=== PATIENT | female | born 1940 | race Caucasian/White ===

== ENCOUNTER → 2017-07-09 16:45 | Outpatient (CLI) | payer MEDICARE, SELFPAY ==
--- NOTE | 2017-07-09 16:51 | US_ITS ---
STUDY: RENAL ULTRASOUND - COMPLETE REASON FOR EXAM: Female, 77 years old. Stage III chronic kidney disease. TECHNIQUE: Ultrasound evaluation of the kidneys was performed with real-time and static falk-scale imaging. COMPARISON: January 21, 2010. FINDINGS: RIGHT KIDNEY: Normal location of the right kidney, which is normal in size. The right kidney measures 9.1 cm. There is a normal cortex of the right kidney. The renal cortex measures 1.2 cm. There is no right renal mass or cyst. There are no right renal calculi. There is no right hydronephrosis. DISTAL RIGHT URETER: There is non-visualization of the distal right ureter. There is no demonstrated right ureterovesical junction calculus. There is no demonstrated right ureteral jet. LEFT KIDNEY: Normal location of the left kidney, which is low normal in size. The left kidney measures 8.9 cm. There is a normal cortex of the left kidney. The renal cortex measures 1.2 cm. There is no left renal mass or cyst. There are no left renal calculi. There is no left hydronephrosis. DISTAL LEFT URETER: There is non-visualization of the distal left ureter. There is no demonstrated left ureterovesical junction calculus. There is no demonstrated left ureteral jet. BLADDER: The urinary bladder is nondistended and cannot be evaluated. There is no demonstrated mass within the urinary bladder. There are no demonstrated bladder calculi. US/Kidney and Bladder IMPRESSION: 1. Low normal size kidneys without mass or change from prior study. 2. Inability to evaluate urinary bladder secondary to nondistention. Electronically Signed: Rafal Cortez DO at 18:58 EDT Tel [phone], Service support ,
== END ==
PROVIDERS: Family Provider Family Medicine; PCP Family Medicine; Visit Provider Internal Medicine Nephrology
DX: N18.3 Chronic kidney disease, stage 3 (moderate) (principal)
CPT/HCPCS: 76770

== ENCOUNTER 2018-08-01 11:31 | Inpatient (IN) | payer MEDICARE, SELFPAY ==
[2018-08-01] VITALS (9 sets, daily range): BP systolic 125–140; BP diastolic 47–63; PULSE 36–44; RESP 16–18; TEMP 36.4–36.8; O2SAT 95–99; BMI 31.4; BMI 31.5
--- NOTE | 2018-08-01 11:49 | EKG12_ITS ---
Test Reason : ADMISSION Blood Pressure : / mmHG Vent. Rate : 036 BPM Atrial Rate : 071 BPM P-R Int : 114 ms QRS Dur : 114 ms QT Int : 632 ms P-R-T Axes : -01 035 040 degrees QTc Int : 488 ms Sinus rhythm with 2nd degree A-V block with 2:1 A-V conduction Incomplete right bundle branch block Abnormal ECG Confirmed by NICA CHAPA, DEREK ([id number]), film and video editor MICHA PIERCE ([id number]) on 08/06/2018 8:18:00 AM Referred By: Derek Brumfield Confirmed By:DEREK BRUMFIELD MD
--- NOTE | 2018-08-01 11:55 | PCM.PN.BLA ---
Progress Note Patient was seen at PCP's office, Dr Garrido on 07/31/2018. She was noted to have a low heart rate. An ECG was obtained and showed complete heart block. She will undergo Pacemaker placement on 08/02/[address] Brumfield. She was asked to hold her Aspirin on 07/31/2018.
--- NOTE | 2018-08-01 13:01 | ECHOD_ITS ---
Reason For Study: ARRHYTHMIA Procedure This was a 2D Doppler, Color Flow transthoracic echocardiogram. Exam performed portable in patient room. Left Ventricle Normal LV size. Left ventricular systolic function is normal. The estimated ejection fraction is 60 %. Stage 2 diastolic dysfunction. No regional wall motion abnormalities noted. Right Ventricle Normal RV size. Normal systolic function. Atria Normal left atrium. Normal right atrium. Mitral Valve There is mild mitral annular calcification. Mild (1+) eccentric mitral valve insufficiency. Tricuspid Valve Normal tricuspid valve. Mild (1+) tricuspid valve insufficiency. Pulmonary artery systolic pressure is 40 mmHg. Aortic Valve Trisinus/trileaflet aortic valve. Pulmonic Valve Normal pulmonic valve. Mild (1+) pulmonic valve insufficiency. Great Vessels Normal aortic root. The pulmonary artery is normal size. Normal inferior vena cava. Pericardium/Pleural No pericardial effusion. MMode/2D Measurements & Calculations LVIDd: 5.0 cm IVSd: 1.0 cm LVOT diam: 2.0 cm LVIDs: 3.0 cm LVPWd: 1.1 cm LVOT area: 3.0 cm2 RVDd: 3.9 cm FS: 39.5 % Ao root diam: 3.7 cm LAV(MOD-bp): 83.3 ml LVAd ap4: 28.7 cm2 LAV(MOD-bp) Indexed: 45.2 ml/m2 EDV(MOD-sp4): 89.1 ml LAV(MOD-sp2): 93.4 ml EDV(sp4-el): 90.0 ml LAV(MOD-sp4): 70.0 ml LVAs ap4: 16.1 cm2 ESV(MOD-sp4): 38.4 ml ESV(sp4-el): 37.9 ml EF(MOD-sp4): 56.9 % EF(sp4-el): 57.9 % SV(MOD-sp4): 50.7 ml SV(sp4-el): 52.2 ml Aortic Valve Planimetry: 1.7 cm2 LA A4 area: 22.0 cm2 LA dimension(2D): 4.3 cm RA A4 area: 18.7 cm2 Time Measurements MV dec time: 0.20 sec Doppler Measurements & Calculations MV E max terry: 102.7 cm/sec Lat Peak E' Terry: 7.7 cm/sec Med Peak E' Terry: 4.5 cm/sec MV A max terry: 128.4 cm/sec E/E' lat: 13.4 E/E' med: 23.1 MV E/A: 0.80 Ao V2 max: 215.3 cm/sec LV V1 max: 110.5 cm/sec SV(LVOT): 91.7 ml Ao max P.5 mmHg LV V1 max P.9 mmHg Ao V2 mean: 149.6 cm/sec LV V1 mean P.6 mmHg Ao mean P.0 mmHg LV V1 mean: 74.1 cm/sec Ao V2 VTI: 54.2 cm LV V1 VTI: 30.6 cm JOSE LUIS(I,D): 1.7 cm2 JOSE LUIS(V,D): 1.5 cm2 PA V2 max: 117.9 cm/sec PI end-d terry: 73.4 cm/sec TR max terry: 294.7 cm/sec TR max P.0 mmHg Interpretation Summary Normal LV size. Left ventricular systolic function is normal. The estimated ejection fraction is 60 %. Stage 2 diastolic dysfunction. Mild (1+) eccentric mitral valve insufficiency. Ordering Physician: Derek Brumfield Referring Physician: JULIO MARY Performed By: Laila Alegre, RDCS, RVT
--- NOTE | 2018-08-01 13:03 | PCM.CONS.C ---
Reason for Consult Date of Consultation: 08/01/18 Reason for Consultation: Slow heart rate History of Present Illness: The patient is a 78 year old F with a history of hypertension who says that she apparently has not been feeling well since the first of the year. She denies any dizziness no brittanie syncope no palpitations no paroxysmal nocturnal dyspnea or pedal edema. She went to her primary physician's office yesterday and was noted to be rather hypertensive. An EKG was done and she was noted to be in a slow heart rhythm. She was therefore called to see me for further recommendations and management. She has not had any previous cardiac history other than hypertension. She denies any claudication. Her electrocardiogram there was faxed to my office demonstrated 2-1 heart block. She was admitted electively to the hospital for permanent pacemaker implantation. [] Past Medical History Allergies/Adverse Reactions: Allergies morphine Allergy (Verified 12/30/16 13:02) Vomiting Home Medications: Ambulatory Orders Medication Instructions Recorded Aspirin [Aspirin, Baby] 81 mg PO DAILY@0800 12/08/16 Erythromycin Ophthalmic 1 applic LEFT EYE QHS 12/08/16 Omeprazole 40 mg PO DAILY 12/08/16 Durezol 0.05 drp INTRAOCULAR .every three 08/01/18 days acyclovir 400 mg tablet 800 mg PO DAILY tab 08/01/18 amlodipine 5 mg tablet 5 mg PO DAILY #30 tab 08/01/18 cholecalciferol (vitamin D3) 2,000 2,000 unit PO DAILY #30 cap 08/01/18 unit capsule hydrochlorothiazide 12.5 mg tablet 12.5 mg PO DAILY #30 tab 08/01/18 Past Medical History (Chronic Problems): Chronic Problems Herpes zoster of eye (Chronic) Vertigo (Chronic) Hypertension (Chronic) Surgical History: no surgical history - *Family History Maternal History Items: - - rheumatoid arthritis Paternal History Items: Heart Disease Smoking Status: Never smoker Alcohol: None Drugs: None Review of Systems - Review of Systems General: Reports: Fatigue, Malaise. Denies: Fever, Night Sweats HEENT: Denies: Vision Change Cardiovascular: Denies: Chest Discomfort, Shortness of Breath, Orthopnea, PND, Peripheral Edema, Palpitations, Lightheadedness, Dizziness, Near Syncope, Syncope Respiratory: Denies: Cough, Sputum Production, Hemoptysis Gastrointestinal: Denies: Indigestion, Hematemesis, Hematochezia, Melena Genitourinary: Denies: Dysuria, Hematuria Muscoloskeletal: Denies: Myalgias Skin: Denies: Rash Neurological: Denies: Dizziness Psychiatric: Denies: Anxiety Endocrine: Denies: Unexplained Weight Loss Hematologic/ Lymphatic: Denies: Anemia Subjectve: Pleasant lady in no apparent distress General: Awake, Alert, Oriented x 3 HEENT: PERRL, EOMI, Sclera Non Icteric Neck: Supple, Good ROM, No Lymph Node Enlargement Lungs: Clear to auscultation Cardiovascular: Regular Rhythm, Normal S1, Normal S2, No Murmurs, No Rubs, No Gallops Vascular: No Carotid Bruits, Normal Femoral Pulses, Normal Radial Pulses, Normal Dorsalis Pedal Pulse, Normal Posterior Tibial Pulses Abdomen: Bowel Sounds Present, Soft, Non Tender, No HSM, No Organomegaly Extremities: No Cyanosis, No Clubbing, No edema Musculoskeletal: No Erythema Skin: No Rashes Lymphatic: No Lymph Node Enlargement Neurological: No Focal Motor or Sensory Deficit Psych/Mental Status: Appropriate Rhythm: EKG: ECHO: Stress Test: Cardiac Cath: PCI: CT Surgery: Holter monitor: EPS: PPM: CXR: Chest CT Scan: Assessment/Plan 1. Mobitz type II heart block Patient presents and is noted to have minimally symptomatic Mobitz type II heart block. She is on no negatively chronotropic agents and my recommendation at this time would be for her to undergo permanent pacemaker implantation. The risk benefits and alternatives have been discussed with her and explained to her she understands and agrees to proceed and the above will be carried out in a.m. All questions appropriately answered and shared decision-making instituted. 2. Hypertension Patient is noted to be hypertensive. Due to the low heart rate I would suggest holding off on her antihypertensive medication. I will like to obtain an echocardiogram to assess her left ventricular function. Her medications were reviewed. Thank you for allowing me to participate in the care of your patient. Please don't hesitate to call if any issues arise
--- NOTE | 2018-08-01 13:07 | CON.PCM_ITS ---
Reason for Consult Date of Consultation: 08/01/18 Reason for Consultation: Slow heart rate History of Present Illness: The patient is a 78 year old F with a history of hypertension who says that she apparently has not been feeling well since the first of the year. She denies any dizziness no brittanie syncope no palpitations no paroxysmal nocturnal dyspnea or pedal edema. She went to her primary physician's office yesterday and was noted to be rather hypertensive. An EKG was done and she was noted to be in a slow heart rhythm. She was therefore called to see me for further recommendations and management. She has not had any previous cardiac history other than hypertension. She denies any claudication. Her electrocardiogram there was faxed to my office demonstrated 2-1 heart block. She was admitted electively to the hospital for permanent pacemaker implantation. [] Past Medical History Allergies/Adverse Reactions: Allergies morphine Allergy (Verified 12/30/16 13:02) Vomiting Home Medications: Ambulatory Orders Medication Instructions Recorded Aspirin [Aspirin, Baby] 81 mg PO DAILY@0800 12/08/16 Erythromycin Ophthalmic 1 applic LEFT EYE QHS 12/08/16 Omeprazole 40 mg PO DAILY 12/08/16 Durezol 0.05 drp INTRAOCULAR .every three 08/01/18 days acyclovir 400 mg tablet 800 mg PO DAILY tab 08/01/18 amlodipine 5 mg tablet 5 mg PO DAILY #30 tab 08/01/18 cholecalciferol (vitamin D3) 2,000 2,000 unit PO DAILY #30 cap 08/01/18 unit capsule hydrochlorothiazide 12.5 mg tablet 12.5 mg PO DAILY #30 tab 08/01/18 Past Medical History (Chronic Problems): Chronic Problems Herpes zoster of eye (Chronic) Vertigo (Chronic) Hypertension (Chronic) Surgical History: no surgical history - *Family History Maternal History Items: - - rheumatoid arthritis Paternal History Items: Heart Disease Smoking Status: Never smoker Alcohol: None Drugs: None Review of Systems - Review of Systems General: Reports: Fatigue, Malaise. Denies: Fever, Night Sweats HEENT: Denies: Vision Change Cardiovascular: Denies: Chest Discomfort, Shortness of Breath, Orthopnea, PND, Peripheral Edema, Palpitations, Lightheadedness, Dizziness, Near Syncope, Syncope Respiratory: Denies: Cough, Sputum Production, Hemoptysis Gastrointestinal: Denies: Indigestion, Hematemesis, Hematochezia, Melena Genitourinary: Denies: Dysuria, Hematuria Muscoloskeletal: Denies: Myalgias Skin: Denies: Rash Neurological: Denies: Dizziness Psychiatric: Denies: Anxiety Endocrine: Denies: Unexplained Weight Loss Hematologic/ Lymphatic: Denies: Anemia Subjectve: Pleasant lady in no apparent distress General: Awake, Alert, Oriented x 3 HEENT: PERRL, EOMI, Sclera Non Icteric Neck: Supple, Good ROM, No Lymph Node Enlargement Lungs: Clear to auscultation Cardiovascular: Regular Rhythm, Normal S1, Normal S2, No Murmurs, No Rubs, No Gallops Vascular: No Carotid Bruits, Normal Femoral Pulses, Normal Radial Pulses, Normal Dorsalis Pedal Pulse, Normal Posterior Tibial Pulses Abdomen: Bowel Sounds Present, Soft, Non Tender, No HSM, No Organomegaly Extremities: No Cyanosis, No Clubbing, No edema Musculoskeletal: No Erythema Skin: No Rashes Lymphatic: No Lymph Node Enlargement Neurological: No Focal Motor or Sensory Deficit Psych/Mental Status: Appropriate Rhythm: EKG: ECHO: Stress Test: Cardiac Cath: PCI: CT Surgery: Holter monitor: EPS: PPM: CXR: Chest CT Scan: Assessment/Plan 1. Mobitz type II heart block * Patient presents and is noted to have minimally symptomatic Mobitz type II heart block. She is on no negatively chronotropic agents and my recommendation at this time would be for her to undergo permanent pacemaker im plantation. The risk benefits and alternatives have been discussed with her and explained to her she understands and agrees to proceed and the above will be carried out in a.m. All questions appropriately answered and shared decision-making instituted. * 2. Hypertension * Patient is noted to be hypertensive. Due to the low heart rate I would suggest holding off on her antihypertensive medication. I will like to obtain an echocardiogram to assess her left ventricular function. Her medications were reviewed. * * Thank you for allowing me to participate in the care of your patient. Please don't hesitate to call if any issues arise
[2018-08-01 13:10] LABS: Hematocrit 36.6 % (37-47); Hemoglobin 11.9 g/dl (12.0-15.0); Mean Corp Hgb Conc 32.5 g/gl (32-36); Mean Corpuscular Hgb 29.3 pg (27.0-32.0); Mean Corpuscular Volume 90.1 fL (81-99); Mean Platelet Vol. 10.9 fl (6.2-12.0); Platelet Count 226 K/mm3 (150-450); RBC Distribution Width CV 13.8 % (11.6-14.6); RBC Distribution Width SD 44.6 fl (35.1-43.9); Red Blood Count 4.06 M/mm3 (4.2-5.4); Scan Indicated on CBC? Y/N NO
[2018-08-01 13:31] LABS: Prothrombin Time (Protime)PT. 13.2 SECONDS (11.7-14.9)
[2018-08-01 13:35] LABS: Anion Gap 9 (5-15); BUN 23 mg/dL (7-18); BUN/Creat Ratio 16.9 RATIO (10-20); Calcium,Total 9.1 mg/dL (8.5-10.1); Chloride 107 mmol/L (98-107); Creatinine, Serum 1.36 mg/dL (0.55-1.02); EST Glomerular Filtration Rate 40 mL/min (>60); Est Glom Filt Rate - Afr Amer 48 mL/min (>60); Glucose 103 mg/dL (74-106); Potassium 4.7 mmol/L (3.5-5.1); Sodium Level 142 mmol/L (136-145)
--- NOTE | 2018-08-01 14:30 | RAD_ITS ---
HISTORY: CHF, pre pacemaker EXAM: XR Chest 2 Views COMPARISON: 12/08/16 chest radiographs. FINDINGS: LINES/DEVICES: None. LUNGS: There are chronic interstitial changes. No pneumothorax. No consolidation or effusion. MEDIASTINUM AND CARDIOVASCULAR STRUCTURES: Cardiac silhouette not enlarged. Central airways and mediastinal contour are unremarkable. BONES AND SOFT TISSUES: Unremarkable. RAD/Chest PA and Lateral IMPRESSION: Chronic interestitial changes. No radiographic evidence of acute cardiopulmonary disease. at 0252 Reported and signed by: Kevin Michelle MD Electronically Signed: Kevin Michelle, at 2:50 EDT Tel , Service support ,
[2018-08-01 15:13] LABS: Bacteria 0 SEEN /hpf (None Seen); Mucous, Urine 0 SEEN /hpf (<or=2+); Red Blood Cells-Urine 0 SEEN /hpf (0-5)
[2018-08-01 15:14] LABS: Color, Urine Yellow (Yellow); Glucose, Dipstick Normal (Normal); Ketone-Dipstick Negative (Negative); Leukocyte Esterase-Dipstick 25 /ul (Negative); Nitrite-Dipstick Negative (Negative); Occult Blood-Urine 25 /ul (Negative); Protein-Dipstick Negative (Negative); Urine Bilirubin Dipstick Negative (Negative); Urine Clarity Clear (Clear); Urine Urobilinogen Normal (Normal)
[2018-08-01 15:32] LABS: Squamous Epithelial Cells - UA 0-5 SEEN /hpf (5-10); White Blood Cells 0-5 SEEN /hpf (0-5)
[2018-08-01] MEDS: 0.9% Normal Saline 1,000 ML 15 ML IV (17:11)
[2018-08-01] MEDS: 0.9% NaCl Peripheral Flush Adult/Peds IV (17:12)
[2018-08-01 17:45] LABS: M R Staph aureus DNA By PCR Negative (Negative); Probe Check PASS; Specimen Processing Control PASS
[2018-08-02] VITALS (18 sets, daily range): BP systolic 122–158; BP diastolic 41–100; PULSE 32–81; RESP 14–77; TEMP 36.6–36.9; O2SAT 75–100
[2018-08-02 05:16] LABS: Absolute Lymphocyte Count 2.47 X10^3/ul (0.83-4.51); Absolute Neutrophil Count 4.8 X10^3/uL (2.0-7.7); Basophil# 0.02 X10^3/uL; Basophil% 0.2 % (0-1); Eosinophil# 0.41 X10^3/uL; Hematocrit 33.8 % (37-47); Lymphocyte # 2.47 X10^3/ul (4.0); Lymphocyte % 30.1 % (19-41); Mean Corp Hgb Conc 32.5 g/gl (32-36); Mean Corpuscular Hgb 29.5 pg (27.0-32.0); Mean Corpuscular Volume 90.6 fL (81-99); Monocyte# 0.54 X10^3/uL; Monocyte% 6.6 % (0-10); Neutrophil # 4.75 X10^3/uL (2.7-7.7); Platelet Count 210 K/mm3 (150-450); RBC Distribution Width CV 13.9 % (11.6-14.6); Red Blood Count 3.73 M/mm3 (4.2-5.4); White Blood Count 8.2 K/mm3 (4.4-11.0)
[2018-08-02 05:25] LABS: Anion Gap 8 (5-15); BUN 19 mg/dL (7-18); Calcium,Total 8.8 mg/dL (8.5-10.1); Chloride 110 mmol/L (98-107); Creatinine, Serum 1.27 mg/dL (0.55-1.02); EST Glomerular Filtration Rate 43 mL/min (>60); Est Glom Filt Rate - Afr Amer 52 mL/min (>60); Estimated Creatinine Clearance 29.71 ml/min; Glucose 94 mg/dL (74-106); Sodium Level 144 mmol/L (136-145)
[2018-08-02 05:26] LABS: International Normalized Ratio 1.1; Prothrombin Time (Protime)PT. 13.7 SECONDS (11.7-14.9)
[2018-08-02 05:27] LABS: Partial Thromboplast Time 28.5 Seconds (24.1-36.2)
[2018-08-02 05:37] LABS: POSITIVE COUNT NO; POSITIVE DIFFERENTIAL NO; POSITIVE MORPHOLOGY NO
--- NOTE | 2018-08-02 05:55 | EKG12_ITS ---
Test Reason : AM EKG Blood Pressure : / mmHG Vent. Rate : 033 BPM Atrial Rate : 066 BPM P-R Int : 140 ms QRS Dur : 122 ms QT Int : 610 ms P-R-T Axes : 042 040 054 degrees QTc Int : 451 ms Sinus rhythm with 2nd degree A-V block with 2:1 A-V conduction Right bundle branch block Abnormal ECG When compared with ECG of 01-AUG-2018 13:03, MANUAL COMPARISON REQUIRED, DATA IS UNCONFIRMED Confirmed by NICA CHAPA, DEREK ([id number]), technical writer and editor MICHA PIERCE ([id number]) on 08/06/2018 8:15:57 AM Referred By: Derek Brumfield Confirmed By:DEREK BRUMFIELD MD
[2018-08-02] MEDS: 0.9% Normal Saline 1,000 ML 60 ML IV (08:08)
--- NOTE | 2018-08-02 11:58 | CASEMGMT ---
This RN CM attempted to complete CM assessment as pt is now inpt at this time but pt is getting pacer placed at 1200. Will attempt again later, if able. SStaten MANAS CM
--- NOTE | 2018-08-02 14:30 | CL.IE_ITS ---
Patient: SOHAIL ALCARAZ Study Date: 08/02/2018 Performing: Derek Brumfield MD : [id number] Age: 78 Gender: female PROCEDURES PERFORMED [id number] PACER INSERT+DUAL LEADS INDICATIONS Mobitz (type II) AV block PROCEDURE DETAILS The patient was brought to the Catheterization Lab in the postabsorptive nonsedated state. Infor med consent was obtained prior to the procedure. Local anesthetic was given subcutaneously to the le ft subclavian region with Lidocaine 2%. Access was achieved and a guidewire was advanced into the lef t subclavian vein. Incision was made to the left subclavicular area. A peel-away sheath was inserted into the left subclavian vein. PPM ventricular lead was inserted / positioned to right ventricular ap ex. PPM ventricular lead testing performed. PPM ventricular lead testing performed. The sheath was th en removed. A peel-away sheath was inserted into the left subclavian vein. PPM atrial lead was insert ed / positioned to the right atrial appendage. PPM atrial lead testing performed. The sheath was then removed. The Atrial lead sutured in place with 3-0 Silk. The Ventricular PM lead sutured in place wi th 3-0 Silk. Device pocket was irrigated with antibiotic. PPM generator was attached to the lead(s) and inserted into the pocket. PPM generator was then interrogated by the tool programmer. Subc utaneous closure was completed with 3-0 Vicryl. Skin closure was completed with 4-0 Vicryl. Steri-str ips applied to left subclavicular incision. Instrument, sponge, and needle counts were noted to be no rmal. The patient tolerated the procedure well. Estimated Blood Loss: 10 ml's IMPLANTED / EX-PLANTED DEVICES IMPLANTED DEVICE(S): PPM Ventricular lead - Dental Manager: [place] [employer], Model # [id number] 52 cm , Serial # [id number] PPM Atrial lead - Dental Manager: [place] [employer], Model # 7740 45 cm , Serial # [id number] PPM Generator - Dental Manager: .[employer], Model # [id number] , Serial # [id number] DEVICE PARAMETERS ATRIAL LEAD PARAMETERS: P wave- 3.1 (mV) Current- 0.9 (mA) threshold- 0.6 (V) impedence- 723 (OHMS) VENTRICULAR LEAD PARAMETERS: Current- 0.5 (mA) threshold- 0.4 (V) impedence- 844 (OHMS) R wave- 12.2 (mV) DEVICE PARAMETERS: Mode- DDD Lower rate- 60 Upper rate- 130 CONCLUSIONS / RECOMMENDATIONS Device Conclusions: Successful implantation of a dual chamber pacemaker Device Recommendations: Follow up with Primary Care Physician PROCEDURE MEDICATIONS Versed 1 mg IV Fentanyl 25 mcg IV Fentanyl 25 mcg IV Oxygen: 2 L/min via nasal cannula Signed By Derek Brumfield MD On 08/02/2018 14:29:08 Derek Brumfield MD
[2018-08-03 03:00] VITALS: PULSE 74
[2018-08-03 03:18] VITALS: BP 152/84; PULSE 68; RESP 18; TEMP 36.7; O2SAT 96
[2018-08-03 03:30] VITALS: O2SAT 96
--- NOTE | 2018-08-03 04:50 | RAD_ITS ---
HISTORY: post pacemaker complete heart block pneumothoraxpt unable to lift lt arm EXAM:XR Chest 2 Views COMPARISON: 08/01/2018 FINDINGS: EKG leads in place. Left subclavian dual-chamber transvenous pacemaker with electrode tips in the region of the right atrium and right ventricle. No pneumothorax. Borderline cardiomegaly. Chronic lung disease with upper lobe emphysema and bilateral interstitial fibrosis, worse within the mid and lower lung zones. Biapical stable mild scarring. No acute infiltrate. No vascular congestion or pleural effusion. Atherosclerotic thoracic aorta. RAD/Chest PA and Lateral IMPRESSION: 1. The pacemaker electrodes appear in appropriate position. Negative for pneumothorax. 2. Chronic lung disease with emphysema and interstitial fibrosis. No definite acute disease. at 0544 Reported and signed by: Jim Muñoz MD Electronically Signed: Jim Muñoz, at 5:43 EDT Tel , Service support ,
[2018-08-03 07:01] VITALS: PULSE 72
[2018-08-03 09:15] VITALS: BP 157/80; PULSE 78; RESP 16; TEMP 36.5; O2SAT 94
--- NOTE | 2018-08-03 09:17 | PN.CARD_ITS ---
Subjectve: Patient seen and evaluated. Appears to be doing well. Objective: Vital Signs Temp Pulse Resp BP Pulse Ox 98.0 F 72 18 152/84 H 96 08/03/18 03:18 08/03/18 07:01 08/03/18 03:18 08/03/18 03:18 08/03/18 03:30 Oxygen Delivery Method Room Air Weight: 177 lb 11.081 oz Body Mass Index (BMI) 31.4 Intake and Output for Last 24 Hours 08/01/18 08/02/18 08/03/18 23:59 23:59 23:59 Intake Total 298 / 298 218 / 218 Balance 298 / 298 218 / 218 General: Awake, Alert, Oriented x 3 HEENT: PERRL, EOMI, Sclera Non Icteric Neck: Supple, Good ROM, No Lymph Node Enlargement Lungs: Clear to auscultation Cardiovascular: Regular Rhythm, Normal S1, Normal S2, No Murmurs, No Rubs, No Gallops Vascular: No Carotid Bruits, Normal Femoral Pulses, Normal Radial Pulses, Normal Dorsalis Pedal Pulse, Normal Posterior Tibial Pulses Abdomen: Bowel Sounds Present, Soft, Non Tender, No HSM, No Organomegaly Extremities: No Cyanosis, No Clubbing, No edema Musculoskeletal: No Erythema Skin: No Rashes Lymphatic: No Lymph Node Enlargement Neurological: No Focal Motor or Sensory Deficit Rhythm: EKG: ECHO: Stress Test: Cardiac Cath: PCI: CT Surgery: Holter monitor: EPS: PPM: CXR: Chest CT Scan: Medical Necessity - Tobacco Use Smoking Status: Never smoker Assessment/Plan 1. Mobitz type II heart block * Patient presents and is noted to have minimally symptomatic Mobitz type II heart block. * She underwent permanent pacemaker implantation uneventfully. Chest x-ray demonstrates adequate placement of the pacemaker and the pacemaker was interrogated today and noted to be functioning well. She will be discharged for outpatient follow-up on August 09 at 10 AM. 2. Hypertension * Patient is noted to be hypertensive. Her ejection fraction was noted to be normal and she will continue with her antihypertensive medications when she goes home. * * Thank you for allowing me to participate in the care of your patient. Please don't hesitate to call if any issues arise
--- NOTE | 2018-08-03 09:19 | DCINST_ITS ---
Discharge Diet: No Restrictions Discharge Activity: May Not Drive Call your doctor if your incision/area has: Continuous Slow Oozing, Sudden Increased Bleeding, Increased Pain/ Swelling, Increased Redness, Foul Smelling Discharge, Swelling at the incision site Call your doctor if you observe: Fever of 101 or Higher, Shortness of breath, Dizziness, Fainting spells, Swelling in the ankles, Chest pain, Prolonged hiccoughing, Increased palpitations (irregular heartbeat) Suture Line Care: Avoid Pulling/Pushing, Avoid Pinching/Bending Cleanse incision/area with: Do not get Incision Wet, Keep Dressing Clean & Dry Additional Dressing/Incision Instructions:: When dressing is removed, wash and dry incision. Keep covered with a light bandage if it is rubbing against your clothing. Do not cover the incision with an airtight bandage. Change the bandage daily. Do not remove steri strips. The strips will fall off on their own. Additional Instructions: Signs and Symptoms to Report to Your Doctor at Once - call your doctor's office or Doctor's Registry ([phone]) Call 911 or go to the nearest Emergency Department if you feel you need urgent care. *Infection (fever, increased redness or swelling at the incision site, drainage from the incision increased pain at the pacemaker site) *Shortness of breath *Dizziness *Fainting spells *Swelling in the ankles *Chest pain *Prolonged hiccoughing *Increased palpitaitons (irregular heartbeat) Medications: Take your pain medication as directed. Refer to your discharge instruction sheet for a list of medications you are to take. Allergies/Adverse Reactions: Allergies morphine Allergy (Verified 12/30/16 13:02) Vomiting Medications to take at Discharge Aspirin [Aspirin, Baby] 81 mg PO DAILY@0800 12/08/16 Erythromycin Ophthalmic 1 applic LEFT EYE QHS 12/08/16 Omeprazole 40 mg PO DAILY 12/08/16 Durezol 0.05 drp INTRAOCULAR .every three days 08/01/18 Meclizine HCl 25 mg PO TID PRN PRN 08/01/18 Propylene Glycol [Systane Balance] 2 drop LEFT EYE 4X/DAY PRN PRN 08/01/18 acyclovir 400 mg tablet 800 mg PO DAILY tab 08/01/18 cholecalciferol (vitamin D3) 2,000 unit capsule 2,000 unit PO DAILY #30 cap 08/01/18 hydrochlorothiazide 12.5 mg tablet 12.5 mg PO DAILY #30 tab 08/01/18 Primary Care Physician: Conor Garrido III, MD [Primary Care Provider] - Test Results: Test results from this visit will be discussed in further detail at your follow- up appointment, if applicable. When: pacer clinic at 10 am Proposed Discharge Date: 08/03/18
== END 2018-08-03 10:14 | disposition home or self-care (01) | DRG 244 ==
PROVIDERS: Nurse Practitioner Family; Admitting Provider Internal Medicine Cardiovascular Disease; Family Provider Family Medicine; PCP Family Medicine; Referring Provider Internal Medicine Cardiovascular Disease; Visit Provider Internal Medicine Cardiovascular Disease
DX: I44.1 Atrioventricular block, second degree; I10 Essential (primary) hypertension
CPT/HCPCS: 33208; 36415; 71046; 80048; 81001; 85025; 85027; 85610; 85730; 87641; 93005; 93306; 99152; 99153; J7030; J7050; A4216; C1894

== ENCOUNTER 2018-11-16 08:35 | Inpatient (IN) | payer MEDICARE, SELFPAY ==
[2018-09-13 09:01] VITALS: BMI 30.6
[2018-11-16] VITALS (30 sets, daily range): BP systolic 96–165; BP diastolic 48–99; PULSE 67–110; RESP 11–28; TEMP 36.3–36.9; O2SAT 95–100; BMI 28.8; BMI 68.7
[2018-11-16] MEDS: 0.9% Normal Saline 1,000 ML 150 ML IV (08:40)
--- NOTE | 2018-11-16 08:40 | EKG12_ITS ---
Test Reason : REPEAT Blood Pressure : / mmHG Vent. Rate : 092 BPM Atrial Rate : 092 BPM P-R Int : 140 ms QRS Dur : 088 ms QT Int : 382 ms P-R-T Axes : 044 026 034 degrees QTc Int : 472 ms Atrial-sensed ventricular-paced rhythm Abnormal ECG Lateral Ischemia Confirmed by NICA CHAPA, MARCIAL ([id number]), loan expeditor HECTOR YOUNG ([id number]) on 11/18/2018 1:42:32 PM Referred By: Delon Longoria Confirmed By:MARCIAL YOUSIF MD
--- NOTE | 2018-11-16 08:41 | ED.VIS.CHEST ---
History of Present Illness Chief Complaint: Chest Pain Informant: Patient Onset: - - Patient reports intermittent mild heaviness for the past couple days, but heaviness significantly worse this morning. Timing: Waxes and wanes Quality: Heaviness Location: Substernal Current Severity: Severe Maximum Severity: Severe Worsened By: Nothing Relieved By: Nothing Associated Symptoms: Cough. Negative for: Dyspnea Narrative: Patient has history of pacemaker placement secondary to low heart rate. She denies history of coronary disease or cardiac stent. She states she is been having chest heaviness for the past couple of days that is been mild and waxes and wanes. This morning she had worsened chest heaviness. She denies shortness of breath. Daughter states she was coughing and had dry heaves in the car, but feels it was more likely secondary to anxiety. Prior Similar Symptoms: No CVD Risk Factors: Hypertension - Past Medical History (1) Essential (primary) hypertension Status: Chronic (2) Mobitz (type) II atrioventricular block Status: Chronic (3) Presence of permanent cardiac pacemaker Status: Chronic Comment: PPM Ventricular lead - Blankbook Forwarder: Fashion To Figure, Model # 7741 52 cm , Serial # [id number] PPM Atrial lead - Blankbook Forwarder: Fashion To Figure, Model # 7740 45 cm , Serial # [id number] PPM Generator - Blankbook Forwarder: Fashion To Figure, Model # [id number] , Serial # [id number] Past Medical History - Allergies and Home Meds Allergies/Adverse Reactions: Allergies morphine Allergy (Verified 09/13/18 09:02) Vomiting Primary Care Physician: Conor Garrido III, MD [Primary Care Provider] - Doctors: Dr. Brumfield Prior records reviewed: Yes Past Medical History: - - Reviewed Surgical History: no surgical history Smoking Status: Never smoker - Family History Maternal Family History: Family History (Last Reviewed 09/13/18 @ 09:47 by Derek Brumfield MD) Father Heart disease Family History: Reports: - - rheumatoid arthritis Paternal Family History: Family History (Last Reviewed 09/13/18 @ 09:47 by Derek Brumfield MD) Father Heart disease Family History: Reports: Heart Disease Review of Systems General: Denies: Chills, Fever Eyes: Denies: Visual changes - left, Visual changes - right ENT: Denies: Bilateral ear pain Cardiovascular: Reports: Chest pain. Denies: Palpitations, Heart racing Respiratory: Reports: Cough. Denies: Dyspnea, Sputum Gastrointestinal: Reports: Nausea. Denies: Abdominal pain, Vomiting Genitourinary: Denies: Dysuria Musculoskeletal: Denies: Arthralgias, Neck pain Skin: Denies: Rash Neurological: Denies: Headache Endocrine: Denies: Polyuria, Polydipsia Hematologic: Denies: Easy bruising Allergy: Denies: Uticaria Physical Exam Vital Signs/Narrative: Vital Signs Temp Pulse Resp BP Pulse Ox 11/16/18 08:35 97.4 F L 110 H 28 H 163/95 H 96 Inital Vital Signs reviewed: Yes General: Well nourished, Well developed Head: Normocephalic Eyes: Perrl, EOMI ENT: Moist mucous membranes Neck: Supple Cardiovascular: Tachycardia Respiratory: No distress, CTA bilaterally - Tachypneic Abdomen: Soft, Nontender Extremities: Nontender, No edema Skin: Normal color, No rash Neurological: Alert, Oriented x3 Psychological: - - Anxious Diagnostic/Tx/Re-eval Impressions Chest X-Ray 11/16/18 08:45 IMPRESSION: Degenerative changes, as described above. No demonstrated acute cardiopulmonary process. Electronically Signed: Cale Alvarado MD at 9:15 EDT , Service support , 11/16/18 08:45 Chest 1 View (Portable) [RAD] Stat Laboratory Results 11/16/18 11/16/18 08:45 08:45 WBC 10.6 RBC 4.41 Hgb 13.2 Hct 38.7 MCV 87.8 MCH 29.9 MCHC 34.1 RDW Std Deviation 42.8 RDW Coeff of Sakina 13.3 Plt Count 271 MPV 10.0 Immature Gran % (Auto) 0.400 Neut % (Auto) 55.1 Lymph % (Auto) 33.1 [place] % (Auto) 5.5 Eos % (Auto) 5.6 H Baso % (Auto) 0.3 Absolute Neuts (auto) 5.8 Absolute Lymphs (auto) 3.50 Absolute Nucleated RBC 0.00 Nucleated RBC % 0 Sodium 135 L Potassium 3.3 L Chloride 103 Carbon Dioxide 23.0 Anion Gap 9 BUN 19 H Creatinine 1.31 H Estim Creat Clear Calc 33.86 Est GFR (MDRD) Af Amer 50 L Est GFR (MDRD) Non-Af 42 L BUN/Creatinine Ratio 14.5 Glucose 171 H Calcium 9.6 Troponin I 0.121 H - EKG Initial EKG Interpretation: - - Atrial paced at 106 with borderline right bundle branch block. No obvious ST elevation noted. Follow-up EKG Interpretation: Sinus Rhythm - Repeat EKG reveals what appears to be bigeminy with ST elevation in the anterior leads. - Medical Decision Making Patient was initially given fentanyl, Zofran, and aspirin. She reported some improvement in the chest heaviness. When her troponin came back indeterminate I ordered a second EKG and spoke with cardiology. Second EKG had concerns for ST elevation in the anterior leads and STEMI alert was called. Dr. Longoria presented to the emergency room. Appears the patient is in bigeminy with the PVCs having elevation. He spoke with the patient at bedside. Third EKG was performed at that time and show some elevation in V2 as well as in the high lateral leads. He will take the patient emergently to the Staff Software Engineer. Dr. Hurst is at bedside as well. ED Disposition - Plan for ED Patient: Disposition: Acute Care Hospital [facility] Diagnosis: STEMI (ST elevation myocardial infarction) Referrals: Conor Garrido III, MD [Primary Care Provider] -
--- NOTE | 2018-11-16 08:45 | RAD_ITS ---
STUDY: X-RAY CHEST REASON FOR EXAM: Female, 78 years old. Chest pain TECHNIQUE: Single AP portable view of the chest. COMPARISON: August 03, 2018 FINDINGS: There is stable pacemaker device on the left. There are monitoring devices. There are interstitial fibrotic changes of the lungs. There is no demonstrated pleural abnormality. Normal size heart. Normal mediastinum and gilles. Normal visualized pulmonary arteries. Normal visualized aortic arch and descending thoracic aorta. There is demineralization of the osseous structures. Normal visualized ribs, clavicles, and shoulders. There is no demonstrated abnormality of the visualized soft tissue structures of the upper abdomen. RAD/Chest 1 View (Portable) IMPRESSION: Degenerative changes, as described above. No demonstrated acute cardiopulmonary process. Electronically Signed: Cale Alvarado MD at 9:15 EDT , Service support ,
[2018-11-16 08:55] LABS: Absolute Neutrophil Count 5.8 X10^3/uL (2.0-7.7); Basophil# 0.03 X10^3/uL; Basophil% 0.3 % (0-1); Eosinophil# 0.59 X10^3/uL; Eosinophils% 5.6 % (0-5); Hematocrit 38.7 % (37-47); Hemoglobin 13.2 g/dL (12.0-15.0); Lymphocyte % 33.1 % (19-41); Mean Corp Hgb Conc 34.1 g/dL (32-36); Mean Corpuscular Hgb 29.9 pg (27.0-32.0); Mean Corpuscular Volume 87.8 fL (81-99); Monocyte# 0.58 X10^3/uL; Monocyte% 5.5 % (0-10); NRBC Flagged by Analyzer 0 % (0-5); Neutrophil # 5.84 X10^3/uL (2.7-7.7); Neutrophil % 55.1 % (47-70); Platelet Count 271 K/mm3 (150-450); RBC Distribution Width CV 13.3 % (11.6-14.6); RBC Distribution Width SD 42.8 fl (35.1-43.9); Red Blood Count 4.41 M/mm3 (4.2-5.4); White Blood Count 10.6 K/mm3 (4.4-11.0)
[2018-11-16] MEDS: fentaNYL 100 MCG/2 ML Ampul 25 MCG IV (08:57)
[2018-11-16] MEDS: Ondansetron 4 MG/2 ML Vial IV (08:57)
[2018-11-16] MEDS: Aspirin 81 MG TAB.CHEW 324 MG PO (08:57)
[2018-11-16 09:13] LABS: Anion Gap 9 (5-15); BUN 19 mg/dL (7-18); BUN/Creat Ratio 14.5 RATIO (10-20); Calcium,Total 9.6 mg/dL (8.5-10.1); Chloride 103 mmol/L (98-107); Creatinine, Serum 1.31 mg/dL (0.55-1.02); EST Glomerular Filtration Rate 42 mL/min (>60); Est Glom Filt Rate - Afr Amer 50 mL/min (>60); Estimated Creatinine Clearance 33.86 ml/min; Glucose 171 mg/dL (74-106); Potassium 3.3 mmol/L (3.5-5.1); Sodium Level 135 mmol/L (136-145)
--- NOTE | 2018-11-16 09:25 | EKG12_ITS ---
Test Reason : Blood Pressure : / mmHG Vent. Rate : 088 BPM Atrial Rate : 088 BPM P-R Int : 120 ms QRS Dur : 114 ms QT Int : 436 ms P-R-T Axes : 000 088 -13 degrees QTc Int : 527 ms Sinus rhythm with frequent ventricular-paced complexes and Premature supraventricular complexes in a pattern of bigeminy Low voltage QRS Anterolateral infarct , possibly acute Marked ST abnormality, possible inferior subendocardial injury Prolonged QT ACUTE ND / STEMI Abnormal ECG Confirmed by NICA CHAPA, MARCIAL ([id number]), web editor HECTOR YOUNG ([id number]) on 11/18/2018 1:43:38 PM Referred By: Delon Longoria Confirmed By:MARCIAL YOUSIF MD
--- NOTE | 2018-11-16 09:25 | ED.RN ---
pt pain continues after fentanyl. new orders received. call for new ekg.
[2018-11-16] MEDS: Nitroglycerin SL (ED/IMG/CATH) 0.4 MG TABLET SUBLINGUAL ×2 (09:30→09:37)
--- NOTE | 2018-11-16 09:40 | CASEMGMT ---
According to the [facility] website, the following are in-network tertiary facilities: [facility], [place], [facility], [facility], [facility], [facility], and . Deepali MALAGON CM
[2018-11-16 09:42] LABS: Partial Thromboplast Time 26.2 Seconds (24.1-36.2)
--- NOTE | 2018-11-16 09:44 | ED.RN ---
0930- nitroglycerin tab sl given. pain decreased 0937 second nitro given. pain free
[2018-11-16] MEDS: HEPARIN/D5w 25,000 UNITS 25,000 UNITS/250 ML IV.SOLN. 12 UNITS IV (09:51)
[2018-11-16] MEDS: Heparin Injection (Vial) 5,000 UNIT/ML VIAL 6000 UNIT IV (09:51)
[2018-11-16] MEDS: TICAGRELOR 90 MG TABLET 180 MG PO (09:57)
--- NOTE | 2018-11-16 10:09 | EKG12_ITS ---
Test Reason : AM Blood Pressure : / mmHG Vent. Rate : 068 BPM Atrial Rate : 068 BPM P-R Int : 132 ms QRS Dur : 112 ms QT Int : 488 ms P-R-T Axes : 016 066 118 degrees QTc Int : 518 ms Electronic ventricular pacemaker When compared with ECG of 16-NOV-2018 11:41, MANUAL COMPARISON REQUIRED, DATA IS UNCONFIRMED Confirmed by NICA CHAPA, MARCIAL ([id number]), sports editor HECTOR YOUNG ([id number]) on 11/19/2018 2:03:02 PM Referred By: Delon Longoria Confirmed By:MARCIAL YOUSIF MD
--- NOTE | 2018-11-16 10:29 | ED.RN ---
UPON MEDICATING PATIENT, SHE STATES THAT SHE IS UNABLE TO TAKE PILLS LARGE THE POTASSIUM PILLS.
--- NOTE | 2018-11-16 11:22 | PCM.CONS.C ---
Problem List (1) STEMI (ST elevation myocardial infarction) Status: Acute Qualifiers: Involved coronary artery: LAD coronary artery Qualified Code(s): I21.02 - ST elevation (STEMI) myocardial infarction involving left anterior descending coronary artery Reason for Consult Date of Consultation: 11/16/18 History of Present Illness: The patient is a 78 year old F with past medical history significant for sick sinus syndrome status post permanent pacemaker placement and hypertension. She presented to the emergency room with complaints of anterior chest heaviness. According to her, she has been having intermittent chest discomfort over the last couple of days but it was constant this morning therefore she sought help in the emergency room. She describes the discomfort as heaviness. No radiation to the arm neck or jaw. No associated shortness of breath. Her first EKG was no unremarkable for acute injury. However the second EKG showed ST elevations in high lateral leads. Subsequently a STEMI alert was called. [] Past Medical History Allergies/Adverse Reactions: Allergies morphine Allergy (Verified 09/13/18 09:02) Vomiting Home Medications: Ambulatory Orders Medication Instructions Recorded Aspirin [Aspirin, Baby] 81 mg PO DAILY@0800 12/08/16 Erythromycin Ophthalmic 1 applic LEFT EYE QHS 12/08/16 Omeprazole 40 mg PO DAILY 12/08/16 Durezol 0.05 drp INTRAOCULAR .every three 08/01/18 days Meclizine HCl 25 mg PO TID PRN PRN 08/01/18 Propylene Glycol [Systane Balance] 2 drp LEFT EYE 4X/DAY PRN PRN 08/01/18 acyclovir 400 mg tablet 800 mg PO DAILY tab 08/01/18 cholecalciferol (vitamin D3) 2,000 2,000 unit PO DAILY #30 cap 08/01/18 unit capsule hydrochlorothiazide 12.5 mg tablet 12.5 mg PO DAILY #30 tab 08/01/18 amlodipine 5 mg tablet 5 mg PO DAILY 90 Days #90 tab 09/13/18 Past Medical History (Chronic Problems): Chronic Problems (Last Reviewed 09/13/18 @ 09:47 by Derek Brumfield MD) Mobitz (type) II atrioventricular block (Chronic) 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) PPM Ventricular lead - Woven Wood Shade Assembler: Madison Svpply, Model # 7741 52 cm , Serial # [id number] PPM Atrial lead - Woven Wood Shade Assembler: Madison Svpply, Model # 7740 45 cm , Serial # [id number] PPM Generator - Woven Wood Shade Assembler: Medialive, Model # L111 , Serial # [id number] Essential (primary) hypertension (Chronic) Surgical History: no surgical history - *Family History Maternal Family History: Family History (Last Reviewed 09/13/18 @ 09:47 by Derek Brumfield MD) Father Heart disease History Items: - - rheumatoid arthritis Paternal Family History: Family History (Last Reviewed 09/13/18 @ 09:47 by Derek Brumfield MD) Father Heart disease History Items: Heart Disease Smoking Status: Never smoker Review of Systems - Review of Systems General: Denies: Fever, Chills HEENT: Denies: Head Aches Cardiovascular: Reports: Chest Discomfort at Rest, Chest Discomfort with Exertion. Denies: Shortness of Breath, Shortness of Breath at Rest, Shortness of Breath with Exertion, Orthopnea, PND, Peripheral Edema, Palpitations Respiratory: Denies: Cough, Hemoptysis Gastrointestinal: Denies: Jaundice, Nausea, Emesis Neurological: Reports: History of CVA. Denies: History of TIA Hematologic/ Lymphatic: Denies: Easy Brusing, Easy Bleeding Subjectve: Appeared mildly anxious Objective: Vital Signs Temp Pulse Resp BP Pulse Ox 97.4 F L 95 20 H 137/99 H 98 11/16/18 08:35 11/16/18 09:43 11/16/18 09:43 11/16/18 09:43 11/16/18 09:43 Oxygen Flow Rate (L/min) 2 Oxygen Delivery Method Nasal Cannula Weight: 83.4 kg Body Mass Index (BMI) 28.8 General: Awake, Alert, Oriented x 3 HEENT: Atraumatic, Normocephalic Oral: Moist Mucosa Neck: Supple, No JVD Lungs: Clear to auscultation Cardiovascular: Regular Rhythm, Normal S1, Normal S2 Abdomen: Bowel Sounds Present, Soft Extremities: No edema Neurological: CN II-XII Intact Psych/Mental Status: Appropriate 11/16/18 08:45: WBC 10.6, RBC 4.41, Hgb 13.2, Hct 38.7, MCV 87.8, MCH 29.9, MCHC 34.1, Plt Count 271, MPV 10.0, Immature Gran % (Auto) 0.400, Neut % (Auto) 55.1, Lymph % (Auto) 33.1, [place] % (Auto) 5.5, Eos % (Auto) 5.6 H, Baso % (Auto) 0.3, Absolute Neuts (auto) 5.8, Nucleated RBC % 0 11/16/18 08:45: Sodium 135 L, Potassium 3.3 L, Chloride 103, Carbon Dioxide 23.0, Anion Gap 9, BUN 19 H, Creatinine 1.31 H, Est GFR (MDRD) Af Amer 50 L, Est GFR (MDRD) Non-Af 42 L, BUN/Creatinine Ratio 14.5, Glucose 171 H, Calcium 9.6, Troponin I 0.121 H 11/16/18 08:45: APTT 26.2 Rhythm: Normal sinus rhythm EKG: Normal sinus rhythm. Second EKG done in the emergency room showed ST elevations in high lateral leads consistent with acute lateral myocardial infarction ECHO: Stress Test: Cardiac Cath: PCI: CT Surgery: Holter monitor: EPS: PPM: CXR: Chest CT Scan: Assessment/Plan 1. Acute ST elevation myocardial infarction. Patient was advised emergent coronary angiography and possible revascularization. After obtaining informed consent, patient was brought to the cardiac catheterization lab. Angiography revealed subtotal occlusion in the mid left anterior descending artery with VIANEY II flow. 90 to 95% lesion was also noted in the proximal left circumflex. Successful percutaneous intervention was performed to the left anterior descending artery and the proximal left circumflex coronary artery. Excellent results were noted. At 3.0 x 17 mm drug-eluting stent was deployed to the mid LAD and a 2.5 x 8 mm drug-eluting stent was deployed to the proximal left circumflex. 2. Patient has about 70% lesion in the mid RCA. Consider staged intervention as an outpatient. 3. Aspirin lifelong. Brilinta treatment for at least 1 year. 4. Overall left ventricular systolic ejection fraction 35 to 40%. Start on beta-blockers. Start on REMI inhibitors. 5. History of hypertension. 6. Check lipid profile. Start on statins. 7. History of sick sinus syndrome status post permanent pacemaker placement.
--- NOTE | 2018-11-16 11:29 | EKG12_ITS ---
Test Reason : CP Blood Pressure : / mmHG Vent. Rate : 106 BPM Atrial Rate : 106 BPM P-R Int : 130 ms QRS Dur : 096 ms QT Int : 368 ms P-R-T Axes : 066 042 019 degrees QTc Int : 488 ms Atrial-sensed ventricular-paced rhythm Abnormal ECG Confirmed by NICA CHAPA, MARCIAL ([id number]), order editor HECTOR YOUNG ([id number]) on 11/18/2018 1:44:11 PM Referred By: Delon Longoria Confirmed By:MARCIAL YOUSIF MD
--- NOTE | 2018-11-16 11:31 | ECHOD_ITS ---
Reason For Study: S/P IA Procedure This was a 2D Doppler, Color Flow transthoracic echocardiogram. Exam performed portable in patient room. Left Ventricle Normal LV size. The estimated ejection fraction is 55 %. Stage 1 diastolic dysfunction. Segmental dysfunction with preserved ejection fraction (see wall motion). [place] : Akinetic. Anterior [place] : Akinetic. Inferior [place] : Hypokinetic. The rest of the wall segments are normal. Right Ventricle Normal RV size. Normal systolic function. Atria Normal left atrium. Normal right atrium. Mitral Valve Normal mitral valve. Tricuspid Valve Normal tricuspid valve. Mild (1+) tricuspid valve insufficiency. Pulmonary artery systolic pressure is 28 mmHg. Aortic Valve The aortic valve is not well visualized. Pulmonic Valve Normal pulmonic valve. Great Vessels Normal aortic root. The pulmonary artery is normal size. Normal inferior vena cava. Pericardium/Pleural No pericardial effusion. MMode/2D Measurements & Calculations LVIDd: 4.9 cm IVSd: 1.1 cm Ao root diam: 3.4 cm LVIDs: 3.1 cm LVPWd: 1.0 cm RVDd: 3.6 cm FS: 36.1 % LAV(MOD-sp2): 33.0 ml LA dimension(2D): 3.1 cm Time Measurements MV dec time: 0.29 sec Doppler Measurements & Calculations MV E max terry: 63.7 cm/sec Lat Peak E' Terry: 4.1 cm/sec Med Peak E' Terry: 2.6 cm/sec MV A max terry: 100.4 cm/sec E/E' lat: 15.7 E/E' med: 24.1 MV E/A: 0.63 Ao V2 max: 162.0 cm/sec LV V1 max: 91.6 cm/sec PA V2 max: 111.5 cm/sec Ao max P.5 mmHg LV V1 max P.4 mmHg TR max terry: 241.8 cm/sec TR max P.4 mmHg Interpretation Summary Normal LV size. The estimated ejection fraction is 55 %. Stage 1 diastolic dysfunction. Pulmonary artery systolic pressure is 28 mmHg. Segmental dysfunction with preserved ejection fraction (see wall motion). Ordering Physician: Delon Longoria Referring Physician: JULIO MARY Performed By: Laila Alegre, RDCS, RVT
[2018-11-16] MEDS: 0.9% Normal Saline 1,000 ML 75 ML IV (11:44)
[2018-11-16 11:50] LABS: ACT Activated Clotting Time 235 sec (74-137)
[2018-11-16 11:50] LABS: ACT Activated Clotting Time 208 sec (74-137)
[2018-11-16 11:51] LABS: ACT Activated Clotting Time 241 sec (74-137)
--- NOTE | 2018-11-16 12:29 | CL.I_ITS ---
Patient Name: SOHAIL ALCARAZ Study Date: 11/16/2018 Performing: Delon Longoria MD Ht: 67 inches 170 cm : 1940 Wt: 183.2 lbs 83 kg Age: 78 Gender: female BSA: 1.95 PROCEDURE(S) PERFORMED [id number], NEGRO AND/OR PTCA, ARTERY OR GRAFT, SINGLE VESSEL BC93-HND/COR/LV BR61-LDF W OR WO PTCA, SINGLE CORONARY ARTERY CLINICAL PROFILE AND CO-MORBIDITIES Heart Failure: None Angina Classification Anginal Classification w/in 2 Weeks: CCS IV CAD Presentations: STEMI. Symptom onset Date/Time: 11/16/2018 07:00:00 Time Estimated CONCLUSIONS 99 % Mid LAD with TMI II flow; 70% ostial D1 95% prox LCX, 70% ostial LCX 80% Mid RCA LVEF 40%. Apical hypokinesis. LVEDP 7 mm Hg Successful PTCA/NEGRO using Elunir 3.0x17 mm Successful PTCA/NEGRO Prox LCX using Resolute Integrity 2.5x8 mm RECOMMENDATIONS ASA Indefinitley Brilinta for at least 12 months Staged PCI to RCA as out-patient DESCRIPTION OF PROCEDURE The patient arrived to the procedure lab. The risks and benefits of the procedure as well as a full d escription of our services here and lack of surgical backup were fully explained to the patient and/o r their significant other prior to the catheterization. The Timeout was completed, verifying the ирина ect patient and procedure. The patient's procedural site was prepped and draped in the usual fashion. Local anesthetic was given subcutaneously to right radial region with Lidocaine 2%. Using a modified Seldinger technique, arterial access was obtained via the right radial artery, a 6Fr sheath was inse rted.. Left Coronary Artery selective angiography was performed in multiple views using a 5 Fr. 4.0 [place] catheter. Right Coronary Artery selective angiography was then performed in multiple views usin g a 5 Fr. 4.0 [place] catheter. Left Ventriculography was performed in MEHTA projection using a 5 Fr. Pig tail catheter. LV to AO pullback pressures were then recordedThe images were reviewed and options discussed. A decision was then made to proceed with an Intervention, IVUS or other adjunct pr ocedure. XB 2.5 Guide catheter was inserted and engaged into the LCA. Runthrough Guide wire was advanced t o the LAD. 2x12 Emerge Balloon catheter was inserted. Balloon catheter was advanced across lesion in the LAD, mid. PTCA balloon inflated at 8 atms for 11 secs. PTCA balloon inflated at 8 atms for 9 secs . Angiogram performed post balloon dilatation. 3x17 Elunir Drug Eluting stent was inserted. Drug Elut ing stent was advanced across the lesion in the LAD, mid. 3x15 NC Emerge Balloon catheter was inserte d. Balloon catheter was advanced across lesion in the LAD, mid. Angiogram performed post stent deploy ment. 2.5x12 Elunir Drug Eluting stent was inserted. Drug Eluting stent was removed intact, failed to cross lesion 2x8 Emerge Balloon catheter was inserted. Balloon catheter was advanced across lesion i n the circumflex, proximal. PTCA balloon inflated at 14 atms for 14 secs. PTCA balloon inflated at 12 atms for 9 secs. 2.5x8 Resolute Drug Eluting stent was inserted. Drug Eluting stent was advanced across the lesion in the circumflex, proximal. 2.5x8 NC Emerge Balloon catheter was inserted . Balloon catheter was inserted post stent. Balloon catheter was advanced across lesion in the circum flex, proximal. The arterial sheath was pulled and a TR Band was applied for hemostasis. 11 cc of a ir applied CORONARY ANGIOGRAPHY DOMINANCE: Right Dominant LEFT HEART ASSESSMENT Left Ventricular Ejection Fraction: by LV Gram 40 % LVEDP: 7 mmHg LEFT MAIN: Angiographically normal LEFT ANTERIOR DESCENDING ARTERY: 99% Mid LAD with VIANEY II flow. Ostial D1 70%. Distal Mid LAD 60% CIRCUMFLEX ARTERY: 70% ostial, 95% Prox RIGHT CORONARY ARTERY: 80% Mid. 60% Prox RPDA INTERVENTION INFORMATION LESION SITE: LAD (Mid) Lesion Complexity: High/C, thrombus present: Yes, thrombus present: Yes, culprit lesion: Yes Pre Stenosis: 99 % Pre intervention VIANEY flow: 2 PROCEDURE: Drug Eluting Stent with pre and post dilatation Post Stenosis: 0 % Post intervention VIANEY flow: 3 Lesion Devices: Cordis 6 Fr XB2.5 VBT 100cm Guide Catheter Sukumar Sci EMERGE MR 2.00x12 BALLOON Terumo .014 Runthrough Extra Floppy 180cm straight Cardinal Elunir NEGRO RX 3.0x17 Sukumar Sci NC EMERGE MR 3.00x15 BALLOON LESION SITE: Circumflex (Proximal) Lesion Complexity: Non-High/Non-C, thrombus present: No, culprit lesion: No Pre Stenosis: 95 % Pre intervention VIANEY flow: 3 PROCEDURE: Drug Eluting Stent with pre and post dilatation Post Stenosis: 0 % Post intervention VIANEY flow: 3 Lesion Devices: Cordis 6 Fr XB2.5 VBT 100cm Guide Catheter Terumo .014 Runthrough Extra Floppy 180cm straight Cardinal Elunir NEGRO RX 2.5x12 Medtronic Resolute RX NEGRO 2.5x08 Sukumar Sci EMERGE MR 2.00x08 BALLOON Sukumar Sci NC EMERGE MR 2.50x08 BALLOON COMPLICATIONS No Complications PROCEDURE MEDICATIONS Fentanyl 25 mcg IV Oxygen: 2 L/min via nasal cannula Heparin 4000 unit(s) IV 11/16/2018 10:35:08 Nitro 150 mcg IC 11/16/2018 10:44:06 Nitro 150 mcg IC 11/16/2018 10:44:06 Verapamil 2.5mg, Ntg 100mcgs, given IA 11/16/2018 10:13:46 SUMMARY OF HEMODYNAMIC DATA Time AIR REST AO 123/64 (89) SA 10:19:14 AO 124/62 (89) 10:31:20 LV 126/-6, 7 11:07:43 LV 121/-10, 6 11:07:50 Signed By Delon Longoria MD On 11/16/2018 12:28:33 Delon Longoria MD
[2018-11-16] MEDS: ALPRAZolam 0.25 MG Tablet PO ×2 (13:36→19:45)
--- NOTE | 2018-11-16 19:26 | HP.PCM_ITS ---
Problem List (1) Chest pain Status: Acute Qualifiers: Chest pain type: precordial pain Qualified Code(s): R07.2 - Precordial pain History of Present Illness Date of Admission: 11/16/18 Chief Complaint: Chest pain The patient is a 78 year old F who was seen in the emergency room at [facility] after being brought in by squad due to complaints of chest discomfort that she described as pressure-like in nature, it was located in the precordial area, and did not radiate into her neck, jaw, or down her arms. There was no radiation of the discomfort into her back. Patient stated that the discomfort started at 7:30 AM just after breakfast and it lasted until she came to the emergency room and was given nitroglycerin and IV fentanyl. Patient denied any nausea, vomiting, or shortness of breath. EKG was obtained on arrival to the emergency room, there was noted to be ST elevations across the precordial leads and a STEMI alert was called, cardiology saw the patient in the ER and the patient was taken for cardiac catheterization. During the catheterization, patient had a drug-eluting stent placed in the circumflex and LAD, patient also had an 80% stenosis in the right coronary artery which was not addressed. Patient's EF was noted to be 40%. Labs obtained in the emergency room revealed the troponin to be elevated at 0.121, creatinine was 1.31, BUN was 19, potassium was 3.3. His glucose was 171, her CBC was unremarkable. Chest x-ray showed interstitial fibrotic changes of the lungs, no acute pulmonary disease is noted. Admitted to the ICU following her cardiac catheterization for further care. 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) PPM Ventricular lead - Volunteer Services Director: [employer], Model # 7741 52 cm , Serial # [id number] Atrial lead - Volunteer Services Director: [employer], Model # 7740 45 cm , Serial # [id number] PPM Generator - Volunteer Services Director: [employer], Model # L111 , Serial # [id number] Essential (primary) hypertension (Chronic) Medical History: Medical History (Last Reviewed 09/13/18 @ 09:47 by Derek Brumfield MD) Mobitz (type) II atrioventricular block (Chronic) I44.1 Essential (primary) hypertension (Chronic) I10 Acute kidney injury N17.9 History of vertigo Z87.898 Allergies morphine Allergy (Verified 09/13/18 09:02) Vomiting Home Medications: Ambulatory Orders Medication Instructions Recorded Aspirin [Aspirin, Baby] 81 mg PO DAILY@0800 12/08/16 Erythromycin Ophthalmic 1 applic LEFT EYE QHS 12/08/16 Omeprazole 40 mg PO DAILY 12/08/16 Durezol 0.05 drp INTRAOCULAR .every three 08/01/18 days Meclizine HCl 25 mg PO TID PRN PRN 08/01/18 Propylene Glycol [Systane Balance] 2 drp LEFT EYE 4X/DAY PRN PRN 08/01/18 acyclovir 400 mg tablet 800 mg PO DAILY tab 08/01/18 hydrochlorothiazide 12.5 mg tablet 12.5 mg PO DAILY #30 tab 08/01/18 amlodipine 5 mg tablet 5 mg PO DAILY 90 Days #90 tab 09/13/18 Cholecalciferol (Vitamin D3) 2,000 unit PO DAILY 11/16/18 [Vitamin D3] Surgical History: Surgical History (Last Reviewed 09/13/18 @ 09:47 by Derek Brumfield MD) Presence of permanent cardiac pacemaker (Chronic) Onset Date: 08/02/18 Z95.0 PPM Ventricular lead - Volunteer Services Director: [employer], Model # 7741 52 cm , Serial # [id number] PPM Atrial lead - Volunteer Services Director: [employer], Model # 7740 45 cm , Serial # [id number] PPM Generator - Volunteer Services Director: [employer], Model # L111 , Serial # [id number] Surgical History: cataract, pacemaker implantation, tonsillectomy, - - Lumbar spinal fusion Psychiatric History: No pertinent psych hx MANAGER OF PROCUREMENT History: No pertinent MANAGER OF PROCUREMENT history Lives: Spouse/ Significant Other Smoking Status: Former smoker Tobacco Use: Non-smoker Alcohol: None Drugs: None - *Family History Maternal Family History: Family History (Last Reviewed 09/13/18 @ 09:47 by Derek Brumfield MD) Father Heart disease History Items: - - rheumatoid arthritis, congestive heart failure Paternal Family History: Family History (Last Reviewed 09/13/18 @ 09:47 by Derek Brumfield MD) Father Heart disease History Items: Heart Disease Review of Systems Constitutional: Denies: Anorexia, Chills, Fever, Night Sweats, Malaise, Weakness, Weight Change Eyes: Denies: Blurred vision, Cataracts, Conjunctivae Inflammation, Double vision, Drainage HEENT: Denies: Difficulty Swallowing, Dysphasia, Ear Pain, Eye Pain, Hearing Changes, Nasal bleeding, Nasal Congestion, Post Nasal Drip Cardiovascular: Reports: Chest Pain, Chest Pressure, Heaviness. Denies: Claudication, Chest Tightness, Edema, Light Headedness, Orthopnea, Palpitations, Paroxysmal Noc. Dyspnea, Syncope Respiratory: Denies: Cough, Hemoptysis, Pleuritic Pain, Shortness of Breath, Shortness of breath at rest, Shortness of breath upon exertion, Sputum production Gastrointestinal: Denies: Abdominal Pain, Constipation, Diarrhea, Hematemesis, Hematochezia, Nausea, Melena, Vomiting Genitourinary: Denies: Dysuria, Frequency, Hematuria, Hesitancy, Incontinence, Nocturia, Urgency Gynecological: Denies: Breast symptoms Musculoskeletal: Denies: Back Pain, Foot Pain, Hand Pain, Joint Pain, Joint stiffness, Joint swelling, Joint Tenderness, Leg Pain Skin: Denies: Dryness, Pruritis, Rash Neurological: Denies: Balance problems, Blurred vision, Double vision, Slurred speech, Difficulty swallowing, Focal weakness, Headaches, Incoordination, Numbness, Tingling Psychiatric: Denies: Anxiety, Depression, Homicidal Ideations, Suicidal Ideations Endocrine: Denies: Change in Body Habitus, Heat/ Cold Intolerance, Polydipsia, Polyuria Hematologic/ Lymphatic: Denies: Adenopathy, Anemia, Easy Bruising, Easy Bleeding, Petechiae, Purpura VTE Information - Inpt Only VTE Present on Admission: No VTE Mechan Device Prophylaxis: None VTE Pharm Prophylaxis ordered?: Yes Patient Problems: Active and Suspected Problems (Last Reviewed 09/13/18 @ 09:47 by Derek Brumfield MD) STEMI (ST elevation myocardial infarction) (Acute) Chest pain (Acute) - Physical Exam General: Alert, Oriented x3, Cooperative, No apparent distress, Well developed, Well nourished HEENT: Atraumatic, PERRLA, EOMI, Normocephalic Oral: Moist Mucosa Neck: Supple, No JVD, Negative Carotid Bruits, Trachea Midline, Thyroid Normal Size and Texture Lungs: Clear to auscultation, Normal air movement, No rhonchi, No wheeze, No rales Cardiovascular: Regular rate, Regular Rhythm, Normal S1, Normal S2, No murmurs, PMI Normal, No rub noted, No Gallop Abdomen: Bowel Sounds Present, Soft, Non Tender, Non-Distended, No hernias noted Extremities: No clubbing, No cyanosis, No edema, Capillary Refill Less than 3 Seconds Skin: No rashes, No breakdown Musculoskeletal: No Tenderness to Palpation of Joints or Extremities Neurological: Cranial nerves II-XII grossly intact, Neuro grossly intact, Sensory exam intact to light touch and pain, Coordination normal Psych/Mental Status: Normal Affect, Appropriate, Alert and oriented to time, place, person, mood and affect Vital Signs Temp Pulse Resp BP Pulse Ox 98.0 F 89 22 H 114/48 L 99 11/16/18 12:15 11/16/18 18:00 11/16/18 18:00 11/16/18 18:00 11/16/18 18:00 Oxygen Flow Rate (L/min) 2 Oxygen Delivery Method Room Air Weight: 176 kg Body Mass Index (BMI) 68.7 Intake and Output for Last 24 Hours 11/14/18 11/15/18 11/16/18 23:59 23:59 23:59 Intake Total 1379 / 1379 Output Total 1050 / 1050 Balance 329 / 329 Laboratory Tests Past 24 Hrs 11/16/18 11/16/18 11/16/18 08:45 08:45 08:45 WBC 10.6 RBC 4.41 Hgb 13.2 Hct 38.7 MCV 87.8 MCH 29.9 MCHC 34.1 RDW Std Deviation 42.8 RDW Coeff of Sakina 13.3 Plt Count 271 MPV 10.0 Immature Gran % (Auto) 0.400 Neut % (Auto) 55.1 Lymph % (Auto) 33.1 Adams % (Auto) 5.5 Eos % (Auto) 5.6 H Baso % (Auto) 0.3 Absolute Neuts (auto) 5.8 Absolute Lymphs (auto) 3.50 Absolute Nucleated RBC 0.00 Nucleated RBC % 0 APTT 26.2 Activated Clotting Time Sodium 135 L Potassium 3.3 L Chloride 103 Carbon Dioxide 23.0 Anion Gap 9 BUN 19 H Creatinine 1.31 H Estim Creat Clear Calc 33.86 Est GFR (MDRD) Af Amer 50 L Est GFR (MDRD) Non-Af 42 L BUN/Creatinine Ratio 14.5 Glucose 171 H Calcium 9.6 Troponin I 0.121 H 11/16/18 11/16/18 11/16/18 10:16 10:29 11:15 WBC RBC Hgb Hct MCV MCH MCHC RDW Std Deviation RDW Coeff of Sakina Plt Count MPV Immature Gran % (Auto) Neut % (Auto) Lymph % (Auto) Adams % (Auto) Eos % (Auto) Baso % (Auto) Absolute Neuts (auto) Absolute Lymphs (auto) Absolute Nucleated RBC Nucleated RBC % APTT Activated Clotting Time 235 H 208 H 241 H Sodium Potassium Chloride Carbon Dioxide Anion Gap BUN Creatinine Estim Creat Clear Calc Est GFR (MDRD) Af Amer Est GFR (MDRD) Non-Af BUN/Creatinine Ratio Glucose Calcium Troponin I Assessment/Plan All Active Problems (Last Reviewed 09/13/18 @ 09:47 by Derek Brumfield MD) STEMI (ST elevation myocardial infarction) (Acute) Chest pain (Acute) Diarrhea (Resolved) Herpes zoster of eye (Resolved) Sepsis (Resolved) #1 acute STEMI-patient was admitted to ICU, she will continue aspirin and Brilinta, she was placed on a statin, beta-amaury, and REMI inhibitor. Patient was also started on Imdur. #2 essential hypertension #3 hypokalemia-patient's potassium will be rechecked, she was given oral potassium #4 chronic kidney disease stage III #5 hyperglycemia-blood sugar will be rechecked tomorrow morning Code Visit Inpatient E&M: 80948 Init Hosp L3
[2018-11-16] MEDS: Pantoprazole Sodium 40 MG Tablet PO (19:45)
[2018-11-16] MEDS: Atorvastatin Calcium 20 MG Tablet PO (21:37)
[2018-11-16] MEDS: Carvedilol 3.125 MG TABLET PO (21:37)
[2018-11-16] MEDS: TICAGRELOR 90 MG TABLET PO (21:37)
[2018-11-16] MEDS: LORazepam 2 MG/ML Syringe 1 MG IV (21:50)
[2018-11-16] MEDS: 0.9% NaCl Peripheral Flush Adult/Peds IV (21:52)
[2018-11-17] VITALS (21 sets, daily range): BP systolic 84–141; BP diastolic 33–69; PULSE 62–81; RESP 12–23; TEMP 36.2–36.8; O2SAT 95–99
[2018-11-17 04:30] LABS: ALB/GLOB Ratio 0.8 RATIO (0.9-2.4); AST(SGOT) 73 U/L (15-37); Alanine Aminotransfer ALT/SGPT 21 U/L (13-56); Albumin, Serum 2.8 g/dL (3.2-5.0); Alkaline Phosphatase 99 U/L (45-117); Anion Gap 11 (5-15); BUN 12 mg/dL (7-18); BUN/Creat Ratio 10.3 RATIO (10-20); Calcium,Total 8.9 mg/dL (8.5-10.1); Chloride 107 mmol/L (98-107); Cholesterol 180 mg/dL (200); Creatinine, Serum 1.17 mg/dL (0.55-1.02); EST Glomerular Filtration Rate 47 mL/min (>60); Est Glom Filt Rate - Afr Amer 57 mL/min (>60); Estimated Creatinine Clearance 32.25 ml/min; Globulin 3.4 g/dL (2.2-4.2); Glucose 102 mg/dL (74-106); High Density Lipoprotein 55 mg/dL; Potassium 4.5 mmol/L (3.5-5.1); Protein, Total 6.2 g/dL (6.4-8.2); Sodium Level 145 mmol/L (136-145); Triglycerides 181 mg/dL; Very Low Density Lipoprotein 36 mg/dL (5-40)
[2018-11-17] MEDS: Enoxaparin 40 MG/0.4 ML Syringe SC (05:36)
[2018-11-17] MEDS: Carvedilol 3.125 MG TABLET PO ×2 (08:17→21:39)
[2018-11-17] MEDS: Aspirin E.C. 81 MG Tablet PO (08:17)
[2018-11-17] MEDS: Lisinopril 2.5 MG Tablet PO (08:18)
[2018-11-17] MEDS: TICAGRELOR 90 MG TABLET PO ×2 (08:18→21:40)
[2018-11-17] MEDS: Isosorbide Mononitrate 30 MG Tablet PO (08:18)
[2018-11-17] MEDS: Pantoprazole Sodium 40 MG Tablet PO (08:19)
[2018-11-17] MEDS: Acyclovir 800 MG Tablet PO (08:19)
--- NOTE | 2018-11-17 10:00 | EKG12_ITS ---
Test Reason : POST STEMI Blood Pressure : / mmHG Vent. Rate : 069 BPM Atrial Rate : 069 BPM P-R Int : 144 ms QRS Dur : 102 ms QT Int : 432 ms P-R-T Axes : 031 036 079 degrees QTc Int : 462 ms Electronic ventricular pacemaker When compared with ECG of 16-NOV-2018 10:26, MANUAL COMPARISON REQUIRED, DATA IS UNCONFIRMED Confirmed by NICA CHAPA, MARCIAL ([id number]), metropolitan editor HECTOR YOUNG ([id number]) on 11/19/2018 2:03:27 PM Referred By: Delon Longoria Confirmed By:MARCIAL YOUSIF MD
--- NOTE | 2018-11-17 11:32 | PCM.PN.CARD ---
Subjectve: Sitting up in a chair. Ambulate this morning. Denies any chest pain or shortness of breath. Objective: Vital Signs Temp Pulse Resp BP Pulse Ox 98.0 F 69 16 137/69 H 96 11/17/18 04:00 11/17/18 08:00 11/17/18 07:38 11/17/18 07:38 11/17/18 07:38 Oxygen Flow Rate (L/min) 2 Oxygen Delivery Method Room Air Weight: 83.1 kg Body Mass Index (BMI) 68.7 Intake and Output for Last 24 Hours 11/15/18 11/16/18 11/17/18 23:59 23:59 23:59 Intake Total 2080 / 2080 130 / 130 Output Total 1550 / 1550 Balance 531 / 531 130 / 130 General: Healthy Appearing, Awake, Alert, Oriented x 3 HEENT: Atraumatic, Normocephalic Oral: Moist Mucosa Neck: Supple Lungs: Clear to auscultation Cardiovascular: Regular Rhythm, Normal S1, Normal S2 Vascular: - - Right radial pulse 2+ Abdomen: Bowel Sounds Present, Soft Extremities: No edema Neurological: No Focal Motor or Sensory Deficit 11/17/18 03:40: Sodium 145, Potassium 4.5, Chloride 107, Carbon Dioxide 27.0, Anion Gap 11, BUN 12, Creatinine 1.17 H, Est GFR (MDRD) Af Amer 57 L, Est GFR (MDRD) Non-Af 47 L, BUN/Creatinine Ratio 10.3, Glucose 102, Calcium 8.9, Total Bilirubin 0.50, Triglycerides 181, Cholesterol 180, LDL Cholesterol 89, VLDL Cholesterol 36, HDL Cholesterol 55 Rhythm: Sinus rhythm EKG: Normal sinus rhythm. Changes consistent with recent anterolateral myocardial infarction ECHO: Stress Test: Cardiac Cath: PCI: CT Surgery: Holter monitor: EPS: PPM: CXR: Chest CT Scan: Medical Necessity - Tobacco Use Smoking Status: Former smoker Tobacco Use: Non-smoker Assessment/Plan 1. Acute ST elevation myocardial infarction. Status post drug-eluting stent placement to the left anterior descending artery and left circumflex artery. Stable. Asymptomatic. Ostial left circumflex lesion discussed with patient and her family. Decided to continue medical management. 2. Patient has about 70% lesion in the mid RCA. Consider staged intervention as an outpatient. 3. Aspirin lifelong. Brilinta treatment for at least 1 year. 4. Overall left ventricular systolic ejection fraction 35 to 40%. Start on beta-blockers. Start on REMI inhibitors. 5. History of hypertension. 6. Check lipid profile. Start on statins. 7. History of sick sinus syndrome status post permanent pacemaker placement.
--- NOTE | 2018-11-17 14:24 | NURSING ---
report called to [facility] for transfer to room 121
--- NOTE | 2018-11-17 18:13 | PCM.PROGNOTE ---
Patient Problems: Active and Suspected Problems (Last Reviewed 09/13/18 @ 09:47 by Derek Brumfield MD) STEMI (ST elevation myocardial infarction) (Acute) Chest pain (Acute) Subjective: Patient was seen and examined today, she has been stable since her stent placement yesterday. I talked briefly with cardiology about her care, patient was moved to PCU today in stable condition. - Physical Exam General: Alert, Oriented x3, Cooperative, No apparent distress, Well developed, Well nourished HEENT: Atraumatic, PERRLA, EOMI, Normocephalic Oral: Moist Mucosa Neck: Supple, Trachea Midline, Thyroid Normal Size and Texture Lungs: Clear to auscultation, Normal air movement, No rhonchi, No wheeze, No rales Cardiovascular: Regular rate, Regular Rhythm, Normal S1, Normal S2, No murmurs Abdomen: Bowel Sounds Present, Soft, Non Tender, Non-Distended Extremities: No clubbing, No cyanosis, No edema, Capillary Refill Less than 3 Seconds Skin: No rashes, No breakdown Musculoskeletal: No Tenderness to Palpation of Joints or Extremities Neurological: Cranial nerves II-XII grossly intact, Neuro grossly intact, Sensory exam intact to light touch and pain Psych/Mental Status: Normal Affect, Appropriate, Alert and oriented to time, place, person, mood and affect Vital Signs Temp Pulse Resp BP Pulse Ox 98.3 F 71 17 106/53 L 97 11/17/18 17:50 11/17/18 17:50 11/17/18 17:50 11/17/18 17:50 11/17/18 17:50 Oxygen Flow Rate (L/min) 2 Oxygen Delivery Method Room Air Weight: 83.1 kg Body Mass Index (BMI) 68.7 Intake and Output for Last 24 Hours 11/15/18 11/16/18 11/17/18 23:59 23:59 23:59 Intake Total 2081 / 2081 770 / 770 Output Total 1550 / 1550 600 / 600 Balance 531 / 531 170 / 170 Laboratory Tests Past 24 Hrs 11/17/18 03:40 Sodium 145 Potassium 4.5 Chloride 107 Carbon Dioxide 27.0 Anion Gap 11 BUN 12 Creatinine 1.17 H Estim Creat Clear Calc 32.25 Est GFR (MDRD) Af Amer 57 L Est GFR (MDRD) Non-Af 47 L BUN/Creatinine Ratio 10.3 Glucose 102 Calcium 8.9 Total Bilirubin 0.50 AST 73 H ALT 21 Alkaline Phosphatase 99 Total Protein 6.2 L Albumin 2.8 L Globulin 3.4 Albumin/Globulin Ratio 0.8 L Triglycerides 181 Cholesterol 180 LDL Cholesterol 89 VLDL Cholesterol 36 HDL Cholesterol 55 Medical Necessity - Tobacco Use Smoking Status: Former smoker Tobacco Use: Non-smoker Assessment/Plan All Active Problems (Last Reviewed 09/13/18 @ 09:47 by Derek Brumfield MD) STEMI (ST elevation myocardial infarction) (Acute) Chest pain (Acute) Diarrhea (Resolved) Herpes zoster of eye (Resolved) Sepsis (Resolved) #1 acute STEMI-postop day #1 drug-eluting stent to LAD and circumflex-continue present care #2 essential hypertension #3 hypokalemia-patient's potassium will be rechecked, she was given oral potassium #4 chronic kidney disease stage III #5 hyperglycemia-patient's blood sugar was 102 this morning, not sure what caused her hyperglycemia #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
[2018-11-17] MEDS: Atorvastatin Calcium 20 MG Tablet PO (21:40)
[2018-11-18 03:11] VITALS: PULSE 65
[2018-11-18 03:40] VITALS: BP 109/52; PULSE 71; RESP 18; TEMP 36.6; O2SAT 99
--- NOTE | 2018-11-18 05:33 | EKG12_ITS ---
Test Reason : AM Blood Pressure : / mmHG Vent. Rate : 066 BPM Atrial Rate : 066 BPM P-R Int : 148 ms QRS Dur : 104 ms QT Int : 478 ms P-R-T Axes : 045 072 127 degrees QTc Int : 501 ms Atrial-sensed ventricular-paced rhythm Abnormal ECG When compared with ECG of 17-NOV-2018 05:16, MANUAL COMPARISON REQUIRED, DATA IS UNCONFIRMED Confirmed by NICA CHAPA, MARCIAL ([id number]), manager enterprise content management SOCRATES GOMEZ ([id number]) on 11/20/2018 4:32:55 PM Referred By: Delon Longoria Confirmed By:MARCIAL YOUSIF MD
[2018-11-18] MEDS: Enoxaparin 40 MG/0.4 ML Syringe SC (05:42)
--- NOTE | 2018-11-18 06:47 | PN.CARD_ITS ---
Subjectve: Patient seen and evaluated Objective: Vital Signs Temp Pulse Resp BP Pulse Ox 97.8 F 71 18 109/52 L 99 11/18/18 03:40 11/18/18 03:40 11/18/18 03:40 11/18/18 03:40 11/18/18 03:40 Oxygen Flow Rate (L/min) 2 Oxygen Delivery Method Room Air Weight: 180 lb 1.883 oz Body Mass Index (BMI) 68.7 Intake and Output for Last 24 Hours 11/16/18 11/17/18 11/18/18 23:59 23:59 23:59 Intake Total 208 / 2081 770 / 1570 800 / 800 Output Total 1550 / 1550 600 / 600 Balance 531 / 531 170 / 970 800 / 800 General: Awake, Alert, Oriented x 3 HEENT: PERRL, EOMI, Sclera Non Icteric Neck: Supple, Good ROM, No Lymph Node Enlargement Lungs: Clear to auscultation Cardiovascular: Regular Rhythm, Normal S1, Normal S2, No Murmurs, No Rubs, No Gallops Vascular: No Carotid Bruits, Normal Femoral Pulses, Normal Radial Pulses, Normal Dorsalis Pedal Pulse, Normal Posterior Tibial Pulses Abdomen: Bowel Sounds Present, Soft, Non Tender, No HSM, No Organomegaly Extremities: No Cyanosis, No Clubbing, No edema Musculoskeletal: No Erythema Skin: No Rashes Lymphatic: No Lymph Node Enlargement Neurological: No Focal Motor or Sensory Deficit Psych/Mental Status: Appropriate Rhythm: EKG: ECHO: Stress Test: Cardiac Cath: PCI: CT Surgery: Holter monitor: EPS: PPM: CXR: Chest CT Scan: Medical Necessity - Tobacco Use Smoking Status: Former smoker Tobacco Use: Non-smoker Assessment/Plan 1. Status post ST elevation myocardial infarction. * Patient well-known to me. Patient presented with an ST elevation myocardial infarction and underwent angioplasty and stenting of the circumflex artery territory in the left anterior descending artery. Has residual disease noted in the right coronary artery which will be cycled after she has been seen in the office for follow-up. * Continue Brilinta * Continue aspirin * Continue beta-amaury * Obtain echocardiogram today to assess left ventricular function * Set up for cardiac rehabilitation * Can be discharged later on today * 2. Status post permanent pacemaker implantation * Patient recently had a dual-chamber permanent pacemaker implanted. Appears to be doing well. Plan #2 continue current medical therapy. * 3. Risk factor modification * Continue with aggressive risk factor modification.
[2018-11-18 07:33] VITALS: PULSE 64
[2018-11-18 08:00] VITALS: O2SAT 97
--- NOTE | 2018-11-18 08:46 | DCINST_ITS ---
- Discharge Diagnoses Current Active Problems: Current Active and Chronic Problems (Last Reviewed 09/13/18 @ 09:47 by Derek Brumfield MD) STEMI (ST elevation myocardial infarction) (Acute) Chest pain (Acute) You will use the following diet at home:: No restrictions Your food should be the consistency of: Regular Your liquids should be the consistency of: Regular/Thin Discharge Activity: Return to Normal Activity Weight Bearing Status: Full weight bearing Allergies/Adverse Reactions: Allergies morphine Allergy (Verified 09/13/18 09:02) Vomiting Medications to take at Discharge Aspirin [Aspirin, Baby] 81 mg PO DAILY@0800 12/08/16 Erythromycin Ophthalmic 1 applic LEFT EYE QHS 12/08/16 Omeprazole 40 mg PO DAILY 12/08/16 Durezol 0.05 drp INTRAOCULAR .every three days 08/01/18 Meclizine HCl 25 mg PO TID PRN PRN 08/01/18 Propylene Glycol [Systane Balance] 2 drp LEFT EYE 4X/DAY PRN PRN 08/01/18 acyclovir 400 mg tablet 800 mg PO DAILY tab 08/01/18 Cholecalciferol (Vitamin D3) [Vitamin D3] 2,000 unit PO DAILY 11/16/18 Atorvastatin Calcium [Lipitor] 20 mg PO QHS #30 tab 11/18/18 Carvedilol [Coreg (Beta Lauren)] 3.125 mg PO BID #60 tab 11/18/18 Isosorbide Mononitrate [Imdur] 30 mg PO DAILY #30 tab 11/18/18 Lisinopril [Zestril] 2.5 mg PO DAILY #30 tab 11/18/18 Ticagrelor [Brilinta] 90 mg PO BID #60 tab 11/18/18 The following prescriptions were given: Ticagrelor [Brilinta] 90 mg PO BID #60 tab Transmission Status: Pending to [facility] Carvedilol [Coreg (Beta Lauren)] 3.125 mg PO BID #60 tab Transmission Status: Pending to [facility] Isosorbide Mononitrate [Imdur] 30 mg PO DAILY #30 tab Transmission Status: Pending to [facility] Atorvastatin Calcium [Lipitor] 20 mg PO QHS #30 tab Transmission Status: Pending to [facility] Lisinopril [Zestril] 2.5 mg PO DAILY #30 tab Transmission Status: Pending to [id number] Primary Care Physician: Conor Garrido III, MD [Primary Care Provider] - Please follow up with your Primary Care Physician in: 2 weeks Test Results: Test results from this visit will be discussed in further detail at your follow- up appointment, if applicable. Please Follow Up With: Derek Brumfield MD When: as instructed-call office to make appointment
[2018-11-18] MEDS: Lisinopril 2.5 MG Tablet PO (09:09)
[2018-11-18] MEDS: Acyclovir 800 MG Tablet PO (09:09)
[2018-11-18] MEDS: Carvedilol 3.125 MG TABLET PO (09:09)
[2018-11-18] MEDS: Pantoprazole Sodium 40 MG Tablet PO (09:10)
[2018-11-18] MEDS: Isosorbide Mononitrate 30 MG Tablet PO (09:10)
[2018-11-18] MEDS: TICAGRELOR 90 MG TABLET PO (09:10)
[2018-11-18] MEDS: Aspirin E.C. 81 MG Tablet PO (09:10)
[2018-11-18 09:15] VITALS: BP 114/58; PULSE 76; RESP 16; TEMP 36.4; O2SAT 98
--- NOTE | 2018-11-18 10:00 | EKG12_ITS ---
Test Reason : STEMI Blood Pressure : / mmHG Vent. Rate : 095 BPM Atrial Rate : 095 BPM P-R Int : 146 ms QRS Dur : 086 ms QT Int : 356 ms P-R-T Axes : 043 046 069 degrees QTc Int : 447 ms Atrial-sensed ventricular-paced rhythm Abnormal ECG When compared with ECG of 16-NOV-2018 09:40, MANUAL COMPARISON REQUIRED, DATA IS UNCONFIRMED Confirmed by NICA CHAPA, MARCIAL ([id number]), school photograph editor HECTOR YOUNG ([id number]) on 11/19/2018 2:05:37 PM Referred By: Delon Longoria Confirmed By:MARCIAL YOUSIF MD
--- NOTE | 2018-11-18 10:17 | CRPHASE1 ---
Patient Communication PHII Cardiac Rehab Discussed with Patient:: Yes Guide to Cardiac Rehab Given to Patient:: Yes Cardiac Rehab Facility Choice List Given to Patient:: Yes - chooses [facility] Choice Program [facility] CR PHII:: Communication Given to CR, Refer to [facility] Choice Program Other:: Communication Given to CR, With permission faxed order and referral information Backup Administrative Coordinator:: Delon Longoria Refer Phase II Cardiac Rehab:: Yes Sessions:: 36 sessions - 3 days/wk, 12 weeks Risk Factors/Lifestyle Hx Hypertension: Yes Weight:: 83.007 kg Family History: Family History (Last Reviewed 09/13/18 @ 09:47 by Derek Brumfield MD) Father Heart disease Laboratory Values: Cardiac Rehab Phase I Labs Triglycerides 181 mg/dL (-199) 11/17/18 03:40 Cholesterol 180 mg/dL (200) 11/17/18 03:40 89 mg/dL (0-130) 11/17/18 03:40 55 mg/dL (40-) 11/17/18 03:40 Phase I Education Given On:: [place], Nutrition, Antiplatelet medication, CHF, Smoking cessation, Diabetes - Type I, Diabetes - Type II Knowledge of Condition:: Yes Hospital Course Cardiac Cath Date:: 11/16/18 Medical/Surgical History Hypertension:: Yes Discharge/Home/Social Eval Discharge Disposition: Home Cardiac Rehabilitation Info Cardiac Rehabilitation Program Information: Cardiac Rehabilitation is important for patients like you who are recovering from a heart problem. Cardiac rehabilitation programs are recognized as integral to the continued care of the patient with coronary heart disease. The cardiac rehabilitation program is designed to optimize a patient's physical, psychological, and social functioning. Health clinical care leader work in cardiac rehabilitation programs and assist you with getting the treatments you need to get stronger and healthier - like exercise, healthy eating habits, and medications. Cardiac rehabilitation has been show to help people with heart problems live longer and have better life enjoyment than people who do not go to cardiac rehabilitation. Please contact the Cardiac Rehabilitation Program at [facility] at in two weeks if you have not heard from them.
--- NOTE | 2018-11-18 10:22 | CRPH1.INSTRU ---
General Education CAD and cardiac anatomy and function:: Patient communicates acknowledgment Explanation of diagnoses and procedures:: Patient communicates acknowledgment Sign/Symptoms of IA:: Patient communicates acknowledgment Antiplatelet therapy: Patient communicates acknowledgment Proper use of NTG-SL: Not instructed Emergency procedures and activation of EMS: Patient communicates acknowledgment Compliance of all prescribed medications: Patient communicates acknowledgment Smoking Nicotine/Smoking Response Code:: Patient communicates acknowledgment Dyslipidemia Dyslipidemia Response Code:: Patient communicates acknowledgment Overweight/Obesity Patient Overweight/Obesity Risk Factors Are:: Obesity - > or = 30 Recommendations Include:: Weight loss of 5-10%, Reduced calorie diet, Exercise 5-7 times/week Overweight/Obesity:: Patient communicates acknowledgment Hypertension Recommendations Include:: Maintain BP <130/85, BP <130/80 if diabetic, DASH dietary guidelines, Decrease/maintain normal body weight, Moderation of ETOH Hypertension:: Patient communicates acknowledgment Heart Disease Patient Heart Disease Risk Factors Are:: Family history of heart disease < 65 years old Recommendations Include:: Educated family members of their risk, Educated family members of importance of prevention of heart disease Heart Disease Response Code:: Patient communicates acknowledgment Diabetes Diabetes:: Patient communicates acknowledgment Metabolic Syndrome Metabolic Syndrome Response Code:: Patient communicates acknowledgment Sedentary Sedentary Response Code:: Patient communicates acknowledgment Stress Stress Response Code:: Patient communicates acknowledgment
--- NOTE | 2018-11-18 11:07 | CASEMGMT ---
RN CM Assessment Presentation: STEMI Intro role of CM and purpose of RN CM assessment to patient in room. Demographics, PCP and Pharmacy verified. Pt has concerns re: Brillinta cost. Per [facility] ongoing cost will be $88/30 day supply. Explained Brillinta savings card to patient. Also explained importance of not missing doses and if cost is prohibitive, to speak with cardiology on her f/u appointment. PCP: Dr. Janel Quesada Specialists: Dr. Longoria Preferred Pharmacy: [facility] Insurance: [employer] [facility] Prescription Benefit: yes. Brillinta savings card given to patient. LNOK: Baron Juani Living Arrangements: Lives independently at home. States no care needs prior to admission. Transportation: Pt drives, but family is able to drive if needed. DME: None per pt HHC: none Patient DC goals: Home DC PLAN: Home on discharge. Paras TOTH RN ACM
[2018-11-18 15:00] VITALS: BP 115/62; PULSE 71; RESP 14; TEMP 37.7; O2SAT 96
[2018-11-18 15:18] LABS: Absolute Lymphocyte Count 1.99 X10^3/uL (0.83-4.51); Absolute Neutrophil Count 6.9 X10^3/uL (2.0-7.7); Basophil# 0.04 X10^3/uL; Basophil% 0.4 % (0-1); Eosinophil# 0.57 X10^3/uL; Eosinophils% 5.5 % (0-5); Hematocrit 33.6 % (37-47); Lymphocyte # 1.99 X10^3/ul (4.0); Lymphocyte % 19.2 % (19-41); Mean Corp Hgb Conc 32.7 g/dL (32-36); Mean Corpuscular Hgb 29.6 pg (27.0-32.0); Mean Corpuscular Volume 90.3 fL (81-99); Mean Platelet Vol. 10.1 fl (6.2-12.0); Monocyte# 0.78 X10^3/uL; Monocyte% 7.5 % (0-10); NRBC Flagged by Analyzer 0 % (0-5); Neutrophil # 6.92 X10^3/uL (2.7-7.7); Platelet Count 225 K/mm3 (150-450); RBC Distribution Width CV 13.6 % (11.6-14.6); Red Blood Count 3.72 M/mm3 (4.2-5.4); White Blood Count 10.3 K/mm3 (4.4-11.0)
--- NOTE | 2018-11-20 07:45 | DS.PCM_ITS ---
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 - Secondary Discharge Diagnosis Chronic Problems (Last Updated 11/18/18 @ 17:28 by Lily Elizondo) Atherosclerosis of coronary artery of [place] without angina pectoris (Chronic) PCI-NEGRO-Mid LAD w/ 3.0 x 17 mm Elunir Stent and NEGRO-Prox LCx w/ 2.5 x 8 mm Resolute Stent11/16/18 Mobitz (type) II atrioventricular block (Chronic) 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) PPM Ventricular lead - Dog Groomer: Gradible (formerly gradsavers), Model # [id number] 52 cm , Serial # [id number] PPM Atrial lead - Dog Groomer: Gradible (formerly gradsavers), Model # [id number] 45 cm , Serial # [id number] PPM Generator - Dog Groomer: Gradible (formerly gradsavers), Model # [id number] , Serial # [id number] Essential (primary) hypertension (Chronic) Hospital Course and Treatment Operations: None Procedures: 2-D Echocardiogram, Cardiac catheterization - With insertion of drug-eluting stent to LAD and circumflex Summary of Care Provided: The patient is a 78 year old F seen in the emergency room [facility] after coming in with complaints of chest discomfort. Work-up in the e mergency room included an EKG which showed ST elevations across precordial leads, cardiology was called and a STEMI alert was called. Patient was taken to cardiac catheterization, there was noted to be occlusive coronary disease in the circumflex, LAD, and right coronary artery, circumflex and LAD arteries were stented with a drug-eluting stent, it was felt that the right coronary artery disease would be addressed at a later date. Patient was admitted to ICU following her catheterization, medications were adjusted by cardiology, and she had no untoward events. On 11/17/2018, patient was transferred to PCU and had no complications. On 11/18/2018, patient underwent an echocardiogram which showed preserved ejection fraction. She was examined on that date: On examination she appeared in good health and spirits. Vital signs as documented. Skin warm and dry and without overt rashes. Neck without JVD. Lungs clear. Heart exam notable for regular rhythm, normal sounds and absence of murmurs, rubs or gallops. Abdomen unremarkable and without evidence of organomegaly, masses, or abdominal aortic enlargement. Extremities nonedematous. Neuro: Cranial nerves II through XII are grossly intact, no focal motor deficits were noted, sensation to light touch and pinprick is intact. Psych: Patient is alert and oriented x3, she does not appear anxious or depressed On 11/18/2018, patient was seen and examined and felt to be in stable condition for discharge home - Physical Exam Vital Signs Temp Pulse Resp BP Pulse Ox 99.8 F H 71 14 115/62 96 11/18/18 15:00 11/18/18 15:00 11/18/18 15:00 11/18/18 15:00 11/18/18 15:00 Oxygen Flow Rate (L/min) 2 Oxygen Delivery Method Room Air Weight: 83.007 kg Body Mass Index (BMI) 68.7 Intake and Output for Last 24 Hours 11/18/18 11/19/18 11/20/18 23:59 23:59 23:59 Intake Total 1160 / 1160 Balance 1160 / 1160 Discharge Activity: Return to Normal Activity Weight Bearing Status: Full weight bearing Home Medications: Medications to take at Discharge Aspirin [Aspirin, Baby] 81 mg PO DAILY@0800 12/08/16 Erythromycin Ophthalmic 1 applic LEFT EYE QHS 12/08/16 Omeprazole 40 mg PO DAILY 12/08/16 Durezol 0.05 drp INTRAOCULAR .every three days 08/01/18 Meclizine HCl 25 mg PO TID PRN PRN 08/01/18 Propylene Glycol [Systane Balance] 2 drp LEFT EYE 4X/DAY PRN PRN 08/01/18 acyclovir 400 mg tablet 800 mg PO DAILY tab 08/01/18 Cholecalciferol (Vitamin D3) [Vitamin D3] 2,000 unit PO DAILY 11/16/18 Atorvastatin Calcium [Lipitor] 20 mg PO QHS #30 tab 11/18/18 Carvedilol [Coreg (Beta Lauren)] 3.125 mg PO BID #60 tab 11/18/18 Isosorbide Mononitrate [Imdur] 30 mg PO DAILY #30 tab 11/18/18 Lisinopril [Zestril] 2.5 mg PO DAILY #30 tab 11/18/18 Ticagrelor [Brilinta] 90 mg PO BID #60 tab 11/18/18 Following Prescrptions Were Given to Patient: Ticagrelor [Brilinta] 90 mg PO BID #60 tab [facility] Carvedilol [Coreg (Beta Lauren)] 3.125 mg PO BID #60 tab Transmission Status: Received by [facility] Isosorbide Mononitrate [Imdur] 30 mg PO DAILY #30 tab Transmission Status: Received by [facility] Atorvastatin Calcium [Lipitor] 20 mg PO QHS #30 tab Transmission Status: Received by [facility] Lisinopril [Zestril] 2.5 mg PO DAILY #30 tab Transmission Status: Received by [facility] Primary Care Physician: Conor Garrido III, MD [Primary Care Provider] - Please follow up with your Primary Care Physician in: 2 weeks Please Follow Up With: Derek Brumfield MD When: as instructed-call office to make appointment Disposition: Home Minutes spent on discharge:: 32 Patient Condition:: Stable Medical Necessity - Tobacco Use Smoking Status: Former smoker Tobacco Use: Non-smoker Meaningful Use Info Meaningful Use Diagnoses (Choose all that apply): AMI - AMI Aspirin given w/in 24hrs of arrival?: Yes ASA at discharge?: Yes Statins at discharge?: Yes Gene/ARB at discharge?: Yes Beta Lauren at discharge?: Yes Done w/ Acute AK measure.: Yes Documented LVEF (%): 55 Code Visit Inpatient E&M: 46196 Disch Hosp
== END 2018-11-18 16:45 | disposition home or self-care (01) | DRG 247 ==
LOC: ED 09:46 → ICU 11:06 → PCU 11-17 14:22
PROVIDERS: Admitting Provider Internal Medicine; Emergency Provider Emergency Medicine; Family Provider Family Medicine; PCP Family Medicine; Referring Provider Internal Medicine Cardiovascular Disease; Visit Provider Internal Medicine
DX: I21.02 ST elevation (STEMI) myocardial infarction involving left anterior descending coronary artery (principal); I25.10 Atherosclerotic heart disease of native coronary artery without angina pectoris; Z95.0 Presence of cardiac pacemaker; Z87.891 Personal history of nicotine dependence; E87.6 Hypokalemia; N18.3 Chronic kidney disease, stage 3 (moderate); I12.9 Hypertensive chronic kidney disease with stage 1 through stage 4 chronic kidney disease, or unspecified chronic kidney disease
CPT/HCPCS: 36415; 71045; 80048; 80053; 80061; 84484; 85014; 85018; 85025; 85347; 85730; 92928; 92941; 93005; 93306; 93458; 99152; 99153; 99285; J7030; J7040; Q9967; A4216; C1725; C1769; C1874; C1887; C1894; C9600; C9606; J2405

== ENCOUNTER → 2018-11-29 | Outpatient (CLI) | payer MEDICARE, SELFPAY ==
[2018-11-29 10:22] VITALS: BMI 30.6
[2018-11-29 12:35] LABS: Absolute Lymphocyte Count 1.86 X10^3/uL (0.83-4.51); Basophil# 0.05 X10^3/uL; Basophil% 0.5 % (0-1); Eosinophil# 0.55 X10^3/uL; Eosinophils% 5.4 % (0-5); Hematocrit 36.6 % (37-47); Hemoglobin 11.9 g/dL (12.0-15.0); Lymphocyte # 1.86 X10^3/ul (4.0); Lymphocyte % 18.4 % (19-41); Mean Corp Hgb Conc 32.5 g/dL (32-36); Mean Corpuscular Hgb 29.7 pg (27.0-32.0); Mean Corpuscular Volume 91.3 fL (81-99); Mean Platelet Vol. 10.6 fl (6.2-12.0); Monocyte# 0.58 X10^3/uL; Monocyte% 5.7 % (0-10); NRBC Flagged by Analyzer 0 % (0-5); Neutrophil # 7.04 X10^3/uL (2.7-7.7); Neutrophil % 69.6 % (47-70); Platelet Count 304 K/mm3 (150-450); RBC Distribution Width CV 13.6 % (11.6-14.6); RBC Distribution Width SD 45.6 fl (35.1-43.9); Red Blood Count 4.01 M/mm3 (4.2-5.4); White Blood Count 10.1 K/mm3 (4.4-11.0)
[2018-11-29 13:09] LABS: Anion Gap 8 (5-15); BUN 17 mg/dL (7-18); BUN/Creat Ratio 13.5 RATIO (10-20); Calcium,Total 9.2 mg/dL (8.5-10.1); Chloride 105 mmol/L (98-107); Creatinine, Serum 1.26 mg/dL (0.55-1.02); EST Glomerular Filtration Rate 44 mL/min (>60); Est Glom Filt Rate - Afr Amer 53 mL/min (>60); Glucose 104 mg/dL (74-106); Potassium 4.3 mmol/L (3.5-5.1); Sodium Level 140 mmol/L (136-145)
== END | disposition home or self-care (01) ==
LOC: LAB 11:42
PROVIDERS: Family Provider Family Medicine; PCP Family Medicine; Referring Provider Internal Medicine Cardiovascular Disease; Visit Provider Internal Medicine Cardiovascular Disease
DX: I25.10 Atherosclerotic heart disease of native coronary artery without angina pectoris (principal); I25.2 Old myocardial infarction
CPT/HCPCS: 36415; 80048; 85025

== ENCOUNTER 2018-12-19 06:51 | Day surgery (SDC) | payer MEDICARE, SELFPAY ==
[2018-11-29 10:22] VITALS: BMI 30.6
[2018-12-19] VITALS (28 sets, daily range): BP systolic 91–126; BP diastolic 41–74; PULSE 60–69; RESP 13–24; TEMP 36.4–37.1; O2SAT 96–100; BMI 30.4; BMI 30.7
--- NOTE | 2018-12-19 10:15 | EKG12_ITS ---
Test Reason : CP Blood Pressure : / mmHG Vent. Rate : 077 BPM Atrial Rate : 077 BPM P-R Int : 136 ms QRS Dur : 110 ms QT Int : 398 ms P-R-T Axes : 046 069 070 degrees QTc Int : 450 ms Atrial-sensed ventricular-paced rhythm with occasional Premature ventricular complexes Abnormal ECG Confirmed by NICA CHAPA, MARCIAL ([id number]), school photograph editor MICHA PIERCE ([id number]) on 12/23/2018 11:51:03 AM Referred By: Rober Alvarado Confirmed By:MARCIAL YOUSIF MD
--- NOTE | 2018-12-19 10:24 | CL.I_ITS ---
Patient Name: SOHAIL ALCARAZ Study Date: 12/19/2018 Performing: Liliya Alvarado MD Ht: 63 inches 160.02 cm : 1940 Wt: 172.2 lbs 78.01 kg Age: 78 Gender: female BSA: 1.81 PROCEDURE(S) PERFORMED [id number] GUIDED ACCESS [id number] W OR WO PTCA, SINGLE CORONARY ARTERY CLINICAL PROFILE AND CO-MORBIDITIES Indications: Stable Known CAD Heart Failure: None Stress/Imaging Stress/Image Study Performed: No CAD Presentations: Stable angina. CONCLUSIONS Successful [facility] Drug eluting [facility] DESCRIPTION OF PROCEDURE The patient arrived to the procedure lab. The risks and benefits of the procedure as well as a full d escription of our services here and lack of surgical backup were fully explained to the patient and/o r their significant other prior to the catheterization. The Timeout was completed, verifying the ирина ect patient and procedure. The patient's procedural site was prepped and draped in the usual fashion. Local anesthetic was given subcutaneously to right radial region with Lidocaine 2%. Using a modified Seldinger technique, and ultrasound guidance,arterial access was obtained via the right ulnar artery , a 6Fr sheath was inserted.. Right Coronary Artery selective angiography was then performed in mult iple views using a 6 Fr. JR 4 guide catheter. Left Coronary Artery selective angiography was performe d in multiple views using a 5 Fr. JL3.5 catheter JR4 Guide catheter was inserted and engaged into the RCA. BMW Hewitt Guide wire was advanced t o the RCA. Emerge 3.0 x 20 Balloon catheter was inserted. Balloon catheter was advanced across lesion in the right coronary, mid. Angiogram performed pre balloon dilatation. PTCA balloon inflated at 10 atms for 17 secs. Angiogram performed post balloon dilatation. PTCA balloon inflated at 10 atms for 1 7 secs. Synergy 3.5 x 38 Drug Eluting stent was inserted. Drug Eluting stent was advanced across the lesion in the right coronary, mid. Angiogram performed pre stent deployment. Angiogram performed post stent deployment. Synergy 4.0 x 12 Drug Eluting stent was inserted. Drug Eluting stent was advanced across the lesion in the right coronary, mid. Angiogram performed post stent deployment. The arteri al sheath was pulled and a TR Band was applied for hemostasis CORONARY ANGIOGRAPHY LEFT MAIN: Mild luminal irregularities LEFT ANTERIOR DESCENDING ARTERY: Previously placed stent is patent, mild to moderate diffuse disease CIRCUMFLEX ARTERY: Previously placed stent is patent OSTIAL CIRC: 70 % Stenosis RIGHT CORONARY ARTERY: MID RCA: 80 % Stenosis RT PDA: Proximal - 60 % Stenosis INTERVENTION INFORMATION LESION SITE: RCA (Mid) Lesion Complexity: High/C, chronic total occlusion: No, lesion at bifurcation: No, thrombus present: No, lesion length: 45 mm, culprit lesion: Yes, Previously treated lesion: No Pre Stenosis: 80 % Pre intervention VIANEY flow: 3 PROCEDURE: Drug Eluting Stent with pre dilatation. Post Stenosis: 0 % Post intervention VIANEY flow: 3 Lesion Devices: Hilton .014 BMW Hewitt Straight 190cm Cordis 6 Fr JR4 100cm Guide Catheter Sukumar Sci EMERGE MR 3.00x20 BALLOON Sukumar Sci Synergy MR NEGRO 3.50x38 Sukumar Sci Synergy MR NEGRO 4.00x12 COMPLICATIONS No Complications PROCEDURE MEDICATIONS Fentanyl 25 mcg IV Versed 1 mg IV Oxygen: 2 L/min via nasal cannula Heparin given IA 12/19/2018 09:07:44 Heparin 3000 unit(s) IV 12/19/2018 09:08:47 Nitro 200 mcg IC 12/19/2018 09:27:51 Verapamil 2.5mg, Ntg 100mcgs, 3000 units of Heparin given IA 12/19/2018 09:07:44 SUMMARY OF HEMODYNAMIC DATA Time AIR REST ECG 08:35:15 AO 96/48 (64) SA 09:09:21 LV 113/2, 12 09:12:16 LV 114/2, 12 09:12:22 LVp 106/5, 12 09:12:40 AOp 113/52 (75) 09:12:45 AO 115/53 (77) 09:12:49 Signed By Liliya Alvarado MD On 12/19/2018 10:23:57 Liliya Alvarado MD
[2018-12-19] MEDS: 0.9% Normal Saline 1,000 ML 70 ML IV (10:50)
--- NOTE | 2018-12-19 12:01 | CRPHASE1_ITS ---
Patient Communication Former Patient:: Phase I PHII Cardiac Rehab Discussed with Patient:: Yes Guide to Cardiac Rehab Given to Patient:: Yes Cardiac Rehab Facility Choice List Given to Patient:: Yes Choice Program [facility] CR PHII:: Communication Given to CR, Refer to [facility] Refer Phase II Cardiac Rehab:: Yes - Patient needs new referral due to additional procedure. Sessions:: 36 sessions - 3 days/wk, 12 weeks Risk Factors/Lifestyle Family History: Family History (Last Reviewed 11/29/18 @ 11:04 by Derek Brumfield MD) Father Heart disease Cardiac Rehabilitation Info Cardiac Rehabilitation Program Information: Cardiac Rehabilitation is important for patients like you who are recovering from a heart problem. Cardiac rehabilitation programs are recognized as integral to the continued care of the patient with coronary heart disease. The cardiac rehabilitation program is d esigned to optimize a patient's physical, psychological, and social functioning. Health director career services work in cardiac rehabilitation programs and assist you with getting the treatments you need to get stronger and healthier - like exercise, healthy eating habits, and medications. Cardiac rehabilitation has been show to help people with heart problems live longer and have better life enjoyment than people who do not go to cardiac rehabilitation. Please contact the Cardiac Rehabilitation Program at [facility] at in two weeks if you have not heard from them.
--- NOTE | 2018-12-19 12:03 | CRPH1.INSTRU ---
General Education CAD and cardiac anatomy and function:: Not instructed Explanation of diagnoses and procedures:: Not instructed Sign/Symptoms of HI:: Not instructed Antiplatelet therapy: Not instructed Proper use of NTG-SL: Not instructed Emergency procedures and activation of EMS: Not instructed Compliance of all prescribed medications: Not instructed - Patient was seen by CR on 11/18/2018 at which time the booklet was give and education completed.
--- NOTE | 2018-12-19 14:50 | CASEMGMT ---
RN CM ARABIC TRANSLATOR CM to room to meet with patient for initial transition planning/care coordination assessment. MANAS CLAY introduced self and role at [facility]. Pt voices understanding and consents to assessment at this time. Pt resting in bed in no distress at this time. Pt is A/O at this time and answers all questions appropriately. Care providers, pharmacy, and demographics verified/updated at this time. PCP: Conor Garrido Specialists: Brissa--cardiology, Midel--optometry [facility] Benef[facility]: [employer] Living Will/HPOA: has a LW but does not have a HCPOA. has been given info on POA in the past but has not completed paperwork yet. Pt is interested in talking with SW tomorrow morning while she is here at [facility]. Pt made aware that if SW is not able to meet with her tomorrow morning prior to her being discharged that she can contact SW as an out-pt and make appt. Pt voices understanding. JUSTUS Sanchez, made aware that pt would like to meet with SW for assist with Paperwork. LNOK: , 2 daughters and a son. Living Arrangements: Lives with her in one-story home. One step to enter. States is independent @ home w/ADL's and home mgmt tasks. Transportation: Pt states drives self and states no transportation concerns at this time. will drive her home @ [place] DME: Denies using any DME and denies needs. HHC/SNF: No history of either. Denies needs and no needs identified. Pt wishes to return home and states has no concerns with going home at time of discharge. CM to follow for discharge planning/needs. Pt voices no further concerns/needs at this time. Advised pt to ask for CM if any further questions/concerns/needs arise. Voices understanding. Pt was on Brilinta prior to this admission. Has already used Brilinta savings card in the pasts. Pt states when she had medication refilled, it was pretty costly. Pt advised to talk with Dr Brumfield at her next appt to discuss other options that are more affordable. Pt voices understanding. PLAN: Home with spousal support and discharge plans in place. Piper TOTH RN, CM
[2018-12-19] MEDS: Acyclovir 800 MG Tablet PO (15:38)
[2018-12-19] MEDS: Carvedilol 3.125 MG TABLET PO (15:39)
[2018-12-19] MEDS: Erythromycin Base 1 OPTH.TUBE 1 APPLIC LEFT EYE (21:10)
[2018-12-19] MEDS: TICAGRELOR 90 MG TABLET PO (21:11)
[2018-12-19] MEDS: Atorvastatin Calcium 20 MG Tablet PO (21:11)
[2018-12-20] VITALS (11 sets, daily range): BP systolic 101–143; BP diastolic 41–61; PULSE 60–64; RESP 15–20; TEMP 36.3–36.8; O2SAT 94–98
--- NOTE | 2018-12-20 00:11 | NURSING ---
Rachel monitor states her MAP is 63.
[2018-12-20 05:32] LABS: ALB/GLOB Ratio 0.9 RATIO (0.9-2.4); AST(SGOT) 14 U/L (15-37); Alanine Aminotransfer ALT/SGPT 13 U/L (13-56); Alkaline Phosphatase 88 U/L (45-117); Anion Gap 6 (5-15); BUN 14 mg/dL (7-18); BUN/Creat Ratio 11.2 RATIO (10-20); Calcium,Total 8.6 mg/dL (8.5-10.1); Chloride 110 mmol/L (98-107); Creatinine, Serum 1.25 mg/dL (0.55-1.02); EST Glomerular Filtration Rate 44 mL/min (>60); Est Glom Filt Rate - Afr Amer 53 mL/min (>60); Estimated Creatinine Clearance 28.86 ml/min; Globulin 3.3 g/dL (2.2-4.2); Glucose 96 mg/dL (74-106); Potassium 3.6 mmol/L (3.5-5.1); Protein, Total 6.3 g/dL (6.4-8.2); Sodium Level 144 mmol/L (136-145)
[2018-12-20 05:42] LABS: Hematocrit 32.4 % (37-47); Hemoglobin 10.7 g/dL (12.0-15.0); Mean Corpuscular Hgb 30.6 pg (27.0-32.0); Mean Corpuscular Volume 92.6 fL (81-99); Mean Platelet Vol. 10.5 fl (6.2-12.0); Platelet Count 180 K/mm3 (150-450); RBC Distribution Width CV 14.1 % (11.6-14.6); RBC Distribution Width SD 47.8 fl (35.1-43.9); White Blood Count 9.3 K/mm3 (4.4-11.0)
--- NOTE | 2018-12-20 08:35 | DCINST_ITS ---
Discharge Diet: Low fat/ Low Cholesterol Discharge Activity: Return to Normal Activity May shower in (days): 1 Lifting Restrictions: 10 pounds and also avoid any pushing or pulling for 3 days after your test. Call your doctor if your incision/area has: Continuous Slow Oozing, Sudden Increased Bleeding, Increased Pain/ Swelling, Increased Redness, Foul Smelling Discharge, Swelling at the incision site Call your doctor if you observe: Fever of 101 or Higher, Dizziness, Chest pain Remove Dressing in (days):: 1 Cleanse incision/area with: Soap & Water Additional Dressing/Incision Instructions:: Keep the dressing (bandage) on until the next morning. You may then shower, but do not take a tub bath for 5 days after your test. It is normal to have some tenderness and discomfort at the puncture site. Sometimes bruising also occurs. However, if pain, numbness, or coldness occurs below the puncture site (in your leg, toes, arms or fingers) call your doctor at once. You may have a small, marble sized knot at the puncture site. This is normal. Do not rub it. It will go away in 4-6 weeks. Bleeding can occur from the area where the puncture was done. Blood may spurt or drip from the site. If blood spurts, apply pressure right away to stop bleeding and call 911. Although rare, bleeding into the tissue (hematoma) can also occur. If this happens, a large, firm area goose egg under the skin will appear. If any of these occur, lie down as flat as you can and have someone apply firm pressure to the cath site with a gauze pad or a clean washcloth for 10-15 minutes. Call 911 or go to the Emergency Department. Additional Instructions: You need to stay on your Brilinta for at least one year prior to stopping this. Allergies/Adverse Reactions: Allergies morphine Allergy (Verified 11/29/18 10:22) Vomiting Medications to take at Discharge Aspirin [Aspirin, Baby] 81 mg PO DAILY@0800 12/08/16 Erythromycin Ophthalmic 1 applic LEFT EYE QHS 12/08/16 Omeprazole 40 mg PO DAILY 12/08/16 Durezol 0.05 drp INTRAOCULAR .every three days 08/01/18 Meclizine HCl 25 mg PO TID PRN PRN 08/01/18 Propylene Glycol [Systane Balance] 2 drp LEFT EYE 4X/DAY PRN PRN 08/01/18 acyclovir 400 mg tablet 800 mg PO DAILY tab 08/01/18 Cholecalciferol (Vitamin D3) [Vitamin D3] 2,000 unit PO DAILY 11/16/18 atorvastatin 20 mg tablet 20 mg PO QHS #90 tab 11/29/18 carvedilol 3.125 mg tablet 3.125 mg PO BID #180 tab 11/29/18 isosorbide mononitrate ER 30 mg tablet,extended release 24 hr 30 mg PO DAILY #90 tab 11/29/18 lisinopril 2.5 mg tablet 2.5 mg PO DAILY #90 tab 11/29/18 ticagrelor 90 mg tablet 90 mg PO BID #60 tab 11/29/18 Primary Care Physician: Conor Garrido III, MD [Primary Care Provider] - Test Results: Test results from this visit will be discussed in further detail at your follow- up appointment, if applicable. Please Follow Up With: Derek Brumfield MD When: 01/10 at 0915 Cardiac Rehabilitation Info Cardiac Rehabilitation Program Information: Cardiac Rehabilitation is important for patients like you who are recovering from a heart problem. Cardiac rehabilitation programs are recognized as integral to the continued care of the patient with coronary heart disease. The cardiac rehabilitation program is designed to optimize a patient's physical, psychological, and social functioning. Health primary care nurse practitioner work in cardiac rehabilitation programs and assist you with getting the treatments you need to get stronger and healthier - like exercise, healthy eating habits, and medications. Cardiac rehabilitation has been show to help people with heart problems live longer and have better life enjoyment than people who do not go to cardiac rehabilitation. Please contact the Cardiac Rehabilitation Program at [facility] at in two weeks if you have not heard from them.
--- NOTE | 2018-12-20 09:31 | CASEMGMT ---
SW met with patient, introduced self and role at [facility]. SW answered patient's questions regarding documents. She said she would prefer to come in and do them as an outpatient. She has the Forms Examiner pamphlet with the phone number to call. Georgiana ANDERSON MSW
[2018-12-20] MEDS: Aspirin 81 MG TAB.CHEW PO (09:52)
[2018-12-20] MEDS: Pantoprazole Sodium 40 MG Tablet PO (09:53)
[2018-12-20] MEDS: Isosorbide Mononitrate 30 MG Tablet PO (09:53)
[2018-12-20] MEDS: TICAGRELOR 90 MG TABLET PO (09:53)
[2018-12-20] MEDS: Carvedilol 3.125 MG TABLET PO (09:53)
[2018-12-20] MEDS: Lisinopril 2.5 MG Tablet PO (09:54)
[2018-12-20] MEDS: Acyclovir 800 MG Tablet PO (09:54)
--- NOTE | 2018-12-20 11:33 | PCM.DC.SUM ---
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 Patient underwent the procedure without any significant complications. She did well overnight and she is being discharged home in a stable condition. She will follow-up with Dr. Brumfield as an outpatient. - Physical Exam General: Alert, Oriented x3 HEENT: Atraumatic Oral: Moist Mucosa Neck: Supple Extremities: No edema Skin: No rashes Psych/Mental Status: Normal Affect Vital Signs Temp Pulse Resp BP Pulse Ox 98.2 F 62 20 H 117/61 97 12/20/18 08:00 12/20/18 09:56 12/20/18 09:56 12/20/18 09:56 12/20/18 09:56 Oxygen Delivery Method Room Air Weight: 173 lb 11.588 oz Body Mass Index (BMI) 30.7 Intake and Output for Last 24 Hours 12/18/18 12/19/18 12/20/18 23:59 23:59 23:59 Intake Total 1327.00 / 1327.00 250 / 250 Output Total 950 / 950 Balance 377.00 / 377.00 250 / 250 Laboratory Tests Past 24 Hrs 12/20/18 12/20/18 04:55 04:55 WBC 9.3 RBC 3.50 L Hgb 10.7 L Hct 32.4 L MCV 92.6 MCH 30.6 MCHC 33.0 RDW Std Deviation 47.8 H RDW Coeff of Sakina 14.1 Plt Count 180 MPV 10.5 Sodium 144 Potassium 3.6 Chloride 110 H Carbon Dioxide 28.0 Anion Gap 6 BUN 14 Creatinine 1.25 H Estim Creat Clear Calc 28.86 Est GFR (MDRD) Af Amer 53 L Est GFR (MDRD) Non-Af 44 L BUN/Creatinine Ratio 11.2 Glucose 96 Calcium 8.6 Total Bilirubin 0.50 AST 14 L ALT 13 Alkaline Phosphatase 88 Total Protein 6.3 L Albumin 3.0 L Globulin 3.3 Albumin/Globulin Ratio 0.9 Discharge Diet: Low fat/ Low Cholesterol Discharge Activity: Return to Normal Activity May shower in (days): 1 Call your doctor if your incision/area has: Continuous Slow Oozing, Sudden Increased Bleeding, Increased Pain/ Swelling, Increased Redness, Foul Smelling Discharge, Swelling at the incision site Call your doctor if you observe: Fever of 101 or Higher, Dizziness, Chest pain Remove Dressing in (days):: 1 Cleanse incision/area with: Soap & Water Additional Dressing/Incision Instructions:: Keep the dressing (bandage) on until the next morning. You may then shower, but do not take a tub bath for 5 days after your test. It is normal to have some tenderness and discomfort at the puncture site. Sometimes bruising also occurs. However, if pain, numbness, or coldness occurs below the puncture site (in your leg, toes, arms or fingers) call your doctor at once. You may have a small, marble sized knot at the puncture site. This is normal. Do not rub it. It will go away in 4-6 weeks. Bleeding can occur from the area where the puncture was done. Blood may spurt or drip from the site. If blood spurts, apply pressure right away to stop bleeding and call 911. Although rare, bleeding into the tissue (hematoma) can also occur. If this happens, a large, firm area goose egg under the skin will appear. If any of these occur, lie down as flat as you can and have someone apply firm pressure to the cath site with a gauze pad or a clean washcloth for 10-15 minutes. Call 911 or go to the Emergency Department. Home Medications: Medications to take at Discharge Aspirin [Aspirin, Baby] 81 mg PO DAILY@0800 12/08/16 Erythromycin Ophthalmic 1 applic LEFT EYE QHS 12/08/16 Omeprazole 40 mg PO DAILY 12/08/16 Durezol 0.05 drp INTRAOCULAR .every three days 08/01/18 Meclizine HCl 25 mg PO TID PRN PRN 08/01/18 Propylene Glycol [Systane Balance] 2 drp LEFT EYE 4X/DAY PRN PRN 08/01/18 acyclovir 400 mg tablet 800 mg PO DAILY tab 08/01/18 Cholecalciferol (Vitamin D3) [Vitamin D3] 2,000 unit PO DAILY 11/16/18 atorvastatin 20 mg tablet 20 mg PO QHS #90 tab 11/29/18 carvedilol 3.125 mg tablet 3.125 mg PO BID #180 tab 11/29/18 isosorbide mononitrate ER 30 mg tablet,extended release 24 hr 30 mg PO DAILY #90 tab 11/29/18 lisinopril 2.5 mg tablet 2.5 mg PO DAILY #90 tab 11/29/18 ticagrelor 90 mg tablet 90 mg PO BID #60 tab 11/29/18 Primary Care Physician: Conor Garrido III, MD [Primary Care Provider] - Please Follow Up With: Derek Brumfield MD When: 01/10 at 0915 Additional Instructions: You need to stay on your Brilinta for at least one year prior to stopping this. Medical Necessity - Tobacco Use Smoking Status: Former smoker Meaningful Use Info Meaningful Use Diagnoses (Choose all that apply): None applicable
== END 2018-12-20 11:25 | disposition home or self-care (01) ==
LOC: CLSP 06:52 → ICU 09:42
PROVIDERS: Family Provider Family Medicine; PCP Family Medicine; Referring Provider Specialist; Visit Provider Specialist
DX: I25.118 Atherosclerotic heart disease of native coronary artery with other forms of angina pectoris (principal); I25.2 Old myocardial infarction; I10 Essential (primary) hypertension; Z95.0 Presence of cardiac pacemaker; E78.5 Hyperlipidemia, unspecified; Z79.82 Long term (current) use of aspirin; Z79.899 Other long term (current) drug therapy; Z87.891 Personal history of nicotine dependence
CPT/HCPCS: 76937; 80053; 85027; 92928; 93005; 93454; 99152; 99153; J7030; J7040; Q9967; C1725; C1769; C1874; C1887; C1894; C9600

== ENCOUNTER 2018-12-20 18:52 | Emergency (ER) | payer MEDICARE, SELFPAY ==
[2018-12-19 12:15] VITALS: BMI 30.7
[2018-12-20 18:53] VITALS: BP 118/53; PULSE 79; RESP 18; TEMP 36.9; O2SAT 97; BMI 30.4
--- NOTE | 2018-12-20 19:31 | RAD_ITS ---
STUDY: X-RAY CHEST REASON FOR EXAM: Female, 78 years old. Fall TECHNIQUE: Frontal and lateral views COMPARISON: November 16, 2018 FINDINGS: Stable left-sided pacemaker. The lungs are clear and expanded. There is no demonstrated pleural abnormality. Mild cardiomegaly Normal mediastinum and gilles. Normal visualized pulmonary arteries. Calcified aortic arch and descending thoracic aorta. Mild degenerative changes of the thoracic spine. Normal visualized ribs, clavicles, and shoulders. There is no demonstrated abnormality of the visualized soft tissue structures of the upper abdomen. RAD/Chest PA and Lateral IMPRESSION: Mild cardiomegaly. Electronically Signed: Thomas Modi DO at 19:49 EDT Tel [phone], Service support ,
[2018-12-20 21:23] VITALS: BP 121/68; PULSE 68; RESP 16; O2SAT 95; O2SAT 96
--- NOTE | 2018-12-20 23:53 | ED.VISSUMM ---
- ER Visit Summary Date of Service: 12/20/18 Chief Complaint: Fall History of Present Illness: The patient is a 78 F who presents with a fall that occurred today. Patient states she fell approximately 3 feet from a sling. Patient states the swing broke while she was on it patient fell and landed on her chest. Patient states her pain is aching. Patient states her pain is worse with certain movements. Patient states she had difficulty walking after the fall. However, she states she is able to ambulate at this time. Patient denies any lower extremity injuries. Patient denies any other injuries. Patient states she was discharged yesterday after having stents placed. Patient also had a recent pacemaker placement. Patient is concerned that the fall caused movement of her stents. Physical Examination: Vital signs are stable. Patient is afebrile. Patient is in no acute distress. Oral mucosa is pink and moist. Neck is supple. Trachea is midline. There is no JVD. Heart was regular rate and rhythm. Lungs are clear and equal bilaterally. Abdomen is soft. Bowel sounds are normal. There is no tenderness. Musculoskeletal exam shows extremities are intact. There are no deformities noted. There is good range of motion. There is tenderness over the sternum and chest wall. There is some mild edema. There is no ecchymosis. There is no bony crepitance noted. Test Results: Chest x-ray shows fracture of the sternum. There is no acute pulmonary process. EKG showed normal sinus rhythm with a rate of 77. There is occasional PVC noted. There are no acute ST or T wave changes. Emergency Department Course and Treatment: Patient was instructed to use ice to the area. Patient was instructed to follow-up with her primary care physician in 5 to 7 days. Patient understood and was agreeable with the plan. All questions were answered. Disposition: Discharge home Impression: Fracture sternum This note was generated with [employer] dictation software. It may contain incorrect words, spelling, and punctuation that were not noted in review of the chart prior to signing ED Disposition - Plan for ED Patient: Disposition: Home or Assisted Living Diagnosis: Fracture, sternum closed Instructions: CHEST WALL PAIN, Costochondritis Prescriptions: Hydrocodone Bitart/Apap 5-325 [[place] 5MG-325MG] 1 tab PO Q6H PRN PRN 3 Days #10 tab PRN Reason: Pain Prescription Printed Referrals: Conor Garrido III, MD [Primary Care Provider] - 5-7 Days
== END 2018-12-20 21:24 | disposition home or self-care (01) ==
PROVIDERS: Emergency Provider Emergency Medicine; Family Provider Family Medicine; PCP Family Medicine
DX: S22.20XA Unspecified fracture of sternum, initial encounter for closed fracture (principal); Z95.0 Presence of cardiac pacemaker; I25.10 Atherosclerotic heart disease of native coronary artery without angina pectoris; W17.89XA Other fall from one level to another, initial encounter; Y93.89 Activity, other specified; Y92.89 Other specified places as the place of occurrence of the external cause; Y99.8 Other external cause status
CPT/HCPCS: 71046; 99282; A4216

== ENCOUNTER → 2019-06-05 | Outpatient (CLI) | payer MEDICARE, SELFPAY ==
[2019-06-05 14:53] VITALS: BMI 30.8
[2019-06-05 16:18] LABS: Absolute Lymphocyte Count 2.33 X10^3/uL (0.83-4.51); Absolute Neutrophil Count 5.7 X10^3/uL (2.0-7.7); Basophil# 0.04 X10^3/uL; Basophil% 0.4 % (0-1); Eosinophil# 0.57 X10^3/uL; Eosinophils% 6.1 % (0-5); Hematocrit 38.5 % (37-47); Hemoglobin 12.2 g/dL (12.0-15.0); Lymphocyte # 2.33 X10^3/ul (4.0); Mean Corp Hgb Conc 31.7 g/dL (32-36); Mean Corpuscular Hgb 29.3 pg (27.0-32.0); Mean Corpuscular Volume 92.3 fL (81-99); Mean Platelet Vol. 10.3 fl (6.2-12.0); Monocyte# 0.61 X10^3/uL; Monocyte% 6.5 % (0-10); NRBC Flagged by Analyzer 0 % (0-5); Neutrophil # 5.74 X10^3/uL (2.7-7.7); Neutrophil % 61.7 % (47-70); Platelet Count 235 K/mm3 (150-450); RBC Distribution Width CV 13.8 % (11.6-14.6); RBC Distribution Width SD 46.9 fl (35.1-43.9); Red Blood Count 4.17 M/mm3 (4.2-5.4); White Blood Count 9.3 K/mm3 (4.4-11.0)
[2019-06-05 18:39] LABS: Anion Gap 3 (5-15); BUN 17 mg/dL (7-18); BUN/Creat Ratio 14.9 RATIO (10-20); Calcium,Total 9.2 mg/dL (8.5-10.1); Chloride 107 mmol/L (98-107); Creatinine, Serum 1.14 mg/dL (0.55-1.02); EST Glomerular Filtration Rate 49 mL/min (>60); Est Glom Filt Rate - Afr Amer 59 mL/min (>60); Glucose 96 mg/dL (74-106); Potassium 4.2 mmol/L (3.5-5.1); Sodium Level 140 mmol/L (136-145); Thyroid Stim Hormone (TSH) 0.73 uIU/mL (0.358-3.74)
== END | disposition home or self-care (01) ==
LOC: LAB 15:52
PROVIDERS: PCP Family Medicine; Referring Provider Physician Assistant Medical; Visit Provider Physician Assistant Medical
DX: I10 Essential (primary) hypertension (principal); I25.10 Atherosclerotic heart disease of native coronary artery without angina pectoris; R53.83 Other fatigue; S22.20XA Unspecified fracture of sternum, initial encounter for closed fracture
CPT/HCPCS: 36415; 80048; 84443; 85025

== ENCOUNTER → 2020-05-28 06:37 | Outpatient (CLI) | payer MEDICARE, SELFPAY ==
[2020-05-13 11:38] VITALS: BMI 31.5
--- NOTE | 2020-05-28 17:50 | STRESSREP ---
Stress Test Report Pharmacologic myocardial perfusion stress test. 80-year-old lady with a history of previous ST elevation myocardial infarction involving the LAD and circumflex artery status post pacemaker placement. Stress protocol: Resting EKG demonstrates normal sinus rhythm with a rate of 68 bpm normal intervals are noted resting blood pressure is 1 170/82 mmHg. 0.4 mg of regadenoson was infused per usual protocol followed by rapid intravenous saline flush injection continuous EKG monitoring was performed. Maximum heart rate attained was 88 bpm which was 63% of max impacted heart rate the maximum workload was 1 metabolic equivalent. At rest there were no ST or T wave changes noted to suggest abnormal flow reserve at peak infusion nonspecific ST changes were noted with no meet the criteria for ischemia. No clinical angina was noted. The final blood pressure was 146/78. Myocardial perfusion protocol. 11.9 mCi of technetium 99m sestamibi was injected at rest. 0.4 mg of regadenoson was infused per usual protocol. At peak infusion 33.6 mCi of technetium 99m sestamibi was injected stress images were obtained stress and rest images were reconstructed in comparing the short axis vertical long horizontal long axis. Gated images were also obtained Perfusion SPECT analysis: Review of the stress images demonstrated mild medium size defect noted involving the anterior apical wall. This is present on the stress images and improves on the resting images. The above is suggestive of mild anterior apical ischemia. The rest of the ulloa appear to be well perfused. No previous infarct is noted. Gated SPECT analysis: The gated ejection fraction is 47%. Conclusion: Abnormal pharmacologic myocardial perfusion stress test with evidence of anterior apical ischemia mild. Low normal ejection fraction.
== END ==
PROVIDERS: PCP Family Medicine; Referring Provider Internal Medicine Cardiovascular Disease; Visit Provider Internal Medicine Cardiovascular Disease
DX: I25.10 Atherosclerotic heart disease of native coronary artery without angina pectoris (principal); Z95.5 Presence of coronary angioplasty implant and graft
CPT/HCPCS: 78452; 93017; A9500; A4216; J2785

== ENCOUNTER 2020-06-11 12:09 | Outpatient (RCR) | payer MEDICARE, SELFPAY ==
[2020-06-04 09:52] VITALS: BMI 31.5
== END 2020-06-11 23:59 ==
LOC: IMMUN 12:09
PROVIDERS: PCP Family Medicine; Referring Provider Family Medicine; Visit Provider Family Medicine
DX: Z23 Encounter for immunization (principal)
CPT/HCPCS: 0011A; 0012A

== ENCOUNTER 2020-06-21 07:55 | Day surgery (SDC) | payer MEDICARE, SELFPAY ==
[2020-05-13 11:38] VITALS: BMI 31.5
--- NOTE | 2020-06-02 11:15 | RAD_ITS ---
STUDY: X-RAY CHEST REASON FOR EXAM: Female, 80 years old. PRE CAD, NO CHEST COMPLAINTS TECHNIQUE: PA and lateral views of the chest. COMPARISON: Comparison is made with prior study dated 12/20/2018. FINDINGS: Mild degree of increased interstitial markings in both lungs suggestive of scarring. This has progressed as compared to prior study. There is no demonstrated pleural abnormality. There is mild cardiac enlargement. A left-sided dual-chamber pacemaker is seen. Normal mediastinum and gilles. Normal visualized pulmonary arteries. There is atherosclerotic calcification of the aortic arch with tortuosity. There is demineralization of the osseous structures. Normal visualized ribs, clavicles, and shoulders. Small hiatal hernia. RAD/Chest PA and Lateral IMPRESSION: Progressive increase interstitial markings suggestive of progressive interstitial scarring. Electronically Signed: Carl Hillman MD at 15:10 EST , Service support ,
[2020-06-02 12:06] LABS: Absolute Lymphocyte Count 2.21 X10^3/uL (0.83-4.51); Absolute Neutrophil Count 6.5 X10^3/uL (2.0-7.7); Basophil# 0.05 X10^3/uL; Basophil% 0.5 % (0-1); Eosinophil# 0.53 X10^3/uL; Eosinophils% 5.3 % (0-5); Hematocrit 39.4 % (37-47); Hemoglobin 12.5 g/dL (12.0-15.0); Lymphocyte # 2.21 X10^3/ul (4.0); Lymphocyte % 22.1 % (19-41); Mean Corp Hgb Conc 31.7 g/dL (32-36); Mean Corpuscular Hgb 29.1 pg (27.0-32.0); Mean Corpuscular Volume 91.6 fL (81-99); Mean Platelet Vol. 10.8 fl (6.2-12.0); Monocyte# 0.65 X10^3/uL; Monocyte% 6.5 % (0-10); NRBC Flagged by Analyzer 0 % (0-5); Neutrophil # 6.54 X10^3/uL (2.7-7.7); Neutrophil % 65.2 % (47-70); Platelet Count 246 K/mm3 (150-450); RBC Distribution Width CV 13.2 % (11.6-14.6); RBC Distribution Width SD 44.6 fl (35.1-43.9)
[2020-06-02 13:09] LABS: Anion Gap 5 (5-15); BUN 17 mg/dL (7-18); BUN/Creat Ratio 14.8 RATIO (10-20); Calcium,Total 9.2 mg/dL (8.5-10.1); Chloride 109 mmol/L (98-107); Creatinine, Serum 1.15 mg/dL (0.55-1.02); EST Glomerular Filtration Rate 48 mL/min (>60); Est Glom Filt Rate - Afr Amer 58 mL/min (>60); Glucose 86 mg/dL (74-106); Potassium 3.9 mmol/L (3.5-5.1); Sodium Level 141 mmol/L (136-145)
[2020-06-04 09:52] VITALS: BMI 31.5
--- NOTE | 2020-06-21 08:56 | HP_ITS ---
HPI HPI History of Present Illness Details: This is an 80-year-old female that presents for a telephone visit. She has a history of coronary artery disease where she had an acute ST elevation myocardial infarction in October 2018. She had a 99% blockage of her LAD. She was also noted to have stenosis of her circumflex. She did have stenting of these 2 vessels. She also has a history of hypertension, AV block requiring a pacemaker. From a cardiac standpoint, patient is doing well. She does not have any chest discomfort/heaviness/tightness. She does not have any worsening symptoms of shortness of breath. She does not have any orthopnea. She denies PND. She does not have any symptoms of congestive heart failure. She does not have any palpitations that she is aware of. She does not have any lightheadedness or dizziness. She does not have any near-syncope or syncope. She does not have any lower extremity edema. She does not have any symptoms of claudication. Her physical exam is unremarkable. Intake Vital Signs 05/13/20 Height 5 ft 3 in 05/13/20 Weight: 178 lb 05/13/20 BMI 31.5 05/13/20 BP 122/74 H 05/13/20 Respiration 16 05/13/20 Pulse 74 05/13/20 Pulse Oximetry (%) 94 Intake Visit Reasons: 8 M FU Allergies morphine Allergy (Verified 05/13/20 11:38) Vomiting Medications Aspirin [Aspirin, Baby] 81 mg PO DAILY@0800 12/08/16 [History Confirmed 05/13/20] Erythromycin Ophthalmic 1 applic LEFT EYE QHS 12/08/16 [History Confirmed 05/13/20] Omeprazole 40 mg PO DAILY 12/08/16 [History Confirmed 05/13/20] Meclizine HCl 25 mg PO TID PRN PRN 08/01/18 [History Confirmed 05/13/20] Propylene Glycol [Systane Balance] 2 drp LEFT EYE 4X/DAY PRN PRN 08/01/18 [History Confirmed 05/13/20] Cholecalciferol (Vitamin D3) [Vitamin D3] 2,000 unit PO DAILY 11/16/18 [History Confirmed 05/13/20] acyclovir 800 mg tablet 800 mg PO DAILY tab 09/11/19 [History Confirmed 05/13/20] atorvastatin 20 mg tablet 20 mg PO QHS #90 tab 09/11/19 [Rx Confirmed 05/13/20] carvedilol 3.125 mg tablet 3.125 mg PO BID #180 tab 09/11/19 [Rx Confirmed 05/13/20] clopidogrel 75 mg tablet 75 mg PO DAILY #90 tab 09/11/19 [Rx Confirmed 05/13/20] lisinopril 2.5 mg tablet 2.5 mg PO DAILY #90 tab 09/11/19 [Rx Confirmed 05/13/20] difluprednate 0.05 % eye drops 1 drp OPHTHALMIC Q OTHER DAY ml 05/13/20 [History Confirmed 05/13/20] Ejection fraction %: 55 to 59 [facility] Medical History Atherosclerosis of coronary artery of [place] heart without angina pectoris (Chronic) History of ST elevation myocardial infarction (STEMI) (Resolved 11/16/18) 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 Derek Brumfield MD) Smoking Status: Never smoker ROS Const Const: Negative for fatigue, weakness, headache(s), frequent falls, difficulty sleeping or excessive sweating Eyes Eyes: Negative for loss of peripheral vision, transient loss of vision, blurry vision, double vision or tunnel vision ENT ENT: Negative for headache(s), dizziness, Nosebleed/epistaxis or balance problems Cardio Chest Pain: No Palpitations: No Edema: None Muscle aches with walking: None Resp Respiratory: Negative for SOB with activity, SOB at rest, SOB orthopnea\SOB lying down, Cough or paroxysmal nocturnal dyspnea GI GI: Negative nausea, vomiting, heartburn or black,tarry stools : Negative for hematuria Musc Musc: Negative for muscle aches/ myalgia, muscle weakness, joint pain or balance problems Skin Skin: Negative non-healing lesions, rash or unusual bruising Neuro Neuro: Negative for dizziness, lightheadedness, near syncope, syncope, orthostatic symptoms, frequent falls, headache(s), weakness, blurry vision, double vision or lack of coordination [place] Hematologic/Lymphatic: Negative for easy bleeding or easy bruising Endo Endo: Negative for fatigue, excessive sweating or increased thirst/drinking Psych Psych: Negative for anxiety or depression Allergy Allergy/Immunology: Negative for hives, Negative for rash Cardiology Exam Const Appearance: cooperative, healthy appearing, no acute distress, well developed and well groomed Nutritional Appearance: average body habitus and well nourished Orientation: alert, awake and oriented x3 Head Head: normal to inspection, normocephalic and atraumatic Ears: hearing grossly normal bilaterally and external ears normal Nose: external nose normal, nares normal, nasal mucous membranes and turbinates normal, septum normal, no nasal discharge Face and Sinus: face symmetric Mouth: oral mucosae normal, tongue normal, oropharynx normal and moist mucous membranes Teeth and gingiva: dentition normal Throat: posterior oropharynx normal, tonsils normal and uvula midline Eyes General: appearance normal, both eyes and all related structures Eyelids: eyelids normal Conjunctivae: conjunctivae normal Pupils: PERRL, normal by confrontation and accommodation normal EOM: EOM intact bilaterally Neck Neck: normal visual inspection, trachea midline and no JVD JVD: +5 Carotids: normal carotid upstroke and bounding pulses Chest Chest inspection: normal inspection of the chest, symmetric chest movement and normal respiratory effort Auscultation: Bilateral: Clear to Auscultation Cardio Palpation: normal PMI Rate: regular rate Rhythm: regular rhythm Heart sounds: S1 normal, S2 normal and normal, physiologic split S2; negative rub, gallop or murmur GI GI: normal to inspection, soft, no hepatosplenomegaly and bowel sounds present Neuro General: alert, awake, oriented x3, gait normal, moves all extremities and no focal sensory deficit Skin Skin: no rashes or lesions noted Extremities Pulses: Normal: Right Femoral Pulse, Left Femoral Pulse, Right Dorsalis Pedis Pulse, Left Dorsalis Pedis Pulse, Right Posterior Tibial Pulse, Left Posterior Tibial Pulse, Right Radial Pulse, Left Radial Pulse Lower Extremity Edema: None: Bilateral Musculoskel Musculoskeletal: No joint tenderness Psych Psychological: normal affect Assessment & Plan 1. History of coronary artery stent placement Z95.5 PCI-NEGRO-Mid LAD w/ 3.0 x 17 mm Elunir Stent and NEGRO-Prox LCx w/ 2.5 x 8 mm Resolute Stent 11/16/18; PCI-NEGRO-Mid RCA w/ 3.5 x 38 mm and 4.0 x 12 mm Synergy Stent 12/19/18 Plan She is status post angioplasty and stenting of the left anterior descending artery as well as the circumflex artery. At this time she has not had any anginal episodes. She requests to be off some of her medication and I think that we can discontinue the isosorbide at this particular time. I would like to see her again in 8 months and at that time consider stress testing. Thank you for allowing me to participate in her care. Orders Orders: Nuclear Stress Test - Chemical Today 2. Presence of permanent cardiac pacemaker Z95.0 [employer] 08/02/2018 Plan She is status post permanent pacemaker implantation. Her pacemaker appears to be functioning well. Her last interrogation was in February 2020 she will continue to follow here and there were no significant arrhythmias noted. 3. Essential (primary) hypertension I10 Plan Her blood pressure is under good control on the current medical therapy I would not suggest that we make any change with respect to this. Her last echocardiogram demonstrated preserved ejection fraction of 55% with stage I diastolic dysfunction. Plan Detail Other Medications Discontinued: isosorbide mononitrate ER Discontinued Reason: Order Changed 30 mg PO DAILY 90 tabs 3RF Follow Up 8 Months (acid tank cleaner) Coding Level of Care Code Off vis,est,level 3 Diagnoses History of coronary artery stent placement Z95.5 Presence of permanent cardiac pacemaker Z95.0 Essential (primary) hypertension I10 Coding Level of Care Code Off vis,est,level 3 Diagnoses History of coronary artery stent placement Z95.5 Presence of permanent cardiac pacemaker Z95.0 Essential (primary) hypertension I10 Supplemental Info Supplemental Information Diagnostics Electrocardiogram 12/19/18 Pacemaker Check 03/17/20 Chest X-Ray 12/20/18
--- NOTE | 2020-06-21 12:03 | CL.D_ITS ---
Patient Name: SOHAIL ALCARAZ Study Date: 06/21/2020 Performing: Derek Brumfield MD Ht: 62.99 inches 160 cm : 1940 Wt: 178.57 lbs 81 kg Age: 80 Gender: female BSA: 1.84 PROCEDURE(S) PERFORMED [id number]-ZPV/COR/LV CLINICAL PROFILE AND INDICATIONS Indications: Suspected CAD Heart Failure: None Stress/Imaging Date: 05/28/20ress Test with SPECT MPI: Positive Low Risk CAD Presentations: Symptom unlikely to be ischemic. CONCLUSIONS Previously placed stents in the LAD, left circumflex artery, right coronary artery are patent. Mild to moderate distal left main coronary disease and ostial left circumflex artery disease. RECOMMENDATIONS Medical therapy DESCRIPTION OF PROCEDURE The patient arrived to the procedure lab. The risks and benefits of the procedure as well as a full d escription of our services here and current unavailability of surgical backup were fully explained to the patient and/or their significant other prior to the catheterization. The Timeout was completed, verifying the correct patient and procedure. The patient's procedural site was prepped and draped in the usual fashion. Local anesthetic was given subcutaneously to right ulnar region with Lidocaine 2%. Using a modified Seldinger technique, arterial access was obtained via the right ulnar artery , a 6F r sheath was inserted. Left Coronary Artery selective angiography was performed in multiple views us ing a 5 Fr. 4.0 Cobden catheter. Right Coronary Artery selective angiography was then performed in mul tiple views using a 5 Fr. 4.0 Cobden catheter. Left Ventriculography was performed in MEHTA projection u sing a 5 Fr. Pigtail catheter. LV to AO pullback pressures were then recorded.The arterial sheath was pulled and a TR Band was applied for hemostasis w/ 10ml air CORONARY ANGIOGRAPHY DOMINANCE: Right Dominant LEFT HEART ASSESSMENT Left Ventricular Ejection Fraction: by LV Gram 60 % Normal LV wall motion LEFT MAIN: Distal 40 LEFT ANTERIOR DESCENDING ARTERY: MID LAD: Previously placed stent is patent CIRCUMFLEX ARTERY: OSTIAL CIRC: 70 % Stenosis MID CIRC: Previously placed stent is patent RIGHT CORONARY ARTERY: MID RCA: Previously placed stent is patent COMPLICATIONS No Complications PROCEDURE MEDICATIONS Versed 1 mg IV Fentanyl 50 mcg IV Versed 1 mg IV Oxygen: 2 L/min via nasal cannula Heparin diluted in 23cc Heparinized saline. Patient given 10cc IA of this solution. 06/21/2020 11:17: 24 Verapamil 2.5mg, Ntg 100mcgs, 2000 units of Heparin diluted in 23cc Heparinized saline. Patient give n 10cc IA of this solution. 06/21/2020 11:17:24 SUMMARY OF HEMODYNAMIC DATA Time AIR REST ECG 08:20:49 AO 109/60 (80) SA 11:19:48 AO 100/53 (72) 11:23:45 LV 129/-1, 11 11:33:11 LV 127/1, 5 11:33:18 LV 100/2, 6 11:33:56 LVp 113/8, 8 11:33:59 AOp 117/53 (78) 11:34:04 Signed By Derek Brumfield MD On 06/21/2020 12:02:08 Derek Brumfield MD
== END 2020-06-21 13:15 | disposition home or self-care (01) ==
LOC: CLSP 07:56
PROVIDERS: PCP Family Medicine; Referring Provider Internal Medicine Cardiovascular Disease; Visit Provider Internal Medicine Cardiovascular Disease
DX: I25.10 Atherosclerotic heart disease of native coronary artery without angina pectoris (principal); I25.2 Old myocardial infarction; I10 Essential (primary) hypertension; Z95.5 Presence of coronary angioplasty implant and graft; Z95.0 Presence of cardiac pacemaker; Z79.899 Other long term (current) drug therapy
CPT/HCPCS: 36415; 71046; 80048; 85025; 93458; 99152; 99153; J7040; Q9967; C1769; C1894

== ENCOUNTER 2021-01-01 08:19 | Emergency (ER) | payer MEDICARE, SELFPAY ==
[2021-01-01] VITALS (7 sets, daily range): BP systolic 126–154; BP diastolic 74–90; PULSE 69–80; RESP 13–23; TEMP 36.4; O2SAT 89–99; BMI 31.1
--- NOTE | 2021-01-01 08:42 | EKG12_ITS ---
Test Reason : CP Blood Pressure : / mmHG Vent. Rate : 078 BPM Atrial Rate : 078 BPM P-R Int : 182 ms QRS Dur : 150 ms QT Int : 480 ms P-R-T Axes : 012 -42 090 degrees QTc Int : 547 ms Atrial-sensed ventricular-paced rhythm with occasional Premature ventricular complexes Abnormal ECG Confirmed by CHAN CHAPA, SHANTA ([id number]), city editor MICHA PIERCE ([id number]) on 01/04/2021 8:00:30 AM Referred By: TOMÁS Confirmed By:PHILLIP GILES MD
--- NOTE | 2021-01-01 08:43 | EDS_ITS ---
HPI History of Present Illness Chief Complaint: Chest Pain Informant: patient, family and EMS Narrative Narrative: 80-year-old female presents to the emergency room with chest heaviness and shortness of breath. Patient states that symptoms began last night approximately 2130 hrs. She states that she felt like it might get better but it continued to worsen throughout the night. It did not resolve with getting up and walking. She denies any pain with this. She states she feels anxious because of her inability to breathe. Prehospital EKG shows a paced rhythm. She sees Dr. Brumfield for cardiology and is on Plavix. She has a history of coronary artery disease with PCI to the LAD, circumflex, RCA. 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 [facility] Medical History Acute kidney injury Atherosclerosis of coronary artery of [place] heart without angina pectoris Essential (primary) hypertension Fractured sternum History of ST elevation myocardial infarction (STEMI) (11/16/18) History of vertigo Mobitz (type) II atrioventricular block 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) Home Medications aspirin 81 mg PO DAILY@0800 12/08/16 [History Last Taken 06/21/20] erythromycin 1 applic LEFT EYE QHS 12/08/16 [History Last Taken 07/31/18] omeprazole 40 mg PO DAILY 12/08/16 [History Last Taken 06/21/20] meclizine 25 mg PO TID PRN PRN 08/01/18 [History Last Taken Unknown] propylene glycol 2 drp LEFT EYE 4X/DAY PRN PRN 08/01/18 [History Last Taken 08/01/18] cholecalciferol (vitamin D3) 2,000 unit PO DAILY 11/16/18 [History Last Taken Unknown] acyclovir 800 mg tablet 800 mg PO DAILY tab 09/11/19 [History Last Taken 06/21/20] difluprednate 0.05 % eye drops 1 drp OPHTHALMIC Q OTHER DAY ml 05/13/20 [History Last Taken Unknown] clopidogrel 75 mg tablet 75 mg PO DAILY #90 tab 09/10/20 [Rx Last Taken Unknown] lisinopril 2.5 mg tablet 5 mg PO DAILY #90 tab 09/10/20 [Rx Last Taken Unknown] atorvastatin 20 mg tablet 20 mg PO QHS #90 tab 12/13/20 [Rx Last Taken Unknown] alprazolam [Xanax] 0.25 mg PO TID PRN #10 tab 01/01/21 [Rx Last Taken Unknown] Allergy/AdvReac Type Severity Reaction Status Date / Time morphine Allergy Vomiting Verified 01/01/21 08:26 Family History Father Heart disease Surgical History History of coronary artery stent placement (12/19/18) History of left heart catheterization (06/21/20) Presence of permanent cardiac pacemaker (08/02/18) Social History (Updated 01/01/21 @ 08:[address] Miles Pond DO) Smoking Status: Never smoker substance use type: does not use ROS ROS ED Constitutional Constitutional ED: Denies chills or weight loss Eyes Eyes: Denies change in vision or diplopia ENT ENT ED: Denies ear pain, rhinorrhea or sore throat Cardiovascular Cardiovascular: Denies chest pain, orthopnea, palpitations or racing heartbeat Respiratory/Chest Respiratory/Chest: Reports dyspnea; Denies cough or orthopnea Gastrointestinal Gastrointestinal: Denies abdominal pain, diarrhea, nausea or vomiting Genitourinary Genitourinary ED: Denies dysuria, hematuria or urinary frequency Musculoskeletal Musculoskeletal: Denies arthralgias or myalgias Integumentary Denies abscess or rash Neurologic Neurologic: Denies headache(s) or weakness Psychiatric Psychiatric: Denies anxiety, depression, suicidal ideation or suicidal thoughts Endocrine Endocrinology: Denies polydipsia, polyphagia or polyuria Allergic/Immunologic Allergic/Immunologic ED: Denies mouth swelling, tongue swelling or urticaria EXAM Physical Exam Const Vital Signs: 01/01/21 08:20 01/01/21 08:23 01/01/21 08:31 Temperature 97.5 F L 97.5 F L Temperature Source Temporal Temporal Pulse Rate 80 71 Respiratory Rate 13 23 H Respiratory Effort Short of Breath Respiratory Pattern Blood Pressure 154/85 H 151/90 H Blood Pressure Mean 108 110 Pulse Ox 99 99 Oxygen Delivery Method Room Air Room Air Oxygen Flow Rate (L/min) 01/01/21 08:33 01/01/21 08:45 01/01/21 09:43 Temperature 97.5 F L Temperature Source Temporal Pulse Rate 74 Respiratory Rate 20 H Respiratory Effort Short of Breath Respiratory Pattern Normal Blood Pressure 146/74 H Blood Pressure Mean 98 Pulse Ox 99 93 Oxygen Delivery Method Room Air Room Air Oxygen Flow Rate (L/min) 01/01/21 09:49 01/01/21 09:50 Temperature Temperature Source Pulse Rate Respiratory Rate Respiratory Effort Respiratory Pattern Blood Pressure Blood Pressure Mean Pulse Ox 89 94 Oxygen Delivery Method Room Air Nasal Cannula Oxygen Flow Rate (L/min) 1 Positive well nourished and well developed General Appearance ED: well developed HEENT Reports normocephalic, head/scalp atraumatic and moist mucous membranes Eyes PERRL and EOMs intact bilaterally Neck no lymphadenopathy, supple and no JVD Resp normal respiratory effort and clear to auscultation bilaterally Cardio regular rate, regular rhythm and no murmurs GI normal to inspection, nondistended, normoactive bowel sounds and non-tender Palpation: soft Back/Spine no CVA tenderness and normal ROM Extremity normal to inspection General Extremety ED: Negative for edema General Extremity: Negative for edema Neuro oriented x3 and CN's II-XII intact bilaterally Sensorium / Orientation: alert Motor Exam: strength 5/5 throughout Psych mental status grossly normal Mood & Affect: Negative for depressed or tearful Skin no rashes or lesions noted and no wounds Heart Score History: Moderately Suspicious ECG: Normal Age: >/= 65 years Risk Factors: >/= 3 Risk Factors or History of CAD Troponin: </= Normal Limit Score: 5 MDM MDM MDM Narrative Medical decision making narrative: White count normal at 10.5. D-dimer elevated 1.24. Troponin high-sensitivity at 17. This troponin represents greater than 8 hours of symptoms. She is had no events on the monitor. My interpretation of the chest x-ray is no acute change from baseline. CTA of the chest was obtained and was negative for pulmonary embolism or dissection. Patient received a dose of Ativan. She is resting more comfortably and states that her breathing is better but she still feels some heaviness in her chest. Patient denies any history of known pulmonary disease. CT reveals bilateral subsegmental atelectasis versus pneumonitis. However could also see this with some connective tissue disease. She does not know that she has any pulmonary features. The chest x-ray appears unchanged from baseline. We did obtain a COVID-19 test and this was negative. All right for the patient to have some Xanax at home. I recommend that she follow-up with her primary care physician next week. Return if worsening or concerns Lab Data Attestation: I reviewed the patient's lab results. Labs: Laboratory Results - last 24 hr 01/01/21 01/01/21 01/01/21 08:28 08:28 08:28 WBC 10.5 RBC 4.14 L Hgb 12.5 Hct 38.0 MCV 91.8 MCH 30.2 MCHC 32.9 RDW Std Deviation 48.0 H RDW Coeff of Sakina 14.2 Plt Count 262 MPV 10.7 Immature Gran % (Auto) 0.300 Neut % (Auto) 66.2 Lymph % (Auto) 21.6 Franklin % (Auto) 5.5 Eos % (Auto) 6.0 H Baso % (Auto) 0.4 Absolute Neuts (auto) 7.0 Absolute Lymphs (auto) 2.28 Nucleated RBC % 0 D-Dimer Quant (PE/DVT) 1.24 H* Sodium 142 Potassium 3.6 Chloride 110 H Carbon Dioxide 24.0 Anion Gap 8 BUN 11 Creatinine 1.16 H Estim Creat Clear Calc 32.84 Est GFR (MDRD) Af Amer 58 L Est GFR (MDRD) Non-Af 48 L BUN/Creatinine Ratio 9.5 L Glucose 111 H Calcium 9.4 Magnesium 2.0 Troponin I High Sens 17 Radiography Diagnostic Testing: Radiology Impression Chest X-Ray 01/01/21 09:00 IMPRESSION: No acute cardiopulmonary disease or major interval change. Electronically Signed: Rafal Cortez DO at 9:25 EDT Tel [phone], Service support , Chest CTA 01/01/21 09:13 IMPRESSION: 1. No CT evidence of pulmonary embolism. 2. Bilateral subsegmental atelectasis or pneumonitis. Commonly reported imaging features of Covid 19 pneumonia are present. Other processes such as influenza pneumonia and organizing pneumonia as can be seen from drug toxicity or connective tissue disease can cause a similar imaging pattern. 3. Moderate hiatal hernia. Electronically Signed: Andres Wu MD at 10:08 EDT Tel , Service support , EKG Initial EKG: Attestation: I personally reviewed and interpreted this EKG as follows: Comments: Atrial sensed ventricular paced rhythm with occasional PVCs with a ventricular rate at 78 bpm. Discharge Plan Triage Chief Complaint: Chest Pain ED Provider: Miles Pond Dx/Rx/DC Orders Clinical Impression: Acute dyspnea, Anxiety Instructions: ED Dyspnea Prescriptions: New alprazolam [Xanax] 0.25 mg tablet 0.25 mg PO TID PRN (Reason: anxiety) Qty: 10 RF: 0 No Action acyclovir 800 mg tablet 800 mg PO DAILY RF: 0 difluprednate 0.05 % drops 1 drp OPHTHALMIC Q OTHER DAY RF: 0 omeprazole 40 MG capsule,delayed release(DR/EC) 40 mg PO DAILY RF: 0 erythromycin 1 APPLIC ointment 1 applic LEFT EYE QHS RF: 0 aspirin 81 MG tablet,chewable 81 mg PO DAILY@0800 RF: 0 meclizine 25 MG tablet 25 mg PO TID PRN PRN (Reason: Dizziness) RF: 0 propylene glycol 10 ML drops 2 drp LEFT EYE 4X/DAY PRN PRN (Reason: Dry Eyes) RF: 0 cholecalciferol (vitamin D3) 2,000 UNIT capsule 2,000 unit PO DAILY RF: 0 clopidogrel 75 mg tablet 75 mg PO DAILY Qty: 90 RF: 3 lisinopril 2.5 mg tablet 5 mg PO DAILY Qty: 90 RF: 3 atorvastatin 20 mg tablet 20 mg PO QHS Qty: 90 RF: 3 Referrals: [facility] [Other] Disposition Disposition: Home, Self Care
[2021-01-01] MEDS: LORazepam 2 MG/ML Syringe 0.5 MG IV (08:51)
[2021-01-01 08:57] LABS: Absolute Lymphocyte Count 2.28 X10^3/uL (0.83-4.51); Basophil# 0.04 X10^3/uL; Basophil% 0.4 % (0-1); Eosinophil# 0.63 X10^3/uL; Hemoglobin 12.5 g/dL (12.0-15.0); Lymphocyte # 2.28 X10^3/ul (0.83-4.51); Lymphocyte % 21.6 % (19-41); Mean Corp Hgb Conc 32.9 g/dL (32-36); Mean Corpuscular Hgb 30.2 pg (27.0-32.0); Mean Corpuscular Volume 91.8 fL (81-99); Mean Platelet Vol. 10.7 fl (6.2-12.0); Monocyte# 0.58 X10^3/uL; Monocyte% 5.5 % (0-10); NRBC Flagged by Analyzer 0 % (0-5); Neutrophil # 6.98 X10^3/uL (2.7-7.7); Neutrophil % 66.2 % (47-70); Platelet Count 262 K/mm3 (150-450); RBC Distribution Width CV 14.2 % (11.6-14.6); Red Blood Count 4.14 M/mm3 (4.2-5.4); White Blood Count 10.5 K/mm3 (4.4-11.0)
--- NOTE | 2021-01-01 09:00 | RAD_ITS ---
STUDY: X-RAY CHEST REASON FOR EXAM: Female, 80 years old. Chest pain and cough. TECHNIQUE: Single AP portable view of the chest. COMPARISON: 06/02/2020. FINDINGS: Lungs well-expanded. There is stable increased interstitial markings when compared to the prior study. No new infiltrate or mass is seen. There is no demonstrated pleural abnormality. PICC 5 stable cardiac pacemaker. Normal mediastinum and gilles. Normal visualized pulmonary arteries. There is atherosclerotic calcification of the aortic arch with tortuosity. The thoracic spine is obscured by the mediastinum. Normal visualized ribs, clavicles, and shoulders. There is no demonstrated abnormality of the visualized soft tissue structures of the upper abdomen. RAD/Chest 1 View (Portable) IMPRESSION: No acute cardiopulmonary disease or major interval change. Electronically Signed: Rafal Cortez DO at 9:25 EDT Tel [phone], Service support ,
[2021-01-01 09:06] LABS: D-Dimer Quantitative (DVT/PE) 1.24 FEU/ug/m (0.27-0.49)
[2021-01-01 09:10] LABS: Anion Gap 8 (5-15); BUN 11 mg/dL (7-18); BUN/Creat Ratio 9.5 RATIO (10-20); Calcium,Total 9.4 mg/dL (8.5-10.1); Chloride 110 mmol/L (98-107); Creatinine, Serum 1.16 mg/dL (0.55-1.02); EST Glomerular Filtration Rate 48 mL/min (>60); Est Glom Filt Rate - Afr Amer 58 mL/min (>60); Estimated Creatinine Clearance 32.84 ml/min; Glucose 111 mg/dL (74-106); Potassium 3.6 mmol/L (3.5-5.1); Sodium Level 142 mmol/L (136-145); Troponin-I HS 17 pg/mL (3.0-54.0)
--- NOTE | 2021-01-01 09:13 | CT_ITS ---
STUDY: CTA CHEST REASON FOR EXAM: Female, 80 years old. dyspnea elevated d dimer RADIATION DOSAGE (If Supplied By Facility): CTDIvol = ( 13.07 ) mGy, DLP = ( 434.06 ) mGycm TECHNIQUE: The examination was performed with the intravenous administration of IV 100mL Isovue-370. Post-processing of the angiographic images was performed, with multiplanar reformation and 3D reconstruction. Individualized dose optimization techniques were used for this CT. COMPARISON: Chest x-ray earlier today FINDINGS: Left subclavian pacemaker. Normal enhancement of the main pulmonary artery and right and left pulmonary arteries. Normal enhancement of the bilateral peripheral pulmonary arteries. There is no demonstrated pulmonary embolism. Normal thoracic aorta and visualized great vessels. There is no demonstrated aortic dissection. Normal heart and pericardium. Moderate-sized hiatal hernia. Normal mediastinum. Normal hilar regions. Normal visualized trachea and bronchi. The lungs are well expanded. Bilateral patchy groundglass opacities consistent with subsegmental atelectasis or pneumonitis. Small bilateral pleural effusions with some bibasilar atelectasis. Normal chest wall structures. Healed depressed fracture of the sternum. Normal visualized upper abdomen. CT/CTA Chest W/WO Contrast IMPRESSION: 1. No CT evidence of pulmonary embolism. 2. Bilateral subsegmental atelectasis or pneumonitis. Commonly reported imaging features of Covid 19 pneumonia are present. Other processes such as influenza pneumonia and organizing pneumonia as can be seen from drug toxicity or connective tissue disease can cause a similar imaging pattern. 3. Moderate hiatal hernia. Electronically Signed: Andres Wu MD at 10:08 EDT Tel , Service support ,
== END 2021-01-01 11:29 | disposition home or self-care (01) ==
PROVIDERS: Emergency Provider Emergency Medicine
DX: R06.00 Dyspnea, unspecified (principal); F41.9 Anxiety disorder, unspecified; I25.10 Atherosclerotic heart disease of native coronary artery without angina pectoris; I10 Essential (primary) hypertension; Z95.1 Presence of aortocoronary bypass graft; Z95.0 Presence of cardiac pacemaker; Z79.899 Other long term (current) drug therapy
CPT/HCPCS: 36415; 71045; 71275; 80048; 83735; 84484; 85025; 85379; 87426; 93005; 96374; 99285; Q9967; A4216

== ENCOUNTER → 2021-02-01 10:40 | Outpatient (CLI) | payer MEDICARE, SELFPAY | PROVIDERS: Referring Provider Internal Medicine Cardiovascular Disease; Visit Provider Internal Medicine Cardiovascular Disease | DX: R06.00 Dyspnea, unspecified (principal) | CPT/HCPCS: 36415; 83880 ==

== ENCOUNTER → 2021-02-16 10:13 | Outpatient (CLI) | payer MEDICARE, SELFPAY ==
[2021-02-16 12:41] LABS: Anion Gap 8 (5-15); BUN 20 mg/dL (7-18); BUN/Creat Ratio 15.9 RATIO (10-20); Calcium,Total 9.3 mg/dL (8.5-10.1); Chloride 107 mmol/L (98-107); Creatinine, Serum 1.26 mg/dL (0.55-1.02); EST Glomerular Filtration Rate 43 mL/min (>60); Est Glom Filt Rate - Afr Amer 52 mL/min (>60); Glucose 84 mg/dL (74-106); Potassium 4.2 mmol/L (3.5-5.1); Sodium Level 138 mmol/L (136-145)
== END ==
PROVIDERS: PCP Nurse Practitioner Family; Referring Provider Internal Medicine Cardiovascular Disease; Visit Provider Internal Medicine Cardiovascular Disease
DX: I25.10 Atherosclerotic heart disease of native coronary artery without angina pectoris (principal); I25.2 Old myocardial infarction; I50.32 Chronic diastolic (congestive) heart failure; R06.00 Dyspnea, unspecified; Z95.5 Presence of coronary angioplasty implant and graft
CPT/HCPCS: 36415; 80048

== ENCOUNTER → 2021-04-14 09:40 | Outpatient (CLI) | payer MEDICARE, SELFPAY ==
--- NOTE | 2021-04-15 07:33 | PFT ---
INTRODUCTION: The patient is an 81-year-old female that presents for pulmonary function studies secondary to a diagnosis of shortness of breath. Respiratory therapy reported good patient effort. Bronchodilators were used during testing. INTERPRETATION: Forced expiration spirometry demonstrates no evidence of a large airways obstructive ventilatory defect. There was no significant response to aerosolized bronchodilators. Spirograms are of good quality and plateau normally. Body plethysmography was performed and revealed a decreased TLC to 3.62 L, 77% of predicted, indicative of a mild restrictive ventilatory impairment. Diffusing capacity by single breath CO is significantly reduced at 37% of predicted. IMPRESSION: Isolated mild restrictive ventilatory impairment with disproportionate reduction in diffusing capacity.
== END ==
PROVIDERS: PCP Nurse Practitioner Family; Referring Provider Internal Medicine Critical Care Medicine; Visit Provider Internal Medicine Critical Care Medicine
DX: R06.02 Shortness of breath (principal)
CPT/HCPCS: 94060; 94726; 94729

== ENCOUNTER → 2021-04-19 13:25 | Outpatient (CLI) | payer MEDICARE, SELFPAY ==
[2021-04-19 14:03] VITALS: PULSE 100; PULSE 108; PULSE 113; PULSE 114; PULSE 118; PULSE 53; PULSE 82; O2SAT 96; O2SAT 97; O2SAT 98
[2021-04-19 14:28] LABS: Absolute Lymphocyte Count 2.38 X10^3/uL (0.83-4.51); Absolute Neutrophil Count 8.4 X10^3/uL (2.0-7.7); Basophil# 0.06 X10^3/uL; Basophil% 0.5 % (0-1); Eosinophil# 0.34 X10^3/uL; Eosinophils% 2.9 % (0-5); Hematocrit 34.9 % (37-47); Hemoglobin 11.5 g/dL (12.0-15.0); Lymphocyte # 2.38 X10^3/ul (0.83-4.51); Lymphocyte % 20.1 % (19-41); Mean Corpuscular Hgb 29.8 pg (27.0-32.0); Mean Corpuscular Volume 90.4 fL (81-99); Mean Platelet Vol. 10.5 fl (6.2-12.0); Monocyte# 0.68 X10^3/uL; Monocyte% 5.7 % (0-10); NRBC Flagged by Analyzer 0 % (0-5); Neutrophil # 8.37 X10^3/uL (2.7-7.7); Neutrophil % 70.5 % (47-70); Platelet Count 225 K/mm3 (150-450); RBC Distribution Width CV 14.5 % (11.6-14.6); Red Blood Count 3.86 M/mm3 (4.2-5.4); White Blood Count 11.9 K/mm3 (4.4-11.0)
--- NOTE | 2021-04-19 14:28 | PCM.PSN.6M ---
PSN 6 Minute Walk Test 6 Minute Walk Test 6 Minute Walk Test: 6 Minute Walk Test PSN:6-Minute Walk Test Start: 04/19/21 14:03 Freq: Status: Active Protocol: [id number].[id number] Document 04/19/21 14:03 CLIFTON (Rec: 04/19/21 14:07 CLIFTON [id number]) 6 Minute Walk Test Date Performed 04/19/21 Time Performed 13:45 Height 5 ft 3 in Weight: 78.471 kg Weight in Pounds 173.[address]: Orlando Gan Assistive device used: None Pre-test Oxygen Delivery Method Room Air Pulse Ox (%) 97 Pulse Rate (60-100 beats/min) 53 L Dyspnea Quang Scale (0-10) 0 Exertion Quang Scale (6-20) 6 1st minute Oxygen Delivery Method Room Air Pulse Ox (%) 97 Pulse Rate (60-100 beats/min) 100 2nd minute Oxygen Delivery Method Room Air Pulse Ox (%) 96 Pulse Rate (60-100 beats/min) 108 H 3rd minute Oxygen Delivery Method Room Air Pulse Ox (%) 96 Pulse Rate (60-100 beats/min) 114 H 4th minute Oxygen Delivery Method Room Air Pulse Ox (%) 96 Pulse Rate (60-100 beats/min) 113 H 5th minute Oxygen Delivery Method Room Air Pulse Ox (%) 96 Pulse Rate (60-100 beats/min) 118 H 6th minute Oxygen Delivery Method Room Air Pulse Ox (%) 97 Pulse Rate (60-100 beats/min) 118 H Dyspnea Quang Scale (0-10) 5 Exertion Quang Scale (6-20) 14 Post-test Oxygen Delivery Method Room Air Pulse Ox (%) 98 Pulse Rate (60-100 beats/min) 82 Full Laps Walked 18 Partial Lap, Number of Tiles Walked 26 Total Distance Walked (ft) 1088 Interpretation Interpretation: The patient was able to ambulate 1088 feet over the course of 6 minutes on room air with no assistive devices or breaks. The patient experienced no significant desaturation, but did have a peak heart rate of 118 bpm. These findings are consistent with a cardiovascular limitation exercise tolerance. Recommendations Recommendations: No supplemental oxygen is indicated at this time.
[2021-04-19 14:50] LABS: Rheumatoid Factor < 10.0 IU/mL (<15)
[2021-04-21 22:07] LABS: Cytoplasmic Ab (C-ANCA) <1:20 titer (Neg:<1:20)
[2021-04-22 09:28] LABS: CCP IgG Antibodies 5 units (0-19); Perinuclear Ab (P-ANCA) <1:20 titer (Neg:<1:20)
[2021-04-22 09:45] LABS: ANTINUCLEAR ANTIBODIES DIRECT Negative (Negative)
== END ==
PROVIDERS: PCP Nurse Practitioner Family; Referring Provider Internal Medicine Critical Care Medicine; Visit Provider Internal Medicine Critical Care Medicine
DX: R06.02 Shortness of breath (principal); I10 Essential (primary) hypertension
CPT/HCPCS: 36415; 85025; 86038; 86200; 86225; 86235; 86256; 86431; 94618

== ENCOUNTER 2021-05-20 16:41 | Outpatient (CLI) | payer MEDICARE, SELFPAY ==
[2021-05-20 17:33] LABS: Anion Gap 5 (5-15); BUN 25 mg/dL (7-18); Calcium,Total 9.3 mg/dL (8.5-10.1); Chloride 108 mmol/L (98-107); Creatinine, Serum 1.67 mg/dL (0.55-1.02); EST Glomerular Filtration Rate 31 mL/min (>60); Est Glom Filt Rate - Afr Amer 38 mL/min (>60); Glucose 109 mg/dL (74-106); Magnesium 1.7 mg/dL (1.6-2.6); Potassium 4.4 mmol/L (3.5-5.1); Sodium Level 140 mmol/L (136-145); T4 Free Direct 0.93 ng/dL (0.76-1.46); Thyroid Stim Hormone (TSH) 1.32 uIU/mL (0.358-3.74)
== END 2021-05-20 23:59 | disposition short-term general hospital (02) ==
PROVIDERS: PCP Nurse Practitioner Family; Visit Provider Nurse Practitioner Family
DX: R06.00 Dyspnea, unspecified (principal); I25.10 Atherosclerotic heart disease of native coronary artery without angina pectoris; I49.9 Cardiac arrhythmia, unspecified; I10 Essential (primary) hypertension; Z95.0 Presence of cardiac pacemaker
CPT/HCPCS: 36415; 80048; 83735; 83880; 84439; 84443

== ENCOUNTER 2021-06-07 14:45 | Outpatient (CLI) | payer MEDICARE, SELFPAY ==
--- NOTE | 2021-06-07 14:52 | ECHOD_ITS ---
Reason For Study: DYSPNEA/SOB Procedure This was a 2D Doppler, Color Flow transthoracic echocardiogram. Exam performed in department. Left Ventricle Normal LV size. Moderately severe global left ventricular systolic dysfunction. The estimated ejection fraction is 30 %. Infero-Basal: Akinetic. Basal inferoseptal: Akinetic. The rest of the wall segments are hypokinetic. Right Ventricle Normal RV size. ICD or pacer leads identified within the right ventricle. Normal systolic function. Atria Normal left atrium. Normal right atrium. Mitral Valve Normal mitral valve. Mild (1+) eccentric mitral valve insufficiency. Tricuspid Valve Normal tricuspid valve. Mild (1+) tricuspid valve insufficiency. Pulmonary artery systolic pressure is 38 mmHg. Aortic Valve Trisinus/trileaflet aortic valve. Pulmonic Valve Normal pulmonic valve. Mild (1+) pulmonic valve insufficiency. Great Vessels Normal aortic root. Pericardium/Pleural No pericardial effusion. MMode/2D Measurements & Calculations LVIDd: 5.3 cm IVSd: 0.92 cm Ao root diam: 3.2 cm LVIDs: 4.1 cm LVPWd: 1.1 cm RVDd: 3.6 cm FS: 21.0 % LAV(MOD-bp): 53.4 ml LVAd ap4: 33.1 cm2 SV(MOD-sp4): 42.9 ml LAV(MOD-bp) Indexed: 29.3 ml/m2 LVLd ap4: 7.3 cm LAV(MOD-sp2): 49.5 ml EDV(MOD-sp4): 122.1 ml LAV(MOD-sp4): 54.3 ml EDV(sp4-el): 126.9 ml LVAs ap4: 26.9 cm2 LVLs ap4: 7.5 cm ESV(MOD-sp4): 79.2 ml ESV(sp4-el): 81.8 ml EF(MOD-sp4): 35.1 % EF(sp4-el): 35.6 % SV(sp4-el): 45.2 ml LA A4 area: 19.7 cm2 LA dimension(2D): 3.8 cm RA A4 area: 16.5 cm2 Doppler Measurements & Calculations MV E max stephania: 70.3 cm/sec Ao V2 max: 178.5 cm/sec LV V1 max: 103.6 cm/sec Ao max P.9 mmHg LV V1 max P.4 mmHg PA V2 max: 128.2 cm/sec TR max stephania: 291.9 cm/sec TR max P.1 mmHg ECHO/Echo Complete Interpretation Summary Normal LV size. Moderately severe global left ventricular systolic dysfunction. The estimated ejection fraction is 30 %. Pulmonary artery systolic pressure is 38 mmHg. Mild (1+) eccentric mitral valve insufficiency. Compared to previous study, the left ventricular systolic function has worsened .. Ordering Physician: Bart Gonzalez/Derek Brumfield Referring Physician: SUGAR DELONG Performed By: Joyce Pandey RDCS
[2021-06-07 17:37] LABS: Anion Gap 6 (5-15); BUN 34 mg/dL (7-18); BUN/Creat Ratio 18.1 RATIO (10-20); Chloride 104 mmol/L (98-107); Creatinine, Serum 1.88 mg/dL (0.55-1.02); EST Glomerular Filtration Rate 27 mL/min (>60); Est Glom Filt Rate - Afr Amer 33 mL/min (>60); Glucose 104 mg/dL (74-106); Potassium 4.5 mmol/L (3.5-5.1); Sodium Level 138 mmol/L (136-145)
== END 2021-06-07 23:59 | disposition home or self-care (01) ==
PROVIDERS: PCP Nurse Practitioner Family; Referring Provider Nurse Practitioner Family; Visit Provider Nurse Practitioner Family
DX: I25.10 Atherosclerotic heart disease of native coronary artery without angina pectoris (principal); I50.32 Chronic diastolic (congestive) heart failure; I11.0 Hypertensive heart disease with heart failure; R06.02 Shortness of breath; Z95.5 Presence of coronary angioplasty implant and graft; Z95.0 Presence of cardiac pacemaker
CPT/HCPCS: 36415; 80048; 93306

== ENCOUNTER → 2022-05-31 | Outpatient (CLI) | payer MEDICARE, SELFPAY ==
--- NOTE | 2022-05-31 14:49 | ECHOL_ITS ---
Reason For Study: Dyspnea/SOB Procedure This was a limited 2D transthoracic echocardiogram. The study was technically limited. Limited views were obtained. Exam performed in department. Left Ventricle Mildly dilated left ventricle. The estimated ejection fraction is 30 %. Moderately severe segmental systolic dysfunction (see wall motion). Mid-Inferior: Akinetic. Infero-Basal: Akinetic. Anterio- Basal: Normal. Mid-Anterior : Normal. Right Ventricle Normal RV size. Normal systolic function. Atria Normal left atrium. Normal right atrium. Mitral Valve Bileaflet diffuse mitral valve thickening. Mild-Moderate (1-2+) eccentric mitral valve insufficiency. Aortic Valve Trisinus/trileaflet aortic valve. Pulmonic Valve Normal pulmonic valve. Great Vessels Normal aortic root. The pulmonary artery is normal size. Normal inferior vena cava. Pericardium/Pleural No pericardial effusion. MMode/2D Measurements & Calculations LVIDd: 6.1 cm IVSd: 1.0 cm LA dimension: 4.5 cm LVIDs: 5.5 cm LVPWd: 1.1 cm FS: 9.9 % LAV(MOD-bp): 53.3 ml LA A4 area: 19.4 cm2 LAV(MOD-bp) Indexed: 29.5 ml/m2 LAV(MOD-sp2): 48.5 ml LAV(MOD-sp4): 52.3 ml Time Measurements MV dec time: 0.27 sec Doppler Measurements & Calculations MV E max stephania: 54.8 cm/sec MR max stephania: 446.9 cm/sec MV A max stephania: 93.0 cm/sec MV dec slope: 209.7 cm/sec2 MR max P.9 mmHg MV E/A: 0.59 TR max stephania: 268.4 cm/sec TR max P.8 mmHg ECHO/Echo, Limited Study Interpretation Summary Mildly dilated left ventricle. The estimated ejection fraction is 30 %. Moderately severe segmental systolic dysfunction (see wall motion). Mild-Moderate (1-2+) eccentric mitral valve insufficiency. Compared to previous study, the left ventricular systolic function is the same. . Ordering Physician: Bart Gonzalez Referring Physician: Bart Gonzalez Performed By: Michael Walls RCS
[2022-05-31 16:36] LABS: BNP,B-Type NATRIURETIC PEPTIDE 223.1 pg/mL (0-100)
[2022-05-31 16:37] LABS: Anion Gap 6 (5-15); BUN 22 mg/dL (7-18); BUN/Creat Ratio 19.3 RATIO (10-20); Calcium,Total 8.9 mg/dL (8.5-10.1); Chloride 104 mmol/L (98-107); Creatinine, Serum 1.14 mg/dL (0.55-1.02); EST Glomerular Filtration Rate 48 mL/min (>60); Est Glom Filt Rate - Afr Amer 59 mL/min (>60); Glucose 98 mg/dL (74-106); Potassium 4.3 mmol/L (3.5-5.1); Sodium Level 138 mmol/L (136-145)
== END | disposition home or self-care (01) ==
PROVIDERS: PCP Family Medicine; Referring Provider Nurse Practitioner Family; Visit Provider Nurse Practitioner Family
DX: R06.02 Shortness of breath (principal); I50.32 Chronic diastolic (congestive) heart failure; I25.5 Ischemic cardiomyopathy; I25.10 Atherosclerotic heart disease of native coronary artery without angina pectoris
CPT/HCPCS: 36415; 80048; 83880; 93308

== ENCOUNTER → 2022-11-07 | Outpatient (CLI) | payer MEDICARE, SELFPAY ==
--- NOTE | 2022-11-07 15:10 | RAD_ITS ---
STUDY: X-RAY CHEST REASON FOR EXAM: Female, 82 years old. Shortness of breath. TECHNIQUE: Frontal and lateral views of the chest. COMPARISON: January 01, 2021. FINDINGS: Cardiomegaly with dual-lead cardiac pacer. Aortic tortuosity with calcification. Increased diffuse interstitial prominence compared to the prior study. Bilateral small pleural effusions/pleural thickening. No abnormality of the visualized soft tissue structures of the upper abdomen. RAD/Chest PA and Lateral IMPRESSION: Findings compatible with slight worsening of interstitial edema/congestive failure. Follow-up chest imaging to resolution recommended. No acute or emergent abnormality. Electronically Signed: Cale Garcia MD at 15:25 EDT ,
[2022-11-07 16:52] LABS: Hematocrit 38.3 % (37-47); Mean Corp Hgb Conc 31.3 g/dL (32-36); Mean Corpuscular Hgb 29.9 pg (27.0-32.0); Mean Corpuscular Volume 95.3 fL (81-99); Mean Platelet Vol. 11.6 fl (6.2-12.0); Platelet Count 204 K/mm3 (150-450); RBC Distribution Width CV 14.1 % (11.6-14.6); RBC Distribution Width SD 49.4 fl (35.1-43.9); Red Blood Count 4.02 M/mm3 (4.2-5.4); White Blood Count 9.4 K/mm3 (4.4-11.0)
[2022-11-07 17:08] LABS: BNP,B-Type NATRIURETIC PEPTIDE 1561.7 pg/mL (0-100)
[2022-11-07 17:17] LABS: Anion Gap 4 (5-15); BUN 17 mg/dL (7-18); BUN/Creat Ratio 15.7 RATIO (10-20); Calcium,Total 8.1 mg/dL (8.5-10.1); Chloride 111 mmol/L (98-107); Creatinine, Serum 1.08 mg/dL (0.55-1.02); EST Glomerular Filtration Rate 51 mL/min (>60); Est Glom Filt Rate - Afr Amer 62 mL/min (>60); Glucose 98 mg/dL (74-106); Potassium 3.8 mmol/L (3.5-5.1); Sodium Level 142 mmol/L (136-145); Thyroid Stim Hormone (TSH) 1.26 uIU/mL (0.358-3.74)
== END | disposition home or self-care (01) ==
PROVIDERS: PCP Family Medicine; Referring Provider Internal Medicine Cardiovascular Disease; Visit Provider Internal Medicine Cardiovascular Disease
DX: I25.5 Ischemic cardiomyopathy (principal); I50.32 Chronic diastolic (congestive) heart failure; R06.02 Shortness of breath
CPT/HCPCS: 36415; 71046; 80048; 83880; 84443; 85027

== ENCOUNTER → 2022-11-14 | Outpatient (CLI) | payer MEDICARE, SELFPAY ==
[2022-11-14 12:12] LABS: Partial Thromboplast Time 29.7 Seconds (24.1-36.2)
[2022-11-14 12:54] LABS: International Normalized Ratio 1.3; Prothrombin Time (Protime)PT. 16.1 SECONDS (11.7-14.9)
== END | disposition home or self-care (01) ==
LOC: LAB 11:29
PROVIDERS: PCP Family Medicine; Referring Provider Physician Assistant Medical; Visit Provider Physician Assistant Medical
DX: I25.10 Atherosclerotic heart disease of native coronary artery without angina pectoris (principal); I50.32 Chronic diastolic (congestive) heart failure
CPT/HCPCS: 36415; 85610; 85730

== ENCOUNTER → 2022-11-22 | Day surgery (SDC) | payer MEDICARE, SELFPAY ==
[2022-11-21 08:04] VITALS: BMI 30.2
--- NOTE | 2022-11-27 14:21 | CL.D_ITS ---
Patient Name: SOHAIL ALCARAZ Study Date: 11/22/2022 Performing: Derek Brumfield MD Ht: 63 inches 160.02 cm : 1940 Wt: 171.2 lbs 77.56 kg Age: 82 Gender: female BSA: 1.81 PROCEDURE(S) PERFORMED [id number])LHC/COR/LV CLINICAL PROFILE AND INDICATIONS Heart Failure: NYHA Class: 2, Newly Diagnosed: Yes, Heart Failure Type: Systolic Stress/Imaging Stress/Image Study Performed: No CAD Presentations: Stable angina. CONCLUSIONS Distal left main coronary artery and patent stent in the circumflex artery and right coronary artery with reduced left ventricular systolic function estimated EF 30% with moderate mitral regurgitation. RECOMMENDATIONS Surgical evaluation for possible bypass surgery and mitral valve repair DESCRIPTION OF PROCEDURE The patient arrived to the procedure lab. The risks and benefits of the procedure as well as a full description of our services here and current unavailability of surgical backup were fully explained to the patient and/or their significant other prior to the catheterization. The Timeout was completed, verifying the correct patient and procedure. The patient's procedural site was prepped and draped in the usual fashion. Local anesthetic was given subcutaneously to right radial region with Lidocaine 2%. Using a modified Seldinger technique, arterial access was obtained via the right ulnar artery, a 6Fr sheath was inserted. Left Coronary Artery selective angiography was performed in multiple views using a 5 Fr. 4.0 [place] catheter. Right Coronary Artery selective angiography was then performed in multiple views using a 5 Fr. 3DRC (Robert) catheter. Left Ventriculography was performed in MEHTA projection using a 5 Fr. Pigtail catheter. LV to AO pullback pressures were then recorded.The arterial sheath was pulled and a TR Band was applied for hemostasis CORONARY ANGIOGRAPHY DOMINANCE: Right Dominant LEFT HEART ASSESSMENT Left Ventricular Ejection Fraction: by LV Gram 30 % Global Hypokinesis - Severe Depressed Left Ventricular systolic function LEFT MAIN: Distal 60 LEFT ANTERIOR DESCENDING ARTERY: Mild luminal irregularities CIRCUMFLEX ARTERY: Mild luminal irregularities less than 30% OM 1: Proximal - Previously placed stent is patent RIGHT CORONARY ARTERY: Placed stents in the proximal and mid segments appear to be patent VALVE FINDINGS: Mitral Valve Insufficiency - Grade 3 COMPLICATIONS No Complications PROCEDURE MEDICATIONS Versed 1 mg IV Fentanyl 50 mcg IV Aspirin (325mg) 1 Tabs PO @ 11/22/2022 10:15:19 SUMMARY OF HEMODYNAMIC DATA Time AIR REST ECG 10:13:49 AO 90/45 (66) SA 11:58:04 AO 130/53 (83) 12:23:18 LV 131/10, 20 12:34:17 LV 137/5, 24 12:34:25 LV 124/2, 20 12:35:19 LV 126/6, 17 12:35:28 LVp 131/7, 24 12:35:39 AOp 127/53 (84) 12:35:46 AIR REST 12:50:18 Signed By Derek Brumfield MD On 11/27/2022 14:20:33 Derek Brumfield MD
== END | disposition home or self-care (01) ==
PROVIDERS: PCP Family Medicine; Referring Provider Internal Medicine Cardiovascular Disease; Visit Provider Internal Medicine Cardiovascular Disease
DX: I34.0 Nonrheumatic mitral (valve) insufficiency (principal); I50.32 Chronic diastolic (congestive) heart failure; I11.0 Hypertensive heart disease with heart failure; I48.92 Unspecified atrial flutter; Z95.5 Presence of coronary angioplasty implant and graft; I25.10 Atherosclerotic heart disease of native coronary artery without angina pectoris; I25.2 Old myocardial infarction; Z79.82 Long term (current) use of aspirin; Z79.899 Other long term (current) drug therapy; Z87.891 Personal history of nicotine dependence; I25.5 Ischemic cardiomyopathy; Z79.01 Long term (current) use of anticoagulants; Z95.0 Presence of cardiac pacemaker
CPT/HCPCS: 93458; 99152; 99153; J7040; Q9967; C1769; C1894

== ENCOUNTER 2022-12-11 13:44 | Emergency (ER) | payer MEDICARE, SELFPAY ==
[2022-12-11 13:47] VITALS: BP 121/56; PULSE 66; RESP 18; TEMP 35.8; O2SAT 97; BMI 30.2
--- NOTE | 2022-12-11 16:23 | CT_ITS ---
EXAM: CT HEAD WITHOUT INTRAVENOUS CONTRAST CLINICAL INDICATION: head injury TECHNIQUE: Multiple axial images were obtained of the head without intravenous contrast. This CT exam was performed using one or more of the following dose reduction techniques: automated exposure control, adjustment of the mA and/or kV according to patient size, and/or use of iterative reconstruction technique. COMPARISON: No relevant prior studies available. FINDINGS: BRAIN AND EXTRA-AXIAL SPACES: There is hypoattenuation in the periventricular white matter. No intra- or extra-axial hemorrhage. No evidence of acute infarct. No intracranial mass or mass effect. There is preservation of the burnett/white matter interface. Posterior fossa structures are unremarkable. No hydrocephalus. Basal cisterns are patent. BONES/JOINTS: Unremarkable. No discrete lytic or blastic abnormalities. SINUSES: Unremarkable as visualized. Clear. MASTOID AIR CELLS: Unremarkable. Clear. ORBITS: Visualized globes, extraocular muscles, optic nerves and retrobulbar fat appear unremarkable. CT/Brain/Head without Contrast IMPRESSION: 1. No acute intracranial abnormality. 2. Underlying small vessel ischemia. Electronically Signed: Carlin Gomez MD at 17:22 EDT ,
--- NOTE | 2022-12-11 16:24 | ED.VIS.FALL ---
HPI HPI - Fall History of Present Illness Chief Complaint: Fall Detail of Chief Complaint: Fall with head injury Informant: patient Narrative Narrative: Patient presents to the emergency department after sustaining a fall this morning. Patient states that she got up too quick and lost her balance and fell and hit her head on the wall and also bumped her left knee. She denies loss of consciousness. She denies neck pain. Currently denies any headache. She states she took some Tylenol because her glasses bumped her left ear and she noted some bruising to her ear. Patient on Eliquis but states has been off for the last 5 days because she is scheduled in 3 days to have two-vessel bypass at [facility]. Patient has been ambulatory. [facility] Medical History Acute kidney injury Anxiety Atherosclerosis of coronary artery of [place] heart without angina pectoris Chronic diastolic (congestive) heart failure Essential (primary) hypertension Fractured sternum History of ST elevation myocardial infarction (STEMI) (11/16/18) History of vertigo Ischemic cardiomyopathy Mobitz (type) II atrioventricular block 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) Home Medications aspirin 81 mg chewable tablet 81 mg PO DAILY@0800 circulation 12/08/16 [History Last Taken 11/22/22] erythromycin 5 mg/gram (0.5 %) eye ointment 1 applic LEFT EYE Q eye health 12/08/16 [History Last Taken 07/31/18] omeprazole 40 mg capsule,delayed release 40 mg PO DAILY acid reflux 12/08/16 [History Last Taken 11/22/22] meclizine 25 mg tablet 25 mg PO TID PRN PRN Dizziness 08/01/18 [History Last Taken Unknown] acyclovir 800 mg tablet 800 mg PO DAILY 09/11/19 [History Last Taken 11/22/22] difluprednate 0.05 % eye drops 1 drp ophthalmic (eye) Q OTHER DAY 05/13/20 [History Last Taken Unknown] timolol maleate 0.5 % eye drops 1 drp ophthalmic (eye) BID 02/14/22 [History Last Taken Unknown] vit A 300 mcg-C 200 mg-E 27 mg-lutein 2 mg and minerals tablet (Eye Health Plus Lutein) 1 tab PO BID 02/14/22 [History Last Taken Unknown] apixaban 5 mg tablet (Eliquis) 5 mg PO BID #60 tabs 09/19/22 [Rx Last Taken 11/18/22] carvedilol 12.5 mg tablet 12.5 mg PO BID #60 tabs 09/19/22 [Rx Last Taken 11/22/22] dapagliflozin propanediol 10 mg tablet (Farxiga) 10 mg PO DAILY #90 tabs 09/19/22 [Rx Last Taken 11/22/22] sacubitril 24 mg-valsartan 26 mg tablet (Entresto) 1 tab PO BID #60 tabs 09/19/22 [Rx Last Taken Unknown] furosemide 40 mg tablet 40 mg PO .COMPLEX #180 tabs 11/07/22 [Rx Last Taken Unknown] atorvastatin 20 mg tablet 20 mg PO QHS #90 tabs 12/08/22 [Rx Last Taken Unknown] Allergy/AdvReac Type Severity Reaction Status Date / Time morphine Allergy Vomiting Verified 11/14/22 10:25 Family History Father Heart disease Surgical History History of coronary artery stent placement (12/19/18) History of left heart catheterization (06/21/20) Presence of permanent cardiac pacemaker (08/02/18) Social History Smoking Status: Former smoker how long ago did patient quit smokin alcohol intake: never substance use type: does not use caffeine: Yes Type: coffee Number of servings: 2 ROS ROS ED ROS Narrative Head injury Review of Systems ROS Unobtainable: other Constitutional Constitutional ED: Reports lethargy; Denies chills, fever(s), sweats or weight loss Eyes Eyes: Denies blurry vision, change in vision or diplopia ENT ENT ED: Denies rhinorrhea or sore throat Cardiovascular Cardiovascular: Denies chest pain, orthopnea or racing heartbeat Respiratory/Chest Respiratory/Chest: Denies cough, dyspnea, dyspnea on exertion, orthopnea or sputum Gastrointestinal Gastrointestinal: Denies abdominal pain, diarrhea, nausea or vomiting Genitourinary Genitourinary ED: Denies dysuria, hematuria or urinary frequency Musculoskeletal Musculoskeletal: Denies arthralgias, back pain, myalgias or neck pain Integumentary Denies abscess, Abrasions or rash Neurologic Neurologic: Denies headache(s) or weakness Psychiatric Psychiatric: Denies anxiety, depression or suicidal thoughts Endocrine Endocrinology: Denies polydipsia, polyphagia or polyuria Hematologic/Lymphatic Hematologic/Lymphatic: Denies easy bleeding, easy bruising or lymphadenopathy Allergic/Immunologic Allergic/Immunologic ED: Denies mouth swelling, tongue swelling or urticaria EXAM Physical Exam Const Vital Signs: 12/11/22 13:47 12/11/22 16:23 Temperature 96.5 F L Temperature Source Temporal Pulse Rate 66 Respiratory Rate 18 Respiratory Effort Normal Respiratory Depth Normal Respiratory Pattern Normal Blood Pressure 121/56 H Blood Pressure Mean 77 Pulse Ox 97 Positive well nourished and well developed General Appearance ED: well developed and NAD HEENT Reports TM's clear and moist mucous membranes HEENT Narrative: Patient has small area of ecchymosis and bruising to the upper outer aspect of the left pinna without any broken skin noted. No hemotympanum normocephalic and atraumatic; Negative for trauma or tenderness Tympanic Membrane ED: Yes TM's clear Eyes PERRL and EOMs intact bilaterally General Eye ED: Negative for pale conjunctiva or scleral icterus Neck no lymphadenopathy, supple and no JVD General: Negative for tenderness Chest Wall inspection of chest normal and palpation of chest normal Chest: Negative for tenderness Resp normal respiratory effort and clear to auscultation bilaterally Effort and Inspection: Negative for respiratory distress or pain with movement Auscultation: Negative for rhonchi, wheezes or diminished lung sounds Cardio regular rate, regular rhythm, S1 normal heart sound, S2 normal heart sound and no murmurs Peripheral Pulses: pulses 2+ throughout GI normal to inspection, nondistended, normoactive bowel sounds, soft to palpation, non-tender, non-distended and no masses Back/Spine no CVA tenderness and no thoracic nor lumbar tenderness Extremity normal to inspection General Extremety ED: Negative for edema General Extremity: Negative for edema Neuro oriented x3, CN's II-XII intact bilaterally, no sensory deficits noted and gait normal Sensorium / Orientation: awake, alert, oriented to person, oriented to place and oriented to time Motor Exam: strength 5/5 throughout and strength abnormal Psych mental status grossly normal Skin no rashes or lesions noted and no wounds MDM MDM MDM Narrative Medical decision making narrative: Patient presents with head injury on Eliquis but off the medication for the last 5 days. She has scheduled open heart surgery in 3 days and her surgeon wanted the patient evaluated. CT scan of the brain without contrast was obtained to rule out intracranial hemorrhage which was negative for acute intracranial hemorrhage. Patient will be discharged to home. Advised to return if worsening headache, vomiting, difficulty with balance or speech, or condition should worsen in any way. Radiography Diagnostic Testing: Clinical Impression(s) from Imaging Studies Brain CT 12/11/22 16:23 IMPRESSION: 1. No acute intracranial abnormality. 2. Underlying small vessel ischemia. Electronically Signed: Carlin Gomez MD at 17:22 EDT , Discharge Plan Triage Chief Complaint: Fall ED Provider: Kobi Manuel Dx/Rx/DC Orders Clinical Impression: Closed head injury, Fall, Contusion of left ear, Contusion of knee, left Instructions: ED Head Injury (Adult), ED Fall Prevention Prescriptions: No Action acyclovir 800 mg tablet 800 mg PO DAILY difluprednate 0.05 % drops 1 drp OPHTHALMIC Q OTHER DAY Patient Comments: INSTILL 1 DROP INTO LEFT EYE THREE TIMES A WEEK timolol maleate 0.5 % drops 1 drp ophthalmic (eye) BID Rx Instructions: left eye Eye Health Plus Lutein 300 mcg-200 mg-27 mg-2 mg tablet 1 tab PO BID carvedilol 12.5 mg tablet 12.5 mg PO BID Qty: 60 3RF Rx Instructions: must administer with a meal/food Eliquis 5 mg tablet 5 mg PO BID Qty: 60 3RF Entresto 24-26 mg tablet 1 tab PO BID Qty: 60 3RF Farxiga 10 mg tablet 10 mg PO DAILY Qty: 90 3RF omeprazole 40 MG capsule,delayed release(DR/EC) 40 mg PO DAILY Patient Comments: erythromycin 1 APPLIC ointment 1 applic LEFT EYE QHS Patient Comments: left eye aspirin 81 MG tablet,chewable 81 mg PO DAILY@0800 meclizine 25 MG tablet 25 mg PO TID PRN PRN (Reason: Dizziness) furosemide 40 mg tablet 40 mg PO .COMPLEX Qty: 180 3RF Rx Instructions: 40 mg orally twice a day on 11/08, 11/09, and 11/10 then take once a day.; will need extra pills in case of weight gain/sob/swelling atorvastatin 20 mg tablet 20 mg PO QHS Qty: 90 3RF Primary Care Provider: Luiz Avery Referrals: Luiz Avery MD [Primary Care Provider] - Disposition Disposition: Home, Self Care
[2022-12-11 18:15] VITALS: BP 138/77; PULSE 62; RESP 15; O2SAT 98
== END 2022-12-11 18:16 | disposition home or self-care (01) ==
PROVIDERS: Emergency Provider Emergency Medicine; PCP Family Medicine; Visit Provider Emergency Medicine
DX: S09.90XA Unspecified injury of head, initial encounter (principal); I50.32 Chronic diastolic (congestive) heart failure; I11.0 Hypertensive heart disease with heart failure; S00.432A Contusion of left ear, initial encounter; Z87.891 Personal history of nicotine dependence; W19.XXXA Unspecified fall, initial encounter; I25.10 Atherosclerotic heart disease of native coronary artery without angina pectoris; S80.02XA Contusion of left knee, initial encounter
CPT/HCPCS: 70450; 99282

== ENCOUNTER → 2023-03-01 | Outpatient (CLI) | payer MEDICARE, SELFPAY | END | disposition home or self-care (01) | LOC: PSN 13:47 | PROVIDERS: PCP Family Medicine; Referring Provider Nurse Practitioner Gerontology; Visit Provider Nurse Practitioner Gerontology | DX: I48.92 Unspecified atrial flutter (principal); R06.02 Shortness of breath | CPT/HCPCS: 93225; 93226 ==

== ENCOUNTER → 2023-03-06 | Outpatient (CLI) | payer MEDICARE, SELFPAY ==
[2023-03-06 13:28] LABS: Hematocrit 38.8 % (37-47); Hemoglobin 11.9 g/dL (12.0-15.0); Mean Corp Hgb Conc 30.7 g/dL (32-36); Mean Corpuscular Hgb 29.9 pg (27.0-32.0); Mean Corpuscular Volume 97.5 fL (81-99); Mean Platelet Vol. 10.9 fl (6.2-12.0); Platelet Count 223 K/mm3 (150-450); RBC Distribution Width CV 15.4 % (11.6-14.6); RBC Distribution Width SD 55.8 fl (35.1-43.9); Red Blood Count 3.98 M/mm3 (4.2-5.4); White Blood Count 9.3 K/mm3 (4.4-11.0)
[2023-03-06 13:53] LABS: BNP,B-Type NATRIURETIC PEPTIDE 1191.5 pg/mL (0-100)
[2023-03-06 14:07] LABS: Anion Gap 6 (5-15); BUN 20 mg/dL (7-18); BUN/Creat Ratio 16.3 RATIO (10-20); Calcium,Total 8.5 mg/dL (8.5-10.1); Chloride 108 mmol/L (98-107); Creatinine, Serum 1.23 mg/dL (0.55-1.02); EST Glomerular Filtration Rate 44 mL/min (>60); Est Glom Filt Rate - Afr Amer 54 mL/min (>60); Glucose 103 mg/dL (74-106); Potassium 3.6 mmol/L (3.5-5.1); Sodium Level 141 mmol/L (136-145); Thyroid Stim Hormone (TSH) 1.56 uIU/mL (0.358-3.74)
== END | disposition home or self-care (01) ==
LOC: LAB 12:51
PROVIDERS: PCP Family Medicine; Referring Provider Nurse Practitioner Gerontology; Visit Provider Nurse Practitioner Gerontology
DX: R42 Dizziness and giddiness (principal); I50.32 Chronic diastolic (congestive) heart failure; I25.5 Ischemic cardiomyopathy; I25.10 Atherosclerotic heart disease of native coronary artery without angina pectoris; R53.83 Other fatigue; Z95.1 Presence of aortocoronary bypass graft; Z98.890 Other specified postprocedural states; R06.02 Shortness of breath
CPT/HCPCS: 36415; 80048; 83880; 84443; 85027

== ENCOUNTER → 2023-03-13 | Outpatient (CLI) | payer MEDICARE, SELFPAY ==
[2023-03-13 15:43] LABS: Absolute Lymphocyte Count 1.61 X10^3/uL (0.83-4.51); Basophil# 0.04 X10^3/uL; Basophil% 0.4 % (0-1); Eosinophil# 0.16 X10^3/uL; Eosinophils% 1.7 % (0-5); Hematocrit 36.6 % (37-47); Hemoglobin 11.4 g/dL (12.0-15.0); Lymphocyte # 1.61 X10^3/ul (0.83-4.51); Lymphocyte % 17.1 % (19-41); Mean Corp Hgb Conc 31.1 g/dL (32-36); Mean Corpuscular Hgb 30.1 pg (27.0-32.0); Mean Corpuscular Volume 96.6 fL (81-99); Mean Platelet Vol. 11.3 fl (6.2-12.0); Monocyte# 0.62 X10^3/uL; Monocyte% 6.6 % (0-10); NRBC Flagged by Analyzer 0 % (0-5); Neutrophil # 6.95 X10^3/uL (2.7-7.7); Neutrophil % 73.9 % (47-70); Platelet Count 196 K/mm3 (150-450); RBC Distribution Width CV 15.4 % (11.6-14.6); RBC Distribution Width SD 54.8 fl (35.1-43.9); Red Blood Count 3.79 M/mm3 (4.2-5.4); White Blood Count 9.4 K/mm3 (4.4-11.0)
[2023-03-13 16:08] LABS: ALB/GLOB Ratio 0.9 RATIO (0.9-2.4); AST(SGOT) 31 U/L (15-37); Alanine Aminotransfer ALT/SGPT 33 U/L (13-56); Albumin, Serum 3.4 g/dL (3.2-5.0); Alkaline Phosphatase 117 U/L (45-117); Anion Gap 5 (5-15); BUN 23 mg/dL (7-18); BUN/Creat Ratio 14.7 RATIO (10-20); Calcium,Total 7.6 mg/dL (8.5-10.1); Chloride 105 mmol/L (98-107); Creatinine, Serum 1.56 mg/dL (0.55-1.02); EST Glomerular Filtration Rate 34 mL/min (>60); Est Glom Filt Rate - Afr Amer 41 mL/min (>60); Globulin 3.6 g/dL (2.2-4.2); Glucose 130 mg/dL (74-106); Potassium 3.2 mmol/L (3.5-5.1); Sodium Level 139 mmol/L (136-145); T4 Total, Thyroxin 9.4 ug/dL (4.8-13.9)
[2023-03-13 16:09] LABS: BNP,B-Type NATRIURETIC PEPTIDE 1066.8 pg/mL (0-100)
== END | disposition home or self-care (01) ==
LOC: LAB 15:05
PROVIDERS: PCP Family Medicine; Visit Provider Nurse Practitioner Gerontology
DX: R06.02 Shortness of breath (principal); I50.32 Chronic diastolic (congestive) heart failure; I25.5 Ischemic cardiomyopathy; R53.83 Other fatigue; R42 Dizziness and giddiness; I25.10 Atherosclerotic heart disease of native coronary artery without angina pectoris; Z79.01 Long term (current) use of anticoagulants
CPT/HCPCS: 36415; 80053; 83880; 84436; 84443; 85025

== ENCOUNTER 2023-03-14 14:55 | Emergency (ER) | payer MEDICARE, SELFPAY ==
[2023-03-14 14:56] VITALS: BP 110/70; PULSE 88; RESP 16; TEMP 36.3; O2SAT 98
[2023-03-14 16:43] LABS: Absolute Lymphocyte Count 1.63 X10^3/uL (0.83-4.51); Absolute Neutrophil Count 6.2 X10^3/uL (2.0-7.7); Basophil# 0.04 X10^3/uL; Basophil% 0.5 % (0-1); Eosinophil# 0.15 X10^3/uL; Eosinophils% 1.7 % (0-5); Hematocrit 35.2 % (37-47); Hemoglobin 11.2 g/dL (12.0-15.0); Lymphocyte # 1.63 X10^3/ul (0.83-4.51); Lymphocyte % 18.9 % (19-41); Mean Corp Hgb Conc 31.8 g/dL (32-36); Mean Corpuscular Hgb 29.9 pg (27.0-32.0); Mean Corpuscular Volume 94.1 fL (81-99); Mean Platelet Vol. 11.2 fl (6.2-12.0); Monocyte# 0.59 X10^3/uL; Monocyte% 6.9 % (0-10); NRBC Flagged by Analyzer 0 % (0-5); Neutrophil # 6.16 X10^3/uL (2.7-7.7); Neutrophil % 71.5 % (47-70); Platelet Count 183 K/mm3 (150-450); RBC Distribution Width CV 15.4 % (11.6-14.6); Red Blood Count 3.74 M/mm3 (4.2-5.4); White Blood Count 8.6 K/mm3 (4.4-11.0)
--- NOTE | 2023-03-14 16:45 | RAD_ITS ---
STUDY: X-RAY CHEST REASON FOR EXAM: Female, 83 years old. h[place] TECHNIQUE: Single frontal view of the chest. COMPARISON: October 08, 2022 FINDINGS: Bipolar pacer on the left. New sternotomy wires. Atrial appendage clip is new. Mild interstitial infiltrates/edema improved. Possible small bilateral pleural effusions. Cardiomegaly. Normal mediastinum and gilles. Normal visualized pulmonary arteries. Normal visualized aortic arch and descending thoracic aorta. Normal visualized thoracic spine. Normal visualized ribs, clavicles, and shoulders. There is no demonstrated abnormality of the visualized soft tissue structures of the upper abdomen. RAD/Chest PA and Lateral IMPRESSION: Mild CHF improved. Status post sternotomy and atrial appendage clip. Electronically Signed: Yair Benítez MD at 17:20 EST ,
[2023-03-14 16:56] VITALS: BP 98/66; PULSE 88; RESP 16; O2SAT 96
[2023-03-14 17:00] LABS: BNP,B-Type NATRIURETIC PEPTIDE 1419.1 pg/mL (0-100)
[2023-03-14 17:04] LABS: Anion Gap 10 (5-15); BUN 24 mg/dL (7-18); BUN/Creat Ratio 16.4 RATIO (10-20); Calcium,Total 7.4 mg/dL (8.5-10.1); Chloride 106 mmol/L (98-107); Creatinine, Serum 1.46 mg/dL (0.55-1.02); EST Glomerular Filtration Rate 36 mL/min (>60); Est Glom Filt Rate - Afr Amer 44 mL/min (>60); Glucose 104 mg/dL (74-106); Potassium 3.5 mmol/L (3.5-5.1); Sodium Level 143 mmol/L (136-145); Troponin-I HS 28 pg/mL (3.0-54.0)
--- NOTE | 2023-03-14 17:05 | EX.ED.DYSGE1 ---
HPI History of Present Illness Chief Complaint: General Illness Informant: patient Narrative Narrative: Patient is 83-year-old female with history of pacemaker, Mobitz type II block, coronary artery disease with CABG performed at [facility] approximately 8 weeks ago and ischemic cardiomyopathy presenting with worsening fatigue, exercise intolerance no orthopnea. Patient states that she felt fine after her surgery and spent 8 weeks at rehab [facility]. The first week that she was home she was feeling good but then over the past 2 weeks she feels she is been going downhill. Denies any weight change. Notes that her electric welder been working on titrating her medicine. She states she feels exhausted all the time and has no energy. She states her breathing feels different and she gets short of breath with minimal exertion. She denies any dizziness but does have associated lightheadedness. States she feels that she has a hard time walking because her legs just feel weak. States her blood pressures been lower than normal in the 90s systolic. Denies any chest pain. Over the past week has developed difficulty sleeping. She states she is waking up having a hard time breathing and having to go into the chair. She did have blood work yesterday and her PCP recommend she come to the ER but she is not entirely sure why. She denies any fever or chills. Denies any productive cough. Denies any swelling of her legs or recent weight change. Denies any diarrhea, constipation or melanotic stools. Is on Eliquis. [facility] Medical History Acute kidney injury Anxiety Atherosclerosis of coronary artery of [place] heart without angina pectoris Chronic diastolic (congestive) heart failure Essential (primary) hypertension Fractured sternum History of ST elevation myocardial infarction (STEMI) (11/16/18) History of vertigo Ischemic cardiomyopathy Mobitz (type) II atrioventricular block 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) Home Medications aspirin 81 mg chewable tablet 81 mg PO DAILY@0800 circulation 12/08/16 [History Last Taken 11/22/22] erythromycin 5 mg/gram (0.5 %) eye ointment 1 applic LEFT EYE [facility] eye health 12/08/16 [History Last Taken 07/31/18] omeprazole 40 mg capsule,delayed release 40 mg PO DAILY acid reflux 12/08/16 [History Last Taken 11/22/22] meclizine 25 mg tablet 25 mg PO TID PRN PRN Dizziness 08/01/18 [History Last Taken Unknown] acyclovir 800 mg tablet 800 mg PO DAILY 09/11/19 [History Last Taken 11/22/22] difluprednate 0.05 % eye drops 1 drp ophthalmic (eye) Q OTHER DAY 05/13/20 [History Last Taken Unknown] timolol maleate 0.5 % eye drops 1 drp ophthalmic (eye) BID 02/14/22 [History Last Taken Unknown] vit A 300 mcg-C 200 mg-E 27 mg-lutein 2 mg and minerals tablet (Eye Health Plus Lutein) 1 tab PO BID 02/14/22 [History Last Taken Unknown] dapagliflozin propanediol 10 mg tablet (Farxiga) 10 mg PO DAILY #90 tabs 09/19/22 [Rx Last Taken 11/22/22] apixaban 5 mg tablet (Eliquis) 5 mg PO BID #180 tabs 02/09/23 [Rx Last Taken Unknown] atorvastatin 20 mg tablet 20 mg PO QHS #90 tabs 02/09/23 [Rx Last Taken Unknown] sacubitril 24 mg-valsartan 26 mg tablet (Entresto) 1 tab PO BID #180 tabs 02/09/23 [Rx Last Taken Unknown] metoprolol succinate 25 mg tablet,extended release 24 hr 25 mg PO BID This is a dose increase #180 tabs 02/19/23 [Rx Last Taken Unknown] furosemide 20 mg tablet 40 mg (2 x 20 mg) PO DAILY #90 tabs 03/06/23 [Rx Last Taken Unknown] potassium chloride 20 mEq tablet,extended release 20 meq PO DAILY #90 tabs 03/14/23 [Rx Last Taken Unknown] Allergy/AdvReac Type Severity Reaction Status Date / Time morphine Allergy Vomiting Verified 03/14/23 14:58 Family History Father Heart disease Surgical History History of coronary artery stent placement (12/19/18) History of left heart catheterization (06/21/20) Presence of permanent cardiac pacemaker (08/02/18) S/P CABG x 2 S/P mitral valve repair Social History Smoking Status: Former smoker how long ago did patient quit smokin alcohol intake: never substance use type: does not use caffeine: Yes Type: coffee Number of servings: 2 ROS ROS ED Constitutional Constitutional ED: Reports other Details: Fatigue ; Denies chills or fever(s) Eyes Eyes: Denies change in vision ENT ENT ED: Denies sore throat Cardiovascular Cardiovascular: Reports paroxysmal nocturnal dyspnea; Denies chest pain or palpitations Respiratory/Chest Respiratory/Chest: Reports cough, dyspnea, dyspnea on exertion and paroxysmal nocturnal dyspnea Gastrointestinal Gastrointestinal: Denies abdominal pain, nausea or vomiting Genitourinary Genitourinary ED: Reports dysuria, urinary frequency and other Details: atributes frequency to being on a diuretic ; Denies hematuria Musculoskeletal Musculoskeletal: Denies arthralgias or myalgias Integumentary Denies rash Neurologic Neurologic: Reports weakness; Denies headache(s) or paresthesias Psychiatric Psychiatric: Denies anxiety Hematologic/Lymphatic Hematologic/Lymphatic: Reports easy bleeding and easy bruising EXAM Physical Exam Const Vital Signs: 03/14/23 14:56 03/14/23 16:41 03/14/23 17:33 Temperature 97.4 F L Temperature Source Temporal Pulse Rate 88 Pulse Rate [Lying] 90 Pulse Rate [Sitting (for 1 minute prior to obtaining)] 86 Pulse Rate [Standing (for 1 minute prior to obtaining)] 93 Respiratory Rate 16 Respiratory Effort Short of Breath Respiratory Pattern Normal Blood Pressure 110/70 Blood Pressure [Lying] 88/71 L Blood Pressure [Sitting (for 1 minute prior to obtaining)] 106/70 Blood Pressure [Standing (for 1 minute prior to obtaining)] 111/63 Blood Pressure Mean 83 Blood Pressure Mean [Lying] 76 Blood Pressure Mean [Sitting (for 1 minute prior to obtaining)] 82 Blood Pressure Mean [Standing (for 1 minute prior to obtaining)] 79 Pulse Ox 98 Oxygen Delivery Method Room Air 03/14/23 16:56 03/14/23 18:00 Temperature Temperature Source Pulse Rate 88 81 Pulse Rate [Lying] Pulse Rate [Sitting (for 1 minute prior to obtaining)] Pulse Rate [Standing (for 1 minute prior to obtaining)] Respiratory Rate 16 16 Respiratory Effort Respiratory Pattern Blood Pressure 98/66 112/78 Blood Pressure [Lying] Blood Pressure [Sitting (for 1 minute prior to obtaining)] Blood Pressure [Standing (for 1 minute prior to obtaining)] Blood Pressure Mean 76 89 Blood Pressure Mean [Lying] Blood Pressure Mean [Sitting (for 1 minute prior to obtaining)] Blood Pressure Mean [Standing (for 1 minute prior to obtaining)] Pulse Ox 96 93 Oxygen Delivery Method Room Air Room Air Positive well nourished General Appearance ED: NAD HEENT Reports moist mucous membranes Eyes PERRL Neck supple Neck Narrative: minimal JVD Chest Wall inspection of chest normal and palpation of chest normal Resp normal respiratory effort Resp Narrative: Crackles present bilateral Cardio regular rate and regular rhythm; Negative for no murmurs GI normal to inspection, nondistended, normoactive bowel sounds and non-tender Extremity normal to inspection General Extremety ED: Negative for edema or tenderness General Extremity: Negative for edema Neuro oriented x3 Sensorium / Orientation: alert Motor Exam: Negative for general weakness Psych mental status grossly normal Skin no rashes or lesions noted MDM MDM MDM Narrative Medical decision making narrative: For what sounds like increased absent on exertion and proximal nocturnal dyspnea. Significant cardiac history with recent CABG. Has been titrating medications outpatient. Blood pressure is mildly soft in the ER but she is not hypotensive. She is asymptomatic at rest. Orthostatics are normal. She is not hypoxic and on ambulation trial stays at 95%. No signs of infection and does not have any bacteria in her urine. As she is having some mild symptoms will send off for culture out of abundance of caution. Is a troponin is normal at 28. Given that she generally having chest pain do not think she requires further cardiac work-up. Her creatinine is mildly improved today at 1.46 but still mildly elevated. It is not significantly worsening more importantly. Her BNP is mildly uptrending. I did offer admission for IV diuresis and monitoring given her borderline soft blood pressures with mild bump in her creatinine. Medical decision made and patient elects for outpatient treatment at this time. She states that she would like to try her cardiology plan of 80 mg oral Lasix twice a day. She also states that she has an SR. PAYROLL PROCESSOR scheduled to come out to her house to check her vital signs and keep an eye on her. Counseled on close return precautions and that if her symptoms worsen she might need to come into the hospital. She does verbalize agreement understanding of this. Daughter is at the bedside is also agreeable. Lab Data Attestation: I reviewed the patient's lab results. Labs: Laboratory Results - last 24 hr 03/14/23 03/14/23 16:40 17:24 WBC 8.6 RBC 3.74 L Hgb 11.2 L Hct 35.2 L MCV 94.1 MCH 29.9 MCHC 31.8 L RDW Std Deviation 53.0 H RDW Coeff of Sakina 15.4 H Plt Count 183 MPV 11.2 Immature Gran % (Auto) 0.500 Neut % (Auto) 71.5 H Lymph % (Auto) 18.9 L [place] % (Auto) 6.9 Eos % (Auto) 1.7 Baso % (Auto) 0.5 Absolute Neuts (auto) 6.2 Absolute Lymphs (auto) 1.63 Nucleated RBC % 0 Sodium 143 Potassium 3.5 Chloride 106 Carbon Dioxide 27.0 Anion Gap 10 BUN 24 H Creatinine 1.46 H Est GFR (MDRD) Af Amer 44 L Est GFR (MDRD) Non-Af 36 L BUN/Creatinine Ratio 16.4 Glucose 104 Calcium 7.4 L Troponin I High Sens 28 B-Natriuretic Peptide 1419.1 H Urine Color Yellow Urine Clarity Clear Urine pH 6.0 Ur Specific [place] 1.010 Urine Protein 15 H Urine Glucose (UA) 250 H Urine Ketones Negative Urine Occult Blood 10 H Urine Nitrite Negative Urine Bilirubin Negative Urine Urobilinogen Normal Ur Leukocyte Esterase 100 H Urine RBC 0 SEEN Urine WBC 0-5 SEEN Ur Squamous Epith Cells 0-5 SEEN Urine Bacteria 0 SEEN Urine Mucus 0 SEEN Radiography Chest X-Ray - ED: 2 View, Read by ED Physician, Read by Radiologist, Cardiomegaly and CHF Diagnostic Testing: Clinical Impression(s) from Imaging Studies Chest X-Ray 03/14/23 16:45 IMPRESSION: Mild CHF improved. Status post sternotomy and atrial appendage clip. Electronically Signed: Yair Benítez MD at 17:20 EST , Discharge Plan Triage Chief Complaint: General Illness ED Provider: Sherry Matta Dx/Rx/DC Orders Clinical Impression: CHF exacerbation, WIN (dyspnea on exertion) Instructions: ED Heart Failure, Congestive (CHF), ED Dyspnea Prescriptions: No Action acyclovir 800 mg tablet 800 mg PO DAILY difluprednate 0.05 % drops 1 drp OPHTHALMIC Q OTHER DAY Patient Comments: INSTILL 1 DROP INTO LEFT EYE THREE TIMES A WEEK timolol maleate 0.5 % drops 1 drp ophthalmic (eye) BID Rx Instructions: left eye Eye Health Plus Lutein 300 mcg-200 mg-27 mg-2 mg tablet 1 tab PO BID Farxiga 10 mg tablet 10 mg PO DAILY Qty: 90 3RF Eliquis 5 mg tablet 5 mg PO BID Qty: 180 3RF atorvastatin 20 mg tablet 20 mg PO QHS Qty: 90 3RF Entresto 24-26 mg tablet 1 tab PO BID Qty: 180 3RF Hold Instructions: hypotension omeprazole 40 MG capsule,delayed release(DR/EC) 40 mg PO DAILY Patient Comments: erythromycin 1 APPLIC ointment 1 applic LEFT EYE QHS Patient Comments: left eye aspirin 81 MG tablet,chewable 81 mg PO DAILY@0800 meclizine 25 MG tablet 25 mg PO TID PRN PRN (Reason: Dizziness) metoprolol succinate 25 mg tablet extended release 24 hr 25 mg PO BID Qty: 180 3RF furosemide 20 mg tablet 40 mg PO DAILY Qty: 90 3RF potassium chloride 20 mEq tablet extended release 20 meq PO DAILY Qty: 90 3RF Primary Care Provider: Luiz Avery Referrals: Luiz Avery MD [Primary Care Provider] - Activity Restrictions/Additional Instructions: Your urine is not consistent with UTI however we will send it for culture just to be thorough. Your creatinine is mildly improved today. Please follow-up as previously scheduled on Sunday with your care doctor. Please take the 3 days of increased Lasix as discussed with your cardiology office. If your symptoms worsen, you feel you are going to pass out, have difficulty breathing or any other concerns please return to the emergency room. Disposition Disposition: Home, Self Care
[2023-03-14 17:28] VITALS: O2SAT 95
[2023-03-14 17:29] LABS: Bacteria 0 SEEN /hpf (None Seen); Mucous, Urine 0 SEEN /hpf (<or=2+); Red Blood Cells-Urine 0 SEEN /hpf (0-5)
[2023-03-14 17:33] VITALS: BP 106/70; BP 111/63; BP 88/71; PULSE 86; PULSE 90; PULSE 93
[2023-03-14 17:38] LABS: Color, Urine Yellow (Yellow); Glucose, Dipstick 250 mg/dl (Normal); Ketone-Dipstick Negative (Negative); Leukocyte Esterase-Dipstick 100 /ul (Negative); Nitrite-Dipstick Negative (Negative); Occult Blood-Urine 10 /ul (Negative); Protein-Dipstick 15 mg/dl (Negative); Urine Bilirubin Dipstick Negative (Negative); Urine Clarity Clear (Clear); Urine Urobilinogen Normal (Normal)
[2023-03-14 18:00] VITALS: BP 112/78; PULSE 81; RESP 16; O2SAT 93
[2023-03-14 18:08] LABS: Squamous Epithelial Cells - UA 0-5 SEEN /hpf (5-10); White Blood Cells 0-5 SEEN /hpf (0-5)
[2023-03-14 19:00] VITALS: BP 108/71; PULSE 21; RESP 16; O2SAT 95
== END 2023-03-14 19:36 | disposition home or self-care (01) ==
PROVIDERS: Emergency Provider Emergency Medicine; PCP Family Medicine; Visit Provider Emergency Medicine
DX: I50.32 Chronic diastolic (congestive) heart failure (principal); I11.0 Hypertensive heart disease with heart failure; Z87.891 Personal history of nicotine dependence; I25.10 Atherosclerotic heart disease of native coronary artery without angina pectoris; Z95.0 Presence of cardiac pacemaker; I44.1 Atrioventricular block, second degree; Z95.1 Presence of aortocoronary bypass graft; R30.0 Dysuria; R35.0 Frequency of micturition; Z79.899 Other long term (current) drug therapy
CPT/HCPCS: 99285; 71046; 80048; 81001; 83880; 84484; 85025; 87086; A4216

== ENCOUNTER 2023-03-16 12:43 | Inpatient (IN) | payer MEDICARE, SELFPAY ==
[2023-03-16] VITALS (10 sets, daily range): BP systolic 109–120; BP diastolic 62–109; PULSE 85–98; RESP 16–20; TEMP 36.3–36.6; O2SAT 93–99; BMI 27.1; BMI 27.3
--- NOTE | 2023-03-16 14:09 | EKG12_ITS ---
Test Reason : SOB Blood Pressure : / mmHG Vent. Rate : 085 BPM Atrial Rate : 085 BPM P-R Int : 000 ms QRS Dur : 194 ms QT Int : 510 ms P-R-T Axes : -01 -45 116 degrees QTc Int : 606 ms Ventricular-paced rhythm Abnormal ECG Confirmed by NICA CHAPA, MARCIAL ([id number]), news video editor MICHA IPERCE ([id number]) on 03/21/2023 12:25:44 PM Referred By: LOC Confirmed By:MARCIAL YOUSIF MD
[2023-03-16 14:23] LABS: Absolute Lymphocyte Count 1.59 X10^3/uL (0.83-4.51); Absolute Neutrophil Count 6.6 X10^3/uL (2.0-7.7); Basophil# 0.03 X10^3/uL; Basophil% 0.3 % (0-1); Eosinophil# 0.11 X10^3/uL; Eosinophils% 1.2 % (0-5); Hematocrit 34.6 % (37-47); Hemoglobin 11.6 g/dL (12.0-15.0); Lymphocyte # 1.59 X10^3/ul (0.83-4.51); Lymphocyte % 17.7 % (19-41); Mean Corp Hgb Conc 33.5 g/dL (32-36); Mean Corpuscular Hgb 31.1 pg (27.0-32.0); Mean Corpuscular Volume 92.8 fL (81-99); Mean Platelet Vol. 11.8 fl (6.2-12.0); Monocyte# 0.59 X10^3/uL; Monocyte% 6.6 % (0-10); NRBC Flagged by Analyzer 0 % (0-5); Neutrophil # 6.64 X10^3/uL (2.7-7.7); Neutrophil % 73.8 % (47-70); Platelet Count 182 K/mm3 (150-450); RBC Distribution Width CV 15.3 % (11.6-14.6); Red Blood Count 3.73 M/mm3 (4.2-5.4)
[2023-03-16 14:34] LABS: Anion Gap 11 (5-15); BUN 24 mg/dL (7-18); BUN/Creat Ratio 16.2 RATIO (10-20); Calcium,Total 8.1 mg/dL (8.5-10.1); Chloride 103 mmol/L (98-107); Creatinine, Serum 1.48 mg/dL (0.55-1.02); EST Glomerular Filtration Rate 36 mL/min (>60); Est Glom Filt Rate - Afr Amer 43 mL/min (>60); Estimated Creatinine Clearance 23.41 ml/min; Glucose 109 mg/dL (74-106); Potassium 2.8 mmol/L (3.5-5.1); Sodium Level 140 mmol/L (136-145)
[2023-03-16 14:43] LABS: BNP,B-Type NATRIURETIC PEPTIDE 1513.1 pg/mL (0-100)
--- NOTE | 2023-03-16 16:10 | RAD_ITS ---
EXAM: XR CHEST, 2 VIEWS CLINICAL INDICATION: sob TECHNIQUE: Frontal and lateral views of the chest. COMPARISON: XR Chest dated 03/14/2023 FINDINGS: LUNGS AND PLEURAL SPACES: Stable interstitial thickening of both lungs consistent with chronic interstitial lung disease. HEART: Stable mild cardiomegaly. Surgical changes of coronary artery bypass graft (CABG). MEDIASTINUM: No mediastinal or hilar mass. BONES/JOINTS: No acute abnormality. TUBES, LINES AND DEVICES: Atrial and ventricular pacemaker wires remain in place as well as left atrial appendage clip. RAD/Chest PA and Lateral IMPRESSION: No interval change. Electronically Signed: Carson Edmonds MD at 16:33 EST ,
--- NOTE | 2023-03-16 17:28 | ED.VIS.DYS ---
HPI History of Present Illness Chief Complaint: Shortness of Breath Informant: patient Narrative Narrative: Patient is an 83-year-old female with history of pacemaker with Mobitz type II block, coronary artery disease status post CABG performed at [facility] 2 months ago, ischemic cardiomyopathy, atrial fibrillation (on Eliquis) presenting with worsening shortness of breath and fatigue. Patient was seen and evaluated by myself in the ER 2 days ago for similar symptoms of worsening dyspnea on exertion and now orthopnea/paroxysmal nocturnal dyspnea. I had offered admission 2 days ago but patient wanted to try doubling up her Lasix (80 mg total daily) for the past 2 days but nots she was more symptomatic last night and woke up short of breath and even after moving to a recliner was still short of breath. She saw her PCP today and when asked if she felt safe going home she immediately said no but states that actually she does feel safe going home but was very worried about having another night like last night with her breathing. No other complaints at this time. [facility] Medical History Acute kidney injury Anxiety Atherosclerosis of coronary artery of [place] heart without angina pectoris Chronic diastolic (congestive) heart failure Essential (primary) hypertension Fractured sternum History of ST elevation myocardial infarction (STEMI) (11/16/18) History of vertigo Ischemic cardiomyopathy Mobitz (type) II atrioventricular block 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) Home Medications aspirin 81 mg chewable tablet 81 mg PO DAILY@0800 circulation 12/08/16 [History Last Taken 11/22/22] erythromycin 5 mg/gram (0.5 %) eye ointment 1 applic LEFT EYE [facility] eye health 12/08/16 [History Last Taken 07/31/18] omeprazole 40 mg capsule,delayed release 40 mg PO DAILY acid reflux 12/08/16 [History Last Taken 11/22/22] meclizine 25 mg tablet 25 mg PO TID PRN PRN Dizziness 08/01/18 [History Last Taken Unknown] acyclovir 800 mg tablet 800 mg PO DAILY 09/11/19 [History Last Taken 11/22/22] difluprednate 0.05 % eye drops 1 drp ophthalmic (eye) Q OTHER DAY 05/13/20 [History Last Taken Unknown] timolol maleate 0.5 % eye drops 1 drp ophthalmic (eye) BID 02/14/22 [History Last Taken Unknown] vit A 300 mcg-C 200 mg-E 27 mg-lutein 2 mg and minerals tablet (Eye Health Plus Lutein) 1 tab PO BID 02/14/22 [History Last Taken Unknown] dapagliflozin propanediol 10 mg tablet (Farxiga) 10 mg PO DAILY #90 tabs 09/19/22 [Rx Last Taken 11/22/22] apixaban 5 mg tablet (Eliquis) 5 mg PO BID #180 tabs 02/09/23 [Rx Last Taken Unknown] atorvastatin 20 mg tablet 20 mg PO QHS #90 tabs 02/09/23 [Rx Last Taken Unknown] sacubitril 24 mg-valsartan 26 mg tablet (Entresto) 1 tab PO BID #180 tabs 02/09/23 [Rx Last Taken Unknown] metoprolol succinate 25 mg tablet,extended release 24 hr 25 mg PO BID This is a dose increase #180 tabs 02/19/23 [Rx Last Taken Unknown] furosemide 20 mg tablet 40 mg (2 x 20 mg) PO DAILY #90 tabs 03/06/23 [Rx Last Taken Unknown] potassium chloride 20 mEq tablet,extended release 20 meq PO DAILY #90 tabs 03/14/23 [Rx Last Taken Unknown] cholecalciferol (vitamin D3) 50 mcg (2,000 unit) tablet (Vitamin D3) 2,000 unit PO DAILY 03/16/23 [History Last Taken Unknown] Allergy/AdvReac Type Severity Reaction Status Date / Time morphine Allergy Vomiting Verified 03/16/23 12:43 Family History Father Heart disease Surgical History History of coronary artery stent placement (12/19/18) History of left heart catheterization (06/21/20) Presence of permanent cardiac pacemaker (08/02/18) S/P CABG x 2 S/P mitral valve repair Social History Smoking Status: Former smoker how long ago did patient quit smokin alcohol intake: never substance use type: does not use caffeine: Yes Type: coffee Number of servings: 2 ROS ROS ED Constitutional Constitutional ED: Denies chills or fever(s) Cardiovascular Cardiovascular: Reports orthopnea and paroxysmal nocturnal dyspnea; Denies chest pain or palpitations Respiratory/Chest Respiratory/Chest: Reports cough, dyspnea on exertion, orthopnea and paroxysmal nocturnal dyspnea Gastrointestinal Gastrointestinal: Denies abdominal pain, nausea or vomiting Musculoskeletal Musculoskeletal: Denies arthralgias or myalgias Integumentary Denies rash Neurologic Neurologic: Denies headache(s) Hematologic/Lymphatic Hematologic/Lymphatic: Reports easy bleeding and easy bruising EXAM Physical Exam Const Vital Signs: 03/16/23 12:43 03/16/23 13:18 03/16/23 16:40 Temperature 97.8 F Temperature Source Temporal Pulse Rate 98 90 Respiratory Rate 20 H 18 Respiratory Effort Normal Respiratory Depth Normal Respiratory Pattern Normal Blood Pressure 109/69 110/70 Blood Pressure Mean 82 83 Pulse Ox 99 95 Oxygen Delivery Method Room Air Room Air Room Air Positive well nourished and well developed General Appearance ED: well developed and NAD; Negative for pallor HEENT Reports moist mucous membranes Eyes PERRL and EOMs intact bilaterally Neck supple and no JVD Resp Resp Narrative: Diminished breath sounds and crackles most pronounced at the right base Cardio regular rate Rhythm: abnormal rhythm GI non-tender and non-distended Extremity Extremity Narrative: 1+ pretibial edema General Extremety ED: Negative for tenderness Neuro oriented x3 Sensorium / Orientation: alert Motor Exam: Negative for general weakness Psych mental status grossly normal Skin no wounds General Skin Exam: Negative for jaundice or pallor MDM MDM MDM Narrative Medical decision making narrative: Patient is evaluated for worsening shortness of breath despite being on a double dose of Lasix for 2 days now. She appears nontoxic in no acute distress. Vital signs are normal. Blood pressure is a little on the low side but this appears to be baseline for patient. Differential includes CHF exacerbation, exacerbation of pulmonary fibrosis, ACS, TRINI, pneumonia and failure of outpatient treatment While patient not requiring supplemental oxygen her BNP is up trending. It is from 14 100-15 100 despite increasing her Lasix. This is concerning for failure of outpatient treatment given that she is increased her Lasix is having worsening symptoms. Her creatinine is not significantly changed from 2 days ago at 1.48 (mildly improved). CBC otherwise unremarkable. She does not have a fever leukocytosis and low suspicion for pneumonia or acute infiltrate. I do not think she requires antibiotics. Hemoglobin stable from her baseline is at 11.6. She is not having any chest pain and I do not think she requires a troponin. She does have hypokalemia with a potassium of 2.8. We will add on magnesium and give oral potassium replacement in the ER. EKG does show ventricular paced rhythm. Discussed with patient that I am worried that she is worsening despite optimizing outpatient treatment and would benefit from admission for IV Lasix and cardiac consult. She is agreeable. Is given 60 mg IV Lasix in the ER and case discussed with hospitalist, Dr. Garcia. History & Record Review Additional record(s) reviewed:: Prior ED visit and Prior labs Lab Data Attestation: I reviewed the patient's lab results. Labs: Laboratory Results - last 24 hr 03/16/23 13:15 WBC 9.0 RBC 3.73 L Hgb 11.6 L Hct 34.6 L MCV 92.8 MCH 31.1 MCHC 33.5 D RDW Std Deviation 52.0 H RDW Coeff of Sakina 15.3 H Plt Count 182 MPV 11.8 Immature Gran % (Auto) 0.400 Neut % (Auto) 73.8 H Lymph % (Auto) 17.7 L [place] % (Auto) 6.6 Eos % (Auto) 1.2 Baso % (Auto) 0.3 Absolute Neuts (auto) 6.6 Absolute Lymphs (auto) 1.59 Nucleated RBC % 0 Sodium 140 Potassium 2.8 L Chloride 103 Carbon Dioxide 26.0 Anion Gap 11 BUN 24 H Creatinine 1.48 H Estim Creat Clear Calc 23.41 Est GFR (MDRD) Af Amer 43 L Est GFR (MDRD) Non-Af 36 L BUN/Creatinine Ratio 16.2 Glucose 109 H Calcium 8.1 L B-Natriuretic Peptide 1513.1 H Radiography Chest X-Ray - ED: 2 View, Read by ED Physician, Read by Radiologist and Chronic Changes Diagnostic Testing: Clinical Impression(s) from Imaging Studies Chest X-Ray 03/16/23 16:10 IMPRESSION: No interval change. Electronically Signed: Carson Edmonds MD at 16:33 EST , Rhythm Strip Rhythm Strip: Paced Rate: 85 Ectopy: None EKG Initial EKG: Attestation: I personally reviewed and interpreted this EKG as follows: Interpretation: Paced Comments: Ventricular paced rhythm at a rate of 85 beats per minutes No significant change compared to prior EKGs Differential Diagnosis Chest pain/SOB: pulmonary embolism Reason(s) PE less likely: Positive for patient taking oral anticoagulants and pneumonia Reason(s) pneumonia less likely: Positive for no infiltrate on CXR, no elevation in WBC count, no noted fever and symptoms not consistent with acute infection Management Discussion w/another healthcare provider: Hospitalist Discharge Plan Triage Chief Complaint: Shortness of Breath ED Provider: Sherry Matta Dx/Rx/DC Orders Clinical Impression: WIN (dyspnea on exertion), Anticoagulant long-term use, CHF exacerbation, Failure of outpatient treatment Prescriptions: No Action acyclovir 800 mg tablet 800 mg PO DAILY difluprednate 0.05 % drops 1 drp OPHTHALMIC Q OTHER DAY Patient Comments: INSTILL 1 DROP INTO LEFT EYE THREE TIMES A WEEK timolol maleate 0.5 % drops 1 drp ophthalmic (eye) BID Rx Instructions: left eye [facility] Plus Lutein 300 mcg-200 mg-27 mg-2 mg tablet 1 tab PO BID Farxiga 10 mg tablet 10 mg PO DAILY Qty: 90 3RF Eliquis 5 mg tablet 5 mg PO BID Qty: 180 3RF atorvastatin 20 mg tablet 20 mg PO QHS Qty: 90 3RF Entresto 24-26 mg tablet 1 tab PO BID Qty: 180 3RF Hold Instructions: hypotension omeprazole 40 MG capsule,delayed release(DR/EC) 40 mg PO DAILY Patient Comments: erythromycin 1 APPLIC ointment 1 applic LEFT EYE QHS Patient Comments: left eye aspirin 81 MG tablet,chewable 81 mg PO DAILY@0800 meclizine 25 MG tablet 25 mg PO TID PRN PRN (Reason: Dizziness) cholecalciferol (vitamin D3) [Vitamin D3] 50 mcg (2,000 unit) tablet 2,000 unit PO DAILY metoprolol succinate 25 mg tablet extended release 24 hr 25 mg PO BID Qty: 180 3RF furosemide 20 mg tablet 40 mg PO DAILY Qty: 90 3RF potassium chloride 20 mEq tablet extended release 20 meq PO DAILY Qty: 90 3RF Primary Care Provider: Luiz Avery Referrals: Luiz Avery MD [Primary Care Provider] - Disposition Disposition: Acute Care [facility]
--- NOTE | 2023-03-16 17:34 | PCM.HP.STD ---
HPI - General General Date of Admission: 03/16/23 Date of Service: 03/16/23 Chief Complaint: Increased BL LE swellling, orthopnea, dyspnea worse with exertion. HPI Narrative The patient is an 83 y/o F w/ PMHx: HTN, HLD, PAF, Chronic HFrEF/Ischemic cardiomyopathy (EF 11/2022 30%), Hx mobitz type II block s/p pacemaker placement, Valvular heart disease s/p MV repair, CAD s/p PCI and recent CABG x 2 11/2022, Chronic normocytic anemia, CKD stage III unclear subtype per GFR trending, Pulmonary Fibrosis who presents to the [facility] ED on 03/16/23 with history of ongoing persistent dyspnea worse over the last week with ED presentation 2 days prior to current presentation with increase of her Lasix, doubling however she still remains significantly dyspneic worse with exertion with orthopnea and mild increase swelling to her legs although no pitting edema prompting referral to the ED for evaluation. Patient denies any associated chest discomfort with her current presentation. In the ED included T97.8, heart rate 98, BP 109/69, respiratory rate 20, 99% on room air, CBC with WC 9.0, hemoglobin 11.6, MCV 92.8, platelet 192 without marked shift, BMP with potassium 2.8, BUN/creatinine 24/1.48, glucose 109, BNP one 513.1, chest x-ray with chronic fibrotic changes with no interval change from previous x-ray, EKG paced. In the ED patient administered Lasix 60 mg IV x1 as well as potassium chloride 40 mill equivalent p.o. x1. [facility] Medical History (Updated 03/16/23 @ 20:[address] Willa Garcia MD) Acute kidney injury Anxiety Atherosclerosis of coronary artery of [place] heart without angina pectoris Chronic anemia Essential (primary) hypertension Fractured sternum HFrEF (heart failure with reduced ejection fraction) History of ST elevation myocardial infarction (STEMI) (11/16/18) History of vertigo Ischemic cardiomyopathy Mobitz (type) II atrioventricular block 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) Home Medications aspirin 81 mg chewable tablet 81 mg PO DAILY@0800 circulation 12/08/16 [History Last Taken 11/22/22] erythromycin 5 mg/gram (0.5 %) eye ointment 1 applic LEFT EYE [facility] eye health 12/08/16 [History Last Taken 07/31/18] omeprazole 40 mg capsule,delayed release 40 mg PO DAILY acid reflux 12/08/16 [History Last Taken 11/22/22] meclizine 25 mg tablet 25 mg PO TID PRN PRN Dizziness 08/01/18 [History Last Taken Unknown] acyclovir 800 mg tablet 800 mg PO DAILY 09/11/19 [History Last Taken 11/22/22] difluprednate 0.05 % eye drops 1 drp ophthalmic (eye) Q OTHER DAY 05/13/20 [History Last Taken Unknown] timolol maleate 0.5 % eye drops 1 drp ophthalmic (eye) BID 02/14/22 [History Last Taken Unknown] vit A 300 mcg-C 200 mg-E 27 mg-lutein 2 mg and minerals tablet (Eye Health Plus Lutein) 1 tab PO BID 02/14/22 [History Last Taken Unknown] dapagliflozin propanediol 10 mg tablet (Farxiga) 10 mg PO DAILY #90 tabs 09/19/22 [Rx Last Taken 11/22/22] apixaban 5 mg tablet (Eliquis) 5 mg PO BID #180 tabs 02/09/23 [Rx Last Taken Unknown] atorvastatin 20 mg tablet 20 mg PO QHS #90 tabs 02/09/23 [Rx Last Taken Unknown] sacubitril 24 mg-valsartan 26 mg tablet (Entresto) 1 tab PO BID #180 tabs 02/09/23 [Rx Last Taken Unknown] metoprolol succinate 25 mg tablet,extended release 24 hr 25 mg PO BID This is a dose increase #180 tabs 02/19/23 [Rx Last Taken Unknown] furosemide 20 mg tablet 40 mg (2 x 20 mg) PO DAILY #90 tabs 03/06/23 [Rx Last Taken Unknown] potassium chloride 20 mEq tablet,extended release 20 meq PO DAILY #90 tabs 03/14/23 [Rx Last Taken Unknown] cholecalciferol (vitamin D3) 50 mcg (2,000 unit) tablet (Vitamin D3) 2,000 unit PO DAILY 03/16/23 [History Last Taken Unknown] Allergy/AdvReac Type Severity Reaction Status Date / Time morphine Allergy Vomiting Verified 03/16/23 12:43 Family History (Updated 03/16/23 @ 20:[address] Willa Garcia MD) Father Heart disease Mother Heart disease Chronic anemia Iron deficiency Surgical History History of coronary artery stent placement (12/19/18) History of left heart catheterization (06/21/20) Presence of permanent cardiac pacemaker (08/02/18) S/P CABG x 2 S/P mitral valve repair Social History (Updated 03/16/23 @ 20:[address] Willa Garcia MD) household members: none Smoking Status: Former smoker how long ago did patient quit smoking: Quit in 1967. alcohol intake: never substance use type: does not use caffeine: Yes Type: coffee Number of servings: 2 ROS ROS Narrative Admission Review of Systems: CONSTITUTIONAL: No weight loss, fever, chills, + weakness or fatigue. HEENT: Eyes: No visual loss, blurred vision, double vision or yellow sclerae. Ears, Nose, Throat: No hearing loss, sneezing, congestion, runny nose or sore throat. SKIN: No rash or itching, lesions, wounds. CARDIOVASCULAR: + Mild edema, peripherally, orthopnea. No chest pain, chest pressure or chest discomfort, palpitations, syncopal events. RESPIRATORY: + Shortness of breath. No cough or sputum, wheezing, hemoptysis. GASTROINTESTINAL: No anorexia, nausea, vomiting or diarrhea, abdominal pain, melena, BRBPR. GENITOURINARY: No dysuria, frequency, urgency or retention. NEUROLOGICAL: No headache, dizziness, syncope, paralysis, ataxia, numbness or tingling in the extremities, focal weakness, change in bowel or bladder control, seizure. MUSCULOSKELETAL: + muscle, back pain, joint pain or stiffness. HEMATOLOGIC: + anemia, easy bleeding/bruising. LYMPHATICS: No enlarged nodes. No history of splenectomy. PSYCHIATRIC: No history of depression or anxiety. ENDOCRINOLOGIC: No reports of sweating, cold or heat intolerance. No polyuria or polydipsia. ALLERGIES: No history of asthma, hives, eczema or rhinitis. Vital Signs Vital Signs Vital Signs: 03/16/23 12:43 03/16/23 13:18 03/16/23 16:40 Temperature 97.8 F Temperature Source Temporal Pulse Rate 98 90 Respiratory Rate 20 H 18 Respiratory Effort Normal Respiratory Depth Normal Respiratory Pattern Normal Blood Pressure 109/69 110/70 Blood Pressure Mean 82 83 Pulse Ox 99 95 Oxygen Delivery Method Room Air Room Air Room Air Weight Weight: 153 lb 6.4 oz Body Mass Index (BMI) 27.1 Physical Exam Narrative Physical Examination: General: Awake, alert, oriented x 3 and cooperative, seated upright in the ED bed, fatigued appearing. Skin: Normal color, normal turgor, no icterus, no cyanosis except occasional staged ecchymoses. HEENT: AT/NC, EOMI, PERRLA, MMM, no carotid bruits, no severe markedly elevated JVD noted. Lungs: Initial, bases, appropriate effort, mild crackles, very minor rales at the bases, no rhonchi or wheezing. This is not Heart: Regular rate/rhythm/paced; no gallop, rub audible, + SM. Abdomen: Soft, overweight, NTTP, ND, normal BS, no HSM. Extremities: No cyanosis, no clubbing, mild not markedly pitting pedal to distal bruce edema. Neurological: Patient awake, alert, oriented as noted, cognitive function intact; pupils equally reactive to light and accommodation, cranial nerves II-XII grossly normal, moving all 4 extremities, no focal deficits, strength moderately globally decreased secondary to acute presentation and underlying comorbidities. Psychiatric: Affect appears fatigued otherwise normal, no acute evidence of depressive or anxiety feelings. Results Lab / Micro Data 03/16/23 13:15 03/16/23 13:15 Labs: Laboratory Results - last 24 hr 03/16/23 13:15: WBC 9.0, RBC 3.73 L, Hgb 11.6 L, Hct 34.6 L, MCV 92.8, MCH 31.1, MCHC 33.5 D, RDW Std Deviation 52.0 H, RDW Coeff of Sakina 15.3 H, Plt Count 182, MPV 11.8, Immature Gran % (Auto) 0.400, Neut % (Auto) 73.8 H, Lymph % (Auto) 17.7 L, [place] % (Auto) 6.6, Eos % (Auto) 1.2, Baso % (Auto) 0.3, Absolute Neuts (auto) 6.6, Absolute Lymphs (auto) 1.59, Nucleated RBC % 0, Sodium 140, Potassium 2.8 L, Chloride 103, Carbon Dioxide 26.0, Anion Gap 11, BUN 24 H, Creatinine 1.48 H, Estim Creat Clear Calc 23.41, Est GFR (MDRD) Af Amer 43 L, Est GFR (MDRD) Non-Af 36 L, BUN/Creatinine Ratio 16.2, Glucose 109 H, Calcium 8.1 L, B-Natriuretic Peptide 1513.1 H Imaga[facility] Radiology Impression Chest X-Ray 03/16/23 16:10 IMPRESSION: No interval change. Electronically Signed: Carson Edmonds MD at 16:33 EST , Assessment & Plan Assessment/Plan (1) CHF exacerbation: (2) Failure of outpatient treatment: PLAN: Plan The patient is an 83 y/o F w/ PMHx: HTN, HLD, PAF, Chronic HFrEF/Ischemic cardiomyopathy (EF 11/2022 30%), Hx mobitz type II block s/p pacemaker placement, Valvular heart disease s/p MV repair, CAD s/p PCI and recent CABG x 2 11/2022, Chronic normocytic anemia, CKD stage III unclear subtype per GFR trending, Pulmonary Fibrosis who presents to the [facility] ED on 03/16/23 with history of ongoing persistent dyspnea worse over the last week with ED presentation 2 days prior to current presentation with increase of her Lasix, doubling however she still remains significantly dyspneic worse with exertion with orthopnea and mild increase swelling to her legs although no pitting edema prompting referral to the ED for evaluation. #1. Acute Decompensated HFrEF Exacerbation/ischemic Cardiomyopathy: Patient administered IV lasix in the ED, will admit to PCU, maintain on cardiac telemetry, obtain cardiac enzyme series, obtain serial EKGs, continue IV lasix diuresis as BP allows given low normal range, monitor I/Os, maintain on intake restriction, continue medical therapy, obtain TSH and magnesium level. Most recent ECHO noted 11/2022 from [facility] with CABG with EF noted 30%, will repeat. Cardiology consulted, pending. Place BL LE ghada wraps although edema not severe. #2. Hypokalemia: Admission K+ 2.8, magnesium level requested, supplementation given, repeat level in AM. #3. CAD: s/p PCI NEGRO to the RCA 11/2018 and CABG times with PEDRAZA to LAD and SVG to OM1, will continue asa, eliquis, entresto, metoprolol home regimen. #4. Hypertension: Continue home regimen including Entresto, metoprolol, IV Lasix, PRN hydralazine. Given low normal BP will prioritize IV diuretics at this time. #5. Hyperlipidemia: Continue home statin regimen. AM FLP. #6. PAF: We will continue patient home metoprolol and Eliquis regimen. #7. Valvular Heart Disease: s/p mitral valve repair 12/14/2022 with 28 ring with left atrial appendage ligation and atrial clip, most recent ECHO from 11/2022 with left third percent with moderate mitral regurgitation, repeat echo requested as noted. #8. Chronic Kidney Disease Stage III unclear subtype per GFR trending: Admission BUN/Cr 24/1.48, baseline renal function primarily 1.2-1.5, repeat BMP in AM. #9. Chronic normocytic anemia: Admission hemoglobin 11.6, MCV 92.8, baseline hemoglobin appears more recently 11-12 range, stable, continue to trend. #10. History of Mobitz type II AV block: Status post pacemaker placement, most recent pacer check noted 03/06/2023 stable. #11. GERD: We will continue home #12. DVT Prophylaxis: We will continue patient home Eliquis regimen. #13. CODE status: Patient ELSIE is her daughter's (2) and living will is currently in place. Discussed CODE status at length including difference between FULL code, DNR-CCA and DNR-CC status. Following discussions about the differences in these status, requested Full Code status. Advanced Care Planning Face to Face Time: 16 minutes. Charges/Coding Visit Charges Inpatient E&M: 43789 Init Hosp L3 Procedures Hospitalists Procedures: 63574 Advncd Care Plan 30 Min
[2023-03-16] MEDS: Furosemide 100 MG/10 ML Vial 60 MG IV (17:39)
[2023-03-16 17:49] LABS: Magnesium 2.1 mg/dL (1.6-2.6)
[2023-03-16] MEDS: Potassium Chloride Oral Soln 20 MEQ/15 ML UDC 40 MEQ PO (17:52)
--- NOTE | 2023-03-16 21:50 | ECHOCS_ITS ---
Reason For Study: CHF Procedure This was a 2D Doppler, Color Flow transthoracic echocardiogram. Contrast injection was performed. Exam performed portable in patient room. Left Ventricle Severely dilated left ventricle. The estimated ejection fraction is 10-15 %. Right Ventricle Mildly dilated right ventricle. Mild to moderate global right ventricular systolic dysfunction. Atria The left atrium is mildly enlarged. The right atrium is mildly enlarged. Mitral Valve The mitral valve is structurally normal. No prolapse or stenosis seen. Mild-Moderate (1-2+) mitral valve insufficiency. Tricuspid Valve Normal tricuspid valve. Mild tricuspid valve insufficiency. Aortic Valve Mild diffuse aortic valve calcification. Pulmonic Valve The pulmonic valve is not well visualized. Great Vessels Normal aortic root. Pericardium/Pleural No pericardial effusion. Medication Diluted definity 2ml given slow IV push to enhance endocardial definition. MMode/2D Measurements & Calculations LVIDd: 5.1 cm IVSd: 1.3 cm Ao root diam: 3.4 cm LVIDs: 4.6 cm LVPWd: 1.3 cm LA dimension: 4.8 cm RVDd: 5.1 cm FS: 8.9 % LAV(MOD-bp): 87.1 ml LVAd ap4: 39.0 cm2 SV(MOD-sp4): 8.8 ml LAV(MOD-bp) Indexed: 50.4 ml/m2 LVLd ap4: 7.9 cm LAV(MOD-sp2): 80.6 ml EDV(MOD-sp4): 154.2 ml LAV(MOD-sp4): 91.5 ml EDV(sp4-el): 162.8 ml LVAs ap4: 37.7 cm2 LVLs ap4: 8.0 cm ESV(MOD-sp4): 145.4 ml ESV(sp4-el): 150.0 ml EF(MOD-sp4): 5.7 % EF(sp4-el): 7.8 % SV(sp4-el): 12.7 ml LA A4 area: 27.0 cm2 RA A4 area: 27.1 cm2 TAPSE: 1.7 cm Time Measurements MV dec time: 0.17 sec Doppler Measurements & Calculations MV E max terry: 112.7 cm/sec Lat Peak E' Terry: 7.5 cm/sec Med Peak E' Terry: 3.3 cm/sec MV A max terry: 114.5 cm/sec E/E' lat: 15.1 E/E' med: 34.0 MV E/A: 0.98 MV V2 max: 147.4 cm/sec MV P1/2t max terry: 114.3 cm/sec Ao V2 max: 127.6 cm/sec MV max P.2 mmHg MV P1/2t: 47.6 msec Ao max P.5 mmHg MV V2 mean: 72.6 cm/sec Ao V2 mean: 84.9 cm/sec MV mean P.8 mmHg MV dec slope: 702.6 cm/sec2 Ao mean P.3 mmHg MV V2 VTI: 28.8 cm MVA(P1/2t): 4.6 cm2 Ao V2 VTI: 24.0 cm AV (velocity ratio): 0.49 AI max terry: 282.6 cm/sec LV V1 max: 67.9 cm/sec MR max terry: 430.8 cm/sec AI max P.9 mmHg LV V1 max P.9 mmHg MR max P.2 mmHg LV V1 mean P.0 mmHg MR mean terry: 327.7 cm/sec AI dec slope: 78.2 cm/sec2 LV V1 mean: 48.2 cm/sec MR mean P.7 mmHg AI P1/2t: 1058 msec LV V1 VTI: 11.7 cm MR VTI: 160.8 cm PA V2 max: 72.8 cm/sec PI end-d terry: 133.7 cm/sec TR max terry: 193.8 cm/sec TR max P.0 mmHg ECHO/Echo Complete W/ Contrast Interpretation Summary The estimated ejection fraction is 10-15 %. Acute LV systolic dysfunction Worsening of LV systolic function is noted from last echocardiogram in November 29 3 Mitral annuloplasty ring noted Mild to moderate MR Mild TR Contrast echo using Definity Ordering Physician: Willa Garcia Performed By: Michael Walls RCS
[2023-03-16] MEDS: Atorvastatin Calcium 20 MG Tablet PO (22:25)
[2023-03-16] MEDS: Metoprolol(XL)Succ 25 MG Tablet PO (22:25)
[2023-03-16] MEDS: APIXABAN 5 MG TABLET PO (22:27)
[2023-03-16] MEDS: Timolol 0.5% 5ML OPTH.BTL 1 DRP LEFT EYE (22:31)
[2023-03-17] VITALS (10 sets, daily range): BP systolic 93–103; BP diastolic 62–68; PULSE 81–92; RESP 18–19; TEMP 36.2–36.9; O2SAT 94–100; BMI 27.3
[2023-03-17 01:10] LABS: Troponin-I HS 26 pg/mL (3.0-54.0)
[2023-03-17 03:01] LABS: Troponin-I HS 25 pg/mL (3.0-54.0)
[2023-03-17 06:44] LABS: Absolute Lymphocyte Count 1.53 X10^3/uL (0.83-4.51); Absolute Neutrophil Count 6.2 X10^3/uL (2.0-7.7); Basophil# 0.05 X10^3/uL; Basophil% 0.6 % (0-1); Eosinophil# 0.21 X10^3/uL; Eosinophils% 2.4 % (0-5); Hematocrit 35.8 % (37-47); Hemoglobin 11.1 g/dL (12.0-15.0); Lymphocyte # 1.53 X10^3/ul (0.83-4.51); Lymphocyte % 17.8 % (19-41); Mean Corpuscular Hgb 30.2 pg (27.0-32.0); Mean Corpuscular Volume 97.5 fL (81-99); Mean Platelet Vol. 11.7 fl (6.2-12.0); Monocyte# 0.57 X10^3/uL; Monocyte% 6.6 % (0-10); NRBC Flagged by Analyzer 0 % (0-5); Neutrophil % 72.4 % (47-70); Platelet Count 165 K/mm3 (150-450); RBC Distribution Width CV 15.6 % (11.6-14.6); RBC Distribution Width SD 55.3 fl (35.1-43.9); Red Blood Count 3.67 M/mm3 (4.2-5.4); White Blood Count 8.6 K/mm3 (4.4-11.0)
[2023-03-17 07:18] LABS: ALB/GLOB Ratio 0.9 RATIO (0.9-2.4); AST(SGOT) 44 U/L (15-37); Alanine Aminotransfer ALT/SGPT 44 U/L (13-56); Alkaline Phosphatase 136 U/L (45-117); Anion Gap 7 (5-15); BUN 22 mg/dL (7-18); BUN/Creat Ratio 15.9 RATIO (10-20); Calcium,Total 7.9 mg/dL (8.5-10.1); Chloride 105 mmol/L (98-107); Cholesterol 73 mg/dL (200); Creatinine, Serum 1.38 mg/dL (0.55-1.02); EST Glomerular Filtration Rate 39 mL/min (>60); Est Glom Filt Rate - Afr Amer 47 mL/min (>60); Globulin 3.5 g/dL (2.2-4.2); Glucose 102 mg/dL (74-106); High Density Lipoprotein 38 mg/dL; Potassium 3.4 mmol/L (3.5-5.1); Protein, Total 6.5 g/dL (6.4-8.2); Sodium Level 139 mmol/L (136-145); Thyroid Stim Hormone (TSH) 1.06 uIU/mL (0.358-3.74); Triglycerides 67 mg/dL; Troponin-I HS 24 pg/mL (3.0-54.0); Very Low Density Lipoprotein 13 mg/dL (5-40)
[2023-03-17] MEDS: Aspirin 81 MG TAB.CHEW PO (08:17)
--- NOTE | 2023-03-17 09:08 | PN.HOSP_ITS ---
Subjective Subjective Breathing well. Concerned about fluid around her heart. Objective Data Objective Data Vital Signs: Vital Signs Temp Pulse Resp BP Pulse Ox O2 Del Method O2 Flow Rate 36.5 C L 81 18 103/67 100 Room Air 2 03/17/23 08:00 03/17/23 08:00 03/17/23 08:00 03/17/23 08:00 03/17/23 08:00 03/17/23 08:08 03/17/23 08:00 Oxygen Flow Rate (L/min) 2 Oxygen Delivery Method Room Air Weight: 70 kg Body Mass Index (BMI) 27.3 Intake & Output: Intake and Output for Last 24 Hours 03/15/23 03/16/23 03/17/23 23:59 23:59 23:59 Output Total 400 / 400 Balance -400 / -400 Lab / Micro Data 03/17/23 06:35 03/17/23 06:35 Labs: Laboratory Results - last 24 hr 03/16/23 00:35: Troponin I High Sens 26 03/16/23 13:15: WBC 9.0, RBC 3.73 L, Hgb 11.6 L, Hct 34.6 L, MCV 92.8, MCH 31.1, MCHC 33.5 D, RDW Std Deviation 52.0 H, RDW Coeff of Sakina 15.3 H, Plt Count 182, MPV 11.8, Immature Gran % (Auto) 0.400, Neut % (Auto) 73.8 H, Lymph % (Auto) 17.7 L, [place] % (Auto) 6.6, Eos % (Auto) 1.2, Baso % (Auto) 0.3, Absolute Neuts (auto) 6.6, Absolute Lymphs (auto) 1.59, Nucleated RBC % 0, Sodium 140, Potassium 2.8 L, Chloride 103, Carbon Dioxide 26.0, Anion Gap 11, BUN 24 H, Creatinine 1.48 H, Estim Creat Clear Calc 23.41, Est GFR (MDRD) Af Amer 43 L, Est GFR (MDRD) Non-Af 36 L, BUN/Creatinine Ratio 16.2, Glucose 109 H, Calcium 8.1 L, B-Natriuretic Peptide 1513.1 H 03/16/23 17:18: Magnesium 2.1 03/17/23 02:33: Troponin I High Sens 25 03/17/23 06:35: WBC 8.6, RBC 3.67 L, Hgb 11.1 L, Hct 35.8 L, MCV 97.5 D, MCH 30.2, MCHC 31.0 L D, RDW Std Deviation 55.3 H, RDW Coeff of Sakina 15.6 H, Plt Count 165, MPV 11.7, Immature Gran % (Auto) 0.200, Neut % (Auto) 72.4 H, Lymph % (Auto) 17.8 L, [place] % (Auto) 6.6, Eos % (Auto) 2.4, Baso % (Auto) 0.6, Absolute Neuts (auto) 6.2, Absolute Lymphs (auto) 1.53, Nucleated RBC % 0, Sodium 139, Potassium 3.4 L, Chloride 105, Carbon Dioxide 27.0, Anion Gap 7, BUN 22 H, C reatinine 1.38 H, Estim Creat Clear Calc 25.10, Est GFR (MDRD) Af Amer 47 L, Est GFR (MDRD) Non-Af 39 L, BUN/Creatinine Ratio 15.9, Glucose 102, Calcium 7.9 L, Total Bilirubin 1.10 H, AST 44 H, ALT 44, Alkaline Phosphatase 136 H, Troponin I High Sens 24, Total Protein 6.5, Albumin 3.0 L, Globulin 3.5, Albumin/Globulin Ratio 0.9, Triglycerides 67, Cholesterol 73, LDL Cholesterol 22, VLDL Cholesterol 13, HDL Cholesterol 38 L, TSH 1.06 Radiography Diagnostic Testing: Radiology Impression Chest X-Ray 03/16/23 16:10 IMPRESSION: No interval change. Electronically Signed: Carson Edmonds MD at 16:33 EST , Rhythm Strip Rhythm Strip: Paced Rate: 85 Ectopy: None Physical Exam Const alert and no apparent distress Cardio regular rate, regular rhythm, S1 normal heart sound and S2 normal heart sound GI normal to inspection, nondistended, normoactive bowel sounds, soft to palpation, non-tender and non-distended Extremity normal to inspection Neuro Sensorium / Orientation: awake and alert Assessment & Plan Assessment/Plan (1) CHF exacerbation: PLAN: acute HFrEF Most recent ECHO noted 11/2022 from OSH with CABG with EF noted 30%, will repeat. Cardiology consulted, pending. With metoprolol succinate, Chest x-ray shows pulmonary vascular congestion with elevated BNP of over thousand. Weight is at 70 kg which is actually down from where she was back in January where it was a 72.5. Echo shows an EF of 10 to 15%. Mild to moderate mitral regurgitation, mild tricuspid regurgitation. Echo from December 18 at outside hospital showed an EF of 30%. This is worse from then Cardiology following: [place] not to be a candidate for Entresto nor REMI inhibitors at this time. (2) Hypokalemia: PLAN: improved. replace PLAN: Plan Chronic conditions: * CAD: s/p PCI NEGRO to the RCA 11/2018 and CABG times with PEDRAZA to LAD and SVG to OM1, will continue asa, eliquis, entresto, metoprolol home regimen. * Hypertension: Continue home regimen including Entresto, metoprolol, IV Lasix, PRN hydralazine. Given low normal BP will prioritize IV diuretics at this time. * Hyperlipidemia: Continue home statin regimen. AM FLP. * PAF: We will continue patient home metoprolol and Eliquis regimen. * Valvular Heart Disease: s/p mitral valve repair 12/14/2022 with 28 ring with left atrial appendage ligation and atrial clip, most recent ECHO from 11/2022 with left third percent with moderate mitral regurgitation, repeat echo requested as noted. * Chronic Kidney Disease Stage III unclear subtype per GFR trending: Admission BUN/Cr 24/1.48, baseline renal function primarily 1.2-1.5, repeat BMP in AM. * Chronic normocytic anemia: Admission hemoglobin 11.6, MCV 92.8, baseline hemoglobin appears more recently 11-12 range, stable, continue to trend. * History of Mobitz type II AV block: Status post pacemaker placement, most recent pacer check noted 03/06/2023 stable. * GERD: We will continue home meds DVT Prophylaxis: We will continue patient home Eliquis regimen. CODE status: Full Charges/Coding Visit Charges Inpatient E&M: 73520 Subs Hosp L2
[2023-03-17] MEDS: APIXABAN 5 MG TABLET PO ×2 (09:36→20:53)
[2023-03-17] MEDS: Potassium Chloride Oral Tablet 20 MEQ PO (09:40)
[2023-03-17] MEDS: Pantoprazole Sodium 40 MG Tablet PO (09:46)
[2023-03-17] MEDS: Acyclovir 800 MG Tablet PO (09:47)
[2023-03-17] MEDS: Timolol 0.5% 5ML OPTH.BTL 1 DRP LEFT EYE ×2 (09:49→20:53)
[2023-03-17] MEDS: Metoprolol(XL)Succ 25 MG Tablet PO ×2 (09:54→20:53)
[2023-03-17] MEDS: Furosemide 40 MG/4 ML Vial IV (10:00)
[2023-03-17] MEDS: 0.9% Saline Lock 10 ML Syringe IV (10:04)
--- NOTE | 2023-03-17 10:20 | CASEMGMT ---
RN CM Face to Face with patient for initial transition planning/care coordination assessment. RN CM introduced self and role at [facility]. Patient sitting in chair, alert and oriented, family at bedside. Patient willing to participate in assessment and is able to answer all questions appropriately. Care providers, pharmacy, and demographics verified. Patient wishes to discharge home with resumption of CCN services. Patient states she has no further needs or concerns at this time. CM to follow for discharge planning needs that may arise. 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 Patient is independent at home. Transportation: self, daughters DME/HHC: Patient has shower chair, raised toilet, cane, walker, grab bars, medical alert at home. No previous HHC or SNF. Patient is active with CCN Disposition Plan: Patient to discharge home with CCN, family support, and follow-up plans in place. Mercedes LESTERN, RN, CM
[2023-03-17] MEDS: Flu Vacc QS2023-24(65YR UP)/PF 240 MCG/0.7 ML Syringe IM (10:27)
[2023-03-17] MEDS: Empagliflozin 25 MG Tablet PO (10:42)
--- NOTE | 2023-03-17 14:00 | CON.PCM.CA_ITS ---
Assessment & Plan Assessment/Plan (1) Atherosclerosis of coronary artery of [place] heart without angina pectoris: (2) History of ST elevation myocardial infarction (STEMI): (3) Old anteroseptal myocardial infarction: (4) History of coronary artery stent placement: (5) Essential (primary) hypertension: (6) Chronic diastolic (congestive) heart failure: (7) Pulmonary fibrosis: (8) Paroxysmal atrial flutter: (9) S/P CABG x 2: (10) S/P mitral valve repair: (11) CHF exacerbation: PLAN: Plan 83-year-old patient with extensive cardiac history Patient had a history of STEMI/anteroseptal NM 2018 she had PCI stent of mid LAD as well she had a PCI and stent of the left circumflex Patient in November 2022 underwent carotid bypass surgery x2 with PEDRAZA to LAD and SVG to OM1 As well she has mitral valve repair and left atrial appendage ligation This presentation is symptoms of shortness of breath patient also had a history of paroxysmal A-fib and has a pacemaker. I reviewed all the current evaluation here in this admission including her current lab result cardiac telemetry the EKG she had a paced cardiac rhythm. And her presentation is due to acute on chronic systolic heart failure On repeat echocardiogram she had worsening of her LV systolic function Ejection fraction in the range of 10-15%. Cardiac care plan recommendations; 1. I noted she had elevated creatinine 1.38 She is not a candidate for Entresto or REMI inhibitor at this point We will continue on beta-amaury for rate control diuretic to monitor electrolytes and renal function. Patient will follow-up with her primary insurance operations rep Dr. Brumfield With the plan of upgrading her pacemaker to BiV ICD And maximizing her medical therapy/GDMT Rashid Hankins MD,[facility] HPI Consult Data Date of Consult: 03/17/23 HPI Narrative Reason for Consultation: CAD status post CABG HPI Narrative: SOHAIL ALCARAZ, is a 83 F who presents [facility] Medical History (Updated 03/17/23 @ 09:[address] Deandre Lozano, DO) Acute kidney injury Anxiety Atherosclerosis of coronary artery of [place] heart without angina pectoris Chronic anemia Essential (primary) hypertension Fractured sternum HFrEF (heart failure with reduced ejection fraction) History of ST elevation myocardial infarction (STEMI) (11/16/18) History of vertigo Ischemic cardiomyopathy Mobitz (type) II atrioventricular block 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) Home Medications aspirin 81 mg chewable tablet 81 mg PO DAILY@0800 circulation 12/08/16 [History Last Taken 11/22/22] erythromycin 5 mg/gram (0.5 %) eye ointment 1 applic LEFT EYE QHS eye health 12/08/16 [History Last Taken 07/31/18] omeprazole 40 mg capsule,delayed release 40 mg PO DAILY acid reflux 12/08/16 [History Last Taken 11/22/22] meclizine 25 mg tablet 25 mg PO TID PRN PRN Dizziness 08/01/18 [History Last Ta lilian Unknown] acyclovir 800 mg tablet 800 mg PO DAILY 09/11/19 [History Last Taken 11/22/22] difluprednate 0.05 % eye drops 1 drp ophthalmic (eye) Q OTHER DAY 05/13/20 [History Last Taken Unknown] timolol maleate 0.5 % eye drops 1 drp ophthalmic (eye) BID 02/14/22 [History Last Taken Unknown] vit A 300 mcg-C 200 mg-E 27 mg-lutein 2 mg and minerals tablet (Eye Health Plus Lutein) 1 tab PO BID 02/14/22 [History Last Taken Unknown] dapagliflozin propanediol 10 mg tablet (Farxiga) 10 mg PO DAILY #90 tabs 09/19/22 [Rx Last Taken 11/22/22] apixaban 5 mg tablet (Eliquis) 5 mg PO BID #180 tabs 02/09/23 [Rx Last Taken Unknown] atorvastatin 20 mg tablet 20 mg PO QHS #90 tabs 02/09/23 [Rx Last Taken Unknown] sacubitril 24 mg-valsartan 26 mg tablet (Entresto) 1 tab PO BID #180 tabs 02/09/23 [Rx Last Taken Unknown] metoprolol succinate 25 mg tablet,extended release 24 hr 25 mg PO BID This is a dose increase #180 tabs 02/19/23 [Rx Last Taken Unknown] furosemide 20 mg tablet 40 mg (2 x 20 mg) PO DAILY #90 tabs 03/06/23 [Rx Last Taken Unknown] potassium chloride 20 mEq tablet,extended release 20 meq PO DAILY #90 tabs 03/14/23 [Rx Last Taken Unknown] cholecalciferol (vitamin D3) 50 mcg (2,000 unit) tablet (Vitamin D3) 2,000 unit PO DAILY 03/16/23 [History Last Taken Unknown] Allergy/AdvReac Type Severity Reaction Status Date / Time morphine Allergy Vomiting Verified 03/16/23 12:43 Family History (Updated 03/16/23 @ 20:[address] Willa Garcia MD) Father Heart disease Mother Heart disease Chronic anemia Iron deficiency Surgical History History of coronary artery stent placement (12/19/18) History of left heart catheterization (06/21/20) Presence of permanent cardiac pacemaker (08/02/18) S/P CABG x 2 S/P mitral valve repair Social History (Updated 03/16/23 @ 20:[address] Willa Garcia MD) household members: none Smoking Status: Former smoker how long ago did patient quit smoking: Quit in 1967. alcohol intake: never substance use type: does not use caffeine: Yes Type: coffee Number of servings: 2 Physical Exam Cardio Cardio Narrative: Seen and examined at bedside along with the nursing staff Sitting out in a chair Cardiac exam S1-S2 is regular Chest exam mildly diminished air entry bilateral. Examination lower extremity bilateral lower extremity edema Risk Stratification Risk Stratification Applicable: No Objective Data Vital Signs: Vital Signs Temp Pulse Resp BP Pulse Ox O2 Del Method O2 Flow Rate 97.1 F L 92 18 98/65 99 Room Air 2 03/17/23 13:43 03/17/23 13:43 03/17/23 13:43 03/17/23 13:43 03/17/23 13:43 03/17/23 13:46 03/17/23 08:12 Oxygen Flow Rate (L/min) 2 Oxygen Delivery Method Room Air Weight: 154 lb 5.177 oz Body Mass Index (BMI) 27.3 Intake & Output: Intake and Output for Last 24 Hours 03/15/23 03/16/23 03/17/23 23:59 23:59 23:59 Intake Total 240 / 240 Output Total 400 / 400 Balance -160 / -160 Lab / Micro Data 03/17/23 06:35 03/17/23 06:35 Labs: Laboratory Results - last 24 hr 03/16/23 00:35: Troponin I High Sens 26 03/16/23 13:15: WBC 9.0, RBC 3.73 L, Hgb 11.6 L, Hct 34.6 L, MCV 92.8, MCH 31.1, MCHC 33.5 D, RDW Std Deviation 52.0 H, RDW Coeff of Sakina 15.3 H, Plt Count 182, MPV 11.8, Immature Gran % (Auto) 0.400, Neut % (Auto) 73.8 H, Lymph % (Auto) 17.7 L, [place] % (Auto) 6.6, Eos % (Auto) 1.2, Baso % (Auto) 0.3, Absolute Neuts (auto) 6.6, Absolute Lymphs (auto) 1.59, Nucleated RBC % 0, Sodium 140, Potassium 2.8 L, Chloride 103, Carbon Dioxide 26.0, Anion Gap 11, BUN 24 H, Creatinine 1.48 H, Estim Creat Clear Calc 23.41, Est GFR (MDRD) Af Amer 43 L, Est GFR (MDRD) Non-Af 36 L, BUN/Creatinine Ratio 16.2, Glucose 109 H, Calcium 8.1 L, B-Natriuretic Peptide 1513.1 H 03/16/23 17:18: Magnesium 2.1 03/17/23 02:33: Troponin I High Sens 25 03/17/23 06:35: WBC 8.6, RBC 3.67 L, Hgb 11.1 L, Hct 35.8 L, MCV 97.5 D, MCH 30.2, MCHC 31.0 L D, RDW Std Deviation 55.3 H, RDW Coeff of [place] 15.6 H, Plt Count 165, MPV 11.7, Immature Gran % (Auto) 0.200, Neut % (Auto) 72.4 H, Lymph % (Auto) 17.8 L, [place] % (Auto) 6.6, Eos % (Auto) 2.4, Baso % (Auto) 0.6, Absolute Neuts (auto) 6.2, Absolute Lymphs (auto) 1.53, Nucleated RBC % 0, Sodium 139, Potassium 3.4 L, Chloride 105, Carbon Dioxide 27.0, Anion Gap 7, BUN 22 H, Creatinine 1.38 H, Estim Creat Clear Calc 25.10, Est GFR (MDRD) Af Amer 47 L, Est GFR (MDRD) Non-Af 39 L, BUN/Creatinine Ratio 15.9, Glucose 102, Calcium 7.9 L, Total Bilirubin 1.10 H, AST 44 H, ALT 44, Alkaline Phosphatase 136 H, Troponin I High Sens 24, Total Protein 6.5, Albumin 3.0 L, Globulin 3.5, Albumin/Globulin Ratio 0.9, Triglycerides 67, Cholesterol 73, LDL Cholesterol 22, VLDL Cholesterol 13, HDL Cholesterol 38 L, TSH 1.06 Rhythm Strip Rhythm Strip: Paced Rate: 85 Ectopy: None Cardiology Labs/Tests 03/16/23 13:15: WBC 9.0, RBC 3.73 L, Hgb 11.6 L, Hct 34.6 L, MCV 92.8, MCH 31.1, MCHC 33.5 D, Plt Count 182, MPV 11.8, Immature Gran % (Auto) 0.400, Neut % (Auto) 73.8 H, Lymph % (Auto) 17.7 L, [place] % (Auto) 6.6, Eos % (Auto) 1.2, Baso % (Auto) 0.3, Absolute Neuts (auto) 6.6, Nucleated RBC % 0, Sodium 140, Potassium 2.8 L, Chloride 103, Carbon Dioxide 26.0, Anion Gap 11, BUN 24 H, Creatinine 1.48 H, Est GFR (MDRD) Af Amer 43 L, Est GFR (MDRD) Non-Af 36 L, BUN/Creatinine Ratio 16.2, Glucose 109 H, Calcium 8.1 L, B-Natriuretic Peptide 1513.1 H 03/16/23 17:18: Magnesium 2.1 03/17/23 06:35: WBC 8.6, RBC 3.67 L, Hgb 11.1 L, Hct 35.8 L, MCV 97.5 D, MCH 30.2, MCHC 31.0 L D, Plt Count 165, MPV 11.7, Immature Gran % (Auto) 0.200, Neut % (Auto) 72.4 H, Lymph % (Auto) 17.8 L, [place] % (Auto) 6.6, Eos % (Auto) 2.4, Baso % (Auto) 0.6, Absolute Neuts (auto) 6.2, Nucleated RBC % 0, Sodium 139, Potassium 3.4 L, Chloride 105, Carbon Dioxide 27.0, Anion Gap 7, BUN 22 H, Creatinine 1.38 H, Est GFR (MDRD) Af Amer 47 L, Est GFR (MDRD) Non-Af 39 L, BUN/Creatinine Ratio 15.9, Glucose 102, Calcium 7.9 L, Total Bilirubin 1.10 H, Triglycerides 67, Cholesterol 73, LDL Cholesterol 22, VLDL Cholesterol 13, HDL Cholesterol 38 L Rhythm: EKG: ECHO: Stress Test: Cardiac Cath: PCI: CT Surgery: Holter monitor: EPS: PPM: CXR: Chest CT Scan: Radiography Diagnostic Testing: Radiology Impression Chest X-Ray 03/16/23 16:10 IMPRESSION: No interval change. Electronically Signed: Carson Edmonds MD at 16:33 EST , Echocardiogram 03/16/23 21:50 Interpretation Summary The estimated ejection fraction is 10-15 %. Acute LV systolic dysfunction Worsening of LV systolic function is noted from last echocardiogram in December 20 Mitral annuloplasty ring noted Mild to moderate MR Mild TR Contrast echo using Definity Ordering Physician: Willa Garcia Performed By: Michael Walls RCS
[2023-03-17] MEDS: Spironolactone 25 MG Tablet PO (18:11)
[2023-03-17] MEDS: Atorvastatin Calcium 20 MG Tablet PO (20:53)
[2023-03-18] VITALS (9 sets, daily range): BP systolic 94–112; BP diastolic 60–78; PULSE 76–98; RESP 12–18; TEMP 36.4–36.5; O2SAT 95–100; BMI 27.5
[2023-03-18 06:47] LABS: Anion Gap 7 (5-15); BUN 25 mg/dL (7-18); BUN/Creat Ratio 19.8 RATIO (10-20); Chloride 105 mmol/L (98-107); Creatinine, Serum 1.26 mg/dL (0.55-1.02); EST Glomerular Filtration Rate 43 mL/min (>60); Est Glom Filt Rate - Afr Amer 52 mL/min (>60); Estimated Creatinine Clearance 27.49 ml/min; Glucose 89 mg/dL (74-106); Potassium 3.3 mmol/L (3.5-5.1); Sodium Level 141 mmol/L (136-145)
[2023-03-18] MEDS: Aspirin 81 MG TAB.CHEW PO (07:56)
[2023-03-18] MEDS: APIXABAN 5 MG TABLET PO ×2 (07:57→20:54)
[2023-03-18] MEDS: Acyclovir 800 MG Tablet PO (07:58)
[2023-03-18] MEDS: Spironolactone 25 MG Tablet PO (07:58)
[2023-03-18] MEDS: Potassium Chloride Oral Tablet 20 MEQ PO (07:58)
[2023-03-18] MEDS: Pantoprazole Sodium 40 MG Tablet PO (07:59)
[2023-03-18] MEDS: Empagliflozin 25 MG Tablet PO (07:59)
[2023-03-18] MEDS: Timolol 0.5% 5ML OPTH.BTL 1 DRP LEFT EYE ×2 (08:00→20:53)
[2023-03-18] MEDS: Furosemide 40 MG/4 ML Vial IV (08:03)
--- NOTE | 2023-03-18 09:20 | PN.HOSP_ITS ---
Reason for Visit Reason for Visit: Diagnoses Hypokalemia (03/16/23) Essential (primary) hypertension (03/16/23) Atherosclerotic heart disease of [place] coronary artery without angina pectoris (03/16/23) Old myocardial infarction (03/16/23) Unspecified atrial flutter (03/16/23) Chronic diastolic (congestive) heart failure (03/16/23) Heart failure, unspecified (03/16/23) Pulmonary fibrosis, unspecified (03/16/23) Other specified health status (03/16/23) Presence of aortocoronary bypass graft (03/16/23) Presence of coronary angioplasty implant and graft (03/16/23) Other specified postprocedural states (03/16/23) Subjective Subjective Better today. Denies shortness of breath. Objective Data Objective Data Vital Signs: Vital Signs Temp Pulse Resp BP Pulse Ox O2 Del Method O2 Flow Rate 36.5 C L 83 12 112/78 96 Room Air 2 03/18/23 07:53 03/18/23 07:53 03/18/23 07:53 03/18/23 07:53 03/18/23 07:53 03/18/23 08:10 03/17/23 08:12 Oxygen Flow Rate (L/min) 2 Oxygen Delivery Method Room Air Weight: 70.5 kg Body Mass Index (BMI) 27.5 Intake & Output: Intake and Output for Last 24 Hours 03/16/23 03/17/23 03/18/23 23:59 23:59 23:59 Intake Total 270 / 270 Output Total 400 / 400 Balance -130 / -130 Lab / Micro Data 03/17/23 06:35 03/18/23 05:26 Labs: Laboratory Results - last 24 hr 03/18/23 05:26: Sodium 141, Potassium 3.3 L, Chloride 105, Carbon Dioxide 29.0, Anion Gap 7, BUN 25 H, Creatinine 1.26 H, Estim Creat Clear Calc 27.49, Est GFR (MDRD) Af Amer 52 L, Est GFR (MDRD) Non-Af 43 L, BUN/Creatinine Ratio 19.8, Glucose 89, Calcium 8.0 L Radiography Diagnostic Testing: Radiology Impression Echocardiogram 03/16/23 21:50 Interpretation Summary The estimated ejection fraction is 10-15 %. Acute LV systolic dysfunction Worsening of LV systolic function is noted from last echocardiogram in December 20 Mitral annuloplasty ring noted Mild to moderate MR Mild TR Contrast echo using Definity Ordering Physician: Willa Garcia Performed By: Michael Walls RCS Rhythm Strip Rhythm Strip: Paced Rate: 85 Ectopy: None Physical Exam Const alert and no apparent distress Resp normal respiratory effort and no retractions Cardio regular rate, regular rhythm, S1 normal heart sound and S2 normal heart sound GI normal to inspection, nondistended, normoactive bowel sounds, soft to palpation and non-tender Neuro Sensorium / Orientation: awake and alert Psych affect normal Assessment & Plan Assessment/Plan (1) CHF exacerbation: PLAN: acute HFrEF Most recent ECHO noted 11/2022 from OSH with CABG with EF noted 30%, will repeat. Cardiology consulted, pending. With metoprolol succinate, Chest x-ray shows pulmonary vascular congestion with elevated BNP of over [place]. Weight is at 70 kg which is actually down from where she was back in January where it was a 72.5. Echo shows an EF of 10 to 15%. Mild to moderate mitral regurgitation, mild tricuspid regurgitation. Echo from December 18 at outside hospital showed an EF of 30%. This is worse from then Cardiology following: [place] not to be a candidate for Entresto nor REMI inhibitors at this time. Spironolactone added by cardiology. Discussed with the patient about the importance of fluid restriction as well as sodium restriction. Patient endorses that she was not abiding by a fluid restricted diet beforehand. Given worsening EF, pt will need to have pacemaker changed to AICD. Timing of the procedure per cardiology. I attempted to reach Dr. Hankins about this. (2) Hypokalemia: PLAN: improved. replace PLAN: Plan Chronic conditions: * CAD: s/p PCI NEGRO to the RCA 11/2018 and CABG times with PEDRAZA to LAD and SVG to OM1, will continue asa, eliquis, entresto, metoprolol home regimen. * Hypertension: Continue home regimen including Entresto, metoprolol, IV Lasix, PRN hydralazine. Given low normal BP will prioritize IV diuretics at this time. * Hyperlipidemia: Continue home statin regimen. AM FLP. * PAF: We will continue patient home metoprolol and Eliquis regimen. * Valvular Heart Disease: s/p mitral valve repair 12/14/2022 with 28 ring with left atrial appendage ligation and atrial clip, most recent ECHO from 11/2022 with left third percent with moderate mitral regurgitation, repeat echo requested as noted. * Chronic Kidney Disease Stage III unclear subtype per GFR trending: Admission BUN/Cr 24/1.48, baseline renal function primarily 1.2-1.5, repeat BMP in AM. * Chronic normocytic anemia: Admission hemoglobin 11.6, MCV 92.8, baseline hemoglobin appears more recently 11-12 range, stable, continue to trend. * History of Mobitz type II AV block: Status post pacemaker placement, most recent pacer check noted 03/06/2023 stable. * GERD: We will continue home meds DVT Prophylaxis: We will continue patient home Eliquis regimen. CODE status: Full Charges/Coding Visit Charges Inpatient E&M: 87680 Subs Hosp L2
[2023-03-18] MEDS: Potassium Chloride Oral Tablet 20 MEQ 40 MEQ PO (12:09)
--- NOTE | 2023-03-18 16:01 | PN.CARD_ITS ---
Subjective Subjective No events noted from last night Objective Data Vital Signs: Vital Signs Temp Pulse Resp BP Pulse Ox O2 Del Method O2 Flow Rate 97.5 F L 88 16 99/66 98 Room Air 0 03/18/23 12:04 03/18/23 12:04 03/18/23 12:04 03/18/23 13:19 03/18/23 12:04 03/18/23 12:04 03/18/23 09:24 Oxygen Flow Rate (L/min) [ 0 AMBULATING on Room Air] Oxygen Flow Rate (L/min) [At 0 REST on Room Air] Oxygen Flow Rate (L/min) 2 Oxygen Delivery Method Room Air Weight: 155 lb 6.814 oz Body Mass Index (BMI) 27.5 Intake & Output: Intake and Output for Last 24 Hours 03/16/23 03/17/23 03/18/23 23:59 23:59 23:59 Intake Total 270 / 270 200 / 200 Output Total 400 / 400 Balance -130 / -130 200 / 200 Lab / Micro Data 03/17/23 06:35 03/18/23 05:26 Labs: Laboratory Results - last 24 hr 03/18/23 05:26: Sodium 141, Potassium 3.3 L, Chloride 105, Carbon Dioxide 29.0, Anion Gap 7, BUN 25 H, Creatinine 1.26 H, Estim Creat Clear Calc 27.49, Est GFR (MDRD) Af Amer 52 L, Est GFR (MDRD) Non-Af 43 L, BUN/Creatinine Ratio 19.8, Glucose 89, Calcium 8.0 L Rhythm Strip Rhythm Strip: Paced Rate: 85 Ectopy: None Cardiology Labs/Tests 03/18/23 05:26: Sodium 141, Potassium 3.3 L, Chloride 105, Carbon Dioxide 29.0, Anion Gap 7, BUN 25 H, Creatinine 1.26 H, Est GFR (MDRD) Af Amer 52 L, Est GFR ( MDRD) Non-Af 43 L, BUN/Creatinine Ratio 19.8, Glucose 89, Calcium 8.0 L Rhythm: EKG: ECHO: Stress Test: Cardiac Cath: PCI: CT Surgery: Holter monitor: EPS: PPM: CXR: Chest CT Scan: Assessment & Plan Assessment/Plan (1) S/P CABG x 2: (2) S/P mitral valve repair: (3) Fatigue: (4) Ischemic cardiomyopathy: (5) SOB (shortness of breath): (6) Atherosclerosis of coronary artery of [place] heart without angina pectoris: (7) History of coronary artery stent placement: (8) Mobitz (type) II atrioventricular block: (9) Hypokalemia: (10) WIN (dyspnea on exertion): (11) Anticoagulant long-term use: PLAN: Plan 83-year-old patient who follow-up at the cardiac clinic with 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 Today I reviewed all the record of this patient which includes a cardiac telemetry currently as well as current cardiac medication Also discussed with hospitalist the cardiac care plan Patient had a history of ischemic cardiomyopathy Aortocoronary bypass surgery History of prior angioplasty and stent. History of a pacemaker/has Mobitz type II AV block Valvular heart disease status post mitral valve repair which was done in December 14, 2022 Hypertension Hyperlipidemia CKD stage III Chronic normocytic anemia. And GERD The echocardiogram showed severe LV dysfunction Cardiac care plan recommendation 1. On review of telemetry today she had a paced cardiac rhythm also discussed recent cardiac evaluation by echocardiogram Which showed severe LV dysfunction 2. We will continue on GDMT I added Aldactone to the current treatment Patient currently on anticoagulation for paroxysmal A-fib. And continue to monitor electrolytes potassium renal function Not a candidate for Entresto at this point with reduced GFR and creatinine of 1.26 3. Patient to be set up for a LifeVest And follow-up as an outpatient with the cardiology And also discussed upgrading of the pacemaker to ICD BiV pacer which can be set up as an outpatient. From cardiac standpoint if she remains stable clinically she can be discharged home Rashid Hankins MD,FACC,[facility]
[2023-03-18] MEDS: Atorvastatin Calcium 20 MG Tablet PO ×2 (20:53)
[2023-03-18] MEDS: Metoprolol(XL)Succ 25 MG Tablet PO (20:53)
[2023-03-19 03:56] VITALS: BP 93/60; PULSE 83; RESP 15; TEMP 36.7; O2SAT 97
[2023-03-19 06:00] VITALS: BMI 27.2
[2023-03-19 07:10] LABS: Anion Gap 9 (5-15); BUN 29 mg/dL (7-18); BUN/Creat Ratio 22.8 RATIO (10-20); Calcium,Total 8.7 mg/dL (8.5-10.1); Chloride 106 mmol/L (98-107); Creatinine, Serum 1.27 mg/dL (0.55-1.02); EST Glomerular Filtration Rate 43 mL/min (>60); Est Glom Filt Rate - Afr Amer 52 mL/min (>60); Estimated Creatinine Clearance 27.28 ml/min; Glucose 94 mg/dL (74-106); Potassium 3.7 mmol/L (3.5-5.1); Sodium Level 141 mmol/L (136-145)
[2023-03-19 07:18] VITALS: O2SAT 96
[2023-03-19 08:00] VITALS: BP 105/60; PULSE 89; RESP 16; TEMP 36.4; O2SAT 99
[2023-03-19 09:10] VITALS: BP 105/60; PULSE 89
[2023-03-19] MEDS: Metoprolol(XL)Succ 25 MG Tablet PO (09:10)
[2023-03-19] MEDS: Acyclovir 800 MG Tablet PO (09:11)
[2023-03-19] MEDS: Pantoprazole Sodium 40 MG Tablet PO (09:11)
[2023-03-19] MEDS: Potassium Chloride Oral Tablet 20 MEQ PO (09:12)
[2023-03-19] MEDS: Aspirin 81 MG TAB.CHEW PO (09:12)
[2023-03-19] MEDS: APIXABAN 5 MG TABLET PO (09:12)
[2023-03-19] MEDS: Furosemide 40 MG/4 ML Vial IV (09:13)
[2023-03-19] MEDS: Spironolactone 25 MG Tablet PO (09:13)
[2023-03-19] MEDS: Timolol 0.5% 5ML OPTH.BTL 1 DRP LEFT EYE (09:14)
[2023-03-19] MEDS: 0.9% Saline Lock 10 ML Syringe IV (09:17)
[2023-03-19] MEDS: Empagliflozin 25 MG Tablet PO (10:51)
--- NOTE | 2023-03-19 10:52 | CASEMGMT ---
Patient has a Healthcare Power of Card Player and a Healthcare Living Will. Patient is aware documents are not on file and will bring in copies. Patient's daughter Radha is patient's Healthcare Power of Card Player. Georgiana ANDERSON
[2023-03-19 14:00] VITALS: BP 96/58; PULSE 97; RESP 16; TEMP 36.4; O2SAT 97
--- NOTE | 2023-03-19 14:00 | PN_ITS ---
Progress Note Discussed echo with pt. Discussed pursuing a life vest, she is agreeable with this. Will fax order forms. Also discussed a referral to [facility]. Since pt recently had cardiac surgery at [facility] fro her valve, will refer to Ep at [facility]. This will be done in our office.
[2023-03-19 15:33] VITALS: O2SAT 97; O2SAT 98
--- NOTE | 2023-03-19 16:16 | PCM.DC ---
Discharge Instructions Diet Discharge Diet: Low fat / Low cholesterol Activity Discharge Activity: Return to Normal Activity Dressing / Incision Call your doctor if you observe: Fever of 101 or Higher, Shortness of breath, Dizziness, Fainting spells, Swelling in the ankles, Chest pain and Increased palpitations (irregular heartbeat) Follow Up Care Test Results: Test results from this visit will be discussed in further detail at your follow-up appointment, if applicable. Discharge Plan Admission Admit Date/Time: 03/16/23 17:34 Attending Provider: Nicolás Howell Primary Care Provider: Luiz Avery Consulting Providers: Rashid Hankins; Willa Garcia; Deandre Lozano Instructions Additional Instructions / Restrictions: Your new medication Aldactone/spironolactone can cause an elevation in your potassium so I recommend holding your potassium supplement until you follow-up with your PCP in about a week or so to check your BMP to monitor your electrolytes and kidney function. Discharge Orders/Prescriptions Prescriptions: New spironolactone 25 mg Tablet 25 mg PO DAILY Qty: 30 0RF Continued acyclovir 800 mg tablet 800 mg PO DAILY difluprednate 0.05 % drops 1 drp OPHTHALMIC Q OTHER DAY Patient Comments: INSTILL 1 DROP INTO LEFT EYE THREE TIMES A WEEK timolol maleate 0.5 % drops 1 drp ophthalmic (eye) BID Rx Instructions: left eye Eye Health Plus Lutein 300 mcg-200 mg-27 mg-2 mg tablet 1 tab PO BID Farxiga 10 mg tablet 10 mg PO DAILY Qty: 90 3RF Eliquis 5 mg tablet 5 mg PO BID Qty: 180 3RF atorvastatin 20 mg tablet 20 mg PO QHS Qty: 90 3RF Entresto 24-26 mg tablet 1 tab PO BID Qty: 180 3RF Hold Instructions: hypotension omeprazole 40 MG capsule,delayed release(DR/EC) 40 mg PO DAILY Patient Comments: erythromycin 1 APPLIC ointment 1 applic LEFT EYE QHS Patient Comments: left eye aspirin 81 MG tablet,chewable 81 mg PO DAILY@0800 meclizine 25 MG tablet 25 mg PO TID PRN PRN (Reason: Dizziness) cholecalciferol (vitamin D3) [Vitamin D3] 50 mcg (2,000 unit) tablet 2,000 unit PO DAILY metoprolol succinate 25 mg tablet extended release 24 hr 25 mg PO BID Qty: 180 3RF furosemide 20 mg tablet 40 mg PO DAILY Qty: 90 3RF potassium chloride 20 mEq tablet extended release 20 meq PO DAILY Qty: 90 3RF Referrals / Follow Up: Luiz Avery MD [Primary Care Provider] - Within 1 Week Мария Eubanks PA [Med Staff - [facility] Practice Prof] - Within 1 Month Disposition Disposition (needs filled in before D/C Order can be placed): Home, Self Care
--- NOTE | 2023-03-19 16:31 | PCM.DC.SUM ---
Providers Date of Admission: 03/16/23 Primary Care Physician: Dr. Luiz Avery MD Consultations 03/16/23 21:50 Consult: Cardiology Routine Consulting Provider: Rashid Hankins Reason for Consult: HFrEF exac, recent CABG EMERGENT Consult: No MD Notified: Yes Date Notified: 03/16/23 Time Notified: 17:39 Method of Notification: Verbal Reason For Visit: HF EXACERBATION Diagnosis Discharge Diagnosis (1) S/P CABG x 2: Status: Chronic Code(s): Z95.1 - Presence of aortocoronary bypass graft (2) S/P mitral valve repair: Status: Acute Code(s): Z98.890 - Other specified postprocedural states (3) Fatigue: Status: Acute Code(s): R53.83 - Other fatigue (4) Ischemic cardiomyopathy: Status: Acute Code(s): I25.5 - Ischemic cardiomyopathy (5) SOB (shortness of breath): Status: Acute Code(s): R06.02 - Shortness of breath (6) Atherosclerosis of coronary artery of [place] heart without angina pectoris: Status: Chronic Code(s): I25.10 - Atherosclerotic heart disease of [place] coronary artery without angina pectoris (7) History of coronary artery stent placement: Status: Resolved Code(s): Z95.5 - Presence of coronary angioplasty implant and graft (8) Mobitz (type) II atrioventricular block: Status: Chronic Code(s): I44.1 - Atrioventricular block, second degree (9) Hypokalemia: Status: Acute Code(s): E87.6 - Hypokalemia (10) WIN (dyspnea on exertion): Status: Acute Code(s): R06.09 - Other forms of dyspnea (11) Anticoagulant long-term use: Status: Acute 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 Medications at Discharge Home Medications aspirin 81 mg chewable tablet 81 mg PO DAILY@0800 circulation 12/08/16 erythromycin 5 mg/gram (0.5 %) eye ointment 1 applic LEFT EYE [facility] eye health 12/08/16 omeprazole 40 mg capsule,delayed release 40 mg PO DAILY acid reflux 12/08/16 meclizine 25 mg tablet 25 mg PO TID PRN PRN Dizziness 04/04/19 acyclovir 800 mg tablet 800 mg PO DAILY 09/11/19 difluprednate 0.05 % eye drops 1 drp ophthalmic (eye) Q OTHER DAY 05/13/20 timolol maleate 0.5 % eye drops 1 drp ophthalmic (eye) BID 02/14/22 vit A 300 mcg-C 200 mg-E 27 mg-lutein 2 mg and minerals tablet (Eye Health Plus Lutein) 1 tab PO BID 02/14/22 dapagliflozin propanediol 10 mg tablet (Farxiga) 10 mg PO DAILY #90 tabs 09/19/22 apixaban 5 mg tablet (Eliquis) 5 mg PO BID #180 tabs 02/09/23 atorvastatin 20 mg tablet 20 mg PO QHS #90 tabs 02/09/23 sacubitril 24 mg-valsartan 26 mg tablet (Entresto) 1 tab PO BID #180 tabs 02/09/23 metoprolol succinate 25 mg tablet,extended release 24 hr 25 mg PO BID This is a dose increase #180 tabs 02/19/23 furosemide 20 mg tablet 40 mg (2 x 20 mg) PO DAILY #90 tabs 03/06/23 potassium chloride 20 mEq tablet,extended release 20 meq PO DAILY #90 tabs 03/14/23 cholecalciferol (vitamin D3) 50 mcg (2,000 unit) tablet (Vitamin D3) 2,000 unit PO DAILY 03/16/23 spironolactone 25 mg tablet 25 mg PO DAILY #30 tabs 03/19/23 Hospital Course Operations None Procedures 2-D Echocardiogram Summary of Care Provided Minutes Spent on Discharge: 40 Hospital Course: Per HPI: The patient is an 83 y/o F w/ PMHx: HTN, HLD, PAF, Chronic HFrEF/Ischemic cardiomyopathy (EF 11/2022 30%), Hx mobitz type II block s/p pacemaker placement, Valvular heart disease s/p MV repair, CAD s/p PCI and recent CABG x 2 11/2022, Chronic normocytic anemia, CKD stage III unclear subtype per GFR trending, Pulmonary Fibrosis who presents to the [facility] ED on 03/16/23 with history of ongoing persistent dyspnea worse over the last week with ED presentation 2 days prior to current presentation with increase of her Lasix, doubling however she still remains significantly dyspneic worse with exertion with orthopnea and mild increase swelling to her legs although no pitting edema prompting referral to the ED for evaluation. Patient denies any associated chest discomfort with her current presentation. In the ED included T97.8, heart rate 98, BP 109/69, respiratory rate 20, 99% on room air, CBC with WC 9.0, hemoglobin 11.6, MCV 92.8, platelet 192 without marked shift, BMP with potassium 2.8, BUN/creatinine 24/1.48, glucose 109, BNP one 513.1, chest x-ray with chronic fibrotic changes with no interval change from previous x-ray, EKG paced. In the ED patient administered Lasix 60 mg IV x1 as well as potassium chloride 40 mill equivalent p.o. x1. Hospital Course: 1. Acute on chronic systolic CHF exacerbation/CAD status post stent and CABG/HTN/HLD/A-fib?83-year-old presented to the hospital with ongoing dyspnea that have been worse over the last week or 2 prior to admission. Echocardiogram during this admission demonstrated a significant reduction in her EF from 30% down to 10 to 15%. She was placed on IV Lasix as well as p.o. Aldactone and her shortness of breath has improved. She is on an SGLT2 inhibitor as well and cardiology recommended fitting for a LifeVest which is occurring this afternoon prior to discharge. She did have episodes of hypokalemia and I requested that she follow-up with her PCP to monitor her potassium as an outpatient as well as her renal function and in the meantime to hold her potassium supplementation. I also recommended 1500 to 1800 cc fluid restriction. Cardiology feels that as she has had previous cardiac surgery at [facility] that they will set up a referral for possible AICD at that institution. I discussed with her the plan for discharge today she expressed understanding of the risk and benefits of going home and would like to go home today. 2. Chronic kidney disease stage III, chronic normocytic anemia, Mobitz type II AV block, GERD are all chronic medical conditions which complicate her care. Her home medications were continued where appropriate Physical Exam Narrative General: Alert, Oriented x3, Cooperative, No apparent distress HEENT: Atraumatic, PERRLA, EOMI, Normocephalic Oral: Moist Mucosa Neck: Supple, No JVD Lungs: Diminished, Normal air movement, No rhonchi, No wheeze, No rales Cardiovascular: Regular rate, Regular Rhythm, Normal S1, Normal S2, No murmurs Abdomen: Soft, Non Tender, Non-Distended, No Hepato-splenomegaly Extremities: Trace edema, Capillary Refill Less than 3 Seconds Skin: No rashes, No breakdown Musculoskeletal: No Tenderness to Palpation of Joints or Extremities Neurological: Cranial nerves II-XII grossly intact, Motor Exam 5/5 strength throughout, Sensory exam intact to light touch and pain Psych/Mental Status: Normal Affect, Appropriate Weight / BMI Weight Weight: 153 lb 10.595 oz Body Mass Index (BMI) 27.2 ABG / Lab / Microbiology Data 03/17/23 06:35 03/19/23 05:24 Laboratory: Laboratory Results - last 24 hr 03/19/23 05:24: Sodium 141, Potassium 3.7, Chloride 106, Carbon Dioxide 26.0, Anion Gap 9, BUN 29 H, Creatinine 1.27 H, Estim Creat Clear Calc 27.28, Est GFR (MDRD) Af Amer 52 L, Est GFR (MDRD) Non-Af 43 L, BUN/Creatinine Ratio 22.8 H, Glucose 94, Calcium 8.7 D/C Instructions Discharge Diet: Low fat / Low cholesterol and 6 Cup Fluid Restriction Call your doctor if you observe: Fever of 101 or Higher, Shortness of breath, Dizziness, Fainting spells, Swelling in the ankles, Chest pain and Increased palpitations (irregular heartbeat) Meaningful Use Info Meaningful Use Diagnoses (Choose all that apply): None applicable Discharge Plan Admission Admit Date/Time: 03/16/23 17:34 Attending Provider: Nicolás Howell Primary Care Provider: Luiz Avery Consulting Providers: Rashid Hankins; Willa Garcia; Deandre Lozano Instructions Additional Instructions / Restrictions: Your new medication Aldactone/spironolactone can cause an elevation in your potassium so I recommend holding your potassium supplement until you follow-up with your PCP in about a week or so to check your BMP to monitor your electrolytes and kidney function. Discharge Orders/Prescriptions Prescriptions: New spironolactone 25 mg Tablet 25 mg PO DAILY Qty: 30 0RF Continued acyclovir 800 mg tablet 800 mg PO DAILY difluprednate 0.05 % drops 1 drp OPHTHALMIC Q OTHER DAY Patient Comments: INSTILL 1 DROP INTO LEFT EYE THREE TIMES A WEEK timolol maleate 0.5 % drops 1 drp ophthalmic (eye) BID Rx Instructions: left eye Eye Health Plus Lutein 300 mcg-200 mg-27 mg-2 mg tablet 1 tab PO BID Farxiga 10 mg tablet 10 mg PO DAILY Qty: 90 3RF Eliquis 5 mg tablet 5 mg PO BID Qty: 180 3RF atorvastatin 20 mg tablet 20 mg PO QHS Qty: 90 3RF Entresto 24-26 mg tablet 1 tab PO BID Qty: 180 3RF Hold Instructions: hypotension omeprazole 40 MG capsule,delayed release(DR/EC) 40 mg PO DAILY Patient Comments: erythromycin 1 APPLIC ointment 1 applic LEFT EYE QHS Patient Comments: left eye aspirin 81 MG tablet,chewable 81 mg PO DAILY@0800 meclizine 25 MG tablet 25 mg PO TID PRN PRN (Reason: Dizziness) cholecalciferol (vitamin D3) [Vitamin D3] 50 mcg (2,000 unit) tablet 2,000 unit PO DAILY metoprolol succinate 25 mg tablet extended release 24 hr 25 mg PO BID Qty: 180 3RF furosemide 20 mg tablet 40 mg PO DAILY Qty: 90 3RF potassium chloride 20 mEq tablet extended release 20 meq PO DAILY Qty: 90 3RF Referrals / Follow Up: Luiz Avery MD [Primary Care Provider] - Within 1 Week Мария Eubanks PA [Med Staff - Adv Practice Prof] - Within 1 Month Disposition Disposition (needs filled in before D/C Order can be placed): Home, Self Care Charges/Coding Visit Charges Inpatient E&M: 08342 Disch Hosp >30min
== END 2023-03-19 19:15 | disposition home or self-care (01) | DRG 291 ==
LOC: ED 17:45 → PCU 20:40
PROVIDERS: Admitting Provider Family Medicine; Emergency Provider Emergency Medicine; PCP Family Medicine; Visit Provider Family Medicine
DX: I13.0 Hypertensive heart and chronic kidney disease with heart failure and stage 1 through stage 4 chronic kidney disease, or unspecified chronic kidney disease (principal); I50.23 Acute on chronic systolic (congestive) heart failure; I48.92 Unspecified atrial flutter; I44.1 Atrioventricular block, second degree; J84.10 Pulmonary fibrosis, unspecified; Z79.01 Long term (current) use of anticoagulants; N18.30 Chronic kidney disease, stage 3 unspecified; I48.0 Paroxysmal atrial fibrillation; I08.1 Rheumatic disorders of both mitral and tricuspid valves; E87.6 Hypokalemia; K21.9 Gastro-esophageal reflux disease without esophagitis; E78.5 Hyperlipidemia, unspecified; I25.5 Ischemic cardiomyopathy; I25.10 Atherosclerotic heart disease of native coronary artery without angina pectoris; I25.2 Old myocardial infarction; Z23 Encounter for immunization; Z79.82 Long term (current) use of aspirin; Z87.891 Personal history of nicotine dependence; Z95.0 Presence of cardiac pacemaker; Z95.1 Presence of aortocoronary bypass graft; Z95.5 Presence of coronary angioplasty implant and graft
CPT/HCPCS: 36415; 71046; 80048; 80053; 80061; 81001; 83735; 83880; 84436; 84443; 84484; 85025; 87086; 93005; 93306; 94668; 97161; 97165; 97802; 99285; Q9957; 90662; A4216; C8929; J1940

== ENCOUNTER → 2023-05-01 | Outpatient (CLI) | payer MEDICARE, SELFPAY ==
[2023-05-01 15:46] LABS: BNP,B-Type NATRIURETIC PEPTIDE 2581.7 pg/mL (0-100)
== END | disposition home or self-care (01) ==
LOC: LAB 14:13
PROVIDERS: PCP Family Medicine; Referring Provider Physician Assistant Medical; Visit Provider Physician Assistant Medical
DX: R06.00 Dyspnea, unspecified (principal)
CPT/HCPCS: 36415; 83880

== ENCOUNTER 2023-06-12 14:46 | Inpatient (IN) | payer MEDICARE, SELFPAY ==
[2023-06-12] VITALS (73 sets, daily range): BP systolic 68–137; BP diastolic 21–105; PULSE 78–89; RESP 11–35; TEMP 36.1–36.7; O2SAT 95–100; BMI 27.0; BMI 29.6
--- NOTE | 2023-06-12 15:18 | ED.RN ---
THIS RN NOTIFIED ALL 3 PHYSICIANS OF PTS BP AND NEED FOR PHYSICAL ASSESSMENT
--- NOTE | 2023-06-12 15:28 | EKG12_ITS ---
Test Reason : WEAKNESS Blood Pressure : / mmHG Vent. Rate : 086 BPM Atrial Rate : 086 BPM P-R Int : 228 ms QRS Dur : 162 ms QT Int : 444 ms P-R-T Axes : 010 -49 106 degrees QTc Int : 531 ms Atrial-sensed ventricular-paced rhythm with prolonged AV conduction Abnormal ECG Confirmed by Jovi Lazcano ([id number]), film editor MICHA PIERCE ([id number]) on 06/13/2023 10:59:49 AM Referred By: PL Confirmed By:Jovi Lazcano
[2023-06-12] MEDS: 0.9% Normal Saline (1000mL) 1,000 ML 1000 ML IV (15:30)
--- NOTE | 2023-06-12 15:30 | EDS_ITS ---
HPI History of Present Illness Chief Complaint: Weakness Informant: patient and family Narrative Narrative: Patient is here because she does not feel well. Patient states that she got up this morning for breakfast and ate and felt okay. She took her Entresto and Lasix which are new meds that were just restarted at 10 AM. At 12 AM she got up and she was very dizzy. She denies falling or hurting herself. But her blood pressure is quite low. When specifically asked she admits that for the last 3 or so days she has had black and bloody bowel movements. She is on Eliquis. She is not having abdominal pain. She has no pain in any area. [facility] Medical History Acute kidney injury Anxiety Atherosclerosis of coronary artery of [place] heart without angina pectoris Chronic anemia Essential (primary) hypertension Fractured sternum HFrEF (heart failure with reduced ejection fraction) History of ST elevation myocardial infarction (STEMI) (11/16/18) History of vertigo Ischemic cardiomyopathy Mobitz (type) II atrioventricular block Non-ischemic cardiomyopathy 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) Home Medications aspirin 81 mg chewable tablet 81 mg PO DAILY@0800 circulation 12/08/16 [History Last Taken 06/12/23] erythromycin 5 mg/gram (0.5 %) eye ointment 1 applic LEFT EYE Q eye health 12/08/16 [History Last Taken 06/09/23] omeprazole 40 mg capsule,delayed release 40 mg PO DAILY acid reflux 12/08/16 [History Last Taken 06/12/23] acyclovir 800 mg tablet 800 mg PO DAILY SHINGLES 09/11/19 [History Last Taken 06/12/23] difluprednate 0.05 % eye drops 1 drp ophthalmic (eye) Q OTHER DAY 05/13/20 [History Last Taken 06/10/23] timolol maleate 0.5 % eye drops 1 drp ophthalmic (eye) BID 02/14/22 [History Last Taken 06/11/23] vit A 300 mcg-C 200 mg-E 27 mg-lutein 2 mg and minerals tablet (Eye Health Plus Lutein) 1 tab PO BID 02/14/22 [History Last Taken Unknown] dapagliflozin propanediol 10 mg tablet (Farga) 10 mg PO DAILY #90 tabs 09/19/22 [Rx Last Taken 06/12/23] apixaban 5 mg tablet (Eliquis) 5 mg PO BID #180 tabs 02/09/23 [Rx Last Taken 06/12/23] atorvastatin 20 mg tablet 20 mg PO QHS #90 tabs 02/09/23 [Rx Last Taken 06/11/23] carvedilol 3.125 mg tablet (Coreg) 3.125 mg PO BID #180 tabs 05/16/23 [Rx Last Taken 06/12/23] digoxin 125 mcg (0.125 mg) tablet 125 mcg PO .COMPLEX #60 tabs 05/16/23 [Rx Last Taken 06/11/23] furosemide 20 mg tablet 10 mg (1/2 x 20 mg) PO DAILY #45 tabs 06/11/23 [Rx Last Taken 06/12/23] sacubitril 24 mg-valsartan 26 mg tablet (Entresto) 1 tab PO BID 06/11/23 [History Last Taken 06/12/23] naproxen sodium 220 mg capsule 220 mg PO BID PRN pain 06/12/23 [History Last Taken 06/12/23] propylene glycol 0.6 % eye drops (Lubricant Eye (propylene glycol)) 1 drp EACH EYE DAILY PRN DRY EYE 06/12/23 [History Last Taken Unknown] vit C 250 mg-vit E 90 mg-zinc 40 mg-copper 1 [id number] capsule (PreserVision AREDS-2) 1 tab PO BID 06/12/23 [History Last Taken 06/12/23] Allergy/AdvReac Type Severity Reaction Status Date / Time morphine Allergy Vomiting Verified 05/16/23 12:56 sacubitril [From Entresto] AdvReac Intermediate Hypotension Verified 06/05/23 16:15 on lowest dose valsartan [From Entresto] AdvReac Intermediate Hypotension Verified 06/05/23 16:15 on lowest dose Family History Father Heart disease Mother Heart disease Chronic anemia Iron deficiency Surgical History History of coronary artery stent placement (12/19/18) History of left heart catheterization (06/21/20) Presence of permanent cardiac pacemaker (08/02/18) S/P CABG x 2 S/P mitral valve repair Social History household members: none Smoking Status: Former smoker how long ago did patient quit smoking: Quit in 1967. alcohol intake: never substance use type: does not use caffeine: Yes Type: coffee Number of servings: 2 ROS ROS ED ROS Narrative A complete review of systems was performed and is negative except as documented in the history of present illness. Some specific details below. Constitutional: No recent fevers or chills. She does have a general malaise and generalized weakness feeling. EYE: No visual complaints or pain. ENT: No difficulty swallowing. No swelling. No pain. No GERD. No vomiting. CV: No chest pain or palpitations. She has been near syncopal. Respiratory: No dyspnea. No hemoptysis. No difficulty taking breaths. GI: Please see history of present illness. But no pain. : No frequency dysuria or hematuria. Musculoskeletal: No recent trauma. No pains. Skin: No rash. Nondiaphoretic. Neuro: No focal or lateralizing weakness or numbness. Endocrine: No polyuria or polydipsia. EXAM Physical Exam Narrative Exam Narrative: CONSTITUTIONAL: Patient is pale in appearance. She does tell me the story clearly but is very slow with speech. But it is crystal-clear and there is no dysarthria or aphasia. HEENT: No notable trauma. Mucous membranes mildly dry. No sinus tenderness. No indication of pain with swallowing. EYES: No conjunctival injection. She does have very pale conjunctiva. CARDIOVASCULAR: Regular rate. Regular rhythm. No notable murmur. No JVD. Patient's not tachycardic but she is also on digoxin and carvedilol and timolol eyedrops. RESPIRATORY: No respiratory distress. Breathing is unlabored. No rales are heard and her saturations are 100% on room air showing no hypoxia. GASTROINTESTINAL: Not distended. Bowel sounds are normal. No tenderness. No guarding. No rebound. No palpable mass. No bruit. GENITOURINARY: No tenderness over the bladder. MUSCULOSKELETAL: Atraumatic. She does have pallor of palms. NEUROLOGICAL: Patient is alert and appropriate. No focal deficit noted. SKIN: She has pallor but no noted rashes. No diaphoresis. PSYCHIATRIC: Patient is calm. Mood is appropriate. Const Vital Signs: 06/12/23 14:51 06/12/23 15:01 06/12/23 15:09 Temperature 97.2 F L Temperature Source Temporal Pulse Rate 83 Respiratory Rate 24 H Respiratory Pattern Normal Blood Pressure 137/105 H 78/44 L Blood Pressure Mean 115 55 Blood Pressure Source Blood Pressure Position Blood Pressure Location Pulse Ox 100 Oxygen Delivery Method Room Air 06/12/23 15:22 06/12/23 15:45 06/12/23 16:00 Temperature Temperature Source Pulse Rate 88 80 Respiratory Rate 21 H 19 H Respiratory Pattern Blood Pressure 87/54 L 123/96 H 83/49 L Blood Pressure Mean 65 105 60 Blood Pressure Source Blood Pressure Position Blood Pressure Location Pulse Ox 100 98 Oxygen Delivery Method Room Air Room Air 06/12/23 16:31 06/12/23 17:18 06/12/23 17:33 Temperature 97.8 F 98.0 F Temperature Source Oral Oral Pulse Rate 86 85 88 Respiratory Rate 25 H 22 H 17 Respiratory Pattern Blood Pressure 83/40 L 74/49 L 75/57 L Blood Pressure Mean 54 57 63 Blood Pressure Source Monitor Blood Pressure Position Semi-Fowlers Blood Pressure Location Right Arm Pulse Ox 100 97 98 Oxygen Delivery Method Room Air Room Air Room Air 06/12/23 18:16 06/12/23 19:32 06/12/23 19:32 Temperature 97.9 F 97.9 F Temperature Source Temporal Temporal Pulse Rate 85 82 82 Respiratory Rate 18 17 17 Respiratory Pattern Blood Pressure 75/47 L 82/40 L 82/40 L Blood Pressure Mean 56 54 54 Blood Pressure Source Monitor Monitor Blood Pressure Position Semi-Fowlers Semi-Fowlers Blood Pressure Location Left Arm Left Arm Pulse Ox 96 97 97 Oxygen Delivery Method Room Air Room Air 06/12/23 19:47 06/12/23 15:04 06/12/23 15:06 Temperature 97.4 F L Temperature Source Temporal Pulse Rate 83 78 84 Respiratory Rate 20 H 14 15 Respiratory Pattern Blood Pressure 82/40 L 78/44 L Blood Pressure Mean 54 55 Blood Pressure Source Monitor Blood Pressure Position Semi-Fowlers Blood Pressure Location Left Arm Pulse Ox 97 Oxygen Delivery Method Room Air 06/12/23 15:10 06/12/23 15:15 06/12/23 15:20 Temperature Temperature Source Pulse Rate 83 86 87 Respiratory Rate 24 H 21 H 16 Respiratory Pattern Blood Pressure 87/54 L Blood Pressure Mean 60 Blood Pressure Source Blood Pressure Position Blood Pressure Location Pulse Ox Oxygen Delivery Method 06/12/23 15:24 06/12/23 15:31 06/12/23 15:32 Temperature Temperature Source Pulse Rate 87 84 Respiratory Rate 20 H 21 H Respiratory Pattern Blood Pressure 71/37 L 99/82 H Blood Pressure Mean 49 89 Blood Pressure Source Blood Pressure Position Blood Pressure Location Pulse Ox Oxygen Delivery Method 06/12/23 15:40 06/12/23 15:45 06/12/23 15:50 Temperature Temperature Source Pulse Rate 88 85 83 Respiratory Rate 23 H 29 H 27 H Respiratory Pattern Blood Pressure 123/96 H Blood Pressure Mean 105 Blood Pressure Source Blood Pressure Position Blood Pressure Location Pulse Ox Oxygen Delivery Method 06/12/23 16:00 06/12/23 16:10 06/12/23 16:15 Temperature Temperature Source Pulse Rate 81 83 83 Respiratory Rate 17 11 L 20 H Respiratory Pattern Blood Pressure 83/49 L 68/36 L Blood Pressure Mean 60 48 Blood Pressure Source Blood Pressure Position Blood Pressure Location Pulse Ox Oxygen Delivery Method 06/12/23 16:20 06/12/23 16:30 06/12/23 16:40 Temperature Temperature Source Pulse Rate 85 87 87 Respiratory Rate 21 H 19 H 21 H Respiratory Pattern Blood Pressure 72/21 L 83/40 L 72/39 L Blood Pressure Mean 36 53 51 Blood Pressure Source Blood Pressure Position Blood Pressure Location Pulse Ox Oxygen Delivery Method 06/12/23 16:50 06/12/23 17:00 06/12/23 17:10 Temperature Temperature Source Pulse Rate 87 87 85 Respiratory Rate 18 26 H 18 Respiratory Pattern Blood Pressure 75/38 L 72/50 L 74/49 L Blood Pressure Mean 51 59 56 Blood Pressure Source Blood Pressure Position Blood Pressure Location Pulse Ox Oxygen Delivery Method 06/12/23 17:20 06/12/23 17:25 06/12/23 17:30 Temperature Temperature Source Pulse Rate 86 86 89 Respiratory Rate 26 H 19 H 22 H Respiratory Pattern Blood Pressure 70/41 L 75/57 L Blood Pressure Mean 50 64 Blood Pressure Source Blood Pressure Position Blood Pressure Location Pulse Ox Oxygen Delivery Method 06/12/23 17:40 06/12/23 17:50 06/12/23 18:00 Temperature Temperature Source Pulse Rate 88 85 85 Respiratory Rate 24 H 18 24 H Respiratory Pattern Blood Pressure 75/47 L Blood Pressure Mean 54 Blood Pressure Source Blood Pressure Position Blood Pressure Location Pulse Ox Oxygen Delivery Method 06/12/23 18:10 06/12/23 18:12 06/12/23 18:14 Temperature Temperature Source Pulse Rate 82 84 87 Respiratory Rate 19 H 23 H 17 Respiratory Pattern Blood Pressure 70/34 L 78/44 L Blood Pressure Mean 43 55 Blood Pressure Source Blood Pressure Position Blood Pressure Location Pulse Ox Oxygen Delivery Method 06/12/23 18:20 06/12/23 18:30 06/12/23 18:40 Temperature Temperature Source Pulse Rate 85 84 88 Respiratory Rate 20 H 21 H 15 Respiratory Pattern Blood Pressure 76/45 L Blood Pressure Mean 56 Blood Pressure Source Blood Pressure Position Blood Pressure Location Pulse Ox Oxygen Delivery Method 06/12/23 18:50 06/12/23 19:00 06/12/23 19:10 Temperature Temperature Source Pulse Rate 87 88 89 Respiratory Rate 24 H 18 24 H Respiratory Pattern Blood Pressure 72/47 L Blood Pressure Mean 55 Blood Pressure Source Blood Pressure Position Blood Pressure Location Pulse Ox Oxygen Delivery Method 06/12/23 19:20 06/12/23 19:23 06/12/23 19:24 Temperature Temperature Source Pulse Rate 85 88 84 Respiratory Rate 19 H 22 H 12 Respiratory Pattern Blood Pressure 76/46 L 84/43 L Blood Pressure Mean 55 56 Blood Pressure Source Blood Pressure Position Blood Pressure Location Pulse Ox Oxygen Delivery Method 06/12/23 19:30 06/12/23 19:40 06/12/23 19:50 Temperature Temperature Source Pulse Rate 83 85 83 Respiratory Rate 19 H 17 17 Respiratory Pattern Blood Pressure 82/40 L Blood Pressure Mean 53 Blood Pressure Source Blood Pressure Position Blood Pressure Location Pulse Ox Oxygen Delivery Method 06/12/23 20:00 06/12/23 20:10 06/12/23 20:20 Temperature Temperature Source Pulse Rate 81 88 86 Respiratory Rate 20 H 18 26 H Respiratory Pattern Blood Pressure 81/44 L Blood Pressure Mean 57 Blood Pressure Source Blood Pressure Position Blood Pressure Location Pulse Ox Oxygen Delivery Method 06/12/23 20:30 Temperature Temperature Source Pulse Rate 89 Respiratory Rate 20 H Respiratory Pattern Blood Pressure 86/49 L Blood Pressure Mean 60 Blood Pressure Source Blood Pressure Position Blood Pressure Location Pulse Ox Oxygen Delivery Method MDM MDM MDM Narrative Medical decision making narrative: Patient CBC shows hemoglobin markedly low at 5.8 but preserved platelets and white count. Electrolytes show mild bump in BUN/creatinine she was given IV fluids here. This initially helped her pressure pending blood. Lactate was mildly up at 2.5. LFTs were normal. Digoxin level was slightly low. INR and PTT were normal She was given blood here. Her blood pressure is low at about 86/50. But when you look back on prior blood pressure it looks like her baseline is about 95-99 systolic. This is likely due to cardiomyopathy with an ejection fraction of 10 to 15%. This is likely why she was on Entresto and Lasix and trying to control her symptoms. Patient actually looks markedly better. She states she is not having pain or dyspnea. She is awake alert appropriate. Her color is better. She has not had a single bowel movement here. But with her her multiple bloody bowel movements over the weekend, low blood pressure, coagulopathy, cardiomyopathy I think ICU is appropriate for this lady as she is not completely stable at this point. Lab Data Attestation: I reviewed the patient's lab results. Labs: Laboratory Results - last 24 hr 06/12/23 15:35 WBC 11.0 RBC 1.92 L Hgb 5.8 L* Hct 18.0 L MCV 93.8 MCH 30.2 MCHC 32.2 RDW Std Deviation 53.3 H RDW Coeff of Sakina 15.8 H Plt Count 217 MPV 10.5 Immature Gran % (Auto) 0.300 Neut % (Auto) 76.3 H Lymph % (Auto) 13.5 L Knott % (Auto) 7.7 Eos % (Auto) 1.9 Baso % (Auto) 0.3 Absolute Neuts (auto) 8.4 H Absolute Lymphs (auto) 1.48 Nucleated RBC % 0 Diff Path Review May foll Platelet Estimate ADEQUATE RBC Morphology N CHROM Polychromasia RARE Hypochromasia 2+ Anisocytosis RARE Macrocytosis 1+ Ovalocytes RARE PT 22.2 H INR 1.9 APTT 35.3 Sodium 136 Potassium 3.7 Chloride 104 Carbon Dioxide 23.0 Anion Gap 9 BUN 35 H Creatinine 1.43 H Estim Creat Clear Calc 27.35 Est GFR (MDRD) Af Amer 45 L Est GFR (MDRD) Non-Af 37 L BUN/Creatinine Ratio 24.5 H Glucose 118 H Lactic Acid 2.5 H* Calcium 7.9 L Total Bilirubin 0.50 AST 17 ALT 9 L Alkaline Phosphatase 88 Total Protein 5.6 L Albumin 2.7 L Globulin 2.9 Albumin/Globulin Ratio 0.9 Lipase 45 Digoxin 0.66 L Blood Type O POSITIVE Antibody Screen NEGATIVE Crossmatch See Detail EKG Initial EKG: Comments: EKG shows paced rhythm with a rate of 86. Diffuse ST changes related to pacing. Critical Care Time Critical Care Time: Yes Critical care time (excluding procedures): 30-74 minutes, Including time spent:, Discussing w/Patient &/or Family/Financial Reporting Accountant, Discussing w/Consultants, Arranging Admission or Transfer, Performing Direct Patient Care at Bedside and - (55 minutes, multiple rechecks, adding blood, consultants, documentation chart review) Discharge Plan Triage Chief Complaint: Weakness ED Provider: Tino Lewis Dx/Rx/DC Orders Clinical Impression: Medication induced coagulopathy, GI bleed, Anemia, Hypotension Prescriptions: No Action acyclovir 800 mg tablet 800 mg PO DAILY difluprednate 0.05 % drops 1 drp OPHTHALMIC Q OTHER DAY timolol maleate 0.5 % drops 1 drp ophthalmic (eye) BID Patient Comments: PT STATES SHE ONLY TAKES ON DAYS SHE DOESNT USE THE DUREZOL Rx Instructions: left eye Eye Health Plus Lutein 300 mcg-200 mg-27 mg-2 mg tablet 1 tab PO BID Farxiga 10 mg tablet 10 mg PO DAILY Qty: 90 3RF Eliquis 5 mg tablet 5 mg PO BID Qty: 180 3RF atorvastatin 20 mg tablet 20 mg PO QHS Qty: 90 3RF carvedilol [Coreg] 3.125 mg tablet 3.125 mg PO BID Qty: 180 3RF Rx Instructions: must administer with a meal/food digoxin 125 mcg (0.125 mg) tablet 125 mcg PO .COMPLEX Qty: 60 3RF Rx Instructions: 125 mcg orally M/W/F; omeprazole 40 MG capsule,delayed release(DR/EC) 40 mg PO DAILY Patient Comments: erythromycin 1 APPLIC ointment 1 applic LEFT EYE QHS Patient Comments: left eye aspirin 81 MG tablet,chewable 81 mg PO DAILY@0800 Lubricant Eye (propyl glycol) 0.6 % drops 1 drp EACH EYE DAILY PRN (Reason: DRY EYE) naproxen sodium 220 mg capsule 220 mg PO BID PRN (Reason: pain) PreserVision AREDS-2 250-90-40-1 mg capsule 1 tab PO BID Entresto 24-26 mg tablet 1 tab PO BID furosemide 20 mg tablet 10 mg PO DAILY Qty: 45 3RF Primary Care Provider: Luiz Avery Referrals: Luiz Avery MD [Primary Care Provider] - Disposition Disposition: Acute Care Hospital [facility]
[2023-06-12 15:59] LABS: Absolute Lymphocyte Count 1.48 X10^3/uL (0.83-4.51); Absolute Neutrophil Count 8.4 X10^3/uL (2.0-7.7); Basophil# 0.03 X10^3/uL; Basophil% 0.3 % (0-1); Eosinophil# 0.21 X10^3/uL; Eosinophils% 1.9 % (0-5); Lymphocyte # 1.48 X10^3/ul (0.83-4.51); Lymphocyte % 13.5 % (19-41); Mean Corp Hgb Conc 32.2 g/dL (32-36); Mean Corpuscular Hgb 30.2 pg (27.0-32.0); Mean Corpuscular Volume 93.8 fL (81-99); Mean Platelet Vol. 10.5 fl (6.2-12.0); Monocyte# 0.85 X10^3/uL; Monocyte% 7.7 % (0-10); NRBC Flagged by Analyzer 0 % (0-5); Neutrophil # 8.37 X10^3/uL (2.7-7.7); Neutrophil % 76.3 % (47-70); POSITIVE COUNT YES; Platelet Count 217 K/mm3 (150-450); RBC Distribution Width CV 15.8 % (11.6-14.6); RBC Distribution Width SD 53.3 fl (35.1-43.9); Red Blood Count 1.92 M/mm3 (4.2-5.4)
[2023-06-12 16:05] LABS: International Normalized Ratio 1.9; Prothrombin Time (Protime)PT. 22.2 SECONDS (11.7-14.9)
[2023-06-12 16:06] LABS: Partial Thromboplast Time 35.3 Seconds (24.1-36.2)
[2023-06-12 16:21] LABS: ALB/GLOB Ratio 0.9 RATIO (0.9-2.4); AST(SGOT) 17 U/L (15-37); Alanine Aminotransfer ALT/SGPT 9 U/L (13-56); Albumin, Serum 2.7 g/dL (3.2-5.0); Alkaline Phosphatase 88 U/L (45-117); Anion Gap 9 (5-15); BUN 35 mg/dL (7-18); BUN/Creat Ratio 24.5 RATIO (10-20); Calcium,Total 7.9 mg/dL (8.5-10.1); Chloride 104 mmol/L (98-107); Creatinine, Serum 1.43 mg/dL (0.55-1.02); EST Glomerular Filtration Rate 37 mL/min (>60); Est Glom Filt Rate - Afr Amer 45 mL/min (>60); Estimated Creatinine Clearance 27.35 ml/min; Globulin 2.9 g/dL (2.2-4.2); Glucose 118 mg/dL (74-106); Lipase 45 U/L (13-75); Potassium 3.7 mmol/L (3.5-5.1); Protein, Total 5.6 g/dL (6.4-8.2); Sodium Level 136 mmol/L (136-145)
[2023-06-12 16:23] LABS: Lactic Acid 2.5 mmol/L (0.4-1.9)
[2023-06-12 16:31] LABS: Differential Indicated SCAN CRITERIA MET; Hemoglobin 5.8 g/dL (12.0-15.0)
[2023-06-12 16:39] LABS: Digoxin Level 0.66 ng/mL (0.80-2.00)
[2023-06-12 16:40] LABS: Anisocytosis RARE; Hypochromasia 2+; Macrocytosis 1+; Ovalocyte RARE; Platelet Estimate ADEQUATE (ADEQ); Polychromasia RARE; Red Cell Morphology N CHROM NORMAL (NORM C&C)
[2023-06-12 19:50] LABS: Reflex Lactate? Y
--- NOTE | 2023-06-12 22:03 | PCM.HP.STD ---
[facility] - General General Date of Admission: 06/12/23 Date of Service: 06/12/23 Chief Complaint: GI Bleeding. [facility] Narrative SOHAIL ALCARAZ, is a 83 F with a past medical history of essential hypertension, chronic anemia, CAD; s/p OR with subsequent stents, CAD; s/p CABG x2, chronic systolic and diastolic CHF; with LVEF ~15% on Eliquis, history of Mobitz-II AV-block; s/p PPM, history of pulmonary fibrosis, history of vertigo, generalized anxiety and OA who presents to [facility] ER complaining of GI bleeding. Ms. Alcaraz reports her symptoms began approximately 5 days prior to admission with very dark stools that turned the water red in the toilet. She then continued to take her Eliquis and Entestro plus her Lasix with worsening dizziness with standing, generalized weakness and malaise with her blood pressure dropping to the ~80 mmHg systolic range. Then earlier today she fell when she was trying to walk across a room and she finally decided to come in for further evaluation and treatment. She denies associated fever, chills, nausea, vomiting, abdominal pain or chest pain. She admits to a remote history of colonoscopy but she denies a history of previous EGD. In the ER she was noted to have severe acute blood loss anemia requiring transfusion with a hemoglobin of 5.8 g/dL present on admission likely due to suspected PUD complicated by an adverse drug reaction to Eliquis and Entestro and she was then admitted to the ICU for ongoing care for a stay that is expected to be greater than 48 hours. 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) Home Medications aspirin 81 mg chewable tablet 81 mg PO DAILY@0800 circulation 12/08/16 [History Last Taken 06/12/23] erythromycin 5 mg/gram (0.5 %) eye ointment 1 applic LEFT EYE [facility] eye health 12/08/16 [History Last Taken 06/09/23] omeprazole 40 mg capsule,delayed release 40 mg PO DAILY acid reflux 12/08/16 [History Last Taken 06/12/23] acyclovir 800 mg tablet 800 mg PO DAILY SHINGLES 09/11/19 [History Last Taken 06/12/23] difluprednate 0.05 % eye drops 1 drp ophthalmic (eye) Q OTHER DAY 05/13/20 [History Last Taken 06/10/23] timolol maleate 0.5 % eye drops 1 drp ophthalmic (eye) BID 02/14/22 [History Last Taken 06/11/23] vit A 300 mcg-C 200 mg-E 27 mg-lutein 2 mg and minerals tablet (Eye Health Plus Lutein) 1 tab PO BID 02/14/22 [History Last Taken Unknown] dapagliflozin propanediol 10 mg tablet (Farxiga) 10 mg PO DAILY #90 tabs 09/19/22 [Rx Last Taken 06/12/23] apixaban 5 mg tablet (Eliquis) 5 mg PO BID #180 tabs 02/09/23 [Rx Last Taken 06/12/23] atorvastatin 20 mg tablet 20 mg PO QHS #90 tabs 02/09/23 [Rx Last Taken 06/11/23] carvedilol 3.125 mg tablet (Coreg) 3.125 mg PO BID #180 tabs 05/16/23 [Rx Last Taken 06/12/23] digoxin 125 mcg (0.125 mg) tablet 125 mcg PO .COMPLEX #60 tabs 05/16/23 [Rx Last Taken 06/11/23] furosemide 20 mg tablet 10 mg (1/2 x 20 mg) PO DAILY #45 tabs 06/11/23 [Rx Last Taken 06/12/23] sacubitril 24 mg-valsartan 26 mg tablet (Entresto) 1 tab PO BID 06/11/23 [History Last Taken 06/12/23] naproxen sodium 220 mg capsule 220 mg PO BID PRN pain 06/12/23 [History Last Taken 06/12/23] propylene glycol 0.6 % eye drops (Lubricant Eye (propylene glycol)) 1 drp EACH EYE DAILY PRN DRY EYE 06/12/23 [History Last Taken Unknown] vit C 250 mg-vit E 90 mg-zinc 40 mg-copper 1 [id number] capsule (PreserVision AREDS-2) 1 tab PO BID 06/12/23 [History Last Taken 06/12/23] Allergy/AdvReac Type Severity Reaction Status Date / Time morphine Allergy Vomiting Verified 05/16/23 12:56 sacubitril [From Entresto] AdvReac Intermediate Hypotension Verified 06/05/23 16:15 on lowest dose valsartan [From Entresto] AdvReac Intermediate Hypotension Verified 06/05/23 16:15 on lowest dose Family History Father Heart disease Mother Heart disease Chronic anemia Iron deficiency Surgical History History of coronary artery stent placement (12/19/18) History of left heart catheterization (06/21/20) Presence of permanent cardiac pacemaker (08/02/18) S/P CABG x 2 S/P mitral valve repair Social History household members: none Smoking Status: Former smoker how long ago did patient quit smoking: Quit in 1967. alcohol intake: never substance use type: does not use caffeine: Yes Type: coffee Number of servings: 2 ROS ROS Narrative Review of systems: Constitutional: No recent fevers or chills. She does have a general malaise and generalized weakness. EYE: No visual complaints or pain. ENT: No difficulty swallowing, runny nose or sore throat. CV: No chest pain or palpitations but she has been near syncopal. Respiratory: No dyspnea or difficulty taking breaths. GI: Positive for blood in stools as noted above in HPI. : No frequency, dysuria or hematuria reported. Musculoskeletal: No recent trauma or pain. Skin: No rash or abscess. Neuro: No focal or lateralizing weakness or numbness. Endocrine: No polyuria, polydipsia or polyphagia. 14 point ROS otherwise negative except for positives noted above in HPI. Vital Signs Vital Signs Vital Signs: 06/12/23 14:51 06/12/23 15:01 06/12/23 15:09 Temperature 97.2 F L Temperature Source Temporal Pulse Rate 83 Respiratory Rate 24 H Respiratory Pattern Normal Blood Pressure 137/105 H 78/44 L Blood Pressure Mean 115 55 Blood Pressure Source Blood Pressure Position Blood Pressure Location Pulse Ox 100 Oxygen Delivery Method Room Air 06/12/23 15:22 06/12/23 15:45 06/12/23 16:00 Temperature Temperature Source Pulse Rate 88 80 Respiratory Rate 21 H 19 H Respiratory Pattern Blood Pressure 87/54 L 123/96 H 83/49 L Blood Pressure Mean 65 105 60 Blood Pressure Source Blood Pressure Position Blood Pressure Location Pulse Ox 100 98 Oxygen Delivery Method Room Air Room Air 06/12/23 16:31 06/12/23 17:18 06/12/23 17:33 Temperature 97.8 F 98.0 F Temperature Source Oral Oral Pulse Rate 86 85 88 Respiratory Rate 25 H 22 H 17 Respiratory Pattern Blood Pressure 83/40 L 74/49 L 75/57 L Blood Pressure Mean 54 57 63 Blood Pressure Source Monitor Blood Pressure Position Semi-Fowlers Blood Pressure Location Right Arm Pulse Ox 100 97 98 Oxygen Delivery Method Room Air Room Air Room Air 06/12/23 18:16 06/12/23 19:32 06/12/23 19:32 Temperature 97.9 F 97.9 F Temperature Source Temporal Temporal Pulse Rate 85 82 82 Respiratory Rate 18 17 17 Respiratory Pattern Blood Pressure 75/47 L 82/40 L 82/40 L Blood Pressure Mean 56 54 54 Blood Pressure Source Monitor Monitor Blood Pressure Position Semi-Fowlers Semi-Fowlers Blood Pressure Location Left Arm Left Arm Pulse Ox 96 97 97 Oxygen Delivery Method Room Air Room Air 06/12/23 19:47 06/12/23 15:04 06/12/23 15:06 Temperature 97.4 F L Temperature Source Temporal Pulse Rate 83 78 84 Respiratory Rate 20 H 14 15 Respiratory Pattern Blood Pressure 82/40 L 78/44 L Blood Pressure Mean 54 55 Blood Pressure Source Monitor Blood Pressure Position Semi-Fowlers Blood Pressure Location Left Arm Pulse Ox 97 Oxygen Delivery Method Room Air 06/12/23 15:10 06/12/23 15:15 06/12/23 15:20 Temperature Temperature Source Pulse Rate 83 86 87 Respiratory Rate 24 H 21 H 16 Respiratory Pattern Blood Pressure 87/54 L Blood Pressure Mean 60 Blood Pressure Source Blood Pressure Position Blood Pressure Location Pulse Ox Oxygen Delivery Method 06/12/23 15:24 06/12/23 15:31 06/12/23 15:32 Temperature Temperature Source Pulse Rate 87 84 Respiratory Rate 20 H 21 H Respiratory Pattern Blood Pressure 71/37 L 99/82 H Blood Pressure Mean 49 89 Blood Pressure Source Blood Pressure Position Blood Pressure Location Pulse Ox Oxygen Delivery Method 06/12/23 15:40 06/12/23 15:45 06/12/23 15:50 Temperature Temperature Source Pulse Rate 88 85 83 Respiratory Rate 23 H 29 H 27 H Respiratory Pattern Blood Pressure 123/96 H Blood Pressure Mean 105 Blood Pressure Source Blood Pressure Position Blood Pressure Location Pulse Ox Oxygen Delivery Method 06/12/23 16:00 06/12/23 16:10 06/12/23 16:15 Temperature Temperature Source Pulse Rate 81 83 83 Respiratory Rate 17 11 L 20 H Respiratory Pattern Blood Pressure 83/49 L 68/36 L Blood Pressure Mean 60 48 Blood Pressure Source Blood Pressure Position Blood Pressure Location Pulse Ox Oxygen Delivery Method 06/12/23 16:20 06/12/23 16:30 06/12/23 16:40 Temperature Temperature Source Pulse Rate 85 87 87 Respiratory Rate 21 H 19 H 21 H Respiratory Pattern Blood Pressure 72/21 L 83/40 L 72/39 L Blood Pressure Mean 36 53 51 Blood Pressure Source Blood Pressure Position Blood Pressure Location Pulse Ox Oxygen Delivery Method 06/12/23 16:50 06/12/23 17:00 06/12/23 17:10 Temperature Temperature Source Pulse Rate 87 87 85 Respiratory Rate 18 26 H 18 Respiratory Pattern Blood Pressure 75/38 L 72/50 L 74/49 L Blood Pressure Mean 51 59 56 Blood Pressure Source Blood Pressure Position Blood Pressure Location Pulse Ox Oxygen Delivery Method 06/12/23 17:20 06/12/23 17:25 06/12/23 17:30 Temperature Temperature Source Pulse Rate 86 86 89 Respiratory Rate 26 H 19 H 22 H Respiratory Pattern Blood Pressure 70/41 L 75/57 L Blood Pressure Mean 50 64 Blood Pressure Source Blood Pressure Position Blood Pressure Location Pulse Ox Oxygen Delivery Method 06/12/23 17:40 06/12/23 17:50 06/12/23 18:00 Temperature Temperature Source Pulse Rate 88 85 85 Respiratory Rate 24 H 18 24 H Respiratory Pattern Blood Pressure 75/47 L Blood Pressure Mean 54 Blood Pressure Source Blood Pressure Position Blood Pressure Location Pulse Ox Oxygen Delivery Method 06/12/23 18:10 06/12/23 18:12 06/12/23 18:14 Temperature Temperature Source Pulse Rate 82 84 87 Respiratory Rate 19 H 23 H 17 Respiratory Pattern Blood Pressure 70/34 L 78/44 L Blood Pressure Mean 43 55 Blood Pressure Source Blood Pressure Position Blood Pressure Location Pulse Ox Oxygen Delivery Method 06/12/23 18:20 06/12/23 18:30 06/12/23 18:40 Temperature Temperature Source Pulse Rate 85 84 88 Respiratory Rate 20 H 21 H 15 Respiratory Pattern Blood Pressure 76/45 L Blood Pressure Mean 56 Blood Pressure Source Blood Pressure Position Blood Pressure Location Pulse Ox Oxygen Delivery Method 06/12/23 18:50 06/12/23 19:00 06/12/23 19:10 Temperature Temperature Source Pulse Rate 87 88 89 Respiratory Rate 24 H 18 24 H Respiratory Pattern Blood Pressure 72/47 L Blood Pressure Mean 55 Blood Pressure Source Blood Pressure Position Blood Pressure Location Pulse Ox Oxygen Delivery Method 06/12/23 19:20 06/12/23 19:23 06/12/23 19:24 Temperature Temperature Source Pulse Rate 85 88 84 Respiratory Rate 19 H 22 H 12 Respiratory Pattern Blood Pressure 76/46 L 84/43 L Blood Pressure Mean 55 56 Blood Pressure Source Blood Pressure Position Blood Pressure Location Pulse Ox Oxygen Delivery Method 06/12/23 19:30 06/12/23 19:40 06/12/23 19:50 Temperature Temperature Source Pulse Rate 83 85 83 Respiratory Rate 19 H 17 17 Respiratory Pattern Blood Pressure 82/40 L Blood Pressure Mean 53 Blood Pressure Source Blood Pressure Position Blood Pressure Location Pulse Ox Oxygen Delivery Method 06/12/23 20:00 06/12/23 20:10 06/12/23 20:20 Temperature Temperature Source Pulse Rate 81 88 86 Respiratory Rate 20 H 18 26 H Respiratory Pattern Blood Pressure 81/44 L Blood Pressure Mean 57 Blood Pressure Source Blood Pressure Position Blood Pressure Location Pulse Ox Oxygen Delivery Method 06/12/23 20:30 Temperature Temperature Source Pulse Rate 89 Respiratory Rate 20 H Respiratory Pattern Blood Pressure 86/49 L Blood Pressure Mean 60 Blood Pressure Source Blood Pressure Position Blood Pressure Location Pulse Ox Oxygen Delivery Method Weight Weight: 152 lb 12.485 oz Body Mass Index (BMI) 27.0 Physical Exam Const alert, oriented x3, no apparent distress, average body habitus and healthy appearing Constitutional Narrative: Pale in appearance. General Appearance: cooperative HEENT normocephalic, head/scalp atraumatic, hearing grossly normal bilaterally and moist oral mucous membranes Eyes PERRL and EOMs intact bilaterally Neck no lymphadenopathy and supple Resp normal respiratory effort, no retractions, no use of accessory muscles and clear to auscultation bilaterally Cardio regular rate and regular rhythm GI normal to inspection, nondistended, normoactive bowel sounds, soft to palpation, non-tender and non-distended Extremity normal to inspection and full ROM Skin Skin Narrative: No evidence of rash. Positive pallor. Neuro oriented x3, CN's II-XII intact bilaterally, moves all extremities and no focal motor deficits Sensorium / Orientation: awake, alert, oriented to person, oriented to place and oriented to time Speech: speech normal Motor Exam: strength 5/5 throughout Psych affect normal Results Medical Records Data Attestation: I reviewed the patient's medical records Lab / Micro Data Attestation: I reviewed the patient's lab results. 06/12/23 15:35 06/12/23 15:35 Labs: Laboratory Results - last 24 hr 06/12/23 15:35: WBC 11.0, RBC 1.92 L, Hgb 5.8 L*, Hct 18.0 L, MCV 93.8, MCH 30.2, MCHC 32.2, RDW Std Deviation 53.3 H, RDW Coeff of Sakina 15.8 H, Plt Count 217, MPV 10.5, Immature Gran % (Auto) 0.300, Neut % (Auto) 76.3 H, Lymph % (Auto) 13.5 L, [place] % (Auto) 7.7, Eos % (Auto) 1.9, Baso % (Auto) 0.3, Absolute Neuts (auto) 8.4 H, Absolute Lymphs (auto) 1.48, Nucleated RBC % 0, Diff Path Review August, Platelet Estimate ADEQUATE, RBC Morphology N CHROM, Polychromasia RARE, Hypochromasia 2+, Anisocytosis RARE, Macrocytosis 1+, Ovalocytes RARE, PT 22.2 H, INR 1.9, APTT 35.3, Sodium 136, Potassium 3.7, Chloride 104, Carbon Dioxide 23.0, Anion Gap 9, BUN 35 H, Creatinine 1.43 H, Estim Creat Clear Calc 27.35, Est GFR (MDRD) Af Amer 45 L, Est GFR (MDRD) Non-Af 37 L, BUN/Creatinine Ratio 24.5 H, Glucose 118 H, Lactic Acid 2.5 H*, Calcium 7.9 L, Total Bilirubin 0.50, AST 17, ALT 9 L, Alkaline Phosphatase 88, Total Protein 5.6 L, Albumin 2.7 L, Globulin 2.9, Albumin/Globulin Ratio 0.9, Lipase 45, Digoxin 0.66 L, Blood Type O POSITIVE, Antibody Screen NEGATIVE, Crossmatch See Detail 06/12/23 21:29: Lactic Acid 1.0 Assessment & Plan Assessment/Plan (1) GI bleed: QUALIFIERS: GI bleed type/associated pathology: melena Qualified Code(s): K92.1 - Melena (2) Medication induced coagulopathy: (3) Non-ischemic cardiomyopathy: (4) Anticoagulant long-term use: PLAN: Plan 1. Severe acute blood loss anemia requiring transfusion with a hemoglobin of 5.8 g/dL present on admission likely due to suspected PUD with melena - Admit to ICU. Continue to transfuse 2 units of PRBC's begun in the ER. Transfuse as necessary to keep hemoglobin > 7 g/dL. Continue IV Protonix drip and keep strict NPO. Finally, we will consult the vice president of customer service on-call to see this patient on-rounds in the AM for further recommendations with help appreciated in advance. 2. Adverse drug reaction to Eliquis and Entestro complicating #1 - Hold Eliquis and all scheduled antihypertensives until further notice. 3. Chronic systolic and diastolic CHF; with LVEF ~15% on Eliquis compounding #1 & #2 - Noted. Watch out for signs of CHF. 4. CAD; s/p OR with subsequent stents - Noted. 5. CAD; s/p CABG x2 - Noted. 6. History of Mobitz-II AV-block; s/p PPM - Noted. 7. History of pulmonary fibrosis - Noted. 8. History of vertigo - Give Antivert prn. 9. Generalized anxiety - Stable. 10. OA - Stable. 11. DVT prophylaxis - SCD's only with active GI bleeding. Total time: Approximately 55 minutes. Charges/Coding Visit Charges Inpatient E&M: 82850 Init Hosp L2
--- OUTSIDE RECORDS SUMMARY | 2023-06-12 22:09 | XMS RPT_ITS | CCD ---
Author Name Unknown Address [address] [place] [address] Organization [facility] Care Team Providers Care Assembler [employer] Name Role Phone Brissa, Derek S Unavailable Wil LANDRY.EXPLOSIVES HANDLER, DNP, Miles Primary Care Provider Magnus Bray MD Primary Care Provider Brissa, Derek S Unavailable Magnus Bray MD Primary Care Provider Brissa, [place] S Unavailable Magnus Brya MD Primary Care Provider Magnus Bray MD Primary Care Provider [phone] Brissa CHAPA, [place] S Unavailable MAGNUS BRAY Primary Care Unavailab QAMAR Reich Attending Unavailable MAGNUS BRAY Primary Care Unavailab MAGNUS Mullen Referring Unavailab MAGNUS Mullen Primary Care Unavailab MAGNUS Mullen Primary Care Unavailab MAGNUS Mullen Referring Unavailab MAGNUS Mullen Primary Care Unavailab MAGNUS Mullen Referring Unavailab MAGNUS Mullen Primary Care Unavailab MAGNUS Mullen Attending Unavailab RACHEL Adair Referring Unavailable MAGNUS BRAY Primary Care Unavailab MAGNUS Mullen Attending Unavailab MAGNUS Mullen Primary Care Unavailable AZIKEN, ASHLEY Admitting Unavailable SHARMILA CHAUDHARY Consulting Unavailable MAGNUS BRAY Primary Care Unavailable AZIKEN, ASHLEY Attending Unavailable [facility] Unavailable KINGA SHARPE Referring Unavailable NARA WORRELL Attending Unavailable AZIKEN, ASHLEY Attending Unavailable [facility] Unavailable AZIKEN, ASHLEY Referring Unavailable [facility] Unavailable AZIKEN, ASHLEY Attending Unavailable AZIKEN, ASHLEY Attending Unavailable [facility] Unavailable AZIKEN, ASHLEY Referring Unavailable AZIKEN, ASHLEY Attending Unavailable [facility] Unavailable GAY MAYBERRY Attending [facility]availChan [facility] Unavailable GAY MAYBERRY Attending UnavailChan [facility] Unavailable Allergies Allergy Classification Reported Allergen(s) Allergy Type Date of Onset Reaction(s) Facility (20 sources) Morphine; Translations: [MORPHINE] Drug Allergy 01-11-2017 GI Upset [facility] Medications Current Medications Medication Drug Class(es) Dates Sig (Normalized) Sig (Original) amoxicillin 875 mg / clavulanate 125 mg oral tablet (1 source) Penicillin-class Antibacterial Start: 05-11-2022 End: 05-16-2022 take 1 tablet by mouth twice daily amoxicillin-clav ulanic acid (AUGMENTIN) 875-125 mg per tablet Take 1 tablet by mouth twice daily for 5 days. 10 tablet 0 05/11/2022 05/16/2022 Active Completed/Discontinued Medications Medication Drug Class(es) Dates Sig (Normalized) Sig (Original) acetaminophen 500 mg oral tablet (9 sources) Start: 12-30-2022 End: 01-09-2023 take 2 tablets by mouth every eight hours acetaminophen (Tylenol) 500 MG tablet Take 2 tablets (1,000 mg) by mouth in the morning and 2 tablets (1,000 mg) at noon and 2 tablets (1,000 mg) before bedtime. Do all this for 14 days. 84 tablet 0 12/30/2022 01/09/2023 Discontinued (Therapy completed)
--- OUTSIDE RECORDS SUMMARY | 2023-06-12 23:03 | XMS RPT_ITS | CCD ---
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 Name Role Phone Brissa, Derek S Unavailable Wil LANDRY.SHELLFISH PROCESSING MACHINE TENDER, DNP, Miles Primary Care Provider Amalia Avery MD Primary Care Provider Brissa, [place] S Unavailable Amalia Avery MD Primary Care Provider Brissa, Derek S Unavailable Amalia Avery MD Primary Care Provider [phone] Amalia Avery MD Primary Care Provider [phone] Brissa CHAPA, Derek S Unavailable AMALIA AVERY Primary Care Unavailab SILVIA Reich Attending Unavailable AMALIA AVERY Primary Care Unavailab AMALIA Mullen Referring Unavailab AMALIA Mullen Primary Care Unavailab AMALIA Mullen Primary Care Unavailab AMALIA Mullen Referring Unavailab AMALIA Mullen Primary Care Unavailab AMALIA Mullen Referring Unavailab AMALIA Mullen Primary Care Unavailab AMALIA Mullen Attending Unavailab RACHEL Adair Referring Unavailable AMALIA AVERY Primary Care Unavailab AMALIA Mullen Attending Unavailab AMALIA Mlulen Primary Care Unavailable AZIKEN, DANIELLE Admitting Unavailable ZAINAB BROOKS Consulting Unavailable AMALIA AVERY Primary Care Unavailable AZIKEN, DANIELLE Attending Unavailable [facility] Unavailable KINGA SHARPE Referring Unavailable NARA VEGA Attending Unavailable AZIKEN, DANIELLE Attending Unavailable [facility] Unavailable AZIKEN, DANIELLE Referring Unavailable [facility] Unavailable AZIKEN, DANIELLE Attending Unavailable AZIKEN, DANIELLE Attending Unavailable [facility] Unavailable AZIKEN, DANIELLE Referring Unavailable AZIKEN, DANIELLE Attending Unavailable [facility] Unavailable [facility]Y [facility] Unavailable Allergies Allergy Classification Reported Allergen(s) Allergy Type Date of Onset Reaction(s) Facility (20 sources) Morphine; Translations: [MORPHINE] Drug Allergy 01-11-2017 GI Upset [facility] Medications Current Medications Medication Drug Class(es) Dates [...] tablet 0 12/30/2022 01/09/2023 Discontinued (Therapy completed) Problems Active Problems Problem Classification Problem Date Documented Date Episodic/Chronic Acute myocardial infarction (2 sources) Myocardial infarction; Translations: [Acute myocardial infarction, unspecified] Onset: 11-16-2018 01-09-2023 Chronic Adjustment disorders (13 sources) Adjustment disorder with anxious mood; Translations: [Adjustment disorder with anxiety] Onset: 07-31-2018 07-31-2018 Chronic Administrative/social admission (1 source) Patient encounter status; Translations: [Persons encountering health services in other specified circumstances] Episodic Chronic kidney disease (19 sources) Chronic kidney disease stage 3A ; Translations: [Stage 3a chronic kidney disease (HCC)] Onset: 04-26-2017 Chronic Chronic kidney disease (2 sources) Chronic kidney disease; Translations: [Stage 3b chronic kidney disease (HCC)] Onset: 04-26-2017 Complication of device; implant or graft (4 sources) Arteriosclerosis of coronary artery bypass graft; Translations: [Atherosclerosis of coronary artery bypass graft(s), unspecified, with angina pectoris with documented spasm] Onset: 12-14-2022 12-14-2022 Chronic Conduction disorders (20 sources) Complete atrioventricular block; Translations: [Atrioventricular block, complete] Onset: 07-31-2018 Chronic Congestive heart failure; nonhypertensive (7 sources) Chronic diastolic heart failure; Translations: [Chronic diastolic (congestive) heart failure] Onset: 11-14-2022 01-09-2023 Chronic Coronary atherosclerosis and other heart disease (20 sources) Coronary arteriosclerosis; Translations: [Atherosclerotic heart disease of [place] coronary artery without angina pectoris] Onset: 11-16-2018 Chronic Disorders of lipid metabolism (17 sources) Hyperlipidemia; Translations: [Hyperlipidemia, unspecified] Onset: 11-15-2020 Chronic Esophageal disorders (14 sources) Gastroesophageal reflux disease without esophagitis; Translations: [Gastro-esophageal reflux disease without esophagitis] Onset: 07-01-2015 Chronic Essential hypertension (19 sources) Benign hypertension; Translations: [Essential (primary) hypertension] Onset: 07-01-2015 Chronic Fluid and electrolyte disorders (2 sources) Hypokalemia; Translations: [Hypokalemia] Onset: 04-04-2023 04-04-2023 Episodic Heart valve disorders (7 sources) Non-rheumatic mitral regurgitation ; Translations: [Nonrheumatic mitral (valve) insufficiency] Onset: 01-09-2023 12-07-2022 Chronic Immunizations and screening for infectious disease (2 sources) Vaccination needed; Translations: [Encounter for immunization] Episodic Nonmalignant breast conditions (12 sources) Fibrocystic disease of breast; Translations: [Diffuse cystic mastopathy of unspecified breast] Onset: 07-01-2015 07-01-2015 Chronic Nutritional deficiencies (12 sources) Vitamin D deficiency; Translations: [Vitamin D deficiency, unspecified] Onset: 09-13-2017 09-13-2017 Chronic Osteoarthritis (12 sources) Arthritis of left ankle; Translations: [Primary osteoarthritis, left ankle and foot] Onset: 11-01-2018 11-01-2018 Chronic Other lower respiratory disease (1 source) Fibrosis of lung; Translations: [Pulmonary fibrosis, unspecified] Chronic Other lower respiratory disease (1 source) Orthopnea; Translations: [Orthopnea] 04-04-2023 Episodic Other lower respiratory disease (1 source) Orthopnea; Translations: [Orthopnea] Onset: 04-04-2023 Episodic Other nutritional; endocrine; and metabolic disorders (12 sources) Obese class I; Translations: [Obesity, unspecified] Onset: 11-15-2020 11-15-2020 Chronic Other nutritional; endocrine; and metabolic disorders (1 source) Hypocalcemia; Translations: [Hypocalcemia] 11-14-2022 Chronic Other skin disorders (12 sources) Lichen sclerosus et atrophicus; Translations: [Circumscribed scleroderma] Onset: 02-22-2017 02-22-2017 Chronic Residual codes; unclassified (3 sources) History of repair of mitral valve; Translations: [Other specified postprocedural states] Onset: 01-09-2023 01-09-2023 Episodic Unclassified (2 sources) New Patient; Translations: [New Patient] Onset: 11-29-2022 Past or Other Problems Problem Classification Problem Date Documented Da te Episodic/Chronic Conditions associated with dizziness or vertigo (12 sources) Benign paroxysmal positional vertigo; Translations: [Benign paroxysmal vertigo, unspecified ear] Onset: 04-11-2017 04-11-2017 Episodic Coronary atherosclerosis and other heart disease (2 sources) Presence of aortocoronary bypass graft; Translations: [Presence of aortocoronary bypass graft] Onset: 01-09-2023 Episodic Inflammation; infection of eye (except that caused by tuberculosis or sexually transmitteddisease) (14 sources) Herpes zoster keratoconjunctivitis ; Translations: [Zoster keratitis] Onset: 07-01-2015 07-01-2015 Episodic Other fractures (12 sources) Closed fracture of sternum; Translations: [Fracture of body of sternum, initial encounter for closed fracture] Onset: 02-10-2019 02-10-2019 Episodic Other gastrointestinal disorders (12 sources) Occult blood in stools; Translations: [Other fecal abnormalities] Onset: 12-21-2016 12-21-2016 Episodic Pneumonia (except that caused by tuberculosis or sexually transmitted disease) (4 sources) Infective pneumonia; Translations: [Pneumonia, unspecified organism] Onset: 05-26-2022 Episodic Residual codes; unclassified (2 sources) Other specified postprocedural states; Translations: [Other specified postprocedural states] Onset: 01-09-2023 Episodic Results Test Name Value Interpretation Reference Range Facil ity Vital Signs Date Time Vital Sign Value Performing Clinician Faci lity 04-04-2023 07:56-0500 Body weight 69.4 kg Amalia Avery MD Work Phone: [facility] 04-04-2023 07:56-0500 Diastolic blood pressure 70 mm[Hg] Amalia Avery MD Work Phone: [facility] 04-04-2023 07:56-0500 Heart rate 93 /min Amalia Avery MD Work Phone: [facility] 04-04-2023 07:56-0500 Respiratory rate 16 /min Amalia Avery MD Work Phone: [facility] 04-04-2023 07:56-0500 Systolic blood pressure 102 mm[Hg] Amalia Avery MD Work Phone: [facility] 03-16-2023 11:48-0500 Body weight 70.94 kg Amalia Avery MD Work Phone: [facility] 03-16-2023 11:48-0500 Diastolic blood pressure 70 mm[Hg] Amalia Avery MD Work Phone: [facility] 03-16-2023 11:48-0500 Heart rate 66 /min Amalia Avery MD Work Phone: [facility] 03-16-2023 11:48-0500 Respiratory rate 16 /min Amalia Avrey MD Work Phone: [facility] 03-16-2023 11:48-0500 SaO2% (BldA) [Mass fraction] 98 % Amalia Avery MD Work Phone: [facility] 03-16-2023 11:48-0500 Systolic blood pressure 110 mm[Hg] Amalia Avery MD Work Phone: [facility] 01-09-2023 09:51-0400 Body mass index (BMI) [Ratio] 28.73 kg/m2 Janel Xiaoelvineverardo ADDICTION MEDICINE PHYSICIAN - SHELLFISH PROCESSING MACHINE TENDER Work Phone: [facility] [employer] 01-09-2023 09:51-0400 Body weight 73.57 kg Janel Mayberry ADDICTION MEDICINE PHYSICIAN - SHELLFISH PROCESSING MACHINE TENDER Work Phone: [facility] [employer] 01-09-2023 09:51-0400 Diastolic blood pressure 53 mm[Hg] Janel Mayberry ADDICTION MEDICINE PHYSICIAN - SHELLFISH PROCESSING MACHINE TENDER Work Phone: [facility] [employer] 01-09-2023 09:51-0400 Heart rate 102 /min Janel Wetzeleverardo ADDICTION MEDICINE PHYSICIAN - SHELLFISH PROCESSING MACHINE TENDER Work Phone: [facility] [employer] 01-09-2023 09:51-0400 Systolic blood pressure 118 mm[Hg] Janel Mayberry ADDICTION MEDICINE PHYSICIAN - SHELLFISH PROCESSING MACHINE TENDER Work Phone: [facility] 12-30-2022 13:24-0400 Diastolic blood pressure 49 mm[Hg] Danielle Chou MD Work Phone: [facility] [employer] 12-30-2022 13:24-0400 Systolic blood pressure 94 mm[Hg] Danielle Chou MD Work Phone: [facility] [employer] 12-30-2022 13:00-0400 Heart rate 80 /min Danielle Chou MD Work Phone: [facility] [employer] 12-30-2022 11:00-0400 SaO2% (BldA) [Mass fraction] 100 % Danielle Chou MD Work Phone: [facility] [employer] 12-30-2022 08:40-0400 Body temperature 97.39 [degF] Danielle Chou MD Work Phone: [facility] [employer] 12-30-2022 08:40-0400 Respiratory rate 19 /min [facility] 12-30-2022 05:00-0400 Body mass index (BMI) [Ratio] 28.91 kg/m2 Danielle Chou MD Work Phone: [facility] [employer] 12-30-2022 05:00-0400 Body weight 74.03 kg Danielle Chou MD Work Phone: [facility] [employer] 12-18-2022 14:46-0400 Body height 160 cm Danielle Chou MD Work Phone: [facility] 12-15-2022 00:33-0400 SaO2% (BldA) [Mass fraction] 98.5 % Danielle Chou MD Work Phone: [facility] 12-14-2022 15:58-0400 SaO2% (BldA) [Mass fraction] 98.7 % Danielle Chou MD Work Phone: [facility] [employer] 12-14-2022 12:44-0400 SaO2% (BldA) [Mass fraction] 99.0 % Danielle Chou MD Work Phone: [facility] [employer] 11-14-2022 08:43-0400 Body weight 77.84 kg Silvia Podlogar ADDICTION MEDICINE PHYSICIAN.SHELLFISH PROCESSING MACHINE TENDER Work Phone: [facility] 11-14-2022 08:43-0400 Diastolic blood pressure 66 mm[Hg] Silvia Podlogar ADDICTION MEDICINE PHYSICIAN.SHELLFISH PROCESSING MACHINE TENDER Work Phone: [facility] 11-14-2022 08:43-0400 Heart rate 57 /min Silvia Podlogar ADDICTION MEDICINE PHYSICIAN.SHELLFISH PROCESSING MACHINE TENDER Work Phone: [facility] 11-14-2022 08:43-0400 Respiratory rate 18 /min Silvia Podlogar ADDICTION MEDICINE PHYSICIAN.SHELLFISH PROCESSING MACHINE TENDER Work Phone: [facility] 11-14-2022 08:43-0400 SaO2% (BldA) [Mass fraction] 97 % Silvia Podlogar ADDICTION MEDICINE PHYSICIAN.SHELLFISH PROCESSING MACHINE TENDER Work Phone: [facility] 11-14-2022 08:43-0400 Systolic blood pressure 106 mm[Hg] Silvia Hunter APRN.CNP Work Phone: [facility] 05-17-2022 08:01-0500 Body temperature 97.5 [degF] Amalia Avery MD Work Phone: [facility] 05-17-2022 08:01-0500 Body weight 75.75 kg Amalia Avery MD Work Phone: [facility] 05-17-2022 08:01-0500 Diastolic blood pressure 78 mm[Hg] Amalia Avery MD Work Phone: [facility] 05-17-2022 08:01-0500 Heart rate 74 /min Amalia Avery MD Work Phone: [facility] 05-17-2022 08:01-0500 Respiratory rate 20 /min Amalia Avery MD Work Phone: [facility] 05-17-2022 08:01-0500 SaO2% (BldA) [Mass fraction] 98 % Amalia Avery MD Work Phone: [facility] 05-17-2022 08:01-0500 Systolic blood pressure 120 mm[Hg] Amalia Avery MD Work Phone: [facility] 05-11-2022 12:42-0500 Body temperature 97.81 [degF] Laura Athy PA-C Work Phone: [facility] 05-11-2022 12:42-0500 Body weight 76.66 kg Laura Athy PA-C Work Phone: [facility] 05-11-2022 12:42-0500 Diastolic blood pressure 68 mm[Hg] Laura Athy PA-C Work Phone: [facility] 05-11-2022 12:42-0500 Heart rate 61 /min Laura Athy PA-C Work Phone: [facility] 05-11-2022 12:42-0500 Respiratory rate 18 /min Laura Athy PA-C Work Phone: [facility] 05-11-2022 12:42-0500 SaO2% (BldA) [Mass fraction] 97 % Lauraedilma Kimy PA-C Work Phone: [facility] 05-11-2022 12:42-0500 Systolic blood pressure 124 mm[Hg] Lauraedilma Kimy PA-C Work Phone: [facility] 11-16-2021 08:35-0400 Body weight 75.75 kg Silvia Podlogar ADDICTION MEDICINE PHYSICIAN.SHELLFISH PROCESSING MACHINE TENDER Work Phone: [facility] 11-16-2021 08:35-0400 Diastolic blood pressure 66 mm[Hg] Silvia Podlogar ADDICTION MEDICINE PHYSICIAN.SHELLFISH PROCESSING MACHINE TENDER Work Phone: [facility] 11-16-2021 08:35-0400 Heart rate 69 /min Silvia Podlogar ADDICTION MEDICINE PHYSICIAN.SHELLFISH PROCESSING MACHINE TENDER Work Phone: [facility] 11-16-2021 08:35-0400 Respiratory rate 18 /min Silvia Podlogar ADDICTION MEDICINE PHYSICIAN.SHELLFISH PROCESSING MACHINE TENDER Work Phone: [facility] 11-16-2021 08:35-0400 SaO2% (BldA) [Mass fraction] 96 % Silvia Podlogar ADDICTION MEDICINE PHYSICIAN.SHELLFISH PROCESSING MACHINE TENDER Work Phone: [facility] 11-16-2021 08:35-0400 Systolic blood pressure 110 mm[Hg] Silvia Podlogar ADDICTION MEDICINE PHYSICIAN.SHELLFISH PROCESSING MACHINE TENDER Work Phone: [facility] Encounters Encounter Date Encounter Type Care Provider Facility Start: 05-21-2023 End: 05-22-2023 ambulatory AMALIA AVERY [facility] Start: 04-19-2023 End: 04-20-2023 ambulatory AMALIA AVERY Facility:[facility] Start: 04-05-2023 Telephone encounter Luiz Avery MD Work Phone: [facility] [place] Procedures Date Procedure Procedure Detail Performing Clinician Start: 01-09-2023 History of coronary artery bypass grafting S/P CABG (coronary artery bypass graft) Janel Mayberry ADDICTION MEDICINE PHYSICIAN - SHELLFISH PROCESSING MACHINE TENDER Work Phone: Start: 12-28-2022 Basic metabolic panel calcium total Janel Mayberry ADDICTION MEDICINE PHYSICIAN - SHELLFISH PROCESSING MACHINE TENDER Work Phone: Start: 12-26-2022 Basic metabolic panel calcium total Kenton Lorenzana ADDICTION MEDICINE PHYSICIAN - SHELLFISH PROCESSING MACHINE TENDER Work Phone: Start: 12-26-2022 Radiologic exam swallow function contrast study Kenton Lorenzana ADDICTION MEDICINE PHYSICIAN - SHELLFISH PROCESSING MACHINE TENDER Work Phone: Start: 12-25-2022 Basic metabolic panel calcium total Kenton Lorenzana ADDICTION MEDICINE PHYSICIAN - SHELLFISH PROCESSING MACHINE TENDER Work Phone: Start: 12-24-2022 Basic metabolic panel calcium total Jan Rebollar ADDICTION MEDICINE PHYSICIAN - SHELLFISH PROCESSING MACHINE TENDER Work Phone: Start: 12-23-2022 Basic metabolic panel calcium total Agustina Marsh MD Work Phone: Start: 12-23-2022 Basic metabolic panel calcium total Jan Rebollar ADDICTION MEDICINE PHYSICIAN - SHELLFISH PROCESSING MACHINE TENDER Work Phone: Start: 12-22-2022 Radiologic exam swallow function contrast study Kenton Lorenzana ADDICTION MEDICINE PHYSICIAN - SHELLFISH PROCESSING MACHINE TENDER Work Phone: Start: 12-22-2022 Basic metabolic panel calcium total Jan Rebollar ADDICTION MEDICINE PHYSICIAN - SHELLFISH PROCESSING MACHINE TENDER Work Phone: Start: 12-21-2022 Radiologic exam chest single view Jan Rebollar ADDICTION MEDICINE PHYSICIAN - SHELLFISH PROCESSING MACHINE TENDER Work Phone: Start: 12-21-2022 Potassium serum plasma/whole blood Jan Rebollar ADDICTION MEDICINE PHYSICIAN - SHELLFISH PROCESSING MACHINE TENDER Work Phone: Start: 12-21-2022 Basic metabolic panel calcium total Jan Rebollar ADDICTION MEDICINE PHYSICIAN - SHELLFISH PROCESSING MACHINE TENDER Work Phone: Start: 12-20-2022 Potassium serum plasma/whole blood Danielle Chou MD Work Phone: Start: 12-20-2022 Radiologic exam chest single view Jan Rebollar ADDICTION MEDICINE PHYSICIAN - SHELLFISH PROCESSING MACHINE TENDER Work Phone: Start: 12-20-2022 Basic metabolic panel calcium total Jan Auguste CNP Work Phone: Start: 12-19-2022 Radiologic exam abdomen 1 view Janel Auguste CNP Work Phone: Start: 12-19-2022 Radiologic exam chest single view Jan Auguste CNP Work Phone: Start: 12-19-2022 Potassium serum plasma/whole blood Jan Auguste CNP Work Phone: Start: 12-19-2022 Basic metabolic panel calcium total Jan Auguste CNP Work Phone: Start: 12-18-2022 Echo transthorc r-t 2d w/wo m-mode rec f-up/lmtd Janel Auguste CNP Work Phone: Start: 12-18-2022 Radiologic exam chest single view Jan Auguste CNP Work Phone: Start: 12-18-2022 Basic metabolic panel calcium total Jan Auguste CNP Work Phone: Start: 12-18-2022 Compatibility each unit electronic Jan Auguste CNP Work Phone: Start: 12-17-2022 Radiologic exam swallow function contrast study Jan Auguste CNP Work Phone: Start: 12-17-2022 Radiologic exam chest single view Jan Auguste CNP Work Phone: Start: 12-17-2022 Basic metabolic panel calcium total Jan Auguste CNP Work Phone: Start: 12-16-2022 Glucose quantitative blood xcpt reagent strip Danielle Chou MD Work Phone: Start: 12-16-2022 Radiologic exam chest single view Jan Auguste CNP Work Phone: Start: 12-15-2022 End: 12-16-2022 Basic metabolic panel calcium total Jan Auguste CNP Work Phone: Start: 12-15-2022 Blood count hematocrit Jan Rebollar APR Manny - SHELLFISH PROCESSING MACHINE TENDER Work Phone: Start: 12-15-2022 Compatibility each unit electronic Janel Mayberry GRIS - SHELLFISH PROCESSING MACHINE TENDER Work Phone: Start: 12-15-2022 End: 12-15-2022 TRANSFUSE RED BLOOD CELLS Jan Rebollar APRN - SHELLFISH PROCESSING MACHINE TENDER Work Phone: Start: 12-15-2022 End: 12-15-2022 Basic metabolic panel calcium total Jan Rebollar APRN - SHELLFISH PROCESSING MACHINE TENDER Work Phone: Start: 12-15-2022 Glucose quantitative blood xcpt reagent strip Danielle Chou MD Work Phone: Start: 12-15-2022 Glucose quantitative blood xcpt reagent strip Danielle Chou MD Work Phone: Start: 12-15-2022 EXTUBATION Jan Keturah LANDRY - SHELLFISH PROCESSING MACHINE TENDER Work Phone: Start: 12-15-2022 Glucose quantitative blood xcpt reagent strip Danielle Chou MD Work Phone: Start: 12-15-2022 Ecg routine ecg w/least 12 lds trcg only w/o i&r Jan Leeyoanna Auguste CNP Work Phone: Start: 12-15-2022 Radiologic exam chest single view Jan Leeer ADDICTION MEDICINE PHYSICIAN - SHELLFISH PROCESSING MACHINE TENDER Work Phone: Start: 12-15-2022 End: 12-15-2022 Calcium ionized Jan Leeer ADDICTION MEDICINE PHYSICIAN - SHELLFISH PROCESSING MACHINE TENDER Work Phone: Start: 12-15-2022 End: 12-15-2022 Glucose quantitative blood xcpt reagent strip Danielle Chou MD Work Phone: Start: 12-15-2022 End: 12-15-2022 Basic metabolic panel calcium total Jan Rebollar APRN - SHELLFISH PROCESSING MACHINE TENDER Work Phone: Start: 12-15-2022 Blood gases any combination ph pco2 po2 co2 hco3 Jan Leeyoanna Auguste SHELLFISH PROCESSING MACHINE TENDER Work Phone: Start: 12-14-2022 End: 12-15-2022 Glucose quantitative blood xcpt reagent strip Danielle Chou MD Work Phone: Start: 12-14-2022 Glucose quantitative blood xcpt reagent strip Danielle Chou MD Work Phone: Start: 12-14-2022 End: 12-14-2022 Blood count hematocrit Janel Aldrich Tyrone moise ADDICTION MEDICINE PHYSICIAN - SHELLFISH PROCESSING MACHINE TENDER Work Phone: Start: 12-14-2022 End: 12-14-2022 Glucose quantitative blood xcpt reagent strip Danielle Chou MD Work Phone: Start: 12-14-2022 Glucose quantitative blood xcpt reagent strip Danielle Chou MD Work Phone: Start: 12-14-2022 End: 12-14-2022 TRANSFUSE RED BLOOD CELLS Janel Elinor Mayberry APRN - SHELLFISH PROCESSING MACHINE TENDER Work Phone: Start: 12-14-2022 Glucose quantitative blood xcpt reagent strip Danielle Chou MD Work Phone: Start: 12-14-2022 Blood gases any combination ph pco2 po2 co2 hco3 Jan Auguste CNP Work Phone: Start: 12-14-2022 End: 12-14-2022 TRANSFUSE RED BLOOD CELLS Jan Auguste CNP Work Phone: Start: 12-14-2022 End: 12-14-2022 Glucose quantitative blood xcpt reagent strip Danielle Chou MD Work Phone: Start: 12-14-2022 Radiologic exam chest single view Jan Auguste CNP Work Phone: Start: 12-14-2022 Blood gases any combination ph pco2 po2 co2 hco3 Jan Auguste CNP Work Phone: Start: 12-14-2022 Blood count hematocrit Jan Bryant - JOELLE Work Phone: Start: 12-14-2022 Ecg routine ecg w/least 12 lds trcg only w/o i&r Jan Auguste CNP Work Phone: Start: 12-14-2022 Blood gases any combination ph pco2 po2 co2 hco3 Danielle Chou MD Work Phone: Start: 12-14-2022 End: 12-14-2022 Basic metabolic panel calcium total Danielle Chou MD Work Phone: Start: 12-14-2022 Echo transesophag r-t 2d w/prb img acquisj i&r Danielle Chou MD Work Phone: Start: 12-14-2022 End: 12-14-2022 Cabg w/arterial graft three arterial grafts Danielle Chou MD Work Phone: Start: 12-14-2022 End: 12-14-2022 Echo transesophag r-t 2d w/prb img acquisj i&r Danielle Chou MD Work Phone: Start: 12-14-2022 End: 12-14-2022 Valvuloplasty mitral valve w/cardiac bypass Danielle Chou MD Work Phone: Start: 06-05-2022 INFLUENZA SEASONAL QUADRIVALENT HIGH DOSE AGE 65+ Amalia Avery MD Work Phone: Start: 06-05-2022 [email or web address] COVID-19 BIVALENT BOOSTER VACCINE, AGE 12+ YR Amalia Avery MD Work Phone: History of coronary artery bypass grafting S/P CABG (coronary artery bypass graft) Danielle Chou MD Work Phone: Plan of Treatment Date Care Activity Detail Author Start: 04-04-2026 Diabetes Screening Diabetes Screenin [facility] Start: 12-08-2025 Diabetes Screening Diabetes Screenin [facility] Start: 05-17-2025 DIABETES SCREEN DIABETES SCREEN [facility] Start: 05-17-2025 Diabetes Screening Diabetes Screenin [facility] Start: 11-18-2024 DIABETES SCREEN DIABETES SCREEN [facility] Start: 12-29-2023 Creatinine measurement [facility] Start: 12-29-2023 Potassium measurement S [facility] Start: 12-19-2023 Echocardiography Echocardiogram [facility] Start: 12-19-2023 [facility] Start: 05-17-2023 DIABETES SCREEN DIABETES SCREEN [facility] Start: 05-17-2023 Urine microalbumin profile [facility] Immunizations Immunization Date Immunization Notes Care Provider Saige roper 06-02-2022 COVID-19 booster vaccine, age 12+ yr, bivalent (PFIZER-BIONTECH) Ut Nurse Work Phone: [facility] Work Phone: 06-02-2022 influenza, high-dose , quadrivalent vaccine (FLUZONE HIGH DOSE QUADRIVALENT) Ut Nurse Work Phone: [facility] Work Phone: 06-02-2022 influenza virus vacc ine, unspecified formulation Jim Florian ADDICTION MEDICINE PHYSICIAN - [facility] Work Phone: [facility] 05-27-2021 COVID-19 vaccine, ag e 12+ yr (PFIZER-BIONTECH - SHABAZZ TOP) Silvia Podlogar ADDICTION MEDICINE PHYSICIAN.SHELLFISH PROCESSING MACHINE TENDER Work Phone: [facility] Work Phone: 03-06-2020 influenza, high-dose , quadrivalent vaccine (FLUZONE HIGH DOSE QUADRIVALENT) Silvia Podlogar ADDICTION MEDICINE PHYSICIAN.SHELLFISH PROCESSING MACHINE TENDER Work Phone: [facility] 07-04-2016 pneumococcal polysaccharide vaccine, 23 valent Silvia Podlogar ADDICTION MEDICINE PHYSICIAN.SHELLFISH PROCESSING MACHINE TENDER Work Phone: [facility] 07-01-2015 pneumococcal conjuga te vaccine, 13 valent Silvia Podlogar ADDICTION MEDICINE PHYSICIAN.SHELLFISH PROCESSING MACHINE TENDER Work Phone: [facility] Payers Date Payer Category Payer Medicare AETNA MEDICARE A ETNA MEDICARE PPO [id number] 2021-Present [phone] [address] BILL FAN [address] PPO [id number] 2021 Medicare [id number] 2021 Medicare [id number] Social History Date Type Detail Facility Start: 05-11-2022 End: 11-29-2022 Tobacco smoking status NHIS Ex-smoker [facility] End: 04-30-1967 History of tobacco use Current smoker [facility] Work Phone: Start: 11-16-2021 End: 04-04-2023 Alcohol intake Current non-drinker of alcohol (finding) [facility] Start: 1940 Sex Assigned At Female C [facility] Work Phone: Start: 10-29-2021 End: 01-22-2023 Exposure to SARS-CoV-2 (event) Unable to assess [facility] Work Phone: End: [birth year]-30-1967 History of tobacco use Cigarette Smoker [facility] Start: 05-11-2022 End: 11-29-2022 Tobacco use and exposure Smokeless tobacco non-user [facility] Start: 07-31-2018 End: 11-14-2022 History of Social function [facility] Start: 07-31-2018 End: 11-14-2022 Tobacco use panel [facility] Adult Depression Screening Assessment 0 [facility] Start: 11-15-2020 Gender identity Identifies as female gender (finding) [facility] Work Phone: Start: 11-15-2020 Sexual orientation Heterosexual (fin ding) [facility] Work Phone: Start: 11-29-2022 End: 01-09-2023 Alcohol intake Lifetime non-drinker (finding) [facility] [employer] Start: 1940 Sex Assigned At Not on file [facility] Start: 11-21-2022 End: 01-09-2023 Exposure to SARS-CoV-2 (event) Not sure [facility] [employer] Within the last year , have you been afraid of your partner or ex-partner? No [facility] [employer] Medical Equipment Procedure Code Equipment Code Equipment Origin al Text Equipment Identifier Dates [id number] Start: 12-14-2022 [id number] Start: 12-14-2022 Clinical Notes 04-12-2017 to 05-16-2023 Telephone Encounter - Kelly Hair LPN - 04/05/2023 4:24 PM ESTTelephone Encounter - Amalia Avery MD - 04/05/2023 4:16 PM Amalia Manriquez MD - 04/04/2023 8:04 AM EST Note Date & Type Note Facility 05-16-2023 Note HNO ID: [id number] Author: SHARATH ALMAGUER RN Service: ? Author Type: Registered Nurse Type: Progress Notes Filed: 05/16/2023 13:17 Note Text: [facility] NURSE - CHART REVIEW Provider FYKarl PCC Action Presented to ED after mechanical fall in home. Reported loss of balance hitting head and LEFT knee. Denied loss of consciousness. Patient on chronic anticoagulation. CT did not reveal any acute processes Transitioned to home Pt identified by name and . Reason for Review: Payor request Patient Attributed To: LETIE Payer: KIMMIE Chart Review For: Utilization: ED Total Patient High CostTotal Patient High Cost {HIGH COST:021979) Quality measure review Payor request for assistance Action Taken: No action needed Sharath Almaguer RN May 16, 2023 1:10 PM [facility] 05-16-2023 Note Patient Outreach (AM [facility]) DAYANA QUIÑONES ([id number]) 1940 F Date Time Provider Department 05/16/23 SHARATH ALMAGUER [facility] During your visit today, we recorded the following information about you: Sharath Almaguer RN 05/16/2023 1:17 PM Signed [facility] - CHART REVIEW Provider SARAH PCC Action Presented to ED after mechanical fall in home. Reported loss of balance hitting head and LEFT knee. Denied loss of consciousness. Patient on chronic anticoagulation. CT did not reveal any acute processes Transitioned to home Pt identified by name and . Reason for Review: Payor request Patient Attributed To: QAE Payer: NATALIhCaseHALIMA Chart Review For: Utilization: ED Total Patient High CostTotal Patient High Cost {HIGH COST:988934) Quality measure review Payor request for assistance Action Taken: No action needed Sharath Almaguer RN May 16, 2023 1:10 PM Allergies As of Date: 05/16/2023 Noted Allergy Reaction MORPHINE 01/11/2017 8 - GI Upset Comments: vomiting Date Reviewed: 04/04/2023 Reviewed by: Joyce Bates MA - Fully Assessed Prescriptions as of 05/16/2023 - spironolactone (ALDACTONE) 25 mg tablet Take 1 tablet by mouth once daily. - furosemide (LASIX) 40 mg tablet Take 1 tablet by mouth once daily. - metoprolol succinate ER (TOPROL XL) 25 mg 24 hr tablet Take 25 mg by mouth two times a day. - Vit A,C,D-Nnjh-Rxoszv (ICAPS AREDS) 4,296 mcg-226 mg-90 mg cap Take 1 capsule by mouth once daily. - apixaban (ELIQUIS) 5 mg tab(s) Take 5 mg by mouth twice daily. - dapagliflozin propanediol (FARXIGA) 10 mg tablet Take 10 mg by mouth daily with breakfast. - omeprazole (PRILOSEC) 40 mg capsule Take 1 capsule by mouth once daily. - timolol maleate (TIMOPTIC) 0.5 % ophthalmic solution Use 1 Drop in the left eye twice daily. - betamethasone dipropionate (DIPROSONE) 0.05 % cream Apply to affected area twice daily as needed. - atorvastatin (LIPITOR) 20 mg tablet Take 20 mg by mouth daily at bedtime. - Difluprednate 0.05 % drop Use 1 Drop in the left eye as directed. Every other day. - Cholecalciferol, Vitamin D3, 2,000 unit cap Take 1 capsule by mouth once daily. - COMPOUNDED PRESCRIPTION 1 Drop. Every other day-left eye - aspirin, enteric coated (ASPIRIN, ENTERIC COATED) 81 mg EC tablet Take 81 mg by mouth once daily. - acyclovir (ZOVIRAX) 800 mg tablet Take 1 tablet by mouth twice daily. Take at first signs of outbreak. 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] 07/01/2015 Fibrocystic breast disease (FCBD) in female [N6*07/01/2015 Occult blood positive stool [R19.5] 12/21/2016 Neutrophilia [D72.9] 12/22/2016 12/14/2017 Lichen sclerosus et atrophicus [L90.0] 02/22/2017 BPPV (benign paroxysmal positional vertigo), un*04/11/2017 Acute renal failure superimposed on stage 3 chr*04/12/2017 04/26/2017 CKD (chronic kidney disease), stage III [N18.30]04/26/2017 Vitamin D deficiency [E55.9] 09/13/2017 Complete heart block (HCC) [I44.2] 07/31/2018 Adjustment disorder with anxious mood [F43.22] 07/31/2018 Normally functioning cardiac pacemaker present *11/01/2018 Arthritis of left ankle [M19.072] 11/01/2018 Closed fracture of body of sternum [S22.22XA] 02/10/2019 Obesity, Class I, BMI 30-34.9 [E66.9] 11/15/2020 Hyperlipidemia LDL goal <100 [E78.5] 11/15/2020 Ischemic cardiomyopathy [I25.5] 05/17/2022 Acute on chronic systolic heart failure (HCC) [*03/29/2023 Encounter Status:Closed by SHARATH ALMAGUER on 05/16/23 [facility] 04-05-2023 Miscellaneous Notes Phoned patient and reviewed provider's message with her. Patient stated she will Contact Dr Guzman and see if she can get in with her since she doesn't want to travel out of town. Advised patient to contact us if unable to be seen within 2 weeks so lab recheck can be ordered by PCP. Patient voiced understanding. Her potassium level was on higher end of normal. I would have her stop the potassium supplement with the addition of the aldactone. If she gets an appointment with nephrology in the next couple weeks I would have them get it drawn there with any other testing they order. If appointment is farther out than that, I would order another level in about 2 weeks. I would have her continue the Farxiga as it does offer some kidney protection. Patient is asking if she needs to continue potassium? Also asking if the farxiga is actually helping with her kidney disease since the advertisement on TV states that it does? Patient will contact scheduling desk to see about scheduling nephrology appt. She stated if [facility] doesn't have someone local she will likely opt for Dr Guzman since she wants to stay local. Patient with CKD in stage IIIb range. Worsened slightly compared to last check. With her needing additional diuretics, would refer her to nephrology to help manage her kidney function in combination with CHF. Recommend low sodium diet <2,000 mg per day, avoidance of NSAIDs. documented in this encounter [facility] 04-04-2023 Note HNO ID: [id number] Author: Amalia Avery MD Service: ? Author Type: Physician Type: Progress Notes Filed: 04/04/2023 1:39 PM Note Text: Chief Complaint Patient presents with: Hospital F/U HPI Dayana Quiñones is a 83 year old female who presents here today for Hospital Discharge Follow up. Accompanied today by her daughter. Patient admitted to [facility] from 03/16 to 03/19 for CHF exacerbation after presenting to ER with worsening dyspnea for 1 week prior to admission. Echo during this hospitalization showed significant reduction of EF from 30% to 10-15%. Treated with IV lasix, started on aldactone and SOB improved. Fitted for Lifevest prior to discharge. Recommended f/u with our office for hypokalemia and hospital follow up. 1,500 to 1,800 cc fluid restriction and needed f/u for AICD placement. Since discharge, patient has been wearing LifeVest as directed and complains that it weighs her down. Taking Lasix 40 mg daily and aldactone 25 mg daily. Adhering to fluid restriciton. Weight down 3 lbs on our scale today. Checking daily weights and has ipad device that communicates with [facility] regarding her vitals and her symptoms. Has follow up with cardiology on 05/[address] Vega. Has not been holding her 20 meq potassium chloride as directed. Due for recheck today. Denies orthopnea, LE edema, worsening SOB, chest pain, palpitations. Past medical history, appointments, medications, allergies reviewed. Previous Medical History PAST MEDICAL HISTORY Diagnosis Date Atherosclerotic heart disease of [place] coronary artery without angina pectoris 2018 Dr. Brumfield Benign hypertension 07/01/2015 BPPV (benign paroxysmal positional vertigo), unspecified laterality 04/11/2017 CKD (chronic kidney disease) stage 3, GFR 30-59 ml/min (HCC) Fibrocystic breast disease (FCBD) in female 07/01/2015 Gastroesophageal reflux disease 07/01/2015 Herpes zoster keratoconjunctivitis 07/01/2015 Hyperlipidemia 2019 Ischemic cardiomyopathy Neutrophilia 12/22/2016 Normally functioning cardiac pacemaker present 11/01/2018 Paroxysmal atrial flutter (HCC) Presence of permanent cardiac pacemaker 2019 S/P CABG (coronary artery bypass graft) S/P MVR (mitral valve repair) Shingles 12/27/2014 ST elevation (STEMI) myocardial infarction involving left anterior descending coronary artery (HCC) 2019 Previous Surgical History PAST SURGICAL HISTORY Procedure Laterality Date ANESTH,PACEMAKER INSERTION DRUG-ELUTING STENTS,EACH ADD LOW BACK DISK SURGERY 04/30/1993 TONSILLECTOMY AND ADENOIDECTOMY HX 04/30/1944 Family History FAMILY HISTORY Problem Relation Age of Onset Hyperlipidemia Mother No Known Problems Sister Hyperlipidemia Sister Heart disease Sister Coronary Artery Disease Sister Heart disease Sister Heart Attack Brother Melanoma Brother No Known Problems Son No Known Problems Daughter No Known Problems Daughter Patient Allergies ALLERGIES Allergen Reactions Morphine GI Upset vomiting Current Medications Current Outpatient Medications on File Prior to Visit Medication Sig metoprolol succinate ER (TOPROL XL) 25 mg 24 hr tablet Take 25 mg by mouth two times a day. Vit A,C,X-Rplt-Quaogx (ICAPS AREDS) 4,296 mcg-226 mg-90 mg cap Take 1 capsule by mouth once daily. apixaban (ELIQUIS) 5 mg tab(s) Take 5 mg by mouth twice daily. dapagliflozin propanediol (FARXIGA) 10 mg tablet Take 10 mg by mouth daily with breakfast. furosemide (LASIX) 40 mg tablet Take 40 mg by mouth once daily. Currently taking 40 Mg BID for 3 days then resume 40 mg daily omeprazole (PRILOSEC) 40 mg capsule Take 1 capsule by mouth once daily. timolol maleate (TIMOPTIC) 0.5 % ophthalmic solution Use 1 Drop in the left eye twice daily. betamethasone dipropionate (DIPROSONE) 0.05 % cream Apply to affected area twice daily as needed. atorvastatin (LIPITOR) 20 mg tablet Take 20 mg by mouth daily at bedtime. Difluprednate 0.05 % drop Use 1 Drop in the left eye as directed. Every other day. Cholecalciferol, Vitamin D3, 2,000 unit cap Take 1 capsule by mouth once daily. COMPOUNDED PRESCRIPTION 1 Drop. Every other day-left eye aspirin, enteric coated (ASPIRIN, ENTERIC COATED) 81 mg EC tablet Take 81 mg by mouth once daily. acyclovir (ZOVIRAX) 800 mg tablet Take 1 tablet by mouth twice daily. Take at first signs of outbreak. (Patient taking differently: Take 800 mg by mouth once daily. Take at first signs of outbreak.) spironolactone (ALDACTONE) 25 mg tablet Take 1 tablet by mouth once daily. No current facility-administered medications on file prior to visit. Social History Social History Tobacco Use Smoking status: Former Types: Cigarettes Quit date: 04/30/1967 Years since quittin.9 Smokeless tobacco: Never Vaping Use Vaping Use: Never used Substance Use Topics Alcohol use: No Drug use: Never Review of Symptoms REVIEW OF SYSTEMS GENERAL: No weight los (more content not included)... [facility] 04-04-2023 History of Present illness Narrative Chief Complaint Patient presents with: Hospital F/U HPI Dayana Quiñones is a 83 year old female who presents here today for Hospital Discharge Follow up. Accompanied today by her daughter. Patient admitted to [facility] from 03/16 to 03/19 for CHF exacerbation after presenting to ER with worsening dyspnea for 1 week prior to admission. Echo during this hospitalization showed significant reduction of EF from 30% to 10-15%. Treated with IV lasix, started on aldactone and SOB improved. Fitted for Lifevest prior to discharge. Recommended f/u with our office for hypokalemia and hospital follow up. 1,500 to 1,800 cc fluid restriction and needed f/u for AICD placement. Since discharge, patient has been wearing LifeVest as directed and complains that it weighs her down. Taking Lasix 40 mg daily and aldactone 25 mg daily. Adhering to fluid restriciton. Weight down 3 lbs on our scale today. Checking daily weights and has ipad device that communicates with [facility] regarding her vitals and her symptoms. Has follow up with cardiology on 05/[address] Vega. Has not been holding her 20 meq potassium chloride as directed. Due for recheck today. Denies orthopnea, LE edema, worsening SOB, chest pain, palpitations. Past medical history, appointments, medications, allergies reviewed. Previous Medical History PAST MEDICAL HISTORY Diagnosis Date Atherosclerotic heart disease of [place] coronary artery without angina pectoris 2018 Dr. Brumfield Benign hypertension 07/01/2015 BPPV (benign paroxysmal positional vertigo), unspecified laterality 04/11/2017 CKD (chronic kidney disease) stage 3, GFR 30-59 ml/min (HCC) Fibrocystic breast disease (FCBD) in female 07/01/2015 Gastroesophageal reflux disease 07/01/2015 Herpes zoster keratoconjunctivitis 07/01/2015 Hyperlipidemia 2019 Ischemic cardiomyopathy Neutrophilia 12/22/2016 Normally functioning cardiac pacemaker present 11/01/2018 Paroxysmal atrial flutter (HCC) Presence of permanent cardiac pacemaker 2019 S/P CABG (coronary artery bypass graft) S/P MVR (mitral valve repair) Shingles 12/27/2014 ST elevation (STEMI) myocardial infarction involving left anterior descending coronary artery (HCC) 2019 Previous Surgical History PAST SURGICAL HISTORY Procedure Laterality Date ANESTH,PACEMAKER INSERTION DRUG-ELUTING STENTS,EACH ADD LOW BACK DISK SURGERY 04/30/1993 TONSILLECTOMY AND ADENOIDECTOMY HX 04/30/1944 Family History FAMILY HISTORY Problem Relation Age of Onset Hyperlipidemia Mother No Known Problems Sister Hyperlipidemia Sister Heart disease Sister Coronary Artery Disease Sister Heart disease Sister Heart Attack Brother Melanoma Brother No Known Problems Son No Known Problems Daughter No Known Problems Daughter Patient Allergies ALLERGIES Allergen Reactions Morphine GI Upset vomiting Current Medications Current Outpatient Medications on File Prior to Visit Medication Sig metoprolol succinate ER (TOPROL XL) 25 mg 24 hr tablet Take 25 mg by mouth two times a day. Vit A,C,E-Urdk-Pqqnxv (ICAPS AREDS) 4,296 mcg-226 mg-90 mg cap Take 1 capsule by mouth once daily. apixaban (ELIQUIS) 5 mg tab(s) Take 5 mg by mouth twice daily. dapagliflozin propanediol (FARXIGA) 10 mg tablet Take 10 mg by mouth daily with breakfast. furosemide (LASIX) 40 mg tablet Take 40 mg by mouth once daily. Currently taking 40 Mg BID for 3 days then resume 40 mg daily omeprazole (PRILOSEC) 40 mg capsule Take 1 capsule by mouth once daily. timolol maleate (TIMOPTIC) 0.5 % ophthalmic solution Use 1 Drop in the left eye twice daily. betamethasone dipropionate (DIPROSONE) 0.05 % cream Apply to affected area twice daily as needed. atorvastatin (LIPITOR) 20 mg tablet Take 20 mg by mouth daily at bedtime. Difluprednate 0.05 % drop Use 1 Drop in the left eye as directed. Every other day. Cholecalciferol, Vitamin D3, 2,000 unit cap Take 1 capsule by mouth once daily. COMPOUNDED PRESCRIPTION 1 Drop. Every other day-left eye aspirin, enteric coated (ASPIRIN, ENTERIC COATED) 81 mg EC tablet Take 81 mg by mouth once daily. acyclovir (ZOVIRAX) 800 mg tablet Take 1 tablet by mouth twice daily. Take at first signs of outbreak. (Patient taking differently: Take 800 mg by mouth once daily. Take at first signs of outbreak.) spironolactone (ALDACTONE) 25 mg tablet Take 1 tablet by mouth once daily. No current facility-administered medications on file prior to visit. Social History Social History Tobacco Use Smoking status: Former Types: Cigarettes Quit date: 04/30/1967 Years since quittin.9 Smokeless tobacco: Never Vaping Use Vaping Use: Never used Substance Use Topics Alcohol use: No Drug use: Never Review of Symptoms REVIEW OF SYSTEMS GENERAL: No weight loss, malaise or fevers RESPIRATORY: Negative for cough, hemoptysis, wheezing, COPD, dyspnea or shortness of breath CARDIOVASCULAR: See HPI GI: No nausea, vomiting, or diarrhea SKIN: Negative for lesions, rash, and itching EXAM: BP 102/70 Pulse 93 Resp 16 Wt 69.4 kg (153 lb) BMI 27.10 kg/m General Appearance: Well appearing, alert, in no acute distress, well-hydrated, well nourished.. Skin: Skin color, texture, turgor normal, no suspicious rashes or lesions. Lungs: Lungs clear to auscultation. No wheezing, rhonchi, rales.. Heart: RRR without murmur, gallop, or rubs. No ectopy. Abdomen: Normal abdominal exam, Abdomen soft, non-tender. Bowel sounds normal. No masses, organomegaly. Extremities: No deformities, edema, skin discoloration, clubbing or cyanosis. Good capillary refill. Health Maintenance List RSV Vaccine(1 - 1-dose 60+ series) Never done Advance Directive Discussion Never done Depression Assessment Never done Covid-19 Vaccine(2022- season) due on 12/29/2022 DTaP,Tdap,Td Vaccine(1 - Tdap) due on 05/17/2023 Diabetes Screening due on 12/08/2025 Bone Density Screening Completed Influenza Vaccine Completed Pneumococcal Vaccine: 65+ Completed Shingrix Vaccine Discontinued ASSESSMENT/PLAN: 1. Acute on chronic congestive heart failure, unspecified heart failure type (HCC) - ICD9: 428.0, ICD10: I50.9 (primary diagnosis) Symptoms have improved with addition of aldactone to current regimen. Continue LifeVest, sodium and fluid restrictions. Will recheck CMP today as requested. Keep f/u with cardiology in April as scheduled. Red flags for re-assessment reviewed with patient in detail. - COMP METABOLIC PANEL 2. Orthopnea - ICD9: 786.02, ICD10: R06.01 Resolved. 3. Stage 3a chronic kidney disease (HCC) - ICD9: 585.3, ICD10: N18.31 Recheck CMP today to monitor renal function and potassium levels. 4. Hypokalemia - ICD9: 276.8, ICD10: E87.6 See above. Amalia Avery MD documented in this encounter [facility] 03-16-2023 Note HNO ID: [id number] Author: Amalia Avery MD Service: ? Author Type: Physician Type: Progress Notes Filed: 03/16/2023 8:20 PM Note Text: Chief Complaint Patient presents with: ER F/U Fatigue Blood Pressure: Patient reports has been running low and that [facility] has been adjusting medications HPI Dayana Quiñones is a 83 year old female who presents here today for ER Follow Up. Accompanied today by her daughter. Patient evaluated at [facility] ED on 03/14 after calling in to our office with complaint of BP 90/72 with lightheadedness/dizziness, SOB, feeling off balance, vomiting x1. Initial BP in the ED 110/70 with negative orthostatics. BP lying down was 88/71. Obtained CBC, BMP, troponin, and BNP which were significant for mild anemia with HGB 11.2, creatinine 1.46, and BNP of 1419.1. UA negative for infection. CXR showed mild CHF improved. No edema noted on exam. Crackles present on lung exam. Offered admission for IV diuresis which she refused stating she wanted to try lasix 80 mg BID as her scrap baller recommended. Discharged home. Since discharge, patient has been checking her BP at home with automatic arm cuff and has continued to get BP's in the 90's systolic. Does check it while seated upright on her couch. Admits to orthopnea and SOB last night until this morning, shaking, malaise, lightheadedness/dizziness. Denies LE swelling, chest pain, palpations, nausea, vomiting. Taking Lasix 40 mg BID instead of daily x 3 days as directed by her scrap baller. Diuresing well on higher dosage of Lasix. Daily weight at home has been stable around [address] Brumfield's office on 03/13, but has not spoke to their office since discharge. Admits to eating canned soups about 3 times per week, indonesian bread pizza occasionally. Does not add salt to her food. Did not bring her cuff with her today. States that with her SOB last night and feeling SOB while talking to me today she does not feel safe going home and trying to manage this with oral diuretics, imaging, and labs today. Past medical history, appointments, medications, allergies reviewed. Previous Medical History PAST MEDICAL HISTORY Diagnosis Date Atherosclerotic heart disease of [place] coronary artery without angina pectoris 2018 Dr. Brumfield Benign hypertension 07/01/2015 BPPV (benign paroxysmal positional vertigo), unspecified laterality 04/11/2017 CKD (chronic kidney disease) stage 3, GFR 30-59 ml/min (HCC) Fibrocystic breast disease (FCBD) in female 07/01/2015 Gastroesophageal reflux disease 07/01/2015 Herpes zoster keratoconjunctivitis 07/01/2015 Hyperlipidemia 2019 Ischemic cardiomyopathy Neutrophilia 12/22/2016 Normally functioning cardiac pacemaker present 11/01/2018 Paroxysmal atrial flutter (HCC) Presence of permanent cardiac pacemaker 2019 Shingles 12/27/2014 ST elevation (STEMI) myocardial infarction involving left anterior descending coronary artery (HCC) 2019 Previous Surgical History PAST SURGICAL HISTORY Procedure Laterality Date ANESTH,PACEMAKER INSERTION DRUG-ELUTING STENTS,EACH ADD LOW BACK DISK SURGERY 04/30/1993 TONSILLECTOMY AND ADENOIDECTOMY HX 04/30/1945 Family History FAMILY HISTORY Problem Relation Age of Onset Hyperlipidemia Mother No Known Problems Sister Hyperlipidemia Sister Heart disease Sister Coronary Artery Disease Sister Heart disease Sister Heart Attack Brother Melanoma Brother No Known Problems Son No Known Problems Daughter No Known Problems Daughter Patient Allergies ALLERGIES Allergen Reactions Morphine GI Upset vomiting Current Medications Current Outpatient Medications on File Prior to Visit Medication Sig apixaban (ELIQUIS) 5 mg tab(s) Take 5 mg by mouth twice daily. dapagliflozin propanediol (FARXIGA) 10 mg tablet Take 10 mg by mouth daily with breakfast. furosemide (LASIX) 40 mg tablet Take 40 mg by mouth once daily. Currently taking 40 Mg BID for 3 days then resume 40 mg daily atorvastatin (LIPITOR) 20 mg tablet Take 20 mg by mouth daily at bedtime. aspirin, enteric coated (ASPIRIN, ENTERIC COATED) 81 mg EC tablet Take 81 mg by mouth once daily. acyclovir (ZOVIRAX) 800 mg tablet Take 1 tablet by mouth twice daily. Take at first signs of outbreak. (Patient taking differently: Take 800 mg by mouth once daily. Take at first signs of outbreak.) sacubitril-valsartan (ENTRESTO) 24-26 mg tablet Take 1 tablet by mouth twice daily. omeprazole (PRILOSEC) 40 mg capsule Take 1 capsule by mouth once daily. carvedilol (COREG) 12.5 mg tablet Take 1 tablet by mouth twice daily with meals. (Patient not taking: Reported on 03/16/2023) losartan-hydroCHLOROthiazide (HYZAAR) 50-12.5 mg per tablet Take 1 tablet by mouth once daily. timolol maleate (TIMOPTIC) 0.5 % ophthalmic solution Use 1 Drop in the left eye twice daily. betamethasone dipropionate (DIPROSONE) 0.05 % cream Apply to affected area (more content not included)... [facility] 03-16-2023 History of Present illness Narrative Chief Complaint Patient presents with: ER F/U Fatigue Blood Pressure: Patient reports has been running low and that [facility] has been adjusting medications HPI Dayana Quiñones is a 83 year old female who presents here today for ER Follow Up. Accompanied today by her daughter. Patient evaluated at [facility] ED on 03/14 after calling in to our office with complaint of BP 90/72 with lightheadedness/dizziness, SOB, feeling off balance, vomiting x1. Initial BP in the ED 110/70 with negative orthostatics. BP lying down was 88/71. Obtained CBC, BMP, troponin, and BNP which were significant for mild anemia with HGB 11.2, creatinine 1.46, and BNP of 1419.1. UA negative for infection. CXR showed mild CHF improved. No edema noted on exam. Crackles present on lung exam. Offered admission for IV diuresis which she refused stating she wanted to try lasix 80 mg BID as her scrap baller recommended. Discharged home. Since discharge, patient has been checking her BP at home with automatic arm cuff and has continued to get BP's in the 90's systolic. Does check it while seated upright on her couch. Admits to orthopnea and SOB last night until this morning, shaking, malaise, lightheadedness/dizziness. Denies LE swelling, chest pain, palpations, nausea, vomiting. Taking Lasix 40 mg BID instead of daily x 3 days as directed by her scrap baller. Diuresing well on higher dosage of Lasix. Daily weight at home has been stable around [address] Brumfield's office on 03/13, but has not spoke to their office since discharge. Admits to eating canned soups about 3 times per week, indonesian bread pizza occasionally. Does not add salt to her food. Did not bring her cuff with her today. States that with her SOB last night and feeling SOB while talking to me today she does not feel safe going home and trying to manage this with oral diuretics, imaging, and labs today. Past medical history, appointments, medications, allergies reviewed. Previous Medical History PAST MEDICAL HISTORY Diagnosis Date Atherosclerotic heart disease of [place] coronary artery without angina pectoris 2018 Dr. Brumfield Benign hypertension 07/01/2015 BPPV (benign paroxysmal positional vertigo), unspecified laterality 04/11/2017 CKD (chronic kidney disease) stage 3, GFR 30-59 ml/min (HCC) Fibrocystic breast disease (FCBD) in female 07/01/2015 Gastroesophageal reflux disease 07/01/2015 Herpes zoster keratoconjunctivitis 07/01/2015 Hyperlipidemia 2019 Ischemic cardiomyopathy Neutrophilia 12/22/2016 Normally functioning cardiac pacemaker present 11/01/2018 Paroxysmal atrial flutter (HCC) Presence of permanent cardiac pacemaker 2019 Shingles 12/27/2014 ST elevation (STEMI) myocardial infarction involving left anterior descending coronary artery (HCC) 2019 Previous Surgical History PAST SURGICAL HISTORY Procedure Laterality Date ANESTH,PACEMAKER INSERTION DRUG-ELUTING STENTS,EACH ADD LOW BACK DISK SURGERY 04/30/1993 TONSILLECTOMY AND ADENOIDECTOMY HX 04/30/1944 Family History FAMILY HISTORY Problem Relation Age of Onset Hyperlipidemia Mother No Known Problems Sister Hyperlipidemia Sister Heart disease Sister Coronary Artery Disease Sister Heart disease Sister Heart Attack Brother Melanoma Brother No Known Problems Son No Known Problems Daughter No Known Problems Daughter Patient Allergies ALLERGIES Allergen Reactions Morphine GI Upset vomiting Current Medications Current Outpatient Medications on File Prior to Visit Medication Sig apixaban (ELIQUIS) 5 mg tab(s) Take 5 mg by mouth twice daily. dapagliflozin propanediol (FARXIGA) 10 mg tablet Take 10 mg by mouth daily with breakfast. furosemide (LASIX) 40 mg tablet Take 40 mg by mouth once daily. Currently taking 40 Mg BID for 3 days then resume 40 mg daily atorvastatin (LIPITOR) 20 mg tablet Take 20 mg by mouth daily at bedtime. aspirin, enteric coated (ASPIRIN, ENTERIC COATED) 81 mg EC tablet Take 81 mg by mouth once daily. acyclovir (ZOVIRAX) 800 mg tablet Take 1 tablet by mouth twice daily. Take at first signs of outbreak. (Patient taking differently: Take 800 mg by mouth once daily. Take at first signs of outbreak.) sacubitril-valsartan (ENTRESTO) 24-26 mg tablet Take 1 tablet by mouth twice daily. omeprazole (PRILOSEC) 40 mg capsule Take 1 capsule by mouth once daily. carvedilol (COREG) 12.5 mg tablet Take 1 tablet by mouth twice daily with meals. (Patient not taking: Reported on 03/16/2023) losartan-hydroCHLOROthiazide (HYZAAR) 50-12.5 mg per tablet Take 1 tablet by mouth once daily. timolol maleate (TIMOPTIC) 0.5 % ophthalmic solution Use 1 Drop in the left eye twice daily. betamethasone dipropionate (DIPROSONE) 0.05 % cream Apply to affected area twice daily as needed. meclizine (ANTIVERT) 25 mg tab Take 1 tablet by mouth three times daily as needed (dizziness). Difluprednate 0.05 % drop Use 1 Drop in the left eye as directed. Every other day. Cholecalciferol, Vitamin D3, 2,000 unit cap Take 1 capsule by mouth once daily. COMPOUNDED PRESCRIPTION 1 Drop. Every other day-left eye No current facility-administered medications on file prior to visit. Social History Social History Tobacco Use Smoking status: Former Types: Cigarettes Quit date: 04/30/1967 Years since quittin.9 Smokeless tobacco: Never Vaping Use Vaping Use: Never used Substance Use Topics Alcohol use: No Drug use: Never Review of Symptoms REVIEW OF SYSTEMS See HPI EXAM: BP 110/70 Pulse 66 Resp 16 Wt 70.9 kg (156 lb 6.4 oz) SpO2 98% BMI 27.71 kg/m General Appearance: Well appearing, alert, in no acute distress, well-hydrated, well nourished.. Skin: Skin color, texture, turgor normal, no suspicious rashes or lesions. Lungs: crackles in bases bilaterally without consolidation. Heart: RRR without murmur, gallop, or rubs. No ectopy. Abdomen: Normal abdominal exam, Abdomen soft, non-tender. Bowel sounds normal. No masses, organomegaly. Extremities: No deformities, edema, skin discoloration, clubbing or cyanosis. Good capillary refill. Health Maintenance List RSV Vaccine(1 - 1-dose 60+ series) Never done Advance Directive Discussion Never done Depression Assessment Never done Influenza Vaccine(1) due on 12/29/2022 Covid-19 Vaccine(2022-24 season) due on 12/29/2022 DTaP,Tdap,Td Vaccine(1 - Tdap) due on 05/17/2023 Diabetes Screening due on 12/08/2025 Bone Density Screening Completed Pneumococcal Vaccine: 65+ Completed Shingrix Vaccine Discontinued ASSESSMENT/PLAN: 1. Acute on chronic congestive heart failure, unspecified heart failure type (HCC) - ICD9: 428.0, ICD10: I50.9 Patient with symptoms of continued CHF exacerbation despite higher dose of lasix. Discussed treatment at home vs returning to the ED for repeat workup and likely admission for IV diuresis. Patient does not feel comfortable returning home. Daughter will drive her to the [facility] ED. Report sent via ER Passport. Will f/u on discharge. - XR CHEST 2V FRONTAL/LAT - CBC + DIFF - COMP METABOLIC PANEL - NT PRO BNP I spent a total of 50 minutes on the date of the service which included preparing to see the patient, [id number] patient care, completing clinical documentation, obtaining and/or reviewing separately obtained history, performing a medically appropriate examination, counseling and educating the patient/family/caregiver, ordering medications, tests, or procedures, and communicating with other HCPs (not separately reported). Amalia Avery MD documented in this encounter [facility] 03-15-2023 Miscellaneous Notes Reviewed. Patient was seen in the ER 03/14/23. ER summary placed on provider's desk for review. Patient has 03/16/[address] Avery. Patient daughter Radha calling back wants mother to hear notes from Dr Avery. Went over information below and daughter wanted information put on mother my chart so she could access it for the [facility] ER. Copy and pasted to mother my chart as requested. Daughter plans to take mother to [facility] ER now. Attempted to call the patient back twice with no answer. With concern about the patient, called her emergency contact who is her daughter Radha. Explained to Radha of the conversations that have went on with her mother and the nurses and Dr. Avery's response. Pt also has a BNP level of 1066.8. Stressed the importance to Radha of taking her mother to the emergency room. She verbalizes understanding and will be going to check on her mother and get her to the ER. She needs to got to the ER for these symptoms. It sounds like she is at the very least dehydrated and would need IV fluids for rehydration and they will need to make sure they do not overload her with fluids. It is possible she could have an infection and is septic. If so, if she stays at home she could from this. Go to the ER now. Pt called and is notified of providers message and instructions. Pt voices understanding. She states Cardiology had her stop the Spirolactone about 2 weeks ago and the Entresto she stopped a week ago Sunday03/13/23. She reports that when she stopped the Entresto they increased her Lasix from 20 mg to 40 mg daily. Pt also reports she takes Metoprolol 25 mg BID, not daily. Pt denies taking the Hyzaar. Pt reports the persistently low BP with lightheadedness/dizziness, SOB, off balance when walking (gets up slowly/walks with intention), and fatigue. Pt states she vomited once yesterday afternoon, but it was after she gave blood. She hadn't eaten, the car was hot, and the movement made her sick by the time she got home. She denies passing out, and nausea/diarrhea. Pt was advise with these symptoms to got to the ER. Pt states she doesn't need to go to the ER, she has a Life Alert around her neck. She just needs to figure out what is going on with her BP. Pt would also like lab results. Please call and advise. Genesis Oliva, RN Cardiology does not have her taking Hyzaar on their med list. They have her on Metoprolol 25 mg daily instead of Cozaar. They do have her on Entresto as well as lasix 20 mg daily and spironolactone 25 mg daily. Please confirm med list with patient. If accurate, would have her hold her lasix at this time to try to improve BP. If she has persistently low BP with lightheadedness/dizziness, SOB, passing out, nausea/vomiting/diarrhea would recommend ER evaluation. Patient telephoned. Will keep appointment for 03/16. Yesterday around 10am was BP 90/72 P 90. Has not taken yet today. Labs from 03/13 printed off and placed on PCP desk. Below is all recent cardiology appointments. Scan on 02/10/2023 1:58 PM by ProviderRadha PA-C: Consultation - Cardiology Scan on 01/03/2023 9:11 AM by Radha Oconnor PA-C: Miscellaneous Clinical Documents Scan on 11/27/2022 2:25 PM by ProviderRadha PA-C: Cardiac Cath Scan on 11/14/2022 3:18 PM by ProviderRadha PA-C: Consultation - Cardiology Please obtain recent records from Dr. Brumfield's office. Keep f/u on 03/16. Has patient checked BP today? If so, what was the reading? Patient calls and states that she has been feeling tired and fatigued. Patient's blood pressure has been low with systolic being in the 90s. Dr. Gama's office is aware of this. Dr. Gama has been adjusting medications to try and bring up blood pressures. On December 14 2022 patient underwent bypass x 2. Patient is having blood work done today (ordered by Dr. Brumfield) at 3 pm. Patient is going to have Dr. Gama's office fax over results so see if provider sees any issues. Patient states that she has a history of anemia. Patient is worried that there is more wrong then just the heart issues. Patient set up appointment with Dr. Avery for 03/16/2023 to discuss. Nathalie Lerma RN documented in this encounter [facility] 02-16-2023 Telephone encounter Note [facility]: [place] [facility] [address] [facility] [address] Dept: [phone] Dept Loc: [phone] Visit type: Established patient - Virtual Reason for Visit: Post-op Follow-up Surgery/Procedure: 12/14/22: CABGx2 (PEDRAZA LAD, SVG to OM1) MVRepair (28 ring) LAAL with atriclip with Dr. Chou POD#64 Day from Discharge (12/30/22) #48 -Reviewed current meds Continue as ordered -Surgical Incisions: Per patient-healing appropriately, well approximated, no s/s of infection -Physical therapy as outlined in discharge instructions: Will discuss with Dr. Brumfield's office if she would like to do cardiac rehab in [place] -Acute Post-Operative Pain Tx plan: OTC as needed Weight restriction measures 9-12 weeks from date of surgery-30lbs weight restriction approximate end date: 03/08/23 Disposition: F/U with CTS PRN F/U with Cardiology as scheduled Patient verbalized understanding of plan and stated they would call if any questions or concerns arise. Treatment Team: PCP: Amalia Avery MD Cardiology: Dr. Brumfield Patient was seen today via Telehealth by agreement and consent. I used the following Telehealth technology: Audio capability only. Total length of call 20 minutes. The patient was offered and advised video for a more comprehensive evaluation, but the patient declined or was unable to use video. Patient location: VV Patient Location: Home. This patient encounter is appropriate and reasonable under the circumstances: transportation issues . The patient has been advised of the potential risks and limitations of this mode of treatment (including but not limited to the absence of in-person examination) and has agreed to be treated in a remote fashion in spite of them. Any and all of the patient's/patient's family's questions on this issue have been answered and I have made no promises or guarantees to the patient. The patient has also been advised to contact this office for worsening conditions or problems, and seek emergency medical treatment and/or call 911 if the patient deems either necessary. The patient stated that they are currently in the [facility]. If the patient is a minor, permission has been obtained by the parent or guardian for the patient to receive medical care at this visit. Patient identification was verified at the start of the visit: yes Total time spent on this encounter: 40 minutes Subjective: HPI: 82-year-old female seen in outpatient setting for surgical evaluation due to progressive shortness of breath with exertion. Patient with significant cardiac history: CAD ([place]-October 2018-NEGRO to LAD and LCx; November 2018-NEGRO to RCA), paroxysmal atrial fibrillation, HFrEF-30%, 2+ MR, Surgery was discussed and patient consented to intervention. She underwent surgery on 12/14/22. She required vasopressor support for multiple days post-op. Eventually weaned off and started on Heart Failure GDMT. She had swallowing difficulties and had a Dobhoff with tube feedings for a period of time. She progressed and was able to have Dobhoff removed and started on regular diet. She was denied Inpatient Rehab by her insurance and decision was made to discharge her home with family on POD#16. 02/21/23: Spoke with patient for VV follow up. She recently went home from her daughters house. She felt very good at her daughters, is more tired since going to her own home. Notes she has had many visitors this past week. She was seen at Dr. Snyder office, continues on GDMT regimen. They are planning a heart monitor for her. She states overall she is doing well. Walking and getting around without issue. Denies chest pain, SOB, leg swelling, or incisional issues. She is pleased with her care at [facility], but wishes to do any further follow up in [place] with Dr. Brumfield's office. Objective: Physical exam deferred due to virtual visit-with audio (telephone) capabilities only Labs/Imaging/Testing: reviewed EMR, see A&P for pertinent diagnostic results related to office visit Disclaimer INFORMED CONSENT:The nature and purpose of the proposed treatment or procedure have been discussed. The risks and benefits of the proposed treatment or procedures have been reviewed. Alternatives have been reviewed in addition to the risks and benefits of not receiving treatments or undergoing procedures. Pursuant to this discussion, the patient agrees to undergo the proposed treatment or procedure. Captured images seen in this note from are not a substitute for a comprehensive interpretation of the entire data set as reflected by the interpreting physician with regard to radiology, echocardiography, and other diagnostic images. This note may have been dictated using [employer] Edition 2.6 and/or [employer] Voice Recognition Feature. The document was proofread, however unrecognized voice recognition transplant registered nurse errors may be present. [facility] 02-16-2023 Miscellaneous Notes [facility]: [place] [facility] [place] [address] [facility] [address] Dept: [phone] Dept Loc: [phone] Visit type: Established patient - Virtual Reason for Visit: Post-op Follow-up Surgery/Procedure: 12/14/22: CABGx2 (PEDRAZA LAD, SVG to OM1) MVRepair (28 ring) LAAL with atriclip with Dr. Chou POD#64 Day from Discharge (12/30/22) #48 -Reviewed current meds Continue as ordered -Surgical Incisions: Per patient-healing appropriately, well approximated, no s/s of infection -Physical therapy as outlined in discharge instructions: Will discuss with Dr. Brumfield's office if she would like to do cardiac rehab in [place] -Acute Post-Operative Pain Tx plan: OTC as needed Weight restriction measures 9-12 weeks from date of surgery-30lbs weight restriction approximate end date: 03/08/23 Disposition: F/U with CTS PRN F/U with Cardiology as scheduled Patient verbalized understanding of plan and stated they would call if any questions or concerns arise. Treatment Team: PCP: Amalia Avery MD Cardiology: Dr. Brumfield Patient was seen today via Telehealth by agreement and consent. I used the following Telehealth technology: Audio capability only. Total length of call 20 minutes. The patient was offered and advised video for a more comprehensive evaluation, but the patient declined or was unable to use video. Patient location: VV Patient Location: Home. This patient encounter is appropriate and reasonable under the circumstances: transportation issues . The patient has been advised of the potential risks and limitations of this mode of treatment (including but not limited to the absence of in-person examination) and has agreed to be treated in a remote fashion in spite of them. Any and all of the patient's/patient's family's questions on this issue have been answered and I have made no promises or guarantees to the patient. The patient has also been advised to contact this office for worsening conditions or problems, and seek emergency medical treatment and/or call 911 if the patient deems either necessary. The patient stated that they are currently in the [facility]. If the patient is a minor, permission has been obtained by the parent or guardian for the patient to receive medical care at this visit. Patient identification was verified at the start of the visit: yes Total time spent on this encounter: 40 minutes Subjective: HPI: 82-year-old female seen in outpatient setting for surgical evaluation due to progressive shortness of breath with exertion. Patient with significant cardiac history: CAD ([place]-October 2018-NEGRO to LAD and LCx; November 2018-NEGRO to RCA), paroxysmal atrial fibrillation, HFrEF-30%, 2+ MR, Surgery was discussed and patient consented to intervention. She underwent surgery on 12/14/22. She required vasopressor support for multiple days post-op. Eventually weaned off and started on Heart Failure GDMT. She had swallowing difficulties and had a Dobhoff with tube feedings for a period of time. She progressed and was able to have Dobhoff removed and started on regular diet. She was denied Inpatient Rehab by her insurance and decision was made to discharge her home with family on POD#16. 02/21/23: Spoke with patient for VV follow up. She recently went home from her daughters house. She felt very good at her daughters, is more tired since going to her own home. Notes she has had many visitors this past week. She was seen at Dr. Snyder office, continues on GDMT regimen. They are planning a heart monitor for her. She states overall she is doing well. Walking and getting around without issue. Denies chest pain, SOB, leg swelling, or incisional issues. She is pleased with her care at [facility], but wishes to do any further follow up in [place] with Dr. Brumfield's office. Objective: Physical exam deferred due to virtual visit-with audio (telephone) capabilities only Labs/Imaging/Testing: reviewed EMR, see A&P for pertinent diagnostic results related to office visit Disclaimer INFORMED CONSENT:The nature and purpose of the proposed treatment or procedure have been discussed. The risks and benefits of the proposed treatment or procedures have been reviewed. Alternatives have been reviewed in addition to the risks and benefits of not receiving treatments or undergoing procedures. Pursuant to this discussion, the patient agrees to undergo the proposed treatment or procedure. Captured images seen in this note from are not a substitute for a comprehensive interpretation of the entire data set as reflected by the interpreting physician with regard to radiology, echocardiography, and other diagnostic images. This note may have been dictated using [employer] Medical Practice Edition 2.6 and/or [employer] Voice Recognition Feature. The document was proofread, however unrecognized voice recognition transplant registered nurse errors may be present. documented in this encounter [facility] 01-09-2023 History of Present illness Narrative Images from the original note were not included. [facility]: [place] [facility] [place] [address] [facility] [address] Dept: [phone] Dept Loc: [phone] Visit type: Established patient Reason for Visit: Post-op Assessment and Plan 1. Coronary artery disease involving [place] coronary artery of [place] heart with angina pectoris (HCC) 2. Ischemic cardiomyopathy 3. Mitral valve insufficiency, unspecified etiology 4. S/P CABG (coronary artery bypass graft) 5. S/P MVR (mitral valve repair) 12/14/22: CABGx2 (PEDRAZA LAD, SVG to OM1) MVRepair (28 ring) LAAL with atriclip with Dr. Chou POD#26 Day from Discharge (12/30/22) #10 -Reviewed current meds: - ASA/Statin/Toprol XL 25mg - Entresto 24-26mg, Aldactone 25mg, Farxiga 10mg - Apixaban 5mg BID - med rec completed, no changes to medications -Surgical Incisions: healing appropriately, well approximated, no s/s of infection. -Physical therapy as outlined in discharge instructions.Not ready for Cardiac Rehab and Not ready to drive. -Acute Post-Operative Pain controlled. Patient no longer taking narcotic opioid medication. Tx plan: Over The Counter-Tylenol (acetaminophen) 500 mg 1-2 tablets every 6 hours. No more than 4,000 mg in 24 hour period. Weight restriction measures 1-4 weeks from date of surgery- 10lbs weight restriction: 01/11/23 5-8 weeks from date of surgery- 20lbs weight restriction: 02/08/23 9-12 weeks from date of surgery-30lbs weight restriction approximate end date: 03/08/23 Disposition: F/U with CTS in 2 weeks for VV F/U with Cardiology (Dr. Moriah Moreno) - 02/09/23 Patient verbalized understanding of plan and stated they would call if any questions or concerns arise. Treatment Team: PCP: Amalia Avery MD Subjective HPI: 82-year-old female seen in outpatient setting for surgical evaluation due to progressive shortness of breath with exertion. Patient with significant cardiac history: CAD ([place]-October 2018-NEGRO to LAD and LCx; November 2018-NEGRO to RCA), paroxysmal atrial fibrillation, HFrEF-30%, 2+ MR, Surgery was discussed and patient consented to intervention. She underwent surgery on 12/14/22. She required vasopressor support for multiple days post-op. Eventually weaned off and started on Heart Failure GDMT. She had swallowing difficulties and had a Dobhoff with tube feedings for a period of time. She progressed and was able to have Dobhoff removed and started on regular diet. She was denied Inpatient Rehab by her insurance and decision was made to discharge her home with family on POD#16. 01/09/23: Patient seen for postop follow up. She is staying with her daughter & son-in-law. She is doing a 5min walk 3x daily and short walk every 1-2 hrs. Using a rollator for balance. She denies SOB, leg swelling, incisional issues, or CP. She is sleeping in a recliner, but will start to try to sleep in the bed. She is having intermittent trouble swallowing, denies any choking. Discussed she may need further workup for swallowing issues if dysphagia continues. She is continuing to improve, although her recovery is slower than what she hoped for. Review of Systems Constitutional: Positive for activity change, appetite change and fatigue. Negative for diaphoresis and fever. Respiratory: Negative for cough, shortness of breath and wheezing. Cardiovascular: Negative for chest pain, palpitations and leg swelling. Gastrointestinal: Negative for abdominal distention, constipation and diarrhea. Skin: Negative for color change, pallor and rash. Allergies Allergen Reactions Morphine Other reaction(s): GI Upset, Vomiting vomiting Outpatient Medications Prior to Visit Medication Sig Dispense Refill acyclovir (Zovirax) 800 MG tablet Take 800 mg by mouth daily. apixaban (Eliquis) 5 MG tablet Take 5 mg by mouth 2 times daily. aspirin 81 MG EC tablet Take 81 mg by mouth in the morning. atorvastatin (Lipitor) 20 MG tablet Take 20 mg by mouth Nightly. dapagliflozin (Farxiga) 10 MG Take 10 mg by mouth daily (with breakfast). difluprednate (Durezol) 0.05 % ophthalmic solution Administer 1 drop into the left eye every other day. ERYTHROMYCIN EX Apply topically. Ointement for eye furosemide (Lasix) 40 MG tablet Take 1 tablet (40 mg) by mouth daily. Hold for 3 days, restart to take daily on 01/02/23. 30 tablet 2 metoprolol succinate XL (Toprol-XL) 25 MG 24 hr tablet Take 1 tablet (25 mg) by mouth daily. Do not crush or chew. 30 tablet 2 NON FORMULARY Eye health complex omeprazole (PriLOSEC) [address] capsule Take 40 mg by mouth in the morning. potassium chloride (Klor-Con) 20 MEQ packet Take 20 mEq by mouth daily. Hold while not taking lasix (3 days). Restart to take daily on 01/02/23. 30 packet 2 spironolactone (Aldactone) 25 MG tablet Take 1 tablet (25 mg) by mouth daily. Do not start before December 31, 2022. 30 tablet 2 timolol (Timoptic) 0.5 % ophthalmic solution Administer 1 drop into the left eye in the morning and 1 drop in the evening. acetaminophen (Tylenol) 500 MG tablet Take 2 tablets (1,000 mg) by mouth in the morning and 2 tablets (1,000 mg) at noon and 2 tablets (1,000 mg) before bedtime. Do all this for 14 days. 84 tablet 0 sacubitril-valsartan (Entresto) 24-26 MG tablet Take 1 tablet by mouth in the morning and 1 tablet in the evening. oxyCODONE (Roxicodone) 5 MG immediate release tablet Take 1 tablet (5 mg) by mouth every 6 hours as needed for moderate pain (4-6) or severe pain (7-10) for up to 5 days. 20 tablet 0 No facility-administered medications prior to visit. Past Medical History: Diagnosis Date Anxiety Atherosclerosis of coronary artery bypass graft of [place] heart without angina pectoris Chronic kidney disease GERD (gastroesophageal reflux disease) Hypertension Ischemic cardiomyopathy Mobitz type II atrioventricular block STEMI (ST elevation myocardial infarction) ([facility]) 11/16/2018 Stroke ([facility]) Vertigo Objective Patient reported: No flowsheet data found. Vitals: 01/09/23 0951 BP: 118/53 Pulse: 102 Wt Readings from Last 3 Encounters: 01/09/23 162 lb 3.2 oz (73.6 kg) 12/30/22 163 lb 3.2 oz (74 kg) 12/08/22 169 lb 9.6 oz (76.9 kg) Physical Exam Cardiovascular: Rate and Rhythm: Normal rate and regular rhythm. Heart sounds: Normal heart sounds. Pulmonary: Effort: Pulmonary effort is normal. Breath sounds: Normal breath sounds. No decreased breath sounds. Abdominal: General: Bowel sounds are normal. Palpations: Abdomen is soft. Tenderness: There is no abdominal tenderness. Musculoskeletal: Right lower leg: No edema. Left lower leg: No edema. Skin: General: Skin is warm and dry. Comments: Surgical Incisions: well approximate; clean dry with no drainage noted. Surrounding skin no redness, warmth, or signs of infection noted. Neurological: Mental Status: She is alert and oriented to person, place, and time. Data Reviewed and Summarized Labs/Imaging/Testing: reviewed EMR, see A&P for pertinent diagnostic results related to office visit GRIS Peguero CNP documented in this encounter [facility] 12-30-2022 Note Patient Choice Patient Name: DAYANA QUIÑONES Date of : 1940 All Providers Sent Referral Name: [facility] Phone: [phone] Address: [address] [place] [address] 12-30-2022 Miscellaneous Notes Patient Choice Patient Name: DAYANA QUIÑONES Date of : 1940 All Providers Sent Referral Name: [facility] Phone: [phone] Address: [address] [place] [address] Start PACC Note Home Health Referral Educated patient and dtr on Home Care and services available. Patient offered choice of available HHC and agreeable to RN PT OT services with [facility]. Care Types: None Isolation Precautions: No active isolations Social Determinates of Health: Tobacco Use: Medium Risk (12/22/2022) Patient History Smoking Tobacco Use: Former Smokeless Tobacco Use: Never Passive Exposure: Not on file Social History Substance and Sexual Activity Alcohol Use Never Social History Substance and Sexual Activity Drug Use Never Does the patient have any financial resource strain? No Does the patient have any food insecurities? No Does the patient have any housing instabilities? No If any of the above is noted as yes - consider a ADMINISTRATIVE STAFF SUPERVISOR evaluation once the patient returns home. START PATIENT REGISTRATION INFORMATION Order Information Order Signing Physician: Danielle Chou MD Service Ordered RN ?: Yes Service Ordered PT ?: Yes Service Ordered OT ?: Yes Service Ordered ST ?: No Service Ordered ADMINISTRATIVE STAFF SUPERVISOR?:No Service Ordered CUSTOMS OPENER VERIFIER PACKER?: No Following Physician: Dr Danielle Chou Following Physician Overseeing Physician: Dr Danielle Chou (Required for Residents only) Agreeable to Follow? Yes Date/Time of Call 12/29/22 11:32 AM Care Coordination Same Day SOC?: No Primary Care Physician: Amalia Avery MD Primary Care Physician Primary Care Physician Address: [address] [facility] [id number] Visit Instructions: N/A Service Discharge Location Type: Home with Home Health Care Service Facility Name: N/A Service Floor Facility: N/A Service Room No: N/A Demographics Patient Last Name: Nuria Patient First Name: Dayana Language/Communication Barrier: n/a Service Address: [address] [place] [address] Service City: [place] Service ST: [place] Service ZIP: [address] Service Other phone numbers: Telephone Information: Emergency Contact: Extended Emergency Contact Information Primary Emergency Contact: Radha Huizar Mobile Relation: Daughter Secondary Emergency Contact: Masha Olivarez Mobile Relation: Daughter Admission Information Admit Date: 12/14/2022 Patient status at discharge: Inpatient Admitting Diagnosis Atherosclerotic heart disease of [place] coronary artery without angina pectoris [I25.10] Nonrheumatic aortic (valve) stenosis [I35.0] CAD in [place] artery [I25.10] Caregiver Information Caregiver First Name: n/a Caregiver Last Name: n/a Caregiver Relationship to Patient n/a Caregiver Phone Number: n/a Caregiver Notes: N/A LogicLadder-Tech List No END PATIENT REGISTRATION INFORMATION Pt Home Health goal rehab at [facility] home COVID Status 1. Do you have any upper respiratory symptoms (cough, SOB, Fever)? No 2. Have you been exposed to anyone with COVID-19 Virus? No Answer only if pending or positive for COVID-19? 1. Agreeable to wear PPE at each visit? N/a 2. Is the hospital supplying them with PPE upon Discharge? N/a Start PACC Summary General Report/ Additional Comments [facility] appeal denied - going to stay with dtr-Juani [phone] Discharge Date: 12/30/22 Referral Source-PACC: (Hospital/Unit): [facility] / T1-114/T1-114 A End PACC Note Images from the original note were not included. Care Management Progress Note P2P completed and upheld, offered appeal but will take 72 business hours. Spoke with patient's daughter Juani over the phone, based on updated PT recommendations agreeable to patient discharging to her home with [facility]. DME orders received, MURGUIA PACC updated, plan dc tomorrow, patient updated. Discharge Milestones and Delays Expected Date/Time: 12/30/[address] discharge order Complete med reconciliation Case mgmt discharge readiness Clinical Stability Diagnsotic Workup Expected Discharge History Expected Date/Time Set By Reviewed At 12/30/2022 Jessica Jaramillo RN 12/29/2022 11:19 AM 12/29/2022 Jessica aJramillo RN 12/28/2022 10:18 AM [facility] auth pending 12/28/2022 Jessica Jaramillo RN 12/27/2022 10:09 AM 12/27/2022 Jessica Jaramillo RN 12/26/2022 7:47 AM 12/27/2022 Jessica Jaramillo RN 12/25/2022 9:10 AM 12/25/2022 Jessica Jaramillo RN 12/22/2022 9:41 AM 12/25/2022 Jessica Jaramillo RN 12/21/2022 10:37 AM 12/22/2022 Naheed Fernandez RN 12/20/2022 8:15 AM IPR choice pending 12/22/2022 Naheed Fernandez RN 12/20/2022 8:15 AM 12/21/2022 Naheed Fernandez, MANAS 12/19/2022 7:30 AM 12/19/2022 Naheed Fernandez RN 12/18/2022 10:11 AM 12/19/2022 Jessica Jaramillo RN 12/15/2022 10:02 AM 12/19/2022 Jan Rebollar APRN - JOELLE 12/14/2022 1:03 PM 12/19/2022 Jan Rebollar APRN - JOELLE 12/14/2022 1:00 PM 12/21/2022 Jim Florian ADDICTION MEDICINE PHYSICIAN - SHELLFISH PROCESSING MACHINE TENDER 12/14/2022 5:47 AM Length of Stay (Days): 15 GMLOS: 5.9 Notified by [facility] liaison patient insurance [employer] has denied admission to [facility] but offering a P2P. CTS SAP BASIS attempted to schedule N4O-vup to leave a message. Updated patient at bedside and daughter Juani over the phone, discussed potential back up plan with each as well. Will await P2P. Images from the original note were not included. Care Management Progress Note Patient remains on HLU s/p MV repair and CABG x 2 POD # 14. Medically ready for discharge, precert to [facility] pending. Discharge Milestones and Delays Expected Date/Time: 12/29/[address] discharge order Complete med reconciliation Case mgmt discharge readiness Clinical Stability Diagnsotic Workup Expected Discharge History Expected Date/Time Set By Reviewed At 12/29/2022 Jessica Jaramillo RN 12/28/2022 10:18 AM [facility] auth pending 12/28/2022 Jessica Jaramillo RN 12/27/2022 10:09 AM 12/27/2022 Jessica Jaramillo RN 12/26/2022 7:47 AM 12/27/2022 Jessica Jaramillo RN 12/25/2022 9:10 AM 12/25/2022 Jessica Jaramillo RN 12/22/2022 9:41 AM 12/25/2022 Jessica Jaramillo RN 12/21/2022 10:37 AM 12/22/2022 Naheed Fernandez RN 12/20/2022 8:15 AM IPR choice pending 12/22/2022 Naheed Fernandez RN 12/20/2022 8:15 AM 12/21/2022 Naheed Fernandez RN 12/19/2022 7:30 AM 12/19/2022 Naheed Fernandez RN 12/18/2022 10:11 AM 12/19/2022 Jessica Jaramillo RN 12/15/2022 10:02 AM 12/19/2022 Jan Rebollar, ADDICTION MEDICINE PHYSICIAN - SHELLFISH PROCESSING MACHINE TENDER 12/14/2022 1:03 PM 12/19/2022 Jan Rebollar, ADDICTION MEDICINE PHYSICIAN - SHELLFISH PROCESSING MACHINE TENDER 12/14/2022 1:00 PM 12/21/2022 Jim Florian, ADDICTION MEDICINE PHYSICIAN - [facility] 12/14/2022 5:47 AM Length of Stay (Days): 14 GMLOS: 5.9 Images from the original note were not included. Care Management Progress Note Patient remains on HLU s/p MV repair and CABG x 2 POD # 13. Precert started to [facility] 12/26. Discharge Milestones and Delays Expected Date/Time: 12/28/[address] discharge order Complete med reconciliation Case mgmt discharge readiness Clinical Stability Diagnsotic Workup Expected Discharge History Expected Date/Time Set By Reviewed At 12/28/2022 Jessica Jaramillo RN 12/27/2022 10:09 AM [facility] auth pending 12/27/2022 Jessica Jaramillo RN 12/26/2022 7:47 AM 12/27/2022 Jessica Jaramillo RN 12/25/2022 9:10 AM 12/25/2022 Jessica Jaramillo RN 12/22/2022 9:41 AM 12/25/2022 Jessica Jaramillo RN 12/21/2022 10:37 AM 12/22/2022 Naheed Fernandez RN 12/20/2022 8:15 AM IPR choice pending 12/22/2022 Naheed Fernandez RN 12/20/2022 8:15 AM 12/21/2022 Naheed Fernandez RN 12/19/2022 7:30 AM 12/19/2022 Naheed Fernandez RN 12/18/2022 10:11 AM 12/19/2022 Jessica Jaramillo RN 12/15/2022 10:02 AM 12/19/2022 Jan Rebollar, ADDICTION MEDICINE PHYSICIAN - SHELLFISH PROCESSING MACHINE TENDER 12/14/2022 1:03 PM 12/19/2022 Jan Rebollar, ADDICTION MEDICINE PHYSICIAN - SHELLFISH PROCESSING MACHINE TENDER 12/14/2022 1:00 PM 12/21/2022 Jim Florian, ADDICTION MEDICINE PHYSICIAN - SHELLFISH PROCESSING MACHINE TENDER 12/14/2022 5:47 AM Length of Stay (Days): 13 GMLOS: 5.9 Images from the original note were not included. Care Management Progress Note Patient remains on HLU s/p MV repair and CABG x 2 POD # 12. VSS, on RA, paced on tele, passed speech eval-NG removed-now on soft bite sized diet with mildly thick liquids and PT recommending IPR-awaiting updated OT note in order to start precert to [facility]. Spoke with patient at bedside and daughter Juani over the phone to update on process. Discharge Milestones and Delays Expected Date/Time: 12/27/[address] discharge order Complete med reconciliation Case mgmt discharge readiness Clinical Stability Diagnsotic Workup Expected Discharge History Expected Date/Time Set By Reviewed At 12/27/2022 Jessica Jaramillo RN 12/26/2022 7:47 AM 12/27/2022 Jessica Jaramillo RN 12/25/2022 9:10 AM 12/25/2022 Jessica Jaramillo RN 12/22/2022 9:41 AM 12/25/2022 Jessica Jaramillo RN 12/21/2022 10:37 AM 12/22/2022 Naheed Fernandez RN 12/20/2022 8:15 AM IPR choice pending 12/22/2022 Naheed Fernandez RN 12/20/2022 8:15 AM 12/21/2022 Naheed Fernandez RN 12/19/2022 7:30 AM 12/19/2022 Naheed Fernandez RN 12/18/2022 10:11 AM 12/19/2022 Jessica Jaramillo RN 12/15/2022 10:02 AM 12/19/2022 Jan Rebollar, ADDICTION MEDICINE PHYSICIAN - SHELLFISH PROCESSING MACHINE TENDER 12/14/2022 1:03 PM 12/19/2022 Jan Rebollar ADDICTION MEDICINE PHYSICIAN - SHELLFISH PROCESSING MACHINE TENDER 12/14/2022 1:00 PM 12/21/2022 Jim Florian ADDICTION MEDICINE PHYSICIAN - SHELLFISH PROCESSING MACHINE TENDER 12/14/2022 5:47 AM Length of Stay (Days): 12 GMLOS: 5.9 Images from the original note were not included. Care Management Progress Note Patient remains on HLU s/p MV repair and CABG x 2 POD # 11. On Ra, BP on low side but stable, paced rhythm, awaiting speech re-eval, and PTOT recommending IPR. Plan [facility] when medically ready. Discharge Milestones and Delays Expected Date/Time: 12/27/[address] discharge order Complete med reconciliation Case mgmt discharge readiness Clinical Stability Diagnsotic Workup Expected Discharge History Expected Date/Time Set By Reviewed At 12/27/2022 Jessica Jaramillo RN 12/25/2022 9:10 AM 12/25/2022 Jessica Jaramillo RN 12/22/2022 9:41 AM 12/25/2022 Jessica Jaramillo RN 12/21/2022 10:37 AM 12/22/2022 Naheed Fernandez RN 12/20/2022 8:15 AM IPR choice pending 12/22/2022 Naheed Fernandez RN 12/20/2022 8:15 AM 12/21/2022 Naheed Fernandez RN 12/19/2022 7:30 AM 12/19/2022 Naheed Fernandez RN 12/18/2022 10:11 AM 12/19/2022 Jessica Jaramillo RN 12/15/2022 10:02 AM 12/19/2022 Jan Rebollar APRN [facility] 12/14/2022 1:03 PM 12/19/2022 Jan Rebollar ADDICTION MEDICINE PHYSICIAN [facility] 12/14/2022 1:00 PM 12/21/2022 Jim Florian ADDICTION MEDICINE PHYSICIAN [facility] 12/14/2022 5:47 AM Length of Stay (Days): 11 GMLOS: 5.9 Images from the original note were not included. Care Management Progress Note Patient remains on HLU s/p MV repair and CABG x 2 POD # 8. VSS, on RA, V-paced on tele, titrate BB, heart failure signed off, MBSS completed-speech to complete a soft and bite sized with nectar liquids training meal, and PT recommending IPR. Patient and family agreeable to [facility], anticipate ready early next week. Discharge Milestones and Delays Expected Date/Time: 12/25/[address] discharge order Complete med reconciliation Case mgmt discharge readiness Clinical Stability Diagnsotic Workup Expected Discharge History Expected Date/Time Set By Reviewed At 12/25/2022 Jessica Jaramillo RN 12/22/2022 9:41 AM 12/25/2022 Jessica Jaramillo RN 12/21/2022 10:37 AM 12/22/2022 Naheed Fernandez RN 12/20/2022 8:15 AM IPR choice pending 12/22/2022 Naheed Fernandez RN 12/20/2022 8:15 AM 12/21/2022 Naheed Fernandez RN 12/19/2022 7:30 AM 12/19/2022 Nahede Fernandez RN 12/18/2022 10:11 AM 12/19/2022 Jessica Jaramillo RN 12/15/2022 10:02 AM 12/19/2022 GRIS Baca CNP 12/14/2022 1:03 PM 12/19/2022 GRIS Baca CNP 12/14/2022 1:00 PM 12/21/2022 GRIS Birmingham CNP 12/14/2022 5:47 AM Length of Stay (Days): 8 GMLOS: 5.9 Images from the original note were not included. Care Management Progress Note Patient remains on HLU s/p MV repair and CABG x 2 POD # 7. VSS, on RA, V-paced, BB adjusted, heart failure following, speech following-continuing TF's-will need repeat MBSS tomorrow, and PT recommending IPR. Patient and family agreeable to [facility], anticipate next week. Discharge Milestones and Delays Expected Date/Time: 12/25/[address] discharge order Complete med reconciliation Case mgmt discharge readiness Clinical Stability Diagnsotic Workup Expected Discharge History Expected Date/Time Set By Reviewed At 12/25/2022 Jessica Jaramillo RN 12/21/2022 10:37 AM 12/22/2022 Naheed Fernandez RN 12/20/2022 8:15 AM IPR choice pending 12/22/2022 Naheed Fernandez RN 12/20/2022 8:15 AM 12/21/2022 Naheed Fernandez RN 12/19/2022 7:30 AM 12/19/2022 Naheed Fernandez RN 12/18/2022 10:11 AM 12/19/2022 Jessica Jaramillo RN 12/15/2022 10:02 AM 12/19/2022 GRIS Baca CNP 12/14/2022 1:03 PM 12/19/2022 GRIS Baca CNP 12/14/2022 1:00 PM 12/21/2022 GRIS Birmingham CNP 12/14/2022 5:47 AM Length of Stay (Days): 7 GMLOS: 5.9 Problem: Pain - Adult Goal: Verbalizes/displays adequate comfort level or baseline comfort level Outcome: Progressing Problem: Safety - Adult Goal: Free from fall injury Outcome: Progressing Problem: Discharge Planning Goal: Discharge to home or other facility with appropriate resources Outcome: Progressing Problem: Chronic Conditions and Co-morbidities Goal: Patient's chronic conditions and co-morbidity symptoms are monitored and maintained or improved Outcome: Progressing Problem: Knowledge Deficit Goal: Patient/family/caregiver demonstrates understanding of disease process, treatment plan, medications, and discharge instructions Outcome: Progressing Problem: Potential for Compromised Skin Integrity Goal: Skin Integrity is Maintained or Improved Outcome: Progressing Problem: Potential for Compromised Skin Integrity Goal: Nutritional status is improving Outcome: Progressing Problem: Urinary Incontinence Goal: Perineal skin integrity is maintained or improved Outcome: Progressing Problem: Problem Interventions Goal: Assess Nutritional Intake Outcome: Progressing Images from the original note were not included. Care Management Progress Note Chart reviewed. Pt remains on HLU s/p CABGx2. AIR POLLUTION INSPECTOR following, recommending NPO, dobhoff in place, repeat MBSS at end of week. Ongoing medication adjustments. Discharge Plan: PT recommending IPR, pt wants daughters to decide facility, spoke with daughter Juani over the phone, Radha and Juani would like referral to [facility]. Referral placed in [facility], liaison notified. TCC will continue to follow with SW. Discharge Milestones and Delays Expected Date/Time: 12/22/[address] discharge order Complete med reconciliation Case mgmt discharge readiness Clinical Stability Diagnsotic Workup Expected Discharge History Expected Date/Time Set By Reviewed At 12/22/2022 Naheed Fernandez RN 12/20/2022 8:15 AM IPR choice pending 12/22/2022 Naheed Fernandez RN 12/20/2022 8:15 AM 12/21/2022 Naheed Fernandez RN 12/19/2022 7:30 AM 12/19/2022 Naheed Fernandez RN 12/18/2022 10:11 AM 12/19/2022 Jesisca Jaramillo, MANAS 12/15/2022 10:02 AM 12/19/2022 Jan Rebollar APRN - JOELLE 12/14/2022 1:03 PM 12/19/2022 Jan Rebollar APRN - SHELLFISH PROCESSING MACHINE TENDER 12/14/2022 1:00 PM 12/21/2022 Jim Florian APRN - SHELLFISH PROCESSING MACHINE TENDER 12/14/2022 5:47 AM Length of Stay (Days): 6 GMLOS: 5.9 Images from the original note were not included. Care Management Progress Note Chart reviewed. Pt remains on HLU s/p CABGx2. AIR POLLUTION INSPECTOR following, dobhoff while NPO. Discharge Plan: PT recommending IPR. Spoke with pt at bedside, daughter will be in later, provided facility list for pt and daughter to review. TCC will continue to follow with SW. Discharge Milestones and Delays Expected Date/Time: 12/21/[address] discharge order Complete med reconciliation Case mgmt discharge readiness Clinical Stability Diagnsotic Workup Expected Discharge History Expected Date/Time Set By Reviewed At 12/21/2022 Naheed Fernandez RN 12/19/2022 7:30 AM 12/19/2022 Naheed Fernandez RN 12/18/2022 10:11 AM 12/19/2022 Jessica Jaramillo, MANAS 12/15/2022 10:02 AM 12/19/2022 Jan Rebollar APRN - JOELLE 12/14/2022 1:03 PM 12/19/2022 Jan Rebollar APRN - JOELLE 12/14/2022 1:00 PM 12/21/2022 Jim Florian APRN - SHELLFISH PROCESSING MACHINE TENDER 12/14/2022 5:47 AM Length of Stay (Days): 5 GMLOS: 5.9 Care Managment Initial Assessment Date: 12/15/2022 Patient Name: Dayana Quiñones : 1940 Patient Information Source of Information: Patient, Patient Structural Biologist Name/Contact Information: juliana Gloria at bedside Cognition/Language: WFL - Within Functional Limits Permission given to speak with patient digital sales representative/caregiver as indicated: Yes Confirmation of Payer with patient/family: Yes Payer Name: Kimmie : No Confirmation of Primary Care Physician: Confirmed PCP Name: Dr. Avery Seen in last 2 years?: Yes Primary Caregiver: Self If assistance needed, confirmed caregiver ready, willing and able to care for patient at discharge: Confirmed with: Living Arrangements Current Residence: House Number of Floors 1 Number of Entry Steps: 3 Bed/Bath Levels: Both first floor Facility: Facility Name: Plan to Return: Lives with: Alone Support Systems: Children, Family members Activities of Daily Living Ambulation: Independent Bathing/Dressing: Independent Elimination/Continence/Toileting: Independent Feeding: Independent Who Assists with Activities of Daily Living: Instrumental Activities of Daily Living Prescription Coverage: Yes Pharmacy Used: [facility] Medication Management: Independent Transportation/Shopping: Independent Transportation Mode: Car Needs Assistance with Transportation at Discharge: No Meal Preparation: Independent Laundry/Cleaning: Independent Finances/Bill Paying: Independent Communication: Independent Types of Care Services/Equipment Utilized Care Services: Dialysis Type: Durable Medical Equipment: Patient's Goal/Discharge Plan Patient expects to be discharged to: juliana [facility]'s house in [place] Discharge Planning Actions: Continue to follow Patient's Choice Rights and [employer] and Collaborative Relationships Disclosed as Indicated for Post-Acute Care: Interdisciplinary Team Engagement: PT/OT, Home Health Care Social Work Referral for: Additional Information: Patient admitted to HLU s/p MV repair and CABG x 2 POD # 1. Spoke with patient and daughter at bedside, introduced self and role. Patient from home alone and independent prior to OR, has PCP and prescription coverage, will have a ride home and discussed HHC vs potential need for SNF/IPR after being assessed by therapy-daughter aware of both options and agreeable. SHANTAL pyle. Jessica Jaramillo RN Jig Borer following case for Discharge Needs. Date of service: 12/14/2022 Preoperative diagnosis: Coronary artery disease Moderate to severe mitral regurgitation Ischemic cardiomyopathy, heart failure reduced ejection fraction Postoperative diagnosis: Coronary artery disease Moderate to severe mitral regurgitation Ischemic cardiomyopathy, heart failure reduced ejection fraction Procedures: 1. Coronary artery bypass grafting x 2 - Left internal mammary artery to the left anterior descending - Saphenous vein graft to the obtuse marginal 2. Mitral valve repair, 28 SJM annuloplasty ring 3. Endoscopic vein harvest, left lower extremity 4. Left atrial appendage clip placement Surgeon: Danielle Chou MD Vice Chair: Genesis Chacon SA Estimated blood loss: Unable to estimate given the nature of the case. Complications: None Specimen: None Findings: Functional mitral regurgitation Indications: This is an 82 year old female diagnosed with CAD and moderate to severe mitral regurgitation. She is currently symptomatic with dyspnea on exertion. The risks and benefits of the operation has been discussed in detail and previously documented. Procedural detail: The patient was brought to the operating room placed supine on the operating table. An endotracheal tube was placed, an arterial line was placed, an introducer and a pulmonary arterial catheter were placed by the anesthesia team. A Colón catheter was placed. Preoperative antibiotics and beta amaury were administered and documented. Incision, sternotomy, and conduit harvest/preparation: A midline sternotomy incision was utilized in standard fashion. The sternum was divided with the oscillating saw. The left internal mammary artery was taken down with clips and bovie cauterization. The left lower extremity saphenous vein was harvested via the endoscopic approach. The patient was fully heparinized prior to dividing and prepping the mammary. Cannulation and cardiopulmonary bypass: Cannulation ensued with the cannulas listed below. After adequate heparinization was confirmed by an ACT level, cardiopulmonary bypass was instituted. Ascending aortic cross-clamp was applied and cardioplegia (microplegia) was administered till the heart was arrested in diastole. Cardioplegia was administered every 20 minutes while the ascending aorta was cross-clamped. The superior and inferior vena cava were encircled snared with umbilical tapes while the atrial cavities were open. Aortic canula: 21 Fr soft flow angled cannula in distal ascending aorta Venous canula: 27F [employer] cannula via right common femoral vein Cardioplegia: Antegrade via cannula in the mid ascending aorta. Vent cannulas: Root vent via DLP, 16 Fr left heart vent via right superior pulmonary vein Left atrial appendage clip placement: The heart was retracted to the right to fully expose the left atrial appendage. A 35 mm clip was deployed at the base of the left atrial appendage using the AtriClip flex device. Coronary artery bypass: Saphenous vein conduit bypasses were performed to the obtuse marginal 1. The left internal mammary artery was anastomosed to the LAD using 7-0 Prolene. Mitral valve repair: Using an extended trans-septal approach, exposure was achieved and adequate using mitral retractors. The mitral valve annulus was mildly dilated and without leaflet coaptation. Bebe annular stitches were placed. The valve annulus was sized and a size 28 ring was placed. The sutures were secured using a total of 11 Cor Knots. All pledgets were visible when the valve was seated prior to securing the Cor Knots. The intra-atrial septum and right atrium was closed using pledgeted 4-0 Prolene in layers. CPB wean and decannulation: The patient was given a dose of warm blood cardioplegia. Valsalva breaths were mechanically administered and the aorta was unclamped while the patient was positioned in Trendelenburg. A ventricular pacing wire was placed. The heart was de-aired with the root vent and left heart vent. The patient was rewarmed and weaned from cardiopulmonary bypass support without difficulty. Protamine was administered and all cannulas were removed. Two 24 Fr rachel drains were placed, one in the left pleural space and one in the mediastinum. Closure: Hemostasis was achieved. The sternum and incision were closed with sternal wires, running 0, 2-0 and 4-0 stitches. Dressings applied, and the patient was transferred to the cardiovascular intensive care unit in stable condition. Cardiopulmonary bypass time: 138 minutes Cross clamp time: 121 minutes Intra-op ELA: Reduced EF, mild MR post mitral ring placement Danielle Chou MD Cardiothoracic Surgery documented in this encounter [facility] 12-30-2022 Nurse Note RN reviewed discharge instructions and medications with patient, and patient's family, at the bedside. Both patient and patient's family verbalized understanding and stated no further questions at this time. IV removed & belongings packed. Patient dressed and wheeled out to car for discharge home now. documented in this encounter [facility] 12-30-2022 Note Discharge Summary: C ardiothoracic Surgery Dayana Maell, 82 y.o., 1940 ADMIT DATE: 12/14/2022 DISCHARGE DATE: 12/30/2022 DISCHARGING SURGEON: Danielle Chou MD, Office Number: [phone] PRIMARY CARE PHYSICIAN: Amalia Avery MD TREATMENT TEAM: Batching Operator: Dr. Brumfield VISIT STATUS: Admission CODE STATUS: Full Code SURGERY: 12/14/22: CABGx2 (PEDRAZA LAD, SVG to OM1) MVRepair (28 ring) LAAL with atriclip with Dr. Chou HOSPITAL COURSE: 82-year-old female seen in outpatient setting for surgical evaluation due to progressive shortness of breath with exertion. Patient with significant cardiac history: CAD ([place]-October 2018-NEGRO to LAD and LCx; November 2018-NEGRO to RCA), paroxysmal atrial fibrillation, HFrEF-30%, 2+ MR, Surgery was discussed and patient consented to intervention. She underwent surgery on 12/14/22. She required vasopressor support for multiple days post-op. Eventually weaned off and started on Heart Failure GDMT. She had swallowing difficulties and had a Dobhoff with tube feedings for a period of time. She progressed and was able to have Dobhoff removed and started on regular diet. She was denied Inpatient Rehab by her insurance and decision was made to discharge her home with family on POD#16. DIAGNOSTICS: BP 79/50 Pulse 78 Temp 36.3 ?C (97.4 ?F) (Temporal) Resp 19 Ht 5' 3 (1.6 m) Wt 163 lb 3.2 oz (74 kg) SpO2 100% PF 55 L/min BMI 28.91 kg/m? Recent Labs 12/28/22 0649 CREATININE 1.08* HGB 10.5* PLT 296 WBC 12.4* NA 135 K 4.4 DISCHARGE DIAGNOSES: CAD s/p CABG x2 Moderate to Severe MR s/p MVRepair HFrEF HTN TRINI on CKD, Mild CKD GERD S/p PPM 08/02/2018 ([employer]) Hx Stroke Paroxsymal Afib/mobitz type II AV block Anxiety Dysphagia Post operative Pulm Management: Normal Post-operative Course Acute blood loss anemia/consumptive thrombocytopenia -GDMT for HF. -Lasix daily and K supplement held for 3 days. -On day of DC, patient complaining of feeling dry, BP soft. No lightheadedness/dizziness. Discussion had and plan to hold lasix and K supplement for 3 days, then resume daily. Patient to monitor weight and signs of swelling. Patient and family all agreeable. -Oxy for 7 days. DISCHARGE MEDICATIONS: Medication List START taking these medications acetaminophen 500 MG tablet Commonly known as: Tylenol Take 2 tablets (1,000 mg) by mouth in the morning and 2 tablets (1,000 mg) at noon and 2 tablets (1,000 mg) before bedtime. Do all this for 14 days. metoprolol succinate XL 25 MG 24 hr tablet Commonly known as: Toprol-XL Take 1 tablet (25 mg) by mouth daily. Do not crush or chew. oxyCODONE 5 MG immediate release tablet Commonly known as: Roxicodone Take 1 tablet (5 mg) by mouth every 6 hours as needed for moderate pain (4-6) or severe pain (7-10) for up to 5 days. potassium chloride 20 MEQ packet Commonly known as: Klor-Con Take 20 mEq by mouth daily. Hold while not taking lasix (3 days). Restart to take daily on 01/02/23. spironolactone 25 MG tablet Commonly known as: Aldactone Take 1 tablet (25 mg) by mouth daily. Do not start before December 31, 2022. Start taking on: December 31, 2022 CHANGE how you take these medications furosemide 40 MG tablet Commonly known as: Lasix Take 1 tablet (40 mg) by mouth daily. Hold for 3 days, restart to take daily on 01/02/23. What changed: additional instructions CONTINUE taking these medications acyclovir 800 MG tablet Commonly known as: Zovirax apixaban 5 MG tablet Commonly known as: Eliquis aspirin 81 MG EC tablet atorvastatin 20 MG tablet Commonly known as: Lipitor dapagliflozin 10 MG Commonly known as: Farxiga difluprednate 0.05 % ophthalmic solution Commonly known as: Durezol Entresto 24-26 MG tablet Generic drug: sacubitril-valsartan ERYTHROMYCIN EX NON FORMULARY omeprazole [address] capsule Commonly known as: PriLOSEC timolol 0.5 % ophthalmic solution Commonly known as: Timoptic STOP taking these medications bacitracin-polymyxin b ointment Commonly known as: Polysporin carvedilol 12.5 MG tablet Commonly known as: Coreg Where to Get Your Medications [facility] [address] [place] [address] [address] [facility] [address] [facility] [id number] furosemide 40 MG tablet potassium chloride 20 MEQ packet These medications were sent to [address] [address] acetaminophen 500 MG tablet metoprolol succinate XL 25 MG 24 hr tablet oxyCODONE 5 MG immediate release tablet spironolactone 25 MG tablet DIET: Adult diet Easy to Chew BMI CLASSIFICATION:Overweight (BMI 25.0-29.9) ACTIVITY: activity as tolerated, strict post-sternotomy/post-thoracotomy sternal precautions as outlined in the home going instructions, and no driving or operating heavy jj (more content not included)... [facility] 12-30-2022 Hospital course Narrative Discharge Summary: Cardiothoracic Surgery Dayana Quiñones, 82 y.o., 1940 ADMIT DATE: 12/14/2022 DISCHARGE DATE: 12/30/2022 DISCHARGING SURGEON: Danielle Chou MD, Office Number: [phone] PRIMARY CARE PHYSICIAN: Amalia Avery MD TREATMENT TEAM: Batching Operator: Dr. Brumfield VISIT STATUS: Admission CODE STATUS: Full Code SURGERY: 12/14/22: CABGx2 (PEDRAZA LAD, SVG to OM1) MVRepair (28 ring) LAAL with atriclip with Dr. Chou HOSPITAL COURSE: 82-year-old female seen in outpatient setting for surgical evaluation due to progressive shortness of breath with exertion. Patient with significant cardiac history: CAD ([place]-October 2018-NEGRO to LAD and LCx; November 2018-NEGRO to RCA), paroxysmal atrial fibrillation, HFrEF-30%, 2+ MR, Surgery was discussed and patient consented to intervention. She underwent surgery on 12/14/22. She required vasopressor support for multiple days post-op. Eventually weaned off and started on Heart Failure GDMT. She had swallowing difficulties and had a Dobhoff with tube feedings for a period of time. She progressed and was able to have Dobhoff removed and started on regular diet. She was denied Inpatient Rehab by her insurance and decision was made to discharge her home with family on POD#16. DIAGNOSTICS: BP 79/50 Pulse 78 Temp 36.3 C (97.4 F) (Temporal) Resp 19 Ht 5' 3 (1.6 m) Wt 163 lb 3.2 oz (74 kg) SpO2 100% PF 55 L/min BMI 28.91 kg/m Recent Labs 12/28/22 0649 CREATININE 1.08* HGB 10.5* PLT 296 WBC 12.4* NA 135 K 4.4 DISCHARGE DIAGNOSES: CAD s/p CABG x2 Moderate to Severe MR s/p MVRepair HFrEF HTN RTINI on CKD GERD S/p PPM 08/02/2018 ([employer]) Hx Stroke Paroxsymal Afib/mobitz type II AV block Anxiety Dysphagia Post operative Pulm Management: Normal Post-operative Course Acute blood loss anemia/consumptive thrombocytopenia -GDMT for HF. -Lasix daily and K supplement held for 3 days. -On day of DC, patient complaining of feeling dry, BP soft. No lightheadedness/dizziness. Discussion had and plan to hold lasix and K supplement for 3 days, then resume daily. Patient to monitor weight and signs of swelling. Patient and family all agreeable. -Oxy for 7 days. DISCHARGE MEDICATIONS: Medication List START taking these medications acetaminophen 500 MG tablet Commonly known as: Tylenol Take 2 tablets (1,000 mg) by mouth in the morning and 2 tablets (1,000 mg) at noon and 2 tablets (1,000 mg) before bedtime. Do all this for 14 days. metoprolol succinate XL 25 MG 24 hr tablet Commonly known as: Toprol-XL Take 1 tablet (25 mg) by mouth daily. Do not crush or chew. oxyCODONE 5 MG immediate release tablet Commonly known as: Roxicodone Take 1 tablet (5 mg) by mouth every 6 hours as needed for moderate pain (4-6) or severe pain (7-10) for up to 5 days. potassium chloride 20 MEQ packet Commonly known as: Klor-Con Take 20 mEq by mouth daily. Hold while not taking lasix (3 days). Restart to take daily on 01/02/23. spironolactone 25 MG tablet Commonly known as: Aldactone Take 1 tablet (25 mg) by mouth daily. Do not start before December 31, 2022. Start taking on: December 31, 2022 CHANGE how you take these medications furosemide 40 MG tablet Commonly known as: Lasix Take 1 tablet (40 mg) by mouth daily. Hold for 3 days, restart to take daily on 01/02/23. What changed: additional instructions CONTINUE taking these medications acyclovir 800 MG tablet Commonly known as: Zovirax apixaban 5 MG tablet Commonly known as: Eliquis aspirin 81 MG EC tablet atorvastatin 20 MG tablet Commonly known as: Lipitor dapagliflozin 10 MG Commonly known as: Farxiga difluprednate 0.05 % ophthalmic solution Commonly known as: Durezol Entresto 24-26 MG tablet Generic drug: sacubitril-valsartan ERYTHROMYCIN EX NON FORMULARY omeprazole [address] capsule Commonly known as: PriLOSEC timolol 0.5 % ophthalmic solution Commonly known as: Timoptic STOP taking these medications bacitracin-polymyxin b ointment Commonly known as: Polysporin carvedilol 12.5 MG tablet Commonly known as: Coreg Where to Get Your Medications These medications were sent to [id number] - [place], [place] - [address] [facility] [address] furosemide 40 MG tablet potassium chloride 20 MEQ packet These medications were sent to [facility] [address] [place] [address] [address] [facility] [address] [place] [address] acetaminophen 500 MG tablet metoprolol succinate XL 25 MG 24 hr tablet oxyCODONE 5 MG immediate release tablet spironolactone 25 MG tablet DIET: Adult diet Easy to Chew BMI CLASSIFICATION:Overweight (BMI 25.0-29.9) ACTIVITY: activity as tolerated, strict post-sternotomy/post-thoracotomy sternal precautions as outlined in the home going instructions, and no driving or operating heavy machinery until released by provider STRICT POST-STERNOTOMY/POST-THORACOTOMY PRECAUTIONS OUTLINED IN THE HOME GOING INSTRUCTIONS FOLLOW UP: 01/09/23 at 10:00AM with CT Surgery. CORE CARDIAC MEDICATIONS PRESCRIBED AT DISCHARGE: Beta-amaury prescribed at discharge: [x] Yes [] No - reason why: ACEi or ARB prescribed at discharge: [x] Yes [] No - reason why: Statin prescribed at discharge: [x] Yes [] No - reason why: Anti-platelet agent prescribed at discharge: [] Yes [x] No - reason why: Pt does not require P2Y12 therapy due to Post CABG If yes, type: Post-operative Atrial Fibrillation: []Yes [x] No OAC: [] Yes [x] No Initial Post-op RBC transfusion date/reason: Transfused post-op. Chronic Lung Disease: Unknown DISPOSITION: Home with Home Assist A copy of the discharge instructions which included the medications at the time of discharge, follow-up appointments, phone numbers to call with questions, activity, restrictions, and limitations was provided to the patient or their family. We greatly appreciate the opportunity to participate in the care of your patient. If you have any additional questions or concerns regarding any aspects of their care or management please do not hesitate to contact us. SIGNED: GRIS Lal CNP 12/30/2022, 12:18 PM documented in this encounter [facility] 12-29-2022 History of Present illness Narrative Images from the original note were not included. Speech-Language Pathology SPEECH LANGUAGE PATHOLOGY [facility] Dysphagia Treatment Note Patient Name: Dayana Quiñones Evaluation Date: 12/29/2022 Date of : 1940 Admission Date: 12/14/2022 5:46 AM Age: 82 y.o. Room/Bed: T1-114/T1-114 A Subjective Patient alert and cooperative. Seen upright in bedside chair. No visitors at bedside. Spoke with RN Jan who cleared pt for treatment. Pain: RN managing pain. PPE Worn: gloves Objective & Assessment Dysphagia Treatment # of Activities: 1 Dysphagia Activity 1: Oropharyngeal strengthening P is able to verbalize all swallowing strategies and oropharyngeal strengthening exercises. Pt states that [place] and Cherrie are most challenging. Able to complete all independently Effortful swallow X20 Carlene X6 Cherrie X9 Also discussed importance of using breathing devices given by respiratory when discharge home to decrease likeliness for PNA. Discussed OP repeat MBS to remove all PO restrictions approx. 1 month post discharge. Plan & Recommendations Plan: Recommend continue easy to chew with thin liquids. Speech therapy to follow. Continue acute AIR POLLUTION INSPECTOR therapy per initial plan of care and established goals. Recommend Easy to chew solids and Thin liquids and meds as tolerated and the following precautions: - Slow rate of intake - Small bites/sips - Swallow x 2 per bolus D/C Recommendations: ongoing speech therapy at next level of care Education Education Given: swallowing strategies, diet recommendations, education of oropharyngeal/oral motor exercise for strengthening Given To: patient and RN Response: verbalizes understanding Goals Patient Stated Goal: To go home Encounter Problems Encounter Problems (Active) Swallowing Patient will complete oropharyngeal strengthening exercises to improve swallow function (Progressing) Start: 12/17/22 Expected End: 01/01/23 Patient will tolerate the least restrictive diet consistency to allow for safe consumption of daily meals (Progressing) Start: 12/18/22 Expected End: 01/01/23 Patient will tolerate therapeutic trials of recommended consistency without clinical signs and symptoms of aspiration (Completed) Start: 12/18/22 Expected End: 01/01/23 Resolved: 12/27/22 Patient will participate in instrumental assessment of swallowing as appropriate (Completed) Start: 12/21/22 Expected End: 12/22/22 Resolved: 12/23/22 Encounter Problems (Resolved) Swallowing Patient will participate in repeat clinical dysphagia evaluation (Completed) Start: 12/15/22 Expected End: 09/01/23 Resolved: 12/17/22 Patient will participate in instrumental assessment of swallowing as appropriate (Completed) Start: 12/16/22 Expected End: 12/30/22 Resolved: 12/17/22 Therapy Time AIR POLLUTION INSPECTOR Individual Minutes Time In: 1340 Time Out: 1400 Minutes: 20 OMARI Sosa Physical Therapy Facility/Department: [facility] Physical Therapy Daily Treatment Note NAME: Dayana Quiñones : 1940 Date of Service: 12/29/2022 Discharge Recommendations: 24 hour supervision or assist, Home with Home health PT (Consulted w/ PT about change in Disch rec based on functional improvements and availability of family 24hrs for assist) PT Equipment Recommendations Equipment Needed: Yes Mobility Devices: Walker Walker: Rollator (4 Wheeled) Other: shower chair w/ back Assessment Requires PT Follow-Up: Yes Assessment: Pt reports she is performing P&C Ex on own x2 daily. Pt able to stand from recliner and toilet w/ CGA for safety only today. Pt able to ambulate w/ rollator w/o LOB or path deviations noted. Pt able to negotiate x4 steps w/ step-to pattern; CGA for balance. Pt should progress to Home w/ 24hr assist and Home PT post Disch. Performance Deficits/Impairments: Decreased functional mobility , Decreased ADL status, Decreased cognition, Decreased safe awareness, Decreased strength, Decreased endurance, Decreased posture, Decreased balance Decision Making: Medium Complexity Patient Diagnosis(es): The primary encounter diagnosis was CAD in [place] artery. A diagnosis of Coronary artery disease involving coronary bypass graft of [place] heart with angina pectoris with documented spasm ([facility]) was also pertinent to this visit. has a past medical history of Anxiety, Atherosclerosis of coronary artery bypass graft of [place] heart without angina pectoris, Chronic kidney disease, GERD (gastroesophageal reflux disease), Hypertension, Ischemic cardiomyopathy, Mobitz type II atrioventricular block, STEMI (ST elevation myocardial infarction) (HCC) (11/16/2018), Stroke ([facility]), and Vertigo. has a past surgical history that includes Coronary stent placement (12/19/2018); Cardiac pacemaker placement (08/02/2018); and Back surgery. Restrictions Restrictions/Precautions Restrictions/Precautions: General Precautions, Fall Risk, Surgical Protocols, Modified Diet Required Braces or Orthoses?: No Position Activity Restriction Sternal Precautions: No Pushing, No Pulling, 10# Lifting Restrictions Sternal Precautions: YES Other position/activity restrictions: tele; PIV Vision/Hearing Subjective General Chart Reviewed: Yes Patient Assessed for Rehabilitation Services: Yes Additional Pertinent Hx: DM, PPM 2019 Response To Previous Treatment: Patient with no complaints from previous session. Family / Caregiver Present: No Diagnosis: s/p CABG x 2 and MVR 12/14/22 Follows Commands: Within Functional Limits General Comment Comments: P2P for IPR denied per TCC; going home w/ family and 24hr assist and Home PT. Subjective Subjective: Pt in chair, agreeable to PT. nsg cleared pt for PT. Pt requesting to use bathromm before ambulation Patient Stated Goal: to get strong enough to go home Pain Assessment Pain Assessment: (Pt only notes pain w/ coughing; pillow bracing used) Cognition/Orientation Overall Cognitive Status: WFL Arousal/Alertness: Appropriate responses to stimuli Following Commands: Follows one step commands consistently, Follows one step commands with increased time Attention Span: Appears intact Memory: Appears intact Safety Judgement: Good awareness of safety precautions Problem Solving: Good awareness of errors made Insights: Fully aware of deficits Initiation: Does not require cues Sequencing: Requires cues for some Cognition Comment: Pt very fearful of hurting my chest incision Overall Orientation Status: Within Functional Limits Orientation Level: Oriented to place, Oriented to situation, Oriented to person, Oriented to time Objective Transfers Sit to Stand: Contact guard assistance Stand to sit: Contact guard assistance Stand Pivot Transfers: Contact guard assistance (toilet transfer) Comment: x2 from chair; x1 from toilet Ambulation Ambulation: Yes Ambulation 1 Surface 1: Level tile Device 1: No device Assistance 1: Contact guard Quality of Gait 1: reciprocal stepping, B foot clearance, slow shima Quality of Gait Comment 1: decreased step/stride and shima vs. rollator Distance (ft) 1: 12ft x2 Comments 1: seated break on toilet Ambulation 2 Surface 2: Level tile Device 2: Rollator Assistance 2: Close supervision Quality of Gait 2: reciprocal stepping, No LOB, equal step length Quality of Gait Comment 2: slow and steady shima; no LOB or path deviations noted Distance (ft) 2: 120ft + 100ft Comments 2: stopped for stair training. Stairs Rails 1: Left Device 1: No device Assistance 1: Contact guard Number of Steps 1: 4 Comment 1: Pt performed step-to pattern and side step/step-to pattern; was more comfortable w/ side step pattern and BUE support on rail. Balance Posture: Fair (thoracic kyphosis) Sitting - Static: Good, - Sitting - Dynamic: Fair, + Standing - Static: Fair, + Standing - Dynamic: Fair Comments: Pt able to stand at toilet and perform groin pericare post toileting; SBA Exercises Knee Long Arc Quad: x10 rep ea LE Ankle Pumps: x10 rep BLE Upper Extremity: P&C Ex #1-9 x8-10 rep ea Comments: minimal cues for P&C technique Other exercises Other exercises?: No Plan Times per Week: 5-7 Plan Weeks: 2 Specific Instructions for Next Treatment: functional strength/endurance training. Current Treatment Recommendations: Strengthening, Balance Training, ROM, Functional Mobility Training, ADL/Self-care Training, IADL Training, Transfer Training, Gait Training, Stair training, Endurance Training, Home Exercise Program, Safety Education & Training, Patient/Caregiver Education & Training, Positioning, Equipment Evaluation, Education, & procurement Plan Comment: Cont PT POC Safety Safety Devices Safety Devices in Place: Yes Type of Devices: All fall risk precautions in place, Call light within reach, Heels elevated for pressure relief, Gait belt, Left in chair, Nurse notified, No alarms engaged upon entry into room Outcomes Score AM-PAC Score AM-PAC Inpatient Mobility Raw Score : 19 AM-PAC Inpatient Mobility Raw Score (No Stairs) : 16 Goals Encounter Problems Encounter Problems (Active) Cardiac Patient will perform bed mobility with supervision in order to improve independence and prepare for out of bed mobility. (Not Addressed) Start: 12/19/22 Expected End: 01/02/23 Patient will complete sit to stand transfer with supervision to none in order to improve safety and prepare for out of bed mobility. (Progressing) Start: 12/19/22 Expected End: 01/02/23 Patient will ambulate 200 feet or ambulate 5 minutes with supervision with RPE of 14 or lower. (Progressing) Start: 12/19/22 Expected End: 01/02/23 Patient will ascend and descend 3 # stairs with supervision rail for balance only. (Progressing) Start: 12/19/22 Expected End: 01/02/23 Patient will be independent with P&C exercises. (Progressing) Start: 12/19/22 Expected End: 01/02/23 Patient will be independent with managing secretions and home walking program. (Progressing) Start: 12/19/22 Expected End: 01/02/23 Pain - Adult Education Education Given To: Patient Education Provided: Plan of Care, Home Exercise Program, Precautions, Goals, Transfer Training, Energy Conservation, General Safety, Functional Mobility Training, Gait Training Education Provided Comments: P&C exercises; up to chair for meals; up to toilet w/ assist- continue to promote Education Method: Verbal, Teach Back Barriers to Learning: Hearing Education Outcome: Verbalized understanding, Continued education needed, Demonstrated understanding Skilled Clinical Factors: good compliance w/ sternal precautions. Therapy Time Individual Co-treatment Time In 0842 Time Out 09 Minutes 40 Timed Code Treatment Minutes: 40 Minutes (FA x2; GT x1) Jovi Kruger PTA Images from the original note were not included. Cardiothoracic Surgery/[facility] Progress Note PATIENT NAME: Dayana Quiñones DATE: 12/29/22 HPI: 82-year-old female seen in outpatient setting for surgical evaluation due to progressive shortness of breath with exertion. Patient with significant cardiac history: CAD ([place]-October 2018-NEGRO to LAD and LCx; November 2018-NEGRO to RCA), paroxysmal atrial fibrillation, HFrEF-30%, 2+ MR, Surgery was discussed and patient consented to intervention. Surgery/Procedure: 12/14/22: CABGx2 (PEDRAZA LAD, SVG to OM1) MVRepair (28 ring) LAAL with atriclip with Dr. Chou Interval History: 12/29/22, POD# 15: VSS overnight, Vpaced rhythm, on RA. She is resting in chair, continues to improve daily. Denied IPR precert- discussed with patient and daughter, will plan for d/c home tomorrow. Review of Systems Constitutional: Positive for activity change, appetite change and fatigue. Negative for diaphoresis and fever. Respiratory: Negative for cough, shortness of breath and wheezing. Cardiovascular: Negative for chest pain, palpitations and leg swelling. Gastrointestinal: Negative for abdominal distention, constipation and diarrhea. Skin: Negative for color change, pallor and rash. Objective: Last BM Date: 12/29/22 Vitals: BP: (!) 108/45, MAP (mmHg): 61, BP Method: Automatic Heart Rate: 78 Resp: 18 Temp: 36.7 C (98.1 F), Temp Source: Temporal BMI (Calculated): 28.92 BMP: Recent Labs 12/26/22 2254 12/28/22 0649 NA 132* 135 K 4.4 4.4 CL 98 101 CO2 26 24 BUN 32* 28* CREATININE 1.12* 1.08* CALCIUM 8.7 8.6 CBC: Recent Labs 12/28/22 0649 WBC 12.4* HGB 10.5* HCT 31.7* PLT 296 MCV 91.2 RDW 15.2* INR: No results for input(s): INR in the last 72 hours. Physical Exam Constitutional: General: She is not in acute distress. Appearance: She is not ill-appearing or diaphoretic. Cardiovascular: Rate and Rhythm: Normal rate. Heart sounds: No murmur heard. Comments: Paced. Pulmonary: Effort: Pulmonary effort is normal. Breath sounds: No decreased breath sounds, wheezing or rhonchi. Abdominal: General: There is no distension. Palpations: Abdomen is soft. Musculoskeletal: Right lower leg: No edema. Left lower leg: No edema. Skin: General: Skin is warm and dry. Capillary Refill: Capillary refill takes less than 2 seconds. Findings: Bruising present. Comments: MSI well approximated. No redness, warmth or drainage noted. Neurological: General: No focal deficit present. Mental Status: She is alert and oriented to person, place, and time. Psychiatric: Mood and Affect: Mood normal. Behavior: Behavior normal. Thought Content: Thought content normal. Judgment: Judgment normal. 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 ([employer]) Hx Stroke Paroxsymal Afib/mobitz type II AV block Anxiety Dysphagia Post operative Pulm Management: Normal Post-operative Course Acute blood loss anemia/consumptive thrombocytopenia Plan: Patient Status: Telemetry Continue current med regimen - ASA/Statin - Toprol-XL 50 mg daily - Lasix 40mg & K supp - Eliquis 5mg BID (preop med for Afib) - Entresto, Farxiga, & Aldactone AIR POLLUTION INSPECTOR following - Recs: Easy to chew & thin liquids, meds in whole puree PT/OT: IPR vs home with 24hr supervision Pulmonary hygiene: IS and Acapella GI prophy: IV protonix DVT prophy:TEDs, SCDs, and Patient on OAC/NOAC Disposition: d/c home tomorrow Central Line: []Yes [x] No Arterial Line: []Yes [x] No Colón: []Yes [x] No Restraints: []Yes [x] No Patient discussed and plan of day developed from multidisciplinary rounds between Cardiothoracic Surgery (Cardiothoracic Surgeon, JACEY) and Critical Care Attending Cardiac Core Medications: ASA, Statin, BB, and Entresto EF: 30% (12/18/22) Blood Conservation: Transfused post-op. Batching Operator: Dr. Brumfield Physical Therapy Facility/Department: [facility] Physical Therapy Daily Treatment Note NAME: Dayana Quiñones : 1940 Date of Service: 12/28/2022 Discharge Recommendations: Continue to assess pending progress (IPR vs. Home w/ 24hr supervision and Home PT.) PT Equipment Recommendations Equipment Needed: No Other: tbd; possible rollator for home going Assessment Requires PT Follow-Up: Yes Assessment: Pt continues to progress towards PT goals. Pt able to stand from chair w/ CGA for safety only today. Pt able to increase overall gait distance using rollator; x2 short stand rest. Pt reports she is performing P&C Ex on own during day; improved AROM of BUE noted. Pt will need to trial steps next session to determine IPR vs. Home w/ family assist. Pt would benefit from ongoing inpt rehab, If Disch today Performance Deficits/Impairments: Decreased functional mobility , Decreased ADL status, Decreased cognition, Decreased safe awareness, Decreased strength, Decreased endurance, Decreased posture, Decreased balance Decision Making: Medium Complexity Patient Diagnosis(es): The primary encounter diagnosis was CAD in [place] artery. A diagnosis of Coronary artery disease involving coronary bypass graft of [place] heart with angina pectoris with documented spasm ([facility]) was also pertinent to this visit. has a past medical history of Anxiety, Atherosclerosis of coronary artery bypass graft of [place] heart without angina pectoris, Chronic kidney disease, GERD (gastroesophageal reflux disease), Hypertension, Ischemic cardiomyopathy, Mobitz type II atrioventricular block, STEMI (ST elevation myocardial infarction) (HCC) (11/16/2018), Stroke ([facility]), and Vertigo. has a past surgical history that includes Coronary stent placement (12/19/2018); Cardiac pacemaker placement (08/02/2018); and Back surgery. Restrictions Restrictions/Precautions Restrictions/Precautions: General Precautions, Fall Risk, Surgical Protocols, Modified Diet Required Braces or Orthoses?: No Position Activity Restriction Sternal Precautions: No Pushing, No Pulling, 10# Lifting Restrictions Sternal Precautions: YES Other position/activity restrictions: tele Vision/Hearing Subjective General Chart Reviewed: Yes Patient Assessed for Rehabilitation Services: Yes Additional Pertinent Hx: DM, PPM 2018 Response To Previous Treatment: Patient with no complaints from previous session. Family / Caregiver Present: No Diagnosis: s/p CABG x 2 and MVR 12/14/22 Follows Commands: Within Functional Limits General Comment Comments: PT Rx performed in split time frames today d/t Pt just ambulating in AM. [id number], [id number] (30min total) Subjective Subjective: Pt in chair, agreeable to PT. nsg cleared pt for PT. Patient Stated Goal: to get stronger and get back home eventually Pain Assessment Pain Assessment: (Pt had no c/o increased pain during PT Rx) Cognition/Orientation Overall Cognitive Status: WFL Arousal/Alertness: Appropriate responses to stimuli Following Commands: Follows one step commands with increased time Attention Span: Attends with cues to redirect Memory: Decreased recall of recent events, Decreased short term memory Safety Judgement: Good awareness of safety precautions Problem Solving: Good awareness of errors made Insights: Fully aware of deficits Initiation: Does not require cues Sequencing: Requires cues for some Cognition Comment: Pt very fearful of hurting my chest incision Overall Orientation Status: Within Functional Limits Orientation Level: Oriented to place, Oriented to situation, Oriented to person, Oriented to time Objective Transfers Sit to Stand: Contact guard assistance Stand to sit: Contact guard assistance Comment: x2 from chair Ambulation Ambulation: Yes Ambulation 1 Surface 1: Level tile Device 1: Rollator Assistance 1: Contact guard Quality of Gait 1: reciprocal stepping, equal step length, slow shima Quality of Gait Comment 1: step/stride WFL; slow and steady shima; slight flexed posture (thoracic kphosis noted) Distance (ft) 1: 100ft x3 Comments 1: x2 short stand rest. Pt noted to be heavy mouth breather Exercises Knee Long Arc Quad: x10 rep ea LE Ankle Pumps: x10 rep BLE Upper Extremity: P&C Ex #1-9 x8-10 rep ea Other exercises Other exercises?: No Plan Times per Week: 5-7 Plan Weeks: 2 Specific Instructions for Next Treatment: stairs next session Current Treatment Recommendations: Strengthening, Balance Training, ROM, Functional Mobility Training, ADL/Self-care Training, IADL Training, Transfer Training, Gait Training, Stair training, Endurance Training, Home Exercise Program, Safety Education & Training, Patient/Caregiver Education & Training, Positioning, Equipment Evaluation, Education, & procurement Plan Comment: Cont PT POC Safety Safety Devices Safety Devices in Place: Yes Type of Devices: All fall risk precautions in place, Call light within reach, Gait belt, Patient at risk for falls, Left in chair, No alarms engaged upon entry into room, Nurse notified Outcomes Score AM-PAC Score AM-PAC Inpatient Mobility Raw Score (No Stairs) : 15 Goals Encounter Problems Encounter Problems (Active) Cardiac Patient will perform bed mobility with supervision in order to improve independence and prepare for out of bed mobility. (Not Addressed) Start: 12/19/22 Expected End: 01/02/23 Patient will complete sit to stand transfer with supervision to none in order to improve safety and prepare for out of bed mobility. (Progressing) Start: 12/19/22 Expected End: 01/02/23 Patient will ambulate 200 feet or ambulate 5 minutes with supervision with RPE of 14 or lower. (Progressing) Start: 12/19/22 Expected End: 01/02/23 Patient will ascend and descend 3 # stairs with supervision rail for balance only. (Not Addressed) Start: 12/19/22 Expected End: 01/02/23 Patient will be independent with P&C exercises. (Progressing) Start: 12/19/22 Expected End: 01/02/23 Patient will be independent with managing secretions and home walking program. (Progressing) Start: 12/19/22 Expected End: 01/02/23 Pain - Adult Education Education Given To: Patient Education Provided: Plan of Care, Home Exercise Program, Precautions, Goals, Transfer Training, Energy Conservation, General Safety, Functional Mobility Training, Gait Training Education Provided Comments: P&C exercises; up to chair for meals; up to toilet w/ assist- continue to promote Education Method: Verbal, Demonstration Barriers to Learning: Hearing, Other (Comment) (anxiety) Education Outcome: Verbalized understanding, Continued education needed, Demonstrated understanding Skilled Clinical Factors: good compliance w/ sternal precautions. Therapy Time Individual Co-treatment Time In 1325 Time Out 1355 Minutes 30 Timed Code Treatment Minutes: 30 Minutes (TP x1; GT x1) Jovi Kruger PTA Images from the original note were not included. Speech-Language Pathology SPEECH LANGUAGE PATHOLOGY [facility] Dysphagia Treatment Note Patient Name: Dayana Quiñones Evaluation Date: 12/28/2022 Date of : 1940 Admission Date: 12/14/2022 5:46 AM Age: 82 y.o. Room/Bed: T1-114/T1-114 A Subjective Patient alert and cooperative. Seen upright in bedside chair. No visitors at bedside. Spoke with MANAS Michelle who cleared pt for treatment. Patient reports difficulty taking 1 pill yesterday. No difficulties with the same pill this AM. Patient is taking PO meds whole in a teaspoon of applesauce. Was hoping to test patient with PO meds taken with water. However, AM meds were given at 0900 and then not again until this evening. Pain: RN managing pain. PPE Worn: gloves Objective & Assessment Dysphagia Treatment # of Activities: 1 Dysphagia Activity 1: Oropharyngeal strengthening Patient completed a Hosea maneuver in sets of 3 for a total of 9. Patient completed the Carlene for a total of 9. Patient reports completing effortful swallow in sets of 5 x 3 times daily. Instructed the patient to increase repetitions to 10 daily x 3. Patient is agreeable to same. Plan & Recommendations Plan: Continue acute AIR POLLUTION INSPECTOR therapy per initial plan of care and established goals. Recommend Easy to chew solids and Thin liquids and meds whole in puree and the following precautions: - Upright positioning for all PO intake - Swallow x 2 per bolus - effortful swallow D/C Recommendations: ongoing speech therapy at next level of care Education Education Given: education of oropharyngeal/oral motor exercise for strengthening Given To: patient and RN Response: verbalizes understanding Goals Patient Stated Goal: Continue to gain strength and return home Encounter Problems Encounter Problems (Active) Swallowing Patient will complete oropharyngeal strengthening exercises to improve swallow function (Progressing) Start: 12/17/22 Expected End: 01/01/23 Patient will tolerate the least restrictive diet consistency to allow for safe consumption of daily meals (Progressing) Start: 12/18/22 Expected End: 01/01/23 Patient will tolerate therapeutic trials of recommended consistency without clinical signs and symptoms of aspiration (Completed) Start: 12/18/22 Expected End: 01/01/23 Resolved: 12/27/22 Patient will participate in instrumental assessment of swallowing as appropriate (Completed) Start: 12/21/22 Expected End: 12/22/22 Resolved: 12/23/22 Encounter Problems (Resolved) Swallowing Patient will participate in repeat clinical dysphagia evaluation (Completed) Start: 12/15/22 Expected End: 12/29/22 Resolved: 12/17/22 Patient will participate in instrumental assessment of swallowing as appropriate (Completed) Start: 12/16/22 Expected End: 12/30/22 Resolved: 12/17/22 Therapy Time AIR POLLUTION INSPECTOR Individual Minutes Time In: 1015 Time Out: 1035 Minutes: 20 OMARI Maciel Images from the original note were not included. Cardiothoracic Surgery/[facility] Progress Note PATIENT NAME: Dayana Quiñones DATE: 12/28/22 HPI: 82-year-old female seen in outpatient setting for surgical evaluation due to progressive shortness of breath with exertion. Patient with significant cardiac history: CAD ([place]-October 2018-[facility]GR[facility] to LAD and LCx; November 2018-NEGRO to RCA), paroxysmal atrial fibrillation, HFrEF-30%, 2+ MR, Surgery was discussed and patient consented to intervention. Surgery/Procedure: 12/14/22: CABGx2 (PEDRAZA LAD, SVG to OM1) MVRepair (28 ring) LAAL with atriclip with Dr. Chou Interval History: 12/28/22, POD# 14: VSS overnight, V-paced rhythm, on RA. She is resting up in chair, doing well with no acute concerns. She is medically ready for discharge pending precert. Review of Systems Constitutional: Positive for activity change, appetite change and fatigue. Negative for diaphoresis and fever. Respiratory: Negative for cough, shortness of breath and wheezing. Cardiovascular: Negative for chest pain, palpitations and leg swelling. Gastrointestinal: Negative for abdominal distention, constipation and diarrhea. Skin: Negative for color change, pallor and rash. Objective: Last BM Date: 12/23/22 Vitals: BP: 99/59, MAP (mmHg): 72, BP Method: Automatic Heart Rate: 78 Resp: 20 Temp: 36.6 C (97.8 F), Temp Source: Temporal BMI (Calculated): 29.64 BMP: Recent Labs 12/25/22 1238 12/26/22 2254 NA 137 132* K 5.2* 4.4 CL 99 98 CO2 28 26 BUN 42* 32* CREATININE 0.89 1.12* CALCIUM 8.8 8.7 CBC: No results for input(s): WBC, HGB, HCT, PLT, MCV, RDW in the last 72 hours. INR: No results for input(s): INR in the last 72 hours. Physical Exam Constitutional: General: She is not in acute distress. Appearance: She is not ill-appearing or diaphoretic. Cardiovascular: Rate and Rhythm: Normal rate. Heart sounds: No murmur heard. Comments: Paced. Pulmonary: Effort: Pulmonary effort is normal. Breath sounds: No decreased breath sounds, wheezing or rhonchi. Abdominal: General: There is no distension. Palpations: Abdomen is soft. Musculoskeletal: Right lower leg: No edema. Left lower leg: No edema. Skin: General: Skin is warm and dry. Capillary Refill: Capillary refill takes less than 2 seconds. Findings: Bruising present. Comments: MSI well approximated. No redness, warmth or drainage noted. Neurological: General: No focal deficit present. Mental Status: She is alert and oriented to person, place, and time. Psychiatric: Mood and Affect: Mood normal. Behavior: Behavior normal. Thought Content: Thought content normal. Judgment: Judgment normal. 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 ([employer]) Hx Stroke Paroxsymal Afib/mobitz type II AV block Anxiety Dysphagia Post operative Pulm Management: Normal Post-operative Course Acute blood loss anemia/consumptive thrombocytopenia Plan: Patient Status: Telemetry Continue current med regimen - ASA/Statin - Toprol-XL 50 mg daily - Lasix 40mg & K supp - Eliquis 5mg BID (preop med for Afib) - Entresto, Farxiga, & Aldactone AIR POLLUTION INSPECTOR following - Recs: Easy to chew & thin liquids, meds in mildly thick liquids PT/OT: IPR Pulmonary hygiene: IS and Acapella GI prophy: IV protonix DVT prophy:TEDs, SCDs, and Patient on OAC/NOAC Disposition: Precert pending for IPR Central Line: []Yes [x] No Arterial Line: []Yes [x] No Colón: []Yes [x] No Restraints: []Yes [x] No Patient discussed and plan of day developed from multidisciplinary rounds between Cardiothoracic Surgery (Cardiothoracic Surgeon, JACEY) and Critical Care Attending Cardiac Core Medications: ASA, Statin, BB, and Entresto EF: 30% (12/18/22) Blood Conservation: Transfused post-op. Batching Operator: Dr. Brumfield Physical Therapy Facility/Department: [facility] Physical Therapy Daily Treatment Note NAME: Dayana Quiñones : 1940 Date of Service: 12/27/2022 Discharge Recommendations: IP Rehab PT Equipment Recommendations Equipment Needed: No Other: tbd Assessment Requires PT Follow-Up: Yes Assessment: Pt slowly progressing towards PT goals. Pt required MIn x1 to stand from chair and from toilet today. 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 Pt able to slightly improve overall gait distance w/ rollator today. Pt able to perform P&C Ex w/ UE AROM WFL. Pt would benefit from ongoing inpt rehab post Disch. Performance Deficits/Impairments: Decreased functional mobility , Decreased ADL status, Decreased cognition, Decreased safe awareness, Decreased strength, Decreased endurance, Decreased posture, Decreased balance Decision Making: Medium Complexity Patient Diagnosis(es): The primary encounter diagnosis was CAD in [place] artery. A diagnosis of Coronary artery disease involving coronary bypass graft of [place] heart with angina pectoris with documented spasm ([facility]) was also pertinent to this visit. has a past medical history of Anxiety, Atherosclerosis of coronary artery bypass graft of [place] heart without angina pectoris, Chronic kidney disease, GERD (gastroesophageal reflux disease), Hypertension, Ischemic cardiomyopathy, Mobitz type II atrioventricular block, STEMI (ST elevation myocardial infarction) ([facility]) (11/16/2018), Stroke ([facility]), and Vertigo. has a past surgical history that includes Coronary stent placement (12/19/2018); Cardiac pacemaker placement (08/02/2018); and Back surgery. Restrictions Restrictions/Precautions Restrictions/Precautions: General Precautions, Fall Risk, Surgical Protocols Required Braces or Orthoses?: No Position Activity Restriction Sternal Precautions: No Pushing, No Pulling, 10# Lifting Restrictions Sternal Precautions: YES Other position/activity restrictions: tele Vision/Hearing Subjective General Chart Reviewed: Yes Patient Assessed for Rehabilitation Services: Yes Additional Pertinent Hx: DM, PPM 2016 Response To Previous Treatment: Patient with no complaints from previous session. Family / Caregiver Present: No Diagnosis: s/p CABG x 2 and MVR 12/14/22 Follows Commands: Within Functional Limits General Comment Comments: Pt states she has anxiety/fear about hurting my chest incision , and asked several times (~ 8) during P&C Ex if they will hurt my surgery Subjective Subjective: Pt in chair, agreeable to PT. nsg cleared pt for PT. Pt requesting to use bathroom before ambulation in hallway today Patient Stated Goal: to get stronger and go to rehab Pain Assessment Pain Assessment: (pt only notes arthritic pain during UE ROM Ex.) Cognition/Orientation Overall Cognitive Status: WFL Arousal/Alertness: Appropriate responses to stimuli Following Commands: Follows one step commands with increased time Attention Span: Attends with cues to redirect Memory: Decreased recall of recent events, Decreased short term memory Safety Judgement: Decreased awareness of need for assistance Insights: Fully aware of deficits Initiation: Requires cues for some Sequencing: Requires cues for some Cognition Comment: Pt very fearful of hurting my chest incision Overall Orientation Status: Within Functional Limits Orientation Level: Oriented to place, Oriented to situation, Oriented to person Objective Transfers Sit to Stand: Minimal Assistance Stand to sit: Minimal Assistance Stand Pivot Transfers: Minimal Assistance (toilet transfer) Comment: x1 from chair; x1 from toilet Ambulation Ambulation: Yes Ambulation 1 Surface 1: Level tile Device 1: Hand held assist Assistance 1: Minimum assistance Quality of Gait 1: reciprocal stepping, B foot clearance, uneven step length, slow shima, instability throughout all phases Quality of Gait Comment 1: decreased weight shifting; decreased foot clearance; decreased step/stride length Distance (ft) 1: 12ft to bathroom Comments 1: seated break on toilet Ambulation 2 Surface 2: Level tile Device 2: Rollator Assistance 2: Minimum assistance Quality of Gait 2: reciprocal stepping, equal step length, slow shima Quality of Gait Comment 2: slightly flexed posture; slow and steady shima; Distance (ft) 2: 40ft x3 Comments 2: x1 stand rest Balance Posture: Fair Sitting - Static: Good, - Sitting - Dynamic: Fair, + Standing - Static: Fair Standing - Dynamic: Fair Comments: Pt able to stand at toilet w/ UE support w/ assist for pericare after toileting Exercises Knee Long Arc Quad: x8 rep ea LE Ankle Pumps: x10 rep BLE Upper Extremity: P&C Ex #1-9 x8-10 rep ea Comments: . Other exercises Other exercises?: No Plan Times per Week: 5-7 Plan Weeks: 2 Specific Instructions for Next Treatment: functional strength/endurance training; Stairs as able Current Treatment Recommendations: Strengthening, Balance Training, ROM, Functional Mobility Training, ADL/Self-care Training, IADL Training, Transfer Training, Gait Training, Stair training, Endurance Training, Home Exercise Program, Safety Education & Training, Patient/Caregiver Education & Training, Positioning, Equipment Evaluation, Education, & procurement Plan Comment: Cont PT POC Safety Safety Devices Safety Devices in Place: Yes Type of Devices: All fall risk precautions in place, Call light within reach, Gait belt, Patient at risk for falls, Left in chair, Nurse notified, No alarms engaged upon entry into room Outcomes Score AM-PAC Score AM-PAC Inpatient Mobility Raw Score (No Stairs) : 15 Goals Encounter Problems Encounter Problems (Active) Cardiac Patient will perform bed mobility with supervision in order to improve independence and prepare for out of bed mobility. (Not Addressed) Start: 12/19/22 Expected End: 01/02/23 Patient will complete sit to stand transfer with supervision to none in order to improve safety and prepare for out of bed mobility. (Progressing) Start: 12/19/22 Expected End: 01/02/23 Patient will ambulate 200 feet or ambulate 5 minutes with supervision with RPE of 14 or lower. (Progressing) Start: 12/19/22 Expected End: 01/02/23 Patient will ascend and descend 3 # stairs with supervision rail for balance only. (Not Addressed) Start: 12/19/22 Expected End: 01/02/23 Patient will be independent with P&C exercises. (Progressing) Start: 12/19/22 Expected End: 01/02/23 Patient will be independent with managing secretions and home walking program. (Progressing) Start: 12/19/22 Expected End: 01/02/23 Pain - Adult Education Education Given To: Patient Education Provided: Plan of Care, Home Exercise Program, Precautions, Goals, Transfer Training, Energy Conservation, General Safety, Functional Mobility Training, Gait Training Education Provided Comments: P&C exercises; up to chair for meals; up to toilet w/ assist- continue to promote Education Method: Verbal, Demonstration Barriers to Learning: Hearing, Cognition Education Outcome: Verbalized understanding, Continued education needed Therapy Time Individual Co-treatment Time In 1451 Time Out 1540 Minutes 49 Timed Code Treatment Minutes: 49 Minutes (FA x1; TP x1; GT x1) Jovi Kruger PTA Images from the original note were not included. Speech-Language Pathology SPEECH LANGUAGE PATHOLOGY [facility] Dysphagia Treatment Note Patient Name: Dayana Quiñones Evaluation Date: 12/27/2022 Date of : 1940 Admission Date: 12/14/2022 5:46 AM Age: 82 y.o. Room/Bed: T1-114/T1-114 A Subjective Patient alert and cooperative. Seen upright in bedside chair. No visitors at bedside. Spoke with MANAS Lawson who cleared pt for treatment. Pain: RN managing pain. PPE Worn: gloves Objective & Assessment Dysphagia Treatment # of Activities: 1 Dysphagia Activity 1: Assess toelrance of upgraded diet Dysphagia Activity 2: Instruct swallow strategies Dysphagia Activity 3: Assess dual textured menu items Discussed the results and recommendations from the MBSS completed 12/26/2022. Reinforced need to use small sip size with thin liquids. Reinforced effortful swallow x 2 technique. Assessed patient with dual textured menu item (cold cereal + milk). Patient tolerated same without evidence of airway penetration. Patient able to complete previously instructed oropharyngeal strengthening exercises. Same had been erased from the white board. Re-wrote same on the white board for patient cue to complete exercises daily. Patient shows concern for eating the wrong item or swallowing the wrong way. Provided encouragement and reinforced patient progress with the dysphagia plan of care thus far. Answered all patient questions. Patient demonstrates good comprehension. Will attempt to assess patient taking PO meds with water next session. Currently taking same in an applesauce bolus. Plan & Recommendations Plan: Diet has not been upgraded in Epic. Please change the diet to Easy to Chew with THIN Liquids. Continue acute AIR POLLUTION INSPECTOR therapy per initial plan of care and established goals. D/C Recommendations: ongoing speech therapy at next level of care Education Education Given: swallowing strategies, diet recommendations Given To: patient and RN Response: verbalizes understanding Goals Patient Stated Goal: To eat and drink normally. Encounter Problems Encounter Problems (Active) Swallowing Patient will complete oropharyngeal strengthening exercises to improve swallow function (Progressing) Start: 12/17/22 Expected End: 01/01/23 Patient will tolerate the least restrictive diet consistency to allow for safe consumption of daily meals (Progressing) Start: 12/18/22 Expected End: 01/01/23 Patient will tolerate therapeutic trials of recommended consistency without clinical signs and symptoms of aspiration (Completed) Start: 12/18/22 Expected End: 01/01/23 Resolved: 12/27/22 Patient will participate in instrumental assessment of swallowing as appropriate (Completed) Start: 12/21/22 Expected End: 12/22/22 Resolved: 12/23/22 Encounter Problems (Resolved) Swallowing Patient will participate in repeat clinical dysphagia evaluation (Completed) Start: 12/15/22 Expected End: 12/29/22 Resolved: 12/17/22 Patient will participate in instrumental assessment of swallowing as appropriate (Completed) Start: 12/16/22 Expected End: 12/30/22 Resolved: 12/17/22 Therapy Time AIR POLLUTION INSPECTOR Individual Minutes Time In: 1035 Time Out: 1115 Minutes: 40 OMARI Maciel Images from the original note were not included. [facility] Wound Care Progress Note Dayana Quiñones AGE: 82 y.o. GENDER: female : 1940 Subjective: HISTORY of PRESENT ILLNESS HPI Dayana Quiñones is a 82 y.o. female who presents for a wound follow up. HPI: Ms. Quiñones is a 82-year-old female seen in outpatient setting for surgical evaluation due to progressive shortness of breath with exertion. Patient with significant cardiac history: CAD (RI-October 2018-NEGRO to LAD and LCx; November 2018-NEGRO to RCA), paroxysmal atrial fibrillation, HFrEF-30%, 2+ MR. Patient underwent CABG, MVR, left atrial appendage and ELA on 12/14/22. Wound Care consulted for right chest and left leg. Patient sitting up in chair at time of visit. PAST MEDICAL HISTORY Past Medical History: Diagnosis Date Anxiety Atherosclerosis of coronary artery bypass graft of [place] heart without angina pectoris Chronic kidney disease GERD (gastroesophageal reflux disease) Hypertension Ischemic cardiomyopathy Mobitz type II atrioventricular block STEMI (ST elevation myocardial infarction) (HCC) 11/16/2018 Stroke ([facility]) Vertigo PAST SURGICAL HISTORY Past Surgical History: Procedure Laterality Date BACK SURGERY fusion CARDIAC PACEMAKER PLACEMENT 08/02/2018 CORONARY STENT PLACEMENT 12/19/2018 total of 4 on different occasions FAMILY HISTORY Family History Problem Relation Name Age of Onset Heart disease Father SOCIAL HISTORY Social History Tobacco Use Smoking status: Former Years: 10.00 Types: Cigarettes Quit date: 1968 Years since quittin.6 Smokeless tobacco: Never Vaping Use Vaping Use: Never used Substance Use Topics Alcohol use: Never Drug use: Never ALLERGIES Allergies Allergen Reactions Morphine Other reaction(s): GI Upset, Vomiting vomiting MEDICATIONS No current facility-administered medications on file prior to encounter. Current Outpatient Medications on File Prior to Encounter Medication Sig Dispense Refill aspirin 81 MG EC tablet Take 81 mg by mouth in the morning. atorvastatin (Lipitor) 20 MG tablet Take 20 mg by mouth Nightly. carvedilol (Coreg) 12.5 MG tablet Take 1 tablet by mouth in the morning and 1 tablet in the evening. Take with meals. dapagliflozin (Farxiga) 10 MG Take 10 mg by mouth daily (with breakfast). difluprednate (Durezol) 0.05 % ophthalmic solution Administer 1 drop into the left eye every other day. furosemide (Lasix) 40 MG tablet Take 40 mg by mouth daily. omeprazole (PriLOSEC) [address] capsule Take 40 mg by mouth in the morning. sacubitril-valsartan (Entresto) 24-26 MG tablet Take 1 tablet by mouth in the morning and 1 tablet in the evening. timolol (Timoptic) 0.5 % ophthalmic solution Administer 1 drop into the left eye in the morning and 1 drop in the evening. apixaban (Eliquis) 5 MG tablet Take 5 mg by mouth 2 times daily. REVIEW OF SYSTEMS Pertinent items are noted in HPI. Objective: BP 99/58 Pulse 77 Temp 36.4 C (97.6 F) (Temporal) Resp 18 Ht 1.6 m (5' 3 ) Wt 76.6 kg (168 lb 14 oz) SpO2 96% PF 55 L/min BMI 29.91 kg/m PHYSICAL EXAM General appearance: in no apparent distress, alert, and cooperative Skin: warm and dry Pulmonary: Normal effort, no respiratory distress, no cyanosis Right side of neck: small scabs present - no redness or drainage noted- periwound is fragile. Stable Left calf: 5.0cm glued incision. No drainage. No openings. No s/s of infection. 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 Any questions or concerns please secure chat [facility] wound/ostomy . Thank you for the consult! I personally obtained the chang and critical portions of the history and physical exam. I reviewed the labs, imaging studies, and electronic medical record. I reviewed the chart documentation and discussed the patient with treatment team members. I have edited the note to reflect my clinical findings and my assessment and plan. Please note, the time of this note does not reflect the time I saw this patient today, but the time of this documentaton. Portions of this note including HPI, ROS, impression/plan, and examination may have been copied forward from admission to today as to provide important historical information essential in contributing to medical decision making. Documentation has been reviewed and edited as necessary to support clinical decision making for today's visit and to reflect my own independent evaluation of this patient. Decision making for today's visit and to reflect my own independent evaluation of this patient. Images from the original note were not included. Cardiothoracic Surgery/[facility] Progress Note PATIENT NAME: Dayana Quiñones DATE: 12/27/22 HPI: 82-year-old female seen in outpatient setting for surgical evaluation due to progressive shortness of breath with exertion. Patient with significant cardiac history: CAD (RI-October 2018-NEGRO to LAD and LCx; November 2018-NEGRO to RCA), paroxysmal atrial fibrillation, HFrEF-30%, 2+ MR, Surgery was discussed and patient consented to intervention. Surgery/Procedure: 12/14/22: CABGx2 (PEDRAZA LAD, SVG to OM1) MVRepair (28 ring) LAAL with atriclip with Dr. Chou Interval History: 12/27/22, POD# 13: VSS overnight, V-paced rhythm, on RA. Resting in chair, no acute concerns today. MBS completed yesterday, okay to advance diet. Review of Systems Constitutional: Positive for activity change, appetite change and fatigue. Negative for diaphoresis and fever. Respiratory: Negative for cough, shortness of breath and wheezing. Cardiovascular: Negative for chest pain, palpitations and leg swelling. Gastrointestinal: Negative for abdominal distention, constipation and diarrhea. Skin: Negative for color change, pallor and rash. Objective: Last BM Date: 12/25/22 Vitals: BP: 91/50, MAP (mmHg): 62, BP Method: Automatic Heart Rate: 75 Resp: 18 Temp: 36.4 C (97.6 F), Temp Source: Temporal BMI (Calculated): 29.92 BMP: Recent Labs 12/25/22 1238 12/26/22 2254 NA 137 132* K 5.2* 4.4 CL 99 98 CO2 28 26 BUN 42* 32* CREATININE 0.89 1.12* CALCIUM 8.8 8.7 CBC: No results for input(s): WBC, HGB, HCT, PLT, MCV, RDW in the last 72 hours. INR: No results for input(s): INR in the last 72 hours. Physical Exam Constitutional: General: She is not in acute distress. Appearance: She is not ill-appearing or diaphoretic. Cardiovascular: Rate and Rhythm: Normal rate. Heart sounds: No murmur heard. Comments: Paced. Pulmonary: Effort: Pulmonary effort is normal. Breath sounds: Decreased breath sounds present. No wheezing or rhonchi. Abdominal: General: There is no distension. Palpations: Abdomen is soft. Musculoskeletal: Right lower leg: No edema. Left lower leg: No edema. Skin: General: Skin is warm and dry. Capillary Refill: Capillary refill takes less than 2 seconds. Findings: Bruising present. Comments: MSI well approximated. No redness, warmth or drainage noted. Neurological: General: No focal deficit present. Mental Status: She is alert and oriented to person, place, and time. Psychiatric: Mood and Affect: Mood normal. Behavior: Behavior normal. Thought Content: Thought content normal. Judgment: Judgment normal. 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 ([facility]) Hx Stroke Paroxsymal Afib/mobitz type II AV block Anxiety Dysphagia Post operative Pulm Management: Normal Post-operative Course Acute blood loss anemia/consumptive thrombocytopenia Plan: Patient Status: Telemetry Continue current med regimen - ASA/Statin - Toprol-XL 50 mg daily - Lasix 40mg & K supp - Eliquis 5mg BID (preop med for Afib) - Entresto, Farxiga, & Aldactone AIR POLLUTION INSPECTOR following - MBS yesterday - Recs: Easy to chew & thin liquids, meds in mildly thick liquids PT/OT: IPR Pulmonary hygiene: IS and Acapella GI prophy: IV protonix DVT prophy:TEDs, SCDs, and Patient on OAC/NOAC Disposition: Precert pending for IPR Central Line: []Yes [x] No Arterial Line: []Yes [x] No Colón: []Yes [x] No Restraints: []Yes [x] No Patient discussed and plan of day developed from multidisciplinary rounds between Cardiothoracic Surgery (Cardiothoracic Surgeon, JACEY) and Critical Care Attending Cardiac Core Medications: ASA, Statin, BB, and Entresto EF: 30% (12/18/22) Blood Conservation: Transfused post-op. Batching Operator: Dr. Brumfield Nutrition Assessment Type and Reason for Visit: Reassess Nutrition Recommendations/Plan: Continue liberal diet with texture/consistency per Speech recommendations Per MNT protocol, will order Magic Cup BID to promote p.o./protein intake for weight maintenance and postop healing (290 kcal, 9 g protein each, suitable for all diet textures and liquid consistencies) RD will monitor overall nutrition status and follow weekly Malnutrition Assessment: Malnutrition Status: At risk for malnutrition (Comment) Context: Acute Illness Findings of the 6 clinical characteristics of malnutrition: Energy Intake: Unable to assess (TF cancelled yesterday) Weight Loss: No significant weight loss (weight appears stable from admission) Body Fat Loss: (appears consistent with normal aging) Muscle Mass Loss: (appears consistent with normal aging) Fluid Accumulation: No significant fluid 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 Extubated on POD#1 (12/15). +Dysphonia. AIR POLLUTION INSPECTOR following with finding of dysphagia, initally recommended NPO with DHT placed and TF intitated on 12/19. Passed speech eval for soft and bite sized/mildly thick liquids on 12/22. TF cancelled 12/25. Continued on soft and bite sized/mildly thick liquids diet today. Pt interview is brief as transportation arrives to take pt for MBSS. She indicates she is eating some items well at meals, tolerating things such as applesauce and yogurt well, states she is not a big meat-eater. RD reviewed soft, protein-dense items on menu and helped pt to identify items she would like to try. Also discussed use of Magic Cup to which pt is agreeable. Estimated Daily Nutrient Needs: Energy Requirements Based On: Kcal/kg Weight Used for Energy Requirements: [place] Weight for Energy Calculation (kg): 52.3 kg Total Energy Requirements (kcals/day): 1308-1569kcals/day Weight Used for Protein Requirements: [place] Weight in Kg Used for Protein Requirements: 52.3 kg Estimated Total Protein (g/day): 63-73gm pro/day, monitor renal function- pt with increased needs d/t surgical wound healing Estimated Daily Total Fluid (ml/day): per MD Recommendations Nutrition Related Findings: Lives with: Alone Teeth: Missing teeth Lam Scale Score: 19 .Wound Type: Surgical Incision (sternal and left pretibial incisions) Net IO Since Admission: 4,148.6 mL [12/26/22 1525] Edema: RUE Edema: None, LUE Edema: None, RLE Edema: Non-pitting, LLE Edema: Non-pitting Bowel Sounds (All Quadrants): Active Abdomen Inspection: Soft, Rounded Last BM Date: 12/25/22 Labs and meds reviewed: acetaminophen, 1,000 mg, Oral, q8h apixaban, 5 mg, Oral, BID aspirin, 81 mg, Oral, Daily dapagliflozin, 10 mg, Oral, Daily difluprednate, 1 drop, Left Eye, Every other day diphenoxylate-atropine, 5 mL, Oral, TID erythromycin, , Left Eye, Nightly furosemide, 40 mg, Oral, Daily metoprolol succinate XL, 50 mg, Oral, Daily pantoprazole (ProtoNix) 40 mg in sodium chloride (PF) 0.9 % 10 mL injection, 40 mg, IntraVENous, qAM AC [Held by provider] polyethylene glycol (PEG) 3350, 17 g, Oral, Daily potassium chloride, 20 mEq, Oral, BID rosuvastatin, 40 mg, Oral, Daily sacubitril-valsartan, 1 tablet, Oral, BID senna-docusate sodium, 2 tablet, Oral, Nightly sodium chloride 0.9%, 10 mL, IntraVENous, 2 times per day spironolactone, 25 mg, Oral, Daily timolol, 1 drop, Left Eye, BID BMP: Recent Labs 12/24/22 0009 12/25/22 1238 NA 137 137 K 4.7 5.2* CL 101 99 CO2 26 28 BUN 54* 42* CREATININE 1.09* 0.89 GLUCOSE 117* 109* CALCIUM 8.8 8.8 MG 2.0 -- No results for input(s): POCGLU in the last 72 hours. Lab Results Component Value Date HGBA1C 5.6 12/08/2022 No results found for: VITD25 No results found for: ZINC Lab Results Component Value Date EFBP 39 (A) 12/18/2022 No results found for: CHOL, LDL, HDL, TRIG Current Nutrition Therapies: Adult diet Dysphagia - Soft and Bite Sized; Mildly Thick ([place]) Current Oral Intake Average Meal Intake: (tolerating some food items on current diet) Average Supplements Intake: None Ordered Anthropometric Measures: Height: 160 cm (5' 3 ) Current Body Weight: 76.4 kg (168 lb 6.9 oz) (standing scale 12/26) Weight Source: Not Specified Admission Body Weight: 76.7 kg (169 lb) (stated 12/14) Usual Body Weight: 77.6 kg (171 lb) (only weight noted per chart review is from 11/14/22: 171#) % Weight Change (Calculated): 0.6 [place] Body Weight (lbs) (Calculated): 115 lbs [place] Body Weight (Kg) (Calculated): 52 kg % [place] Body Weight (Calculated): 149.6 % BMI (kg/m2) (Calculated): 29.8 Weight Adjustment For: No Adjustment BMI Categories: Overweight (BMI 25.0-29.9) Wt Readings from Last 10 Encounters: 12/26/22 76.4 kg (168 lb 6.9 oz) 12/08/22 76.9 kg (169 lb 9.6 oz) 11/29/22 77.6 kg (171 lb) Nutrition Diagnosis: Inadequate oral intake related to swallowing difficulty as evidenced by NPO or clear liquid status due to medical condition (failed MBSS today) Increased nutrient needs related to increase demand for energy/nutrients as evidenced by wounds Nutrition Interventions: Food and/or Nutrient Delivery: Continue Current Diet, Start Oral Nutrition Supplement Nutrition Education/Counseling: No recommendation at this time Coordination of Nutrition Care: Continue to monitor while inpatient Goals: Goals: Meet at least 75% of estimated needs, prior to discharge Nutrition Monitoring and Evaluation: Behavioral-Environmental Outcomes: None Identified Food/Nutrient Intake Outcomes: Food and Nutrient Intake, Diet Advancement/Tolerance, Supplement Intake Physical Signs/Symptoms Outcomes: Biochemical Data, Chewing or Swallowing, GI Status, Fluid Status or Edema, Hemodynamic Status, Weight, Skin, Nutrition Focused Physical Findings Discharge Planning: Too soon to determine Nathalie Hackett RD, LD Contact: *[phone] or via JOOR chat Physical Therapy Facility/Department: [facility] Physical Therapy Daily Treatment Note NAME: Dayana Quiñones : 1940 Date of Service: 12/26/2022 Discharge Recommendations: IP Rehab PT Equipment Recommendations Equipment Needed: No Other: tbd Assessment Assessment: Overall, pt. compliant with sternal precautions, increased time to perform tasks, tends to mouth breathe with gait, frequent reminders for pursed lip breathing. Pt. did well with log roll technique when performing bed mobility. Pt. requires Min assist for transfers, CGA/Min for gait. Continue to recommend ongoing inpt. REHAB post discharge. Performance Deficits/Impairments: Decreased functional mobility , Decreased ADL status, Decreased cognition, Decreased safe awareness, Decreased strength, Decreased endurance, Decreased posture, Decreased balance Decision Making: Medium Complexity Patient Diagnosis(es): The primary encounter diagnosis was CAD in [place] artery. A diagnosis of Coronary artery disease involving coronary bypass graft of [place] heart with angina pectoris with documented spasm ([facility]) was also pertinent to this visit. has a past medical history of Anxiety, Atherosclerosis of coronary artery bypass graft of [place] heart without angina pectoris, Chronic kidney disease, GERD (gastroesophageal reflux disease), Hypertension, Ischemic cardiomyopathy, Mobitz type II atrioventricular block, STEMI (ST elevation myocardial infarction) ([facility]) (11/16/2018), Stroke ([facility]), and Vertigo. has a past surgical history that includes Coronary stent placement (12/19/2018); Cardiac pacemaker placement (08/02/2018); and Back surgery. Restrictions Restrictions/Precautions Restrictions/Precautions: General Precautions, Fall Risk, Surgical Protocols Required Braces or Orthoses?: No Position Activity Restriction Sternal Precautions: No Pushing, No Pulling, 10# Lifting Restrictions Sternal Precautions: YES Other position/activity restrictions: tele Vision/Hearing Vision: Within Functional Limits Hearing: Impaired Hearing Exceptions: Hard of hearing/hearing concerns Subjective General Chart Reviewed: Yes Patient Assessed for Rehabilitation Services: Yes Additional Pertinent Hx: DM, PPM 2016 Response To Previous Treatment: Patient with no complaints from previous session. Family / Caregiver Present: No Diagnosis: s/p CABG x 2 and MVR 12/14/22 Follows Commands: Within Functional Limits Subjective Subjective: Pt. up to bedside chair, pleasant and agreeable to session. Pt. states as she moves, she hears her bones cracking (seems to be in her shoulder, as in tendon rubbing over bone), pt. reassured that moving will not harm her incision/surgery and moobility is encouraged during recovery and to get back to healty lifestyle. MANAS Lawson cleared Patient Stated Goal: Pain Assessment Pain Assessment: No/denies pain ( feeling good ) Cognition/Orientation Overall Cognitive Status: WFL Arousal/Alertness: Appropriate responses to stimuli Following Commands: Follows multistep commands with increased time Attention Span: (CAHTO noted) Memory: (overall, pt. compliant with sternal precautions throughout session. 3/3 recall without prompts) Safety Judgement: Decreased awareness of need for assistance Problem Solving: Assistance required to generate solutions, Assistance required to implement solutions Insights: Fully aware of deficits Initiation: Requires cues for some Sequencing: Requires cues for some Overall Orientation Status: Within Functional Limits Orientation Level: Oriented to place, Oriented to person, Oriented to situation Objective Bed mobility Supine to Sit: Moderate assistance, Minimal assistance Sit to Supine: Minimal assistance, Moderate assistance Comment: Min to Mod for LE management/ cues for log roll technique Transfers Sit to Stand: Minimal Assistance Stand to sit: Minimal Assistance Ambulation Ambulation: Yes Ambulation 1 Surface 1: Level tile Device 1: Rolling walker Assistance 1: Minimum assistance, Contact guard Quality of Gait 1: postural sway, slow shima Quality of Gait Comment 1: slow pace, steady Distance (ft) 1: 75 feet X 2 Comments 1: X2 stand rest breaks, cues for pursed lip breathing Balance Posture: Fair Sitting - Static: Good, - Sitting - Dynamic: Fair, + Standing - Static: Fair Standing - Dynamic: Fair Comments: Pt. able to sit on toilet with SUP for safety/ pt. able to self manage bebe-care with set up Exercises Comments: P&C all X10- focus on pursed lip breathin. IS 600-700 X 5/ +Cough/non productive, Acapella X5 Plan Times per Week: 5-7 Plan Weeks: 2 Current Treatment Recommendations: Strengthening, Balance Training, ROM, Functional Mobility Training, ADL/Self-care Training, IADL Training, Transfer Training, Gait Training, Stair training, Endurance Training, Home Exercise Program, Safety Education & Training, Patient/Caregiver Education & Training, Positioning, Equipment Evaluation, Education, & procurement Plan Comment: Cont PT POC Safety Safety Devices Safety Devices in Place: Yes Type of Devices: All fall risk precautions in place, Call light within reach, Gait belt, Patient at risk for falls, Left in chair, Nurse notified, No alarms engaged upon entry into room Restraints Restraints Initially in Place: No AM-PAC Score AM-PAC Inpatient Mobility Raw Score (No Stairs) : 15 Goals Encounter Problems Encounter Problems (Active) Cardiac Patient will perform bed mobility with supervision in order to improve independence and prepare for out of bed mobility. (Progressing) Start: 12/19/22 Expected End: 01/02/23 Patient will complete sit to stand transfer with supervision to none in order to improve safety and prepare for out of bed mobility. (Progressing) Start: 12/19/22 Expected End: 01/02/23 Patient will ambulate 200 feet or ambulate 5 minutes with supervision with RPE of 14 or lower. (Progressing) Start: 12/19/22 Expected End: 01/02/23 Patient will ascend and descend 3 # stairs with supervision rail for balance only. (Not Addressed) Start: 12/19/22 Expected End: 01/02/23 Patient will be independent with P&C exercises. (Progressing) Start: 12/19/22 Expected End: 01/02/23 Patient will be independent with managing secretions and home walking program. (Progressing) Start: 12/19/22 Expected End: 01/02/23 Pain - Adult Education Education Given To: Patient Education Provided: Plan of Care, Home Exercise Program, Precautions, Goals, Transfer Training, Energy Conservation, General Safety, Functional Mobility Training, Gait Training Education Provided Comments: P&C exercises; up to chair for meals; up to toilet w/ assist- continue to promote Education Method: Verbal, Demonstration Barriers to Learning: Hearing Education Outcome: Verbalized understanding, Continued education needed Therapy Time Individual Co-treatment Time In 1313 Time Out 1345 Minutes 32 Dania Granados PTA Images from the original note were not included. Occupational Therapy OCCUPATIONAL THERAPY [facility] Treatment Note Patient Name: Dayana Quiñones Date of : 1940 Age: 82 y.o. Room/Bed: T1-114/T1-114 A Discharge Recommendation: Inpatient Rehab Equipment Needed: TBD at next level of care Assessment Progressing toward goals. Motivated and demos good adherence to sternal precautions. Suggest intensive rehab level therapies at discharge to promote return to functional baseline. Demos appropriate tolerance for same. Subjective Pt on toilet in bathroom, requesting return to chair and agrees to OT for same. No specific c/o pain this session. Medical Precautions: No active isolations Proper PPE donned/doffed in accordance with facility standards. Precautions/Restrictions: Sternal Precautions: No Pushing, No Pulling, No Lifting Greater Than 10 lbs Family/Caregiver Present: none Objective ADLs Grooming: Min Assist, stand at sink to wash hands LE Dressing: Mod Assist, don/doff socks, chair level Toileting: Max Assist, assist for hygiene as well as clothing management Transfers/Mobility Sit to stand: Min Assist Stand to sit: Min Assist Stand step: Min Assist, to chair Toilet: Min Assist Standing balance: Min Assist, dynamic and static Functional mobility: Min Assist, toilet --> chair, hand held Plan Continue acute OT per plan of care. Safety/Education Safety Safety Devices in place: call light within reach, left in chair, and RN aware Restraints: N/A AM-PAC AM-PAC Inpatient Daily Activity Raw Score: 17 ADL Inpatient CMS G-Code Modifier: CK Goals Patient Stated Goal: na Encounter Problems Encounter Problems (Active) Bathing Patient will bathe body with supervision (Not Addressed) Start: 12/22/22 Expected End: 01/19/23 Cognition Patient will attend to task for 3 minutes with no more than 2 cues and supervision (Progressing) Start: 12/22/22 Expected End: 01/19/23 Dressing Upper Extremities Patient will complete upper body dressing with supervision (Not Addressed) Start: 12/22/22 Expected End: 01/19/23 Dressings Lower Extremities Patient will dress lower body with min A (Progressing) Start: 12/22/22 Expected End: 01/19/23 Mobility Patient will recall/demonstrate sternal precautions with all functional mobility in order to promote healing and safety with functional tasks with mod I (Progressing) Start: 12/22/22 Expected End: 01/19/23 Patient will complete item retrieval with supervision (Not Addressed) Start: 12/22/22 Expected End: 01/19/23 Toileting Patient will complete toileting tasks at standard toilet with modified independence. (Progressing) Start: 12/22/22 Expected End: 01/19/23 Therapy Time Individual Co-treatment Time In 935 Time Out 1001 Minutes 25 Timed Code Treatment Minutes: (Funct--1; Self--1) ROSA Gao Images from the original note were not included. Speech-Language Pathology SPEECH LANGUAGE PATHOLOGY [facility] Dysphagia Treatment Note Patient Name: Dayana Quiñones Evaluation Date: 12/26/2022 Date of : 1940 Admission Date: 12/14/2022 5:46 AM Age: 82 y.o. Room/Bed: T1-114/T1-114 A Subjective Patient alert and cooperative. Seen upright in bedside chair. Answers all basic questions with clear vocal quality. Follows all basic commands. No visitors at bedside. Spoke with RN Renny who cleared pt for treatment. Current Diet: Dietary Orders (From admission, onward) Start Ordered 12/25/22 1533 Adult diet Dysphagia - Soft and Bite Sized; Mildly Thick ([facility]) Diet effective now Comments: Meds whole in puree. Question Answer Comment Diet type Dysphagia - Soft and Bite Sized Fluid consistency Mildly Thick ([facility]) 12/25/22 1533 Aspiration Precautions: - Supervision with PO - Alternate solid and liquids - Swallow x 2 per bolus - Effortful swallow Oxygen: Oxygen Therapy: None (Room air) Pain: RN managing pain. PPE Worn: gloves Objective & Assessment Dysphagia Treatment # of Activities: 1 Dysphagia Activity 1: Assess dietary tolerance Patient's NG tube is out with patient reporting no further globus sensation with swallow. Patient's dry swallow is palpated to be clinically timely with slightly reduced elevation. Patient consumes soft and bite sized items with with functional mastication and clear oral cavity post swallow. Patient states that some feels stuck in her teeth and expresses hesitancy at advanced trials. Patient is agreeable to attempting a grilled cheese sandwich over next session. Patient states an aversion to straws and very cold water. Patient has excellent implementation of effortful swallow with re-swallow with trials. Dysphagia Activity 2: Thin liquid trials Patient consumes small sips of thin water with timely swallow onset with effortful swallow. No change in vocal quality or cough is noted, for majority of trials. Patient has dry cough x1, which she attributes to water being to cold. When provided with tap water, no cough or change of vocal quality is noted. Patient would be appropriate for repeat MBSS to attempt potential upgrade to thin liquids. Plan & Recommendations Plan: Recommend continue soft and bite sized/mildly thick liquids. ST to follow per dysphagia plan of care. Continue acute AIR POLLUTION INSPECTOR therapy per initial plan of care and established goals. Recommend Soft and bite-sized solids and Mildly thick liquids and meds crushed in puree and the following precautions: - Supervision with PO - Alternate solid and liquids - Swallow x 2 per bolus - Effortful swallow Recommend modified barium swallow study (MBSS) to further assess. D/C Recommendations: to be determined Education Education Given: swallowing strategies, diet recommendations, potential for additional diagnostic testing Given To: patient and RN Response: verbalizes understanding Goals Patient Stated Goal: To swallow safely. Encounter Problems Encounter Problems (Active) Swallowing Patient will complete oropharyngeal strengthening exercises to improve swallow function (Not Addressed) Start: 12/17/22 Expected End: 01/01/23 Patient will tolerate the least restrictive diet consistency to allow for safe consumption of daily meals (Progressing) Start: 12/18/22 Expected End: 01/01/23 Patient will tolerate therapeutic trials of recommended consistency without clinical signs and symptoms of aspiration (Progressing) Start: 12/18/22 Expected End: 01/01/23 Patient will participate in instrumental assessment of swallowing as appropriate (Completed) Start: 12/21/22 Expected End: 12/22/22 Resolved: 12/23/22 Encounter Problems (Resolved) Swallowing Patient will participate in repeat clinical dysphagia evaluation (Completed) Start: 12/15/22 Expected End: 12/29/22 Resolved: 12/17/22 Patient will participate in instrumental assessment of swallowing as appropriate (Completed) Start: 12/16/22 Expected End: 12/30/22 Resolved: 12/17/22 Therapy Time AIR POLLUTION INSPECTOR Individual Minutes Time In: 910 Time Out: 930 Minutes: 20 OMARI Curran Images from the original note were not included. Cardiothoracic Surgery/[facility] Progress Note PATIENT NAME: Dayana Quiñones DATE: 12/26/22 HPI: 82-year-old female seen in outpatient setting for surgical evaluation due to progressive shortness of breath with exertion. Patient with significant cardiac history: CAD ([facility]-October 2018-[facility] to LAD and LCx; November 2018-[facility] to RCA), paroxysmal atrial fibrillation, HFrEF-30%, 2+ MR, Surgery was discussed and patient consented to intervention. Surgery/Procedure: 12/14/22: CABGx2 (PEDRAZA LAD, SVG to OM1) MVRepair (28 ring) LAAL with atriclip with Dr. Chou Interval History: 12/26/22, POD# 12. Afebrile, paced rhythm on tele, BP stable, on RA. Creat trended down yesterday. Passed swallow eval, NG removed and started on modified diet. Sitting up in chair this AM, just returned form walk with nursing. Doing well, no complaints. Was able to eat yesterday. No acute events overnight. Review of Systems Constitutional: Negative for chills, diaphoresis, fatigue and fever. Respiratory: Negative for cough, shortness of breath and wheezing. Cardiovascular: Negative for chest pain, palpitations and leg swelling. Gastrointestinal: Negative for abdominal distention and abdominal pain. Neurological: Negative for dizziness, syncope and light-headedness. Objective: Last BM Date: 12/25/22 Vitals: BP: 112/62, MAP (mmHg): 75, BP Method: Automatic Heart Rate: 74 Resp: 18 Temp: 36.8 C (98.2 F), Temp Source: Temporal BMI (Calculated): 30.23 BMP: Recent Labs 12/24/22 0009 12/25/22 1238 NA 137 137 K 4.7 5.2* CL 101 99 CO2 26 28 BUN 54* 42* CREATININE 1.09* 0.89 CALCIUM 8.8 8.8 MG 2.0 -- CBC: Recent Labs 12/24/22 0009 WBC 10.8* HGB 10.4* HCT 31.0* PLT 236 MCV 91.1 RDW 16.0* INR: No results for input(s): INR in the last 72 hours. Physical Exam Vitals reviewed. Constitutional: General: She is not in acute distress. Appearance: She is not ill-appearing or diaphoretic. Cardiovascular: Rate and Rhythm: Normal rate. Comments: Paced. Pulmonary: Effort: Pulmonary effort is normal. Breath sounds: No wheezing, rhonchi or rales. Abdominal: General: There is no distension. Palpations: Abdomen is soft. Skin: General: Skin is warm and dry. Capillary Refill: Capillary refill takes less than 2 seconds. Findings: Bruising present. Comments: MSI well approximated. No redness, warmth or drainage noted. Neurological: General: No focal deficit present. Mental Status: She is alert and oriented to person, place, and time. Psychiatric: Mood and Affect: Mood normal. Behavior: Behavior normal. Thought Content: Thought content normal. Judgment: Judgment normal. 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 -Advanced to modified diet. -Dobhoff removed. Creat normalized on re-check. Restart daily lasix and K supplement. Continue aspirin, statin and BB. Entresto, Farxiga and aldactone. Eliquis for atrial fibrillation. PT/OT: 12/25/22- IPR Pulmonary hygiene: IS and Acapella GI prophy: IV protonix DVT prophy:TEDs, SCDs, and Patient on OAC/NOAC Disposition: Plan for IPR, medically ready at this point. Central Line: []Yes [x] No Arterial Line: []Yes [x] No Colón: []Yes [x] No Restraints: []Yes [x] No Patient discussed and plan of day developed from multidisciplinary rounds between Cardiothoracic Surgery (Cardiothoracic Surgeon, JACEY) and Critical Care Attending Cardiac Core Medications: ASA, Statin, BB, and Entresto EF: 30% (12/18/22) Blood Conservation: Transfused post-op. Batching Operator: Dr. Brumfield Images from the original note were not included. Speech-Language Pathology SPEECH LANGUAGE PATHOLOGY [facility] Dysphagia Treatment Note Patient Name: Dayana Quiñones Evaluation Date: 12/25/2022 Date of : 1940 Admission Date: 12/14/2022 5:46 AM Age: 82 y.o. Room/Bed: T1-114/T1-114 A Subjective Patient alert and cooperative. Seen upright in bedside chair. Answers all basic questions with clear vocal quality. Follows all basic commands. No visitors at bedside. Spoke with RN who cleared pt for treatment. Current Diet: Dietary Orders (From admission, onward) Start Ordered 12/19/22 1307 Diet, tube feeding no tray Nasogastric; Glucerna 1.5 Kenneth; Continuous; Yes; 10; Q 8 Hours; 10; 35 Diet effective now Question Answer Comment Route: Nasogastric Formula: Glucerna 1.5 Kenneth Delivery Method: Continuous Continuous Advance Tube Feeding? Yes Advancement Volume (mL/hr) 10 Advancement Frequency: Q 8 Hours Continuous Initial Rate (Recommended mL/hr) 10 Continuous Goal Rate (Recommended mL/hr) 35 12/19/22 1307 Oxygen: Oxygen Therapy: None (Room air) Pain: Pt denies any current pain. PPE Worn: gloves Objective & Assessment Dysphagia Treatment # of Activities: 1 Dysphagia Activity 1: Trial tray with strategies Pt with training tray this date including soft and bite sized solids and mildly thick liquids. Pt with functional oral phase including mastication and bolus formation. No residues after the swallow. Pt is able to demonstrate use of safe swallowing strategies including hard swallow and re-swallow with each bite. Pt also uses expectoration during meal. Secretions were free from PO residues. Pt with clinically present laryngeal excursion, intermittent cough (x3 during entire meal). Pt stated that she coughs because there is irritation on R side of throat during swallow. Oropharyngeal evaluation reveals Dobb laying off to R side of pharynx, suspect globus sensation is d/t same. Pt demonstrated cautious attitude during, may benefit from supervision for anxiety surrounding eating. Plan & Recommendations Plan: Recommend pt begin a soft and bite sized diet with mildly thick liquids. Speech therapy to continue dysphagia POC for tolerance. Continue acute AIR POLLUTION INSPECTOR therapy per initial plan of care and established goals. Recommend Soft and bite-sized solids and Mildly thick liquids and meds whole in puree, as tolerated and the following precautions: - Supervision with PO - Alternate solid and liquids - Swallow x 2 per bolus - Effortful swallow D/C Recommendations: ongoing speech therapy at next level of care Education Education Given: role of therapy, swallowing strategies, diet recommendations Given To: patient and RN Response: verbalizes understanding Goals Patient Stated Goal: To rest Encounter Problems Encounter Problems (Active) Swallowing Patient will complete oropharyngeal strengthening exercises to improve swallow function (Progressing) Start: 12/17/22 Expected End: 01/01/23 Patient will tolerate the least restrictive diet consistency to allow for safe consumption of daily meals (Progressing) Start: 12/18/22 Expected End: 01/01/23 Patient will tolerate therapeutic trials of recommended consistency without clinical signs and symptoms of aspiration (Progressing) Start: 12/18/22 Expected End: 01/01/23 Patient will participate in instrumental assessment of swallowing as appropriate (Completed) Start: 12/21/22 Expected End: 12/22/22 Resolved: 12/23/22 Encounter Problems (Resolved) Swallowing Patient will participate in repeat clinical dysphagia evaluation (Completed) Start: 12/15/22 Expected End: 12/29/22 Resolved: 12/17/22 Patient will participate in instrumental assessment of swallowing as appropriate (Completed) Start: 12/16/22 Expected End: 12/30/22 Resolved: 12/17/22 Therapy Time AIR POLLUTION INSPECTOR Individual Minutes Time In: 1420 Time Out: 1440 Minutes: 20 OMARI Sosa Physical Therapy Facility/Department: [facility] Physical Therapy Daily Treatment Note NAME: Dayana Quiñones : 1940 Date of Service: 12/25/2022 Discharge Recommendations: IP Rehab PT Equipment Recommendations Equipment Needed: No Other: tbd Assessment Requires PT Follow-Up: Yes Assessment: Pt continues to progress slowly towards PT goals. Pt able to demonstrate improved AROM of UEs during P&C Ex today. Pt able to improve overall gait distance using rollator; Min x1 for balance. Pt encouraged to continue P&C on own during day. Pt would benefit from ongoing inpt reahb post Disch. Performance Deficits/Impairments: Decreased functional mobility , Decreased ADL status, Decreased cognition, Decreased safe awareness, Decreased strength, Decreased endurance, Decreased posture, Decreased balance Decision Making: Medium Complexity Patient Diagnosis(es): The primary encounter diagnosis was CAD in [place] artery. A diagnosis of Coronary artery disease involving coronary bypass graft of [place] heart with angina pectoris with documented spasm ([facility]) was also pertinent to this visit. has a past medical history of Anxiety, Atherosclerosis of coronary artery bypass graft of [place] heart without angina pectoris, Chronic kidney disease, GERD (gastroesophageal reflux disease), Hypertension, Ischemic cardiomyopathy, Mobitz type II atrioventricular block, STEMI (ST elevation myocardial infarction) ([facility]) (11/16/2018), Stroke ([facility]), and Vertigo. has a past surgical history that includes Coronary stent placement (12/19/2018); Cardiac pacemaker placement (08/02/2018); and Back surgery. Restrictions Restrictions/Precautions Restrictions/Precautions: General Precautions, Fall Risk, Surgical Protocols Required Braces or Orthoses?: No Position Activity Restriction Sternal Precautions: No Pushing, No Pulling, 10# Lifting Restrictions Sternal Precautions: YES Other position/activity restrictions: tele; dobb leonid Vision/Hearing Subjective General Chart Reviewed: Yes Patient Assessed for Rehabilitation Services: Yes Additional Pertinent Hx: DM, PPM 2016 Response To Previous Treatment: Patient with no complaints from previous session. Family / Caregiver Present: No Diagnosis: s/p CABG x 2 and MVR 12/14/22 Follows Commands: Within Functional Limits General Comment Comments: reveiwed P&C booklet for UE ROM Ex; so she does not have to try to remember them all. Subjective Subjective: Pt in chair, agreeable to PT. nsg cleared pt for PT. Pt states she is afraid I will hurt my surgery when moving around Pt given reassurance that ambulation and P&C Ex will not harm her Sx. Patient Stated Goal: to get strong enough to go home Pain Assessment Pain Assessment: (Pt only reports increased pain w/ coughing today) Cognition/Orientation Overall Cognitive Status: WFL Arousal/Alertness: Delayed responses to stimuli Following Commands: Follows one step commands consistently, Follows one step commands with increased time Attention Span: Attends with cues to redirect (CAHTO??) Memory: Decreased recall of precautions Safety Judgement: Decreased awareness of need for assistance Problem Solving: Assistance required to generate solutions, Assistance required to implement solutions Insights: Fully aware of deficits Initiation: Requires cues for some Sequencing: Requires cues for some Overall Orientation Status: Within Functional Limits Orientation Level: Oriented to place, Oriented to person, Oriented to situation Objective Transfers Sit to Stand: Minimal Assistance Stand to sit: Minimal Assistance Comment: x2 from chair Ambulation Ambulation: Yes Ambulation 1 Surface 1: Level tile Device 1: Rollator Assistance 1: Minimum assistance Quality of Gait 1: reciprocal stepping, B foot clearance, equal step length, slow shima Quality of Gait Comment 1: slow but steady shima; slightly improved step/stride length noted today Distance (ft) 1: 100ft x2 Comments 1: One standing rest break Exercises Knee Long Arc Quad: x8 rep ea LE Ankle Pumps: x10 rep BLE Upper Extremity: P&C ex #1-4, 5-9 x5-7 rep ea Comments: reviewed P&C handout w/ Pt for consistent performance on own. Other exercises Other exercises?: No Plan Times per Week: 5-7 Specific Instructions for Next Treatment: functional strength/endurance training. Current Treatment Recommendations: Strengthening, Balance Training, ROM, Functional Mobility Training, ADL/Self-care Training, IADL Training, Transfer Training, Gait Training, Stair training, Endurance Training, Home Exercise Program, Safety Education & Training, Patient/Caregiver Education & Training, Positioning, Equipment Evaluation, Education, & procurement Plan Comment: Cont PT POC Safety Safety Devices Safety Devices in Place: Yes Type of Devices: All fall risk precautions in place, Call light within reach, Gait belt, Patient at risk for falls, Left in chair, Nurse notified, No alarms engaged upon entry into room Outcomes Score AM-PAC Score AM-PAC Inpatient Mobility Raw Score (No Stairs) : 15 Goals Encounter Problems Encounter Problems (Active) Cardiac Patient will perform bed mobility with supervision in order to improve independence and prepare for out of bed mobility. (Not Addressed) Start: 12/19/22 Expected End: 01/02/23 Patient will complete sit to stand transfer with supervision to none in order to improve safety and prepare for out of bed mobility. (Progressing) Start: 12/19/22 Expected End: 01/02/23 Patient will ambulate 200 feet or ambulate 5 minutes with supervision with RPE of 14 or lower. (Progressing) Start: 12/19/22 Expected End: 01/02/23 Patient will ascend and descend 3 # stairs with supervision rail for balance only. (Not Addressed) Start: 12/19/22 Expected End: 01/02/23 Patient will be independent with P&C exercises. (Progressing) Start: 12/19/22 Expected End: 01/02/23 Patient will be independent with managing secretions and home walking program. (Progressing) Start: 12/19/22 Expected End: 01/02/23 Pain - Adult Education Education Given To: Patient Education Provided: Plan of Care, Home Exercise Program, Precautions, Goals, Transfer Training, Energy Conservation, General Safety, Functional Mobility Training, Gait Training Education Provided Comments: P&C exercises; up to chair for meals; up to toilet w/ assist Education Method: Verbal, Demonstration Barriers to Learning: Hearing Education Outcome: Verbalized understanding, Continued education needed Therapy Time Individual Co-treatment Time In 1340 Time Out 1414 Minutes 34 Timed Code Treatment Minutes: 34 Minutes (TP x1; GT x1) Jovi Kruger PTA Images from the original note were not included. [facility] Wound Care Progress Note Dayana Quiñones AGE: 82 y.o. GENDER: female : 1940 Subjective: HISTORY of PRESENT ILLNESS HPI Dayana Quiñones is a 82 y.o. female who presents for a wound follow up. HPI: Ms. Quiñones is a 82-year-old female seen in outpatient setting for surgical evaluation due to progressive shortness of breath with exertion. Patient with significant cardiac history: CAD (RI-October 2018-NEGRO to LAD and LCx; November 2018-NEGRO to RCA), paroxysmal atrial fibrillation, HFrEF-30%, 2+ MR. Patient underwent CABG, MVR, left atrial appendage and ELA on 12/14/22. Wound Care consulted for right chest and left leg. Patient sitting up in bed side chair at time of visit- PAST MEDICAL HISTORY Past Medical History: Diagnosis Date Anxiety Atherosclerosis of coronary artery bypass graft of [place] heart without angina pectoris Chronic kidney disease GERD (gastroesophageal reflux disease) Hypertension Ischemic cardiomyopathy Mobitz type II atrioventricular block STEMI (ST elevation myocardial infarction) (HCC) 11/16/2018 Stroke ([facility]) Vertigo PAST SURGICAL HISTORY Past Surgical History: Procedure Laterality Date BACK SURGERY fusion CARDIAC PACEMAKER PLACEMENT 08/02/2018 CORONARY STENT PLACEMENT 12/19/2018 total of 4 on different occasions FAMILY HISTORY Family History Problem Relation Name Age of Onset Heart disease Father SOCIAL HISTORY Social History Tobacco Use Smoking status: Former Years: 10.00 Types: Cigarettes Quit date: 1967 Years since quittin.6 Smokeless tobacco: Never Vaping Use Vaping Use: Never used Substance Use Topics Alcohol use: Never Drug use: Never ALLERGIES Allergies Allergen Reactions Morphine Other reaction(s): GI Upset, Vomiting vomiting MEDICATIONS No current facility-administered medications on file prior to encounter. Current Outpatient Medications on File Prior to Encounter Medication Sig Dispense Refill aspirin 81 MG EC tablet Take 81 mg by mouth in the morning. atorvastatin (Lipitor) 20 MG tablet Take 20 mg by mouth Nightly. carvedilol (Coreg) 12.5 MG tablet Take 1 tablet by mouth in the morning and 1 tablet in the evening. Take with meals. dapagliflozin (Farxiga) 10 MG Take 10 mg by mouth daily (with breakfast). difluprednate (Durezol) 0.05 % ophthalmic solution Administer 1 drop into the left eye every other day. furosemide (Lasix) 40 MG tablet Take 40 mg by mouth daily. omeprazole (PriLOSEC) [address] capsule Take 40 mg by mouth in the morning. sacubitril-valsartan (Entresto) 24-26 MG tablet Take 1 tablet by mouth in the morning and 1 tablet in the evening. timolol (Timoptic) 0.5 % ophthalmic solution Administer 1 drop into the left eye in the morning and 1 drop in the evening. apixaban (Eliquis) 5 MG tablet Take 5 mg by mouth 2 times daily. REVIEW OF SYSTEMS Pertinent items are noted in HPI. Objective: BP 114/50 (BP Location: Left arm, Patient Position: Sitting) Pulse 87 Temp 36.6 C (97.9 F) (Temporal) Resp 18 Ht 1.6 m (5' 3 ) Wt 77.4 kg (170 lb 10.2 oz) SpO2 98% PF 55 L/min BMI 30.23 kg/m PHYSICAL EXAM General appearance: in no apparent distress, alert, and cooperative Skin: warm and dry Pulmonary: Normal effort, no respiratory distress, no cyanosis Right side of neck: small scabs present - no redness or drainage noted- periwound is fragile. Left calf: 5.0cm glued incision. No drainage. No openings. No s/s of infection LABS CBC: Lab Results Component Value Date WBC 10.8 (H) 12/24/2022 HGB 10.4 (L) 12/24/2022 HCT 31.0 (L) 12/24/2022 MCV 91.1 12/24/2022 PLT 236 12/24/2022 BMP: Lab Results Component Value Date NA 137 12/25/2022 K 5.2 (H) 12/25/2022 CL 99 12/25/2022 CO2 28 12/25/2022 BUN 42 (H) 12/25/2022 CREATININE 0.89 12/25/2022 PT/INR: No results found for: PROTIME, INR Prealbumin: No results found for: PREALBUMIN Albumin:No components found for: LABALBU Sed Rate:No results found for: SEDRATE Micro: No components found for: BC Assessment/Plan: Right side neck: Skin tear - Apply skin prep then leave LUZ daily and PRN Left calf: Surgical - Leave LUZ - monitor for any s/s of infection Nutritional support Wound Care to follow Recommend to follow up at [facility] wound care center after hospital discharge. Any questions or concerns please secure chat [facility] wound/ostomy . Thank you for the consult! I personally obtained the chang and critical portions of the history and physical exam. I reviewed the labs, imaging studies, and electronic medical record. I reviewed the chart documentation and discussed the patient with treatment team members. I have edited the note to reflect my clinical findings and my assessment and plan. Please note, the time of this note does not reflect the time I saw this patient today, but the time of this documentaton. Portions of this note including HPI, ROS, impression/plan, and examination may have been copied forward from admission to today as to provide important historical information essential in contributing to medical decision making. Documentation has been reviewed and edited as necessary to support clinical decision making for today's visit and to reflect my own independent evaluation of this patient. Decision making for today's visit and to reflect my own independent evaluation of this patient. Images from the original note were not included. Cardiothoracic Surgery/[facility] Progress Note PATIENT NAME: Dayana Quiñones DATE: 12/25/22 HPI: 82-year-old female seen in outpatient setting for surgical evaluation due to progressive shortness of breath with exertion. Patient with significant cardiac history: CAD (RI-October 2018-NEGRO to LAD and LCx; November 2018-NEGRO to RCA), paroxysmal atrial fibrillation, HFrEF-30%, 2+ MR, Surgery was discussed and patient consented to intervention. Surgery/Procedure: 12/14/22: CABGx2 (PEDRAZA LAD, SVG to OM1) MVRepair (28 ring) LAAL with atriclip with Dr. Chou Interval History: 12/25/22, POD# 11: Afebrile, paced rhythm, BP on low side but stable, on RA. Sitting up in chair this AM, no acute issues overnight. No complaints. Pain tolerable. Wants to get Dobhoff out. Review of Systems Constitutional: Positive for fatigue. Negative for chills, diaphoresis and fever. Respiratory: Negative for cough, shortness of breath and wheezing. Cardiovascular: Negative for chest pain, palpitations and leg swelling. Gastrointestinal: Negative for abdominal distention and abdominal pain. Neurological: Negative for dizziness, syncope and light-headedness. Objective: Last BM Date: 12/23/22 Vitals: BP: 92/53, MAP (mmHg): 66, BP Method: Automatic Heart Rate: 72 Resp: 16 Temp: 36.8 C (98.2 F), Temp Source: Temporal BMI (Calculated): 30.23 BMP: Recent Labs 12/23/22 0037 12/23/22 0549 12/24/22 0009 NA 141 141 137 K 4.2 4.0 4.7 CL 105 105 101 CO2 28 27 26 BUN 51* 50* 54* CREATININE 0.87 0.86 1.09* CALCIUM 8.3* 8.3* 8.8 MG 1.9 -- 2.0 CBC: Recent Labs 12/23/22 0037 12/24/22 0009 WBC 12.1* 10.8* HGB 9.9* 10.4* HCT 29.8* 31.0* PLT 206 236 MCV 90.6 91.1 RDW 15.8* 16.0* INR: No results for input(s): INR in the last 72 hours. Physical Exam Vitals reviewed. Constitutional: General: She is not in acute distress. Appearance: She is not ill-appearing or diaphoretic. HENT: Nose: Comments: Dobhoff in place. Cardiovascular: Rate and Rhythm: Normal rate. Comments: Paced. Pulmonary: Effort: Pulmonary effort is normal. Breath sounds: No wheezing, rhonchi or rales. Abdominal: General: There is no distension. Palpations: Abdomen is soft. Skin: General: Skin is warm and dry. Capillary Refill: Capillary refill takes less than 2 seconds. Findings: Bruising present. Comments: MSI well approximated. No redness, warmth or drainage noted. Neurological: General: No focal deficit present. Mental Status: She is alert and oriented to person, place, and time. Psychiatric: Mood and Affect: Mood normal. Behavior: Behavior normal. Thought Content: Thought content normal. Judgment: Judgment normal. 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 -Dobhoff currently in place. -Re-assess today, hope to advance diet. -Follow free water protocol. Dietary providing recs for TF. Re-check BMP today. -Creat 1.09 on last check. -Hold lasix for now, possibly dry. Heart Failure following. Continue aspirin, statin and BB. Entresto, Farxiga and aldactone. Eliquis for atrial fibrillation. PT/OT: 12/20- IPR Pulmonary hygiene: IS and Acapella GI prophy: IV protonix DVT prophy:TEDs, SCDs, and Patient on OAC/NOAC Disposition: Review Speech Recs today, DC in a couple days? Central Line: []Yes [x] No Arterial Line: []Yes [x] No Colón: []Yes [x] No Restraints: []Yes [x] No Patient discussed and plan of day developed from multidisciplinary rounds between Cardiothoracic Surgery (Cardiothoracic Surgeon, JACEY) and Critical Care Attending Cardiac Core Medications: ASA, Statin, BB, and Entresto EF: 30% (12/18/22) Blood Conservation: Transfused post-op. Batching Operator: Dr. Brumfield Images from the original note were not included. Cardiothoracic Surgery/[facility] Progress Note PATIENT NAME: Dayana Quiñones DATE: 12/24/22 HPI: 82-year-old female seen in outpatient setting for surgical evaluation due to progressive shortness of breath with exertion. Patient with significant cardiac history: CAD (RI-October 2018-NEGRO to LAD and LCx; November 2018-NEGRO to RCA), paroxysmal atrial fibrillation, HFrEF-30%, 2+ MR, Surgery was discussed and patient consented to intervention. Surgery/Procedure: 12/14/22: CABGx2 (PEDRAZA LAD, SVG to OM1) MVRepair (28 ring) LAAL with atriclip with Dr. Chou Interval History: 12/24/22, POD# 10 - no changes overnight VSS, pain well controlled. Slight TRINI Review of Systems Constitutional: Positive for activity change, appetite change and fatigue. Negative for diaphoresis and fever. Respiratory: Positive for shortness of breath. Negative for cough and wheezing. Cardiovascular: Negative for chest pain, palpitations and leg swelling. Gastrointestinal: Negative for abdominal distention, constipation, diarrhea, nausea and vomiting. Skin: Negative for color change, pallor and rash. Objective: Last BM Date: 12/23/22 Vitals: BP: (!) 120/49, MAP (mmHg): 70, BP Method: Automatic Heart Rate: 71 Resp: 20 Temp: 36.4 C (97.6 F), Temp Source: Temporal BMI (Calculated): 29.34 BMP: Recent Labs 12/22/22 0335 12/23/22 0037 12/23/22 0549 12/24/22 0009 NA 146* 141 141 137 K 3.8 4.2 4.0 4.7 CL 105 105 105 101 CO2 27 28 27 26 BUN 52* 51* 50* 54* CREATININE 0.81 0.87 0.86 1.09* CALCIUM 8.9 8.3* 8.3* 8.8 MG 2.2 1.9 -- 2.0 CBC: Recent Labs 12/22/22 0335 12/23/22 0037 12/24/22 0009 WBC 14.4* 12.1* 10.8* HGB 11.1* 9.9* 10.4* HCT 34.2* 29.8* 31.0* PLT 202 206 236 MCV 91.7 90.6 91.1 RDW 15.7* 15.8* 16.0* INR: No results for input(s): INR in the last 72 hours. Physical Exam Constitutional: Interventions: Nasal cannula in place. Cardiovascular: Rate and Rhythm: Normal rate and regular rhythm. Pulses: Dorsalis pedis pulses are 2+ on the right side and 2+ on the left side. Heart sounds: Normal heart sounds. No murmur heard. No friction rub. Comments: PPM Pulmonary: Effort: Pulmonary effort is normal. Breath sounds: Decreased breath sounds present. No wheezing or rhonchi. Comments: SOB with activity Musculoskeletal: Right lower leg: No edema. Left lower leg: No edema. Skin: General: Skin is warm and dry. Capillary Refill: Capillary refill takes less than 2 seconds. Coloration: Skin is pale. Findings: Bruising and ecchymosis present. Comments: Surgical Incisions: well approximate; clean dry with no drainage noted. Surrounding skin no redness, warmth, or signs of infection noted. Neurological: Mental Status: She is alert. Psychiatric: Behavior: Behavior is cooperative. 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 ([facility]) Hx Stroke Paroxsymal Afib/mobitz type II AV block Anxiety Dysphagia Post operative Pulm Management: Normal Post-operative Course Acute blood loss anemia/consumptive thrombocytopenia Plan: Patient Status: Telemetry Lab checks DC'd Continue supportive care dispo to facility this week Medications as ordered ASA & statin, metoprolol Eliquis for Afib HF consulted - Low dose Entresto - Lasix 40mg PO daily - Farxiga 10mg daily & Aldactone 25mg - will see sunday TF per dietary recs: Glucerna 1.5 @ goal rate 35 ml/hr Insulin per Endo AIR POLLUTION INSPECTOR following - NPO, with dobbhoff TF - reviewed CT appears to be a chronic aspiration PT/OT: 12/20- IPR Pulmonary hygiene: IS and Acapella GI prophy: IV protonix DVT prophy:TEDs, SCDs, and Patient on OAC/NOAC Disposition: TBD Central Line: []Yes [x] No Arterial Line: []Yes [x] No Colón: []Yes [x] No Restraints: []Yes [x] No Patient discussed and plan of day developed from multidisciplinary rounds between Cardiothoracic Surgery (Cardiothoracic Surgeon, JACEY) and Critical Care Attending Cardiac Core Medications: ASA, Statin, BB, and Entresto EF: 30% 11/22/22 Blood Conservation: multiple units postop Batching Operator: Dr. Brumfield Physical Therapy Facility/Department: [facility] Physical Therapy Daily Treatment Note NAME: Dayana Quiñones : 1940 Date of Service: 12/23/2022 Discharge Recommendations: IP Rehab PT Equipment Recommendations Equipment Needed: No Other: tbd Assessment Requires PT Follow-Up: Yes Assessment: Patient continues to progress well towards goals but is limited by fatigue and weakness. She tolerated ambulating longer distances today with contact guard assistance but did require a standing rest break. She utilized sternal pillow for all transfers. She is progressing but would continue to benefit from inpatient rehabilitation at discharge pending medical progress. Performance Deficits/Impairments: Decreased functional mobility , Decreased ADL status, Decreased cognition, Decreased safe awareness, Decreased strength, Decreased endurance, Decreased posture, Decreased balance Decision Making: Medium Complexity Patient Diagnosis(es): The primary encounter diagnosis was CAD in [place] artery. A diagnosis of Coronary artery disease involving coronary bypass graft of [place] heart with angina pectoris with documented spasm ([facility]) was also pertinent to this visit. has a past medical history of Anxiety, Atherosclerosis of coronary artery bypass graft of [place] heart without angina pectoris, Chronic kidney disease, GERD (gastroesophageal reflux disease), Hypertension, Ischemic cardiomyopathy, Mobitz type II atrioventricular block, STEMI (ST elevation myocardial infarction) ([facility]) (11/16/2018), Stroke ([facility]), and Vertigo. has a past surgical history that includes Coronary stent placement (12/19/2018); Cardiac pacemaker placement (08/02/2018); and Back surgery. Restrictions Restrictions/Precautions Restrictions/Precautions: General Precautions, Fall Risk, Surgical Protocols Required Braces or Orthoses?: No Position Activity Restriction Sternal Precautions: No Pushing, No Pulling, 10# Lifting Restrictions Sternal Precautions: YES Other position/activity restrictions: tele; dobb leonid Vision/Hearing Subjective General Chart Reviewed: Yes Patient Assessed for Rehabilitation Services: Yes Additional Pertinent Hx: DM, PPM 2016 Response To Previous Treatment: Patient with no complaints from previous session. Family / Caregiver Present: Yes (Daughter) Diagnosis: s/p CABG x 2 and MVR 12/14/22 Follows Commands: Within Functional Limits Subjective Subjective: Patient in chair, agreeable to physical therapy, and cleared by nursing Patient Stated Goal: To get stronger, to eventually go home to her dtr's in [place]. Cognition/Orientation Overall Cognitive Status: WFL Overall Orientation Status: Within Functional Limits Orientation Level: Oriented to place, Oriented to time, Oriented to situation, Oriented to person Objective Bed mobility Comment: Not tested due to patient in recliner Transfers Sit to Stand: Minimal Assistance Stand to sit: Minimal Assistance Comment: Two sit to stand transfers from chair. Requied moderate assistance to sit up right prior to standing. Ambulation Ambulation: Yes Ambulation 1 Surface 1: Level tile Device 1: Rollator Assistance 1: Minimum assistance Quality of Gait 1: shuffling, slow shima, instability throughout all phases Quality of Gait Comment 1: Continues to demonstrate flexed posture with decreased step height with ambulation Distance (ft) 1: 75 ft x 2 Comments 1: One standing rest break Exercises Upper Extremity: Shoulder abduction with arm circles, elbow flexion, and shoulder shrugs for sets of 10 each. She reported she did not remember completing any of these exercises. Plan Times per Week: 5-7 Plan Weeks: 2 Current Treatment Recommendations: Strengthening, Balance Training, ROM, Functional Mobility Training, ADL/Self-care Training, IADL Training, Transfer Training, Gait Training, Stair training, Endurance Training, Home Exercise Program, Safety Education & Training, Patient/Caregiver Education & Training, Positioning, Equipment Evaluation, Education, & procurement Plan Comment: Cont PT POC Safety Safety Devices Safety Devices in Place: Yes Type of Devices: All fall risk precautions in place, Call light within reach, Gait belt, Patient at risk for falls, Left in chair, Nurse notified Restraints Restraints Initially in Place: No Outcomes Score AM-PAC Score AM-PAC Inpatient Mobility Raw Score (No Stairs) : 15 Goals Encounter Problems Encounter Problems (Active) Cardiac Patient will perform bed mobility with supervision in order to improve independence and prepare for out of bed mobility. (Not Addressed) Start: 12/19/22 Expected End: 01/02/23 Patient will complete sit to stand transfer with supervision to none in order to improve safety and prepare for out of bed mobility. (Progressing) Start: 12/19/22 Expected End: 01/02/23 Patient will ambulate 200 feet or ambulate 5 minutes with supervision with RPE of 14 or lower. (Progressing) Start: 12/19/22 Expected End: 01/02/23 Patient will ascend and descend 3 # stairs with supervision rail for balance only. (Not Addressed) Start: 12/19/22 Expected End: 01/02/23 Patient will be independent with P&C exercises. (Progressing) Start: 12/19/22 Expected End: 01/02/23 Patient will be independent with managing secretions and home walking program. (Progressing) Start: 12/19/22 Expected End: 01/02/23 Pain - Adult Education Education Given To: Patient Education Provided: Plan of Care, Home Exercise Program, Precautions, Goals, Transfer Training, Energy Conservation, General Safety, Functional Mobility Training, Gait Training, PT Role Education Provided Comments: P&C exercises Education Method: Verbal, Demonstration Barriers to Learning: None Education Outcome: Verbalized understanding, Continued education needed Therapy Time Individual Co-treatment Time In 1403 Time Out 1418 Minutes 15 Greg Mejía PT This therapist was wearing an appropriate mask, goggles, and gloves for entire patient encounter. Images from the original note were not included. Speech-Language Pathology SPEECH LANGUAGE PATHOLOGY [facility] Dysphagia Treatment Note Patient Name: Dayana Quiñones Evaluation Date: 12/23/2022 Date of : 1940 Admission Date: 12/14/2022 5:46 AM Age: 82 y.o. Room/Bed: T1-114/T1-114 A Subjective Patient alert and cooperative. Seen upright in bedside chair. Visitors at bedside - daughter. Spoke with toña who cleared pt for treatment. Pain: RN managing pain. PPE Worn: gloves Objective & Assessment Dysphagia Treatment # of Activities: 3 Dysphagia Activity 1: MBSS results education Dysphagia Activity 2: Free Water Dysphagia Activity 3: Soft and Bite Sized Training Tray Discussed the results from the MBSS and provided education regarding POC and swallow strategies. Dobbhoff TF held during this session. Provided a training tray consisting of oatmeal, yogurt, and mildly thick water. Patient uses an effortful swallow x 2 for each bolus. Mildly thick liquid boli was given after 2 boli of puree / soft and bite sized boli. Patient then used an expectoration technique as a further safety measure against aspiration. Patient was able to implement these strategies and swallow sequence with minimal cues. Patient reports mild pharyngeal globus sensation x 1 after oatmeal boli. Patient consumed ~ 1-2 ounce of oatmeal / yogurt and ~ 1-2 ounces of mildly thick water via teaspoon or small sip. There is no wet vocal quality or cough throughout this session. Patient had been taking ice chips without having completed mouth care. Assisted patient to brush teeth and use mouthwash and then provided ice chips and water for ongoing free water protocol. FREE WATER PROTOCOL IS RECOMMENDED FOR THIS PATIENT The free water protocol allows patient who have been identified by AIR POLLUTION INSPECTOR to participate in ice chips/or sips of water between meals when they are NPO or on thickened liquids. Free water Protocol (FWP) assist with decreased dehydration risk, improved compliance with modified diet during meals, and improved quality of life. Necessary Guidelines for Increased SAFETY Of FWP 1. 30 minutes before or after a meal if applicable. 2. Thorough oral care prior to any ice chips/sips of WATER. ([place] teeth, rinse with mouth wash, cleanse oral cavity with swab/toothette) 3. Most upright sitting, no straws, small single sips/ice chips (other strategies as stated) Plan & Recommendations Plan: Please continue Dobbhoff TF. Please facilitate proper implementation of the Free Water protocol including appropriate mouth care. Please turn TF off early 12/24/22 to promote an appetite. Speech therapy will provide a training tray for additional practice and hopefully move forward with a diet at that time. D/C Recommendations: to be determined Education Education Given: swallowing strategies, diet recommendations, Free Water Given To: patient, daughter, and RN Response: verbalizes understanding Goals Patient Stated Goal: To get the tube out. Encounter Problems Encounter Problems (Active) Swallowing Patient will complete oropharyngeal strengthening exercises to improve swallow function (Not Addressed) Start: 12/17/22 Expected End: 01/01/23 Patient will tolerate the least restrictive diet consistency to allow for safe consumption of daily meals Start: 12/18/22 Expected End: 01/01/23 Patient will tolerate therapeutic trials of recommended consistency without clinical signs and symptoms of aspiration (Progressing) Start: 12/18/22 Expected End: 01/01/23 Patient will participate in instrumental assessment of swallowing as appropriate (Completed) Start: 12/21/22 Expected End: 12/22/22 Resolved: 12/23/22 Encounter Problems (Resolved) Swallowing Patient will participate in repeat clinical dysphagia evaluation (Completed) Start: 12/15/22 Expected End: 12/29/22 Resolved: 12/17/22 Patient will participate in instrumental assessment of swallowing as appropriate (Completed) Start: 12/16/22 Expected End: 12/30/22 Resolved: 12/17/22 Therapy Time AIR POLLUTION INSPECTOR Individual Minutes Time In: 1110 Time Out: 1140 Minutes: 30 OMARI Maciel Images from the original note were not included. Cardiothoracic Surgery/[facility] Progress Note PATIENT NAME: Dayana Quiñones DATE: 12/23/22 HPI: 82-year-old female seen in outpatient setting for surgical evaluation due to progressive shortness of breath with exertion. Patient with significant cardiac history: CAD ([place]-October 2018-NEGRO to LAD and LCx; November 2018-NEGRO to RCA), paroxysmal atrial fibrillation, HFrEF-30%, 2+ MR, Surgery was discussed and patient consented to intervention. Surgery/Procedure: 12/14/22: CABGx2 (PEDRAZA LAD, SVG to OM1) MVRepair (28 ring) LAAL with atriclip with Dr. Chou Interval History: 12/23/22, POD# 9 no acute changes overnight - christo TF - motivated to get better Review of Systems Constitutional: Positive for activity change, appetite change and fatigue. Negative for diaphoresis and fever. Respiratory: Positive for shortness of breath. Negative for cough and wheezing. Cardiovascular: Negative for chest pain, palpitations and leg swelling. Gastrointestinal: Negative for abdominal distention, constipation, diarrhea, nausea and vomiting. Skin: Negative for color change, pallor and rash. Objective: Last BM Date: 12/22/22 Vitals: BP: 95/60, MAP (mmHg): 67, BP Method: Automatic Heart Rate: 74 Resp: 24 Temp: 36.4 C (97.5 F), Temp Source: Temporal BMI (Calculated): 29.77 BMP: Recent Labs 12/21/22 0030 12/21/22 0445 12/22/22 0335 12/23/22 0037 12/23/22 0549 NA 145 -- 146* 141 141 K 2.9* < > 3.8 4.2 4.0 CL 111* -- 105 105 105 CO2 25 -- 27 28 27 BUN 53* -- 52* 51* 50* CREATININE 0.89 -- 0.81 0.87 0.86 CALCIUM 7.5* -- 8.9 8.3* 8.3* MG 2.0 -- 2.2 1.9 -- < > = values in this interval not displayed. CBC: Recent Labs 12/21/22 0030 12/22/2233412/23/2236 WBC 11.3* 14.4* 12.1* HGB 9.5* 11.1* 9.9* HCT 28.7* 34.2* 29.8* PLT 127* 202 206 MCV 89.7 91.7 90.6 RDW 15.4* 15.7* 15.8* INR: No results for input(s): INR in the last 72 hours. Physical Exam Constitutional: Interventions: Nasal cannula in place. Cardiovascular: Rate and Rhythm: Normal rate and regular rhythm. Pulses: Dorsalis pedis pulses are 2+ on the right side and 2+ on the left side. Heart sounds: Normal heart sounds. No murmur heard. No friction rub. Comments: PPM Pulmonary: Effort: Pulmonary effort is normal. Breath sounds: Decreased breath sounds present. No wheezing or rhonchi. Comments: SOB with activity Musculoskeletal: Right lower leg: No edema. Left lower leg: No edema. Skin: General: Skin is warm and dry. Capillary Refill: Capillary refill takes less than 2 seconds. Coloration: Skin is pale. Findings: Bruising and ecchymosis present. Comments: Surgical Incisions: well approximate; clean dry with no drainage noted. Surrounding skin no redness, warmth, or signs of infection noted. Neurological: Mental Status: She is alert. Psychiatric: Behavior: Behavior is cooperative. 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 ([employer]) Hx Stroke Paroxsymal Afib/mobitz type II AV block Anxiety Dysphagia Post operative Pulm Management: Normal Post-operative Course Acute blood loss anemia/consumptive thrombocytopenia Plan: Patient Status: Telemetry DC labs and CXR checks unless clinically the patient changes Medications as ordered ASA & statin, metoprolol Eliquis for Afib HF consulted - Low dose Entresto - Lasix 40mg PO daily - Farxiga 10mg daily & Aldactone 25mg TF per dietary recs: Glucerna 1.5 @ goal rate 35 ml/hr Insulin per Endo AIR POLLUTION INSPECTOR following - NPO, with dobbhoff TF - reviewed CT appears to be a chronic aspiration PT/OT: 12/20- IPR Pulmonary hygiene: IS and Acapella GI prophy: IV protonix DVT prophy:TEDs, SCDs, and Patient on OAC/NOAC Disposition: TBD Central Line: []Yes [x] No Arterial Line: []Yes [x] No Colón: []Yes [x] No Restraints: []Yes [x] No Patient discussed and plan of day developed from multidisciplinary rounds between Cardiothoracic Surgery (Cardiothoracic Surgeon, JACEY) and Critical Care Attending Cardiac Core Medications: ASA, Statin, BB, and Entresto EF: 30% 11/22/22 Blood Conservation: multiple units postop Batching Operator: Dr. Brumfield Associated attestation - Rhett Scott DO - 12/23/2022 11:54 AM EDT This patient was seen and personally examined by me. Labs, imaging studies and electronic medical record reviewed. See [x]progress note []H&P []Consult documented by [x]house sitter / JACEY which reflects my hpi, pmh, psh, ros, fh, sh as well with my additions, as I discussed with the [x]house sitter / JACEY. For my exam, assessment and plan see below. Please see full note for additional information, physical exam. Discussed with: [x]Residents/JACEY [x]Patient/Family [x]RN [] Available Consultants []SW/TCC []Other Personally Reviewed: [x]Epic notes [x]Radiology studies [x]Labs []EKG []Other Chang Changes to plan: with limited assessment and plan: Agree with plan outlined below. Dispo planning. AIR POLLUTION INSPECTOR therpay/pt/ot. Physical Therapy Facility/Department: [facility] Physical Therapy Daily Treatment Note NAME: Dayana Quiñones : 1940 Date of Service: 12/22/2022 Discharge Recommendations: IP Rehab PT Equipment Recommendations Equipment Needed: No Other: tbd Assessment Requires PT Follow-Up: Yes Assessment: Pt continues to slowly progress towards PT goals. Pt required MIn x1 to stand from EOB today, and Min x1 for overall balance during ambulation trial. Pt remains very guarded, holding sternal pillow constantly, which limits AROM of UEs for P&C Ex. Pt would benefit from ongoing facility based therapy, w/ good potential for inpt rehab, post Disch. Performance Deficits/Impairments: Decreased functional mobility , Decreased ADL status, Decreased cognition, Decreased safe awareness, Decreased strength, Decreased endurance, Decreased posture, Decreased balance Decision Making: Medium Complexity Patient Diagnosis(es): The primary encounter diagnosis was CAD in [place] artery. A diagnosis of Coronary artery disease involving coronary bypass graft of [place] heart with angina pectoris with documented spasm (HCC) was also pertinent to this visit. has a past medical history of Anxiety, Atherosclerosis of coronary artery bypass graft of [place] heart without angina pectoris, Chronic kidney disease, GERD (gastroesophageal reflux disease), Hypertension, Ischemic cardiomyopathy, Mobitz type II atrioventricular block, STEMI (ST elevation myocardial infarction) (HCC) (11/16/2018), Stroke ([facility]), and Vertigo. has a past surgical history that includes Coronary stent placement (12/19/2018); Cardiac pacemaker placement (08/02/2018); and Back surgery. Restrictions Restrictions/Precautions Restrictions/Precautions: General Precautions, Fall Risk, Surgical Protocols Required Braces or Orthoses?: No Position Activity Restriction Sternal Precautions: No Pushing, No Pulling, 10# Lifting Restrictions Sternal Precautions: YES Other position/activity restrictions: tele; dobb leonid Vision/Hearing Subjective General Chart Reviewed: Yes Patient Assessed for Rehabilitation Services: Yes Additional Pertinent Hx: DM, PPM 2016 Response To Previous Treatment: Patient with no complaints from previous session. Family / Caregiver Present: No Diagnosis: s/p CABG x 2 and MVR 12/14/22 Follows Commands: Within Functional Limits General Comment Comments: OT present for eval/Tx upon 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 arrival Subjective Subjective: Pt in bed, agreeable to PT. nsg cleared pt for PT Patient Stated Goal: To get stronger, to eventually go home to her dtr's in [place]. Pain Assessment Pain Assessment: (Pt only c/o pain w/ coughing) Cognition/Orientation Overall Cognitive Status: Exceptions Arousal/Alertness: Delayed responses to stimuli Following Commands: Follows one step commands with increased time, Follows one step commands with repetition Attention Span: Attends with cues to redirect Memory: Decreased recall of precautions, Decreased recall of recent events Safety Judgement: Decreased awareness of need for assistance, Decreased awareness of need for safety Problem Solving: Assistance required to identify errors made, Assistance required to generate solutions, Assistance required to implement solutions Insights: Decreased awareness of deficits Initiation: Requires cues for some Sequencing: Requires cues for some Overall Orientation Status: Within Functional Limits Orientation Level: Oriented to place, Oriented to person Objective Bed mobility Comment: Defer to OT for eval Transfers Sit to Stand: Minimal Assistance Stand to sit: Minimal Assistance Comment: x1 from EOB; toilet transfer deferred to OT Ambulation Ambulation: Yes Ambulation 1 Surface 1: Level tile Device 1: Rollator Assistance 1: Minimum assistance, Minimal verbal cues Quality of Gait 1: B foot clearance, shuffling, uneven step length, slow shima, instability throughout all phases Quality of Gait Comment 1: flexed posture w/ downcast eyes; decreased weight shifting; decreased step length & height. Distance (ft) 1: 30ft x3 Comments 1: x2 short stand rest Exercises Knee Long Arc Quad: x5 rep ea LE Ankle Pumps: x10 rep BLE Upper Extremity: P&C Ex #1-4, 8,9 x5-7 rep ea Ex Comments: some AAROM w/ UEs during P&C Ex Other exercises Other exercises?: No Plan Times per Week: 5-7 Plan Weeks: 2 Specific Instructions for Next Treatment: functional strength/endurance training. Current Treatment Recommendations: Strengthening, Balance Training, ROM, Functional Mobility Training, ADL/Self-care Training, IADL Training, Transfer Training, Gait Training, Stair training, Endurance Training, Home Exercise Program, Safety Education & Training, Patient/Caregiver Education & Training, Positioning, Equipment Evaluation, Education, & procurement Plan Comment: Cont PT POC Safety Safety Devices Safety Devices in Place: Yes Type of Devices: All fall risk precautions in place, Call light within reach, Gait belt, Patient at risk for falls, Left in chair, Nurse notified, No alarms engaged upon entry into room Outcomes Score AM-PAC Score AM-PAC Inpatient Mobility Raw Score (No Stairs) : 14 Goals Encounter Problems Encounter Problems (Active) Cardiac Patient will perform bed mobility with supervision in order to improve independence and prepare for out of bed mobility. (Progressing) Start: 12/19/22 Expected End: 01/02/23 Patient will complete sit to stand transfer with supervision to none in order to improve safety and prepare for out of bed mobility. (Progressing) Start: 12/19/22 Expected End: 01/02/23 Patient will ambulate 200 feet or ambulate 5 minutes with supervision with RPE of 14 or lower. (Progressing) Start: 12/19/22 Expected End: 01/02/23 Patient will ascend and descend 3 # stairs with supervision rail for balance only. (Not Addressed) Start: 12/19/22 Expected End: 01/02/23 Patient will be independent with P&C exercises. (Progressing) Start: 12/19/22 Expected End: 01/02/23 Patient will be independent with managing secretions and home walking program. (Progressing) Start: 12/19/22 Expected End: 01/02/23 Pain - Adult Education Education Given To: Patient Education Provided: Plan of Care, Home Exercise Program, Precautions, Goals, Transfer Training, Energy Conservation, General Safety, Functional Mobility Training, Gait Training Education Provided Comments: What to expect after heart surgery booklet with P&C's. Sternal precautions. Use of IS hourly. Ambulating 3-4x daily. Discharge planning. Education Method: Verbal, Demonstration Barriers to Learning: None Education Outcome: Verbalized understanding, Continued education needed Therapy Time Individual Co-treatment Time In 1441 Time Out 1455 Minutes 14 Timed Code Treatment Minutes: 14 Minutes (gt x1) Jovi Kruger PTA Occupational Therapy Facility/Department: [facility] Occupational Therapy Initial Evaluation NAME: Dayana Quiñones : 1940 Date of Service: 12/22/2022 Discharge Recommendations: IP Rehab Assessment REQUIRES OT FOLLOW-UP: Yes Performance deficits / Impairments: Decreased functional mobility , Decreased endurance, Decreased coordination, Decreased ADL status, Decreased strength, Decreased high-level IADLs, Decreased safe awareness, Decreased cognition Assessment: OT eval completed. Pt is functioning below baseline. Pt states she was unaware of her sternal precautions, educated pt, she expressed understanding. Pt completed bed mobility and func transfers with mod A. Pt required mod A for toileting tasks. Recommend IP rehab. If pt is homegoing, recommend 24 hour assist. Prognosis: Good Decision Making: Medium Complexity Activity Tolerance Activity Tolerance: Patient Tolerated treatment well, Patient limited by fatigue Patient Diagnosis(es): The primary encounter diagnosis was CAD in [place] artery. A diagnosis of Coronary artery disease involving coronary bypass graft of [place] heart with angina pectoris with documented spasm ([facility]) was also pertinent to this visit. has a past medical history of Anxiety, Atherosclerosis of coronary artery bypass graft of [place] heart without angina pectoris, Chronic kidney disease, GERD (gastroesophageal reflux disease), Hypertension, Ischemic cardiomyopathy, Mobitz type II atrioventricular block, STEMI (ST elevation myocardial infarction) ([facility]) (11/16/2018), Stroke ([facility]), and Vertigo. has a past surgical history that includes Coronary stent placement (12/19/2018); Cardiac pacemaker placement (08/02/2018); and Back surgery. Restrictions Restrictions/Precautions Restrictions/Precautions: General Precautions, Fall Risk, Surgical Protocols Required Braces or Orthoses?: No Position Activity Restriction Sternal Precautions: No Pushing, No Pulling, 10# Lifting Restrictions Sternal Precautions: YES Other position/activity restrictions: tele; dobb leonid Vision/Hearing Vision: Within Functional Limits Hearing: Functional/adequate for paticipation in therapy Cognition/Orientation Overall Cognitive Status: Exceptions Arousal/Alertness: Delayed responses to stimuli Following Commands: Follows one step commands with increased time, Follows one step commands with repetition Attention Span: Attends with cues to redirect Memory: Decreased recall of precautions, Decreased recall of recent events Safety Judgement: Decreased awareness of need for assistance, Decreased awareness of need for safety Problem Solving: Assistance required to identify errors made, Assistance required to generate solutions, Assistance required to implement solutions Insights: Decreased awareness of deficits Initiation: Requires cues for some Sequencing: Requires cues for some Overall Orientation Status: Within Functional Limits Subjective General Chart Reviewed: Yes Patient Assessed for Rehabilitation Services: Yes Family / Caregiver Present: No Diagnosis: CABG Subjective Subjective: Pt agreeable to OT Patient Stated Goal: none stated Social/Functional History Social/Functional History Lives With: Alone Type of Home: House Home Layout: One level, Performs ADL's on one level, Able to Live on Main level with bedroom/bathroom, Laundry in basement Home Access: Stairs to enter with rails Entrance Stairs - Number of Steps: 3 Bathroom Shower/Tub: Tub/Shower unit Bathroom Toilet: Standard Bathroom Equipment: Grab bars in shower ADL Assistance: Independent Homemaking Assistance: Independent Homemaking Responsibilities: Yes Ambulation Assistance: Independent With device?: No Transfer Assistance: Independent Active Toll Relief Operator: Yes Additional Comments: pt plans to go to her daughter's house upon discharge for recovery. Objective Balance Sitting Balance: Supervision Standing Balance: Contact guard assistance Functional Mobility Functional - Mobility Device: Other (rollator) Activity: To/from bathroom Assist Level: Minimal assistance Functional Mobility Comments: Pt required CGA-min A for ambulation using rollator Toilet Transfers Toilet - Technique: Stand step Equipment Used: Standard bedside commode Toilet Transfer: Moderate assistance ADL Toileting: Moderate assistance Additional Comments: Pt completed toileting tasks and was able to complete posterior bebe-care while seated on toilet, pt required mod A for transfer to and from toilet, OT also provided posterior bebe-care to ensure cleanliness. Coordination Movements Are Fluid And Coordinated: No Coordination and Movement Description: Gross motor impairments, Decreased speed, Decreased accuracy Bed mobility Supine to Sit: Moderate assistance Scooting: Moderate assistance Transfers Sit to stand: Moderate assistance Stand to sit: Moderate assistance Transfer Comments: sit to stand from EOB & toilet, stand to sit to toilet and bedside chair Perception Overall Perceptual Status: WFL LUE AROM (degrees) LUE AROM : WFL Left Hand AROM (degrees) Left Hand AROM: WFL RUE AROM (degrees) RUE AROM : WFL Right Hand AROM (degrees) Right Hand AROM: WFL LUE Strength Gross LUE Strength: WFL RUE Strength Gross RUE Strength: WFL Plan Times per Week: 5-7 Plan Weeks: 4 Current Treatment Recommendations: Strengthening, Gait Training, Patient/Caregiver Education & Training, Home Management Training, Equipment Evaluation, Education, & procurement, Stair training, Balance Training, Functional Mobility Training, Positioning, Endurance Training, Pain Management, Safety Education & Training, Self-Care / ADL, Cognitive Reorientation, Cognitive/Perceptual Training Safety Safety Devices in place: Yes Type of devices: All fall risk precautions in place, Left in chair, Call light within reach, No alarms engaged upon entry into room, Gait belt, Patient at risk for falls Restraints Initially in place: No Outcomes Score AM-PAC Score AM-PAC Inpatient Daily Activity Raw Score: 16 ADL Inpatient CMS G-Code Modifier: CK Goals Encounter Problems Encounter Problems (Active) Bathing Patient will bathe body with supervision Start: 12/22/22 Expected End: 01/19/23 Cognition Patient will attend to task for 3 minutes with no more than 2 cues and supervision Start: 12/22/22 Expected End: 01/19/23 Dressing Upper Extremities Patient will complete upper body dressing with supervision Start: 12/22/22 Expected End: 01/19/23 Dressings Lower Extremities Patient will dress lower body with min A Start: 12/22/22 Expected End: 01/19/23 Mobility Patient will recall/demonstrate sternal precautions with all functional mobility in order to promote healing and safety with functional tasks with mod I Start: 12/22/22 Expected End: 01/19/23 Patient will complete item retrieval with supervision Start: 12/22/22 Expected End: 01/19/23 Toileting Patient will complete toileting tasks at standard toilet with modified independence. Start: 12/22/22 Expected End: 01/19/23 Education Education Given To: Patient Education Provided: OT role, Plan of care, Precautions, Transfer training Education Method: Demonstration Barriers to Learning: Cognition Education Outcome: Continued education needed, Demonstrated understanding Therapy Time Individual Co-treatment Time In 1417 Time Out 1440 Minutes 23 Timed Code Treatment Minutes: 8 Minutes (1- self) Patient's Occupational Therapy Plan of Care [facility]. Goals and/or treatment plan was established in collaboration with patient/family/other representatives. Genesis Goldstein S/OT Patient out of room. Wound care will continue to follow. Images from the original note were not included. Cardiothoracic Surgery/[facility] Progress Note PATIENT NAME: Dayana Quiñones DATE: 12/22/22 HPI: 82-year-old female seen in outpatient setting for surgical evaluation due to progressive shortness of breath with exertion. Patient with significant cardiac history: CAD ([place]-October 2018-NEGRO to LAD and LCx; November 2018-NEGRO to RCA), paroxysmal atrial fibrillation, HFrEF-30%, 2+ MR, Surgery was discussed and patient consented to intervention. Surgery/Procedure: 12/14/22: CABGx2 (PEDRAZA LAD, SVG to OM1) MVRepair (28 ring) LAAL with atriclip with Dr. Chou Interval History: 12/22/22, POD# 8: No acute changes overnight - labs stable CXR unchanged - Pain well controlled - pt christo TF Review of Systems Constitutional: Positive for activity change, appetite change and fatigue. Negative for diaphoresis and fever. Respiratory: Positive for shortness of breath. Negative for cough and wheezing. Cardiovascular: Negative for chest pain, palpitations and leg swelling. Gastrointestinal: Negative for abdominal distention, constipation, diarrhea, nausea and vomiting. Skin: Negative for color change, pallor and rash. Objective: Last BM Date: 12/20/22 Vitals: BP: 96/56, MAP (mmHg): 67, BP Method: Automatic Heart Rate: (!) 122 Resp: 18 Temp: 36.5 C (97.7 F), Temp Source: Temporal BMI (Calculated): 29.84 CXR: BMP: Recent Labs 12/20/22 0213 12/20/22 1412 12/21/22 0030 12/21/22 0445 12/22/22 0335 NA 142 -- 145 -- 146* K 3.2* < > 2.9* 4.2 3.8 CL 102 -- 111* -- 105 CO2 27 -- 25 -- 27 BUN 56* -- 53* -- 52* CREATININE 1.12* -- 0.89 -- 0.81 CALCIUM 9.2 -- 7.5* -- 8.9 MG 2.5* -- 2.0 -- 2.2 < > = values in this interval not displayed. CBC: Recent Labs 12/20/22 0213 12/21/22 0030 12/22/22 0335 WBC 14.9* 11.3* 14.4* HGB 10.7* 9.5* 11.1* HCT 32.3* 28.7* 34.2* PLT 120* 127* 202 MCV 89.7 89.7 91.7 RDW 15.3* 15.4* 15.7* INR: No results for input(s): INR in the last 72 hours. Physical Exam Constitutional: Interventions: Nasal cannula in place. Cardiovascular: Rate and Rhythm: Normal rate and regular rhythm. Pulses: Dorsalis pedis pulses are 2+ on the right side and 2+ on the left side. Heart sounds: Normal heart sounds. No murmur heard. No friction rub. Comments: PPM Pulmonary: Effort: Pulmonary effort is normal. Breath sounds: Decreased breath sounds present. No wheezing or rhonchi. Comments: SOB with activity Musculoskeletal: Right lower leg: No edema. Left lower leg: No edema. Skin: General: Skin is warm and dry. Capillary Refill: Capillary refill takes less than 2 seconds. Coloration: Skin is pale. Findings: Bruising and ecchymosis present. Comments: Surgical Incisions: well approximate; clean dry with no drainage noted. Surrounding skin no redness, warmth, or signs of infection noted. Neurological: Mental Status: She is alert. Psychiatric: Behavior: Behavior is cooperative. 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 ([employer]) Hx Stroke Paroxsymal Afib/mobitz type II AV block Anxiety Dysphagia Post operative Pulm Management: Normal Post-operative Course Acute blood loss anemia/consumptive thrombocytopenia Plan: Patient Status: Telemetry Atrial Tachycardia/Atrial Flutter/Atrial Fibrillation --- Cards following should we consult EP - or do a device check? Appears to have mode changes No left thoracentesis not large enough effusion Medications as ordered ASA & statin Titrate BB to 50 daily Toprol Eliquis for Afib (preop med) - resumed HF consulted - Low dose Entresto - Lasix 40mg PO daily - Farxiga 10mg daily & Aldactone 25mg TF per dietary recs: Glucerna 1.5 @ goal rate 35 ml/hr Insulin per Endo AIR POLLUTION INSPECTOR following - NPO, with dobbhoff TF PT/OT: 12/20- IPR Pulmonary hygiene: IS and Acapella GI prophy: IV protonix DVT prophy:TEDs, SCDs, and Patient on OAC/NOAC Disposition: TBD Central Line: []Yes [x] No Arterial Line: []Yes [x] No Colón: []Yes [x] No Restraints: []Yes [x] No Patient discussed and plan of day developed from multidisciplinary rounds between Cardiothoracic Surgery (Cardiothoracic Surgeon, JACEY) and Critical Care Attending Cardiac Core Medications: ASA, Statin, BB, and Entresto EF: 30% 11/22/22 Blood Conservation: multiple units postop Batching Operator: Dr. Brumfield Associated attestation - Rhett Scott DO - 12/22/2022 7:30 PM EDT This patient was seen and personally examined by me. Labs, imaging studies and electronic medical record reviewed. See [x]progress note []H&P []Consult documented by [x]house sitter / JACEY which reflects my hpi, pmh, psh, ros, fh, sh as well with my additions, as I discussed with the [x]house sitter / JACEY. For my exam, assessment and plan see below. Please see full note for additional information, physical exam. Discussed with: [x]Residents/JACEY [x]Patient/Family [x]RN [] Available Consultants []SW/TCC []Other Personally Reviewed: [x]Epic notes [x]Radiology studies [x]Labs []EKG []Other Chang Changes to plan: with limited assessment and plan: agree with documentation by JACEY Chiqui below Images from the original note were not included. Speech-Language Pathology SPEECH LANGUAGE PATHOLOGY [facility] Dysphagia Treatment Note Patient Name: Dayana Quiñones Evaluation Date: 12/21/2022 Date of : 1940 Admission Date: 12/14/2022 5:46 AM Age: 82 y.o. Room/Bed: T1-114/T1-114 A Subjective Patient alert and cooperative. Seen upright in bedside chair. No visitors at bedside. Spoke with RN Uzma who cleared pt for treatment. Pain: RN managing pain. PPE Worn: gloves Objective & Assessment Dysphagia Treatment # of Activities: 3 Dysphagia Activity 1: oropharyngeal strengthening Dysphagia Activity 2: Free Water Dysphagia Activity 3: PO trials Patient reports that she has not brushed her teeth since yesterday but has ice chips on the bedside table. Completed PO trials. Patient consumed 2 ounces of pudding, 3 boli of applesauce, 5 boli of lemon ice, and 2 ounces of water via small cup sip. Patient uses an effortful swallow with a slight chin tuck for each bolus. Patient uses 2-3 swallows per bolus. Patient maintains a clear and dry vocal quality throughout this session. Patient consistently reports 1 spot of irritation after the swallow in the pharynx but patient patient also reports the same level of irritation in the pharynx even with no PO intake. Suspect same is related to the presence of the Dobbhoff. Patient instructed with additional pharyngeal strengthening exercise (Hosea maneuver). Patient completes same x 7 but requires cued to maintain laryngeal lift for 2 seconds. Patient is independent with Carlene and effortful swallow exercises. Assisted patient to brush teeth and use mouthwash so that she can safely continue the Free Water Protocol . FREE WATER PROTOCOL IS RECOMMENDED FOR THIS PATIENT The free water protocol allows patient who have been identified by AIR POLLUTION INSPECTOR to participate in ice chips/or sips of water between meals when they are NPO or on thickened liquids. Free water Protocol (FWP) assist with decreased dehydration risk, improved compliance with modified diet during meals, and improved quality of life. Necessary Guidelines for Increased SAFETY Of FWP 1. 30 minutes before or after a meal if applicable. 2. Thorough oral care prior to any ice chips/sips of WATER. ([place] teeth, rinse with mouth wash, cleanse oral cavity with swab/toothette) 3. Most upright sitting, no straws, small single sips/ice chips (other strategies as stated) Patient is schedule for a repeat MBSS tomorrow. Plan & Recommendations Plan: Continue Dobbhoff TF and Free Water protocol. Will repeat the MBSS tomorrow. Recommend modified barium swallow study (MBSS) to further assess. D/C Recommendations: to be determined Education Education Given: swallowing strategies, potential for additional diagnostic testing, education of oropharyngeal/oral motor exercise for strengthening Given To: patient Response: verbalizes understanding Goals Patient Stated Goal: To pass the swallow evaluation and resume a PO diet. Encounter Problems Encounter Problems (Active) Swallowing Patient will complete oropharyngeal strengthening exercises to improve swallow function (Progressing) Start: 12/17/22 Expected End: 01/01/23 Patient will tolerate the least restrictive diet consistency to allow for safe consumption of daily meals Start: 12/18/22 Expected End: 01/01/23 Patient will tolerate therapeutic trials of recommended consistency without clinical signs and symptoms of aspiration (Progressing) Start: 12/18/22 Expected End: 01/01/23 Patient will participate in instrumental assessment of swallowing as appropriate Start: 12/21/22 Expected End: 12/22/22 Encounter Problems (Resolved) Swallowing Patient will participate in repeat clinical dysphagia evaluation (Completed) Start: 12/15/22 Expected End: 12/29/22 Resolved: 12/17/22 Patient will participate in instrumental assessment of swallowing as appropriate (Completed) Start: 12/16/22 Expected End: 12/30/22 Resolved: 12/17/22 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 Can continue as tolerated If able to advance p.o. diet recommend goal of regular diet to promote p.o. intake with altered texture/consistency per Speech recommendations >>Monitor diet advancement for appropriate ONS recommendations RD will monitor route/intake/tolerance of nutrition, weight, overall nutrition status and follow weekly Malnutrition Assessment: Malnutrition Status: At risk for malnutrition (Comment) (EN-dependent) Context: Acute Illness Findings of the 6 clinical characteristics of malnutrition: Energy Intake: (NPO x4 days prior to TF initiation- now receiving TF at goal rate to meet >75% estimated needs) Weight Loss: No significant weight loss Fluid Accumulation: No significant fluid 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 Extubated on POD#1 (12/15). +Dysphonia. AIR POLLUTION INSPECTOR following with finding of dysphagia, recommendation for NPO. DHT placed and TF intitated on 12/19. TF running at goal. (Glucerna 1.5 at 35 ml/hr) Estimated Daily Nutrient Needs: Energy Requirements Based On: Kcal/kg Weight Used for Energy Requirements: [place] Weight for Energy Calculation (kg): 52.3 kg Total Energy Requirements (kcals/day): 1308-1569kcals/day Weight Used for Protein Requirements: [place] Weight in Kg Used for Protein Requirements: 52.3 kg Estimated Total Protein (g/day): 63-73gm pro/day, monitor renal function- pt with increased needs d/t surgical wound healing Estimated Daily Total Fluid (ml/day): per MD Recommendations Nutrition Related Findings: Lives with: Alone Teeth: Missing teeth Lam Scale Score: 19 .Wound Type: Surgical Incision (sternal and left pretibial incisions) Net IO Since Admission: 883.6 mL [12/21/22 1451] Edema: RUE Edema: None, LUE Edema: None, RLE Edema: Other (Comment) (none), LLE Edema: Other (Comment) (none) Bowel Sounds (All Quadrants): Active Abdomen Inspection: Soft, Rounded Last BM Date: 12/21/22 Labs and meds reviewed: acetaminophen, 1,000 mg, Oral, q8h apixaban, 5 mg, Oral, BID aspirin, 81 mg, Oral, Daily dapagliflozin, 10 mg, Oral, Daily difluprednate, 1 drop, Left Eye, Every other day erythromycin, , Left Eye, Nightly furosemide, 40 mg, IntraVENous, Once furosemide, 40 mg, Oral, Daily metoprolol succinate XL, 25 mg, Oral, Daily pantoprazole (ProtoNix) 40 mg in sodium chloride (PF) 0.9 % 10 mL injection, 40 mg, IntraVENous, qAM AC polyethylene glycol (PEG) 3350, 17 g, Oral, Daily potassium chloride, 20 mEq, Oral, BID rosuvastatin, 40 mg, Oral, Daily sacubitril-valsartan, 1 tablet, Oral, BID senna-docusate sodium, 2 tablet, Oral, Nightly sodium chloride 0.9%, 10 mL, IntraVENous, 2 times per day spironolactone, 25 mg, Oral, Daily timolol, 1 drop, Left Eye, BID BMP: Recent Labs 12/19/22 0152 12/19/22 0421 12/20/22 0213 12/20/22 1412 12/21/22 0030 12/21/22 0445 NA 143 -- 142 -- 145 -- K 3.4* < > 3.2* 3.4* 2.9* 4.2 CL 101 -- 102 -- 111* -- CO2 28 -- 27 -- 25 -- BUN 48* -- 56* -- 53* -- CREATININE 1.12* -- 1.12* -- 0.89 -- GLUCOSE 104* -- 121* -- 118* -- CALCIUM 9.0 -- 9.2 -- 7.5* -- MG 2.4* -- 2.5* -- 2.0 -- < > = values in this interval not displayed. No results for input(s): POCGLU in the last 72 hours. Lab Results Component Value Date HGBA1C 5.6 12/08/2022 No results found for: VITD25 No results found for: ZINC Lab Results Component Value Date EFBP 39 (A) 12/18/2022 No results found for: CHOL, LDL, HDL, TRIG Current Nutrition Therapies: Diet, tube feeding no tray Nasogastric; Glucerna 1.5 Kenneth; Continuous; Yes; 10; Q 8 Hours; 10; 35 Current Oral Intake Average Meal Intake: NPO Average Supplements Intake: NPO Anthropometric Measures: Height: 160 cm (5' 3 ) Current Body Weight: 76.3 kg (168 lb 3.4 oz) (12/21) Weight Source: Not Specified Admission Body Weight: 76.7 kg (169 lb) (stated 12/14) Usual Body Weight: 77.6 kg (171 lb) (only weight noted per chart review is from 11/14/22: 171#) % Weight Change (Calculated): 0.6 [place] Body Weight (lbs) (Calculated): 115 lbs [place] Body Weight (Kg) (Calculated): 52 kg % [place] Body Weight (Calculated): 149.6 % BMI (kg/m2) (Calculated): 29.8 Weight Adjustment For: No Adjustment BMI Categories: Overweight (BMI 25.0-29.9) Wt Readings from Last 10 Encounters: 12/21/22 76.3 kg (168 lb 3.4 oz) 12/08/22 76.9 kg (169 lb 9.6 oz) 11/29/22 77.6 kg (171 lb) Nutrition Diagnosis: Inadequate oral intake related to swallowing difficulty as evidenced by NPO or clear liquid status due to medical condition (failed MBSS today) Increased nutrient needs related to increase demand for energy/nutrients as evidenced by wounds Nutrition Interventions: Food and/or Nutrient Delivery: Continue NPO, Continue Current Tube Feeding Nutrition Education/Counseling: No recommendation at this time Coordination of Nutrition Care: Continue to monitor while inpatient Goals: Goals: Meet at least 75% of estimated needs, prior to discharge Nutrition Monitoring and Evaluation: Behavioral-Environmental Outcomes: None Identified Food/Nutrient Intake Outcomes: Diet Advancement/Tolerance, Enteral Nutrition Intake/Tolerance Physical Signs/Symptoms Outcomes: Biochemical Data, Chewing or Swallowing, GI Status, Fluid Status or Edema, Hemodynamic Status, Weight, Skin, Nutrition Focused Physical Findings Discharge Planning: Too soon to determine Nathalie Hackett RD, LD Contact: *[phone] or via JOOR chat Physical Therapy Facility/Department: [facility] Physical Therapy Daily Treatment Note NAME: Dayana Quiñones : 1940 Date of Service: 12/21/2022 Discharge Recommendations: IP Rehab PT Equipment Recommendations Equipment Needed: No Other: tbd Assessment Requires PT Follow-Up: Yes Assessment: Pt progressing slowly towards PT goals. Pt required Mod x1 overall for STS from chair and toilet today. Pt required assist to complete pericare after toileting. Pt able to slightly increase overall gait distance today; x2 short stand rest. Pt would benefit from ongoing Facility based therapy post Disch. Performance Deficits/Impairments: Decreased functional mobility , Decreased ADL status, Decreased cognition, Decreased safe awareness, Decreased strength, Decreased endurance, Decreased posture, Decreased balance Decision Making: Medium Complexity Patient Diagnosis(es): The primary encounter diagnosis was CAD in [place] artery. A diagnosis of Coronary artery disease involving coronary bypass graft of [place] heart with angina pectoris with documented spasm (HCC) was also pertinent to this visit. has a past medical history of Anxiety, Atherosclerosis of coronary artery bypass graft of [place] heart without angina pectoris, Chronic kidney disease, GERD (gastroesophageal reflux disease), Hypertension, Ischemic cardiomyopathy, Mobitz type II atrioventricular block, STEMI (ST elevation myocardial infarction) (HCC) (11/16/2018), Stroke ([facility]), and Vertigo. has a past surgical history that includes Coronary stent placement (12/19/2018); Cardiac pacemaker placement (08/02/2018); and Back surgery. Restrictions Restrictions/Precautions Restrictions/Precautions: General Precautions, Fall Risk, Surgical Protocols Required Braces or Orthoses?: No Position Activity Restriction Sternal Precautions: No Pushing, No Pulling, 10# Lifting Restrictions Sternal Precautions: YES Other position/activity restrictions: tele; dobb leonid Vision/Hearing Subjective General Chart Reviewed: Yes Patient Assessed for Rehabilitation Services: Yes Additional Pertinent Hx: DM, PPM 2016 Response To Previous Treatment: Patient with no complaints from previous session. Family / Caregiver Present: No Diagnosis: s/p CABG x 2 and MVR 12/14/22 Follows Commands: Within Functional Limits General Comment Comments: Pt noted to be a little more alert today Subjective Subjective: Pt in chair, requesting to walk to bathroom. nsg cleared Pt for PT. Pt agreeable to PT. Patient Stated Goal: To get stronger, to eventually go home to her dtr's in [place]. Pain Assessment Pain Assessment: (Pt reported no increased pain during PT Rx) Cognition/Orientation Overall Cognitive Status: WFL Arousal/Alertness: Delayed responses to stimuli Following Commands: Follows one step commands with increased time, Follows one step commands with repetition Attention Span: Attends with cues to redirect Memory: Decreased recall of precautions, Decreased recall of recent events, Decreased short term memory Safety Judgement: Decreased awareness of need for assistance, Decreased awareness of need for safety Problem Solving: Assistance required to identify errors made, Assistance required to generate solutions, Assistance required to implement solutions Insights: Decreased awareness of deficits Initiation: Requires cues for some Sequencing: Requires cues for some Cognition Comment: . Overall Orientation Status: Within Functional Limits Orientation Level: Oriented to place, Oriented to person Objective Transfers Sit to Stand: Moderate Assistance Stand to sit: Minimal Assistance Stand Pivot Transfers: Moderate Assistance (toilet transfer) Comment: x1 from chair; x1 from toilet. Pt required Mod x1 for eccentric control to sit on toilet Ambulation Ambulation: Yes Ambulation 1 Surface 1: Level tile Device 1: Rollator Assistance 1: Minimum assistance, Minimal verbal cues Quality of Gait 1: B foot clearance, shuffling, uneven step length, slow shima, instability throughout all phases Quality of Gait Comment 1: flexed posture w/ downcast eyes; decreased weight shifting; decreased step length & height. Distance (ft) 1: 12ft to toilet Comments 1: seated break on toilet. Pt required cues to let go of sternal pillow and grab handles on rollator Ambulation 2 Surface 2: Level tile Device 2: Rollator Assistance 2: Minimum assistance, Minimal verbal cues Quality of Gait 2: B foot clearance, shuffling, uneven step length, slow shima, instability throughout all phases Quality of Gait Comment 2: see above Distance (ft) 2: 30ft x3 Comments 2: x2 stand rest Balance Posture: Fair Sitting - Static: Good, - Sitting - Dynamic: Fair, + Standing - Static: Fair Standing - Dynamic: Fair Comments: pt able to stand at toilet w/ Min x1 for balance w/ UE self support and Dependent BM pericare. Exercises Knee Long Arc Quad: x5 rep ea LE Ankle Pumps: x10 rep BLE Upper Extremity: P&C Ex #1-4, 8,9 x5-7 rep ea Ex Comments: some AAROM w/ UEs during P&C Ex Other exercises Other exercises?: No Plan Times per Week: 5-7 Plan Weeks: 2 Specific Instructions for Next Treatment: functional strength/endurance training. Current Treatment Recommendations: Strengthening, Balance Training, ROM, Functional Mobility Training, ADL/Self-care Training, IADL Training, Transfer Training, Gait Training, Stair training, Endurance Training, Home Exercise Program, Safety Education & Training, Patient/Caregiver Education & Training, Positioning, Equipment Evaluation, Education, & procurement Plan Comment: Cont PT POC Safety Safety Devices Safety Devices in Place: Yes Type of Devices: All fall risk precautions in place, Call light within reach, Gait belt, Patient at risk for falls, Left in chair, Nurse notified, No alarms engaged upon entry into room Outcomes Score AM-PAC Score AM-PAC Inpatient Mobility Raw Score (No Stairs) : 13 Goals Encounter Problems Encounter Problems (Active) Cardiac Patient will perform bed mobility with supervision in order to improve independence and prepare for out of bed mobility. (Not Addressed) Start: 12/19/22 Expected End: 01/02/23 Patient will complete sit to stand transfer with supervision to none in order to improve safety and prepare for out of bed mobility. (Progressing) Start: 12/19/22 Expected End: 01/02/23 Patient will ambulate 200 feet or ambulate 5 minutes with supervision with RPE of 14 or lower. (Progressing) Start: 12/19/22 Expected End: 01/02/23 Patient will ascend and descend 3 # stairs with supervision rail for balance only. (Not Addressed) Start: 12/19/22 Expected End: 01/02/23 Patient will be independent with P&C exercises. (Progressing) Start: 12/19/22 Expected End: 01/02/23 Patient will be independent with managing secretions and home walking program. (Progressing) Start: 12/19/22 Expected End: 01/02/23 Pain - Adult Education Education Given To: Patient Education Provided: Plan of Care, Home Exercise Program, Precautions, Goals, Transfer Training, Energy Conservation, General Safety, Functional Mobility Training, Gait Training Education Provided Comments: What to expect after heart surgery booklet with P&C's. Sternal precautions. Use of IS hourly. Ambulating 3-4x daily. Discharge planning. Education Method: Verbal, Demonstration Barriers to Learning: None Education Outcome: Verbalized understanding, Continued education needed Therapy Time Individual Co-treatment Time In 1245 Time Out 1310 Minutes 25 Timed Code Treatment Minutes: 25 Minutes (FA x1; TP x1) Jovi Kruger PTA [facility] [place] [facility] Cardiology /Electrophysiology Progress Note HPI / Interval History: Dayana Quiñones is a 82 y.o. female with hx of pAF, CAD ([place]-October 2018-NEGRO to LAD and LCx; November 2018-NEGRO to RCA), ICM/HFrEF presenting for CABG. She underwent CABG on 12/14/22: CABGx2 (PEDRAZA LAD, SVG to OM1) MV Repair (28 ring) LAAL with atriclip. She reports feeling more SOB today when she was transferred from bed to chair. Denies dizziness overnight. Assessment/Plan HFrEF (30%) ICM She appears more SOB this morning. JVP slightly increased to [id number]. Decreased air entry on the left lung - Continue low dose entresto BID tonight with parameters. - Switch to Toprol 25mg daily - Will recommend one IV dose of lasix 40mg in the afternoon given slightly increase JVP. - Continue lasix 40mg daily and farxiga 10mg daily. Expect a slight creatinine rise with due to Farxiga tomorrow. - Continue Aldactone 25mg daily - Concern about left pleural effusion. Discussed with primary team for consider of US and possible thoracentesis if needed. - Will sign off, call with any questions. pAF S/p dual chamber PPM Paced rhythm. S/p JES appendage atria clip. - On Eliquis 5mg BID - On BB as above. CAD Moderate to severe MR S/p CABG, MV repair with ring - on ASA and crestor 40mg daily Medications: acetaminophen, 1,000 mg, Oral, q8h apixaban, 5 mg, Oral, BID aspirin, 81 mg, Oral, Daily dapagliflozin, 10 mg, Oral, Daily difluprednate, 1 drop, Left Eye, Every other day erythromycin, , Left Eye, Nightly furosemide, 40 mg, Oral, Daily metoprolol tartrate, 12.5 mg, Oral, BID pantoprazole (ProtoNix) 40 mg in sodium chloride (PF) 0.9 % 10 mL injection, 40 mg, IntraVENous, qAM AC polyethylene glycol (PEG) 3350, 17 g, Oral, Daily potassium chloride, 20 mEq, Oral, BID rosuvastatin, 40 mg, Oral, Daily sacubitril-valsartan, 1 tablet, Oral, BID senna-docusate sodium, 2 tablet, Oral, Nightly sodium chloride 0.9%, 10 mL, IntraVENous, 2 times per day spironolactone, 25 mg, Oral, Daily timolol, 1 drop, Left Eye, BID Infusion Medications: Physical Examination: Vitals: 12/21/22 0200 12/21/22 0300 12/21/22 0400 12/21/22 0600 BP: 108/51 BP Location: Left arm Patient Position: Lying Pulse: 70 78 70 Resp: 14 Temp: 36.8 C (98.2 F) TempSrc: Temporal SpO2: 97% 98% 96% Weight: 168 lb 3.4 oz (76.3 kg) Height: PF: Intake/Output Summary (Last 24 hours) at 12/21/2022 0811 Last data filed at 12/20/20221999 Gross per 24 hour Intake 959 ml Output -- Net 959 ml Wt Readings from Last 3 Encounters: 12/21/22 168 lb 3.4 oz (76.3 kg) 12/08/22 169 lb 9.6 oz (76.9 kg) 11/29/22 171 lb (77.6 kg) Physical Exam Constitutional: General: She is not in acute distress. HENT: Head: Normocephalic and atraumatic. Right Ear: External ear normal. Left Ear: External ear normal. Mouth/Throat: Mouth: Mucous membranes are moist. Eyes: General: No scleral icterus. Conjunctiva/sclera: Conjunctivae normal. Neck: Thyroid: No thyromegaly. Vascular: JVD present. Comments: JVP 11-12cm h20 Cardiovascular: Rate and Rhythm: Regular rhythm. Chest Wall: PMI is not displaced. Heart sounds: No murmur heard. No S3 or S4 sounds. Pulmonary: Effort: Pulmonary effort is normal. Breath sounds: Normal breath sounds. No wheezing or rales. Abdominal: General: Bowel sounds are normal. There is no distension. Palpations: Abdomen is soft. Tenderness: There is no abdominal tenderness. Musculoskeletal: General: No swelling. Cervical back: Neck supple. Right lower leg: No edema. Left lower leg: No edema. Skin: General: Skin is warm and dry. Findings: No rash. Nails: There is no clubbing. Neurological: General: No focal deficit present. Mental Status: She is alert and oriented to person, place, and time. Gait: Gait is intact. Psychiatric: Mood and Affect: Mood normal. Thought Content: Thought content normal. Laboratory Tests: Recent Labs 12/19/22 0152 12/19/22 0421 12/20/22 0213 12/20/22 1412 12/21/22 0030 12/21/22 0445 NA 143 -- 142 -- 145 -- K 3.4* 4.6 3.2* 3.4* 2.9* 4.2 CL 101 -- 102 -- 111* -- CO2 28 -- 27 -- 25 -- BUN 48* -- 56* -- 53* -- CREATININE 1.12* -- 1.12* -- 0.89 -- Recent Labs 12/19/22 0152 12/20/22 0213 12/21/22 0030 WBC 13.3* 14.9* 11.3* HGB 10.1* 10.7* 9.5* HCT 30.2* 32.3* 28.7* MCV 90.2 89.7 89.7 PLT 75* 120* 127* No results for input(s): CKTOTAL, CKMB, CKMBINDEX, TROPONINI in the last 72 hours. No results for input(s): BNP in the last 72 hours. No results for input(s): TRIG, HDL, LDLCALC, CHOL in the last 72 hours. No results found for: LDLCHOLESTER No results found for: TSH EF BP Date Value Ref Range Status 12/18/2022 39 (A) 55 - 100 % Final 12/14/22 TRANSTHORACIC ECHOCARDIOGRAM (TTE) LIMITED (CONTRAST/BUBBLE/3D PRN) 12/18/2022 3:27 PM (Final) Interpretation Summary Left Ventricle: Not well visualized. Left ventricle is mildly dilated. Severely reduced left ventricular systolic function. The EF by visual approximation is 30%. Mild global hypokinesis present. Septal motion is consistent with bundle branch block. Right Ventricle: Normal systolic function. Mitral Valve: Annuloplasty ring repaired valve. Tricuspid Valve: RVSP is 35 mmHg. Left Atrium: Left atrium is moderately dilated. LA Vol Index A/L is 46 mL/m2. No significant valvular abnormalities. Technically difficult study. Signed by: Joseph Balderrama MD on 12/18/2022 3:27 PM Other reports reviewed: Cardiac Tests: Telemetry findings reviewed: AV paced EF BP Date Value Ref Range Status 12/18/2022 39 (A) 55 - 100 % Final Dulce Valladares MD Date Of Service 12/21/2022 I, Dr. Brooks, saw and evaluated the patient. I personally obtained the chang and critical portions of the history and physical exam. I reviewed the chart, the fellow's documentation, and discussed the patient with the fellow. I agree with the fellow's medical decision making and have edited the note to reflect my clinical findings and my assessment and plan. More SOB today. Patient seems volume overloaded. -agree with lasix 40 iv bid today and switch to po lasix 40mg tomorrow -consider left-sided thora -switch to Toprol, continue low dose Entresto, spironolactone, farxiga -will sign off Images from the original note were not included. Cardiothoracic Surgery/[facility] Progress Note PATIENT NAME: Dayana Quiñones DATE: 12/21/22 HPI: 82-year-old female seen in outpatient setting for surgical evaluation due to progressive shortness of breath with exertion. Patient with significant cardiac history: CAD ([place]-October 2018-NEGRO to LAD and LCx; November 2018-NEGRO to RCA), paroxysmal atrial fibrillation, HFrEF-30%, 2+ MR, Surgery was discussed and patient consented to intervention. Surgery/Procedure: 12/14/22: CABGx2 (PEDRAZA LAD, SVG to OM1) MVRepair (28 ring) LAAL with atriclip with Dr. Chou Interval History: 12/21/22, POD# 7: VSS overnight, V-paced rhythm on tele. On RA. She is resting in chair this morning. SOB with ambulation. We discussed her ongoing dysphagia- she denies having a problem with choking prior to surgery. Review of Systems Constitutional: Positive for activity change, appetite change and fatigue. Negative for diaphoresis and fever. Respiratory: Positive for shortness of breath. Negative for cough and wheezing. Cardiovascular: Negative for chest pain, palpitations and leg swelling. Gastrointestinal: Negative for abdominal distention, constipation, diarrhea, nausea and vomiting. Skin: Negative for color change, pallor and rash. Objective: Last BM Date: 12/21/22 Vitals: BP: 108/51, MAP (mmHg): 68, BP Method: Automatic Heart Rate: 70 Resp: 14 Temp: 36.8 C (98.2 F), Temp Source: Temporal BMI (Calculated): 29.8 CXR: BMP: Recent Labs 12/19/22 0152 12/19/22 0421 12/20/22 0213 12/20/22 1412 12/21/22 0030 12/21/22 0445 NA 143 -- 142 -- 145 -- K 3.4* < > 3.2* 3.4* 2.9* 4.2 CL 101 -- 102 -- 111* -- CO2 28 -- 27 -- 25 -- BUN 48* -- 56* -- 53* -- CREATININE 1.12* -- 1.12* -- 0.89 -- CALCIUM 9.0 -- 9.2 -- 7.5* -- MG 2.4* -- 2.5* -- 2.0 -- < > = values in this interval not displayed. CBC: Recent Labs 12/19/22 0152 12/20/22 0213 12/21/22 0030 WBC 13.3* 14.9* 11.3* HGB 10.1* 10.7* 9.5* HCT 30.2* 32.3* 28.7* PLT 75* 120* 127* MCV 90.2 89.7 89.7 RDW 15.5* 15.3* 15.4* INR: No results for input(s): INR in the last 72 hours. Physical Exam Constitutional: Interventions: Nasal cannula in place. Cardiovascular: Rate and Rhythm: Normal rate and regular rhythm. Pulses: Dorsalis pedis pulses are 2+ on the right side and 2+ on the left side. Heart sounds: Normal heart sounds. No murmur heard. No friction rub. Comments: PPM Pulmonary: Effort: Pulmonary effort is normal. Breath sounds: Decreased breath sounds present. No wheezing or rhonchi. Comments: SOB with activity Musculoskeletal: Right lower leg: No edema. Left lower leg: No edema. Skin: General: Skin is warm and dry. Capillary Refill: Capillary refill takes less than 2 seconds. Coloration: Skin is pale. Findings: Bruising and ecchymosis present. Comments: Surgical Incisions: well approximate; clean dry with no drainage noted. Surrounding skin no redness, warmth, or signs of infection noted. Neurological: Mental Status: She is alert. Psychiatric: Behavior: Behavior is cooperative. 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 ([employer]) Hx Stroke Paroxsymal Afib/mobitz type II AV block Anxiety Dysphagia Post operative Pulm Management: Normal Post-operative Course Acute blood loss anemia/consumptive thrombocytopenia Plan: Patient Status: Telemetry Medications as ordered ASA & statin Low dose BB- metoprolol 12.5, switch to toprol today Eliquis for Afib (preop med) - resumed HF consulted - Low dose Entresto - Lasix 40mg PO daily - Farxiga 10mg daily & Aldactone 25mg started today TF per dietary recs: Glucerna 1.5 @ goal rate 35 ml/hr Insulin per Endo AIR POLLUTION INSPECTOR following - NPO, with dobbhoff TF PT/OT: 12/20- IPR Pulmonary hygiene: IS and Acapella GI prophy: IV protonix DVT prophy:TEDs, SCDs, and Patient on OAC/NOAC Addendum: After discussion with HF team, will order one time dose of Lasix 40mg IVP this evening Disposition: TBD Central Line: []Yes [x] No Arterial Line: []Yes [x] No Colón: []Yes [x] No Restraints: []Yes [x] No Patient discussed and plan of day developed from multidisciplinary rounds between Cardiothoracic Surgery (Cardiothoracic Surgeon, JACEY) and Critical Care Attending Cardiac Core Medications: ASA, Statin, BB, and Entresto EF: 30% 11/22/22 Blood Conservation: multiple units postop Batching Operator: Dr. Brumfield Associated attestation - Rhett Scott DO - 12/21/2022 5:04 PM EDT This patient was seen and personally examined by me. Labs, imaging studies and electronic medical record reviewed. See [x]progress note []H&P []Consult documented by [x]house sitter / JACEY which reflects my hpi, pmh, psh, ros, fh, sh as well with my additions, as I discussed with the [x]house sitter / JACEY. For my exam, assessment and plan see below. Please see full note for additional information, physical exam. Discussed with: [x]Residents/JACEY [x]Patient/Family [x]RN [] Available Consultants []SW/TCC []Other Personally Reviewed: [x]Epic notes [x]Radiology studies [x]Labs []EKG []Other POD 7, CABG , MV repair, Dr Chou. No acute events. HFrEF . Dysphagia. AIR POLLUTION INSPECTOR DHT. Progressing appropriately Images from the original note were not included. Speech-Language Pathology SPEECH LANGUAGE PATHOLOGY [facility] Dysphagia Treatment Note Patient Name: Dayana Quiñones Evaluation Date: 12/20/2022 Date of : 1940 Admission Date: 12/14/2022 5:46 AM Age: 82 y.o. Room/Bed: T1114/T1114 A Subjective Patient alert and cooperative. Seen upright in bedside chair. Visitors at bedside - family. Pain: RN managing pain. PPE Worn: gloves Objective & Assessment Dysphagia Treatment # of Activities: 3 Dysphagia Activity 1: oropharyngeal strengthening Dysphagia Activity 2: Free Water Dysphagia Activity 3: PO trials Patient reports that she had already completed oropharyngeal strengthening exercises instructed during last session. Patient had already completed mouth care and had consumed ice chips to facilitate her success with the oropharyngeal exercises. Provided lemon ice, applesauce and pudding for PO trials. Patient uses a chin tuck and an effortful swallow for each bolus. Patient also uses re-swallow x 2-3 for each bolus. Patient reports mild globus sensation in the pharynx but same reportedly diminishes as session progressed. Patient maintained a clear and strong voice throughout. Patient then completed the Carlene x 5 with this therapist. Assisted patient to complete mouth care again in order to resume the free water protocol. Patient was permitted to drink water x 5 (teaspoon bolus size) from a medicine cup. The swallow is not audible and there is no wet vocal quality. Feel patient is making progress and will be on track for a repeat MBSS at the end of this week. FREE WATER PROTOCOL IS RECOMMENDED FOR THIS PATIENT The free water protocol allows patient who have been identified by AIR POLLUTION INSPECTOR to participate in ice chips/or sips of water between meals when they are NPO or on thickened liquids. Free water Protocol (FWP) assist with decreased dehydration risk, improved compliance with modified diet during meals, and improved quality of life. Necessary Guidelines for Increased SAFETY Of FWP 1. 30 minutes before or after a meal if applicable. 2. Thorough oral care prior to any ice chips/sips of WATER. ([place] teeth, rinse with mouth wash, cleanse oral cavity with swab/toothette) 3. Most upright sitting, no straws, small single sips/ice chips (other strategies as stated) Plan & Recommendations Plan: Continue Tomasz GHOTRA. OK for Free Water protocol. Continue acute AIR POLLUTION INSPECTOR therapy per initial plan of care and established goals. D/C Recommendations: to be determined Education Education Given: potential for additional diagnostic testing, education of oropharyngeal/oral motor exercise for strengthening Given To: patient and family - provided written instructions as well Response: verbalizes understanding Goals Patient Stated Goal: To resume a PO diet Encounter Problems Encounter Problems (Active) Swallowing Patient will complete oropharyngeal strengthening exercises to improve swallow function (Progressing) Start: 12/17/22 Expected End: 01/01/23 Patient will tolerate the least restrictive diet consistency to allow for safe consumption of daily meals Start: 12/18/22 Expected End: 01/01/23 Patient will tolerate therapeutic trials of recommended consistency without clinical signs and symptoms of aspiration (Progressing) Start: 12/18/22 Expected End: 01/01/23 Encounter Problems (Resolved) Swallowing Patient will participate in repeat clinical dysphagia evaluation (Completed) Start: 12/15/22 Expected End: 12/29/22 Resolved: 12/17/22 Patient will participate in instrumental assessment of swallowing as appropriate (Completed) Start: 12/16/22 Expected End: 12/30/22 Resolved: 12/17/22 Therapy Time AIR POLLUTION INSPECTOR Individual Minutes Time In: 1105 Time Out: 1130 Minutes: 25 OMARI Maciel Physical Therapy Facility/Department: [facility] Physical Therapy Daily Treatment Note NAME: Dayana Quiñones : 1940 Date of Service: 12/20/2022 Discharge Recommendations: IP Rehab PT Equipment Recommendations Equipment Needed: No Other: tbd Assessment Requires PT Follow-Up: Yes Assessment: Pt limited by decreased functional strength/endurance and balance. Pt required Min/Mod x1 for STS trials today w/ intermittent LE buckling noted on all trials. Pt able to ambulate w/ rollator w/ Min x1 overall for balance. Pt would benefit from ongoing Facility based therapy post Disch. Performance Deficits/Impairments: Decreased functional mobility , Decreased ADL status, Decreased cognition, Decreased safe awareness, Decreased strength, Decreased endurance, Decreased posture, Decreased balance Decision Making: Medium Complexity Patient Diagnosis(es): The primary encounter diagnosis was CAD in [place] artery. A diagnosis of Coronary artery disease involving coronary bypass graft of [place] heart with angina pectoris with documented spasm (HCC) was also pertinent to this visit. has a past medical history of Anxiety, Atherosclerosis of coronary artery bypass graft of [place] heart without angina pectoris, Chronic kidney disease, GERD (gastroesophageal reflux disease), Hypertension, Ischemic cardiomyopathy, Mobitz type II atrioventricular block, STEMI (ST elevation myocardial infarction) (HCC) (11/16/2018), Stroke ([facility]), and Vertigo. has a past surgical history that includes Coronary stent placement (12/19/2018); Cardiac pacemaker placement (08/02/2018); and Back surgery. Restrictions Restrictions/Precautions Restrictions/Precautions: General Precautions, Fall Risk, Surgical Protocols Required Braces or Orthoses?: No Position Activity Restriction Sternal Precautions: No Pushing, No Pulling, 10# Lifting Restrictions Sternal Precautions: YES Other position/activity restrictions: tele; dobb leonid Vision/Hearing Subjective General Chart Reviewed: Yes Patient Assessed for Rehabilitation Services: Yes Additional Pertinent Hx: DM, PPM 2016 Response To Previous Treatment: Patient with no complaints from previous session. Family / Caregiver Present: No Diagnosis: s/p CABG x 2 and MVR 12/14/22 Follows Commands: Within Functional Limits General Comment Comments: pt remains very guarded w/ chest incision; holding pillow splint constantly during all mobility Subjective Subjective: Pt in chair, reports I think I had an aciident in the chair . Pt agreeable to PT. nsg cleared Pt for PT. Patient Stated Goal: To get stronger, to eventually go home to her dtr's in [place]. Pain Assessment Pain Assessment: (Pt reported no increased pain during PT Rx) Cognition/Orientation Overall Cognitive Status: WFL Arousal/Alertness: Delayed responses to stimuli Following Commands: Follows one step commands with increased time, Follows one step commands with repetition Attention Span: Attends with cues to redirect Memory: Decreased recall of precautions, Decreased recall of recent events, Decreased short term memory Safety Judgement: Decreased awareness of need for assistance, Decreased awareness of need for safety Problem Solving: Assistance required to identify errors made, Assistance required to generate solutions Insights: Decreased awareness of deficits Initiation: Requires cues for some Sequencing: Requires cues for some Cognition Comment: cues to keep eyes open during mobility tasks, and to look forward Overall Orientation Status: Within Functional Limits Orientation Level: Oriented to place, Oriented to person Objective Transfers Sit to Stand: Moderate Assistance Stand to sit: Minimal Assistance Stand Pivot Transfers: Moderate Assistance (toilet transfer) Comment: x3 from chair; x1 from toilet. minor LE buckling noted w/ all STS Ambulation Ambulation: Yes Ambulation 1 Surface 1: Level tile Device 1: Rollator Assistance 1: Minimum assistance, Minimal verbal cues Quality of Gait 1: B foot clearance, shuffling, uneven step length, slow shima, instability throughout all phases Quality of Gait Comment 1: flexed posture w/ downcast eyes; decreased weight shifting; decreased step length & height. Distance (ft) 1: 12ft to toilet Ambulation 2 Surface 2: Level tile Device 2: Rollator Assistance 2: Minimum assistance, Minimal verbal cues Quality of Gait 2: B foot clearance, shuffling, uneven step length, slow shima, instability throughout all phases Quality of Gait Comment 2: see above Distance (ft) 2: 20ft x3 Comments 2: x2 stand rest Balance Posture: Fair Sitting - Static: Good, - Sitting - Dynamic: Fair, + Standing - Static: Fair Standing - Dynamic: Fair Comments: pt required Min x1 to scoot back into chair w/o using UEs. Pt required intermittent Min x1 for static standing balance for pericare from 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/RN, x3 rep Exercises Knee Long Arc Quad: x5 rep ea LE Ankle Pumps: x10 rep BLE Upper Extremity: P&C Ex #1-4 x5 rep ea Ex Comments: . Other exercises Other exercises?: No Plan Times per Week: 5-7 Plan Weeks: 2 Specific Instructions for Next Treatment: functional strenth/endurance training. Current Treatment Recommendations: Strengthening, Balance Training, ROM, Functional Mobility Training, ADL/Self-care Training, IADL Training, Transfer Training, Gait Training, Stair training, Endurance Training, Home Exercise Program, Safety Education & Training, Patient/Caregiver Education & Training, Positioning, Equipment Evaluation, Education, & procurement Plan Comment: Cont PT POC Safety Safety Devices Safety Devices in Place: Yes Type of Devices: All fall risk precautions in place, Call light within reach, Gait belt, Patient at risk for falls, Left in chair, Nurse notified, No alarms engaged upon entry into room Restraints Restraints Initially in Place: No Outcomes Score AM-PAC Score AM-PAC Inpatient Mobility Raw Score (No Stairs) : 12 Goals Encounter Problems Encounter Problems (Active) Cardiac Patient will perform bed mobility with supervision in order to improve independence and prepare for out of bed mobility. (Not Addressed) Start: 12/19/22 Expected End: 01/02/23 Patient will complete sit to stand transfer with supervision to none in order to improve safety and prepare for out of bed mobility. (Progressing) Start: 12/19/22 Expected End: 01/02/23 Patient will ambulate 200 feet or ambulate 5 minutes with supervision with RPE of 14 or lower. (Progressing) Start: 12/19/22 Expected End: 01/02/23 Patient will ascend and descend 3 # stairs with supervision rail for balance only. (Not Addressed) Start: 12/19/22 Expected End: 01/02/23 Patient will be independent with P&C exercises. (Progressing) Start: 12/19/22 Expected End: 01/02/23 Patient will be independent with managing secretions and home walking program. (Progressing) Start: 12/19/22 Expected End: 01/02/23 Pain - Adult Education Education Given To: Patient Education Provided: Plan of Care, Home Exercise Program, Precautions, Goals, Transfer Training, Energy Conservation, General Safety, Functional Mobility Training, Gait Training Education Provided Comments: What to expect after heart surgery booklet with P&C's. Sternal precautions. Use of IS hourly. Ambulating 3-4x daily. Discharge planning. Education Method: Demonstration, Verbal Barriers to Learning: None Education Outcome: Verbalized understanding, Continued education needed Therapy Time Individual Co-treatment Time In 1021 Time Out 1045 Minutes 24 Timed Code Treatment Minutes: 24 Minutes (FA x2) Jovi Kruger PTA Images from the original note were not included. Cardiothoracic Surgery/[facility] Progress Note PATIENT NAME: Dayana Quiñones DATE: 12/20/22 HPI: 82-year-old female seen in outpatient setting for surgical evaluation due to progressive shortness of breath with exertion. Patient with significant cardiac history: CAD ([place]-October 2018-NEGRO to LAD and LCx; November 2018-NEGRO to RCA), paroxysmal atrial fibrillation, HFrEF-30%, 2+ MR, Surgery was discussed and patient consented to intervention. Surgery/Procedure: 12/14/22: CABGx2 (PEDRAZA LAD, SVG to OM1) MVRepair (28 ring) LAAL with atriclip with Dr. Chou Interval History: 12/20/22, POD# 6: VSS, AV paced rhythm. On RA. She is resting in chair, tolerating TF. Had multiple BMs overnight. Cr stabilized at 1.12. Review of Systems Constitutional: Positive for activity change, appetite change and fatigue. Negative for diaphoresis and fever. Respiratory: Positive for shortness of breath. Negative for cough and wheezing. Cardiovascular: Negative for chest pain, palpitations and leg swelling. Gastrointestinal: Negative for abdominal distention, constipation, diarrhea, nausea and vomiting. Skin: Negative for color change, pallor and rash. Objective: BM: 12/19/22 Vitals: BP: 117/51, MAP (mmHg): 63, BP Method: Automatic Heart Rate: 70 Resp: 20 Temp: 36.2 C (97.1 F), Temp Source: Temporal BMI (Calculated): 29.92 CXR: BMP: Recent Labs 12/18/22 0306 12/19/22 0152 12/19/22 0421 12/20/22 0213 NA 144 143 -- 142 K 4.0 3.4* 4.6 3.2* CL 105 101 -- 102 CO2 25 28 -- 27 BUN 48* 48* -- 56* CREATININE 1.27* 1.12* -- 1.12* CALCIUM 9.0 9.0 -- 9.2 MG 2.6* 2.4* -- 2.5* CBC: Recent Labs 12/18/22 0306 12/19/22 0152 12/20/22 0213 WBC 13.0* 13.3* 14.9* HGB 9.3* 10.1* 10.7* HCT 28.4* 30.2* 32.3* PLT 58* 75* 120* MCV 90.2 90.2 89.7 RDW 15.6* 15.5* 15.3* INR: No results for input(s): INR in the last 72 hours. Physical Exam Constitutional: Interventions: Nasal cannula in place. Cardiovascular: Rate and Rhythm: Normal rate and regular rhythm. Pulses: Dorsalis pedis pulses are 2+ on the right side and 2+ on the left side. Heart sounds: Normal heart sounds. No murmur heard. No friction rub. Comments: PPM Pulmonary: Effort: Pulmonary effort is normal. Breath sounds: Decreased breath sounds present. No wheezing or rhonchi. Musculoskeletal: Right lower leg: No edema. Left lower leg: No edema. Skin: General: Skin is warm and dry. Capillary Refill: Capillary refill takes less than 2 seconds. Coloration: Skin is pale. Findings: Bruising and ecchymosis present. Comments: Surgical Incisions: well approximate; clean dry with no drainage noted. Surrounding skin no redness, warmth, or signs of infection noted. Neurological: Mental Status: She is alert. Psychiatric: Behavior: Behavior is cooperative. 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 ([employer]) Hx Stroke Paroxsymal Afib/mobitz type II AV block Anxiety Dysphagia Post operative Pulm Management: Normal Post-operative Course Acute blood loss anemia/consumptive thrombocytopenia Plan: Patient Status: Telemetry Medications as ordered ASA & statin Low dose BB- metoprolol 12.5 Continue lasix to 40mg IV BID Eliquis for Afib (preop med) - will resume today TF per dietary recs: Glucerna 1.5 @ goal rate 35 ml/hr Consult to HF for assistance with GDMT Insulin per Endo AIR POLLUTION INSPECTOR following - NPO, with dobbhoff TF PT/OT: 12/19- IPR Pulmonary hygiene: IS and Acapella GI prophy: IV protonix DVT prophy:TEDs, SCDs, and Patient on OAC/NOAC Disposition: TBD Central Line: []Yes [x] No Arterial Line: []Yes [x] No Colón: []Yes [x] No Restraints: []Yes [x] No Patient discussed and plan of day developed from multidisciplinary rounds between Cardiothoracic Surgery (Cardiothoracic Surgeon, JACEY) and Critical Care Attending Cardiac Core Medications: ASA, Statin, and BB EF: 30% 11/22/22 Blood Conservation: multiple units postop Batching Operator: Dr. Brumfield Associated attestation - Rhett Scott DO - 12/20/2022 4:00 PM EDT This patient was seen and personally examined by me. Labs, imaging studies and electronic medical record reviewed. See [x]progress note []H&P []Consult documented by [x]house sitter / JACEY which reflects my hpi, pmh, psh, ros, fh, sh as well with my additions, as I discussed with the [x]house sitter / JACEY. For my exam, assessment and plan see below. Please see full note for additional information, physical exam. Discussed with: [x]Residents/JACEY [x]Patient/Family [x]RN [] Available Consultants []SW/TCC []Other Personally Reviewed: [x]Epic notes [x]Radiology studies [x]Labs []EKG []Other Chang Changes to plan: with limited assessment and plan: no acute events. DBH. Tolerating po/ bowel regiment. AC resumed for afib. Discharge planning . CAD s/p CABG Severe MR s/p MVRepair HFrEF 30 Trini on ckd Ppm Afib, Dysphagia. Plan:Resumed po GDMT, AC. DHT ongoing eval with AIR POLLUTION INSPECTOR MBSS. Stable oxygenation and ventilation Images from the original note were not included. Speech-Language Pathology SPEECH LANGUAGE PATHOLOGY [facility] Dysphagia Treatment Note Patient Name: Dayana Quiñones Evaluation Date: 12/19/2022 Date of : 1940 Admission Date: 12/14/2022 5:46 AM Age: 82 y.o. Room/Bed: T1-114/T1-114 A Subjective Patient alert and cooperative. Seen upright in bedside chair. No visitors at bedside. Spoke with RN who cleared pt for treatment. Dobbhoff just placed. Pain: RN managing pain. PPE Worn: gloves Objective & Assessment Dysphagia Treatment # of Activities: 2 Dysphagia Activity 1: oropharyngeal strengthening Dysphagia Activity 2: Free Water Patient taking ice chips. Reinforce Free water protocol to ensure appropriate mouth care prior to taking water or ice. Instructed the effortful swallow and Carlene techniques. Patient completes same after only short instruction. Patient completes 2 effortful swallows with an ice chip and then 3 Carlene after the ice is cleared from the oral cavity. Patient completes this sequence x 3. FREE WATER PROTOCOL IS RECOMMENDED FOR THIS PATIENT The free water protocol allows patient who have been identified by AIR POLLUTION INSPECTOR to participate in ice chips/or sips of water between meals when they are NPO or on thickened liquids. Free water Protocol (FWP) assist with decreased dehydration risk, improved compliance with modified diet during meals, and improved quality of life. Necessary Guidelines for Increased SAFETY Of FWP 1. 30 minutes before or after a meal if applicable. 2. Thorough oral care prior to any ice chips/sips of WATER. ([place] teeth, rinse with mouth wash, cleanse oral cavity with swab/toothette) 3. Most upright sitting, no straws, small single sips/ice chips (other strategies as stated) Plan & Recommendations Plan: Continue acute AIR POLLUTION INSPECTOR therapy per initial plan of care and established goals. Recommend NPO with Dobbhoff TF and Free Water Protocol D/C Recommendations: to be determined Education Education Given: education of oropharyngeal/oral motor exercise for strengthening, Free Water Protocol Given To: patient and RN Response: verbalizes understanding Goals Patient Stated Goal: To resume a regular diet. Encounter Problems Encounter Problems (Active) Swallowing Patient will complete oropharyngeal strengthening exercises to improve swallow function (Progressing) Start: 12/17/22 Expected End: 01/01/23 Patient will tolerate the least restrictive diet consistency to allow for safe consumption of daily meals Start: 12/18/22 Expected End: 01/01/23 Patient will tolerate therapeutic trials of recommended consistency without clinical signs and symptoms of aspiration (Progressing) Start: 12/18/22 Expected End: 01/01/23 Encounter Problems (Resolved) Swallowing Patient will participate in repeat clinical dysphagia evaluation (Completed) Start: 12/15/22 Expected End: 12/29/22 Resolved: 12/17/22 Patient will participate in instrumental assessment of swallowing as appropriate (Completed) Start: 12/16/22 Expected End: 12/30/22 Resolved: 12/17/22 Therapy Time AIR POLLUTION INSPECTOR Individual Minutes Time In: 1145 Time Out: 1200 Minutes: 15 OMARI Maciel Physical Therapy Facility/Department: [facility] Physical Therapy Initial Evaluation NAME: Dayana Quiñones : 1940 Date of Service: 12/19/2022 Discharge Recommendations: IP Rehab PT Equipment Recommendations Equipment Needed: No Assessment Requires PT Follow-Up: Yes Assessment: Pt is s/p CABG x 2 and MVR 12/14/22. She is limited d/t limited endurance and slightly decreased cognition. Pt with poor carry over of information given and closing eyes throughout conversation. Increased assistance needed for transfers and brief ambulation with FWW. Pt is at risk for falls and lives alone. She is Indep at baseline. Recommend disch to IP Rehab to restore PLOF as Indep and reduce risk for falls. Performance Deficits/Impairments: Decreased functional mobility , Decreased ADL status, Decreased cognition, Decreased safe awareness, Decreased strength, Decreased endurance, Decreased posture, Decreased balance Decision Making: Medium Complexity Activity Tolerance Activity Tolerance: Patient limited by fatigue, Patient limited by endurance, Patient limited by cognitive status Patient Diagnosis(es): The primary encounter diagnosis was CAD in [place] artery. A diagnosis of Coronary artery disease involving coronary bypass graft of [place] heart with angina pectoris with documented spasm ([facility]) was also pertinent to this visit. has a past medical history of Anxiety, Atherosclerosis of coronary artery bypass graft of [place] heart without angina pectoris, Chronic kidney disease, GERD (gastroesophageal reflux disease), Hypertension, Ischemic cardiomyopathy, Mobitz type II atrioventricular block, STEMI (ST elevation myocardial infarction) ([facility]) (11/16/2018), Stroke ([facility]), and Vertigo. has a past surgical history that includes Coronary stent placement (12/19/2018); Cardiac pacemaker placement (08/02/2018); and Back surgery. Restrictions Restrictions/Precautions Restrictions/Precautions: General Precautions, Fall Risk, Surgical Protocols Required Braces or Orthoses?: No Position Activity Restriction Sternal Precautions: No Pushing, No Pulling, 10# Lifting Restrictions Sternal Precautions: YES Other position/activity restrictions: tele Vision/Hearing Cognition/Orientation Overall Cognitive Status: Exceptions Memory: Decreased recall of precautions, Decreased recall of recent events, Decreased short term memory Insights: Decreased awareness of deficits Initiation: Requires cues for some Sequencing: Requires cues for some Cognition Comment: Lethargic with difficulty keeping eyes open during conversation. Poor use of IS with multiple commands to perform correctly. Decreased recall of sternal precautions and not using the arms for transfers. Overall Orientation Status: Within Functional Limits Orientation Level: Oriented to person, Oriented to place, Oriented to time Subjective General Chart Reviewed: Yes Patient Assessed for Rehabilitation Services: Yes Additional Pertinent Hx: DM, PPM 2016 Family / Caregiver Present: No Diagnosis: s/p CABG x 2 and MVR 12/14/22 Subjective Subjective: Pt in the recliner and agreeable to PT. RN OK with PT to see pt. Pt reporting faigue as chief complaint. Patient Stated Goal: To get stronger, to eventually go home to her dtr's in [place]. Social/Functional History Social/Functional History Lives With: Alone Type of Home: House Home Layout: One level Home Access: Stairs to enter with rails Entrance Stairs - Number of Steps: 3 Home Equipment: (Dtr may have a FWW) ADL Assistance: Independent Homemaking Assistance: Independent Ambulation Assistance: Independent With device?: No Transfer Assistance: Independent Active Toll Relief Operator: Yes Additional Comments: Lives alone, limited support in the area for homegoing. But per pt repots, she may go to her dtr's in [place] at [facility] with 1 story set up and level entry. Dtr may have a FWW for her. Objective AROM RLE (degrees) RLE AROM: WFL AROM LLE (degrees) LLE AROM : WFL Strength RLE Comment: 4/5 knee extension and ankle DF Strength LLE Comment: 4/5 knee extension and ankle DF Bed mobility Scooting: Moderate assistance Comment: NT- in recliner to start and finish. Assist for scooting in the recliner without UE use. Transfers Sit to Stand: Moderate Assistance Stand to sit: Moderate Assistance Stand Pivot Transfers: Moderate Assistance Comment: STS compleed x 3 throughout session. Cues for sternal precautions throughout. Ambulation Ambulation: No Ambulation 1 Surface 1: Level tile Device 1: Rolling walker Assistance 1: Minimum assistance Quality of Gait 1: slow shima, No gait deviations Distance (ft) 1: 50 ft x 2 (seated rest break in chair in [place] prior to returning to room) Comments 1: Pt reported chief c/o fatigue as limiting factor. Denied pain and SOB throughout. HR 80's throughout. Balance Posture: Fair Sitting - Static: Good Sitting - Dynamic: Good Standing - Static: Fair Standing - Dynamic: Fair Exercises Comments: IS x 10: 500mL (poor use/ pull with multiple cus for form) Plan Times per Week: 5-7 Plan Weeks: 2 Current Treatment Recommendations: Strengthening, Balance Training, ROM, Functional Mobility Training, ADL/Self-care Training, IADL Training, Transfer Training, Gait Training, Stair training, Endurance Training, Home Exercise Program, Safety Education & Training, Patient/Caregiver Education & Training, Positioning, Equipment Evaluation, Education, & procurement Safety Safety Devices Safety Devices in Place: Yes Type of Devices: Left in chair, Call light within reach, Nurse notified, Patient at risk for falls Restraints Restraints Initially in Place: No Outcomes Score AM-PAC Score AM-PAC Inpatient Mobility Raw Score (No Stairs) : 12 Goals Encounter Problems Encounter Problems (Active) Cardiac Patient will perform bed mobility with supervision in order to improve independence and prepare for out of bed mobility. Start: 12/19/22 Expected End: 01/02/23 Patient will complete sit to stand transfer with supervision to none in order to improve safety and prepare for out of bed mobility. Start: 12/19/22 Expected End: 09/05/23 Patient will ambulate 200 feet or ambulate 5 minutes with supervision with RPE of 14 or lower. Start: 12/19/22 Expected End: 01/02/23 Patient will ascend and descend 3 # stairs with supervision rail for balance only. Start: 12/19/22 Expected End: 01/02/23 Patient will be independent with P&C exercises. Start: 12/19/22 Expected End: 01/02/23 Patient will be independent with managing secretions and home walking program. Start: 12/19/22 Expected End: 01/02/23 Pain - Adult Education Education Given To: Patient Education Provided: Goals, PT Role, Plan of Care, Discharge recommendations Education Provided Comments: What to expect after heart surgery booklet with P&C's. Sternal precautions. Use of IS hourly. Ambulating 3-4x daily. Discharge planning. Education Method: Demonstration, Verbal, Printed Information/Hand-outs Barriers to Learning: None Education Outcome: Verbalized understanding, Demonstrated understanding Therapy Time Individual Co-treatment Time In 09 Time Out 0935 Minutes 26 Patient s Physical Therapy Plan of Care supervision is transferred to [facility] Rehab Department Physical Therapist. Rowena Saldaña PT Images from the original note were not included. Cardiothoracic Surgery/[facility] Progress Note PATIENT NAME: Dayana Quiñones DATE: 12/19/22 HPI: 82-year-old female seen in outpatient setting for surgical evaluation due to progressive shortness of breath with exertion. Patient with significant cardiac history: CAD ([place]-October 2018-NEGRO to LAD and LCx; November 2018-NEGRO to RCA), paroxysmal atrial fibrillation, HFrEF-30%, 2+ MR, Surgery was discussed and patient consented to intervention. Surgery/Procedure: 12/14/22: CABGx2 (PEDRAZA LAD, SVG to OM1) MVRepair (28 ring) LAAL with atriclip with Dr. Chou Interval History: 12/19/22, POD# 5: VSS, AV paced rhythm. On 2L NC. AIR POLLUTION INSPECTOR following, continue NPO, plan to repeat MBSS later this week. Repeat echo completed yesterday, see below. TTE limited 12/18: Left Ventricle: Not well visualized. Left ventricle is mildly dilated. Severely reduced left ventricular systolic function. The EF by visual approximation is 30%. Mild global hypokinesis present. Septal motion is consistent with bundle branch block. Right Ventricle: Normal systolic function. Mitral Valve: Annuloplasty ring repaired valve. Tricuspid Valve: RVSP is 35 mmHg. Left Atrium: Left atrium is moderately dilated. LA Vol Index A/L is 46 mL/m2. No significant valvular abnormalities. Technically difficult study. Review of Systems Constitutional: Positive for activity change, appetite change and fatigue. Negative for diaphoresis and fever. Respiratory: Positive for shortness of breath. Negative for cough and wheezing. Cardiovascular: Negative for chest pain, palpitations and leg swelling. Gastrointestinal: Negative for abdominal distention, constipation, diarrhea, nausea and vomiting. Skin: Negative for color change, pallor and rash. Objective: Vitals: BP: 111/57, MAP (mmHg): 74, BP Method: Automatic Heart Rate: 70 Resp: 16 Temp: 36 C (96.8 F), Temp Source: Temporal BMI (Calculated): 30.27 CXR: BMP: Recent Labs 12/17/22 0015 12/18/22 0306 12/19/22 0152 12/19/22 0421 NA 145 144 143 -- K 4.5 4.0 3.4* 4.6 CL 108* 105 101 -- CO2 23 25 28 -- BUN 38* 48* 48* -- CREATININE 1.45* 1.27* 1.12* -- CALCIUM 8.6 9.0 9.0 -- MG 2.6* 2.6* 2.4* -- CBC: Recent Labs 12/17/22 0015 12/18/22 0306 12/19/22 0152 WBC 16.4* 13.0* 13.3* HGB 9.7* 9.3* 10.1* HCT 29.4* 28.4* 30.2* PLT 56* 58* 75* MCV 90.2 90.2 90.2 RDW 15.8* 15.6* 15.5* INR: Recent Labs 12/17/22 0015 INR 1.4* Physical Exam Constitutional: Interventions: Nasal cannula in place. Cardiovascular: Rate and Rhythm: Normal rate and regular rhythm. Pulses: Dorsalis pedis pulses are 2+ on the right side and 2+ on the left side. Heart sounds: Normal heart sounds. No murmur heard. No friction rub. Comments: PPM Pulmonary: Effort: Pulmonary effort is normal. Breath sounds: Decreased breath sounds present. No wheezing or rhonchi. Comments: Course cough Musculoskeletal: Right lower leg: No edema. Left lower leg: No edema. Skin: General: Skin is warm and dry. Capillary Refill: Capillary refill takes less than 2 seconds. Coloration: Skin is pale. Findings: Bruising and ecchymosis present. Comments: Surgical Incisions: well approximate; clean dry with no drainage noted. Surrounding skin no redness, warmth, or signs of infection noted. Neurological: Mental Status: She is alert. Psychiatric: Behavior: Behavior is cooperative. 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 ([employer]) Hx Stroke Paroxsymal Afib/mobitz type II AV block Anxiety Post operative Pulm Management: Normal Post-operative Course Acute blood loss anemia/consumptive thrombocytopenia Plan: Patient Status: Telemetry Medications as ordered ASA & statin - hold d/t NPO Continue lasix to 40mg IV BID Eliquis for Afib (preop med)- hold d/t NPO Plan to place Dobhoff, then resume PO meds Will need consult to HF for GDMT once able to take PO meds Insulin per Endo AIR POLLUTION INSPECTOR following - NPO, recommend non-oral medications - Recommend Dobhoff Remove IJ PT/OT: needs assessment Pulmonary hygiene: IS and Acapella GI prophy: IV protonix DVT prophy:TEDs, SCDs, and holding d/t thrombocytopenia Disposition: TBD Central Line: [x]Yes [] No Arterial Line: []Yes [x] No Colón: []Yes [x] No Restraints: []Yes [x] No Patient discussed and plan of day developed from multidisciplinary rounds between Cardiothoracic Surgery (Cardiothoracic Surgeon, JACEY) and Critical Care Attending Cardiac Core Medications: on hold dt NPO EF: 30% 11/22/22 Blood Conservation: multiple units postop Batching Operator: Dr. Brumfield Associated attestation - Rhett Scott DO - 12/19/2022 5:38 PM EDT This patient was seen and personally examined by me. Labs, imaging studies and electronic medical record reviewed. See [x]progress note []H&P []Consult documented by [x]house sitter / JACEY which reflects my hpi, pmh, psh, ros, fh, sh as well with my additions, as I discussed with the [x]house sitter / JACEY. For my exam, assessment and plan see below. Please see full note for additional information, physical exam. Discussed with: [x]Residents/JACEY [x]Patient/Family [x]RN [] Available Consultants []SW/TCC []Other Personally Reviewed: [x]Epic notes [x]Radiology studies [x]Labs []EKG []Other Chang Changes to plan: with limited assessment and plan: No acute events. NPO , AIR POLLUTION INSPECTOR. DHT placement. Planned repeat MBSS. Echo HFrEF 30, rvsp 35 A/P CAD s/p CABG Severe MR s/p MVRepair HFrEF 30 Trini on ckd Ppm Afib, Dysphagia. Plan:Resumed po GDMT, AC. DHT placement due to dyphagia, ongoing eval with AIR POLLUTION INSPECTOR . Stable oxygenation and ventilation. Images from the original note were not included. Speech-Language Pathology SPEECH LANGUAGE PATHOLOGY [facility] Dysphagia Treatment Note Patient Name: Dayana Quiñones Evaluation Date: 12/18/2022 Date of : 1940 Admission Date: 12/14/2022 5:46 AM Age: 82 y.o. Room/Bed: T1-114/T1-114 A Subjective Patient alert and cooperative. Seen upright in bedside chair. Visitors at bedside - granddaughter. Spoke with MANAS Alexandre who cleared pt for treatment. Patient currently has no source for nutrition. Pain: RN managing pain. PPE Worn: gloves Objective & Assessment Dysphagia Treatment # of Activities: 2 Dysphagia Activity 1: PO trials Dysphagia Activity 2: Free Water Reviewed the images from the MBSS completed 12/17/2022. Discussed results and recommendations from same with patient and family. Completed puree and moderately thick PO trials. Patient was educated to use a chin tuck and effortful swallow as well as a re-swallow. Patient reported a globus pharyngeal sensation after 1 bolus of applesauce. Patient also took 3 teaspoons of moderately thick juice with less but still some pharyngeal globus sensation. Patient was cued to expectorate and re-swallow. Patient maintained a clear voice throughout. However, patient was not reliable on the MBSS to cough with airway penetration consistently. Then assisted patient to complete thorough mouth-care prior to introduction of a free water protocol. Patient took 4 teaspoons of water and 1 ice chip. Patient has no complaint of sticking ion the throat with water. Again, patient maintains a clear and dry vocal quality. Feel this patient will require a short term non oral source for nutrition (Dobbhoff). FREE WATER PROTOCOL IS RECOMMENDED FOR THIS PATIENT The free water protocol allows patient who have been identified by AIR POLLUTION INSPECTOR to participate in ice chips/or sips of water between meals when they are NPO or on thickened liquids. Free water Protocol (FWP) assist with decreased dehydration risk, improved compliance with modified diet during meals, and improved quality of life. Necessary Guidelines for Increased SAFETY Of FWP 1. 30 minutes before or after a meal if applicable. 2. Thorough oral care prior to any ice chips/sips of WATER. ([place] teeth, rinse with mouth wash, cleanse oral cavity with swab/toothette) 3. Most upright sitting, no straws, small single sips/ice chips (other strategies as stated) Plan & Recommendations Plan: Recommend NPO with a non oral source for nutrition (Dobbhoff). OK for Free Water Protocol as described above. Will continue the dysphagia plan of care and introduce oropharyngeal strengthening next date. Anticipate patient will require a repeat MBSS prior to resuming a PO diet. Optimistically, could set a goal to repeat the MBSS on . Continue acute AIR POLLUTION INSPECTOR therapy per initial plan of care and established goals. D/C Recommendations: to be determined Education Education Given: goals explained, diet recommendations, potential for additional diagnostic testing Given To: patient, granddaughter, and RN Response: verbalizes understanding Goals Patient Stated Goal: To have water. Encounter Problems Encounter Problems (Active) Swallowing Patient will complete oropharyngeal strengthening exercises to improve swallow function Start: 12/17/22 Expected End: 01/01/23 Patient will tolerate the least restrictive diet consistency to allow for safe consumption of daily meals Start: 12/18/22 Expected End: 01/01/23 Patient will tolerate therapeutic trials of recommended consistency without clinical signs and symptoms of aspiration Start: 12/18/22 Expected End: 01/01/23 Encounter Problems (Resolved) Swallowing Patient will participate in repeat clinical dysphagia evaluation (Completed) Start: 12/15/22 Expected End: 12/29/22 Resolved: 12/17/22 Patient will participate in instrumental assessment of swallowing as appropriate (Completed) Start: 12/16/22 Expected End: 12/30/22 Resolved: 12/17/22 Therapy Time AIR POLLUTION INSPECTOR Individual Minutes Time In: 1145 Time Out: 1210 Minutes: 25 OMARI Maciel Images from the original note were not included. Cardiothoracic Surgery/[facility] Progress Note PATIENT NAME: Dayana Quiñones DATE: 12/18/22 HPI: 82-year-old female seen in outpatient setting for surgical evaluation due to progressive shortness of breath with exertion. Patient with significant cardiac history: CAD ([place]-October 2018-NEGRO to LAD and LCx; November 2018-NEGRO to RCA), paroxysmal atrial fibrillation, HFrEF-30%, 2+ MR, Surgery was discussed and patient consented to intervention. Surgery/Procedure: 12/14/22: CABGx2 (PEDRAZA LAD, SVG to OM1) MVRepair (28 ring) LAAL with atriclip with Dr. Chou Interval History: 12/18/22, POD# 4: VSS overnight, paced rhythm. On 2L NC. Cr improving 1.27 today. Incontinent of urine overnight. Failed barium swallow- continue NPO per AIR POLLUTION INSPECTOR. Needs BM. Review of Systems Constitutional: Positive for activity change, appetite change and fatigue. Negative for diaphoresis and fever. Respiratory: Positive for shortness of breath. Negative for cough and wheezing. Cardiovascular: Negative for chest pain, palpitations and leg swelling. Gastrointestinal: Negative for abdominal distention, constipation, diarrhea, nausea and vomiting. Skin: Negative for color change, pallor and rash. Objective: UO cc/24hrs: 800 mL + unmeasured Vitals: BP: 113/58, MAP (mmHg): 74, BP Method: Automatic Heart Rate: 72 Resp: 18 Temp: 36.7 C (98 F), Temp Source: Temporal BMI (Calculated): 30.53 CXR: BMP: Recent Labs 12/16/22 0001 12/17/22 0015 12/18/22 0306 NA 141 145 144 K 4.7 4.5 4.0 CL 109* 108* 105 CO2 25 BUN 27* 38* 48* CREATININE 1.64* 1.45* 1.27* CALCIUM 8.4 8.6 9.0 MG 2.6* 2.6* 2.6* CBC: Recent Labs 12/16/22 0001 12/17/22 0015 12/18/22 0306 WBC 12.3* 16.4* 13.0* HGB 9.5* 9.7* 9.3* HCT 28.7* 29.4* 28.4* PLT 47* 56* 58* MCV 90.4 90.2 90.2 RDW 16.1* 15.8* 15.6* INR: Recent Labs 12/16/22 0001 12/17/22 0015 INR 1.3* 1.4* Physical Exam Constitutional: Interventions: Nasal cannula in place. Cardiovascular: Rate and Rhythm: Normal rate and regular rhythm. Pulses: Dorsalis pedis pulses are 2+ on the right side and 2+ on the left side. Heart sounds: Normal heart sounds. No murmur heard. No friction rub. Comments: PPM Pulmonary: Effort: Pulmonary effort is normal. Breath sounds: Decreased breath sounds present. No wheezing or rhonchi. Comments: Course cough Musculoskeletal: Right lower leg: No edema. Left lower leg: No edema. Skin: General: Skin is warm and dry. Capillary Refill: Capillary refill takes less than 2 seconds. Coloration: Skin is pale. Findings: Bruising and ecchymosis present. Comments: Surgical Incisions: well approximate; clean dry with no drainage noted. Surrounding skin no redness, warmth, or signs of infection noted. Neurological: Mental Status: She is alert. Psychiatric: Behavior: Behavior is cooperative. 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 ([employer]) Hx Stroke Paroxsymal Afib/mobitz type II AV block Anxiety Post operative Pulm Management: Normal Post-operative Course Acute blood loss anemia/consumptive thrombocytopenia Plan: Patient Status: Telemetry Medications as ordered ASA & statin - hold d/t NPO Increase lasix to 40mg IV BID Eliquis for Afib (preop med)- hold d/t NPO Insulin per Endo AIR POLLUTION INSPECTOR following - NPO, recommend non-oral medications Order limited Echo to re-eval valve & EF PT/OT: needs assessment Pulmonary hygiene: IS and Acapella GI prophy: IV protonix DVT prophy:TEDs, SCDs, and holding d/t thrombocytopenia Disposition: TBD Central Line: [x]Yes [] No Arterial Line: []Yes [x] No Colón: []Yes [x] No Restraints: []Yes [x] No Patient discussed and plan of day developed from multidisciplinary rounds between Cardiothoracic Surgery (Cardiothoracic Surgeon, JACEY) and Critical Care Attending Cardiac Core Medications: on hold dt NPO EF: 30% 11/22/22 Blood Conservation: multiple units postop Batching Operator: Dr. Brumfield Associated attestation - Rhett Scott DO - 12/18/2022 4:20 PM EDT This patient was seen and personally examined by me. Labs, imaging studies and electronic medical record reviewed. See [x]progress note []H&P []Consult documented by [x]house sitter / JACEY which reflects my hpi, pmh, psh, ros, fh, sh as well with my additions, as I discussed with the [x]house sitter / JACEY. For my exam, assessment and plan see below. Please see full note for additional information, physical exam. Discussed with: [x]Residents/JACEY [x]Patient/Family [x]RN [] Available Consultants []SW/TCC []Other Personally Reviewed: [x]Epic notes [x]Radiology studies [x]Labs []EKG []Other Chang Changes to plan: with limited assessment and plan: No acute events. [place]. Ct reviewed baseline interstitial peripheral changes with likely chronic aspiration -mvCAD s/p CABGx2 -MVR s/p mitral valve repair -HFrEF -HTN -CKD -GERD -PPM (2019) -Prior CVA -pAF, mobitz II AV block -Anxiety -Leukocytosis- reactive -Thrombocytopenia - consumptive -ABLA -ILD Plan: AIR POLLUTION INSPECTOR eval. NPO, MBSS, , OP strengthening. Npo at this time. Stable respiratory , on NC, HD stable. Repeat echo. EF 30 . RVSP 35 . LA dilation Excluding procedures, the total critical care time caring for this patient with life threatening, unstable organ failure, including direct patient contact, review of medical record, management of life support systems, review of data including imaging and labs, discussions with other team members, patient's family and physicians at least 35 minutes so far today. Nutrition Assessment Type and Reason for Visit: Initial (tech referral for CABG and dysphagia) Nutrition Recommendations/Plan: 1. Pt is currently NPO. Pt is POD #3 CABGx2 (PEDRAZA LAD, SVG to OM1) MVRepair (28 ring) LAAL with atriclip on 12/14/22. Pt was extubated on 12/15 and AIR POLLUTION INSPECTOR recommending NPO. Pt went for MBSS today with continued NPO recommendations. Recommend pt not be without nutrition source for >72 hours if medically able. --> if pt is able to be cleared for oral diet, consider goal of Low Fat/Low Chol/High Fiber/ABI given recent cardiac operation. Pt with surgical wounds to sternum and left pretibial- would benefit from ONS such as Arnoldo vs Ensure to promote wound healing pending pt preference. If pt is not cleared for thin liquids could always consider Magic Cup as well. --> should nutrition via alternate route be required, consider goal EN: Glucerna 1.5 @ goal rate of 35mls/hr to provide 1260kcals, 69gm protein, 637mL free fluid (24kcals/kg, 1.3gm/kg IBW). Pt does not have DM history however currently with increased needs for protein as well as need for optimal BG control to aide in surgical wound healing. 2. Will continue to monitor tolerance of nutrition once initiated via appropriate route. 3. Did not feel now was appropriate time for education given that pt was sleeping soundly and currently without means of nutrition- will monitor throughout admit for more appropriate time for cardiac diet education if warranted. 4. Will continue to monitor weight changes, labs and overall nutrition status 5. RD will continue to follow up weekly Malnutrition Assessment: Malnutrition Status: At risk for malnutrition (Comment) (will continue to monitor criteria for changes throughout admit) Context: Acute Illness (pt is POD #3 CABGx2 (PEDRAZA LAD, SVG to OM1) MVRepair (28 ring) LAAL with atriclip on 12/14/22) Findings of the 6 clinical characteristics of malnutrition: Energy Intake: No significant decrease in energy intake (pt has been NPO during admit, briefly had full liquids ordered on 12/15 however AIR POLLUTION INSPECTOR recs NPO and diet was changed back, failed MBSS today) Weight Loss: No significant weight loss (pt weight has been stable 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- pt CBW 172# no method on 12/17, was 169# stated on 12/14 presentation, only weight noted per chart review is from 11/14/22: 171#) Body Fat Loss: (pt appears appropriately nourished for age, did not complete NFPE as pt was resting soundly) Muscle Mass Loss: (pt appears appropriately nourished for age, did not complete NFPE as pt was resting soundly) Fluid Accumulation: No significant fluid accumulation 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 Strength: Not Performed Nutrition Assessment: pt with PMH significant for GERD, anxiety, CKD, HTN, stroke and CAD s/p acute RI who presented to [facility] ED on 12/14/22 for planned procedure, pt underwent prior dug-eluting stent to LAD as well as left circumflex artery, in November 2018 she underwent a drug-eluting stent to the right coronary artery, April 2020 she presented with chest pain and SOB- underwent stress test which demonstrated anteroapical ischemia, pt also underwent a heart catheterization which demonstrated preserved EF of 60%, patent stents in the ostial left circumflex 70% stenosis, medical therapy was recommended, echocardiogram done in May 2021 demonstrated an EF of 30%, pt was seen by Cardiology for an urgent appointment in October 2022 for increased SOB, pt underwent a cardiac catheterization on 11/22/22 which demonstrated distal left main coronary artery and patent stent in the circumflex artery and right coronary artery with reduced left ventricular systolic function estimated EF 30% with moderate mitral regurgitation, pt is now POD #3 CABGx2 (PEDRAZA LAD, SVG to OM1) MVRepair (28 ring) LAAL with atriclip on 12/14/22, pt was successfully extubated to NC on 12/15, Endo was consulted due to post op heart and was managing insulin gtt- noted 12/16 blood glucose readings have been reasonable without requiring insulin and no previous diagnosis of diabetes thus signed off 12/16, AIR POLLUTION INSPECTOR was consulted and completed assessment 12/15 and noted s/s oropharyngeal dysphagia + overt clinical s/s pulmonary compromise with PO thus recommended NPO, AIR POLLUTION INSPECTOR re-assessed on 12/16 and recommended continued NPO with completion of MBSS which was done today with recs noted for NPO with AIR POLLUTION INSPECTOR to instruct patient on Free Water Protocol with ice chips and water via teaspoon with double swallow and intermittent cough and re-swallow, noted epicardial wire and chest tubes removed today without difficulty per SAP BASIS documentation, in terms of nutrition pt has been NPO throughout admit (briefly full liquids were provided on 12/15 but then modified to NPO s/p AIR POLLUTION INSPECTOR recs), at time of presentation to room pt daughter is at bedside and pt is sleeping soundly, daughter states that she just recently arrived and was awaiting an update from staff about events of today, pt daughter confirms pt has no food allergies, at baseline does not have chewing/swallowing issues, pt weight has been stable 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- pt CBW 172# no method on 12/17, was 169# stated on 12/14 presentation, only weight noted per chart review is from 11/14/22: 171#, will monitor. Estimated Daily Nutrient Needs: Energy Requirements Based On: Kcal/kg Weight Used for Energy Requirements: [place] Weight for Energy Calculation (kg): 52.3 kg Total Energy Requirements (kcals/day): 1308-1569kcals/day Weight Used for Protein Requirements: [place] Weight in Kg Used for Protein Requirements: 52.3 kg Estimated Total Protein (g/day): 63-73gm pro/day, monitor renal function- pt with increased needs d/t surgical wound healing Estimated Daily Total Fluid (ml/day): per MD Recommendations Nutrition Related Findings: Lam = 16, +I/O, missing teeth, lives alone 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- daughter involved, active bowel sounds, no BM noted all admit, failed MBSS today Wound Type: Surgical Incision (sternal and left pretibial incisions) Current Nutrition Therapies: NPO diet Current Oral Intake Average Meal Intake: NPO Average Supplements Intake: NPO Anthropometric Measures: Height: 160 cm (5' 3 ) Current Body Weight: 78 kg (172 lb) (no method 12/17) Weight Source: Not Specified Admission Body Weight: 76.7 kg (169 lb) (stated 12/14) Usual Body Weight: 77.6 kg (171 lb) (only weight noted per chart review is from 11/14/22: 171#) % Weight Change (Calculated): 0.6 [place] Body Weight (lbs) (Calculated): 115 lbs [place] Body Weight (Kg) (Calculated): 52 kg % [place] Body Weight (Calculated): 149.6 % BMI (kg/m2) (Calculated): 30.5 Weight Adjustment For: No Adjustment BMI Categories: Obese Class 1 (BMI 30.0-34.9) Nutrition Diagnosis: Inadequate oral intake related to swallowing difficulty as evidenced by NPO or clear liquid status due to medical condition (failed MBSS today) Increased nutrient needs related to increase demand for energy/nutrients as evidenced by wounds Nutrition Interventions: Nutrition Education/Counseling: No recommendation at this time Coordination of Nutrition Care: Continue to monitor while inpatient Goals: Goals: Initiate PO diet, Initiate nutrition support, within 2 days Nutrition Monitoring and Evaluation: Behavioral-Environmental Outcomes: None Identified Food/Nutrient Intake Outcomes: Diet Advancement/Tolerance, Enteral Nutrition Intake/Tolerance Physical Signs/Symptoms Outcomes: Biochemical Data, Chewing or Swallowing, GI Status, Fluid Status or Edema, Hemodynamic Status, Weight, Skin, Nutrition Focused Physical Findings Discharge Planning: Too soon to determine Jolanta Clemens RD Contact: available via JOOR chat or *[phone] <5cc noted since epicardial wire pull Chest tubes assessed: no air leak, subcutaneous air noted. Chest tubes removed without difficulty and dressing applied. Patient tolerated well. Patient and nurse educated on possible complications to observe for. Will continue to monitor. Patient in bed, VSS. Epicardial pacing wire pulled without difficulty per protocol. Patient and nurse educated on possible complications. Patient tolerated well. Will continue to monitor. BP cycling. Chest tubes still in place. Images from the original note were not included. Cardiothoracic Surgery/[facility] Progress Note PATIENT NAME: Dayana Quiñones DATE: 12/17/22 HPI: 82-year-old female seen in outpatient setting for surgical evaluation due to progressive shortness of breath with exertion. Patient with significant cardiac history: CAD (RI-October 2018-NEGRO to LAD and LCx; November 2018-NEGRO to RCA), paroxysmal atrial fibrillation, HFrEF-30%, 2+ MR, Surgery was discussed and patient consented to intervention. Surgery/Procedure: 12/14/22: CABGx2 (PEDRAZA LAD, SVG to OM1) MVRepair (28 ring) LAAL with atriclip with Dr. Chou on 12/14/22 Interval History: 12/17/22, POD# 3: Weaned off all vasoactives. Nicole removed; VSS. SCr downtrending. Up to chair with nursing this morning. Pain controlled. Review of Systems Constitutional: Negative for diaphoresis, fatigue and fever. HENT: Positive for trouble swallowing. Respiratory: Positive for shortness of breath. Negative for cough and wheezing. Cardiovascular: Negative for chest pain, palpitations and leg swelling. Gastrointestinal: Negative for abdominal distention, constipation and diarrhea. Skin: Positive for pallor. Negative for color change and rash. Objective: CT output cc/24hrs: 110cc UO cc/24hrs: 1653cc Vitals: BP: 107/58, MAP (mmHg): 73, BP Method: Automatic Heart Rate: 60 Resp: 15 Temp: 36 C (96.8 F), Temp Source: Temporal BMI (Calculated): 30.7 Pacer Wires: V wires capped Patient with PPM CXR: BMP: Recent Labs 12/14/22 1208 12/15/22 0015 12/15/22 1118 12/16/22 0001 12/17/22 0015 NA 140 142 143 141 145 K 4.3 4.5 4.9 4.7 4.5 CL 109* 112* 109* 109* 108* CO2 19* 17* 18* 21* 23 BUN 20* 23* 23* 27* 38* CREATININE 1.18* 1.62* 1.65* 1.64* 1.45* CALCIUM 8.8 7.7* 8.4 8.4 8.6 MG 4.0* 2.5* -- 2.6* 2.6* PHOS 2.6 -- -- -- -- CBC: Recent Labs 12/15/22 1118 12/15/22 1816 12/16/22 0001 12/17/22 0015 WBC 11.5* -- 12.3* 16.4* HGB 8.1* 9.4* 9.5* 9.7* HCT 25.4* 28.8* 28.7* 29.4* PLT 48* -- 47* 56* MCV 91.6 -- 90.4 90.2 RDW 15.3* -- 16.1* 15.8* Physical Exam Constitutional: Interventions: Nasal cannula in place. Cardiovascular: Rate and Rhythm: Normal rate and regular rhythm. Heart sounds: Normal heart sounds. No murmur heard. No friction rub. Comments: PPM Pulmonary: Effort: Pulmonary effort is normal. Skin: General: Skin is warm and dry. Capillary Refill: Capillary refill takes less than 2 seconds. Coloration: Skin is pale. Findings: Bruising and ecchymosis present. Neurological: Mental Status: She is alert. Psychiatric: Behavior: Behavior is cooperative. 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 ([employer]) Hx Stroke Paroxsymal Afib/mobitz type II AV block Anxiety Post operative Pulm Management: normal post operative course Acute blood loss anemia/consumptive thrombocytopenia Plan: Patient Status: Telemetry Medications as ordered ASA statin - hold due o NPO Continue lasix BID - 20mg IV Insulin per Endo Remove colón later today Remove CTs? Pacing wires -->will discuss with Dr. Chou PT/OT: will need evaled Speech: NPO and Ice chips PRN, meds non oral MBS ordered/pending Pulmonary hygiene: IS and Acapella when appropriate GI prophy: IV protonix DVT prophy:TEDs, SCDs, and hold due to thrombocytopenia Disposition: TBD Central Line: [x]Yes [] No Arterial Line: []Yes [x] No Colón: [x]Yes [] No Restraints: []Yes [x] No Patient discussed and plan of day developed from multidisciplinary rounds between Cardiothoracic Surgery (Cardiothoracic Surgeon, JACEY) and Critical Care Attending Cardiac Core Medications: ASA and Statin (currently on hold) EF: 30% 11/22/22 Blood Conservation: multiple units postoperatively Batching Operator: Dr. Brumfield Associated attestation - Russ Montero MD - 12/17/2022 12:17 PM EDT I have personally seen the patient and examined along with the JACEY/resident team. I personally obtained the chang and relevent portions of the history and performed physical exam. I reviewed the chart including MAR , labs and radiology and discussed the patient's plan of action with the resident/JACEY. This note reflects my plan of care as I have edited the note to reflect my findings and my assessment and plan. Date of service: 12/17/22 Discussed with: []Residents [x]Patient/Family [x]RN [x]Consultants []SW/TCC []Other [x]JACEY Personally Reviewed: [x]Epic notes [x]Radiology studies [x]Labs []EKG []Other Assessment: -mvCAD s/p CABGx2 -MVR s/p mitral valve repair -HFrEF -HTN -CKD -GERD -PPM (2019) -Prior CVA -pAF, mobitz II AV block -Anxiety -Leukocytosis- reactive -Thrombocytopenia - consumptive -ABLA Plan: -Patient remains NPO. Will need barium swallow tomorrow. If she fails, recommend NGT for enteral access and nutrition. -Remove colón -Plan to remove chest tubes today -Continue pulmonary hygiene measures, mobilization. -PT/OT -Tele status -Remainder as per JACEY documentation. Excluding procedures, the total critical care time invested in the care of this patient with life threatening/unstable organ failure today is at least 35 minutes. This includes direct patient contact, review of medical record, management of life support systems, review of data including imaging and labs, discussions with other team members, patient's family and physicians. .Nutrition rescreen completed. Patient referred to the Dietitian. CABG, dysphagia.SHARON Reyes Images from the original note were not included. Speech-Language Pathology SPEECH LANGUAGE PATHOLOGY [facility] Dysphagia Treatment Note Patient Name: Dayana Quiñones Evaluation Date: 12/16/2022 Date of : 1940 Admission Date: 12/14/2022 5:46 AM Age: 82 y.o. Room/Bed: T1-114/T1-114 A Subjective Patient alert and cooperative. Seen upright in bed. Answers all basic questions with weak vocal quality. Follows all basic commands. Visitors at bedside - daughter. Spoke with RN Kavon who cleared pt for treatment. Current Diet: Dietary Orders (From admission, onward) Start Ordered 12/16/22 0602 NPO diet Diet effective now Question Answer Comment NPO except: Other (specify) NPO except: Ice Chips Explanatory comment: meds crushed in puree 12/16/22 0602 Aspiration Precautions: - Ice chips PRN Oxygen: Oxygen Therapy: Supplemental oxygen O2 Delivery Method: Nasal cannula O2 Flow Rate (L/min): 3 L/min Pain: RN managing pain. PPE Worn: gloves Objective & Assessment Dysphagia Treatment # of Activities: 1 Dysphagia Activity 1: Assess dietary tolerance Patient's voice is present this date, an improvement from previous. The right side of patient's throat is red/bruised. Patient's dry swallow is palpated to be slightly delayed. Patient trials ice chips and 1/2 teaspoon puree. Patient's response to both trials is delayed throat clear/ineffective weak cough. Suspect posterior bolus loss of both. Plan & Recommendations Plan: Recommend remain NPO with MBSS to clarify if a safe diet level. Continue acute AIR POLLUTION INSPECTOR therapy per initial plan of care and established goals. Recommend NPO and ice chips PRN and meds non-oral and the following precautions: - Upright positioning Recommend modified barium swallow study (MBSS) to further assess. D/C Recommendations: to be determined Education Education Given: diet recommendations, potential for additional diagnostic testing Given To: patient, daughter, and RN Response: verbalizes understanding Goals Patient Stated Goal: Patient wants to drink water. Encounter Problems Encounter Problems (Active) Swallowing Patient will participate in repeat clinical dysphagia evaluation (Not Progressing) Start: 12/15/22 Expected End: 12/29/22 Patient will participate in instrumental assessment of swallowing as appropriate (Initiated) Start: 12/16/22 Expected End: 12/30/22 Therapy Time AIR POLLUTION INSPECTOR Individual Minutes Time In: 0950 Time Out: 1002 Minutes: 12 OMARI Curran Department of Internal Medicine Division of Endocrinology, Diabetes, & Metabolism Endocrinology Note Patient Name: Dayana Quiñones : 1940 AGE: 82 y.o. Room/Bed: T1-114/T1-114 A Admission Date: 12/14/2022 Visit Date: 12/16/2022 Reason for Endocrine Consult: post op heart Provider/Team Requesting Consult: cts PCP: Amalia Avery MD Outpt Top Loader: No ASSESSMENT: Stress hyperglycemia Cad s/p cabgx2 Chf Htn PLAN: Continue humalog low scale with meals. ICU goal <180 GMF goal <150 POCT ACHS Hypoglycemia per protocol Carb controlled diet ANTICIPATED ENDOCRINE HOME GOING RECOMMENDATIONS: Optimized for Discharge from Endocrine standpoint: No Home Going Endocrine Rx Recommendations-- tbd Outpt Follow Up-- pcp SUBJECTIVE/HPI: CHIEF COMPLAINT: No chief complaint on file. Cabgx2 No noted hx of diabetes- does seem to be on farxiga at home for heart failure Bgl below Resting in bed - Plan to get up to chair today. VSS 02 nc On pressors Patient NPO - Speech saw patient today Patient denies hunger or appetite. No nv noted Spoke to nursing and family in room Type of DM: na Onset of DM: na Home DM Medication Regimen: farxiga 10 daily- HF DM control (last A1c/glucose data): Lab Results Component Value Date HGBA1C 5.6 12/08/2022 Glucose Date/Time Value Ref Range Status 12/16/2022 08:27 AM 123 (H) 70 - 100 mg/dL Final 12/15/2022 11:21 PM 137 (H) 70 - 100 mg/dL Final 12/15/2022 10:31 AM 146 (H) 70 - 100 mg/dL Final 12/15/2022 09:21 AM 141 (H) 70 - 100 mg/dL Final 12/15/2022 08:15 AM 140 (H) 70 - 100 mg/dL Final 12/15/2022 06:56 AM 143 (H) 70 - 100 mg/dL Final Review of Systems Constitutional: Positive for appetite change and fatigue. All other systems reviewed and are negative. ROS negative except for those mentioned in HPI. OBJECTIVE: Vitals: 12/16/22 0530 12/16/22 0545 12/16/22 0600 12/16/22 0615 BP: 108/65 BP Location: Patient Position: Pulse: 60 60 60 60 Resp: Temp: TempSrc: SpO2: 100% 100% 99% 100% Weight: Height: PF: Physical Exam Vitals and nursing note reviewed. Constitutional: General: She is awake. Appearance: She is ill-appearing. She is not toxic-appearing. HENT: Head: Normocephalic. Eyes: Conjunctiva/sclera: Conjunctivae normal. Cardiovascular: Rate and Rhythm: Normal rate and regular rhythm. Pulses: Normal pulses. Heart sounds: Normal heart sounds. Pulmonary: Effort: Pulmonary effort is normal. Breath sounds: Normal breath sounds. Abdominal: Palpations: Abdomen is soft. Musculoskeletal: Cervical back: Normal range of motion. Skin: General: Skin is warm and dry. Comments: Intact incision Neurological: Mental Status: She is alert and oriented to person, place, and time. Psychiatric: Mood and Affect: Mood normal. Behavior: Behavior normal. 24 hour intake/output: Intake/Output Summary (Last 24 hours) at 12/16/2022 0838 Last data filed at 12/16/2022 0600 Gross per 24 hour Intake 2482 ml Output 1425 ml Net 1057 ml Diet: NPO diet Medications (as per EMR): HomeMeds: Current Outpatient Medications Medication Instructions acyclovir (ZOVIRAX) 800 mg, Oral, Daily apixaban (ELIQUIS) 5 mg, Oral, 2 times daily aspirin 81 mg, Oral, Daily atorvastatin (LIPITOR) 20 mg, Oral, Nightly bacitracin-polymyxin b (Polysporin) ointment Apply to affected area daily carvedilol (Coreg) 12.5 MG tablet 1 tablet, Oral, 2 times daily with meals dapagliflozin (FARXIGA) 10 mg, Oral, Daily with breakfast difluprednate (Durezol) 0.05 % ophthalmic solution 1 drop, Left Eye, Every other day ERYTHROMYCIN EX Apply externally, Ointement for eye furosemide (LASIX) 40 mg, Oral, Daily NON FORMULARY Eye health complex omeprazole (PRILOSEC) 40 mg, Oral, Daily sacubitril-valsartan (Entresto) 24-26 MG tablet 1 tablet, Oral, 2 times daily timolol (Timoptic) 0.5 % ophthalmic solution 1 drop, Left Eye, 2 times daily Scheduled Meds:acetaminophen, 1,000 mg, Oral, q8h aspirin, 81 mg, Oral, Daily furosemide, 20 mg, IntraVENous, BID insulin lispro, 0-6 Units, SubCUTAneous, TID WC mupirocin, , Nasal, BID pantoprazole, 40 mg, Oral, qAM AC polyethylene glycol (PEG) 3350, 17 g, Oral, Daily rosuvastatin, 40 mg, Oral, Daily senna-docusate sodium, 2 tablet, Oral, Nightly sodium chloride 0.9%, 10 mL, IntraVENous, 2 times per day Continuous Infusions:norepinephrine, 0.01-0.2 mcg/kg/min, Last Rate: 0.04 mcg/kg/min (12/16/22 0430) Vasopressin, 0.01-0.03 Units/min, Last Rate: 0.03 Units/min (12/16/22 0111) PRN Meds:PRN medications: calcium gluconate, dextrose, dextrose, glucagon (rDNA), glucose, HYDROmorphone OR HYDROmorphone, ipratropium-albuterol, magnesium hydroxide, magnesium sulfate OR magnesium sulfate, norepinephrine, ondansetron ODT OR ondansetron, oxyCODONE OR oxyCODONE, potassium chloride OR potassium chloride 20 mEq in sodium chloride 0.9 % 250 mL IVPB OR potassium chloride 40 mEq in sodium chloride 0.9 % 500 mL IVPB, potassium chloride CR Diagnostic Workup: I reviewed pertinent Laboratory results, Radiographic results, and Other Clinical Notes at the time of today's encounter. Labs: No components found for: LABA1C No components found for: EAG Lab Results Component Value Date NA 141 12/16/2022 K 4.7 12/16/2022 CL 109 (H) 12/16/2022 CO2 21 (L) 12/16/2022 BUN 27 (H) 12/16/2022 CREATININE 1.64 (H) 12/16/2022 GLUCOSE 120 (H) 12/16/2022 CALCIUM 8.4 12/16/2022 No results found for: CHLPL, CHOL No results found for: TRIG No results found for: HDL No results found for: LDLCALC No results found for: VLDL No results found for: CHOLHDLRATIO No results found for: [id number] No results found for: TSH, T3JEHBC, P1RHAQN, THYROIDAB Radiology reportsas per the Radiologist Radiology: ECG 12 lead Result Date: 12/14/2022 Atrial-ventricular dual-paced rhythm History/Other: Past Medical History: Past Medical History: Diagnosis Date Anxiety Atherosclerosis of coronary artery bypass graft of [place] heart without angina pectoris Chronic kidney disease GERD (gastroesophageal reflux disease) Hypertension Ischemic cardiomyopathy Mobitz type II atrioventricular block STEMI (ST elevation myocardial infarction) ([facility]) 11/16/2018 Stroke ([facility]) Vertigo Past Surgical History: Past Surgical History: Procedure Laterality Date BACK SURGERY fusion CARDIAC PACEMAKER PLACEMENT 08/02/2018 CORONARY STENT PLACEMENT 12/19/2018 total of 4 on different occasions Allergy(ies): Allergies Allergen Reactions Morphine Other reaction(s): GI Upset, Vomiting vomiting Family History: Family History Problem Relation Name Age of Onset Heart disease Father Social History: Social History Tobacco Use Smoking status: Former Years: 10.00 Types: Cigarettes Quit date: 1967 Years since quittin.6 Smokeless tobacco: Never Vaping Use Vaping Use: Never used Substance Use Topics Alcohol use: Never Drug use: Never Portions of the information within this encounter were entered using an electronic dictation system. Best attempts were made to edit/proofread the information prior to note completion. Despite the review of information, some errors may remain. If there are questions related to the information contained within the note please contact the signing physician directly. I spent 15 minutes with the pt which involved coordination of care, medical evaluation, review of records, and/or counseling of the pt regarding his/her condition/disease state/prognosis on the date of this note. Associated attestation - Ian Brand MD - 12/16/2022 2:43 PM EDT I have personally performed a face to face diagnostic evaluation on this patient. In addition, I have reviewed the resident's/DIGITAL EXPERIENCE MANAGER/SAP BASIS's care plan and agree with those findings I have performed a substantive portion of the the medical decision making. My findings are as follows: Patient is n.p.o. Blood glucose readings are reasonable Vitals: BP 122/63 (BP Location: Left arm, Patient Position: Lying) Pulse 60 Temp 36.7 C (98 F) (Temporal) Resp 19 Ht 5' 3 (1.6 m) Wt 173 lb 4.5 oz (78.6 kg) SpO2 99% PF 55 L/min BMI 30.70 kg/m Respiratory: No respiratory distress Cardiovascular System: No lower extremity edema A/P Stress hyperglycemia s/p CABG Blood glucose readings has been reasonable without requiring insulin No previous diagnosis of diabetes Discontinue Humalog correction scale and obtain a blood glucose readings as needed Endocrinology service will sign off I spent 10 minutes with the pt which involved in coordination of care, medical evaluation, review of records, and/or counseling of the pt regarding his/her condition/disease state/prognosis on the date of this note. Old records including available PCP, ED notes and or other specialists notes are reviewed. LABs and/or imaging are reviewed as detailed in the resident's/DIGITAL EXPERIENCE MANAGER/SAP BASIS's note Images from the original note were not included. Cardiothoracic Surgery/CCM Progress Note PATIENT NAME: Dayana Quiñones DATE: 12/16/22 HPI: 82-year-old female seen in outpatient setting for surgical evaluation due to progressive shortness of breath with exertion. Patient with significant cardiac history: CAD ([place]-October 2018-NEGRO to LAD and LCx; November 2018-NEGRO to RCA), paroxysmal atrial fibrillation, HFrEF-30%, 2+ MR, Surgery was discussed and patient consented to intervention. Surgery/Procedure: 12/14/22: CABGx2 (PEDRAZA LAD, SVG to OM1) MVRepair (28 ring) LAAL with atriclip with Dr. Chou on 12/14/22 Interval History: 12/16/22, POD# 2: Remains on Vaso-0.03/Levo 0.04 - Epi turned off. Speech saw yesterday- recommend NPO. Alert following commands. Review of Systems Constitutional: Negative for diaphoresis, fatigue and fever. HENT: Positive for trouble swallowing. Respiratory: Positive for shortness of breath. Negative for cough and wheezing. Cardiovascular: Negative for chest pain, palpitations and leg swelling. Gastrointestinal: Negative for abdominal distention, constipation and diarrhea. Skin: Positive for pallor. Negative for color change and rash. Objective: CT output cc/24hrs: 210cc UO cc/24hrs: 1295cc Vitals: BP: 103/53, MAP (mmHg): 68, BP Method: Automatic Heart Rate: 60 Resp: 19 Temp: 36.3 C (97.4 F), Temp Source: Temporal BMI (Calculated): 30.7 Pacer Wires: V wires capped Patient with PPM CXR: BMP: Recent Labs 12/14/22 1208 12/15/22 0015 12/15/22 1118 12/16/22 0001 NA 140 142 143 141 K 4.3 4.5 4.9 4.7 CL 109* 112* 109* 109* CO2 19* 17* 18* 21* BUN 20* 23* 23* 27* CREATININE 1.18* 1.62* 1.65* 1.64* CALCIUM 8.8 7.7* 8.4 8.4 MG 4.0* 2.5* -- 2.6* PHOS 2.6 -- -- -- CBC: Recent Labs 12/15/22 0015 12/15/22 1118 12/15/22 1816 12/16/22 0001 WBC 17.0* 11.5* -- 12.3* HGB 9.8* 8.1* 9.4* 9.5* HCT 30.1* 25.4* 28.8* 28.7* PLT 62* 48* -- 47* MCV 90.7 91.6 -- 90.4 RDW 15.3* 15.3* -- 16.1* INR: Recent Labs 12/14/22 1208 12/15/22 0015 12/16/22 0001 INR 1.8* 1.2* 1.3* Physical Exam Constitutional: Interventions: Nasal cannula in place. Cardiovascular: Rate and Rhythm: Normal rate and regular rhythm. Heart sounds: Normal heart sounds. No murmur heard. No friction rub. Comments: PPM Pulmonary: Effort: Pulmonary effort is normal. Skin: General: Skin is warm and dry. Capillary Refill: Capillary refill takes less than 2 seconds. Coloration: Skin is pale. Findings: Bruising and ecchymosis present. Neurological: Mental Status: She is alert. Psychiatric: Behavior: Behavior is cooperative. 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 ([employer]) Hx Stroke Paroxsymal Afib/mobitz type II AV block Anxiety Post operative Pulm Management: normal post operative course Acute blood loss anemia/consumptive thrombocytopenia Plan: Patient Status: ICU Medications as ordered ASA statin Wean levo as able for SBP less than 130 Gentle diuresis: lasix BID 20mg IV Insulin per Endo Maintain colón, CT to suction, and nicole PT/OT: will need evaled Speech: NPO and meds crushed in puree Pulmonary hygiene: IS and Acapella when appropriate GI prophy: IV protonix DVT prophy:TEDs, SCDs, and hold due to thrombocytopenia Disposition: TBD Central Line: [x]Yes [] No Arterial Line: [x]Yes [] No Colón: [x]Yes [] No Restraints: []Yes [x] No Patient discussed and plan of day developed from multidisciplinary rounds between Cardiothoracic Surgery (Cardiothoracic Surgeon, JACEY) and Critical Care Attending Cardiac Core Medications: ASA and Statin EF: 30% 7/26/23 Blood Conservation: multiple units postoperatively Batching Operator: Dr. Brumfield Associated attestation - Russ Montero MD - 12/16/2022 3:40 PM EDT I have personally seen the patient and examined along with the JACEY/resident team. I personally obtained the chang and relevent portions of the history and performed physical exam. I reviewed the chart including MAR , labs and radiology and discussed the patient's plan of action with the resident/JACEY. This note reflects my plan of care as I have edited the note to reflect my findings and my assessment and plan. 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 -Creatinine holding, avoid nephrotoxic medications -NPO with meds crushed in puree, AIR POLLUTION INSPECTOR to follow -Continue aggressive pulmonary hygiene measures -Mobilize out of bed once HDS -Remainder as per JACEY documentation. Excluding procedures, the total critical care time invested in the care of this patient with life threatening/unstable organ failure today is at least 35 minutes. This includes direct patient contact, review of medical record, management of life support systems, review of data including imaging and labs, discussions with other team members, patient's family and physicians. Images from the original note were not included. Speech-Language Pathology SPEECH LANGUAGE PATHOLOGY [facility] Bedside Swallow Evaluation Patient Name: Dayana Quiñones Evaluation Date: 12/15/2022 Date of : 1940 Admission Date: 12/14/2022 5:46 AM Age: 82 y.o. Room/Bed: T1-114/T1-114 A IMPRESSION: S/s oropharyngeal dysphagia. + overt clinical s/s pulmonary compromise with PO. Risk factors for aspiration include CABG 12/14/22, intubation 12/14-12/15, dysphonic. RECOMMENDATION: Recommend NPO and meds crushed in puree and the following precautions: - Ice chips PRN Pt would benefit from skilled acute AIR POLLUTION INSPECTOR services to address safety for PO. Frequency: 3 days/wk for 2 weeks Barriers: Medical complications Prognosis: good D/C Recommendations: to be determined Subjective Patient alert, lethargic and cooperative. Seen upright in bed. Answers some basic questions with breathy, dysphonic vocal quality. Follows some basic commands. Visitors at bedside - daughter and granddaughter. Spoke with MANAS Gusman who cleared pt to be evaluated. Dysphagia History: No history of AIR POLLUTION INSPECTOR services in EMR with retrospective chart review Baseline Diet: regular with thin liquids Current Diet: Dietary Orders (From admission, onward) Start Ordered 12/15/22 1009 Adult diet Full liquid Diet effective now Question: Diet type Answer: Full liquid 12/15/22 1009 Tube Feeding: no Tracheostomy: no Recent Chest Xray/CT of Chest: XR chest 1 view 12/15/2022 Impression Essentially stable examination. Report Dictated on Electronically Signed By: Bridget Melo MD Electronically Signed Date/Time: 12/15/2022 8:46 AM EDT Oxygen: Oxygen Therapy: Supplemental oxygen O2 Delivery Method: Nasal cannula O2 Flow Rate (L/min): 3 L/min Past Medical History: Past Medical History: Diagnosis Date Anxiety Atherosclerosis of coronary artery bypass graft of [place] heart without angina pectoris Chronic kidney disease GERD (gastroesophageal reflux disease) Hypertension Ischemic cardiomyopathy Mobitz type II atrioventricular block STEMI (ST elevation myocardial infarction) (HCC) 11/16/2018 Stroke (HCC) Vertigo Past Surgical History: Past Surgical History: Procedure Laterality Date BACK SURGERY fusion CARDIAC PACEMAKER PLACEMENT 08/02/2018 CORONARY STENT PLACEMENT 12/19/2018 total of 4 on different occasions Admission Diagnosis: Patient Active Problem List Diagnosis Date Noted CAD in [place] artery 12/14/2022 History of Present Illness: Assessment and plan 82 F with progressive shortness of breath on exertion. Workup significant of reduced EF at 30%, 2+ MR, LM and ostial circ disease on cath. Most likely cause of symptoms appear to be cardiac, but etiology isnt exact. Coronary artery disease: I discussed with her and her family the indications, risks, benefits, and perioperative course of a coronary artery bypass grafting. I discussed alternatives including no intervention, medical therapy only, and percutaneous coronary intervention with medications. A surgical revascularization is recommended in her case. On my review of the coronary angiogram, she does have good targets and will need 2 vessel bypass grafts. She is quite functional and is of low to intermediate risk given her age and reduced EF. Plan for PVI and LAAL in addition CABG 12/14/22 Patient Complaint: wants ice chips Pain: RN managing pain. PPE Worn: gloves Objective Bedside swallow eval completed. Oral Motor Mechanism Facial Movement (CN VII) - WFL Labial Structure/Function (CN VII) - WFL Lingual Structure/Function (CN XII) - WFL Velopharyngeal Structure/Function (CN X & XI) - Elevation with phonation, Suspect weakness, edema and irritation, small laceration. S/Z ratio (>1.4 suggestive of laryngeal dysfunction) - dysphonic, not able to complete as pt mostly aphonic. Dentition - Adequate Oral Hygiene: moist, clean Swallowing Examination PO Trials - ice chips (teaspoon) - thin liquid (teaspoon) - puree (teaspoon) Oral Phase Pt with adequate oral receipt of PO trials. No anterior spillage. Mastication appeared complete, organized, and timely. Oral transit time appears WFL. No oral residue. Pharyngeal Phase Hyolaryngeal excursion clinically appears adequate and delayed per palpation. 3-4 swallows palpated per bolus, likely indicative of impaired pharyngeal clearance. Overt clinical s/s pulmonary compromise with Pureed solids and Thin liquids as evidenced by immediate cough, immediate throat clear. Education Education Given: role of therapy, diet recommendations, potential for additional diagnostic testing Given To: patient and RN Response: verbalizes understanding Goals Patient Stated Goal: Patient was not cognitively aware and was unable to participate in goal setting at this time. Encounter Problems Encounter Problems (Active) Swallowing Patient will participate in repeat clinical dysphagia evaluation (Initiated) Start: 12/15/22 Expected End: 12/29/22 Therapy Time AIR POLLUTION INSPECTOR Individual Minutes Time In: 1400 Time Out: 1415 Minutes: 15 O[facility] S[facility] Department of Internal Medicine Division of Endocrinology, Diabetes, & Metabolism Endocrinology Note Patient Name: Dayana Quiñones : 1940 AGE: 82 y.o. Room/Bed: T1-114/T1-114 A Admission Date: 12/14/2022 Visit Date: 12/15/2022 Reason for Endocrine Consult: post op heart Provider/Team Requesting Consult: cts PCP: Amalia Avery MD Outpt Top Loader: No ASSESSMENT: Stress hyperglycemia Cad s/p cabgx2 Chf Htn PLAN: Give lantus 10 x1 now- stop insulin gtt one hour Start humalog low scale ICU goal <180 GMF goal <150 POCT ACHS Hypoglycemia per protocol Carb controlled diet ANTICIPATED ENDOCRINE HOME GOING RECOMMENDATIONS: Optimized for Discharge from Endocrine standpoint: No Home Going Endocrine Rx Recommendations-- tbd Outpt Follow Up-- pcp SUBJECTIVE/HPI: CHIEF COMPLAINT: No chief complaint on file. Cabgx2 No noted hx of diabetes- does seem to be on farxiga at home for heart failure Bgl below Resting in bed VSS Extubated- 02 nc Insulin gtt off On pressors Has not yet eaten No nv noted Spoke to nursing and family in room Type of DM: na Onset of DM: na Home DM Medication Regimen: farxiga 10 daily- HF DM control (last A1c/glucose data): Lab Results Component Value Date HGBA1C 5.6 12/08/2022 Glucose Date/Time Value Ref Range Status 12/15/2022 10:31 AM 146 (H) 70 - 100 mg/dL Final 12/15/2022 09:21 AM 141 (H) 70 - 100 mg/dL Final 12/15/2022 08:15 AM 140 (H) 70 - 100 mg/dL Final 12/15/2022 06:56 AM 143 (H) 70 - 100 mg/dL Final 12/15/2022 06:01 AM 129 (H) 70 - 100 mg/dL Final 12/15/2022 05:01 AM 119 (H) 70 - 100 mg/dL Final Review of Systems All other systems reviewed and are negative. ROS negative except for those mentioned in HPI. OBJECTIVE: Vitals: 12/15/22 0645 12/15/22 0700 12/15/22 0759 12/15/22 0800 BP: (!) 95/44 BP Location: Left arm Patient Position: Lying Pulse: 60 60 62 60 Resp: 14 14 (!) 29 23 Temp: 37 C (98.6 F) TempSrc: Temporal SpO2: 100% 100% 100% 98% Weight: Height: PF: 55 L/min Physical Exam Vitals and nursing note reviewed. Constitutional: General: She is awake. Appearance: She is ill-appearing. She is not toxic-appearing. HENT: Head: Normocephalic. Cardiovascular: Rate and Rhythm: Normal rate. Pulmonary: Effort: Pulmonary effort is normal. Abdominal: Palpations: Abdomen is soft. Musculoskeletal: Cervical back: Normal range of motion. Skin: General: Skin is warm and dry. Comments: Intact incision Neurological: Mental Status: She is alert and oriented to person, place, and time. Psychiatric: Mood and Affect: Mood normal. Behavior: Behavior normal. 24 hour intake/output: Intake/Output Summary (Last 24 hours) at 12/15/2022 1157 Last data filed at 12/15/2022 0700 Gross per 24 hour Intake 6178 ml Output 3310 ml Net 2868 ml Diet: Adult diet Full liquid Medications (as per EMR): HomeMeds: Current Outpatient Medications Medication Instructions acyclovir (ZOVIRAX) 800 mg, Oral, Daily apixaban (ELIQUIS) 5 mg, Oral, 2 times daily aspirin 81 mg, Oral, Daily atorvastatin (LIPITOR) 20 mg, Oral, Nightly bacitracin-polymyxin b (Polysporin) ointment Apply to affected area daily carvedilol (Coreg) 12.5 MG tablet 1 tablet, Oral, 2 times daily with meals dapagliflozin (FARXIGA) 10 mg, Oral, Daily with breakfast difluprednate (Durezol) 0.05 % ophthalmic solution 1 drop, Left Eye, Every other day ERYTHROMYCIN EX Apply externally, Ointement for eye furosemide (LASIX) 40 mg, Oral, Daily NON FORMULARY Eye health complex omeprazole (PRILOSEC) 40 mg, Oral, Daily sacubitril-valsartan (Entresto) 24-26 MG tablet 1 tablet, Oral, 2 times daily timolol (Timoptic) 0.5 % ophthalmic solution 1 drop, Left Eye, 2 times daily Scheduled Meds:acetaminophen, 1,000 mg, Oral, q8h aspirin, 81 mg, Oral, Daily ceFAZolin, 2,000 mg, IntraVENous, q8h insulin glargine, 10 Units, SubCUTAneous, Once insulin lispro, 0-6 Units, SubCUTAneous, TID WC mupirocin, , Nasal, BID [START ON 12/16/2022] pantoprazole, 40 mg, Oral, qAM AC polyethylene glycol (PEG) 3350, 17 g, Oral, Daily rosuvastatin, 40 mg, Oral, Daily senna-docusate sodium, 2 tablet, Oral, Nightly sodium chloride 0.9%, 10 mL, IntraVENous, 2 times per day Continuous Infusions:EPINEPHrine, 0.01-0.2 mcg/kg/min, Last Rate: 0.05 mcg/kg/min (12/15/22 0315) lactated ringers, 250 mL, Last Rate: Stopped (12/15/22 025) norepinephrine, 0.01-0.2 mcg/kg/min, Last Rate: Stopped (12/15/22 0635) Vasopressin, 0.01-0.03 Units/min, Last Rate: 0.03 Units/min (12/15/22 0049) PRN Meds:PRN medications: albumin human, calcium gluconate, dextrose, dextrose, EPINEPHrine, glucagon (rDNA), glucose, HYDROmorphone OR HYDROmorphone, ipratropium-albuterol, lactated ringers, magnesium hydroxide, magnesium sulfate OR magnesium sulfate, norepinephrine, ondansetron ODT OR ondansetron, oxyCODONE OR oxyCODONE, potassium chloride OR potassium chloride 20 mEq in sodium chloride 0.9 % 250 mL IVPB OR potassium chloride 40 mEq in sodium chloride 0.9 % 500 mL IVPB, potassium chloride CR, sodium chloride, sodium chloride, sodium chloride, sodium chloride 0.9% Diagnostic Workup: I reviewed pertinent Laboratory results, Radiographic results, and Other Clinical Notes at the time of today's encounter. Labs: No components found for: LABA1C No components found for: EAG Lab Results Component Value Date NA 142 12/15/2022 K 4.5 12/15/2022 CL 112 (H) 12/15/2022 CO2 17 (L) 12/15/2022 BUN 23 (H) 12/15/2022 CREATININE 1.62 (H) 12/15/2022 GLUCOSE 122 (H) 12/15/2022 CALCIUM 7.7 (L) 12/15/2022 No results found for: CHLPL, CHOL No results found for: TRIG No results found for: HDL No results found for: LDLCALC No results found for: VLDL No results found for: CHOLHDLRATIO No results found for: TGBC98AQO No results found for: TSH, U7JNSEK, F4LYMBH, THYROIDAB Radiology reportsas per the Radiologist Radiology: ECG 12 lead Result Date: 12/14/2022 Atrial-ventricular dual-paced rhythm History/Other: Past Medical History: Past Medical History: Diagnosis Date Anxiety Atherosclerosis of coronary artery bypass graft of [place] heart without angina pectoris Chronic kidney disease GERD (gastroesophageal reflux disease) Hypertension Ischemic cardiomyopathy Mobitz type II atrioventricular block STEMI (ST elevation myocardial infarction) ([facility]) 11/16/2018 Stroke ([facility]) Vertigo Past Surgical History: Past Surgical History: Procedure Laterality Date BACK SURGERY fusion CARDIAC PACEMAKER PLACEMENT 08/02/2018 CORONARY STENT PLACEMENT 12/19/2018 total of 4 on different occasions Allergy(ies): Allergies Allergen Reactions Morphine Other reaction(s): GI Upset, Vomiting vomiting Family History: Family History Problem Relation Name Age of Onset Heart disease Father Social History: Social History Tobacco Use Smoking status: Former Years: 10.00 Types: Cigarettes Quit date: 1968 Years since quittin.6 Smokeless tobacco: Never Vaping Use Vaping Use: Never used Substance Use Topics Alcohol use: Never Drug use: Never Portions of the information within this encounter were entered using an electronic dictation system. Best attempts were made to edit/proofread the information prior to note completion. Despite the review of information, some errors may remain. If there are questions related to the information contained within the note please contact the signing physician directly. I spent 16 minutes with the pt which involved coordination of care, medical evaluation, review of records, and/or counseling of the pt regarding his/her condition/disease state/prognosis on the date of this note. Associated attestation - Ian Brand MD - 12/15/2022 2:09 PM EDT I have personally performed a face to face diagnostic evaluation on this patient. In addition, I have reviewed the resident's/DIGITAL EXPERIENCE MANAGER/SAP BASIS's care plan and agree with those findings I have performed a substantive portion of the the medical decision making. My findings are as follows: Insulin drip rate 1.5 unit/hr Vitals: BP (!) 112/47 (BP Location: Left arm, Patient Position: Lying) Pulse 60 Temp 37 C (98.6 F) (Temporal) Resp 24 Ht 5' 3 (1.6 m) Wt 177 lb 4 oz (80.4 kg) SpO2 100% PF 55 L/min BMI 31.40 kg/m Respiratory: No respiratory distress Cardiovascular System: No lower extremity edema A/P Stress hyperglycemia s/p CABG Give lantus 10 units once then discontinue insulin drip after 1 hr Start humalog low dose correction before meals I spent 15 minutes with the pt which involved in coordination of care, medical evaluation, review of records, and/or counseling of the pt regarding his/her condition/disease state/prognosis on the date of this note. Old records including available PCP, ED notes and or other specialists notes are reviewed. LABs and/or imaging are reviewed as detailed in the resident's/DIGITAL EXPERIENCE MANAGER/SAP BASIS's note PS 10/+6 trial started at [address] Montero. Images from the original note were not included. Cardiothoracic Surgery/CCM Progress Note PATIENT NAME: Dayana Quiñones DATE: 12/15/22 HPI: 82-year-old female seen in outpatient setting for surgical evaluation due to progressive shortness of breath with exertion. Patient with significant cardiac history: CAD ([place]-October 2018-NEGRO to LAD and LCx; November 2018-NEGRO to RCA), paroxysmal atrial fibrillation, HFrEF-30%, 2+ MR, Surgery was discussed and patient consented to intervention. Surgery/Procedure: 12/14/22: CABGx2 (PEDRAZA LAD, SVG to OM1) MVRepair (28 ring) LAAL with atriclip with Dr. Chou on 12/14/22 Interval History: 12/15/22, POD# 1: remained intubated - alert following commands on minimal vent settings. Fluid bolus given overnight 25 albumin/250 LR. Calcium replaced x2-recheck pending. Hypotensive - epi 0.05 mcg/kg/min, Levo 0.08 mcg/kg/min, vaso at 0.03 unit/hr. SCr - increasing likely related to hypotension. UO 1,795cc Review of Systems Unable to perform ROS: Intubated Alert following commands Objective: CT output cc/24hrs: 635cc UO cc/24hrs:1,795cc Vitals: BP: 120/59, MAP (mmHg): 76, BP Method: Automatic Heart Rate: 64 Resp: 20 Temp: 36.5 C (97.7 F), Temp Source: Temporal BMI (Calculated): 31.41 Vent Mode: Assist control FiO2 (%): [40 %-50 %] 40 % S RR: [14] 14 S VT: [450 mL] 450 mL PEEP/CPAP (cm H2O): [8 cm H20] 8 cm H20 MAP (cm H2O): [13-18] 15 Pacer Wires: V wires capped Patient with PPM CXR: BMP: Recent Labs 12/14/22 1208 12/15/22 0015 NA 140 142 K 4.3 4.5 CL 109* 112* CO2 19* 17* BUN 20* 23* CREATININE 1.18* 1.62* CALCIUM 8.8 7.7* MG 4.0* 2.5* PHOS 2.6 -- CBC: Recent Labs 12/14/22 1208 12/14/22 1209 12/14/22 1318 12/14/22 1403 12/14/22 1922 12/15/22 0014 12/15/22 0015 WBC 13.7* -- -- -- -- -- 17.0* HGB 6.4* < > 7.5* < > 9.6* 10.1 9.8* HCT 19.6* -- 22.9* -- 29.6* -- 30.1* PLT 63* -- -- -- -- -- 62* MCV 92.4 -- -- -- -- -- 90.7 RDW 14.4 -- -- -- -- -- 15.3* < > = values in this interval not displayed. INR: Recent Labs 12/14/22 1208 12/15/22 0015 INR 1.8* 1.2* Physical Exam Constitutional: Interventions: She is sedated, intubated and restrained. HENT: Mouth/Throat: Comments: ETT in place Neck: Vascular: No JVD. Trachea: Trachea normal. Cardiovascular: Rate and Rhythm: Normal rate and regular rhythm. Pulses: Radial pulses are 2+ on the right side and 2+ on the left side. Heart sounds: Normal heart sounds, S1 normal and S2 normal. Pulmonary: Effort: She is intubated. Breath sounds: Decreased breath sounds present. Abdominal: General: Bowel sounds are absent. Genitourinary: Comments: Colón catheter to straight drain Musculoskeletal: Right lower leg: No edema. Left lower leg: No edema. Skin: Findings: Bruising and ecchymosis present. Comments: Surgical dressing dry and intact 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 ([employer]) Hx Stroke Paroxsymal Afib/mobitz type II AV block Anxiety Post operative Pulm Management: normal post operative course Acute blood loss anemia/consumptive thrombocytopenia Plan: Patient Status: ICU SBT with goal to extubate this morning 24hr ciera ~1302 Medications as ordered Add ASA statin Continue to wean Vasoactive drips Levo to 0.08 first to 0.05 Then transition to weaning Epi off Maintain Vaso at 0.03 CXR congested - will likely need diuresed ?intervascularly dry - will discuss another fluid challenge this morning 25/250 Insulin per Endo Maintain colón, CT to suction, and nicole PT/OT: will need evaled Pulmonary hygiene: IS and Acapella when appropriate GI prophy: IV protonix DVT prophy:TEDs, SCDs, and hold due to thrombocytopenia Disposition: TBD Central Line: [x]Yes [] No Arterial Line: [x]Yes [] No Colón: [x]Yes [] No Restraints: [x]Yes [] No Patient discussed and plan of day developed from multidisciplinary rounds between Cardiothoracic Surgery (Cardiothoracic Surgeon, JACEY) and Critical Care Attending Cardiac Core Medications: ASA and Statin EF: 30% 11/22/22 Blood Conservation: multiple units postoperatively Batching Operator: Dr. Brumfield Associated attestation - Russ Montero MD - 12/15/2022 5:41 PM EDT I have personally seen the patient and examined along with the JACEY/resident team. I personally obtained the chang and relevent portions of the history and performed physical exam. I reviewed the chart including MAR , labs and radiology and discussed the patient's plan of action with the resident/JACEY. This note reflects my plan of care as I have edited the note to reflect my findings and my assessment and plan. Date of service: 12/15/22 Discussed with: []Residents [x]Patient/Family [x]RN [x]Consultants [x]SW/TCC []Other [x]JACEY Personally Reviewed: [x]Epic notes [x]Radiology studies [x]Labs [x]EKG []Other Assessment: -mvCAD s/p CABGx2 -MVR s/p mitral valve repair -HFrEF -HTN -CKD -GERD -PPM (2019) -Prior CVA -pAF, mobitz II AV block -Anxiety -Leukocytosis- reactive -Thrombocytopenia - consumptive -ABLA Plan: -Extubated to nasal cannula -Start aggressive pulmonary hygiene measures, schedueld aerosols -Maintain colón -Continue chest tube to wall suction -Gentle diuresis, creatinine elevated currently, but CXR significantly congested -wean vasopressor support as tolerated -Insulin per endo -Consult PT/OT -Remainder as per JACEY documentation Excluding procedures, the total critical care time invested in the care of this patient with life threatening/unstable organ failure today is at least 35 minutes. This includes direct patient contact, review of medical record, management of life support systems, review of data including imaging and labs, discussions with other team members, patient's family and physicians. documented in this encounter [facility] 12-29-2022 Note Start PACC Note Home Health Referral Educated patient and dtr on Home Care and services available. Patient offered choice of available HHC and agreeable to RN PT OT services with [facility]. Care Types: None Isolation Precautions: No active isolations Social Determinates of Health: Tobacco Use: Medium Risk (12/22/2022) Patient History Smoking Tobacco Use: Former Smokeless Tobacco Use: Never Passive Exposure: Not on file Social History Substance and Sexual Activity Alcohol Use Never Social History Substance and Sexual Activity Drug Use Never Does the patient have any financial resource strain? No Does the patient have any food insecurities? No Does the patient have any housing instabilities? No If any of the above is noted as yes - consider a ADMINISTRATIVE STAFF SUPERVISOR evaluation once the patient returns home. START PATIENT REGISTRATION INFORMATION Order Information Order Signing Physician: Danielle Chou MD Service Ordered RN ?: Yes Service Ordered PT ?: Yes Service Ordered OT ?: Yes Service Ordered ST ?: No Service Ordered ADMINISTRATIVE STAFF SUPERVISOR?:No Service Ordered CUSTOMS OPENER VERIFIER PACKER?: No Following Physician: Dr Danielle Chou Following Physician Overseeing Physician: Dr Danielle Chou (Required for Residents only) Agreeable to Follow? Yes Date/Time of Call 12/29/22 11:32 AM Care Coordination Same Day SOC?: No Primary Care Physician: Amalia Avery MD Primary Care Physician Primary Care Physician Address: [address] [place] [address] / [facility] [id number] Visit Instructions: N/A Service Discharge Location Type: Home with Home Health Care Service Facility Name: N/A Service Floor Facility: N/A Service Room No: N/A Demographics Patient Last Name: Nuria Patient First Name: Dayana Language/Communication Barrier: n/a Service Address: [address] [facility] Service City: [place] Service ST: [place] Service ZIP: [address] Service Other phone numbers: Telephone Information: Emergency Contact: Extended Emergency Contact Information Primary Emergency Contact: Radha Huizar Mobile Relation: Daughter Secondary Emergency Contact: Masha Olivarez Mobile Relation: Daughter Admission Information Admit Date: 12/14/2022 Patient status at discharge: Inpatient Admitting Diagnosis Atherosclerotic heart disease of [place] coronary artery without angina pectoris [I25.10] Nonrheumatic aortic (valve) stenosis [I35.0] CAD in [place] artery [I25.10] Caregiver Information Caregiver First Name: n/a Caregiver Last Name: n/a Caregiver Relationship to Patient n/a Caregiver Phone Number: n/a Caregiver Notes: N/A LogicLadder-Tech List No END PATIENT REGISTRATION INFORMATION Pt Home Health [facility] home COVID Status 1. Do you have any upper respiratory symptoms (cough, SOB, Fever)? No 2. Have you been exposed to anyone with COVID-19 Virus? No Answer only if pending or positive for COVID-19? 1. Agreeable to wear PPE at each visit? N/a 2. Is the hospital supplying them with PPE upon Discharge? N/a Start PACC Summary General Report/ Additional Comments [facility] appeal denied - going to stay with dtr-Juani [phone] Discharge Date: 12/30/22 Referral Source-PACC: (Hospital/Unit): [facility] / T1-114/T1-114 A End PACC Note [facility] 12-29-2022 Note Cardiothoracic Surge ry/CCM Progress Note PATIENT NAME: Dayana Quiñones DATE: 12/29/22 HPI: 82-year-old female seen in outpatient setting for surgical evaluation due to progressive shortness of breath with exertion. Patient with significant cardiac history: CAD (RI-October 2018-NEGRO to LAD and LCx; November 2018-NEGRO to RCA), paroxysmal atrial fibrillation, HFrEF-30%, 2+ MR, Surgery was discussed and patient consented to intervention. Surgery/Procedure: 12/14/22: CABGx2 (PEDRAZA LAD, SVG to OM1) MVRepair (28 ring) LAAL with atriclip with Dr. Chou Interval History: 12/29/22, POD# 15: VSS overnight, Vpaced rhythm, on RA. She is resting in chair, continues to improve daily. Denied IPR precert- discussed with patient and daughter, will plan for d/c home tomorrow. Review of Systems Constitutional: Positive for activity change, appetite change and fatigue. Negative for diaphoresis and fever. Respiratory: Negative for cough, shortness of breath and wheezing. Cardiovascular: Negative for chest pain, palpitations and leg swelling. Gastrointestinal: Negative for abdominal distention, constipation and diarrhea. Skin: Negative for color change, pallor and rash. Objective: Last BM Date: 12/29/22 Vitals: BP: (!) 108/45, MAP (mmHg): 61, BP Method: Automatic Heart Rate: 78 Resp: 18 Temp: 36.7 ?C (98.1 ?F), Temp Source: Temporal BMI (Calculated): 28.92 BMP: Recent Labs 12/26/22 2254 12/28/22 0649 NA 132* 135 K 4.4 4.4 CL 98 101 CO2 26 24 BUN 32* 28* CREATININE 1.12* 1.08* CALCIUM 8.7 8.6 CBC: Recent Labs 12/28/22 0649 WBC 12.4* HGB 10.5* HCT 31.7* PLT 296 MCV 91.2 RDW 15.2* INR: No results for input(s): INR in the last 72 hours. Physical Exam Constitutional: General: She is not in acute distress. Appearance: She is not ill-appearing or diaphoretic. Cardiovascular: Rate and Rhythm: Normal rate. Heart sounds: No murmur heard. Comments: Paced. Pulmonary: Effort: Pulmonary effort is normal. Breath sounds: No decreased breath sounds, wheezing or rhonchi. Abdominal: General: There is no distension. Palpations: Abdomen is soft. Musculoskeletal: Right lower leg: No edema. Left lower leg: No edema. Skin: General: Skin is warm and dry. Capillary Refill: Capillary refill takes less than 2 seconds. Findings: Bruising present. Comments: MSI well approximated. No redness, warmth or drainage noted. Neurological: General: No focal deficit present. Mental Status: She is alert and oriented to person, place, and time. Psychiatric: Mood and Affect: Mood normal. Behavior: Behavior normal. Thought Content: Thought content normal. Judgment: Judgment normal. 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 ([employer]) Hx Stroke Paroxsymal Afib/mobitz type II AV block Anxiety Dysphagia Post operative Pulm Management: Normal Post-operative Course Acute blood loss anemia/consumptive thrombocytopenia Plan: Patient Status: Telemetry Continue current med regimen - ASA/Statin - Toprol-XL 50 mg daily - Lasix 40mg & K supp - Eliquis 5mg BID (preop med for Afib) - Entresto, Farxiga, & Aldactone AIR POLLUTION INSPECTOR following - Recs: Easy to chew & thin liquids, meds in whole puree PT/OT: IPR vs home with 24hr supervision Pulmonary hygiene: IS and Acapella GI prophy: IV protonix DVT prophy:TEDs, SCDs, and Patient on OAC/NOAC Disposition: d/c home tomorrow Central Line: []Yes [x] No Arterial Line: []Yes [x] No Colón: []Yes [x] No Restraints: []Yes [x] No Patient discussed and plan of day developed from multidisciplinary rounds between Cardiothoracic Surgery (Cardiothoracic Surgeon, JACEY) and Critical Care Attending Cardiac Core Medications: ASA, Statin, BB, and Entresto EF: 30% (12/18/22) Blood Conservation: Transfused post-op. Batching Operator: Dr. Brumfield [facility] 12-29-2022 Note Care Management Prog ress Note P2P completed and upheld, offered appeal but will take 72 business hours. Spoke with patient's daughter Juani over the phone, based on updated PT recommendations agreeable to patient discharging to her home with C. DME orders received, MURGUIA PACC updated, plan dc tomorrow, patient updated. Discharge Milestones and Delays Expected Date/Time: 12/30/[address] discharge order Complete med reconciliation Case mgmt discharge readiness Clinical Stability Diagnsotic Workup Expected Discharge History Expected Date/Time Set By Reviewed At 12/30/2022 Jessica Jaramillo RN 12/29/2022 11:19 AM 12/29/2022 Jessica Jaramillo RN 12/28/2022 10:18 AM [facility] auth pending 12/28/2022 Jessica Jaramillo RN 12/27/2022 10:09 AM 12/27/2022 Jessica Jaramillo RN 12/26/2022 7:47 AM 12/27/2022 Jessica Jaramillo RN 12/25/2022 9:10 AM 12/25/2022 Jessica Jaramillo RN 12/22/2022 9:41 AM 12/25/2022 Jessica Jaramillo RN 12/21/2022 10:37 AM 12/22/2022 Naheed Fernandez RN 12/20/2022 8:15 AM IPR choice pending 12/22/2022 Naheed Fernandez RN 12/20/2022 8:15 AM 12/21/2022 Naheed Fernandez RN 12/19/2022 7:30 AM 12/19/2022 Naheed Fernandez RN 12/18/2022 10:11 AM 12/19/2022 Jessica Jaramillo RN 12/15/2022 10:02 AM 12/19/2022 Jan Rebollar APRN - JOELLE 12/14/2022 1:03 PM 12/19/2022 Jan Rebollar APRN - JOELLE 12/14/2022 1:00 PM 12/21/2022 Jim Florian APRN - [facility] 12/14/2022 5:47 AM Length of Stay (Days): 15 GMLOS: 5.9 [facility] 12-29-2022 Hospital Discharge instructions Janel Mayberry, GRIS - SHELLFISH PROCESSING MACHINE TENDER - 12/29/2022 11:33 AM EDT Images from the original note were not included. [facility]: Cardiothoracic Surgery [address] [facility] #[phone] Notify us if the following occur - Increased tenderness, redness, or swelling of your incisions. - Any drainage from the chest incision (clear or pink drainage from the leg incision or chest tube site is common). - Angina symptoms like those you had before surgery - Sharp pain in chest, neck or shoulder that is worse when taking a deep breath - Persistent fever greater than 100 degrees F or 38 degrees C - Flu-like symptoms-chills, aches, fever, increased fatigue - Heart rate faster than 150 beats/minute with shortness of breath or new irregular heart rate. - Any unusual bleeding - Shortness of breath not relieved by rest - Weight gain of three pounds in one day or five pounds over one week Activity Instructions - Sternal Precautions for 6 weeks - Do not lift, push, or pull anything heavier than 10 pounds for 6 weeks (a gallon of milk weighs 8 pounds). - Do not drive until you have been given permission by your surgeon/provider and until you are off narcotic/opioid pain medication - It is ok to sleep on your side if you prop pillows to support your back. Do not sleep on your stomach. - Walk at least 4 times a day, start with 5 minute intervals, increase minutes walked each day. Do not walk on a treadmill - Balance rest and activity during your recovery - Use the stairs, but go slowly, Use the handrail for balance but do not pull yourself up with your arms. - Shower daily. Do not take your heart medication right before you shower. You could become lightheaded from your blood pressure and heart medication. Always have someone nearby to assist you. - Do not take a tub bath or use a hot tub until all incision are completely healed (no scab). - Put osmar hose on in AM and remove at bedtime. Elevate your feet above level of heart when you are sitting. - Cough and deep breathe and use incentive spirometer every hour (10x/hour while awake for two weeks). Other Instructions - Weigh yourself daily at the same time (after you urinate but before breakfast) - Keep a record of your daily weight, and bring to your first post op office visit - Take all medications as prescribed. Bring all your medication bottles to any follow up office visit Incision Care - Wash your sternal incision with anti-bacterial soap and warm water. Pat dry, and leave open to air. Do not use any lotions, or powders, or ointments. Quin Mondragon RN - 12/29/2022 1:20 PM EDT Discharging to Facility/ Agency Name: [facility] Alicia Laurent RN - 12/30/2022 1:03 PM EDT documented in this encounter [facility] 12-28-2022 Note Care Management Prog ress Note Patient remains on HLU s/p MV repair and CABG x 2 POD # 14. Medically ready for discharge, precert to [facility] pending. Discharge Milestones and Delays Expected Date/Time: 12/29/[address] discharge order Complete med reconciliation Case mgmt discharge readiness Clinical Stability Diagnsotic Workup Expected Discharge History Expected Date/Time Set By Reviewed At 12/29/2022 Jessica Jaramillo RN 12/28/2022 10:18 AM [facility] auth pending 12/28/2022 Jessica Jaramillo RN 12/27/2022 10:09 AM 12/27/2022 Jessica Jaramillo RN 12/26/2022 7:47 AM 12/27/2022 Jessica Jaramillo RN 12/25/2022 9:10 AM 12/25/2022 Jessica Jaramillo RN 12/22/2022 9:41 AM 12/25/2022 Jessica Jaramillo RN 12/21/2022 10:37 AM 12/22/2022 Naheed Fernandez RN 12/20/2022 8:15 AM IPR choice pending 12/22/2022 Naheed Fernandez RN 12/20/2022 8:15 AM 12/21/2022 Naheed Fernandez RN 12/19/2022 7:30 AM 12/19/2022 Naheed Fernandez RN 12/18/2022 10:11 AM 12/19/2022 Jesisca Jaramillo RN 12/15/2022 10:02 AM 12/19/2022 Jan Rebollar ADDICTION MEDICINE PHYSICIAN - [facility] 12/14/2022 1:03 PM 12/19/2022 Jan Rebollar APRN - [facility] 12/14/2022 1:00 PM 12/21/2022 Jim Florian ADDICTION MEDICINE PHYSICIAN - [facility] 12/14/2022 5:47 AM Length of Stay (Days): 14 GMLOS: 5.9 [facility] 12-28-2022 Note Cardiothoracic Surge ry/CCM Progress Note PATIENT NAME: Dayana Quiñones DATE: 12/28/22 HPI: 82-year-old female seen in outpatient setting for surgical evaluation due to progressive shortness of breath with exertion. Patient with significant cardiac history: CAD (RI-October 2018-NEGRO to LAD and LCx; November 2018-NEGRO to RCA), paroxysmal atrial fibrillation, HFrEF-30%, 2+ MR, Surgery was discussed and patient consented to intervention. Surgery/Procedure: 12/14/22: CABGx2 (PEDRAZA LAD, SVG to OM1) MVRepair (28 ring) LAAL with atriclip with Dr. Chou Interval History: 12/28/22, POD# 14: VSS overnight, V-paced rhythm, on RA. She is resting up in chair, doing well with no acute concerns. She is medically ready for discharge pending precert. Review of Systems Constitutional: Positive for activity change, appetite change and fatigue. Negative for diaphoresis and fever. Respiratory: Negative for cough, shortness of breath and wheezing. Cardiovascular: Negative for chest pain, palpitations and leg swelling. Gastrointestinal: Negative for abdominal distention, constipation and diarrhea. Skin: Negative for color change, pallor and rash. Objective: Last BM Date: 12/23/22 Vitals: BP: 99/59, MAP (mmHg): 72, BP Method: Automatic Heart Rate: 78 Resp: 20 Temp: 36.6 ?C (97.8 ?F), Temp Source: Temporal BMI (Calculated): 29.64 BMP: Recent Labs 12/25/22 1238 12/26/22 2254 NA 137 132* K 5.2* 4.4 CL 99 98 CO2 28 26 BUN 42* 32* CREATININE 0.89 1.12* CALCIUM 8.8 8.7 CBC: No results for input(s): WBC, HGB, HCT, PLT, MCV, RDW in the last 72 hours. INR: No results for input(s): INR in the last 72 hours. Physical Exam Constitutional: General: She is not in acute distress. Appearance: She is not ill-appearing or diaphoretic. Cardiovascular: Rate and Rhythm: Normal rate. Heart sounds: No murmur heard. Comments: Paced. Pulmonary: Effort: Pulmonary effort is normal. Breath sounds: No decreased breath sounds, wheezing or rhonchi. Abdominal: General: There is no distension. Palpations: Abdomen is soft. Musculoskeletal: Right lower leg: No edema. Left lower leg: No edema. Skin: General: Skin is warm and dry. Capillary Refill: Capillary refill takes less than 2 seconds. Findings: Bruising present. Comments: MSI well approximated. No redness, warmth or drainage noted. Neurological: General: No focal deficit present. Mental Status: She is alert and oriented to person, place, and time. Psychiatric: Mood and Affect: Mood normal. Behavior: Behavior normal. Thought Content: Thought content normal. Judgment: Judgment normal. 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 ([employer]) Hx Stroke Paroxsymal Afib/mobitz type II AV block Anxiety Dysphagia Post operative Pulm Management: Normal Post-operative Course Acute blood loss anemia/consumptive thrombocytopenia Plan: Patient Status: Telemetry Continue current med regimen - ASA/Statin - Toprol-XL 50 mg daily - Lasix 40mg & K supp - Eliquis 5mg BID (preop med for Afib) - Entresto, Farxiga, & Aldactone AIR POLLUTION INSPECTOR following - Recs: Easy to chew & thin liquids, meds in mildly thick liquids PT/OT: IPR Pulmonary hygiene: IS and Acapella GI prophy: IV protonix DVT prophy:TEDs, SCDs, and Patient on OAC/NOAC Disposition: Precert pending for IPR Central Line: []Yes [x] No Arterial Line: []Yes [x] No Colón: []Yes [x] No Restraints: []Yes [x] No Patient discussed and plan of day developed from multidisciplinary rounds between Cardiothoracic Surgery (Cardiothoracic Surgeon, JACEY) and Critical Care Attending Cardiac Core Medications: ASA, Statin, BB, and Entresto EF: 30% (12/18/22) Blood Conservation: Transfused post-op. Batching Operator: Dr. Brumfield [facility] 12-27-2022 Note [facility] Wound Care Progress Note Dayana Quiñones AGE: 82 y.o. GENDER: female : 1940 Subjective: HISTORY of PRESENT ILLNESS HPI Dayana Quiñones is a 82 y.o. female who presents for a wound follow up. HPI: Ms. Quiñones is a 82-year-old female seen in outpatient setting for surgical evaluation due to progressive shortness of breath with exertion. Patient with significant cardiac history: CAD (RI-October 2018-NEGRO to LAD and LCx; November 2018-NEGRO to RCA), paroxysmal atrial fibrillation, HFrEF-30%, 2+ MR. Patient underwent CABG, MVR, left atrial appendage and ELA on 12/14/22. Wound Care consulted for right chest and left leg. Patient sitting up in chair at time of visit. PAST MEDICAL HISTORY Past Medical History: Diagnosis Date Anxiety Atherosclerosis of coronary artery bypass graft of [place] heart without angina pectoris Chronic kidney disease GERD (gastroesophageal reflux disease) Hypertension Ischemic cardiomyopathy Mobitz type II atrioventricular block STEMI (ST elevation myocardial infarction) (HCC) 11/16/2018 Stroke (HCC) Vertigo PAST SURGICAL HISTORY Past Surgical History: Procedure Laterality Date BACK SURGERY fusion CARDIAC PACEMAKER PLACEMENT 08/02/2018 CORONARY STENT PLACEMENT 12/19/2018 total of 4 on different occasions FAMILY HISTORY Family History Problem Relation Name Age of Onset Heart disease Father SOCIAL HISTORY Social History Tobacco Use Smoking status: Former Years: 10.00 Types: Cigarettes Quit date: 1967 Years since quittin.6 Smokeless tobacco: Never Vaping Use Vaping Use: Never used Substance Use Topics Alcohol use: Never Drug use: Never ALLERGIES Allergies Allergen Reactions Morphine Other reaction(s): GI Upset, Vomiting vomiting MEDICATIONS No current facility-administered medications on file prior to encounter. Current Outpatient Medications on File Prior to Encounter Medication Sig Dispense Refill aspirin 81 MG EC tablet Take 81 mg by mouth in the morning. atorvastatin (Lipitor) 20 MG tablet Take 20 mg by mouth Nightly. carvedilol (Coreg) 12.5 MG tablet Take 1 tablet by mouth in the morning and 1 tablet in the evening. Take with meals. dapagliflozin (Farxiga) 10 MG Take 10 mg by mouth daily (with breakfast). difluprednate (Durezol) 0.05 % ophthalmic solution Administer 1 drop into the left eye every other day. furosemide (Lasix) 40 MG tablet Take 40 mg by mouth daily. omeprazole (PriLOSEC) [address] capsule Take 40 mg by mouth in the morning. sacubitril-valsartan (Entresto) 24-26 MG tablet Take 1 tablet by mouth in the morning and 1 tablet in the evening. timolol (Timoptic) 0.5 % ophthalmic solution Administer 1 drop into the left eye in the morning and 1 drop in the evening. apixaban (Eliquis) 5 MG tablet Take 5 mg by mouth 2 times daily. REVIEW OF SYSTEMS Pertinent items are noted in HPI. Objective: BP 99/58 Pulse 77 Temp 36.4 ?C (97.6 ?F) (Temporal) Resp 18 Ht 1.6 m (5' 3 ) Wt 76.6 kg (168 lb 14 oz) SpO2 96% PF 55 L/min BMI 29.91 kg/m? PHYSICAL EXAM General appearance: in no apparent distress, alert, and cooperative Skin: warm and dry Pulmonary: Normal effort, no respiratory distress, no cyanosis Right side of neck: small scabs present - no redness or drainage noted- periwound is fragile. Stable Left calf: 5.0cm glued incision. No drainage. No openings. No s/s of infection. Stable LABS CBC: No results found for: WBC, HGB, HCT, MCV, PLT BMP: Lab Results Component Value Date NA 132 (L) 12/26/2022 K 4.4 12/26/2022 CL 98 12/26/2022 CO2 26 12/26/2022 BUN 32 (H) 12/26/2022 CREATININE 1.12 (H) 12/26/2022 PT/INR: No results found for: PROTIME, INR Prealbumin: No results found for: PREALBUMIN Albumin:No components found for: LABALBU Sed Rate:No results found for: SEDRATE Micro: No components found for: BC Assessment/Plan: Right side neck: Skin tear - Apply skin prep then leave LUZ daily and PRN Left calf: Surgical - Leave LUZ - monitor for any s/s of infection Nutritional support Wound Care to follow Recommend to follow up at [facility] wound care center after hospital discharge. Any questions or concerns please secure chat [facility] wound/ostomy . Thank you for the consult! I personally obtained the chang and critical portions of the history and physical exam. I reviewed the labs, imaging studies, and electronic medical record. I reviewed the chart documentation and discussed the patient with treatment team members. I have edited the note to reflect my clinical findings and my assessment and plan. Please note, the time of this note does not reflect the time I saw this patient today, but the time of this documentaton. Portions of this note including HPI, ROS, impression/plan, and examination may have been copied forward from admission to today as to provide important historical (more content not included)... [facility] 12-27-2022 Note Care Management Prog ress Note Patient remains on HLU s/p MV repair and CABG x 2 POD # 13. Precert started to [facility] 12/26. Discharge Milestones and Delays Expected Date/Time: 12/28/[address] discharge order Complete med reconciliation Case mgmt discharge readiness Clinical Stability Diagnsotic Workup Expected Discharge History Expected Date/Time Set By Reviewed At 12/28/2022 Jessica Jaramillo RN 12/27/2022 10:09 AM [facility] auth pending 12/27/2022 Jessica Jaramillo RN 12/26/2022 7:47 AM 12/27/2022 Jessica Jaramillo RN 12/25/2022 9:10 AM 12/25/2022 Jessica Jaramillo RN 12/22/2022 9:41 AM 12/25/2022 Jessica Jaramillo RN 12/21/2022 10:37 AM 12/22/2022 Naheed Fernandez RN 12/20/2022 8:15 AM IPR choice pending 12/22/2022 Naheed Fernandez RN 12/20/2022 8:15 AM 12/21/2022 Naheed Fernandez RN 12/19/2022 7:30 AM 12/19/2022 Naheed Fernandez RN 12/18/2022 10:11 AM 12/19/2022 Jessica Jaramillo RN 12/15/2022 10:02 AM 12/19/2022 Jan Rebollar ADDICTION MEDICINE PHYSICIAN - [facility] 12/14/2022 1:03 PM 12/19/2022 Jan Rebollar APRN - [employer] 12/14/2022 1:00 PM 12/21/2022 Jim Florian ADDICTION MEDICINE PHYSICIAN - [facility] 12/14/2022 5:47 AM Length of Stay (Days): 13 GMLOS: 5.9 [facility] 12-27-2022 Note Cardiothoracic Surge ry/CCM Progress Note PATIENT NAME: Dayana Quiñones DATE: 12/27/22 HPI: 82-year-old female seen in outpatient setting for surgical evaluation due to progressive shortness of breath with exertion. Patient with significant cardiac history: CAD ([place]-October 2018-NEGRO to LAD and LCx; November 2018-NEGRO to RCA), paroxysmal atrial fibrillation, HFrEF-30%, 2+ MR, Surgery was discussed and patient consented to intervention. Surgery/Procedure: 12/14/22: CABGx2 (PEDRAZA LAD, SVG to OM1) MVRepair (28 ring) LAAL with atriclip with Dr. Chou Interval History: 12/27/22, POD# 13: VSS overnight, V-paced rhythm, on RA. Resting in chair, no acute concerns today. MBS completed yesterday, okay to advance diet. Review of Systems Constitutional: Positive for activity change, appetite change and fatigue. Negative for diaphoresis and fever. Respiratory: Negative for cough, shortness of breath and wheezing. Cardiovascular: Negative for chest pain, palpitations and leg swelling. Gastrointestinal: Negative for abdominal distention, constipation and diarrhea. Skin: Negative for color change, pallor and rash. Objective: Last BM Date: 12/25/22 Vitals: BP: 91/50, MAP (mmHg): 62, BP Method: Automatic Heart Rate: 75 Resp: 18 Temp: 36.4 ?C (97.6 ?F), Temp Source: Temporal BMI (Calculated): 29.92 BMP: Recent Labs 12/25/22 1238 12/26/22 2254 NA 137 132* K 5.2* 4.4 CL 99 98 CO2 28 26 BUN 42* 32* CREATININE 0.89 1.12* CALCIUM 8.8 8.7 CBC: No results for input(s): WBC, HGB, HCT, PLT, MCV, RDW in the last 72 hours. INR: No results for input(s): INR in the last 72 hours. Physical Exam Constitutional: General: She is not in acute distress. Appearance: She is not ill-appearing or diaphoretic. Cardiovascular: Rate and Rhythm: Normal rate. Heart sounds: No murmur heard. Comments: Paced. Pulmonary: Effort: Pulmonary effort is normal. Breath sounds: Decreased breath sounds present. No wheezing or rhonchi. Abdominal: General: There is no distension. Palpations: Abdomen is soft. Musculoskeletal: Right lower leg: No edema. Left lower leg: No edema. Skin: General: Skin is warm and dry. Capillary Refill: Capillary refill takes less than 2 seconds. Findings: Bruising present. Comments: MSI well approximated. No redness, warmth or drainage noted. Neurological: General: No focal deficit present. Mental Status: She is alert and oriented to person, place, and time. Psychiatric: Mood and Affect: Mood normal. Behavior: Behavior normal. Thought Content: Thought content normal. Judgment: Judgment normal. 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 ([facility]) Hx Stroke Paroxsymal Afib/mobitz type II AV block Anxiety Dysphagia Post operative Pulm Management: Normal Post-operative Course Acute blood loss anemia/consumptive thrombocytopenia Plan: Patient Status: Telemetry Continue current med regimen - ASA/Statin - Toprol-XL 50 mg daily - Lasix 40mg & K supp - Eliquis 5mg BID (preop med for Afib) - Entresto, Farxiga, & Aldactone AIR POLLUTION INSPECTOR following - MBS yesterday - Recs: Easy to chew & thin liquids, meds in mildly thick liquids PT/OT: IPR Pulmonary hygiene: IS and Acapella GI prophy: IV protonix DVT prophy:TEDs, SCDs, and Patient on OAC/NOAC Disposition: Precert pending for IPR Central Line: []Yes [x] No Arterial Line: []Yes [x] No Colón: []Yes [x] No Restraints: []Yes [x] No Patient discussed and plan of day developed from multidisciplinary rounds between Cardiothoracic Surgery (Cardiothoracic Surgeon, JACEY) and Critical Care Attending Cardiac Core Medications: ASA, Statin, BB, and Entresto EF: 30% (12/18/22) Blood Conservation: Transfused post-op. Batching Operator: Dr. Brumfield [facility] 12-26-2022 Note SPEECH SERVICE PARTS COORDINATOR OLOGY MODIFIED BARIUM SWALLOW STUDY Patient Name: Dayana Quiñones : 1940 Today's Date: 12/26/2022 Visit Info / [facility] ADMISSION DATE: 12/14/2022 ADMITTING DIAGNOSIS: has CAD in [place] artery on their problem list. General Information Radiologist: Dr. Bettencourt / Elinor Verdugo Date of Onset: 12/14/2022 Date of Prior Study: 12/15/2022 Type of Study: Repeat MBS Results of Prior Study: Oral Phase: Impaired Oral Phase Oral Phase: Pt with mildly prolonged mastication & oral prep transit with mild-mod oral residuals with solids. Pt also with decreased oral control with thin & nectar with premature spillage to the pyriforms consistently & occasionally into laryngeal vestibule with thin. Pharyngeal Phase: Pharyngeal Phase Pharyngeal Phase: Impaired Pharyngeal Phase Pharyngeal: Pt with slightly delayed airway closure with liquidsresulting in penetration before or during the swallow with thin & during the swallow with nectar. Pt with trace to min laryngeal residuals with thin that x1 results in vocal cord penetration. Pt with a delayed cough response to same while off fluoro, so can't exclude possible trace aspiration with thin. The cough appeared to be effective as airway was clear upon view. Pt also with inconsistent trace upper epiglottic staining remaining with nectar but the pt was able to clear with cued cough or at times with second swallow. The pt did x1 have trace penetration after the swallow with nectar but only on epiglottic tip & again was able to clear. Pt is noted to have an epiglottis that curls towards her tongue base which appears to contribute to ease of penetration along with decreased oral control. Pt also with reduced tongue base retraction, reduced pharyngeal stripping & min decreased epiglottic inversion. Pt with trace to mod tongue base/valleculae residuals (greater with dry cookie), trace to mod pharyngeal wall residualss (greatest with larger bite of puree) & trace-mild pyriform residuals. Pt did have improved pharyngeal clearance & airway closure with effortful swallows with hard effortful 2nd swallows but also needed a liquid wash with dry cookie. A chin tuck was also attempted but was not beneficial & appeared to increase penetration with nectar. Compensatory Swallowing Strategies Attempted: Alternate solids and liquids, Effortful swallow, Small bites/sips, Swallow 2 times per bite/sip, No straws, Upright as possible for all oral intake, Remain upright for 30-45 minutes after meals, Other (comments) (Hard cough every few bolus) Cervical Esophageal Phase: Upper Esophageal Screen Esophageal Screen: Impaired Upper Esophageal Screen Upper Esophageal Screen: Noted backflow at end of study with repeated hard coughing, concern for decreased esophageal clearance as now upper stasis noted prior to event. may need further GI assessment. Impression Pt with mild-mod oral & mod pharyngeal dysphagia due to slow oral prep & transit, reduced oral control with delayed airway closure, reduced tongue base & pharyngeal contraction & decreased epiglottic deflection. Function improved with 1/2 tsp bites, small cup sips, effortful swallows, 2nd swallows, liquid wash & cough every about 3 bolus. Concern for fatigue as well as possible esophageal dysfunction, so will complete a Soft & Bite-Sized with [place] training meal with above strategies. Continue Free Water Protocol. Current Diet Solid Consistency: Dysphagia Soft and Bite-Sized (Dysphagia III) Current Diet Liquid Consistency: Mildly Thick (Farn[place]) Patient complaints: Hopeful to resume a regular diet Referring Diagnosis: SOB ; CABG Consistencies Administered: Reg solid, [place] cup, Thin cup, Thin straw Procedure Method: Self feed, Cup, Straw Patient Position: Lateral Patient Degrees: 90 Patient was referred for a MBSS to assess the efficiency of her swallow function, rule out aspiration and make recommendations regarding safe dietary consistencies, effective compensatory strategies, and safe eating environment. Past Medical History: Diagnosis Date Anxiety Atherosclerosis of coronary artery bypass graft of [place] heart without angina pectoris Chronic kidney disease GERD (gastroesophageal reflux disease) Hypertension Ischemic cardiomyopathy Mobitz type II atrioventricular block STEMI (ST elevation myocardial infarction) ([facility]) 11/16/2018 Stroke ([facility]) Vertigo Past Surgical History: Procedure Laterality Date BACK SURGERY fusion CARDIAC PACEMAKER PLACEMENT 08/02/2018 CORONARY STENT PLACEMENT 12/19/2018 total of 4 on different occasions Subjective General Chart Reviewed: Yes HPI: 82-year-old female seen in outpatient setting for surgical evaluation due to progressive shortness of breath with exertion. Patient with significant cardiac history: CAD ([place]-October 2018-NEGRO to LAD and LCx; November 2018-NEGRO to RCA), paroxysmal atrial fibrillation, HFrE (more content not included)... [facility] 12-26-2022 Procedure note Images from the original note were not included. SPEECH LANGUAGE PATHOLOGY MODIFIED BARIUM SWALLOW STUDY Patient Name: Dayana Quiñones : 1940 Today's Date: 12/26/2022 Visit Info / [facility] ADMISSION DATE: 12/14/2022 ADMITTING DIAGNOSIS: has CAD in [place] artery on their problem list. General Information Radiologist: Dr. Bettencourt / Elinor Verdugo Date of Onset: 12/14/2022 Date of Prior Study: 12/15/2022 Type of Study: Repeat MBS Results of Prior Study: Oral Phase: Impaired Oral Phase Oral Phase: Pt with mildly prolonged mastication & oral prep transit with mild-mod oral residuals with solids. Pt also with decreased oral control with thin & nectar with premature spillage to the pyriforms consistently & occasionally into laryngeal vestibule with thin. Pharyngeal Phase: Pharyngeal Phase Pharyngeal Phase: Impaired Pharyngeal Phase Pharyngeal: Pt with slightly delayed airway closure with liquidsresulting in penetration before or during the swallow with thin & during the swallow with nectar. Pt with trace to min laryngeal residuals with thin that x1 results in vocal cord penetration. Pt with a delayed cough response to same while off fluoro, so can't exclude possible trace aspiration with thin. The cough appeared to be effective as airway was clear upon view. Pt also with inconsistent trace upper epiglottic staining remaining with nectar but the pt was able to clear with cued cough or at times with second swallow. The pt did x1 have trace penetration after the swallow with nectar but only on epiglottic tip & again was able to clear. Pt is noted to have an epiglottis that curls towards her tongue base which appears to contribute to ease of penetration along with decreased oral control. Pt also with reduced tongue base retraction, reduced pharyngeal stripping & min decreased epiglottic inversion. Pt with trace to mod tongue base/valleculae residuals (greater with dry cookie), trace to mod pharyngeal wall residualss (greatest with larger bite of puree) & trace-mild pyriform residuals. Pt did have improved pharyngeal clearance & airway closure with effortful swallows with hard effortful 2nd swallows but also needed a liquid wash with dry cookie. A chin tuck was also attempted but was not beneficial & appeared to increase penetration with nectar. Compensatory Swallowing Strategies Attempted: Alternate solids and liquids, Effortful swallow, Small bites/sips, Swallow 2 times per bite/sip, No straws, Upright as possible for all oral intake, Remain upright for 30-45 minutes after meals, Other (comments) (Hard cough every few bolus) Cervical Esophageal Phase: Upper Esophageal Screen Esophageal Screen: Impaired Upper Esophageal Screen Upper Esophageal Screen: Noted backflow at end of study with repeated hard coughing, concern for decreased esophageal clearance as now upper stasis noted prior to event. may need further GI assessment. Impression Pt with mild-mod oral & mod pharyngeal dysphagia due to slow oral prep & transit, reduced oral control with delayed airway closure, reduced tongue base & pharyngeal contraction & decreased epiglottic deflection. Function improved with 1/2 tsp bites, small cup sips, effortful swallows, 2nd swallows, liquid wash & cough every about 3 bolus. Concern for fatigue as well as possible esophageal dysfunction, so will complete a Soft & Bite-Sized with [place] training meal with above strategies. Continue Free Water Protocol. Current Diet Solid Consistency: Dysphagia Soft and Bite-Sized (Dysphagia III) Current Diet Liquid Consistency: Mildly Thick ([place]) Patient complaints: Hopeful to resume a regular diet Referring Diagnosis: SOB ; CABG Consistencies Administered: Reg solid, [place] cup, Thin cup, Thin straw Procedure Method: Self feed, Cup, Straw Patient Position: Lateral Patient Degrees: 90 Patient was referred for a MBSS to assess the efficiency of her swallow function, rule out aspiration and make recommendations regarding safe dietary consistencies, effective compensatory strategies, and safe eating environment. Past Medical History: Diagnosis Date Anxiety Atherosclerosis of coronary artery bypass graft of [place] heart without angina pectoris Chronic kidney disease GERD (gastroesophageal reflux disease) Hypertension Ischemic cardiomyopathy Mobitz type II atrioventricular block STEMI (ST elevation myocardial infarction) ([facility]) 11/16/2018 Stroke ([facility]) Vertigo Past Surgical History: Procedure Laterality Date BACK SURGERY fusion CARDIAC PACEMAKER PLACEMENT 08/02/2018 CORONARY STENT PLACEMENT 12/19/2018 total of 4 on different occasions Subjective General Chart Reviewed: Yes HPI: 82-year-old female seen in outpatient setting for surgical evaluation due to progressive shortness of breath with exertion. Patient with significant cardiac history: CAD ([place]-October 2018-NEGRO to LAD and LCx; November 2018-NEGRO to RCA), paroxysmal atrial fibrillation, HFrEF-30%, 2+ MR, Surgery was discussed and patient consented to intervention. Surgery/Procedure: 12/14/22: CABGx2 (PEDRAZA LAD, SVG to OM1) MVRepair (28 ring) LAAL with atriclip with Dr. Chou Interval History: 12/26/22, POD# 12. Afebrile, paced rhythm on tele, BP stable, on RA. Creat trended down yesterday. Passed swallow eval, NG removed and started on modified diet. Sitting up in chair this AM, just returned form walk with nursing. Doing well, no complaints. Was able to eat yesterday. No acute events overnight. Subjective Subjective: Alert & cooperative Behavior/Cognition Behavior/Cognition: Alert, Cooperative, Pleasant mood Assessment Oral Preparation / Oral Phase: Oral Preparation / Oral Phase Oral Phase: Impaired Oral Phase Oral Phase: Mastication, bolus formation and AP transit are WFL. There is coating on the base of the tongue after the Laura cookie bolus. Patient shows awareness for same and uses a re-swallow x 2. There continues to be slightly incomplete oral bolus containment of thin liquids; spilling into the laryngeal vestibule just prior to or during the swallow - especially with larger bolus size. Pharyngeal Phase: Pharyngeal Phase Pharyngeal Phase: Impaired Pharyngeal Phase Pharyngeal: The onset of the swallow is prompt. However, patient continues with incomplete pharyngeal contraction (base of tongue and pharyngeal wall) / incomplete pharyngeal clearance / incomplete epiglottic deflection. As such, there is mild piriform sinus residue after the swallow with thin liquids. There is penetration into the laryngeal vestibule above the vocal cords with thin liquid via cup. There is vocal cord penetration during the swallow only with consecutive straw drinks of thin liquid. There is an immediate cough response to same. (Calcifications of the larynx makes definition of vocal cord penetration more difficult.) There is no tracheal aspiration documented. Compensatory Swallowing Strategies Attempted: Alternate solids and liquids, Effortful swallow, Small bites/sips, Swallow 2 times per bite/sip, No straws, Upright as possible for all oral intake Cervical Esophageal Phase: Upper Esophageal Screen Upper Esophageal Screen: Noted mild hypertrophy of the UES. Impression Patient presents with mild oropharyngeal dysphagia associated with reduced oral bolus control of thin liquids, base of tongue and posterior pharyngeal wall weakness and incomplete epiglottic deflection. Recommend an Easy to Chew Menu with Thin Liquids. May need to take meds in mildly thick liquid. Will continue the dysphagia plan of care to ensure patient tolerance of the upgraded diet and continue oropharyngeal strengthening. Plan & Recommendations Recommendations/Treatment: Recommendations/Treat Requires AIR POLLUTION INSPECTOR Intervention: Yes Speech therapy is recommended during this hospitalization, Ongoing speech therapy is recommended at next level of care Solid consistency: Easy to Chew Liquid consistency: Thin Liquid administration via: Cup Medication administration: Meds in puree or with mildly thick liquids Supervision: Distant Compensatory Swallowing Strategies : Small bites/sips, Effortful swallow, Swallow 2 times per bite/sip, Upright as possible for all oral intake, No straws Therapeutic Interventions: Bolus control exercises, Diet tolerance monitoring, Tongue base strengthening, Patient/Family education, Effortful swallow, Pharyngeal exercises, Carlene, Brunosn Water Protocol Education Given: safety, goals explained, swallowing strategies, diet recommendations Education Response: Verbalizes understanding Prognosis: Prognosis Prognosis for safe diet advancement: good Barriers/Prognosis Comment: possible GI dysfunction Individuals consulted Consulted and agree with results and recommendations: Patient The patient was educated regarding the general results and recommendations of this evaluation. Encounter Problems Encounter Problems (Active) Swallowing Patient will complete oropharyngeal strengthening exercises to improve swallow function (Not Addressed) Start: 12/17/22 Expected End: 01/01/23 Patient will tolerate the least restrictive diet consistency to allow for safe consumption of daily meals (Progressing) Start: 12/18/22 Expected End: 01/01/23 Patient will tolerate therapeutic trials of recommended consistency without clinical signs and symptoms of aspiration (Progressing) Start: 12/18/22 Expected End: 01/01/23 Patient will participate in instrumental assessment of swallowing as appropriate (Completed) Start: 12/21/22 Expected End: 12/22/22 Resolved: 12/23/22 Encounter Problems (Resolved) Swallowing Patient will participate in repeat clinical dysphagia evaluation (Completed) Start: 12/15/22 Expected End: 12/29/22 Resolved: 12/17/22 Patient will participate in instrumental assessment of swallowing as appropriate (Completed) Start: 12/16/22 Expected End: 12/30/22 Resolved: 12/17/22 Therapy Time AIR POLLUTION INSPECTOR Individual Minutes Time In: 1455 Time Out: 1515 Minutes: 20 Rosalia Ferro MS, CCC/AIR POLLUTION INSPECTOR Images from the original note were not included. SPEECH LANGUAGE PATHOLOGY MODIFIED BARIUM SWALLOW STUDY Patient Name: Dayana Quiñones : 1940 Today's Date: 12/22/2022 Visit Info / [facility] ADMISSION DATE: 12/14/2022 ADMITTING DIAGNOSIS: has CAD in [place] artery on their problem list. General Information Radiologist: Dada Date of Onset: 12/14/2022 Date of Prior Study: 12/17/2022 Impression Mild-moderate oral and moderate pharyngeal dysphagia with decreased lingual strength & coordination, decreased airway protection, and reduced pharyngeal clearance resulting in aspiration during the swallow on presented bolus as well as residue. Patient inconsistently responded to aspiration with a weak, ineffective cough. Recommend NPO with AIR POLLUTION INSPECTOR to instruct patient on Free Water Protocol with ice chips and water via teaspoon with double swallow and intermittent cough and re-swallow. Type of Study: Repeat MBS Current Diet Solid Consistency: NPO Current Diet Liquid Consistency: NPO, Other (comments) (Free water protocol) Patient complaints: thirsty Referring Diagnosis: dysphagia s/p CABG & MVR Consistencies Administered: Reg solid, Dysphagia Pureed (Dysphagia I), Farnham cup, [place]ham teaspoon, Thin cup, Thin teaspoon (mixed with nectar) Procedure Method: Cup, Feed by clinician, Self feed, Spoon Patient Position: Lateral Patient was referred for a to assess the efficiency of her swallow function, rule out aspiration and make recommendations regarding safe dietary consistencies, effective compensatory strategies, and safe eating environment. Past Medical History: Diagnosis Date Anxiety Atherosclerosis of coronary artery bypass graft of [place] heart without angina pectoris Chronic kidney disease GERD (gastroesophageal reflux disease) Hypertension Ischemic cardiomyopathy Mobitz type II atrioventricular block STEMI (ST elevation myocardial infarction) ([facility]) 11/16/2018 Stroke ([facility]) Vertigo Past Surgical History: Procedure Laterality Date BACK SURGERY fusion CARDIAC PACEMAKER PLACEMENT 08/02/2018 CORONARY STENT PLACEMENT 12/19/2018 total of 4 on different occasions Subjective General Chart Reviewed: Yes Subjective Subjective: Alert & cooperative with Dobhoff in place & no order to remove as well as no notes from recent AIR POLLUTION INSPECTOR indicating need to remove so proceeded with MBSS Behavior/Cognition Behavior/Cognition: Alert, Cooperative, Pleasant mood Assessment Oral Preparation / Oral Phase: Oral Preparation / Oral Phase Oral Phase: Impaired Oral Phase Oral Phase: Pt with mildly prolonged mastication & oral prep transit with mild-mod oral residuals with solids. Pt also with decreased oral control with thin & nectar with premature spillage to the pyriforms consistently & occasionally into laryngeal vestibule with thin. Pharyngeal Phase: Pharyngeal Phase Pharyngeal Phase: Impaired Pharyngeal Phase Pharyngeal: Pt with slightly delayed airway closure with liquidsresulting in penetration before or during the swallow with thin & during the swallow with nectar. Pt with trace to min laryngeal residuals with thin that x1 results in vocal cord penetration. Pt with a delayed cough response to same while off fluoro, so can't exclude possible trace aspiration with thin. The cough appeared to be effective as airway was clear upon view. Pt also with inconsistent trace upper epiglottic staining remaining with nectar but the pt was able to clear with cued cough or at times with second swallow. The pt did x1 have trace penetration after the swallow with nectar but only on epiglottic tip & again was able to clear. Pt is noted to have an epiglottis that curls towards her tongue base which appears to contribute to ease of penetration along with decreased oral control. Pt also with reduced tongue base retraction, reduced pharyngeal stripping & min decreased epiglottic inversion. Pt with trace to mod tongue base/valleculae residuals (greater with dry cookie), trace to mod pharyngeal wall residualss (greatest with larger bite of puree) & trace-mild pyriform residuals. Pt did have improved pharyngeal clearance & airway closure with effortful swallows with hard effortful 2nd swallows but also needed a liquid wash with dry cookie. A chin tuck was also attempted but was not beneficial & appeared to increase penetration with nectar. Compensatory Swallowing Strategies Attempted: Alternate solids and liquids, Effortful swallow, Small bites/sips, Swallow 2 times per bite/sip, No straws, Upright as possible for all oral intake, Remain upright for 30-45 minutes after meals, Other (comments) (Hard cough every few bolus) Cervical Esophageal Phase: Upper Esophageal Screen Esophageal Screen: Impaired Upper Esophageal Screen Upper Esophageal Screen: Noted backflow at end of study with repeated hard coughing, concern for decreased esophageal clearance as now upper stasis noted prior to event. may need further GI assessment. Impression Pt with mild-mod oral & mod pharyngeal dysphagia due to slow oral prep & transit, reduced oral control with delayed airway closure, reduced tongue base & pharyngeal contraction & decreased epiglottic deflection. Function improved with 1/2 tsp bites, small cup sips, effortful swallows, 2nd swallows, liquid wash & cough every about 3 bolus. Concern for fatigue as well as possible esophageal dysfunction, so will complete a Soft & Bite-Sized with [place] training meal with above strategies. Continue Free Water Protocol. Plan & Recommendations Recommendations/Treatment: Recommendations/Treat Requires AIR POLLUTION INSPECTOR Intervention: Yes Referral To: GI Recommendations: F/U [facility] [place] Recommendations comment: Pt will likely need a follow up study prior to full upgrade to thin. Will be completing a training meal to ensure strategy use as well as does not fatigue for full meal prior to diet advancement. Pt may also need GI C/S as noted stasis with backflow at end of study. D/C Recommendations: Ongoing speech therapy is recommended during this hospitalization Solid consistency: NPO Liquid consistency: NPO (Continue Free Water Protocol) Medication administration: Meds in puree (in small amount of puree crushed with effortful swallow & second swallow) Compensatory Swallowing Strategies : Alternate solids and liquids, Effortful swallow, Small bites/sips, Swallow 2 times per bite/sip, Upright as possible for all oral intake, Remain upright for 30-45 minutes after meals, No straws Therapeutic Interventions: Bolus control exercises, Diet tolerance monitoring, Tongue base strengthening, Patient/Family education, Effortful swallow, Pharyngeal exercises, CarleneBoy Water Protocol Education Given: safety, goals explained, swallowing strategies, diet recommendations Education Response: Verbalizes understanding Prognosis: Prognosis Prognosis for safe diet advancement: good Barriers/Prognosis Comment: possible GI dysfunction Individuals consulted Consulted and agree with results and recommendations: Patient The patient was educated regarding the general results and recommendations of this evaluation. Encounter Problems Encounter Problems (Active) Swallowing Patient will complete oropharyngeal strengthening exercises to improve swallow function (Not Addressed) Start: 12/17/22 Expected End: 01/01/23 Patient will tolerate the least restrictive diet consistency to allow for safe consumption of daily meals Start: 12/18/22 Expected End: 01/01/23 Patient will tolerate therapeutic trials of recommended consistency without clinical signs and symptoms of aspiration (Progressing) Start: 12/18/22 Expected End: 01/01/23 Patient will participate in instrumental assessment of swallowing as appropriate (Progressing) Start: 12/21/22 Expected End: 12/22/22 Encounter Problems (Resolved) Swallowing Patient will participate in repeat clinical dysphagia evaluation (Completed) Start: 12/15/22 Expected End: 12/29/22 Resolved: 12/17/22 Patient will participate in instrumental assessment of swallowing as appropriate (Completed) Start: 12/16/22 Expected End: 12/30/22 Resolved: 12/17/22 Therapy Time AIR POLLUTION INSPECTOR Individual Minutes Time In: 1010 Time Out: 1050 Minutes: 40 Ariadne Sainz MA, CCC-AIR POLLUTION INSPECTOR Images from the original note were not included. SPEECH LANGUAGE PATHOLOGY MODIFIED BARIUM SWALLOW STUDY Patient Name: Dayana Quiñones : 1940 Today's Date: 12/17/2022 Visit Info / [facility] ADMISSION DATE: 12/14/2022 ADMITTING DIAGNOSIS: has CAD in [place] artery on their problem list. General Information Radiologist: Dr. Roberts Date of Onset: 12/14/2022 Type of Study: Initial MBS Current Diet Solid Consistency: NPO Current Diet Liquid Consistency: NPO Patient complaints: They won't let me have anything to drink Consistencies Administered: Reg solid, Dysphagia Pureed (Dysphagia I), Farnham cup, Thin cup, Thin teaspoon, Thin straw Patient Position: Lateral Patient was referred for a modified barium swallow study to assess the efficiency of her swallow function, rule out aspiration and make recommendations regarding safe dietary consistencies, effective compensatory strategies, and safe eating environment. Past Medical History: Diagnosis Date Anxiety Atherosclerosis of coronary artery bypass graft of [place] heart without angina pectoris Chronic kidney disease GERD (gastroesophageal reflux disease) Hypertension Ischemic cardiomyopathy Mobitz type II atrioventricular block STEMI (ST elevation myocardial infarction) ([facility]) 11/16/2018 Stroke ([facility]) Vertigo Past Surgical History: Procedure Laterality Date BACK SURGERY fusion CARDIAC PACEMAKER PLACEMENT 08/02/2018 CORONARY STENT PLACEMENT 12/19/2018 total of 4 on different occasions Dayana Quiñones is a 82 y.o. female referred by Dr. Brumfield for CABG and MVR. Per note, pt has history of CAD s/p acute RI and underwent dug-eluting stent to LAD as well as left circumflex artery. In November 2018, she underwent a drug-eluting stent to the right coronary artery. In April 2020, she presented with chest pain and SOB. She underwent a stress test which demonstrated anteroapical ischemia. She also underwent a heart catheterization which demonstrated preserved EF of 60%, patent stents in the ostial left circumflex 70% stenosis. Medical therapy was recommended. Echocardiogram done in May 2021 demonstrated an EF of 30%. Pt saw Cardiology for an urgent appointment in October 2022 for increased SOB. Pt underwent a cardiac catheterization on 11/22/22 which demonstrated distal left main coronary artery and patent stent in the circumflex artery and right coronary artery with reduced left ventricular systolic function estimated EF 30% with moderate mitral regurgitation. Pt is currently taking Eliquis for atrial fibrillation. Pt is here now for an evaluation. Subjective General Chart Reviewed: Yes Behavior/Cognition Behavior/Cognition: Alert, Cooperative Assessment Oral Preparation / Oral Phase: Oral Preparation / Oral Phase Oral Phase: Impaired Oral Phase Oral Phase: mild-moderately reduced lingual strength & coordination resulting in poor bolus formation, oral residue and premature spillage of liquids, mildly thick and thin, to laryngeal vestibule (inconsistently). mastication is adequate while mildly prolonged Pharyngeal Phase: Pharyngeal Phase Pharyngeal Phase: Impaired Pharyngeal Phase Pharyngeal: moderate pharyngeal phase dysphagia with decreased airway closure and pharyngeal clearance resulting in aspiration with inconsistent, weak, ineffective cough response Cervical Esophageal Phase: Upper Esophageal Screen Esophageal Screen: WFL (visualized above level of UES only) Impression Mild-moderate oral and moderate pharyngeal dysphagia with decreased lingual strength & coordination, decreased airway protection, and reduced pharyngeal clearance resulting in aspiration during the swallow on presented bolus as well as residue. Patient inconsistently responded to aspiration with a weak, ineffective cough. Recommend NPO with AIR POLLUTION INSPECTOR to instruct patient on Free Water Protocol with ice chips and water via teaspoon with double swallow and intermittent cough and re-swallow. Plan & Recommendations Recommendations/Treatment: Recommendations/Treat Requires AIR POLLUTION INSPECTOR Intervention: Yes D/C Recommendations: Ongoing speech therapy is recommended during this hospitalization Solid consistency: NPO Liquid consistency: NPO Medication administration: Other (Recommend non-oral administration of medications.) Education Given: safety Education Response: Needs reinforcement Prognosis: Prognosis Prognosis for safe diet advancement: good The patient was educated regarding the general results and recommendations of this evaluation. Encounter Problems Encounter Problems (Active) Swallowing Patient will participate in repeat clinical dysphagia evaluation (Not Progressing) Start: 12/15/22 Expected End: 12/29/22 Patient will participate in instrumental assessment of swallowing as appropriate (Initiated) Start: 12/16/22 Expected End: 12/30/22 OMARI Logan documented in this encounter [facility] 12-26-2022 Note Care Management Prog ress Note Patient remains on HLU s/p MV repair and CABG x 2 POD # 12. VSS, on RA, paced on tele, passed speech eval-NG removed-now on soft bite sized diet with mildly thick liquids and PT recommending IPR-awaiting updated OT note in order to start precert to [facility]. Spoke with patient at bedside and daughter Juani over the phone to update on process. Discharge Milestones and Delays Expected Date/Time: 12/27/[address] discharge order Complete med reconciliation Case mgmt discharge readiness Clinical Stability Diagnsotic Workup Expected Discharge History Expected Date/Time Set By Reviewed At 12/27/2022 Jessica Jaramillo RN 12/26/2022 7:47 AM 12/27/2022 Jessica Jaramillo RN 12/25/2022 9:10 AM 12/25/2022 Jessica Jaramillo RN 12/22/2022 9:41 AM 12/25/2022 Jessica Jaramillo RN 12/21/2022 10:37 AM 12/22/2022 Naheed Fernandez RN 12/20/2022 8:15 AM IPR choice pending 12/22/2022 Naheed Fernandez RN 12/20/2022 8:15 AM 12/21/2022 Naheed Fernandez RN 12/19/2022 7:30 AM 12/19/2022 Naheed Fernandez RN 12/18/2022 10:11 AM 12/19/2022 Jessica Jaramillo RN 12/15/2022 10:02 AM 12/19/2022 Jan Rebollar APRN [facility] 12/14/2022 1:03 PM 12/19/2022 Jan Rebollar APRN [facility] 12/14/2022 1:00 PM 12/21/2022 Jim Florian APRN [facility] 12/14/2022 5:47 AM Length of Stay (Days): 12 GMLOS: 5.9 [facility] 12-26-2022 Note Cardiothoracic Surge ry/[facility] Progress Note PATIENT NAME: Dayana Quiñones DATE: 12/26/22 HPI: 82-year-old female seen in outpatient setting for surgical evaluation due to progressive shortness of breath with exertion. Patient with significant cardiac history: CAD (RI-October 2018-NEGRO to LAD and LCx; November 2018-NEGRO to RCA), paroxysmal atrial fibrillation, HFrEF-30%, 2+ MR, Surgery was discussed and patient consented to intervention. Surgery/Procedure: 12/14/22: CABGx2 (PEDRAZA LAD, SVG to OM1) MVRepair (28 ring) LAAL with atriclip with Dr. Chou Interval History: 12/26/22, POD# 12. Afebrile, paced rhythm on tele, BP stable, on RA. Creat trended down yesterday. Passed swallow eval, NG removed and started on modified diet. Sitting up in chair this AM, just returned form walk with nursing. Doing well, no complaints. Was able to eat yesterday. No acute events overnight. Review of Systems Constitutional: Negative for chills, diaphoresis, fatigue and fever. Respiratory: Negative for cough, shortness of breath and wheezing. Cardiovascular: Negative for chest pain, palpitations and leg swelling. Gastrointestinal: Negative for abdominal distention and abdominal pain. Neurological: Negative for dizziness, syncope and light-headedness. Objective: Last BM Date: 12/25/22 Vitals: BP: 112/62, MAP (mmHg): 75, BP Method: Automatic Heart Rate: 74 Resp: 18 Temp: 36.8 ?C (98.2 ?F), Temp Source: Temporal BMI (Calculated): 30.23 BMP: Recent Labs 12/24/22 0009 12/25/22 1238 NA 137 137 K 4.7 5.2* CL 101 99 CO2 26 28 BUN 54* 42* CREATININE 1.09* 0.89 CALCIUM 8.8 8.8 MG 2.0 -- CBC: Recent Labs 12/24/22 0009 WBC 10.8* HGB 10.4* HCT 31.0* PLT 236 MCV 91.1 RDW 16.0* INR: No results for input(s): INR in the last 72 hours. Physical Exam Vitals reviewed. Constitutional: General: She is not in acute distress. Appearance: She is not ill-appearing or diaphoretic. Cardiovascular: Rate and Rhythm: Normal rate. Comments: Paced. Pulmonary: Effort: Pulmonary effort is normal. Breath sounds: No wheezing, rhonchi or rales. Abdominal: General: There is no distension. Palpations: Abdomen is soft. Skin: General: Skin is warm and dry. Capillary Refill: Capillary refill takes less than 2 seconds. Findings: Bruising present. Comments: MSI well approximated. No redness, warmth or drainage noted. Neurological: General: No focal deficit present. Mental Status: She is alert and oriented to person, place, and time. Psychiatric: Mood and Affect: Mood normal. Behavior: Behavior normal. Thought Content: Thought content normal. Judgment: Judgment normal. 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 -Advanced to modified diet. -Dobhoff removed. Creat normalized on re-check. Restart daily lasix and K supplement. Continue aspirin, statin and BB. Entresto, Farxiga and aldactone. Eliquis for atrial fibrillation. PT/OT: 12/25/22- IPR Pulmonary hygiene: IS and Acapella GI prophy: IV protonix DVT prophy:TEDs, SCDs, and Patient on OAC/NOAC Disposition: Plan for IPR, medically ready at this point. Central Line: []Yes [x] No Arterial Line: []Yes [x] No Colón: []Yes [x] No Restraints: []Yes [x] No Patient discussed and plan of day developed from multidisciplinary rounds between Cardiothoracic Surgery (Cardiothoracic Surgeon, JACEY) and Critical Care Attending Cardiac Core Medications: ASA, Statin, BB, and Entresto EF: 30% (12/18/22) Blood Conservation: Transfused post-op. Batching Operator: Dr. Brumfield [facility] 12-25-2022 Note Care Management Prog ress Note Patient remains on HLU s/p MV repair and CABG x 2 POD # 11. On Ra, BP on low side but stable, paced rhythm, awaiting speech re-eval, and PTOT recommending IPR. Plan [facility] when medically ready. Discharge Milestones and Delays Expected Date/Time: 12/27/[address] discharge order Complete med reconciliation Case mgmt discharge readiness Clinical Stability Diagnsotic Workup Expected Discharge History Expected Date/Time Set By Reviewed At 12/27/2022 Jessica Jaramillo RN 12/25/2022 9:10 AM 12/25/2022 Jessica Jaramillo RN 12/22/2022 9:41 AM 12/25/2022 Jessica Jaramillo RN 12/21/2022 10:37 AM 12/22/2022 Naheed Fernandez RN 12/20/2022 8:15 AM IPR choice pending 12/22/2022 Naheed Fernandez RN 12/20/2022 8:15 AM 12/21/2022 Naheed Fernandez RN 12/19/2022 7:30 AM 12/19/2022 Naheed Fernandez RN 12/18/2022 10:11 AM 12/19/2022 Jessica Jaramillo RN 12/15/2022 10:02 AM 12/19/2022 Jan Rebollar APRN [facility] 12/14/2022 1:03 PM 12/19/2022 GRIS Baca CNP 12/14/2022 1:00 PM 12/21/2022 Jim Florian APRN [facility] 12/14/2022 5:47 AM Length of Stay (Days): 11 GMLOS: 5.9 [facility] 12-25-2022 Note [facility] Wound Care Progress Note Dayana Quiñones AGE: 82 y.o. GENDER: female : 1940 Subjective: HISTORY of PRESENT ILLNESS HPI Dayana Quiñones is a 82 y.o. female who presents for a wound follow up. HPI: Ms. Quiñones is a 82-year-old female seen in outpatient setting for surgical evaluation due to progressive shortness of breath with exertion. Patient with significant cardiac history: CAD ([place]-October 2018-NEGRO to LAD and LCx; November 2018-NEGRO to RCA), paroxysmal atrial fibrillation, HFrEF-30%, 2+ MR. Patient underwent CABG, MVR, left atrial appendage and ELA on 12/14/22. Wound Care consulted for right chest and left leg. Patient sitting up in bed side chair at time of visit- PAST MEDICAL HISTORY Past Medical History: Diagnosis Date Anxiety Atherosclerosis of coronary artery bypass graft of [place] heart without angina pectoris Chronic kidney disease GERD (gastroesophageal reflux disease) Hypertension Ischemic cardiomyopathy Mobitz type II atrioventricular block STEMI (ST elevation myocardial infarction) ([facility]) 11/16/2018 Stroke ([facility]) Vertigo PAST SURGICAL HISTORY Past Surgical History: Procedure Laterality Date BACK SURGERY fusion CARDIAC PACEMAKER PLACEMENT 08/02/2018 CORONARY STENT PLACEMENT 12/19/2018 total of 4 on different occasions FAMILY HISTORY Family History Problem Relation Name Age of Onset Heart disease Father SOCIAL HISTORY Social History Tobacco Use Smoking status: Former Years: 10.00 Types: Cigarettes Quit date: 1968 Years since quittin.6 Smokeless tobacco: Never Vaping Use Vaping Use: Never used Substance Use Topics Alcohol use: Never Drug use: Never ALLERGIES Allergies Allergen Reactions Morphine Other reaction(s): GI Upset, Vomiting vomiting MEDICATIONS No current facility-administered medications on file prior to encounter. Current Outpatient Medications on File Prior to Encounter Medication Sig Dispense Refill aspirin 81 MG EC tablet Take 81 mg by mouth in the morning. atorvastatin (Lipitor) 20 MG tablet Take 20 mg by mouth Nightly. carvedilol (Coreg) 12.5 MG tablet Take 1 tablet by mouth in the morning and 1 tablet in the evening. Take with meals. dapagliflozin (Farxiga) 10 MG Take 10 mg by mouth daily (with breakfast). difluprednate (Durezol) 0.05 % ophthalmic solution Administer 1 drop into the left eye every other day. furosemide (Lasix) 40 MG tablet Take 40 mg by mouth daily. omeprazole (PriLOSEC) [address] capsule Take 40 mg by mouth in the morning. sacubitril-valsartan (Entresto) 24-26 MG tablet Take 1 tablet by mouth in the morning and 1 tablet in the evening. timolol (Timoptic) 0.5 % ophthalmic solution Administer 1 drop into the left eye in the morning and 1 drop in the evening. apixaban (Eliquis) 5 MG tablet Take 5 mg by mouth 2 times daily. REVIEW OF SYSTEMS Pertinent items are noted in HPI. Objective: BP 114/50 (BP Location: Left arm, Patient Position: Sitting) Pulse 87 Temp 36.6 ?C (97.9 ?F) (Temporal) Resp 18 Ht 1.6 m (5' 3 ) Wt 77.4 kg (170 lb 10.2 oz) SpO2 98% PF 55 L/min BMI 30.23 kg/m? PHYSICAL EXAM General appearance: in no apparent distress, alert, and cooperative Skin: warm and dry Pulmonary: Normal effort, no respiratory distress, no cyanosis Right side of neck: small scabs present - no redness or drainage noted- periwound is fragile. Left calf: 5.0cm glued incision. No drainage. No openings. No s/s of infection LABS CBC: Lab Results Component Value Date WBC 10.8 (H) 12/24/2022 HGB 10.4 (L) 12/24/2022 HCT 31.0 (L) 12/24/2022 MCV 91.1 12/24/2022 PLT 236 12/24/2022 BMP: Lab Results Component Value Date NA 137 12/25/2022 K 5.2 (H) 12/25/2022 CL 99 12/25/2022 CO2 28 12/25/2022 BUN 42 (H) 12/25/2022 CREATININE 0.89 12/25/2022 PT/INR: No results found for: PROTIME, INR Prealbumin: No results found for: PREALBUMIN Albumin:No components found for: LABALBU Sed Rate:No results found for: SEDRATE Micro: No components found for: BC Assessment/Plan: Right side neck: Skin tear - Apply skin prep then leave LUZ daily and PRN Left calf: Surgical - Leave DENTAL SALES REPRESENTATIVE - monitor for any s/s of infection Nutritional support Wound Care to follow Recommend to follow up at [facility] wound care center after hospital discharge. Any questions or concerns please secure chat [facility] wound/ostomy . Thank you for the consult! I personally obtained the chang and critical portions of the history and physical exam. I reviewed the labs, imaging studies, and electronic medical record. I reviewed the chart documentation and discussed the patient with treatment team members. I have edited the note to reflect my clinical findings and my assessment and plan. Please note, the time of this note does not reflect the time I saw this patient today, but the time of this documentaton. Portions of (more content not included)... [facility] 12-25-2022 Note Cardiothoracic Surge ry/[facility] Progress Note PATIENT NAME: Dayana Quiñones DATE: 12/25/22 HPI: 82-year-old female seen in outpatient setting for surgical evaluation due to progressive shortness of breath with exertion. Patient with significant cardiac history: CAD (RI-October 2018-NEGRO to LAD and LCx; November 2018-NEGRO to RCA), paroxysmal atrial fibrillation, HFrEF-30%, 2+ MR, Surgery was discussed and patient consented to intervention. Surgery/Procedure: 12/14/22: CABGx2 (PEDRAZA LAD, SVG to OM1) MVRepair (28 ring) LAAL with atriclip with Dr. Chou Interval History: 12/25/22, POD# 11: Afebrile, paced rhythm, BP on low side but stable, on RA. Sitting up in chair this AM, no acute issues overnight. No complaints. Pain tolerable. Wants to get Dobhoff out. Review of Systems Constitutional: Positive for fatigue. Negative for chills, diaphoresis and fever. Respiratory: Negative for cough, shortness of breath and wheezing. Cardiovascular: Negative for chest pain, palpitations and leg swelling. Gastrointestinal: Negative for abdominal distention and abdominal pain. Neurological: Negative for dizziness, syncope and light-headedness. Objective: Last BM Date: 12/23/22 Vitals: BP: 92/53, MAP (mmHg): 66, BP Method: Automatic Heart Rate: 72 Resp: 16 Temp: 36.8 ?C (98.2 ?F), Temp Source: Temporal BMI (Calculated): 30.23 BMP: Recent Labs 12/23/22 0037 12/23/22 0549 12/24/22 0009 NA 141 141 137 K 4.2 4.0 4.7 CL 105 105 101 CO2 28 27 26 BUN 51* 50* 54* CREATININE 0.87 0.86 1.09* CALCIUM 8.3* 8.3* 8.8 MG 1.9 -- 2.0 CBC: Recent Labs 12/23/22 0037 12/24/22 0009 WBC 12.1* 10.8* HGB 9.9* 10.4* HCT 29.8* 31.0* PLT 206 236 MCV 90.6 91.1 RDW 15.8* 16.0* INR: No results for input(s): INR in the last 72 hours. Physical Exam Vitals reviewed. Constitutional: General: She is not in acute distress. Appearance: She is not ill-appearing or diaphoretic. HENT: Nose: Comments: Dobhoff in place. Cardiovascular: Rate and Rhythm: Normal rate. Comments: Paced. Pulmonary: Effort: Pulmonary effort is normal. Breath sounds: No wheezing, rhonchi or rales. Abdominal: General: There is no distension. Palpations: Abdomen is soft. Skin: General: Skin is warm and dry. Capillary Refill: Capillary refill takes less than 2 seconds. Findings: Bruising present. Comments: MSI well approximated. No redness, warmth or drainage noted. Neurological: General: No focal deficit present. Mental Status: She is alert and oriented to person, place, and time. Psychiatric: Mood and Affect: Mood normal. Behavior: Behavior normal. Thought Content: Thought content normal. Judgment: Judgment normal. 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 -Dobhoff currently in place. -Re-assess today, hope to advance diet. -Follow free water protocol. Dietary providing recs for TF. Re-check BMP today. -Creat 1.09 on last check. -Hold lasix for now, possibly dry. Heart Failure following. Continue aspirin, statin and BB. Entresto, Farxiga and aldactone. Eliquis for atrial fibrillation. PT/OT: 12/20- IPR Pulmonary hygiene: IS and Acapella GI prophy: IV protonix DVT prophy:TEDs, SCDs, and Patient on OAC/NOAC Disposition: Review Speech Recs today, DC in a couple days? Central Line: []Yes [x] No Arterial Line: []Yes [x] No Colón: []Yes [x] No Restraints: []Yes [x] No Patient discussed and plan of day developed from multidisciplinary rounds between Cardiothoracic Surgery (Cardiothoracic Surgeon, JACEY) and Critical Care Attending Cardiac Core Medications: ASA, Statin, BB, and Entresto EF: 30% (12/18/22) Blood Conservation: Transfused post-op. Batching Operator: Dr. Brumfield [facility] 12-24-2022 Note Cardiothoracic Surge ry/[facility] Progress Note PATIENT NAME: Dayana Quiñones DATE: 12/24/22 HPI: 82-year-old female seen in outpatient setting for surgical evaluation due to progressive shortness of breath with exertion. Patient with significant cardiac history: CAD (RI-October 2018-NEGRO to LAD and LCx; November 2018-NEGRO to RCA), paroxysmal atrial fibrillation, HFrEF-30%, 2+ MR, Surgery was discussed and patient consented to intervention. Surgery/Procedure: 12/14/22: CABGx2 (PEDRAZA LAD, SVG to OM1) MVRepair (28 ring) LAAL with atriclip with Dr. Chou Interval History: 12/24/22, POD# 10 - no changes overnight VSS, pain well controlled. Slight TRINI Review of Systems Constitutional: Positive for activity change, appetite change and fatigue. Negative for diaphoresis and fever. Respiratory: Positive for shortness of breath. Negative for cough and wheezing. Cardiovascular: Negative for chest pain, palpitations and leg swelling. Gastrointestinal: Negative for abdominal distention, constipation, diarrhea, nausea and vomiting. Skin: Negative for color change, pallor and rash. Objective: Last BM Date: 12/23/22 Vitals: BP: (!) 120/49, MAP (mmHg): 70, BP Method: Automatic Heart Rate: 71 Resp: 20 Temp: 36.4 ?C (97.6 ?F), Temp Source: Temporal BMI (Calculated): 29.34 BMP: Recent Labs 12/22/22 0335 12/23/22 0037 12/23/22 0549 12/24/22 0009 NA 146* 141 141 137 K 3.8 4.2 4.0 4.7 CL 105 105 105 101 CO2 27 28 27 26 BUN 52* 51* 50* 54* CREATININE 0.81 0.87 0.86 1.09* CALCIUM 8.9 8.3* 8.3* 8.8 MG 2.2 1.9 -- 2.0 CBC: Recent Labs 12/22/225 12/23/22 0037 12/24/22 0009 WBC 14.4* 12.1* 10.8* HGB 11.1* 9.9* 10.4* HCT 34.2* 29.8* 31.0* PLT 202 206 236 MCV 91.7 90.6 91.1 RDW 15.7* 15.8* 16.0* INR: No results for input(s): INR in the last 72 hours. Physical Exam Constitutional: Interventions: Nasal cannula in place. Cardiovascular: Rate and Rhythm: Normal rate and regular rhythm. Pulses: Dorsalis pedis pulses are 2+ on the right side and 2+ on the left side. Heart sounds: Normal heart sounds. No murmur heard. No friction rub. Comments: PPM Pulmonary: Effort: Pulmonary effort is normal. Breath sounds: Decreased breath sounds present. No wheezing or rhonchi. Comments: SOB with activity Musculoskeletal: Right lower leg: No edema. Left lower leg: No edema. Skin: General: Skin is warm and dry. Capillary Refill: Capillary refill takes less than 2 seconds. Coloration: Skin is pale. Findings: Bruising and ecchymosis present. Comments: Surgical Incisions: well approximate; clean dry with no drainage noted. Surrounding skin no redness, warmth, or signs of infection noted. Neurological: Mental Status: She is alert. Psychiatric: Behavior: Behavior is cooperative. 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 ([facility]) Hx Stroke Paroxsymal Afib/mobitz type II AV block Anxiety Dysphagia Post operative Pulm Management: Normal Post-operative Course Acute blood loss anemia/consumptive thrombocytopenia Plan: Patient Status: Telemetry Lab checks DC'd Continue supportive care dispo to facility this week Medications as ordered ASA & statin, metoprolol Eliquis for Afib HF consulted - Low dose Entresto - Lasix 40mg PO daily - Farxiga 10mg daily & Aldactone 25mg - will see sunday TF per dietary recs: Glucerna 1.5 @ goal rate 35 ml/hr Insulin per Endo AIR POLLUTION INSPECTOR following - NPO, with dobbhoff TF - reviewed CT appears to be a chronic aspiration PT/OT: 12/20- IPR Pulmonary hygiene: IS and Acapella GI prophy: IV protonix DVT prophy:TEDs, SCDs, and Patient on OAC/NOAC Disposition: TBD Central Line: []Yes [x] No Arterial Line: []Yes [x] No Colón: []Yes [x] No Restraints: []Yes [x] No Patient discussed and plan of day developed from multidisciplinary rounds between Cardiothoracic Surgery (Cardiothoracic Surgeon, JACEY) and Critical Care Attending Cardiac Core Medications: ASA, Statin, BB, and Entresto EF: 30% 11/22/22 Blood Conservation: multiple units postop Batching Operator: Dr. Brumfield [facility] 12-22-2022 Note Care Management Prog ress Note Patient remains on HLU s/p MV repair and CABG x 2 POD # 8. VSS, on RA, V-paced on tele, titrate BB, heart failure signed off, MBSS completed-speech to complete a soft and bite sized with nectar liquids training meal, and PT recommending IPR. Patient and family agreeable to [facility], anticipate ready early next week. Discharge Milestones and Delays Expected Date/Time: 12/25/[address] discharge order Complete med reconciliation Case mgmt discharge readiness Clinical Stability Diagnsotic Workup Expected Discharge History Expected Date/Time Set By Reviewed At 12/25/2022 Jessica Jaramillo RN 12/22/2022 9:41 AM 12/25/2022 Jessica Jaramillo RN 12/21/2022 10:37 AM 12/22/2022 Naheed Fernandez RN 12/20/2022 8:15 AM IPR choice pending 12/22/2022 Naheed Fernandez RN 12/20/2022 8:15 AM 12/21/2022 Naheed Fernandez RN 12/19/2022 7:30 AM 12/19/2022 Naheed Fernandez RN 12/18/2022 10:11 AM 12/19/2022 Jessica Jaramillo RN 12/15/2022 10:02 AM 12/19/2022 Jan Rebollar APRN - [facility] 12/14/2022 1:03 PM 12/19/2022 Jan Rebollar APRN - [facility] 12/14/2022 1:00 PM 12/21/2022 Jim Florian APRN - SHELLFISH PROCESSING MACHINE TENDER 12/14/2022 5:47 AM Length of Stay (Days): 8 GMLOS: 5.9 [facility] 12-22-2022 Note SPEECH SERVICE PARTS COORDINATOR OLOGY MODIFIED BARIUM SWALLOW STUDY Patient Name: Dayana Quiñones : 1940 Today's Date: 12/22/2022 Visit [facility] ADMISSION DATE: 12/14/2022 ADMITTING DIAGNOSIS: has CAD in [place] artery on their problem list. General Information Radiologist: Dada Date of Onset: 12/14/2022 Date of Prior Study: 12/17/2022 Impression Mild-moderate oral and moderate pharyngeal dysphagia with decreased lingual strength & coordination, decreased airway protection, and reduced pharyngeal clearance resulting in aspiration during the swallow on presented bolus as well as residue. Patient inconsistently responded to aspiration with a weak, ineffective cough. Recommend NPO with AIR POLLUTION INSPECTOR to instruct patient on Free Water Protocol with ice chips and water via teaspoon with double swallow and intermittent cough and re-swallow. Type of Study: Repeat MBS Current Diet Solid Consistency: NPO Current Diet Liquid Consistency: NPO, Other (comments) (Free water protocol) Patient complaints: thirsty Referring Diagnosis: dysphagia s/p CABG & MVR Consistencies Administered: Reg solid, Dysphagia Pureed (Dysphagia I), Farnham cup, Farnham teaspoon, Thin cup, Thin teaspoon (mixed with nectar) Procedure Method: Cup, Feed by clinician, Self feed, Spoon Patient Position: Lateral Patient was referred for a to assess the efficiency of her swallow function, rule out aspiration and make recommendations regarding safe dietary consistencies, effective compensatory strategies, and safe eating environment. Past Medical History: Diagnosis Date Anxiety Atherosclerosis of coronary artery bypass graft of [place] heart without angina pectoris Chronic kidney disease GERD (gastroesophageal reflux disease) Hypertension Ischemic cardiomyopathy Mobitz type II atrioventricular block STEMI (ST elevation myocardial infarction) (HCC) 11/16/2018 Stroke ([facility]) Vertigo Past Surgical History: Procedure Laterality Date BACK SURGERY fusion CARDIAC PACEMAKER PLACEMENT 08/02/2018 CORONARY STENT PLACEMENT 12/19/2018 total of 4 on different occasions Subjective General Chart Reviewed: Yes Subjective Subjective: Alert & cooperative with Dobhoff in place & no order to remove as well as no notes from recent AIR POLLUTION INSPECTOR indicating need to remove so proceeded with MBSS Behavior/Cognition Behavior/Cognition: Alert, Cooperative, Pleasant mood Assessment Oral Preparation / Oral Phase: Oral Preparation / Oral Phase Oral Phase: Impaired Oral Phase Oral Phase: Pt with mildly prolonged mastication & oral prep transit with mild-mod oral residuals with solids. Pt also with decreased oral control with thin & nectar with premature spillage to the pyriforms consistently & occasionally into laryngeal vestibule with thin. Pharyngeal Phase: Pharyngeal Phase Pharyngeal Phase: Impaired Pharyngeal Phase Pharyngeal: Pt with slightly delayed airway closure with liquidsresulting in penetration before or during the swallow with thin & during the swallow with nectar. Pt with trace to min laryngeal residuals with thin that x1 results in vocal cord penetration. Pt with a delayed cough response to same while off fluoro, so can't exclude possible trace aspiration with thin. The cough appeared to be effective as airway was clear upon view. Pt also with inconsistent trace upper epiglottic staining remaining with nectar but the pt was able to clear with cued cough or at times with second swallow. The pt did x1 have trace penetration after the swallow with nectar but only on epiglottic tip & again was able to clear. Pt is noted to have an epiglottis that curls towards her tongue base which appears to contribute to ease of penetration along with decreased oral control. Pt also with reduced tongue base retraction, reduced pharyngeal stripping & min decreased epiglottic inversion. Pt with trace to mod tongue base/valleculae residuals (greater with dry cookie), trace to mod pharyngeal wall residualss (greatest with larger bite of puree) & trace-mild pyriform residuals. Pt did have improved pharyngeal clearance & airway closure with effortful swallows with hard effortful 2nd swallows but also needed a liquid wash with dry cookie. A chin tuck was also attempted but was not beneficial & appeared to increase penetration with nectar. Compensatory Swallowing Strategies Attempted: Alternate solids and liquids, Effortful swallow, Small bites/sips, Swallow 2 times per bite/sip, No straws, Upright as possible for all oral intake, Remain upright for 30-45 minutes after meals, Other (comments) (Hard cough every few bolus) Cervical Esophageal Phase: Upper Esophageal Screen Esophageal Screen: Impaired Upper Esophageal Screen Upper Esophageal Screen: Noted backflow at end of study with repeated hard coughing, concern for decreased esophageal clearance as now upper stasis noted prior to event. may need further G (more content not included)... [facility] 12-21-2022 Note Care Management Prog ress Note Patient remains on HLU s/p MV repair and CABG x 2 POD # 7. VSS, on RA, V-paced, BB adjusted, heart failure following, speech following-continuing TF's-will need repeat MBSS tomorrow, and PT recommending IPR. Patient and family agreeable to [facility], anticipate next week. Discharge Milestones and Delays Expected Date/Time: 12/25/[address] discharge order Complete med reconciliation Case mgmt discharge readiness Clinical Stability Diagnsotic Workup Expected Discharge History Expected Date/Time Set By Reviewed At 12/25/2022 Jessica Jaramillo RN 12/21/2022 10:37 AM 12/22/2022 Naheed Fernandez RN 12/20/2022 8:15 AM IPR choice pending 12/22/2022 Naheed Fernandez RN 12/20/2022 8:15 AM 12/21/2022 Naheed Fernandez RN 12/19/2022 7:30 AM 12/19/2022 Naheed Fernandez RN 12/18/2022 10:11 AM 12/19/2022 Jessica Jaramillo RN 12/15/2022 10:02 AM 12/19/2022 Jan Rebollar APRN SHELLFISH PROCESSING MACHINE TENDER 12/14/2022 1:03 PM 12/19/2022 Jan Rebollar APRN - SHELLFISH PROCESSING MACHINE TENDER 12/14/2022 1:00 PM 12/21/2022 Jim Florian ADDICTION MEDICINE PHYSICIAN - [facility] 12/14/2022 5:47 AM Length of Stay (Days): 7 GMLOS: 5.9 [facility] 12-21-2022 Note [facility] Cardiology /Electrophysiology Progress Note HPI / Interval History: Dayana Quiñones is a 82 y.o. female with hx of pAF, CAD ([place]-October 2018-NEGRO to LAD and LCx; November 2018-NEGRO to RCA), ICM/HFrEF presenting for CABG. She underwent CABG on 12/14/22: CABGx2 (PEDRAZA LAD, SVG to OM1) MV Repair (28 ring) LAAL with atriclip. She reports feeling more SOB today when she was transferred from bed to chair. Denies dizziness overnight. Assessment/Plan HFrEF (30%) ICM She appears more SOB this morning. JVP slightly increased to [id number]. Decreased air entry on the left lung - Continue low dose entresto BID tonight with parameters. - Switch to Toprol 25mg daily - Will recommend one IV dose of lasix 40mg in the afternoon given slightly increase JVP. - Continue lasix 40mg daily and farxiga 10mg daily. Expect a slight creatinine rise with due to Farxiga tomorrow. - Continue Aldactone 25mg daily - Concern about left pleural effusion. Discussed with primary team for consider of US and possible thoracentesis if needed. - Will sign off, call with any questions. pAF S/p dual chamber PPM Paced rhythm. S/p JES appendage atria clip. - On Eliquis 5mg BID - On BB as above. CAD Moderate to severe MR S/p CABG, MV repair with ring - on ASA and crestor 40mg daily Medications: acetaminophen, 1,000 mg, Oral, q8h apixaban, 5 mg, Oral, BID aspirin, 81 mg, Oral, Daily dapagliflozin, 10 mg, Oral, Daily difluprednate, 1 drop, Left Eye, Every other day erythromycin, , Left Eye, Nightly furosemide, 40 mg, Oral, Daily metoprolol tartrate, 12.5 mg, Oral, BID pantoprazole (ProtoNix) 40 mg in sodium chloride (PF) 0.9 % 10 mL injection, 40 mg, IntraVENous, qAM AC polyethylene glycol (PEG) 3350, 17 g, Oral, Daily potassium chloride, 20 mEq, Oral, BID rosuvastatin, 40 mg, Oral, Daily sacubitril-valsartan, 1 tablet, Oral, BID senna-docusate sodium, 2 tablet, Oral, Nightly sodium chloride 0.9%, 10 mL, IntraVENous, 2 times per day spironolactone, 25 mg, Oral, Daily timolol, 1 drop, Left Eye, BID Infusion Medications: Physical Examination: Vitals: 12/21/22 0200 12/21/22 0300 12/21/22 0400 12/21/22 0600 BP: 108/51 BP Location: Left arm Patient Position: Lying Pulse: 70 78 70 Resp: 14 Temp: 36.8 ?C (98.2 ?F) TempSrc: Temporal SpO2: 97% 98% 96% Weight: 168 lb 3.4 oz (76.3 kg) Height: PF: Intake/Output Summary (Last 24 hours) at 12/21/2022 0811 Last data filed at 12/20/20221999 Gross per 24 hour Intake 959 ml Output -- Net 959 ml Wt Readings from Last 3 Encounters: 12/21/22 168 lb 3.4 oz (76.3 kg) 12/08/22 169 lb 9.6 oz (76.9 kg) 11/29/22 171 lb (77.6 kg) Physical Exam Constitutional: General: She is not in acute distress. HENT: Head: Normocephalic and atraumatic. Right Ear: External ear normal. Left Ear: External ear normal. Mouth/Throat: Mouth: Mucous membranes are moist. Eyes: General: No scleral icterus. Conjunctiva/sclera: Conjunctivae normal. Neck: Thyroid: No thyromegaly. Vascular: JVD present. Comments: JVP 11-12cm h20 Cardiovascular: Rate and Rhythm: Regular rhythm. Chest Wall: PMI is not displaced. Heart sounds: No murmur heard. No S3 or S4 sounds. Pulmonary: Effort: Pulmonary effort is normal. Breath sounds: Normal breath sounds. No wheezing or rales. Abdominal: General: Bowel sounds are normal. There is no distension. Palpations: Abdomen is soft. Tenderness: There is no abdominal tenderness. Musculoskeletal: General: No swelling. Cervical back: Neck supple. Right lower leg: No edema. Left lower leg: No edema. Skin: General: Skin is warm and dry. Findings: No rash. Nails: There is no clubbing. Neurological: General: No focal deficit present. Mental Status: She is alert and oriented to person, place, and time. Gait: Gait is intact. Psychiatric: Mood and Affect: Mood normal. Thought Content: Thought content normal. Laboratory Tests: Recent Labs 12/19/22 0152 12/19/22 0421 12/20/22 0213 12/20/22 1412 12/21/22 0030 12/21/22 0445 NA 143 -- 142 -- 145 -- K 3.4* 4.6 3.2* 3.4* 2.9* 4.2 CL 101 -- 102 -- 111* -- CO2 28 -- 27 -- 25 -- BUN 48* -- 56* -- 53* -- CREATININE 1.12* -- 1.12* -- 0.89 -- Recent Labs 12/19/22 0152 12/20/22 0213 12/21/22 0030 WBC 13.3* 14.9* 11.3* HGB 10.1* 10.7* 9.5* HCT 30.2* 32.3* 28.7* MCV 90.2 89.7 89.7 PLT 75* 120* 127* No results for input(s): CKTOTAL, CKMB, CKMBINDEX, TROPONINI in the last 72 hours. No results for input(s): BNP in the last 72 hours. No results for input(s): TRIG, HDL, LDLCALC, CHOL in the last 72 hours. No results found for: LDLCHOLESTER No results found for: TSH EF BP Date Value Ref Range Status 12/18/2022 39 (A) 55 - 100 % Final 12/14/22 TRANSTHORACIC ECHOCARDIOGRAM (TTE) LIMITED (CONTRAST/BUBBLE/3D PRN) 12/18/2022 3:27 PM (Final) Interpretation Summary Left Ventricl (more content not included)... [facility] 12-20-2022 Note Care Management Prog ress Note Chart reviewed. Pt remains on HLU s/p CABGx2. AIR POLLUTION INSPECTOR following, recommending NPO, dobhoff in place, repeat MBSS at end of week. Ongoing medication adjustments. Discharge Plan: PT recommending IPR, pt wants daughters to decide facility, spoke with daughter Juani over the phone, Radha and Juani would like referral to [facility]. Referral placed in [facility], liaison notified. [facility] will continue to follow with SW. Discharge Milestones and Delays Expected Date/Time: 12/22/[address] discharge order Complete med reconciliation Case mgmt discharge readiness Clinical Stability Diagnsotic Workup Expected Discharge History Expected Date/Time Set By Reviewed At 12/22/2022 Naheed Fernandez RN 12/20/2022 8:15 AM IPR choice pending 12/22/2022 Naheed Fernandez RN 12/20/2022 8:15 AM 12/21/2022 Naheed Fernandez RN 12/19/2022 7:30 AM 12/19/2022 Naheed Fernandez RN 12/18/2022 10:11 AM 12/19/2022 Jessica Jaramillo RN 12/15/2022 10:02 AM 12/19/2022 Jan Rebollar, ADDICTION MEDICINE PHYSICIAN - SHELLFISH PROCESSING MACHINE TENDER 12/14/2022 1:03 PM 12/19/2022 Jan Rebollar APRN - SHELLFISH PROCESSING MACHINE TENDER 12/14/2022 1:00 PM 12/21/2022 Jim Florian APRN - [facility] 12/14/2022 5:47 AM Length of Stay (Days): 6 GMLOS: 5.9 [facility] 12-20-2022 Consult note Associated Order (s): IP CONSULT TO CARDIOLOGY [facility] [place] [facility] Cardiology /Electrophysiology Consult Note Reason for Consult/Chief Complaint: GDMT and HF optimization Referring provider: Dr. Chou Established scrap baller: Dr. Dunn ([facility]) History of Present Illness: Dayana Quiñones is a 82 y.o. female with hx of pAF, CAD ([place]-October 2018-NEGRO to LAD and LCx; November 2018-NEGRO to RCA), ICM/HFrEF presenting for CABG. She underwent CABG on 12/14/22: CABGx2 (PEDRAZA LAD, SVG to OM1) MV Repair (28 ring) LAAL with atriclip. She reports feeling well today. Denies any orthopnea or dyspnea. Reports she wants the NG tube out as soon as possible. She started to eat pureed food today. Assessment/Plan HFrEF (30%) ICM She is euvolemic on exam. Decreased air entry on the left lung - Started low dose entresto BID tonight with parameters. - Agree with lopressor 12.5mg BID for now and switching to Toprol at discharge. - Stop IV lasix. Will consider switching back to oral lasix 40mg daily tomorrow and restarting Farxiga 10mg daily. - Not on aldactone at home. Will start aldactone 25mg daily tomorrow. - Recommend US to assess for possible need for left thoracentesis. pAF S/p dual chamber PPM Paced rhythm. S/p JES appendage atria clip. - On Eliquis 5mg BID - On BB as above. CAD Moderate to severe MR S/p CABG, MV repair with ring - on ASA and crestor 40mg daily Medications: acetaminophen, 1,000 mg, Oral, q8h apixaban, 5 mg, Oral, BID aspirin, 81 mg, Oral, Daily difluprednate, 1 drop, Left Eye, Every other day erythromycin, , Left Eye, Nightly furosemide, 40 mg, IntraVENous, BID metoprolol tartrate, 12.5 mg, Oral, BID pantoprazole (ProtoNix) 40 mg in sodium chloride (PF) 0.9 % 10 mL injection, 40 mg, IntraVENous, qAM AC polyethylene glycol (PEG) 3350, 17 g, Oral, Daily potassium chloride, 20 mEq, Oral, BID rosuvastatin, 40 mg, Oral, Daily senna-docusate sodium, 2 tablet, Oral, Nightly sodium chloride 0.9%, 10 mL, IntraVENous, 2 times per day timolol, 1 drop, Left Eye, BID Infusion Medications: Physical Examination: Vitals: 12/20/22 0000 12/20/22 0400 12/20/22 0600 12/20/22 0800 BP: 106/55 136/57 117/51 BP Location: Left arm Left arm Left arm Patient Position: Lying Lying Sitting Pulse: 70 72 70 Resp: 18 20 20 Temp: 36.2 C (97.2 F) 36.2 C (97.1 F) 36.2 C (97.1 F) TempSrc: Temporal Temporal Temporal SpO2: 94% 95% 95% Weight: 168 lb 14 oz (76.6 kg) Height: PF: Intake/Output Summary (Last 24 hours) at 12/20/2022 1213 Last data filed at 12/20/2022 0800 Gross per 24 hour Intake 325 ml Output 902 ml Net -577 ml Wt Readings from Last 3 Encounters: 12/20/22 168 lb 14 oz (76.6 kg) 12/08/22 169 lb 9.6 oz (76.9 kg) 11/29/22 171 lb (77.6 kg) Physical Exam Constitutional: General: She is not in acute distress. HENT: Head: Normocephalic and atraumatic. Right Ear: External ear normal. Left Ear: External ear normal. Mouth/Throat: Mouth: Mucous membranes are moist. Eyes: General: No scleral icterus. Conjunctiva/sclera: Conjunctivae normal. Neck: Thyroid: No thyromegaly. Vascular: No JVD. Cardiovascular: Rate and Rhythm: Regular rhythm. Chest Wall: PMI is not displaced. Heart sounds: No murmur heard. No S3 or S4 sounds. Pulmonary: Effort: Pulmonary effort is normal. Breath sounds: Normal breath sounds. No wheezing or rales. Abdominal: General: Bowel sounds are normal. There is no distension. Palpations: Abdomen is soft. Tenderness: There is no abdominal tenderness. Musculoskeletal: General: No swelling. Cervical back: Neck supple. Right lower leg: No edema. Left lower leg: No edema. Skin: General: Skin is warm and dry. Findings: No rash. Nails: There is no clubbing. Neurological: General: No focal deficit present. Mental Status: She is alert and oriented to person, place, and time. Gait: Gait is intact. Psychiatric: Mood and Affect: Mood normal. Thought Content: Thought content normal. Laboratory Tests: Recent Labs 12/18/2230512/19/2215112/19/22 04212/20/22212 NA 144 143 -- 142 K 4.0 3.4* 4.6 3.2* CL 105 101 -- 102 CO2 25 28 -- 27 BUN 48* 48* -- 56* CREATININE 1.27* 1.12* -- 1.12* EGFR 42.0* 48.9* -- 48.9* No results for input(s): CKTOTAL, CKMB, CKMBINDEX, TROPONINI in the last 72 hours. Recent Labs 12/18/2230512/19/2215112/20/22212 WBC 13.0* 13.3* 14.9* HGB 9.3* 10.1* 10.7* HCT 28.4* 30.2* 32.3* MCV 90.2 90.2 89.7 PLT 58* 75* 120* Lab Results Component Value Date HGBA1C 5.6 12/08/2022 No results found for: TSH No results found for: CHOL No results found for: HDL No results found for: LDLCALC No results found for: TRIG No results found for: CHOLHDL No results found for: LDLCHOLESTER No results for input(s): BNP in the last 72 hours. No results for input(s): INR in the last 72 hours. No results found for: IRON, TIBC, FERRITIN Radiology: CXR: personally reviewed: Cardiac Tests Personally Reviewed: Last EKG 12/14/22 ECG 12-LEAD 12/15/2022 8:49 AM (Final) Impression Atrial-ventricular dual-paced rhythm Electronically Signed On 12-15-2022 8:49:55 EDT by Matt Booker Signed by: Matt Booker MD on 12/15/2022 8:49 AM Telemetry findings: AV paced Reports reviewed: Last Echo 12/14/22 TRANSTHORACIC ECHOCARDIOGRAM (TTE) LIMITED (CONTRAST/BUBBLE/3D PRN) 12/18/2022 3:27 PM (Final) Interpretation Summary Left Ventricle: Not well visualized. Left ventricle is mildly dilated. Severely reduced left ventricular systolic function. The EF by visual approximation is 30%. Mild global hypokinesis present. Septal motion is consistent with bundle branch block. Right Ventricle: Normal systolic function. Mitral Valve: Annuloplasty ring repaired valve. Tricuspid Valve: RVSP is 35 mmHg. Left Atrium: Left atrium is moderately dilated. LA Vol Index A/L is 46 mL/m2. No significant valvular abnormalities. Technically difficult study. Signed by: Joseph Balderrama MD on 12/18/2022 3:27 PM Last Cath No results found for this or any previous visit. Last Stress Test No results found for this or any previous visit. Last EP study No results found for this or any previous visit. EF BP Date Value Ref Range Status 12/18/2022 39 (A) 55 - 100 % Final Dulce Valladares MD DATE of SERVICE: 12/20/2022 I, Dr. Brooks, saw and evaluated the patient. I personally obtained the chang and critical portions of the history and physical exam. I reviewed the chart, the fellow's documentation, and discussed the patient with the fellow. I agree with the fellow's medical decision making and have edited the note to reflect my clinical findings and my assessment and plan. Associated Order(s): IP WOUND CARE NURSE CONSULT TO EVAL Images from the original note were not included. [facility] Wound Care CONSULT Note Dayana Quiñones AGE: 82 y.o. GENDER: female : 1940 Subjective: HISTORY of PRESENT ILLNESS HPI Dayana Quiñones is a 82 y.o. female who presents for a wound consult. HPI: Ms. Quiñones is a 82-year-old female seen in outpatient setting for surgical evaluation due to progressive shortness of breath with exertion. Patient with significant cardiac history: CAD ([place]-October 2018-NEGRO to LAD and LCx; November 2018-NEGRO to RCA), paroxysmal atrial fibrillation, HFrEF-30%, 2+ MR. Patient underwent CABG, MVR, left atrial appendage and ELA on 12/14/22. Wound Care consulted for right chest and left leg. PAST MEDICAL HISTORY Past Medical History: Diagnosis Date Anxiety Atherosclerosis of coronary artery bypass graft of [place] heart without angina pectoris Chronic kidney disease GERD (gastroesophageal reflux disease) Hypertension Ischemic cardiomyopathy Mobitz type II atrioventricular block STEMI (ST elevation myocardial infarction) ([facility]) 11/16/2018 Stroke ([facility]) Vertigo PAST SURGICAL HISTORY Past Surgical History: Procedure Laterality Date BACK SURGERY fusion CARDIAC PACEMAKER PLACEMENT 08/02/2018 CORONARY STENT PLACEMENT 12/19/2018 total of 4 on different occasions FAMILY HISTORY Family History Problem Relation Name Age of Onset Heart disease Father SOCIAL HISTORY Social History Tobacco Use Smoking status: Former Years: 10.00 Types: Cigarettes Quit date: 1967 Years since quittin.6 Smokeless tobacco: Never Vaping Use Vaping Use: Never used Substance Use Topics Alcohol use: Never Drug use: Never ALLERGIES Allergies Allergen Reactions Morphine Other reaction(s): GI Upset, Vomiting vomiting MEDICATIONS No current facility-administered medications on file prior to encounter. Current Outpatient Medications on File Prior to Encounter Medication Sig Dispense Refill aspirin 81 MG EC tablet Take 81 mg by mouth in the morning. atorvastatin (Lipitor) 20 MG tablet Take 20 mg by mouth Nightly. carvedilol (Coreg) 12.5 MG tablet Take 1 tablet by mouth in the morning and 1 tablet in the evening. Take with meals. dapagliflozin (Farxiga) 10 MG Take 10 mg by mouth daily (with breakfast). difluprednate (Durezol) 0.05 % ophthalmic solution Administer 1 drop into the left eye every other day. furosemide (Lasix) 40 MG tablet Take 40 mg by mouth daily. omeprazole (PriLOSEC) [address] capsule Take 40 mg by mouth in the morning. sacubitril-valsartan (Entresto) 24-26 MG tablet Take 1 tablet by mouth in the morning and 1 tablet in the evening. timolol (Timoptic) 0.5 % ophthalmic solution Administer 1 drop into the left eye in the morning and 1 drop in the evening. apixaban (Eliquis) 5 MG tablet Take 5 mg by mouth 2 times daily. REVIEW OF SYSTEMS Pertinent items are noted in HPI. Objective: BP 117/51 (BP Location: Left arm, Patient Position: Sitting) Pulse 70 Temp 36.2 C (97.1 F) (Temporal) Resp 20 Ht 1.6 m (5' 3 ) Wt 76.6 kg (168 lb 14 oz) SpO2 95% PF 55 L/min BMI 29.91 kg/m PHYSICAL EXAM General appearance: in no apparent distress, alert, and cooperative Skin: warm and dry Pulmonary: Normal effort, no respiratory distress, no cyanosis Right side of neck: No openings to area. No drainage. Healing skin tear. Left calf: 5.0cm glued incision. No drainage. No openings. No s/s of infection LABS CBC: Lab Results Component Value Date WBC 14.9 (H) 12/20/2022 HGB 10.7 (L) 12/20/2022 HCT 32.3 (L) 12/20/2022 MCV 89.7 12/20/2022 PLT 120 (L) 12/20/2022 BMP: Lab Results Component Value Date NA 142 12/20/2022 K 3.2 (L) 12/20/2022 CL 102 12/20/2022 CO2 27 12/20/2022 BUN 56 (H) 12/20/2022 CREATININE 1.12 (H) 12/20/2022 PT/INR: No results found for: PROTIME, INR Prealbumin: No results found for: PREALBUMIN Albumin:No components found for: LABALBU Sed Rate:No results found for: SEDRATE Micro: No components found for: BC Assessment/Plan: Right side neck: Skin tear - Apply skin prep then leave DENTAL SALES REPRESENTATIVE daily and PRN Left calf: Surgical - Leave DENTAL SALES REPRESENTATIVE - monitor for any s/s of infection Nutritional support Wound Care to follow Recommend to follow up at [facility] wound care center after hospital discharge. Any questions or concerns please secure chat [facility] wound/ostomy . Thank you for the consult! I personally obtained the chang and critical portions of the history and physical exam. I reviewed the labs, imaging studies, and electronic medical record. I reviewed the chart documentation and discussed the patient with treatment team members. I have edited the note to reflect my clinical findings and my assessment and plan. Please note, the time of this note does not reflect the time I saw this patient today, but the time of this documentaton. Portions of this note including HPI, ROS, impression/plan, and examination may have been copied forward from admission to today as to provide important historical information essential in contributing to medical decision making. Documentation has been reviewed and edited as necessary to support clinical decision making for today's visit and to reflect my own independent evaluation of this patient. Decision making for today's visit and to reflect my own independent evaluation of this patient. Associated Order(s): IP CONSULT TO ENDOCRINOLOGY Department of Internal Medicine Division of Endocrinology, Diabetes, & Metabolism Endocrinology Note Patient Name: Dayana Quiñones : 1940 AGE: 82 y.o. Room/Bed: T1-114/T1114 A Admission Date: 12/14/2022 Visit Date: 12/14/2022 Reason for Endocrine Consult: post op heart Provider/Team Requesting Consult: cts PCP: Amalia Avery MD Outpt Top Loader: No ASSESSMENT: Stress hyperglycemia Cad s/p cabgx2 Chf Htn PLAN: Cont on insulin gtt ICU goal <180 GMF goal <150 POCT ACHS Hypoglycemia per protocol Carb controlled diet ANTICIPATED ENDOCRINE HOME GOING RECOMMENDATIONS: Optimized for Discharge from Endocrine standpoint: No Home Going Endocrine Rx Recommendations-- tbd Outpt Follow Up-- pcp SUBJECTIVE/HPI: CHIEF COMPLAINT: No chief complaint on file. Cabgx2 No noted hx of diabetes- does seem to be on farxiga at home for heart failure Bgl below- 124 in room Resting in bed VSS Intubated sedated Insulin gtt off on exam PRBC running Pressors on and sedation Spoke to nursing and family in room Type of DM: na Onset of DM: na Home DM Medication Regimen: farxiga 10 daily- HF DM control (last A1c/glucose data): Lab Results Component Value Date HGBA1C 5.6 12/08/2022 Glucose Date/Time Value Ref Range Status 12/14/2022 01:04 PM 89 70 - 100 mg/dL Final Review of Systems All other systems reviewed and are negative. ROS negative except for those mentioned in HPI. OBJECTIVE: Vitals: 12/14/22 0558 12/14/22 0837 12/14/22 1304 BP: 126/73 (!) 83/19 BP Location: Left arm Patient Position: Lying Pulse: 70 66 Resp: 16 Temp: 36.4 C (97.6 F) TempSrc: Temporal Bladder SpO2: 95% 100% Weight: 169 lb (76.7 kg) 169 lb (76.7 kg) Height: 5' 3 (1.6 m) 5' 3 (1.6 m) Physical Exam Vitals and nursing note reviewed. Constitutional: Appearance: She is ill-appearing. She is not toxic-appearing. Interventions: She is sedated and intubated. HENT: Head: Normocephalic and atraumatic. Eyes: Conjunctiva/sclera: Conjunctivae normal. Cardiovascular: Rate and Rhythm: Normal rate. Pulmonary: Effort: Pulmonary effort is normal. She is intubated. Abdominal: Palpations: Abdomen is soft. Musculoskeletal: Cervical back: Normal range of motion. Skin: General: Skin is warm and dry. Comments: Intact incision 24 hour intake/output: Intake/Output Summary (Last 24 hours) at 12/14/2022 1411 Last data filed at 12/14/2022 1318 Gross per 24 hour Intake 2742.6 ml Output 1570 ml Net 1172.6 ml Diet: NPO diet Medications (as per EMR): HomeMeds: Current Outpatient Medications Medication Instructions acyclovir (ZOVIRAX) 800 mg, Oral, Daily apixaban (ELIQUIS) 5 mg, Oral, 2 times daily aspirin 81 mg, Oral, Daily atorvastatin (LIPITOR) 20 mg, Oral, Nightly bacitracin-polymyxin b (Polysporin) ointment Apply to affected area daily carvedilol (Coreg) 12.5 MG tablet 1 tablet, Oral, 2 times daily with meals dapagliflozin (FARXIGA) 10 mg, Oral, Daily with breakfast difluprednate (Durezol) 0.05 % ophthalmic solution 1 drop, Left Eye, Every other day ERYTHROMYCIN EX Apply externally, Ointement for eye furosemide (LASIX) 40 mg, Oral, Daily NON [facility] omeprazole (PRILOSEC) 40 mg, Oral, Daily sacubitril-valsartan (Entresto) 24-26 MG tablet 1 tablet, Oral, 2 times daily timolol (Timoptic) 0.5 % ophthalmic solution 1 drop, Left Eye, 2 times daily Scheduled Meds:acetaminophen, 1,000 mg, Oral, q8h albumin human, 25 g, IntraVENous, Once ceFAZolin, 2,000 mg, IntraVENous, q8h chlorhexidine, 15 mL, Mouth/Throat, BID mupirocin, , Nasal, BID [START ON 12/15/2022] pantoprazole, 40 mg, IntraVENous, Daily polyethylene glycol (PEG) 3350, 17 g, Oral, Daily senna-docusate sodium, 2 tablet, Oral, Nightly sodium chloride, 250 mL, IntraVENous, Once sodium chloride 0.9%, 10 mL, IntraVENous, 2 times per day sugammadex, 4 mg/kg, IntraVENous, Once Continuous Infusions:EPINEPHrine, 0.01-0.2 mcg/kg/min, Last Rate: 0.05 mcg/kg/min (12/14/22 1317) insulin regular, 1-50 Units/hr lactated ringers, 250 mL niCARdipine, 3-15 mg/hr nitroglycerin, 5-300 mcg/min norepinephrine, 0.01-0.2 mcg/kg/min propofol, 5-50 mcg/kg/min, Last Rate: 30 mcg/kg/min (12/14/22 1315) sodium chloride, 20 mL/hr, Last Rate: 20 mL/hr (12/14/22 1302) PRN Meds:PRN medications: albumin human, calcium gluconate, dextrose, dextrose, EPINEPHrine, glucagon (rDNA), glucose, HYDROmorphone OR HYDROmorphone, ipratropium-albuterol, lactated ringers, magnesium hydroxide, magnesium sulfate OR magnesium sulfate, niCARdipine, nitroglycerin, norepinephrine, ondansetron ODT OR ondansetron, oxyCODONE OR oxyCODONE, potassium chloride OR potassium chloride 20 mEq in sodium chloride 0.9 % 250 mL IVPB OR potassium chloride 40 mEq in sodium chloride 0.9 % 500 mL IVPB, [START ON 12/15/2022] potassium chloride CR, sodium chloride, sodium chloride 0.9% Diagnostic Workup: I reviewed pertinent Laboratory results, Radiographic results, and Other Clinical Notes at the time of today's encounter. Labs: No components found for: LABA1C No components found for: EAG Lab Results Component Value Date NA 140 12/14/2022 K 4.3 12/14/2022 CL 109 (H) 12/14/2022 CO2 19 (L) 12/14/2022 BUN 20 (H) 12/14/2022 CREATININE 1.18 (H) 12/14/2022 GLUCOSE 116 (H) 12/14/2022 CALCIUM 8.8 12/14/2022 No results found for: CHLPL, CHOL No results found for: TRIG No results found for: HDL No results found for: LDLCALC No results found for: VLDL No results found for: CHOLHDLRATIO No results found for: [id number] No results found for: TSH, L6JEUNS, H7HWFIJ, THYROIDAB Radiology reportsas per the Radiologist Radiology: ECG 12 lead Result Date: 12/14/2022 Atrial-ventricular dual-paced rhythm History/Other: Past Medical History: Past Medical History: Diagnosis Date Anxiety Atherosclerosis of coronary artery bypass graft of [place] heart without angina pectoris Chronic kidney disease GERD (gastroesophageal reflux disease) Hypertension Ischemic cardiomyopathy Mobitz type II atrioventricular block STEMI (ST elevation myocardial infarction) ([facility]) 11/16/2018 Stroke ([facility]) Vertigo Past Surgical History: Past Surgical History: Procedure Laterality Date BACK SURGERY fusion CARDIAC PACEMAKER PLACEMENT 08/02/2018 CORONARY STENT PLACEMENT 12/19/2018 total of 4 on different occasions Allergy(ies): Allergies Allergen Reactions Morphine Other reaction(s): GI Upset, Vomiting vomiting Family History: Family History Problem Relation Name Age of Onset Heart disease Father Social History: Social History Tobacco Use Smoking status: Former Years: 10.00 Types: Cigarettes Quit date: 1968 Years since quittin.6 Smokeless tobacco: Never Vaping Use Vaping Use: Never used Substance Use Topics Alcohol use: Never Drug use: Never Portions of the information within this encounter were entered using an electronic dictation system. Best attempts were made to edit/proofread the information prior to note completion. Despite the review of information, some errors may remain. If there are questions related to the information contained within the note please contact the signing physician directly. I spent 30 minutes with the pt which involved coordination of care, medical evaluation, review of records, and/or counseling of the pt regarding his/her condition/disease state/prognosis on the date of this note. Associated attestation - Ian Brand MD - 12/14/2022 3:55 PM EDT I have personally performed a face to face diagnostic evaluation on this patient. In addition, I have reviewed the resident's/DIGITAL EXPERIENCE MANAGER/SAP BASIS's care plan and agree with those findings I have performed a substantive portion of the the medical decision making. My findings are as follows: S/p CABG No hx of diabetes Not on diabetes meds Vitals: BP (!) 118/46 Pulse 60 Temp 36.2 C (97.2 F) Resp 16 Ht 5' 3 (1.6 m) Wt 169 lb (76.7 kg) SpO2 100% BMI 29.94 kg/m Constitutional: intubated Respiratory: No respiratory distress Cardiovascular System: No lower extremity edema A/P Stress hyperglycemia s/p CABG Continue insulin drip BG Q 1 hour per protocol Will switch insulin drip to sc insulin if needed in 24 to 48 hours. I spent 15 minutes with the pt which involved in coordination of care, medical evaluation, review of records, and/or counseling of the pt regarding his/her condition/disease state/prognosis on the date of this note. Old records including available PCP, ED notes and or other specialists notes are reviewed. LABs and/or imaging are reviewed as detailed in the resident's/DIGITAL EXPERIENCE MANAGER/SAP BASIS's note Images from the original note were not included. [facility]: Critical Care Consultation Note Date: 12/14/22 PATIENT NAME: Dayana Quiñones : 1940 (82 y.o.) Reason for Consult: Critical Care & Vent Management Batching Operator: Dr. Brumfield ([place]) PCP: Dr. Amalia Avery HPI: 82-year-old female seen in outpatient setting for surgical evaluation due to progressive shortness of breath with exertion. Patient with significant cardiac history: CAD ([place]-October 2018-NEGRO to LAD and LCx; November 2018-NEGRO to RCA), paroxysmal atrial fibrillation, HFrEF-30%, 2+ MR, Surgery was discussed and patient consented to intervention. Surgery: 12/14/22: CABGx2 (PEDRAZA LAD, SVG to OM1) MVRepair (28 ring) LAAL with atriclip with Dr. Chou on 12/14/22 Interval History: 12/14/22: POD #0: Patient arrived to the unit, intubated and sedated. Surgical hand off completed below. Slightly hypotensive upon arrival. Still on 0.05 mcg/kg/min. Drop in Hgb noted; Cell saver only given intraoperatively. Review of Systems Unable to perform ROS: Intubated Allergies: Morphine Past Medical History: has a past medical history of Anxiety, Atherosclerosis of coronary artery bypass graft of [place] heart without angina pectoris, Chronic kidney disease, GERD (gastroesophageal reflux disease), Hypertension, Ischemic cardiomyopathy, Mobitz type II atrioventricular block, STEMI (ST elevation myocardial infarction) ([facility]) (11/16/2018), Stroke ([facility]), and Vertigo. Past Surgical History: has a past surgical history that includes Coronary stent placement (12/19/2018); Cardiac pacemaker placement (08/02/2018); and Back surgery. Social History: reports that she quit smoking about 55 years ago. Her smoking use included cigarettes. She has never used smokeless tobacco. She reports that she does not drink alcohol and does not use drugs. Family History: family history includes Heart disease in her father. Medications: Prior to Admission medications Medication Sig Start Date End Date Taking? Authorizing Provider acyclovir (Zovirax) 800 MG tablet Take 800 mg by mouth daily. Yes Historical Provider, aspirin 81 MG EC tablet Take 81 mg by mouth in the morning. Yes Historical Provider, atorvastatin (Lipitor) 20 MG tablet Take 20 mg by mouth Nightly. Yes Historical Provider, bacitracin-polymyxin b (Polysporin) ointment Apply to affected area daily 12/04/22 12/04/23 Yes Jim R Chiqui, ADDICTION MEDICINE PHYSICIAN - SHELLFISH PROCESSING MACHINE TENDER carvedilol (Coreg) 12.5 MG tablet Take 1 tablet by mouth in the morning and 1 tablet in the evening. Take with meals. 11/14/22 Yes Historical Provider, dapagliflozin (Farxiga) 10 MG Take 10 mg by mouth daily (with breakfast). Yes Historical Provider, difluprednate (Durezol) 0.05 % ophthalmic solution Administer 1 drop into the left eye every other day. Yes Historical Provider, furosemide (Lasix) 40 MG tablet Take 40 mg by mouth daily. 11/07/22 Yes Historical Provider, omeprazole (PriLOSEC) [address] capsule Take 40 mg by mouth in the morning. 11/14/22 Yes Historical Provider, sacubitril-valsartan (Entresto) 24-26 MG tablet Take 1 tablet by mouth in the morning and 1 tablet in the evening. Yes Historical Provider, timolol (Timoptic) 0.5 % ophthalmic solution Administer 1 drop into the left eye in the morning and 1 drop in the evening. 11/16/21 Yes Historical Provider, apixaban (Eliquis) 5 MG tablet Take 5 mg by mouth 2 times daily. 09/19/22 Historical Provider, ERYTHROMYCIN EX Apply topically. Ointement for eye Historical Provider, [facility] Historical Provider, Surgery Hand Off: Arrival Time in HLU: 1302 Complications/Pertinent Events: unable to float swan Last Paralytic: 1200 Medications given in route: none Gtts OR report Epinephrine: 0.05 mcg/kg/min Propofol: 25 Insulin: 0 Amicar: 29 Current gtts upon arrival Epinephrine: 0.05 mcg/kg/min Propofol: 25 Insulin: 0 Amicar: 29 Devices: Epicardial wires: yes [x] no [] Patient has PPM Blood Transfusions Intra Op: yes [] no [x] CellSaver: 470cc Additional Interventions/Misc during Handoff None noted Objective: BP 126/73 Pulse 70 Temp 36.4 C (97.6 F) (Temporal) Resp 16 Ht 1.6 m (5' 3 ) Wt 76.7 kg (169 lb) SpO2 95% BMI 29.94 kg/m Intake/Output Summary (Last 24 hours) at 12/14/2022 1301 Last data filed at 12/14/2022 1230 Gross per 24 hour Intake 1242.6 ml Output 1250 ml Net -7.4 ml Physical Exam Constitutional: Interventions: She is sedated and intubated. HENT: Mouth/Throat: Comments: ETT in place Neck: Vascular: No JVD. Trachea: Trachea normal. Cardiovascular: Rate and Rhythm: Normal rate and regular rhythm. Pulses: Radial pulses are 2+ on the right side and 2+ on the left side. Heart sounds: Normal heart sounds, S1 normal and S2 normal. Pulmonary: Effort: She is intubated. Breath sounds: Decreased breath sounds present. Abdominal: General: Bowel sounds are absent. Musculoskeletal: Right lower leg: No edema. Left lower leg: No edema. Skin: Findings: Bruising and ecchymosis present. Comments: Surgical dressing dry and intact Right groin cannulation site - busing no hematoma Diagnostics: Reviewed in EMR Labs: Reviewed in EMR BMP: Recent Labs 12/14/22 1208 NA 140 K 4.3 CL 109* CO2 19* BUN 20* CREATININE 1.18* CALCIUM 8.8 MG 4.0* PHOS 2.6 CBC: Recent Labs 12/14/22 1208 12/14/22 1209 WBC 13.7* -- HGB 6.4* 6.6* HCT 19.6* -- PLT 63* -- MCV 92.4 -- RDW 14.4 -- INR: Recent Labs 12/14/22 1208 INR 1.8* Assessment: CAD s/p CABG x2 Moderate to Severe MR s/p MVRepair HFrEF HTN CKD GERD S/p PPM 08/02/2018 ([employer]) Hx Stroke Paroxsymal Afib/mobitz type II AV block Anxiety Post operative Pulm Management: Normal Post-operative Course Acute blood loss anemia/consumptive thrombocytopenia Plan: - Check H/H, VBG - Hypotension - increase epi slightly; give albumin/LR fluid challenge - Sugamadex - Hemodynamic goals: CI >2.0, SBP 90-130 mmHg, MAP 60-75 - PRN Hypertension 1st option Cardene gtt 2nd option or if Cardene unavailable Nitro -PRN Hypotension CI >2.0 euvolemic with low SVR- Levophed gtt CI <2.0 euvolemic - Epinephrine gtt - Temp pacing wires/mode: V wires; PPM DDD at 60 - Chest tubes: no air leak or fluctuation noted, suction - Cefazolin - surgical prophy for 5 doses total - Wean to Extubation: Arrival Time in unit: 1302 - Vent: ACVC+, TV 6ml/kg/min, rate 12, fio2 100% PEEP 8 VAP protocol: HOB >30 degrees; peridex BID - Insulin gtt; per endo/protocol - GI prophy: Protonix IV daily Patient treatment plan and plan of care discuss with Dr. Russ Montero Associated attestation - Russ Montero MD - 12/14/2022 8:08 PM EDT I have personally seen the patient and examined along with the JACEY/resident team. I personally obtained the chang and relevent portions of the history and performed physical exam. I reviewed the chart including MAR , labs and radiology and discussed the patient's plan of action with the resident/JACEY. This note reflects my plan of care as I have edited the note to reflect my findings and my assessment and plan. Date of service: 12/14/22 Discussed with: []Residents [x]Patient/Family [x]RN [x]Consultants []SW/TCC []Other [x]JACEY Personally Reviewed: [x]Epic notes [x]Radiology studies [x]Labs [x]EKG []Other Assessment: -mvCAD s/p CABGx2 -MVR s/p mitral valve repair -HFrEF -HTN -CKD -GERD -PPM (2018) -Prior CVA -pAF, mobitz II AV block -Anxiety -Leukocytosis- reactive -Thrombocytopenia - consumptive -ABLA Plan: -Continue lung protective ventilation -Start SBT once HDS, awake, alert, pain controlled -Give IVF and colloid for volume expansion. Transfuse PRBC -Hemodynamic goals: CI > 2. MAP 60-75 -DDD paced at 60 -Insulin per endo -Chest tubes to wall suction, monitor output -Continue bebe-op abx -Remainder as per JACEY documentation -Family updated at bedside Excluding procedures, the total critical care time invested in the care of this patient with life threatening/unstable organ failure today is at least 45 minutes. This includes direct patient contact, review of medical record, management of life support systems, review of data including imaging and labs, discussions with other team members, patient's family and physicians. documented in this encounter [facility] 12-19-2022 Note Care Management Prog ress Note Chart reviewed. Pt remains on HLU s/p CABGx2. AIR POLLUTION INSPECTOR following, dobhoff while NPO. Discharge Plan: PT recommending IPR. Spoke with pt at bedside, daughter will be in later, provided facility list for pt and daughter to review. TCC will continue to follow with SW. Discharge Milestones and Delays Expected Date/Time: 12/21/[address] discharge order Complete med reconciliation Case mgmt discharge readiness Clinical Stability Diagnsotic Workup Expected Discharge History Expected Date/Time Set By Reviewed At 12/21/2022 Naheed Fernandez RN 12/19/2022 7:30 AM 12/19/2022 Naheed Fernandez RN 12/18/2022 10:11 AM 12/19/2022 Jessica Jaramillo RN 12/15/2022 10:02 AM 12/19/2022 Jan Rebollar APRN - SHELLFISH PROCESSING MACHINE TENDER 12/14/2022 1:03 PM 12/19/2022 Jan Rebollar APRN - JOELLE 12/14/2022 1:00 PM 12/21/2022 Jim Florian APRN - SHELLFISH PROCESSING MACHINE TENDER 12/14/2022 5:47 AM Length of Stay (Days): 5 GMLOS: 5.9 [facility] 12-17-2022 Note Nutrition Assessment Type and Reason for Visit: Initial (tech referral for CABG and dysphagia) Nutrition Recommendations/Plan: 1. Pt is currently NPO. Pt is POD #3 CABGx2 (PEDRAZA LAD, SVG to OM1) MVRepair (28 ring) LAAL with atriclip on 12/14/22. Pt was extubated on 12/15 and AIR POLLUTION INSPECTOR recommending NPO. Pt went for MBSS today with continued NPO recommendations. Recommend pt not be without nutrition source for >72 hours if medically able. --> if pt is able to be cleared for oral diet, consider goal of Low Fat/Low Chol/High Fiber/ABI given recent cardiac operation. Pt with surgical wounds to sternum and left pretibial- would benefit from ONS such as Arnoldo vs Ensure to promote wound healing pending pt preference. If pt is not cleared for thin liquids could always consider Magic Cup as well. --> should nutrition via alternate route be required, consider goal EN: Glucerna 1.5 @ goal rate of 35mls/hr to provide 1260kcals, 69gm protein, 637mL free fluid (24kcals/kg, 1.3gm/kg IBW). Pt does not have DM history however currently with increased needs for protein as well as need for optimal BG control to aide in surgical wound healing. 2. Will continue to monitor tolerance of nutrition once initiated via appropriate route. 3. Did not feel now was appropriate time for education given that pt was sleeping soundly and currently without means of nutrition- will monitor throughout admit for more appropriate time for cardiac diet education if warranted. 4. Will continue to monitor weight changes, labs and overall nutrition status 5. RD will continue to follow up weekly Malnutrition Assessment: Malnutrition Status: At risk for malnutrition (Comment) (will continue to monitor criteria for changes throughout admit) Context: Acute Illness (pt is POD #3 CABGx2 (PEDRAZA LAD, SVG to OM1) MVRepair (28 ring) LAAL with atriclip on 12/14/22) Findings of the 6 clinical characteristics of malnutrition: Energy Intake: No significant decrease in energy intake (pt has been NPO during admit, briefly had full liquids ordered on 12/15 however AIR POLLUTION INSPECTOR recs NPO and diet was changed back, failed MBSS today) Weight Loss: No significant weight loss (pt weight has been stable 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- pt CBW 172# no method on 12/17, was 169# stated on 12/14 presentation, only weight noted per chart review is from 11/14/22: 171#) Body Fat Loss: (pt appears appropriately nourished for age, did not complete NFPE as pt was resting soundly) Muscle Mass Loss: (pt appears appropriately nourished for age, did not complete NFPE as pt was resting soundly) Fluid Accumulation: No significant fluid accumulation 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 Strength: Not Performed Nutrition Assessment: pt with PMH significant for GERD, anxiety, CKD, HTN, stroke and CAD s/p acute RI who presented to [facility] ED on 12/14/22 for planned procedure, pt underwent prior dug-eluting stent to LAD as well as left circumflex artery, in November 2018 she underwent a drug-eluting stent to the right coronary artery, April 2020 she presented with chest pain and SOB- underwent stress test which demonstrated anteroapical ischemia, pt also underwent a heart catheterization which demonstrated preserved EF of 60%, patent stents in the ostial left circumflex 70% stenosis, medical therapy was recommended, echocardiogram done in May 2021 demonstrated an EF of 30%, pt was seen by Cardiology for an urgent appointment in October 2022 for increased SOB, pt underwent a cardiac catheterization on 11/22/22 which demonstrated distal left main coronary artery and patent stent in the circumflex artery and right coronary artery with reduced left ventricular systolic function estimated EF 30% with moderate mitral regurgitation, pt is now POD #3 CABGx2 (PEDRAZA LAD, SVG to OM1) MVRepair (28 ring) LAAL with atriclip on 12/14/22, pt was successfully extubated to [place] on 12/15, Endo was consulted due to post op heart and was managing insulin gtt- noted 12/16 blood glucose readings have been reasonable without requiring insulin and no previous diagnosis of diabetes thus signed off 12/16, AIR POLLUTION INSPECTOR was consulted and completed assessment 12/15 and noted s/s oropharyngeal dysphagia + overt clinical s/s pulmonary compromise with PO thus recommended NPO, AIR POLLUTION INSPECTOR re-assessed on 12/16 and recommended continued NPO with completion of MBSS which was done today with recs noted for NPO with AIR POLLUTION INSPECTOR to instruct patient on Free Water Protocol with ice chips and water via teaspoon with double swallow and intermittent cough and re-swallow, noted epicardial wire and chest tubes removed today without difficulty per SAP BASIS documentation, in terms of nutrition pt has been NPO throughout admit (briefly full liquids were provided on 12/15 but then modified to NPO s/p AIR POLLUTION INSPECTOR recs), at time of presentation to room pt daughter is at bedside and pt is sleeping soundly, daughter states that she just recently arrived and was awaiting an update from staff about events of today, pt daughter confirms pt has (more content not included)... [facility] 12-17-2022 Note SPEECH SERVICE PARTS COORDINATOR OLOGY MODIFIED BARIUM SWALLOW STUDY Patient Name: Dayana Quiñones : 1940 Today's Date: 12/17/2022 Visit Info / PM[facility] ADMISSION DATE: 12/14/2022 ADMITTING DIAGNOSIS: has CAD in [place] artery on their problem list. General Information Radiologist: Dr. Roberts Date of Onset: 12/14/2022 Type of Study: Initial MBS Current Diet Solid Consistency: NPO Current Diet Liquid Consistency: NPO Patient complaints: They won't let me have anything to drink Consistencies Administered: Reg solid, Dysphagia Pureed (Dysphagia I), [place] cup, Thin cup, Thin teaspoon, Thin straw Patient Position: Lateral Patient was referred for a modified barium swallow study to assess the efficiency of her swallow function, rule out aspiration and make recommendations regarding safe dietary consistencies, effective compensatory strategies, and safe eating environment. Past Medical History: Diagnosis Date Anxiety Atherosclerosis of coronary artery bypass graft of [place] heart without angina pectoris Chronic kidney disease GERD (gastroesophageal reflux disease) Hypertension Ischemic cardiomyopathy Mobitz type II atrioventricular block STEMI (ST elevation myocardial infarction) ([facility]) 11/16/2018 Stroke ([facility]) Vertigo Past Surgical History: Procedure Laterality Date BACK SURGERY fusion CARDIAC PACEMAKER PLACEMENT 08/02/2018 CORONARY STENT PLACEMENT 12/19/2018 total of 4 on different occasions Dayana Quiñones is a 82 y.o. female referred by Dr. Brumfield for CABG and MVR. Per note, pt has history of CAD s/p acute RI and underwent dug-eluting stent to LAD as well as left circumflex artery. In November 2018, she underwent a drug-eluting stent to the right coronary artery. In April 2020, she presented with chest pain and SOB. She underwent a stress test which demonstrated anteroapical ischemia. She also underwent a heart catheterization which demonstrated preserved EF of 60%, patent stents in the ostial left circumflex 70% stenosis. Medical therapy was recommended. Echocardiogram done in May 2021 demonstrated an EF of 30%. Pt saw Cardiology for an urgent appointment in October 2022 for increased SOB. Pt underwent a cardiac catheterization on 11/22/22 which demonstrated distal left main coronary artery and patent stent in the circumflex artery and right coronary artery with reduced left ventricular systolic function estimated EF 30% with moderate mitral regurgitation. Pt is currently taking Eliquis for atrial fibrillation. Pt is here now for an evaluation. Subjective General Chart Reviewed: Yes Behavior/Cognition Behavior/Cognition: Alert, Cooperative Assessment Oral Preparation / Oral Phase: Oral Preparation / Oral Phase Oral Phase: Impaired Oral Phase Oral Phase: mild-moderately reduced lingual strength & coordination resulting in poor bolus formation, oral residue and premature spillage of liquids, mildly thick and thin, to laryngeal vestibule (inconsistently). mastication is adequate while mildly prolonged Pharyngeal Phase: Pharyngeal Phase Pharyngeal Phase: Impaired Pharyngeal Phase Pharyngeal: moderate pharyngeal phase dysphagia with decreased airway closure and pharyngeal clearance resulting in aspiration with inconsistent, weak, ineffective cough response Cervical Esophageal Phase: Upper Esophageal Screen Esophageal Screen: WFL (visualized above level of UES only) Impression Mild-moderate oral and moderate pharyngeal dysphagia with decreased lingual strength & coordination, decreased airway protection, and reduced pharyngeal clearance resulting in aspiration during the swallow on presented bolus as well as residue. Patient inconsistently responded to aspiration with a weak, ineffective cough. Recommend NPO with AIR POLLUTION INSPECTOR to instruct patient on Free Water Protocol with ice chips and water via teaspoon with double swallow and intermittent cough and re-swallow. Plan & Recommendations Recommendations/Treatment: Recommendations/Treat Requires AIR POLLUTION INSPECTOR Intervention: Yes D/C Recommendations: Ongoing speech therapy is recommended during this hospitalization Solid consistency: NPO Liquid consistency: NPO Medication administration: Other (Recommend non-oral administration of medications.) Education Given: safety Education Response: Needs reinforcement Prognosis: Prognosis Prognosis for safe diet advancement: good The patient was educated regarding the general results and recommendations of this evaluation. Encounter Problems Encounter Problems (Active) Swallowing Patient will participate in repeat clinical dysphagia evaluation (Not Progressing) Start: 12/15/22 Expected End: 12/29/22 Patient will participate in instrumental assessment of swallowing as appropriate (Initiated) Start: 12/16/22 Expected End: 12/30/22 OMARI Logan [facility] 12-14-2022 Note Central Venous Line: Date/Time: 12/14/2022 7:45 AM A central venous line was placed in the Procedural for the following indication(s): central venous access and CVP monitoring. Sterility preparation included the following: provider hand hygiene performed prior to central venous catheter insertion, all 5 sterile barriers used (gloves, gown, cap, mask, large sterile drape) during central venous catheter insertion, antiseptic used during central venous catheter insertion and skin prep agent completely dried prior to procedure. Medical reason for not performing maximal sterile barrier technique: no The patient was placed in Trendelenburg position. Right internal jugular vein was prepped. The site was prepped with Chlorhexidine. Size: 8 Georgian Catheter type: introducer Number of Lumens: single lumen During the procedure, the following specific steps were taken: target vein identified, needle advanced into vein and blood aspirated and guidewire advanced into vein. Procedure performed using ultrasound guidance - Image permanently retained with wire or catheter in vein. Sterile gel and probe cover used in ultrasound-guided central venous catheter insertion. Intravenous verification was obtained by ultrasound. Post insertion care included: all ports aspirated, all ports flushed easily, guidewire removed intact, Biopatch applied, line sutured in place and dressing applied. During the procedure the patient experienced: patient tolerated procedure well with no complications. Staffing Performed: anesthesiologist Anesthesiologist: Rom Snider DO Performed by: GRIS Bojorquez CRNA Authorized by: GRIS Bojorquez CRNA [facility] 12-14-2022 Note Patient: Dayana gibson Procedure Summary Date: 12/14/22 Room / Location: [place] [address] Operating Room Anesthesia Start: 0708 Anesthesia Stop: 1304 Procedures: CABG, MITRAL VALVE REPAIR, LEFT ATRIAL APPENDAGE CLIP, ELA (Chest) Echocardiography transesophageal real-time VALVULOPLASTY MITRAL VALVE WITH CARDIOPULMONARY BYPASS (Chest) Diagnosis: Atherosclerotic heart disease of [place] coronary artery without angina pectoris Nonrheumatic aortic (valve) stenosis (Atherosclerotic heart disease of [place] coronary artery without angina pectoris [I25.10]) (Nonrheumatic aortic (valve) stenosis [I35.0]) Surgeons: Danielle Chou MD Responsible Provider: Rom Snider DO Anesthesia Type: general ASA Status: 4 Anesthesia Type: general Vitals Value Taken Time BP 108/52 12/14/22 1304 Temp 97 12/14/22 1322 Pulse 66 12/14/22 1304 Resp 14 12/14/22 1322 SpO2 100 % 12/14/22 1304 Anesthesia Post Evaluation Patient location during evaluation: ICU Patient participation: complete - patient cannot participate Level of consciousness: intubated and sedated Pain management: adequate Airway patency: patent Dental Injury: no Cardiovascular status: acceptable and hemodynamically stable Respiratory status: acceptable, ETT, intubated and ventilator Hydration status: acceptable Nausea/Vomiting: controlled No notable events documented. Patient can be discharged once all PACU criteria has been met. [facility] 08-17-2023 Note Patient: Dayana gibson Procedure Summary Date: 12/14/22 Room / Location: [facility] Operating Room Anesthesia Start: 0708 Anesthesia Stop: 1304 Procedures: CABG, MITRAL VALVE REPAIR, LEFT ATRIAL APPENDAGE CLIP, ELA (Chest) Echocardiography transesophageal real-time VALVULOPLASTY MITRAL VALVE WITH CARDIOPULMONARY BYPASS (Chest) Diagnosis: Atherosclerotic heart disease of [place] coronary artery without angina pectoris Nonrheumatic aortic (valve) stenosis (Atherosclerotic heart disease of [place] coronary artery without angina pectoris [I25.10]) (Nonrheumatic aortic (valve) stenosis [I35.0]) Surgeons: Danielle Chou MD Responsible Provider: Rom Snider DO Anesthesia Type: general ASA Status: 4 Anesthesia Type: general Vitals Value Taken Time BP 108/52 12/14/22 1304 Temp 97 12/14/22 1321 Pulse 66 12/14/22 1304 Resp 14 12/14/22 1321 SpO2 100 % 12/14/22 1304 Anesthesia Post Evaluation Patient participation: complete - patient cannot participate Post-procedure mental status: sedated/intubated. Pain score: 0 Pain management: adequate Multimodal analgesia pain management approach Airway patency: patent Two or more strategies used to mitigate risk of obstructive sleep apnea Cardiovascular status: hemodynamically stable Respiratory status: acceptable, intubated, ventilator and ETT Hydration status: acceptable No notable events documented. MIPS #430 PONV Patient received an inhalational anesthetic (4554F) Patient exhibits three or more risk factors for PONV (4556F) Patient did not receive at least 2 prophylactic Rx PONV anti-emtic agents of different classes preop and/or intraop (G9776) intubated MIPS # 424 Perioperative Temperature Management Anesthesia time was 60 minutes or longer (4255F) Anesthesai administered was General (inhalational or TIVA) or Neuraxial block (X0424) At least one body temperature greater than 95.8F/35.5C achieved within the 30 mins immediately prior to or the 15 minutes immediately following anesthesia end time (G9771) MIPS #477 Multimodal Pain Management Not emergent case Patient was not administered multimodal pain management (G2149) Intubated patient (G2149) MIPS #404 Anesthesiology Smoking Abstinence The patient is not a current smoker (e.g. cigarette, cigar, pipe, e-cigarette/vaping/marijuana) If no stop here (G9644) I completed my handoff to the receiving clinician during which we: 1. Identified the patient 2. Identified the responsible provider 3. Reviewed the pertinent medical history 4. Discussed the surgical course 5. Reviewed intra-op anesthesia management and issues during anesthesia 6. Set expectations for post-procedure period 7. Allowed opportunity for questions and acknowledgement of understanding. [facility] 12-14-2022 Note Airway Date/Time: 12/14/2022 7:29 AM Urgency: scheduled General Information and Staff Patient location during procedure: Procedural Anesthesiologist: Rom Snider DO Resident/FINANCIAL SERVICES PROFESSIONAL: GRIS Bojorquez CRNA Performed: anesthesiologist Performed by: GRIS Bojorquez CRNA Authorized by: GRIS Bojorquez CRNA Indications and Patient Condition Indications for airway management: anesthesia and airway protection Sedation level: Asleep Preoxygenated: yes Patient position: sniffing MILS maintained throughout Mask difficulty assessment: 1 - vent by mask Final Airway Details Final airway type: endotracheal airway Successful airway: ETT Cuffed: yes Successful intubation technique: video laryngoscopy Endotracheal tube insertion site: oral Blade: Blair Blade size: #3 ETT size (mm): 7.0 Cormack-Lehane Classification: grade I - full view of glottis Placement verified by: chest auscultation and capnometry Measured from: lips ETT to lips (cm): 23 Number of attempts at approach: 2 Number of other approaches attempted: 0 [facility] 12-14-2022 Note Arterial Line: Date/Time: 12/14/2022 7:29 AM An arterial line was placed Procedure performed using ultrasound guidance - Image permanently retained with wire or catheter in vein.in the Procedural for the following indication(s): continuous blood pressure monitoring and blood sampling needed. A 20 gauge (size), 1 and 3/4 inch (length), Arrow (type) catheter was placed, into the Left radial artery, secured by Tegaderm and tape. Events: patient tolerated procedure well with no complications. Staffing Performed: FINANCIAL SERVICES PROFESSIONAL Resident/FINANCIAL SERVICES PROFESSIONAL: GRIS Bojorquez CRNA Performed by: GRIS Bojorquez CRNA Authorized by: GRIS Bojorquez CRNA [facility] 12-14-2022 Note H&P reviewed. The brittney mccabe was examined and there are no changes to the H&P. [facility] 12-14-2022 History and physical note H&P reviewed. The patient was examined and there are no changes to the H&P. Source Note - Danielle Chou MD - 11/29/2022 11:00 AM EDT Images from the original note were not included. [facility] [address] [facility] [address] Dept: [phone] Dept Loc: [phone] Visit type: New Reason for Visit: CAD, MV regurgitation Assessment and plan 82 F with progressive shortness of breath on exertion. Workup significant of reduced EF at 30%, 2+ MR, LM and ostial circ disease on cath. Most likely cause of symptoms appear to be cardiac, but etiology isnt exact. Coronary artery disease: I discussed with her and her family the indications, risks, benefits, and perioperative course of a coronary artery bypass grafting. I discussed alternatives including no intervention, medical therapy only, and percutaneous coronary intervention with medications. A surgical revascularization is recommended in her case. On my review of the coronary angiogram, she does have good targets and will need 2 vessel bypass grafts. She is quite functional and is of low to intermediate risk given her age and reduced EF. Plan for PVI and LAAL in addition Mitral valve regurgitation: She does not have overt symptoms of heart failure. I do not think her symptoms are related to her degree of regurgitation. I have offered concomitant mitral valve ring at the time of her operation. She is agreeable. Heart failure, reduced ejection fraction: She has been on medications for 2-3 months without relief of her symptoms. She is cell compensated. She should hold entresto and farxiga a prior. Eliquis should be healed 5 days prior. The risks of the procedure/s include but are not limited to, bleeding, infection, pneumonia, respiratory failure, prolonged Intensive Care Unit stay, multiorgan failure, renal failure needing temporary and/or permanent dialysis, cerebrovascular accident, pulmonary embolism, deep venous thrombosis, cardiac failure or ischemia or arrhythmia, and . Danielle Chou MD Cardiothoracic Surgery History of Present Illness Dayana Quiñones is a 82 y.o. female referred by Dr. Brumfield for CABG and MVR. Per note, pt has history of CAD s/p acute RI and underwent dug-eluting stent to LAD as well as left circumflex artery. In November 2018, she underwent a drug-eluting stent to the right coronary artery. In April 2020, she presented with chest pain and SOB. She underwent a stress test which demonstrated anteroapical ischemia. She also underwent a heart catheterization which demonstrated preserved EF of 60%, patent stents in the ostial left circumflex 70% stenosis. Medical therapy was recommended. Echocardiogram done in May 2021 demonstrated an EF of 30%. Pt saw Cardiology for an urgent appointment in October 2022 for increased SOB. Pt underwent a cardiac catheterization on 11/22/22 which demonstrated distal left main coronary artery and patent stent in the circumflex artery and right coronary artery with reduced left ventricular systolic function estimated EF 30% with moderate mitral regurgitation. Pt is currently taking Eliquis for atrial fibrillation. Pt is here now for an evaluation. Past Medical History Past Medical History: Diagnosis Date Anxiety Atherosclerosis of coronary artery bypass graft of [place] heart without angina pectoris Hypertension Ischemic cardiomyopathy Mobitz type II atrioventricular block STEMI (ST elevation myocardial infarction) ([facility]) 11/16/2018 Vertigo Past Surgical History Past Surgical History: Procedure Laterality Date CARDIAC PACEMAKER PLACEMENT 08/02/2018 CORONARY STENT PLACEMENT 12/19/2018 Family History Family History Problem Relation Name Age of Onset Heart disease Father Social History Social History Tobacco Use Smoking status: Former Years: 10.00 Types: Cigarettes Quit date: 1968 Years since quittin.6 Smokeless tobacco: Never Substance Use Topics Alcohol use: Never Drug use: Never Allergies Allergies Allergen Reactions Morphine Other reaction(s): GI Upset, Vomiting vomiting Medications Current Outpatient Medications: apixaban (Eliquis) 5 MG tablet, Take 5 mg by mouth daily., Disp: , Rfl: aspirin 81 MG EC tablet, Take 81 mg by mouth in the morning., Disp: , Rfl: atorvastatin (Lipitor) 20 MG tablet, Take 20 mg by mouth daily., Disp: , Rfl: carvedilol (Coreg) 12.5 MG tablet, Take 1 tablet by mouth in the morning and 1 tablet in the evening. Take with meals., Disp: , Rfl: dapagliflozin (Farxiga) 10 MG, Take 10 mg by mouth daily (with breakfast)., Disp: , Rfl: difluprednate (Durezol) 0.05 % ophthalmic solution, Administer 1 drop into the left eye every other day., Disp: , Rfl: furosemide (Lasix) 40 MG tablet, Take 40 mg by mouth daily., Disp: , Rfl: omeprazole (PriLOSEC) [address] capsule, Take 40 mg by mouth in the morning., Disp: , Rfl: sacubitril-valsartan (Entresto) 24-26 MG tablet, Take 1 tablet by mouth in the morning and 1 tablet in the evening., Disp: , Rfl: timolol (Timoptic) 0.5 % ophthalmic solution, Administer 1 drop into the left eye in the morning and 1 drop in the evening., Disp: , Rfl: Review of Systems Review of Systems Constitutional: Positive for fatigue. Respiratory: Positive for shortness of breath (on exertion). All other systems reviewed and are negative. Physical Exam Vitals: BP 114/71 (BP Location: Left arm, Patient Position: Sitting, BP Cuff Size: Large adult) Pulse 62 Temp 36.2 C (97.1 F) (Temporal) Ht 5' 3 (1.6 m) Wt 171 lb (77.6 kg) BMI 30.29 kg/m Constitutional: General: Not in acute distress. Appearance: Normal appearance. Not toxic-appearing. Ear, nose, mouth: Bilateral external ear and nose normal. Nose: Nose normal. Mouth: Appearance normal, no bleeding, moist mucus membranes Eyes: General: No scleral icterus. No discharge from bilateral eyes Extraocular Movements: Extraocular movements intact. Pupils equal and reactive bilaterally Cardiovascular: Heart: Regular rhythm. Normal heart sounds. Vascular: No carotid bruit. Edema: No edema in bilateral lower extremities Pulmonary: Effort: Pulmonary effort is normal. No respiratory distress. Breath sounds: Normal breath sounds. No wheezing. Chest wall: No tenderness. Abdominal: Appearance: Not distended Palpations: There is no abdominal tenderness, no guarding. Musculoskeletal: Bilateral upper and lower extremities: Normal range of motion, no deformity Head: Normocephalic and atraumatic. Neck: Normal range of motion and neck supple. No muscular tenderness. Lymphadenopathy: Cervical: No cervical adenopathy. Skin: General: Skin is warm and dry. Coloration: Skin is not jaundiced. Neurological: General: No focal deficit present. Cranial Nerves: No obvious cranial nerve deficit. Psychiatric: Mood and Affect: Mood normal. Thought Content: Thought content normal. Patient has good judgement and insight Mental Status: Alert and oriented to place, person, and time. Labs No results found for: WBC, HGB, PLT, NA, K, CREATININE Imaging Heart Catheterization 11/22/22 Chest Xray 11/07/22 Echocardiogram 05/31/22 CTA Chest 01/01/21 Cardiac Catheterization 06/21/20 Stress Test 05/28/20 Patient Care Team: PCP: Disclaimer INFORMED CONSENT:The nature and purpose of the proposed treatment or procedure have been discussed. The risks and benefits of the proposed treatment or procedures have been reviewed. Alternatives have been reviewed in addition to the risks and benefits of not receiving treatments or undergoing procedures. Pursuant to this discussion, the patient agrees to undergo the proposed treatment or procedure. Captured images seen in this note from are not a substitute for a comprehensive interpretation of the entire data set as reflected by the interpreting physician with regard to radiology, echocardiography, and other diagnostic images. This note may have been dictated using [employer] Medical Practice Edition 2.6 and/or [employer] Voice Recognition Feature. The document was proofread, however unrecognized voice recognition transplant registered nurse errors may be present. Images from the original note were not included. Comprehensive Pre Surgical History and Physical ? Name: Dayana Quiñones : 1940 (Age-82 y.o.) Date of Service: Pt seen/examined on 12/08/2022 Procedure Information Date/Time: 12/14/22 0700 Procedures: CABG, MITRAL VALVE REPAIR, ELA (Chest) Echocardiography transesophageal real-time VALVULOPLASTY MITRAL VALVE WITH CARDIOPULMONARY BYPASS (Chest) Location: [facility] Operating Room Surgeons: Danielle Chou MD Chief Complaint: Atherosclerotic heart disease of [place] coronary artery without angina pectoris Nonrheumatic aortic (valve) stenosis ASSESSMENT/PLAN: Patient is considered intermediate risk for this high risk procedure/surgery () with no reducible risk factors. Based on the above evaluation, the benefits of the planned procedure likely exceed the risks. The patient is medically optimized to proceed with the planned procedure without any further cardiopulmonary testing. 1) Atherosclerotic heart disease of [place] coronary artery without angina pectoris Nonrheumatic aortic (valve) stenosis - Managed per surgery 2) CAD/ Pacemaker/ CHF/ HLD/ HTN Eliquis (surgeon instructed to hold 5 days) ASA 81 mg (per M Chiqui ADDICTION MEDICINE PHYSICIAN orders- hold DOS) Lipitor Coreg Entresto Lasix Farxiga 3) GERD Prilosec Visit Type: Pre-Admission Testing Visit Labs Ordered: YES - PER PAT PROTOCOL Sleep Referral Ordered: NO - NEGATIVE SCREEN PER SLEEP REFERRAL PROTOCOL Total time spent (which include face to face and non face to face encounters) : 45 minutes Toxic drug monitoring/narrow therapeutic index drug monitoring : # Drug name : multiple # Route administered : oral # Method of monitoring : labs/ ekg PAT Protocol referenced includes: 1. Anesthesia Lab Protocol Orders 2. Perioperative Cardiovascular Risk Assessment 3. Anesthesia Assessment 4. Pain Assessment and Acute Pain Service Consult (if appropriate) 5. Medical Clearance/Consult from Internal Medicine (IMS) 6. Shower/Wash Order (for designated surgeries) 7. ARTHUR Screen and Sleep Clinic Referral (if appropriate) History Of Present Illness: 82 y.o. female who we are asked to see/evaluate by Elieser Chou for pre-operative evaluation prior to above procedure. ? Denies history of TIA, CVA Past Medical History: Past Medical History: No date: Anxiety No date: Atherosclerosis of coronary artery bypass graft of [place] heart without angina pectoris No date: Chronic kidney disease No date: GERD (gastroesophageal reflux disease) No date: Hypertension No date: Ischemic cardiomyopathy No date: Mobitz type II atrioventricular block 11/16/2018: STEMI (ST elevation myocardial infarction) (HCC) No date: Stroke (HCC) No date: Vertigo Past Surgical History: Past Surgical History: No date: BACK SURGERY Comment: fusion 08/02/2018: CARDIAC PACEMAKER PLACEMENT 12/19/2018: CORONARY STENT PLACEMENT Comment: total of 4 on different occasions Medications Prior to Admission: Prior to Admission medications Medication Sig Start Date End Date Taking? Authorizing Provider apixaban (Eliquis) 5 MG tablet Take 5 mg by mouth daily. 09/19/22 Historical Provider, aspirin 81 MG EC tablet Take 81 mg by mouth in the morning. Historical Provider, atorvastatin (Lipitor) 20 MG tablet Take 20 mg by mouth daily. Historical Provider, bacitracin-polymyxin b (Polysporin) ointment Apply to affected area daily 12/04/22 12/04/23 GRIS Birmingham CNP carvedilol (Coreg) 12.5 MG tablet Take 1 tablet by mouth in the morning and 1 tablet in the evening. Take with meals. 11/14/22 Historical Provider, chlorhexidine (Peridex) 0.12 % solution Use 15 mL in the mouth or throat Once for 1 dose. Swish for 30 seconds and spit out the night before surgery. Do not swallow. 12/04/22 12/04/22 GRIS Birmingham CNP dapagliflozin (Farxiga) 10 MG Take 10 mg by mouth daily (with breakfast). Historical Provider, difluprednate (Durezol) 0.05 % ophthalmic solution Administer 1 drop into the left eye every other day. Historical Provider, furosemide (Lasix) 40 MG tablet Take 40 mg by mouth daily. 11/07/22 Historical ProviderMD omeprazole (PriLOSEC) [address] capsule Take 40 mg by mouth in the morning. 11/14/22 Historical Provider, sacubitril-valsartan (Entresto) 24-26 MG tablet Take 1 tablet by mouth in the morning and 1 tablet in the evening. Historical Provider, timolol (Timoptic) 0.5 % ophthalmic solution Administer 1 drop into the left eye in the morning and 1 drop in the evening. 11/16/21 Historical Provider, CHRONIC NARCOTIC USE: No Allergies: Morphine If patient has opioid allergy, is it okay to take Acetaminophen: Yes Social History: TOBACCO: reports that she quit smoking about 55 years ago. Her smoking use included cigarettes. She has never used smokeless tobacco. ETOH: reports no history of alcohol use. Social History Substance and Sexual Activity Drug Use Never Family History: Family History Problem Relation Name Age of Onset Heart disease Father REVIEW OF SYSTEMS: Review of Systems Constitutional: Negative for chills and fever. HENT: Negative for trouble swallowing. Respiratory: Negative for cough and shortness of breath. Cardiovascular: Negative for chest pain and leg swelling. Gastrointestinal: Negative for abdominal pain, nausea and vomiting. Skin: Negative for rash. Neurological: Negative for seizures and weakness. Physical Exam: Physical Exam Constitutional: Appearance: Normal appearance. HENT: Head: Normocephalic and atraumatic. Mouth/Throat: Mouth: Mucous membranes are moist. Pharynx: Oropharynx is clear. Eyes: Pupils: Pupils are equal, round, and reactive to light. Cardiovascular: Rate and Rhythm: Normal rate. Pulses: Normal pulses. Pulmonary: Effort: Pulmonary effort is normal. Abdominal: General: Bowel sounds are normal. Musculoskeletal: General: Normal range of motion. Cervical back: Normal range of motion. Skin: General: Skin is warm and dry. Capillary Refill: Capillary refill takes less than 2 seconds. Neurological: General: No focal deficit present. Mental Status: She is alert and oriented to person, place, and time. Psychiatric: Behavior: Behavior normal. Vitals: Vitals Value Taken Time BP 107/49 12/08/22 1315 Temp 35.9 C (96.6 F) 12/08/22 1315 Pulse 62 12/08/22 1315 Resp 22 12/08/22 1315 SpO2 95 % 12/08/22 1315 Labs: Ordered per PAT protocol Thomas's Simple Cardiac Risk Index: THOMAS'S SIMPLE CARDIAC RISK SCORE: 4 Interpretation: 0 Points Class I 0.5% 1 Point Class II 1.3% 2 Points Class III 3.6% 3+ Points Class IV 9.1% PAT Pain Score: Postop Pain Management Plan (Pain consult ordered?): Pain consult not indicated at this time ? EKG: completed per PAT protocol Interpretation Summary IMPRESSION: A-V dual-paced complexes w/ some inhibition ECG Measurements QRSD Interval: 173 ms QT Interval: 503 ms QTC Interval: 533 ms Heart Rate: 67 bpm P [place]: 215 degrees QRS [place]: -42 degrees T Wave [place]: 105 degrees Cath report from 11/22/22 METS <4 Electronically signed by: Niru Sen, ADDICTION MEDICINE PHYSICIAN - SHELLFISH PROCESSING MACHINE TENDER Date: 12/08/2022 at 1:53 PM documented in this encounter [facility] 12-11-2022 History of Present illness Narrative Patient was seen today via Telehealth by agreement and consent. I used the following Telehealth technology: Audio capability only. Total length of call 20 minutes. The patient was offered and advised video for a more comprehensive evaluation, but the patient declined or was unable to use video. Patient location: Home. This patient encounter is appropriate and reasonable under the circumstances given the patient's particular presentation at this time. The patient has been advised of the potential risks and limitations of this mode of treatment (including but not limited to the absence of in-person examination) and has agreed to be treated in a remote fashion in spite of them. Any and all of the patient's/patient's family's questions on this issue have been answered and I have made no promises or guarantees to the patient. The patient has also been advised to contact this office for worsening conditions or problems, and seek emergency medical treatment and/or call 911 if the patient deems either necessary. The patient stated that they are currently in the [facility]. If the patient is a minor, permission has been obtained by the parent or guardian for the patient to receive medical care at this visit. Discussed her CT scans No findings to preclude surgical intervention She understands Danielle Chou MD Cardiothoracic Surgery documented in this encounter [facility] 12-11-2022 Telephone encounter Note Called pt insurance company and verified authorization for surgery scheduled for 12/14/22. Pt has been approved for inpatient surgery from 12/14-12/18/22. Authorization number is [id number]. Pt notified. [facility] 12-11-2022 Miscellaneous Notes Called pt insurance company and verified authorization for surgery scheduled for 12/14/22. Pt has been approved for inpatient surgery from 12/14-12/18/22. Authorization number is [id number]. Pt notified. Pt is calling to ask if the surgery has been pre approved through her insurance. Prep for Procedure Order Request: 12/01/22 Surgeon: Dr. Chou Surgery/Procedure: CABG, mitral valve repair & ELA Plan Admit: Yes PAT Appointment: 12/08/22 at 12:30 PM Date if yes: Date of Surgery/Procedure: 12/15/22 at 7:00 AM Medication needed held: [] None [x] Other: Eliquis Medication needed prescribed: [] None [x] Nasal ointment and mouth rinse [] [facility] documented in this encounter [facility] 12-08-2022 Telephone encounter Note Pt is calling to ask if the surgery has been pre approved through her insurance. [facility] 12-08-2022 Note Patient: Dayana gibson Procedure Information Date/Time: 12/14/22 0700 Procedures: CABG, MITRAL VALVE REPAIR, ELA (Chest) Echocardiography transesophageal real-time VALVULOPLASTY MITRAL VALVE WITH CARDIOPULMONARY BYPASS (Chest) Location: [facility] Operating Room Surgeons: Danielle Chou MD Relevant Problems Anesthesia (within normal limits) Cardio (+) CAD in [place] artery Past Medical History: Past Medical History: No date: Anxiety No date: Atherosclerosis of coronary artery bypass graft of [place] heart without angina pectoris No date: Hypertension No date: Ischemic cardiomyopathy No date: Mobitz type II atrioventricular block 11/16/2018: STEMI (ST elevation myocardial infarction) (HCC) No date: Vertigo Past Surgical History: Past Surgical History: 08/02/2018: CARDIAC PACEMAKER PLACEMENT 12/19/2018: CORONARY STENT PLACEMENT Social History: TOBACCO: reports that she quit smoking about 55 years ago. Her smoking use included cigarettes. She has never used smokeless tobacco. ETOH: reports no history of alcohol use. Social History Substance and Sexual Activity Drug Use Never Family History: Family History Problem Relation Name Age of Onset ? Heart disease Father Screening: unknown Clinical information reviewed: Physical Exam Airway Mallampati: II TM distance: >3 FB Neck ROM: full Mouth Open: normal Cardiovascular Dental (+) Upper Partials, Missing, Poor Comments: Multiple missing. Nothing is loose. Upper partial. Pulmonary Abdominal Anesthesia Plan patient is NPO appropriate Any family history or previous problems with anesthesia no ASA 4 general Any family history or previous problems with anesthesia no The patient is not a current smoker. Anesthetic plan and risks discussed with patient. Anesthesia Chang Considerations EF 30% Mild-mod MR per paper chart ERAS Type No ERAS ARTHUR Screening negative Labs: Ordered per PAT protocol EKG completed per PAT protocol A-V dual-paced complexes w/ some inhibition [facility] 12-08-2022 Note Comprehensive Pre Schwarz rgical History and Physical ? Name: Dayana Quiñones : 1940 (Age-82 y.o.) Date of Service: Pt seen/examined on 12/08/2022 Procedure Information Date/Time: 12/14/22 0700 Procedures: CABG, MITRAL VALVE REPAIR, ELA (Chest) Echocardiography transesophageal real-time VALVULOPLASTY MITRAL VALVE WITH CARDIOPULMONARY BYPASS (Chest) Location: [facility] Operating Room Surgeons: Danielle Chou MD Chief Complaint: Atherosclerotic heart disease of [place] coronary artery without angina pectoris Nonrheumatic aortic (valve) stenosis ASSESSMENT/PLAN: Patient is considered intermediate risk for this high risk procedure/surgery () with no reducible risk factors. Based on the above evaluation, the benefits of the planned procedure likely exceed the risks. The patient is medically optimized to proceed with the planned procedure without any further cardiopulmonary testing. 1) Atherosclerotic heart disease of [place] coronary artery without angina pectoris Nonrheumatic aortic (valve) stenosis - Managed per surgery 2) CAD/ Pacemaker/ CHF/ HLD/ HTN Eliquis (surgeon instructed to hold 5 days) ASA 81 mg (per M Chiqui ADDICTION MEDICINE PHYSICIAN orders- hold DOS) Lipitor Coreg Entresto Lasix Farxiga 3) GERD Prilosec Visit Type: Pre-Admission Testing Visit Labs Ordered: YES - PER PAT PROTOCOL Sleep Referral Ordered: NO - NEGATIVE SCREEN PER SLEEP REFERRAL PROTOCOL Total time spent (which include face to face and non face to face encounters) : 45 minutes Toxic drug monitoring/narrow therapeutic index drug monitoring : # Drug name : multiple # Route administered : oral # Method of monitoring : labs/ ekg PAT Protocol referenced includes: 1. Anesthesia Lab Protocol Orders 2. Perioperative Cardiovascular Risk Assessment 3. Anesthesia Assessment 4. Pain Assessment and Acute Pain Service Consult (if appropriate) 5. Medical Clearance/Consult from Internal Medicine (IMS) 6. Shower/Wash Order (for designated surgeries) 7. ARTHUR Screen and Sleep Clinic Referral (if appropriate) History Of Present Illness: 82 y.o. female who we are asked to see/evaluate by Elieser Chou for pre-operative evaluation prior to above procedure. ? Denies history of TIA, CVA Past Medical History: Past Medical History: No date: Anxiety No date: Atherosclerosis of coronary artery bypass graft of [place] heart without angina pectoris No date: Chronic kidney disease No date: GERD (gastroesophageal reflux disease) No date: Hypertension No date: Ischemic cardiomyopathy No date: Mobitz type II atrioventricular block 11/16/2018: STEMI (ST elevation myocardial infarction) (HCC) No date: Stroke (HCC) No date: Vertigo Past Surgical History: Past Surgical History: No date: BACK SURGERY Comment: fusion 08/02/2018: CARDIAC PACEMAKER PLACEMENT 12/19/2018: CORONARY STENT PLACEMENT Comment: total of 4 on different occasions Medications Prior to Admission: Prior to Admission medications Medication Sig Start Date End Date Taking? Authorizing Provider apixaban (Eliquis) 5 MG tablet Take 5 mg by mouth daily. 09/19/22 Historical Provider, aspirin 81 MG EC tablet Take 81 mg by mouth in the morning. Historical Provider, atorvastatin (Lipitor) 20 MG tablet Take 20 mg by mouth daily. Historical Provider, bacitracin-polymyxin b (Polysporin) ointment Apply to affected area daily 12/04/22 12/04/23 Jim Florian APRN - SHELLFISH PROCESSING MACHINE TENDER carvedilol (Coreg) 12.5 MG tablet Take 1 tablet by mouth in the morning and 1 tablet in the evening. Take with meals. 11/14/22 Historical Provider, chlorhexidine (Peridex) 0.12 % solution Use 15 mL in the mouth or throat Once for 1 dose. Swish for 30 seconds and spit out the night before surgery. Do not swallow. 12/04/22 12/04/22 Jim Florian APRN - JOELLE dapagliflozin (Farxiga) 10 MG Take 10 mg by mouth daily (with breakfast). Historical Provider, difluprednate (Durezol) 0.05 % ophthalmic solution Administer 1 drop into the left eye every other day. Historical Provider, furosemide (Lasix) 40 MG tablet Take 40 mg by mouth daily. 11/07/22 Historical Provider, omeprazole (PriLOSEC) [address] capsule Take 40 mg by mouth in the morning. 11/14/22 Historical Provider, sacubitril-valsartan (Entresto) 24-26 MG tablet Take 1 tablet by mouth in the morning and 1 tablet in the evening. Historical Provider, timolol (Timoptic) 0.5 % ophthalmic solution Administer 1 drop into the left eye in the morning and 1 drop in the evening. 11/16/21 Historical Provider, CHRONIC NARCOTIC USE: No Allergies: Morphine If patient has opioid allergy, is it okay to take Acetaminophen: Yes Social History: TOBACCO: reports that she quit smoking about 55 years ago. Her smoking use included cigarettes. She has never used smokeless tobacco. ETOH: reports no hi (more content not included)... [facility] 12-08-2022 Note Comprehensive Pre Schwarz rgical History and Physical ? Name: Dayana Quiñones : 1940 (Age-82 y.o.) Date of Service: Pt seen/examined on 12/08/2022 Procedure Information Date/Time: 12/14/22 0700 Procedures: CABG, MITRAL VALVE REPAIR, ELA (Chest) Echocardiography transesophageal real-time VALVULOPLASTY MITRAL VALVE WITH CARDIOPULMONARY BYPASS (Chest) Location: [address] Operating Room Surgeons: Danielle Chou MD Chief Complaint: Atherosclerotic heart disease of [place] coronary artery without angina pectoris Nonrheumatic aortic (valve) stenosis ASSESSMENT/PLAN: Patient is considered intermediate risk for this high risk procedure/surgery () with no reducible risk factors. Based on the above evaluation, the benefits of the planned procedure likely exceed the risks. The patient is medically optimized to proceed with the planned procedure without any further cardiopulmonary testing. 1) Atherosclerotic heart disease of [place] coronary artery without angina pectoris Nonrheumatic aortic (valve) stenosis - Managed per surgery 2) CAD/ Pacemaker/ CHF/ HLD/ HTN Eliquis (surgeon instructed to hold 5 days) ASA 81 mg (per M Chiqui ADDICTION MEDICINE PHYSICIAN orders- hold DOS) Lipitor Coreg Entresto Lasix Farxiga 3) GERD Prilosec Visit Type: Pre-Admission Testing Visit Labs Ordered: YES - PER PAT PROTOCOL Sleep Referral Ordered: NO - NEGATIVE SCREEN PER SLEEP REFERRAL PROTOCOL Total time spent (which include face to face and non face to face encounters) : 45 minutes Toxic drug monitoring/narrow therapeutic index drug monitoring : # Drug name : multiple # Route administered : oral # Method of monitoring : labs/ ekg PAT Protocol referenced includes: 1. Anesthesia Lab Protocol Orders 2. Perioperative Cardiovascular Risk Assessment 3. Anesthesia Assessment 4. Pain Assessment and Acute Pain Service Consult (if appropriate) 5. Medical Clearance/Consult from Internal Medicine (IMS) 6. Shower/Wash Order (for designated surgeries) 7. ARTHUR Screen and Sleep Clinic Referral (if appropriate) History Of Present Illness: 82 y.o. female who we are asked to see/evaluate by Elieser Chou for pre-operative evaluation prior to above procedure. ? Denies history of TIA, CVA Past Medical History: Past Medical History: No date: Anxiety No date: Atherosclerosis of coronary artery bypass graft of [place] heart without angina pectoris No date: Chronic kidney disease No date: GERD (gastroesophageal reflux disease) No date: Hypertension No date: Ischemic cardiomyopathy No date: Mobitz type II atrioventricular block 11/16/2018: STEMI (ST elevation myocardial infarction) ([facility]) No date: Stroke ([facility]) No date: Vertigo Past Surgical History: Past Surgical History: No date: BACK SURGERY Comment: fusion 08/02/2018: CARDIAC PACEMAKER PLACEMENT 12/19/2018: CORONARY STENT PLACEMENT Comment: total of 4 on different occasions Medications Prior to Admission: Prior to Admission medications Medication Sig Start Date End Date Taking? Authorizing Provider apixaban (Eliquis) 5 MG tablet Take 5 mg by mouth daily. 09/19/22 Historical Provider, aspirin 81 MG EC tablet Take 81 mg by mouth in the morning. Historical Provider, atorvastatin (Lipitor) 20 MG tablet Take 20 mg by mouth daily. Historical Provider, bacitracin-polymyxin b (Polysporin) ointment Apply to affected area daily 12/04/22 12/04/23 Jim Florian ADDICTION MEDICINE PHYSICIAN - SHELLFISH PROCESSING MACHINE TENDER carvedilol (Coreg) 12.5 MG tablet Take 1 tablet by mouth in the morning and 1 tablet in the evening. Take with meals. 11/14/22 Historical Provider, chlorhexidine (Peridex) 0.12 % solution Use 15 mL in the mouth or throat Once for 1 dose. Swish for 30 seconds and spit out the night before surgery. Do not swallow. 12/04/22 12/04/22 Jim Florian APRN - SHELLFISH PROCESSING MACHINE TENDER dapagliflozin (Farxiga) 10 MG Take 10 mg by mouth daily (with breakfast). Historical Provider, difluprednate (Durezol) 0.05 % ophthalmic solution Administer 1 drop into the left eye every other day. Historical Provider, furosemide (Lasix) 40 MG tablet Take 40 mg by mouth daily. 11/07/22 Historical Provider, omeprazole (PriLOSEC) [address] capsule Take 40 mg by mouth in the morning. 11/14/22 Historical Provider, sacubitril-valsartan (Entresto) 24-26 MG tablet Take 1 tablet by mouth in the morning and 1 tablet in the evening. Historical Provider, timolol (Timoptic) 0.5 % ophthalmic solution Administer 1 drop into the left eye in the morning and 1 drop in the evening. 11/16/21 Historical Provider, CHRONIC NARCOTIC USE: No Allergies: Morphine If patient has opioid allergy, is it okay to take Acetaminophen: Yes Social History: TOBACCO: reports that she quit smoking about 55 years ago. Her smoking use included cigarettes. She has never used smokeless tobacco. ETOH: reports no hi (more content not included)... [facility] 12-08-2022 Note Fady Bradley, [employer] rep, notified of patient having pacemaker and surgery procedure, date and time. Surgery scheduling also notified of patients pacemaker. [facility] 12-01-2022 Note Prep for Procedure O rder Request: 12/01/22 Surgeon: Dr. Chou Surgery/Procedure: CABG, mitral valve repair & ELA Plan Admit: Yes PAT Appointment: 12/08/22 at 12:30 PM Date if yes: Date of Surgery/Procedure: 12/15/22 at 7:00 AM Medication needed held: [] None [x] Other: Eliquis Medication needed prescribed: [] None [x] Nasal ointment and mouth rinse [] Other: [facility] 12-01-2022 Telephone encounter Note Prep for Procedure Order Request: 12/01/22 Surgeon: Dr. Chou Surgery/Procedure: CABG, mitral valve repair & ELA Plan Admit: Yes PAT Appointment: 12/08/22 at 12:30 PM Date if yes: Date of Surgery/Procedure: 12/15/22 at 7:00 AM Medication needed held: [] None [x] Other: Eliquis Medication needed prescribed: [] None [x] Nasal ointment and mouth rinse [] Other: [facility] [place] [id number] Miscellaneous Notes Prep for Procedure Order Request: 12/01/22 Surgeon: Dr. Chou Surgery/Procedure: CABG, mitral valve repair & ELA Plan Admit: Yes PAT Appointment: 12/08/22 at 12:30 PM Date if yes: Date of Surgery/Procedure: 12/15/22 at 7:00 AM Medication needed held: [] None [x] Other: Eliquis Medication needed prescribed: [] None [x] Nasal ointment and mouth rinse [] [facility] this encounter [facility] 11-29-2022 Note Orders Placed This E ncounter Procedures CT chest wo IV contrast Standing Status: Future Standing Expiration Date: 11/30/2023 Order Specific Question: Record Decision Support information? Answer: No Order Specific Question: Decision Support Exception Answer: Emergency Medical Condition (MA) [1] [facility] 11-29-2022 Note [facility] CARDIOVASCULAR & THORACIC SURGERY [address] [facility] [id number] Dept: [phone] Dept Loc: [phone] Visit type: New Reason for Visit: CAD, MV regurgitation Assessment and plan 82 F with progressive shortness of breath on exertion. Workup significant of reduced EF at 30%, 2+ MR, LM and ostial circ disease on cath. Most likely cause of symptoms appear to be cardiac, but etiology isnt exact. Coronary artery disease: I discussed with her and her family the indications, risks, benefits, and perioperative course of a coronary artery bypass grafting. I discussed alternatives including no intervention, medical therapy only, and percutaneous coronary intervention with medications. A surgical revascularization is recommended in her case. On my review of the coronary angiogram, she does have good targets and will need 2 vessel bypass grafts. She is quite functional and is of low to intermediate risk given her age and reduced EF. Plan for PVI and LAAL in addition Mitral valve regurgitation: She does not have overt symptoms of heart failure. I do not think her symptoms are related to her degree of regurgitation. I have offered concomitant mitral valve ring at the time of her operation. She is agreeable. Heart failure, reduced ejection fraction: She has been on medications for 2-3 months without relief of her symptoms. She is cell compensated. She should hold entresto and farxiga a prior. Eliquis should be healed 5 days prior. The risks of the procedure/s include but are not limited to, bleeding, infection, pneumonia, respiratory failure, prolonged Intensive Care Unit stay, multiorgan failure, renal failure needing temporary and/or permanent dialysis, cerebrovascular accident, pulmonary embolism, deep venous thrombosis, cardiac failure or ischemia or arrhythmia, and . Danielle Chou MD Cardiothoracic Surgery History of Present Illness Dayana Quiñones is a 82 y.o. female referred by Dr. Brumfield for CABG and MVR. Per note, pt has history of CAD s/p acute RI and underwent dug-eluting stent to LAD as well as left circumflex artery. In November 2018, she underwent a drug-eluting stent to the right coronary artery. In April 2020, she presented with chest pain and SOB. She underwent a stress test which demonstrated anteroapical ischemia. She also underwent a heart catheterization which demonstrated preserved EF of 60%, patent stents in the ostial left circumflex 70% stenosis. Medical therapy was recommended. Echocardiogram done in May 2021 demonstrated an EF of 30%. Pt saw Cardiology for an urgent appointment in October 2022 for increased SOB. Pt underwent a cardiac catheterization on 11/22/22 which demonstrated distal left main coronary artery and patent stent in the circumflex artery and right coronary artery with reduced left ventricular systolic function estimated EF 30% with moderate mitral regurgitation. Pt is currently taking Eliquis for atrial fibrillation. Pt is here now for an evaluation. Past Medical History Past Medical History: Diagnosis Date Anxiety Atherosclerosis of coronary artery bypass graft of [place] heart without angina pectoris Hypertension Ischemic cardiomyopathy Mobitz type II atrioventricular block STEMI (ST elevation myocardial infarction) (HCC) 11/16/2018 Vertigo Past Surgical History Past Surgical History: Procedure Laterality Date CARDIAC PACEMAKER PLACEMENT 08/02/2018 CORONARY STENT PLACEMENT 12/19/2018 Family History Family History Problem Relation Name Age of Onset Heart disease Father Social History Social History Tobacco Use Smoking status: Former Years: 10.00 Types: Cigarettes Quit date: 1968 Years since quittin.6 Smokeless tobacco: Never Substance Use Topics Alcohol use: Never Drug use: Never Allergies Allergies Allergen Reactions Morphine Other reaction(s): GI Upset, Vomiting vomiting Medications Current Outpatient Medications: apixaban (Eliquis) 5 MG tablet, Take 5 mg by mouth daily., Disp: , Rfl: aspirin 81 MG EC tablet, Take 81 mg by mouth in the morning., Disp: , Rfl: atorvastatin (Lipitor) 20 MG tablet, Take 20 mg by mouth daily., Disp: , Rfl: carvedilol (Coreg) 12.5 MG tablet, Take 1 tablet by mouth in the morning and 1 tablet in the evening. Take with meals., Disp: , Rfl: dapagliflozin (Farxiga) 10 MG, Take 10 mg by mouth daily (with breakfast)., Disp: , Rfl: difluprednate (Durezol) 0.05 % ophthalmic solution, Administer 1 drop into the left eye every other day., Disp: , Rfl: furosemide (Lasix) 40 MG tablet, Take 40 mg by mouth daily., Disp: , Rfl: omeprazole (PriLOSEC) [address] capsule, Take 40 mg by mouth in the morning., Disp: , Rfl: sacubitril-valsartan (Entresto) 24-26 MG tablet, Take 1 tablet by mouth in the morning and 1 tablet in the evening., Disp: , Rfl: timolol (Timoptic) 0. (more content not included)... [facility] 11-14-2022 Note HNO ID: [id number] Author: Silvia Hunter APRN.[facility] Service: ? Author Type: Nurse Practitioner Type: Progress Notes Filed: 11/14/2022 9:34 AM Note Text: 11/14/2022 Patient presents with: Follow Up: 6 month SUBJECTIVE: This is a 82 year old that is here today for Above Complaints. HTN: Patient is compliant with meds Yes Monitors bp at home: Yes. 101/66 today. Ranges from 120-130/60's Denies side effects: Yes. Chest pain: No. Dyspnea: No. Edema: No. Palpitations: No. Syncope: No. Headache: No. Dizziness: No. HEART: Sees [facility] for a hx of complete heart block, pacemaker, and CAD. Last visit on 09/19/2022 with follow-up scheduled for today. Reports she contacted them last week and told them she was feeling SOB and is exhausted all the time and feels lightheaded. HYPERLIPIDEMIA: Patient is taking medications: Yes. Patient is watching diet: Yes. Patient denies myalgias: Yes. Patient denies gi upset: Yes GERD: taking omeprazole as prescribed. Works well to control symptoms CKD: stating well hydrated and eating low salt diet. PAST MEDICAL HISTORY Diagnosis Date Atherosclerotic heart disease of [place] coronary artery without angina pectoris [address] Dr. Brumfield Benign hypertension 07/01/2015 BPPV (benign paroxysmal positional vertigo), unspecified laterality 04/11/2017 CKD (chronic kidney disease) stage 3, GFR 30-59 ml/min ([facility]) Fibrocystic breast disease (FCBD) in female 07/01/2015 Gastroesophageal reflux disease 07/01/2015 Herpes zoster keratoconjunctivitis 07/01/2015 Hyperlipidemia 2019 Ischemic cardiomyopathy Neutrophilia 12/22/2016 Normally functioning cardiac pacemaker present 11/01/2018 Paroxysmal atrial flutter (HCC) Presence of permanent cardiac pacemaker 2019 Shingles 12/27/2014 ST elevation (STEMI) myocardial infarction involving left anterior descending coronary artery (HCC) 2019 ALLERGIES Morphine MEDICATIONS Current Outpatient Medications Medication Sig sacubitril-valsartan (ENTRESTO) 24-26 mg tablet Take 1 tablet by mouth twice daily. apixaban (ELIQUIS) 5 mg tab(s) Take 5 mg by mouth twice daily. dapagliflozin propanediol (FARXIGA) 10 mg tablet Take 10 mg by mouth daily with breakfast. furosemide (LASIX) 40 mg tablet Take 40 mg by mouth once daily. carvedilol (COREG) 3.125 mg tablet Take 12.5 mg by mouth twice daily. omeprazole (PRILOSEC) 40 mg capsule Take 1 capsule by mouth once daily. timolol maleate (TIMOPTIC) 0.5 % ophthalmic solution Use 1 Drop in the left eye twice daily. atorvastatin (LIPITOR) 20 mg tablet Take 20 mg by mouth daily at bedtime. Cholecalciferol, Vitamin D3, 2,000 unit cap Take 1 capsule by mouth once daily. aspirin, enteric coated (ASPIRIN, ENTERIC COATED) 81 mg EC tablet Take 81 mg by mouth once daily. acyclovir (ZOVIRAX) 800 mg tablet Take 1 tablet by mouth twice daily. Take at first signs of outbreak. losartan-hydroCHLOROthiazide (HYZAAR) 50-12.5 mg per tablet Take 1 tablet by mouth once daily. betamethasone dipropionate (DIPROSONE) 0.05 % cream Apply to affected area twice daily as needed. clopidogrel (PLAVIX) 75 mg tablet Take 75 mg by mouth once daily. (Patient not taking: Reported on 11/14/2022) meclizine (ANTIVERT) 25 mg tab Take 1 tablet by mouth three times daily as needed (dizziness). Difluprednate 0.05 % drop Use 1 Drop in the left eye as directed. Every other day. COMPOUNDED PRESCRIPTION 1 Drop. Every other day-left eye No current facility-administered medications for this visit. Medications and allergies reviewed by this provider. SOCIAL HISTORY Social History Tobacco Use Smoking status: Former Types: Cigarettes Quit date: 04/30/1967 Years since quittin.5 Smokeless tobacco: Never Vaping Use Vaping Use: Never used Substance Use Topics Alcohol use: No Drug use: Never REVIEW OF SYSTEMS All other reviewed and negative other than HPI. OBJECTIVE: BP 106/66 Pulse (!) 57 Resp 18 Wt 77.8 kg (171 lb 9.6 oz) SpO2 97% BMI 30.40 kg/m? . Vital signs reviewed by this provider. APPEARANCE Well appearing, alert, in no acute distress, well-hydrated, well nourished. EYES conjunctiva and sclera normal. HEART RRR with normal S1 and S2, no murmurs, no gallops, no JVD appreciated LUNG clear to auscultation. No wheezes, rhonchi or rales EXTREMITIES Extremities normal, No deformities, No skin discoloration, No edema SKIN Skin color, texture, turgor normal, no suspicious rashes or lesions to exposed skin ADVANCE DIRECTIVE DISCUSSION Never done DEPRESSION ASSESSMENT Never done COVID-19 VACCINE(5 - Moderna series) due on 09/30/2022 DTAP,TDAP,TD(1 - Tdap) due on 05/17/2023 INFLUENZA(1) due on 12/29/2022 DIABETES SCREEN due on 05/17/2025 BONE DENSITY Completed PNEUMOCOCCAL: 65+ Completed SHINGRIX VACCINE Discontinued ASSESSMENT/PLAN: 1. Benign hypertension - ICD9: 401.1, ICD10: I10 (primary diagnosis) - Controlled - Continue cur (more content not included)... [facility] 11-14-2022 History of Present illness Narrative 11/14/2022 Patient presents with: Follow Up: 6 month SUBJECTIVE: This is a 82 year old that is here today for Above Complaints. HTN: Patient is compliant with meds Yes Monitors bp at home: Yes. 101/66 today. Ranges from 120-130/60's Denies side effects: Yes. Chest pain: No. Dyspnea: No. Edema: No. Palpitations: No. Syncope: No. Headache: No. Dizziness: No. HEART: Sees [facility] for a hx of complete heart block, pacemaker, and CAD. Last visit on 09/19/2022 with follow-up scheduled for today. Reports she contacted them last week and told them she was feeling SOB and is exhausted all the time and feels lightheaded. HYPERLIPIDEMIA: Patient is taking medications: Yes. Patient is watching diet: Yes. Patient denies myalgias: Yes. Patient denies gi upset: Yes GERD: taking omeprazole as prescribed. Works well to control symptoms CKD: stating well hydrated and eating low salt diet. PAST MEDICAL HISTORY Diagnosis Date Atherosclerotic heart disease of [place] coronary artery without angina pectoris [address] Dr. Brumfield Benign hypertension 07/01/2015 BPPV (benign paroxysmal positional vertigo), unspecified laterality 04/11/2017 CKD (chronic kidney disease) stage 3, GFR 30-59 ml/min (HCC) Fibrocystic breast disease (FCBD) in female 07/01/2015 Gastroesophageal reflux disease 07/01/2015 Herpes zoster keratoconjunctivitis 07/01/2015 Hyperlipidemia 2019 Ischemic cardiomyopathy Neutrophilia 12/22/2016 Normally functioning cardiac pacemaker present 11/01/2018 Paroxysmal atrial flutter (HCC) Presence of permanent cardiac pacemaker 2019 Shingles 12/27/2014 ST elevation (STEMI) myocardial infarction involving left anterior descending coronary artery (HCC) 2019 ALLERGIES Morphine MEDICATIONS Current Outpatient Medications Medication Sig sacubitril-valsartan (ENTRESTO) 24-26 mg tablet Take 1 tablet by mouth twice daily. apixaban (ELIQUIS) 5 mg tab(s) Take 5 mg by mouth twice daily. dapagliflozin propanediol (FARXIGA) 10 mg tablet Take 10 mg by mouth daily with breakfast. furosemide (LASIX) 40 mg tablet Take 40 mg by mouth once daily. carvedilol (COREG) 3.125 mg tablet Take 12.5 mg by mouth twice daily. omeprazole (PRILOSEC) 40 mg capsule Take 1 capsule by mouth once daily. timolol maleate (TIMOPTIC) 0.5 % ophthalmic solution Use 1 Drop in the left eye twice daily. atorvastatin (LIPITOR) 20 mg tablet Take 20 mg by mouth daily at bedtime. Cholecalciferol, Vitamin D3, 2,000 unit cap Take 1 capsule by mouth once daily. aspirin, enteric coated (ASPIRIN, ENTERIC COATED) 81 mg EC tablet Take 81 mg by mouth once daily. acyclovir (ZOVIRAX) 800 mg tablet Take 1 tablet by mouth twice daily. Take at first signs of outbreak. losartan-hydroCHLOROthiazide (HYZAAR) 50-12.5 mg per tablet Take 1 tablet by mouth once daily. betamethasone dipropionate (DIPROSONE) 0.05 % cream Apply to affected area twice daily as needed. clopidogrel (PLAVIX) 75 mg tablet Take 75 mg by mouth once daily. (Patient not taking: Reported on 11/14/2022) meclizine (ANTIVERT) 25 mg tab Take 1 tablet by mouth three times daily as needed (dizziness). Difluprednate 0.05 % drop Use 1 Drop in the left eye as directed. Every other day. COMPOUNDED PRESCRIPTION 1 Drop. Every other day-left eye No current facility-administered medications for this visit. Medications and allergies reviewed by this provider. SOCIAL HISTORY Social History Tobacco Use Smoking status: Former Types: Cigarettes Quit date: 04/30/1967 Years since quittin.5 Smokeless tobacco: Never Vaping Use Vaping Use: Never used Substance Use Topics Alcohol use: No Drug use: Never REVIEW OF SYSTEMS All other reviewed and negative other than HPI. OBJECTIVE: BP 106/66 Pulse (!) 57 Resp 18 Wt 77.8 kg (171 lb 9.6 oz) SpO2 97% BMI 30.40 kg/m . Vital signs reviewed by this provider. APPEARANCE Well appearing, alert, in no acute distress, well-hydrated, well nourished. EYES conjunctiva and sclera normal. HEART RRR with normal S1 and S2, no murmurs, no gallops, no JVD appreciated LUNG clear to auscultation. No wheezes, rhonchi or rales EXTREMITIES Extremities normal, No deformities, No skin discoloration, No edema SKIN Skin color, texture, turgor normal, no suspicious rashes or lesions to exposed skin ADVANCE DIRECTIVE DISCUSSION Never done DEPRESSION ASSESSMENT Never done COVID-19 VACCINE(5 - Moderna series) due on 09/30/2022 DTAP,TDAP,TD(1 - Tdap) due on 05/17/2023 INFLUENZA(1) due on 12/29/2022 DIABETES SCREEN due on 05/17/2025 BONE DENSITY Completed PNEUMOCOCCAL: 65+ Completed SHINGRIX VACCINE Discontinued ASSESSMENT/PLAN: 1. Benign hypertension - ICD9: 401.1, ICD10: I10 (primary diagnosis) - Controlled - Continue current medications - Recommend home blood pressure monitoring, to bring results to next visit - Encouraged sodium restriction, DASH or Mediterranean diet - Recommend regular aerobic exercise - Discussed need for and benefit of weight loss. BMI 30.40 kg/(m^2) - Follow up in 6 months for hypertension visit 2. GERD without esophagitis - ICD9: 530.81, ICD10: K21.9 - stable on current regime - OMEPRAZOLE 40 MG CAPSULE,DELAYED RELEASE 3. Hyperlipidemia LDL goal <100 - ICD9: 272.4, ICD10: E78.5 - Control undetermined, due for labs - Continue current medications - Counseled on healthy diet and regular exercise - Discussed need for and benefit of weight loss. BMI 30.40 kg/(m^2) - Follow up in 6 months, sooner should any other issues arise. - LIPID PANEL BASIC 4. Hypocalcemia - ICD9: 275.41, ICD10: E83.51 - noted to be low on recent blood work,, obtain CMP so it can be corrected for albumin - COMP METABOLIC PANEL 5. Complete heart block (HCC) - ICD9: 426.0, ICD10: I44.2 - follow-up with cardiology as scheduled today to discuss concerns 6. Ischemic cardiomyopathy - ICD9: 414.8, ICD10: I25.5 - plan as in #5 7. Stage 3a chronic kidney disease (HCC) - ICD9: 585.3, ICD10: N18.31 - eGFR: Stable - Counseled on avoiding NSAIDs, adequate hydration - Follow-up in 6 months sooner if needed Silvia Podlogar, ADDICTION MEDICINE PHYSICIAN.[employer]LL[employer] PROCESSING MACHINE TENDER Prescription instructions reviewed with patient as applicable. Patient advised if symptoms do not improve or if symptoms worsen sooner, to contact their primary care physician. Potential red flag symptoms discussed with the patient. Reviewed appropriate action plan to take if red flag symptoms occur. Patient agreeable to treatment plan. I spent a total of 25 minutes on the date of the service which included preparing to see the patient, [id number] patient care, completing clinical documentation, obtaining and/or reviewing separately obtained history, performing a medically appropriate examination, counseling and educating the patient/family/caregiver, and ordering medications, tests, or procedures. documented in this encounter [facility] 06-02-2022 Note HNO ID: [id number] Author: Yaneli Malagon LPN Service: ? Author Type: ? Type: Progress Notes Filed: 06/05/2022 11:48 AM Note Text: Patient presents for flu and COVID vaccines. Denies any problems at this time. Tolerated injections well. Yaneli Malagon LPN [facility] 06-02-2022 History of Present illness Narrative Patient presents for flu and COVID vaccines. Denies any problems at this time. Tolerated injections well. Yaneli Malagon LPN documented in this encounter [facility] 05-29-2022 Miscellaneous Notes Phoned patient and advised her of provider's message. She stated Dr Gan said Dr Brumfield should be handling the issue. I advised patient that a pulmonary issue typically would be pulmonology that handles the issue. Patient stated she will follow up with Brissa's office and if he advises her to follow up with Dr Gan then she will. Advised her xray is being forwarded to Dr Gan's office. Patient voiced understanding. I see she met with pulmonology and they did obtain PFTs. Looks like she was evaluated for SOB and referred back to cardiology. They do not make mention of pulmonary fibrosis. They wanted to see her back in 3 months. Recommend she schedule f/u appointment. Please fax imaging results to her pleating supervisor's office. Pt called and is notified of providers results and instructions. Pt states she saw pulmonary about a year ago for the same issue and Dr Gan told her that her scrap baller had to take care of everything. She states she has been working with Dr Brumfield and [facility]. They are trying to change her blood thinner. Faxed x-ray of chest to Dr Brumfield at [phone]. Pt doesn't know if she went to see Pulmonary again if she would get any different results. Genesis Oliva RN Patient's chest xray is stable with evidence of pulmonary fibrosis and mildly enlarged heart. No evidence of pneumonia. Further workup would include pulmonary function testing and referral to pulmonology. documented in this encounter [facility] 05-26-2022 Note HNO ID: [id number] Author: Isis Herbert RT(R) Service: Nuclear Medicine Author Type: Technologist Type: Progress Notes Filed: 05/26/2022 1:01 PM Note Text: Radiology Service Progress Note PATIENT NAME: Dayana Quiñones DATE OF SERVICE: May 26, 2022 TIME: 12:52 PM PATIENT IDENTITY VERIFICATION COMPLETED USING TWO (2) IDENTIFIERS: Name and Date of confirmed by patient verbally. FALL SCREENING: Has the patient had 2 falls in the last year or 1 fall with injury or currently using an Ambulatory Assistive Device (Walker, Cane, Wheelchair, Crutches, etc.)? No PATIENT GENDER DATA: Female. status: : No status: NO. PATIENT RELEVANT IMPLANT DATA REVIEWED: Not Applicable RADIOLOGY DEPARTMENT: General X-ray: Exam(s) Completed: Chest X-Ray PERIPHERAL IV DATA: Not applicable SIGNED BY: Isis Herbert RT(R) May 26, 2022 12:52 PM [facility] 05-18-2022 Miscellaneous Notes Phoned patient and reviewed provider's message with her multiple times until she was comfortable with understanding recommendations. If her cough continues, I would get repeat CXR next week. If cough resolves, will wait until 06/02 or cancel CXR. Pt and daughter returned call-on phone together. Provider's message given below. Pt states she will be coming in on 06/02/22 for immunizations and asking if Dr. Avery is okay with her having the repeat CXR then? Please advise pt's daughter Radha. Thank you. Phoned patient and no answer or VM. Will attempt to contact patient again later. Patient with very slight elevation in her WBC and neutrophil count still from recent pneumonia. Her lungs sounded clear yesterday and symptoms were improving. I will order a repeat CXR to be completed in 1 week to confirm resolution of this pneumonia. Call if symptoms worsening. Other labs stable. documented in this encounter [facility] 05-17-2022 History of Present illness Narrative Chief Complaint Patient presents with: Follow Up: 6 month follow up Follow up to pneumonia HPI Dayana Quiñones is a 82 year old female who presents here today for Above Complaints.. Patient evaluated at on 05/11 and treated for pneumonia with Augmentin and Doxycycline with following HPI: Patient presents with cough chest congestion and shortness of breath over the past 4 days. No fever that she knows of. No vomiting or diarrhea. Her is now coughing but she thinks he probably caught it from her. No vomiting or diarrhea. She did just see her scrap baller a week ago and had a good visit. She denies any leg pain or swelling. No home COVID test done. She presents today with her daughter. She is not a smoker, denies asthma or copd. Review of Systems Constitutional: Positive for fatigue. Negative for fever. HENT: Positive for congestion, rhinorrhea and sore throat. Negative for ear pain. Respiratory: Positive for cough and shortness of breath. Negative for chest tightness and wheezing. All other systems reviewed and are negative. Patient states that she has completed her 5 day course of abx and continues to have a dry hacking cough. Cough worst in the morning. Other symptoms have resolved. Taking mucinex lozenges for symptoms. Denies fever/chills, nausea, diarrhea. Notes that her 4 days ago after he too had developed a cough. in his sleep. Patient coping well and has good family support. Sleeping 6-7 hours at night. Not eating as much. Pushing PO fluids. ASHD: managed by Dr. Brumfield's office. No changes to her regimen at last appointment on 05/05. Ordered echo to follow up on her ischemic cardiomyopathy with last EF 30% in 2021. Rescheduled to next week. Taking ASA and plavix without bruising or bleeding. Asymptomatic on medical management. BP controlled on current regimen. Past medical history, appointments, medications, allergies reviewed. Previous Medical History PAST MEDICAL HISTORY Diagnosis Date Atherosclerotic heart disease of [place] coronary artery without angina pectoris 2018 Benign hypertension 07/01/2015 BPPV (benign paroxysmal positional vertigo), unspecified laterality 04/11/2017 CKD (chronic kidney disease) stage 3, GFR 30-59 ml/min ([facility]) Fibrocystic breast disease (FCBD) in female 07/01/2015 Gastroesophageal reflux disease 07/01/2015 Herpes zoster keratoconjunctivitis 07/01/2015 Hyperlipidemia 2019 Neutrophilia 12/22/2016 Normally functioning cardiac pacemaker present 11/01/2018 Presence of permanent cardiac pacemaker 2019 Shingles 12/27/14 ST elevation (STEMI) myocardial infarction involving left anterior descending coronary artery (HCC) 2019 Previous Surgical History PAST SURGICAL HISTORY Procedure Laterality Date ANESTH,PACEMAKER INSERTION DRUG-ELUTING STENTS,EACH ADD LOW BACK DISK SURGERY 04/30/1993 TONSILLECTOMY AND ADENOIDECTOMY HX 04/30/1944 Family History FAMILY HISTORY Problem Relation Age of Onset Hyperlipidemia Mother No Known Problems Sister Hyperlipidemia Sister Heart disease Sister Coronary Artery Disease Sister Heart disease Sister Heart Attack Brother Melanoma Brother No Known Problems Son No Known Problems Daughter No Known Problems Daughter Patient Allergies ALLERGIES Allergen Reactions Morphine GI Upset vomiting Current Medications Current Outpatient Medications on File Prior to Visit Medication Sig carvedilol (COREG) 3.125 mg tablet Take 3.125 mg by mouth twice daily. losartan-hydroCHLOROthiazide (HYZAAR) 50-12.5 mg per tablet Take 1 tablet by mouth once daily. omeprazole (PRILOSEC) 40 mg capsule Take 1 capsule by mouth once daily. timolol maleate (TIMOPTIC) 0.5 % ophthalmic solution Use 1 Drop in the left eye twice daily. betamethasone dipropionate (DIPROSONE) 0.05 % cream Apply to affected area twice daily as needed. clopidogrel (PLAVIX) 75 mg tablet Take 75 mg by mouth once daily. atorvastatin (LIPITOR) 20 mg tablet Take 20 mg by mouth daily at bedtime. meclizine (ANTIVERT) 25 mg tab Take 1 tablet by mouth three times daily as needed (dizziness). Difluprednate 0.05 % drop Use 1 Drop in the left eye as directed. Every other day. Cholecalciferol, Vitamin D3, 2,000 unit cap Take 1 capsule by mouth once daily. COMPOUNDED PRESCRIPTION 1 Drop. Every other day-left eye aspirin, enteric coated (ASPIRIN, ENTERIC COATED) 81 mg EC tablet Take 81 mg by mouth once daily. acyclovir (ZOVIRAX) 800 mg tablet Take 1 tablet by mouth twice daily. Take at first signs of outbreak. No current facility-administered medications on file prior to visit. Social History Social History Tobacco Use Smoking status: Former Types: Cigarettes Quit date: 04/30/1967 Years since quittin.0 Smokeless tobacco: Never Vaping Use Vaping Use: Never used Substance Use Topics Alcohol use: No Drug use: Never Review of Symptoms REVIEW OF SYSTEMS GENERAL: No weight loss, malaise or fevers RESPIRATORY: See HPI CARDIOVASCULAR: Negative for chest pain, leg swelling, hypertension, CHF or palpitations GI: No nausea, vomiting, or diarrhea SKIN: Negative for lesions, rash, and itching EXAM: BP 120/78 Pulse 74 Temp 36.4 C (97.5 F) Resp 20 Wt 75.8 kg (167 lb) SpO2 98% BMI 29.58 kg/m General Appearance: Well appearing, alert, in no acute distress, well-hydrated, well nourished.. Skin: Skin color, texture, turgor normal, no suspicious rashes or lesions. Lungs: Lungs clear to auscultation. No wheezing, rhonchi, rales. No egophony. Heart: RRR without murmur, gallop, or rubs. No ectopy. Abdomen: Normal abdominal exam, Abdomen soft, non-tender. Bowel sounds normal. No masses, organomegaly. Extremities: No deformities, edema, skin discoloration, clubbing or cyanosis. Good capillary refill. . Health Maintenance List DTAP,TDAP,TD(1 - Tdap) Never done COVID-19 VACCINE(4 - Booster for Moderna series) due on 07/22/2021 INFLUENZA(1) due on 12/29/2021 ADVANCE DIRECTIVE DISCUSSION Never done DEPRESSION ASSESSMENT Never done DIABETES SCREEN due on 11/18/2024 BONE DENSITY Completed PNEUMOCOCCAL: 65+ Completed SHINGRIX VACCINE Discontinued Data reviewed Component Latest Ref Rng & Units 05/17/2020 11/18/2021 Protein, Total 6.3 - 8.0 g/dL 7.4 Albumin 3.9 - 4.9 g/dL 4.2 Calcium 8.5 - 10.2 mg/dL 9.5 9.7 Bilirubin, Total 0.2 - 1.3 mg/dL 0.4 Alkaline Phosphatase 34 - 123 U/L 119 AST 13 - 35 U/L 19 Glucose 74 - 99 mg/dL 99 101 (H) BUN 7 - 21 mg/dL 12 19 Creatinine 0.58 - 0.96 mg/dL 1.02 (H) 1.22 (H) Sodium 136 - 144 mmol/L 141 139 Potassium 3.7 - 5.1 mmol/L 4.4 4.6 Chloride 97 - 105 mmol/L 104 101 CO2 22 - 30 mmol/L 25 27 Anion Gap 9 - 18 mmol/L 12 11 ALT 7 - 38 U/L 8 eGFR- >60 eGFR-All Other Races . 52 WBC 3.70 - 11.00 k/uL 11.47 (H) RBC 3.90 - 5.20 m/uL 4.45 Hemoglobin 11.5 - 15.5 g/dL 13.1 Hematocrit 36.0 - 46.0 % 40.9 MCV 80.0 - 100.0 fL 91.9 MCH 26.0 - 34.0 pG 29.4 MCHC 30.5 - 36.0 g/dL 32.0 RDW-CV 11.5 - 15.0 % 13.0 Platelet Count 150 - 400 k/uL 254 MPV 9.0 - 12.7 fL 10.7 Absolute nRBC <0.01 k/uL <0.01 eGFR >=60 mL/min/1.73m 44 (L) Cholesterol, Total <200 mg/dL 145 Triglyceride <150 mg/dL 141 HDL Cholesterol >39 mg/dL 52 Non HDL Cholesterol <130 mg/dL 93 Fasting Time hrs 12 VLDL Cholesterol <30 mg/dL 28 TC:HDL Ratio <5.10 2.79 LDL Cholesterol <100 mg/dL 65 LDL:HDL Ratio <2.54 1.25 Total Cholesterol, Nonfasting <200 mg/dL 150 Triglycerides, Nonfasting <150 mg/dL 125 HDL Cholesterol, Nonfasting >39 mg/dL 67 LDL Cholesterol, Nonfasting <100 mg/dL 58 Non HDL Cholesterol, Nonfasting <130 mg/dL 83 VLDL Cholesterol, Nonfasting <30 mg/dL 25 Total Chol/HDL Ratio, Nonfasting <5.10 mg/dL 2.24 LDL/HDL Ratio, Nonfasting <2.54 mg/dL 0.87 ASSESSMENT/PLAN: 1. Bacterial pneumonia - ICD9: 482.9, ICD10: J15.9 (primary diagnosis) Symptoms improving after completion of abx. Normal exam today. Discussed use of delsym or mucinex OTC for cough. Call if symptoms change or worsen. Red flags for re-assessment reviewed with patient in detail. 2. Grief reaction - ICD9: 309.0, ICD10: F43.21 Patient coping well with recent loss of her . Has good family support. Encouraged small meals throughout the day to keep her strength up, even if she is not hungry. Call if depression symptoms worsen. 3. Benign hypertension - ICD9: 401.1, ICD10: I10 - good control - Continue current medication(s) - Encouraged dietary sodium restriction/DASH diet - Recommended regular aerobic exercise. - Reviewed risks of HTN and principles of treatment - Goal of BP <130/80 4. Hyperlipidemia LDL goal <100 - ICD9: 272.4, ICD10: E78.5 - good control - Continue current medication. - Encouraged following a low fat, low cholesterol diet. - Discussed the benefits of regular aerobic exercise and weight loss. 5. Stage 3a chronic kidney disease (HCC) - ICD9: 585.3, ICD10: N18.31 - eGFR: Stable - Counseled on avoiding regular use of NSAIDs, adequate hydration, potential risk of IV dye - Recommend maintaining blood pressure under 130/80 - Counseled on renal diet (low sodium/low potassium/low phosphorus) - CBC + DIFF - COMP METABOLIC PANEL 6. ASHD (arteriosclerotic heart disease) - ICD9: 414.00, ICD10: I25.10 Asymptomatic on medical management per Dr. Brumfield's office. Continue current regimen. F/u with echo as recommended. Red flags for re-assessment reviewed with patient in detail. 7. Ischemic cardiomyopathy - ICD9: 414.8, ICD10: I25.5 See above. Amalia Avery MD documented in this encounter [facility] 05-11-2022 History of Present illness Narrative This note was created using Tapletriter. Subjective Dayana Quiñones is a 82 year old female Patient presents with cough chest congestion and shortness of breath over the past 4 days. No fever that she knows of. No vomiting or diarrhea. Her is now coughing but she thinks he probably caught it from her. No vomiting or diarrhea. She did just see her scrap baller a week ago and had a good visit. She denies any leg pain or swelling. No home COVID test done. She presents today with her daughter. She is not a smoker, denies asthma or copd. Review of Systems Constitutional: Positive for fatigue. Negative for fever. HENT: Positive for congestion, rhinorrhea and sore throat. Negative for ear pain. Respiratory: Positive for cough and shortness of breath. Negative for chest tightness and wheezing. All other systems reviewed and are negative. PAST MEDICAL HISTORY Diagnosis Date Atherosclerotic heart disease of [place] coronary artery without angina pectoris 2018 Benign hypertension 07/01/2015 BPPV (benign paroxysmal positional vertigo), unspecified laterality 04/11/2017 CKD (chronic kidney disease) stage 3, GFR 30-59 ml/min ([facility]) Fibrocystic breast disease (FCBD) in female 07/01/2015 Gastroesophageal reflux disease 07/01/2015 Herpes zoster keratoconjunctivitis 07/01/2015 Hyperlipidemia 2019 Neutrophilia 12/22/2016 Normally functioning cardiac pacemaker present 11/01/2018 Presence of permanent cardiac pacemaker 2019 Shingles 12/27/14 ST elevation (STEMI) myocardial infarction involving left anterior descending coronary artery ([facility]) 2018 Current Outpatient Medications Medication Sig Dispense Refill carvedilol (COREG) 3.125 mg tablet Take 3.125 mg by mouth twice daily. losartan-hydroCHLOROthiazide (HYZAAR) 50-12.5 mg per tablet Take 1 tablet by mouth once daily. omeprazole (PRILOSEC) 40 mg capsule Take 1 capsule by mouth once daily. 90 capsule 3 timolol maleate (TIMOPTIC) 0.5 % ophthalmic solution Use 1 Drop in the left eye twice daily. betamethasone dipropionate (DIPROSONE) 0.05 % cream Apply to affected area twice daily as needed. 45 g 2 clopidogrel (PLAVIX) 75 mg tablet Take 75 mg by mouth once daily. atorvastatin (LIPITOR) 20 mg tablet Take 20 mg by mouth daily at bedtime. meclizine (ANTIVERT) 25 mg tab Take 1 tablet by mouth three times daily as needed (dizziness). 40 tablet 1 Difluprednate 0.05 % drop Use 1 Drop in the left eye as directed. Every other day. Cholecalciferol, Vitamin D3, 2,000 unit cap Take 1 capsule by mouth once daily. 30 capsule 12 COMPOUNDED PRESCRIPTION 1 Drop. Every other day-left eye aspirin, enteric coated (ASPIRIN, ENTERIC COATED) 81 mg EC tablet Take 81 mg by mouth once daily. acyclovir (ZOVIRAX) 800 mg tablet Take 1 tablet by mouth twice daily. Take at first signs of outbreak. doxycycline monohydrate 100 mg tablet Take 1 tablet by mouth twice daily for 5 days. 10 tablet 0 amoxicillin-clavulanic acid (AUGMENTIN) 875-125 mg per tablet Take 1 tablet by mouth twice daily for 5 days. 10 tablet 0 No current facility-administered medications for this visit. PAST SURGICAL HISTORY Procedure Laterality Date ANESTH,PACEMAKER INSERTION DRUG-ELUTING STENTS,EACH ADD LOW BACK DISK SURGERY 04/30/1993 TONSILLECTOMY AND ADENOIDECTOMY HX 04/30/1944 FAMILY HISTORY Problem Relation Age of Onset Hyperlipidemia Mother No Known Problems Sister Hyperlipidemia Sister Heart disease Sister Coronary Artery Disease Sister Heart disease Sister Heart Attack Brother Melanoma Brother No Known Problems Son No Known Problems Daughter No Known Problems Daughter Social History Tobacco Use Smoking status: Former Types: Cigarettes Quit date: 04/30/1967 Years since quittin.0 Smokeless tobacco: Never Vaping Use Vaping Use: Never used Substance Use Topics Alcohol use: No Drug use: Never Objective BP 124/68 Pulse 61 Temp 36.6 C (97.8 F) (Tympanic) Resp 18 Wt 76.7 kg (169 lb) SpO2 97% BMI 29.94 kg/m Physical Exam Vitals reviewed. Constitutional: General: She is not in acute distress. Appearance: Normal appearance. She is not ill-appearing. HENT: Head: Normocephalic and atraumatic. Right Ear: Tympanic membrane, ear canal and external ear normal. Left Ear: Tympanic membrane, ear canal and external ear normal. Nose: Congestion present. Mouth/Throat: Mouth: Mucous membranes are moist. Pharynx: Oropharynx is clear. Cardiovascular: Rate and Rhythm: Normal rate and regular rhythm. Heart sounds: Normal heart sounds. Pulmonary: Effort: Pulmonary effort is normal. No respiratory distress. Breath sounds: Normal breath sounds. No wheezing or rhonchi. Musculoskeletal: Cervical back: Neck supple. Skin: General: Skin is warm and dry. Neurological: General: No focal deficit present. Mental Status: She is alert. Assessment and Plan ASSESSMENT/PLAN: 1. Pneumonia of both lungs due to infectious organism, unspecified part of lung - ICD9: 483.8, ICD10: J18.9 Chest x-ray shows bilateral haziness which could be early pneumonia. I will cover her with Augmentin and doxycycline. CrCl calculated at 42. She has a follow-up on the with her primary doctor already scheduled. She has COVID and flu test pending. If positive for COVID she would be in the window for oral antivirals tomorrow still. Discussed red flags to be seen in the ER with patient and daughter. They are agreeable with plan. - XR CHEST 2V FRONTAL/LAT - COVID WITH FLUA+B, ROUTINE Laura Holbrook PA-C documented in this encounter [facility] 11-21-2021 Miscellaneous Notes Patient telephoned and message below regarding results given. Voices understanding. PCP changed. Kinga Chilel LPN Please call patient and let her know he kidney function is still decreased but improved from May. Continue to avoid NSAID use, eat low fat diet and stay well hydrated. The rest of her blood work is normal. Continue current medications and follow-up as scheduled. Please change PCP to Dr. Avery. Thanks, Silvia Hunter APRN.SHELLFISH PROCESSING MACHINE TENDER documented in this encounter [facility] 11-16-2021 History of Present illness Narrative 11/16/2021 Patient presents with: Transition Of Care Refill Request SUBJECTIVE: This is a 81 year old that is here today for Above Complaints. Since last office appointment has been in good health without ER visits or hopsitalizations HTN: Patient is compliant with meds Yes Monitors bp at home: Yes. 120/ Denies side effects: No. Chest pain: No. Dyspnea: No. Edema: No. Palpitations: No. Syncope: No. Headache: No. Dizziness: No. HEART: Sees [facility] for a hx of complete heart block, pacemaker, and CAD. Last visit in with follow-up in February, scheduled. At her last visit coreg was increased to twice a day. Patient reports improvement in SOB with exertion. Denies dyspnea, cough, orthopnea, chest pain, palpitations or leg edema. GERD: taking omeprazole daily which works well control symptoms. CKD: admits to very rare usage of advil. She reports was told she could use Advil very sparingly for eye pain she gets from hx of shingles in the left eye Past medical, surgical, social hx, medications, allergies and health maintenance reviewed PAST MEDICAL HISTORY Diagnosis Date Atherosclerotic heart disease of [place] coronary artery without angina pectoris 2018 Benign hypertension 07/01/2015 BPPV (benign paroxysmal positional vertigo), unspecified laterality 04/11/2017 CKD (chronic kidney disease) stage 3, GFR 30-59 ml/min ([facility]) Fibrocystic breast disease (FCBD) in female 07/01/2015 Gastroesophageal reflux disease 07/01/2015 Herpes zoster keratoconjunctivitis 07/01/2015 Hyperlipidemia 2019 Neutrophilia 12/22/2016 Normally functioning cardiac pacemaker present 11/01/2018 Presence of permanent cardiac pacemaker 2019 Shingles 12/27/14 ST elevation (STEMI) myocardial infarction involving left anterior descending coronary artery (HCC) 2019 ALLERGIES Morphine MEDICATIONS Current Outpatient Medications Medication Sig carvedilol (COREG) 3.125 mg tablet Take 3.125 mg by mouth twice daily. losartan-hydroCHLOROthiazide (HYZAAR) 50-12.5 mg per tablet Take 1 tablet by mouth once daily. omeprazole (PRILOSEC) 40 mg capsule Take 1 capsule by mouth once daily. clopidogrel (PLAVIX) 75 mg tablet Take 75 mg by mouth once daily. atorvastatin (LIPITOR) 20 mg tablet Take 20 mg by mouth daily at bedtime. meclizine (ANTIVERT) 25 mg tab Take 1 tablet by mouth three times daily as needed (dizziness). Difluprednate 0.05 % drop Use 1 Drop in the left eye as directed. Every other day. Cholecalciferol, Vitamin D3, 2,000 unit cap Take 1 capsule by mouth once daily. COMPOUNDED PRESCRIPTION 1 Drop. Every other day-left eye aspirin, enteric coated (ASPIRIN, ENTERIC COATED) 81 mg EC tablet Take 81 mg by mouth once daily. acyclovir (ZOVIRAX) 800 mg tablet Take 1 tablet by mouth twice daily. Take at first signs of outbreak. betamethasone dipropionate (DIPROSONE) 0.05 % cream Apply to affected area twice daily as needed. No current facility-administered medications for this visit. Medications and allergies reviewed by this provider. SOCIAL HISTORY Social History Tobacco Use Smoking status: Former Smoker Quit date: 04/30/1967 Years since quittin.5 Smokeless tobacco: Never Used Vaping Use Vaping Use: Never used Substance Use Topics Alcohol use: No Drug use: Not on file REVIEW OF SYSTEMS All other reviewed and negative other than HPI. OBJECTIVE: BP 110/66 Pulse 69 Resp 18 Wt 75.8 kg (167 lb) SpO2 96% BMI 29.58 kg/m . Vital signs reviewed by this provider. APPEARANCE Well appearing, alert, in no acute distress, well-hydrated, well nourished. EYES conjunctiva and sclera normal. HEART RRR with normal S1 and S2, no murmurs, no gallops, no JVD appreciated LUNG clear to auscultation. No wheezes, rhonchi, or rales EXTREMITIES Extremities normal, No deformities, No skin discoloration and No edema SKIN Skin color, texture, turgor normal, no suspicious rashes or lesions to exposed skin DTAP,TDAP,TD(1 - Tdap) Never done ADVANCE DIRECTIVE DISCUSSION Never done LDL CHOLESTEROL due on 05/17/2021 COVID-19 VACCINE(4 - Booster for Moderna series) due on 09/24/2021 INFLUENZA(1) due on 12/29/2021 DIABETES SCREEN due on 05/17/2023 BONE DENSITY Completed PNEUMOCOCCAL: 65+ Completed SHINGRIX VACCINE Discontinued ASSESSMENT/PLAN: 1. Encounter to establish care with new doctor - ICD9: V65.8, ICD10: Z76.89 (primary diagnosis) - plan as below - follow-up in [address] Avery, sooner if needed 2. GERD without esophagitis - ICD9: 530.81, ICD10: K21.9 - stable on current medication - OMEPRAZOLE 40 MG CAPSULE,DELAYED RELEASE 3. Hyperlipidemia LDL goal <100 - ICD9: 272.4, ICD10: E78.5 - to be determined upon return of lab results - Continue current medication. - Encouraged following a low fat, low cholesterol diet. - Discussed the benefits of regular aerobic exercise and weight loss. - Follow up in 6 months. - Encouraged following a low carbohydrate, healthy oil intake diet. - LIPID PANEL BASIC 4. Stage 3a chronic kidney disease (HCC) - ICD9: 585.3, ICD10: N18.31 - continue t eat low salt and stay hydrated - should really avoid NSAID use all together and try tylenol instead, verbalizes understanding - BASIC METABOLIC PNL 5. Benign hypertension - ICD9: 401.1, ICD10: I10 - good control - Continue current medication(s) - Encouraged dietary sodium restriction/DASH diet - Recommended regular aerobic exercise. - Recommend home blood pressure monitoring, to bring results in on next visit - Discussed need and benefit for weight loss. - Recheck in 6 months, sooner should new symptoms or problems arise. - Goal of BP <130/80 - Recommended no refined sugar, low refined starch, healthy oil intake (olive oil), healthy protein (fish) along the lines of the Mediterranean diet. 6. Complete heart block (HCC) - ICD9: 426.0, ICD10: I44.2 - follow-up with cardiology as scheduled Silvia Hunter APRN.SHELLFISH PROCESSING MACHINE TENDER Prescription instructions reviewed with patient as applicable. Patient advised if symptoms do not improve or if symptoms worsen sooner, to contact their primary care physician. Potential red flag symptoms discussed with the patient. Reviewed appropriate action plan to take if red flag symptoms occur. Patient agreeable to treatment plan. documented in this encounter [facility] documented as of this encounter (statuses as of 11/16/2021) [facility] History of Past illness Narrative* Problem Noted Date Resolved Date Acute renal failure superimp osed on stage 3 chronic kidney disease 04/12/2017 04/26/2017 Neutrophilia 12/22/2016 12/14/2017 documented as of this encounter (statuses as of 11/21/2021) [facility] History of Past illness Narrative* Problem Noted Date Resolved Date Acute renal failure superimp osed on stage 3 chronic kidney disease 04/12/2017 04/26/2017 Neutrophilia 12/22/2016 12/14/2017 documented as of this encounter (statuses as of 05/11/2022) [facility] History of Past illness Narrative* Problem Noted Date Resolved Date Acute renal failure superimp osed on stage 3 chronic kidney disease 04/12/2017 04/26/2017 Neutrophilia 12/22/2016 12/14/2017 documented as of this encounter (statuses as of 05/17/2022) [facility] History of Past illness Narrative* Problem Noted Date Resolved Date Acute renal failure superimp osed on stage 3 chronic kidney disease 04/12/2017 04/26/2017 Neutrophilia 12/22/2016 12/14/2017 documented as of this encounter (statuses as of 05/18/2022) [facility] History of Past illness Narrative* Problem Noted Date Resolved Date Acute renal failure superimp osed on stage 3 chronic kidney disease 04/12/2017 04/26/2017 Neutrophilia 12/22/2016 12/14/2017 documented as of this encounter (statuses as of 06/05/2022) [facility] History of Past illness Narrative* Problem Noted Date Resolved Date Acute renal failure superimp osed on stage 3 chronic kidney disease 04/12/2017 04/26/2017 Neutrophilia 12/22/2016 12/14/2017 documented as of this encounter (statuses as of 06/15/2022) [facility] of Past illness Narrative* Problem Noted Date Diagnosed Date Resolved Date Acute renal failure superimp osed on stage 3 chronic kidney disease 04/12/2017 04/26/2017 Neutrophilia 12/22/2016 12/14/2017 documented as of this encounter (statuses as of 11/14/2022) [facility] of Past illness Narrative* Problem Noted Date Diagnosed Date Resolved Date Acute renal failure superimp osed on stage 3 chronic kidney disease 04/12/2017 04/26/2017 Neutrophilia 12/22/2016 12/14/2017 documented as of this encounter (statuses as of 03/15/2023) [facility] of Past illness Narrative* Problem Noted Date Diagnosed Date Resolved Date Acute renal failure superimp osed on stage 3 chronic kidney disease 04/12/2017 04/26/2017 Neutrophilia 12/22/2016 12/14/2017 documented as of this encounter (statuses as of 03/17/2023) [facility] of Past illness Narrative* Problem Noted Date Diagnosed Date Resolved Date Acute renal failure superimp osed on stage 3 chronic kidney disease 04/12/2017 04/26/2017 Neutrophilia 12/22/2016 12/14/2017 documented as of this encounter (statuses as of 04/04/2023) [facility] of Past illness Narrative* Problem Noted Date Diagnosed Date Resolved Date Acute renal failure superimp osed on stage 3 chronic kidney disease 04/12/2017 04/26/2017 Neutrophilia 12/22/2016 12/14/2017 documented as of this encounter (statuses as of 04/06/2023) [facility] note* Diagnosis Encounter to establish care with new doctor- Primary Other reasons for seeking consultation GERD without esophagitis Esophageal reflux Hyperlipidemia LDL goal <100 Other and unspecified hyperlipidemia Stage 3a chronic kidney disease (HCC) Benign hypertension Essential hypertension, benign Complete heart block (HCC) Atrioventricular block, complete [facility] [place] [facility] Diagnosis Pneumonia of both lungs due to infectious organism, unspecified part of lung- Primary [facility] [place] [facility]* Diagnosis Bacterial pneumonia- Primary Bacterial pneumonia, unspecified Grief reaction Adjustment disorder with depressed mood Benign hypertension Essential hypertension, benign Hyperlipidemia LDL goal <100 Other and unspecified hyperlipidemia Stage 3a chronic kidney disease (HCC) ASHD (arteriosclerotic heart disease) Coronary atherosclerosis of unspecified type of vessel, [place] or graft Ischemic cardiomyopathy Other specified forms of chronic ischemic heart disease Complete heart block (HCC) Atrioventricular block, complete [facility] [place] [facility]* Diagnosis Bacterial pneumonia- Primary Bacterial pneumonia, unspecified [facility] [place] [facility] Diagnosis Need for vaccination- Primary Need for prophylactic vaccination and inoculation against unspecified single disease Need for influenza vaccination Need for prophylactic vaccination and inoculation against influenza [facility] [place] [facility] Diagnosis 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 [facility] [place] [facility] Diagnosis Benign hypertension- Primary Essential hypertension, benign GERD without esophagitis Esophageal reflux Hyperlipidemia LDL goal <100 Other and unspecified hyperlipidemia Hypocalcemia Complete heart block (HCC) Atrioventricular block, complete Ischemic cardiomyopathy Other specified forms of chronic ischemic heart disease Stage 3a chronic kidney disease (HCC) [facility] [place] [facility]* Diagnosis CAD in [place] artery- Primary Atherosclerotic heart disease of [place] coronary artery without angina pectoris Nonrheumatic aortic (valve) stenosis documented in this encounter [facility] note* Diagnosis Atherosclerotic heart disease of [place] coronary artery without angina pectoris Nonrheumatic mitral (valve) insufficiency Atherosclerotic heart disease of [place] coronary artery without angina pectoris Nonrheumatic aortic (valve) stenosis documented in this encounter [facility] note* Diagnosis CAD, multiple vessel- Primary Atherosclerotic heart disease of [place] coronary artery without angina pectoris Nonrheumatic aortic (valve) stenosis [facility] [place] [facility] Diagnosis CAD in [place] artery- Primary CAD in [place] artery Coronary artery disease involving coronary bypass graft of [place] heart with angina pectoris with documented spasm (HCC) S/P CABG (coronary artery bypass graft) Postsurgical aortocoronary bypass status documented in this encounter [facility] note* Diagnosis Coronary artery disease involving [place] coronary artery of [place] heart with angina pectoris (HCC)- Primary Ischemic cardiomyopathy Other specified forms of chronic ischemic heart disease Mitral valve insufficiency, unspecified etiology S/P CABG (coronary artery bypass graft) Postsurgical aortocoronary bypass status S/P MVR (mitral valve repair) documented in this encounter [facility] note* Diagnosis Acute on chronic congestive heart failure, unspecified heart failure type (HCC)- Primary documented in this encounter [facility] note* Diagnosis Acute on chronic congestive heart failure, unspecified heart failure type (HCC)- Primary Orthopnea Stage 3a chronic kidney disease (HCC) Hypokalemia Hypopotassemia documented in this encounter [facility] note* Diagnosis Stage 3b chronic kidney disease (HCC)- Primary documented in this encounter [facility] Summary Purpose Family History No Family History Records FoundNo Family History Records FoundNo Family History Records Found Advance Directives No Advanced Directives Records FoundLatest Code Status on File Code Status Date Activated Date Inactivated Comments Full Code 12/14/2022 5:47 AM 12/30/2022 5:08 PM Documents on File Type Date Recorded Patient Structural Biologist Expl anation Advance Directives and Livin g Will 01/01/2023 11:02 AM Latest Code Status on File Code Status Date Activated Date Inactivated Comments Full Code 12/14/2022 5:47 AM 12/30/2022 5:08 PM Health Concerns Infection Onset Date Last Indicated Resolved Time COVID-19 Rule-Out 05/11/2022 05/11/2022 Reason for Referral Specialty Diagnoses / Procedures Referred By Nilesh balbuena Referred To Contact Pulmonary and Critical Care Medicine Diagnoses Pulmonary fibrosis (HCC) Procedures CONSULT TO PULM/CRITICAL CARE OFFICE/OUTPATIENT [facility] 60-74 MINUTES Amalia Avery MD [address] [place] [address] Referral ID Status Reason Start Date Expiration Date Visits Requested Visits Authorized [id number] Pending Review PCP Requested Referral 05/29/2022 05/29/2023 1 1 Specialty Diagnoses / Procedures Referred By Contac t Referred To Contact Radiology Diagnoses Atherosclerotic heart disease of [place] coronary artery without angina pectoris Nonrheumatic mitral (valve) insufficiency Procedures CT chest wo IV contrast Danielle Chou MD [address] [facility] [address] [place] [address] Referral ID Status Reason Start Date Expiration Date Visits Re quested Visits Authorized [id number] Closed 11/29/2022 05/28/2023 1 1 Specialty Diagnoses / Procedures Referred By Contac t Referred To Contact Nephrology Diagnoses Stage 3b chronic kidney disease (HCC) Procedures CONSULT TO NEPHROLOGY OFFICE/OUTPATIENT [facility] 60-74 MINUTES Amalia Avery MD [address] [place] [address] Referral ID Status Reason Start Date Expiration Date Visits Requested Visits Authorized [id number] Pending Review PCP Requested Referral 04/05/2023 04/04/2024 1 1 Additional Source Comments INFORMATION SOURCE (unrecogn ized section and content) DATE CREATED AUTHOR AUTHOR'S ORGANIZ ATION 05/17/2023 [facility] DATE CREATED AUTHOR AUTHOR'S ORGANIZ ATION 06/03/2023 [facility] Source Comments (unrecognize d section and content) In the event this informatio n is protected by the Federal Confidentiality of Alcohol and Drug Abuse Patient Records regulations: The Federal rules restrict any use of the information to criminally investigate or prosecute any alcohol or drug abuse patient.[facility] the event this information is protected by the Federal Confidentiality of Alcohol and Drug Abuse Patient Records regulations: The Federal rules restrict any use of the information to criminally investigate or prosecute any alcohol or drug abuse patient.[facility] the event this information is protected by the Federal Confidentiality of Alcohol and Drug Abuse Patient Records regulations: The Federal rules restrict any use of the information to criminally investigate or prosecute any alcohol or drug abuse patient.[facility] the event this information is protected by the Federal Confidentiality of Alcohol and Drug Abuse Patient Records regulations: The Federal rules restrict any use of the information to criminally investigate or prosecute any alcohol or drug abuse patient.[facility] the event this information is protected by the Federal Confidentiality of Alcohol and Drug Abuse Patient Records regulations: The Federal rules restrict any use of the information to criminally investigate or prosecute any alcohol or drug abuse patient.[facility] the event this information is protected by the Federal Confidentiality of Alcohol and Drug Abuse Patient Records regulations: The Federal rules restrict any use of the information to criminally investigate or prosecute any alcohol or drug abuse patient.[facility] the event this information is protected by the Federal Confidentiality of Alcohol and Drug Abuse Patient Records regulations: The Federal rules restrict any use of the information to criminally investigate or prosecute any alcohol or drug abuse patient.[facility] the event this information is protected by the Federal Confidentiality of Alcohol and Drug Abuse Patient Records regulations: The Federal rules restrict any use of the information to criminally investigate or prosecute any alcohol or drug abuse patient.[facility] the event this information is protected by the Federal Confidentiality of Alcohol and Drug Abuse Patient Records regulations: The Federal rules restrict any use of the information to criminally investigate or prosecute any alcohol or drug abuse patient.[facility] the event this information is protected by the Federal Confidentiality of Alcohol and Drug Abuse Patient Records regulations: The Federal rules restrict any use of the information to criminally investigate or prosecute any alcohol or drug abuse patient.[facility] the event this information is protected by the Federal Confidentiality of Alcohol and Drug Abuse Patient Records regulations: The Federal rules restrict any use of the information to criminally investigate or prosecute any alcohol or drug abuse patient.[facility] the event this information is protected by the Federal Confidentiality of Alcohol and Drug Abuse Patient Records regulations: The Federal rules restrict any use of the information to criminally investigate or prosecute any alcohol or drug abuse patient.[facility] Reason for Visit (unrecogniz ed section and content) Reason Comments Results Reason Comments Cough Pt reported nasal /c hest congestion x4 days. Reason Comments Follow Up 6 month follow upFol low up to pneumonia Reason Onset Date Comments Imm/Inj Immunizations 06/05/2022 Flu vaccination Reason Comments Results Reason Comments Follow Up 6 month Reason Onset Date Comments Surgery Scheduling 12/01/2022 Specialty Diagnoses / Procedures Referred By Contac t Referred To Contact Radiology Diagnoses Atherosclerotic heart disease of [place] coronary artery without angina pectoris Nonrheumatic mitral (valve) insufficiency Procedures CT chest wo IV contrast Danielle Chou MD [address] [place] [address] Referral ID Status Reason Start Date Expiration Date Visits Re quested Visits Authorized [id number] Closed 11/29/2022 05/28/2023 1 1 Reason Comments Follow-up Specialty Diagnoses / Procedures Referred By Contanil t Referred To Contact Diagnoses Atherosclerotic heart disease of [place] coronary artery without angina pectoris Nonrheumatic aortic (valve) stenosis Atherosclerotic heart disease of [place] coronary artery without angina pectoris [I25.10] Nonrheumatic aortic (valve) stenosis [I35.0] Procedures NE CABG W/ARTERIAL GRAFT THREE ARTERIAL GRAFTS NE ECHO TRANSESOPHAG R-T 2D W/PRB IMG ACQUISJ I&R NE VALVULOPLASTY MITRAL VALVE W/CARDIAC BYPASS CABG, MITRAL VALVE REPAIR, ELA Echocardiography transesophageal real-time VALVULOPLASTY MITRAL VALVE WITH CARDIOPULMONARY BYPASS Danielle Chou MD [address] [facility] [address] [place] [address] [place] [address] [place] [address] Referral ID Status Reason Start Date Expiration Date Visits Re quested Visits Authorized [id number] 1 1 Reason Comments Post-op Reason Onset Date Comments Post-op Follow-up 02/16/2023 Reason Comments Patient Update Reason Comments ER F/U Fatigue Blood Pressure Patient reports has been running low and that [facility] has been adjusting medications Reason Comments Hospital F/U Care Teams (unrecognized sec tion and content) 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 Relationship Specialty Start Date End Date Amalia Avery MD [address] [place] [id number] PCP - General Family Medicine 11/23/22 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 Relationship Specialty Start Date End Date Amalia Avery MD [address] [place] [address] PCP - General Family Medicine 11/23/22 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 Relationship Specialty Start Date End Date Amalia Avery MD [address] [place] [id number] PCP - General Family Medicine 11/23/22 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 Relationship Specialty Start Date End Date Amalia Avery MD [address] [place] [address] PCP - General Family Medicine 11/23/22 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 Relationship Specialty Start Date End Date Amalia Avery MD [address] [place] [address] PCP - General Family Medicine 11/23/22 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 Relationship Specialty Start Date End Date Amalia Avery MD [address] [place] [address] PCP - General Family Medicine 11/23/22 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 Relationship Specialty Start Date End Date Amalia Avery MD [address] [place] [address] PCP - General Family Medicine 11/23/22 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 Relationship Specialty Start Date End Date Amalia Avery MD [address] [place] [address] PCP - General Family Medicine 11/23/22 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 Relationship Specialty Start Date End Date Amalia Avery MD [address] [place], [place] [address] PCP - General Family Medicine 11/16/21 Derek Brumfield MD [address] [address] Cardiology 03/11/19 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 Relationship Specialty Start Date End Date Amalia Avery MD [address] [place] [address] PCP - General Family Medicine 11/16/21 Derek Brumfield MD [address] [address] Cardiology 03/11/19 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 Relationship Specialty Start Date End Date Amalia Avery MD [address] [place], [place] [address] PCP - General Family Medicine 11/16/21 Derek Brumfield MD [address] [place] [address] Cardiology 03/11/19 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 Relationship Specialty Start Date End Date Amalia Avery MD [address] [place] [address] PCP - General Family Medicine 11/16/21 Derek Brumfield MD [address] [place], [place] [address] Cardiology 03/11/19 Scheduled Active and Recently Administ ered Medications (unrecognized section and content) PRN Medication Order 12/28/2022 12/29/2022 12/30/2022 acetaminophen (Tylenol) tablet 1,000 mg 1,000 mg, Oral, Every 8 hours PRN, mild pain (1-3), Starting on Sun12/27/22 at 1030 calcium gluconate 2000 mg in 100 mL IVPB premix 2,000 mg, IntraVENous, at 50 mL/hr, Administer over 2 Hours, PRN, ionized calcium less than 4.3, Starting on Katey 12/14/22 at 1310, Phase II/On Unit, Give 2000 mg for ionized calcium less than 4.3 premix bag dextrose 5 % infusion 100 mL/hr, IntraVENous, PRN, Blood sugar less than 70mg/dL, Starting on Katey 12/14/22 at 1310, Phase II/On Unit, Start infusion following administration of dextrose 50% or glucagon. dextrose 50 % solution 12.5 g 12.5 g, IntraVENous, PRN, low blood sugar, Blood glucose less than 70 mg/dL and patient NOT ALERT or NPO., Starting on Katey 12/14/22 at 1310, Phase II/On Unit, If patient does not respond within 5 minutes, repeat dose x1. Start D5W at 100 mL/hour until ordering provider can be reached. Repeat blood glucose in 15 minutes. If blood glucose is less than 70 mg/dL, repeat treatment and recheck blood glucose in 15 minutes x2. If using Glucostabilizer, dose as instructed per system. diphenoxylate-atropine (Lomotil) liquid 5 mL 5 mL, Oral, Every 8 hours PRN, diarrhea, Starting on Sun12/27/22 at 1030 glucagon (human recombinant) injection 1 mg 1 mg, IntraMUSCular, PRN, low blood sugar, Blood glucose less than 70 mg/dL and patient NOT ALERT or NPO and does not have IV access., Starting on Katey 12/14/22 at 1310, Phase II/On Unit, After administration, attempt intravenous access and start D5W at 100 mL/hr. Repeat blood glucose in 15 minutes x2 and notify provider. glucose oral gel 15 g 15 g, Oral, As needed, low blood sugar, Starting on Katey 12/14/22 at 1310, Phase II/On Unit, If blood glucose less than 50 mg/dL and patient ALERT and NOT NPO, give 2 tubes glucose gel. If blood glucose less than 70 mg/dL and patient ALERT and NOT NPO, give 1 tube glucose gel. Repeat blood glucose in 15 minutes. If blood glucose is less than 70 mg/dL, repeat treatment and recheck blood glucose in 15 minutes x2 and notify provider. ipratropium-albuterol (Duo-Neb) 0.5-2.5 mg/3 mL nebulizer solution 3 mL 3 mL, Nebulization, As needed, wheezing, shortness of breath, Starting on Katey 12/14/22 at 1310, Phase II/On Unit magnesium hydroxide (Milk of Magnesia) 400 MG/5ML suspension 30 mL 30 mL, Oral, Daily PRN, constipation, Starting on Sun12/14/22 at 1310, Phase II/On Unit, 1st line for treatment of constipation - give scheduled if no bowel movement in past 24 hours magnesium sulfate IVPB 4,000 mg(Linked Group 1) 4,000 mg, IntraVENous, at 25 mL/hr, Administer over 4 Hours, As needed, Per Magnesium Replacement Protocol, Starting on Sun12/14/22 at 1310, Phase II/On Unit, Mg Lab Replacement Action 1.4-1.6 2 gram IVPB x 1 doses 1.0-1.3 4 gram IVPB x 1 doses Less than 1.0 CALL PHYSICIAN and 4 gram IVPB x 1 doses Infuse at 1 gram/hr. Repeat Mag level next AM. Not for use in Patients with CrCl less than 30 mL/min. magnesium sulfate IVPB premix 2,000 mg(Linked Group 1) 2,000 mg, IntraVENous, at 25 mL/hr, Administer over 2 Hours, As needed, Per Magnesium Replacement Protocol, Starting on Sun12/14/22 at 1310, Phase II/On Unit, Mg Lab Replacement Action 1.4-1.6 2 gram IVPB x 1 doses 1.0-1.3 4 gram IVPB x 1 doses Less than 1.0 CALL PHYSICIAN and 4 gram IVPB x 1 doses Infuse at 1 gram/hr. Repeat Mag level next AM. Not for use in Patients with CrCl less than 30 mL/min. ondansetron (Zofran) injection 4 mg(Linked Group 2) 4 mg, IntraVENous, Every 6 hours PRN, nausea, vomiting, Starting on Katey 12/14/22 at 1310, Phase II/On Unit, 1st Line. Give IV if patient is unable to take orally. If inadequate response within 60 minutes, proceed to next-line agent or contact provider if no further options ordered. ondansetron ODT (Zofran-ODT) disintegrating tablet 4 mg(Linked Group 2) 4 mg, Oral, Every 8 hours PRN, nausea, vomiting, Starting on Katey 12/14/22 at 1310, Phase II/On Unit, 1st Line. If inadequate response within 60 minutes, proceed to next-line agent or contact provider if no further options ordered. Patient should allow tablet to dissolve on tongue. Do not remove from blister pack until just before administering. oxyCODONE (Roxicodone) immediate release tablet 5 mg 5 mg, Oral, Every 6 hours PRN, moderate pain (4-6), Starting on Katey 12/14/22 at 1310, Phase II/On Unit potassium chloride CR (Klor-Con M10) ER tablet 20 mEq 20 mEq, Oral, PRN, Hypokalemia, Starting on Sun12/15/22 at 0000, Phase II/On Unit, If patient is intubated or not tolerating PO use PRN IV replacement protocol Potassium level Dose LESS than 3.0 = Give 20 mEq x 3 doses 3.0-3.6 = Give 20 mEq x 2 doses Recheck potassium level 2 hour after replacement given, place order for lab under [place] If potassium level LESS than 3 after 1st replacement: Call surgeon. Do not crush or break. Do not crush or chew. stomahesive in petrolatum (ET Mix) Topical, PRN, buttocks, Starting on Sun12/20/22 at 0243 Linked Groups Order Group 1: magnesium sulfate IVPB premix 2,000 mgJump to med 2,000 mg, IntraVENous, at 25 mL/hr, Administer over 2 Hours, As needed, Per Magnesium Replacement Protocol, Starting on Katey 12/14/22 at 1310, Phase II/On Unit
Mg Lab Replacement Action 1.4-1.6 2 gram IVPB x 1 doses 1.0-1.3 4 gram IVPB x 1 doses Less than 1.0 CALL PHYSICIAN and 4 gram IVPB x 1 doses Infuse at 1 gram/hr. Repeat Mag level next AM. Not for use in Patients with CrCl less than 30 mL/min.
Or magnesium sulfate IVPB 4,000 mgJump to med 4,000 mg, IntraVENous, at 25 mL/hr, Administer over 4 Hours, As needed, Per Magnesium Replacement Protocol, Starting on Katey 12/14/22 at 1310, Phase II/On Unit
Mg Lab Replacement Action 1.4-1.6 2 gram IVPB x 1 doses 1.0-1.3 4 gram IVPB x 1 doses Less than 1.0 CALL PHYSICIAN and 4 gram IVPB x 1 doses Infuse at 1 gram/hr. Repeat Mag level next AM. Not for use in Patients with CrCl less than 30 mL/min.
Group 2: ondansetron ODT (Zofran-ODT) disintegrating tablet 4 mgJump to med 4 mg, Oral, Every 8 hours PRN, nausea, vomiting, Starting on Katey 12/14/22 at 1310, Phase II/On Unit
1st Line. If inadequate response within 60 minutes, proceed to next-line agent or contact provider if no further options ordered. Patient should allow tablet to dissolve on tongue. Do not remove from blister pack until just before administering.
Or ondansetron (Zofran) injection 4 mgJump to med 4 mg, IntraVENous, Every 6 hours PRN, nausea, vomiting, Starting on Katey 12/14/22 at 1310, Phase II/On Unit
1st Line. Give IV if patient is unable to take orally. If inadequate response within 60 minutes, proceed to next-line agent or contact provider if no further options ordered.
FOR RECORDS PERTAINING TO PATIENTS WHO ARE OR HAVE BEEN ENROLLED IN A CHEMICAL DEPENDENCY/SUBSTANCEABUSE PROGRAM, SOME INFORMATION MAY BE OMITTED. This clinical summary was aggregated from multiple sources. Caution should be exercised in using it in the provision of clinical care. This summary normalizes information from multiple sources, and as a consequence, information in this document may materially change the coding, format and clinical context of patient data. In addition, data may be omitted in some cases. CLINICAL DECISIONS SHOULD BE BASED ON THE PRIMARY CLINICAL RECORDS. [employer] provides no warranty or guarantee of the accuracy or completeness of information in this document.
[2023-06-12] MEDS: 0.9% Normal Saline (1000mL) 1,000 ML 70 ML IV (23:37)
[2023-06-12] MEDS: Pantoprazole Sodium 80 MG in 0.9% Normal Saline (100mL Bag) 80 ML 10 MG CONT INF (23:37)
[2023-06-13] VITALS (28 sets, daily range): BP systolic 71–119; BP diastolic 32–73; PULSE 75–87; RESP 14–100; TEMP 36.1–36.7; O2SAT 18–100; BMI 29.6
[2023-06-13 06:18] LABS: Absolute Lymphocyte Count 1.26 X10^3/uL (0.83-4.51); Absolute Neutrophil Count 6.5 X10^3/uL (2.0-7.7); Basophil# 0.05 X10^3/uL; Basophil% 0.6 % (0-1); Eosinophil# 0.61 X10^3/uL; Eosinophils% 6.8 % (0-5); Hemoglobin 7.9 g/dL (12.0-15.0); Lymphocyte # 1.26 X10^3/ul (0.83-4.51); Mean Corp Hgb Conc 32.9 g/dL (32-36); Mean Corpuscular Volume 91.3 fL (81-99); Mean Platelet Vol. 10.4 fl (6.2-12.0); Monocyte# 0.61 X10^3/uL; Monocyte% 6.8 % (0-10); NRBC Flagged by Analyzer 0 % (0-5); Neutrophil # 6.46 X10^3/uL (2.7-7.7); Neutrophil % 71.5 % (47-70); Platelet Count 141 K/mm3 (150-450); RBC Distribution Width CV 15.5 % (11.6-14.6); RBC Distribution Width SD 51.4 fl (35.1-43.9); Red Blood Count 2.63 M/mm3 (4.2-5.4)
[2023-06-13 07:03] LABS: Anion Gap 9 (5-15); BUN 24 mg/dL (7-18); BUN/Creat Ratio 29.5 RATIO (10-20); Calcium,Total 6.3 mg/dL (8.5-10.1); Chloride 120 mmol/L (98-107); Creatinine, Serum 0.81 mg/dL (0.55-1.02); EST Glomerular Filtration Rate 71 mL/min (>60); Est Glom Filt Rate - Afr Amer 86 mL/min (>60); Estimated Creatinine Clearance 50.44 ml/min; Glucose 81 mg/dL (74-106); Phosphorus 2.4 mg/dL (2.5-4.9); Potassium 2.8 mmol/L (3.5-5.1); Sodium Level 148 mmol/L (136-145); Thyroid Stim Hormone (TSH) 0.84 uIU/mL (0.358-3.74)
--- NOTE | 2023-06-13 07:07 | PN.HOSP_ITS ---
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 Though did have some hematochezia around 0600. Objective Data Objective Data Vital Signs: Vital Signs Temp Pulse Resp BP Pulse Ox O2 Del Method 36.2 C L 85 20 H 97/61 98 Room Air 06/13/23 06:00 06/13/23 07:00 06/13/23 07:00 06/13/23 07:00 06/13/23 07:00 06/13/23 07:00 Oxygen Delivery Method Room Air Weight: 75.9 kg Body Mass Index (BMI) 29.6 Intake & Output: Intake and Output for Last 24 Hours 06/11/23 06/12/23 06/13/23 23:59 23:59 23:59 Intake Total 1001 / 1001 2 / 2 Balance 1001 / 1001 2 / 2 Lab / Micro Data 06/13/23 06:10 06/13/23 06:10 Labs: Laboratory Results - last 24 hr 06/12/23 15:35: WBC 11.0, RBC 1.92 L, Hgb 5.8 L*, Hct 18.0 L, MCV 93.8, MCH 30.2, MCHC 32.2, RDW Std Deviation 53.3 H, RDW Coeff of Sakina 15.8 H, Plt Count 217, MPV 10.5, Immature Gran % (Auto) 0.300, Neut % (Auto) 76.3 H, Lymph % (Auto) 13.5 L, [place] % (Auto) 7.7, Eos % (Auto) 1.9, Baso % (Auto) 0.3, Absolute Neuts (auto) 8.4 H, Absolute Lymphs (auto) 1.48, Nucleated RBC % 0, Diff Path Review May , Platelet Estimate ADEQUATE, RBC Morphology N CHROM, Poly chromasia RARE, Hypochromasia 2+, Anisocytosis RARE, Macrocytosis 1+, Ovalocytes RARE, PT 22.2 H, INR 1.9, APTT 35.3, Sodium 136, Potassium 3.7, Chloride 104, Carbon Dioxide 23.0, Anion Gap 9, BUN 35 H, Creatinine 1.43 H, Estim Creat Clear Calc 27.35, Est GFR (MDRD) Af Amer 45 L, Est GFR (MDRD) Non-Af 37 L, BUN/Creatinine Ratio 24.5 H, Glucose 118 H, Lactic Acid 2.5 H*, Calcium 7.9 L, Total Bilirubin 0.50, AST 17, ALT 9 L, Alkaline Phosphatase 88, Total Protein 5.6 L, Albumin 2.7 L, Globulin 2.9, Albumin/Globulin Ratio 0.9, Lipase 45, Digoxin 0.66 L, Blood Type O POSITIVE, Antibody Screen NEGATIVE, Crossmatch See Detail 06/12/23 15:50: Crossmatch See Detail 06/12/23 21:29: Lactic Acid 1.0 06/13/23 06:10: WBC 9.0, RBC 2.63 L, Hgb 7.9 L, Hct 24.0 L, MCV 91.3, MCH 30.0, MCHC 32.9, RDW Std Deviation 51.4 H, RDW Coeff of Sakina 15.5 H, Plt Count 141 L, MPV 10.4, Immature Gran % (Auto) 0.300, Neut % (Auto) 71.5 H, Lymph % (Auto) 14.0 L, [place] % (Auto) 6.8, Eos % (Auto) 6.8 H, Baso % (Auto) 0.6, Absolute Neuts (auto) 6.5, Absolute Lymphs (auto) 1.26, Nucleated RBC % 0, Sodium 148 H, P otassium 2.8 L, Chloride 120 H, Carbon Dioxide 19.0 L, Anion Gap 9, BUN 24 H, Creatinine 0.81, Estim Creat Clear Calc 50.44, Est GFR (MDRD) Af Amer 86, Est GFR (MDRD) Non-Af 71, BUN/Creatinine Ratio 29.5 H, Glucose 81, Calcium 6.3 L*, Phosphorus 2.4 L, Magnesium 1.0 L, TSH 0.84 Physical Exam Const alert and no apparent distress HEENT head/scalp atraumatic and moist oral mucous membranes Resp normal respiratory effort, no retractions, no use of accessory muscles and clear to auscultation bilaterally Cardio regular rate, regular rhythm, S1 normal heart sound and S2 normal heart sound GI normal to inspection, nondistended, normoactive bowel sounds, soft to palpation, non-tender and non-distended Neuro Sensorium / Orientation: awake Assessment & Plan Assessment/Plan (1) GI bleed: QUALIFIERS: GI bleed type/associated pathology: melena Qualified Code(s): K92.1 - Melena PLAN: Plan acute blood loss anemia * requiring transfusion with a hemoglobin of 5.8 g/dL present on admission likely due to suspected PUD with melena * Improved to 7.9 after 3 units PRBCs * Pantoprazole drip * apixaban on hold given GI bleed * etiology: diverticular v PUD v AVM v other * CTA AP showed diverticulosis, but no obvious source of bleeding. GIB * unclear source * complicated by apixaban, which has been held. Hemorrhagic shock * 2/2 ABLA * improved with transfusions and IVF * sacubitril/valsartan, furosemide held. Abnormal electrolytes. * recheck for accuracy. If persists then treat as appropriate. Chronic conditions: * Chronic HFrEF: LVEF ~15% meds held give hypotension. caution with IVF. * CAD; s/p [place] with subsequent stents * History of Mobitz-II AV-block; s/p PPM * History of pulmonary fibrosis * History of vertigo - Give Antivert prn. * Generalized anxiety * OA * Paroxysmal atrial flutter: Apixaban currently on hold. Discussed with patient and her daughter, plan is to resume that at some point after bleeding is stopped DVT prophylaxis - SCD's only with active GI bleeding. DW pt's dtr at bedside. Greater than 55 minutes of which greater than 50% of time was counseling the patient and her daughter at bedside about the bleeding, potential etiologies, and the plan to resume apixaban after bleeding is confirmed to be stopped at so me point. Charges/Coding Visit Charges Inpatient E&M: 35001 [facility] Hosp L3
[2023-06-13] MEDS: Pantoprazole Sodium 80 MG in 0.9% Normal Saline (100mL Bag) 80 ML 10 MG CONT INF ×2 (08:58→20:27)
--- NOTE | 2023-06-13 09:21 | CT_ITS ---
STUDY: CTA ABDOMEN AND PELVIS WITH CONTRAST REASON FOR EXAM: Female, 83 years old. GI bleed RADIATION DOSAGE (If Supplied By Facility): CTDIvol = ( 30.82 ) mGy, DLP = ( 595.84 ) mGycm TECHNIQUE: Transaxial images were obtained from the dome of the diaphragm to the symphysis pubis without oral contrast. IV 100mL Isovue-370 was administered. Sagittal and coronal images were reconstructed. 3-D images were reconstructed. Individualized dose optimization techniques were used for this CT. COMPARISON: None. FINDINGS: Small bilateral pleural effusions. Marked degree of scarring at the lung bases with evidence of the subpleural blebs. Coronary artery calcification. Prior CABG. There is decreased attenuation of the liver consistent with steatosis. Small layering gallstones are seen along the dependent portion of the gallbladder lumen. Normal spleen. Normal pancreas. Normal bilateral adrenal glands. Normal right kidney. Normal left kidney. There is a large hiatal hernia composed mostly of the fundus of the stomach. Normal small intestine. There are multiple colonic diverticula consistent with diverticulosis. The appendix is visualized and appears normal. There is scattered atherosclerotic calcification of the abdominal aorta, without a demonstrated aneurysm. Normal inferior vena cava. Normal retroperitoneum. Normal urinary bladder. Calcified fibroid uterus. Normal abdominal wall. There are mild degenerative changes of the visualized lumbar spine. CT/CTA Abd/Pelvis W/WO Contrast IMPRESSION: Small bilateral pleural effusions with scarring at both lung bases. Large hiatal hernia. Small layering gallstones. Sigmoid diverticulosis without diverticulitis. Electronically Signed: Carl Hillman MD at 10:46 EST ,
--- NOTE | 2023-06-13 09:40 | CASEMGMT ---
MANAS CLAY Assessment: Face to Face with pt for initial transition planning/care coordination assessment. MANAS CLAY introduced self and role at [facility], pt voices understanding and consents to assessment. Pt is A&O x4 and answers all questions appropriately at this time. Pt sitting up in bed on RA in no distress with dtr Juani present at bedside. Pt agreeable to assessment with dtr present. Care providers, pharmacy, and demographics verified/updated. Admitting Dx:melanotic stools with acute blood loss anemia PCP:Gena Specialists:Brissa, cardio; Hilton, eyes Preferred Pharmacy: [facility] Insurance: [place] Prescription Benefit: yes LNOK: Radha Medina, dtr Living Arrangements: Pt lives alone in a single story home with 3 steps to enter. Pt reports she is I in ADL's and denies concerns at home. She states she does her own laundry and meals. States she has a cleaning lady 1x/month and her dtr or granddtr gets her groceries. Transportation: Pt states she drives very little. States her dtr or granddtr transports her to medical appts. DME:shower chair, medic alert, cane, walker HHC/SNF: Pt has had HHC in [place] after open heart surgery but cannot recall the name of the agency. Denies SNF stays. Pt is active with [facility]. Pt states no concerns with going home at time of dc. Pt would like to resume her CCN. She states that [facility]riel is aware that she is hospitalized. Discussed if pt needs therapy at home, we could discuss HHC. Pt states that the health men's swim coach from [facility] does exercises with her once a week. Pt states no further concerns/needs. CM to follow. Advised pt to ask CM if any further question/concerns/needs arise, voices understanding. Pt Goal: Home with CCN resuming Plan: TBD pending course of hospitalization After assessment in room, pt dtr took MANAS CLAY aside and states that pt is very optimistic in what she is saying she does at home, but does not fare that well. She states when her sister gets off of work today they are going to have a discussion about pt going to AL for 2 mos until their brother comes home and can care for pt. They would like information on AL. She is aware that the MANAS CLAY will make the SW aware of this for resources.
[2023-06-13] MEDS: Timolol 0.5% 5ML OPTH.BTL 1 DRP LEFT EYE ×2 (11:24→20:28)
--- NOTE | 2023-06-13 12:18 | CON.PCM.GI_ITS ---
HPI Consult Data Date of Consult: 06/13/23 HPI Narrative Reason for Consultation: GI bleed HPI Narrative: SOHAIL ALCARAZ, is a 83 F with a past medical history of essential hypertension, chronic anemia, CAD; s/p [place] with subsequent stents, CAD; s/p CABG x2, chronic systolic and diastolic CHF; with LVEF ~15% on Eliquis, history of Mobitz-II AV- block; s/p PPM, history of pulmonary fibrosis, history of vertigo, generalized anxiety and OA who presents to [facility] ER complaining of GI bleeding. Ms. Alcaraz reports her symptoms began approximately 5 days prior to admission with very dark stools that turned the water red in the toilet. She then continued to take her Eliquis and Entestro plus her Lasix with worsening d izziness with standing, generalized weakness and malaise with her blood pressure dropping to the ~80 mmHg systolic range. Then earlier today she fell when she was trying to walk across a room and she finally decided to come in for further evaluation and treatment. She denies associated fever, chills, nausea, vomiting, abdominal pain or chest pain. She admits to a remote history of colonoscopy but she denies a history of previous EGD. In the ER she was noted to have severe acute blood loss anemia requiring transfusion with a hemoglobin of 5.8 g/dL present on admission likely due to suspected PUD complicated by an adverse drug reaction to Eliquis and Entestro and she was then admitted to the ICU for ongoing care [facility] Medical History Acute kidney injury Anxiety Atherosclerosis of coronary artery of samish heart without angina pectoris Chronic anemia Essential (primary) hypertension Fractured sternum HFrEF (heart failure with reduced ejection fraction) History of ST elevation myocardial infarction (STEMI) (11/16/18) History of vertigo Ischemic cardiomyopathy Mobitz (type) II atrioventricular block Non-ischemic cardiomyopathy 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) Home Medications aspirin 81 mg chewable tablet 81 mg PO DAILY@0800 circulation 12/08/16 [History Last Taken 06/12/23] erythromycin 5 mg/gram (0.5 %) eye ointment 1 applic LEFT EYE [facility] eye health 12/08/16 [History Last Taken 06/09/23] omeprazole 40 mg capsule,delayed release 40 mg PO DAILY acid reflux 12/08/16 [History Last Taken 06/12/23] acyclovir 800 mg tablet 800 mg PO DAILY SHINGLES 09/11/19 [History Last Taken 06/12/23] difluprednate 0.05 % eye drops 1 drp ophthalmic (eye) Q OTHER DAY 05/13/20 [History Last Taken 06/10/23] timolol maleate 0.5 % eye drops 1 drp ophthalmic (eye) BID 02/14/22 [History Last Taken 06/11/23] vit A 300 mcg-C 200 mg-E 27 mg-lutein 2 mg and minerals tablet (Eye Health Plus Lutein) 1 tab PO BID 02/14/22 [History Last Taken Unknown] dapagliflozin propanediol 10 mg tablet (Farxiga) 10 mg PO DAILY #90 tabs 09/19/22 [Rx Last Taken 06/12/23] apixaban 5 mg tablet (Eliquis) 5 mg PO BID #180 tabs 02/09/23 [Rx Last Taken 06/12/23] atorvastatin 20 mg tablet 20 mg PO QHS #90 tabs 02/09/23 [Rx Last Taken 04/22] carvedilol 3.125 mg tablet (Coreg) 3.125 mg PO BID #180 tabs 05/16/23 [Rx Last Taken 06/12/23] digoxin 125 mcg (0.125 mg) tablet 125 mcg PO .COMPLEX #60 tabs 05/16/23 [Rx Last Taken 06/11/23] furosemide 20 mg tablet 10 mg (1/2 x 20 mg) PO DAILY #45 tabs 06/11/23 [Rx Last Taken 06/12/23] sacubitril 24 mg-valsartan 26 mg tablet (Entresto) 1 tab PO BID 06/11/23 [History Last Taken 06/12/23] naproxen sodium 220 mg capsule 220 mg PO BID PRN pain 06/12/23 [History Last Taken 06/12/23] propylene glycol 0.6 % eye drops (Lubricant Eye (propylene glycol)) 1 drp EACH EYE DAILY PRN DRY EYE 06/12/23 [History Last Taken Unknown] vit C 250 mg-vit E 90 mg-zinc 40 mg-copper 1 [id number]-[id number]-[id number] capsule (PreserVision AREDS-2) 1 tab PO BID 06/12/23 [History Last Taken 06/12/23] Allergy/AdvReac Type Severity Reaction Status Date / Time morphine Allergy Vomiting Verified 05/16/23 12:56 sacubitril [From Entresto] AdvReac Intermediate Hypotension Verified 06/05/23 16:15 on lowest dose valsartan [From Entresto] AdvReac Intermediate Hypotension Verified 06/05/23 16:15 on lowest dose Family History Father Heart disease Mother Heart disease Chronic anemia Iron deficiency Surgical History History of coronary artery stent placement (12/19/18) History of left heart catheterization (06/21/20) Presence of permanent cardiac pacemaker (08/02/18) S/P CABG x 2 S/P mitral valve repair Social History household members: none Smoking Status: Former smoker how long ago did patient quit smoking: Quit in 1967. alcohol intake: never substance use type: does not use caffeine: Yes Type: coffee Number of servings: 2 ROS ROS Narrative Review of systems: Constitutional: No recent fevers or chills. She does have a general malaise and generalized weakness. EYE: No visual complaints or pain. ENT: No difficulty swallowing, runny nose or sore throat. CV: No chest pain or palpitations but she has been near syncopal. Respiratory: No dyspnea or difficulty taking breaths. GI: Positive for blood in stools as noted above in HPI. : No frequency, dysuria or hematuria reported. Musculoskeletal: No recent trauma or pain. Skin: No rash or abscess. Neuro: No focal or lateralizing weakness or numbness. Endocrine: No polyuria, polydipsia or polyphagia. 14 point ROS otherwise negative except for positives noted above in HPI. Physical Exam Const alert and no apparent distress HEENT head/scalp atraumatic and moist oral mucous membranes Resp normal respiratory effort, no retractions, no use of accessory muscles and clear to auscultation bilaterally Cardio regular rate, regular rhythm, S1 normal heart sound and S2 normal heart sound GI normal to inspection, nondistended, normoactive bowel sounds, soft to palpation, non-tender and non-distended Neuro Sensorium / Orientation: awake Lab / Micro Data 06/14/23 11:45 06/14/23 03:30 Labs: Laboratory Results - last 24 hr 06/12/23 15:35: Diff Path Review Reviewed 06/13/23 14:55: WBC 11.3 H, RBC 2.89 L, Hgb 8.4 L, Hct 26.6 L, MCV 92.0, MCH 29.1, MCHC 31.6 L, RDW Std Deviation 52.7 H, RDW Coeff of Sakina 15.8 H, Plt Count 184, MPV 10.9, Immature Gran % (Auto) 0.400, Neut % (Auto) 77.5 H, Lymph % (Auto ) 10.9 L, Glynn % (Auto) 5.2, Eos % (Auto) 5.5 H, Baso % (Auto) 0.5, Absolute Neuts (auto) 8.7 H, Absolute Lymphs (auto) 1.23, Nucleated RBC % 0 06/13/23 15:20: Sodium 144, Potassium 3.4 L, Chloride 115 H, Carbon Dioxide 21.0, Anion Gap 8, BUN 21 H, Creatinine 1.12 H, Estim Creat Clear Calc 36.48, Est GFR (MDRD) Af Amer 60, Est GFR (MDRD) Non-Af 49 L, BUN/Creatinine Ratio 18.8, Glucose 184 H, Calcium 7.8 L, Phosphorus 2.6, Magnesium 1.5 L 06/14/23 03:30: WBC 11.9 H, RBC 2.75 L, Hgb 8.0 L, Hct 25.4 L, MCV 92.4, MCH 29 .1, MCHC 31.5 L, RDW Std Deviation 53.4 H, RDW Coeff of Sakina 15.9 H, Plt Count 176, MPV 10.3, Immature Gran % (Auto) 0.500, Neut % (Auto) 69.7, Lymph % (Auto) 14.6 L, [place]nn % (Auto) 6.4, Eos % (Auto) 8.3 H, Baso % (Auto) 0.5, Absolute Neuts (auto) 8.3 H, Absolute Lymphs (auto) 1.74, Nucleated RBC % 0, Sodium 143, Potassium 4.2, Chloride 117 H, Carbon Dioxide 23.0, Anion Gap 3 L, BUN 19 H, Cre atinine 1.01, Estim Creat Clear Calc 40.45, Est GFR (MDRD) Af Amer 67, Est GFR (MDRD) Non-Af 56 L, BUN/Creatinine Ratio 18.8, Glucose 99, Calcium 8.2 L, P hosphorus 2.5, Magnesium 2.0 06/14/23 11:45: Hgb 8.3 L, Hct 26.4 L Assessment & Plan Assessment/Plan (1) GI bleed: QUALIFIERS: GI bleed type/associated pathology: melena Qualified Code(s): K92.1 - Melena (2) Medication induced coagulopathy: (3) Non-ischemic cardiomyopathy: (4) Anticoagulant long-term use: PLAN: Plan 83-year-old with past medical history of CAD status post CABG x 2, status post mitral valve repair for mitral regurgitation status post ST segment elevation AL with 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 Severe acute blood loss anemia requiring transfusion with a hemoglobin of 5.8 g/dL present on admission likely due to suspected PUD with melena . Transfuse 2 units of PRBC's began in the ER. Transfuse as necessary to keep hemoglobin > 7 g/dL. Continue IV Protonix drip and keep strict NPO. Patient will undergo an upper endoscopy to evaluate upper GI tract. She was explained alternatives, risk, benefits include not withstanding bleeding, infection, sepsis, perforation, need for more discharge and . She will have an ASA of 3.
[2023-06-13 12:51] LABS: Pathologist Review Reviewed
[2023-06-13] MEDS: 0.9% Normal Saline (1000mL) 1,000 ML 70 ML IV (15:27)
[2023-06-13 15:29] LABS: Absolute Lymphocyte Count 1.23 X10^3/uL (0.83-4.51); Absolute Neutrophil Count 8.7 X10^3/uL (2.0-7.7); Basophil# 0.06 X10^3/uL; Basophil% 0.5 % (0-1); Eosinophil# 0.62 X10^3/uL; Eosinophils% 5.5 % (0-5); Hematocrit 26.6 % (37-47); Hemoglobin 8.4 g/dL (12.0-15.0); Lymphocyte # 1.23 X10^3/ul (0.83-4.51); Lymphocyte % 10.9 % (19-41); Mean Corp Hgb Conc 31.6 g/dL (32-36); Mean Corpuscular Hgb 29.1 pg (27.0-32.0); Mean Platelet Vol. 10.9 fl (6.2-12.0); Monocyte# 0.58 X10^3/uL; Monocyte% 5.2 % (0-10); NRBC Flagged by Analyzer 0 % (0-5); Neutrophil # 8.72 X10^3/uL (2.7-7.7); Neutrophil % 77.5 % (47-70); Platelet Count 184 K/mm3 (150-450); RBC Distribution Width CV 15.8 % (11.6-14.6); RBC Distribution Width SD 52.7 fl (35.1-43.9); Red Blood Count 2.89 M/mm3 (4.2-5.4); White Blood Count 11.3 K/mm3 (4.4-11.0)
[2023-06-13 15:58] LABS: Anion Gap 8 (5-15); BUN 21 mg/dL (7-18); BUN/Creat Ratio 18.8 RATIO (10-20); Calcium,Total 7.8 mg/dL (8.5-10.1); Chloride 115 mmol/L (98-107); Creatinine, Serum 1.12 mg/dL (0.55-1.02); EST Glomerular Filtration Rate 49 mL/min (>60); Est Glom Filt Rate - Afr Amer 60 mL/min (>60); Estimated Creatinine Clearance 36.48 ml/min; Glucose 184 mg/dL (74-106); Magnesium 1.5 mg/dL (1.6-2.6); Phosphorus 2.6 mg/dL (2.5-4.9); Potassium 3.4 mmol/L (3.5-5.1); Sodium Level 144 mmol/L (136-145)
--- NOTE | 2023-06-13 16:13 | CASEMGMT ---
Social Work SW met with pt to discuss advance directives.? Pt confirms she has completed a living will and health care POA naming her daughter Radha Huizar.? Pt notified that documents are not on file at [facility] and SW requested they be brought in for scanning into the EMR.? TIANA Dutta
--- NOTE | 2023-06-13 16:14 | CASEMGMT ---
Social Work SW received referral from RNCM that pt's family is considering AL placement for pt. JUSTUS met with pt and introduced self and role of SW. SW discussed discharge plan with pt and pt adamantly states she will be returning home at time of discharge. Pt daughter Juani arrived back to pt room. JUSTUS met with Juani outside of pt's room. JUSTUS informed Juani that pt is requesting home and at this time SW will follow this dc plan. Juani is in agreement and states she and sister will talk to pt regarding need for AL. JUSTUS provided Juani with written list of Assisted Living options in the area and additional information on [facility]. Juani appreciative of information. TIANA Dutta
[2023-06-13] MEDS: Potassium Chloride Oral Tablet 20 MEQ 40 MEQ PO (16:44)
[2023-06-13] MEDS: Magnesium Sulfate 2 GM in Dextrose 5%-Water (100mL Bag) 100 ML IV (16:47)
[2023-06-13] MEDS: Erythromycin Base 1 OPTH.TUBE 1 APPLIC LEFT EYE (20:27)
[2023-06-14] VITALS (26 sets, daily range): BP systolic 77–124; BP diastolic 38–80; PULSE 79–119; RESP 12–42; TEMP 36–37.4; O2SAT 93–100; BMI 31.4
[2023-06-14 03:35] LABS: Absolute Lymphocyte Count 1.74 X10^3/uL (0.83-4.51); Absolute Neutrophil Count 8.3 X10^3/uL (2.0-7.7); Basophil# 0.06 X10^3/uL; Basophil% 0.5 % (0-1); Eosinophil# 0.99 X10^3/uL; Eosinophils% 8.3 % (0-5); Hematocrit 25.4 % (37-47); Lymphocyte # 1.74 X10^3/ul (0.83-4.51); Lymphocyte % 14.6 % (19-41); Mean Corp Hgb Conc 31.5 g/dL (32-36); Mean Corpuscular Hgb 29.1 pg (27.0-32.0); Mean Corpuscular Volume 92.4 fL (81-99); Mean Platelet Vol. 10.3 fl (6.2-12.0); Monocyte# 0.76 X10^3/uL; Monocyte% 6.4 % (0-10); NRBC Flagged by Analyzer 0 % (0-5); Neutrophil # 8.31 X10^3/uL (2.7-7.7); Neutrophil % 69.7 % (47-70); Platelet Count 176 K/mm3 (150-450); RBC Distribution Width CV 15.9 % (11.6-14.6); RBC Distribution Width SD 53.4 fl (35.1-43.9); Red Blood Count 2.75 M/mm3 (4.2-5.4); White Blood Count 11.9 K/mm3 (4.4-11.0)
[2023-06-14 03:48] LABS: Anion Gap 3 (5-15); BUN 19 mg/dL (7-18); BUN/Creat Ratio 18.8 RATIO (10-20); Calcium,Total 8.2 mg/dL (8.5-10.1); Chloride 117 mmol/L (98-107); Creatinine, Serum 1.01 mg/dL (0.55-1.02); EST Glomerular Filtration Rate 56 mL/min (>60); Est Glom Filt Rate - Afr Amer 67 mL/min (>60); Estimated Creatinine Clearance 40.45 ml/min; Glucose 99 mg/dL (74-106); Potassium 4.2 mmol/L (3.5-5.1); Sodium Level 143 mmol/L (136-145)
[2023-06-14 03:51] LABS: Phosphorus 2.5 mg/dL (2.5-4.9)
[2023-06-14] MEDS: Pantoprazole Sodium 80 MG in 0.9% Normal Saline (100mL Bag) 80 ML 10 MG CONT INF ×2 (05:30→16:12)
[2023-06-14] MEDS: 0.9% Normal Saline (1000mL) 1,000 ML 70 ML IV (05:30)
--- NOTE | 2023-06-14 06:58 | PCM.PN.HOSP ---
Subjective Subjective Feeling well. Patient still had bowel movements with some blood but less than had been previously. Concerned about her weight gain. Denies any swelling in her lower extremities though does have some swelling in her hands. No shortness of breath. Objective Data Objective Data Vital Signs: Vital Signs Temp Pulse Resp BP Pulse Ox O2 Del Method 36.4 C L 82 18 112/65 96 Room Air 06/14/23 00:00 06/14/23 06:00 06/14/23 06:00 06/14/23 06:00 06/14/23 06:00 06/14/23 06:00 Oxygen Delivery Method Room Air Weight: 80.3 kg Body Mass Index (BMI) 31.4 Intake & Output: Intake and Output for Last 24 Hours 06/12/23 06/13/23 06/14/23 23:59 23:59 23:59 Intake Total 1001 / 1001 1396.33 / 1396.33 836.0 / 836.0 Output Total 500 / 500 700 / 700 Balance 1001 / 1001 896.33 / 896.33 136.0 / 136.0 Lab / Micro Data 06/14/23 11:45 06/14/23 03:30 Labs: Laboratory Results - last 24 hr 06/12/23 15:35: Diff Path Review Reviewed 06/13/23 06:10: Sodium 148 H, Potassium 2.8 L, Chloride 120 H, Carbon Dioxide 19.0 L, Anion Gap 9, BUN 24 H, Creatinine 0.81, Estim Creat Clear Calc 50.44, Est GFR (MDRD) Af Amer 86, Est GFR (MDRD) Non-Af 71, BUN/Creatinine Ratio 29.5 H, Glucose 81, Calcium 6.3 L*, Phosphorus 2.4 L, Magnesium 1.0 L, TSH 0.84 06/13/23 14:55: WBC 11.3 H, RBC 2.89 L, Hgb 8.4 L, Hct 26.6 L, MCV 92.0, MCH 29.1, MCHC 31.6 L, RDW Std Deviation 52.7 H, RDW Coeff of Sakina 15.8 H, Plt Count 184, MPV 10.9, Immature Gran % (Auto) 0.400, Neut % (Auto) 77.5 H, Lymph % (Auto) 10.9 L, [place] % (Auto) 5.2, Eos % (Auto) 5.5 H, Baso % (Auto) 0.5, Absolute Neuts (auto) 8.7 H, Absolute Lymphs (auto) 1.23, Nucleated RBC % 0 06/13/23 15:20: Sodium 144, Potassium 3.4 L, Chloride 115 H, Carbon Dioxide 21.0, Anion Gap 8, BUN 21 H, Creatinine 1.12 H, Estim Creat Clear Calc 36.48, Est GFR (MDRD) Af Amer 60, Est GFR (MDRD) Non-Af 49 L, BUN/Creatinine Ratio 18.8, Glucose 184 H, Calcium 7.8 L, Phosphorus 2.6, Magnesium 1.5 L 06/14/23 03:30: WBC 11.9 H, RBC 2.75 L, Hgb 8.0 L, Hct 25.4 L, MCV 92.4, MCH 29.1, MCHC 31.5 L, RDW Std Deviation 53.4 H, RDW Coeff of Sakina 15.9 H, Plt Count 176, MPV 10.3, Immature Gran % (Auto) 0.500, Neut % (Auto) 69.7, Lymph % (Auto) 14.6 L, [place]ombs % (Auto) 6.4, Eos % (Auto) 8.3 H, Baso % (Auto) 0.5, Absolute Neuts (auto) 8.3 H, Absolute Lymphs (auto) 1.74, Nucleated RBC % 0, Sodium 143, Potassium 4.2, Chloride 117 H, Carbon Dioxide 23.0, Anion Gap 3 L, BUN 19 H, Creatinine 1.01, Estim Creat Clear Calc 40.45, Est GFR (MDRD) Af Amer 67, Est GFR (MDRD) Non-Af 56 L, BUN/Creatinine Ratio 18.8, Glucose 99, Calcium 8.2 L, Phosphorus 2.5, Magnesium 2.0 Radiography Diagnostic Testing: Radiology Impression Abdomen/Pelvis CTA 06/13/23 09:21 IMPRESSION: Small bilateral pleural effusions with scarring at both lung bases. Large hiatal hernia. Small layering gallstones. Sigmoid diverticulosis without diverticulitis. Electronically Signed: Carl Hillman MD at 10:46 EST , Physical Exam Const alert and no apparent distress HEENT head/scalp atraumatic and moist oral mucous membranes Resp normal respiratory effort, no retractions, no use of accessory muscles and clear to auscultation bilaterally Cardio regular rate, regular rhythm, S1 normal heart sound and S2 normal heart sound GI normal to inspection, nondistended, normoactive bowel sounds, soft to palpation, non-tender and non-distended Extremity General Extremity: edema bilateral upper extremity trace Neuro Sensorium / Orientation: awake and alert Assessment & Plan Assessment/Plan (1) GI bleed: QUALIFIERS: GI bleed type/associated pathology: melena Qualified Code(s): K92.1 - Melena PLAN: Plan acute blood loss anemia requiring transfusion with a hemoglobin of 5.8 g/dL present on admission likely due to suspected PUD with melena Improved to 8 after 3 units PRBCs, hold off any additional transfusions unless hemoglobin 7 or less. Pantoprazole drip apixaban on hold given GI bleed etiology: diverticular v PUD v AVM v other GIB unclear source complicated by apixaban, which has been held. GI on consult CTA negative for source of bleeding. Upper endoscopy today Hemorrhagic shock 2/2 ABLA improved with transfusions and IVF sacubitril/valsartan, furosemide held. Hypokalemia/Hypomagnesemia resolved after replacement Chronic conditions: Chronic HFrEF: LVEF ~15% resume carvedilol and digoxin. CAD; s/p [place] with subsequent stents History of Mobitz-II AV-block; s/p PPM History of pulmonary fibrosis History of vertigo - Give Antivert prn. Generalized anxiety OA Paroxysmal atrial flutter: Apixaban currently on hold. Discussed with patient and her daughter, plan is to resume that at some point after bleeding is stopped DVT prophylaxis - SCD's only with active GI bleeding. Charges/Coding Visit Charges Inpatient E&M: 62052 Subs Hosp L2
[2023-06-14 11:57] LABS: Hematocrit 26.4 % (37-47); Hemoglobin 8.3 g/dL (12.0-15.0)
--- NOTE | 2023-06-14 12:41 | NURSING ---
Patient assisted to the bedside commode then to bed. Patient became very anxious, near panic attack. patient stated she is worried about the scope. Patient ST 110-120, RR 30s. O2 stable at 97% room air. This RN and patients daughter was able to calm patient down. Endoscopy transport staff arrived at bedside at 1230. Patient left unit stable, slightly still anxious. Endoscopy unit called to give report at 1245, unable to take report a that time- will call this RN back.
--- NOTE | 2023-06-14 12:44 | EKG12_ITS ---
Test Reason : PREOP Blood Pressure : / mmHG Vent. Rate : 122 BPM Atrial Rate : 122 BPM P-R Int : 208 ms QRS Dur : 160 ms QT Int : 322 ms P-R-T Axes : -18 -38 104 degrees QTc Int : 458 ms Poor data quality, interpretation may be adversely affected Atrial-sensed ventricular-paced rhythm Abnormal ECG Confirmed by NICA CHAPA, MARCIAL ([id number]), newspaper or periodical editor ORLIN MALHOTRA ([id number]) on 06/19/2023 6:31:43 AM Referred By: ALYSSA Confirmed By:MARCIAL YOUSIF MD
--- NOTE | 2023-06-14 13:15 | NURSING ---
1245 arrived to ICU to transport pt to for egd, pt had just gotten up to bsc per RN and started to panic about upcoming procedure. Rn states pt is stable and on room air. Much emotional support given per staff and her daughter encouraged deep breathing and to slow down breathing. Upon arrival to ac, pt resp became more labored and pt states I can breath in but not out . Dr jung went in to see pt and ordered stat EKG. Resp stated that pt became wet and pt pulse ox dropped to 87% and was placed on O2 4ln/c, dr Morton also in to see pt and discussed with daughter that procedure will be postponed and pt taken back up to ICU now. I called up to ICU and informed them that we are on our way back up. Resp and I took pt back to her room and Emely Le RT at bedside and giving report.
--- NOTE | 2023-06-14 13:23 | RAD_ITS ---
STUDY: X-RAY CHEST REASON FOR EXAM: Female, 83 years old. SOB TECHNIQUE: Single AP portable view of the chest. COMPARISON: Comparison is made with prior study dated March 16, 2023. FINDINGS: EKG electrodes are seen. Bilateral diffuse airspace disease in keeping with pulmonary edema. Blunting of both costophrenic angles. A left-sided dual-chamber pacemaker is seen. Prior midline sternotomy and a clipping of the left atrial appendage. Normal mediastinum and gilles. Normal visualized pulmonary arteries. There is atherosclerotic calcification of the aortic arch with tortuosity. Normal visualized thoracic spine. There is degenerative osteoarthritis of the bilateral shoulders. There is no demonstrated abnormality of the visualized soft tissue structures of the upper abdomen. RAD/Chest 1 View (Portable) IMPRESSION: Findings in keeping with pulmonary edema. Electronically Signed: Carl Hillman MD at 14:41 EST ,
[2023-06-14] MEDS: Furosemide 40 MG/4 ML Vial IV ×2 (13:34→20:33)
[2023-06-14 13:38] LABS: Base Excess -14 mmol/L (-2 to +2); Bicarbonate 13.4 mmol/L (22-26); Blood Gas Specimen Type ART; Mode Not entered; O2 Delivery Device Cannula; PO2 86 mmHG (75-100); SITE Not entered; SO2 95 % (95-99); Total Carbon Dioxide 14 mmol/L; pCO2 30.2 mmHg (35-45); pH 7.26 (7.35-7.45)
[2023-06-14 13:50] LABS: Absolute Lymphocyte Count 3.17 X10^3/uL (0.83-4.51); Absolute Neutrophil Count 12.3 X10^3/uL (2.0-7.7); Basophil# 0.08 X10^3/uL; Basophil% 0.5 % (0-1); Eosinophil# 0.99 X10^3/uL; Eosinophils% 5.7 % (0-5); Hematocrit 28.5 % (37-47); Hemoglobin 8.9 g/dL (12.0-15.0); Lymphocyte # 3.17 X10^3/ul (0.83-4.51); Lymphocyte % 18.1 % (19-41); Mean Corp Hgb Conc 31.2 g/dL (32-36); Mean Platelet Vol. 10.4 fl (6.2-12.0); Monocyte# 0.84 X10^3/uL; Monocyte% 4.8 % (0-10); NRBC Flagged by Analyzer 0 % (0-5); Neutrophil # 12.34 X10^3/uL (2.7-7.7); Neutrophil % 70.4 % (47-70); Platelet Count 211 K/mm3 (150-450); RBC Distribution Width CV 15.9 % (11.6-14.6); RBC Distribution Width SD 55.7 fl (35.1-43.9); Red Blood Count 2.97 M/mm3 (4.2-5.4); White Blood Count 17.5 K/mm3 (4.4-11.0)
--- NOTE | 2023-06-14 13:51 | PCM.HOSP.N ---
Hospitalist Note Patient became short of breath before heading down to surgery. She also became very anxious. EGD was aborted before she can even make it down there. Patient was noted to be tachypneic with respiratory rate in 30s to 40s. Patient was on nasal cannula and was breathing 100% on nasal cannula. Chest x-ray showed pulmonary vascular congestion. IV fluids were discontinued and dose of IV furosemide 40 mg x 1 was ordered. Patient had an ABG that showed pH of 7.256, pCO2 of 30 and pO2 of 86. Patient will be placed on BiPAP and Colón catheter will be placed. Did discuss the case with the patient's daughter at bedside. It appears that the patient has acute heart failure. She was alarmed by that but knew that the patient did have a low ejection fraction. Explained to her that it is fluid buildup in the lungs. This is likely due to all the fluid that she received as well as blood products and the patient with known reduced ejection fraction. This is acute heart failure with reduced ejection fraction. Will continue with furosemide for now. Visit Charges Inpatient E&M: 59209 [facility] L3
[2023-06-14 13:58] LABS: Anion Gap 10 (5-15); BUN 18 mg/dL (7-18); BUN/Creat Ratio 15.1 RATIO (10-20); Calcium,Total 8.3 mg/dL (8.5-10.1); Chloride 118 mmol/L (98-107); Creatinine, Serum 1.19 mg/dL (0.55-1.02); EST Glomerular Filtration Rate 46 mL/min (>60); Est Glom Filt Rate - Afr Amer 56 mL/min (>60); Estimated Creatinine Clearance 35.31 ml/min; Glucose 241 mg/dL (74-106); Potassium 4.5 mmol/L (3.5-5.1); Sodium Level 144 mmol/L (136-145); Troponin-I HS 48 pg/mL (3.0-54.0)
--- NOTE | 2023-06-14 14:51 | NURSING ---
At 1300 this RN was notified by INSTRUMENT WORKER/Mcgregor Leona that the patient was on her way back per AC. No reason given. This RN called AC to inquire why the patient was on her way back, AC staff not sure. Patient arrived to the unit at 1307 in distress, RR 30-40s, HR 120s, very anxious with audible crackles in lungs heard. RT at bedside. 02 sats 97% on 2L NC. This RN immediately turned off the IVF and notified Dr. Lozano. Dr. Lozano arrived at bedside at 1312, lasix 40 mg IV, CXR, BMP, ABG, CBC and troponin series ordered. EKG was done in AC. Bipap and avendaño ordered. Patients daughter at bedside.
[2023-06-14 15:52] LABS: Troponin-I HS 103 pg/mL (3.0-54.0)
--- NOTE | 2023-06-14 16:56 | EX.PCM.PN.GI ---
Subjective Subjective Patient was supposed to get an upper endoscopy today. However she was noted to be very out of it and very tearful prior to the procedure. Objective Data Objective Data Vital Signs: Vital Signs Temp Pulse Resp BP Pulse Ox O2 Del Method O2 Flow Rate 97.9 F 97 25 H 105/59 L 97 Bi-pap 4 06/14/23 16:00 06/14/23 16:04 06/14/23 16:04 06/14/23 16:00 06/14/23 16:04 06/14/23 16:00 06/14/23 13:45 FiO2 21 06/14/23 16:04 Oxygen Flow Rate (L/min) 4 Oxygen Delivery Method Bi-pap Weight: 177 lb 0.499 oz Body Mass Index (BMI) 31.4 Intake & Output: Intake and Output for Last 24 Hours 06/12/23 06/13/23 06/14/23 23:59 23:59 23:59 Intake Total 1001 / 1001 1396.33 / 1396.33 1526.33 / 1526.33 Output Total 500 / 500 2250 / 2250 Balance 1001 / 1001 896.33 / 896.33 -723.67 / -723.67 Lab / Micro Data 06/14/23 13:25 06/14/23 13:25 Labs: Laboratory Results - last 24 hr 06/14/23 03:30: WBC 11.9 H, RBC 2.75 L, Hgb 8.0 L, Hct 25.4 L, MCV 92.4, MCH 29.1, MCHC 31.5 L, RDW Std Deviation 53.4 H, RDW Coeff of Sakina 15.9 H, Plt Count 176, MPV 10.3, Immature Gran % (Auto) 0.500, Neut % (Auto) 69.7, Lymph % (Auto) 14.6 L, [place] % (Auto) 6.4, Eos % (Auto) 8.3 H, Baso % (Auto) 0.5, Absolute Neuts (auto) 8.3 H, Absolute Lymphs (auto) 1.74, Nucleated RBC % 0, Sodium 143, Potassium 4.2, Chloride 117 H, Carbon Dioxide 23.0, Anion Gap 3 L, BUN 19 H, Creatinine 1.01, Estim Creat Clear Calc 40.45, Est GFR (MDRD) Af Amer 67, Est GFR (MDRD) Non-Af 56 L, BUN/Creatinine Ratio 18.8, Glucose 99, Calcium 8.2 L, Phosphorus 2.5, Magnesium 2.0 06/14/23 11:45: Hgb 8.3 L, Hct 26.4 L 06/14/23 13:25: WBC 17.5 H, RBC 2.97 L, Hgb 8.9 L, Hct 28.5 L, MCV 96.0, MCH 30.0, MCHC 31.2 L, RDW Std Deviation 55.7 H, RDW Coeff of Sakina 15.9 H, Plt Count 211, MPV 10.4, Immature Gran % (Auto) 0.500, Neut % (Auto) 70.4 H, Lymph % (Auto) 18.1 L, [place] % (Auto) 4.8, Eos % (Auto) 5.7 H, Baso % (Auto) 0.5, Absolute Neuts (auto) 12.3 H, Absolute Lymphs (auto) 3.17, Nucleated RBC % 0, Sodium 144, Potassium 4.5, Chloride 118 H, Carbon Dioxide 16.0 L, Anion Gap 10, BUN 18, Creatinine 1.19 H, Estim Creat Clear Calc 35.31, Est GFR (MDRD) Af Amer 56 L, Est GFR (MDRD) Non-Af 46 L, BUN/Creatinine Ratio 15.1, Glucose 241 H, Calcium 8.3 L, Troponin I High Sens 48 06/14/23 15:10: Troponin I High Sens 103 H ABG Data ABG results: ABG 06/14/23 13:34 Specimen Type ART Sample Site Not entered pH 7.26 L Bicarbonate Actual 13.4 L Total CO2 14 Base Excess -14 L O2 Saturation 95 O2 % 4.0 ABG pCO2 30.2 L ABG pO2 86 O2 Delivery Device Cannula Vent Mode Not entered Radiography Diagnostic Testing: Radiology Impression Chest X-Ray 06/14/23 13:23 IMPRESSION: Findings in keeping with pulmonary edema. Electronically Signed: Carl Hillman MD at 14:41 EST , Physical Exam Const alert and no apparent distress HEENT head/scalp atraumatic and moist oral mucous membranes Resp normal respiratory effort, no retractions, no use of accessory muscles and clear to auscultation bilaterally Cardio regular rate, regular rhythm, S1 normal heart sound and S2 normal heart sound GI normal to inspection, nondistended, normoactive bowel sounds, soft to palpation, non-tender and non-distended Neuro Sensorium / Orientation: awake Assessment & Plan Assessment/Plan (1) GI bleed: QUALIFIERS: GI bleed type/associated pathology: melena Qualified Code(s): K92.1 - Melena (2) Medication induced coagulopathy: (3) Non-ischemic cardiomyopathy: (4) Anticoagulant long-term use: PLAN: Plan 83-year-old with past medical history of CAD status post CABG x 2, status post mitral valve repair for mitral regurgitation status post ST segment elevation [place] with 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 Severe acute blood loss anemia requiring transfusion with a hemoglobin of 5.8 g/dL present on admission likely due to suspected PUD with melena . Transfuse 2 units of PRBC's began in the ER. Transfuse as necessary to keep hemoglobin > 7 g/dL. Continue IV Protonix drip and keep strict NPO. Patient will undergo an upper endoscopy to evaluate upper GI tract. She was explained alternatives, risk, benefits include not withstanding bleeding, infection, sepsis, perforation, need for more discharge and . She will have an ASA of 3. Patient brought back up to the floor is to be optimized. Patient had a panic attack prior to the procedure today. She was noted to be tachycardic. Hopefully if her cardiac issues can be addressed we can do the procedure tomorrow also we can know if it is safe for her to go back on anticoagulation and/or antiplatelet therapy in the near future. Charges/Coding Visit Charges Inpatient E&M: 27247 [facility] Hosp L3
[2023-06-14] MEDS: 0.9% Saline Lock 10 ML Syringe IV (20:33)
[2023-06-14] MEDS: Erythromycin Base 1 OPTH.TUBE 1 APPLIC LEFT EYE (20:34)
[2023-06-14 21:34] LABS: Troponin-I HS 248 pg/mL (3.0-54.0)
[2023-06-15] VITALS (28 sets, daily range): BP systolic 72–118; BP diastolic 43–62; PULSE 85–107; RESP 14–28; TEMP 36.8–38.2; O2SAT 88–100; BMI 29.9
[2023-06-15] MEDS: Pantoprazole Sodium 80 MG in 0.9% Normal Saline (100mL Bag) 80 ML 10 MG CONT INF ×2 (03:13→11:50)
[2023-06-15 03:28] LABS: Absolute Lymphocyte Count 1.38 X10^3/uL (0.83-4.51); Absolute Neutrophil Count 14.4 X10^3/uL (2.0-7.7); Basophil# 0.05 X10^3/uL; Basophil% 0.3 % (0-1); Eosinophil# 0.25 X10^3/uL; Eosinophils% 1.4 % (0-5); Hematocrit 25.2 % (37-47); Hemoglobin 8.1 g/dL (12.0-15.0); Lymphocyte # 1.38 X10^3/ul (0.83-4.51); Lymphocyte % 7.9 % (19-41); Mean Corp Hgb Conc 32.1 g/dL (32-36); Mean Corpuscular Hgb 29.5 pg (27.0-32.0); Mean Corpuscular Volume 91.6 fL (81-99); Mean Platelet Vol. 10.5 fl (6.2-12.0); Monocyte# 1.24 X10^3/uL; Monocyte% 7.1 % (0-10); NRBC Flagged by Analyzer 0 % (0-5); Neutrophil # 14.37 X10^3/uL (2.7-7.7); Neutrophil % 82.8 % (47-70); Platelet Count 198 K/mm3 (150-450); RBC Distribution Width SD 52.6 fl (35.1-43.9); Red Blood Count 2.75 M/mm3 (4.2-5.4); White Blood Count 17.4 K/mm3 (4.4-11.0)
[2023-06-15 03:46] LABS: Anion Gap 6 (5-15); BUN 16 mg/dL (7-18); BUN/Creat Ratio 14.8 RATIO (10-20); Calcium,Total 8.4 mg/dL (8.5-10.1); Chloride 112 mmol/L (98-107); Creatinine, Serum 1.08 mg/dL (0.55-1.02); EST Glomerular Filtration Rate 51 mL/min (>60); Est Glom Filt Rate - Afr Amer 62 mL/min (>60); Estimated Creatinine Clearance 38.91 ml/min; Glucose 88 mg/dL (74-106); Potassium 3.6 mmol/L (3.5-5.1); Sodium Level 143 mmol/L (136-145)
--- NOTE | 2023-06-15 09:15 | RAD_ITS ---
STUDY: X-RAY CHEST REASON FOR EXAM: Female, 83 years old. Pulmonary edema TECHNIQUE: Single AP portable view of the chest. COMPARISON: Comparison is made with prior study dated June 14, 2023. FINDINGS: EKG electrodes are seen. There is minimal moderate degree of improvement of the bilateral airspace disease. Residual mild CHF with small bilateral pleural effusions and left basilar atelectasis remains. Sternal cerclage wires and vascular clips are present from a prior sternotomy and coronary artery bypass graft procedure (CABG). A left-sided lacunar pacemaker is seen. Normal mediastinum and gilles. Normal visualized pulmonary arteries. There is atherosclerotic calcification of the aortic arch with tortuosity. There are diffuse degenerative changes of the visualized thoracic spine. There is degenerative osteoarthritis of the bilateral shoulders. There is no demonstrated abnormality of the visualized soft tissue structures of the upper abdomen. RAD/Chest 1 View (Portable) IMPRESSION: Moderate degree of improvement in the pulmonary edema. Residual changes persist worse at the left lung base. Electronically Signed: Carl Hillman MD at 9:54 EST ,
[2023-06-15] MEDS: Timolol 0.5% 5ML OPTH.BTL 1 DRP LEFT EYE ×2 (10:50→21:51)
[2023-06-15] MEDS: Acetaminophen 650 MG/20 ML UDC PO (14:15)
--- NOTE | 2023-06-15 17:28 | NURSING ---
Patient taken to Endo at this time.
--- NOTE | 2023-06-15 17:51 | PN.HOSP_ITS ---
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 I talked with her family were in the room at the time of my examination, I asked her if she knew that she had impaired pumping function and she did, she stated that she went to an EP physician to talk about an ICD', she decided against getting 1 put in. I also discussed her CODE STATUS with her, she is currently a full code and I said it ultimately was her decision whether she wanted to be a DNR CC arrest without intubation or keep the CODE STATUS as is, she was not able to give an answer to me so I have left her CODE STATUS as is. Objective Data Objective Data Vital Signs: Vital Signs Temp Pulse Resp BP Pulse Ox O2 Del Method O2 Flow Rate 100.3 F H 98 23 H 99/53 L 96 Room Air 4 06/15/23 17:00 06/15/23 17:00 06/15/23 17:00 06/15/23 17:00 06/15/23 17:00 06/15/23 17:00 06/14/23 13:45 FiO2 21 06/14/23 16:04 Oxygen Flow Rate (L/min) 4 Oxygen Delivery Method Room Air Weight: 76.8 kg Body Mass Index (BMI) 29.9 Intake & Output: Intake and Output for Last 24 Hours 06/13/23 06/14/23 06/15/23 23:59 23:59 23:59 Intake Total 1396.33 / 1396.33 1526.33 / 1526.33 186.17 / 186.17 Output Total 500 / 500 2850 / 3850 3175 / 3175 Balance 896.33 / 896.33 -1323.67 / -2323.67 -2988.83 / -2988.83 Lab / Micro Data 06/15/23 03:15 06/15/23 03:15 Labs: Laboratory Results - last 24 hr 06/14/23 20:30: Troponin I High Sens 248 H* 06/15/23 03:15: WBC 17.4 H, RBC 2.75 L, Hgb 8.1 L, Hct 25.2 L, MCV 91.6, MCH 29.5, MCHC 32.1, RDW Std Deviation 52.6 H, RDW Coeff of Sakina 16.0 H, Plt Count 198, MPV 10.5, Immature Gran % (Auto) 0.500, Neut % (Auto) 82.8 H, Lymph % (Auto) 7.9 L, [place] % (Auto) 7.1, Eos % (Auto) 1.4, Baso % (Auto) 0.3, Absolute Neuts (auto) 14.4 H, Absolute Lymphs (auto) 1.38, Nucleated RBC % 0, Sodium 143, Potassium 3.6, Chloride 112 H, Carbon Dioxide 25.0, Anion Gap 6, BUN 16, Creatinine 1.08 H, Estim Creat Clear Calc 38.91, Est GFR (MDRD) Af Amer 62, Est GFR (MDRD) Non-Af 51 L, BUN/Creatinine Ratio 14.8, Glucose 88, Calcium 8.4 L Radiography Diagnostic Testing: Radiology Impression Chest X-Ray 06/15/23 09:15 IMPRESSION: Moderate degree of improvement in the pulmonary edema. Residual changes persist worse at the left lung base. Electronically Signed: Carl Hillman MD at 9:54 EST , Physical Exam Const alert, oriented x3, no apparent distress, average body habitus and healthy appearing General Appearance: cooperative, well kempt and well developed Orientation / Consciousness: awake, oriented to person, oriented to place and oriented to time HEENT normocephalic, head/scalp atraumatic and moist oral mucous membranes Eyes PERRL, EOMs intact bilaterally and conjunctivae normal Neck supple, no JVD, thyroid normal and no carotid bruits General: trachea midline Resp normal respiratory effort, no retractions and no use of accessory muscles Resp Narrative: Patient has fine rales at the lung bases bilaterally, there is decreased breath sounds at the left lung base Auscultation: rales; Negative for rhonchi or wheezes Cardio regular rate, regular rhythm, S1 normal heart sound, S2 normal heart sound, no murmurs, no rub and no gallops GI normal to inspection, nondistended, normoactive bowel sounds, soft to palpation, non-tender and non-distended Extremity no clubbing, cyanosis or edema Skin no rashes or lesions noted General Skin Exam: no breakdown Neuro oriented x3, CN's II-XII intact bilaterally, moves all extremities, no focal motor deficits and no sensory deficits noted Sensorium / Orientation: awake and alert Speech: speech normal Psych affect normal Assessment & Plan Assessment/Plan (1) Anemia: PLAN: Plan 1. Acute anemia-secondary to blood loss requiring transfusion-etiology unclear at this point, patient will have an EGD performed today #2 acute on chronic congestive heart failure with decreased ejection fraction- patient's Lasix was held this morning due to her low blood pressure, it will be resumed when she comes back from her EGD. #3 ischemic cardiomyopathy-complicates care, medical course, recovery, and prognosis, patient will remain on her current medications including carvedilol and Lasix, patient is also on digoxin, patient did not tolerate Entresto #4 type II egn-XRYJH-nakbsmerctj care, medical course, recovery, and prognosis #5 GI bleed-source unknown, patient's Eliquis has been on hold, she remains on a PPI #6 hemorrhagic shock-this is resolved at this time Total clinical time spent by myself addressing the patient's medical issues, reviewing all of her data, and collaborating with patient's care team: 35 minutes Charges/Coding Visit Charges Inpatient E&M: 03673 [facility] Hosp L2
[2023-06-15] MEDS: Lactated Ringers 1,000 ML 15 ML IV (17:52)
--- NOTE | 2023-06-15 21:01 | OP.EGD_ITS ---
Patient Name: Dayana Quiñones Procedure Date: 06/15/2023 8:35 PM Date of : 1940 Age: 83 Procedure: Upper GI endoscopy Indications: Melena Providers: Rigoberto Morton DO Medicines: Monitored Anesthesia Care Patient Profile: This is an 83 year old female. Refer to note in patient chart for documentation of history and physical. Patient has symptoms of acute epigastric abdominal pain. Complications: No immediate complications. Procedure: Pre-Anesthesia Assessment: - Prior to the procedure, a History and Physical was performed, and patient medications and allergies were reviewed. The patient is competent. The risks and benefits of the procedure and the sedation options and risks were discussed with the patient. All questions were answered and informed consent was obtained. Patient identification and proposed procedure were verified by the physician in the pre-procedure area. Mental Status Examination: alert and oriented. Airway Examination: normal oropharyngeal airway and neck mobility. Respiratory Examination: clear to auscultation. CV Examination: normal. Prophylactic Antibiotics: The patient does not require prophylactic antibiotics. Prior Anticoagulants: The patient has taken no anticoagulant or antiplatelet agents. ASA Grade Assessment: IV - A patient with severe systemic disease that is a constant threat to life. After reviewing the risks and benefits, the patient was deemed in satisfactory condition to undergo the procedure. The anesthesia plan was to use monitored anesthesia care (MAC). Immediately prior to administration of medications, the patient was re-assessed for adequacy to receive sedatives. The heart rate, respiratory rate, oxygen saturations, blood pressure, adequacy of pulmonary ventilation, and response to care were monitored throughout the procedure. The physical status of the patient was re-assessed after the procedure. After obtaining informed consent, the endoscope was passed under direct vision. Throughout the procedure, the patient's blood pressure, pulse, and oxygen saturations were monitored continuously. The Colonoscope was introduced through the mouth, and advanced to the second part of duodenum. The upper GI endoscopy was accomplished without difficulty. The patient tolerated the procedure well. Scope In: 8:47:36 PM Scope Out: 8:54:28 PM Total Procedure Duration Time 0 hours 6 minutes 52 seconds Findings: The examined esophagus was normal. A mild Schatzki ring was found at the gastroesophageal junction. A medium-sized hiatal hernia was present. No other significant abnormalities were identified in a careful examination of the stomach. Three 5 mm angiodysplastic lesions with bleeding were found in the third portion of the duodenum. Coagulation for hemostasis using heater probe was successful. Estimated blood loss was minimal. Impression: - Normal esophagus. - Mild Schatzki ring. - Medium-sized hiatal hernia. - Three bleeding angiodysplastic lesions in the duodenum. Treated with a heater probe. - No specimens collected. Recommendation: - Return patient to [facility] for ongoing care. - Clear liquid diet. - Continue present medications. Procedure Code(s): --- Professional --- 62361, Esophagogastroduodenoscopy, flexible, transoral; with control of bleeding, any method CPT copyright 2021 [employer]. All rights reserved. The codes documented in this report are preliminary and upon processor grain review may be revised to meet current compliance requirements. Rigoberto Morton DO 06/15/2023 9:01:14 PM This report has been signed electronically. Number of Addenda: 0 Note Initiated On: 06/15/2023 8:35 PM
--- NOTE | 2023-06-15 21:01 | OP.CCLET_ITS ---
06/15/2023 Luiz Avery Re : Upper GI endoscopy procedure for Dayana Quiñones Debi Avery This procedure was performed on Thursday, June 15, 2023. My impressions and recommendations are as follows: Impressions : - Normal esophagus. - Mild Schatzki ring. - Medium-sized hiatal hernia. - Three bleeding angiodysplastic lesions in the duodenum. Treated with a heater probe. - No specimens collected. Recommendations : - Return patient to [facility] for ongoing care. - Clear liquid diet. - Continue present medications. My findings are described in the full procedure note, which is enclosed. If I can be of further assistance, please feel free to contact me at . Sincerely, Rigoberto Morton, 06/15/2023 9:01:14 PM This report has been signed electronically.
[2023-06-15] MEDS: Ondansetron 4 MG/2 ML Vial IV (21:45)
[2023-06-15] MEDS: Erythromycin Base 1 OPTH.TUBE 1 APPLIC LEFT EYE (21:50)
[2023-06-16] VITALS (19 sets, daily range): BP systolic 78–106; BP diastolic 33–69; PULSE 87–103; RESP 16–25; TEMP 36.3–37.7; O2SAT 92–100; BMI 30.7
[2023-06-16 05:35] LABS: Absolute Lymphocyte Count 1.35 X10^3/uL (0.83-4.51); Absolute Neutrophil Count 10.6 X10^3/uL (2.0-7.7); Basophil# 0.06 X10^3/uL; Basophil% 0.4 % (0-1); Eosinophil# 0.35 X10^3/uL; Eosinophils% 2.6 % (0-5); Hematocrit 25.5 % (37-47); Hemoglobin 7.9 g/dL (12.0-15.0); Lymphocyte # 1.35 X10^3/ul (0.83-4.51); Lymphocyte % 10.1 % (19-41); Mean Corpuscular Volume 93.8 fL (81-99); Mean Platelet Vol. 10.2 fl (6.2-12.0); Monocyte# 0.97 X10^3/uL; Monocyte% 7.3 % (0-10); NRBC Flagged by Analyzer 0 % (0-5); Neutrophil # 10.58 X10^3/uL (2.7-7.7); Neutrophil % 79.2 % (47-70); Platelet Count 209 K/mm3 (150-450); RBC Distribution Width CV 15.9 % (11.6-14.6); Red Blood Count 2.72 M/mm3 (4.2-5.4); White Blood Count 13.4 K/mm3 (4.4-11.0)
[2023-06-16 05:55] LABS: ALB/GLOB Ratio 0.8 RATIO (0.9-2.4); AST(SGOT) 18 U/L (15-37); Alanine Aminotransfer ALT/SGPT 13 U/L (13-56); Albumin, Serum 2.4 g/dL (3.2-5.0); Alkaline Phosphatase 71 U/L (45-117); Anion Gap 4 (5-15); BUN 16 mg/dL (7-18); BUN/Creat Ratio 18.2 RATIO (10-20); Calcium,Total 8.3 mg/dL (8.5-10.1); Chloride 112 mmol/L (98-107); Creatinine, Serum 0.88 mg/dL (0.55-1.02); EST Glomerular Filtration Rate 65 mL/min (>60); Est Glom Filt Rate - Afr Amer 79 mL/min (>60); Glucose 88 mg/dL (74-106); Potassium 3.5 mmol/L (3.5-5.1); Protein, Total 5.4 g/dL (6.4-8.2); Sodium Level 144 mmol/L (136-145)
[2023-06-16] MEDS: Furosemide 40 MG/4 ML Vial IV (10:33)
[2023-06-16] MEDS: 0.9% Saline Lock 10 ML Syringe IV (10:34)
[2023-06-16] MEDS: DIFLUPREDNATE 1 DRP OPTH.BTL LEFT EYE (10:35)
--- NOTE | 2023-06-16 14:29 | PCM.PN.HOSP ---
Reason for Visit Reason for Visit: Diagnoses Anemia, unspecified (06/12/23) Coagulation defect, unspecified (06/12/23) Other cardiomyopathies (06/12/23) Melena (06/12/23) Adverse effect of unspecified drugs, medicaments and biological substances, initial encounter (06/12/23) penitentiary (current) use of anticoagulants (06/12/23) Subjective Subjective Patient was seen and examined today, patient underwent an EGD today which showed 3 bleeding angiodysplastic lesions in the duodenum which were treated with a heater probe. There was noted to be a mild Schatzki's ring. Objective Data Objective Data Vital Signs: Vital Signs Temp Pulse Resp BP Pulse Ox O2 Del Method O2 Flow Rate 98.5 F 91 18 86/42 L 95 Room Air 2 06/16/23 12:00 06/16/23 14:00 06/16/23 14:00 06/16/23 14:00 06/16/23 14:00 06/16/23 14:00 06/16/23 07:33 FiO2 21 06/14/23 16:04 Oxygen Flow Rate (L/min) 2 Oxygen Delivery Method Room Air Weight: 78.8 kg Body Mass Index (BMI) 30.7 Intake & Output: Intake and Output for Last 24 Hours 06/14/23 06/15/23 06/16/23 23:59 23:59 23:59 Intake Total 1526.33 / 1526.33 349.42 / 349.42 340 / 340 Output Total 2850 / 3850 3320 / 3420 475 / 475 Balance -1323.67 / -2323.67 -2970.58 / -3070.58 -135 / -135 Lab / Micro Data 06/16/23 05:20 06/16/23 05:20 Labs: Laboratory Results - last 24 hr 06/16/23 05:20: WBC 13.4 H, RBC 2.72 L, Hgb 7.9 L, Hct 25.5 L, MCV 93.8, MCH 29.0, MCHC 31.0 L, RDW Std Deviation 53.0 H, RDW Coeff of Sakina 15.9 H, Plt Count 209, MPV 10.2, Immature Gran % (Auto) 0.400, Neut % (Auto) 79.2 H, Lymph % (Auto) 10.1 L, [place] % (Auto) 7.3, Eos % (Auto) 2.6, Baso % (Auto) 0.4, Absolute Neuts (auto) 10.6 H, Absolute Lymphs (auto) 1.35, Nucleated RBC % 0, Sodium 144, Potassium 3.5, Chloride 112 H, Carbon Dioxide 28.0, Anion Gap 4 L, BUN 16, Creatinine 0.88, Estim Creat Clear Calc 47.30, Est GFR (MDRD) Af Amer 79, Est GFR (MDRD) Non-Af 65, BUN/Creatinine Ratio 18.2, Glucose 88, Calcium 8.3 L, Total Bilirubin 1.30 H, AST 18, ALT 13, Alkaline Phosphatase 71, Total Protein 5.4 L, Albumin 2.4 L, Globulin 3.0, Albumin/Globulin Ratio 0.8 L Physical Exam Const alert, oriented x3 and no apparent distress General Appearance: cooperative, well kempt and well developed Orientation / Consciousness: awake, oriented to person, oriented to place and oriented to time HEENT normocephalic, head/scalp atraumatic and moist oral mucous membranes Eyes PERRL, EOMs intact bilaterally and conjunctivae normal Neck supple, no JVD, thyroid normal and no carotid bruits General: trachea midline Resp normal respiratory effort, no retractions and no use of accessory muscles Resp Narrative: Inspiratory rales were noted at the bases bilaterally Auscultation: rales; Negative for rhonchi or wheezes Cardio regular rate, regular rhythm, S1 normal heart sound, S2 normal heart sound, no murmurs, no rub and no gallops GI normal to inspection, nondistended, normoactive bowel sounds, soft to palpation, non-tender and non-distended Extremity no clubbing, cyanosis or edema Skin no rashes or lesions noted General Skin Exam: no breakdown Neuro oriented x3, CN's II-XII intact bilaterally, no focal motor deficits and no sensory deficits noted Sensorium / Orientation: awake and alert Speech: speech normal Psych affect normal Assessment & Plan Assessment/Plan (1) GI bleed: QUALIFIERS: GI bleed type/associated pathology: melena Qualified Code(s): K92.1 - Melena (2) Anemia: PLAN: Plan 1. 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 #3 ischemic cardiomyopathy-complicates care, medical course, recovery, and prognosis, patient will remain on her current medications including carvedilol and Lasix, patient is also on digoxin, patient did not tolerate Entresto #4 type II [id number] care, medical course, recovery, and prognosis #5 GI bleed-from angiodysplastic lesions in the duodenum, patient will be given a PPI #6 hemorrhagic shock-this is resolved at this time Total clinical time spent by myself addressing the patient's medical issues, reviewing all of her data, and collaborating with patient's care team: 35 minutes Charges/Coding Visit Charges Inpatient E&M: 47898 Subs Hosp L2
--- NOTE | 2023-06-16 16:24 | PN.GI_ITS ---
Subjective Subjective Patient underwent an upper endoscopy yesterday and was discovered to have some angiodysplastic lesions in the small bowel which were treated endoscopically. She has not had any signs or symptoms of bleeding today. Objective Data Objective Data Vital Signs: Vital Signs Temp Pulse Resp BP Pulse Ox O2 Del Method O2 Flow Rate 97.9 F 91 18 93/49 L 97 Room Air 2 06/16/23 15:00 06/16/23 15:00 06/16/23 15:00 06/16/23 15:00 06/16/23 15:00 06/16/23 15:10 06/16/23 07:33 FiO2 21 06/14/23 16:04 Oxygen Flow Rate (L/min) 2 Oxygen Delivery Method Room Air Weight: 173 lb 11.588 oz Body Mass Index (BMI) 30.7 Intake & Output: Intake and Output for Last 24 Hours 06/14/23 06/15/23 06/16/23 23:59 23:59 23:59 Intake Total 1526.33 / 1526.33 349.42 / 349.42 340 / 340 Output Total 2850 / 3850 3320 / 3420 475 / 475 Balance -1323.67 / -2323.67 -2970.58 / -3070.58 -135 / -135 Lab / Micro Data 06/16/23 05:20 06/16/23 05:20 Labs: Laboratory Results - last 24 hr 06/16/23 05:20: WBC 13.4 H, RBC 2.72 L, Hgb 7.9 L, Hct 25.5 L, MCV 93.8, MCH 29.0, MCHC 31.0 L, RDW Std Deviation 53.0 H, RDW Coeff of Sakina 15.9 H, Plt Count 209, MPV 10.2, Immature Gran % (Auto) 0.400, Neut % (Auto) 79.2 H, Lymph % (Auto) 10.1 L, [place] % (Auto) 7.3, Eos % (Auto) 2.6, Baso % (Auto) 0.4, Absolute Neuts (auto) 10.6 H, Absolute Lymphs (auto) 1.35, Nucleated RBC % 0, Sodium 144, Potassium 3.5, Chloride 112 H, Carbon Dioxide 28.0, Anion Gap 4 L, BUN 16, Creatinine 0.88, Estim Creat Clear Calc 47.30, Est GFR (MDRD) Af Amer 79, Est GFR (MDRD) Non-Af 65, BUN/Creatinine Ratio 18.2, Glucose 88, Calcium 8.3 L, Total Bilirubin 1.30 H, AST 18, ALT 13, Alkaline Phosphatase 71, Total Protein 5.4 L, Albumin 2.4 L, Globulin 3.0, Albumin/Globulin Ratio 0.8 L Physical Exam Const alert, oriented x3, no apparent distress, average body habitus and healthy appearing General Appearance: cooperative, well kempt and well developed Orientation / Consciousness: awake, oriented to person, oriented to place and oriented to time HEENT normocephalic, head/scalp atraumatic and moist oral mucous membranes Eyes PERRL, EOMs intact bilaterally and conjunctivae normal Neck supple, no JVD, thyroid normal and no carotid bruits General: trachea midline Resp normal respiratory effort, no retractions and no use of accessory muscles Resp Narrative: Patient has fine rales at the lung bases bilaterally, there is decreased breath sounds at the left lung base Auscultation: rales; Negative for rhonchi or wheezes Cardio regular rate, regular rhythm, S1 normal heart sound, S2 normal heart sound, no murmurs, no rub and no gallops GI normal to inspection, nondistended, normoactive bowel sounds, soft to palpation, non-tender and non-distended Extremity no clubbing, cyanosis or edema Skin no rashes or lesions noted General Skin Exam: no breakdown Neuro oriented x3, CN's II-XII intact bilaterally, moves all extremities, no focal motor deficits and no sensory deficits noted Sensorium / Orientation: awake and alert Speech: speech normal Psych affect normal Assessment & Plan Assessment/Plan (1) GI bleed: QUALIFIERS: GI bleed type/associated pathology: melena Qualified Code(s): K92.1 - Melena (2) Medication induced coagulopathy: (3) Non-ischemic cardiomyopathy: (4) Anticoagulant long-term use: PLAN: Plan 83-year-old with past medical history of CAD status post CABG x 2, status post mitral valve repair for mitral regurgitation status post ST segment elevation [place] with 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 Severe acute blood loss anemia requiring transfusion with a hemoglobin of 5.8 g/dL present on admission likely due to suspected PUD with melena . Transfuse 2 units of PRBC's began in the ER. Transfuse as necessary to keep hemoglobin > 7 g/dL. Continue IV Protonix drip and keep strict NPO. Patient will undergo an upper endoscopy to evaluate upper GI tract. She was explained alternatives, risk, benefits include not withstanding bleeding, infection, sepsis, perforation, need for more discharge and . She will have an ASA of 3. Patient brought back up to the floor is to be optimized. Patient had a panic attack prior to the procedure today. She was noted to be tachycardic. Hopefully if her cardiac issues can be addressed we can do the procedure tomorrow also we can know if it is safe for her to go back on anticoagulation and/or antiplatelet therapy in the near future. 06/16/23-patient is status post EGD and treatment of angiodysplastic lesions. Her blood pressure is still consistently low for some reason. She is not on any blood pressure medicines and her Lasix has been held. Her hemoglobin seems to be stable at 7.9. I will check iron studies in particular iron transferrin saturation, reticulocyte count and ferritin to see if she would benefit from iron transfusions. Diet can be advanced as tolerated. If her hemoglobin goes down then she would likely need a colonoscopy and capsule endoscopy. Charges/Coding Visit Charges Inpatient E&M: 22660 [place] [id number]
--- NOTE | 2023-06-16 17:52 | CASEMGMT ---
RN DANNA Follow-up: This RN CM reviewed pt's PT/OT treatment notes from this date noting pt ambulated 175 ft with FWW and SBA and recommendations for Home health therapy at discharge. This RN CM met with pt and pt's daughter Radha at bedside to discuss results of therapy. Pt states she feels she did well with therapy today and that she would feel comfortable returning home with the support of her walker and is agreeable to home health services including SN, PT, and OT. Pt's daughter Radha included in the discussion and supportive of her mom's decision. Pt states she has been participating in the [facility] programs. This RN CM explained that these programs will be placed on hold while she is receiving skilled home health care but they can be resumed when she is discharged from skilled services. Pt and pt's daughter expressed understanding. List of home health providers in network with pt's insurance and consistent with pt's geographic region and medical needs and including quality and resource use data as printed from [employer] Guide was provided to pt. Pt selected [facility] as her first choice. Referral called to Charleen executive communications manager MANAS CLAY with [facility] to notify of the referral. Will follow-up on Sunday for acceptance and start of care. DC Plan: Home with HH pending acceptance by [facility] for SN, PT, and OT services. Ty Dangelo RN AC
[2023-06-16] MEDS: Erythromycin Base 1 OPTH.TUBE 1 APPLIC LEFT EYE (21:14)
[2023-06-16] MEDS: Pantoprazole Sodium 40 MG Tablet PO (21:14)
[2023-06-17 04:50] VITALS: BP 96/47; PULSE 86; RESP 13; TEMP 36.4; O2SAT 100
[2023-06-17 04:58] VITALS: BMI 30.2
[2023-06-17 08:21] VITALS: BP 109/61; PULSE 87; RESP 20; TEMP 36.3; O2SAT 94
[2023-06-17] MEDS: Pantoprazole Sodium 40 MG Tablet PO (08:24)
[2023-06-17] MEDS: Timolol 0.5% 5ML OPTH.BTL 1 DRP LEFT EYE (08:25)
[2023-06-17] MEDS: Furosemide 40 MG/4 ML Vial IV (08:26)
[2023-06-17] MEDS: 0.9% Saline Lock 10 ML Syringe IV (08:26)
[2023-06-17] MEDS: Carvedilol 3.125 MG TABLET PO (09:10)
[2023-06-17 09:13] LABS: Hematocrit 24.6 % (37-47); Hemoglobin 7.8 g/dL (12.0-15.0)
--- NOTE | 2023-06-17 12:04 | DCINST_ITS ---
Discharge Instructions Diet Discharge Diet: No restrictions and - (Avoid excessive salt) Activity Discharge Activity: Return to Normal Activity Weight Bearing Status: Full weight bearing Follow Up Care Test Results: Test results from this visit will be discussed in further detail at your follow- up appointment, if applicable. Discharge Plan Admission Admit Date/Time: 06/12/23 22:30 Primary Reason for Your Visit: GI bleed, congestive heart failure Attending Provider: Benson Hurst Primary Care Provider: Luiz Avery Consulting Providers: Parker Bergman; Deandre Lozano Instructions Additional Instructions / Restrictions: Do not take valsartan if your blood pressure is under 90 systolic Discharge Orders/Prescriptions Prescriptions: New pantoprazole 40 mg Tablet,Delayed Release (Dr/Ec) 40 mg PO BID Qty: 60 0RF valsartan [Diovan] 40 mg tablet 40 mg PO DAILY Qty: 60 0RF Rx Instructions: 1/day, if blood pressure remains above 90 systolic after 1 week, increase the medication to 1 twice a day Continued acyclovir 800 mg tablet 800 mg PO DAILY difluprednate 0.05 % drops 1 drp OPHTHALMIC Q OTHER DAY timolol maleate 0.5 % drops 1 drp ophthalmic (eye) BID Patient Comments: PT STATES SHE ONLY TAKES ON DAYS SHE DOESNT USE THE DUREZOL Rx Instructions: left eye Eye Health Plus Lutein 300 mcg-200 mg-27 mg-2 mg tablet 1 tab PO BID Farxiga 10 mg tablet 10 mg PO DAILY Qty: 90 3RF atorvastatin 20 mg tablet 20 mg PO QHS Qty: 90 3RF carvedilol [Coreg] 3.125 mg tablet 3.125 mg PO BID Qty: 180 3RF Rx Instructions: must administer with a meal/food digoxin 125 mcg (0.125 mg) tablet 125 mcg PO .COMPLEX Qty: 60 3RF Rx Instructions: 125 mcg orally M/W/F; erythromycin 1 APPLIC ointment 1 applic LEFT EYE QHS Patient Comments: left eye Lubricant Eye (propyl glycol) 0.6 % drops 1 drp EACH EYE DAILY PRN (Reason: DRY EYE) PreserVision AREDS-2 250-90-40-1 mg capsule 1 tab PO BID furosemide 20 mg tablet 10 mg PO DAILY Qty: 45 3RF Held Eliquis 5 mg tablet 5 mg PO BID Qty: 180 3RF Hold Instructions: Hold this medication for 10 days, then resume aspirin 81 MG tablet,chewable 81 mg PO DAILY@0800 Hold Instructions: Hold this medication for 10 days, then resume Discontinued omeprazole 40 MG capsule,delayed release(DR/EC) 40 mg PO DAILY Patient Comments: naproxen sodium 220 mg capsule 220 mg PO BID PRN (Reason: pain) Entresto 24-26 mg tablet 1 tab PO BID Referrals / Follow Up: Luiz Avery MD [Primary Care Provider] - In 1 Week (Please have Dr. Avery check a CBC and a BMP) Disposition Disposition (needs filled in before D/C Order can be placed): Home Health Service
--- NOTE | 2023-06-17 12:11 | PCM.DC.SUM ---
Providers Date of Admission: 06/12/23 Date of Discharge: 06/17/23 Primary Care Physician: Dr. Luiz Avery MD Consultations 06/12/23 22:56 Consult: Gastroenterology Routine Consulting Provider: [facility] Reason for Consult: GI Bleed with Melena EMERGENT Consult: No MD Notified: Yes Date Notified: 06/12/23 Time Notified: 09:17 Method of Notification: Text Reason For Visit: MELANOTIC STOOLS WITH ACUTE BLOOD LOSS ANEMIA REQ Diagnosis Discharge Diagnosis (1) GI bleed: Status: Acute Code(s): K92.2 - Gastrointestinal hemorrhage, unspecified Qualifiers: GI bleed type/associated pathology: melena Qualified Code(s): K92.1 - Melena (2) Anemia: Status: Acute Code(s): D64.9 - Anemia, unspecified Plan 1. 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 #3 ischemic cardiomyopathy-complicates care, medical course, recovery, and prognosis, patient will remain on her current medications including carvedilol and Lasix, patient is also on digoxin, patient did not tolerate Entresto #4 type II [id number] care, medical course, recovery, and prognosis #5 GI bleed-from angiodysplastic lesions in the duodenum, patient will be given a PPI #6 hemorrhagic shock-this is resolved at this time Total clinical time spent by myself addressing the patient's medical issues, reviewing all of her data, and collaborating with patient's care team: 35 minutes Medications at Discharge Home Medications aspirin 81 mg chewable tablet 81 mg PO DAILY@0800 circulation 12/08/16 erythromycin 5 mg/gram (0.5 %) eye ointment 1 applic LEFT EYE [facility] eye health 12/08/16 acyclovir 800 mg tablet 800 mg PO DAILY SHINGLES 09/11/19 difluprednate 0.05 % eye drops 1 drp ophthalmic (eye) Q OTHER DAY 05/13/20 timolol maleate 0.5 % eye drops 1 drp ophthalmic (eye) BID 02/14/22 vit A 300 mcg-C 200 mg-E 27 mg-lutein 2 mg and minerals tablet (Eye Health Plus Lutein) 1 tab PO BID 02/14/22 dapagliflozin propanediol 10 mg tablet (Farxiga) 10 mg PO DAILY #90 tabs 09/19/22 apixaban 5 mg tablet (Eliquis) 5 mg PO BID #180 tabs 02/09/23 atorvastatin 20 mg tablet 20 mg PO QHS #90 tabs 02/09/23 carvedilol 3.125 mg tablet (Coreg) 3.125 mg PO BID #180 tabs 05/16/23 digoxin 125 mcg (0.125 mg) tablet 125 mcg PO .COMPLEX #60 tabs 05/16/23 furosemide 20 mg tablet 10 mg (1/2 x 20 mg) PO DAILY #45 tabs 06/11/23 propylene glycol 0.6 % eye drops (Lubricant Eye (propylene glycol)) 1 drp EACH EYE DAILY PRN DRY EYE 06/12/23 vit C 250 mg-vit E 90 mg-zinc 40 mg-copper 1 [id number] capsule (PreserVision AREDS-2) 1 tab PO BID 06/12/23 pantoprazole 40 mg tablet,delayed release 40 mg PO BID #60 tabs 06/17/23 valsartan 40 mg tablet (Diovan) 40 mg PO DAILY #60 tabs 06/17/23 Hospital Course Operations None Procedures Blood transfusion and EGD Summary of Care Provided Minutes Spent on Discharge: 32 Hospital Course: This 83-year-old white female was seen in the emergency room [facility] with a chief complaint of generalized weakness and malaise she complained of dizziness, she denied falling. She admitted to black and bloody bowel movements over the last several days prior. Labs obtained in the emergency room showed a markedly low hemoglobin of 5.8, white count was normal, and her blood pressure was noted to be low. Patient was admitted to PCU, she was given blood transfusion, she was kept on a PPI, and she was seen in consultation by gastroenterology. Endoscopy was scheduled but unfortunately the patient went into acute respiratory distress from flash pulmonary edema and she was transferred to the ICU for further care. Patient recovered uneventfully from her flash pulmonary edema and underwent an EGD which showed 3 bleeding angiodysplastic lesions in the duodenum. These were treated with a heater probe. On 06/17/2023, patient was seen and examined: On examination she appeared in good health and spirits, she does not appear to be in any distress. Vital signs as documented. Skin warm and dry and without overt rashes. Neck without JVD, thyroid appears normal, trachea is midline, neck is supple. Lungs clear, normal air movement was noted. Heart exam notable for irregular rhythm, normal sounds and absence of murmurs, rubs or gallops. Abdomen unremarkable and without evidence of organomegaly, masses, or abdominal aortic enlargement, bowel sounds are present in all 4 quadrants, no abdominal tenderness was noted. Extremities nonedematous, no cyanosis was noted, no clubbing was noted. Neuro: Cranial nerves II through XII are grossly intact, no focal motor deficits were noted, sensation to light touch and pinprick is intact, motor exam 5/5 throughout. Psych: Patient is alert and oriented x3, she does not appear anxious or depressed, she does not appear agitated. Patient appears stable for discharge home on 06/17/2023, she is at a high risk for readmission due to severe cardiomyopathy with an EF of 10 to 15%. Patient was instructed not to resume her anticoagulation and aspirin for 10 days. I did discuss CODE STATUS briefly with the patient but she did not want to change her CODE STATUS and remained a full code during her hospitalization. Weight / BMI Weight Weight: 77.4 kg Body Mass Index (BMI) 30.2 ABG / Lab / Microbiology Data 06/17/23 09:05 06/16/23 05:20 Laboratory: Laboratory Results - last 24 hr 06/17/23 09:05: Hgb 7.8 L, Hct 24.6 L D/C Instructions Discharge Diet: No restrictions and - (Avoid excessive salt) Weight Bearing Status: Full weight bearing Meaningful Use Info Meaningful Use Diagnoses (Choose all that apply): None applicable Discharge Plan Admission Admit Date/Time: 06/12/23 22:30 Primary Reason for Your Visit: GI bleed, congestive heart failure Attending Provider: Benson Hurst Primary Care Provider: Luiz Avery Consulting Providers: Parker Bergman; Deandre Lozano Instructions Additional Instructions / Restrictions: Do not take valsartan if your blood pressure is under 90 systolic Discharge Orders/Prescriptions Prescriptions: New pantoprazole 40 mg Tablet,Delayed Release (Dr/Ec) 40 mg PO BID Qty: 60 0RF valsartan [Diovan] 40 mg tablet 40 mg PO DAILY Qty: 60 0RF Rx Instructions: 1/day, if blood pressure remains above 90 systolic after 1 week, increase the medication to 1 twice a day Continued acyclovir 800 mg tablet 800 mg PO DAILY difluprednate 0.05 % drops 1 drp OPHTHALMIC Q OTHER DAY timolol maleate 0.5 % drops 1 drp ophthalmic (eye) BID Patient Comments: PT STATES SHE ONLY TAKES ON DAYS SHE DOESNT USE THE DUREZOL Rx Instructions: left eye Eye Health Plus Lutein 300 mcg-200 mg-27 mg-2 mg tablet 1 tab PO BID Farxiga 10 mg tablet 10 mg PO DAILY Qty: 90 3RF atorvastatin 20 mg tablet 20 mg PO QHS Qty: 90 3RF carvedilol [Coreg] 3.125 mg tablet 3.125 mg PO BID Qty: 180 3RF Rx Instructions: must administer with a meal/food digoxin 125 mcg (0.125 mg) tablet 125 mcg PO .COMPLEX Qty: 60 3RF Rx Instructions: 125 mcg orally M/W/; erythromycin 1 APPLIC ointment 1 applic LEFT EYE QHS Patient Comments: left eye Lubricant Eye (propyl glycol) 0.6 % drops 1 drp EACH EYE DAILY PRN (Reason: DRY EYE) PreserVision AREDS-2 250-90-40-1 mg capsule 1 tab PO BID furosemide 20 mg tablet 10 mg PO DAILY Qty: 45 3RF Held Eliquis 5 mg tablet 5 mg PO BID Qty: 180 3RF Hold Instructions: Hold this medication for 10 days, then resume aspirin 81 MG tablet,chewable 81 mg PO DAILY@0800 Hold Instructions: Hold this medication for 10 days, then resume Discontinued omeprazole 40 MG capsule,delayed release(DR/EC) 40 mg PO DAILY Patient Comments: naproxen sodium 220 mg capsule 220 mg PO BID PRN (Reason: pain) Entresto 24-26 mg tablet 1 tab PO BID Referrals / Follow Up: Luiz Avery MD [Primary Care Provider] - In 1 Week (Please have Dr. Avery check a CBC and a BMP) Disposition Disposition (needs filled in before D/C Order can be placed): Home Health Service Charges/Coding Visit Charges Inpatient E&M: 13268 Disch Hosp >30min
[2023-06-17 13:01] VITALS: BP 87/55; PULSE 83; RESP 20; TEMP 36.2; O2SAT 100
--- NOTE | 2023-06-18 12:47 | CASEMGMT ---
RN DANNA F/U: This RN CM received message from Steven with [facility] stating pt has been accepted for SN, PT/OT services with SOC plan for 06/19/23. This RN CM contacted pt via phone to inform of acceptance and SOC. Pt states she spoke with this morning and states she was informed of acceptance and SOC for tomorrow. Pt states she is doing ok since discharge and denies any needs at this time. DC Plan: Home with [facility] SN, PT/OT services Ty Dangelo RN ACM
== END 2023-06-17 14:50 | disposition home health service (06) | DRG 377 ==
LOC: ED 21:24 → ICU 22:52
PROVIDERS: Internal Medicine Gastroenterology; Admitting Provider Internal Medicine; Emergency Provider Emergency Medicine; PCP Family Medicine; Visit Provider Internal Medicine
PROC: 0DJ08ZZ Inspection of Upper Intestinal Tract, Via Natural or Artificial Opening Endoscopic (ICD-10-PCS; CPT 43235; principal; 2023-06-15 18:25)
DX: K31.811 Angiodysplasia of stomach and duodenum with bleeding (principal); R57.8 Other shock; I50.23 Acute on chronic systolic (congestive) heart failure; I21.A1 Myocardial infarction type 2; D62 Acute posthemorrhagic anemia; I11.0 Hypertensive heart disease with heart failure; I25.5 Ischemic cardiomyopathy; I25.10 Atherosclerotic heart disease of native coronary artery without angina pectoris; E87.6 Hypokalemia; K44.9 Diaphragmatic hernia without obstruction or gangrene; I25.2 Old myocardial infarction; E83.42 Hypomagnesemia; R79.1 Abnormal coagulation profile; F41.0 Panic disorder [episodic paroxysmal anxiety]; T45.515A Adverse effect of anticoagulants, initial encounter; F41.1 Generalized anxiety disorder; Z79.82 Long term (current) use of aspirin; Z79.1 Long term (current) use of non-steroidal anti-inflammatories (NSAID); Z79.01 Long term (current) use of anticoagulants; Z79.899 Other long term (current) drug therapy; Z95.1 Presence of aortocoronary bypass graft; Z95.0 Presence of cardiac pacemaker; Z95.5 Presence of coronary angioplasty implant and graft; Z87.891 Personal history of nicotine dependence
CPT/HCPCS: 36600; 71045; 74174; 80048; 80053; 80162; 82803; 83605; 83690; 83735; 84100; 84443; 84484; 85014; 85018; 85025; 85610; 85730; 86850; 86900; 86901; 86920; 86922; 93005; 94002; 97110; 97116; 97162; 97166; 97530; 97535; 97802; 99285; J7030; J7050; J7120; P9016; Q9967; A4216; J1940; J2405; J3490

== ENCOUNTER 2023-06-27 12:40 | Emergency (ER) | payer MEDICARE, SELFPAY ==
[2023-06-27] VITALS (7 sets, daily range): BP systolic 99–106; BP diastolic 48–63; PULSE 79–91; RESP 19–29; TEMP 36.1–37.3; O2SAT 95–100; BMI 26.6
--- NOTE | 2023-06-27 13:04 | EKG12_ITS ---
Test Reason : GI BLEED Blood Pressure : / mmHG Vent. Rate : 085 BPM Atrial Rate : 085 BPM P-R Int : 190 ms QRS Dur : 186 ms QT Int : 462 ms P-R-T Axes : 000 -47 108 degrees QTc Int : 549 ms Poor data quality, interpretation may be adversely affected Atrial-sensed ventricular-paced rhythm Abnormal ECG Confirmed by CHAN CHAPA, SHANTA ([id number]), general expeditor ORLIN MALHOTRA ([id number]) on 07/02/2023 6:58:09 AM Referred By: Confirmed By:PHILLIP GILES MD
--- NOTE | 2023-06-27 13:10 | ED.VIS.DYS ---
HPI History of Present Illness Chief Complaint: Shortness of Breath Informant: patient and family Narrative Narrative: Patient is an 83-year-old female with history of coronary artery disease, diastolic heart failure and proximal atrial fibrillation with recent admission for bleeding ulcer requiring blood transfusion and hospital course complicated by episode of flash pulmonary edema requiring ICU stay. Patient was discharged home on 06/17 (10 days ago). She had outpatient follow-up today with her PCP. In the office she was noticed to be short of breath and very pale. She sent to the ER for further evaluation. Patient notes that she has been more short of breath over the past 3 days. States prior 2 days she is willing to improve throughout the day but today she has been short of breath all day. Denies any new swelling of her legs or cough. She denies any fever or chills. Denies any sick contacts. Notes that she has had some diarrhea which she attributes to her new Protonix prescription but states her stools have been yellow. Denies any black or blood in her stool. Denies excess abdominal pain. Denies any chest pain. No other complaints or concerns at this time. Patient states that from the hospital she has been feeling weak but denies any particular dizziness or lightheadedness. [facility] Medical History Acute kidney injury Anemia Anticoagulant long-term use Anxiety Atherosclerosis of coronary artery of [place] heart without angina pectoris Chronic anemia Essential (primary) hypertension Fractured sternum GI bleed HFrEF (heart failure with reduced ejection fraction) History of ST elevation myocardial infarction (STEMI) (11/16/18) History of vertigo Ischemic cardiomyopathy Medication induced coagulopathy Mobitz (type) II atrioventricular block Non-ischemic cardiomyopathy 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) Home Medications aspirin 81 mg chewable tablet 81 mg PO DAILY HEART HEALTH 12/08/16 [History Last Taken 06/16/23] erythromycin 5 mg/gram (0.5 %) eye ointment 1 applic LEFT EYE QHS EYE INFECTION 12/08/16 [History Last Taken 06/26/23] acyclovir 800 mg tablet 800 mg PO DAILY SHINGLES 09/11/19 [History Last Taken 06/27/23] difluprednate 0.05 % eye drops 1 drp ophthalmic (eye) QODAY SWELLING/PAIN 05/13/20 [History Last Taken 06/10/23] timolol maleate 0.5 % eye drops 1 drp ophthalmic (eye) BID GLAUCOMA 02/14/22 [History Last Taken 06/11/23] dapagliflozin propanediol 10 mg tablet (Farxiga) 10 mg PO DAILY BLOOD SUGARS #90 tabs 09/19/22 [Rx Last Taken 06/27/23] apixaban 5 mg tablet (Eliquis) 5 mg PO BID BLOOD THINNER #180 tabs 02/09/23 [Rx Last Taken 06/16/23] atorvastatin 20 mg tablet 20 mg PO QHS CHOLESTEROL #90 tabs 02/09/23 [Rx Last Taken 06/26/23] carvedilol 3.125 mg tablet (Coreg) 3.125 mg PO BID HEART #180 tabs 05/16/23 [Rx Last Taken 06/27/23] furosemide 20 mg tablet 10 mg (1/2 x 20 mg) PO DAILY EDEMA #45 tabs 06/11/23 [Rx Last Taken 06/27/23] propylene glycol 0.6 % eye drops (Lubricant Eye (propylene glycol)) 1 drp EACH EYE DAILY PRN DRY EYE 06/12/23 [History Last Taken Unknown] vit C 250 mg-vit E 90 mg-zinc 40 mg-copper 1 [id number] capsule (PreserVision AREDS-2) 1 tab PO BID EYE HEALTH 06/12/23 [History Last Taken 06/27/23] pantoprazole 40 mg tablet,delayed release 40 mg PO BID GERD #60 tabs 06/17/23 [Rx Last Taken 06/27/23] valsartan 40 mg tablet (Diovan) 40 mg PO DAILY BLOOD PRESSURE #60 tabs 06/17/23 [Rx Last Taken 06/27/23] digoxin 125 mcg (0.125 mg) tablet 125 mcg PO MOWEFR HEART FAILURE 06/27/23 [History Last Taken 06/27/23] Allergy/AdvReac Type Severity Reaction Status Date / Time morphine Allergy Vomiting Verified 06/27/23 12:42 sacubitril [From Entresto] AdvReac Intermediate Hypotension Verified 06/27/23 12:42 on lowest dose valsartan [From Entresto] AdvReac Intermediate Hypotension Verified 06/27/23 12:42 on lowest dose Family History Father Heart disease Mother Heart disease Chronic anemia Iron deficiency Surgical History History of coronary artery stent placement (12/19/18) History of left heart catheterization (06/21/20) Presence of permanent cardiac pacemaker (08/02/18) S/P CABG x 2 S/P mitral valve repair Social History household members: none Smoking Status: Former smoker how long ago did patient quit smoking: Quit in 1967. alcohol intake: never substance use type: does not use caffeine: Yes Type: coffee Number of servings: 2 ROS ROS ED Constitutional Constitutional ED: Denies chills or fever(s) Eyes Eyes: Denies change in vision Cardiovascular Cardiovascular: Denies chest pain Respiratory/Chest Respiratory/Chest: Reports dyspnea and dyspnea on exertion; Denies cough Gastrointestinal Gastrointestinal: Reports diarrhea; Denies abdominal pain, melena, nausea or vomiting Musculoskeletal Musculoskeletal: Denies arthralgias or myalgias Integumentary Denies rash Neurologic Neurologic: Reports weakness; Denies headache(s) Psychiatric Psychiatric: Denies anxiety Hematologic/Lymphatic Hematologic/Lymphatic: Denies easy bleeding or easy bruising EXAM Physical Exam Const Vital Signs: 06/27/23 12:43 06/27/23 12:45 06/27/23 16:23 Temperature 96.9 F L Temperature Source Temporal Pulse Rate 88 87 Respiratory Rate 20 H 21 H Respiratory Effort Short of Breath Respiratory Depth Normal Respiratory Pattern Normal Blood Pressure 101/48 L 99/48 L Blood Pressure Mean 65 65 Pulse Ox 100 97 Oxygen Delivery Method Room Air Room Air Room Air 06/27/23 16:23 06/27/23 16:30 06/27/23 16:40 Temperature Temperature Source Pulse Rate 91 79 79 Respiratory Rate 29 H 24 H 25 H Respiratory Effort Respiratory Depth Respiratory Pattern Blood Pressure 105/63 Blood Pressure Mean 76 Pulse Ox 97 97 98 Oxygen Delivery Method 06/27/23 16:45 06/27/23 16:50 Temperature Temperature Source Pulse Rate 81 81 Respiratory Rate 19 H 23 H Respiratory Effort Respiratory Depth Respiratory Pattern Blood Pressure 100/53 L Blood Pressure Mean 68 Pulse Ox 99 98 Oxygen Delivery Method Room Air Positive well nourished and well developed General Appearance ED: well developed, NAD and pallor HEENT Reports moist mucous membranes atraumatic Eyes PERRL and EOMs intact bilaterally General Eye ED: Yes pale conjunctiva; Negative for scleral icterus Neck supple and no JVD Resp clear to auscultation bilaterally Resp Narrative: Mild tachypnea. Good breath sounds throughout with no crackles appreciated. Cardio regular rate, regular rhythm and no murmurs GI non-tender and non-distended Palpation: soft; Negative for guarding Back/Spine no CVA tenderness Neuro oriented x3 Sensorium / Orientation: alert Motor Exam: Negative for general weakness Psych mental status grossly normal Skin no wounds General Skin Exam: pallor; Negative for jaundice MDM MDM MDM Narrative Medical decision making narrative: Patient presents for increased shortness of breath. Patient had a recent hospitalization for anemia associate with upper GI bleed and subsequently had exacerbation of heart failure/flash pulmonary edema. She notes for the past 2 to 3 days she has been more short of breath. Denies related to complaints at this time. Not having any new black or blood in her stool. Has been off of her anticoagulation. Was noted to be pale and short of breath at the office today for outpatient PCP follow-up was sent in for further evaluation. Patient's hemodynamically stable in the ER. BP is low normal, but this appears to be her baseline. Patient has a stable anemia with hemoglobin 7.7, it was 7.810 days ago when she was discharged from the hospital. She does not have a leukocytosis. Her platelets are normal. Given that I do not think symptomatic anemia as a cause of her acute onset of shortness of breath, I did add on a D-dimer which is elevated at 0.95. CTA is obtained to rule out PE. In addition her other labs are largely normal. Her BNP is elevated but significantly downtrending. She does have an elevation of her creatinine of 1.52 but this appears to be near her baseline. 2 view chest x-ray viewed by myself as well as radiology shows slight increased diffuse interstitial prominence compared to prior study with no other acute abnormality. Her CTA shows no evidence of PE with cardiomegaly, diffuse interstitial fibrosis worse at the lung bases and bilateral pleural effusions right greater than left. Patient is ambulate in the ER and does quite well with no desaturations. Her high sensitive troponin is normal. Her EKG is paced and does not show any acute strain pattern. I did discuss admitting the patient for transfusion, monitoring her fluid status and seeing if further blood transfusion would improve her shortness of breath. Patient declined stating that she does not want to be admitted. Given that she does not have any hemodynamic stability, hypoxia and her hemoglobin is stable I think is reasonable to follow-up outpatient. I did call her PCP, Dr. Avery, about her findings and he will continue to follow-up outpatient. Patient given return precautions. Her and her daughter verbalized agreement nursing of this plan. Discharged home in stable condition History & Record Review Additional record(s) reviewed:: Prior inpatient record (Prior admisison/Rylan elizabeth ) and Prior labs Lab Data Attestation: I reviewed the patient's lab results. Labs: Laboratory Results - last 24 hr 06/27/23 06/27/23 13:20 13:55 WBC 7.7 RBC 2.77 L Hgb 7.7 L Hct 25.7 L MCV 92.8 MCH 27.8 MCHC 30.0 L RDW Std Deviation 54.3 H RDW Coeff of Sakina 15.8 H Plt Count 301 MPV 10.3 Immature Gran % (Auto) 0.400 Neut % (Auto) 74.1 H Lymph % (Auto) 16.7 L [place] % (Auto) 5.3 Eos % (Auto) 2.7 Baso % (Auto) 0.8 Absolute Neuts (auto) 5.7 Absolute Lymphs (auto) 1.28 Nucleated RBC % 0 D-Dimer Quant (PE/DVT) 0.95 H* Sodium 140 Potassium 4.4 Chloride 109 H Carbon Dioxide 25.0 Anion Gap 6 BUN 20 H Creatinine 1.52 H Estim Creat Clear Calc 25.52 Est GFR (MDRD) Af Amer 42 L Est GFR (MDRD) Non-Af 35 L BUN/Creatinine Ratio 13.2 Glucose 134 H Calcium 8.9 Total Bilirubin 0.60 AST 17 ALT 12 L Alkaline Phosphatase 90 Troponin I High Sens 20 B-Natriuretic Peptide 1040.3 H Total Protein 6.2 L Albumin 2.8 L Globulin 3.4 Albumin/Globulin Ratio 0.8 L Blood Type O POSITIVE Antibody Screen NEGATIVE Radiography Diagnostic Testing: Clinical Impression(s) from Imaging Studies Chest X-Ray 06/27/23 13:35 IMPRESSION: Slight increased diffuse interstitial prominence compared to the prior study. No acute abnormality. Follow-up chest imaging to resolution recommended. Electronically Signed: Cale Garcia MD at 13:51 EST , Chest CTA 06/27/23 15:09 IMPRESSION: No evidence of pulmonary embolism. Cardiomegaly with prominence of the right atrium. Diffuse interstitial fibrosis worse at the lung bases. Bilateral pleural effusions right greater than left. Electronically Signed: Carl Hillman MD at 15:51 EST , Rhythm Strip Rhythm Strip: Paced Rate: 85 Ectopy: None EKG Initial EKG: Attestation: I personally reviewed and interpreted this EKG as follows: Interpretation: Paced Comments: Atrial sensed/ventricular paced rhythm at a rate of 85 bpm Left axis deviation Management Discussion w/another healthcare provider: PCP Discharge Plan Triage Chief Complaint: Shortness of Breath ED Provider: Sherry Matta Dx/Rx/DC Orders Clinical Impression: WIN (dyspnea on exertion), Chronic diastolic (congestive) heart failure, Anemia Instructions: ED Dyspnea Prescriptions: No Action acyclovir 800 mg tablet 800 mg PO DAILY difluprednate 0.05 % drops 1 drp OPHTHALMIC QODAY timolol maleate 0.5 % drops 1 drp ophthalmic (eye) BID Patient Comments: PT STATES SHE ONLY TAKES ON DAYS SHE DOESNT USE THE DUREZOL. DUREZOL IS USED EVRY OTHER DAY. Rx Instructions: INSTILL ONE DROP INTO THE LEFT EYE TWICE DAILY. dapagliflozin propanediol [Farxiga] 10 mg tablet 10 mg PO DAILY Qty: 90 3RF Eliquis 5 mg tablet 5 mg PO BID Qty: 180 3RF Hold Instructions: HOLD FOR 10 DAYS (06/17/23 - 06/27/23), THEN RESUME atorvastatin 20 mg tablet 20 mg PO QHS Qty: 90 3RF carvedilol [Coreg] 3.125 mg tablet 3.125 mg PO BID Qty: 180 3RF Rx Instructions: must administer with a meal/food erythromycin 1 APPLIC ointment 1 applic LEFT EYE QHS Rx Instructions: APPLY ONE APPLICATION TO LEFT EYE ONCE DAILY AT BEDTIME aspirin 81 MG tablet,chewable 81 mg PO DAILY Hold Instructions: HOLD FOR 10 DAYS (06/17/23 - 06/27/23), THEN RESUME Lubricant Eye (propyl glycol) 0.6 % drops 1 drp EACH EYE DAILY PRN (Reason: DRY EYE) PreserVision AREDS-2 250-90-40-1 mg capsule 1 tab PO BID pantoprazole 40 mg Tablet,Delayed Release (Dr/Ec) 40 mg PO BID Qty: 60 0RF valsartan [Diovan] 40 mg tablet 40 mg PO DAILY Qty: 60 0RF Rx Instructions: 1/day, if blood pressure remains above 90 systolic after 1 week, increase the medication to 1 twice a day digoxin 125 mcg (0.125 mg) tablet 125 mcg PO MOWEFR furosemide 20 mg tablet 10 mg PO DAILY Qty: 45 3RF Primary Care Provider: Luiz Avery Referrals: Luiz Avery MD [Primary Care Provider] - Activity Restrictions/Additional Instructions: If your oxygen goes below 90 at home or your symptoms progress or worsen please return to the emergency room. At this time everything appears stable and he did not require admission. Please continue to follow-up outpatient with your equipment detailer and your primary care doctor. Disposition Disposition: Home, Self Care
--- NOTE | 2023-06-27 13:35 | RAD_ITS ---
STUDY: X-RAY CHEST REASON FOR EXAM: Female, 83 years old. Shortness of breath. TECHNIQUE: Frontal and lateral views of the chest. COMPARISON: 06/15/2023 FINDINGS: Stable cardiomegaly, sternotomy wires, dual lead cardiac pacer, left atrial appendage closure device, aortic tortuosity with calcification and prominent central pulmonary arteries. Slight increased diffuse interstitial prominence compared to the prior study. Small bilateral pleural effusions, left greater than right. No abnormality of the visualized soft tissue structures of the upper abdomen. RAD/Chest PA and Lateral IMPRESSION: Slight increased diffuse interstitial prominence compared to the prior study. No acute abnormality. Follow-up chest imaging to resolution recommended. Electronically Signed: Cale Garcia MD at 13:51 EST ,
[2023-06-27 13:39] LABS: Absolute Lymphocyte Count 1.28 X10^3/uL (0.83-4.51); Absolute Neutrophil Count 5.7 X10^3/uL (2.0-7.7); Basophil# 0.06 X10^3/uL; Basophil% 0.8 % (0-1); Eosinophil# 0.21 X10^3/uL; Eosinophils% 2.7 % (0-5); Hematocrit 25.7 % (37-47); Hemoglobin 7.7 g/dL (12.0-15.0); Lymphocyte # 1.28 X10^3/ul (0.83-4.51); Lymphocyte % 16.7 % (19-41); Mean Corpuscular Hgb 27.8 pg (27.0-32.0); Mean Corpuscular Volume 92.8 fL (81-99); Mean Platelet Vol. 10.3 fl (6.2-12.0); Monocyte# 0.41 X10^3/uL; Monocyte% 5.3 % (0-10); NRBC Flagged by Analyzer 0 % (0-5); Neutrophil # 5.69 X10^3/uL (2.7-7.7); Neutrophil % 74.1 % (47-70); Platelet Count 301 K/mm3 (150-450); RBC Distribution Width CV 15.8 % (11.6-14.6); RBC Distribution Width SD 54.3 fl (35.1-43.9); Red Blood Count 2.77 M/mm3 (4.2-5.4); White Blood Count 7.7 K/mm3 (4.4-11.0)
[2023-06-27 13:58] LABS: ALB/GLOB Ratio 0.8 RATIO (0.9-2.4); AST(SGOT) 17 U/L (15-37); Alanine Aminotransfer ALT/SGPT 12 U/L (13-56); Albumin, Serum 2.8 g/dL (3.2-5.0); Alkaline Phosphatase 90 U/L (45-117); Anion Gap 6 (5-15); BUN 20 mg/dL (7-18); BUN/Creat Ratio 13.2 RATIO (10-20); Calcium,Total 8.9 mg/dL (8.5-10.1); Chloride 109 mmol/L (98-107); Creatinine, Serum 1.52 mg/dL (0.55-1.02); EST Glomerular Filtration Rate 35 mL/min (>60); Est Glom Filt Rate - Afr Amer 42 mL/min (>60); Estimated Creatinine Clearance 25.52 ml/min; Globulin 3.4 g/dL (2.2-4.2); Glucose 134 mg/dL (74-106); Potassium 4.4 mmol/L (3.5-5.1); Protein, Total 6.2 g/dL (6.4-8.2); Sodium Level 140 mmol/L (136-145); Troponin-I HS 20 pg/mL (3.0-54.0)
[2023-06-27 14:01] LABS: BNP,B-Type NATRIURETIC PEPTIDE 1040.3 pg/mL (0-100)
[2023-06-27 14:58] LABS: D-Dimer Quantitative (DVT/PE) 0.95 FEU/ug/m (0.27-0.49)
--- NOTE | 2023-06-27 15:09 | CT_ITS ---
STUDY: CTA CHEST REASON FOR EXAM: Female, 83 years old. SOB, PE study RADIATION DOSAGE (If Supplied By Facility): CTDIvol = ( 12.73 ) mGy, DLP = ( 375.08 ) mGycm TECHNIQUE: The examination was performed with the intravenous administration of IV 75mL Isovue-370. Post-processing of the angiographic images was performed, with multiplanar reformation and 3D reconstruction. Individualized dose optimization techniques were used for this CT. COMPARISON: Comparison is made with prior chest radiograph done earlier today. FINDINGS: Normal enhancement of the main pulmonary artery and right and left pulmonary arteries. Normal enhancement of the bilateral peripheral pulmonary arteries. There is no demonstrated pulmonary embolism. Normal thoracic aorta and visualized great vessels. There is no demonstrated aortic dissection. There are calcifications of the coronary arteries. Cardiomegaly. Normal mediastinum. Normal hilar regions. Normal visualized trachea and bronchi. The lungs are well expanded. Small right pleural effusion. Tiny left pleural effusion. Prominence of the interstitial markings with evidence of scarring and subpleural blebs worse in the lower lobes. Calcified granuloma in the left lower lobe. Normal chest wall structures. There are degenerative changes of thoracic spine. Large hiatal hernia. CT/CTA Chest W/WO Contrast IMPRESSION: No evidence of pulmonary embolism. Cardiomegaly with prominence of the right atrium. Diffuse interstitial fibrosis worse at the lung bases. Bilateral pleural effusions right greater than left. Electronically Signed: Carl Hillman MD at 15:51 EST ,
== END 2023-06-27 17:25 | disposition home or self-care (01) ==
PROVIDERS: Emergency Provider Emergency Medicine; PCP Family Medicine; Visit Provider Emergency Medicine
DX: R06.09 Other forms of dyspnea (principal); I11.0 Hypertensive heart disease with heart failure; I50.42 Chronic combined systolic (congestive) and diastolic (congestive) heart failure; I48.0 Paroxysmal atrial fibrillation; D64.9 Anemia, unspecified; Z87.891 Personal history of nicotine dependence; I25.10 Atherosclerotic heart disease of native coronary artery without angina pectoris; Z79.899 Other long term (current) drug therapy; R19.7 Diarrhea, unspecified
CPT/HCPCS: 71046; 71275; 80053; 83880; 84484; 85025; 85379; 86850; 86900; 86901; 87631; 93005; 99284; Q9967; A4216

== ENCOUNTER → 2023-07-19 | Outpatient (CLI) | payer MEDICARE, SELFPAY ==
[2023-07-19 16:13] LABS: Mucous, Urine 0 SEEN /hpf (<or=2+); Red Blood Cells-Urine 0 SEEN /hpf (0-5)
[2023-07-19 16:48] LABS: Hemoglobin 8.4 g/dL (12.0-15.0); Mean Corpuscular Hgb 26.5 pg (27.0-32.0); Mean Corpuscular Volume 91.5 fL (81-99); Mean Platelet Vol. 10.8 fl (6.2-12.0); Platelet Count 262 K/mm3 (150-450); RBC Distribution Width CV 18.8 % (11.6-14.6); RBC Distribution Width SD 62.8 fl (35.1-43.9); Red Blood Count 3.17 M/mm3 (4.2-5.4); White Blood Count 7.1 K/mm3 (4.4-11.0)
[2023-07-19 16:51] LABS: Color, Urine Yellow (Yellow); Glucose, Dipstick 1000 mg/dl (Normal); Ketone-Dipstick Negative (Negative); Leukocyte Esterase-Dipstick 100 /ul (Negative); Nitrite-Dipstick Negative (Negative); Occult Blood-Urine 10 /ul (Negative); Protein-Dipstick 30 mg/dl (Negative); Specific Gravity, Urine 1.015 (1.002-1.030); Urine Bilirubin Dipstick Negative (Negative); Urine Clarity Sl. Cloudy (Clear); Urine Urobilinogen Normal (Normal); Urine pH 6.5 (5.0 - 8.0)
[2023-07-19 16:57] LABS: Squamous Epithelial Cells - UA 5-10 SEEN /hpf (5-10); White Blood Cells 0-5 SEEN /hpf (0-5)
[2023-07-19 16:58] LABS: Bacteria RARE /hpf (None Seen)
[2023-07-19 17:08] LABS: Anion Gap 8 (5-15); BUN 23 mg/dL (7-18); BUN/Creat Ratio 17.6 RATIO (10-20); Calcium,Total 8.8 mg/dL (8.5-10.1); Chloride 107 mmol/L (98-107); Creatinine, Serum 1.31 mg/dL (0.55-1.02); EST Glomerular Filtration Rate 41 mL/min (>60); Est Glom Filt Rate - Afr Amer 50 mL/min (>60); Ferritin 43 ng/mL (8-252); Glucose 102 mg/dL (74-106); Iron 20 ug/dL (50-170); Iron Binding Capacity,Total 400 ug/dL (250-450); Phosphorus 3.9 mg/dL (2.5-4.9); Potassium 3.8 mmol/L (3.5-5.1); Sodium Level 142 mmol/L (136-145)
[2023-07-19 17:22] LABS: BNP,B-Type NATRIURETIC PEPTIDE 1174.3 pg/mL (0-100)
[2023-07-19 22:56] LABS: Albumin, Serum 3.1 g/dL (3.2-5.0)
== END | disposition home or self-care (01) ==
LOC: POLAB3 16:03
PROVIDERS: Physician Assistant Medical; PCP Family Medicine; Visit Provider Internal Medicine Nephrology
DX: N18.32 Chronic kidney disease, stage 3b (principal); N17.9 Acute kidney failure, unspecified; I42.8 Other cardiomyopathies; I50.32 Chronic diastolic (congestive) heart failure; D50.9 Iron deficiency anemia, unspecified; R06.02 Shortness of breath; R42 Dizziness and giddiness
CPT/HCPCS: 36415; 80048; 81001; 82040; 82728; 83540; 83550; 83880; 84100; 85027

== ENCOUNTER → 2023-08-31 | Outpatient (CLI) | payer MEDICARE, SELFPAY ==
[2023-08-31 11:39] LABS: Anion Gap 7 (5-15); BUN 29 mg/dL (7-18); BUN/Creat Ratio 18.5 RATIO (10-20); Calcium,Total 9.7 mg/dL (8.5-10.1); Chloride 100 mmol/L (98-107); Creatinine, Serum 1.57 mg/dL (0.55-1.02); EST Glomerular Filtration Rate 33 mL/min (>60); Est Glom Filt Rate - Afr Amer 40 mL/min (>60); Glucose 117 mg/dL (74-106); Potassium 3.5 mmol/L (3.5-5.1); Sodium Level 137 mmol/L (136-145)
== END | disposition home or self-care (01) ==
PROVIDERS: PCP Family Medicine; Referring Provider Nurse Practitioner Family; Visit Provider Nurse Practitioner Family
DX: Z51.81 Encounter for therapeutic drug level monitoring (principal); Z79.899 Other long term (current) drug therapy
CPT/HCPCS: 36415; 80048

== ENCOUNTER → 2023-11-02 | Outpatient (CLI) | payer MEDICARE, SELFPAY ==
[2023-11-02 14:16] LABS: Hematocrit 40.2 % (37-47); Hemoglobin 12.8 g/dL (12.0-15.0); Mean Corp Hgb Conc 31.8 g/dL (32-36); Mean Corpuscular Hgb 29.4 pg (27.0-32.0); Mean Corpuscular Volume 92.4 fL (81-99); Mean Platelet Vol. 10.1 fl (6.2-12.0); POSITIVE MORPHOLOGY YES; Platelet Count 224 K/mm3 (150-450); RBC Distribution Width CV 19.8 % (11.6-14.6); RBC Distribution Width SD 68.1 fl (35.1-43.9); Red Blood Count 4.35 M/mm3 (4.2-5.4); White Blood Count 11.5 K/mm3 (4.4-11.0)
[2023-11-02 14:18] LABS: Scan Indicated on CBC? Y/N YES- FLAGS NOTED
[2023-11-02 14:45] LABS: Albumin, Serum 3.8 g/dL (3.2-5.0); BUN 26 mg/dL (7-18); BUN/Creat Ratio 15.4 RATIO (10-20); Calcium,Total 10.1 mg/dL (8.5-10.1); Chloride 100 mmol/L (98-107); Creatinine, Serum 1.69 mg/dL (0.55-1.02); EST Glomerular Filtration Rate 31 mL/min (>60); Est Glom Filt Rate - Afr Amer 37 mL/min (>60); Glucose 101 mg/dL (74-106); Phosphorus 3.6 mg/dL (2.5-4.9); Potassium 4.5 mmol/L (3.5-5.1); Sodium Level 139 mmol/L (136-145)
== END | disposition home or self-care (01) ==
LOC: LAB 13:43
PROVIDERS: PCP Family Medicine; Referring Provider Internal Medicine Nephrology; Visit Provider Internal Medicine Nephrology
DX: N18.32 Chronic kidney disease, stage 3b (principal); D50.9 Iron deficiency anemia, unspecified
CPT/HCPCS: 36415; 80069; 85027

== ENCOUNTER → 2023-11-12 | Outpatient (CLI) | payer MEDICARE, SELFPAY ==
--- NOTE | 2023-11-12 12:56 | ECHOLC_ITS ---
Version 2 Reason For Study: Dyspnea/SOB Procedure This was a 2D Doppler, Color Flow transthoracic echocardiogram. Contrast injection was performed. Exam performed in department. Left Ventricle Normal left ventricle. The left ventricular ejection fraction is 15 %. Anterior [place] : Akinetic. Mid-Anterior : Akinetic. Mid-anteroseptal : Akinetic. The rest of the wall segments are hypokinetic. Right Ventricle Normal RV size. ICD or pacer leads identified within the right ventricle. Normal systolic function. Atria The left atrium is mildly enlarged. The right atrium is mildly enlarged. Mitral Valve Mild (1+) eccentric mitral valve insufficiency. Status post mitral valve repair with annuloplasty ring. Tricuspid Valve Normal tricuspid valve. Mild to moderate (1-2+) tricuspid valve insufficiency. Pulmonary artery systolic pressure is 42 mmHg. Aortic Valve Trisinus/trileaflet aortic valve. Mild focal aortic valve calcification. Pulmonic Valve The pulmonic valve is not well visualized. Great Vessels Normal aortic root. Pericardium/Pleural No pericardial effusion. Medication 22 gauge I.V. with prn adaptor inserted into right arm. Diluted definity 2ml given slow IV push to enhance endocardial definition. MMode/2D Measurements & Calculations LVIDd: 5.1 cm IVSd: 0.92 cm LAV(MOD-bp): 66.9 ml LVIDs: 4.9 cm LVPWd: 0.80 cm RVDd: 4.3 cm FS: 5.2 % LAV(MOD-bp) Indexed: 41.0 ml/m2 LAV(MOD-sp2): 57.4 ml LAV(MOD-sp4): 77.3 ml SV(MOD-sp4): 22.9 ml SV(sp4-el): 22.3 ml LVAd ap4: 42.8 cm2 LVLd ap4: 7.9 cm EDV(MOD-sp4): 189.9 ml EDV(sp4-el): 195.6 ml LVAs ap4: 38.6 cm2 LVLs ap4: 7.3 cm ESV(MOD-sp4): 166.9 ml ESV(sp4-el): 173.3 ml EF(MOD-sp4): 12.1 % EF(sp4-el): 11.4 % LA A4 area: 23.9 cm2 RA A4 area: 21.1 cm2 Doppler Measurements & Calculations MR max stephania: 443.0 cm/sec TR max stephania: 310.8 cm/sec MR max P.5 mmHg TR max P.6 mmHg ECHO/Echo Limited w/Contrast Interpretation Summary Status post mitral valve repair with annuloplasty ring. The left ventricular ejection fraction is 15 %. Mild focal aortic valve calcification. The left atrium is mildly enlarged. Contrast injection was performed. Ordering Physician: Мария Eubanks Referring Physician: Мария Eubanks Performed By: Michael Walls RCS
== END | disposition home or self-care (01) ==
LOC: CVS 12:56
PROVIDERS: PCP Family Medicine; Referring Provider Physician Assistant Medical; Visit Provider Physician Assistant Medical
DX: I25.5 Ischemic cardiomyopathy (principal); R06.02 Shortness of breath
CPT/HCPCS: 93308; Q9957; A4216; C8924

== ENCOUNTER → 2024-06-21 | Outpatient (CLI) | payer MEDICARE, SELFPAY ==
[2024-06-21 10:48] LABS: Hematocrit 40.7 % (37-47); Hemoglobin 13.2 g/dL (12.0-15.0); Mean Corp Hgb Conc 32.4 g/dL (32-36); Mean Corpuscular Hgb 32.9 pg (27.0-32.0); Mean Corpuscular Volume 101.5 fL (81-99); Mean Platelet Vol. 9.6 fl (6.2-12.0); Platelet Count 219 K/mm3 (150-450); RBC Distribution Width CV 13.5 % (11.6-14.6); RBC Distribution Width SD 50.5 fl (35.1-43.9); Red Blood Count 4.01 M/mm3 (4.2-5.4); White Blood Count 8.9 K/mm3 (4.4-11.0)
[2024-06-21 11:11] LABS: Albumin, Serum 3.4 g/dL (3.2-5.0); BUN 32 mg/dL (7-18); BUN/Creat Ratio 16.2 RATIO (10-20); Calcium,Total 9.3 mg/dL (8.5-10.1); Chloride 106 mmol/L (98-107); Creatinine, Serum 1.97 mg/dL (0.55-1.02); EST Glomerular Filtration Rate 26 mL/min (>60); Est Glom Filt Rate - Afr Amer 31 mL/min (>60); Glucose 72 mg/dL (74-106); Phosphorus 3.9 mg/dL (2.5-4.9); Potassium 4.3 mmol/L (3.5-5.1); Sodium Level 140 mmol/L (136-145)
== END | disposition home or self-care (01) ==
LOC: LAB 10:27
PROVIDERS: PCP Family Medicine; Referring Provider Internal Medicine Nephrology; Visit Provider Internal Medicine Nephrology
DX: N18.32 Chronic kidney disease, stage 3b (principal); D50.9 Iron deficiency anemia, unspecified
CPT/HCPCS: 36415; 80069; 85027

== ENCOUNTER → 2024-06-26 | Outpatient (CLI) | payer MEDICARE, SELFPAY ==
[2024-06-26 12:24] LABS: Anion Gap 9 (5-15); BUN 33 mg/dL (4-19); BUN/Creat Ratio 19.9 RATIO (10-20); Calcium 9.9 mg/dL (7.6-11.0); Carbon Dioxide 26.1 mmol/L (22.0-29.0); Chloride 105 mmol/L (96-108); Creatinine, Serum 1.6 mg/dL (0.6-1.0); EST Glomerular Filtration Rate 30 (>60); Glucose 95 mg/dL (70-99); Potassium 4.5 mmol/L (3.3-5.1); Sodium Level 140 mmol/L (133-145)
== END | disposition home or self-care (01) ==
LOC: POLAB3 10:04
PROVIDERS: PCP Family Medicine; Visit Provider Internal Medicine Nephrology
DX: N17.9 Acute kidney failure, unspecified (principal); N18.9 Chronic kidney disease, unspecified
CPT/HCPCS: 36415; 80048

== ENCOUNTER → 2024-07-30 | Outpatient (CLI) | payer MEDICARE, SELFPAY ==
[2024-07-30 08:58] LABS: Anion Gap 10 (5-15); BUN 26 mg/dL (4-19); BUN/Creat Ratio 14.7 RATIO (10-20); Calcium,Total 9.1 mg/dL (7.6-11.0); Carbon Dioxide 22.5 mmol/L (21.0-32.0); Chloride 107 mmol/L (98-108); Creatinine, Serum 1.75 mg/dL (0.70-1.20); EST Glomerular Filtration Rate 28 (>60); Glucose 115 mg/dL (70-99); Potassium 4.2 mmol/L (3.3-5.1); Sodium Level 139 mmol/L (133-145)
== END | disposition home or self-care (01) ==
LOC: LAB 08:20
PROVIDERS: PCP Family Medicine; Referring Provider Physician Assistant Medical; Visit Provider Physician Assistant Medical
DX: R42 Dizziness and giddiness (principal); Z51.81 Encounter for therapeutic drug level monitoring; Z79.899 Other long term (current) drug therapy
CPT/HCPCS: 36415; 80048

== ENCOUNTER → 2024-10-01 | Outpatient (CLI) | payer MEDICARE, SELFPAY ==
[2024-10-01 10:36] LABS: Anion Gap 9 (5-15); BUN 22 mg/dL (4-19); BUN/Creat Ratio 12.8 RATIO (10-20); Calcium,Total 9.4 mg/dL (7.6-11.0); Carbon Dioxide 26.2 mmol/L (21.0-32.0); Chloride 106 mmol/L (98-108); Creatinine, Serum 1.75 mg/dL (0.70-1.20); EST Glomerular Filtration Rate 28 (>60); Glucose 63 mg/dL (70-99); Phosphorus 2.9 mg/dL (2.7-4.5); Potassium 4.6 mmol/L (3.3-5.1); Sodium Level 141 mmol/L (133-145)
== END | disposition home or self-care (01) ==
LOC: LAB 09:41
PROVIDERS: PCP Family Medicine; Referring Provider Internal Medicine Nephrology; Visit Provider Internal Medicine Nephrology
DX: N18.32 Chronic kidney disease, stage 3b (principal)
CPT/HCPCS: 36415; 80069

== ENCOUNTER → 2024-11-04 | Outpatient (CLI) | payer MEDICARE, SELFPAY ==
[2024-11-04 10:12] LABS: Hematocrit 42.3 % (37-47); Hemoglobin 13.5 g/dL (12.0-15.0); Immature Granulocytes Count 0.040 X10^3/uL (0.0-0.0); Immature Reticulocyte Fraction 5.80 % (3.00-15.90); Mean Corp Hgb Conc 31.9 g/dL (32-36); Mean Corpuscular Volume 101.4 fL (81-99); Mean Platelet Vol. 10.1 fl (6.2-12.0); NRBC Flagged by Analyzer 0 % (0-5); Platelet Count 238 K/mm3 (150-450); RBC Distribution Width CV 13.4 % (11.6-14.6); RBC Distribution Width SD 49.8 fl (35.1-43.9); Red Blood Count 4.17 M/mm3 (4.2-5.4); Reticulocyte Count 1.14 % (0.5-1.5); White Blood Count 10.5 K/mm3 (4.4-11.0)
[2024-11-04 11:55] LABS: Ferritin 166 ng/mL (22-378); Iron 80 ug/dL (50-170); LDH 253 U/L (84-246)
== END | disposition home or self-care (01) ==
LOC: LAB 09:16
PROVIDERS: PCP Family Medicine; Referring Provider Internal Medicine Gastroenterology; Visit Provider Internal Medicine Gastroenterology
DX: D64.9 Anemia, unspecified (principal)
CPT/HCPCS: 36415; 82728; 83540; 83615; 85025; 85045

== ENCOUNTER → 2024-11-21 | Outpatient (CLI) | payer MEDICARE, SELFPAY ==
--- NOTE | 2024-11-21 08:53 | RAD_ITS ---
EXAM: XR Chest, 2 Views CLINICAL INDICATION: SHORTNESS OF BREATH TECHNIQUE: Frontal and lateral views of the chest. COMPARISON: No relevant prior studies available. FINDINGS: LUNGS AND PLEURAL SPACES: See below. HEART: Cardiomegaly with mild congestion. MEDIASTINUM: Unremarkable. Normal mediastinal contour. BONES/JOINTS: Unremarkable. No acute fracture. TUBES, LINES AND DEVICES: Left-sided cardiac pacemaker. RAD/Chest PA and Lateral IMPRESSION: Cardiomegaly with mild congestion. Reading Location: [id number]
[2024-11-21 09:56] LABS: Hematocrit 38.6 % (37-47); Hemoglobin 12.2 g/dL (12.0-15.0); Immature Granulocytes Count 0.040 X10^3/uL (0.0-0.0); Mean Corp Hgb Conc 31.6 g/dL (32-36); Mean Corpuscular Volume 101.0 fL (81-99); Mean Platelet Vol. 10.2 fl (6.2-12.0); NRBC Flagged by Analyzer 0 % (0-5); Platelet Count 218 K/mm3 (150-450); RBC Distribution Width CV 13.6 % (11.6-14.6); RBC Distribution Width SD 50.4 fl (35.1-43.9); Red Blood Count 3.82 M/mm3 (4.2-5.4); White Blood Count 11.2 K/mm3 (4.4-11.0)
[2024-11-21 10:56] LABS: Anion Gap 10 (5-15); BUN 29 mg/dL (4-19); BUN/Creat Ratio 15.4 RATIO (10-20); Calcium,Total 9.4 mg/dL (7.6-11.0); Carbon Dioxide 25.1 mmol/L (21.0-32.0); Chloride 104 mmol/L (98-108); Glucose 77 mg/dL (70-99); Potassium 4.5 mmol/L (3.3-5.1); Pro- Brain NATRIURETIC PEPTIDE 2881 pg/mL (<=1800)
== END | disposition home or self-care (01) ==
LOC: RAD 08:53
PROVIDERS: PCP Family Medicine; Referring Provider Physician Assistant Medical; Visit Provider Physician Assistant Medical
DX: R06.02 Shortness of breath (principal); I50.32 Chronic diastolic (congestive) heart failure; J84.10 Pulmonary fibrosis, unspecified; Z51.81 Encounter for therapeutic drug level monitoring; Z79.899 Other long term (current) drug therapy; D64.9 Anemia, unspecified; I25.10 Atherosclerotic heart disease of native coronary artery without angina pectoris; Z95.0 Presence of cardiac pacemaker; I25.5 Ischemic cardiomyopathy; Z98.890 Other specified postprocedural states
CPT/HCPCS: 36415; 71046; 80048; 83880; 84443; 85025

== ENCOUNTER → 2024-12-04 | Outpatient (CLI) | payer MEDICARE, SELFPAY ==
[2024-12-04 10:06] LABS: Anion Gap 9 (5-15); BUN 27 mg/dL (4-19); BUN/Creat Ratio 13.7 RATIO (10-20); Calcium,Total 9.3 mg/dL (7.6-11.0); Carbon Dioxide 26.3 mmol/L (21.0-32.0); Chloride 103 mmol/L (98-108); Glucose 70 mg/dL (70-99); Potassium 4.3 mmol/L (3.3-5.1)
== END | disposition home or self-care (01) ==
LOC: LAB 08:38
PROVIDERS: PCP Family Medicine; Referring Provider Internal Medicine Cardiovascular Disease; Visit Provider Internal Medicine Cardiovascular Disease
DX: R06.02 Shortness of breath (principal); I50.32 Chronic diastolic (congestive) heart failure; Z51.81 Encounter for therapeutic drug level monitoring; Z79.899 Other long term (current) drug therapy
CPT/HCPCS: 36415; 80048

== ENCOUNTER → 2025-01-07 | Outpatient (CLI) | payer MEDICARE, SELFPAY ==
[2025-01-07 16:11] LABS: Anion Gap 9 (5-15); BUN 28 mg/dL (4-19); BUN/Creat Ratio 16.0 RATIO (10-20); Calcium,Total 8.7 mg/dL (7.6-11.0); Carbon Dioxide 27.3 mmol/L (21.0-32.0); Chloride 103 mmol/L (98-108); Glucose 74 mg/dL (70-99); Potassium 4.7 mmol/L (3.3-5.1)
== END | disposition home or self-care (01) ==
LOC: LAB 15:11
PROVIDERS: PCP Family Medicine; Referring Provider Internal Medicine Nephrology; Visit Provider Internal Medicine Nephrology
DX: N17.9 Acute kidney failure, unspecified (principal)
CPT/HCPCS: 36415; 80048

== ENCOUNTER → 2025-02-03 | Outpatient (CLI) | payer MEDICARE, SELFPAY ==
[2025-02-03 17:22] LABS: Anion Gap 13 (5-15); BUN 27 mg/dL (4-19); BUN/Creat Ratio 14.1 RATIO (10-20); Calcium,Total 9.0 mg/dL (7.6-11.0); Carbon Dioxide 25.9 mmol/L (21.0-32.0); Chloride 103 mmol/L (98-108); Glucose 79 mg/dL (70-99); Potassium 4.1 mmol/L (3.3-5.1)
== END | disposition home or self-care (01) ==
LOC: LAB 15:28
PROVIDERS: PCP Family Medicine; Referring Provider Internal Medicine Nephrology; Visit Provider Internal Medicine Nephrology
DX: N18.32 Chronic kidney disease, stage 3b (principal)
CPT/HCPCS: 36415; 80048

== ENCOUNTER → 2025-03-17 | Outpatient (CLI) | payer MEDICARE, SELFPAY ==
[2025-03-17 17:56] LABS: Anion Gap 13 (5-15); BUN 32 mg/dL (4-19); BUN/Creat Ratio 17.9 RATIO (10-20); Calcium,Total 9.0 mg/dL (7.6-11.0); Carbon Dioxide 25.6 mmol/L (21.0-32.0); Chloride 104 mmol/L (98-108); Glucose 68 mg/dL (70-99); Potassium 4.4 mmol/L (3.3-5.1)
== END | disposition home or self-care (01) ==
LOC: LAB 15:48
PROVIDERS: PCP Family Medicine; Referring Provider Internal Medicine Nephrology; Visit Provider Internal Medicine Nephrology
DX: N17.9 Acute kidney failure, unspecified (principal); N18.9 Chronic kidney disease, unspecified
CPT/HCPCS: 36415; 80048

== ENCOUNTER → 2025-04-07 | Outpatient (CLI) | payer MEDICARE, SELFPAY ==
--- NOTE | 2025-04-07 11:23 | RAD_ITS ---
PROCEDURE: CHEST PA AND LATERAL 04/07/2025 REASON FOR EXAM: WIN TECHNIQUE: Procedure Code: RADCXR Modality: DX Procedure: CHEST PA AND LATERAL COMPARISON: Chest x-ray study dated 11/21/2024 FINDINGS: Hardware: Median sternotomy wires and vascular clips are noted. An atrial appendage clip is noted. Cardiac pacemaker device is identified in the left pectoral region with 2 intact leads in satisfactory position. Heart: There is mild cardiomegaly. This appears stable. Arteriosclerotic vascular disease of the aorta is noted. Mediastinum: Mediastinum is on remarkable. Pulmonary vasculature: Pulmonary vasculature is unremarkable. Lungs: Prominent interstitial markings are noted throughout the lungs which are similar when compared to the prior study. This probably represents underlying chronic interstitial lung disease or pulmonary fibrosis. There are no pleural effusions or pneumothoraces. Bones: Diffuse osteopenia of the bony thorax is noted. There is increased kyphotic curvature of the thoracic spine. RAD/Chest PA and Lateral IMPRESSION: Prominent interstitial markings are noted throughout the lungs which are simila r when compared to the prior study. This probably represents underlying chronic interstitial lung disease or pulmonary fibrosis. If patient's symptoms continue or worsen, follow-up imaging is recommended to be sure that there is no underlying acute p rocess. Reading Location: [id number]
[2025-04-07 12:17] LABS: Hematocrit 39.4 % (37-47); Hemoglobin 12.9 g/dL (12.0-15.0); Immature Granulocytes Count 0.030 X10^3/uL (0.0-0.0); Mean Corp Hgb Conc 32.7 g/dL (32-36); Mean Corpuscular Volume 101.0 fL (81-99); Mean Platelet Vol. 9.9 fl (6.2-12.0); NRBC Flagged by Analyzer 0 % (0-5); Platelet Count 250 K/mm3 (150-450); RBC Distribution Width CV 13.5 % (11.6-14.6); RBC Distribution Width SD 50.2 fl (35.1-43.9); Red Blood Count 3.90 M/mm3 (4.2-5.4); White Blood Count 10.1 K/mm3 (4.4-11.0)
[2025-04-07 13:05] LABS: AST(SGOT) 38 U/L (<=31); Alanine Aminotransfer ALT/SGPT 25 U/L (<=34); Albumin, Serum 4.0 g/dL (3.4-4.8); Alkaline Phosphatase 100 U/L (35-104); Anion Gap 10 (5-15); BUN 26 mg/dL (4-19); BUN/Creat Ratio 15.6 RATIO (10-20); Calcium,Total 9.2 mg/dL (7.6-11.0); Carbon Dioxide 26.0 mmol/L (21.0-32.0); Chloride 103 mmol/L (98-108); Globulin 3.3 g/dL (2.2-4.2); Glucose 108 mg/dL (70-99); Potassium 5.3 mmol/L (3.3-5.1)
== END | disposition home or self-care (01) ==
LOC: RAD 11:22
PROVIDERS: PCP Family Medicine; Referring Provider Physician Assistant Medical; Visit Provider Physician Assistant Medical
DX: R06.09 Other forms of dyspnea (principal); Z79.899 Other long term (current) drug therapy
CPT/HCPCS: 36415; 71046; 80053; 84443; 85025

== ENCOUNTER → 2025-04-24 | Outpatient (CLI) | payer MEDICARE, SELFPAY ==
--- OUTSIDE RECORDS SUMMARY | 2025-04-24 11:06 | XMS RPT_ITS | CCD ---
Author Organization [facility] Care Team Providers Care Dewatering Filtering Supervisor Name Role Phone Brissa, Clancy S Unavailable Wil PROFESSOR OF CHEMICAL ENGINEERING.BRANCH OFFICE MANAGER, DNP, Miles Primary Care Provider Amalia Avery MD Primary Care Provider Betito Brumfieldril S Unavailable Amalia Avery MD Primary Care Provider Wil SENIOR MOBILE DEVELOPER, SENIOR MOBILE DEVELOPER-C Miles Primary Care Provider Wil SENIOR MOBILE DEVELOPER, SENIOR MOBILE DEVELOPER-C Miles Referring Provider [facility] SENIOR MOBILE DEVELOPER, SENIOR MOBILE DEVELOPER-C Bart Schmitt Attending Provider Dr. Derek Brumfield Attending Provider Dr. Derek Brumfield Referring Provider Dr. Luiz Avery Primary Care Provider Betito Brumfieldril S Unavailable Wil SENIOR MOBILE DEVELOPER, SENIOR MOBILE DEVELOPER-C Miles Referring Provider Dr. Derek Brumfield Attending Provider Dr. Luiz Gonzalez Primary Care Provide r Dr. Luiz Avery Primary Care Provider Dr. Derek Brumfield Referring Provider Dr. Luiz Avery Referring Provider Cha CRAWFORD, PA Kinga Vela Attending Provider Amalia Avery MD Primary Care Provider [phone] Amalia Avery MD Primary Care Provider Dr. Luiz Avery Primary Care Provider Dr. Luiz Avery Referring Provider TY Brar Attending Provider Dr. Derek Brumfield Attending Provider [phone] Derek Brumfield Referring Provider [phone] Luiz Gonzalez Referring Provider Heather Canseco Attending Provider Unavailable Derek Brumfield MD Unavailable Dr. Luiz Avery Primary Care Provider Dr. Luiz Avery Referring Provider TY Brar Attending Provider Dr. Rashid Hankins Attending Provider Dr. Sherry Matta Emergency Provider Dr. Willa Garcia Admit Provider Dr. Willa Garcia Other Provider Dr. Rashid Hankins Other Provider Dr. Deandre Lozano Attending Provider Dr. Deandre Lozano Other Provider Dr. Nicolás Howell Other Provider Dr. Nicolás Howell Attending Provider Dr. Luiz Avery Primary Care Provider Dr. Derek Brumfield Attending Provider [phone] Derek Brumfield Referring Provider [phone] Rashid Hankins Referring Provider AMALIA AVERY Primary Care Unavailable AZIKEN, DANIELLE Admitting Unavailable ZAINAB BROOKS Consulting Unavailable AMALIA AVERY Primary Care Unavailable AZIKEN, DANIELLE Attending Unavailable AMALIA AVERY Primary Care Unavailable KINGA EUBANKS Referring Unavailable NARA VEGA Attending Unavailable AZIKEN, DANIELLE Attending Unavailable BURSLEY, CHRISTOPHER Primary Care Unavailable AZIKEN, DANIELLE Referring Unavailable BURSLEY, CHRISTOPHER Primary Care Unavailable AZIKEN, DANIELLE Attending Unavailable AZIKEN, DANIELLE Attending Unavailable BURSLEY, CHRISTOPHER Primary Care Unavailable AZIKEN, DANIELLE Referring Unavailable AZIKEN, DANIELLE Attending Unavailable BURSLEY, CHRISTOPHER Primary Care Unavailable JANEL MAYBERRY Attending Unavailabl e BURSSAVANNAH, CHRISTOPHER Primary Care Unavailable JANEL MAYBERRY Attending Unavailabl e KATARINA, CHRISTOPHER Primary Care Unavailable Katarina, Dr. Dee Primary Care Provider Cha CRAWFORD, PA Kinga Vela Attending Provider Dr. Luiz Avery Referring Provider Dr. Luiz Avery Primary Care Provider Dr. Derek Brumfield Attending Provider Dr. Derek Brumfield Referring Provider Dr. Rashid Hankins Attending Provider Dr. Rashid Hankins Referring Provider Dr. Sherry Matta Emergency Provider Dr. Willa Garcia Admit Provider Dr. Willa Garcia Other Provider Dr. Rashid Hankins Other Provider Dr. Deandre Loazno Attending Provider Dr. Deandre Lozano Other Provider Dr. Nicolás Howell Other Provider Cha CRAWFORD, PA Kinga Vela Attending Provider Dr. Nicolás Howell Attending Provider Dr. Luiz Avery Referring Provider Dr. Tino Lewis Emergency Provider Dr. Parker Bergman Admit Provider Unavailabl e de Robi, Dr. Canales Other Provider Unavailabl e Dr. Rigoberto Morton Attending Provider Dr. Ciera Hurst Other Provider Dr. Ciera Hurst Attending Provider Dr. Ciera Hurst Referring Provider Dr. Luiz Avery Primary Care Provider [phone] Dr. Derek Brumfield Attending Provider [phone] Derek Brumfield Referring Provider [phone] Luiz Avery Referring Provider Cha CRAWFORD, TY Vela Attending Provider Dr. Tino Lewis Emergency Provider [phone] Dr. Parker Bergman Admit Provider Unavailabl e Bergman, Dr. Canales Other Provider Unavailabl e Dr. Deandre Lozano Attending Provider Dr. Deandre Lozano Other Provider FriendDr. Franklin Attending Provider [phone] Dr. Ciera Hurst Referring Provider Dr. Ciera Hurst Other Provider Dr. Ciera Hurst Attending Provider Amalia Avery MD Primary Care Provider Dr. Luiz Avery Primary Care Provider [phone] Dr. Derek Brumfield Attending Provider [phone] Luiz Avery Referring Provider TY Brar Attending Provider Dr. Derek Brumfield Referring Provider [phone] Podlogar PROFESSOR OF CHEMICAL ENGINEERING.Silvia LAI Unavailable Jose Juan Lewis RN Unavailable Unavailable Caren PROFESSOR OF CHEMICAL ENGINEERING.Meghana LAI Unavailable Dr. Luiz Avery MD Primary Care Provider Brissa CHAPA, Dr. Reed Attending Provider [phone] Brissa CHAPA, Dr. Reed Referring Provider [phone] Katarina CHAPA, Dr. Dee Referring Provider [phone] Dr. Rigoberto Morton DO Attending Provider Thomas VARGAS, Dr. Soriano Attending Provider Thomas VARGAS, Dr. Soriano Referring Provider Kinga Brar Attending Provider [phone] Kinga Brar Referring Provider [phone] Katarina CHAPA, Dr. Dee Primary Care Provider Brissa CHAPA, Dr. Reed Attending Provider [phone] Brissa CHAPA, Dr. Reed Referring Provider [phone] Katarina CHAPA, Dr. Dee Referring Provider [facility] SENIOR MOBILE DEVELOPER-CBart Attending Provider [phone] Flex RN, Jose Juan Monteiro Unavailable Unavailable Caren EVANSN.BRANCH OFFICE MANAGER, Meghana Unavailable Dr. Luiz Avery MD Primary Care Provider Thomas VARGAS, Dr. Soriano Attending Provider [phone] Thomas VARGAS, Dr. Soriano Referring Provider [phone] Rigoberto Morton DO Attending Provider Selene VARGAS, Dr. Franklin Referring Provider Dr. Luiz Avery MD Primary Care Provider Kinga Brar Attending Provider [phone] Kinga Brar Referring Provider [phone] Dr. Luiz Avery MD Primary Care Provider Brissa CHAPA, Dr. Reed Attending Provider [phone] Dr. Derek Brumfield MD Referring Provider [phone] Dr. Luiz Avery MD Primary Care Physicia n Roof SENIOR MOBILE DEVELOPER-C, Bart Schmitt Attending Physician Thomas VARGAS, Dr. Soriano Attending Physician Selene VARGAS, Dr. Franklin Attending Physician Brissa CHAPA, Dr. Reed Attending Physician Kinga Brar Attending Physician [phone] Heather Canseco Attending Physician Unavailable Bursley, Luiz Referring Unavailable FriendRigoberto Attending Unavailable Bursley, Luiz Primary Care Unavailable FriendRigoberto Referring Unavailable FriendRigoberto Attending Unavailable Bursley, Luiz Primary Care Unavailable Bursley, Luiz Primary Care Unavailable Kinga Brar Referring Unavail able Kinga Brar Attending Unavail able Brissa, Clancy Attending Unavailable Brissa, Derek Referring Unavailable Bursley, Luiz Primary Care Unavailable Derek Brumfield Attending Unavailable Brissa, Derek Referring Unavailable Bursley, Luiz Primary Care Unavailable Brissa, Derek Attending Unavailable Brissa, Derek Referring Unavailable Bursley, Luiz Primary Care Unavailable Roof SENIOR MOBILE DEVELOPER, Bart Schmitt Attending Unavailable Bursley, Luiz Referring Unavailable Bursley, Luiz Primary Care Unavailable Bursley, Luiz Primary Care Unavailable Kinga Brar Referring Unavail able Kinga Brar Attending Unavail able ThomasChristie Attending Unavailable Bursley, Luiz Primary Care Unavailable Thomas, Christie Referring Unavailable ThomasSatishChristie Attending Unavailable Bursley, Luiz Primary Care Unavailable Roof SENIOR MOBILE DEVELOPER, Bart Schmitt Attending Unavailable Bursley, Luiz Referring Unavailable Bursley, Luiz Primary Care Unavailable Thomas Christie Attending Unavailable Bursley, Luiz Primary Care Unavailable Thomas, Christie Referring Unavailable Bursley, Luiz Primary Care Unavailable Brissa, Clancy Attending Unavailable Brissa, Derek Referring Unavailable Thomas, Christie Attending Unavailable Bursley, Luiz Primary Care Unavailable Thomas, Christie Referring Unavailable Thomas, Christie Referring Unavailable Thomas, Christie Attending Unavailable Bursley, Luiz Primary Care Unavailable Bursley, Luiz Referring Unavailable FriendRigoberto Attending Unavailable Bursley, Luiz Primary Care Unavailable Bursley, Luiz Primary Care Unavailable Brissa, Clancy Attending Unavailable Brissa, Derek Referring Unavailable Bursley, Luiz Primary Care Unavailable Bursley, Luiz Referring Unavailable Brissa, Derek Attending Unavailable Bursley, Luiz Primary Care Unavailable Brissa, Clancy Referring Unavailable Brissa, Derek Attending Unavailable Bursley, Luzi Primary Care Unavailable Brissa, Clancy Attending Unavailable KATARINA, AMALIA Finley Primary Care Unavailab le MOOMAW, ARI Referring Unavailable ZHANNALEY, BASHIRER B Primary Care Unavailab le BURSLEY, BASHIRER B Attending Unavailab le BURSLEY, BASHIRER B Primary Care Unavailab le PODLOGAR, SILVIA Attending Unavailable KATARINA, AMALIA Finley Primary Care Unavailab le PODLOGAR, SILVIA Attending Unavailable PODLOGAR, SILVIA Attending Unavailable KATARINA, BASHIRER Malia Primary Care Unavailab le BURSLEY, BASHIRER B Primary Care Unavailab le PODLOGAR, SILVIA Referring Unavailable KATARINA, AMALIA Finley Primary Care Unavailab le Katarina CHAPA, Dr. Dee Primary Care Physicia n Dr. Luiz Avery MD Referring Provider [phone] [facility] Bart CAMPO Attending Physician [phone] Dr. Christie Guzman DO Attending Physician Dr. Christie Guzman DO Referring Provider Katarina CHAPA, Dr. Dee Primary [facility] Physicia n Dr. Luiz Avery MD Referring Provider Allergies Allergy Classification Reported Allergen(s) Allergy Type Date of Onset Reaction(s) Facility (20 sources) Morphine; Translations: [MORPHINE] Drug Allergy 7 GI Upset, Vomiting [facility] (20 sources) sacubitril Drug Allergy 4 Hypotension on lowest dose [facility] (20 sources) valsartan Drug Allergy 4 Hypotension on lowest dose [facility] (1 source) Morphine Drug Allergy 5 [facility] (1 source) sacubitril Drug Allergy 5 [facility] (1 source) valsartan Drug Allergy [facility] Medications Current Medications Medication Drug Class(es) Dates Sig (Normalized) Sig (Original) acyclovir 800 mg oral tablet (20 sources) Herpesvirus Nucleoside Analog DNA Polymerase Inhibitor, Herpes Simplex Virus Nucleoside Analog DNA Polymerase Inhibitor, Herpes Zoster Virus Nucleoside Analog DNA Polymerase Inhibitor Start: 09-11-2019 take 1 tablet by mouth once daily Start: 08-01-2018 End: 09-11-2019 take 1 tablet by mouth once daily Acyclovir 400 mg tablet Discontinued 800 mg PO DAILY August 01, 2018 9:58am September 11, 2019 12:46pm shingles Start: 12-21-2016 End: 01-04-2024 take 1 tablet by mouth twice daily acyclovir (ZOVIRAX) 800 mg tablet Take 1 tablet by mouth twice daily. Take at first signs of outbreak. 12/21/2016 01/04/2024 Discontinued Start: 12-08-2016 End: 08-01-2018 take 1 tablet by mouth four times daily Acyclovir 400 MG tablet Discontinued 800 mg PO 4 TIMES DAILY December 08, 2016 12:00am August 01, 2018 10:01am Start: 12-08-2016 End: 08-01-2018 take 800 mg by mouth four times daily Acyclovir Discontinued 800 MG PO 4 TIMES DAILY December 08, 2016 12:00am August 01, 2018 10:01am Start: 12-08-2016 End: 09-11-2019 take 800 mg by mouth once daily Acyclovir Discontinued 800 MG PO DAILY August 01, 2018 9:58am September 11, 2019 12:46pm Comment on above: Take 1 tablet by ubaldo th twice daily. Take at first signs of outbreak. amoxicillin 875 mg / clavulanate 125 mg oral tablet (1 source) Penicillin-class Antibacterial Start: 023 End: 023 take 1 tablet by mouth twice daily amoxicillin-clavulan ic acid (AUGMENTIN) 875-125 mg per tablet Take 1 tablet by mouth twice daily for 5 days. 10 tablet 0 05/11/2022 05/16/2022 Active Comment on above: Take 1 tablet by ubaldo th twice daily for 5 days. ascorbic acid 226 mg / beta carotene 73340 unt / cuprous oxide 0.8 mg / dl-alpha tocopheryl acetate 200 unt / zinc oxide 34.8 mg oral capsule (20 sources) Vitamin C take 1 capsule by mouth once daily Vit A,C,S-Yvnv-Rvbsbe (ICAPS AREDS) 4,296 mcg-226 mg-90 mg cap Take 1 capsule by mouth once daily. Active Comment on above: Take 1 capsule by [facility] once daily. betamethasone 0.5 mg/ml topical cream (20 sources) Corticosteroid Start: betamethasone dipropionate (DIPROSONE) 0.05 % cream Indications: Vagina itching Apply to affected area twice daily as needed. 45 g 2 11/15/2020 Active Comment on above: Apply to affected ar ea twice daily as needed. cholecalciferol 0.05 mg oral tablet (20 sources) Vitamin D Start: take 1 tablet by mouth once daily Start: 01-04-2024 take 2 capsules by [facility] once daily Cholecalciferol, Vitamin D3, 25 mcg (1,000 unit) cap Take 2 capsules by mouth once daily. 01/04/2024 Active Start: 03-16-2023 End: 05-01-2023 take 1 tablet by mouth once daily Cholecalciferol (Vitamin D3) (Vitamin D3) 50 mcg (2,000 unit) tablet Discontinued 2000 U PO DAILY March 16, 2023 1:00am May 01, 2023 2:09pm Start: 09-16-2017 End: 08-30-2023 take 1 capsule by mouth once daily Cholecalciferol (Vitamin D3) 2,000 unit capsule Discontinued 2000 U PO DAILY 30 0 August 01, 2018 12:00am November 16, 2018 3:54pm Comment on above: Take 1 capsule by [facility] once daily. COMPOUNDED PRESCRIPTION (20 sources) COMPOUNDED PRESC RIPTION 1 Drop. Every other day-left eye Active COMPOUNDED PRESC RIPTION 1 Drop. Every other day-left eye 0 Active Comment on above: 1 Drop. Every other day-left eye difluprednate 0.5 mg/ml ophthalmic suspension (20 sources) Start: 05-13-2020 take 0.05 drop(s) into the eye(s) every other day Start: 05-13-2020 Difluprednate Active 1 DRP OPHTHALMIC EVERY OTHER DAY May 13, 2020 12:40pm Start: 09-11-2019 End: 05-13-2020 Difluprednate 0.05 % drops Discontinued mL OPHTHALMIC September 11, 2019 12:00am May 13, 2020 12:40pm Start: 09-11-2019 End: 12-30-2022 Difluprednate Discontinued M L OPHTHALMIC September 11, 2019 12:00am May 13, 2020 12:40pm Start: 08-01-2018 End: 09-11-2019 Durezol Discontinued 0.05 NM A IO .every three days August 01, 2018 9:58am September 11, 2019 12:49pm shingles in eye Start: 08-01-2018 End: 09-11-2019 Durezol Discontinued 0.05 NM A IO .every three days August 01, 2018 9:58am September 11, 2019 12:49pm Start: 08-01-2018 End: 09-11-[address] P IO .every three days August 01, 2018 9:58am September 11, 2019 12:49pm Start: 08-01-2018 End: 09-11-[address] P IO .every three days August 01, 2018 8:58am September 11, 2019 11:49am Start: 12-09-2016 End: 08-01-2018 Durezol Discontinued 0.05 NM A Each Eye 4 TIMES DAILY December 09, 2016 12:00am August 01, 2018 10:01am Start: 12-09-2016 End: 08-01-[address] P Each Eye 4 TIMES DAILY December 09, 2016 12:00am August 01, 2018 10:01am Start: 12-09-2016 End: 08-01-[address] P Each Eye 4 TIMES DAILY December 08, 2016 11:00pm August 01, 2018 9:01am take 1 drop(s) into the eye(s) every other day Difluprednate 0.05 % drop Use 1 Drop in the left eye as directed. Every other day. 0 Active Comment on above: Use 1 Drop in the le ft eye as directed. Every other day. Difluprednate 0.05 % drops (11 sources) Start: 1 take 0.05 drop(s) into the eye(s) every other day Difluprednate 0.05 % drops Active 1 NMA OPHTHALMIC EVERY OTHER DAY May 13, 2020 12:40pm SWELLING/PAIN Start: 05-13-2020 take 0.05 drop(s) in to the eye(s) every other day Difluprednate 0.05 % drops Active 1 NMA OPHTHALMIC EVERY OTHER DAY May 13, 2020 12:40pm Disability Parking Placard (10 sources) Start: 12-31-2024 Disability Par dalia Placard Active 0 .Route .MEDSUPPLY 1 0 December 31, 2024 1:40pm LIFETIME, Renew 12/31/2029 As directed Start: 12-31-2024 End: 12-31-2024 Disability Parking Placard D iscontinued 0 .Route .MEDSUPPLY 1 0 December 31, 2024 12:00am December 31, 2024 1:40pm LIFETIME, Renew 12/31/2029 As directed doxycycline monohydrate 100 mg oral capsule (2 sources) Tetracycline-class Drug Start: 05-10-2024 End: 05-15-2024 take 1 capsule by mouth twice daily doxycycline monohydrate (MONODOX) 100 mg capsule Indications: Community acquired pneumonia, unspecified laterality Take 1 capsule by mouth two times a day for 5 days. 10 capsule 05/10/2024 05/15/2024 Active Start: 05-11-2022 End: 05-16-2022 take 1 tablet by mouth twice daily doxycycline monohydrate 100 mg tablet Take 1 tablet by mouth twice daily for 5 days. 10 tablet 0 05/11/2022 05/16/2022 Active Comment on above: Take 1 tablet by [facility] twice daily for 5 days. ferrous sulfate 325 mg oral tablet (20 sources) Start: 10-01-2024 take 1 tablet by mouth every other day Start: 01-04-2024 End: 12-01-2024 ferrous sulfate 325 mg (65 m g iron) tablet Indications: Iron deficiency anemia, unspecified iron deficiency anemia type Take one tablet every other day 45 tablet 3 12/01/2024 Active Start: 11-13-2023 End: 10-01-2024 take 1 tablet by mouth once daily Ferrous Sulfate 325 mg (65 mg iron) tablet Discontinued 325 mg PO DAILY November 13, 2023 12:00am October 01, 2024 8:39am Start: 07-03-2023 End: 01-04-2024 take 1 tablet by mouth once daily ferrous sulfate 325 mg (65 mg iron) tablet Take 1 tablet by mouth once daily. 30 tablet 2 07/30/2023 01/04/2024 Discontinued Comment on above: Take 1 tablet by ubaldo th once daily. furosemide 20 mg oral tablet (20 sources) Loop Diuretic Start: 11-27-2024 take 1 tablet by mouth once daily Start: 11-26-2024 End: 11-27-2024 take 2 tablets by mouth every other day Furosemide 20 mg tablet Discontinued 40 mg PO every other day 29 03November 26, 2024 9:59am November 27, 2024 1:31pm Start: 07-29-2024 End: 11-26-2024 take 10 mg by mouth once daily Furosemide 20 mg tablet Discontinued 10 mg PO DAILY 29 03July 29, 2024 2:20pm November 26, 2024 10:00am Start: 01-04-2024 End: 07-29-2024 take 1 tablet by mouth once daily Furosemide 20 mg tablet Discontinued 20 mg PO DAILY 29 03June 09, 2024 6:04pm July 29, 2024 2:21pm this is a dose decrease. Start: 10-01-2023 End: 01-04-2024 furosemide (LASIX) 20 mg tab let Alteranate 40 mg every other day with 80mg per [facility] 10/01/2023 01/04/2024 Discontinued Start: 08-31-2023 End: 06-09-2024 take 1 tablet by mouth once daily Furosemide 40 mg tablet Discontinued 40 mg PO DAILY November 15, 2023 3:09pm January 10, 2024 9:14am Start: 07-24-2023 End: 08-31-2023 take 1 tablet by mouth twice daily Furosemide 40 mg tablet Discontinued 40 mg PO TWICE A DAY July 24, 2023 12:00am August 31, 2023 4:42pm Start: 07-09-2023 End: 10-01-2023 take 0.5 tablet by mouth once daily furosemide (LASIX) 20 mg tablet Take 0.5 tablets by mouth once daily. 07/09/2023 10/01/2023 Discontinued (Adjust Sig - Block E-Cancel) Start: 06-11-2023 End: 07-24-2023 take 10 mg by mouth once daily Furosemide 20 mg tablet Discontinued 10 mg PO DAILY 45 3 June 11, 2023 10:05am July 13, 2023 9:39am EDEMA Start: 06-11-2023 End: 06-11-2023 take 10 mg by mouth every other day Furosemide 20 mg tablet Discontinued 10 mg PO every other day 45 3 June 11, 2023 1:00am June 11, 2023 10:05am Start: 05-30-2023 End: 06-11-2023 take 1 tablet by mouth once daily Furosemide 20 mg tablet Discontinued 20 mg PO DAILY 90 May 30, 2023 5:29pm June 11, 2023 10:02am Start: 03-06-2023 End: 05-30-2023 take 2 tablets by mouth once daily Furosemide 20 mg tablet Discontinued 40 mg PO DAILY 90 March 06, 2023 4:08pm May 30, 2023 5:29pm Start: 03-06-2023 End: 05-30-2023 take 40 mg by mouth once daily Furosemide Discontinued 40 MG PO DAILY March 06, 2023 4:08pm May 30, 2023 5:29pm Start: 02-09-2023 End: 03-06-2023 take 1 tablet by mouth once daily Furosemide 20 mg tablet Discontinued 20 mg PO DAILY 90 February 09, 2023 1:37pm March 06, 2023 4:15pm Start: 02-09-2023 End: 07-24-2023 take 10 mg by mouth once daily Furosemide Discontinued 10 MG PO DAILY 45 June 11, 2023 10:05am July 13, 2023 9:39am Start: 02-09-2023 End: 06-11-2023 take 10 mg by mouth every other day Furosemide Discontinued 10 MG PO every other day 45 June 11, 2023 1:00am June 11, 2023 10:05am Start: 02-09-2023 End: 02-09-2023 Furosemide 40 mg tablet Disc ontinued 20 mg PO DAILY 180 February 09, 2023 1:26pm February 09, 2023 1:39pm Start: 12-21-2022 40 mg, IntraVE Nous, Once, On Katey 12/21/22 at 1700, For 1 dose Start: 12-18-2022 End: 12-20-2022 40 mg, IntraVENous, 2 times daily, First dose (after last modification) on 12/18/22 at 0900 Start: 12-16-2022 End: 12-18-2022 20 mg, IntraVENous, 2 times daily, First dose on 12/16/22 at 0900 Start: 12-15-2022 20 mg, IntraVE Nous, Once, On 12/15/22 at 1430, For 1 dose Start: 11-07-2022 End: 02-09-2023 Furosemide 40 mg tablet Disc ontinued 40 mg PO .COMPLEX 180 3 November 07, 2022 12:00am February 09, 2023 1:26pm 40 mg orally twice a day on 11/08, 11/09, and 11/10 then take once a day.; will need extra pills in case of weight gain/sob/swelling Start: 11-07-2022 End: 02-09-2023 take 20 mg by mouth once daily Furosemide Discontinued 20 MG PO DAILY 180 February 09, 2023 1:26pm February 09, 2023 1:39pm Start: 11-07-2022 End: 07-09-2023 take 1 tablet by mouth once daily furosemide (LASIX) 40 mg tablet Take 1 tablet by mouth once daily. 0 04/04/2023 07/09/2023 Discontinued (Adjust Sig - Block E-Cancel) Comment on above: Take 40 mg by mouth once daily. Take 40 mg by mouth once daily. Currently taking 40 Mg BID for 3 days then resume 40 mg daily Take 1 tablet by ubaldo th once daily. Take 1 tablet by ubaldo th once daily. Currently taking 40 Mg BID for 3 days then resume 40 mg daily Take 0.5 tablets by mouth once daily. midodrine hydrochloride 2.5 mg oral tablet (4 sources) alpha-Adrenergic Agonist Start: 5 take 1 tablet by mouth once daily at bedtime NON FORMULARY (3 sources) NON FORMULARY [facility] health complex 0 Active pantoprazole 40 mg delayed release oral tablet (20 sources) Proton Pump Inhibitor Start: End: 5 take 1 tablet by mouth once daily Start: 07-17-2023 End: 10-01-2024 take 1 tablet by mouth twice daily Pantoprazole 40 mg tablet,delayed release (DR/EC) Discontinued 40 mg PO TWICE A DAY 180 3 July 17, 2023 2:05pm October 01, 2024 8:39am Recent GI bleed, needs to take 40 bid. Start: 07-13-2023 End: 07-17-2023 Pantoprazole 40 mg tablet,de layed release (DR/EC) Discontinued 20 mg PO TWICE A DAY July 13, 2023 9:37am July 17, 2023 2:06pm GERD Start: 07-13-2023 End: 07-17-2023 take 20 mg by mouth twice daily Pantoprazole Discontinued 20 MG PO TWICE A DAY July 13, 2023 9:37am July 17, 2023 2:06pm Start: 06-17-2023 End: 07-13-2023 take 1 tablet by mouth twice daily Pantoprazole 40 mg Tablet,Delayed Release (Dr/Ec) Discontinued 40 mg PO TWICE A DAY 60 0 June 17, 2023 1:00am July 13, 2023 9:39am GERD Start: 06-17-2023 End: 08-07-2023 take 1 tablet by mouth once daily pantoprazole DR (PROTONIX) 40 mg tablet Take 40 mg by mouth once daily. 0 06/17/2023 08/07/2023 Discontinued Start: 12-15-2022 End: 12-15-2022 40 mg, IntraVENous, Administ er over 2 Minutes, Daily, First dose on Sun12/15/22 at 0600, Phase II/On Unit Reconstitute with 10 mL 0.9 % sodium chloride and administer over at least 2 minutes. Comment on above: Take 40 mg by mouth once daily. Take 1 tablet by ubaldo two times a day. Vit C,G-Dv-Nkwdd-Lutein-Mendy caterina (Preservision Areds-2) 250-90-40-1 mg capsule (19 sources) Start: 06-12-2023 take 2 capsules by mouth twice daily Start: 06-12-2023 take 2 capsules by out twice daily Vit C,G-Nj-Igcnx-Lutein-Zeaxan (Preservision Areds-2) 250-90-40-1 mg capsule Active 1 {tbl} PO TWICE A DAY June 12, 2023 1:00am [facility] Start: 06-12-2023 take 2 capsules by m outh twice daily Vit C,O-Ot-Wqptu-Lutein-Zeaxan (Preservision Areds-2) 250-90-40-1 mg capsule Active 1 {tbl} PO TWICE A DAY June 12, 2023 1:00am Start: 06-12-2023 Vit C,E-Zn-Clothing Consultant op-Mhxbza-Xxspgk (Preservision Areds-2) 250-90-40-1 mg capsule Active 1 TABLET PO TWICE A DAY June 12, 2023 1:00am Start: 06-12-2023 Vit C,E-Zn-Clothing Consultant ui-Avadwv-Dhjols (Preservision Areds-2) 250-90-40-1 mg capsule Active 1 TABLET PO TWICE A DAY June 12, 2023 12:00am (16 sources) Start: 06-12-2023 Start: 12-18-2022 End: 12-30-2022 40 mg, IntraVENous, Administ er over 2 Minutes, Daily before breakfast, First dose on 12/18/22 at 0700 Reconstitute with 10 ml NS. Vial expires 2 hrs after reconstitution. Start: 12-14-2022 End: 12-30-2022 [Order 1 Start] Name: magnes ium sulfate IVPB premix 2,000 mg Signed Summary: 2,000 mg, IntraVENous, at 25 mL/hr, Administer [...] Patients with CrCl less than 30 mL/min. [Order 1 End] [Order 2 Start] Name: magnesium sulfate IVPB 4,000 mg Signed Summary: 4,000 mg, IntraVENous, at 25 mL/hr, Administer [...] Patients with CrCl less than 30 mL/min. [Order 2 End] Start: 12-14-2022 End: 12-30-2022 take 4 mg by mouth every eight hours as needed for nausea and vomiting [Order 1 Start] Name: ondansetron ODT (Zofran-ODT) disintegrating tablet 4 mg Signed Summary: 4 mg, Oral, Every 8 hours PRN, nausea, vomiting, Starting on Katey 12/14/22 at 1310, Phase II/On Unit 1st Line. If inadequate response within 60 minutes, proceed to next-line agent or contact provider if no further options ordered. Patient should allow tablet to dissolve on tongue. Do not remove from blister pack until just before administering. [Order 1 End] [Order 2 Start] Name: ondansetron (Zofran) injection 4 mg Signed Summary: 4 mg, IntraVENous, Every 6 hours PRN, nausea, vomiting, Starting on Katey 12/14/22 at 1310, Phase II/On Unit 1st Line. Give IV if patient is unable to take orally. If inadequate response within 60 minutes, proceed to next-line agent or contact provider if no further options ordered. [Order 2 End] Start: 09-19-2022 Start: 02-14-2022 End: 06-27-2023 Start: 02-14-2022 Start: 05-13-2020 Start: 08-01-2018 End: 09-11-2019 Start: 12-09-2016 End: 08-01-2018 Completed/Discontinued Medications Medication Drug Class(es) Dates Sig [...] tablet 0 12/30/2022 01/09/2023 Discontinued (Therapy completed) Start: 12-14-2022 End: 01-13-2023 take 1000 mg by mouth every eight hours as needed for pain 1,000 mg, Oral, Every 8 hours PRN, mild pain (1-3), Starting on Sun12/27/22 at 1030 acetaminophen 325 mg / HYDROcodone bitartrate 5 mg oral tablet (20 sources) Opioid Agonist Start: 12-20-2018 End: 12-28-2018 Hydrocodone-Acetaminophen 1 TABLET tablet Discontinued 1 {tbl} PO EVERY 6 HOURS NEEDED as needed for Pain 10 3 0 December 20, 2018 December 22, 2018 12:00am December 28, 2018 12:08am Closed fracture of sternum Unspecified fracture of sternum, initial encounter for closed fracture Start: 12-20-2018 End: 12-28-2018 take 1 tablet by mouth every six hours as needed Hydrocodone-Acetaminophen Discontinued 1 TABLET PO EVERY 6 HOURS NEEDED 10 3 December 20, 2018 December 28, 2018 12:08am Start: 12-20-2018 End: 12-28-2018 20 ml albumin human, [facility] 250 mg/ml injection (10 sources) Human Serum Albumin Start: 12-17-2022 End: 12-17-2022 50 g, IntraVENous, at 200 mL/hr, Administer over 1 Hours, Once, On 12/17/22 at 0715, For 1 dose Start: 12-14-2022 End: 12-16-2022 25 g, IntraVENous, at 200 mL /hr, Administer over 30 Minutes, Once, On Katey 12/14/22 at 1400, For 1 dose albuterol 0.833 mg/ml / ipratropium bromide 0.167 mg/ml inhalation solution (2 sources) Anticholinergic, beta2-Adrenergic Agonist Start: 12-14-2022 End: 12-30-2022 3 mL, Nebulization, As needed, wheezing, shortness of breath, Starting on Katey 12/14/22 at 1310, Phase II/On Unit ALPRAZolam 0.25 mg disintegrating oral tablet (20 sources) Benzodiazepine Start: 12-14-2022 End: 12-14-2022 0.25 mg, Oral, PRN, anxiety, Starting on Katey 12/14/22 at 0547, For 1 dose, Preprocedure Using dry hands, place tablet on top of tongue and allow to disintegrate. Administration with water is not necessary. Start: 01-01-2021 End: 07-01-2021 take 1 tablet by mouth three times daily as needed for anxiety Alprazolam (Xanax) 0.25 mg tablet Discontinued 0.25 mg PO THREE TIMES A DAY as needed for anxiety 10 January 01, 2021 12:00am July 01, 2021 4:02pm aluminum hydroxide 40 mg/ml / magnesium hydroxide 40 mg/ml / simethicone 4 mg/ml oral suspension (2 sources) Start: 12-23-2022 End: 12-23-2022 10 mL, Nasogastric, Once PRN, heartburn, Starting on 12/23/22 at 2229, For 1 dose amiodarone hydrochloride 200 mg oral tablet (20 sources) Antiarrhythmic Start: 11-15-2023 End: 11-05-2024 take 1 tablet by mouth once daily Amiodarone 200 mg tablet Discontinued 200 mg PO DAILY 30 11 November 05, 2024 4:27pm November 05, 2024 4:28pm amLODIPine 5 mg oral tablet (20 sources) Dihydropyridine Calcium Channel Amaury Start: 09-13-2018 End: 11-18-2018 take 1 tablet by mouth once daily Amlodipine 5 mg tablet Discontinued 5 mg PO DAILY 90 90 0 September 13, 2018 12:00am November 18, 2018 8:41am blood pressure apixaban 5 mg oral tablet (20 sources) Factor Xa Inhibitor Start: 01-04-2024 End: 01-29-2025 take 1 tablet by mouth twice daily Apixaban (Eliquis) 5 mg tablet Discontinued 5 mg PO TWICE A DAY 180 3 January 15, 2024 10:15am January 29, 2025 10:20am Start: 09-19-2022 End: 10-01-2023 Apixaban (Eliquis) 5 mg tabl et Discontinued 5 mg PO TWICE A DAY 180 3 February 09, 2023 1:37pm July 13, 2023 9:38am BLOOD THINNER On Hold: HOLD FOR 10 DAYS (06/17/23 - 06/27/23), THEN RESUME Start: 09-19-2022 End: 02-09-2023 Comment on above: Take 5 mg by mouth t wice daily. ascorbic acid 200 mg / beta carotene 1000 unt / cuprous oxide 2 mg / dl-alpha tocopheryl acetate 60 unt / lutein 2 mg / sodium selenate 0.055 mg / zinc oxide 40 mg oral tablet (5 sources) Vitamin C Start: 02-14-2022 End: 06-27-2023 Vit A,C And M-Hokxqi-Yowhonsg (Eye Health Plus Lutein) 300 mcg-200 mg-27 mg-2 mg tablet Discontinued 1 {tbl} PO TWICE A DAY February 14, 2022 12:00am June 27, 2023 4:58pm aspirin 81 mg chewable tablet (20 sources) Platelet Aggregation Inhibitor, Nonsteroidal Anti-inflammatory Drug Start: 12-08-2016 End: 07-13-2023 Aspirin 81 MG tablet,chewable Discontinued 81 mg PO DAILY December 08, 2016 12:00am July 13, 2023 9:38am HEART HEALTH On Hold: HOLD FOR 10 DAYS (06/17/23 - 06/27/23), THEN RESUME End: 10-01-2023 take 1 tablet by mouth once daily aspirin, enteric coated (ASPIRIN, ENTERIC COATED) 81 mg EC tablet Take 81 mg by mouth once daily. 10/01/2023 Discontinued (Course of therapy completed) Comment on above: Take 81 mg by mouth once daily. atorvastatin 20 mg oral tablet (20 sources) HMG-CoA Reductase Inhibitor Start: 11-19-19 End: 03-24-20 take 1 tablet by mouth at bedtime Atorvastatin 20 mg tablet Discontinued 20 mg PO AT BEDTIME 90 3 December 08, 2022 1:38pm February 09, 2023 1:40pm Comment on above: Take 20 mg by mouth daily at bedtime. atropine sulfate 0.005 mg/ml / diphenoxylate hydrochloride 0.5 mg/ml oral solution (4 sources) Anticholinergic, Cholinergic Muscarinic Antagonist, Antidiarrheal Start: 12-28-19 End: 12-31-19 take 5 mL by mouth every eight hours as needed for diarrhea 5 mL, Oral, Every 8 hours PRN, diarrhea, Starting on Sun12/27/22 at 1030 Start: 12-23-2022 End: 12-27-2022 take 5 mL by mouth three times daily 5 mL, Oral, 3 times daily, First dose on Sun12/23/22 at 0900 bacitracin 0.5 unt/mg / poly myxin b 10 unt/mg topical ointment (7 sources) Polymyxin-class Antibacterial Start: 12-04-2022 End: 12-30-2022 Start: 12-04-2022 End: 12-04-2023 bacitracin-polymyxin b (Poly sporin) ointment Apply to affected area daily 15 g 0 12/04/2022 12/04/2023 Active calcium chloride 0.0014 meq/ ml / potassium chloride 0.004 meq/ml / sodium chloride 0.103 meq/ml / sodium lactate 0.028 meq/ml injectable solution (4 sources) Start: 12-15-2022 End: 12-15-2022 250 mL, IntraVENous, at 500 mL/hr, Administer over 30 Minutes, Once, On Sun12/15/22 at 1015, For 1 dose Start: 12-14-2022 End: 12-16-2022 250 mL, IntraVENous, at 124 mL/hr, Administer over 121 Minutes, Continuous PRN, fluid bolus challenge: lactated ringers bolus, Starting on Sun12/14/22 at 1310, For 2 doses, Phase II/On Unit To be given in conjunction with PRN 25gm Albumin order Use if hgb greater than 7.5 and PAD below goal (18) and/or Low BP (less than 90 SBP and/or less than 60 MAP) and/or Low urine output (less than 30ml/hr) per hemodynamic goals If hemodynamic goals unattained, proceed to second fluid bolus challenge If hgb less than 7.5 notify surgeon for orders. 100 ml calcium gluconate 20 mg/ml injection (2 sources) Start: 12-14-2022 End: 12-30-2022 2,000 mg, IntraVENous, at 50 mL/hr, Administer over 2 Hours, PRN, ionized calcium less than 4.3, Starting on Katey 12/14/22 at 1310, Phase II/On Unit Give 2000 mg for ionized calcium less than 4.3 premix bag carvedilol 3.125 mg oral tablet (20 sources) alpha-Adrenerg ic Amaury, beta-Adrenergi c Amaury Start: 11-11-2024 End: 12-15-2024 take 1 tablet by mouth once daily at mealtime Carvedilol (Coreg) 3.125 mg tablet Discontinued 3.125 mg PO .every evening 180 November 11, 2024 5:01pm December 15, 2024 9:14am HEART must administer with a meal/food Start: 09-19-2022 End: 03-16-2023 take 1 tablet by mouth twice daily at mealtime Carvedilol 12.5 mg tablet Discontinued 12.5 mg PO TWICE A DAY 60 September 19, 2022 12:00am February 09, 2023 1:08pm must administer with a meal/food Start: 02-14-2022 End: 09-19-2022 take 1 tablet by mouth twice daily Carvedilol 6.25 mg tablet Discontinued 6.25 mg PO TWICE A DAY 30 March 21, 2022 5:02pm September 19, 2022 1:49pm Start: 02-14-2022 End: 02-14-2022 take 2 tablets by mouth twice daily at mealtime Carvedilol (Coreg) 3.125 mg tablet Discontinued 6.25 mg PO TWICE A DAY 60 February 14, 2022 2:40pm February 14, 2022 2:42pm must administer with a meal/food Start: 09-30-2021 End: 11-14-2022 take 4 tablets by mouth twice daily carvedilol (COREG) 3.125 mg tablet Take 12.5 mg by mouth twice daily. 09/30/2021 11/14/2022 Discontinued Start: 11-18-2018 End: 12-24-2024 take 1 tablet by mouth twice daily at mealtime Carvedilol (Coreg) 3.125 mg tablet Discontinued 3.125 mg PO TWICE A DAY 180 May 19, 2024 12:44pm November 11, 2024 5:02pm HEART must administer with a meal/food Comment on above: Take 3.125 mg by ubaldo th twice daily. Take 1 tablet by ubaldo twice daily with meals. Take 12.5 mg by mout h twice daily. Take 3.125 mg by ubaldo th two times a day with meals. ceFAZolin 2000 mg injection (2 sources) Cephalosporin Antibacterial Start: End: take 2000 mg intravenously every eight hours 2,000 mg, IntraVENous, Administer over 30 Minutes, Every 8 hours, First dose on Katey 12/14/22 at 2000, For 5 doses, Phase II/On Unit premix bag Suspected Indication (Select all that apply): Surgical Prophylaxis chlorhexidine gluconate 1.2 mg/ml mouthwash (6 sources) Start: End: take 15 mL by mouth twice daily 15 mL, Mouth/Throat, 2 times daily, First dose on Katey 12/14/22 at 1315, For 7 days, Phase II/On Unit Rinse and spit. Do not swallow. Start: 12-14-2022 End: 12-14-2022 15 mL, Mouth/Throat, Once, O n Katey 12/14/22 at 0600, For 1 dose, Preprocedure Rinse and spit. Do not swallow. Start: 12-04-2022 End: 12-04-2022 chlorhexidine (Peridex) 0.12 % solution Use 15 mL in the mouth or throat Once for 1 dose. Swish for 30 seconds and spit out the night before surgery. Do not swallow. 15 mL 0 12/04/2022 12/04/2022 cholecalciferol 9.52 unt/ml / glucose 357 mg/ml oral gel (2 sources) Vitamin D Start: 12-14-2022 End: 12-30-2022 15 g, Oral, As needed, low blood sugar, Starting on Katey 12/14/22 at 1310, Phase II/On Unit If blood glucose less than 50 mg/dL and patient ALERT and NOT NPO, give 2 tubes glucose gel. If blood glucose less than 70 mg/dL and patient ALERT and NOT NPO, give 1 tube glucose gel. Repeat blood glucose in 15 minutes. If blood glucose is less than 70 mg/dL, repeat treatment and recheck blood glucose in 15 minutes x2 and notify provider. clopidogrel 75 mg oral tablet (20 sources) P2Y12 Platelet Inhibitor Start: 02-10-2019 End: 11-14-2022 take 1 tablet by mouth once daily Clopidogrel 75 mg tablet Discontinued 75 mg PO DAILY 90 3 November 01, 2021 11:57am September 19, 2022 1:49pm Comment on above: Take 75 mg by mouth once daily. dapagliflozin 10 mg oral tablet (20 sources) Sodium-Glucose Cotransporter 2 Inhibitor Start: 06-07-2022 End: 12-01-2024 take 1 tablet by mouth once daily Dapagliflozin Propanediol (Farxiga) 10 mg tablet Discontinued 10 mg PO DAILY 90 3 October 05, 2023 9:44am October 01, 2024 9:29am BLOOD SUGARS Comment on above: Take 10 mg by mouth daily with breakfast. digoxin 0.125 mg oral tablet (20 sources) Cardiac Glycoside Start: 05-01-2023 End: 11-15-2023 Digoxin 125 mcg (0.125 mg) tablet Discontinued 125 ug PO MOWEJune 27, 2023 1:00am November 15, 2023 3:08pm HEART FAILURE Start: 05-01-2023 End: 06-27-2023 End: 01-04-2024 take 1 tablet by mouth once digoxin (LANOXIN) 125 mcg (0.125 mg) tablet Take 125 mcg by mouth as directed. Patient takes 1 tab po every --01/04/2024 Discontinued (Discontinued by another Health Care Provider) Comment on above: Take 125 mcg by mout h as directed. Patient takes 1 tab po every docusate sodium 50 mg / sennosides, [facility] 8.6 mg oral tablet (2 sources) Start: End: take 2 tablets by mouth once daily for constipation 2 tablet, Oral, Nightly, First dose on Sun12/14/22 at 2100, Phase II/On Unit Bowel Regimen - for prevention of constipation. Drug or medicament (substance) (2 sources) Start: End: Topical, PRN, buttocks, Starting on Sun12/20/22 at 0243 EPINEPHrine 5mg in 0.9% sodium chloride 250 mL infusion (weight-based) (2 sources) Start: 023 End: 023 0.01-0.2 mcg/kg/min 76.7 kg (2.301-46.02 mL/hr, rounded to 2.3-46.02 mL/hr), IntraVENous, Continuous PRN, Initiate if Cardiac Index below 2.0; SBP less than 90 mmHg; and PAD above 18, Starting on Katey 12/14/22 at 1310, Phase II/On Unit Titrate by 0.01 mcg/kg/min no faster than every 5 minutes to goal May titrate outside of defined titration parameters (increments and frequency) under the direction of the provider. If cardiac index above hemodynamic goal, SBP above hemodynamic goal, and PAD above hemodynamic goal, wean drip, re-evaluate, once hemodynamic parameters are back within range; resume drip using previous ordered parameters. For unstable, emergent situation, may titrate accordingly to meet hemodynamic goal. Go al MAP greater than 65 less than 80 Goal SBP greater than 90 less than 130 Titrate Infusion? Yes Initial Infusion Dose: Other Other (mcg/min): 0.01 mcg/kg/min Goal of Therapy is: Other, MAP greater than 65 mmHg Other Goal: Refer to Hemodynamic Goals nursing order Contact Provider if: Patient is receiving the maximum dose and is not achieving the goal of therapy erythromycin 0.005 mg/mg ophthalmic ointment (20 sources) Macrolide, Macrolide Antimicrobial Start: 017 End: 025 Erythromycin 1 APPLIC ointment Discontinued 1 NMA LEFT EYE AT BEDTIME December 08, 2016 12:00am December 04, 2024 9:09am EYE INFECTION APPLY ONE APPLICATION TO LEFT EYE ONCE DAILY AT BEDTIME Start: 12-08-2016 Erythromycin A ctive 1 APPLIC LEFT EYE AT BEDTIME December 08, 2016 12:00am APPLY ONE APPLICATION TO LEFT EYE ONCE DAILY AT BEDTIME Start: 12-08-2016 ERYTHROMYCIN EX Apply topically. Ointement for eye 0 Active glucagon (rdna) 1 mg injection (2 sources) Antihypoglycemic Agent Start: 12-14-2022 End: 12-30-2022 take 1 mL intravenously every hour 1 mg, IntraMUSCular, PRN, low blood sugar, Blood glucose less than 70 mg/dL and patient NOT ALERT or NPO and does not have IV access., Starting on Katey 12/14/22 at 1310, Phase II/On Unit After administration, attempt intravenous access and start D5W at 100 mL/hr. Repeat blood glucose in 15 minutes x2 and notify provider. 150 ml glucose 50 mg/ml injection (4 sources) Start: 12-14-2022 End: 12-30-2022 12.5 g, IntraVENous, PRN, low blood sugar, Blood glucose less than 70 mg/dL and patient NOT ALERT or NPO., Starting on Katey 12/14/22 at 1310, Phase II/On Unit If patient does not respond within 5 minutes, repeat dose x1. Start D5W at 100 mL/hour until ordering provider can be reached. Repeat blood glucose in 15 minutes. If blood glucose is less than 70 mg/dL, repeat treatment and recheck blood glucose in 15 minutes x2. If using Glucostabilizer, dose as instructed per system. Start: 12-14-2022 End: 12-30-2022 100 mL/hr, IntraVENous, PRN, Blood sugar less than 70mg/dL, Starting on Katey 12/14/22 at 1310, Phase II/On Unit Start infusion following administration of dextrose 50% or glucagon. 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 Dyspnea 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 Other cardiomyopathies Presence of aortocoronary bypass graft Other specified postprocedural states Dyspnea, unspecified Atherosclerotic heart disease of [place] coronary artery without angina pectoris Good from 01/10/2024-01/09/2029 Start: 01-10-2024 Handicap Activ e 0 .Route .MEDSUPPLY 1 0 January 10, 2024 12:00am Nonischemic cardiomyopathy 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 Dyspnea 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 Other cardiomyopathies Presence of aortocoronary bypass graft Other specified postprocedural states Dyspnea, unspecified Atherosclerotic heart disease of [place] coronary artery without angina pectoris Good from 01/10/2024-01/09/2029 Start: 01-10-2024 Handicap Activ e 0 .Route .MEDSUPPLY January 10, 2024 12:00am Good from 01/10/2024-01/09/2029 hydroCHLOROthiazide 12.5 mg oral tablet (20 sources) Thiazide Diuretic Start: 08-01-2018 End: 11-18-2018 take 1 tablet by mouth once daily Hydrochlorothiazide 12.5 mg tablet Discontinued 12.5 mg PO DAILY 30 0 August 01, 2018 12:00am November 18, 2018 8:42am hydroCHLOROthiazide 12.5 mg / lisinopril 20 mg oral tablet (20 sources) Thiazide Diuretic, Angiotensin Converting Enzyme Inhibitor Start: 12-08-2016 End: 08-01-2018 Lisinopril-Hydrochlorot hiazide 1 TABLET tablet Discontinued 1 {tbl} PO DAILY December 08, 2016 12:00am August 01, 2018 9:58am Start: 12-08-2016 End: 08-01-2018 take 1 tablet by mouth once daily Lisinopril-Hydrochlorothiazide Discontin ued 1 TABLET PO DAILY December 08, 2016 12:00am August 01, 2018 9:58am Start: 12-08-2016 End: 08-01-2018 hydroCHLOROthiazide 12.5 mg / losartan potassium 50 mg oral tablet (20 sources) Thiazide Diuretic, Angiotensin 2 Receptor Amaury Start: 06-09-2022 End: 09-19-2022 take 1 tablet by mouth once daily Losartan-Hydrochlorothiazide Discontinued 1 TABLET PO DAILY July 25, 2022 4:25pm September 19, 2022 1:49pm Start: 06-09-2022 End: 09-19-2022 Start: 02-01-2021 End: 03-16-2023 Losartan-Hydrochlorothiazide 50-12.5 mg tablet Discontinued 1 {tbl} PO DAILY July 25, 2022 4:25pm September 19, 2022 1:49pm Start: 02-01-2021 End: 06-07-2022 take 1 tablet by mouth once daily Losartan-Hydrochlorothiazide Discontinued 1 TABLET PO DAILY January 16, 2022 5:09pm June 07, 2022 5:50pm Start: 02-01-2021 End: 06-07-2022 Comment on above: Take 1 tablet by ubaldo once daily. insulin glargine 100 unt/ml injectable solution (2 sources) Insulin Analog Start: End: 10 Units, SubCUTAneous, Once, On Sun12/15/22 at 1200, For 1 dose Give lantus x1 now then stop insulin gtt in one hour 100 ml insulin, regular, human 1 unt/ml injection (2 sources) Insulin Start: End: take 1-50 [IU] intravenously every hour, then take 1-50 mL intravenously every hour 1-50 Units/hr (1-50 mL/hr), IntraVENous, Continuous, Starting on Katey 12/14/22 at 1315, Phase II/On Unit As guided by calculator flowsheet Low target: 120 High target: 160 Hold insulin infusion if BS< 100 mg/dl, if BS < 70 mg/dl follow hypoglycemia treatment orders, continue to check BS as ordered, and restart insulin infusion if and when BS increases back into goal range. BUD: 30 days at room temperature 24 hr isosorbide mononitrate 30 mg extended release oral tablet (20 sources) Nitrate Vasodilator Start: End: take 1 tablet by mouth once daily, then take 1 tablet by mouth every twenty-four hours Isosorbide Mononitrate 30 mg tablet extended release 24 hr Discontinued 30 mg PO DAILY November 29, 2018 10:49am September 11, 2019 12:52pm lidocaine hydrochloride 0.02 mg/mg topical gel (2 sources) Antiarrhythmic, Amide Local Anesthetic Start: End: apply 0.5 mL topically once Topical, Once, On Sun12/19/22 at 0930, For 1 dose Draw up and instill 0.5 mL into the nares 5 minutes before inserting tube. If oxymetazoline is also ordered, instill the Lidocaine jelly after instillin g the oxymetazoline spray. lisinopril 5 mg oral tablet (20 sources) Angiotensin Converting Enzyme Inhibitor Start: 021 End: 022 take 1 tablet by mouth once daily lisinopril (ZESTRIL, PRINIVIL) 5 mg tablet Take 1 tablet by mouth once daily. 0 11/15/2020 11/16/2021 Discontinued (Discontinued by another Health Care Provider) Start: 06-21-2020 End: 02-01-2021 take 2 tablets by mouth once daily Lisinopril 2.5 mg tablet Discontinued 5 mg PO DAILY 90 September 10, 2020 11:40am February 01, 2021 10:06am Start: 11-18-2018 End: 06-21-2020 take 1 tablet by mouth once daily Lisinopril 2.5 mg tablet Discontinued 2.5 mg PO DAILY November 29, 2018 10:49am September 11, 2019 12:52pm Start: 11-18-2018 End: 02-01-2021 take 5 mg by mouth once daily Lisinopril Discontinued 5 MG PO DAILY September 10, 2020 11:40am February 01, 2021 10:06am Comment on above: Take 1 tablet by ubaldo th once daily. magnesium hydroxide 80 mg/ml oral suspension (2 sources) Start: 12-15-19 End: 12-31-19 take 30 mL by mouth every twenty-four hours as needed for constipation 30 mL, Oral, Daily PRN, constipation, Starting on Katey 12/14/22 at 1310, Phase II/On Unit 1st line for treatment of constipation - give scheduled if no bowel movement in past 24 hours meclizine hydrochloride 25 mg oral tablet (20 sources) Antiemetic Start: 04-04-20 End: 05-01-19 take 1 tablet by mouth three times daily as needed for dizziness Meclizine 25 MG tablet Discontinued 25 mg PO 3 TIMES DAILY NEEDED as needed for Dizziness August 01, 2018 12:00am May 01, 2023 2:09pm Comment on above: Take 1 tablet by ubaldo th three times daily as needed (dizziness). 24 hr metoprolol succinate 50 mg extended release oral tablet (20 sources) beta-Adrenergic Amaury Start: 06-27-19 24 End: 06-27-19 24 take 1 tablet by mouth twice daily Metoprolol Succinate 50 mg tablet extended release 24 hr Discontinued 50 mg PO TWICE A DAY June 27, 2023 1:00am June 27, 2023 5:17pm BLOOD PRESSURE Start: 04-13-2023 End: 04-27-2023 take 1 tablet by mouth twice daily Metoprolol Succinate 50 mg tablet extended release 24 hr Discontinued 50 mg PO TWICE A DAY 180 3 April 13, 2023 1:00am April 27, 2023 4:05pm This is a dose increase for tachycardia Start: 02-09-2023 End: 10-01-2023 take 1 tablet by mouth twice daily Metoprolol Succinate 25 mg tablet extended release 24 hr Discontinued 25 mg PO TWICE A DAY April 27, 2023 1:00am May 01, 2023 2:52pm Start: 12-30-2022 End: 03-30-2023 take 1 tablet by mouth once daily Metoprolol Succinate 25 mg tablet extended release 24 hr Discontinued 25 mg PO DAILY 90 3 February 19, 2023 9:58am February 19, 2023 4:18pm Pt back home from [facility] post op Start: 12-22-2022 End: 12-30-2022 Start: 12-21-2022 End: 12-22-2022 take 25 mg by mouth once daily 25 mg, Oral, Daily, Fir st dose on Sun12/21/22 at 2100 Do not crush or chew. Start: 12-19-2022 End: 12-21-2022 12.5 mg, Oral, 2 times daily , First dose on Sun12/19/22 at 1315 Hold for SBP less than 105 and/or MAPs less than 65 and/or HR less than 60 Comment on above: Take 25 mg by mouth two times a day. mupirocin 0.02 mg/mg topical ointment (4 sources) RNA Synthetase Inhibitor Antibacterial Start: 12-14-2022 End: 12-17-2022 Nasal, 2 times daily, First dose on Sun12/14/22 at 1315, For 4 days, Phase II/On Unit Start: 12-14-2022 End: 12-14-2022 take 1 dose nasal route once Nasal, Once, On Sun at 0600, For 1 dose, Preprocedure Apply liberal amount per nostril the morning of surgery using a q-tip. Do not totally occlude either nostril. naproxen sodium 220 mg oral capsule (20 sources) Nonsteroidal Anti-inflammatory Drug Start: 06-12-2023 End: 06-17-2023 take 1 capsule by mouth twice daily as needed for pain Naproxen Sodium 220 mg capsule Discontinued 220 mg PO TWICE A DAY as needed for pain June 12, 2023 1:00am June 17, 2023 1:06pm norepinephrine (Levophed) 16 mg in 0.9% sodium chloride 250 mL infusion (weight based) (premix) (2 sources) Start: 12-14-2022 End: 12-17-2022 0.01-0.2 mcg/kg/min 76.7 kg (0.7191-14.3813 mL/hr, rounded to 0.72-14.38 mL/hr), IntraVENous, Continuous PRN, Initiate if Cardiac Index above 2.0; SBP less than 90 mmHg or MAP less than 65 mmHg; and PAD above 18, Starting on Katey 12/14/22 at 1310, Phase II/On Unit Infuse via central line. If Titrate Infusion? is No: Disregard instructions below. &nbsp ;If Titrate infusion? is Yes: Titra te in increments of 0.02 mcg/kg/min no faster than every 5 minutes to goal. When approaching therapeutic goal or weaning off, smaller titration increments of 0.01 mcg/kg/min no faster than every 5 minutes may be used to maintain goal. Goal Maintain SBP greater than 90 and less than 130 Goal Maintain MAP greater than 65 and less than 80 Titrate Infusion: Yes Infusion Dose: Other Infusion Dose: 0.01 mcg/kg/min Goal of Therapy is: MAP great than 65 mmHg, SBP greater than 90 mmHg Contact Provider if: Patient is receiving the maximum dose and is not achieving the goal of therapy omeprazole 40 mg delayed release oral capsule (20 sources) Proton Pump Inhibitor Start: 12-08-2016 End: 06-27-2023 take 1 capsule by mouth once daily Omeprazole 40 mg capsule,delayed release(DR/EC) Discontinued 40 mg PO DAILY June 27, 2023 1:00am June 27, 2023 5:16pm GERD Comment on above: Take 1 capsule by [facility] once daily. oxyCODONE hydrochloride 5 mg oral tablet (7 sources) Opioid Agonist Start: 12-14-2022 End: 01-09-2023 take 1 tablet by mouth every six hours as needed for pain oxyCODONE (Roxicodone) 5 MG immediate release tablet Indications: S/P CABG (coronary artery bypass graft) Take 1 tablet (5 mg) by mouth every 6 hours as needed for moderate pain (4-6) or severe pain (7-10) for up to 5 days. 20 tablet 0 12/30/2022 01/09/2023 Discontinued (Therapy completed) oxymetazoline hydrochloride 0.5 mg/ml nasal spray (2 sources) Start: 12-19-2022 End: 12-19-2022 2 spray, Each Nostril, Once, On Sun12/19/22 at 0930, For 1 dose Two sprays in each nares 5 minutes prior to inserting tube. polyethylene glycol 3350 08200 mg powder for oral solution (2 sources) Osmotic Laxative Start: 12-14-2022 End: 12-30-2022 17 g, Oral, Daily, First dose on Sun12/14/22 at 1315, Phase II/On Unit Bowel Regimen - for prevention of constipation. potassium chloride 20 meq extended release oral tablet (20 sources) Start: 03-14-2023 End: 05-16-2023 take 1 tablet by mouth once daily Potassium Chloride 20 mEq tablet extended release Discontinued 20 meq PO DAILY 90 3 March 14, 2023 1:00am May 16, 2023 1:58pm Start: 12-30-2022 End: 03-30-2023 take 20 mEq by mouth once daily potassium chloride (Kl or-Con) 20 MEQ packet Take 20 mEq by mouth daily. Hold while not taking lasix (3 days). Restart to take daily on 01/02/23. 30 packet 2 12/30/2022 03/30/2023 Active Start: 12-21-2022 End: 12-21-2022 40 mEq, Nasogastric, Once, O n Katey 12/21/22 at 0215, For 1 dose Dissolve each packet in 4 ounces of water = 5 mEq per 1 oz fluid. Start: 12-20-2022 End: 12-30-2022 take 1 [oz_av] by mouth twice daily 20 mEq, Oral, 2 times daily, First dose on Sun12/20/22 at 0900 Dissolve each packet in 4 ounces of water = 5 mEq per 1 oz fluid. Start: 12-15-2022 End: 12-30-2022 20 mEq, Oral, PRN, Hypokalem ia, Starting on Sun12/15/22 at 0000, Phase II/On Unit If patient is intubated or not tolerating [...] or break. Do not crush or chew. Comment on above: Take 1 tablet by ubaldo th daily with breakfast. predniSONE 20 mg oral tablet (20 sources) Start: 7 End: 9 take 1 tablet by mouth twice daily Prednisone 20 MG tablet Discontinued 20 mg PO TWICE A DAY December 08, 2016 12:00am August 01, 2018 10:00am steroid 100 ml propofol 10 mg/ml injection (2 sources) General Anesthetic Start: 3 End: 3 5-50 mcg/kg/min 76.7 kg (2.301-23.01 mL/hr, rounded to 2.3-23.01 mL/hr), IntraVENous, Continuous, Starting on Katey 12/14/22 at 1315, Phase II/On Unit Instructions If RASS 1 point below goal - decrease dose by 5mcg/kg/min no faster than every 5 min If RASS 2 points below goal- decrease dose by 10mcg/kg/min no faster than every 5 min If RASS at goal, continue current dose If RASS 2 or more points above goal - increase dose by 10mcg/kg/min no faster than every 5 min If RASS 1 point above goal - increase dosee by 5mcg/kg/min no faster than every 5 min If after titration rate change patient exhibits adverse hemodynamic response, next titration rate change may be adjusted by one-half of the previous rate change If patient fails sedation interruption, resume propofol titration at 50% of previous rate General Anesthetic - do not give without appropriate ventilation support. Do not administer propofol in same IV catheter as blood or plasma. Discard any unused portion of propofol vials and tubing after 12 hours. Titrate Infusion? Yes Initial Infusion Dose: 30 mcg/kg/min Goal of Therapy: RASS of -1 to 0 Contact Provider if: Patient is receiving maximum dose and is not achieving the goal of therapy propylene glycol 6 mg/ml ophthalmic solution (20 sources) Start: 4 End: 5 take 0.6 drop(s) into the eye(s) once daily as needed Propylene Glycol (Lubricant Eye (Propyl Glycol)) 0.6 % drops Discontinued 1 NMA EACH EYE DAILY as needed for DRY EYE June 12, 2023 1:00am December 04, 2024 9:09am Start: 06-12-2023 take 0.6 drop(s) int o the eye(s) once daily Propylene Glycol (Lubricant Eye (Propyl Glycol)) 0.6 % drops Active 1 DRP EACH EYE DAILY June 12, 2023 1:00am Start: 08-01-2018 End: 02-01-2021 Propylene Glycol 10 ML drops Discontinued 2 NMA LEFT EYE 4 TIMES DAILY NEEDED as needed for Dry Eyes August 01, 2018 12:00am February 01, 2021 9:34am Start: 08-01-2018 End: 02-01-2021 Propylene Glycol Discontinue d 2 DRP LEFT EYE 4 TIMES DAILY NEEDED August 01, 2018 12:00am February 01, 2021 9:34am Start: 08-01-2018 End: 02-01-2021 rosuvastatin calcium 20 mg oral tablet (2 sources) HMG-CoA Reductase Inhibitor Start: 12-15-2022 End: 12-30-2022 take 40 mg by mouth once daily 40 mg, Oral, Daily, First dose on Sun12/15/22 at 2100 sacubitril 24 mg / valsartan 26 mg oral tablet (20 sources) Angiotensin 2 Receptor Amaury Start: 06-11-2023 End: 06-17-2023 Sacubitril-Valsarta n (Entresto) 24-26 mg tablet Discontinued 1 {tbl} PO TWICE A DAY June 11, 2023 1:00am June 17, 2023 1:06pm Start: 06-11-2023 End: 06-17-2023 Start: 09-19-2022 End: 06-05-2023 Start: 06-07-2022 End: 06-05-2023 Sacubitril-Valsartan (Entres to) 24-26 mg tablet Discontinued 1 {tbl} PO TWICE A DAY February 09, 2023 1:39pm June 05, 2023 5:14pm Start: 06-07-2022 End: 06-09-2022 End: 01-09-2023 take 1 tablet by mouth in the morning sacubitril-valsartan (Entresto) 24-26 MG tablet Take 1 tablet by mouth in the morning and 1 tablet in the evening. 0 01/09/2023 Discontinued (Reorder) Comment on above: Take 1 tablet by [facility] twice daily. 10 ml sodium bicarbonate 84 mg/ml injection (2 sources) Start: 12-14-2022 End: 12-14-2022 25 mEq, IntraVENous, Once, On Sun12/14/22 at 1430, For 1 dose 5 ml sodium chloride 9 mg/ml injection (8 sources) Start: 12-14-2022 End: 12-30-2022 10 mL, IntraVENous, Every 12 hours scheduled (2 times per day), First dose on Sun12/14/22 at 2100, Phase II/On Unit Start: 12-14-2022 End: 12-14-2022 250 mL, IntraVENous, at 500 mL/hr, Administer over 30 Minutes, Once, On Sun12/14/22 at 1400, For 1 dose Start: 12-14-2022 End: 12-15-2022 take 20 mL intravenously every hour 20 mL/hr, IntraVENous, Continuous, Starting on Sun12/14/22 at 1315, Phase II/On Unit 20 ml/hr to SP(introducer) and WT on [place] Jb Catheter; once [place] discontinued run at 20 ml/hr through SP(introducer) Start: 12-14-2022 End: 12-14-2022 take 50 mL intravenously every hour 50 mL/hr, IntraVENous, Continuous, Starting on Katey 12/14/22 at 0600, Preprocedure Upon admission to sameday - please start iv if patient does not have iv access. spironolactone 25 mg oral tablet (20 sources) Aldosterone Antagonist Start: 10-29-2024 End: 12-15-2024 Spironolactone 25 mg tablet Discontinued 12.5 mg PO DAILY October 29, 2024 11:28am December 15, 2024 9:15am Start: 02-21-2023 End: 03-06-2023 Spironolactone 25 mg tablet Discontinued 12.5 mg PO DAILY 90 February 21, 2023 3:37pm March 06, 2023 10:55am Pt back home from [facility] post op On Hold: hypotension and lightheaded Start: 02-09-2023 End: 03-06-2023 take 12.5 mg by mouth once daily Spironolactone Discontinued 12.5 MG PO DAILY February 21, 2023 3:37pm March 06, 2023 10:55am On Hold: hypotension and lightheaded Start: 02-01-2021 End: 12-24-2024 take 1 tablet by mouth once daily Spironolactone 25 mg tablet Discontinued 25 mg PO DAILY 90 May 02, 2024 1:31pm October 29, 2024 11:29am Comment on above: Take 1 tablet by [facility] once daily. Take 25 mg by mouth once daily. 5 ml sugammadex 100 mg/ml injection (2 sources) Start: 12-14-2022 End: 12-14-2022 310 mg (rounded from 306.8 mg = 4 mg/kg 76.7 kg), IntraVENous, Once, On Katey 12/14/22 at 1330, For 1 dose, Phase II/On Unit ticagrelor 90 mg oral tablet (20 sources) Start: 11-18-2018 End: 02-10-2019 take 1 tablet by mouth twice daily Ticagrelor 90 mg tablet Discontinued 90 mg PO TWICE A DAY 60 2 November 29, 2018 11:28am February 10, 2019 9:27am 12 hr timolol 5 mg/ml ophthalmic solution (20 sources) beta-Adrenergic Amaury Start: 12-16-2022 End: 12-30-2022 take 1 drop(s) into the eye(s) twice daily 1 drop, Left Eye, 2 times daily, First dose on 12/16/22 at 1115 Start: 02-14-2022 take 1 drop(s) into the eye(s) twice daily Start: 02-14-2022 take 1 drop(s) into the eye(s) twice daily Timolol Maleate 0.5 % drops Active 1 NMA OPHTHALMIC TWICE A DAY February 14, 2022 12:00am GLAUCOMA INSTILL ONE DROP INTO THE LEFT EYE TWICE DAILY. Start: 02-14-2022 take 1 drop(s) into the eye(s) twice daily Timolol Maleate 0.5 % drops Active 1 NMA OPHTHALMIC TWICE A DAY February 14, 2022 12:00am INSTILL ONE DROP INTO THE LEFT EYE TWICE DAILY. Start: 02-14-2022 take 1 drop(s) into the eye(s) twice daily Timolol Maleate Active 1 DRP OPHTHALMIC TWICE A DAY February 14, 2022 12:00am INSTILL ONE DROP INTO THE LEFT EYE TWICE DAILY. Start: 02-14-2022 Start: 02-14-2022 Timolol Maleat e Active 1 DRP OPHTHALMIC TWICE A DAY February 14, 2022 12:00am left eye Start: 02-14-2022 Timolol Maleat e Active 1 DRP OPHTHALMIC TWICE A DAY February 13, 2022 11:00pm left eye Start: 11-16-2021 timolol maleat e (TIMOPTIC) 0.5 % ophthalmic solution Use 1 Drop in the left eye twice daily. 11/16/2021 Active Start: 11-16-2021 take 1 drop(s) into the eye(s) in the morning timolol (Timoptic) 0.5 % ophthalmic solution Administer 1 drop into the left eye in the morning and 1 drop in the evening. 0 11/16/2021 Active Start: 11-16-2021 timolol maleat e (TIMOPTIC) 0.5 % ophthalmic solution Use 1 Drop in the left eye twice daily. 0 11/16/2021 Active Comment on above: Use 1 Drop in the le ft eye twice daily. valsartan 40 mg oral tablet (20 sources) Angiotensin 2 Receptor Amaury Start: 4 End: take 1 tablet by mouth twice daily Valsartan (Diovan) 40 mg tablet Discontinued 40 mg PO DAILY 60 0 June 17, 2023 1:00am July 13, 2023 9:36am BLOOD PRESSURE 1/day, if blood pressure remains above 90 systolic after 1 week, increase the medication to 1 twice a day Vit A,C And D-Jbhxyx-Qgbnjvzs (Eye Health Plus Lutein) 300 mcg-200 mg-27 mg-2 mg tablet (20 sources) Start: End: Vit A,C And K-Crniqq-Upjvzbmo ([facility] Plus Lutein) 300 mcg-200 mg-27 mg-2 mg tablet Discontinued 1 {tbl} PO TWICE A DAY February 14, 2022 12:00am June 27, 2023 4:58pm Start: 02-14-2022 End: 06-27-2023 take 1 tablet by mouth twice daily Vit A,C And N-Tlkpnk-Zwtyiifk ([facility] Plus Lutein) 300 mcg-200 mg-27 mg-2 mg tablet Discontinued 1 TABLET PO TWICE A DAY February 14, 2022 12:00am June 27, 2023 4:58pm Start: 02-14-2022 take 1 tablet by ubaldo th twice daily Vit A,C And U-Zpovvp-Cnttitdj (Eye Health Plus Lutein) 300 mcg-200 mg-27 mg-2 mg tablet Active 1 TABLET PO TWICE A DAY February 14, 2022 12:00am Start: 02-14-2022 take 1 tablet by ubaldo th twice daily Vit A,C And A-Xtojgb-Obxzackp ([facility] Plus Lutein) 300 mcg-200 mg-27 mg-2 mg tablet Active 1 TABLET PO TWICE A DAY February 13, 2022 11:00pm (4 sources) Start: 12-26-2022 End: 12-26-2022 take 30 mL by mouth once as needed 30 mL, Oral, IMG once PRN, given orally, Starting on Sun12/26/22 at 1513, For 1 dose Start: 12-17-2022 End: 12-17-2022 take 30 mL by mouth once as needed 30 mL, Oral, IMG once PRN, once-cookie, Starting on Sun12/17/22 at 1105, For 1 dose (2 sources) Start: 12-22-2022 End: 12-22-2022 take 60 mL by mouth once 60 mL, Oral, Once, On Sun12/22/22 at 1100, For 1 dose (2 sources) Start: 12-14-2022 End: 12-17-2022 0.01-0.03 Units/min (3-9 mL/hr), IntraVENous, Continuous, Starting on Katey 12/14/22 at 1630 If Titrate Infusion? is No: Disregard instructions below. If Titrate infusion? is Yes: Increase dose by 0.01 units/min no faster than every 10 minutes to goal. Decrease dose by 0.01 units/min no faster than every 30 minutes while maintaining goal parameter. Titrate Infusion? Yes Initial Infusion Dose: 0.03 units/min Goal of Therapy is: MAP greater than 65 mmHg Contact Provider if: Patient is receiving the maximum dose and is not achieving the goal of therapy Problems Active Problems Problem Classification Problem Date Documented Da te Episodic/Chronic Acute and unspecified renal failure (20 sources) Injury of kidney; Translations: [Acute kidney failure, unspecified] Onset: 7 Resolved: 7 12-31-2016 Episodic Acute myocardial infarction (2 sources) Myocardial infarction; Translations: [Acute myocardial infarction, unspecified] Onset: 9 01-09-2023 Chronic Adjustment disorders (20 sources) Adjustment disorder with anxious mood; Translations: [Adjustment disorder with anxiety] Onset: 9 07-31-2018 Chronic Administrative/social admission (4 sources) Patient encounter status; Translations: [Persons encountering health services in other specified circumstances] Episodic Anxiety disorders (20 sources) Anxiety; Translations: [Anxiety disorder, unspecified] 01-31-2021 Chronic Cardiac dysrhythmias (20 sources) Paroxysmal atrial flutter; Translations: [Unspecified atrial flutter] Onset: 5 05-05-2022 Chronic Chronic kidney disease (20 sources) Chronic kidney disease stage 3A ; Translations: [Stage 3a chronic kidney disease (HCC)] Onset: 7 Chronic Chronic kidney disease (2 sources) Chronic kidney disease; Translations: [Chronic kidney disease, stage 3b] Onset: 5 Coagulation and hemorrhagic disorders (20 sources) Acquired coagulation disorder; Translations: [Coagulation defect, unspecified] 06-12-2023 Chronic Complication of device; implant or graft (4 sources) Arteriosclerosis of coronary artery bypass graft; Translations: [Atherosclerosis of coronary artery bypass graft(s), unspecified, with angina pectoris with documented spasm] Onset: 3 12-14-2022 Chronic Conditions associated with dizziness or vertigo (20 sources) Benign paroxysmal positional vertigo; Translations: [Benign paroxysmal vertigo, unspecified ear] Onset: 7 04-11-2017 Episodic Conduction disorders (20 sources) Complete atrioventricular block; Translations: [Atrioventricular block, complete] Onset: 9 Chronic Comment on above: Asantae 08/02/2018 Congestive heart failure; nonhypertensive (20 sources) Chronic diastolic heart failure; Translations: [Chronic diastolic (congestive) heart failure] Onset: 3 02-01-2021 Chronic Coronary atherosclerosis and other heart disease (20 sources) Coronary arteriosclerosis; Translations: [Atherosclerotic heart disease of [place] coronary artery without angina pectoris] Onset: 9 Chronic Comment on above: PCI-NEGRO-Mid LAD w/ 3 .0 x 17 mm Elunir Stent and NEGRO-Prox LCx w/ 2.5 x 8 mm Resolute Stent 11/16/18; PCI-NEGRO-Mid RCA w/ 3.5 x 38 mm and 4.0 x 12 mm Synergy Stent 12/19/18; PEDRAZA to the LAD and SVG to the OM 1 11/2022' Coronary atherosclerosis and other heart disease (20 sources) Presence of coronary angioplasty implant and graft; Translations: [Percutaneous transluminal coronary angioplasty status] Onset: 9 11-14-2022 Episodic Deficiency and other anemia (20 sources) Anemia; Translations: [Anemia, unspecified] 06-12-2023 Episodic Deficiency and other anemia (20 sources) Chronic anemia; Translations: [Anemia, unspecified] 06-11-2023 Episodic Deficiency and other anemia (4 sources) Iron deficiency anemia; Translations: [Iron deficiency anemia, unspecified] 08-07-2023 Episodic Deficiency and other anemia (1 source) Iron deficiency anemia, unspecified; Translations: [Iron deficiency anemia, unspecified iron deficiency anemia type] Onset: 5 Episodic Disorders of lipid metabolism (20 sources) Hyperlipidemia; Translations: [Hyperlipidemia, unspecified] Onset: 1 Chronic E Codes: Fall (20 sources) Fall; Translations: [Unspecified fall, initial encounter] 12-19-2022 Episodic Esophageal disorders (20 sources) Gastroesophageal reflux disease without esophagitis; Translations: [Gastro-esophageal reflux disease without esophagitis] Onset: 6 Chronic Essential hypertension (20 sources) Benign hypertension; Translations: [Essential (primary) hypertension] Onset: 6 Chronic Fluid and electrolyte disorders (5 sources) Hypokalemia; Translations: [Hypokalemia] 03-17-2023 Episodic Gastrointestinal hemorrhage (6 sources) Gastrointestinal hemorrhage; Translations: [Chronic or unspecified duodenal ulcer with hemorrhage] 06-27-2023 Chronic Gastrointestinal hemorrhage (20 sources) Gastrointestinal hemorrhage; Translations: [Gastrointestinal hemorrhage, unspecified] 06-12-2023 Episodic Heart valve disorders (20 sources) Mitral valve regurgitation; Translations: [Nonrheumatic mitral (valve) insufficiency] Onset: 3 11-22-2022 Chronic Immunizations and screening for infectious disease (2 sources) Vaccination needed; Translations: [Encounter for immunization] Episodic Inflammation; infection of eye (except that caused by tuberculosis or sexually transmitteddisease) (20 sources) Herpes zoster keratoconjunctivitis; Translations: [Zoster keratitis] Onset: 6 07-01-2015 Episodic Malaise and fatigue (20 sources) Fatigue; Translations: [Other fatigue] 11-07-2022 Episodic Nonmalignant breast conditions (20 sources) Fibrocystic disease of breast; Translations: [Diffuse cystic mastopathy of unspecified breast] Onset: 6 07-01-2015 Chronic Nonspecific chest pain (20 sources) Chest pain; Translations: [Chest pain, unspecified] 11-18-2018 Episodic Nutritional deficiencies (20 sources) Vitamin D deficiency; Translations: [Vitamin D deficiency, unspecified] Onset: 8 09-13-2017 Chronic Osteoarthritis (20 sources) Arthritis of left ankle; Translations: [Primary osteoarthritis, left ankle and foot] Onset: 9 11-01-2018 Chronic Other aftercare (20 sources) Long-term current use of anticoagulant; Translations: [watermaster (current) use of anticoagulants] 03-12-2023 Episodic Other aftercare (9 sources) watermaster (current) use of anticoagulants; Translations: [Long-term (current) use of anticoagulants] Onset: 5 03-16-2023 Episodic Other aftercare (17 sources) Long-term current use of diuretic; Translations: [Encounter for therapeutic drug level monitoring] 07-25-2023 Episodic Other aftercare (8 sources) Drug therapy finding; Translations: [Other group home (current) drug therapy] 11-20-2024 Episodic Other aftercare (1 source) 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; Translations: [[facility] current use of diuretic] Onset: 5 Episodic Other circulatory disease (20 sources) Low blood pressure; Translations: [Hypotension, unspecified] 06-12-2023 Episodic Other circulatory disease (5 sources) Hypotension, unspecified; Translations: [Hypotension, unspecified] 06-12-2023 Episodic Other fractures (20 sources) Closed fracture of sternum; Translations: [Fracture of body of sternum, initial encounter for closed fracture] Onset: 9 02-10-2019 Episodic Other fractures (20 sources) Fracture of sternum; Translations: [Unspecified fracture of sternum, initial encounter for closed fracture] 09-10-2019 Episodic Other gastrointestinal disorders (20 sources) Diarrhea; Translations: [Diarrhea, unspecified] 08-02-2018 Episodic Other injuries and conditions due to external causes (20 sources) Closed injury of head; Translations: [Unspecified injury of head, initial encounter] 12-19-2022 Episodic Other lower respiratory disease (20 sources) Fibrosis of lung; Translations: [Pulmonary fibrosis, unspecified] Onset: 4 06-02-2022 Chronic Other lower respiratory disease (6 sources) Pulmonary fibrosis, unspecified; Translations: [Postinflammatory pulmonary fibrosis] Onset: 4 03-19-2023 Chronic Other lower respiratory disease (20 sources) Dyspnea; Translations: [Shortness of breath] 12-09-2021 Episodic Other lower respiratory disease (2 sources) Dyspnea, unspecified; Translations: [Other respiratory abnormalities] 02-14-2022 Episodic Other lower respiratory disease (10 sources) Shortness of breath; Translations: [Shortness of breath] Onset: 5 11-14-2022 Episodic Other lower respiratory disease (18 sources) Dyspnea on exertion; Translations: [Other forms of dyspnea] 03-14-2023 Episodic Other lower respiratory disease (7 sources) Other forms of dyspnea; Translations: [Other respiratory abnormalities] 03-16-2023 Episodic Other lower respiratory disease (1 source) Orthopnea; Translations: [Orthopnea] 04-04-2023 Episodic Other lower respiratory disease (5 sources) Dyspnea at rest; Translations: [Shortness of breath] 06-27-2023 Episodic Other lower respiratory disease (1 source) Acute pulmonary edema; Translations: [Acute pulmonary edema] 06-27-2023 Episodic Other lower respiratory disease (4 sources) Cough; Translations: [Acute cough] 05-10-2024 Episodic Other nervous system disorders (1 source) Unsteady when walking; Translations: [Unsteadiness on feet] 05-16-2024 Episodic Other nutritional; endocrine; and metabolic disorders (20 sources) Obese class I; Translations: [Obesity, unspecified] Onset: 1 11-15-2020 Chronic Other nutritional; endocrine; and metabolic disorders (1 source) Hypocalcemia; Translations: [Hypocalcemia] 11-14-2022 Chronic Other nutritional; endocrine; and metabolic disorders (1 source) Weight loss; Translations: [Abnormal weight loss] 08-07-2023 Episodic Other screening for suspected conditions (not mental disorders or infectious disease) (20 sources) Imaging of thorax abnormal; Translations: [Abnormal findings on diagnostic imaging of other specified body structures] 06-02-2022 Chronic Other screening for suspected conditions (not mental disorders or infectious disease) (20 sources) Thallium stress test abnormal; Translations: [Abnormal result of other cardiovascular function study] 01-31-2021 Episodic Other skin disorders (20 sources) Lichen sclerosus et atrophicus; Translations: [Circumscribed scleroderma] Onset: 7 02-22-2017 Chronic Other upper respiratory infections (3 sources) Viral upper respiratory tract infection; Translations: [Acute upper respiratory infection, unspecified] Onset: 5 05-11-2022 Episodic Bebe-; endo-; and myocarditis; cardiomyopathy (except that caused by tuberculosis or sexually transmitted disease) (20 sources) Cardiomyopathy; Translations: [Other cardiomyopathies] 03-19-2023 Chronic Residual codes; unclassified (20 sources) History of repair of mitral valve; Translations: [Other specified postprocedural states] Onset: 3 01-09-2023 Episodic Comment on above: 11/2022 Residual codes; unclassified (20 sources) Other specified postprocedural states; Translations: [Other postprocedural status] Onset: 3 02-09-2023 Episodic Residual codes; unclassified (20 sources) Other specified health status; Translations: [Failure of outpatient treatment] 03-16-2023 Episodic Residual codes; unclassified (2 sources) Pale complexion; Translations: [Pallor] 06-27-2023 Episodic Septicemia (except in labor) (20 sources) Sepsis; Translations: [Sepsis, unspecified organism] 09-12-2018 Episodic Superficial injury; contusion (20 sources) Contusion of left ear; Translations: [Contusion of left ear, initial encounter] 12-19-2022 Episodic Unclassified (2 sources) New Patient; Translations: [New Patient] Onset: 3 Unclassified (1 source) Acute cough; Translations: [Acute cough] Onset: 5 Past or Other Problems Problem Classification Problem Date Documented Da te Episodic/Chronic Deficiency and other anemia (5 sources) Anemia, unspecified; Translations: [Anemia, unspecified] Onset: 11-11-2024 06-12-2023 Episodic Diseases of mouth; excluding dental (2 sources) Lesion of oral mucosa; Translations: [Unspecified lesions of oral mucosa] Onset: 05-16-2024 05-16-2024 Episodic Diseases of white blood cells (20 sources) Neutrophilia; Translations: [Disorder of white blood cells, unspecified] Onset: 12-22-2016 Resolved: 12-14-2017 12-14-2017 Chronic Other gastrointestinal disorders (20 sources) Occult blood in stools; Translations: [Other fecal abnormalities] Onset: 12-21-2016 12-21-2016 Episodic Other nervous system disorders (1 source) Unsteadiness on feet; Translations: [Unsteady gait when walking] Onset: 05-16-2024 Episodic Pneumonia (except that caused by tuberculosis or sexually transmitted disease) (7 sources) Infective pneumonia; Translations: [Pneumonia, unspecified organism] Onset: 05-16-2024 Episodic Results Test Name Value Interpretation Reference Range Facility Anion gap in Serum or Plasma Ordered By: Christie Guzman on 02-03-2025 Anion gap [Moles/Vol] 13 mmol/L 09-11 [facility] BUN/creatinine ratioOrdered By: Christie Guzman on 02-03-2025 Urea nitrogen/Creatinine [Mass ratio] 14.1 mg/mg 02-16 [facility] Basic Metabolic Profile (BMP )on 02-03-2025 BUN/CRE 14.1 RATIO Normal 02-16 [facility] Comment on above: Performed By: #### L [id number] #### [facility] [address] [place], [address] Calcium [Mass/Vol] 9.0 mg/dL Normal 7.6-11.0 [facility] Comment on above: Performed By: #### L [id number] #### [facility] [address] [place], [address] Chloride [Moles/Vol] 103 mmol/L Normal 98-108 [facility] Comment on above: Performed By: #### L [id number] #### [facility] [address] [place], [address] CO2 [Moles/Vol] 25.9 mmol/L Normal 21.0-32.0 [facility] Comment on above: Performed By: #### L [id number] #### [facility] [address] [place], [address] Creatinine [Mass/Vol] 1.91 mg/dL High 0.70-1.20 [facility] Comment on above: Performed By: #### L [id number] #### [facility] [address] [place], [address] GAP 13 Normal 5-15 [facility] Comment on above: Performed By: #### L [id number] #### [facility] [address] [place], [address] GFR/1.73 sq M.predicted among non-blacks MDRD (S/P/Bld) [Vol rate/Area] 25 mL/min/{1.73_m2} Low >60 [facility] Comment on above: Result Comment: mL/m in/1.73m2 CKD-EPI Creatinine Equation (2020) Performed By: #### L 500.2500 #### [facility] [address] [place], [address] Glucose [Mass/Vol] 79 mg/dL Normal 70-99 [facility] Comment on above: Performed By: #### L [id number] #### [facility] [address] [place], [address] Potassium [Moles/Vol] 4.1 mmol/L Normal 3.3-5.1 [facility] Comment on above: Result Comment: Hemo lysis present, Results??could be affected. ?? Performed By: #### L [id number] #### [facility] [address] [place], [address] Sodium [Moles/Vol] 142 mmol/L Normal 133-145 [facility] Comment on above: Performed By: #### L [id number] #### [facility] [address] [place], [address] Urea nitrogen [Mass/Vol] 27 mg/dL High 4-19 [facility] Comment on above: Performed By: #### L [id number] #### [facility] [address] [place], [address] Carbon dioxide, total [Moles /volume] in Central venous bloodOrdered By: Christie Guzman on 02-03-2025 CO2 [Moles/Vol] 25.9 mmol/L 21.0-32.0 [facility] Chloride assayOrdered By: Nohemy Guzman on 02-03-2025 Chloride [Moles/Vol] 103 mmol/L 98-108 [facility] Glomerular filtration rate ( GFR) estimation/1.73 sq m using serum, plasma, or whole bOrdered By: Christie Guzman on 02-03-2025 GFR/1.73 sq M.predicted among non-blacks MDRD (S/P/Bld) [Vol rate/Area] 25 mL/min/{1.73_m2} Low >60 [facility] Comment on above: mL/min/1.73m2 CKD-EP I Creatinine Equation (2020) Potassium measurement (mass/ volume)Ordered By: Crhistie Guzman on 02-03-2025 Potassium (Unsp spec) [Mass/Vol] 4.1 mmol/L 3.3-5.1 [facility] Comment on above: Hemolysis present, R esults could be affected. Serum creatinine measurement (mass/volume)Ordered By: Christie Guzman on 02-03-2025 Creatinine [Mass/Vol] 1.91 mg/dL High 0.70-1.20 [facility] Serum glucose measurement (m ass/volume)Ordered By: Christie Guzman on 02-03-2025 Glucose [Mass/Vol] 79 mg/dL 70-99 [facility] Serum or plasma calcium etta urement (mass/volume)Ordered By: Christie Guzman on 02-03-2025 Calcium [Mass/Vol] 9.0 mg/dL 7.6-11.0 [facility] Serum or plasma urea nitroge n measurement (mass/volume)Ordered By: Christie Guzman on 02-03-2025 Urea nitrogen [Mass/Vol] 27 mg/dL High 4-19 [facility] Sodium levelOrdered By: Mak Guzman on 02-03-2025 Sodium [Moles/Vol] 142 mmol/L 133-145 [facility] Pacemaker Checkon 01-19-2025 Pacemaker Check [facility] [address] [place], [place] [address]. [address] [place], [place] [address] Pacemaker Check Date of Service: 01/19/25 1800 MR#: [id number] Acct: [id number] Name: DAYANA QUIÑONES Rep #: [id number] : 1940 From: Heather Canseco Age/Sex: 84/F Location[place] [facility] [place] Status: Signed Billing Codes PM Device Codes: 46404 PM Dev Prog Eval, Dual Assessment and Plan Assessment and Plan (1) Mobitz (type) II atrioventricular block: Status: Chronic (2) Presence of permanent cardiac pacemaker: Status: Chronic Comment: Asantae 08/02/2018 01/19/25 1802 Date Heather Severinoreginoyoanna Signature: Date (if applicable) CC: Normal [facility] Anion gap in Serum or Plasma Ordered By: Christie Guzman on 01-07-2025 Anion gap [Moles/Vol] 9 mmol/L 09-11 [facility] BUN/creatinine ratioOrdered By: Christie Guzman on 01-07-2025 Urea nitrogen/Creatinine [Mass ratio] 16.0 mg/mg 02-16 [facility] Basic Metabolic Profile (BMP )on 01-07-2025 BUN/CRE 16.0 RATIO Normal 02-16 [facility] Comment on above: Performed By: #### L [id number] #### [facility] [address] [place], [address] Calcium [Mass/Vol] 8.7 mg/dL Normal 7.6-11.0 [facility] Comment on above: Performed By: #### L [id number] #### [facility] [address] [facility] [place], [address] Chloride [Moles/Vol] 103 mmol/L Normal 98-108 [facility] Comment on above: Performed By: #### L [id number] #### [facility] [address] [place], [address] CO2 [Moles/Vol] 27.3 mmol/L Normal 21.0-32.0 [facility] Comment on above: Performed By: #### L [id number] #### [facility] [address] [place], [address] Creatinine [Mass/Vol] 1.74 mg/dL High 0.70-1.20 [facility] Comment on above: Performed By: #### L [id number] #### [facility] [address] [place], [address] GAP 9 Normal 5-15 [facility] Comment on above: Performed By: #### L [id number] #### [facility] [address] [place], [address] GFR/1.73 sq M.predicted among non-blacks MDRD (S/P/Bld) [Vol rate/Area] 28 mL/min/{1.73_m2} Low >60 [facility] Comment on above: Result Comment: mL/m in/1.73m2 CKD-EPI Creatinine Equation (2020) Performed By: #### L [id number] #### [facility] [address] [place], [address] Glucose [Mass/Vol] 74 mg/dL Normal 70-99 [facility] Comment on above: Performed By: #### L [id number] #### [facility] [address] [place], [address] Potassium [Moles/Vol] 4.7 mmol/L Normal 3.3-5.1 [facility] Comment on above: Performed By: #### L [id number] #### [facility] [address] [place], [address] Sodium [Moles/Vol] 139 mmol/L Normal 133-145 [facility] Comment on above: Performed By: #### L [id number] #### [facility] [address] [place], [place], [address] Urea nitrogen [Mass/Vol] 28 mg/dL High 4-19 [facility] Comment on above: Performed By: #### L [id number] #### [facility] [address] [place], [place], [address] Carbon dioxide, total [Moles /volume] in Central venous bloodOrdered By: Christie Guzman on 01-07-2025 CO2 [Moles/Vol] 27.3 mmol/L 21.0-32.0 [facility] Chloride assayOrdered By: Nohemy Guzman on 01-07-2025 Chloride [Moles/Vol] 103 mmol/L 98-108 [facility] Glomerular filtration rate ( GFR) estimation/1.73 sq m using serum, plasma, or whole bOrdered By: Christie Guzman on 01-07-2025 GFR/1.73 sq M.predicted among non-blacks MDRD (S/P/Bld) [Vol rate/Area] 28 mL/min/{1.73_m2} Low >60 [facility] Comment on above: mL/min/1.73m2 CKD-EP I Creatinine Equation (2020) Potassium measurement (mass/ volume)Ordered By: Christie Guzman on 01-07-2025 Potassium (Unsp spec) [Mass/Vol] 4.7 mmol/L 3.3-5.1 [facility] Serum creatinine measurement (mass/volume)Ordered By: Christie Guzman on 01-07-2025 Creatinine [Mass/Vol] 1.74 mg/dL High 0.70-1.20 [facility] Serum glucose measurement (m ass/volume)Ordered By: Christie Guzman on 01-07-2025 Glucose [Mass/Vol] 74 mg/dL 70-99 [facility] Serum or plasma calcium etta urement (mass/volume)Ordered By: Christie Guzman on 01-07-2025 Calcium [Mass/Vol] 8.7 mg/dL 7.6-11.0 [facility] Serum or plasma urea nitroge n measurement (mass/volume)Ordered By: Christie Guzman on 01-07-2025 Urea nitrogen [Mass/Vol] 28 mg/dL High 4-19 [facility] Sodium levelOrdered By: Mak mine Thomas on 01-07-2025 Sodium [Moles/Vol] 139 mmol/L 133-145 [facility] CNOVon 12-24-2024 CNOV Office Visit (FAMPWS ) DAYANA QUIÑONES ([id number]) 1940 F Date Time Provider Department 12/24/24 8:20 AM SILVIA HUNTER During your visit today, we recorded the following information about you: Temperature Pulse Respiration Blood pressure 96.8 degrees 67/minute 18/minute 118/64 Weight 64.6 kg Silvia Hunter APRN.BRANCH OFFICE MANAGER 12/24/2024 9:29 AM Signed 12/24/2024 Patient presents with: Cough: And nasal drainage x7 days Recording using [employer] software for draft documentation of the visit was discussed with the patient/authorized packaging sales representative; all questions welcomed and answered. Patient/authorized packaging sales representative agreed to proceed SUBJECTIVE: This is a 84 year old, accompanied by son, that is here today for Above Complaints. Cough and Rhinorrhea: - Dayana Quiñones has had a cough and rhinorrhea for 7 days. - Sputum production varies between clear and yellow. - Rhinorrhea is constant, with nasal discharge also varying between clear and yellow. - Dayana denies sinus pain or pressure. - Dayana denies fevers or chills. - Nocturnal symptoms absent; cough and rhinorrhea begin upon waking. - Dayana denies history of allergies. - Using Mucinex throat lozenges PRN. - Dayana denies sore throat. 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 Brumfield Benign hypertension 07/01/2015 BPPV (benign paroxysmal positional vertigo), unspecified laterality 04/11/2017 CKD (chronic kidney disease) stage 3, GFR 30-59 ml/min (HCC) Fibrocystic breast disease (FCBD) in female 07/01/2015 Gastroesophageal reflux disease 07/01/2015 Gastrointestinal bleed duodenal ulcer Herpes zoster keratoconjunctivitis 07/01/2015 Hyperlipidemia 2019 Ischemic cardiomyopathy Neutrophilia 12/22/2016 Normally functioning cardiac pacemaker present 11/01/2018 Paroxysmal atrial flutter (HCC) Presence of permanent cardiac pacemaker 2019 S/P CABG (coronary artery bypass graft) S/P MVR (mitral valve repair) Shingles 12/27/2014 ST elevation (STEMI) myocardial infarction involving left anterior descending coronary artery (HCC) 2019 ALLERGIES Morphine MEDICATIONS Current Outpatient Medications Medication Sig ferrous sulfate 325 mg (65 mg iron) tablet Take one tablet every other day amiodarone (PACERONE) 200 mg tablet Take 1 tablet by mouth every afternoon. furosemide (LASIX) 20 mg tablet Take one tablet daily apixaban (ELIQUIS) 5 mg tab(s) Take 1 tablet by mouth two times a day. acyclovir (ZOVIRAX) 800 mg tablet Take one tablet once a day erythromycin (ROMYCIN) 5 mg/gram (0.5 %) ophthalmic ointment Use 1 application in both eyes daily at bedtime. Cholecalciferol, Vitamin D3, 25 mcg (1,000 unit) cap Take 2 capsules by mouth once daily. pantoprazole DR (PROTONIX) 40 mg tablet Take 1 tablet by mouth two times a day. Vit A,C,Y-Ftho-Bpaogs (ICAPS AREDS) 4,296 mcg-226 mg-90 mg cap [...] allergies reviewed by this provider. SOCIAL HISTORY SOCIAL HISTORY[1] REVIEW OF SYSTEMS All other reviewed and negative other than HPI. OBJECTIVE: BP 118/64 Pulse 67 Temp 36 ?C (96.8 ?F) Resp 18 Wt 64.6 kg (142 lb 6.4 oz) SpO2 93% BMI 25.23 kg/m? . Vital signs reviewed by this provider. APPEARANCE Well appearing, alert, in no acute distress, well-hydrated, well nourished. EYES conjunctiva and sclera normal. EARS External ears normal, canals clear NOSE/SINUS Nares normal. Septum midline. Mucosa normal. No drainage or sinus tenderness. THROAT normal, no erythema NECK Supple, no adenopathy; thyroid symmetric, normal size, no bruits HEART RRR with normal S1 and S2, no murmurs, no gallops, no JVD appreciated LUNG clear to auscultation. No wheezes rhonchi or rales SKIN Skin color, texture, turgor normal, no suspicious rashes or lesions Depression Screening Never done Anxiety Screening Never done DTaP,Tdap,Td Vaccine(1 - Tdap) Never done RSV Vaccine(1 - 1-dose 75+ series) Never done Advance Directive Discussion Never done Medicare Advantage Annual Wellness Visit Never done Influenza Vaccine(1) due on 12/29/2024 Diabetes Screening due on 09/30/2026 Bone Density Screening Completed Pneumococcal Vaccine: 50+ Completed Shingrix Vaccine Discontinued 1. Acute cough (R05.1) 2. Postnasal drip (R09.82) - Cough with y (more content not included)... Normal [facility] XR CHEST 2V FRONTAL/LATon XR CHEST 2V FRONTAL/LAT * * *Final Repor t* * * DATE OF EXAM: Dec 24 2024 9:18AM WOX 5291 - XR CHEST 2V FRONTAL/LAT / PROCEDURE REASON: Acute cough * * * * Physician Interpretation * * * * EXAMINATION: CHEST RADIOGRAPH (2 VIEW FRONTAL and LATERAL) CLINICAL HISTORY: Acute cough MQ: XC2_6 EXAM DATE/TIME: 12/24/2024 9:18 AM COMPARISON: 05/10/2024 and 08/07/2023 chest x-rays RESULT: Lines, tubes, and devices: Cardiac leads unchanged in position. Sternotomy wires are seen. Lungs and pleura: * There are coarse lung markings throughout each lung similar to the previous study Cardiomediastinal silhouette: * Heart is again noted be mildly enlarged LEFT atrial appendage clip again noted Bones and soft tissues: Unremarkable. IMPRESSION: 1. No definite acute changes. 2. Coarse lung markings throughout each lung similar to previous 2 studies Value Advisor: PSCB Transcribe Date/Time: Dec 24 2024 9:19A Dictated by : AMARILIS HOBBS DO This examination was interpreted and the report reviewed and electronically signed by: AMARILIS HOBBS DO on Dec 24 2024 9:28AM EST [id number] Normal [facility] XR Chest PA and Lateralon IMPRESSION: 1. No definite acute changes. 2. Coarse lung markings throughout each lung similar to previous 2 studies Value Advisor: PSCB Transcribe Date/Time: Dec 24 2024 9:19A Dictated by : AMARILIS HOBBS DO This examination was interpreted and the report reviewed and electronically signed by: AMARILIS HOBBS DO on Dec 24 2024 9:28AM EST DIVISION OF RADIOLOGY * * *Final Report* * * DATE OF EXAM: Dec 24 2024 9:18AM WOX 5291 - XR CHEST 2V FRONTAL/LAT / PROCEDURE REASON: Acute cough * * * * Physician Interpretation * * * * EXAMINATION: CHEST RADIOGRAPH (2 VIEW FRONTAL & LATERAL) CLINICAL HISTORY: Acute cough MQ: XC2_6 EXAM DATE/TIME: 12/24/2024 9:18 AM COMPARISON: 05/10/2024 and 08/07/2023 chest x-rays RESULT: Lines, tubes, and devices: Cardiac leads unchanged in position. Sternotomy wires are seen. Lungs and pleura: * There are coarse lung markings throughout each lung similar to the previous study Cardiomediastinal silhouette: * Heart is again noted be mildly enlarged LEFT atrial appendage clip again noted Bones and soft tissues: Unremarkable. DIVISION OF RADIOLOGY Provider, [facility] - 12/24/2024 * * *Final Report* * * DATE OF EXAM: Dec 24 2024 9:18AM WOX 5291 - XR CHEST 2V FRONTAL/LAT / PROCEDURE REASON: Acute cough * * * * Physician Interpretation * * * * EXAMINATION: CHEST RADIOGRAPH (2 VIEW FRONTAL & LATERAL) CLINICAL HISTORY: Acute cough MQ: XC2_6 EXAM DATE/TIME: 12/24/2024 9:18 AM COMPARISON: 05/10/2024 and 08/07/2023 chest x-rays RESULT: Lines, tubes, and devices: Cardiac leads unchanged in position. Sternotomy wires are seen. Lungs and pleura: * There are coarse lung markings throughout each lung similar to the previous study Cardiomediastinal silhouette: * Heart is again noted be mildly enlarged LEFT atrial appendage clip again noted Bones and soft tissues: Unremarkable. IMPRESSION IMPRESSION: 1. No definite acute changes. 2. Coarse lung markings throughout each lung similar to previous 2 studies Value Advisor: DHIRAJ Transcribe Date/Time: Dec 24 2024 9:19A Dictated by : AMARILIS HOBBS DO This examination was interpreted and the report reviewed and electronically signed by: AMARILIS HOBBS DO on Dec 24 2024 9:28AM EST [facility] Radiology [facility]narrative[facility] Chest PA and LateralOrder ed By: [facility] Provider on 12-24-2024 [facility] Anion gap in Serum or Plasma Ordered By: Derek Brumfield on 12-04-2024 Anion gap [Moles/Vol] 9 mmol/L 5-15 [facility] BUN/creatinine ratioOrdered By: Derek Brumfield on 12-04-2024 Urea nitrogen/Creatinine [Mass ratio] 13.7 mg/mg - [facility] Basic Metabolic Profile (BMP )on 12-04-2024 BUN/CRE 13.7 RATIO Normal - [facility] Comment on above: Performed By: #### L 500.2500 #### [facility] [address] [place], [address] Calcium [Mass/Vol] 9.3 mg/dL Normal 7.6-11.0 [facility] Comment on above: Performed By: #### L 500.2500 #### [facility] [address] [place], [address] Chloride [Moles/Vol] 103 mmol/L Normal 98-108 [facility] Comment on above: Performed By: #### L 500.2500 #### [facility] [address] [place], [address] CO2 [Moles/Vol] 26.3 mmol/L Normal 21.0-32.0 [facility] Comment on above: Performed By: #### L 500.2500 #### [facility] [address] [place], [address] Creatinine [Mass/Vol] 1.94 mg/dL High 0.70-1.20 [facility] Comment on above: Performed By: #### L 500.2500 #### [facility] [address] [place], [address] GAP 9 Normal 5-15 [facility] Comment on above: Performed By: #### L 500.2500 #### [facility] [address] [place], [address] GFR/1.73 sq M.predicted among non-blacks MDRD (S/P/Bld) [Vol rate/Area] 25 mL/min/{1.73_m2} Low >60 [facility] Comment on above: Result Comment: mL/m in/1.73m2 CKD-EPI Creatinine Equation (2020) Performed By: #### L 500.2500 #### [facility] [address] [place], [address] Glucose [Mass/Vol] 70 mg/dL Normal 70-99 [facility] Comment on above: Performed By: #### L 500.2500 #### [facility] [address] [place], [address] Potassium [Moles/Vol] 4.3 mmol/L Normal 3.3-5.1 [facility] Comment on above: Performed By: #### L 500.2500 #### [facility] [address] [place], [address] Sodium [Moles/Vol] 139 mmol/L Normal 133-145 [facility] Comment on above: Performed By: #### L 500.2500 #### [facility] [address] [place], [place], [address] Urea nitrogen [Mass/Vol] 27 mg/dL High 4- [facility] Comment on above: Performed By: #### L 500.2500 #### [facility] [address] [place], [address] Carbon dioxide, total [Moles /volume] in Central venous bloodOrdered By: Derek Brumfield on 12-04-2024 CO2 [Moles/Vol] 26.3 mmol/L 21.0-32.0 [facility] Cardiology Visit Reporton Cardiology Visit Report [facility] [address] [place], [place] [address] OFFICE VISIT Date of Service: 12/04/24 MR#: [id number] Acct: [id number] Name: DAYANA QUIÑONES Rep #: [id number] : 1940 Provider: Dr. Derek Brumfield MD Age/Sex: 84/F Location: [facility] Status: Signed HPI HPI History of Present Illness Details: Dayana Quiñones is an 84-year-old female with a hx of coronary artery disease status post acute myocardial infarction in October 2018. She is accompanied by her 2 daughters. At that time, she was noted to have an anteroseptal myocardial infarction and underwent a drug-eluting stent to the LAD as well as the left circumflex artery. In November 2018, she underwent a drug-eluting stent to the right coronary artery. In 07/2018 she underwent a PPM second degree block. In April 2020, she presented with chest pain or shortness of breath and underwent a stress test which demonstrated anteroapical ischemia and she underwent a left heart catheterization which demonstrated preserved ejection fraction of 60%, patent stents in the ostial left circumflex 70% stenosis. Medical therapy was recommended. Echocardiogram done in May 2021 demonstrated an ejection fraction of 30%, repeat echocardiogram done in June of this year demonstrated an ejection fraction of 30%. She was started on Entresto and Farxiga and Eliquis for paroxysmal atrial fibrillation. In october she had presented to the office with concerns over increased SOB and fatigue. She did undergo a diagnostic heart cath , Distal left main coronary artery and patent stent in the circumflex artery and right coronary artery with reduced left ventricular systolic function estimated EF 30% with moderate mitral regurgitation. She was referred for possible bypass surgery and mitral valve repair. Patient underwent bypass x2 with an PEDRAZA to the LAD and SVG to the OM 1 on December 14, 2022, at that time she also underwent a mitral valve repair with a 28 ring, she had a left atrial appendage ligation with an atrial clip. She did require vasopressor to support several days postop. She was discharged home on postop day 16. Patient was admitted to [facility] on 03/16/2023 with worsening shortness of breath over several days. She was admitted for further evaluation. She did have an echocardiogram which demonstrated a decrease of her ejection fraction to 10 to 15% previously in October of this year it was 30%. She was treated with IV Lasix, this was switched over to oral Lasix. She was also started on spironolactone, SGLT2 inhibitor and a life vest. Patient did see EP at [facility]. She did stop her LifeVest. He did not feel that she would benefit from an ICD due to her small frame. Patient was admitted to [facility] on June 12, 2023 with an acute GI bleed. She did require transfusion. Patient was seen in the emergency room on 06/27/2023 with shortness of breath. Patient declined being admitted at that time to receive a transfusion. Her hemoglobin had remained around 7.7 which was similar to previous when she was discharged on June 17, 2023. She was started on iron. Patient was seen by primary care doctor on July 09, 2023. Patient was noted to have an elevated proBNP from primary care's office. Although she did not have any symptoms of acute congestive heart failure. He had asked us to follow-up with her in our office this week. Hemoglobin is now 8.5. BUN is 15, creatinine is 1.23. Chest x-ray demonstrated bilateral pulmonary vascular congestion. Her ferretin level was elevated so her iron was stopped. PCP increased her lasix to 40mg a day for 3 days. She is currently on 20 mg every day. One of her major complaints on this visit is also that she gets dizzy when she tries to move around. She denies chest, arm, jaw, or neck discomfort. She denies palpitations. She denies bilateral lower extremity edema. She denies claudication. She continues with shortness of breath with activity such as longer distances. She does not have to rest on account it. She denies shortness of breath at rest, orthopnea, or PND. She denies chronic cough. She denies significant, sudden weight gain. She states lightheadedness. She denies dizziness, near-syncope, or syncope. She denies blood in urine, blood in stool, or epistaxis. He denies fever with chills. She denies myalgia. She states worsening fatigue. Her exercise level has remained stable, but expressess concerns regarding balance issues. Intake Vital Signs 10/22/23 10:24 10/29/24 11:21 12/04/24 09:06 Height 5 ft 3 in 5 ft 2 in 5 ft 2 in Weight: 142 lb BMI 25.9 BP 111/66 Blood Pressure Location Rt brachial Position Sitting Respiration 16 Pulse 60 Pulse Source Monitor Intake Visit Reasons: 1 Y FU Property Insurance Claims Examiner Required: No Accompanied by: Daughter Is patie (more content not included)... Normal [facility] Chloride assayOrdered By: Betito Brumfield on 12-04-2024 Chloride [Moles/Vol] 103 mmol/L 98-108 [facility] Glomerular filtration rate ( GFR) estimation/1.73 sq m using serum, plasma, or whole bOrdered By: Derek Brumfield on 12-04-2024 GFR/1.73 sq M.predicted among non-blacks MDRD (S/P/Bld) [Vol rate/Area] 25 mL/min/{1.73_m2} Low >60 [facility] Comment on above: mL/min/1.73m2 CKD-EP I Creatinine Equation (2020) Potassium measurement (mass/ volume)Ordered By: Derek Brumfield on 12-04-2024 Potassium (Unsp spec) [Mass/Vol] 4.3 mmol/L 3.3-5.1 [facility] Serum creatinine measurement (mass/volume)Ordered By: Derek Burmfield on 12-04-2024 Creatinine [Mass/Vol] 1.94 mg/dL High 0.70-1.20 [facility] Serum glucose measurement (m ass/volume)Ordered By: Derek Brumfield on 12-04-2024 Glucose [Mass/Vol] 70 mg/dL 70-99 [facility] Serum or plasma calcium etta urement (mass/volume)Ordered By: Derek Pardoori on 12-04-2024 Calcium [Mass/Vol] 9.3 mg/dL 7.6-11.0 [facility] Serum or plasma urea nitroge n measurement (mass/volume)Ordered By: Derek Pardoori on 12-04-2024 Urea nitrogen [Mass/Vol] 27 mg/dL High 4-19 [facility] Sodium levelOrdered By: Saba Brumfield on 12-04-2024 Sodium [Moles/Vol] 139 mmol/L 133-145 [facility] CNOVon 12-01-2024 CNOV Office Visit (FAMPWS ) DAYANA QUIÑONES ([id number]) 1940 F Date Time Provider Department 12/01/24 7:20 AM SILVIA HUNTER During your visit today, we recorded the following information about you: Pulse Respiration Blood pressure Weight 59/minute 18/minute 108/66 65.3 kg Silvia Hunter APRN.CNP 12/01/2024 8:00 AM Signed 12/01/2024 Patient presents with: Follow Up: Dr. Brumfield wanted patient to be checked by PCP before seeing him. Recording using [employer] software for draft documentation of the visit was discussed with the patient/authorized packaging sales representative; all questions welcomed and answered. Patient/authorized packaging sales representative agreed to proceed SUBJECTIVE: This is a 84 year old, accompanied by son, that is here today for Above Complaints. Dyspnea: - Recent onset of dyspnea. - Recent CXR and blood work revealed pericardial effusion. - Lasix dosage increased to 40 mg, then decreased to 20 mg due to side effects. - Denies peripheral edema. Balance Issues: - Recent onset of balance issues. - Reports dizziness and lightheadedness. - no recent falls CHF: - Ejection fraction of 15% on last echocardiogram, approximately one year ago. - BNP levels elevated. - Pacemaker functioning appropriately. - Currently on Eliquis for AFib. - Mitral valve prolapse repair in 2022. - Taking iron supplements every other day. CKD: - Recent blood work showed progression from stage 3 to stage 4 CKD. - Farxiga discontinued on October 01 due to declining kidney function. - No discussions of dialysis at this time. 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 Brumfield Benign hypertension 07/01/2015 BPPV (benign paroxysmal positional vertigo), unspecified laterality 04/11/2017 CKD (chronic kidney disease) stage 3, GFR 30-59 ml/min ([facility]) Fibrocystic breast disease (FCBD) in female 07/01/2015 Gastroesophageal reflux disease 07/01/2015 Gastrointestinal bleed duodenal ulcer Herpes zoster keratoconjunctivitis 07/01/2015 Hyperlipidemia 2019 Ischemic cardiomyopathy Neutrophilia 12/22/2016 Normally functioning cardiac pacemaker present 11/01/2018 Paroxysmal atrial flutter (HCC) Presence of permanent cardiac pacemaker 2019 S/P CABG (coronary artery bypass graft) S/P MVR (mitral valve repair) Shingles 12/27/2014 ST elevation (STEMI) myocardial infarction involving left anterior descending coronary artery (HCC) 2019 ALLERGIES Morphine MEDICATIONS Current Outpatient Medications Medication Sig amiodarone (PACERONE) 200 mg tablet Take 1 tablet by mouth every afternoon. furosemide (LASIX) 20 mg tablet Take one tablet daily apixaban (ELIQUIS) 5 mg tab(s) Take 1 tablet by mouth two times a day. acyclovir (ZOVIRAX) 800 mg tablet Take one tablet once a day Cholecalciferol, Vitamin D3, 25 mcg (1,000 unit) cap Take 2 capsules by mouth once daily. spironolactone (ALDACTONE) 25 mg tablet Take 25 mg by mouth once daily. (Patient taking differently: Take 12.5 mg by mouth once daily.) pantoprazole DR (PROTONIX) 40 mg tablet Take 1 tablet by mouth two times a day. carvedilol (COREG) 3.125 mg tablet Take 3.125 mg by mouth two times a day with meals. Vit A,C,K-Bwrd-Fuxohr (ICAPS AREDS) 4,296 mcg-226 mg-90 mg cap Take 1 capsule by mouth once daily. timolol maleate (TIMOPTIC) 0.5 % ophthalmic solution Use 1 Drop in the left eye twice daily. betamethasone dipropionate (DIPROSONE) 0.05 % cream Apply to affected area twice daily as needed. atorvastatin (LIPITOR) 20 mg tablet Take 20 mg by mouth daily at bedtime. COMPOUNDED PRESCRIPTION 1 Drop. Every other day-left eye ferrous sulfate 325 mg (65 mg iron) tablet Take one tablet every other day erythromycin (ROMYCIN) 5 mg/gram (0.5 %) ophthalmic ointment Use 1 application in both eyes daily at bedtime. Difluprednate 0.05 % drop Use 1 Drop in the left eye as directed. Every other day. No current facility-administered medications for this visit. Medications and allergies reviewed by this provider. SOCIAL HISTORY Social History Tobacco Use Smoking status: Former Current packs/day: 0.00 Types: Cigarettes Quit date: 04/30/1967 Years since quittin.6 Smokeless tobacco: Never Vaping Use Vaping status: Never Used Substance Use Topics Alcohol use: No Drug use: Never REVIEW OF SYSTEMS All other reviewed and negative other than HPI. OBJECTIVE: BP 108/66 Pulse (!) 59 Resp 18 Wt 65.3 kg (144 lb) SpO2 94% BMI 25.51 kg/m? . Vital signs reviewed by this provider. GENERAL: NAD, alert and oriented. SKIN: Unremarkable, no rash or skin lesions to exposed skin EYES:conjunctiva clear. LUNGS: Clear to auscultation bilaterally, no wheezes/rhonchi/rales. HEART: Regular rate and rhythm, no murmurs. No ectopy. EXTREMITIES: Normal, no deformities, no skin d (more content not included)... Normal [facility] Absolute lymphocyte countOrd ered By: Kinga Eubanks on 11-21-2024 Lymphocytes Auto (Unsp spec) [#/Vol] 1.50 10*3/uL 0.83-4.51 [facility] Absolute neutrophil countOrd ered By: Kinga Eubanks on 11-21-2024 Neutrophils (Bld) [#/Vol] 8.2 10*3/uL High 2.0-7.7 [facility] Anion gap in Serum or Plasma Ordered By: Kinga Eubanks on 11-21-2024 Anion gap [Moles/Vol] 10 mmol/L 5-15 [facility] Automated lymphocyte count a s percentage of total leukocytesOrdered By: Kinga Eubanks on 11-21-2024 Lymphocytes/100 WBC Auto (Unsp spec) 13.4 % Low 19- [facility] BUN/creatinine ratioOrdered By: Kinga Eubanks on 11-21-2024 Urea nitrogen/Creatinine [Mass ratio] 15.4 mg/mg - [facility] Basic Metabolic Profile (BMP )on 11-21-2024 BUN/CRE 15.4 RATIO Normal - [facility] Comment on above: Performed By: #### L 500.2500 #### [facility] [address] [place], [address] Calcium [Mass/Vol] 9.4 mg/dL Normal 7.6-11.0 [facility] Comment on above: Performed By: #### L 500.2500 #### [facility] [address] [place], [address] Chloride [Moles/Vol] 104 mmol/L Normal 98-108 [facility] Comment on above: Performed By: #### L [id number] #### [facility] [address] [place], [address] CO2 [Moles/Vol] 25.1 mmol/L Normal 21.0-32.0 [facility] Comment on above: Performed By: #### L [id number] #### [facility] [address] [place], [address] Creatinine [Mass/Vol] 1.87 mg/dL High 0.70-1.20 [facility] Comment on above: Performed By: #### L 500.2500 #### [facility] [address] [place], [address] GAP 10 Normal -15 [facility] Comment on above: Performed By: #### L 500.2500 #### [facility] [address] [place], [address] GFR/1.73 sq M.predicted among non-blacks MDRD (S/P/Bld) [Vol rate/Area] 26 mL/min/{1.73_m2} Low >60 [facility] Comment on above: Result Comment: mL/m in/1.73m2 CKD-EPI Creatinine Equation (2020) Performed By: #### L 500.2500 #### [facility] [address] [place], [address] Glucose [Mass/Vol] 77 mg/dL Normal 70-99 [facility] Comment on above: Performed By: #### L 500.2500 #### [facility] [address] [place], [address] Potassium [Moles/Vol] 4.5 mmol/L Normal 3.3-5.1 [facility] Comment on above: Performed By: #### L [id number] #### [facility] [address] [place], [address] Sodium [Moles/Vol] 139 mmol/L Normal 133-145 [facility] Comment on above: Performed By: #### L [id number] #### [facility] [address] [place], [address] Urea nitrogen [Mass/Vol] 29 mg/dL High 4-19 [facility] Comment on above: Performed By: #### L 500.2500 #### [facility] [address] [place], [address] Basophil percentageOrdered B y: Kinga Eubanks on 11-21-2024 Basophils/100 WBC (Bld) 0.4 % 0-1 [facility] CBC W/Diff, Automatedon 10-29 Absolute Lymph 1.50 X10 3/uL Normal 0.83-4.51 [facility] Comment on above: Performed By: #### L [id number] #### [facility] [address] [place], [address] Absolute Neut 8.2 X10 3/uL High 2.0-7.7 [facility] Comment on above: Performed By: #### L 500.2500 #### [facility] [address] [place], [address] Basophils/100 WBC (Bld) 0.4 % Normal 0-1 [facility] Comment on above: Performed By: #### L 500.2500 #### [facility] [address] [place], [address] Eosinophils/100 WBC (Bld) 4.7 % Normal 0-5 [facility] Comment on above: Performed By: #### L 500.2500 #### [facility] [address] [place], [address] Erythrocyte distribution width (RBC) [Ratio] 13.6 % Normal 11.6-14.6 [facility] Comment on above: Performed By: #### L 500.2500 #### [facility] [address] [place], [address] Hematocrit (Bld) [Volume fraction] 38.6 % Normal 37-47 [facility] Comment on above: Performed By: #### L 500.2500 #### [facility] [address] [place], [address] Hemoglobin (Bld) [Mass/Vol] 12.2 g/dL Normal 12.0-15.0 [facility] Comment on above: Performed By: #### L 500.2500 #### [facility] [address] [place], [address] IG% 0.400 Normal 0.0-0.9 [facility] Comment on above: Result Comment: IG% - Immature Granulocytes (promyelocytes, myelocytes and metamyelocytes) > 1% indicates that a LEFT SHIFT is Present. Performed By: #### L 500.2500 #### [facility] [address] [place], [address] Lymphocytes/100 WBC (Bld) 13.4 % Low 19-41 [facility] Comment on above: Performed By: #### L 500.2500 #### [facility] [address] [place], [address] MCH (RBC) [Entitic mass] 31.9 pg Normal 27.0-32.0 [facility] Comment on above: Performed By: #### L 500.2500 #### [facility] [address] [place], [address] MCHC (RBC) [Mass/Vol] 31.6 g/dL Low 32-36 [facility] Comment on above: Performed By: #### L 500.2500 #### [facility] [address] [place], [address] MCV (RBC) [Entitic vol] 101.0 fL High 81-99 [facility] Comment on above: Performed By: #### L 500.2500 #### [facility] [address] [place], [address] Monocytes/100 WBC (Bld) 8.4 % Normal 0-10 [facility] Comment on above: Performed By: #### L 500.2500 #### [facility] [address] [place], [address] Neutrophils/100 WBC (Bld) 72.7 % High 47-70 [facility] Comment on above: Performed By: #### L 500.2500 #### [facility] [address] [place], [address] Nucleated RBC (Bld) [#/Vol] 0 10*3/uL Normal 0-5 [facility] Comment on above: Performed By: #### L 500.2500 #### [facility] [address] [place], [address] Platelet mean volume (Bld) [Entitic vol] 10.2 fL Normal 6.2-12.0 [facility] Comment on above: Performed By: #### L 500.2500 #### [facility] [address] [place], [address] Platelets (Bld) [#/Vol] 218 10*3/uL Normal 150-450 [facility] Comment on above: Performed By: #### L 500.2500 #### [facility] [address] [place], [address] RBC (Bld) [#/Vol] 3.82 10*6/uL Low 4.2-5.4 [facility] Comment on above: Performed By: #### L 500.2500 #### [facility] [address] [place], [address] RDW SD 50.4 fl High 35.1-43.9 [facility] Comment on above: Performed By: #### L 500.2500 #### [facility] [address] [place] [place], [address] WBC (Bld) [#/Vol] 11.2 10*3/uL High 4.4-11.0 [facility] Comment on above: Performed By: #### L 500.2500 #### [facility] [address] [place], [address] Carbon dioxide, total [Moles /volume] in Central venous bloodOrdered By: Kinga Eubanks on 11-21-2024 CO2 [Moles/Vol] 25.1 mmol/L 21.0-32.0 [facility] Chest PA and Lateralon 11-21 Chest PA and Lateral [facility] [address] [place] [address] Chest PA and Lateral MR#: [id number] Acct: [id number] Name: DAYANA QUIÑONES Rep #: [id number] : 1940 F 84 From: Ciera Johnson MD PCP: Dr. Luiz Avery MD Status: REG CLI Study: Chest PA and Lateral Date of Exam: 11/21/24 Exam# [id number] Ordering Dr: Kinga Eubanks PA EXAM: XR Chest, 2 Views CLINICAL INDICATION: SHORTNESS OF BREATH TECHNIQUE: Frontal and lateral views of the chest. COMPARISON: No relevant prior studies available. FINDINGS: LUNGS AND PLEURAL SPACES: See below. HEART: Cardiomegaly with mild congestion. MEDIASTINUM: Unremarkable. Normal mediastinal contour. BONES/JOINTS: Unremarkable. No acute fracture. TUBES, LINES AND DEVICES: Left-sided cardiac pacemaker. RAD/Chest PA and Lateral IMPRESSION: Cardiomegaly with mild congestion. Reading Location: [facility] CC: Dr. Luiz Avery MD; TY Joy Value Advisor: Signed Normal [facility] Chloride assayOrdered By: Karine Eubanks on 11-21-2024 Chloride [Moles/Vol] 104 mmol/L 98-108 [facility] Eosinophil percentageOrdered By: Kinga Eubanks on 11-21-2024 Eosinophils/100 WBC (Bld) 4.7 % 0-5 [facility] Erythrocyte distribution wid th ratioOrdered By: Kinga Eubanks on 11-21-2024 Erythrocyte distribution width (RBC) [Ratio] 13.6 % 11.6-14.6 [facility] Erythrocyte distribution wid th standard deviationOrdered By: Kinga Eubanks on 11-21-2024 Erythrocyte distribution width (RBC) [Ratio] 50.4 fl High 35.1-43.9 [facility] Glomerular filtration rate ( GFR) estimation/1.73 sq m using serum, plasma, or whole bOrdered By: Kinga Eubanks on 11-21-2024 GFR/1.73 sq M.predicted among non-blacks MDRD (S/P/Bld) [Vol rate/Area] 26 mL/min/{1.73_m2} Low >60 [facility] Comment on above: mL/min/1.73m2 CKD-EP I Creatinine Equation (2020) Hematocrit Auto (Bld) [Volum e fraction]Ordered By: Kinga Eubanks on 11-21-2024 Hematocrit (Bld) [Volume fraction] 38.6 % 37-47 [facility] Hemoglobin measurementOrdere d By: Kinga Eubanks on 11-21-2024 Hemoglobin (Bld) [Mass/Vol] 12.2 g/dL 12.0-15.0 [facility] Immature granulocytes/100 WB C Auto (Bld)Ordered By: Kinga Eubanks on 11-21-2024 Immature granulocytes/100 WBC (Bld) 0.400 % 0.0-0.9 [facility] Comment on above: IG% - Immature Granu locytes (promyelocytes, myelocytes and metamyelocytes) > 1% indicates that a LEFT SHIFT is Present. MCV (mean corpuscular volume ) determinationOrdered By: Kinga Eubanks on 11-21-2024 MCV (RBC) [Entitic vol] 101.0 fL High 81-99 [facility] Mean corpuscular hemoglobin (MCH) determinationOrdered By: Kinga Eubanks on 11-21-2024 MCH (RBC) [Entitic mass] 31.9 pg 27.0-32.0 [facility] Mean corpuscular hemoglobin concentration (MCHC) determinationOrdered By: Kinga Eubanks on 11-21-2024 MCHC (RBC) [Mass/Vol] 31.6 g/dL Low 32-36 [facility] Mean platelet volume determi nationOrdered By: Kinga Eubanks on 11-21-2024 Platelet mean volume (Bld) [Entitic vol] 10.2 fL 6.2-12.0 [facility] Monocyte percentageOrdered B y: Kinga Eubanks on 11-21-2024 Monocytes/100 WBC (Bld) 8.4 % 0-10 [facility] Natriuretic peptide.B prohor yesenia N-Terminal [Mass/volume] in Serum or PlasmaOrdered By: Kinga Eubanks on 11-21-2024 Natriuretic peptide.B prohormone N-Terminal [Mass/Vol] 2881 pg/mL High <1800 [facility] Comment on above: Heart Failure Unlike ly: < 300 pg/mLHeart Failure Likely< 50 Years: > 450 pg/mL50-75 Years: > 900 pg/mL>75 Years: > 1800 pg/mL Neutrophil percentageOrdered By: Kinga Eubanks on 11-21-2024 Neutrophils/100 WBC (Bld) 72.7 % High 47-70 [facility] Nucleated red blood cell per centageOrdered By: Kinga Eubanks on 11-21-2024 Nucleated RBC/100 WBC (Bld) [Ratio] 0 % 0-5 [facility] Platelet countOrdered By: Karine Eubanks on 11-21-2024 Platelets (Bld) [#/Vol] 218 10*3/uL 150-450 [facility] Potassium measurement (mass/ volume)Ordered By: Kinga Eubanks on 11-21-2024 Potassium (Unsp spec) [Mass/Vol] 4.5 mmol/L 3.3-5.1 [facility] Pro- Brain NATRIURETIC PEPTI Carlos 11-21-2024 Natriuretic peptide B (Bld) [Mass/Vol] 2881 pg/mL High <=1800 [facility] Comment on above: Result Comment: Hear t Failure Unlikely: < 300 pg/mL Heart Failure Likely < 50 Years: > 450 pg/mL 50-75 Years: > 900 pg/mL >75 Years: > 1800 pg/mL Performed By: #### L 500.2500 #### [facility] [address] [place], [address] RBC Auto (Bld) [#/Vol]Ordere d By: Kinga Eubanks on 11-21-2024 RBC (Bld) [#/Vol] 3.82 10*6/uL Low 4.2-5.4 [facility] Serum creatinine measurement (mass/volume)Ordered By: Kinga Eubanks on 11-21-2024 Creatinine [Mass/Vol] 1.87 mg/dL High 0.70-1.20 [facility] Serum glucose measurement (m ass/volume)Ordered By: Kinga Eubanks on 11-21-2024 Glucose [Mass/Vol] 77 mg/dL 70-99 [facility] Serum or plasma calcium etta urement (mass/volume)Ordered By: Kinga Eubanks on 11-21-2024 Calcium [Mass/Vol] 9.4 mg/dL 7.6-11.0 [facility] Serum or plasma urea nitroge n measurement (mass/volume)Ordered By: Kinga Eubanks on 11-21-2024 Urea nitrogen [Mass/Vol] 29 mg/dL High 4-19 [facility] Sodium levelOrdered By: Kevan mercado Cha on 11-21-2024 Sodium [Moles/Vol] 139 mmol/L 133-145 [facility] TSH DL <= 0.005 mIU/L QnOrde red By: Kinga Eubanks on 11-21-2024 TSH Qn 1.590 uIU/mL 0.300-4.200 [facility] Thyroid Stim Hormone (TSH)on 11-21-2024 TSH 1.590 uIU/mL Normal 0.300-4.200 [facility] Comment on above: Performed By: #### L 500.2500 #### [facility] [place], [address] White blood cell (WBC) count Ordered By: Kinga Eubanks on 11-21-2024 WBC (Bld) [#/Vol] 11.2 10*3/uL High 4.4-11.0 [facility] Absolute lymphocyte countOrd ered By: Rigoberto Morton on 11-04-2024 Lymphocytes Auto (Unsp spec) [#/Vol] 1.16 10*3/uL 0.83-4.51 [facility] Absolute neutrophil countOrd ered By: Rigoberto Morton on 11-04-2024 Neutrophils (Bld) [#/Vol] 8.0 10*3/uL High 2.0-7.7 [facility] Automated lymphocyte count a s percentage of total leukocytesOrdered By: Rigoberto Morton on 11-04-2024 Lymphocytes/100 WBC Auto (Unsp spec) 11.1 % Low 19-41 [facility] Basophil percentageOrdered B y: Rigoberto Morton on 11-04-2024 Basophils/100 WBC (Bld) 0.5 % 0-1 [facility] CBC W/Diff, Automatedon 07-0 8-2024 Absolute Lymph 1.16 X10 3/uL Normal 0.83-4.51 [facility] Comment on above: Performed By: #### L 503.6150, L503.6550, L100.0100, L504.2610, L100.9950 #### [facility] [address] [place], [address] Absolute Neut 8.0 X10 3/uL High 2.0-7.7 [facility] Comment on above: Performed By: #### L 503.6150, L503.6550, L100.0100, L504.2610, L100.9950 #### [facility] [address] [place], [address] Basophils/100 WBC (Bld) 0.5 % Normal 0-1 [facility] Comment on above: Performed By: #### L 503.6150, L503.6550, L100.0100, L504.2610, L100.9950 #### [facility] [address] [place], [address] Eosinophils/100 WBC (Bld) 4.6 % Normal 0-5 [facility] Comment on above: Performed By: #### L 503.6150, L503.6550, L100.0100, L504.2610, L100.9950 #### [facility] [address] [place], [address] Erythrocyte distribution width (RBC) [Ratio] 13.4 % Normal 11.6-14.6 [facility] Comment on above: Performed By: #### L 503.6150, L503.6550, L100.0100, L504.2610, L100.9950 #### [facility] [address] [place], [address] Hematocrit (Bld) [Volume fraction] 42.3 % Normal 37-47 [facility] Comment on above: Performed By: #### L 503.6150, L503.6550, L100.0100, L504.2610, L100.9950 #### [facility] [address] [place], [address] Hemoglobin (Bld) [Mass/Vol] 13.5 g/dL Normal 12.0-15.0 [facility] Comment on above: Performed By: #### L 503.6150, L503.6550, L100.0100, L504.2610, L100.9950 #### [facility] [address] [place], [address] IG% 0.400 Normal 0.0-0.9 [facility] Comment on above: Result Comment: IG% - Immature Granulocytes (promyelocytes, myelocytes and metamyelocytes) > 1% indicates that a LEFT SHIFT is Present. Performed By: #### L 503.6150, L503.6550, L100.0100, L504.2610, L100.9950 #### [facility] [address] [place], [address] Lymphocytes/100 WBC (Bld) 11.1 % Low 19-41 [facility] Comment on above: Performed By: #### L 503.6150, L503.6550, L100.0100, L504.2610, L100.9950 #### [facility] [address] [place], [address] MCH (RBC) [Entitic mass] 32.4 pg High 27.0-32.0 [facility] Comment on above: Performed By: #### L 503.6150, L503.6550, L100.0100, L504.2610, L100.9950 #### [facility] [address] [place], [address] MCHC (RBC) [Mass/Vol] 31.9 g/dL Low 32-36 [facility] Comment on above: Performed By: #### L 503.6150, L503.6550, L100.0100, L504.2610, L100.9950 #### [facility] [address] [place], [address] MCV (RBC) [Entitic vol] 101.4 fL High 81-99 [facility] Comment on above: Performed By: #### L 503.6150, L503.6550, L100.0100, L504.2610, L100.9950 #### [facility] [address] [place], [address] Monocytes/100 WBC (Bld) 6.9 % Normal 0-10 [facility] Comment on above: Performed By: #### L 503.6150, L503.6550, L100.0100, L504.2610, L100.9950 #### [facility] [address] [place], [address] Neutrophils/100 WBC (Bld) 76.5 % High 47-70 [facility] Comment on above: Performed By: #### L 503.6150, L503.6550, L100.0100, L504.2610, L100.9950 #### [facility] [address] [place], [address] Nucleated RBC (Bld) [#/Vol] 0 10*3/uL Normal 0-5 [facility] Comment on above: Performed By: #### L 503.6150, L503.6550, L100.0100, L504.2610, L100.9950 #### [facility] [address] [place], [address] Platelet mean volume (Bld) [Entitic vol] 10.1 fL Normal 6.2-12.0 [facility] Comment on above: Performed By: #### L 503.6150, L503.6550, L100.0100, L504.2610, L100.9950 #### [facility] [address] [place], [address] Platelets (Bld) [#/Vol] 238 10*3/uL Normal 150-450 [facility] Comment on above: Performed By: #### L 503.6150, L503.6550, L100.0100, L504.2610, L100.9950 #### [facility] [address] [place], [address] RBC (Bld) [#/Vol] 4.17 10*6/uL Low 4.2-5.4 [facility] Comment on above: Performed By: #### L 503.6150, L503.6550, L100.0100, L504.2610, L100.9950 #### [facility] [address] [place], [address] RDW SD 49.8 fl High 35.1-43.9 [facility] Comment on above: Performed By: #### L 503.6150, L503.6550, L100.0100, L504.2610, L100.9950 #### [facility] [address] [place], [address] WBC (Bld) [#/Vol] 10.5 10*3/uL Normal 4.4-11.0 [facility] Comment on above: Performed By: #### L 503.6150, L503.6550, L100.0100, L504.2610, L100.9950 #### [facility] [address] [place], [address] Eosinophil percentageOrdered By: Rigoberto Morton on 11-04-2024 Eosinophils/100 WBC (Bld) 4.6 % 0-5 [facility] Erythrocyte distribution wid th ratioOrdered By: Rigoberto Morton on 11-04-2024 Erythrocyte distribution width (RBC) [Ratio] 13.4 % 11.6-14.6 [facility] Erythrocyte distribution wid th standard deviationOrdered By: Rigoberto Friend on 11-04-2024 Erythrocyte distribution width (RBC) [Ratio] 49.8 fl High 35.1-43.9 [facility] Ferritinon 11-04-2024 Ferritin [Mass/Vol] 166 ng/mL Normal 22-378 [facility] Comment on above: Performed By: #### L 503.6150, L503.6550, L100.0100, L504.2610, L100.9950 #### [facility] [address] [place], [address] Gastroenterology Visit Repor ton 11-04-2024 Gastroenterology Visit Report [facility] [address] [place] [address] OFFICE VISIT Date of Service: 11/04/24 MR#: [id number] Acct: [id number] Name: DAYANA QUIÑONES SEBLE Rep #: [id number] : 1940 Provider: Rigoberto Morton DO Age/Sex: 84/F Location: [facility] [place] [facility] Status: Signed Intake Vital Signs 01/10/24 08:39 10/29/24 11:21 Height 5 ft 2 in 5 ft 2 in Intake Visit Reasons: 6 M FU Allergies morphine Allergy (Verified 10/29/24 11:25) Vomiting sacubitril (From Entresto) Adverse Reaction (Intermediate, Verified 10/29/24 11:25) Hypotension on lowest dose valsartan (From Entresto) Adverse Reaction (Intermediate, Verified 10/29/24 11:25) Hypotension on lowest dose Medications ???Medication ???Instructions ???Recorded ???Confirmed ???Type erythromycin 5 mg/gram (0.5 %) eye 1 applic LEFT EYE QHS EYE INFECT ION 12/08/16 11/04/24 History ointment acyclovir 800 mg tablet 800 mg PO DAILY SHINGLES 09/11/19 11/04/24 History difluprednate 0.05 % eye drops 1 drp ophthalmic (eye) QODAY 05/1311/04/24 History SWELLING/PAIN timolol maleate 0.5 % eye drops 1 drp ophthalmic (eye) BID GLAUCOM A 02/14/22 11/04/24 History propylene glycol 0.6 % eye drops 1 drp EACH EYE DAILY PRN DRY EYE 0 06/12/23 11/04/24 History (Lubricant Eye (propylene glycol)) vit C 250 mg-vit E 90 mg-zinc 40 1 tab PO BID EYE HEALTH 06/12/23 0 11/04/24 History mg-copper 1 qx-tlgkfk-wonikm capsule (PreserVision AREDS-2) amiodarone 200 mg tablet 200 mg PO DAILY #30 tabs 11/15/23 11/04/24 Rx Handicap #1 ea 01/10/24 11/04/24 Rx cholecalciferol (vitamin D3) 50 50 mcg PO QDAY 01/10/24 11/04/24 H istory mcg (2,000 unit) tablet apixaban 5 mg tablet (Eliquis) 5 mg PO BID #180 tabs 01/15/2412/22 Rx atorvastatin 20 mg tablet 20 mg PO QHS CHOLESTEROL #90 tabs 03/24/24 11/04/24 Rx carvedilol 3.125 mg tablet (Coreg) 3.125 mg PO BID HEART #180 tabs 05/19/24 11/04/24 Rx furosemide 20 mg tablet 10 mg (1/2 x 20 mg) PO DAILY #30 0 07/29/24 11/04/24 Rx tabs ferrous sulfate 325 mg (65 mg 325 mg PO Q OTHER DAY 10/01/2412/22 History iron) tablet pantoprazole 40 mg tablet,delayed 40 mg PO QDAY #90 tabs 10/01/24 0 11/04/24 Rx release spironolactone 25 mg tablet 12.5 mg PO DAILY 10/29/24 11/04/24 History Have you fallen in the past year?: No [facility] History Anemia GI bleed Medication induced coagulopathy Non-ischemic cardiomyopathy Chronic anemia HFrEF (heart failure with reduced ejection fraction) Anticoagulant long-term use Ischemic cardiomyopathy Anxiety History of ST elevation myocardial infarction (STEMI) (11/16/18) 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) Fractured sternum 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 alcohol intake: never substance use type: does not use caffeine: Yes Type: coffee Number of servings: 2 HPI HPI Details: DAYANA QUIÑONES, is a 84 F who presents to the office today for follow up. [facility] hospitalization 2.1324 -2.18.24 general weakness and anemia - symptoms began approximately 5 days prior to admission with very dark stools that turned the water red in the toilet. abd/pelvis CTA 2.14.24 Small bilateral pleural effusions with scarring at both lung bases. Large hiatal hernia. Small layering gallstones. Sigmoid diverticulosis without diverticulitis. EGD 2.16.24 Normal esophagus. Mild Schatzki ring. Medium-sized hiatal hernia. Three bleeding angiodysplastic lesions in the duodenum. Treated with a heater probe. No specimens collected. *BGI established 7.16.24 pt reports that she is feeling well overall and denies any bloody stool since hospital visit in May 2023. Pt states that as long as she takes her pantoprazole, she does not have any heartburn, will use TUMs as well if necessary. OV 1.20.25 pt reports that she is feeling well overall and denies GI symptoms of concern at this time. Pt would like to discuss stopping Pantoprazole. OV 7.8.25 pt reports that she is feeling well overall and denies GI symptoms of concern at (more content not included)... Normal [facility] Hematocrit Auto (Bld) [Volum e fraction]Ordered By: Rigoberto Morton on 11-04-2024 Hematocrit (Bld) [Volume fraction] 42.3 % 37-47 [facility] Hemoglobin measurementOrdere d By: Rigoberto Morton on 11-04-2024 Hemoglobin (Bld) [Mass/Vol] 13.5 g/dL 12.0-15.0 [facility] Immature granulocytes/100 WB C Auto (Bld)Ordered By: Rigoberto Morton on 11-04-2024 Immature granulocytes/100 WBC (Bld) 0.400 % 0.0-0.9 [facility] Comment on above: IG% - Immature Granu locytes (promyelocytes, myelocytes and metamyelocytes) > 1% indicates that a LEFT SHIFT is Present. Ironon 11-04-2024 Iron [Mass/Vol] 80 ug/dL Normal 50-170 [facility] Comment on above: Performed By: #### L 503.6150, L503.6550, L100.0100, L504.2610, L100.9950 #### [facility] [address] [place], [address] Iron measurement (mass/mass) Ordered By: Rigoberto Morton on 11-04-2024 Iron (Unsp spec) [Mass/Mass] 80 ug/dL 50-170 [facility] LDHon 11-04-2024 LDH 253 U/L High 84-246 [facility] Comment on above: Order Comment: 1 Performed By: #### L 500.2500 #### [facility] [address], [place], [id number] Lactate dehydrogenase (LDH) measurementOrdered By: Rigoberto Morton on 11-04-2024 LDH [Catalytic activity/Vol] 253 U/L High 84-246 [facility] MCV (mean corpuscular volume ) determinationOrdered By: Rigoberto Morton on 11-04-2024 MCV (RBC) [Entitic vol] 101.4 fL High 81-99 [facility] Mean corpuscular hemoglobin (MCH) determinationOrdered By: Rigoberto Morton on 11-04-2024 MCH (RBC) [Entitic mass] 32.4 pg High 27.0-32.0 [facility] Mean corpuscular hemoglobin concentration (MCHC) determinationOrdered By: Rigoberto Morton on 11-04-2024 MCHC (RBC) [Mass/Vol] 31.9 g/dL Low 32-36 [facility] Mean platelet volume determi nationOrdered By: Rigoberto Morton on 11-04-2024 Platelet mean volume (Bld) [Entitic vol] 10.1 fL 6.2-12.0 [facility] Monocyte percentageOrdered B y: Rigoberto Morton on 11-04-2024 Monocytes/100 WBC (Bld) 6.9 % 0-10 [facility] Neutrophil percentageOrdered By: Rigoberto Morton on 11-04-2024 Neutrophils/100 WBC (Bld) 76.5 % High 47-70 [facility] Nucleated red blood cell per centageOrdered By: Rigoberto Morton on 11-04-2024 Nucleated RBC/100 WBC (Bld) [Ratio] 0 % 0-5 [facility] Platelet countOrdered By: Ra jeanne Morton on 11-04-2024 Platelets (Bld) [#/Vol] 238 10*3/uL 150-450 [facility] RBC Auto (Bld) [#/Vol]Ordere d By: Rigoberto Morton on 11-04-2024 RBC (Bld) [#/Vol] 4.17 10*6/uL Low 4.2-5.4 [facility] Retic Panelon 11-04-2024 IM RET FRACTION 5.80 Normal 3.00-15.90 [facility] Comment on above: Performed By: #### L 503.6150, L503.6550, L100.0100, L504.2610, L100.9950 #### [facility] [address] [place], [place], [id number] RET-HE 35.4 pg High 30-35 [facility] Comment on above: Performed By: #### L 503.6150, L503.6550, L100.0100, L504.2610, L100.9950 #### [facility] [address] [place], [place], [id number] Retic Count 1.14 Normal 0.5-1.5 [facility] Comment on above: Performed By: #### L 503.6150, L503.6550, L100.0100, L504.2610, L100.9950 #### [facility] [address] [place], [place], [id number] Reticulocyte hemoglobin equi valent (RET-He) measurementOrdered By: Rigoberto Morton on 11-04-2024 Hemoglobin (Reticulocytes) [Entitic mass] 35.4 pg High 30-35 [facility] Reticulocytes Auto (Bld) [#/ Vol]Ordered By: Rigoberto Morton on 11-04-2024 Reticulocytes/100 RBC (Bld) 1.14 % 0.5-1.5 [facility] Serum or plasma ferritin phylicia surement (mass/volume)Ordered By: Rigoberto Morton on 11-04-2024 Ferritin [Mass/Vol] 166 ng/mL 22-378 [facility] White blood cell (WBC) count Ordered By: Rigoberto Morton on 11-04-2024 WBC (Bld) [#/Vol] 10.5 10*3/uL 4.4-11.0 [facility] Cardiology Visit Reporton Cardiology Visit Report [facility] [address] [place], [place] [address] OFFICE VISIT Date of Service: 10/29/24 MR#: [id number] Acct: [id number] Name: DAYANA QUIÑONES Rep #: [id number] : 1940 Provider: ALBER salas Age/Sex: 84/F Location: [facility] Status: Signed HPI HPI History of Present Illness Details: Dayana Quiñones is an 84-year-old female with a hx of coronary artery disease status post acute myocardial infarction in October 2018. At that time, she was noted to have an anteroseptal myocardial infarction and underwent a drug-eluting stent to the LAD as well as the left circumflex artery. In November 2018, she underwent a drug-eluting stent to the right coronary artery. In 07/2018 she underwent a PPM second degree block. In April 2020, she presented with chest pain or shortness of breath and underwent a stress test which demonstrated anteroapical ischemia and she underwent a left heart catheterization which demonstrated preserved ejection fraction of 60%, patent stents in the ostial left circumflex 70% stenosis. Medical therapy was recommended. Echocardiogram done in May 2021 demonstrated an ejection fraction of 30%, repeat echocardiogram done in June of this year demonstrated an ejection fraction of 30%. She was started on Entresto and Farxiga and Eliquis for paroxysmal atrial fibrillation. In october she had presented to the office with concerns over increased SOB and fatigue. She did undergo a diagnostic heart cath , Distal left main coronary artery and patent stent in the circumflex artery and right coronary artery with reduced left ventricular systolic function estimated EF 30% with moderate mitral regurgitation. She was referred for possible bypass surgery and mitral valve repair. Patient underwent bypass x2 with an PEDRAZA to the LAD and SVG to the OM 1 on December 14, 2022, at that time she also underwent a mitral valve repair with a 28 ring, she had a left atrial appendage ligation with an atrial clip. She did require vasopressor to support several days postop. She was discharged home on postop day 16. Patient was admitted to [facility] on 03/16/2023 with worsening shortness of breath over several days. She was admitted for further evaluation. She did have an echocardiogram which demonstrated a decrease of her ejection fraction to 10 to 15% previously in October of this year it was 30%. She was treated with IV Lasix, this was switched over to oral Lasix. She was also started on spironolactone, SGLT2 inhibitor and a life vest. Patient did see EP at [facility]. She did stop her LifeVest. He did not feel that she would benefit from an ICD due to her small frame. Patient was admitted to [facility] on June 12, 2023 with an acute GI bleed. She did require transfusion. Patient was seen in the emergency room on 06/27/2023 with shortness of breath. Patient declined being admitted at that time to receive a transfusion. Her hemoglobin had remained around 7.7 which was similar to previous when she was discharged on June 17, 2023. She was started on iron. Patient was seen by primary care doctor on July 09, 2023. Patient was noted to have an elevated proBNP from primary care's office. Although she did not have any symptoms of acute congestive heart failure. He had asked us to follow-up with her in our office this week. Hemoglobin is now 8.5. BUN is 15, creatinine is 1.23. Chest x-ray demonstrated bilateral pulmonary vascular congestion. Her ferretin level was elevated so her iron was stopped. PCP increased her lasix to 40mg a day for 3 days. She denies chest, arm, jaw, or neck discomfort. She denies palpitations. She denies bilateral lower extremity edema. She denies claudication. She continues with shortness of breath with activity such as longer distances. She does not have to rest on account it. She denies shortness of breath at rest, orthopnea, or PND. She denies chronic cough. She denies significant, sudden weight gain. She states lightheadedness. She denies dizziness, near-syncope, or syncope. She denies blood in urine, blood in stool, or epistaxis. He denies fever with chills. She denies myalgia. She states worsening fatigue. Her exercise level has remained stable, but expressess concerns regarding balance issues. Intake Vital Signs 10/01/24 08:29 10/29/24 11:21 Height 5 ft 2 in 5 ft 2 in Weight: 141 lb 143 lb BMI 25.7 26.2 BP 110/64 110/65 Blood Pressure Location Lt brachial Lt brachial Position Sitting Sitting Respiration 16 14 Pulse 60 60 Pulse Source NIBP NIBP Intake Visit Reasons: 4 WK FU Property Insurance Claims Examiner Required: No Accompanied by: Daughter Is patient in pain?: No Allergies morphine Allergy (Verified 10/29/24 11:25) Vomiting sacubitril (From Entresto) Adverse Reaction (Intermediate, Verified more content not included)... Normal [facility] Anion gap in Serum or Plasma Ordered By: Christie Guzman on 10-01-2024 Anion gap [Moles/Vol] 9 mmol/L 5-15 [facility] BUN/creatinine ratioOrdered By: Christie Guzman on 10-01-2024 Urea nitrogen/Creatinine [Mass ratio] 12.8 mg/mg 10-20 [facility] Carbon dioxide, total [Moles /volume] in Central venous bloodOrdered By: Christie Guzman on 10-01-2024 CO2 [Moles/Vol] 26.2 mmol/L 21.0-32.0 [facility] Cardiology Visit Reporton Cardiology Visit Report [facility] [address] [place] [address] OFFICE VISIT Date of Service: 10/01/24 MR#: [id number] Acct: [id number] Name: DAYANA QUIÑONES Rep #: [id number] : 1940 Provider: ALBER salas Age/Sex: 84/F Location: [facility] Status: Signed HPI HPI History of Present Illness Details: Dayana Quiñones is an 84-year-old female with a hx of coronary artery disease status post acute myocardial infarction in October 2018. At that time, she was noted to have an anteroseptal myocardial infarction and underwent a drug-eluting stent to the LAD as well as the left circumflex artery. In November 2018, she underwent a drug-eluting stent to the right coronary artery. In 07/2018 she underwent a PPM second degree block. In April 2020, she presented with chest pain or shortness of breath and underwent a stress test which demonstrated anteroapical ischemia and she underwent a left heart catheterization which demonstrated preserved ejection fraction of 60%, patent stents in the ostial left circumflex 70% stenosis. Medical therapy was recommended. Echocardiogram done in May 2021 demonstrated an ejection fraction of 30%, repeat echocardiogram done in June of this year demonstrated an ejection fraction of 30%. She was started on Entresto and Farxiga and Eliquis for paroxysmal atrial fibrillation. In october she had presented to the office with concerns over increased SOB and fatigue. She did undergo a diagnostic heart cath , Distal left main coronary artery and patent stent in the circumflex artery and right coronary artery with reduced left ventricular systolic function estimated EF 30% with moderate mitral regurgitation. She was referred for possible bypass surgery and mitral valve repair. Patient underwent bypass x2 with an PEDRAZA to the LAD and SVG to the OM 1 on December 14, 2022, at that time she also underwent a mitral valve repair with a 28 ring, she had a left atrial appendage ligation with an atrial clip. She did require vasopressor to support several days postop. She was discharged home on postop day 16. Patient was admitted to [facility] on 03/16/2023 with worsening shortness of breath over several days. She was admitted for further evaluation. She did have an echocardiogram which demonstrated a decrease of her ejection fraction to 10 to 15% previously in October of this year it was 30%. She was treated with IV Lasix, this was switched over to oral Lasix. She was also started on spironolactone, SGLT2 inhibitor and a life vest. Patient did see EP at [facility]. She did stop her LifeVest. He did not feel that she would benefit from an ICD due to her small frame. Patient was admitted to [facility] on June 12, 2023 with an acute GI bleed. She did require transfusion. Patient was seen in the emergency room on 06/27/2023 with shortness of breath. Patient declined being admitted at that time to receive a transfusion.. Her hemoglobin had remained around 7.7 which was similar to previous when she was discharged on June 17, 2023. She was started on iron. Patient was seen by primary care doctor on July 09, 2023. Patient was noted to have an elevated proBNP from primary care's office. Although she did not have any symptoms of acute congestive heart failure. He had asked us to follow-up with her in our office this week. Hemoglobin is now 8.5. BUN is 15, creatinine is 1.23. Chest x-ray demonstrated bilateral pulmonary vascular congestion. Her ferretin level was elevated so her iron was stopped. PCP increased her lasix to 40mg a day for 3 days. She denies chest, arm, jaw, or neck discomfort. She denies palpitations. She denies bilateral lower extremity edema. She denies claudication. She continues with shortness of breath with activity such as longer distances. She does not have to rest on account it. She denies shortness of breath at rest, orthopnea, or PND. She denies chronic cough. She denies significant, sudden weight gain. She states lightheadedness. She denies dizziness, near-syncope, or syncope. She denies blood in urine, blood in stool, or epistaxis. He denies fever with chills. She denies myalgia. She states worsening fatigue. Her exercise level has remained stable, but expressess concerns regarding balance issues. Intake Vital Signs 01/10/24 08:39 10/01/24 08:29 Height 5 ft 2 in 5 ft 2 in Weight: 141 lb BMI 25.7 BP 110/64 Blood Pressure Location Lt brachial Position Sitting Respiration 16 Pulse 60 Pulse Source NIBP Intake Visit Reasons: 6 M FU Property Insurance Claims Examiner Required: No Accompanied by: Daughter Is patient in pain?: No Allergies morphine Allergy (Verified 10/01/24 08:35) Vomiting sacubitril (From Entresto) Adverse Reaction (Intermediate, Verified 10/01/24 08:35) Hypotension on lowest dose valsartan (more content not included)... Normal [facility] Chloride assayOrdered By: Nohemy Guzman on 10-01-2024 Chloride [Moles/Vol] 106 mmol/L 98-108 [facility] Glomerular filtration rate ( GFR) estimation/1.73 sq m using serum, plasma, or whole bOrdered By: Christie Guzman on 10-01-2024 GFR/1.73 sq M.predicted among non-blacks MDRD (S/P/Bld) [Vol rate/Area] 28 mL/min/{1.73_m2} Low >60 [facility] Comment on above: mL/min/1.73m2 CKD-EP I Creatinine Equation (2020) Potassium measurement (mass/ volume)Ordered By: Christie Guzman on 10-01-2024 Potassium (Unsp spec) [Mass/Vol] 4.6 mmol/L 3.3-5.1 [facility] Renal Profileon 10-01-2024 Albumin [Mass/Vol] 4.0 g/dL Normal 3.4-4.8 [facility] Comment on above: Performed By: #### L [id number] #### [facility] [address] [place], [address] BUN/CRE 12.8 RATIO Normal 10-20 [facility] Comment on above: Performed By: #### L [id number] #### [facility] [address] [place], [place], [id number] Calcium [Mass/Vol] 9.4 mg/dL Normal 7.6-11.0 [facility] Comment on above: Performed By: #### [id number] #### [facility] [address] [place], [address] Chloride [Moles/Vol] 106 mmol/L Normal 98-108 [facility] Comment on above: Performed By: #### [id number] #### [facility] [address] [place], [address] CO2 [Moles/Vol] 26.2 mmol/L Normal 21.0-32.0 [facility] Comment on above: Performed By: #### [id number] #### [facility] [address] [place], [address] Creatinine [Mass/Vol] 1.75 mg/dL High 0.70-1.20 [facility] Comment on above: Performed By: #### [id number] #### [facility] [address] [place], [address] GAP 9 Normal 5-15 [facility] Comment on above: Performed By: #### L [id number] #### [facility] [address] [place], [address] GFR/1.73 sq M.predicted among non-blacks MDRD (S/P/Bld) [Vol rate/Area] 28 mL/min/{1.73_m2} Low >60 [facility] Comment on above: Result Comment: mL/m in/1.73m2 CKD-EPI Creatinine Equation (2020) Performed By: #### L [id number] #### [facility] [address] [place], [address] Glucose [Mass/Vol] 63 mg/dL Low 70-99 [facility] Comment on above: Performed By: #### L [id number] #### [facility] [address] [place], [address] Phosphate [Mass/Vol] 2.9 mg/dL Normal 2.7-4.5 [facility] Comment on above: Performed By: #### [id number] #### [facility] [address] [place], [address] Potassium [Moles/Vol] 4.6 mmol/L Normal 3.3-5.1 [facility] Comment on above: Performed By: #### [id number] #### [facility] [address] [place], [address] Sodium [Moles/Vol] 141 mmol/L Normal 133-145 [facility] Comment on above: Performed By: #### [id number] #### [facility] [address] [place], [address] Urea nitrogen [Mass/Vol] 22 mg/dL High 4-19 [facility] Comment on above: Performed By: #### L [id number] #### [facility] [address] [place], [address] Serum creatinine measurement (mass/volume)Ordered By: Christie Guzman on 10-01-2024 Creatinine [Mass/Vol] 1.75 mg/dL High 0.70-1.20 [facility] Serum glucose measurement (m ass/volume)Ordered By: Christie Guzman on 10-01-2024 Glucose [Mass/Vol] 63 mg/dL Low 70-99 [facility] Serum or plasma albumin etta urement (mass/volume)Ordered By: Christie Guzman on 10-01-2024 Albumin [Mass/Vol] 4.0 g/dL 3.4-4.8 [facility] Serum or plasma calcium etta urement (mass/volume)Ordered By: Christie Guzman on 10-01-2024 Calcium [Mass/Vol] 9.4 mg/dL 7.6-11.0 [facility] Serum or plasma urea nitroge n measurement (mass/volume)Ordered By: Christie Guzman on 06-04-2025 Urea nitrogen [Mass/Vol] 22 mg/dL High - [facility] Sodium levelOrdered By: Mak Guzman on 10-01-2024 Sodium [Moles/Vol] 141 mmol/L 133-145 [facility] Anion gap in Serum or Plasma Ordered By: Kinga Eubanks on 07-30-2024 Anion gap [Moles/Vol] 10 mmol/L - [facility] BUN/creatinine ratioOrdered By: Kinga Eubanks on 07-30-2024 Urea nitrogen/Creatinine [Mass ratio] 14.7 mg/mg - [facility] Basic Metabolic Profile (BMP )on 07-30-2024 BUN/CRE 14.7 RATIO Normal - [facility] Comment on above: Performed By: #### L [id number] #### [facility] [address] [place], [address] Calcium [Mass/Vol] 9.1 mg/dL Normal 7.6-11.0 [facility] Comment on above: Performed By: #### [id number] #### [facility] [address] [place], [address] Chloride [Moles/Vol] 107 mmol/L Normal 98-108 [facility] Comment on above: Performed By: #### [id number] #### [facility] [address] [place], [address] CO2 [Moles/Vol] 22.5 mmol/L Normal 21.0-32.0 [facility] Comment on above: Performed By: #### [id number] #### [facility] [address] [place], [address] Creatinine [Mass/Vol] 1.75 mg/dL High 0.70-1.20 [facility] Comment on above: Performed By: #### [id number] #### [facility] [address] [place], [address] GAP 10 Normal - [facility] Comment on above: Performed By: #### L [id number] #### [facility] [address] [place], [address] GFR/1.73 sq M.predicted among non-blacks MDRD (S/P/Bld) [Vol rate/Area] 28 mL/min/{1.73_m2} Low >60 [facility] Comment on above: Result Comment: mL/m in/1.73m2 CKD-EPI Creatinine Equation (2020) Performed By: #### L [id number] #### [facility] [address] [place], [address] Glucose [Mass/Vol] 115 mg/dL High 70-99 [facility] Comment on above: Performed By: #### L [id number] #### [facility] [address] [place], [address] Potassium [Moles/Vol] 4.2 mmol/L Normal 3.3-5.1 [facility] Comment on above: Performed By: #### [id number] #### [facility] [address] [place], [address] Sodium [Moles/Vol] 139 mmol/L Normal 133-145 [facility] Comment on above: Performed By: #### [id number] #### [facility] [address] [place], [address] Urea nitrogen [Mass/Vol] 26 mg/dL High 4-19 [facility] Comment on above: Performed By: #### L [id number] #### [facility] [address] [place], [address] Carbon dioxide, total [Moles /volume] in Central venous bloodOrdered By: Kinga Eubanks on 07-30-2024 CO2 [Moles/Vol] 22.5 mmol/L 21.0-32.0 [facility] Chloride assayOrdered By: Karine Eubanks on 07-30-2024 Chloride [Moles/Vol] 107 mmol/L 98-108 [facility] GFR/1.73 sq M.predicted jessie g non-blacks MDRD (S/P/Bld) [Vol rate/Area]Ordered By: Kinga Eubanks on 07-30-2024 Estimated GFR (MDRD) Non-Af Amer 28 Low >60 [facility] Comment on above: mL/min/1.73m2 CKD-EP I Creatinine Equation (2020) Glomerular filtration rate ( GFR) estimation/1.73 sq m using serum, plasma, or whole bOrdered By: Kinga Eubanks on 07-30-2024 GFR/1.73 sq M.predicted among non-blacks MDRD (S/P/Bld) [Vol rate/Area] 28 mL/min/{1.73_m2} Low >60 [facility] Comment on above: mL/min/1.73m2 CKD-EP I Creatinine Equation (2020) Potassium (Unsp spec) [Mass/ Vol]Ordered By: Kinga Eubanks on 07-30-2024 Potassium [Moles/Vol] 4.2 mmol/L 3.3-5.1 [facility] Potassium measurement (mass/ volume)Ordered By: Kinga Eubanks on 07-30-2024 Potassium (Unsp spec) [Mass/Vol] 4.2 mmol/L 3.3-5.1 [facility] Serum creatinine measurement (mass/volume)Ordered By: Kinga Eubanks on 07-30-2024 Creatinine [Mass/Vol] 1.75 mg/dL High 0.70-1.20 [facility] Serum glucose measurement (m ass/volume)Ordered By: Kinga Eubanks on 07-30-2024 Glucose [Mass/Vol] 115 mg/dL High 70-99 [facility] Serum or plasma calcium etta urement (mass/volume)Ordered By: Kinga Eubanks on 07-30-2024 Calcium [Mass/Vol] 9.1 mg/dL 7.6-11.0 [facility] Serum or plasma urea nitroge n measurement (mass/volume)Ordered By: Kinga Eubanks on 07-30-2024 Urea nitrogen [Mass/Vol] 26 mg/dL High 4-19 [facility] Sodium levelOrdered By: Kevan rogeliochevy Eubanks on 07-30-2024 Sodium [Moles/Vol] 139 mmol/L 133-145 [facility] CNOVon 07-04-2024 CNOV Office Visit (FAMPWS ) DAYANA QUIÑONES ([id number]) 1940 F Date Time Provider Department 07/04/24 8:20 AM SILVIA HUNTER During your visit today, we recorded the following information about you: Pulse Respiration Blood pressure Weight 60/minute 18/minute 102/66 63.1 kg Silvia Hunter APRN.[employer] OFF[employer] MANAGER 07/04/2024 8:59 AM Signed 07/02/2024 Patient presents with: F/U 6 months SUBJECTIVE: This is a 84 year old, accompanied by son, that is here today for Above Complaints. Since last visit has been in good health without ER visits or hospitalizations HTN: Patient is compliant with meds Yes Monitors bp at home: Yes. Denies side effects: Yes. Chest pain: No. Dyspnea: No. Edema: No. Palpitations: No. Syncope: No. Headache: No. Dizziness: No. HYPERLIPIDEMIA: Patient is taking medications: Yes. Patient is watching diet: Yes. Patient denies myalgias: Yes. Patient denies gi upset: Yes CKD: Follows with Dr. Guzman, pyroglazer with last office visit last . No changes to current regime. Eats low salt diet and avoids NSAID products. GERD: taking pantoprazole as prescribed without side effects. Works to control symptoms CAD/CHF/Heart block: Follows with [facility] cardiology with last appointment three months ago per patient. Was supposed to see them this month but appointment was canceled and rescheduled for September. Patient reports they decreased her Lasix from 40 mg to 20 mg due to she felt dizzy. Per patient feels improved. 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 Brumfield Benign hypertension 07/01/2015 BPPV (benign paroxysmal positional vertigo), unspecified laterality 04/11/2017 CKD (chronic kidney disease) stage 3, GFR 30-59 ml/min ([facility]) Fibrocystic breast disease (FCBD) in female 07/01/2015 Gastroesophageal reflux disease 07/01/2015 Gastrointestinal bleed duodenal ulcer Herpes zoster keratoconjunctivitis 07/01/2015 Hyperlipidemia 2019 Ischemic cardiomyopathy Neutrophilia 12/22/2016 Normally functioning cardiac pacemaker present 11/01/2018 Paroxysmal atrial flutter (HCC) Presence of permanent cardiac pacemaker 2019 S/P CABG (coronary artery bypass graft) S/P MVR (mitral valve repair) Shingles 12/27/2014 ST elevation (STEMI) myocardial infarction involving left anterior descending coronary artery ([facility]) 2018 ALLERGIES Morphine MEDICATIONS Current Outpatient Medications Medication Sig amiodarone (PACERONE) 200 mg tablet Take 1 tablet by mouth every afternoon. ferrous sulfate 325 mg (65 mg iron) tablet Take one tablet every other day furosemide (LASIX) 20 mg tablet Take one tablet daily apixaban (ELIQUIS) 5 mg tab(s) Take 1 tablet by mouth two times a day. acyclovir (ZOVIRAX) 800 mg tablet Take one tablet once a day erythromycin (ROMYCIN) 5 mg/gram (0.5 %) ophthalmic ointment Use 1 application in both eyes daily at bedtime. Cholecalciferol, Vitamin D3, 25 mcg (1,000 unit) cap Take 2 capsules by mouth once daily. spironolactone (ALDACTONE) 25 mg tablet Take 25 mg by mouth once daily. pantoprazole DR (PROTONIX) 40 mg tablet Take 1 tablet by mouth two times a day. carvedilol (COREG) 3.125 mg tablet Take 3.125 mg by mouth two times a day with meals. Vit A,C,E-Gpsx-Mumkuz (ICAPS AREDS) 4,296 mcg-226 mg-90 mg cap Take 1 capsule by mouth once daily. dapagliflozin propanediol (FARXIGA) 10 mg tablet Take 10 mg by mouth daily with breakfast. timolol maleate (TIMOPTIC) 0.5 % ophthalmic solution [...] Social History Tobacco Use Smoking status: Former Current packs/day: 0.00 Types: Cigarettes Quit date: 04/30/1967 Years since quittin.2 Smokeless tobacco: Never Vaping Use Vaping status: Never Used Substance Use Topics Alcohol use: No Drug use: Never REVIEW OF SYSTEMS All other reviewed and negative other than HPI. OBJECTIVE: BP 102/66 Pulse 60 Resp 18 Wt 63.1 kg (139 lb 3.2 oz) SpO2 98% BMI 24.66 kg/m? . Vital signs reviewed by this provider. APPEARANCE Well appearing, alert, in no acute distress, well-hydrated, well nourished. EYES conjunctiva and sclera normal. HEART RRR with normal S1 and S2, no murmurs, no gallops, no JVD appreciated LUNG clear to auscultation. No wheezes, rhonchi or rales EXTREMITIES Extremities normal, No deformities, No skin discoloration, and No e (more content not included)... Normal [facility] BUN/creatinine ratioOrdered By: Christie Guzman on 06-26-2024 Urea nitrogen/Creatinine [Mass ratio] 19.9 mg/mg 10- [facility] Basic Metabolic Profile (BMP )on 06-26-2024 Anion gap [Moles/Vol] 9 mmol/L Normal 5-15 [facility] Comment on above: Performed By: #### L [id number] #### [facility] [address] [place], [address] BUN/CRE 19.9 RATIO Normal - [facility] Comment on above: Performed By: #### L [id number] #### [facility] [address] [place], [address] Calcium [Mass/Vol] 9.9 mg/dL Normal 7.6-11.0 [facility] Comment on above: Performed By: #### L [id number] #### [facility] [address] [place], [address] Chloride [Moles/Vol] 105 mmol/L Normal 96-108 [facility] Comment on above: Performed By: #### L [id number] #### [facility] [address] [place], [address] CO2 [Moles/Vol] 26.1 mmol/L Normal 22.0-29.0 [facility] Comment on above: Performed By: #### [id number] #### [facility] [address] [place], [address] Creatinine [Mass/Vol] 1.6 mg/dL High 0.6-1.0 [facility] Comment on above: Performed By: #### L [id number] #### [facility] [address] [place], [address] GFR/1.73 sq M.predicted among non-blacks MDRD (S/P/Bld) [Vol rate/Area] 30 mL/min/{1.73_m2} Low >60 [facility] Comment on above: Result Comment: mL/m in/1.73m2 CKD-EPI Creatinine Equation (2020) Performed By: #### L [id number] #### [facility] [address] [place], [address] Glucose [Mass/Vol] 95 mg/dL Normal 70-99 [facility] Comment on above: Performed By: #### L [id number] #### [facility] [address] [place], [address] Potassium [Moles/Vol] 4.5 mmol/L Normal 3.3-5.1 [facility] Comment on above: Result Comment: Hemo lysis present, Results??could be affected. ?? Performed By: #### L [id number] #### [facility] [address] [place], [place], [address] Sodium [Moles/Vol] 140 mmol/L Normal 133-145 [facility] Comment on above: Performed By: #### [id number] #### [facility] [address] [place], [place], [address] Urea nitrogen [Mass/Vol] 33 mg/dL High 4-19 [facility] Comment on above: Performed By: #### L [id number] #### [facility] [address] [place], [place], [id number] Carbon dioxide measurementOr dered By: Christie Guzman on 06-26-2024 CO2 [Moles/Vol] 26.1 mmol/L 22.0-29.0 [facility] Chloride measurementOrdered By: Christie Guzman on 06-26-2024 Chloride [Moles/Vol] 105 mmol/L 96-108 [facility] Creatinine [Moles/Vol]Ordere d By: Christie Guzman on 06-26-2024 Creatinine [Mass/Vol] 1.6 mg/dL High 0.6-1.0 [facility] GFR/1.73 sq M.predicted jessie g non-blacks MDRD (S/P/Bld) [Vol rate/Area]Ordered By: Christie Guzman on 06-26-2024 Estimated GFR (MDRD) Non-Af Amer 30 Low >60 [facility] Comment on above: mL/min/1.73m2 CKD-EP I Creatinine Equation (2020) Glomerular filtration rate ( GFR) estimation/1.73 sq m using serum, plasma, or whole bOrdered By: Christie Guzman on 06-26-2024 GFR/1.73 sq M.predicted among non-blacks MDRD (S/P/Bld) [Vol rate/Area] 30 mL/min/{1.73_m2} Low >60 [facility] Comment on above: mL/min/1.73m2 CKD-EP I Creatinine Equation (2020) Serum glucose measurement (m ass/volume)Ordered By: Christie Guzman on 06-26-2024 Glucose [Mass/Vol] 95 mg/dL 70-99 [facility] Serum or plasma anion gap de termination (moles/volume)Ordered By: Christie Guzman on 06-26-2024 Anion gap [Moles/Vol] 9 mmol/L 5-15 [facility] Serum or plasma calcium etta urement (mass/volume)Ordered By: Christie Guzman on 06-26-2024 Calcium [Mass/Vol] 9.9 mg/dL 7.6-11.0 [facility] Serum or plasma creatinine m easurement (moles/volume)Ordered By: Christie Guzman on 06-26-2024 Creatinine [Moles/Vol] 1.6 mg/dL High 0.6-1.0 [facility] Serum or plasma potassium me asurementOrdered By: Christie Guzman on 06-26-2024 Potassium [Moles/Vol] 4.5 mmol/L 3.3-5.1 [facility] Comment on above: Hemolysis present, R esults could be affected. Serum or plasma sodium measu rement (moles/volume)Ordered By: Christie Guzman on 06-26-2024 Sodium [Moles/Vol] 140 mmol/L 133-145 [facility] Serum or plasma urea nitroge n measurement (mass/volume)Ordered By: Christie uGzman on 06-26-2024 Urea nitrogen [Mass/Vol] 33 mg/dL High 4-19 [facility] Blood urea nitrogen (BUN)/cr eatinine ratioOrdered By: Christie Guzman on 06-21-2024 Urea nitrogen/Creatinine [Mass ratio] 16.2 mg/mg 10-20 [facility] CBC-Complete Blood Cnt No Di ffon 06-21-2024 Erythrocyte distribution width (RBC) [Ratio] 13.5 % Normal 11.6-14.6 [facility] Comment on above: Performed By: #### L [id number], L100.0500 #### [facility] [address] [place], [place], [id number] Hematocrit (Bld) [Volume fraction] 40.7 % Normal 37-47 [facility] Comment on above: Performed By: #### L [id number], L100.0500 #### [facility] [address] [place], [address] Hemoglobin (Bld) [Mass/Vol] 13.2 g/dL Normal 12.0-15.0 [facility] Comment on above: Performed By: #### L [id number], L100.0500 #### [facility] [address] [place], [address] MCH (RBC) [Entitic mass] 32.9 pg High 27.0-32.0 [facility] Comment on above: Performed By: #### L [id number], L100.0500 #### [facility] [address] [place], [address] MCHC (RBC) [Mass/Vol] 32.4 g/dL Normal 32-36 [facility] Comment on above: Performed By: #### L [id number], L100.0500 #### [facility] [address] [place], [address] MCV (RBC) [Entitic vol] 101.5 fL High 81-99 [facility] Comment on above: Performed By: #### L [id number], L100.0500 #### [facility] [address] [place], [address] Platelet mean volume (Bld) [Entitic vol] 9.6 fL Normal 6.2-12.0 [facility] Comment on above: Performed By: #### L [id number], L100.0500 #### [facility] [address] [place], [address] Platelets (Bld) [#/Vol] 219 10*3/uL Normal 150-450 [facility] Comment on above: Performed By: #### L [id number], L100.0500 #### [facility] [address] [place], [address] RBC (Bld) [#/Vol] 4.01 10*6/uL Low 4.2-5.4 [facility] Comment on above: Performed By: #### L [id number], L100.0500 #### [facility] [address] [place], [address] RDW SD 50.5 fl High 35.1-43.9 [facility] Comment on above: Performed By: #### L [id number], L100.0500 #### [facility] [address] [place], [address] WBC (Bld) [#/Vol] 8.9 10*3/uL Normal 4.4-11.0 [facility] Comment on above: Performed By: #### L [id number], L100.0500 #### [facility] [address] [place], [address] Carbon dioxide measurementOr dered By: Christie Guzman on 06-21-2024 CO2 [Moles/Vol] 30.0 mmol/L 21.0-32.0 [facility] Chloride measurementOrdered By: Christie Guzman on 06-21-2024 Chloride [Moles/Vol] 106 mmol/L 98-107 [facility] Erythrocyte distribution wid th ratioOrdered By: Christie Guzman on 06-21-2024 Erythrocyte distribution width (RBC) [Ratio] 13.5 % 11.6-14.6 [facility] Erythrocyte distribution wid th standard deviationOrdered By: Christie Guzman on 06-21-2024 Erythrocyte distribution width (RBC) [Entitic vol] 50.5 fL High 35.1-43.9 [facility] Erythrocyte distribution width (RBC) [Ratio] 50.5 fl High 35.1-43.9 [facility] Estimated glomerular filtrat ion rate (GFR) AmericanOrdered By: Christie Guzman on 06-21-2024 Estimated GFR (MDRD) Amer 31 mL/min Low >60 [facility] Comment on above: GFR Calc Glomerular filtration rate ( GFR) estimationOrdered By: Christie Guzman on 06-21-2024 Estimated GFR (MDRD) Non-Af Amer 26 mL/min Low >60 [facility] Comment on above: Non- GFR Calc GFR/1.73 sq M.predicted among non-blacks MDRD (S/P/Bld) [Vol rate/Area] 26 mL/min/{1.73_m2} Low >60 [facility] Comment on above: Non- GFR Calc Glucose measurementOrdered B y: Christie Guzman on 06-21-2024 Glucose [Mass/Vol] 72 mg/dL Low 74-106 [facility] Hematocrit Auto (Bld) [Volum e fraction]Ordered By: Christie Guzman on 06-21-2024 Hematocrit (Bld) [Volume fraction] 40.7 % 37-47 [facility] Hemoglobin measurementOrdere d By: Christie Guzman on 06-21-2024 Hemoglobin (Bld) [Mass/Vol] 13.2 g/dL 12.0-15.0 [facility] MCV (mean corpuscular volume ) determinationOrdered By: Christie Guzman on 06-21-2024 MCV (RBC) [Entitic vol] 101.5 fL High 81-99 [facility] Mean corpuscular hemoglobin (MCH) determinationOrdered By: Christie Guzman on 06-21-2024 MCH (RBC) [Entitic mass] 32.9 pg High 27.0-32.0 [facility] Mean corpuscular hemoglobin concentration (MCHC) determinationOrdered By: Christie Guzman on 06-21-2024 MCHC (RBC) [Mass/Vol] 32.4 g/dL 32-36 [facility] Mean platelet volume determi nationOrdered By: Christie Guzman on 06-21-2024 Platelet mean volume (Bld) [Entitic vol] 9.6 fL 6.2-12.0 [facility] Phosphorus measurementOrdere d By: Christie Guzman on 06-21-2024 Phosphorus Level 3.9 mg/dL 2.5-4.9 [facility] Platelet countOrdered By: Nohemy Guzman on 06-21-2024 Platelets (Bld) [#/Vol] 219 10*3/uL 150-450 [facility] Potassium measurementOrdered By: Christie Guzman on 06-21-2024 Potassium [Moles/Vol] 4.3 mmol/L 3.5-5.1 [facility] RBC Auto (Bld) [#/Vol]Ordere d By: Christie Thomas on 06-21-2024 RBC (Bld) [#/Vol] 4.01 10*6/uL Low 4.2-5.4 [facility] Renal Profileon 06-21-2024 Albumin [Mass/Vol] 3.4 g/dL Normal 3.2-5.0 [facility] Comment on above: Performed By: #### L [id number], L100.0500 #### [facility] [address] [place], [address] BUN/CRE 16.2 RATIO Normal 10-20 [facility] Comment on above: Performed By: #### L [id number], L100.0500 #### [facility] [address] [place], [address] CA,Total 9.3 mg/dL Normal 8.5-10.1 [facility] Comment on above: Performed By: #### L 500.3600, L100.0500 #### [facility] [address] [place], [address] Chloride [Moles/Vol] 106 mmol/L Normal 98-107 [facility] Comment on above: Performed By: #### L 500.3600, L100.0500 #### [facility] [address] [place], [address] CO2 [Moles/Vol] 30.0 mmol/L Normal 21.0-32.0 [facility] Comment on above: Performed By: #### L 500.3600, L100.0500 #### [facility] [address] [place], [address] Creatinine [Mass/Vol] 1.97 mg/dL High 0.55-1.02 [facility] Comment on above: Result Comment: The validity of the calculated GFR GFRAA in patients over 70 years has not been determined. Clinical correlation is essential. Performed By: #### L 500.3600, L100.0500 #### [facility] [address] [place], [address] EST GFR - AA 31 mL/min Low >60 [facility] Comment on above: Result Comment: Afri can [place] GFR Calc Performed By: #### L 500.3600, L100.0500 #### [facility] [address] [place], [address] GFR/1.73 sq M.predicted among non-blacks MDRD (S/P/Bld) [Vol rate/Area] 26 mL/min/{1.73_m2} Low >60 [facility] Comment on above: Result Comment: Non- GFR Calc Performed By: #### L 500.3600, L100.0500 #### [facility] [address] [place], [address] Glucose [Mass/Vol] 72 mg/dL Low 74-106 [facility] Comment on above: Performed By: #### L 500.3600, L100.0500 #### [facility] [address] [place], [address] Phosphate [Mass/Vol] 3.9 mg/dL Normal 2.5-4.9 [facility] Comment on above: Performed By: #### L 500.3600, L100.0500 #### [facility] [address] [place], [address] Potassium [Moles/Vol] 4.3 mmol/L Normal 3.5-5.1 [facility] Comment on above: Performed By: #### L 500.3600, L100.0500 #### [facility] [address] [place], [address] Sodium [Moles/Vol] 140 mmol/L Normal 136-145 [facility] Comment on above: Performed By: #### L 500.3600, L100.0500 #### [facility] [address] [place], [address] Urea nitrogen [Mass/Vol] 32 mg/dL High 11-14 [facility] Comment on above: Performed By: #### L 500.3600, L100.0500 #### [facility] [address] [place], [address] Serum or plasma albumin etta urement (mass/volume)Ordered By: Christie Guzman on 06-21-2024 Albumin [Mass/Vol] 3.4 g/dL 3.2-5.0 [facility] Serum or plasma calcium etta urement (mass/volume)Ordered By: Christie Guzman on 06-21-2024 Calcium [Mass/Vol] 9.3 mg/dL 8.5-10.1 [facility] Serum or plasma creatinine m easurement (mass/volume)Ordered By: Christie Guzman on 06-21-2024 Creatinine [Mass/Vol] 1.97 mg/dL High 0.55-1.02 [facility] Comment on above: The validity of the calculated GFR & GFRAA in patients over 70 years has not been determined. Clinical correlation is essential. Serum or plasma urea nitroge n measurement (mass/volume)Ordered By: Christie Guzman on 06-21-2024 Urea nitrogen [Mass/Vol] 32 mg/dL High 11-14 [facility] Sodium levelOrdered By: Mak Guzman on 06-21-2024 Sodium [Moles/Vol] 140 mmol/L 136-145 [facility] White blood cell (WBC) count Ordered By: Christie Guzman on 06-21-2024 WBC (Bld) [#/Vol] 8.9 10*3/uL 4.4-11.0 [facility] Gastroenterology Visit Repor ton 05-19-2024 Gastroenterology Visit Report [facility] [address] [place] [address] OFFICE VISIT Date of Service: 05/19/24 MR#: [id number] Acct: [id number] Name: DAYANA QUIÑONES Rep #: [id number] 3 : 1940 Provider: Rigoberto Morton, Age/Sex: 84/F Location: [facility] [place].[facility] Status: Signed Intake Vital Signs 10/22/23 10:24 01/10/24 08:39 Height 5 ft 3 in 5 ft 2 in Intake Visit Reasons: 6 M FU Allergies morphine Allergy (Verified 01/10/24 08:32) Vomiting sacubitril (From Entresto) Adverse Reaction (Intermediate, Verified 01/10/24 08:32) Hypotension on lowest dose valsartan (From Entresto) Adverse Reaction (Intermediate, Verified 01/10/24 08:32) Hypotension on lowest dose Medications ???Medication ???Instructions ???Recorded ???Confirmed ???Type erythromycin 5 mg/gram (0.5 %) eye 1 applic LEFT EYE QHS EYE INFECTION 12/08/16 05/19/24 History ointment acyclovir 800 mg tablet 800 mg PO DAILY SHINGLES 09/11/19 05/19/24 History difluprednate 0.05 % eye drops 1 drp ophthalmic (eye) QODAY 05/13/20 05/19/24 History SWELLING/PAIN timolol maleate 0.5 % eye drops 1 drp ophthalmic (eye) BID GLAUCOMA 02/14/22 05/19/24 History carvedilol 3.125 mg tablet (Coreg) 3.125 mg PO BID HEART #180 tabs 05/16/23 05/19/24 Rx propylene glycol 0.6 % eye drops 1 drp EACH EYE DAILY PRN DRY EYE 06/12/23 05/19/24 History (Lubricant Eye (propylene glycol)) vit C 250 mg-vit E 90 mg-zinc 40 1 tab PO BID EYE HEALTH 06/12/23 05/19/24 History mg-copper 1 [id number] capsule (PreserVision AREDS-2) pantoprazole 40 mg tablet,delayed 40 mg PO BID Recent GI bleed, 07/17/23 05/19/24 Rx release needs to take 40 bid. #180 tabs dapagliflozin propanediol 10 mg 10 mg PO DAILY BLOOD SUGARS #90 10/05/23 05/19/24 Rx tablet (Farxiga) tabs ferrous sulfate 325 mg (65 mg 325 mg PO DAILY 11/13/23 05/19/24 History iron) tablet amiodarone 200 mg tablet 200 mg PO DAILY #30 tabs 11/15/23 05/19/24 Rx Handicap #1 ea 01/10/24 05/19/24 Rx cholecalciferol (vitamin D3) 50 50 mcg PO QDAY 01/10/24 05/19/24 History mcg (2,000 unit) tablet furosemide 40 mg tablet 40 mg PO DAILY #90 tabs 01/10/24 05/19/24 Rx apixaban 5 mg tablet (Eliquis) 5 mg PO BID #180 tabs 01/15/24 05/19/24 Rx atorvastatin 20 mg tablet 20 mg PO QHS CHOLESTEROL #90 tabs 03/24/24 05/19/24 Rx spironolactone 25 mg tablet 25 mg PO DAILY #90 tabs 05/02/24 05/19/24 Rx Have you fallen in the past year?: No PFSH Medical History Anemia GI bleed Medication induced coagulopathy Non-ischemic cardiomyopathy Chronic anemia HFrEF (heart failure with reduced ejection fraction) Anticoagulant long-term use Ischemic cardiomyopathy Anxiety History of ST elevation myocardial infarction (STEMI) (11/16/18) 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) Fractured sternum 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 History of vertigo Acute kidney injury Mobitz (type) II atrioventricular block Essential (primary) hypertension Surgical History (Reviewed 01/10/24 @ 08:49 by Bart Gonzalez SENIOR MOBILE DEVELOPER, SENIOR MOBILE DEVELOPER-C) S/P CABG x 2 S/P mitral valve repair History of left heart catheterization (06/21/20) History of coronary artery stent placement (12/19/18) Presence of permanent cardiac pacemaker (08/02/18) Family History (Reviewed 01/10/24 @ 08:49 by Bart Gonzalez SENIOR MOBILE DEVELOPER, SENIOR MOBILE DEVELOPER-C) Father Heart disease Mother Heart disease Chronic anemia Iron deficiency Social History household members: none Smoking Status: Former smoker how long ago did patient quit smoking: Quit in 1967. alcohol intake: never substance use type: does not use caffeine: Yes Type: coffee Number of servings: 2 HPI HPI Details: DAYANA QUIÑONES, is a 84 F who presents to the office today for follow up. [facility] hospitalization 2.1324 -218 general weakness and anemia - symptoms began approximately 5 days prior to admission with very dark stools that turned the water red in the toilet. abd/pelvis CTA 2.1424 Small bilateral pleural effusions with scarring at both lung bases. Large hiatal hernia. Small layering gallstones. Sigmoid diverticulosis without diverticulitis. EGD 24 Normal esophagus. Mild Schatzki ring. Medium-sized hiatal hernia. Three bleeding angiodysplastic lesions in the duodenum. Treated with a heater probe. No specimens collected. *BGI established 7[address]24 pt reports that she is feeling well overall and denies any bloody stool since hospital visit in May 2023. Pt states that as long as she takes her pantoprazole, she does not have any heartburn, will use TUMs as well if necessary. OV 05.19.24 pt reports that she is feeling well overall and denies GI symptoms of concern at this time. Pt woul (more content not included)... Normal [facility] CNOVon 05-16-2024 [facility] Office Visit ([facility] ) DAYANA QUIÑONES ([id number]) 1940 F Date Time Provider Department 05/16/24 12:40 PM AMALIA AVERYWS During your visit today, we recorded the following information about you: Temperature Pulse Respiration Blood pressure 97.9 degrees 68/minute 16/minute 112/62 Weight 62.7 kg Amalia Avery MD 05/17/2024 9:47 AM Signed Chief Complaint Patient presents with: Follow Up: EC visit 05/10/24 HPI Dayana Quiñones is a 84 year old female who presents here today for Above Complaints. Accompanied today by daughter. Patient evaluated in EC on 05/10 with following HPI: For the last two days pt has had a cough, hoarse voice, and chest congestion.; Review of Systems Constitutional: Negative for fever. HENT: Positive for sore throat and voice change. Negative for ear pain. Respiratory: Positive for cough. Diagnosed with pneumonia on CXR and started on Doxycycline BID x 5 days. Since discharge, patient has completed her abx and symptoms are improving, but she is not 100%. Cough has improved. Sore throat has resolved. Still has some hoarse voice. Denies fever/chills, SOB, wheezing, chest pain, chest congestion, headache, myalgias, nausea, vomiting, diarrhea. Notes some unsteady gait after her illness. Has cane and walker at home, but has not been using them. Past medical history, appointments, medications, allergies reviewed. 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 Brumfield Benign hypertension 07/01/2015 BPPV (benign paroxysmal positional vertigo), unspecified laterality 04/11/2017 CKD (chronic kidney disease) stage 3, GFR 30-59 ml/min (HCC) Fibrocystic breast disease (FCBD) in female 07/01/2015 Gastroesophageal reflux disease 07/01/2015 Gastrointestinal bleed duodenal ulcer Herpes zoster keratoconjunctivitis 07/01/2015 Hyperlipidemia 2019 Ischemic [...] Patient Allergies ALLERGIES Allergen Reactions Morphine GI Upset, Vomiting Current Medications Current Outpatient Medications on File Prior to Visit Medication Sig amiodarone (PACERONE) 200 mg tablet Take 1 tablet by mouth every afternoon. ferrous sulfate 325 mg (65 mg iron) tablet Take one tablet every other day furosemide (LASIX) 20 mg tablet Take one tablet daily apixaban (ELIQUIS) 5 mg tab(s) Take 1 tablet by mouth two times a day. acyclovir (ZOVIRAX) 800 mg tablet Take one tablet once a day erythromycin (ROMYCIN) 5 mg/gram (0.5 %) ophthalmic ointment Use 1 application in both eyes daily at bedtime. Cholecalciferol, Vitamin D3, 25 mcg (1,000 unit) cap Take 2 capsules by mouth once daily. spironolactone (ALDACTONE) 25 mg tablet Take 25 mg by mouth once daily. carvedilol (COREG) 3.125 mg tablet Take 3.125 mg by mouth two times a day with meals. Vit A,C,A-Qasw-Amjqrn (ICAPS AREDS) 4,296 mcg-226 mg-90 mg cap Take 1 capsule by mouth once daily. dapagliflozin propanediol (FARXIGA) 10 mg tablet Take 10 mg by mouth daily with breakfast. timolol maleate (TIMOPTIC) 0.5 % ophthalmic solution [...] PRESCRIPTION 1 Drop. Every other day-left eye pantoprazole DR (PROTONIX) 40 mg tablet Take 1 tablet by mouth two times a day. No current facility-administered medications on file prior to visit. Social History Social History Tobacco Use Smoking status: Former Current packs/day: 0.00 Types: Cigarettes Quit date: 04/30/1967 Years since quittin.0 Smokeless tobacco: Never Vaping Use Vaping status: Never Used Substance Use Topics Alcohol use: No Drug use: (more content not included)... Normal [facility] CNOVon 05-10-2024 CNOV Office Visit (UCWSTR ) DAYANA QUIÑONES ([id number]) 1940 F Date Time Provider Department 05/10/24 11:00 AM ARI REINOSO [facility] During your visit today, we recorded the following information about you: Temperature Pulse Respiration Blood pressure 97.9 degrees 60/minute 18/minute 92/60 Weight 62.1 kg Ari Reinoso, PROFESSOR OF CHEMICAL ENGINEERING.BRANCH OFFICE MANAGER 05/10/2024 12:55 PM Signed This note was created using Glowpoint. Subjective Dayana Quiñones is a 84 year old female. HPI For the last two days pt has had a cough, hoarse voice, and chest congestion.; Review of Systems Constitutional: Negative for fever. HENT: Positive for sore throat and voice change. Negative for ear pain. Respiratory: Positive for cough. Objective BP 92/60 Pulse 60 Temp 36.6 ?C (97.9 ?F) Resp 18 Wt 62.1 kg (136 lb 14.5 oz) SpO2 96% BMI 24.25 kg/m? Physical Exam Vitals and nursing note reviewed. Constitutional: General: She is not in acute distress. Appearance: Normal appearance. She is not ill-appearing. HENT: Head: Normocephalic. Mouth/Throat: Mouth: Mucous membranes are moist. Pharynx: No oropharyngeal exudate or posterior oropharyngeal erythema. Eyes: Conjunctiva/sclera: Conjunctivae normal. Cardiovascular: Rate and Rhythm: Normal rate and regular rhythm. Pulmonary: Effort: Pulmonary effort is normal. Breath sounds: Normal breath sounds. Musculoskeletal: General: Normal range of motion. Cervical back: Normal range of motion. Skin: General: Skin is warm and dry. Neurological: General: No focal deficit present. Mental Status: She is alert. Psychiatric: Mood and Affect: Mood normal. Behavior: Behavior normal. Assessment and Plan ASSESSMENT/PLAN: 1. Acute cough - ICD9: 786.2, ICD10: R05.1 (primary diagnosis) As below - XR CHEST 2V FRONTAL/LAT 2. Community acquired pneumonia, unspecified laterality - ICD9: 486, ICD10: J18.9 Chest x-ray was somewhat nonspecific but did have concerns for possible consolidation in the right lower lobe. Patient was given prescription for antibiotic as noted below and recommended follow-up with PCP. - DOXYCYCLINE MONOHYDRATE 100 MG CAPSULE Ari Reinoso APRN.CNP Allergies As of Date: 05/10/2024 Noted Allergy Reaction MORPHINE 01/11/2017 8 - GI Upset 11 - Vomiting Date Reviewed: 05/10/2024 Reviewed by: Ari Reinoso APRN.BRANCH OFFICE MANAGER - Fully Assessed Reason for Visit: Cough [28] Cmt: Chest congestion x2 days, hoarse voice Primary Visit Diagnosis:Acute cough [R05.1] Other Visit Diagnosis:Community acquired pneumonia, unspecified laterality [J18.9] Order(s):XR CHEST 2V FRONTAL/LAT [[id number]] Order #: [id number] FUTURE doxycycline monohydrate (MONODOX) 100 mg capsuleTake 1 capsule by mouth two times a day for 5 days.Disp: 10 capsuleRfl: 0 Prescriptions as of 05/10/2024 - doxycycline monohydrate (MONODOX) 100 mg capsule Take 1 capsule by mouth two times a day for 5 days. - amiodarone (PACERONE) 200 mg tablet Take 1 tablet by mouth every afternoon. - ferrous sulfate 325 mg (65 mg iron) tablet Take one tablet every other day - furosemide (LASIX) 20 mg tablet Take one tablet daily - apixaban (ELIQUIS) 5 mg tab(s) Take 1 tablet by mouth two times a day. - acyclovir (ZOVIRAX) 800 mg tablet Take one tablet once a day - erythromycin (ROMYCIN) 5 mg/gram (0.5 %) ophthalmic ointment Use 1 application in both eyes daily at bedtime. - Cholecalciferol, Vitamin D3, 25 mcg (1,000 unit) cap Take 2 capsules by mouth once daily. - spironolactone (ALDACTONE) 25 mg tablet Take 25 mg by mouth once daily. - pantoprazole DR (PROTONIX) 40 mg tablet Take 1 tablet by mouth two times a day. - carvedilol (COREG) 3.125 mg tablet Take 3.125 mg by mouth two times a day with meals. - Vit A,C,S-Rnpa-Qrjcon (ICAPS AREDS) 4,296 mcg-226 mg-90 mg cap Take 1 capsule by mouth once daily. - dapagliflozin propanediol (FARXIGA) 10 mg tablet Take 10 mg by mouth daily with breakfast. - timolol maleate (TIMOPTIC) 0.5 % ophthalmic [...] eye as directed. Every other day. - COMPOUNDED PRESCRIPTION 1 Drop. 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 Normal [facility] XR CHEST 2V FRONTAL/LATon XR CHEST 2V FRONTAL/LAT * * *Final Repor t* * * DATE OF EXAM: May 10 2024 11:37AM WOX [id number] - XR CHEST 2V FRONTAL/LAT / PROCEDURE REASON: Acute cough * * * * Physician Interpretation * * * * EXAMINATION: CHEST RADIOGRAPH (2 VIEW FRONTAL and LATERAL) CLINICAL HISTORY: Acute cough MQ: XC2_6 EXAM DATE/TIME: 05/10/2024 11:37 AM COMPARISON: 08/07/2023 RESULT: Lines, tubes, and devices: Left chest wall cardiac pacing device. Lungs and pleura: Stable fibrotic changes. There is streaky consolidation in the right lower lobe which may represent atelectasis or early pneumonia. No pleural effusion or pneumothorax. Cardiomediastinal silhouette: Stable cardiomediastinal silhouette. Bones and soft tissues: Unremarkable. IMPRESSION: See result. Value Advisor: DHIRAJ Transcribe Date/Time: May 10 2024 12:42P Dictated by : SHANKAR MARIA MD This examination was interpreted and the report reviewed and electronically signed by: SHANKAR MARIA MD on May 10 2024 12:44PM EST [id number] Normal [facility] XR Chest PA and Lateralon IMPRESSION: See result. Value Advisor: DHIRAJ Transcribe Date/Time: May 10 2024 12:42P Dictated by : SHANKAR MARIA MD This examination was interpreted and the report reviewed and electronically signed by: SHANKAR MARIA MD on May 10 2024 12:44PM EST DIVISION OF RADIOLOGY * * *Final Report* * * DATE OF EXAM: May 10 2024 11:37AM WOX [id number] - XR CHEST 2V FRONTAL/LAT / PROCEDURE REASON: Acute cough * * * * Physician Interpretation * * * * EXAMINATION: CHEST RADIOGRAPH (2 VIEW FRONTAL & LATERAL) CLINICAL HISTORY: Acute cough MQ: XC2_6 EXAM DATE/TIME: 05/10/2024 11:37 AM COMPARISON: 08/07/2023 RESULT: Lines, tubes, and devices: Left chest wall cardiac pacing device. Lungs and pleura: Stable fibrotic changes. There is streaky consolidation in the right lower lobe which may represent atelectasis or early pneumonia. No pleural effusion or pneumothorax. Cardiomediastinal silhouette: Stable cardiomediastinal silhouette. Bones and soft tissues: Unremarkable. DIVISION OF RADIOLOGY Provider, [facility] - 05/10/2024 * * *Final Report* * * DATE OF EXAM: May 10 2024 11:37AM WOX [id number] - XR CHEST 2V FRONTAL/LAT / PROCEDURE REASON: Acute cough * * * * Physician Interpretation * * * * EXAMINATION: CHEST RADIOGRAPH (2 VIEW FRONTAL & LATERAL) CLINICAL HISTORY: Acute cough MQ: XC2_6 EXAM DATE/TIME: 05/10/2024 11:37 AM COMPARISON: 08/07/2023 RESULT: Lines, tubes, and devices: Left chest wall cardiac pacing device. Lungs and pleura: Stable fibrotic changes. There is streaky consolidation in the right lower lobe which may represent atelectasis or early pneumonia. No pleural effusion or pneumothorax. Cardiomediastinal silhouette: Stable cardiomediastinal silhouette. Bones and soft tissues: Unremarkable. IMPRESSION IMPRESSION: See result. Value Advisor: DHIRAJ Transcribe Date/Time: May 10 2024 12:42P Dictated by : SHANKAR MARIA MD This examination was interpreted and the report reviewed and electronically signed by: SHANKAR MARIA MD on May 10 2024 12:44PM [facility] Radiology Study observation (narrative) Maricarmen pablo [facility] XR Chest PA and LateralOrder ed By: Ccf Provider on 05-10-2024 [facility] CBC W Auto Differential pane l (Bld)on 10-01-2023 Basophils (Bld) [#/Vol] 0.06 10*3/uL [facility] Basophils/100 WBC (Bld) 0.5 % [facility] Differential cell count method Nom (Bld) Auto [facility] Eosinophils (Bld) [#/Vol] 0.43 10*3/uL [facility] Eosinophils/100 WBC (Bld) 3.7 % [facility] Erythrocyte distribution width (RBC) [Ratio] 24.4 % High 11.5 - 15.0 % [facility] Hematocrit (Bld) [Volume fraction] 41.6 % 36.0 - 46.0 % [facility] Hemoglobin (Bld) [Mass/Vol] 12.9 g/dL 11.5 - 15.5 g/dL [facility] Immature granulocytes (Bld) [#/Vol] 0.03 10*3/uL [facility] Immature granulocytes/100 WBC (Bld) 0.3 % [facility] Interpretation and review of laboratory results Abnormal [facility] Lymphocytes (Bld) [#/Vol] 1.86 10*3/uL [facility] Lymphocytes/100 WBC (Bld) 15.9 % [facility] MCH (RBC) [Entitic mass] 27.5 pg 26. 0 - 34.0 pg [facility] MCHC (RBC) [Mass/Vol] 31.0 g/dL 30.5 - 36.0 g/dL [facility] MCV (RBC) [Entitic vol] 88.7 fL 80.0 - 100.0 fL [facility] Monocytes (Bld) [#/Vol] 1.02 10*3/uL High [facility] Monocytes/100 WBC (Bld) 8.7 % [facility] Neutrophils (Bld) [#/Vol] 8.28 10*3/uL High [facility] Neutrophils/100 WBC (Bld) 70.9 % [facility] Nucleated RBC (Bld) [#/Vol] NINF [facility] Nucleated RBC/100 WBC (Bld) [Ratio] 0.0 % /100 WBC [facility] Platelet mean volume (Bld) [Entitic vol] 11.2 fL 9.0 - 12.7 fL [facility] Platelets (Bld) [#/Vol] 233 10*3/uL [facility] RBC (Bld) [#/Vol] 4.69 10*6/uL 3.90 - 5.2 0 m/uL [facility] WBC (Bld) [#/Vol] 11.68 10*3/uL High [facility] Comprehensive metabolic 2000 panelon 10-01-2023 Albumin [Mass/Vol] 4.3 g/dL 3.9 - 4.9 g/dL [facility] ALP [Catalytic activity/Vol] 114 U/L 34 - 123 U/L [facility] ALT [Catalytic activity/Vol] 15 U/L 7 - 38 U/L [facility] Anion gap [Moles/Vol] 11 mmol/L 9 - 18 mmol/L [facility] AST [Catalytic activity/Vol] 26 U/L 13 - 35 U/L [facility] Bilirubin [Mass/Vol] 0.7 mg/dL 0.2 - 1 .3 mg/dL [facility] Calcium [Mass/Vol] 10.3 mg/dL High 8.5 - 10. 2 mg/dL [facility] Chloride [Moles/Vol] 96 mmol/L Low 97 - 10 5 mmol/L [facility] CO2 [Moles/Vol] 30 mmol/L 22 - 30 mmol/L [facility] Creatinine [Mass/Vol] 1.69 mg/dL High 0.58 - 0.96 mg/dL [facility] GFR/1.73 sq M.predicted among non-blacks MDRD (S/P/Bld) [Vol rate/Area] 30 mL/min/{1.73_m2} Low - PINF [facility] Comment on above: Estimated Glomerular Filtration Rate (eGFR) is calculated using the 2020 CKD-EPI creatinine equation. This equation utilizes serum creatinine, sex, and age as parameters. The creatinine assay has traceable calibration to isotope dilution-mass spectrometry. Refer to KDIGO guidelines for clinical interpretation. In patients with unstable renal function, e.g. those with acute kidney injury, the eGFR may not accurately reflect actual GFR. Glucose [Mass/Vol] 97 mg/dL 74 - 99 mg/dL [facility] Comment on above: The [place] Diab[employer] s Association (ADA) provides guidance for cutoff values for fasting glucose and random glucose. The ADA defines fasting as no caloric intake for at least 8 hours. Fasting plasma glucose results between 100 to 125 mg/dL indicate increased risk for diabetes (prediabetes). Fasting plasma glucose results greater than or equal to 126 mg/dL meet the criteria for diagnosis of diabetes. In the absence of unequivocal hyperglycemia, results should be confirmed by repeat testing. In a patient with classic symptoms of hyperglycemia or hyperglycemic crisis, random plasma glucose results greater than or equal to 200 mg/dL meet the criteria for diagnosis of diabetes. Reference: Standards of Medical Care in Diabetes 2016, [place] [employer]. Diabetes Care. 2016.39(Suppl 1). Interpretation and review of laboratory results Abnormal [facility] Potassium [Moles/Vol] 4.6 mmol/L 3.7 - 5.1 mmol/L [facility] Protein [Mass/Vol] 7.4 g/dL 6.3 - 8.0 g/dL [facility] Sodium [Moles/Vol] 137 mmol/L 136 - 144 mmol/L [facility] Urea nitrogen [Mass/Vol] 33 mg/dL High 7 - 21 mg/dL [facility] FERRITINon 10-01-2023 Ferritin [Mass/Vol] 82.3 ng/mL 14.7 - 205.1 ng/mL [facility] Ferritin [Mass/Vol]on 2023 Interpretation and review of laboratory results Normal [facility] Iron and Iron binding capaci ty panelon 10-01-2023 Interpretation and review of laboratory results Normal [facility] Iron [Mass/Vol] 145 ug/dL 41 - 186 ug/dL [facility] Iron binding capacity [Mass/Vol] 328 ug/dL 232 - 386 ug/dL [facility] Iron/TIBC [Molar ratio] 44.2 % 15.0 - 57.0 % [facility] No Panel Informationon 09-30 [facility] Basophil percentageOrdered B y: Bart Gonzalez on 08-31-2023 Chloride [Moles/Vol] 100 mmol/L 98-107 [facility] Glucose [Mass/Vol] 117 mg/dL 74-106 [facility] Comment on above: Fasting Glucose resu lt from 100 to 125 mg/dL suggests IMPAIRED HOMEOSTASIS per A.D.A. criteria. Potassium [Moles/Vol] 3.5 mmol/L 3.5-5.1 [facility] Sodium [Moles/Vol] 137 mmol/L 136-145 [facility] Laboratory - Chemistry and C hemistry - challengeOrdered By: Bart Gonzalez on 08-31-2023 CO2 [Moles/Vol] 30.0 mmol/L 21.0-32.0 [facility] Urea nitrogen/Creatinine [Mass ratio] 18.5 mg/mg 10-20 [facility] No Panel InformationOrdered By: Bart Gonzalez on 08-31-2023 Estimated GFR (MDRD) Amer 40 mL/min >60 [facility] Comment on above: GFR Calc Estimated GFR (MDRD) Non-Af Amer 33 mL/min >60 [facility] Comment on above: Non- GFR Calc Serum or plasma calcium etta urement (mass/volume)Ordered By: Bart Gonzalez on 08-31-2023 Calcium [Mass/Vol] 9.7 mg/dL 8.5-10.1 [facility] Serum or plasma creatinine m easurement (mass/volume)Ordered By: Bart Gonzalez on 08-31-2023 Creatinine [Mass/Vol] 1.57 mg/dL 0.55-1.02 [facility] Comment on above: The validity of the calculated GFR & GFRAA in patients over 70 years has not been determined. Clinical correlation is essential. Serum or plasma urea nitroge n measurement (mass/volume)Ordered By: Bart Gonzalez on 08-31-2023 Urea nitrogen [Mass/Vol] 29 mg/dL 7-18 [facility] Thin prep Papanicolaou smear with manual screeningOrdered By: aBrt Gonzalez on 08-31-2023 Thin prep Papanicolaou smear with manual screening 7 5-15 [facility] NT PRO BNPon 08-08-2023 Natriuretic peptide.B prohormone N-Terminal [Mass/Vol] 6563 pg/mL High <450 pg/mL [facility] XR Chest PA and Lateralon IMPRESSION: Improvement. Persistent diffuse interstitial abnormality. Cardiomegaly Value Advisor: DHIRAJ Transcribe Date/Time: Aug 07 2023 4:48P Dictated by : ИРИНА MALDONADO MD This examination was interpreted and the report reviewed and electronically signed by: ИРИНА MALDONAOD MD on Aug 07 2023 4:50PM [facility] DIVISION OF RADIOLOGY * * *Final Report* * * DATE OF EXAM: Aug 07 2023 4:43PM WOX 5291 - XR CHEST 2V FRONTAL/LAT / PROCEDURE REASON: Acute on chronic systolic heart failure (HCC) * * * * Physician Interpretation * * * * EXAMINATION: CHEST RADIOGRAPH (2 VIEW FRONTAL & LATERAL) CLINICAL HISTORY: Acute on chronic systolic heart failure (HCC) MQ: XC2_6 EXAM DATE/TIME: 08/07/2023 4:43 PM COMPARISON: 07/10/2023 RESULT: Lines, tubes, and devices: Left cardiac pacer and leads is unchanged. Mediastinal wires are noted. Left atrial appendage clip Lungs and pleura: Some improvement in the bilateral infiltrates. Persistent diffuse interstitial abnormality. No significant persistent pleural fluid. No pneumothorax Cardiomediastinal silhouette: Stable enlarged cardiomediastinal silhouette. Bones and soft tissues: Unremarkable. DIVISION OF RADIOLOGY Provider, [facility] - 08/07/2023 * * *Final Report* * * DATE OF EXAM: Aug 07 2023 4:43PM WOX 5291 - XR CHEST 2V FRONTAL/LAT / PROCEDURE REASON: Acute on chronic systolic heart failure (HCC) * * * * Physician Interpretation * * * * EXAMINATION: CHEST RADIOGRAPH (2 VIEW FRONTAL & LATERAL) CLINICAL HISTORY: Acute on chronic systolic heart failure (HCC) MQ: XC2_6 EXAM DATE/TIME: 08/07/2023 4:43 PM COMPARISON: 07/10/2023 RESULT: Lines, tubes, and devices: Left cardiac pacer and leads is unchanged. Mediastinal wires are noted. Left atrial appendage clip Lungs and pleura: Some improvement in the bilateral infiltrates. Persistent diffuse interstitial abnormality. No significant persistent pleural fluid. No pneumothorax Cardiomediastinal silhouette: Stable enlarged cardiomediastinal silhouette. Bones and soft tissues: Unremarkable. IMPRESSION IMPRESSION: Improvement. Persistent diffuse interstitial abnormality. Cardiomegaly Value Advisor: DHIRAJ Transcribe Date/Time: Aug 07 2023 4:48P Dictated by : ИРИНА MALDONADO MD This examination was interpreted and the report reviewed and electronically signed by: ИРИНА MALDONADO MD on Aug 07 2023 4:50PM [facility] Radiology Study [facility]narrative) [facility] XR Chest PA and LateralOrder ed By: Ccf Provider on 08-07-2023 [facility] Basophil percentageOrdered B y: Kinga Eubanks on 07-19-2023 Basophil percentage 0-5 SEEN /hpf 0-5 [facility] Basophil percentage 3.9 mg/dL 2.5-4.9 [facility] Chloride [Moles/Vol] 107 mmol/L 98-107 [facility] Glucose [Mass/Vol] 102 mg/dL 74-106 [facility] Comment on above: Fasting Glucose resu lt from 100 to 125 mg/dL suggests IMPAIRED HOMEOSTASIS per A.D.A. criteria. Hemoglobin (Bld) [Mass/Vol] 8.4 g/dL 12.0-15.0 [facility] Potassium [Moles/Vol] 3.8 mmol/L 3.5-5.1 [facility] Sodium [Moles/Vol] 142 mmol/L 136-145 [facility] WBC (Bld) [#/Vol] 7.1 10*3/uL 4.4-11.0 [facility] Bilirubin Test strip Ql (U)O rdered By: Kinga Eubanks on 07-19-2023 Bilirubin Ql (U) Negative Negative [facility] Determination of erythrocyte mean corpuscular volume (MCV)Ordered By: Kinga Eubanks on 07-19-2023 MCV (RBC) [Entitic vol] 91.5 fL 81-99 [facility] Erythrocyte distribution wid th ratioOrdered By: Kinga Eubanks on 07-19-2023 Erythrocyte distribution width (RBC) [Ratio] 18.8 % 11.6-14.6 [facility] Erythrocyte distribution wid th standard deviationOrdered By: Kinga Eubanks on 07-19-2023 Erythrocyte distribution width (RBC) [Entitic vol] 62.8 fL 35.1-43.9 [facility] Hematocrit Auto (Bld) [Volum e fraction]Ordered By: Kinga Eubanks on 07-19-2023 Hematocrit (Bld) [Volume fraction] 29.0 % 37-47 [facility] Iron measurement (mass/mass) Ordered By: Kinga Eubanks on 07-19-2023 Iron (Unsp spec) [Mass/Mass] 20 ug/dL 50-170 [facility] Ketones Test strip Ql (U)Ord ered By: Kinga Eubanks on 07-19-2023 Ketones Ql (U) Negative Negative [facility] Laboratory - Chemistry and C hemistry - challengeOrdered By: Kinga Eubanks on 07-19-2023 CO2 [Moles/Vol] 27.0 mmol/L 21.0-32.0 [facility] Ferritin [Mass/Vol] 43 ng/mL 8-252 [facility] Natriuretic peptide B (Bld) [Mass/Vol] 1174.3 pg/mL 0-100 [facility] Urea nitrogen/Creatinine [Mass ratio] 17.6 mg/mg 10-20 [facility] Laboratory - Hematology and Cell countsOrdered By: Kinga Eubanks on 07-19-2023 MCH (RBC) [Entitic mass] 26.5 pg 27.0-32.0 [facility] MCHC (RBC) [Mass/Vol] 29.0 g/dL 32-36 [facility] Platelet mean volume (Bld) [Entitic vol] 10.8 fL 6.2-12.0 [facility] Platelets (Bld) [#/Vol] 262 10*3/uL 150-450 [facility] Mucus LM Ql (Urine sed)Order ed By: Kinga Eubanks on 07-19-2023 Mucus Ql (Urine sed) 0 SEEN /hpf [facility] Nitrite Test strip Ql (U)Ord ered By: Kinga Eubanks on 07-19-2023 Nitrite Ql (U) Negative Negative [facility] No Panel InformationOrdered By: Kinga Eubanks on 07-19-2023 Urine RBC 0 SEEN /hpf 0-5 [facility] Estimated GFR (MDRD) Amer 50 mL/min >60 [facility] Comment on above: GFR Calc Estimated GFR (MDRD) Non-Af Amer 41 mL/min >60 [facility] Comment on above: Non- GFR Calc Total Iron Binding Capacity 400 ug/dL 250-450 [facility] Protein Test strip Ql (U)Ord ered By: Kinga Eubanks on 07-19-2023 Protein Ql (U) 30 mg/dl Negative [facility] RBC Auto (Bld) [#/Vol]Ordere d By: Kinga Eubanks on 07-19-2023 RBC (Bld) [#/Vol] 3.17 10*6/uL 4.2-5.4 [facility] Serum or plasma calcium etta urement (mass/volume)Ordered By: Kinga Eubanks on 07-19-2023 Calcium [Mass/Vol] 8.8 mg/dL 8.5-10.1 [facility] Serum or plasma creatinine m easurement (mass/volume)Ordered By: Kinga Eubanks on 07-19-2023 Creatinine [Mass/Vol] 1.31 mg/dL 0.55-1.02 [facility] Comment on above: The validity of the calculated GFR & GFRAA in patients over 70 years has not been determined. Clinical correlation is essential. Serum or plasma urea nitroge n measurement (mass/volume)Ordered By: Kinga Eubanks on 07-19-2023 Urea nitrogen [Mass/Vol] 23 mg/dL 7-18 [facility] Squamous epithelial cells de tection in urine sediment by light microscopyOrdered By: Kinga Eubanks on 07-19-2023 Epithelial cells.squamous LM Ql (Urine sed) 5-10 SEEN /hpf 5-10 [facility] Thin prep Papanicolaou smear with manual screeningOrdered By: Kinga Eubanks on 07-19-2023 Thin prep Papanicolaou smear with manual screening 3.1 g/dL 3.2-5.0 [facility] Thin prep Papanicolaou smear with manual screening 8 5-15 [facility] Urine blood detectionOrdered By: Kinga Eubanks on 07-19-2023 RBC Ql (U) 10 /ul Negative [facility] Urine clarityOrdered By: Jared Liconaell on 07-19-2023 Clarity (U) Sl. Cloudy Clear [facility] Urine color determinationOrd ered By: Kinga Eubanks on 07-19-2023 Color (U) Yellow Yellow [facility] Urine glucose detectionOrder ed By: Kinga Eubanks on 07-19-2023 Glucose Ql (U) 1000 mg/dl Normal [facility] Urine leukocyte esterase det ection by dipstickOrdered By: Kinga Eubanks on 07-19-2023 Leukocyte esterase Test strip Ql (U) 100 /ul Negative [facility] Urine pHOrdered By: Kinga Eubanks on 07-19-2023 pH (U) 6.5 [pH] 5.0 - 8.0 [facility] Urine sediment bacteria coun t by microscopy (number/high power field)Ordered By: Kinga Eubanks on 07-19-2023 Bacteria LM.HPF (Urine sed) [#/Area] RARE /hpf None Seen [facility] Urine specific gravity measu rementOrdered By: Kinga Eubanks on 07-19-2023 Specific gravity (U) [Rel density] 1.015 1.002-1.030 [facility] Urine urobilinogen measureme ntOrdered By: Kinga Eubanks on 07-19-2023 Urobilinogen Ql (U) Normal mg/dl Normal [facility] XR Chest PA and Lateralon IMPRESSION: Bilateral pulmonary vascular congestion. Additionally seen is interstitial and alveolar edema and cardiomegaly. Bilateral pleural fluid. Likely related to congestive heart failure. Superimposed infection cannot be excluded. Likely underlying chronic lung disease. Value Advisor: PSCMalia Transcribe Date/Time: Jul 10 2023 4:42P Dictated by : ИРИНА MALDONADO MD This examination was interpreted and the report reviewed and electronically signed by: ИИРНА MALDONADO MD on Jul 10 2023 4:53PM [facility] DIVISION OF RADIOLOGY * * *Final Report* * * DATE OF EXAM: Jul 10 2023 3:43PM WOX 5291 - XR CHEST 2V FRONTAL/LAT / PROCEDURE REASON: Shortness of breath at rest * * * * Physician Interpretation * * * * EXAMINATION: CHEST RADIOGRAPH (2 VIEW FRONTAL & LATERAL) CLINICAL HISTORY: Shortness of breath at rest MQ: XC2_6 EXAM DATE/TIME: 07/10/2023 3:43 PM COMPARISON: 05/26/2022 RESULT: Lines, tubes, and devices: Left cardiac pacer and leads is unchanged. Mediastinal wires are in place Lungs and pleura: Bilateral pulmonary vascular congestion. Interstitial and alveolar edema is also seen. Bilateral pleural fluid collections. No significant collapse. No pneumothorax Cardiomediastinal silhouette: Enlarged cardiomediastinal silhouette. Bones and soft tissues: Unremarkable. DIVISION OF RADIOLOGY Provider, [facility] - 07/10/2023 * * *Final Report* * * DATE OF EXAM: Jul 10 2023 3:43PM WOX 5291 - XR CHEST 2V FRONTAL/LAT / PROCEDURE REASON: Shortness of breath at rest * * * * Physician Interpretation * * * * EXAMINATION: CHEST RADIOGRAPH (2 VIEW FRONTAL & LATERAL) CLINICAL HISTORY: Shortness of breath at rest MQ: XC2_6 EXAM DATE/TIME: 07/10/2023 3:43 PM COMPARISON: 05/26/2022 RESULT: Lines, tubes, and devices: Left cardiac pacer and leads is unchanged. Mediastinal wires are in place Lungs and pleura: Bilateral pulmonary vascular congestion. Interstitial and alveolar edema is also seen. Bilateral pleural fluid collections. No significant collapse. No pneumothorax Cardiomediastinal silhouette: Enlarged cardiomediastinal silhouette. Bones and soft tissues: Unremarkable. IMPRESSION IMPRESSION: Bilateral pulmonary vascular congestion. Additionally seen is interstitial and alveolar edema and cardiomegaly. Bilateral pleural fluid. Likely related to congestive heart failure. Superimposed infection cannot be excluded. Likely underlying chronic lung disease. Value Advisor: PSCMalia Transcribe Date/Time: Jul 10 2023 4:42P Dictated by : ИРИНА MALDONADO MD This examination was interpreted and the report reviewed and electronically signed by: ИРИНА MALDONADO MD on Jul 10 2023 4:53PM [facility] Radiology Study observation (narrative) [facility]en p[facility] XR Chest PA and LateralOrder ed By: Ccf Provider on 07-10-2023 [facility] CBC W Auto Differential pane l (Bld)on 07-09-2023 Basophils (Bld) [#/Vol] 0.07 10*3/uL <0.11 k/uL [facility] Basophils/100 WBC (Bld) 0.7 % [facility] Differential cell count method Nom (Bld) Auto [facility] Eosinophils (Bld) [#/Vol] 0.30 10*3/uL <0.46 k/ uL [facility] Eosinophils/100 WBC (Bld) 3.1 % [facility] Erythrocyte distribution width (RBC) [Ratio] 18.2 % High 11.5 - 15.0 % [facility] Hematocrit (Bld) [Volume fraction] 30.0 % Low 36.0 - 46.0 % [facility] Hemoglobin (Bld) [Mass/Vol] 8.5 g/dL Low 11.5 - 15.5 g/dL [facility] Immature granulocytes (Bld) [#/Vol] 0.03 10*3/uL <0.10 k/uL [facility] Immature granulocytes/100 WBC (Bld) 0.3 % [facility] Lymphocytes (Bld) [#/Vol] 1.49 10*3/uL 1. 00 - 4.00 k/uL [facility] Lymphocytes/100 WBC (Bld) 15.2 % [facility] MCH (RBC) [Entitic mass] 26.5 pg 26. 0 - 34.0 pg [facility] MCHC (RBC) [Mass/Vol] 28.3 g/dL Low 30.5 - 36.0 g/dL [facility] MCV (RBC) [Entitic vol] 93.5 fL 80.0 - 100.0 fL [facility] Monocytes (Bld) [#/Vol] 0.81 10*3/uL <0.87 k/uL [facility] Monocytes/100 WBC (Bld) 8.3 % [facility] Neutrophils (Bld) [#/Vol] 7.10 10*3/uL 1. 45 - 7.50 k/uL [facility] Neutrophils/100 WBC (Bld) 72.4 % [facility] Nucleated RBC (Bld) [#/Vol] 0.02 10*3/uL High <0.01 k/uL [facility] Nucleated RBC/100 WBC (Bld) [Ratio] 0.2 /100 WBC [facility] Platelet mean volume (Bld) [Entitic vol] 11.7 fL 9.0 - 12.7 fL [facility] Platelets (Bld) [#/Vol] 206 10*3/uL 150 - 400 k/uL [facility] RBC (Bld) [#/Vol] 3.21 10*6/uL Low 3.90 - 5.2 0 m/uL [facility] WBC (Bld) [#/Vol] 9.80 10*3/uL 3.70 - 11.00 k/uL [facility] Comprehensive metabolic 2000 panelon 07-09-2023 Albumin [Mass/Vol] 3.5 g/dL Low 3.9 - 4.9 g/dL [facility] ALP [Catalytic activity/Vol] 109 U/L 34 - 123 U/L [facility] ALT [Catalytic activity/Vol] 22 U/L 7 - 38 U/L [facility] Anion gap [Moles/Vol] 14 mmol/L 9 - 18 mmol/L [facility] AST [Catalytic activity/Vol] 37 U/L High 13 - 35 U/L [facility] Bilirubin [Mass/Vol] 0.9 mg/dL 0.2 - 1 .3 mg/dL [facility] Calcium [Mass/Vol] 8.8 mg/dL 8.5 - 10. 2 mg/dL [facility] Chloride [Moles/Vol] 103 mmol/L 97 - 10 5 mmol/L [facility] CO2 [Moles/Vol] 22 mmol/L 22 - 30 mmol/L [facility] Creatinine [Mass/Vol] 1.23 mg/dL High 0.58 - 0.96 mg/dL [facility] Estimated Glomerular Filtration Rate 43 mL/min/1.73m Low >=60 mL/min/1.73 m [facility] Glucose [Mass/Vol] 86 mg/dL 74 - 99 mg/dL [facility] Potassium [Moles/Vol] 4.3 mmol/L 3.7 - 5.1 mmol/L [facility] Protein [Mass/Vol] 6.4 g/dL 6.3 - 8.0 g/dL [facility] Sodium [Moles/Vol] 139 mmol/L 136 - 144 mmol/L [facility] Urea nitrogen [Mass/Vol] 15 mg/dL 7 - 21 mg/dL [facility] FERRITIN BLDon 07-09-2023 Ferritin [Mass/Vol] 179.0 ng/mL 14.7 - 205.1 ng/mL [facility] Iron and Iron binding capaci ty panelon 07-09-2023 Iron [Mass/Vol] 303 ug/dL High 41 - 186 ug/dL [facility] Iron binding capacity [Mass/Vol] 375 ug/dL 232 - 386 ug/dL [facility] Iron/TIBC [Molar ratio] 80.8 % High 15.0 - 57.0 % [facility] NT PRO BNPon 07-09-2023 Natriuretic peptide.B prohormone N-Terminal [Mass/Vol] 35580 pg/mL High <450 pg/mL [facility] Absolute lymphocyte countOrd ered By: Sherry Matta on 06-27-2023 Lymphocytes Auto (Unsp spec) [#/Vol] 1.28 10*3/uL 0.83-4.51 [facility] Automated lymphocyte count a s percentage of total leukocytesOrdered By: Sherry Matta on 06-27-2023 Lymphocytes/100 WBC Auto (Unsp spec) 16.7 % 19-41 [facility] Basophil percentageOrdered B y: Sherry Matta on 06-27-2023 Basophil percentage 7.7 g/dL 12.0-15.0 [facility] Basophil percentage 134 mg/dL 74-106 [facility] Basophil percentage 6.2 g/dL 6.4-8.2 [facility] Basophil percentage 0.60 mg/dL 0.20-1.00 [facility] Basophil percentage 140 mmol/L 136-145 [facility] Basophil percentage 4.4 mmol/L 3.5-5.1 [facility] Basophil percentage 109 mmol/L 98-107 [facility] Basophils (Bld) [#/Vol] 7.7 10*3/uL 4.4-11.0 [facility] Basophils (Bld) [#/Vol] 5.7 10*3/uL 2.0-7.7 [facility] Basophils/100 WBC (Bld) 74.1 % 47-70 [facility] Basophils/100 WBC (Bld) 5.3 % 0-10 [facility] Basophils/100 WBC (Bld) 2.7 % 0-5 [facility] Basophils/100 WBC (Bld) 0.8 % 0-1 [facility] Bilirubin [Mass/Vol] 0.60 mg/dL 0.20-1.00 [facility] Comment on above: For patients on eltr ombopag therapy, use of Dimension [place] TBIL is not recommended. Chloride [Moles/Vol] 109 mmol/L 98-107 [facility] Eosinophils/100 WBC (Bld) 2.7 % 0-5 [facility] Glucose [Mass/Vol] 134 mg/dL 74-106 [facility] Comment on above: Fasting Glucose resu lt greater than or equal to 126 mg/dL suggests DIABETES MELLITUS per A.D.A. criteria. Hemoglobin (Bld) [Mass/Vol] 7.7 g/dL 12.0-15.0 [facility] Monocytes/100 WBC (Bld) 5.3 % 0-10 [facility] Neutrophils (Bld) [#/Vol] 5.7 10*3/uL 2.0-7.7 [facility] Neutrophils/100 WBC (Bld) 74.1 % 47-70 [facility] Potassium [Moles/Vol] 4.4 mmol/L 3.5-5.1 [facility] Protein [Mass/Vol] 6.2 g/dL 6.4-8.2 [facility] Sodium [Moles/Vol] 140 mmol/L 136-145 [facility] WBC (Bld) [#/Vol] 7.7 10*3/uL 4.4-11.0 [facility] Determination of erythrocyte mean corpuscular volume (MCV)Ordered By: Sherry Matta on 06-27-2023 MCV (RBC) [Entitic vol] 92.8 fL 81-99 [facility] Erythrocyte distribution wid th ratioOrdered By: Sherry Matta on 06-27-2023 Erythrocyte distribution width (RBC) [Ratio] 15.8 % 11.6-14.6 [facility] Erythrocyte distribution wid th standard deviationOrdered By: Sherry Matta on 06-27-2023 Erythrocyte distribution width (RBC) [Entitic vol] 54.3 fL 35.1-43.9 [facility] Hematocrit Auto (Bld) [Volum e fraction]Ordered By: Sherry Matta on 06-27-2023 Hematocrit (Bld) [Volume fraction] 25.7 % 37-47 [facility] Immature granulocytes/100 WB C Auto (Bld)Ordered By: Sherry Matta on 06-27-2023 Immature granulocytes/100 WBC (Bld) 0.400 % 0.0-0.9 [facility] Comment on above: IG% - Immature Granu locytes (promyelocytes, myelocytes and metamyelocytes) > 1% indicates that a LEFT SHIFT is Present. Laboratory - Chemistry and C hemistry - challengeOrdered By: Sherry Matta on 06-27-2023 Albumin/Globulin [Mass ratio] 0.8 {ratio} 0.9-2.4 [facility] ALP [Catalytic activity/Vol] 90 U/L 45-117 [facility] ALT [Catalytic activity/Vol] 12 U/L 13-56 [facility] CO2 [Moles/Vol] 25.0 mmol/L 21.0-32.0 [facility] Globulin (S) [Mass/Vol] 3.4 g/dL 2.2-4.2 [facility] Natriuretic peptide B (Bld) [Mass/Vol] 1040.3 pg/mL 0-100 [facility] Urea nitrogen/Creatinine [Mass ratio] 13.2 mg/mg 10-20 [facility] Laboratory - Hematology and Cell countsOrdered By: Sherry Matta on 06-27-2023 MCH (RBC) [Entitic mass] 27.8 pg 27.0-32.0 [facility] MCHC (RBC) [Mass/Vol] 30.0 g/dL 32-36 [facility] Nucleated RBC/100 WBC (Bld) [Ratio] 0 % 0-5 [facility] Platelet mean volume (Bld) [Entitic vol] 10.3 fL 6.2-12.0 [facility] Platelets (Bld) [#/Vol] 301 10*3/uL 150-450 [facility] Laboratory - Microbiology an d Antimicrobial susceptibilityOrdered By: Sherry Matta on 06-27-2023 SARS-CoV-2 (COVID-19) RNA MIKIE+probe Ql (Unsp spec) [facility] No Panel InformationOrdered By: Sherry Matta on 06-27-2023 D-Dimer Quantitative (PE/DVT) 0.95 FEU/ug/m 0.27-0.49 [facility] Comment on above: D-Dimer ELEVATED (>0 .49): Additional studies and clinicalassessments are indicated to conclude diagnosis of:Deep Vein Thrombosis (DVT) or Pulmonary Embolism (PE)CRITICAL VALUE VERIFIED. CALLED TO JACKSON [id number] Birgit Cheney.RESULTS READ BACK BY SAME . 0.95 FEU/ug/m 0.27-0.49 [facility] Estimated Creatinine Clearance Calc 25.52 ml/min [facility] Estimated GFR (MDRD) Amer 42 mL/min >60 [facility] Comment on above: GFR Calc Estimated GFR (MDRD) Non-Af Amer 35 mL/min >60 [facility] Comment on above: Non- GFR Calc Troponin I High Sensitivity 20 pg/mL 3.0-54.0 [facility] Comment on above: Please Note: New Joyce t Units and Gender Specific Reference Ranges. For more information see Policy Stat Procedure [place] High Sensitivity Troponin (TNIH) and attachments. 27.8 pg 27.0-32.0 [facility] 30.0 g/dL 32-36 [facility] 301 K/mm3 150-450 [facility] 10.3 fl 6.2-12.0 [facility] 0 % 0-5 [facility] 35 mL/min >60 [facility] 42 mL/min >60 [facility] 25.52 ml/min [facility] 13.2 RATIO 10-20 [facility] 3.4 g/dL 2.2-4.2 [facility] 0.8 RATIO 0.9-2.4 [facility] 20 pg/mL 3.0-54.0 [facility] 90 U/L 45-117 [facility] 12 U/L 13-56 [facility] 25.0 mmol/L 21.0-32.0 [facility] 1040.3 pg/mL 0-100 [facility] RBC Auto (Bld) [#/Vol]Ordere d By: Sherry Matta on 06-27-2023 RBC (Bld) [#/Vol] 2.77 10*6/uL 4.2-5.4 [facility] Serum or plasma calcium etta urement (mass/volume)Ordered By: Sherry Matta on 06-27-2023 Calcium [Mass/Vol] 8.9 mg/dL 8.5-10.1 [facility] Serum or plasma creatinine m easurement (mass/volume)Ordered By: Sherry Matta on 06-27-2023 Creatinine [Mass/Vol] 1.52 mg/dL 0.55-1.02 [facility] Comment on above: The validity of the calculated GFR & GFRAA in patients over 70 years has not been determined. Clinical correlation is essential. Serum or plasma urea nitroge n measurement (mass/volume)Ordered By: Sherry Matta on 06-27-2023 Urea nitrogen [Mass/Vol] 20 mg/dL 7-18 [facility] Thin prep Papanicolaou smear with manual screeningOrdered By: Sherry Matta on 06-27-2023 Thin prep Papanicolaou smear with manual screening 2.8 g/dL 3.2-5.0 [facility] Thin prep Papanicolaou smear with manual screening 17 U/L 15-37 [facility] Thin prep Papanicolaou smear with manual screening 6 5-15 [facility] Basophil percentageOrdered B y: Ciera Hurst on 06-17-2023 Basophil percentage 7.8 g/dL 12.0-15.0 [facility] Hemoglobin (Bld) [Mass/Vol] 7.8 g/dL 12.0-15.0 [facility] Hematocrit Auto (Bld) [Volum e fraction]Ordered By: Ciera Hurst on 06-17-2023 Hematocrit (Bld) [Volume fraction] 24.6 % 37-47 [facility] Absolute lymphocyte countOrd ered By: Parker Rosenbaum on 06-16-2023 Lymphocytes Auto (Unsp spec) [#/Vol] 1.35 10*3/uL 0.83-4.51 [facility] Automated lymphocyte count a s percentage of total leukocytesOrdered By: Parker Rosenbaum on 06-16-2023 Lymphocytes/100 WBC Auto (Unsp spec) 10.1 % 19-41 [facility] Basophil percentageOrdered B y: Parker Rosenbaum on 06-16-2023 Basophil percentage 88 mg/dL 74-106 [facility] Basophil percentage 5.4 g/dL 6.4-8.2 [facility] Basophil percentage 1.30 mg/dL 0.20-1.00 [facility] Basophil percentage 144 mmol/L 136-145 [facility] Basophil percentage 3.5 mmol/L 3.5-5.1 [facility] Basophil percentage 112 mmol/L 98-107 [facility] Basophils (Bld) [#/Vol] 13.4 10*3/uL 4.4-11.0 [facility] Basophils (Bld) [#/Vol] 10.6 10*3/uL 2.0-7.7 [facility] Basophils/100 WBC (Bld) 79.2 % 47-70 [facility] Basophils/100 WBC (Bld) 7.3 % 0-10 [facility] Basophils/100 WBC (Bld) 2.6 % 0-5 [facility] Basophils/100 WBC (Bld) 0.4 % 0-1 [facility] Bilirubin [Mass/Vol] 1.30 mg/dL 0.20-1.00 [facility] Comment on above: For patients on eltr ombopag therapy, use of Dimension [place] TBIL is not recommended. Chloride [Moles/Vol] 112 mmol/L 98-107 [facility] Eosinophils/100 WBC (Bld) 2.6 % 0-5 [facility] Glucose [Mass/Vol] 88 mg/dL 74-106 [facility] Monocytes/100 WBC (Bld) 7.3 % 0-10 [facility] Neutrophils (Bld) [#/Vol] 10.6 10*3/uL 2.0-7.7 [facility] Neutrophils/100 WBC (Bld) 79.2 % 47-70 [facility] Potassium [Moles/Vol] 3.5 mmol/L 3.5-5.1 [facility] Protein [Mass/Vol] 5.4 g/dL 6.4-8.2 [facility] Sodium [Moles/Vol] 144 mmol/L 136-145 [facility] WBC (Bld) [#/Vol] 13.4 10*3/uL 4.4-11.0 [facility] Determination of erythrocyte mean corpuscular volume (MCV)Ordered By: Parker Rosenbaum on 06-16-2023 MCV (RBC) [Entitic vol] 93.8 fL 81-99 [facility] Erythrocyte distribution wid th ratioOrdered By: Parker Rosenbaum on 06-16-2023 Erythrocyte distribution width (RBC) [Ratio] 15.9 % 11.6-14.6 [facility] Erythrocyte distribution wid th standard deviationOrdered By: Parker Rosenbaum on 06-16-2023 Erythrocyte distribution width (RBC) [Entitic vol] 53.0 fL 35.1-43.9 [facility] Immature granulocytes/100 WB C Auto (Bld)Ordered By: Parker Rosenbaum on 06-16-2023 Immature granulocytes/100 WBC (Bld) 0.400 % 0.0-0.9 [facility] Comment on above: IG% - Immature Granu locytes (promyelocytes, myelocytes and metamyelocytes) > 1% indicates that a LEFT SHIFT is Present. Laboratory - Chemistry and C hemistry - challengeOrdered By: Parker Rosenbaum on 06-16-2023 Albumin/Globulin [Mass ratio] 0.8 {ratio} 0.9-2.4 [facility] ALP [Catalytic activity/Vol] 71 U/L 45-117 [facility] ALT [Catalytic activity/Vol] 13 U/L 13-56 [facility] CO2 [Moles/Vol] 28.0 mmol/L 21.0-32.0 [facility] Globulin (S) [Mass/Vol] 3.0 g/dL 2.2-4.2 [facility] Urea nitrogen/Creatinine [Mass ratio] 18.2 mg/mg 10-20 [facility] Laboratory - Hematology and Cell countsOrdered By: Parker Rosenbaum on 06-16-2023 MCH (RBC) [Entitic mass] 29.0 pg 27.0-32.0 [facility] MCHC (RBC) [Mass/Vol] 31.0 g/dL 32-36 [facility] Nucleated RBC/100 WBC (Bld) [Ratio] 0 % 0-5 [facility] Platelet mean volume (Bld) [Entitic vol] 10.2 fL 6.2-12.0 [facility] Platelets (Bld) [#/Vol] 209 10*3/uL 150-450 [facility] No Panel InformationOrdered By: Parker Rosenbaum on 06-16-2023 Estimated Creatinine Clearance Calc 47.30 ml/min [facility] Estimated GFR (MDRD) Amer 79 mL/min >60 [facility] Comment on above: GFR Calc Estimated GFR (MDRD) Non-Af Amer 65 mL/min >60 [facility] Comment on above: Non- GFR Calc 29.0 pg 27.0-32.0 [facility] 31.0 g/dL 32-36 [facility] 209 K/mm3 150-450 [facility] 10.2 fl 6.2-12.0 [facility] 0 % 0-5 [facility] 65 mL/min >60 [facility] 79 mL/min >60 [facility] 47.30 ml/min [facility] 18.2 RATIO 10-20 [facility] 3.0 g/dL 2.2-4.2 [facility] 0.8 RATIO 0.9-2.4 [facility] 71 U/L 45-117 [facility] 13 U/L 13-56 [facility] 28.0 mmol/L 21.0-32.0 [facility] RBC Auto (Bld) [#/Vol]Ordere d By: Parker Rosenbaum on 06-16-2023 RBC (Bld) [#/Vol] 2.72 10*6/uL 4.2-5.4 [facility] Serum or plasma calcium etta urement (mass/volume)Ordered By: Parker Rosenbaum on 06-16-2023 Calcium [Mass/Vol] 8.3 mg/dL 8.5-10.1 [facility] Serum or plasma creatinine m easurement (mass/volume)Ordered By: Parker Rosenbaum on 06-16-2023 Creatinine [Mass/Vol] 0.88 mg/dL 0.55-1.02 [facility] Comment on above: The validity of the calculated GFR & GFRAA in patients over 70 years has not been determined. Clinical correlation is essential. Serum or plasma urea nitroge n measurement (mass/volume)Ordered By: Parker Rosenbaum on 06-16-2023 Urea nitrogen [Mass/Vol] 16 mg/dL 7-18 [facility] Thin prep Papanicolaou smear with manual screeningOrdered By: Parker Rosenbaum on 06-16-2023 Thin prep Papanicolaou smear with manual screening 2.4 g/dL 3.2-5.0 [facility] Thin prep Papanicolaou smear with manual screening 18 U/L 15-37 [facility] Thin prep Papanicolaou smear with manual screening 4 5-15 [facility] Base excessOrdered By: Deandre Lozano on 06-14-2023 Base excess Calc (BldV) [Moles/Vol] -14 mmol/L -2-2 [facility] Basophil percentageOrdered B y: Deandre Lozano on 06-14-2023 Basophil percentage 14 mmol/L [facility] Basophils/100 WBC (Bld) 95 % 95-99 [facility] Basophil percentage 2.5 mg/dL 2.5-4.9 [facility] Laboratory - Chemistry and C hemistry - challengeOrdered By: Deandre Lozano on 06-14-2023 Magnesium [Mass/Vol] 2.0 mg/dL 1.6-2.6 [facility] Measurement, pHOrdered By: Chevy Lozano on 06-14-2023 pH (Unsp spec) 7.26 [pH] 7.35-7.45 [facility] No Panel InformationOrdered By: Deandre Lozano on 06-14-2023 Troponin I High Sensitivity 248 pg/mL 3.0-54.0 [facility] Comment on above: Critical Result(s) C alled at: 21:32:54 06/14/2023 by: SELINA MOLINA. Results read back by same. Please Note: New Test Units and Gender Specific Reference Ranges. For more information see Policy Stat Procedure [place] High Sensitivity Troponin (TNIH) and attachments. 248 pg/mL 3.0-54.0 [facility] Arterial Blood Partial Pressure CO2 30.2 mmHg 35-45 [facility] Arterial Blood Partial Pressure O2 86 mmHG 75-100 [facility] Blood Gas Bicarbonate Actual 13.4 mmol/L 22-26 [facility] Blood Gas Oxygen Percent 4.0 [facility] Blood Gas Sample Site Not entered [facility] Blood Gas Specimen Type ART [facility] Blood Gas Vent Mode Not entered [facility] Oxygen Delivery Device Cannula [facility] ART [facility] Not entered [facility] Cannula [facility] 4.0 [facility] 30.2 mmHg 35-45 [facility] 86 mmHG 75-100 [facility] 13.4 mmol/L 22-26 [facility] 2.0 mg/dL 1.6-2.6 [facility] Serum or plasma thyroid stim ulating hormone (TSH) measurement (units/volume)Ordered By: Parker Rosenbaum on 06-13-2023 TSH Qn 0.84 uIU/mL 0.358-3.74 [facility] Absolute lymphocyte countOrd ered By: Tino Lewis on 06-12-2023 Lymphocytes Auto (Unsp spec) [#/Vol] 1.48 10*3/uL 0.83-4.51 [facility] Activated partial thrombopla stin time (aPTT) in platelet poor plasma by coagulation aOrdered By: Tino Lewis on 06-12-2023 aPTT Coag (PPP) [Time] 35.3 s 24.1-36.2 [facility] Automated lymphocyte count a s percentage of total leukocytesOrdered By: Tino Lewis on 06-12-2023 Lymphocytes/100 WBC Auto (Unsp spec) 13.5 % 19-41 [facility] Basophil percentageOrdered B y: Tino Lewis on 06-12-2023 Basophil percentage 1.0 mmol/L 0.4-2.0 [facility] Lactate [Moles/Vol] 1.0 mmol/L 0.4-2.0 [facility] Basophils/100 WBC (Bld) 0.3 % 0-1 [facility] Bilirubin [Mass/Vol] 0.50 mg/dL 0.20-1.00 [facility] Comment on above: For patients on eltr ombopag therapy, use of Dimension [place] TBIL is not recommended. Chloride [Moles/Vol] 104 mmol/L 98-107 [facility] Eosinophils/100 WBC (Bld) 1.9 % 0-5 [facility] Glucose [Mass/Vol] 118 mg/dL 74-106 [facility] Comment on above: Fasting Glucose resu lt from 100 to 125 mg/dL suggests IMPAIRED HOMEOSTASIS per A.D.A. criteria. Hemoglobin (Bld) [Mass/Vol] 5.8 g/dL 12.0-15.0 [facility] Comment on above: CRITICAL VALUE VERIF IED. CALLED TO SIXTO RIZVI RN ER06/12/23 1631 Jovi Watson.RESULTS READ BACK BY SAME . Monocytes/100 WBC (Bld) 7.7 % 0-10 [facility] Neutrophils (Bld) [#/Vol] 8.4 10*3/uL 2.0-7.7 [facility] Neutrophils/100 WBC (Bld) 76.3 % 47-70 [facility] Potassium [Moles/Vol] 3.7 mmol/L 3.5-5.1 [facility] Protein [Mass/Vol] 5.6 g/dL 6.4-8.2 [facility] Sodium [Moles/Vol] 136 mmol/L 136-145 [facility] WBC (Bld) [#/Vol] 11.0 10*3/uL 4.4-11.0 [facility] Blood platelet adequacy dete ction by light microscopyOrdered By: Tino Lewis on 06-12-2023 Platelets LM Ql (Bld) ADEQUATE ADEQ [facility] Blood polychromasia detectio n by light microscopyOrdered By: Tino Lewis on 06-12-2023 Polychromasia LM Ql (Bld) RARE [facility] Determination of erythrocyte mean corpuscular volume (MCV)Ordered By: Tino Lewis on 06-12-2023 MCV (RBC) [Entitic vol] 93.8 fL 81-99 [facility] Erythrocyte distribution wid th ratioOrdered By: Tino Lewis on 06-12-2023 Erythrocyte distribution width (RBC) [Ratio] 15.8 % 11.6-14.6 [facility] Erythrocyte distribution wid th standard deviationOrdered By: Tino Lewis on 06-12-2023 Erythrocyte distribution width (RBC) [Entitic vol] 53.3 fL 35.1-43.9 [facility] Hematocrit Auto (Bld) [Volum e fraction]Ordered By: Tino Lewis on 06-12-2023 Hematocrit (Bld) [Volume fraction] 18.0 % 37-47 [facility] Hypochromatic red blood cell detectionOrdered By: Tino Lewis on 06-12-2023 Hypochromia Ql (Bld) 2+ [facility] Immature granulocytes/100 WB C Auto (Bld)Ordered By: Tino Lewis on 06-12-2023 Immature granulocytes/100 WBC (Bld) 0.300 % 0.0-0.9 [facility] Comment on above: IG% - Immature Granu locytes (promyelocytes, myelocytes and metamyelocytes) > 1% indicates that a LEFT SHIFT is Present. Laboratory - Chemistry and C hemistry - challengeOrdered By: Tino Lewis on 06-12-2023 Albumin/Globulin [Mass ratio] 0.9 {ratio} 0.9-2.4 [facility] ALP [Catalytic activity/Vol] 88 U/L 45-117 [facility] ALT [Catalytic activity/Vol] 9 U/L 13-56 [facility] CO2 [Moles/Vol] 23.0 mmol/L 21.0-32.0 [facility] Globulin (S) [Mass/Vol] 2.9 g/dL 2.2-4.2 [facility] Lipase [Catalytic activity/Vol] 45 U/L 13-75 [facility] Comment on above: Please note:LIPASE r evised reference range effective 22. New Lipase methodology. Expected to produce lower values than the previous assay method. NEW Reference Range: 13 - 75 U/L Urea nitrogen/Creatinine [Mass ratio] 24.5 mg/mg 10-20 [facility] Laboratory - CoagulationOrde red By: Tino Lewis on 06-12-2023 INR Coag (Bld) [Relative time] 1.9 {INR} [facility] PT Coag (PPP) [Time] 22.2 s 11.7-14.9 [facility] Laboratory - Hematology and Cell countsOrdered By: Tino Lewis on 06-12-2023 Anisocytosis Ql (Bld) RARE [facility] MCH (RBC) [Entitic mass] 30.2 pg 27.0-32.0 [facility] MCHC (RBC) [Mass/Vol] 32.2 g/dL 32-36 [facility] Nucleated RBC/100 WBC (Bld) [Ratio] 0 % 0-5 [facility] Platelet mean volume (Bld) [Entitic vol] 10.5 fL 6.2-12.0 [facility] Platelets (Bld) [#/Vol] 217 10*3/uL 150-450 [facility] Macrocytes detectionOrdered By: Tino Lewis on 06-12-2023 Macrocytes Ql (Bld) 1+ [facility] No Panel InformationOrdered By: Tino Lewis on 06-12-2023 Digoxin Level 0.66 ng/mL 0.80-2.00 [facility] Estimated Creatinine Clearance Calc 27.35 ml/min [facility] Estimated GFR (MDRD) Amer 45 mL/min >60 [facility] Comment on above: GFR Calc Estimated GFR (MDRD) Non-Af Amer 37 mL/min >60 [facility] Comment on above: Non- GFR Calc RARE [facility] 22.2 SECONDS 11.7-14.9 [facility] 1.9 [facility] 45 U/L 13-75 [facility] 0.66 ng/mL 0.80-2.00 [facility] Ovalocyte detectionOrdered B y: Tino Lewis on 06-12-2023 Ovalocytes LM Ql (Bld) RARE [facility] RBC Auto (Bld) [#/Vol]Ordere d By: Tino Lewis on 06-12-2023 RBC (Bld) [#/Vol] 1.92 10*6/uL 4.2-5.4 [facility] RBC morphologyOrdered By: Omega Augustin on 06-12-2023 RBC morphology finding Nom (Bld) N CHROM NORMAL NORM C&C [facility] Review by pathologistOrdered By: Tino Lewis on 06-12-2023 Pathologist review Edu (Unsp spec) [Interp] Alyssa badillo [facility] Pathologist review Edu (Unsp spec) [Interp] Reviewed [facility] Comment on above: Previous reported re sult: Alyssa badillo Edited by: RGOOD on 06/13/23:1251Severe Normocytic anemia.Clinical correlation necessary.Kadeem Denny M.D. 06/13/23 AMENDED REPORT 06/13/23 1251 PATH REV previously reported as: August Serum or plasma calcium etta urement (mass/volume)Ordered By: Tino Lewis on 06-12-2023 Calcium [Mass/Vol] 7.9 mg/dL 8.5-10.1 [facility] Serum or plasma creatinine m easurement (mass/volume)Ordered By: Tino Lewis on 06-12-2023 Creatinine [Mass/Vol] 1.43 mg/dL 0.55-1.02 [facility] Comment on above: The validity of the calculated GFR & GFRAA in patients over 70 years has not been determined. Clinical correlation is essential. Serum or plasma urea nitroge n measurement (mass/volume)Ordered By: Tino Lewis on 06-12-2023 Urea nitrogen [Mass/Vol] 35 mg/dL 7-18 [facility] Thin prep Papanicolaou smear with manual screeningOrdered By: Tino Lewis on 06-12-2023 Thin prep Papanicolaou smear with manual screening 2.7 g/dL 3.2-5.0 [facility] Thin prep Papanicolaou smear with manual screening 17 U/L 15-37 [facility] Thin prep Papanicolaou smear with manual screening 9 5-15 [facility] Office Visiton 05-21-2023 Follow-up visit [id number] Neto Quiñones 1940 F Date Provider Department Center 05/21/2023 [facility] [address] Family History Problem Relation Age of Onset Heart disease Father Family Status - Relation Status Age at Father Level of Service:22188 [place] OFFICE/OUTPATIENT NEW MODERATE MDM 45 MINUTES Reason for Visit and Comments: New Patient [542] Normal [facility] Progress Noteon 05-21-[address] [facility] Cardiology Note Chief Complaint: Chief Complaint Patient presents with New Patient History of Present Illness: Dayana Quiñones is a 83 y.o. female presenting for evaluation for possible upgrade of of her a dual-chamber pacemaker. Is a very pleasant woman presenting in the company of one of her daughters. Extensive records are reviewed. She has history of coronary artery disease status postmyocardial infarction in October 2018. Ejection fraction has been around 30% since then on excellent medical therapy. She also had a second-degree AV block underwent dual-chamber pacemaker implantation upon which she is now dependent. This is a Asantae device. She underwent cardiac catheterization demonstrating distal left main disease and three-vessel disease with an ejection fraction still at 30%. She underwent bypass grafting x 2 with PEDRAZA to LAD and SVG to OM1 in November 2022. She had mitral valve repair and left atrial appendage ligation. She spent 16 days in the hospital after this surgery. In February of last year she was admitted and her ejection fraction was found to be 10 to 15% by echocardiography. At that point she was given a LifeVest. There is been no lightheadedness presyncope or syncope. She feels much better off of the metoprolol succinate and on Entresto. She denies lower extremity edema. She has paroxysmal atrial fibrillation and on Eliquis. Since May 01 she has felt much better denying congestive heart failure symptoms. 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 Chronic kidney disease GERD (gastroesophageal reflux disease) Hypertension Ischemic cardiomyopathy Mobitz type II atrioventricular block STEMI (ST elevation myocardial infarction) ([facility]) 11/16/2018 Stroke ([facility]) Vertigo Past Surgical History Past Surgical History: Procedure Laterality Date BACK SURGERY fusion CARDIAC PACEMAKER PLACEMENT 08/02/2018 CORONARY STENT PLACEMENT 12/19/2018 total of 4 on different occasions Family History Family History Problem Relation Name Age of Onset Heart disease Father Social History Social History Tobacco Use Smoking status: Former Years: 10 Types: Cigarettes Quit date: 1968 Years since quittin.0 Smokeless tobacco: Never Vaping Use Vaping Use: Never used Substance Use Topics Alcohol use: Never Drug use: Never Allergies: Allergies Allergen Reactions Morphine Other reaction(s): GI Upset, Vomiting vomiting Medications: Current Outpatient Medications: acyclovir (Zovirax) 800 MG tablet, Take 800 mg by mouth daily., Disp: , Rfl: apixaban (Eliquis) 5 MG tablet, Take 5 mg by mouth 2 times daily., Disp: , Rfl: aspirin 81 MG EC tablet, Take 81 mg by mouth in the morning., Disp: , Rfl: atorvastatin (Lipitor) 20 MG tablet, Take 20 mg by mouth Nightly., Disp: , Rfl: dapagliflozin (Farxiga) 10 MG, Take 10 mg by mouth daily (with breakfast)., Disp: , Rfl: difluprednate (Durezol) 0.05 % ophthalmic solution, Administer 1 drop into the left eye every other day., Disp: , Rfl: ERYTHROMYCIN EX, Apply topically. Ointement for eye, Disp: , Rfl: furosemide (Lasix) 40 MG tablet, Take 1 tablet (40 mg) by mouth daily. Hold for 3 days, restart to take daily on 01/02/23., Disp: 30 tablet, Rfl: 2 NON FORMULARY, Eye health complex, Disp: , Rfl: omeprazole (PriLOSEC) [address] capsule, Take 40 mg by mouth in the morning., Disp: , Rfl: sacubitril-valsartan (Entresto) 24-26 MG tablet, Take 1 tablet by mouth 2 times daily., Disp: 60 tablet, Rfl: 1 metoprolol succinate XL (Toprol-XL) 25 MG 24 hr tablet, Take 1 tablet (25 mg) by mouth daily. Do not crush or chew., Disp: 30 tablet, Rfl: 2 spironolactone (Aldactone) 25 MG tablet, Take 1 tablet (25 mg) by mouth daily. Do not start before December 31, 2022. (Patient not taking: Reported on 05/21/2023), Disp: 30 tablet, Rfl: 2 timolol (Timoptic) 0.5 % ophthalmic solution, Administer 1 drop into the left eye in the morning and 1 drop in the evening., Disp: , Rfl: Review of Systems: Review of Systems Constitutional: Negative. Negative for activity change, chills, diaphoresis, fatigue and fever. HENT: Negative. Negative for nosebleeds and trouble swallowing. Eyes: Negative. Negative for discharge and visual disturbance. Respiratory: Positive for shortness of breath. Negative for apnea, cough, chest tightness and wheezing. Cardiovascular: Negative. Negative for chest pain, palpitations and leg swelling. Gastrointestinal: Negative. Negative for abdominal distention, abdominal pain, blood in stool, diarrhea, nausea and vomiting. Endocrine: Negative. Negative for cold intolerance and heat intolerance. Genitourinary: Negative. Negative for hematuria. Musculoskeletal: Negative. Negative for gait problem and myalgias. Skin: Negative. Neg (more content not included)... Normal [facility] Laboratory - Chemistry and C hemistry - challengeOrdered By: Kinga Eubanks on 05-01-2023 Natriuretic peptide B (Bld) [Mass/Vol] 2581.7 pg/mL 0-100 [facility] No Panel InformationOrdered By: Kinga Eubanks on 05-01-2023 2581.7 pg/mL 0-100 [facility] Comprehensive metabolic 2000 panelon 04-04-2023 Albumin [Mass/Vol] 3.9 g/dL 3.9 - 4.9 g/dL [facility] ALP [Catalytic activity/Vol] 103 U/L 34 - 123 U/L [facility] ALT [Catalytic activity/Vol] 17 U/L 7 - 38 U/L [facility] Anion gap [Moles/Vol] 12 mmol/L 9 - 18 mmol/L [facility] AST [Catalytic activity/Vol] 25 U/L 13 - 35 U/L [facility] Bilirubin [Mass/Vol] 1.0 mg/dL 0.2 - 1 .3 mg/dL [facility] Calcium [Mass/Vol] 9.5 mg/dL 8.5 - 10. 2 mg/dL [facility] Chloride [Moles/Vol] 102 mmol/L 97 - 10 5 mmol/L [facility] CO2 [Moles/Vol] 23 mmol/L 22 - 30 mmol/L [facility] Creatinine [Mass/Vol] 1.49 mg/dL High 0.58 - 0.96 mg/dL [facility] Estimated Glomerular Filtration Rate 34 mL/min/1.73m Low >=60 mL/min/1.73 m [facility] Glucose [Mass/Vol] 80 mg/dL 74 - 99 mg/dL [facility] Potassium [Moles/Vol] 4.6 mmol/L 3.7 - 5.1 mmol/L [facility] Protein [Mass/Vol] 7.2 g/dL 6.3 - 8.0 [facility] Sodium [Moles/Vol] 137 mmol/L 136 - 144 [facility] Urea nitrogen [Mass/Vol] 27 mg/dL High 7 - 21 mg/dL [facility] Basophil percentageOrdered B y: Deandre Lozano on 03-19-2023 Basophil percentage 94 mg/dL 74-106 [facility] Basophil percentage 141 mmol/L 136-145 [facility] Basophil percentage 3.7 mmol/L 3.5-5.1 [facility] Basophil percentage 106 mmol/L 98-107 [facility] Chloride [Moles/Vol] 106 mmol/L 98-107 [facility] Glucose [Mass/Vol] 94 mg/dL 74-106 [facility] Potassium [Moles/Vol] 3.7 mmol/L 3.5-5.1 [facility] Sodium [Moles/Vol] 141 mmol/L 136-145 [facility] Laboratory - Chemistry and C hemistry - challengeOrdered By: Deandre Lozano on 03-19-2023 CO2 [Moles/Vol] 26.0 mmol/L 21.0-32.0 [facility] Urea nitrogen/Creatinine [Mass ratio] 22.8 mg/mg 02-16 [facility] No Panel InformationOrdered By: Deandre Lozano on 03-19-2023 Estimated Creatinine Clearance Calc 27.28 ml/min [facility] Estimated GFR (MDRD) Amer 52 mL/min >60 [facility] Comment on above: GFR Calc Estimated GFR (MDRD) Non-Af Amer 43 mL/min >60 [facility] Comment on above: Non- GFR Calc 43 mL/min >60 [facility] 52 mL/min >60 [facility] 27.28 ml/min [facility] 22.8 RATIO 02-16 [facility] 26.0 mmol/L 21.0-32.0 [facility] Serum or plasma calcium etta urement (mass/volume)Ordered By: Deandre Lozano on 03-19-2023 Calcium [Mass/Vol] 8.7 mg/dL 8.5-10.1 [facility] Serum or plasma creatinine m easurement (mass/volume)Ordered By: Deandre Lozano on 03-19-2023 Creatinine [Mass/Vol] 1.27 mg/dL 0.55-1.02 [facility] Comment on above: The validity of the calculated GFR & GFRAA in patients over 70 years has not been determined. Clinical correlation is essential. Serum or plasma urea nitroge n measurement (mass/volume)Ordered By: Deandre Lozano on 03-19-2023 Urea nitrogen [Mass/Vol] 29 mg/dL -18 [facility] Thin prep Papanicolaou smear with manual screeningOrdered By: Deandre Lozano on 03-19-2023 Thin prep Papanicolaou smear with manual screening 9 5-15 [facility] Absolute lymphocyte countOrd ered By: Willa Garcia on 03-17-2023 Lymphocytes Auto (Unsp spec) [#/Vol] 1.53 10*3/uL 0.83-4.51 [facility] Basophil percentageOrdered B y: Willa Garcia on 03-17-2023 Basophil percentage 6.5 g/dL 6.4-8.2 [facility] Basophil percentage 1.10 mg/dL 0.20-1.00 [facility] Basophil percentage 73 mg/dL <200 [facility] Basophil percentage 67 mg/dL <199 [facility] Basophils (Bld) [#/Vol] 8.6 10*3/uL 4.4-11.0 [facility] Basophils (Bld) [#/Vol] 6.2 10*3/uL 2.0-7.7 [facility] Basophils/100 WBC (Bld) 0.6 % 0-1 [facility] Basophils/100 WBC (Bld) 72.4 % 47-70 [facility] Basophils/100 WBC (Bld) 2.4 % 0-5 [facility] Bilirubin [Mass/Vol] 1.10 mg/dL 0.20-1.00 [facility] Comment on above: For patients on eltr ombopag therapy, use of Dimension [place] TBIL is not recommended. Chloride [Moles/Vol] 105 mmol/L 98-107 [facility] Cholesterol [Mass/Vol] 73 mg/dL <200 [facility] Comment on above: <200 mg/dL Desirable 200-240 mg/dL Borderline >240 mg/dL High Risk Eosinophils/100 WBC (Bld) 2.4 % 0-5 [facility] Glucose [Mass/Vol] 102 mg/dL 74-106 [facility] Comment on above: Fasting Glucose resu lt from 100 to 125 mg/dL suggests IMPAIRED HOMEOSTASIS per A.D.A. criteria. Neutrophils (Bld) [#/Vol] 6.2 10*3/uL 2.0-7.7 [facility] Neutrophils/100 WBC (Bld) 72.4 % 47-70 [facility] Potassium [Moles/Vol] 3.4 mmol/L 3.5-5.1 [facility] Protein [Mass/Vol] 6.5 g/dL 6.4-8.2 [facility] Sodium [Moles/Vol] 139 mmol/L 136-145 [facility] Triglyceride [Mass/Vol] 67 mg/dL <199 [facility] Comment on above: The drugs N-Acetylcy steine and Metamizole may falsely depress this assay.Serum Triglycerides Reference Interval Normal <150 mg/dL Borderline high 150 - 199 mg/dL High 200 - 499 mg/dL Very High > or = 500 mg/dL WBC (Bld) [#/Vol] 8.6 10*3/uL 4.4-11.0 [facility] Blood erythrocytes count (nu mber/volume)Ordered By: Willa Garcia on 03-17-2023 RBC (Bld) [#/Vol] 3.67 10*6/uL 4.2-5.4 [facility] Blood hemoglobin measurement (mass/volume)Ordered By: Willa Garcia on 03-17-2023 Hemoglobin (Bld) [Mass/Vol] 11.1 g/dL 12.0-15.0 [facility] Blood lymphocytes/100 leukoc ytesOrdered By: Willa Garcia on 03-17-2023 Lymphocytes/100 WBC (Bld) 17.8 % 19-41 [facility] Blood monocytes/100 leukocyt esOrdered By: Willa Garcia on 03-17-2023 Monocytes/100 WBC (Bld) 6.6 % 0-10 [facility] Blood platelet mean volumeOr dered By: Willa Garcia on 03-17-2023 Platelet mean volume (Bld) [Entitic vol] 11.7 fL 6.2-12.0 [facility] Determination of erythrocyte mean corpuscular volume (MCV)Ordered By: Willa Garcia on 03-17-2023 MCV (RBC) [Entitic vol] 97.5 fL 81-99 [facility] Comment on above: Delta: 92.8 on 03/16-1315 Hematocrit Auto (Bld) [Volum e fraction]Ordered By: Willa Garcia on 03-17-2023 Hematocrit (Bld) [Volume fraction] 35.8 % 37-47 [facility] Laboratory - Chemistry and C hemistry - challengeOrdered By: Willa Garcia on 03-17-2023 ALP [Catalytic activity/Vol] 136 U/L 45-117 [facility] ALT [Catalytic activity/Vol] 44 U/L 13-56 [facility] CO2 [Moles/Vol] 27.0 mmol/L 21.0-32.0 [facility] Globulin (S) [Mass/Vol] 3.5 g/dL 2.2-4.2 [facility] Urea nitrogen/Creatinine [Mass ratio] 15.9 mg/mg 10-20 [facility] Laboratory - Hematology and Cell countsOrdered By: Willa Garcia on 03-17-2023 Erythrocyte distribution width (RBC) [Entitic vol] 55.3 fL 35.1-43.9 [facility] Erythrocyte distribution width (RBC) [Ratio] 15.6 % 11.6-14.6 [facility] Immature granulocytes/100 WBC (Bld) 0.200 % 0.0-0.9 [facility] Comment on above: IG% - Immature Granu locytes (promyelocytes, myelocytes and metamyelocytes) > 1% indicates that a LEFT SHIFT is Present. MCH (RBC) [Entitic mass] 30.2 pg 27.0-32.0 [facility] Nucleated RBC/100 WBC (Bld) [Ratio] 0 % 0-5 [facility] MCHC Auto (RBC) [Mass/Vol]Or dered By: Willa Garcia on 03-17-2023 MCHC (RBC) [Mass/Vol] 31.0 g/dL 32-36 [facility] Comment on above: Delta: 33.5 on 03/16-5 No Panel InformationOrdered By: Willa Garcia on 03-17-2023 Estimated Creatinine Clearance Calc 25.10 ml/min [facility] Estimated GFR (MDRD) Amer 47 mL/min >60 [facility] Comment on above: GFR Calc Estimated GFR (MDRD) Non-Af Amer 39 mL/min >60 [facility] Comment on above: Non- GFR Calc Thyroid Stimulating Hormone (TSH) 1.06 uIU/mL 0.358-3.74 [facility] Troponin I High Sensitivity 24 pg/mL 3.0-54.0 [facility] Comment on above: Please Note: New [place] t Units and Gender Specific Reference Ranges. For more information see Policy Stat Procedure [place] High Sensitivity Troponin (TNIH) and attachments. 30.2 pg 27.0-32.0 [facility] 15.6 % 11.6-14.6 [facility] 55.3 fl 35.1-43.9 [facility] 0.200 % 0.0-0.9 [facility] 0 % 0-5 [facility] 3.5 g/dL 2.2-4.2 [facility] 24 pg/mL 3.0-54.0 [facility] 136 U/L 45-117 [facility] 44 U/L 13-56 [facility] 1.06 uIU/mL 0.358-3.74 [facility] Platelets bldOrdered By: Nicole Garcia on 03-17-2023 Platelets (Bld) [#/Vol] 165 10*3/uL 150-450 [facility] Serum or plasma albumin etta urement (mass/volume)Ordered By: Willa Garcia on 03-17-2023 Albumin [Mass/Vol] 3.0 g/dL 3.2-5.0 [facility] Serum or plasma albumin/glob ulin mass ratioOrdered By: Willa Garcia on 03-17-2023 Albumin/Globulin [Mass ratio] 0.9 {ratio} 0.9-2.4 [facility] Serum or plasma calcium etta urement (mass/volume)Ordered By: Willa Garcia on 03-17-2023 Calcium [Mass/Vol] 7.9 mg/dL 8.5-10.1 [facility] Serum or plasma cholesterol in HDL measurement (mass/volume)Ordered By: Willa Radha on 03-17-2023 Cholesterol in HDL [Mass/Vol] 38 mg/dL >40 [facility] Comment on above: The drugs N-Acetylcy steine and Metamizole may falsely depress this assay. Reference Range HDL <40 mg/dL Low HDL Cholesterol HDL >or= 60 mg/dL High HDL Cholesterol Serum or plasma cholesterol in VLDL measurement (mass/volume)Ordered By: Willa Garcia on 03-17-2023 Cholesterol in VLDL [Mass/Vol] 13 mg/dL 5-40 [facility] Serum or plasma creatinine m easurement (mass/volume)Ordered By: Willa Radha on 03-17-2023 Creatinine [Mass/Vol] 1.38 mg/dL 0.55-1.02 [facility] Comment on above: The validity of the calculated GFR & GFRAA in patients over 70 years has not been determined. Clinical correlation is essential. Serum or plasma low density lipoprotein (LDL) cholesterol measurement (mass/volume)Ordered By: Willa Radha on 03-17-2023 Cholesterol in LDL [Mass/Vol] 22 mg/dL 0-130 [facility] Serum or plasma urea nitroge n measurement (mass/volume)Ordered By: [facility] Radha on 03-17-2023 Urea nitrogen [Mass/Vol] 22 mg/dL 7-18 [facility] Thin prep Papanicolaou smear with manual screeningOrdered By: [facility] Radha on 03-17-2023 Thin prep Papanicolaou smear with manual screening 44 U/L 15-37 [facility] Thin prep Papanicolaou smear with manual screening 7 5-15 [facility] Absolute lymphocyte countOrd ered By: Sherry Matta on 03-16-2023 Lymphocytes Auto (Unsp spec) [#/Vol] 1.59 10*3/uL 0.83-4.51 [facility] Basophil percentageOrdered B y: Sherry Matta on 03-16-2023 Basophils/100 WBC (Bld) 0.3 % 0-1 [facility] Chloride [Moles/Vol] 103 mmol/L 98-107 [facility] Eosinophils/100 WBC (Bld) 1.2 % 0-5 [facility] Glucose [Mass/Vol] 109 mg/dL 74-106 [facility] Comment on above: Fasting Glucose resu lt from 100 to 125 mg/dL suggests IMPAIRED HOMEOSTASIS per A.D.A. criteria. Neutrophils (Bld) [#/Vol] 6.6 10*3/uL 2.0-7.7 [facility] Neutrophils/100 WBC (Bld) 73.8 % 47-70 [facility] Potassium [Moles/Vol] 2.8 mmol/L 3.5-5.1 [facility] Sodium [Moles/Vol] 140 mmol/L 136-145 [facility] WBC (Bld) [#/Vol] 9.0 10*3/uL 4.4-11.0 [facility] Blood erythrocytes count (nu mber/volume)Ordered By: Sherry Matta on 03-16-2023 RBC (Bld) [#/Vol] 3.73 10*6/uL 4.2-5.4 [facility] Blood hemoglobin measurement (mass/volume)Ordered By: hSerry Matta on 03-16-2023 Hemoglobin (Bld) [Mass/Vol] 11.6 g/dL 12.0-15.0 [facility] Blood lymphocytes/100 leukoc ytesOrdered By: Sherry Matta on 03-16-2023 Lymphocytes/100 WBC (Bld) 17.7 % 19-41 [facility] Blood monocytes/100 leukocyt esOrdered By: Sherry Matta on 03-16-2023 Monocytes/100 WBC (Bld) 6.6 % 0-10 [facility] Blood platelet mean volumeOr dered By: Sherry Matta on 03-16-2023 Platelet mean volume (Bld) [Entitic vol] 11.8 fL 6.2-12.0 [facility] Determination of erythrocyte mean corpuscular volume (MCV)Ordered By: Sherry Matta on 03-16-2023 MCV (RBC) [Entitic vol] 92.8 fL 81-99 [facility] Hematocrit Auto (Bld) [Volum e fraction]Ordered By: Sherry Matta on 03-16-2023 Hematocrit (Bld) [Volume fraction] 34.6 % 37-47 [facility] Laboratory - Chemistry and C hemistry - challengeOrdered By: Sherry Matta on 03-16-2023 Magnesium [Mass/Vol] 2.1 mg/dL 1.6-2.6 [facility] CO2 [Moles/Vol] 26.0 mmol/L 21.0-32.0 [facility] Natriuretic peptide B (Bld) [Mass/Vol] 1513.1 pg/mL 0-100 [facility] Urea nitrogen/Creatinine [Mass ratio] 16.2 mg/mg 10-20 [facility] Laboratory - Hematology and Cell countsOrdered By: Sherry Matta on 03-16-2023 Erythrocyte distribution width (RBC) [Entitic vol] 52.0 fL 35.1-43.9 [facility] Erythrocyte distribution width (RBC) [Ratio] 15.3 % 11.6-14.6 [facility] Immature granulocytes/100 WBC (Bld) 0.400 % 0.0-0.9 [facility] Comment on above: IG% - Immature Granu locytes (promyelocytes, myelocytes and metamyelocytes) > 1% indicates that a LEFT SHIFT is Present. MCH (RBC) [Entitic mass] 31.1 pg 27.0-32.0 [facility] Nucleated RBC/100 WBC (Bld) [Ratio] 0 % 0-5 [facility] MCHC Auto (RBC) [Mass/Vol]Or dered By: Sherry Matta on 03-16-2023 MCHC (RBC) [Mass/Vol] 33.5 g/dL 32-36 [facility] Comment on above: Delta: 31.8 on 03/14-1640 No Panel InformationOrdered By: Sherry Matta on 03-16-2023 2.1 mg/dL 1.6-2.6 [facility] Estimated Creatinine Clearance Calc 23.41 ml/min [facility] Estimated GFR (MDRD) Amer 43 mL/min >60 [facility] Comment on above: GFR Calc Estimated GFR (MDRD) Non-Af Amer 36 mL/min >60 [facility] Comment on above: Non- GFR Calc 1513.1 pg/mL 0-100 [facility] Platelets bldOrdered By: Delicia Matta on 03-16-2023 Platelets (Bld) [#/Vol] 182 10*3/uL 150-450 [facility] Serum or plasma calcium etta urement (mass/volume)Ordered By: Sherry Matta on 03-16-2023 Calcium [Mass/Vol] 8.1 mg/dL 8.5-10.1 [facility] Serum or plasma creatinine m easurement (mass/volume)Ordered By: Sherry Matta on 03-16-2023 Creatinine [Mass/Vol] 1.48 mg/dL 0.55-1.02 [facility] Comment on above: The validity of the calculated GFR & GFRAA in patients over 70 years has not been determined. Clinical correlation is essential. Serum or plasma urea nitroge n measurement (mass/volume)Ordered By: Sherry Matta on 03-16-2023 Urea nitrogen [Mass/Vol] 24 mg/dL 7-18 [facility] Thin prep Papanicolaou smear with manual screeningOrdered By: Sherry Matta on 03-16-2023 Thin prep Papanicolaou smear with manual screening 11 - [facility] Absolute lymphocyte countOrd ered By: Sherry Matta on 03-14-2023 Lymphocytes Auto (Unsp spec) [#/Vol] 1.63 10*3/uL 0.83-4.51 [facility] Basophil percentageOrdered B y: Sherry Matta on 03-14-2023 Basophil percentage 0-5 SEEN /hpf 0-5 [facility] Basophil percentage 104 mg/dL 74-106 [facility] Basophil percentage 143 mmol/L 136-145 [facility] Basophil percentage 3.5 mmol/L 3.5-5.1 [facility] Basophil percentage 106 mmol/L 98-107 [facility] Basophils (Bld) [#/Vol] 8.6 10*3/uL 4.4-11.0 [facility] Basophils (Bld) [#/Vol] 6.2 10*3/uL 2.0-7.7 [facility] Basophils/100 WBC (Bld) 0.5 % 0-1 [facility] Basophils/100 WBC (Bld) 71.5 % 47-70 [facility] Basophils/100 WBC (Bld) 1.7 % 0-5 [facility] Chloride [Moles/Vol] 106 mmol/L 98-107 [facility] Eosinophils/100 WBC (Bld) 1.7 % 0-5 [facility] Glucose [Mass/Vol] 104 mg/dL 74-106 [facility] Comment on above: Fasting Glucose resu lt from 100 to 125 mg/dL suggests IMPAIRED HOMEOSTASIS per A.D.A. criteria. Neutrophils (Bld) [#/Vol] 6.2 10*3/uL 2.0-7.7 [facility] Neutrophils/100 WBC (Bld) 71.5 % 47-70 [facility] Potassium [Moles/Vol] 3.5 mmol/L 3.5-5.1 [facility] Sodium [Moles/Vol] 143 mmol/L 136-145 [facility] WBC (Bld) [#/Vol] 8.6 10*3/uL 4.4-11.0 [facility] Bilirubin Test strip Ql (U)O rdered By: Sherry Matta on 03-14-2023 Bilirubin Ql (U) Negative Negative [facility] Blood erythrocytes count (nu mber/volume)Ordered By: Sherry Matta on 03-14-2023 RBC (Bld) [#/Vol] 3.74 10*6/uL 4.2-5.4 [facility] Blood hemoglobin measurement (mass/volume)Ordered By: Sherry Matta on 03-14-2023 Hemoglobin (Bld) [Mass/Vol] 11.2 g/dL 12.0-15.0 [facility] Blood lymphocytes/100 leukoc ytesOrdered By: Sherry Matta on 03-14-2023 Lymphocytes/100 WBC (Bld) 18.9 % 19-41 [facility] Blood monocytes/100 leukocyt esOrdered By: Sherry Matta on 03-14-2023 Monocytes/100 WBC (Bld) 6.9 % 0-10 [facility] Blood platelet mean volumeOr dered By: Sherry Matta on 03-14-2023 Platelet mean volume (Bld) [Entitic vol] 11.2 fL 6.2-12.0 [facility] Culture, urineOrdered By: Betito Matta on 03-14-2023 Bacteria identified Cx Nom (U) Culture exhibits no growth. [facility] Determination of erythrocyte mean corpuscular volume (MCV)Ordered By: Sherry Matta on 03-14-2023 MCV (RBC) [Entitic vol] 94.1 fL 81-99 [facility] Hematocrit Auto (Bld) [Volum e fraction]Ordered By: Sherry Matta on 03-14-2023 Hematocrit (Bld) [Volume fraction] 35.2 % 37-47 [facility] Ketones Test strip Ql (U)Ord ered By: Sherry Matta on 03-14-2023 Ketones Ql (U) Negative Negative [facility] Laboratory - Chemistry and C hemistry - challengeOrdered By: Sherry Matta on 03-14-2023 CO2 [Moles/Vol] 27.0 mmol/L 21.0-32.0 [facility] Natriuretic peptide B (Bld) [Mass/Vol] 1419.1 pg/mL 0-100 [facility] Urea nitrogen/Creatinine [Mass ratio] 16.4 mg/mg 10-20 [facility] Laboratory - Hematology and Cell countsOrdered By: Sherry Matta on 03-14-2023 Erythrocyte distribution width (RBC) [Entitic vol] 53.0 fL 35.1-43.9 [facility] Erythrocyte distribution width (RBC) [Ratio] 15.4 % 11.6-14.6 [facility] Immature granulocytes/100 WBC (Bld) 0.500 % 0.0-0.9 [facility] Comment on above: IG% - Immature Granu locytes (promyelocytes, myelocytes and metamyelocytes) > 1% indicates that a LEFT SHIFT is Present. MCH (RBC) [Entitic mass] 29.9 pg 27.0-32.0 [facility] Nucleated RBC/100 WBC (Bld) [Ratio] 0 % 0-5 [facility] MCHC Auto (RBC) [Mass/Vol]Or dered By: Sherry Matta on 03-14-2023 MCHC (RBC) [Mass/Vol] 31.8 g/dL 32-36 [facility] Mucus LM Ql (Urine sed)Order ed By: Sherry Matta on 03-14-2023 Mucus Ql (Urine sed) 0 SEEN /hpf [facility] Nitrite Test strip Ql (U)Ord ered By: Sherry Matta on 03-14-2023 Nitrite Ql (U) Negative Negative [facility] No Panel InformationOrdered By: Sherry Matta on 03-14-2023 Estimated GFR (MDRD) Amer 44 mL/min >60 [facility] Comment on above: GFR Calc Estimated GFR (MDRD) Non-Af Amer 36 mL/min >60 [facility] Comment on above: Non- GFR Calc Troponin I High Sensitivity 28 pg/mL 3.0-54.0 [facility] Comment on above: Please Note: [place] t Units and Gender Specific Reference Ranges. For more information see Policy Stat Procedure [place] High Sensitivity Troponin (TNIH) and attachments. 29.9 pg 27.0-32.0 [facility] 15.4 % 11.6-14.6 [facility] 53.0 fl 35.1-43.9 [facility] 0.500 % 0.0-0.9 [facility] 0 % 0-5 [facility] 36 mL/min >60 [facility] 44 mL/min >60 [facility] 16.4 RATIO 10-20 [facility] 28 pg/mL 3.0-54.0 [facility] 27.0 mmol/L 21.0-32.0 [facility] 1419.1 pg/mL 0-100 [facility] Platelets bldOrdered By: Delicia Matta on 03-14-2023 Platelets (Bld) [#/Vol] 183 10*3/uL 150-450 [facility] Protein Test strip Ql (U)Ord ered By: Sherry Matta on 03-14-2023 Protein Ql (U) 15 mg/dl Negative [facility] Serum or plasma calcium etta urement (mass/volume)Ordered By: Sherry Matta on 03-14-2023 Calcium [Mass/Vol] 7.4 mg/dL 8.5-10.1 [facility] Serum or plasma creatinine m easurement (mass/volume)Ordered By: Sherry Matta on 03-14-2023 Creatinine [Mass/Vol] 1.46 mg/dL 0.55-1.02 [facility] Comment on above: The validity of the calculated GFR & GFRAA in patients over 70 years has not been determined. Clinical correlation is essential. Serum or plasma urea nitroge n measurement (mass/volume)Ordered By: Sherry Matta on 03-14-2023 Urea nitrogen [Mass/Vol] 24 mg/dL 7-18 [facility] Squamous epithelial cells de tection in urine sediment by light microscopyOrdered By: Sherry Matta on 11-15-2023 Epithelial cells.squamous LM Ql (Urine sed) 0-5 SEEN /hpf 5-10 [facility] Thin prep Papanicolaou smear with manual screeningOrdered By: Sherry Matta on 03-14-2023 Thin prep Papanicolaou smear with manual screening 10 - [facility] Urine blood detectionOrdered By: Sherry Matta on 03-14-2023 RBC Ql (U) 10 /ul Negative [facility] RBC Ql (U) 0 SEEN /hpf 0-5 [facility] Urine clarityOrdered By: Delicia Matta on 03-14-2023 Clarity (U) Clear Clear [facility] Urine color determinationOrd ered By: Sheryr Matta on 03-14-2023 Color (U) Yellow Yellow [facility] Urine glucose detectionOrder ed By: Sherry Matta on 03-14-2023 Glucose Ql (U) 250 mg/dl Normal [facility] Urine leukocyte esterase det ection by dipstickOrdered By: Sherry Matta on 03-14-2023 Leukocyte esterase Test strip Ql (U) 100 /ul Negative [facility] Urine pHOrdered By: Sherry diego on 03-14-2023 pH (U) 6.0 [pH] 5.0 - 8.0 [facility] Urine sediment bacteria coun t by microscopy (number/high power field)Ordered By: Sherry Matta on 03-14-2023 Bacteria LM.HPF (Urine sed) [#/Area] 0 /[HPF] None Seen [facility] Urine specific gravity measu rementOrdered By: Sherry Matta on 03-14-2023 Specific gravity (U) [Rel density] 1.010 1.002-1.030 [facility] Urobilinogen Auto test strip Ql (U)Ordered By: Sherry Matta on 03-14-2023 Urobilinogen Ql (U) Normal mg/dl Normal [facility] Absolute lymphocyte countOrd ered By: Yumiko Mejias on 03-13-2023 Lymphocytes Auto (Unsp spec) [#/Vol] 1.61 10*3/uL 0.83-4.51 [facility] Basophil percentageOrdered B y: Yumiko Mejias on 03-13-2023 Basophil percentage 130 mg/dL 74-106 [facility] Basophil percentage 7.0 g/dL 6.4-8.2 [facility] Basophil percentage 1.00 mg/dL 0.20-1.00 [facility] Basophil percentage 139 mmol/L 136-145 [facility] Basophil percentage 3.2 mmol/L 3.5-5.1 [facility] Basophil percentage 105 mmol/L 98-107 [facility] Basophils (Bld) [#/Vol] 9.4 10*3/uL 4.4-11.0 [facility] Basophils (Bld) [#/Vol] 7.0 10*3/uL 2.0-7.7 [facility] Basophils/100 WBC (Bld) 0.4 % 0-1 [facility] Basophils/100 WBC (Bld) 73.9 % 47-70 [facility] Basophils/100 WBC (Bld) 1.7 % 0-5 [facility] Bilirubin [Mass/Vol] 1.00 mg/dL 0.20-1.00 [facility] Comment on above: For patients on eltr ombopag therapy, use of Dimension [place] TBIL is not recommended. Chloride [Moles/Vol] 105 mmol/L 98-107 [facility] Eosinophils/100 WBC (Bld) 1.7 % 0-5 [facility] Glucose [Mass/Vol] 130 mg/dL 74-106 [facility] Comment on above: Fasting Glucose resu lt greater than or equal to 126 mg/dL suggests DIABETES MELLITUS per A.D.A. criteria. Neutrophils (Bld) [#/Vol] 7.0 10*3/uL 2.0-7.7 [facility] Neutrophils/100 WBC (Bld) 73.9 % 47-70 [facility] Potassium [Moles/Vol] 3.2 mmol/L 3.5-5.1 [facility] Protein [Mass/Vol] 7.0 g/dL 6.4-8.2 [facility] Sodium [Moles/Vol] 139 mmol/L 136-145 [facility] WBC (Bld) [#/Vol] 9.4 10*3/uL 4.4-11.0 [facility] Blood erythrocytes count (nu mber/volume)Ordered By: Yumiko Mejias on 03-13-2023 RBC (Bld) [#/Vol] 3.79 10*6/uL 4.2-5.4 [facility] Blood hemoglobin measurement (mass/volume)Ordered By: Yumiko Mejias on 03-13-2023 Hemoglobin (Bld) [Mass/Vol] 11.4 g/dL 12.0-15.0 [facility] Blood lymphocytes/100 leukoc ytesOrdered By: Yumiko Mejias on 03-13-2023 Lymphocytes/100 WBC (Bld) 17.1 % 19-41 [facility] Blood monocytes/100 leukocyt esOrdered By: Yumiko Mejias on 03-13-2023 Monocytes/100 WBC (Bld) 6.6 % 0-10 [facility] Blood platelet mean volumeOr dered By: Yumiko Mejias on 03-13-2023 Platelet mean volume (Bld) [Entitic vol] 11.3 fL 6.2-12.0 [facility] Determination of erythrocyte mean corpuscular volume (MCV)Ordered By: Yumiko Mejias on 03-13-2023 MCV (RBC) [Entitic vol] 96.6 fL 81-99 [facility] Hematocrit Auto (Bld) [Volum e fraction]Ordered By: Yumiko Mejias on 03-13-2023 Hematocrit (Bld) [Volume fraction] 36.6 % 37-47 [facility] Laboratory - Chemistry and C hemistry - challengeOrdered By: Yumiko Mejias on 03-13-2023 ALP [Catalytic activity/Vol] 117 U/L 45-117 [facility] ALT [Catalytic activity/Vol] 33 U/L 13-56 [facility] CO2 [Moles/Vol] 29.0 mmol/L 21.0-32.0 [facility] Globulin (S) [Mass/Vol] 3.6 g/dL 2.2-4.2 [facility] Natriuretic peptide B (Bld) [Mass/Vol] 1066.8 pg/mL 0-100 [facility] T4 [Mass/Vol] 9.4 ug/dL 4.8-13.9 [facility] Urea nitrogen/Creatinine [Mass ratio] 14.7 mg/mg 10-20 [facility] - Hematology and Cell countsOrdered By: Yumiko Mejias on 03-13-2023 Erythrocyte distribution width (RBC) [Entitic vol] 54.8 fL 35.1-43.9 [facility] Erythrocyte distribution width (RBC) [Ratio] 15.4 % 11.6-14.6 [facility] Immature granulocytes/100 WBC (Bld) 0.300 % 0.0-0.9 [facility] Comment on above: IG% - Immature Granu locytes (promyelocytes, myelocytes and metamyelocytes) > 1% indicates that a LEFT SHIFT is Present. MCH (RBC) [Entitic mass] 30.1 pg 27.0-32.0 [facility] Nucleated RBC/100 WBC (Bld) [Ratio] 0 % 0-5 [facility] MCHC Auto (RBC) [Mass/Vol]Or dered By: Yumiko Mejias on 03-13-2023 MCHC (RBC) [Mass/Vol] 31.1 g/dL 32-36 [facility] No Panel InformationOrdered By: Yumiko Mejias on 03-13-2023 Estimated GFR (MDRD) Amer 41 mL/min >60 [facility] Comment on above: GFR Calc Estimated GFR (MDRD) Non-Af Amer 34 mL/min >60 [facility] Comment on above: Non- GFR Calc Thyroid Stimulating Hormone (TSH) 1.60 uIU/mL 0.358-3.74 [facility] 30.1 pg 27.0-32.0 [facility] 15.4 % 11.6-14.6 [facility] 54.8 fl 35.1-43.9 [facility] 0.300 % 0.0-0.9 [facility] 0 % 0-5 [facility] 34 mL/min >60 [facility] 41 mL/min >60 [facility] 14.7 RATIO 10-20 [facility] 3.6 g/dL 2.2-4.2 [facility] 117 U/L 45-117 [facility] 33 U/L 13-56 [facility] 29.0 mmol/L 21.0-32.0 [facility] 9.4 ug/dL 4.8-13.9 [facility] 1.60 uIU/mL 0.358-3.74 [facility] 1066.8 pg/mL 0-100 [facility] Platelets bldOrdered By: Maurice Mejias on 03-13-2023 Platelets (Bld) [#/Vol] 196 10*3/uL 150-450 [facility] Serum or plasma albumin etta urement (mass/volume)Ordered By: Yumiko Mejias on 03-13-2023 Albumin [Mass/Vol] 3.4 g/dL 3.2-5.0 [facility] Serum or plasma albumin/glob ulin mass ratioOrdered By: Yumiko Mejias on 03-13-2023 Albumin/Globulin [Mass ratio] 0.9 {ratio} 0.9-2.4 [facility] Serum or plasma calcium etta urement (mass/volume)Ordered By: Yumiok Mejias on 03-13-2023 Calcium [Mass/Vol] 7.6 mg/dL 8.5-10.1 [facility] Serum or plasma creatinine m easurement (mass/volume)Ordered By: Yumiko Mejias on 03-13-2023 Creatinine [Mass/Vol] 1.56 mg/dL 0.55-1.02 [facility] Comment on above: The validity of the calculated GFR & GFRAA in patients over 70 years has not been determined. Clinical correlation is essential. Serum or plasma urea nitroge n measurement (mass/volume)Ordered By: Yumiko Mejias on 03-13-2023 Urea nitrogen [Mass/Vol] 23 mg/dL 7-18 [facility] Thin prep Papanicolaou smear with manual screeningOrdered By: Yumiko Mejias on 03-13-2023 Thin prep Papanicolaou smear with manual screening 31 U/L 15-37 [facility] Thin prep Papanicolaou smear with manual screening 5 5-15 [facility] Basophil percentageOrdered B y: Yumiko Mejias on 03-06-2023 Basophil percentage 103 mg/dL 74-106 [facility] Basophil percentage 141 mmol/L 136-145 [facility] Basophil percentage 3.6 mmol/L 3.5-5.1 [facility] Basophil percentage 108 mmol/L 98-107 [facility] Basophils (Bld) [#/Vol] 9.3 10*3/uL 4.4-11.0 [facility] Chloride [Moles/Vol] 108 mmol/L 98-107 [facility] Glucose [Mass/Vol] 103 mg/dL 74-106 [facility] Comment on above: Fasting Glucose resu lt from 100 to 125 mg/dL suggests IMPAIRED HOMEOSTASIS per A.D.A. criteria. Potassium [Moles/Vol] 3.6 mmol/L 3.5-5.1 [facility] Sodium [Moles/Vol] 141 mmol/L 136-145 [facility] WBC (Bld) [#/Vol] 9.3 10*3/uL 4.4-11.0 [facility] Blood erythrocytes count (nu mber/volume)Ordered By: Yumiko Mjeias on 03-06-2023 RBC (Bld) [#/Vol] 3.98 10*6/uL 4.2-5.4 [facility] Blood hemoglobin measurement (mass/volume)Ordered By: Yumiko Mejias on 03-06-2023 Hemoglobin (Bld) [Mass/Vol] 11.9 g/dL 12.0-15.0 [facility] Blood platelet mean volumeOr dered By: Yumiko Mejias on 03-06-2023 Platelet mean volume (Bld) [Entitic vol] 10.9 fL 6.2-12.0 [facility] Determination of erythrocyte mean corpuscular volume (MCV)Ordered By: Yumiko Mejias on 03-06-2023 MCV (RBC) [Entitic vol] 97.5 fL 81-99 [facility] Hematocrit Auto (Bld) [Volum e fraction]Ordered By: Yumiko Mejias on 03-06-2023 Hematocrit (Bld) [Volume fraction] 38.8 % 37-47 [facility] - Chemistry and C hemistry - challengeOrdered By: Yumiko Mejias on 03-06-2023 CO2 [Moles/Vol] 27.0 mmol/L 21.0-32.0 [facility] Natriuretic peptide B (Bld) [Mass/Vol] 1191.5 pg/mL 0-100 [facility] Urea nitrogen/Creatinine [Mass ratio] 16.3 mg/mg 10-20 [facility] - Hematology and Cell countsOrdered By: Yumiko Mejias on 03-06-2023 Erythrocyte distribution width (RBC) [Entitic vol] 55.8 fL 35.1-43.9 [facility] Erythrocyte distribution width (RBC) [Ratio] 15.4 % 11.6-14.6 [facility] MCH (RBC) [Entitic mass] 29.9 pg 27.0-32.0 [facility] MCHC Auto (RBC) [Mass/Vol]Or dered By: Yumiko Mejias on 03-06-2023 MCHC (RBC) [Mass/Vol] 30.7 g/dL 32-36 [facility] No Panel InformationOrdered By: Yumiko Mejias on 03-06-2023 Estimated GFR (MDRD) Amer 54 mL/min >60 [facility] Comment on above: GFR Calc Estimated GFR (MDRD) Non-Af Amer 44 mL/min >60 [facility] Comment on above: Non- GFR Calc Thyroid Stimulating Hormone (TSH) 1.56 uIU/mL 0.358-3.74 [facility] 29.9 pg 27.0-32.0 [facility] 15.4 % 11.6-14.6 [facility] 55.8 fl 35.1-43.9 [facility] 44 mL/min >60 [facility] 54 mL/min >60 [facility] 16.3 RATIO 10-20 [facility] 27.0 mmol/L 21.0-32.0 [facility] 1.56 uIU/mL 0.358-3.74 [facility] 1191.5 pg/mL 0-100 [facility] Platelets bldOrdered By: Maurice Mejias on 03-06-2023 Platelets (Bld) [#/Vol] 223 10*3/uL 150-450 [facility] Serum or plasma calcium etta urement (mass/volume)Ordered By: Yumiko Mejias on 03-06-2023 Calcium [Mass/Vol] 8.5 mg/dL 8.5-10.1 [facility] Serum or plasma creatinine m easurement (mass/volume)Ordered By: Yumiko Mejias on 03-06-2023 Creatinine [Mass/Vol] 1.23 mg/dL 0.55-1.02 [facility] Comment on above: The validity of the calculated GFR & GFRAA in patients over 70 years has not been determined. Clinical correlation is essential. Serum or plasma urea nitroge n measurement (mass/volume)Ordered By: Yumiko Mejias on 03-06-2023 Urea nitrogen [Mass/Vol] 20 mg/dL 7-18 [facility] Thin prep Papanicolaou smear with manual screeningOrdered By: Yumiko Mejias on 03-06-2023 Thin prep Papanicolaou smear with manual screening 6 5-15 [facility] 36on 02-16-[address] [facility]: [facility] [address] [facility] [address] Dept: [phone] Dept Loc: [phone] Visit type: Established patient - Virtual Reason for Visit: Post-op Follow-up Surgery/Procedure: 12/14/22: CABGx2 (PEDRAZA LAD, SVG to OM1) MVRepair (28 ring) LAAL with atriclip with Dr. Lai POD#64 Day from Discharge (12/30/22) #48 -Reviewed current meds Continue as ordered -Surgical Incisions: Per patient-healing appropriately, well approximated, no s/s of infection -Physical therapy as outlined in discharge instructions: Will discuss with Dr. Brumfield's office if she would like to do cardiac rehab in [place] -Acute Post-Operative Pain Tx plan: OTC as [...] stated that they are currently in the state [facility]. If the patient is a minor, permission [...] exertion. Patient with significant cardiac history: CAD (ME-October 2018-NEGRO to LAD and LCx; November 2018-NEGRO [...] She is pleased with her care at [facility], but wishes to do any further follow up in [place] with Dr. Brumfield's office. Objective: Physical exam [...] This note may have been dictated using [employer] Practice Edition 2.6 and/or [email or web address] Voice Recognition Feature. The document was proofread, however unrecognized voice recognition hiv/aids care nurse errors may be present. Normal [facility] 36on 02-05-2023 36 Spoke to pt. She is doing well and has HHC and PT coming into home. Scheduled pt for VV with SALAS Vaughn on 02/21/23. Pt aware and will call office with any questions or concerns. Normal [facility] 36on 02-03-2023 36 Name of caller: Deandre Contact phone number: [phone] Relationship to Patient: [facility] at home Provider: Danielle Lai Practice: Cardiothoracic Surgery Chief Complaint/Reason for Call: Caller wanted the doctor to know that he has not had any contact with the patient and is missing todays appointment. Best time of day caller can be reached: any Patient advised that office/PCP has 24-48 business hours to return their call: N/A Normal [facility] Office Visiton 01-22-2023 Follow-up visit [id number] Neto Quiñones 1940 F Date Provider Department Center 01/22/20[id number] Family History Problem Relation Age of Onset Heart disease Father Family Status - Relation Status Age at Father Level of Service:33116 [place] POSTOP FOLLOW UP VISIT RELATED TO ORIGINAL PX Reason for Visit and Comments: Post-op [483] Normal [facility] Progress Noteon 01-22-[address] [facility]: [facility] [address] [facility] [address] Dept: [phone] Dept Loc: [phone] Visit type: Established patient - Virtual Reason for Visit: Post-op Surgery/Procedure: 12/14/22: CABGx2 (PEDRAZA LAD, SVG to OM1) MVRepair (28 ring) LAAL with atriclip with Dr. Lai Assessment/Plan POD#39 Day from Discharge (12/30/22) #23 -Reviewed current meds Continue as ordered, no changes made -Surgical Incisions: Per patient-healing appropriately, well approximated, no s/s of infection -Physical therapy as outlined in discharge instructions: continue with in-home PT -Acute Post-Operative Pain Tx plan: OTC as needed Weight restriction measures 5-8 weeks from date of surgery- 20lbs weight restriction: 02/08/23 9-12 weeks from date of surgery-30lbs weight restriction approximate end date: 03/08/23 Disposition: F/U with CTS for VV in 3 weeks F/U with Cardiology on 02/09 (Dr. Brumfield) Patient verbalized understanding of plan and stated they would call if any questions or concerns arise. Treatment Team: PCP: Amalia Avery MD Cardiology: Dr. Brumfield Patient was seen today via Telehealth by agreement and consent. I used the following Telehealth technology: Audio capability only. Total length of call 30 minutes. The patient was offered and advised [...] stated that they are currently in the state [facility]. If the patient is a minor, permission has been obtained by the parent or guardian for the patient to receive medical care at this visit. Patient identification was verified at the start of the visit: yes Total time spent on this encounter: 45 Subjective HPI: 82-year-old female seen in outpatient setting for surgical evaluation due to progressive shortness of breath with exertion. Patient with significant cardiac history: CAD (-October 2018-NEGRO to LAD and LCx; November 2018-NEGRO [...] discharge her home with family on POD#16. 01/22/23: Spoke with patient for VV follow up. She feels she is doing very well, and states she has come a very far way since being discharged from the hospital. She is working on getting in and out of bed by herself, is getting outside every day and preparing her own food. She is very pleased with her progress. She has pain with sneezing, but otherwise pain is controlled. She is taking all meds as ordered. Swallowing is improving. Review of Systems Constitutional: Negative for diaphoresis, fatigue and fever. Respiratory: Negative for cough, shortness of breath and wheezing. Cardiovascular: Negative for chest pain, palpitations and leg swelling. Gastrointestinal: Negative for abdominal distention, constipation and diarrhea. Skin: Negative for color change, pallor and rash. Objective Patient reported: 118/87 Wt Readings from Last 3 Encounters: 01/09/23 73.6 kg (162 lb 3.2 oz) 12/30/22 74 kg (163 lb 3.2 oz) 12/08/22 76.9 kg (169 lb 9.6 oz) Physical exam deferred due to virtual visit-with [...] in this note from are not a subs (more content not included)... [facility] 36on 09-15-2023 36 Called patient to discuss her symptoms. Patient was feeling lightheaded and dizzy. Per daughter patient was very nervous with home nurse and she believes that the stress of everything is what was causing her symptoms. Her daughter took her blood pressure 2 hours after was 100/60. Talked with daughter about talking patients blood pressure twice a day and keeping a log of it to see what the trend is. Daughter understands and all her questions were answered. Will call back with any other problems. Normal [facility] 36 Home care saw simba t yesterday and blood pressure was 84/54 and 70/48 and did some light walking and raised but went back down after walking. Patient had some light headedness Please advise [facility] Office Visiton 01-09-2023 Follow-up visit [id number] Neto Quiñones 1940 F Date Provider Department Center 01/09/2023 [id number]-ORJHHGJANEL [facility] CT None Family History Problem Relation Age of Onset Heart disease Father Family Status - Relation Status Age at Father Level of Service:84330 [place] POSTOP FOLLOW UP VISIT RELATED TO ORIGINAL PX Reason for Visit and Comments: Post-op [483] [facility] Progress Noteon 01-09-[address] [facility]: [facility] [address] [place] [address] [address] [place] [id number] Dept: [phone] Dept Loc: [phone] Visit type: Established patient Reason for Visit: Post-op Assessment and Plan 1. 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 Ischemic cardiomyopathy 3. Mitral valve insufficiency, unspecified etiology 4. S/P CABG (coronary artery bypass graft) 5. S/P MVR (mitral valve repair) 12/14/22: CABGx2 (PEDRAZA LAD, SVG to OM1) MVRepair (28 ring) LAAL with atriclip with Dr. Lai POD#26 Day from Discharge (12/30/22) #10 -Reviewed [...] exertion. Patient with significant cardiac history: CAD (ME-October 2018-NEGRO to LAD and LCx; November 2018-NEGRO [...] drop into the left eye in the mornin (more content not included)... Normal [facility] Nursing Noteon 12-30-2022 Nursing Note RN reviewed discharg e instructions and medications with patient, and patient's family, at the bedside. Both patient and patient's family verbalized understanding and stated no further questions at this time. IV removed & belongings packed. Patient dressed and wheeled out to car for discharge home now. [facility] Progress Noteon 12-29-2022 Progress Note Speech-Language Pathology SPEECH LANGUAGE PATHOLOGY [facility] Dysphagia Treatment Note Patient Name: Dayana Quiñones [...] liquids. Speech therapy to follow. Continue acute TANDEM MILL OPERATOR therapy per initial plan of care and [...] Expected End: 12/30/22 Resolved: 12/17/22 Therapy Time TANDEM MILL OPERATOR Individual Minutes Time In: 1340 Time Out: 1400 Minutes: 20 OMARI Sosa [facility] Progress Note Physical Therapy Facility/Department: [facility] Physical Therapy Daily Treatment Note NAME: Dayana [...] The primary encounter diagnosis was 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 A diagnosis of Coronary artery disease involving coronary bypass graft of morongo heart with angina pectoris with documented spasm (HCC) was also pertinent to this visit. has a past medical history of Anxiety, Atherosclerosis of coronary artery bypass graft of morongo heart without angina pectoris, Chronic kidney disease, GERD (gastroesophageal reflux disease), Hypertension, Ischemic cardiomyopathy, Mobitz type II atrioventricular block, STEMI (ST elevation myocardial infarction) (HCC) (11/16/2018), Stroke ([facility]), and Vertigo. has a past surgical history that includes Coronary stent placement (12/19/2018); Cardiac pacemaker placement (08/02/2018); and Back surgery. Restrictions Restrictions/Precautio ns Restrictions/Precautio ns: General Precautions, Fall Risk, Surgical Protocols, Modified [...] - Dynamic: Fair, + Standing - Static: (more content not included)... Normal [facility] Basic metabolic 1998 panelon 12-28-2022 Anion gap [Moles/Vol] 9 mmol/L 3 - 13 mmol/L [facility] Calcium [Mass/Vol] 8.6 mg/dL 8.4 - 10. 4 mg/dL [facility] Chloride [Moles/Vol] 101 mmol/L 98 - 10 7 mmol/L [facility] CO2 [Moles/Vol] 24 mmol/L 22 - 30 mmol/L [facility] Creatinine [Mass/Vol] 1.08 mg/dL High 0.52 - 1.04 mg/dL [facility] GFR/1.73 sq M.predicted MDRD (S/P/Bld) [Vol rate/Area] 51.1 mL/min/{1.73_m2} Low - PINF [facility] Glucose [Mass/Vol] 106 mg/dL High 70 - 100 mg/dL [facility] Interpretation and review of laboratory results Abnormal [facility] Potassium [Moles/Vol] 4.4 mmol/L 3.5 - 5.1 mmol/L [facility] Sodium [Moles/Vol] 135 mmol/L 135 - 145 mmol/L [facility] Urea nitrogen [Mass/Vol] 28 mg/dL High 7 - 17 mg/dL [facility] CARECOORDon 12-28-2022 CARECOORD Notified by [facility] liaison patient insurance [employer] has denied admission to [facility] but offering a P2P. CTS SENIOR MOBILE DEVELOPER attempted to schedule [id number] to leave a message. Updated patient at bedside and daughter Juani over the phone, discussed potential back up plan with each as well. Will await P2P. Normal [facility] CBC panel Auto (Bld)on 12-28 Erythrocyte distribution width (RBC) [Ratio] 15.2 % High 11.5 - 14.5 % [facility] Hematocrit (Bld) [Volume fraction] 31.7 % Low 35.0 - 47.0 % [facility] Hemoglobin (Bld) [Mass/Vol] 10.5 g/dL Low 11.7 - 16.0 g/dL [facility] Interpretation and review of laboratory results Abnormal [facility] MCH (RBC) [Entitic mass] 30.1 pg 26. 0 - 34.[address] [facility] MCHC (RBC) [Mass/Vol] 33.0 % 32.0 - 36.0 % [facility] MCV (RBC) [Entitic vol] 91.2 fL 80.0 - 98.[address] [facility] Platelet mean volume (Bld) [Entitic vol] 8.7 fL 7.4 - 12.[address] [facility] Platelets (Bld) [#/Vol] 296 10*3/uL 140 - 440 10*3/uL [facility] RBC (Bld) [#/Vol] 3.48 10*6/uL Low 3.8 - 5.20 10*6/uL [facility] WBC (Bld) [#/Vol] 12.4 10*3/uL High 3.6 - 10.7 10*3/uL [facility] Progress Noteon 12-28-2022 Progress Note Physical Therapy Facility/Department: [facility] Physical Therapy Daily Treatment Note NAME: Dayana [...] The primary encounter diagnosis was 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 A diagnosis of Coronary artery disease involving coronary bypass graft of morongo heart with angina pectoris with documented spasm ([facility]) was also pertinent to this visit. has a past medical history of Anxiety, Atherosclerosis of coronary artery bypass graft of morongo heart without angina pectoris, Chronic kidney disease, GERD (gastroesophageal reflux disease), Hypertension, Ischemic cardiomyopathy, Mobitz type II atrioventricular block, STEMI (ST elevation myocardial infarction) ([facility]) (11/16/2018), Stroke ([facility]), and Vertigo. has a past surgical history that includes Coronary stent placement (12/19/2018); Cardiac pacemaker placement (08/02/2018); and Back surgery. Restrictions Restrictions/Precautio ns Restrictions/Precautio ns: General Precautions, Fall Risk, Surgical Protocols, Modified [...] today d/t Pt just ambulating in AM. 2300-6229, 1727-3919 (30min total) Subjective Subjective: Pt in chair, [...] in Place: Yes Type of Devices: All (more content not included)... Normal [facility] Progress Note Speech-Language Pathology SPEECH LANGUAGE PATHOLOGY [facility] Dysphagia Treatment Note Patient Name: Dayana Quiñones [...] same. Plan & Recommendations Plan: Continue acute TANDEM MILL OPERATOR therapy per initial plan of care and [...] Expected End: 12/30/22 Resolved: 12/17/22 Therapy Time TANDEM MILL OPERATOR Individual Minutes Time In: 1015 Time Out: 1035 Minutes: 20 OMARI Maciel [facility] Progress Noteon 12-27-2022 Progress Note Physical Therapy Facility/Department: [facility] Physical Therapy Daily Treatment Note NAME: Dayana Quiñones : 1940 Date of Service: 12/27/2022 Discharge Recommendations: IP Rehab PT Equipment Recommendations Equipment Needed: No Other: tbd Assessment Requires PT Follow-Up: Yes Assessment: Pt slowly progressing towards PT goals. Pt required MIn x1 to stand from chair and from toilet today. Pt able to ambulate short distance to bathroom w/o device; NYLON WINDER w/ Min x1 for balance. Pt able [...] The primary encounter diagnosis was 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 A diagnosis of Coronary artery disease involving coronary bypass graft of morongo heart with angina pectoris with documented spasm ([facility]) was also pertinent to this visit. has a past medical history of Anxiety, Atherosclerosis of coronary artery bypass graft of morongo heart without angina pectoris, Chronic kidney disease, GERD (gastroesophageal reflux disease), Hypertension, Ischemic cardiomyopathy, Mobitz type II atrioventricular block, STEMI (ST elevation myocardial infarction) ([facility]) (11/16/2018), Stroke ([facility]), and Vertigo. has a past surgical history that includes Coronary stent placement (12/19/2018); Cardiac pacemaker placement (08/02/2018); and Back surgery. Restrictions Restrictions/Precautio ns Restrictions/Precautio ns: General Precautions, Fall Risk, Surgical Protocols Required [...] she has anxiety/fear about hurting my chest incision, and asked several times (~ 8) during [...] Weeks: 2 Specific Instructions for Next Treatment: functi (more content not included)... Normal [facility] Progress Note Speech-Language Pathology SPEECH LANGUAGE PATHOLOGY [facility] Dysphagia Treatment Note Patient Name: Dayana Quiñones Evaluation Date: 12/27/2022 Date of : 1940 Admission Date: 12/14/2022 5:46 AM Age: 82 y.o. Room/Bed: T1-114/T1-114 A Subjective Patient alert and cooperative. Seen upright in bedside chair. No visitors at bedside. Spoke with RN Renny who cleared pt for treatment. Pain: RN [...] to Chew with THIN Liquids. Continue acute TANDEM MILL OPERATOR therapy per initial plan of care and [...] Expected End: 12/30/22 Resolved: 12/17/22 Therapy Time TANDEM MILL OPERATOR Individual Minutes Time In: 1035 Time Out: 1115 Minutes: [address] [facility] Basic metabolic 1998 panelon 12-26-2022 Anion gap [Moles/Vol] 8 mmol/L 3 - 13 mmol/L [facility] Calcium [Mass/Vol] 8.7 mg/dL 8.4 - 10. 4 mg/dL [facility] Chloride [Moles/Vol] 98 mmol/L 98 - 10 7 mmol/L [facility] CO2 [Moles/Vol] 26 mmol/L 22 - 30 mmol/L [facility] Creatinine [Mass/Vol] 1.12 mg/dL High 0.52 - 1.04 mg/dL [facility] GFR/1.73 sq M.predicted MDRD (S/P/Bld) [Vol rate/Area] 48.9 mL/min/{1.73_m2} Low - PINF [facility] Glucose [Mass/Vol] 107 mg/dL High 70 - 100 mg/dL [facility] Interpretation and review of laboratory results Abnormal [facility] Potassium [Moles/Vol] 4.4 mmol/L 3.5 - 5.1 mmol/L [facility] Sodium [Moles/Vol] 132 mmol/L Low 135 - 145 mmol/L [facility] Urea nitrogen [Mass/Vol] 32 mg/dL High 7 - 17 mg/dL [facility] [place] MODIFIED BARIUM WITH VIDE O AND SPEECHon 12-26-2022 [place] MODIFIED BARIUM WITH VIDEO AND SPEECH [facility] 1940 [id number] Exam Date/Time: 12/26/2022 15:14 Procedure: [place] MODIFIED BARIUM WITH VIDEO AND SPEECH Ordering Provider: LORENZANA KYLE Reason For Exam: DYSPHAGIA MODIFIED BARIUM SWALLOW (COOKIE SWALLOW) CLINICAL INDICATION: Dysphagia. COMPARISON: 12/22/2022 FLUOROSCOPY DOSE: oj Monsivais= 12.87 mGy TECHNIQUE: The procedure was performed in conjunction with speech therapy. Barium mixtures of various consistencies were given under fluoroscopy with the patient in the sitting lateral position. FINDINGS: Preparatory phase is unremarkable. Oral phase shows spillage to the vallecula, piriform sinuses, and laryngeal vestibule. Pharyngeal phase shows increased piriform residuals in the piriform sinuses. There is weakness of the pharyngeal wall, weakness of the tongue base, and reduced epiglottic deflection. There is coating of the back of the epiglottis and vocal cord penetration. There is airway aspiration. There is hypertrophy of the cricopharyngeus. IMPRESSION: Vocal cord penetration, but no airway aspiration. Hypertrophy of the cricopharyngeus. Please refer to the speech pathologist's report for additional comments and recommendations. Report Dictated on Electronically Signed By: Howard Bettencourt MD Electronically Signed Date/Time: 12/26/2022 3:21 PM EDT [facility] Progress Noteon 12-26-2022 Progress Note Nutrition Assessment Type and Reason for [...] aging) Fluid Accumulation: No significant fluid accumulation Manager Terminal Strength: Not Performed Nutrition Assessment: Pt with PMH including anxiety, CAD, CKD, GERD, HTN, ischemic cardiomyopathy, Mobitz type II atrioventricular block, STEMI, stroke, paroxysmal atrial fibrillation, HFrEF-30%, 2+ MR, and vertigo presented on 12/14/22 for CABGx2 and MVRepair. Extubated on POD#1 (12/15). +Dysphonia. TANDEM MILL OPERATOR following with finding of dysphagia, initally recommended [...] On: Kcal/kg Weight Used for Energy Requirements: Reynolds Weight for Energy Calculation (kg): 52.3 kg Total Energy Requirements (kcals/day): 1308-1569kcals/day Weight Used for Protein Requirements: Reynolds Weight in Kg Used for Protein Requirements: [...] 1 drop, Left Eye, Every other day diphenoxylate-atropine , 5 mL, Oral, TID erythromycin, , Left [...] - Soft and Bite Sized; Mildly Thick (Machias) Current Oral Intake Average Meal Intake: (tolerating some food items on current diet) Average Supplements Intake: None Ordered Anthropometric Measures: Height: 160 cm (5' 3) Current Body Weight: 76.4 kg (168 lb 6.9 oz) (standing scale 12/26) Weight Source: Not Specified Admission Body Weight: 76.7 kg (169 lb) (stated 12/14) Usual Body Weight: 77.6 kg (171 lb) (only weight noted per chart review is from 11/14/22: 171#) % Weight Change (Calculated): 0.6 Reynolds Body Weight (lbs) (Calculated): 115 lbs Reynolds Body Weight (Kg) (Calculated): 52 kg % Reynolds Body Weight (Calculated): 149.6 % BMI (kg/m2) (Calculated): 29.8 Weight Adjustment For: No Adjustment BMI Categories: Overweight (BMI 25.0-29.9) Wt (more content not included)... Normal [facility] Progress Note Physical Therapy Facility/Department: [facility] Physical Therapy Daily Treatment Note NAME: Dayana [...] The primary encounter diagnosis was 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 A diagnosis of Coronary artery disease involving coronary bypass graft of morongo heart with angina pectoris with documented spasm ([facility]) was also pertinent to this visit. has a past medical history of Anxiety, Atherosclerosis of coronary artery bypass graft of morongo heart without angina pectoris, Chronic kidney disease, GERD (gastroesophageal reflux disease), Hypertension, Ischemic cardiomyopathy, Mobitz type II atrioventricular block, STEMI (ST elevation myocardial infarction) ([facility]) (11/16/2018), Stroke ([facility]), and Vertigo. has a past surgical history that includes Coronary stent placement (12/19/2018); Cardiac pacemaker placement (08/02/2018); and Back surgery. Restrictions Restrictions/Precautio ns Restrictions/Precautio ns: General Precautions, Fall Risk, Surgical Protocols Required [...] Goal: Pain Assessment Pain Assessment: No/denies pain (feeling good) Cognition/Orientation Overall Cognitive Status: WFL Arousal/Alertness: Appropriate responses to stimuli Following Commands: Follows multistep commands with increased time Attention Span: (SPOKANE noted) Memory: (overall, pt. compliant with sternal [...] Home Exercise Program, Safety Education & Training, (more content not included)... [facility] Progress Note Occupational Therapy OCCUPATIONAL THERAPY [facility] Treatment Note Patient Name: Dayana Quiñones [...] PPE donned/doffed in accordance with facility standards. Precautions/Restrictio ns: Sternal Precautions: No Pushing, No Pulling, No [...] Code Treatment Minutes: (Funct--1; Self--1) ROSA Gao [facility] Progress Note Speech-Language Pathology SPEECH LANGUAGE PATHOLOGY [facility] Dysphagia Treatment Note Patient Name: Dayana Quiñones Evaluation Date: 12/26/2022 Date of : 1940 Admission Date: 12/14/2022 5:46 AM Age: 82 y.o. Room/Bed: T1-114/T1-114 A Subjective Patient alert and cooperative. Seen upright in bedside chair. Answers all basic questions with clear vocal quality. Follows all basic commands. No visitors at bedside. Spoke with MANAS Lawson who cleared pt for treatment. Current Diet: Dietary Orders (From admission, onward) Start Ordered 12/25/22 1533 Adult diet Dysphagia - Soft and Bite Sized; Mildly Thick (Machias) Diet effective now Comments: Meds whole in puree. Question Answer Comment Diet type Dysphagia - Soft and Bite Sized Fluid consistency Mildly Thick (Machias) 12/25/22 1533 Aspiration Precautions: - Supervision with [...] straws and very cold water. Patient has excellentimplementatio n of effortful swallow with re-swallow with trials. [...] per dysphagia plan of care. Continue acute TANDEM MILL OPERATOR therapy per initial plan of care and [...] Expected End: 12/30/22 Resolved: 12/17/22 Therapy Time TANDEM MILL OPERATOR Individual Minutes Time In: 910 Time Out: 930 Minutes: 20 OMARI Curran Normal [facility] RF videography Hypopharynx a nd Esophagus Views for swallowing function W speech and W barium contrast Camila 12-26-2022 [facility] EM[facility]ENC[facility]PART[facility] RADIOLOGY SYSTEM [facility] EMERGENC[facility] RADIOLOGY SYSTEM [facility] Radiology Study observation (narrative) [facility] Basic metabolic 1998 panelon 12-25-2022 Anion gap [Moles/Vol] 9 mmol/L 3 - 13 mmol/L [facility] Calcium [Mass/Vol] 8.8 mg/dL 8.4 - 10. 4 mg/dL [facility] Chloride [Moles/Vol] 99 mmol/L 98 - 10 7 mmol/L [facility] CO2 [Moles/Vol] 28 mmol/L 22 - 30 mmol/L [facility] Creatinine [Mass/Vol] 0.89 mg/dL 0.52 - 1.04 mg/dL [facility] GFR/1.73 sq M.predicted MDRD (S/P/Bld) [Vol rate/Area] 64.4 mL/min/{1.73_m2} - PINF [facility] Glucose [Mass/Vol] 109 mg/dL High 70 - 100 mg/dL [facility] Interpretation and review of laboratory results Abnormal [facility] Potassium [Moles/Vol] 5.2 mmol/L High 3.5 - 5.1 mmol/L [facility] Sodium [Moles/Vol] 137 mmol/L 135 - 145 mmol/L [facility] Urea nitrogen [Mass/Vol] 42 mg/dL High 7 - 17 mg/dL [facility] Progress Noteon 12-25-2022 Progress Note Speech-Language Pathology SPEECH LANGUAGE PATHOLOGY [facility] Dysphagia Treatment Note Patient Name: Dayana Quiñones Evaluation Date: 12/25/2022 Date of : 1940 Admission Date: 12/14/2022 5:46 AM Age: 82 y.o. Room/Bed: [facility]114/[facility] A Subjective Patient alert and cooperative. Seen [...] continue dysphagia POC for tolerance. Continue acute TANDEM MILL OPERATOR therapy per initial plan of care and [...] Expected End: 12/30/22 Resolved: 12/17/22 Therapy Time TANDEM MILL OPERATOR Individual Minutes Time In: 1420 Time Out: 1440 Minutes: 20 OMARI Sosa [facility] Progress Note Physical Therapy Facility/Department: [facility] Physical Therapy Daily Treatment Note NAME: Dayana [...] The primary encounter diagnosis was 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 A diagnosis of Coronary artery disease involving coronary bypass graft of morongo heart with angina pectoris with documented spasm ([facility]) was also pertinent to this visit. has a past medical history of Anxiety, Atherosclerosis of coronary artery bypass graft of morongo heart without angina pectoris, Chronic kidney disease, GERD (gastroesophageal reflux disease), Hypertension, Ischemic cardiomyopathy, Mobitz type II atrioventricular block, STEMI (ST elevation myocardial infarction) ([facility]) (11/16/2018), Stroke ([facility]), and Vertigo. has a past surgical history that includes Coronary stent placement (12/19/2018); Cardiac pacemaker placement (08/02/2018); and Back surgery. Restrictions Restrictions/Precautio ns Restrictions/Precautio ns: General Precautions, Fall Risk, Surgical Protocols Required [...] Attention Span: Attends with cues to redirect (SPOKANE??) Memory: Decreased recall of precautions Safety Judgement: [...] Call light within reach, Gait belt, Patient (more content not included)... Normal [facility] Basic metabolic 1998 panelon 12-24-2022 Anion gap [Moles/Vol] 10 mmol/L 3 - 13 mmol/L [facility] Calcium [Mass/Vol] 8.8 mg/dL 8.4 - 10. 4 mg/dL [facility] Chloride [Moles/Vol] 101 mmol/L 98 - 10 7 mmol/L [facility] CO2 [Moles/Vol] 26 mmol/L 22 - 30 mmol/L [facility] Creatinine [Mass/Vol] 1.09 mg/dL High 0.52 - 1.04 mg/dL [facility] GFR/1.73 sq M.predicted MDRD (S/P/Bld) [Vol rate/Area] 50.5 mL/min/{1.73_m2} Low - PINF [facility] Glucose [Mass/Vol] 117 mg/dL High 70 - 100 mg/dL [facility] Interpretation and review of laboratory results Abnormal [facility] Potassium [Moles/Vol] 4.7 mmol/L 3.5 - 5.1 mmol/L [facility] Sodium [Moles/Vol] 137 mmol/L 135 - 145 mmol/L [facility] Urea nitrogen [Mass/Vol] 54 mg/dL High 7 - 17 mg/dL [facility] CBC panel Auto (Bld)on 12-24 Erythrocyte distribution width (RBC) [Ratio] 16.0 % High 11.5 - 14.5 % [facility] Hematocrit (Bld) [Volume fraction] 31.0 % Low 35.0 - 47.0 % [facility] Hemoglobin (Bld) [Mass/Vol] 10.4 g/dL Low 11.7 - 16.0 g/dL [facility] Interpretation and review of laboratory results Abnormal [facility] MCH (RBC) [Entitic mass] 30.7 pg 26. 0 - 34.[address] [facility] MCHC (RBC) [Mass/Vol] 33.7 % 32.0 - 36.0 % [facility] MCV (RBC) [Entitic vol] 91.1 fL 80.0 - 98.[address] [facility] Platelet mean volume (Bld) [Entitic vol] 10.0 fL 7.4 - 12.[address] [facility] Platelets (Bld) [#/Vol] 236 10*3/uL 140 - 440 10*3/uL [facility] RBC (Bld) [#/Vol] 3.40 10*6/uL Low 3.8 - 5.20 10*6/uL [facility] WBC (Bld) [#/Vol] 10.8 10*3/uL High 3.6 - 10.7 10*3/uL [facility] Laboratory - Chemistry and C hemistry - challengeon 12-24-2022 Magnesium [Mass/Vol] 2.0 mg/dL 1.6 - 2 .3 mg/dL [facility] Magnesium [Mass/Vol]on 12-24 Interpretation and review of laboratory results Normal [facility] No Panel Informationon 12-24 [facility] Basic metabolic 1998 panelon 12-23-2022 Anion gap [Moles/Vol] 8 mmol/L 3 - 13 mmol/L [facility] Calcium [Mass/Vol] 8.3 mg/dL Low 8.4 - 10. 4 mg/dL [facility] Chloride [Moles/Vol] 105 mmol/L 98 - 10 7 mmol/L [facility] CO2 [Moles/Vol] 27 mmol/L 22 - 30 mmol/L [facility] Creatinine [Mass/Vol] 0.86 mg/dL 0.52 - 1.04 mg/dL [facility] GFR/1.73 sq M.predicted MDRD (S/P/Bld) [Vol rate/Area] 67.1 mL/min/{1.73_m2} - PINF [facility] Glucose [Mass/Vol] 116 mg/dL High 70 - 100 mg/dL [facility] Interpretation and review of laboratory results Abnormal [facility] Potassium [Moles/Vol] 4.0 mmol/L 3.5 - 5.1 mmol/L [facility] Sodium [Moles/Vol] 141 mmol/L 135 - 145 mmol/L [facility] Urea nitrogen [Mass/Vol] 50 mg/dL High 7 - 17 mg/dL [facility] Anion gap [Moles/Vol] 7 mmol/L 3 - 13 mmol/L [facility] Calcium [Mass/Vol] 8.3 mg/dL Low 8.4 - 10. 4 mg/dL [facility] Chloride [Moles/Vol] 105 mmol/L 98 - 10 7 mmol/L [facility] CO2 [Moles/Vol] 28 mmol/L 22 - 30 mmol/L [facility] Creatinine [Mass/Vol] 0.87 mg/dL 0.52 - 1.04 mg/dL [facility] GFR/1.73 sq M.predicted MDRD (S/P/Bld) [Vol rate/Area] 66.2 mL/min/{1.73_m2} - PINF [facility] Glucose [Mass/Vol] 109 mg/dL High 70 - 100 mg/dL [facility] Interpretation and review of laboratory results Abnormal [facility] Potassium [Moles/Vol] 4.2 mmol/L 3.5 - 5.1 mmol/L [facility] Sodium [Moles/Vol] 141 mmol/L 135 - 145 mmol/L [facility] Urea nitrogen [Mass/Vol] 51 mg/dL High 7 - 17 mg/dL [facility] CBC panel Auto (Bld)on 12-23 Erythrocyte distribution width (RBC) [Ratio] 15.8 % High 11.5 - 14.5 % [facility] Hematocrit (Bld) [Volume fraction] 29.8 % Low 35.0 - 47.0 % [facility] Hemoglobin (Bld) [Mass/Vol] 9.9 g/dL Low 11.7 - 16.0 g/dL [facility] Interpretation and review of laboratory results Abnormal [facility] MCH (RBC) [Entitic mass] 30.1 pg 26. 0 - 34.[address] [facility] MCHC (RBC) [Mass/Vol] 33.3 % 32.0 - 36.0 % [facility] MCV (RBC) [Entitic vol] 90.6 fL 80.0 - 98.[address] [facility] Platelet mean volume (Bld) [Entitic vol] 9.6 fL 7.4 - 12.[address] [facility] Platelets (Bld) [#/Vol] 206 10*3/uL 140 - 440 10*3/uL [facility] RBC (Bld) [#/Vol] 3.28 10*6/uL Low 3.8 - 5.20 10*6/uL [facility] WBC (Bld) [#/Vol] 12.1 10*3/uL High 3.6 - 10.7 10*3/uL [facility] Laboratory - Chemistry and C hemistry - challengeon 12-23-2022 Magnesium [Mass/Vol] 1.9 mg/dL 1.6 - 2 .3 mg/dL [facility] Magnesium [Mass/Vol]on 12-23 Interpretation and review of laboratory results Normal [facility] th No Panel Informationon 12-23 [facility] Progress Noteon 12-23-2022 Progress Note Physical Therapy Facility/Department: Physical Therapy Daily Treatment Note NAME: Dayana [...] The primary encounter diagnosis was 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 A diagnosis of Coronary artery disease involving coronary bypass graft of morongo heart with angina pectoris with documented spasm ([facility]) was also pertinent to this visit. has a past medical history of Anxiety, Atherosclerosis of coronary artery bypass graft of morongo heart without angina pectoris, Chronic kidney disease, GERD (gastroesophageal reflux disease), Hypertension, Ischemic cardiomyopathy, Mobitz type II atrioventricular block, STEMI (ST elevation myocardial infarction) ([facility]) (11/16/2018), Stroke ([facility]), and Vertigo. has a past surgical history that includes Coronary stent placement (12/19/2018); Cardiac pacemaker placement (08/02/2018); and Back surgery. Restrictions Restrictions/Precautio ns Restrictions/Precautio ns: General Precautions, Fall Risk, Surgical Protocols Required [...] eventually go home to her dtr's in [place]. Cognition/Orientation Overall Cognitive Status: WFL Overall Orientation [...] will ambulate 200 feet or ambulate 5 minute (more content not included)... Normal [facility] Progress Note Speech-Language Pathology SPEECH LANGUAGE PATHOLOGY [facility] Dysphagia Treatment Note Patient Name: Dayana Quiñones [...] allows patient who have been identified by TANDEM MILL OPERATOR to participate in ice chips/or sips of [...] prior to any ice chips/sips of WATER. ([place] teeth, rinse with mouth wash, cleanse oral [...] Expected End: 12/30/22 Resolved: 12/17/22 Therapy Time TANDEM MILL OPERATOR Individual Minutes Time In: 1110 Time Out: 1140 Minutes: 30 OMARI Maciel [facility] Progress Note -- Attestation signed by Rhett Scott DO at 12/23/2022 11:54 AM This patient was seen and personally examined by me. Labs, imaging studies and electronic medical record reviewed. See [x]progress note []H&P []Consult documented by [x]ice house supervisor / JACEY which reflects my hpi, pmh, psh, ros, fh, sh as well with my additions, as I discussed with the [x]ice house supervisor / JACEY. For my exam, assessment and plan see below. Please see full note for additional information, physical exam. Discussed with: [x]Residents/JACEY [x]Patient/Family[x]RN [] Available Consultants []SW/TCC[]Other Personally Reviewed: [x]Epic notes[x]Radiology studies [x]Labs []EKG []Other Chang Changes to plan: with limited assessment and plan: Agree with plan outlined below. Dispo planning. TANDEM MILL OPERATOR therpay/pt/ot. Cardiothoracic Surgery/[facility] Progress Note PATIENT NAME: Dayana Quiñones DATE: 12/23/22 HPI: 82-year-old female seen in outpatient setting for surgical evaluation due to progressive shortness of breath with exertion. Patient with significant cardiac history: CAD (-October 2018-NEGRO to LAD and LCx; November 2018-NEGRO to RCA), paroxysmal atrial fibrillation, HFrEF-30%, 2+ MR, Surgery was discussed and patient consented to intervention. Surgery/Procedure: 12/14/22: CABGx2 (PEDRAZA LAD, SVG to OM1) MVRepair (28 ring) LAAL with atriclip with Dr. Effie Nash History: 12/23/22, POD# 9 no acute changes [...] Heart Rate: 74 Resp: 24 Temp: 36.4 ?C (97.5 ?F), Temp Source: Temporal BMI (Calculated): 29.77 BMP: [...] not displayed. CBC: Recent Labs 12/21/22 0030 12/22/22 0335 12/23/22 0037 WBC 11.3* 14.4* 12.1* HGB 9.5* 11.1* [...] TRINI on CKD GERD S/p PPM 08/02/2018 ([facility]) Hx Stroke Paroxsymal Afib/mobitz type II AV [...] goal rate 35 ml/hr Insulin per Endo TANDEM MILL OPERATOR following - NPO, with dobbhoff TF - reviewed CT appears to be a chronic aspiration PT/OT: 12/20- IPR Pulmonary hygiene: IS and Acapella GI prophy: IV protonix DVT prophy:TEDs, SCDs, and Patient on OAC/NOAC Disposition: TBD Central Line: []Yes [x] No Arterial Line: []Yes [x] No Colón: []Yes [x] No Restraints: (more content not included)... Normal [facility] Basic metabolic 1998 panelon 12-22-2022 Anion gap [Moles/Vol] 14 mmol/L High 3 - 13 mmol/L [facility] Calcium [Mass/Vol] 8.9 mg/dL 8.4 - 10. 4 mg/dL [facility] Chloride [Moles/Vol] 105 mmol/L 98 - 10 7 mmol/L [facility] CO2 [Moles/Vol] 27 mmol/L 22 - 30 mmol/L [facility] Creatinine [Mass/Vol] 0.81 mg/dL 0.52 - 1.04 mg/dL [facility] GFR/1.73 sq M.predicted MDRD (S/P/Bld) [Vol rate/Area] 72.1 mL/min/{1.73_m2} - PINF [facility] Glucose [Mass/Vol] 122 mg/dL High 70 - 100 mg/dL [facility] Interpretation and review of laboratory results Abnormal [facility] Potassium [Moles/Vol] 3.8 mmol/L 3.5 - 5.1 mmol/L [facility] Sodium [Moles/Vol] 146 mmol/L High 135 - 145 mmol/L [facility] Urea nitrogen [Mass/Vol] 52 mg/dL High 7 - 17 mg/dL [facility] CBC panel Auto (Bld)on 12-22 Erythrocyte distribution width (RBC) [Ratio] 15.7 % High 11.5 - 14.5 % [facility] Hematocrit (Bld) [Volume fraction] 34.2 % Low 35.0 - 47.0 % [facility] Hemoglobin (Bld) [Mass/Vol] 11.1 g/dL Low 11.7 - 16.0 g/dL [facility] Interpretation and review of laboratory results Abnormal [facility] MCH (RBC) [Entitic mass] 29.6 pg 26. 0 - 34.[address] [facility] MCHC (RBC) [Mass/Vol] 32.3 % 32.0 - 36.0 % [facility] MCV (RBC) [Entitic vol] 91.7 fL 80.0 - 98.[address] [facility] Platelet mean volume (Bld) [Entitic vol] 9.3 fL 7.4 - 12.[address] [facility] Platelets (Bld) [#/Vol] 202 10*3/uL 140 - 440 10*3/uL [facility] RBC (Bld) [#/Vol] 3.73 10*6/uL Low 3.8 - 5.20 10*6/uL [facility] WBC (Bld) [#/Vol] 14.4 10*3/uL High 3.6 - 10.7 10*3/uL [facility] [place] MODIFIED BARIUM WITH VIDE O AND SPEECHon 12-22-2022 [place] MODIFIED BARIUM WITH VIDEO AND SPEECH Patient Name: [facility]ONES [facility] 1940 [id number] Exam Date/Time: 12/22/2022 11:01 Procedure: FL MODIFIED BARIUM WITH VIDEO AND SPEECH Ordering Provider: LORENZANA KYLE Reason For Exam: DYSPHAGIA MODIFIED BARIUM SWALLOW (COOKIE SWALLOW) History: Dysphagia. Aspiration, Dobbhoff tube Fluoroscopy dose: Ka,r = 47.36 mGy Technique: The exam was performed under fluoroscopy with video recording. Barium mixtures of various consistencies was used. There is partially visualized nasoenteric tube. Findings: The preparatory phase of swallowing shows slow mastication. The oral phase shows oral residuals, decreased A/P transit and spillage of barium into the vallecula, piriforms, and laryngeal vestibule. The pharyngeal phase shows weakness of the pharyngeal wall and tongue base with decreased epiglottic deflection. There is coating of the pharyngeal wall with vallecular and piriform residuals. There is also laryngeal penetration with coating of the back of the epiglottis and vocal cord penetration without brittanie aspiration. The esophagus is not visualized in this exam for evaluation. IMPRESSION: Abnormal findings as described above. Please refer to the speech pathologist 's report for additional details and recommendations. Report Dictated on Electronically Signed By: Doni Adair MD Electronically Signed Date/Time: 12/22/2022 11:45 AM EDT Normal [facility] Laboratory - Chemistry and C hemistry - challengeon 12-22-2022 Magnesium [Mass/Vol] 2.2 mg/dL 1.6 - 2 .3 mg/dL [facility] Magnesium [Mass/Vol]on 12-22 Interpretation and review of laboratory results Normal [facility] No Panel Informationon 12-22 [facility] Progress Noteon 12-22-2022 Progress Note Physical Therapy Facility/Department: [facility] Physical Therapy Daily Treatment Note NAME: Dayana [...] The primary encounter diagnosis was 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 A diagnosis of Coronary artery disease involving coronary bypass graft of morongo heart with angina pectoris with documented spasm ([facility]) was also pertinent to this visit. has a past medical history of Anxiety, Atherosclerosis of coronary artery bypass graft of morongo heart without angina pectoris, Chronic kidney disease, GERD (gastroesophageal reflux disease), Hypertension, Ischemic cardiomyopathy, Mobitz type II atrioventricular block, STEMI (ST elevation myocardial infarction) ([facility]) (11/16/2018), Stroke ([facility]), and Vertigo. has a past surgical history that includes Coronary stent placement (12/19/2018); Cardiac pacemaker placement (08/02/2018); and Back surgery. Restrictions Restrictions/Precautio ns Restrictions/Precautio ns: General Precautions, Fall Risk, Surgical Protocols Required [...] Comment Comments: OT present for eval/Tx upon PRODUCTION MACHINIST arrival Subjective Subjective: Pt in bed, agreeable to PT. nsg cleared pt for PT Patient Stated Goal: To get stronger, to eventually go home to her dtr's in [place]. Pain Assessment Pain Assessment: (Pt only c/o [...] POC Safety Safety Devices Safety Devices in P (more content not included)... Normal [facility] Progress Note Occupational Therapy Facility/Department: T1 Occupational Therapy Initial [...] The primary encounter diagnosis was 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 A diagnosis of Coronary artery disease involving coronary bypass graft of morongo heart with angina pectoris with documented spasm ([facility]) was also pertinent to this visit. has a past medical history of Anxiety, Atherosclerosis of coronary artery bypass graft of morongo heart without angina pectoris, Chronic kidney disease, GERD (gastroesophageal reflux disease), Hypertension, Ischemic cardiomyopathy, Mobitz type II atrioventricular block, STEMI (ST elevation myocardial infarction) ([facility]) (11/16/2018), Stroke ([facility]), and Vertigo. has a past surgical history that includes Coronary stent placement (12/19/2018); Cardiac pacemaker placement (08/02/2018); and Back surgery. Restrictions Restrictions/Precautio ns Restrictions/Precautio ns: General Precautions, Fall Risk, Surgical Protocols Required [...] With device?: No Transfer Assistance: Independent Active Anchor Tack Puller: Yes Additional Comments: pt plans to go [...] Moderate assistance Stand to sit: Moderate assistance (more content not included)... Normal [facility] Progress Note Patient out of room. Wound care will continue to follow. Normal [facility] Progress Note -- Attestation signed by Rhett Scott DO at 12/22/2022 7:30 PM This patient was seen and personally examined by me. Labs, imaging studies and electronic medical record reviewed. See [x]progress note []H&P []Consult documented by [x]ice house supervisor / JACEY which reflects my hpi, pmh, psh, ros, fh, sh as well with my additions, as I discussed with the [x]ice house supervisor / JACEY. For my exam, assessment and plan see below. Please see full note for additional information, physical exam. Discussed with: [x]Residents/JACEY [x]Patient/Family[x]RN [] Available Consultants []SW/TCC[]Other Personally Reviewed: [x]Epic notes[x]Radiology studies [x]Labs []EKG []Other Chang Changes to plan: with limited assessment and plan: agree with documentation by JACEY Chiqui below Cardiothoracic Surgery/[facility] Progress Note PATIENT NAME: Dayana Quiñones DATE: 12/22/22 HPI: 82-year-old female seen in outpatient setting for surgical evaluation due to progressive shortness of breath with exertion. Patient with significant cardiac history: CAD (ME-October 2018-NEGRO to LAD and LCx; November 2018-NEGRO to RCA), paroxysmal atrial fibrillation, HFrEF-30%, 2+ MR, Surgery was discussed and patient consented to intervention. Surgery/Procedure: 12/14/22: CABGx2 (PEDRAZA LAD, SVG to OM1) MVRepair (28 ring) LAAL with atriclip with Dr. Lai Interval History: 12/22/22, POD# 8: No acute [...] Rate: (!) 122 Resp: 18 Temp: 36.5 ?C (97.7 ?F), Temp Source: Temporal BMI (Calculated): 29.84 CXR: [...] TRINI on CKD GERD S/p PPM 08/02/2018 ([facility]) Hx Stroke Paroxsymal Afib/mobitz type II AV [...] goal rate 35 ml/hr Insulin per Endo TANDEM MILL OPERATOR following - NPO, with dobbhoff TF PT/OT: 12/20- IPR Pulmonary hygiene: IS and Acapella GI prophy: IV protonix DVT prophy:TEDs (more content not included)... Normal [facility] RF videography Hypopharynx a nd Esophagus Views for swallowing function W speech and W barium contrast Camila 12-22-2022 [facility] EMERGENCY DEPARTMENT RADIOLOGY [facility] RADIOLOGY [facility] Radiology Study observation (narrative) [facility] RF videography Hypopharynx a nd Esophagus Views for swallowing function W speech and W barium contrast POOrdered By: Doni Adair on 12-22-2022 [facility] Work Phone: Basic metabolic 1998 panelon 12-21-2022 Anion gap [Moles/Vol] 9 mmol/L 3 - 13 mmol/L [facility] Calcium [Mass/Vol] 7.5 mg/dL Low 8.4 - 10. 4 mg/dL [facility] Chloride [Moles/Vol] 111 mmol/L High 98 - 10 7 mmol/L [facility] CO2 [Moles/Vol] 25 mmol/L 22 - 30 mmol/L [facility] Creatinine [Mass/Vol] 0.89 mg/dL 0.52 - 1.04 mg/dL [facility] GFR/1.73 sq M.predicted MDRD (S/P/Bld) [Vol rate/Area] 64.4 mL/min/{1.73_m2} - PINF [facility] Glucose [Mass/Vol] 118 mg/dL High 70 - 100 mg/dL [facility] Interpretation and review of laboratory results Abnormal [facility] Potassium [Moles/Vol] 2.9 mmol/L Low 3.5 - 5.1 mmol/L [facility] Sodium [Moles/Vol] 145 mmol/L 135 - 145 mmol/L [facility] Urea nitrogen [Mass/Vol] 53 mg/dL High 7 - 17 mg/dL [facility] CBC panel Auto (Bld)on 12-21 Erythrocyte distribution width (RBC) [Ratio] 15.4 % High 11.5 - 14.5 % [facility] Hematocrit (Bld) [Volume fraction] 28.7 % Low 35.0 - 47.0 % [facility] Hemoglobin (Bld) [Mass/Vol] 9.5 g/dL Low 11.7 - 16.0 g/dL [facility] Interpretation and review of laboratory results Abnormal [facility] MCH (RBC) [Entitic mass] 29.7 pg 26. 0 - 34.[address] [facility] MCHC (RBC) [Mass/Vol] 33.1 % 32.0 - 36.0 % [facility] MCV (RBC) [Entitic vol] 89.7 fL 80.0 - 98.[address] [facility] Platelet mean volume (Bld) [Entitic vol] 9.7 fL 7.4 - 12.[address] [facility] Platelets (Bld) [#/Vol] 127 10*3/uL Low 140 - 440 10*3/uL [facility] RBC (Bld) [#/Vol] 3.20 10*6/uL Low 3.8 - 5.20 10*6/uL [facility] WBC (Bld) [#/Vol] 11.3 10*3/uL High 3.6 - 10.7 10*3/uL [facility] Laboratory - Chemistry and C hemistry - challengeon 12-21-2022 Potassium [Moles/Vol] 4.2 mmol/L 3.5 - 5.1 mmol/L [facility] Magnesium [Mass/Vol] 2.0 mg/dL 1.6 - 2 .3 mg/dL [facility] Magnesium [Mass/Vol]on 12-21 Interpretation and review of laboratory results Normal [facility] No Panel Informationon 12-21 [facility] Potassium [Moles/Vol]on 11-29 Interpretation and review of laboratory results Normal [facility] Progress Noteon 12-21-2022 Progress Note Speech-Language Pathology SPEECH LANGUAGE PATHOLOGY [facility] Dysphagia Treatment Note Patient Name: Dayana Quiñones Evaluation Date: 12/21/2022 Date of : 1940 Admission Date: 12/14/2022 5:46 AM Age: 82 y.o. Room/Bed: T1-114/T1-114 A Subjective Patient alert and cooperative. Seen upright in bedside chair. No visitors at bedside. Spoke with MANAS Gusman who cleared pt for treatment. Pain: RN [...] allows patient who have been identified by TANDEM MILL OPERATOR to participate in ice chips/or sips of [...] prior to any ice chips/sips of WATER. ([place] teeth, rinse with mouth wash, cleanse oral [...] Expected End: 12/30/22 Resolved: 12/17/22 Therapy Time TANDEM MILL OPERATOR Individual Minutes Time In: 1435 Time Out: 1500 Minutes: 25 OMARI Maciel [facility] Progress Note Nutrition Assessment Type and Reason for [...] loss Fluid Accumulation: No significant fluid accumulation Manager Terminal Strength: Not Performed Nutrition Assessment: Pt with PMH including anxiety, CAD, CKD, GERD, HTN, ischemic cardiomyopathy, Mobitz type II atrioventricular block, STEMI, stroke, paroxysmal atrial fibrillation, HFrEF-30%, 2+ MR, and vertigo presented on 12/14/22 for CABGx2 and MVRepair. Extubated on POD#1 (12/15). +Dysphonia. TANDEM MILL OPERATOR following with finding of dysphagia, recommendation for NPO. DHT placed and TF intitated on 12/19. TF running at goal. (Glucerna 1.5 at 35 ml/hr) Estimated Daily Nutrient Needs: Energy Requirements Based On: Kcal/kg Weight Used for Energy Requirements: Reynolds Weight for Energy Calculation (kg): 52.3 kg Total Energy Requirements (kcals/day): 1308-1569kcals/day Weight Used for Protein Requirements: Reynolds Weight in Kg Used for Protein Requirements: [...] NPO Anthropometric Measures: Height: 160 cm (5' 3) Current Body Weight: 76.3 kg (168 lb 3.4 oz) (12/21) Weight Source: Not Specified Admission Body Weight: 76.7 kg (169 lb) (stated 12/14) Usual Body Weight: 77.6 kg (171 lb) (only weight noted per chart review is from 11/14/22: 171#) % Weight Change (Calculated): 0.6 Reynolds Body Weight (lbs) (Calculated): 115 lbs Reynolds Body Weight (Kg) (Calculated): 52 kg % Reynolds Body Weight (Calculated): 149.6 % BMI (kg/m2) (Calculated): 29.8 Weight Adjustment For: No Adjustment BMI Categories: Overweight (BMI 25.0-29.9) Wt Readings from Last 10 Encounters: 12/21/22 76.3 kg (168 lb 3.4 oz) 12/08/22 76.9 kg (169 lb 9.6 oz) 11/29/22 77.6 kg (171 lb) Nutrition Diagnosis: Inadequate oral intake related to swall (more content not included)... Normal [facility] Progress Note Physical Therapy Facility/Department: U Physical Therapy Daily Treatment Note NAME: Dayana [...] The primary encounter diagnosis was 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 A diagnosis of Coronary artery disease involving coronary bypass graft of morongo heart with angina pectoris with documented spasm ([facility]) was also pertinent to this visit. has a past medical history of Anxiety, Atherosclerosis of coronary artery bypass graft of morongo heart without angina pectoris, Chronic kidney disease, GERD (gastroesophageal reflux disease), Hypertension, Ischemic cardiomyopathy, Mobitz type II atrioventricular block, STEMI (ST elevation myocardial infarction) ([facility]) (11/16/2018), Stroke ([facility]), and Vertigo. has a past surgical history that includes Coronary stent placement (12/19/2018); Cardiac pacemaker placement (08/02/2018); and Back surgery. Restrictions Restrictions/Precautio ns Restrictions/Precautio ns: General Precautions, Fall Risk, Surgical Protocols Required [...] eventually go home to her dtr's in [place]. Pain Assessment Pain Assessment: (Pt reported no [...] UE self support and Dependent BM pericare. Ex (more content not included)... Normal [facility] Progress Note -- Attestation signed by Rhett Scott DO at 12/21/2022 5:04 PM This patient was seen and personally examined by me. Labs, imaging studies and electronic medical record reviewed. See [x]progress note []H&P []Consult documented by [x]ice house supervisor / JACEY which reflects my hpi, pmh, psh, ros, fh, sh as well with my additions, as I discussed with the [x]ice house supervisor / JACEY. For my exam, assessment and plan see below. Please see full note for additional information, physical exam. Discussed with: [x]Residents/JACEY [x]Patient/Family[x]RN [] Available Consultants []SW/TCC[]Other Personally Reviewed: [x]Epic notes[x]Radiology studies [x]Labs []EKG []Other POD 7, CABG , MV repair, Dr Lai. No acute events. HFrEF . Dysphagia. TANDEM MILL OPERATOR DHT. Progressing appropriately Cardiothoracic Surgery/[facility] Progress Note PATIENT NAME: Dayana Quiñones DATE: 12/21/22 HPI: 82-year-old female seen in outpatient setting for surgical evaluation due to progressive shortness of breath with exertion. Patient with significant cardiac history: CAD (ME-October 2018-NEGRO to LAD and LCx; November 2018-NEGRO to RCA), paroxysmal atrial fibrillation, HFrEF-30%, 2+ MR, Surgery was discussed and patient consented to intervention. Surgery/Procedure: 12/14/22: CABGx2 (PEDRAZA LAD, SVG to OM1) MVRepair (28 ring) LAAL with atriclip with Dr. Lai Interval History: 12/21/22, POD# 7: VSS overnight, [...] Heart Rate: 70 Resp: 14 Temp: 36.8 ?C (98.2 ?F), Temp Source: Temporal BMI (Calculated): 29.8 CXR: [...] TRINI on CKD GERD S/p PPM 08/02/2018 ([facility]) Hx Stroke Paroxsymal Afib/mobitz type II AV [...] goal rate 35 ml/hr Insulin per Endo TANDEM MILL OPERATOR following - NPO, with dobbhoff TF PT/OT: 12/20- IPR Pulmonary hygiene: IS and Acapella GI prophy: IV protonix DVT prophy:TEDs, SCDs (more content not included)... Normal [facility] XR CHEST 1 VIEWon 12-21-2022 XR CHEST 1 VIEW Patient Name: DAYANA JULIAN : 1940 Exam Date/Time: 12/21/2022 05:27 Procedure: XR CHEST 1 VIEW Ordering Provider: REBOLLAR ANDREW Reason For Exam: Shortness of breath EXAMINATION: CHEST RADIOGRAPH (SINGLE VIEW AP OR PA) Clinical History: Shortness of breath Comparison: Chest radiograph 12/20/2022, chest CT 02/16/2023 RESULT: See impression IMPRESSION: Lines, tubes, and devices: Feeding tube extends below the diaphragm below the [id number]. Dual-chamber pacemaker with leads in similar position. Lungs and pleura: Blunting of the costophrenic angles likely due to small effusions with associated atelectasis. Superimposed infectious/inflammator y process in the left lung base is not entirely excluded. No sizable pneumothorax. Prominence of the central pulmonary vasculature. Interstitial prominence is slightly decreased. Cardiomediastinal silhouette: Stable cardiomediastinal silhouette. Status post median sternotomy. Left atrial appendage ligation clip. Retrocardiac opacity relate to a hiatal hernia. Other: Degenerative changes of the thoracic spine. Report Dictated on Electronically Signed By: Lobo Gibbs MD Electronically Signed Date/Time: 12/21/2022 9:14 AM EDT Normal [facility] XR Chest Single viewon 12-21 [facility] EMERGENCY DEPARTMENT RADIOLOGY [facility] RADIOLOGY [facility] Radiology Study observation (narrative) [facility] Basic metabolic 1998 panelOr dered By: Juan Serrano on 12-20-2022 Anion gap [Moles/Vol] 13 mmol/L 3 - 13 mmol/L [facility] Calcium [Mass/Vol] 9.2 mg/dL 8.4 - 10. 4 mg/dL [facility] Chloride [Moles/Vol] 102 mmol/L 98 - 10 7 mmol/L [facility] CO2 [Moles/Vol] 27 mmol/L 22 - 30 mmol/L [facility] Creatinine [Mass/Vol] 1.12 mg/dL High 0.52 - 1.04 mg/dL [facility] GFR/1.73 sq M.predicted MDRD (S/P/Bld) [Vol rate/Area] 48.9 mL/min/{1.73_m2} Low - PINF [facility] Glucose [Mass/Vol] 121 mg/dL High 70 - 100 mg/dL [facility] Interpretation and review of laboratory results Abnormal [facility] Potassium [Moles/Vol] 3.2 mmol/L Low 3.5 - 5.1 mmol/L [facility] Sodium [Moles/Vol] 142 mmol/L 135 - 145 mmol/L [facility] Urea nitrogen [Mass/Vol] 56 mg/dL High 7 - 17 mg/dL [facility] CAREPLNon 12-20-2022 CAREPLN Problem: Pain - Adul t Goal: Verbalizes/displays adequate comfort level or baseline comfort level Outcome: Progressing Problem: Safety - Adult Goal: Free from fall injury Outcome: Progressing Problem: Discharge Planning Goal: Discharge to home or other facility with appropriate resources Outcome: Progressing Problem: Chronic Conditions and Co-morbidities Goal: Patient's chronic conditions and co-morbidity symptoms are monitored and maintained or improved Outcome: Progressing Problem: Knowledge Deficit Goal: Patient/family/caregiv er demonstrates understanding of disease process, treatment plan, medications, and discharge instructions Outcome: Progressing Problem: Potential for Compromised Skin Integrity Goal: Skin Integrity is Maintained or Improved Outcome: Progressing Problem: Potential for Compromised Skin Integrity Goal: Nutritional status is improving Outcome: Progressing Problem: Urinary Incontinence Goal: Perineal skin integrity is maintained or improved Outcome: Progressing Problem: Problem Interventions Goal: Assess Nutritional Intake Outcome: Progressing Normal [facility] CBC panel Auto (Bld)on 12-20 Erythrocyte distribution width (RBC) [Ratio] 15.3 % High 11.5 - 14.5 % [facility] Hematocrit (Bld) [Volume fraction] 32.3 % Low 35.0 - 47.0 % [facility] Hemoglobin (Bld) [Mass/Vol] 10.7 g/dL Low 11.7 - 16.0 g/dL [facility] Interpretation and review of laboratory results Abnormal [facility] MCH (RBC) [Entitic mass] 29.9 pg 26. 0 - 34.[address] [facility] MCHC (RBC) [Mass/Vol] 33.3 % 32.0 - 36.0 % [facility] MCV (RBC) [Entitic vol] 89.7 fL 80.0 - 98.[address] [facility] Platelet mean volume (Bld) [Entitic vol] 9.8 fL 7.4 - 12.[address] [facility] Platelets (Bld) [#/Vol] 120 10*3/uL Low 140 - 440 10*3/uL [facility] RBC (Bld) [#/Vol] 3.60 10*6/uL Low 3.8 - 5.20 10*6/uL [facility] WBC (Bld) [#/Vol] 14.9 10*3/uL High 3.6 - 10.7 10*3/uL [facility] Consulton 12-20-[address] [facility] Heart & Vascular [place] [facility] Cardiology /Electrophysiology Consult Note Reason for Consult/Chief Complaint: GDMT and HF optimization Referring provider: Dr. Lai Established mold sander: Dr. Dunn ([facility]) History of Present Illness: Dayana Quiñones is a 82 y.o. female with hx of pAF, CAD (ME-October 2018-NEGRO to LAD and LCx; November 2018-NEGRO [...] 70 Resp: 18 20 20 Temp: 36.2 ?C (97.2 ?F) 36.2 ?C (97.1 ?F) 36.2 ?C (97.1 ?F) TempSrc: Temporal Temporal Temporal SpO2: 94% 95% [...] Thought content normal. Laboratory Tests: Recent Labs 12/18/22 0306 12/19/22 0152 12/19/22 0421 12/20/22 0213 NA 144 143 -- 142 K 4.0 3.4* 4.6 3.2* CL 105 101 -- 102 CO2 25 28 -- 27 BUN 48* 48* -- 56* CREATININE 1.27* 1.12* -- 1.12* EGFR 42.0* 48.9* -- 48.9* No results for input(s): CKTOTAL, CKMB, CKMBINDEX, TROPONINI in the last 72 hours. Recent Labs 12/18/22 0306 12/19/22 0152 12/20/22 [...] results found for: IRON, TIBC, FERRITIN Radiology: CX (more content not included)... Normal [facility] Consult [facility] Wound Care CONSULT Note Dayana Quiñones AGE: 82 y.o. GENDER: female : 1940 Subjective: HISTORY of PRESENT ILLNESS HPI Dayana Quiñones is a 82 y.o. female who presents for a wound consult. HPI: Ms. Quiñones is a 82-year-old female seen in outpatient setting for surgical evaluation due to progressive shortness of breath with exertion. Patient with significant cardiac history: CAD (ME-October 2018-NEGRO to LAD and LCx; November 2018-NEGRO to RCA), paroxysmal atrial fibrillation, HFrEF-30%, 2+ MR. Patient underwent CABG, MVR, left atrial appendage and ELA on 12/14/22. Wound Care consulted for right chest and left leg. PAST MEDICAL HISTORY Past Medical History: Diagnosis Date Anxiety Atherosclerosis of coronary artery bypass graft of morongo heart without angina pectoris Chronic kidney disease GERD (gastroesophageal reflux disease) Hypertension Ischemic cardiomyopathy Mobitz type II atrioventricular block STEMI (ST elevation myocardial infarction) ([facility]) 11/16/2018 Stroke ([facility]) Vertigo PAST SURGICAL HISTORY Past Surgical History: [...] Patient Position: Sitting) Pulse 70 Temp 36.2 ?C (97.1 ?F) (Temporal) Resp 20 Ht 1.6 m (5' 3) Wt 76.6 kg (168 lb 14 oz) SpO2 95% PF 55 L/min BMI 29.91 kg/m? PHYSICAL [...] tear - Apply skin prep then leave CENTRAL OFFICE INSTALLER daily and PRN Left calf: Surgical - Leave CENTRAL OFFICE INSTALLER - monitor for any s/s of infection Nutritional support Wound Care to follow Recommend to follow up at [facility] wound care center after hospital discharge. Any questions or concerns please secure chat [facility] wound/ostomy. Thank you for the consult! I personally [...] ROS, impression/plan, and examination may have been (more content not included)... Normal [facility] Laboratory - Chemistry and C hemistry - challengeon 12-20-2022 Potassium [Moles/Vol] 3.4 mmol/L Low 3.5 - 5.1 mmol/L [facility] Magnesium [Mass/Vol] 2.5 mg/dL High 1.6 - 2 .3 mg/dL [facility] Magnesium [Mass/Vol]on 12-20 Interpretation and review of laboratory results Abnormal [facility] Potassium [Moles/Vol]on 11-29 Interpretation and review of laboratory results Abnormal [facility] Progress Noteon 12-20-2022 Progress Note Speech-Language Pathology SPEECH LANGUAGE PATHOLOGY [facility] Dysphagia Treatment Note Patient Name: Dayana Quiñones [...] allows patient who have been identified by TANDEM MILL OPERATOR to participate in ice chips/or sips of [...] prior to any ice chips/sips of WATER. ([place] teeth, rinse with mouth wash, cleanse oral cavity with swab/toothette) 3. Most upright sitting, no straws, small single sips/ice chips (other strategies as stated) Plan & Recommendations Plan: Continue Dobbhoff TF. OK for Free Water protocol. Continue acute TANDEM MILL OPERATOR therapy per initial plan of care and [...] Expected End: 12/30/22 Resolved: 12/17/22 Therapy Time TANDEM MILL OPERATOR Individual Minutes Time In: 1105 Time Out: 1130 Minutes: [address] [facility] Progress Note Physical Therapy Facility/Department: [facility] Physical Therapy Daily Treatment Note NAME: Dayana [...] The primary encounter diagnosis was 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 A diagnosis of Coronary artery disease involving coronary bypass graft of morongo heart with angina pectoris with documented spasm ([facility]) was also pertinent to this visit. has a past medical history of Anxiety, Atherosclerosis of coronary artery bypass graft of morongo heart without angina pectoris, Chronic kidney disease, GERD (gastroesophageal reflux disease), Hypertension, Ischemic cardiomyopathy, Mobitz type II atrioventricular block, STEMI (ST elevation myocardial infarction) ([facility]) (11/16/2018), Stroke ([facility]), and Vertigo. has a past surgical history that includes Coronary stent placement (12/19/2018); Cardiac pacemaker placement (08/02/2018); and Back surgery. Restrictions Restrictions/Precautio ns Restrictions/Precautio ns: General Precautions, Fall Risk, Surgical Protocols Required [...] think I had an aciident in the chair. Pt agreeable to PT. nsg cleared Pt for PT. Patient Stated Goal: To get stronger, to eventually go home to her dtr's in [place]. Pain Assessment Pain Assessment: (Pt reported no increased pain during PT Rx) Cognition/Orientation Overall Cognitive Status: WF Arousal/Alertness: Delayed responses to stimuli Following Commands: [...] for static standing balance for pericare from PRODUCTION MACHINIST/RN, x3 rep Exer (more content not included)... Normal [facility] Progress Note -- Attestation signed by Rhett Scott DO at 12/20/2022 4:00 PM This patient was seen and personally examined by me. Labs, imaging studies and electronic medical record reviewed. See [x]progress note []H&P []Consult documented by [x]ice house supervisor / JACEY which reflects my hpi, pmh, psh, ros, fh, sh as well with my additions, as I discussed with the [x]ice house supervisor / JACEY. For my exam, assessment and plan see below. Please see full note for additional information, physical exam. Discussed with: [x]Residents/JACEY [x]Patient/Family[x]RN [] Available Consultants []SW/TCC[]Other Personally Reviewed: [x]Epic notes[x]Radiology studies [x]Labs []EKG []Other Chang Changes to plan: with limited assessment and plan: no acute events. DBH. Tolerating po/ bowel regiment. AC resumed for afib. Discharge planning . CAD s/p CABG Severe MR s/p MVRepair HFrEF 30 Trini on ckd Ppm Afib, Dysphagia. Plan:Resumed po GDMT, AC. DHT ongoing eval with TANDEM MILL OPERATOR MBSS. Stable oxygenation and ventilation Cardiothoracic Surgery/[facility] Progress Note PATIENT NAME: Dayana Quiñones DATE: 12/20/22 HPI: 82-year-old female seen in outpatient setting for surgical evaluation due to progressive shortness of breath with exertion. Patient with significant cardiac history: CAD (ME-October 2018-NEGRO to LAD and LCx; November 2018-NEGRO to RCA), paroxysmal atrial fibrillation, HFrEF-30%, 2+ MR, Surgery was discussed and patient consented to intervention. Surgery/Procedure: 12/14/22: CABGx2 (PEDRAZA LAD, SVG to OM1) MVRepair (28 ring) LAAL with atriclip with Dr. Lai Interval History: 12/20/22, POD# 6: VSS, AV [...] Heart Rate: 70 Resp: 20 Temp: 36.2 ?C (97.1 ?F), Temp Source: Temporal BMI (Calculated): 29.92 CXR: [...] TRINI on CKD GERD S/p PPM 08/02/2018 ([facility]) Hx Stroke Paroxsymal Afib/mobitz type II AV [...] for assistance with GDMT Insulin per Endo TANDEM MILL OPERATOR following - NPO, with dobbhoff TF PT/OT: 12/19- IPR Pulmonary hygiene: IS and Acapella GI prophy: IV protonix DVT prophy:TEDs, SCDs, and Patient on OAC/NOAC Disposition: TBD Central Line: []Yes [x] No A (more content not included)... Normal [facility] XR CHEST 1 VIEWon 12-20-2022 XR CHEST 1 VIEW Patient Name: DAYANA JULIAN : 1940 Exam Date/Time: 12/20/2022 05:26 Procedure: XR CHEST 1 VIEW Ordering Provider: REBOLLAR ANDREW Reason For Exam: Shortness of breath CHEST - PORTABLE: CLINICAL INDICATION: Respiratory distress for follow up. . TECHNIQUE: Portable AP COMPARISON: One day ago IMPRESSION: FINDINGS/IMPRESSION: Limitations: Patient positioning/rotation Lines, tubes, and devices: Dobbhoff feeding catheter with its tip extending into the stomach not completely included on the [id number]. Multilead left-sided pacemaker device is unchanged. Right IJ central venous catheter has been removed Cardiomediastinal silhouette: Cardiomegaly with postsurgical changes. Lungs/Pleura: Left pleural effusion with left basilar atelectasis/pneumonia fairly similar in appearance. Trace right pleural effusion appears similar. Interstitial edema appears improved. No pneumothorax. Osseous structures: Unchanged in appearance. Soft tissues: No soft tissue abnormality is detected. Report Dictated on Electronically Signed By: Kelvin Badillo MD Electronically Signed Date/Time: 12/20/2022 10:04 AM EDT Normal [facility] XR Chest Single viewon 12-20 [facility] EMERGENCY DEPARTMENT RADIOLOGY [facility] RADIOLOGY SYSTEM [facility] Radiology Study observation (narrative) [facility] Basic metabolic 1998 panelon 12-19-2022 Anion gap [Moles/Vol] 13 mmol/L 3 - 13 mmol/L [facility] Calcium [Mass/Vol] 9.0 mg/dL 8.4 - 10. 4 mg/dL [facility] Chloride [Moles/Vol] 101 mmol/L 98 - 10 7 mmol/L [facility] CO2 [Moles/Vol] 28 mmol/L 22 - 30 mmol/L [facility] Creatinine [Mass/Vol] 1.12 mg/dL High 0.52 - 1.04 mg/dL [facility] GFR/1.73 sq M.predicted MDRD (S/P/Bld) [Vol rate/Area] 48.9 mL/min/{1.73_m2} Low - PINF [facility] Glucose [Mass/Vol] 104 mg/dL High 70 - 100 mg/dL [facility] Potassium [Moles/Vol] 3.4 mmol/L Low 3.5 - 5.1 mmol/L [facility] Sodium [Moles/Vol] 143 mmol/L 135 - 145 mmol/L [facility] Urea nitrogen [Mass/Vol] 48 mg/dL High 7 - 17 mg/dL [facility] CBC panel Auto (Bld)on 12-19 Erythrocyte distribution width (RBC) [Ratio] 15.5 % High 11.5 - 14.5 % [facility] Hematocrit (Bld) [Volume fraction] 30.2 % Low 35.0 - 47.0 % [facility] Hemoglobin (Bld) [Mass/Vol] 10.1 g/dL Low 11.7 - 16.0 g/dL [facility] Interpretation and review of laboratory results Abnormal [facility] MCH (RBC) [Entitic mass] 30.1 pg 26. 0 - 34.[address] [facility] MCHC (RBC) [Mass/Vol] 33.4 % 32.0 - 36.0 % [facility] MCV (RBC) [Entitic vol] 90.2 fL 80.0 - 98.[address] [facility] Platelet mean volume (Bld) [Entitic vol] 9.9 fL 7.4 - 12.[address] [facility] Platelets (Bld) [#/Vol] 75 10*3/uL Low 140 - 440 10*3/uL [facility] RBC (Bld) [#/Vol] 3.34 10*6/uL Low 3.8 - 5.20 10*6/uL [facility] WBC (Bld) [#/Vol] 13.3 10*3/uL High 3.6 - 10.7 10*3/uL [facility] Laboratory - Chemistry and C hemistry - challengeon 12-19-2022 Potassium [Moles/Vol] 4.6 mmol/L 3.5 - 5.1 mmol/L [facility] Magnesium [Mass/Vol] 2.4 mg/dL High 1.6 - 2 .3 mg/dL [facility] No Panel Informationon 12-19 Interpretation and review of laboratory results Abnormal [facility] Potassium [Moles/Vol]on 11-29 Interpretation and review of laboratory results Normal [facility] Progress Noteon 12-19-2022 Progress Note Speech-Language Pathology SPEECH LANGUAGE PATHOLOGY [facility] Dysphagia Treatment Note Patient Name: Dayana Quiñones Evaluation Date: 12/19/2022 Date of : 1940 Admission Date: 12/14/2022 5:46 AM Age: 82 y.o. Room/Bed: [facility] A Subjective Patient alert and cooperative. Seen upright in bedside chair. No visitors at bedside. Spoke with RN who cleared pt for treatment. Tomasz just placed. Pain: RN managing pain. PPE [...] allows patient who have been identified by TANDEM MILL OPERATOR to participate in ice chips/or sips of [...] prior to any ice chips/sips of WATER. ([place] teeth, rinse with mouth wash, cleanse oral cavity with swab/toothette) 3. Most upright sitting, no straws, small single sips/ice chips (other strategies as stated) Plan & Recommendations Plan: Continue acute TANDEM MILL OPERATOR therapy per initial plan of care and [...] Expected End: 12/30/22 Resolved: 12/17/22 Therapy Time TANDEM MILL OPERATOR Individual Minutes Time In: 1145 Time Out: 1200 Minutes: 15 OMARI Maciel [facility] Progress Note Physical Therapy Facility/Department: [facility] Physical Therapy Initial Evaluation NAME: Dayana Quiñones [...] The primary encounter diagnosis was 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 A diagnosis of Coronary artery disease involving coronary bypass graft of morongo heart with angina pectoris with documented spasm ([facility]) was also pertinent to this visit. has a past medical history of Anxiety, Atherosclerosis of coronary artery bypass graft of morongo heart without angina pectoris, Chronic kidney disease, GERD (gastroesophageal reflux disease), Hypertension, Ischemic cardiomyopathy, Mobitz type II atrioventricular block, STEMI (ST elevation myocardial infarction) ([facility]) (11/16/2018), Stroke ([facility]), and Vertigo. has a past surgical history that includes Coronary stent placement (12/19/2018); Cardiac pacemaker placement (08/02/2018); and Back surgery. Restrictions Restrictions/Precautio ns Restrictions/Precautio ns: General Precautions, Fall Risk, Surgical Protocols Required [...] eventually go home to her dtr's in [place]. Social/Functional History Social/Functional History Lives With: Alone Type of Home: House Home Layout: One level Home Access: Stairs to enter with rails Entrance Stairs - Number of Steps: 3 Home Equipment: (Dtr may have a FWW) ADL Assistance: Independent Homemaking Assistance: Independent Ambulation Assistance: Independent With device?: No Transfer Assistance: Independent Active Anchor Tack Puller: Yes Additional Comments: Lives alone, limited support in the area for homegoing. But per pt repots, she may go to her dtr's in [place] at [facility] with 1 story set up and level [...] 2 (seated rest break in chair in [place] prior to returning to room) Comments 1: Pt reported chief c/o fatigue as limiting factor. Denied pain and SOB throughout. HR 80's throughout. Balance Posture: Fair Sitting - Static: Good Sit (more content not included)... Normal [facility] Progress Note -- Attestation signed by Rhett Scott DO at 12/19/2022 5:38 PM This patient was seen and personally examined by me. Labs, imaging studies and electronic medical record reviewed. See [x]progress note []H&P []Consult documented by [x]ice house supervisor / JACEY which reflects my hpi, pmh, psh, ros, fh, sh as well with my additions, as I discussed with the [x]ice house supervisor / JACEY. For my exam, assessment and plan see below. Please see full note for additional information, physical exam. Discussed with: [x]Residents/JACEY [x]Patient/Family[x]RN [] Available Consultants []SW/TCC[]Other Personally Reviewed: [x]Epic notes[x]Radiology studies [x]Labs []EKG []Other Chang Changes to plan: with limited assessment and plan: No acute events. NPO , TANDEM MILL OPERATOR. DHT placement. Planned repeat MBSS. Echo HFrEF 30, rvsp 35 A/P CAD s/p CABG Severe MR s/p MVRepair HFrEF 30 Trini on ckd Ppm Afib, Dysphagia. Plan:Resumed po GDMT, AC. DHT placement due to dyphagia, ongoing eval with TANDEM MILL OPERATOR . Stable oxygenation and ventilation. Cardiothoracic Surgery/[facility] Progress Note PATIENT NAME: Dayana Quiñones DATE: 12/19/22 HPI: 82-year-old female seen in outpatient setting for surgical evaluation due to progressive shortness of breath with exertion. Patient with significant cardiac history: CAD (ME-October 2018-NEGRO to LAD and LCx; November 2018-NEGRO to RCA), paroxysmal atrial fibrillation, HFrEF-30%, 2+ MR, Surgery was discussed and patient consented to intervention. Surgery/Procedure: 12/14/22: CABGx2 (PEDRAZA LAD, SVG to OM1) MVRepair (28 ring) LAAL with atriclip with Dr. Lai Interval History: 12/19/22, POD# 5: VSS, AV paced rhythm. On 2L NC. TANDEM MILL OPERATOR following, continue NPO, plan to repeat MBSS [...] Heart Rate: 70 Resp: 16 Temp: 36 ?C (96.8 ?F), Temp Source: Temporal BMI (Calculated): 30.27 CXR: [...] TRINI on CKD GERD S/p PPM 08/02/2018 ([employer]) Hx Stroke Paroxsymal Afib/mobitz type II AV block Anxiety Post operative Pulm Management: Normal Post-operative C (more content not included)... Normal [facility] XR ABDOMEN 1 VIEWon 12-20-19 23 XR ABDOMEN 1 VIEW Patient Name: DAYANA JULIAN : 1940 Exam Date/Time: 12/19/2022 12:24 Procedure: XR ABDOMEN 1 VIEW Ordering Provider: LAI NKEM Reason For Exam: dobhoff placement SUPINE ABDOMEN (KUB) CLINICAL INDICATION: Dobbhoff placement A supine plain film of the abdomen was obtained. COMPARISON: None FINDINGS: Dobbhoff type feeding tube terminates within the distal stomach or proximal duodenum. The visualized loops of bowel within the abdomen demonstrate a nonobstructive gas pattern. There is residual contrast material within the colon. The lower abdomen and pelvis is not included in the [id number] on this single film. Free air under the diaphragm cannot be adequately assessed on this single, supine view. Upright or decubitus films may be obtained if clinically warranted. No pathologic calcifications are identified. Within the visualized portion of the lung bases, there is a left-sided pleural effusion with left retrocardiac atelectasis or possibly infiltrate, partially obscured by the cardiac silhouette. IMPRESSION: Dobbhoff type feeding tube terminates within the distal stomach or proximal duodenum. Nonobstructive bowel gas pattern. Report Dictated on Electronically Signed By: Howard Bettencourt MD Electronically Signed Date/Time: 12/19/2022 2:08 PM EDT Normal [facility] XR Abdomen Single viewon [facility] Radiology Study observation (narrative) Brandon Dennis [facility] XR CHEST 1 VIEWon 12-19-2022 XR CHEST 1 VIEW [facility]: [facility] : 1940 [id number] Exam Date/Time: 12/19/2022 05:27 Procedure: XR CHEST 1 VIEW Ordering Provider: REBOLLAR ANDREW Reason For Exam: Shortness of breath PORTABLE CHEST X-RAY CLINICAL INDICATION: Shortness of breath A portable frontal view of the chest was obtained. COMPARISON: 12/18/2022 FINDINGS: Heart size is mildly enlarged. Sternotomy wires, right jugular catheter, left-sided pacemaker device, and left atrial appendage clip are unchanged. There is pulmonary vascular congestion, similar to the prior examination. Left mid and lower lung infiltrate or edema with small to moderate left pleural effusion is grossly similar. More patchy infiltrate or edema within the right mid and lower lung with a small right pleural effusion appears unchanged. No new areas of consolidation are seen. There are degenerative changes of the spine. IMPRESSION: No significant change when compared with the previous study. Report Dictated on Electronically Signed By: Howard Bettencourt MD Electronically Signed Date/Time: 12/19/2022 8:02 AM EDT Normal [facility] XR Chest Single viewon 12-19 [facility] Radiology Study observation (narrative) Brandon Dennis [facility] XR Chest Single viewOrdered By: Howard Bettencourt on 12-19-2022 [facility] Work Phone: Basic metabolic 1998 panelon 12-18-2022 Anion gap [Moles/Vol] 13 mmol/L 3 - 13 mmol/L [facility] Calcium [Mass/Vol] 9.0 mg/dL 8.4 - 10. 4 mg/dL [facility] Chloride [Moles/Vol] 105 mmol/L 98 - 10 7 mmol/L [facility] CO2 [Moles/Vol] 25 mmol/L 22 - 30 mmol/L [facility] Creatinine [Mass/Vol] 1.27 mg/dL High 0.52 - 1.04 mg/dL [facility] GFR/1.73 sq M.predicted MDRD (S/P/Bld) [Vol rate/Area] 42.0 mL/min/{1.73_m2} Low - PINF [facility] Glucose [Mass/Vol] 95 mg/dL 70 - 100 mg/dL [facility] Potassium [Moles/Vol] 4.0 mmol/L 3.5 - 5.1 mmol/L [facility] Sodium [Moles/Vol] 144 mmol/L 135 - 145 mmol/L [facility] Urea nitrogen [Mass/Vol] 48 mg/dL High 7 - 17 mg/dL [facility] CBC panel Auto (Bld)Ordered By: Petrona Stevens on 12-18-2022 Erythrocyte distribution width (RBC) [Ratio] 15.6 % High 11.5 - 14.5 % [facility] Hematocrit (Bld) [Volume fraction] 28.4 % Low 35.0 - 47.0 % [facility] Hemoglobin (Bld) [Mass/Vol] 9.3 g/dL Low 11.7 - 16.0 g/dL [facility] Interpretation and review of laboratory results Abnormal [facility] MCH (RBC) [Entitic mass] 29.4 pg 26. 0 - 34.[address] [facility] MCHC (RBC) [Mass/Vol] 32.6 % 32.0 - 36.0 % [facility] MCV (RBC) [Entitic vol] 90.2 fL 80.0 - 98.[address] [facility] Platelet mean volume (Bld) [Entitic vol] 10.1 fL 7.4 - 12.4 fL [facility] Platelets (Bld) [#/Vol] 58 10*3/uL Low 140 - 440 10*3/uL [facility] RBC (Bld) [#/Vol] 3.15 10*6/uL Low 3.8 - 5.20 10*6/uL [facility] WBC (Bld) [#/Vol] 13.0 10*3/uL High 3.6 - 10.7 10*3/uL [facility] Laboratory - Chemistry and C hemistry - challengeon 12-18-2022 Magnesium [Mass/Vol] 2.6 mg/dL High 1.6 - 2 .3 mg/dL [facility] No Panel Informationon 12-18 Interpretation and review of laboratory results [facility] Blood Expiration Date S [facility] Blood Expiration Date [id number] S [facility] Crossmatch interpretation COMP [facility] Dispense Status Released from Crossmatch [facility] Product Blood Type 5100 [facility] PRODUCT CODE [id number] [facility] PRODUCT CODE [id number] [facility] ABO O [facility] Number [id number] [facility] [id number] [facility] RH Positive [facility] Unit Volume 300 mL [facility] Progress Noteon 12-18-2022 Progress Note Speech-Language Pathology SPEECH LANGUAGE PATHOLOGY [facility] Dysphagia Treatment Note Patient Name: Dayana Quiñones [...] allows patient who have been identified by TANDEM MILL OPERATOR to participate in ice chips/or sips of [...] prior to any ice chips/sips of WATER. ([place] teeth, rinse with mouth wash, cleanse oral [...] repeat the MBSS on . Continue acute TANDEM MILL OPERATOR therapy per initial plan of care and [...] Expected End: 12/30/22 Resolved: 12/17/22 Therapy Time TANDEM MILL OPERATOR Individual Minutes Time In: 1145 Time Out: 1210 Minutes: 25 OMARI Maciel [facility] Progress Note -- Attestation signed by Rhett Scott DO at 12/18/2022 4:20 PM This patient was seen and personally examined by me. Labs, imaging studies and electronic medical record reviewed. See [x]progress note []H&P []Consult documented by [x]ice house supervisor / JACEY which reflects my hpi, pmh, psh, ros, fh, sh as well with my additions, as I discussed with the [x]ice house supervisor / JACEY. For my exam, assessment and plan see below. Please see full note for additional information, physical exam. Discussed with: [x]Residents/JACEY [x]Patient/Family[x]RN [] Available Consultants []SW/TCC[]Other Personally Reviewed: [x]Epic notes[x]Radiology studies [x]Labs []EKG []Other Chang Changes to plan: with limited assessment and plan: No acute events. Somonlent. Ct reviewed baseline interstitial peripheral changes with likely chronic aspiration -mvCAD s/p CABGx2 -MVR s/p mitral valve repair -HFrEF -HTN -CKD -GERD -PPM (2019) -Prior CVA -pAF, mobitz II AV block -Anxiety -Leukocytosis- reactive -Thrombocytopenia - consumptive -ABLA -ILD Plan: TANDEM MILL OPERATOR yuki. NPO, MBSS, , OP strengthening. Npo at [...] at least 35 minutes so far today. Cardiothoracic Surgery/CCM Progress Note PATIENT NAME: Dayana Quiñones DATE: 12/18/22 HPI: 82-year-old female seen in outpatient setting for surgical evaluation due to progressive shortness of breath with exertion. Patient with significant cardiac history: CAD (ME-October 2018-NEGRO to LAD and LCx; November 2018-NEGRO to RCA), paroxysmal atrial fibrillation, HFrEF-30%, 2+ MR, Surgery was discussed and patient consented to intervention. Surgery/Procedure: 12/14/22: CABGx2 (PEDRAZA LAD, SVG to OM1) MVRepair (28 ring) LAAL with atriclip with Dr. Lai Interval History: 12/18/22, POD# 4: VSS overnight, paced rhythm. On 2L NC. Cr improving 1.27 today. Incontinent of urine overnight. Failed barium swallow- continue NPO per TANDEM MILL OPERATOR. Needs BM. Review of Systems Constitutional: Positive [...] Heart Rate: 72 Resp: 18 Temp: 36.7 ?C (98 ?F), Temp Source: Temporal BMI (Calculated): 30.53 CXR: [...] TRINI on CKD GERD S/p PPM 08/02/2018 ([facility]) Hx Stroke Paroxsymal Afib/mobitz type II AV block Anxiety Post operative Pulm Management: Bebe (more content not included)... Normal [facility] Heart TransthoracicOrdere d By: Joseph Balderrama on 12-18-2022 AR Max Velocity PISA 3.6 m/s [facility] Work Phone: AR PHT 711.[address] [facility] Work Phone: AV Mean Gradient [address] [facility] Work Phone: AV Mean Velocity 1.5 m/s [facility] Work Phone: AV Peak Gradient [address] [facility] Work Phone: AV Peak Velocity 2.4 m/s [facility] Work Phone: AV Velocity Ratio 0.54 [facility] Work Phone: AV VTI 43.8 cm [facility] Work Phone: EF BP 39 % Abnormal 55 - 100 % [facility] Work Phone: Est. RA Pressure [address] [facility] Work Phone: Fractional Shortening 2D 27 % 28 - 44 % [facility] Work Phone: Interpretation and review of laboratory results Abnormal [facility] Work Phone: IVC Diameter 1.8 cm [facility] Work Phone: IVSd 1.1 cm Abnormal 0.6 - 0.9 cm [facility] Work Phone: LA Diameter 3.5 cm [facility] Work Phone: LA Size Index 1.93 cm/m2 [facility] Work Phone: LA Volume 2C 74 mL Abnormal 22 - 52 mL [facility] Work Phone: LA Volume 4C 77 mL Abnormal 22 - 52 mL [facility] Work Phone: LA Volume A/L 83 mL [facility] Work Phone: LA Volume BP 76 mL Abnormal 22 - 52 mL [facility] Work Phone: LA Volume Index 2C 41 mL/m2 Abnormal 16 - 34 mL/m2 [facility] Work Phone: LA Volume Index 4C 43 mL/m2 Abnormal 16 - 34 mL/m2 [facility] Work Phone: LA Volume Index A/L 46 mL/m2 16 - 34 mL/m2 [facility] Work Phone: LA Volume Index BP 42 ml/m2 Abnormal 16 - 34 ml/m2 [facility] Work Phone: LV EDV A2C 120 mL [facility] Work Phone: LV EDV A4C [address] [facility] Work Phone: LV EDV BP 120 mL Abnormal 56 - [address] [facility] Work Phone: LV EDV Index A2C 66 mL/m2 [facility] Work Phone: LV EDV Index A4C 65 mL/m2 [facility] Work Phone: LV EDV Index BP 66 mL/m2 [facility] Work Phone: LV Ejection Fraction A2C 39 % [facility] Work Phone: LV Ejection Fraction A4C 38 % [facility] Work Phone: LV ESV A2C [address] [facility] Work Phone: LV ESV A4C [address] [facility] Work Phone: LV ESV BP 73 mL Abnormal 19 - [address] [facility] Work Phone: LV ESV Index A2C 40 mL/m2 [facility] Work Phone: LV ESV Index A4C 40 mL/m2 [facility] Work Phone: LV ESV Index BP 40 mL/m2 [facility] [facility] Work Phone: LV Mass 2D 200.8 g Abnormal 67 - 162 g [facility] Work Phone: LV Mass 2D Index 110.9 g/m2 Abnormal 43 - 95 g/m2 [facility] Work Phone: LV RWT Ratio 0.[address] [facility] Work Phone: LVIDd 5.1 cm 3.9 - 5.3 cm [facility] Work Phone: LVIDd Index 2.82 cm/m2 [facility] Work Phone: LVIDs 3.[address] [facility] Work Phone: LVIDs Index 2.04 cm/m2 [facility] Work Phone: LVOT Mean Gradient [address] [facility] Work Phone: LVOT Peak Gradient [address] [facility] Work Phone: LVOT Peak Velocity 1.3 m/s [facility] Work Phone: LVOT VTI 23.[address] [facility] Work Phone: LVOT:AV VTI Index 0.[address] [facility] Work Phone: LVPWd 1.0 cm Abnormal 0.6 - 0.[address] [facility] Work Phone: MV Max Velocity 1.6 m/s [facility] Work Phone: MV Mean Gradient 5 mmHg [facility] Work Phone: MV Mean Velocity 1.0 m/s [facility] Work Phone: MV Peak Gradient 10 mmHg [facility] Work Phone: MV VTI 38.0 cm [facility] Work Phone: MV:LVOT VTI Index 1.61 [facility] Work Phone: RA Area 4C 56.[address] [facility] Work Phone: RA Area 4C 54.7 mL [facility] Work Phone: RV Basal Dimension 4.3 cm [facility] Work Phone: RV Longitudinal Dimension 7.4 cm [facility] Work Phone: RV Mid Dimension 3.2 cm [facility] Work Phone: RVSP 35 mmHg [facility] Work Phone: TR Max Velocity 2.84 m/s [facility] Work Phone: TR Peak Gradient 32 mmHg [facility] Work Phone: [facility] Work Phone: US Heart Transthoracicon CV CPACS XR CHEST 1 VIEWon 12-18-2022 XR CHEST 1 VIEW [facility] 1940 [id number] Exam Date/Time: 12/18/2022 05:25 Procedure: XR CHEST 1 VIEW Ordering Provider: REBOLLAR ANDREW Reason For Exam: Shortness of breath EXAMINATION: CHEST RADIOGRAPH (SINGLE VIEW AP OR PA) Clinical History: Shortness of breath Comparison: Chest radiograph 12/17/[address] 12/07/2022 RESULT: See impression IMPRESSION: Lines, tubes, and devices: Dual-chamber pacemaker with leads in similar position. Right IJ approach central venous catheter tip in the right atrium. Lungs and pleura: Prominence of central pulmonary vasculature. Peripheral reticular opacities, likely chronic though superimposed edema could appear similar. Opacity of the left lung base, may relate to small effusion with atelectasis though a superimposed infectious infiltrate process is not entirely excluded. Blunting of the right costophrenic angle may relate to scarring or possibly small effusion. No pneumothorax. Cardiomediastinal silhouette: Stable cardiomediastinal silhouette. Postoperative changes of median sternotomy. Atrial appendage ligation clip. Mediastinal surgical clips. Other: Small contrast is present likely within hiatal hernia. Report Dictated on Electronically Signed By: Lobo Gibbs MD Electronically Signed Date/Time: 12/18/2022 8:59 AM EDT Normal [facility] XR Chest Single viewon 12-18 [facility] RADIOLOGY [facility] Rad[facility]ative[facility] Single viewOrdered By: Lobo Gibbs on 12-18-2022 [facility] Work Phone: Basic metabolic 1998 panelon 12-17-2022 Anion gap [Moles/Vol] 14 mmol/L High 3 - 13 mmol/L [facility] Calcium [Mass/Vol] 8.6 mg/dL 8.4 - 10. 4 mg/dL [facility] Chloride [Moles/Vol] 108 mmol/L High 98 - 10 7 mmol/L [facility] CO2 [Moles/Vol] 23 mmol/L 22 - 30 mmol/L [facility] Creatinine [Mass/Vol] 1.45 mg/dL High 0.52 - 1.04 mg/dL [facility] GFR/1.73 sq M.predicted MDRD (S/P/Bld) [Vol rate/Area] 35.9 mL/min/{1.73_m2} Low - PINF [facility] Glucose [Mass/Vol] 119 mg/dL High 70 - 100 mg/dL [facility] Potassium [Moles/Vol] 4.5 mmol/L 3.5 - 5.1 mmol/L [facility] Sodium [Moles/Vol] 145 mmol/L 135 - 145 mmol/L [facility] Urea nitrogen [Mass/Vol] 38 mg/dL High 7 - 17 mg/dL [facility] CBC panel Auto (Bld)Ordered By: Uzma Skinner on 12-17-2022 Erythrocyte distribution width (RBC) [Ratio] 15.8 % High 11.5 - 14.5 % [facility] Hematocrit (Bld) [Volume fraction] 29.4 % Low 35.0 - 47.0 % [facility] Hemoglobin (Bld) [Mass/Vol] 9.7 g/dL Low 11.7 - 16.0 g/dL [facility] Interpretation and review of laboratory results Abnormal [facility] MCH (RBC) [Entitic mass] 29.8 pg 26. 0 - 34.[address] [facility] MCHC (RBC) [Mass/Vol] 33.0 % 32.0 - 36.0 % [facility] MCV (RBC) [Entitic vol] 90.2 fL 80.0 - 98.[address] [facility] Platelet mean volume (Bld) [Entitic vol] 9.9 fL 7.4 - 12.[address] [facility] Platelets (Bld) [#/Vol] 56 10*3/uL Low 140 - 440 10*3/uL [facility] RBC (Bld) [#/Vol] 3.26 10*6/uL Low 3.8 - 5.20 10*6/uL [facility] WBC (Bld) [#/Vol] 16.4 10*3/uL High 3.6 - 10.7 10*3/uL [facility] [place] MODIFIED BARIUM WITH VIDE O AND SPEECHon 12-17-2022 [place] MODIFIED BARIUM WITH VIDEO AND SPEECH Patient Name: DAYANA QUIÑONES : 1940 Exam Date/Time: 12/17/2022 11:06 Procedure: FL MODIFIED BARIUM WITH VIDEO AND SPEECH Ordering Provider: REBOLLAR ANDREW Reason For Exam: dysphagia MODIFIED BARIUM SWALLOW (COOKIE SWALLOW) History: Dysphagia. FLUOROSCOPY DOSE: Ka,r=31.93 mGy Technique: The exam was performed under fluoroscopy with video recording. Barium mixtures of various consistencies was used. Findings: Preparatory Phase: There is decreased bolus formation. Oral Phase: There are oral residuals with decreased A/P transit and spillage to the valleculae, piriforms and laryngeal vestibule. Pharyngeal Phase: There is coating of the pharyngeal ulloa with vallecular and piriform residuals. A weak pharyngeal wall with a weak tongue base and reduced epiglottic deflection is seen. There is coating of the back of the epiglottis with vocal cord penetration and airway aspiration. IMPRESSION: Vocal cord penetration with airway aspiration. Other findings as described above. Please refer to the speech pathologist 's report for additional details and recommendations. Report Dictated on Electronically Signed By: Emile Roberts MD Electronically Signed Date/Time: 12/17/2022 11:51 AM EDT Normal [facility] Laboratory - Chemistry and C hemistry - challengeon 12-17-2022 Magnesium [Mass/Vol] 2.6 mg/dL High 1.6 - 2 .3 mg/dL [facility] Laboratory - Coagulationon 0 12-17-2022 aPTT Coag (PPP) [Time] 37.5 s High 20.0 - 30.[address] [facility] INR Coag (PPP) [Relative time] 1.4 {INR} High 0.9 - 1.1 [facility] PT Coag (Bld) [Time] 14.8 s High 9.0 - [address] [facility] No Panel Informationon 12-17 Interpretation and review of laboratory results Abnormal [facility] Interpretation and review of laboratory results Abnormal [facility] Progress Noteon 12-17-2022 Progress Note <5cc noted since epicardial wire pull Chest tubes assessed: no air leak, subcutaneous air noted. Chest tubes removed without difficulty and dressing applied. Patient tolerated well. Patient and nurse educated on possible complications to observe for. Will continue to monitor. Normal [facility] Progress Note Patient in bed, VSS. Epicardial pacing wire pulled without difficulty per protocol. Patient and nurse educated on possible complications. Patient tolerated well. Will continue to monitor. BP cycling. Chest tubes still in place. Normal [facility] Progress Note -- Attestation signed by Russ Montero MD at 12/17/2022 12:17 PM I have personally seen the patient and [...] plan. Date of service: 12/17/22 Discussed with: []Residents[x]Patient/ Family [x]RN [x]Consultants []SW/TCC[]Other [x]JACEY Personally Reviewed: [x]Epic notes[x]Radiology studies [x]Labs []EKG []Other Assessment: -mvCAD s/p [...] other team members, patient's family and physicians. Cardiothoracic Surgery/[facility] Progress Note PATIENT NAME: Dayana Quiñones DATE: 12/17/22 HPI: 82-year-old female seen in outpatient setting for surgical evaluation due to progressive shortness of breath with exertion. Patient with significant cardiac history: CAD (ME-October 2018-NEGRO to LAD and LCx; November 2018-NEGRO to RCA), paroxysmal atrial fibrillation, HFrEF-30%, 2+ MR, Surgery was discussed and patient consented to intervention. Surgery/Procedure: 12/14/22: CABGx2 (PEDRAZA LAD, SVG to OM1) MVRepair (28 ring) LAAL with atriclip with Dr. Lai on 12/14/22 Interval History: 12/17/22, POD# 3: Weaned off all vasoactives. [place] removed; VSS. SCr downtrending. Up to chair [...] Heart Rate: 60 Resp: 15 Temp: 36 ?C (96.8 ?F), Temp Source: Temporal BMI (Calculated): 30.7 Pacer [...] TRINI on CKD GERD S/p PPM 08/02/2018 (EXENDIS) Hx Stroke Paroxsymal Afib/mobitz type II AV block Anxiety Post operative Pulm Management: normal post operative course Acute blood loss anemia/consumptive thrombocytopenia Plan: Patient Status: Telemetry Medications as ordered ASA statin - hold due o NPO Continue lasix BID - 20mg IV Insulin per Endo Remove colón later today Remove CTs? Pacing wires -->will discuss with Dr. Lai PT/OT: will need evaled Speech: NPO and Ice chips (more content not included)... Normal [facility] RF videography Hypopharynx a nd Esophagus Views for swallowing function W speech and W barium contrast Camila 12-17-2022 [facility] Radiology Study observation (narrative) [facility] XR CHEST 1 VIEWon 12-17-2022 XR CHEST 1 VIEW Patient Name: DAYANA JULIAN : 1940 Exam Date/Time: 12/17/2022 07:46 Procedure: XR CHEST 1 VIEW Ordering Provider: REBOLLAR ANDREW Reason For Exam: Shortness of breath CHEST - PORTABLE: CLINICAL INDICATION: Respiratory distress for follow up TECHNIQUE: Portable AP COMPARISON: One day ago FINDINGS: Life support devices: Right jugular venous catheter noted with a left permanent pacemaker left atrial appendage clamp device with left chest tube Heart/Mediastinum: Unchanged Lungs/Pleura: Reticular opacities again noted throughout the lungs. The costophrenic angles are obscured. IMPRESSION: Probable interstitial edema and pleural fluid. No new abnormality. Report Dictated on Electronically Signed By: Emile Roberts MD Electronically Signed Date/Time: 12/17/2022 7:47 AM EDT Normal [facility] XR Chest Single viewon 12-17 [facility] Radiology Study observation (narrative) [facility] Basic metabolic 1998 panelon 12-16-2022 Anion gap [Moles/Vol] 12 mmol/L 3 - 13 mmol/L [facility] Calcium [Mass/Vol] 8.4 mg/dL 8.4 - 10. 4 mg/dL [facility] Chloride [Moles/Vol] 109 mmol/L High 98 - 10 7 mmol/L [facility] CO2 [Moles/Vol] 21 mmol/L Low 22 - 30 mmol/L [facility] Creatinine [Mass/Vol] 1.64 mg/dL High 0.52 - 1.04 mg/dL [facility] GFR/1.73 sq M.predicted MDRD (S/P/Bld) [Vol rate/Area] 30.9 mL/min/{1.73_m2} Low - PINF [facility] Glucose [Mass/Vol] 120 mg/dL High 70 - 100 mg/dL [facility] Potassium [Moles/Vol] 4.7 mmol/L 3.5 - 5.1 mmol/L [facility] Sodium [Moles/Vol] 141 mmol/L 135 - 145 mmol/L [facility] Urea nitrogen [Mass/Vol] 27 mg/dL High 7 - 17 mg/dL [facility] CBC panel Auto (Bld)Ordered By: Tim Willard on 12-16-2022 Erythrocyte distribution width (RBC) [Ratio] 16.1 % High 11.5 - 14.5 % [facility] Hematocrit (Bld) [Volume fraction] 28.7 % Low 35.0 - 47.0 % [facility] Hemoglobin (Bld) [Mass/Vol] 9.5 g/dL Low 11.7 - 16.0 g/dL [facility] Interpretation and review of laboratory results Abnormal [facility] MCH (RBC) [Entitic mass] 29.9 pg 26. 0 - 34.[address] [facility] MCHC (RBC) [Mass/Vol] 33.1 % 32.0 - 36.0 % [facility] MCV (RBC) [Entitic vol] 90.4 fL 80.0 - 98.[address] [facility] Platelet mean volume (Bld) [Entitic vol] 10.2 fL 7.4 - 12.[address] [facility] Platelets (Bld) [#/Vol] 47 10*3/uL Low 140 - 440 10*3/uL [facility] RBC (Bld) [#/Vol] 3.18 10*6/uL Low 3.8 - 5.20 10*6/uL [facility] WBC (Bld) [#/Vol] 12.3 10*3/uL High 3.6 - 10.7 10*3/uL [facility] Calcium.ionized [Moles/Vol]O rdered By: Parker Hernandez on 12-16-2022 Calcium.ionized (Bld) [Moles/Vol] 4.30 mg/dL 4.30 - 5.20 mg/dL [facility] Interpretation and review of laboratory results Abnormal [facility] PH, IONIZED CALCIUM 7.30 Low 7.31 - 7.46 [facility] Laboratory - Chemistry and C hemistry - challengeon 12-16-2022 Glucose [Mass/Vol] 123 mg/dL High 70 - 100 mg/dL [facility] Magnesium [Mass/Vol] 2.6 mg/dL High 1.6 - 2 .3 mg/dL [facility] Laboratory - Coagulationon 0 12-16-2022 aPTT Coag (PPP) [Time] 44.1 s High 20.0 - 30.[address] [facility] INR Coag (PPP) [Relative time] 1.3 {INR} High 0.9 - 1.1 [facility] PT Coag (Bld) [Time] 13.9 s High 9.0 - [address] [facility] No Panel Informationon 12-16 Interpretation and review of laboratory results Abnormal [facility] Interpretation and review of laboratory results Abnormal [facility] Interpretation and review of laboratory results Abnormal [facility] Progress Noteon 12-16-2022 Progress Note .Nutrition rescreen completed. Patient referred to the Dietitian. CABG, dysphagia.SHARON Reyes Normal [facility] Progress Note Speech-Language Pathology SPEECH LANGUAGE PATHOLOGY [facility] Dysphagia Treatment Note Patient Name: Dayana Quiñones [...] if a safe diet level. Continue acute TANDEM MILL OPERATOR therapy per initial plan of care and [...] Start: 12/16/22 Expected End: 12/30/22 Therapy Time TANDEM MILL OPERATOR Individual Minutes Time In: 0950 Time Out: 1002 Minutes: 12 OMARI Curran [facility] Progress Note -- Attestation signed by Ian Brand MD at 12/16/2022 2:43 PM I have personally performed a face to face diagnostic evaluation on this patient. In addition, I have reviewed the resident's/BEAD BUILDER/SENIOR MOBILE DEVELOPER's care plan and agree with those findings I have performed a substantive portion of the the medical decision making. My findings are as follows: Patient is n.p.o. Blood glucose readings are reasonable Vitals: BP 122/63 (BP Location: Left arm, Patient Position: Lying) Pulse 60 Temp 36.7 ?C (98 ?F) (Temporal) Resp 19 Ht 5' 3 (1.6 m) Wt 173 lb 4.5 oz (78.6 kg) SpO2 99% PF 55 L/min BMI 30.70 kg/m? Respiratory: No respiratory distress Cardiovascular System: No [...] imaging are reviewed as detailed in the resident's/BEAD BUILDER/SENIOR MOBILE DEVELOPER's note Department of Internal Medicine Division of Endocrinology, Diabetes, & Metabolism Endocrinology Note Patient Name: Dayana Quiñones : 1940 AGE: 82 y.o. Room/Bed: T1-114/T1-114 A Admission Date: 12/14/2022 Visit Date: 12/16/2022 Reason for Endocrine Consult: post op heart Provider/Team Requesting Consult: cts PCP: Amalia Avery MD Outpt Mail Inserter: No ASSESSMENT: Stress hyperglycemia Cad s/p cabgx2 [...] Oral, Nightly bacitracin-polymyxin b (Polysporin) ointment Apply (more content not included)... Normal [facility] Progress Note -- Attestation signed by Russ Montero MD at 12/16/2022 3:40 PM I have personally seen the patient and [...] plan. 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 -Creatinine holding, avoid nephrotoxic medications -NPO with meds crushed in puree, TANDEM MILL OPERATOR to follow -Continue aggressive pulmonary hygiene measures [...] other team members, patient's family and physicians. Cardiothoracic Surgery/[facility] Progress Note PATIENT NAME: Dayana Quiñones DATE: 12/16/22 HPI: 82-year-old female seen in outpatient setting for surgical evaluation due to progressive shortness of breath with exertion. Patient with significant cardiac history: CAD (ME-October 2018-NEGRO to LAD and LCx; November 2018-NEGRO to RCA), paroxysmal atrial fibrillation, HFrEF-30%, 2+ MR, Surgery was discussed and patient consented to intervention. Surgery/Procedure: 12/14/22: CABGx2 (PEDRAZA LAD, SVG to OM1) MVRepair (28 ring) LAAL with atriclip with Dr. Lai on 12/14/22 Interval History: 12/16/22, POD# 2: [...] Heart Rate: 60 Resp: 19 Temp: 36.3 ?C (97.4 ?F), Temp Source: Temporal BMI (Calculated): 30.7 Pacer [...] TRINI on CKD GERD S/p PPM 08/02/2018 ([facility]) Hx Stroke Paroxsymal Afib/mobitz type II AV block Anxiety Post operative Pulm Management: normal post operative course Acute blood loss anemia/consumptive thrombocytopenia Plan: Patient Status: ICU Medications as ordered ASA statin Wean levo as able for SBP less than 130 Gentle diuresis: lasix BID 20mg IV Insulin per Will Maintain colón, CT to suction, and mary carmen (more content not included)... Normal [facility] XR CHEST 1 VIEWon 12-16-2022 XR CHEST 1 VIEW [facility] 1940 [id number] Exam Date/Time: 12/16/2022 05:22 Procedure: XR CHEST 1 VIEW Ordering Provider: REBOLLAR ANDREW Reason For Exam: Shortness of breath CHEST - PORTABLE: CLINICAL INDICATION: Respiratory distress for follow up TECHNIQUE: Portable AP COMPARISON: One day ago FINDINGS: Life support devices: Right central venous catheter with a left permanent pacemaker and left atrial appendage clamp device with a left chest tube Heart/Mediastinum: Unchanged Lungs/Pleura: Reticular opacities likely reflect interstitial edema. The costophrenic angles are obscured. IMPRESSION: Probable interstitial edema and atelectasis or pleural fluid at the bases without change. Report Dictated on Electronically Signed By: Emile Roberts MD Electronically Signed Date/Time: 12/16/2022 9:08 AM EDT Normal [facility] XR Chest Single viewon 12-16 [facility] EM[facility]GENCY [facility]PART[facility] RADIOLOGY [facility] RADIOLOGY [facility] Radiology Study observation (narrative) [facility] XR Chest Single viewOrdered By: Emile Roberts on 12-16-2022 [facility] Work Phone: Basic metabolic 1998 panelon 12-15-2022 Anion gap [Moles/Vol] 15 mmol/L High 3 - 13 mmol/L [facility] Calcium [Mass/Vol] 8.4 mg/dL 8.4 - 10. 4 mg/dL [facility] Chloride [Moles/Vol] 109 mmol/L High 98 - 10 7 mmol/L [facility] CO2 [Moles/Vol] 18 mmol/L Low 22 - 30 mmol/L [facility] Creatinine [Mass/Vol] 1.65 mg/dL High 0.52 - 1.04 mg/dL [facility] GFR/1.73 sq M.predicted MDRD (S/P/Bld) [Vol rate/Area] 30.7 mL/min/{1.73_m2} Low - PINF [facility] Glucose [Mass/Vol] 141 mg/dL High 70 - 100 mg/dL [facility] Interpretation and review of laboratory results Abnormal [facility] Potassium [Moles/Vol] 4.9 mmol/L 3.5 - 5.1 mmol/L [facility] Sodium [Moles/Vol] 143 mmol/L 135 - 145 mmol/L [facility] Urea nitrogen [Mass/Vol] 23 mg/dL High 7 - 17 mg/dL [facility] Anion gap [Moles/Vol] 14 mmol/L High 3 - 13 mmol/L [facility] Calcium [Mass/Vol] 7.7 mg/dL Low 8.4 - 10. 4 mg/dL [facility] Chloride [Moles/Vol] 112 mmol/L High 98 - 10 7 mmol/L [facility] CO2 [Moles/Vol] 17 mmol/L Low 22 - 30 mmol/L [facility] Creatinine [Mass/Vol] 1.62 mg/dL High 0.52 - 1.04 mg/dL [facility] GFR/1.73 sq M.predicted MDRD (S/P/Bld) [Vol rate/Area] 31.4 mL/min/{1.73_m2} Low - PINF [facility] Glucose [Mass/Vol] 122 mg/dL High 70 - 100 mg/dL [facility] Potassium [Moles/Vol] 4.5 mmol/L 3.5 - 5.1 mmol/L [facility] Sodium [Moles/Vol] 142 mmol/L 135 - 145 mmol/L [facility] Urea nitrogen [Mass/Vol] 23 mg/dL High 7 - 17 mg/dL [facility] 12-15-2022 [facility] Managment Initi al Assessment Date: 12/15/2022 Patient Name: Dayana Quiñones : 1940 Patient Information Source of Information: Patient, 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 Name/Contact Information: ciarra Gloria at bedside Cognition/Language: WFL - Within Functional Limits Permission given to speak with patient packaging sales representative/caregiv er as indicated: Yes Confirmation of Payer with patient/family: Yes Payer Name: Taetflorencia : No Confirmation of Primary Care Physician: [...] of Daily Living Ambulation: Independent Bathing/Dressing: Independent Elimination/Continence /Toileting: Independent Feeding: Independent Who Assists with Activities of Daily Living: Instrumental Activities of Daily Living Prescription Coverage: Yes Pharmacy Used: [facility] Medication Management: Independent Transportation/Shoppin g: Independent Transportation Mode: Car Needs Assistance with Transportation at Discharge: No Meal Preparation: Independent Laundry/Cleaning: Independent Finances/Bill Paying: Independent Communication: Independent Types of Care Services/Equipment Utilized Care Services: Dialysis Type: Durable Medical Equipment: Patient's Goal/Discharge Plan Patient expects to be discharged to: ciarra Gloria's house in [place] Discharge Planning Actions: Continue to follow Patient's [...] therapy-daughter aware of both options and agreeable. MURGUIA following. Jessica Jaramillo RN Normal [facility] CBC panel Auto (Bld)Ordered By: Sarah Jones on 12-15-2022 Erythrocyte distribution width (RBC) [Ratio] 15.3 % High 11.5 - 14.5 % [facility] Hematocrit (Bld) [Volume fraction] 25.4 % Low 35.0 - 47.0 % [facility] Hemoglobin (Bld) [Mass/Vol] 8.1 g/dL Low 11.7 - 16.0 g/dL [facility] Interpretation and review of laboratory results Abnormal [facility] MCH (RBC) [Entitic mass] 29.2 pg 26. 0 - 34.[address] [facility] MCHC (RBC) [Mass/Vol] 31.8 % Low 32.0 - 36.0 % [facility] MCV (RBC) [Entitic vol] 91.6 fL 80.0 - 98.[address] [facility] Platelet mean volume (Bld) [Entitic vol] 9.7 fL 7.4 - 12.[address] [facility] Platelets (Bld) [#/Vol] 48 10*3/uL Low 140 - 440 10*3/uL [facility] RBC (Bld) [#/Vol] 2.77 10*6/uL Low 3.8 - 5.20 10*6/uL [facility] WBC (Bld) [#/Vol] 11.5 10*3/uL High 3.6 - 10.7 10*3/uL [facility] CBC panel Auto (Bld)Ordered By: Washington Montero on 12-15-2022 Erythrocyte distribution width (RBC) [Ratio] 15.3 % High 11.5 - 14.5 % [facility] Hematocrit (Bld) [Volume fraction] 30.1 % Low 35.0 - 47.0 % [facility] Hemoglobin (Bld) [Mass/Vol] 9.8 g/dL Low 11.7 - 16.0 g/dL [facility] Interpretation and review of laboratory results Abnormal [facility] th MCH (RBC) [Entitic mass] 29.4 pg 26. 0 - 34.[address] [facility] MCHC (RBC) [Mass/Vol] 32.5 % 32.0 - 36.0 % [facility] MCV (RBC) [Entitic vol] 90.7 fL 80.0 - 98.[address] [facility] Platelet mean volume (Bld) [Entitic vol] 9.8 fL 7.4 - 12.[address] [facility] Platelets (Bld) [#/Vol] 62 10*3/uL Low 140 - 440 10*3/uL [facility] RBC (Bld) [#/Vol] 3.32 10*6/uL Low 3.8 - 5.20 10*6/uL [facility] WBC (Bld) [#/Vol] 17.0 10*3/uL High 3.6 - 10.7 10*3/uL [facility] Calcium.ionized [Moles/Vol]o n 12-15-2022 Calcium.ionized (Bld) [Moles/Vol] 4.40 mg/dL 4.30 - 5.20 mg/dL [facility] Interpretation and review of laboratory results Normal [facility] PH, IONIZED CALCIUM 7.37 7.31 - 7.46 [facility] Calcium.ionized [Moles/Vol]O rdered By: Tima Lynn on 12-15-2022 Calcium.ionized (Bld) [Moles/Vol] 4.00 mg/dL Low 4.30 - 5.20 mg/dL [facility] Interpretation and review of laboratory results Abnormal [facility] PH, IONIZED CALCIUM 7.38 7.31 - 7.46 [facility] ECG 12-LEADon 12-15-2022 ECG 12-LEAD IMPRESSION: Atrial-ventricular dual-paced rhythm Electronically Signed On 12-15-2022 9:47:56 EDT by Matt Booker [facility] ECG 12-LEAD IMPRESSION: Atrial-ventricular dual-paced rhythm Electronically Signed On 12-15-2022 8:49:55 EDT by Matt Booker [facility] Hemoglobin (Bld) [Mass/Vol]O rdered By: Taylor Wing on 12-15-2022 Hematocrit (Bld) [Volume fraction] 28.8 % Low 35.0 - 47.0 % [facility] Interpretation and review of laboratory results Abnormal [facility] Laboratory - Chemistry and C hemistry - challengeon 12-15-2022 Glucose [Mass/Vol] 137 mg/dL High 70 - 100 mg/dL [facility] Glucose [Mass/Vol] 146 mg/dL High 70 - 100 mg/dL [facility] Glucose [Mass/Vol] 141 mg/dL High 70 - 100 mg/dL [facility] Glucose [Mass/Vol] 140 mg/dL High 70 - 100 mg/dL [facility] Glucose [Mass/Vol] 143 mg/dL High 70 - 100 mg/dL [facility] Glucose [Mass/Vol] 129 mg/dL High 70 - 100 mg/dL [facility] Glucose [Mass/Vol] 119 mg/dL High 70 - 100 mg/dL [facility] Glucose [Mass/Vol] 137 mg/dL High 70 - 100 mg/dL [facility] Glucose [Mass/Vol] 120 mg/dL High 70 - 100 mg/dL [facility] Glucose [Mass/Vol] 118 mg/dL High 70 - 100 mg/dL [facility] Magnesium [Mass/Vol] 2.5 mg/dL High 1.6 - 2 .3 mg/dL [facility] Glucose [Mass/Vol] 127 mg/dL High 70 - 100 mg/dL [facility] Base excess Calc (Bld) [Moles/Vol] -5.4000 mmol/L Low -3.0 - 3.0 mmol/L [facility] CO2 (Bld) [Partial pressure] 36.8 mm[Hg] - PINF [facility] CO2 [Moles/Vol] 20.9 mmol/L Low 23.0 - 27.0 mmol/L [facility] HCO3 (Bld) [Moles/Vol] 19.7 mmol/L Low 21.0 - 25.0 mmol/L [facility] Oxygen (Bld) [Partial pressure] 195.4 mm[Hg] High [facility] pH (Bld) 7.347 [pH] Low 7.350 - 7.450 [facility] Glucose [Mass/Vol] 128 mg/dL High 70 - 100 mg/dL [facility] Laboratory - Coagulationon 0 - aPTT Coag (PPP) [Time] 59.6 s High 20.0 - 30.[address] [facility] INR Coag (PPP) [Relative time] 1.2 {INR} High 0.9 - 1.1 [facility] PT Coag (Bld) [Time] 12.9 s High 9.0 - [address] [facility] Laboratory - Hematology and Cell countsOrdered By: Taylor Wing on 12-15-2022 Hemoglobin (Bld) [Mass/Vol] 9.4 g/dL Low 11.7 - 16.0 g/dL [facility] Laboratory - Hematology and Cell countson 12-15-2022 Hemoglobin (Bld) [Mass/Vol] 10.1 g/dL Screen Only [facility] No Panel Informationon 12-15 Interpretation and review of laboratory results Abnormal [facility] Blood Expiration Date [id number] S [facility] Crossmatch interpretation COMP [facility] Dispense Status Transfused [facility] Product Blood Type 5100 [facility] PRODUCT CODE [id number] [facility] ABO O [facility] Number [id number] [facility] alth Unit RH Positive [facility] Unit Volume 300 mL [facility] Interpretation and review of laboratory results Abnormal [facility] CV [facility] Health Interpretation and review of laboratory results Abnormal [facility] Health P [place] -84 degrees [facility] [place] Interval [address] [facility] QRS [place] -[address] [facility] QRSD Interval 149 ms [facility] QT Interval [address] [facility] QTC Interval [address] [facility] T Wave [place] [address] [facility] CV [facility] Health Interpretation and review of laboratory results Abnormal [facility] Interpretation and review of laboratory results Abnormal [facility] Interpretation and review of laboratory results Abnormal [facility] Interpretation and review of laboratory results Abnormal [facility] Interpretation and review of laboratory results Abnormal [facility] Interpretation and review of laboratory results Abnormal [facility] Interpretation and review of laboratory results Abnormal [facility] Interpretation and review of laboratory results Abnormal [facility] Interpretation and review of laboratory results Abnormal [facility] Interpretation and review of laboratory results Abnormal [facility] Interpretation and review of laboratory results Abnormal [facility] Source Of Oxygen 50% Oxygen [facility] Health Interpretation and review of laboratory results Abnormal [facility] [employer] No Panel InformationOrdered By: Matt Booker on 12-15-2022 P [place] -88 degrees [email or web address] Work Phone: [place] Interval 183 ms [email or web address] Work Phone: QRS [place] -58 degrees [email or web address] Work Phone: QRSD Interval 167 ms [employer] Work Phone: QT Interval 553 ms [email or web address] Work Phone: QTC Interval 557 ms [email or web address] Work Phone: T Wave [place] 102 degrees [email or web address] Work Phone: [email or web address] Work Phone: Progress Noteon 12-15-2022 Progress Note Speech-Language Pathology SPEECH LANGUAGE PATHOLOGY [facility] Bedside Swallow Evaluation Patient Name: Dayana Quiñones [...] PRN Pt would benefit from skilled acute TANDEM MILL OPERATOR services to address safety for PO. Frequency: [...] be evaluated. Dysphagia History: No history of TANDEM MILL OPERATOR services in EMR with retrospective chart review [...] Atherosclerosis of coronary artery bypass graft of morongo heart without angina pectoris Chronic kidney disease GERD (gastroesophageal reflux disease) Hypertension Ischemic cardiomyopathy Mobitz type II atrioventricular block STEMI (ST elevation myocardial infarction) ([facility]) 11/16/2018 Stroke ([facility]) Vertigo Past Surgical History: Past Surgical History: Procedure Laterality Date BACK SURGERY fusion CARDIAC PACEMAKER PLACEMENT 08/02/2018 CORONARY STENT PLACEMENT 12/19/2018 total of 4 on different occasions Admission Diagnosis: Patient Active Problem List Diagnosis Date Noted CAD in morongo artery 12/14/2022 History of Present Illness: Assessment [...] Swallowing Patient will participate in repeat clinical d (more content not included)... Normal [facility] Progress Note -- Attestation signed by Ian Brand MD at 12/15/2022 2:09 PM I have personally performed a face to face diagnostic evaluation on this patient. In addition, I have reviewed the resident's/BEAD BUILDER/SENIOR MOBILE DEVELOPER's care plan and agree with those findings I have performed a substantive portion of the the medical decision making. My findings are as follows: Insulin drip rate 1.5 unit/hr Vitals: BP (!) 112/47 (BP Location: Left arm, Patient Position: Lying) Pulse 60 Temp 37 ?C (98.6 ?F) (Temporal) Resp 24 Ht 5' 3 (1.6 m) Wt 177 lb 4 oz (80.4 kg) SpO2 100% PF 55 L/min BMI 31.40 kg/m? Respiratory: No respiratory distress Cardiovascular System: No [...] imaging are reviewed as detailed in the resident's/BEAD BUILDER/SENIOR MOBILE DEVELOPER's note Department of Internal Medicine Division of Endocrinology, Diabetes, & Metabolism Endocrinology Note Patient Name: Dayana Quiñones : 1940 AGE: 82 y.o. [facility] Admission Date: 12/14/2022 Visit Date: 12/15/2022 Reason for Endocrine Consult: post op heart Provider/Team Requesting Consult: cts PCP: Amalia Avery MD Outpt Mail Inserter: No ASSESSMENT: Stress hyperglycemia Cad s/p cabgx2 [...] 14 14 (!) 29 23 Temp: 37 ?C (98.6 ?F) TempSrc: Temporal SpO2: 100% 100% 100% 98% [...] Apply externally, Ointement for eye furosemide (LASIX) 4 (more content not included)... Normal [facility] Progress Note PS 10/+6 trial start ed at [address] Montero. Normal [facility] Progress Note -- Attestation signed by Russ Montero MD at 12/15/2022 5:41 PM I have personally seen the patient and [...] plan. Date of service: 12/15/22 Discussed with: []Residents[x]Patient/ Family [x]RN [x]Consultants [x]SW/TCC[]Other [x]JACEY Personally Reviewed: [x]Epic notes[x]Radiology studies [x]Labs [x]EKG []Other Assessment: -mvCAD s/p [...] other team members, patient's family and physicians. Cardiothoracic Surgery/[facility] Progress Note PATIENT NAME: Dayana Quiñones DATE: 12/15/22 HPI: 82-year-old female seen in outpatient setting for surgical evaluation due to progressive shortness of breath with exertion. Patient with significant cardiac history: CAD (ME-October 2018-NEGRO to LAD and LCx; November 2018-NEGRO to RCA), paroxysmal atrial fibrillation, HFrEF-30%, 2+ MR, Surgery was discussed and patient consented to intervention. Surgery/Procedure: 12/14/22: CABGx2 (PEDRAZA LAD, SVG to OM1) MVRepair (28 ring) LAAL with atriclip with Dr. Lai on 12/14/22 Interval History: 12/15/22, POD# 1: [...] Heart Rate: 64 Resp: 20 Temp: 36.5 ?C (97.7 ?F), Temp Source: Temporal BMI (Calculated): 31.41 Vent [...] TRINI on CKD GERD S/p PPM 08/02/2018 ([employer]) Hx Stroke Paroxsymal Afib/mobitz type II AV block Anxiety Post operative Pulm Management: normal post operative course (more content not included)... Normal [email or web address] SHS US Heart Transesophagealon 0 12-15-2022 CV CPACS HEMO US Heart TransesophagealOrde red By: Rom Snider on 12-15-2022 [email or web address] Work Phone: Vital signsOrdered By: Baudilio Booker on 12-15-2022 Heart rate 61 /min bpm [employer] Phone: Vital signson 12-15-2022 Heart rate 60 /min bpm [email or web address] XR CHEST 1 VIEWon 12-15-2022 XR CHEST 1 VIEW [facility] 1940 [id number] Exam Date/Time: 12/15/2022 05:36 Procedure: XR CHEST 1 VIEW Ordering Provider: REBOLLAR ANDREW Reason For Exam: Shortness of breath CHEST CLINICAL INDICATION: Shortness of breath TECHNIQUE: AP portable chest COMPARISON: Chest radiograph from 12/14/2022 FINDINGS: SUPPORT DEVICES: An enteric tube extends beneath the diaphragm. The distal tip is located caudal to the field of view. Endotracheal tube terminates 3.3 cm above the ana. Right internal jugular catheter tip projects over the cavoatrial junction. Stable positioning of mediastinal drain and left basilar chest tube. Dual lead cardiac pacemaker HEART AND MEDIASTINUM: Calcification of the thoracic aorta. Left atrial appendage clip. Stable mild prominence of the cardiac silhouette. LUNGS AND PLEURA: Reticular opacities throughout both lungs, similar to prior, compatible with interstitial scarring. No new confluent consolidation. Small bilateral pleural effusions. No pneumothorax is identified. OSSEOUS STRUCTURES: Degenerative change of the spine. Median sternotomy wires. Bilateral glenohumeral joint DJD. IMPRESSION: Essentially stable examination. Report Dictated on Electronically Signed By: Bridget Melo MD Electronically Signed Date/Time: 12/15/2022 8:46 AM EDT Normal [facility] XR Chest Single viewon 12-15 [facility] RADIOLOGY [facility] Radiology Study observation (narrative) [facility] XR Chest Single viewOrdered By: Bridget Melo on 12-15-2022 [facility] Work Phone: [phone] 12-14-2022 [id number] Operating Theatre Technician following case for Discharge Needs. Normal [facility] Basic metabolic 1998 panelon 12-14-2022 Anion gap [Moles/Vol] 12 mmol/L 3 - 13 mmol/L [facility] Calcium [Mass/Vol] 8.8 mg/dL 8.4 - 10. 4 mg/dL [facility] Chloride [Moles/Vol] 109 mmol/L High 98 - 10 7 mmol/L [facility] CO2 [Moles/Vol] 19 mmol/L Low 22 - 30 mmol/L [facility] Creatinine [Mass/Vol] 1.18 mg/dL High 0.52 - 1.04 mg/dL [facility] GFR/1.73 sq M.predicted MDRD (S/P/Bld) [Vol rate/Area] 45.9 mL/min/{1.73_m2} Low - PINF [facility] Glucose [Mass/Vol] 116 mg/dL High 70 - 100 mg/dL [facility] Potassium [Moles/Vol] 4.3 mmol/L 3.5 - 5.1 mmol/L [facility] Sodium [Moles/Vol] 140 mmol/L 135 - 145 mmol/L [facility] Urea nitrogen [Mass/Vol] 20 mg/dL High 7 - 17 mg/dL [facility] CBC panel Auto (Bld)Ordered By: Becca Goode on 12-14-2022 Erythrocyte distribution width (RBC) [Ratio] 14.4 % 11.5 - 14.5 % [facility] Hematocrit (Bld) [Volume fraction] 19.6 % Low 35.0 - 47.0 % [facility] Hemoglobin (Bld) [Mass/Vol] 6.4 g/dL Critically low 11.7 - 16.0 g/dL [facility] Interpretation and review of laboratory results Abnormal [facility] MCH (RBC) [Entitic mass] 30.3 pg 26. 0 - 34.[address] [facility] MCHC (RBC) [Mass/Vol] 32.8 % 32.0 - 36.0 % [facility] MCV (RBC) [Entitic vol] 92.4 fL 80.0 - 98.[address] [facility] Platelet mean volume (Bld) [Entitic vol] 9.0 fL 7.4 - 12.[address] [facility] Platelets (Bld) [#/Vol] 63 10*3/uL Low 140 - 440 10*3/uL [facility] RBC (Bld) [#/Vol] 2.12 10*6/uL Low 3.8 - 5.20 10*6/uL [facility] WBC (Bld) [#/Vol] 13.7 10*3/uL High 3.6 - 10.7 10*3/uL [facility] Calcium.ionized [Moles/Vol]O rdered By: Mckinley Hernandez on 12-14-2022 Calcium.ionized (Bld) [Moles/Vol] 4.00 mg/dL Low 4.30 - 5.20 mg/dL [facility] Interpretation and review of laboratory results Abnormal [facility] PH, IONIZED CALCIUM 7.52 High 7.31 - 7.46 [facility] Consulton 12-14-2022 Consult -- Attestation signed by Ian Brand MD at 12/14/2022 3:55 PM I have personally performed a face to face diagnostic evaluation on this patient. In addition, I have reviewed the resident's/BEAD BUILDER/SENIOR MOBILE DEVELOPER's care plan and agree with those findings I have performed a substantive portion of the the medical decision making. My findings are as follows: S/p CABG No hx of diabetes Not on diabetes meds Vitals: BP (!) 118/46 Pulse 60 Temp 36.2 ?C (97.2 ?F) Resp 16 Ht 5' 3 (1.6 m) Wt 169 lb (76.7 kg) SpO2 100% BMI 29.94 kg/m? Constitutional: intubated Respiratory: No respiratory distress Cardiovascular [...] imaging are reviewed as detailed in the resident's/BEAD BUILDER/SENIOR MOBILE DEVELOPER's note Department of Internal Medicine Division of Endocrinology, Diabetes, & Metabolism Endocrinology Note Patient Name: Dayana Quiñones : 1940 AGE: 82 y.o. Room/Bed: T1-114/T1-114 A Admission Date: 12/14/2022 Visit Date: 12/14/2022 Reason for Endocrine Consult: post op heart Provider/Team Requesting Consult: cts PCP: Amalia Avery MD Outpt Mail Inserter: No ASSESSMENT: Stress hyperglycemia Cad s/p cabgx2 [...] Pulse: 70 66 Resp: 16 Temp: 36.4 ?C (97.6 ?F) TempSrc: Temporal Bladder SpO2: 95% 100% Weight: [...] 25 g, IntraVENous, Once ceFAZolin, 2,000 mg, (more content not included)... Normal [facility] Consult -- Attestation signed by Russ Montero MD at 12/14/2022 8:08 PM I have personally seen the patient and [...] plan. Date of service: 12/14/22 Discussed with: []Residents[x]Patient/ Family [x]RN [x]Consultants []SW/TCC[]Other [x]JACEY Personally Reviewed: [x]Epic notes[x]Radiology studies [x]Labs [x]EKG []Other Assessment: -mvCAD s/p [...] other team members, patient's family and physicians. [facility]: Critical Care Consultation Note Date: 12/14/22 PATIENT NAME: Dayana Quiñones : 1940 (82 y.o.) Reason for Consult: Critical Care & Vent Management Osteopathic Physician: Dr. Brumfield ([place]) PCP: Dr. Amalia Avery HPI: 82-year-old female seen in outpatient setting for surgical evaluation due to progressive shortness of breath with exertion. Patient with significant cardiac history: CAD (ME-October 2018-NEGRO to LAD and LCx; November 2018-NEGRO to RCA), paroxysmal atrial fibrillation, HFrEF-30%, 2+ MR, Surgery was discussed and patient consented to intervention. Surgery: 12/14/22: CABGx2 (PEDRAZA LAD, SVG to OM1) MVRepair (28 ring) LAAL with atriclip with Dr. Lai on 12/14/22 Interval History: 12/14/22: POD #0: [...] Atherosclerosis of coronary artery bypass graft of morongo heart without angina pectoris, Chronic kidney disease, GERD (gastroesophageal reflux disease), Hypertension, Ischemic cardiomyopathy, Mobitz type II atrioventricular block, STEMI (ST elevation myocardial infarction) ([facility]) (11/16/2018), Stroke ([facility]), and Vertigo. Past Surgical History: has a [...] affected area daily 12/04/22 12/04/23 Yes Jim Florian, PROFESSOR OF CHEMICAL ENGINEERING - BRANCH OFFICE MANAGER carvedilol (Coreg) 12.5 MG tablet Take 1 [...] Take 1 tablet by mouth in the (more content not included)... Normal [facility]S Fibrinogen Coag (PPP) [Mass/ Vol]Ordered By: Ingrid Gan on 12-14-2022 Interpretation and review of laboratory results Abnormal [facility] Hemoglobin (Bld) [Mass/Vol]O rdered By: Crystal Solis on 12-14-2022 Hematocrit (Bld) [Volume fraction] 29.6 % Low 35.0 - 47.0 % [facility] Interpretation and review of laboratory results Abnormal [facility] Hemoglobin (Bld) [Mass/Vol]o n 12-14-2022 Hematocrit (Bld) [Volume fraction] 22.9 % Low 35.0 - 47.0 % [facility] Interpretation and review of laboratory results Abnormal [facility] Laboratory - Chemistry and C hemistry - challengeon 12-14-2022 Glucose [Mass/Vol] 118 mg/dL High 70 - 100 mg/dL [facility] Glucose [Mass/Vol] 133 mg/dL High 70 - 100 mg/dL [facility] Glucose [Mass/Vol] 143 mg/dL High 70 - 100 mg/dL [facility] Glucose [Mass/Vol] 124 mg/dL High 70 - 100 mg/dL [facility] Glucose [Mass/Vol] 140 mg/dL High 70 - 100 mg/dL [facility] Glucose [Mass/Vol] 134 mg/dL High 70 - 100 mg/dL [facility] Glucose [Mass/Vol] 149 mg/dL High 70 - 100 mg/dL [facility] Glucose [Mass/Vol] 143 mg/dL High 70 - 100 mg/dL [facility] Glucose [Mass/Vol] 146 mg/dL High 70 - 100 mg/dL [facility] Glucose [Mass/Vol] 124 mg/dL High 70 - 100 mg/dL [facility] Base excess Calc (BldV) [Moles/Vol] -5.9000 mmol/L Low -3.0 - 3.0 mmol/L [facility] CO2 (BldV) [Partial pressure] 49.0 mm[Hg] [facility] CO2 [Moles/Vol] 22.5 mmol/L Low 24.0 - 28.0 mmol/L [facility] HCO3 (Bld) [Moles/Vol] 21.0 mmol/L Low 23.0 - 27.0 mmol/L [facility] Oxygen (BldV) [Partial pressure] 48.7 mm[Hg] [facility] pH (BldV) 7.250 [pH] Low 7.330 - 7.430 [facility] Glucose [Mass/Vol] 89 mg/dL 70 - 100 mg/dL [facility] Magnesium [Mass/Vol] 4.0 mg/dL High 1.6 - 2 .3 mg/dL [facility] Base excess Calc (Bld) [Moles/Vol] -4.7000 mmol/L Low -3.0 - 3.0 mmol/L [facility] CO2 (Bld) [Partial pressure] 32.0 mm[Hg] Low - PINF [facility] CO2 [Moles/Vol] 20.5 mmol/L Low 23.0 - 27.0 mmol/L [facility] HCO3 (Bld) [Moles/Vol] 19.6 mmol/L Low 21.0 - 25.0 mmol/L [facility] Oxygen (Bld) [Partial pressure] 383.7 mm[Hg] High [facility] pH (Bld) 7.404 [pH] 7.350 - 7.450 [facility] Laboratory - Chemistry and C hemistry - challengeOrdered By: Nyla Back on 12-14-2022 Base excess Calc (Bld) [Moles/Vol] -6.7000 mmol/L Low -3.0 - 3.0 mmol/L [facility] CO2 (Bld) [Partial pressure] 39.2 mm[Hg] - PINF [facility] CO2 [Moles/Vol] 20.3 mmol/L Low 23.0 - 27.0 mmol/L [facility] HCO3 (Bld) [Moles/Vol] 19.1 mmol/L Low 21.0 - 25.0 mmol/L [facility] Oxygen (Bld) [Partial pressure] 195.7 mm[Hg] High [facility] pH (Bld) 7.305 [pH] Low 7.350 - 7.450 [facility] Laboratory - CoagulationOrde red By: Ingrid Gan on 12-14-2022 Fibrinogen Coag (PPP) [Mass/Vol] 158 mg/dL Low 200 - 400 mg/dL [facility] Laboratory - Coagulationon 0 12-14-2022 aPTT Coag (PPP) [Time] 37.9 s High 20.0 - 30.[address] [facility] INR Coag (PPP) [Relative time] 1.8 {INR} High 0.9 - 1.1 [facility] PT Coag (Bld) [Time] 18.1 s High 9.0 - [address] [facility] Laboratory - Hematology and Cell countsOrdered By: Crystal Solis on 12-14-2022 Hemoglobin (Bld) [Mass/Vol] 9.6 g/dL Low 11.7 - 16.0 g/dL [facility] Laboratory - Hematology and Cell countsOrdered By: Nyla Back on 12-14-2022 Hemoglobin (Bld) [Mass/Vol] 7.8 g/dL Screen Only [facility] Laboratory - Hematology and Cell countson 12-14-2022 Hemoglobin (Bld) [Mass/Vol] 7.6 g/dL Screen Only [facility] Hemoglobin (Bld) [Mass/Vol] 7.5 g/dL Low 11.7 - 16.0 g/dL [facility] Hemoglobin (Bld) [Mass/Vol] 6.6 g/dL Critically low Screen Only [facility] No Panel Informationon 12-14 Interpretation and review of laboratory results Abnormal [facility] Interpretation and review of laboratory results Abnormal [facility] Interpretation and review of laboratory results Abnormal [facility] Interpretation and review of laboratory results Abnormal [facility] Interpretation and review of laboratory results Abnormal [facility] Interpretation and review of laboratory results Abnormal [facility] Interpretation and review of laboratory results Abnormal [facility] Interpretation and review of laboratory results Abnormal [facility] Interpretation and review of laboratory results Abnormal [facility] Interpretation and review of laboratory results Abnormal [facility] Interpretation and review of laboratory results Abnormal [facility] Source Of Oxygen Vent [facility]th [facility] Interpretation and review of laboratory results Normal [facility] Interpretation and review of laboratory results Abnormal [facility] Interpretation and review of laboratory results Abnormal [facility] Source Of Oxygen Vent [facility] Interpretation and review of laboratory results Abnormal [facility] No Panel InformationOrdered By: Nyla Back on 12-14-2022 Interpretation and review of laboratory results Abnormal [facility] Source Of Oxygen Vent Brandon sultana [facility] Op Noteon 12-14-2022 Op Note Date of service: 12/14/2022 Preoperative diagnosis: Coronary [...] Left atrial appendage clip placement Surgeon: Danielle Lai MD Log Driver: Genesis Chacon SA Estimated blood loss: Unable [...] mild MR post mitral ring placement Danielle Lai MD Cardiothoracic Surgery Normal [facility] Phosphate [Moles/Vol]on 11-28 Interpretation and review of laboratory results Normal [facility] Phosphate [Mass/Vol] 2.6 mg/dL 2.5 - 4 .5 mg/dL [facility] Vital signson 12-14-2022 Oxygen saturation in Venous blood 73.5 % 60.0 - 80.0 % [facility] XR CHEST 1 VIEWon 12-14-2022 XR CHEST 1 VIEW [facility]: [facility]ULIAN [facility] 1940 [id number] Exam Date/Time: 12/14/2022 14:18 Procedure: XR CHEST 1 VIEW Ordering Provider: REBOLLAR ANDREW Reason For Exam: Post op open heart surgery CHEST - PORTABLE: CLINICAL INDICATION: Postoperative radiographs. . TECHNIQUE: Portable AP COMPARISON: CT chest 12/07/2022 IMPRESSION: FINDINGS/IMPRESSION: Limitations: Patient rotation/positioning Lines, tubes, and devices: Right IJ central venous catheter has its tip in the distal SVC. If this reflects a [place]-Jb catheter recommend advancement. Endotracheal tube has its tip about 3 cm above the ana. NG tube has its tip located in the stomach. Mediastinal drains and chest tubes in place. Multilead left-sided pacemaker device in place. Cardiomediastinal silhouette: Postsurgical changes including median sternotomy wires and atrial appendage clip Lungs/Pleura: Low lung volumes with left greater than right basilar atelectasis. Background of interstitial lung disease/fibrosis in a basilar/subpleural distribution as seen on CT. There may fairly small left greater than right pleural effusions. No discrete pneumothorax Osseous structures: Degenerative spondylosis in the visualized spine. Soft tissues: No soft tissue abnormality is detected. Report Dictated on Electronically Signed By: Kelvin Badillo MD Electronically Signed Date/Time: 12/14/2022 2:46 PM EDT Normal [facility] XR Chest Single viewon 12-14 [facility] RADIOLOGY SYSTEM [facility] RADIOLOGY SYSTEM [facility] Radiology Study observation (narrative) [facility] XR Chest Single viewOrdered By: Myles Badillo on 12-14-2022 [facility] wmbly Work Phone: 36on 12-11-2022 36 Called pt insurance company and verified authorization for surgery scheduled for 12/14/22. Pt has been approved for inpatient surgery from 12/14-12/18/22. Authorization number is [id number]. Pt notified. [facility] Office Visiton 12-11-2022 Follow-up visit [id number] Neto Quiñones 1940 F Date Provider Department Center 12/11/2022 [id number] SCHAEFER [facility] ACH CT None Family History Problem Relation Age of Onset Heart disease Father Family Status - Relation Status Age at Father Level of Service:26235 [place] OFFICE/OUTPATIENT ESTABLISHED LOW [facility] 20-29 MIN Reason for Visit and Comments: Follow-up [[id number]] [facility] Progress Noteon 12-11-2022 Progress Note Patient was seen tod ay via Telehealth by agreement and consent. I [...] stated that they are currently in the [facility]. If the patient is a minor, permission has been obtained by the parent or guardian for the patient to receive medical care at this visit. Discussed her CT scans No findings to preclude surgical intervention She understands Danielle Lai MD Cardiothoracic Surgery [facility] CT CHEST WO IV CONTRASTon CT CHEST WO IV CONTRAST Patient Name: DAYANA ÁLVAREZ : 1940 Exam Date/Time: 12/07/2022 12:13 Procedure: CT CHEST WO IV CONTRAST Ordering Provider: LAI NKEM Reason For Exam: Chest pain, nonspecific CT CHEST WITHOUT CONTRAST: CLINICAL INDICATION: Chest pain. TECHNIQUE: 1mm axial images without IV contrast. Coronal and sagittal reconstructions were provided. Dose reduction was employed with automated exposure control. COMPARISON: None. FINDINGS: Device: Left-sided subclavian pacemaker leads terminate in the RA and RV. Lungs: Peripheral bilateral interlobular thickening, more prevalent within the lower lobes. No honeycombing or groundglass infiltrates are evident. The lungs demonstrate no infiltrate or atelectasis. No parenchymal or pleural-based mass is seen. Moderate-sized hiatal hernia. Pleural fluid: None. Heart/Great vessels: Coronary artery atherosclerotic calcifications are identified. Cardiac chambers are top normal in size.. Mediastinum/Berna: Left hilar calcified lymph node is noted. Tiny mediastinal lymph nodes. No mass or lymphadenopathy is identified. Soft tissues chest wall: Unremarkable. Osseous structures: Mild thoracic degenerative spondylosis. And mild kyphosis of thoracic spine. Upper abdomen: No abnormality is visualized. Splenic calcified granulomata. IMPRESSION: Chronic interstitial fibrosis, UIP type. Moderate-sized hiatal hernia. Coronary artery atherosclerotic calcifications. Report Dictated on Workstation: [id number] Electronically Signed By: Parker Vasquez DO Electronically Signed Date/Time: 12/10/2022 12:14 AM EDT PRE OP- CABG SOB DENIES CP OR COUGH SX: PACEMAKER Normal [facility] ECG 12-LEADon 12-10-2022 ECG 12-LEAD IMPRESSION: A-V dual-paced complexes w/ some inhibition Electronically Signed On 12-10-2022 14:34:22 EDT by Dejah Medrano [facility] [id number] 12-08-2022 [id number] Received a voice neo l from Mac Pope, [facility], and Mac stated, received patients information regarding pacemaker and surgery date and time. [facility] [id number] Alysia in registration notified of pacemaker to add to OR schedule. Pacemaker copied and placed on chart. Pacemaker check requested from [facility] [id number] Patient was still in department when micheleons office messaged DEEPIKA ortiz and states to hold farxiga and entresto 24 hours prior to surgery. Patient and daughter made aware and verbalized understanding [facility] [id number] Late entry. Patients respirations were 18 when patient left department. When she first arrived her respirations were 22 from walking from registration and down the holliday in pres testing. [facility] 36on 12-08-2022 36 Pt is calling to ask if the surgery has been pre approved through her insurance. [facility] PREPROCINSon 12-08-2022 PREPROCINS Medication List Accurate as of December 08, 2022 1:41 PM. Always use your most recent med list. acyclovir 800 MG tablet Commonly known as: Zovirax Notes to patient: No medication day of surgery per surgeons office apixaban 5 MG tablet Commonly known as: Eliquis Notes to patient: Hold 5 days prior to surgery aspirin 81 MG EC tablet Notes to patient: No medication day of surgery per surgeons office atorvastatin 20 MG tablet Commonly known as: Lipitor Notes to patient: No medication day of surgery per surgeons office bacitracin-polymyxin b ointment Commonly known as: Polysporin Apply to affected area daily carvedilol 12.5 MG tablet Commonly known as: Coreg Notes to patient: No medication day of surgery per surgeons office dapagliflozin 10 MG Commonly known as: Farxiga Notes to patient: Follow up with surgeons office regarding when to hold medication prior to surgery difluprednate 0.05 % ophthalmic solution Commonly known as: Durezol Notes to patient: No medication day of surgery per surgeons office Entresto 24-26 MG tablet Generic drug: sacubitril-valsartan Notes to patient: Follow up with surgeons office regarding when to hold this medication prior to surgery ERYTHROMYCIN EX Notes to patient: No medication day of surgery per surgeons office furosemide 40 MG tablet Commonly known as: Lasix Notes to patient: No medication day of surgery per surgeons office NON FORMULARY Notes to patient: No medication day of surgery per surgeons office omeprazole [address] capsule Commonly known as: PriLOSEC Notes to patient: No medication day of surgery per surgeons office timolol 0.5 % ophthalmic solution Commonly known as: Timoptic Notes to patient: No medication day of surgery per surgeons office Additional Instructions: TRANSPORTATION ASSISTANT AND PARKING IN THE MAIN DECK ARE FREE DAY OF SURGERY. PARKING IN THE DECK-- AFTER PARKING TAKE THE ELEVATOR TO LEVEL ONE AND TAKE THE BRIDGE TO THE HOSPITAL. GO TO THE RIGHT AND GO AROUND THE CORNER TO THE SAME DAY SURGERY DESK AND CHECK IN THERE. IF GOING IN THE MAIN ENTRANCE-- TURN LEFT AND GO DOWN THE HOLLIDAY TO THE H ELEVATORS AND TAKE THEM TO ONE, LEFT OFF THE ELEVATOR AND GO AROUND TO THE SAME DAY DESK AND CHECK IN. Do not eat after midnight. You may have clear liquids up to two hours prior to your surgery. Take the following medications with water NO MEDICATION DAY OF SURGERY Follow instructions on use of wipes, nasal ointment and mouth rinse as instructed. After using wipes, no makeup,lotion,powder or body spray. No hair products. Remove all jewelry and leave it at home. Do not wear contacts day of surgery. If you have specific questions, please call your surgeon. You may use the pizza maker parking located at the main entrance on [address] and take the H elevator to the first floor for same day surgery. Take a left after exiting the elevator and check in at the desk. Or- You may use the parking in the Main deck. Take the level one bridge to the H building and follow the signs for same day surgery. Check in at the desk. Normal [facility] Office Visiton 11-29-2022 Follow-up visit [id number] Neto Quiñones 1940 F Date Provider Department Center 11/29/2022 [id number], [facility] ACH CT None Family History Problem Relation Age of Onset Heart disease Father Family Status - Relation Status Age at Father Level of Service:60387 [place] OFFICE/OP CONSLTJ NEW/EST PT HIGH MDM 55 MINUTES Reason for Visit and Comments: New Patient [542] Normal [facility] Progress Noteon 11-29-2022 Progress Note Pre op teaching done with patient and family. Instructed to hold NSAIDS 7 days prior to surgery, hold Eliquis 5 days prior to surgery, and not to take any medications day of surgery. Pharmacy confirmed. All questions answered. Normal [facility] Progress Note [facility] CARDIOVASCULAR & THORACIC SURGERY [address] [place] [address] [address] [facility] [address] Dept: [phone] Dept Loc: [phone] Visit type: New Reason for Visit: CAD, [...] or ischemia or arrhythmia, and . Danielle Lai MD Cardiothoracic Surgery History of Present Illness Dayana Quiñones is a 82 y.o. female referred by Dr. Brumfield for CABG and MVR. Per note, pt has history of CAD s/p acute ME and underwent dug-eluting stent to LAD as [...] Atherosclerosis of coronary artery bypass graft of morongo heart without angina pectoris Hypertension Ischemic cardiomyopathy [...] 1967 Years since quittin.6 Smokeless tobacco: Never Substance [...] timolol (Timoptic) 0. (more content not included)... Normal [facility] INR in Blood by Coagulation assayOrdered By: Kinga Eubanks on 11-14-2022 INR Coag (Bld) [Relative time] 1.3 {INR} [facility] - CoagulationOrde red By: Kinga Eubanks on 11-14-2022 aPTT Coag (Bld) [Time] 29.7 s 24.1-36.2 [facility] PT Coag (PPP) [Time] 16.1 s 11.7-14.9 [facility] Basophil percentageOrdered B y: Derek Brumfield on 11-07-2022 Chloride [Moles/Vol] 111 mmol/L 98-107 [facility] Glucose [Mass/Vol] 98 mg/dL 74-106 [facility] Potassium [Moles/Vol] 3.8 mmol/L 3.5-5.1 [facility] Sodium [Moles/Vol] 142 mmol/L 136-145 [facility] WBC (Bld) [#/Vol] 9.4 10*3/uL 4.4-11.0 [facility] Blood erythrocytes count (nu mber/volume)Ordered By: Derek Brumfield on 11-07-2022 RBC (Bld) [#/Vol] 4.02 10*6/uL 4.2-5.4 [facility] Blood hemoglobin measurement (mass/volume)Ordered By: Derek Brumfield on 11-07-2022 Hemoglobin (Bld) [Mass/Vol] 12.0 g/dL 12.0-15.0 [facility] Blood platelet mean volumeOr dered By: Derek Brumfield on 11-07-2022 Platelet mean volume (Bld) [Entitic vol] 11.6 fL 6.2-12.0 [facility] Determination of erythrocyte mean corpuscular volume (MCV)Ordered By: Derek Brumfield on 11-07-2022 MCV (RBC) [Entitic vol] 95.3 fL 81-99 [facility] Hematocrit Auto (Bld) [Volum e fraction]Ordered By: Derek Brumfield on 11-07-2022 Hematocrit (Bld) [Volume fraction] 38.3 % 37-47 [facility] - Chemistry and C hemistry - challengeOrdered By: Derek Brumfield on 11-07-2022 CO2 [Moles/Vol] 27.0 mmol/L 21.0-32.0 [facility] Natriuretic peptide B (Bld) [Mass/Vol] 1561.7 pg/mL 0-100 [facility] Urea nitrogen/Creatinine [Mass ratio] 15.7 mg/mg 10-20 [facility] - Hematology and Cell countsOrdered By: Derek Brumfield on 11-07-2022 Erythrocyte distribution width (RBC) [Entitic vol] 49.4 fL 35.1-43.9 [facility] Erythrocyte distribution width (RBC) [Ratio] 14.1 % 11.6-14.6 [facility] MCH (RBC) [Entitic mass] 29.9 pg 27.0-32.0 [facility] MCHC Auto (RBC) [Mass/Vol]Or dered By: Derek Brumfield on 11-07-2022 MCHC (RBC) [Mass/Vol] 31.3 g/dL 32-36 [facility] No Panel InformationOrdered By: Derek Brumfield on 11-07-2022 Estimated GFR (MDRD) Amer 62 mL/min >60 [facility] Comment on above: GFR Calc Estimated GFR (MDRD) Non-Af Amer 51 mL/min >60 [facility] Comment on above: Non- GFR Calc Thyroid Stimulating Hormone (TSH) 1.26 uIU/mL 0.358-3.74 [facility] Platelets bldOrdered By: Nigel Brumfield on 11-07-2022 Platelets (Bld) [#/Vol] 204 10*3/uL 150-450 [facility] Serum or plasma calcium etta urement (mass/volume)Ordered By: Derek Brumfield on 11-07-2022 Calcium [Mass/Vol] 8.1 mg/dL 8.5-10.1 [facility] Serum or plasma creatinine m easurement (mass/volume)Ordered By: Derek Brumfield on 11-07-2022 Creatinine [Mass/Vol] 1.08 mg/dL 0.55-1.02 [facility] Comment on above: The validity of the calculated GFR & GFRAA in patients over 70 years has not been determined. Clinical correlation is essential. Serum or plasma urea nitroge n measurement (mass/volume)Ordered By: Derek Brumfield on 11-07-2022 Urea nitrogen [Mass/Vol] 17 mg/dL 7-18 [facility] Thin prep Papanicolaou smear with manual screeningOrdered By: Derek Brumfield on 11-07-2022 Thin prep Papanicolaou smear with manual screening 4 5-15 [facility] Basophil percentageOrdered B y: Bart Gonzalez on 05-31-2022 Chloride [Moles/Vol] 104 mmol/L 98-107 [facility] Glucose [Mass/Vol] 98 mg/dL 74-106 [facility] Potassium [Moles/Vol] 4.3 mmol/L 3.5-5.1 [facility] Sodium [Moles/Vol] 138 mmol/L 136-145 [facility] - Chemistry and C hemistry - challengeOrdered By: Bart Gonzalez on 05-31-2022 CO2 [Moles/Vol] 28.0 mmol/L 21.0-32.0 [facility] Natriuretic peptide B (Bld) [Mass/Vol] 223.1 pg/mL 0-100 [facility] Urea nitrogen/Creatinine [Mass ratio] 19.3 mg/mg 10-20 [facility] No Panel InformationOrdered By: Bart Gonzalez on 05-31-2022 Estimated GFR (MDRD) Amer 59 mL/min >60 [facility] Comment on above: GFR Calc Estimated GFR (MDRD) Non-Af Amer 48 mL/min >60 [facility] Comment on above: Non- GFR Calc Serum or plasma calcium etta urement (mass/volume)Ordered By: Bart Gonzalez on 05-31-2022 Calcium [Mass/Vol] 8.9 mg/dL 8.5-10.1 [facility] Serum or plasma creatinine m easurement (mass/volume)Ordered By: Bart Gonzalez on 05-31-2022 Creatinine [Mass/Vol] 1.14 mg/dL 0.55-1.02 [facility] Comment on above: The validity of the calculated GFR & GFRAA in patients over 70 years has not been determined. Clinical correlation is essential. Serum or plasma urea nitroge n measurement (mass/volume)Ordered By: Bart Gonzalez on 05-31-2022 Urea nitrogen [Mass/Vol] 22 mg/dL 7-18 [facility] Thin prep Papanicolaou smear with manual screeningOrdered By: Bart Gonzalez on 05-31-2022 Thin prep Papanicolaou smear with manual screening 6 5-15 [facility] XR Chest PA and Lateralon IMPRESSION: Stable exam with mild cardiomegaly and bilateral interstitial parenchymal changes as described above and most likely related to pulmonary fibrosis. Clinical correlation and follow-up exams are recommended. Value Advisor: PSCMalia Transcribe Date/Time: May 27 2022 8:45A Dictated by : OSMAR CLAY MD This examination was interpreted and the report reviewed and electronically signed by: OSMAR CLAY MD on May 27 2022 8:47AM [facility] DIVISION OF RADIOLOGY * * *Final Report* * * DATE OF EXAM: May 26 2022 12:55PM WOX 5291 - XR CHEST 2V FRONTAL/LAT / PROCEDURE REASON: Bacterial pneumonia * * * * Physician Interpretation * * * * EXAMINATION: CHEST RADIOGRAPH (2 VIEW FRONTAL & LATERAL) CLINICAL HISTORY: Bacterial pneumonia MQ: XC2_6 EXAM DATE/TIME: 05/26/2022 12:55 PM COMPARISON: 05/11/2022. RESULT: Lines, tubes, and devices: A left pacemaker remains in place. Lungs and pleura: There are persistent bilateral interstitial changes suggestive of pulmonary fibrosis. Inflammatory or connective-tissue disease or possibly viral pneumonia cannot be totally excluded. The pleural margins remain unremarkable. Cardiomediastinal silhouette: There is persistent mild cardiomegaly. Bones and soft tissues: Unremarkable. DIVISION OF RADIOLOGY Provider, [facility] - 05/27/2022 * * *Final Report* * * DATE OF EXAM: May 26 2022 12:55PM WOX 5291 - XR CHEST 2V FRONTAL/LAT / PROCEDURE REASON: Bacterial pneumonia * * * * Physician Interpretation * * * * EXAMINATION: CHEST RADIOGRAPH (2 VIEW FRONTAL & LATERAL) CLINICAL HISTORY: Bacterial pneumonia MQ: XC2_6 EXAM DATE/TIME: 05/26/2022 12:55 PM COMPARISON: 05/11/2022. RESULT: Lines, tubes, and devices: A left pacemaker remains in place. Lungs and pleura: There are persistent bilateral interstitial changes suggestive of pulmonary fibrosis. Inflammatory or connective-tissue disease or possibly viral pneumonia cannot be totally excluded. The pleural margins remain unremarkable. Cardiomediastinal silhouette: There is persistent mild cardiomegaly. Bones and soft tissues: Unremarkable. IMPRESSION IMPRESSION: Stable exam with mild cardiomegaly and bilateral interstitial parenchymal changes as described above and most likely related to pulmonary fibrosis. Clinical correlation and follow-up exams are recommended. Value Advisor: DHIRAJ Transcribe Date/Time: May 27 2022 8:45A Dictated by : OSMAR CLAY MD This examination was interpreted and the report reviewed and electronically signed by: OSMAR CLAY MD on May 27 2022 8:47AM EST [facility] XR Chest PA and LateralOrder ed By: Ccf Provider on 05-27-2022 [facility] XR Chest PA and Lateralon Radiology Study observation (narrative) [facility] bev [facility] CBC W Auto Differential pane l (Bld)on 05-17-2022 Basophils (Bld) [#/Vol] 0.06 10*3/uL <0.11 k/uL [facility] Basophils/100 WBC (Bld) 0.5 % [facility] Differential cell count method Nom (Bld) Auto [facility] Eosinophils (Bld) [#/Vol] 0.51 10*3/uL High <0.46 k/ uL [facility] Eosinophils/100 WBC (Bld) 4.3 % [facility] Erythrocyte distribution width (RBC) [Ratio] 12.6 % 11.5 - 15.0 % [facility] Hematocrit (Bld) [Volume fraction] 36.2 % 36.0 - 46.0 % [facility] Hemoglobin (Bld) [Mass/Vol] 11.7 g/dL 11.5 - 15.5 g/dL [facility] Immature granulocytes (Bld) [#/Vol] 0.04 10*3/uL <0.10 k/uL [facility] Immature granulocytes/100 WBC (Bld) 0.3 % [facility] Lymphocytes (Bld) [#/Vol] 1.89 10*3/uL 1. 00 - 4.00 k/uL [facility] Lymphocytes/100 WBC (Bld) 16.1 % [facility] MCH (RBC) [Entitic mass] 30.0 pg 26. 0 - 34.0 pg [facility] MCHC (RBC) [Mass/Vol] 32.3 g/dL 30.5 - 36.0 g/dL [facility] MCV (RBC) [Entitic vol] 92.8 fL 80.0 - 100.0 fL [facility] Monocytes (Bld) [#/Vol] 0.79 10*3/uL <0.87 k/uL [facility] Monocytes/100 WBC (Bld) 6.7 % [facility] Neutrophils (Bld) [#/Vol] 8.44 10*3/uL High 1. 45 - 7.50 k/uL [facility] Neutrophils/100 WBC (Bld) 72.1 % [facility] Nucleated RBC (Bld) [#/Vol] <0.01 k/uL [facility] Nucleated RBC/100 WBC (Bld) [Ratio] 0.0 /100 WBC [facility] Platelet mean volume (Bld) [Entitic vol] 11.1 fL 9.0 - 12.7 fL [facility] Platelets (Bld) [#/Vol] 265 10*3/uL 150 - 400 k/uL [facility] RBC (Bld) [#/Vol] 3.90 10*6/uL 3.90 - 5.2 0 m/uL [facility] WBC (Bld) [#/Vol] 11.73 10*3/uL High 3.70 - 11.00 k/uL [facility] XR CHEST 2V FRONTAL/LATon [facility] XR Chest PA and Lateralon IMPRESSION: 1. Few bilateral hazy opacities which may be infectious/inflammator y 2. Again noted is bilateral interstitial prominence, possibly due to chronic interstitial lung disease Value Advisor: PSCB Transcribe Date/Time: May 11 2022 1:16P Dictated by : YANELI GOODRICH MD This examination was interpreted and the report reviewed and electronically signed by: YANELI GOODRICH MD on May 11 2022 1:19PM [facility] DIVISION OF RADIOLOGY * * *Final Report* * * DATE OF EXAM: May 11 2022 1:14PM WOX 5291 - XR CHEST 2V FRONTAL/LAT / PROCEDURE REASON: Viral URI with cough * * * * Physician Interpretation * * * * EXAMINATION: CHEST RADIOGRAPH (2 VIEW FRONTAL & LATERAL) CLINICAL HISTORY: Viral URI with cough MQ: XC2_6 EXAM DATE/TIME: 05/11/2022 1:14 PM COMPARISON: Chest x-ray 09/17/2016 RESULT: Lines, tubes, and devices: Pacemaker is present. Lungs and pleura: Again noted are prominent interstitial markings. There are a few hazy opacities in the mid to lower lungs bilaterally. No pleural effusion or pneumothorax. Cardiomediastinal silhouette: Stable cardiomediastinal silhouette. 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 DIVISION OF RADIOLOGY Provider, Radha [facility] - 05/11/2022 * * *Final Report* * * DATE OF EXAM: May 11 2022 1:14PM WOX 5291 - XR CHEST 2V FRONTAL/LAT / PROCEDURE REASON: Viral URI with cough * * * * Physician Interpretation * * * * EXAMINATION: CHEST RADIOGRAPH (2 VIEW FRONTAL & LATERAL) CLINICAL HISTORY: Viral URI with cough MQ: XC2_6 EXAM DATE/TIME: 05/11/2022 1:14 PM COMPARISON: Chest x-ray 09/17/2016 RESULT: Lines, tubes, and devices: Pacemaker is present. Lungs and pleura: Again noted are prominent interstitial markings. There are a few hazy opacities in the mid to lower lungs bilaterally. No pleural effusion or pneumothorax. Cardiomediastinal silhouette: Stable cardiomediastinal silhouette. 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 IMPRESSION IMPRESSION: 1. Few bilateral hazy opacities which may be infectious/inflammator y 2. Again noted is bilateral interstitial prominence, possibly due to chronic interstitial lung disease Value Advisor: DHIRAJ Transcribe Date/Time: May 11 2022 1:16P Dictated by : YANELI GOODRICH MD This examination was interpreted and the report reviewed and electronically signed by: YANELI GOODRICH MD on May 11 2022 1:19PM EST [facility] Radiology Study observation (narrative) [facility] XR Chest PA and LateralOrder ed By: Ccf Provider on 05-11-2022 [facility] CNOVon 03-11-2019 CNOV Office Visit (AGVASACC) DAYANA QUIÑONES ([id number]) 1940 F Date Time Provider Department 03/11/19 3:00 PM [facility]IGHT [place] During your visit today, we recorded the following information about you: Pulse Respiration Blood pressure Weight 109/minute 18/minute 124/72 75.8 kg Height 1.6 m Dwight Cunningham MD 03/11/2019 5:38 PM Signed Dayana Quiñones is an 79 year old female here for cardiothoracic surgery evaluation for a fractured sternum. HPI: The patient is now an 79-year-old female who initially underwent stents in October 2018 for a STEMI. She then underwent more stents in other vessels on December 19 and did well. She fell off the porch the following day on December 20, 2018 landing on the anterior chest and apparently fractured the sternum. The sternal fracture was confirmed on sternal views from January 28, 2019 which showed fracture with displacement. The patient's symptoms from the sternal fracture have essentially resolved. She does have a residual lump. She has no remaining hematoma. She denies any popping clicking or pain associated with coughing or sneezing which she had initially. Overall she's actually fairly asymptomatic from this other than the cosmetic lump as she refers to it. Her Brilinta was switched to Plavix and she remains on aspirin and Plavix in addition to multiple other medications by her and her daughter's report. MEDICATIONS: Current Outpatient Medications Medication Sig Dispense Refill - clopidogrel (PLAVIX) 75 mg tablet Take 75 mg by mouth once daily. - carvedilol (COREG) 3.125 mg tablet Take 3.125 mg by mouth twice daily with meals. - isosorbide mononitrate ER (IMDUR) 30 mg 24 hr tablet Take 30 mg by mouth once daily. - atorvastatin (LIPITOR) 20 mg tablet Take 20 mg by mouth daily at bedtime. - lisinopril 2.5 mg tablet Take 2.5 mg by mouth once daily. - Omeprazole 40 mg capsule Take 1 capsule by mouth once daily. 90 capsule 3 - meclizine (ANTIVERT) 25 mg tab Take 1 tablet by mouth three times daily as needed (dizziness). 40 tablet 1 - Difluprednate 0.05 % drop Use 1 Drop in the left eye as directed. Every other day. - Cholecalciferol, Vitamin D3, 2,000 unit cap Take 1 capsule by mouth once daily. 30 capsule 12 - COMPOUNDED PRESCRIPTION 1 Drop. Every other day-left eye - aspirin, enteric coated (ASPIRIN, ENTERIC COATED) 81 mg EC tablet Take 81 mg by mouth once daily. - acyclovir (ZOVIRAX) 800 mg tablet Take 1 tablet by mouth twice daily. Take at first signs of outbreak. - erythromycin ophthalmic ointment Use 1 application in the left eye daily at bedtime. 0 - ticagrelor (BRILINTA) 90 mg tablet Take 90 mg by mouth twice daily. - desoximetasone (TOPICORT LP) 0.05 % cream Apply 1 application to affected area twice daily. 30 g 1 - amLODIPine (NORVASC) 5 mg tablet Take 1 tablet by mouth once daily. (Patient not taking: Reported on 01/28/2019 ) 30 tablet 11 - hydroCHLOROthiazide (HYDRODIURIL, ESIDRIX) 12.5 mg tablet Take 1 tablet by mouth once daily. (Patient not taking: Reported on 01/28/2019 ) 30 tablet 11 No current facility-administered medications for this visit. 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 She denies a previous history of diabetes mellitus, liver disease, or congestive heart failure. Past surgical history includes the above-noted heart caths and stent procedures, the recent fall, and the pacemaker as noted above. BP 124/72 Pulse 109 Resp 18 Ht 5' 3 (1.60m) Wt 167 lb (75.8kg) SpO2 97% BMI 29.59 kg/(m2). PHYSICAL EXAM: Well-developed well-nourished pleasant elderly female in no acute distress. Cardiac exam is remarkable for regular rhythm. Lungs clear to auscultation anteriorly and posteriorly. There is a palpable deformity at the junction of the proximal to mid third of the sternum. There is no tenderness. There is no instability. There is no popping. There is no residual hematoma. The area is not tender. I reviewed the sternal films. The history, examination, and avkt-ln-asgw counseling session occupied greater than 30 minutes of xjxx-cy-bfta time with the patient and her daughter in the exam room today. ASSESSMENT: Posterior traumatic sternal fracture--improving PLAN: Had a lengthy discussion with the patient and her daughter about the options here. Given that she is relatively asymptomatic at this time surgery would not be recommended especially since surgery at this time would require interruption of her dual antiplatelet therapy with recent, what I presume are, drug-eluting stents in multiple coronaries. I explained to her that normally we would only repair this if she were otherwise in good shape and symptomatic enough to limit her activities of daily living which is not the case. FOLLOW UP: She has decided that since she continues to improve and is not acutely symptomatic from this residual defect we will continue observation. She can follow up with us if needed in the future. MD Dwight Trejo MD 03/11/2019 5:37 PM Signed Activities as tolerated. Referring Provider: SELF [[id number]] Allergies As of Date: 03/11/2019 Noted Allergy Reaction MORPHINE 01/11/2017 8 - GI Upset Comments: vomiting Date Reviewed: 03/11/2019 Reviewed by: Cassandra Melgoza - Fully Assessed Reason for Visit: New Patient Evaluation [154] Cmt: referred by Dr. Grarido. Displaced nonhealing sternal fx 01/28/19 Primary Visit Diagnosis:Closed fracture of sternum, unspecified portion of sternum, initial encounter [S22.20XA] Prescriptions as of 03/11/2019 Sig: CLOPIDOGREL 75 MG TABLET Take 75 mg by mouth once kat* CARVEDILOL 3.125 MG TABLET Take 3.125 mg by mouth twice * ISOSORBIDE MONONITRATE ER 30 * Take 30 mg by mouth once kat* ATORVASTATIN 20 MG TABLET Take 20 mg by mouth daily at * LISINOPRIL 2.5 MG TABLET Take 2.5 mg by mouth once mayra* OMEPRAZOLE 40 MG CAPSULE,MICHEL* Take 1 capsule by mouth once * MECLIZINE 25 MG TABLET Take 1 tablet by mouth three * DIFLUPREDNATE 0.05 % EYE DROPS Use 1 Drop in the left eye as* CHOLECALCIFEROL (VITAMIN D3) * Take 1 capsule by mouth once * COMPOUNDED PRESCRIPTION 1 Drop. Every other day-left * ASPIRIN 81 MG TABLET,DELAYED * Take 81 mg by mouth once kat* ACYCLOVIR 800 MG TABLET Take 1 tablet by mouth twice * ERYTHROMYCIN 5 MG/GRAM (0.5 %* Use 1 application in the left* DESOXIMETASONE 0.05 % TOPICAL* Apply 1 application to affect* AMLODIPINE 5 MG TABLET Take 1 tablet by mouth once d* Patient not taking: Reported on 01/28/2019 HYDROCHLOROTHIAZIDE 12.5 MG T* Take 1 tablet by mouth once d* Patient not taking: Reported on 01/28/2019 Problem List As Of Date 03/11/2019 Noted Resolved Benign hypertension [I10] 07/01/2015 Gastroesophageal reflux disease [K21.9] 07/01/2015 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] 07/01/2015 Fibrocystic breast disease (FCBD) in female [N6*07/01/2015 Occult blood positive stool [R19.5] 12/21/2016 Neutrophilia [D72.9] 12/22/2016 12/14/2017 Lichen sclerosus et atrophicus [L90.0] 02/22/2017 BPPV (benign paroxysmal positional vertigo), un*04/11/2017 Acute renal failure superimposed on stage 3 chr*04/12/2017 04/26/2017 CKD (chronic kidney disease), stage III [N18.3] 04/26/2017 Vitamin D deficiency [E55.9] 09/13/2017 Complete heart block (HCC) [I44.2] 07/31/2018 Adjustment disorder with anxious mood [F43.22] 07/31/2018 Normally functioning cardiac pacemaker present *11/01/2018 Arthritis of left ankle [M19.072] 11/01/2018 Closed fracture of body of sternum [S22.22XA] 02/10/2019 Other instructions from your clinician: Activities as tolerated. Medications Discontinued During This Encounter ticagrelor (BRILINTA) 90 mg tablet 03/11/2019 Class: Historical Med Route: ORAL Sig: Take 90 mg by mouth twice daily. Disc: Discontinued by another Health Care Provider Disposition: Return if symptoms worsen or fail to improve. Follow-up and Disposition History Recorded Encounter Status:Closed by DWIGHT CUNNINGHAM MD on 03/11/19 [facility] PROGRESSon 03-11-2019 PROGRESS HNO ID: [id number] Author: Dwight Cunningham Service: ? Author Type: Physician Type: Progress Notes Filed: 03/11/2019 5:38 PM Note Text: Dayana Quiñones is an 79 year old female here for cardiothoracic surgery evaluation for a fractured sternum. HPI: The patient is now an 79-year-old female who initially underwent stents in October 2018 for a STEMI. She then underwent more stents in other vessels on December 19 and did well. She fell off the porch the following day on December 20, 2018 landing on the anterior chest and apparently fractured the sternum. The sternal fracture was confirmed on sternal views from January 28, 2019 which showed fracture with displacement. The patient's symptoms from the sternal fracture have essentially resolved. She does have a residual lump. She has no remaining hematoma. She denies any popping clicking or pain associated with coughing or sneezing which she had initially. Overall she's actually fairly asymptomatic from this other than the cosmetic lump as she refers to it. Her Brilinta was switched to Plavix and she remains on aspirin and Plavix in addition to multiple other medications by her and her daughter's report. MEDICATIONS: Current Outpatient Medications Medication Sig Dispense Refill - clopidogrel (PLAVIX) 75 mg tablet Take 75 mg by mouth once daily. - carvedilol (COREG) 3.125 mg tablet Take 3.125 mg by mouth twice daily with meals. - isosorbide mononitrate ER (IMDUR) 30 mg 24 hr tablet Take 30 mg by mouth once daily. - atorvastatin (LIPITOR) 20 mg tablet Take 20 mg by mouth daily at bedtime. - lisinopril 2.5 mg tablet Take 2.5 mg by mouth once daily. - Omeprazole 40 mg capsule Take 1 capsule by mouth once daily. 90 capsule 3 - meclizine (ANTIVERT) 25 mg tab Take 1 tablet by mouth three times daily as needed (dizziness). 40 tablet 1 - Difluprednate 0.05 % drop Use 1 Drop in the left eye as directed. Every other day. - Cholecalciferol, Vitamin D3, 2,000 unit cap Take 1 capsule by mouth once daily. 30 capsule 12 - COMPOUNDED PRESCRIPTION 1 Drop. Every other day-left eye - aspirin, enteric coated (ASPIRIN, ENTERIC COATED) 81 mg EC tablet Take 81 mg by mouth once daily. - acyclovir (ZOVIRAX) 800 mg tablet Take 1 tablet by mouth twice daily. Take at first signs of outbreak. - erythromycin ophthalmic ointment Use 1 application in the left eye daily at bedtime. 0 - ticagrelor (BRILINTA) 90 mg tablet Take 90 mg by mouth twice daily. - desoximetasone (TOPICORT LP) 0.05 % cream Apply 1 application to affected area twice daily. 30 g 1 - amLODIPine (NORVASC) 5 mg tablet Take 1 tablet by mouth once daily. (Patient not taking: Reported on 01/28/2019 ) 30 tablet 11 - hydroCHLOROthiazide (HYDRODIURIL, ESIDRIX) 12.5 mg tablet Take 1 tablet by mouth once daily. (Patient not taking: Reported on 01/28/2019 ) 30 tablet 11 No current facility-administered medications for this visit. 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 She denies a previous history of diabetes mellitus, liver disease, or congestive heart failure. Past surgical history includes the above-noted heart caths and stent procedures, the recent fall, and the pacemaker as noted above. BP 124/72 Pulse 109 Resp 18 Ht 5' 3 (1.60m) Wt 167 lb (75.8kg) SpO2 97% BMI 29.59 kg/(m2). PHYSICAL EXAM: Well-developed well-nourished pleasant elderly female in no acute distress. Cardiac exam is remarkable for regular rhythm. Lungs clear to auscultation anteriorly and posteriorly. There is a palpable deformity at the junction of the proximal to mid third of the sternum. There is no tenderness. There is no instability. There is no popping. There is no residual hematoma. The area is not tender. I reviewed the sternal films. The history, examination, and umuz-ka-avsm counseling session occupied greater than 30 minutes of kgcx-bj-ovis time with the patient and her daughter in the exam room today. ASSESSMENT: Posterior traumatic sternal fracture--improving PLAN: Had a lengthy discussion with the patient and her daughter about the options here. Given that she is relatively asymptomatic at this time surgery would not be recommended especially since surgery at this time would require interruption of her dual antiplatelet therapy with recent, what I presume are, drug-eluting stents in multiple coronaries. I explained to her that normally we would only repair this if she were otherwise in good shape and symptomatic enough to limit her activities of daily living which is not the case. FOLLOW UP: She has decided that since she continues to improve and is not acutely symptomatic from this residual defect we will continue observation. She can follow up with us if needed in the future. Dwight Cunningham MD [facility] Vital Signs Date Time Vital Sign Value Performing Clinician Bradley nuno 12-24-2024 08:28-0400 Body mass index (BMI) [Ratio] 25.23 kg/m2 Silvia Podlogar PROFESSOR OF CHEMICAL ENGINEERING.BRANCH OFFICE MANAGER Work Phone: [facility] 12-24-2024 08:28-0400 Body temperature 96.8 [degF] Silvia Podlogar PROFESSOR OF CHEMICAL ENGINEERING.BRANCH OFFICE MANAGER Work Phone: [facility] 12-24-2024 08:28-0400 Body weight 64.59 kg Silvia Podlogar PROFESSOR OF CHEMICAL ENGINEERING.BRANCH OFFICE MANAGER Work Phone: [facility] 12-24-2024 08:28-0400 Diastolic blood pressure 64 mm[Hg] Silvia Podlogar PROFESSOR OF CHEMICAL ENGINEERING.BRANCH OFFICE MANAGER Work Phone: [facility] 12-24-2024 08:28-0400 Heart rate 67 /min Silvia Podlogar PROFESSOR OF CHEMICAL ENGINEERING.BRANCH OFFICE MANAGER Work Phone: [facility] 12-24-2024 08:28-0400 Respiratory rate 18 /min Silvia Podlogar PROFESSOR OF CHEMICAL ENGINEERING.BRANCH OFFICE MANAGER Work Phone: [facility] 12-24-2024 08:28-0400 SaO2% (BldA) [Mass fraction] 93 % Silvia Podlogar PROFESSOR OF CHEMICAL ENGINEERING.BRANCH OFFICE MANAGER Work Phone: [facility] 12-24-2024 08:28-0400 Systolic blood pressure 118 mm[Hg] Silvia Podlogar PROFESSOR OF CHEMICAL ENGINEERING.BRANCH OFFICE MANAGER Work Phone: [facility] 12-04-2024 09:06-0400 Body height 157.[address] Luiz Avery MD Work Phone: [facility] 12-04-2024 09:06-0400 Body mass index (BMI) [Ratio] 25.9 kg/m2 Dr. Luiz Avery MD Work Phone: [facility] 12-04-2024 09:06-0400 Body weight 64.[address] Luiz Avery MD Work Phone: [facility] 12-04-2024 09:06-0400 Diastolic blood pressure 66 mm[Hg] Dr. Luiz Avery MD Work Phone: [facility] 12-04-2024 09:06-0400 Heart rate 60 /min Dr. Luiz Avery MD Work Phone: [facility] 12-04-2024 09:06-0400 Respiratory rate 16 /min Dr. Luiz Avery MD Work Phone: [facility] 12-04-2024 09:06-0400 Systolic blood pressure 111 mm[Hg] Dr. Luiz Avery MD Work Phone: [facility] 12-01-2024 07:22-0400 Body mass index (BMI) [Ratio] 25.51 kg/m2 Silvia Podlogar PROFESSOR OF CHEMICAL ENGINEERING.BRANCH OFFICE MANAGER Work Phone: [facility] 12-01-2024 07:22-0400 Body weight 65.32 kg Silvia Podlogar PROFESSOR OF CHEMICAL ENGINEERING.BRANCH OFFICE MANAGER Work Phone: [facility] 12-01-2024 07:22-0400 Diastolic blood pressure 66 mm[Hg] Silvia Podlogval PROFESSOR OF CHEMICAL ENGINEERING.BRANCH OFFICE MANAGER Work Phone: [facility] 12-01-2024 07:22-0400 Heart rate 59 /min Silvia Longlogval PROFESSOR OF CHEMICAL ENGINEERING.BRANCH OFFICE MANAGER Work Phone: [facility] 12-01-2024 07:22-0400 Respiratory rate 18 /min Silvia Podlogar PROFESSOR OF CHEMICAL ENGINEERING.BRANCH OFFICE MANAGER Work Phone: [facility] 12-01-2024 07:22-0400 SaO2% (BldA) [Mass fraction] 94 % Silvia Podlogar PROFESSOR OF CHEMICAL ENGINEERING.BRANCH OFFICE MANAGER Work Phone: [facility] 12-01-2024 07:22-0400 Systolic blood pressure 108 mm[Hg] Silvia Podlogar PROFESSOR OF CHEMICAL ENGINEERING.BRANCH OFFICE MANAGER Work Phone: [facility] 10-29-2024 11:21-0400 Body height 157.[address] Luiz Avery MD Work Phone: 8(704)565-663560 [place] [address] 10-29-2024 11:21-0400 Body mass index (BMI) [Ratio] 26.2 kg/m2 Dr. Luiz Avery MD Work Phone: 0(885)370-425260 [place] [address] 10-29-2024 11:21-0400 Body weight 64.[address] Luiz Avery MD Work Phone: 5(926)539-577898 [place] [address] 10-29-2024 11:21-0400 Diastolic blood pressure 65 mm[Hg] Dr. Luiz Avery MD Work Phone: 1(863)722-019660 [place] [address] 10-29-2024 11:21-0400 Heart rate 60 /min Dr. Luiz Avery MD Work Phone: 1(282)482-747260 [place] [address] 10-29-2024 11:21-0400 Respiratory rate 14 /min Dr. Luiz Avery MD Work Phone: 1(023)928-261060 [place] [address] 10-29-2024 11:21-0400 Systolic blood pressure 110 mm[Hg] Dr. Luiz Avery MD Work Phone: 2(270)680-930160 [place] [address] 10-01-2024 08:29-0400 Body height 157.[address] Luiz Avery MD Work Phone: 9(552)332-860160 [place] [address] 10-01-2024 08:29-0400 Body mass index (BMI) [Ratio] 25.7 kg/m2 Dr. Luiz Avery MD Work Phone: [facility] 10-01-2024 08:29-0400 Body weight 63.[address] Luiz Avery MD Work Phone: [facility] 10-01-2024 08:29-0400 Diastolic blood pressure 64 mm[Hg] Dr. Luiz Avery MD Work Phone: [facility] 10-01-2024 08:29-0400 Heart rate 60 /min Dr. Luiz Avery MD Work Phone: [facility] 10-01-2024 08:29-0400 Respiratory rate 16 /min Dr. Luiz Avery MD Work Phone: [facility] 10-01-2024 08:29-0400 Systolic blood pressure 110 mm[Hg] Dr. Luiz Avery MD Work Phone: [facility] 07-04-2024 08:12-0500 Body mass index (BMI) [Ratio] 24.66 kg/m2 Silvia Podlogar PROFESSOR OF CHEMICAL ENGINEERING.BRANCH OFFICE MANAGER Work Phone: [facility] 07-04-2024 08:12-0500 Body weight 63.14 kg Silvia Podlogar PROFESSOR OF CHEMICAL ENGINEERING.BRANCH OFFICE MANAGER Work Phone: [facility] 07-04-2024 08:12-0500 Diastolic blood pressure 66 mm[Hg] Silvia Podlogar PROFESSOR OF CHEMICAL ENGINEERING.BRANCH OFFICE MANAGER Work Phone: [facility] 07-04-2024 08:12-0500 Heart rate 60 /min Silvia Podlogar PROFESSOR OF CHEMICAL ENGINEERING.BRANCH OFFICE MANAGER Work Phone: [facility] 07-04-2024 08:12-0500 Respiratory rate 18 /min Silvia Podlogar PROFESSOR OF CHEMICAL ENGINEERING.BRANCH OFFICE MANAGER Work Phone: [facility] 07-04-2024 08:12-0500 SaO2% (BldA) [Mass fraction] 98 % Silvia Podlogar PROFESSOR OF CHEMICAL ENGINEERING.BRANCH OFFICE MANAGER Work Phone: [facility] 07-04-2024 08:12-0500 Systolic blood pressure 102 mm[Hg] Silvia Podlogar PROFESSOR OF CHEMICAL ENGINEERING.BRANCH OFFICE MANAGER Work Phone: [facility] 05-16-2024 13:10-0500 Body temperature 97.9 [degF] Amalia Avery MD Work Phone: [facility] 05-16-2024 12:38-0500 Body mass index (BMI) [Ratio] 24.48 kg/m2 Amalia Avery MD Work Phone: [facility] 05-16-2024 12:38-0500 Body weight 62.69 kg Amalia Avery MD Work Phone: [facility] 05-16-2024 12:38-0500 Diastolic blood pressure 62 mm[Hg] Amalia Avery MD Work Phone: [facility] 05-16-2024 12:38-0500 Heart rate 68 /min Amalia Avery MD Work Phone: [facility] 05-16-2024 12:38-0500 Respiratory rate 16 /min Amalia Avery MD Work Phone: [facility] 05-16-2024 12:38-0500 SaO2% (BldA) [Mass fraction] 98 % Amalia Avery MD Work Phone: [facility] 05-16-2024 12:38-0500 Systolic blood pressure 112 mm[Hg] Amalia Avery MD Work Phone: [facility] 05-10-2024 11:12-0500 Body mass index (BMI) [Ratio] 24.25 kg/m2 Ari Moomahelio PROFESSOR OF CHEMICAL ENGINEERING.BRANCH OFFICE MANAGER Work Phone: [facility] 05-10-2024 11:12-0500 Body temperature 97.9 [degF] Ari Moomahelio PROFESSOR OF CHEMICAL ENGINEERING.BRANCH OFFICE MANAGER Work Phone: [facility] 05-10-2024 11:12-0500 Body weight 62.1 kg Ari Moomahelio PROFESSOR OF CHEMICAL ENGINEERING.BRANCH OFFICE MANAGER Work Phone: [facility] 05-10-2024 11:12-0500 Diastolic blood pressure 60 mm[Hg] Ari Moomahelio PROFESSOR OF CHEMICAL ENGINEERING.BRANCH OFFICE MANAGER Work Phone: [facility] 05-10-2024 11:12-0500 Heart rate 60 /min Ari Moomaw PROFESSOR OF CHEMICAL ENGINEERING.BRANCH OFFICE MANAGER Work Phone: [facility] 05-10-2024 11:12-0500 Respiratory rate 18 /min Ari Moomaw PROFESSOR OF CHEMICAL ENGINEERING.BRANCH OFFICE MANAGER Work Phone: [facility] 05-10-2024 11:12-0500 SaO2% (BldA) [Mass fraction] 96 % Ari Moomaw PROFESSOR OF CHEMICAL ENGINEERING.BRANCH OFFICE MANAGER Work Phone: [facility] 05-10-2024 11:12-0500 Systolic blood pressure 92 mm[Hg] Ari Moomaw PROFESSOR OF CHEMICAL ENGINEERING.BRANCH OFFICE MANAGER Work Phone: [facility] 01-04-2024 08:05-0400 Body mass index (BMI) [Ratio] 24.37 kg/m2 Silvia Podlogar PROFESSOR OF CHEMICAL ENGINEERING.BRANCH OFFICE MANAGER Work Phone: [facility] 01-04-2024 08:05-0400 Body weight 62.4 kg Silvia Podlogar PROFESSOR OF CHEMICAL ENGINEERING.BRANCH OFFICE MANAGER Work Phone: [facility] 01-04-2024 08:05-0400 Diastolic blood pressure 62 mm[Hg] Silvia Podlogar PROFESSOR OF CHEMICAL ENGINEERING.BRANCH OFFICE MANAGER Work Phone: [facility] 01-04-2024 08:05-0400 Heart rate 77 /min Silvia Podlogar PROFESSOR OF CHEMICAL ENGINEERING.BRANCH OFFICE MANAGER Work Phone: [facility] 01-04-2024 08:05-0400 Respiratory rate 16 /min Silvia Podlogar PROFESSOR OF CHEMICAL ENGINEERING.BRANCH OFFICE MANAGER Work Phone: [facility] 01-04-2024 08:05-0400 SaO2% (BldA) [Mass fraction] 96 % Silvia Podlogar PROFESSOR OF CHEMICAL ENGINEERING.BRANCH OFFICE MANAGER Work Phone: [facility] 01-04-2024 08:05-0400 Systolic blood pressure 112 mm[Hg] Silvia Podlogar PROFESSOR OF CHEMICAL ENGINEERING.BRANCH OFFICE MANAGER Work Phone: [facility] 10-01-2023 09:03-0400 Body mass index (BMI) [Ratio] 23.49 kg/m2 Amalia Avery MD Work Phone: [facility] 10-01-2023 09:03-0400 Body weight 60.15 kg Amalia Avery MD Work Phone: [facility] 10-01-2023 09:03-0400 Diastolic blood pressure 58 mm[Hg] Amalia Avery MD Work Phone: [facility] 10-01-2023 09:03-0400 Heart rate 78 /min Amalia Avery MD Work Phone: [facility] 10-01-2023 09:03-0400 Respiratory rate 16 /min Amalia Avery MD Work Phone: [facility] 10-01-2023 09:03-0400 SaO2% (BldA) [Mass fraction] 96 % Amalia Avery MD Work Phone: [facility] 10-01-2023 09:03-0400 Systolic blood pressure 98 mm[Hg] Amalia Avery MD Work Phone: [facility] 08-07-2023 15:29-0400 Body weight 60.24 kg Amalia Avery MD Work Phone: [facility] 08-07-2023 15:29-0400 Diastolic blood pressure 60 mm[Hg] Amalia Avery MD Work Phone: [facility] 08-07-2023 15:29-0400 Heart rate 89 /min Amalia Avery MD Work Phone: [facility] 08-07-2023 15:29-0400 Respiratory rate 16 /min Amalia Avery MD Work Phone: [facility] 08-07-2023 15:29-0400 SaO2% (BldA) [Mass fraction] 97 % Amalia Avery MD Work Phone: [facility] 08-07-2023 15:29-0400 Systolic blood pressure 96 mm[Hg] Amalia Avery MD Work Phone: [facility] 07-13-2023 09:38-0400 Body height 160.[address] Luiz Avery Work Phone: [facility] 07-13-2023 09:34-0400 Body mass index (BMI) [Ratio] 25 kg/m2 Dr. Luiz Avery Work Phone: [facility] 07-13-2023 09:34-0400 Body weight 63.[address] Luiz Avery Work Phone: [facility] 07-13-2023 09:34-0400 Diastolic blood pressure 60 mm[Hg] Dr. Luiz Avery Work Phone: [facility] 07-13-2023 09:34-0400 Heart rate 90 /min Dr. Luiz Avery Work Phone: [facility] 07-13-2023 09:34-0400 Respiratory rate 18 /min Dr. Luiz Avery Work Phone: [facility] 07-13-2023 09:34-0400 SaO2% (BldA) [Mass fraction] 100 % Dr. Luiz Avery Work Phone: [facility] 07-13-2023 09:34-0400 Systolic blood pressure 106 mm[Hg] Dr. Luiz Avery Work Phone: [facility] 07-09-2023 13:31-0400 Body weight 67.77 kg Amalia Avery MD Work Phone: [facility] 07-09-2023 13:31-0400 Diastolic blood pressure 64 mm[Hg] Amalia Avery MD Work Phone: [facility] 07-09-2023 13:31-0400 Heart rate 69 /min Amalia Avery MD Work Phone: [facility] 07-09-2023 13:31-0400 Respiratory rate 20 /min Amalia Avery MD Work Phone: 7(839)889-776760 [place] [address] 07-09-2023 13:31-0400 SaO2% (BldA) [Mass fraction] 97 % Amalia Avery MD Work Phone: [facility] 07-09-2023 13:31-0400 Systolic blood pressure 102 mm[Hg] Amalia Avery MD Work Phone: 0(366)775-655060 [place] [address] 06-27-2023 17:24-0500 Body temperature 99.1 [degF] Dr. Luiz Avery Work Phone: 4(154)241-254660 [place] [address] 06-27-2023 17:24-0500 Diastolic blood pressure 50 mm[Hg] Dr. Luiz Avery Work Phone: 2(357)788-178860 [place] [address] 06-27-2023 17:24-0500 Heart rate 80 /min Dr. Luiz Avery Work Phone: 8(297)450-277960 [place] [address] 06-27-2023 17:24-0500 Respiratory rate 23 /min Dr. Luiz Avery Work Phone: 1(937)326-842060 [place] [address] 06-27-2023 17:24-0500 SaO2% (BldA) [Mass fraction] 97 % Dr. Luiz Avery Work Phone: 7(222)443-896760 [place] [address] 06-27-2023 17:24-0500 Systolic blood pressure 106 mm[Hg] Dr. Luiz Avery Work Phone: 6(788)944-628060 [place] [address] 06-27-2023 13:19-0500 Body mass index (BMI) [Ratio] 26.6 kg/m2 Dr. Luiz Avery Work Phone: 8(781)588-060360 [place] [address] 06-27-2023 13:19-0500 Body weight 68.[address] Luiz Avery Work Phone: 1(681)534-065760 [place] [address] 06-27-2023 12:43-0500 Body height 160.[address] Luiz Avery Work Phone: 2(215)096-284260 [place] [address] 06-27-2023 10:38-0500 Body temperature 96.49 [degF] Amalia Avery MD Work Phone: [facility] 06-27-2023 10:38-0500 Body weight 68.4 kg Amalia Avery MD Work Phone: [facility] 06-27-2023 10:38-0500 Diastolic blood pressure 62 mm[Hg] Amalia Avery MD Work Phone: [facility] 06-27-2023 10:38-0500 Heart rate 75 /min Amalia Avery MD Work Phone: [facility] 06-27-2023 10:38-0500 Respiratory rate 16 /min Amalia Avery MD Work Phone: [facility] 06-27-2023 10:38-0500 SaO2% (BldA) [Mass fraction] 99 % Amalia Avery MD Work Phone: [facility] 06-27-2023 10:38-0500 Systolic blood pressure 104 mm[Hg] Amalia Avery MD Work Phone: [facility] 06-17-2023 13:01-0500 Body temperature 97.2 [degF] Dr. Luiz Avery Work Phone: [facility] 06-17-2023 13:01-0500 Diastolic blood pressure 55 mm[Hg] Dr. Luiz Avery Work Phone: [facility] 06-17-2023 13:01-0500 Heart rate 83 /min Dr. Luiz Avery Work Phone: [facility] 06-17-2023 13:01-0500 Respiratory rate 20 /min Dr. Luiz Avery Work Phone: [facility] 06-17-2023 13:01-0500 SaO2% (BldA) [Mass fraction] 100 % Dr. Luiz Avery Work Phone: [facility] 06-17-2023 13:01-0500 Systolic blood pressure 87 mm[Hg] Dr. Luiz Avery Work Phone: 3(258)156-611898 [place] [address] 06-17-2023 09:10-0500 Body height 160.[address] Luiz vAery Work Phone: 6(284)721-354560 [place] [address] 06-17-2023 09:10-0500 Body weight 77.[address] Luiz Avery Work Phone: 6(297)626-106560 [place] [address] 06-17-2023 04:58-0500 Body mass index (BMI) [Ratio] 30.2 kg/m2 Dr. Luiz Avery Work Phone: 7(558)376-072060 [place] [address] 06-16-2023 07:33-0500 Inhaled oxygen flow rate 2 L/min Dr. Luiz Avery Work Phone: 8(840)884-203060 [place] [address] 06-14-2023 16:04-0500 Inhaled oxygen concentration 21 % Dr. Luiz Avery Work Phone: 0(261)669-862060 [place] [address] 06-12-2023 22:40-0500 Body temperature 97.7 [degF] Dr. Luiz Avery Work Phone: 8(358)086-667860 [place] [address] 06-12-2023 22:40-0500 Diastolic blood pressure 44 mm[Hg] Dr. Luiz Avery Work Phone: 4(081)661-460960 [place] [address] 06-12-2023 22:40-0500 Heart rate 82 /min Dr. Luiz Avery Work Phone: 5(873)530-364660 [place] [address] 06-12-2023 22:40-0500 Respiratory rate 25 /min Dr. Luiz Avery Work Phone: 2(411)192-136160 [place] [address] 06-12-2023 22:40-0500 SaO2% (BldA) [Mass fraction] 95 % Dr. Luiz Avery Work Phone: 0(193)414-510960 [place] [address] 06-12-2023 22:40-0500 Systolic blood pressure 83 mm[Hg] Dr. Luiz Avery Work Phone: 0(225)967-244060 [place] [address] 06-12-2023 14:51-0500 Body height 160.[address] Luiz Avery Work Phone: 1(103)222-812260 [place] [address] 06-12-2023 14:51-0500 Body mass index (BMI) [Ratio] 27 kg/m2 Dr. Luiz Avery Work Phone: 7(702)175-819560 [place] [address] 06-12-2023 14:51-0500 Body weight 69.[address] Luiz Avery Work Phone: 2(911)288-079160 [place] [address] 05-16-2023 12:54-0500 Body mass index (BMI) [Ratio] 26.9 kg/m2 Dr. Luiz Avery Work Phone: 8(928)999-885660 [place] [address] 05-16-2023 12:54-0500 Body weight 68.[address] Luiz Avery Work Phone: 3(375)628-267860 [place] [address] 05-16-2023 12:54-0500 Diastolic blood pressure 70 mm[Hg] Dr. Luiz Avery Work Phone: 7(455)960-814460 [place] [address] 05-16-2023 12:54-0500 Heart rate 98 /min Dr. Luiz Avery Work Phone: 5(864)230-012260 [place] [address] 05-16-2023 12:54-0500 Respiratory rate 18 /min Dr. Luiz Avery Work Phone: 4(016)954-721560 [place] [address] 05-16-2023 12:54-0500 Systolic blood pressure 109 mm[Hg] Dr. Luiz Avery Work Phone: 9(285)844-685560 [place] [address] 05-01-2023 12:47-0500 Body height 160.[address] Luiz Avery Work Phone: 6(498)161-562560 [place] [address] 05-01-2023 10:28-0500 Body mass index (BMI) [Ratio] 27.4 kg/m2 Dr. Luiz Avery Work Phone: 6(911)595-203460 [place] [address] 05-01-2023 10:28-0500 Body weight 70.[address] Luiz Avery Work Phone: 8(060)985-269260 [place] [address] 05-01-2023 10:28-0500 Diastolic blood pressure 74 mm[Hg] Dr. Luiz Avery Work Phone: [facility] 05-01-2023 10:28-0500 Heart rate 100 /min Dr. Luiz Avery Work Phone: [facility] 05-01-2023 10:28-0500 Respiratory rate 22 /min Dr. Luiz Avery Work Phone: [facility] 05-01-2023 10:28-0500 SaO2% (BldA) [Mass fraction] 95 % Dr. Luiz Avery Work Phone: [facility] 05-01-2023 10:28-0500 Systolic blood pressure 111 mm[Hg] Dr. Luiz Avery Work Phone: 6(041)575-842598 [place] [address] 04-04-2023 07:56-0500 Body weight 69.4 kg Amalia Avery MD Work Phone: [facility] 04-04-2023 07:56-0500 Diastolic blood pressure 70 mm[Hg] Amalia Avery MD Work Phone: [facility] 04-04-2023 07:56-0500 Heart rate 93 /min Amalia Avery MD Work Phone: [facility] 04-04-2023 07:56-0500 Respiratory rate 16 /min Amalia Avery MD Work Phone: [facility] 04-04-2023 07:56-0500 Systolic blood pressure 102 mm[Hg] Amalia Avery MD Work Phone: [facility] 03-19-2023 15:33-0500 SaO2% (BldA) [Mass fraction] 97 % Dr. Luiz Avery Work Phone: [facility] 03-19-2023 14:00-0500 Body temperature 97.6 [degF] Dr. Luiz Avery Work Phone: 3(552)305-356198 [place] [address] 03-19-2023 14:00-0500 Diastolic blood pressure 58 mm[Hg] Dr. Luiz Avery Work Phone: 7(210)719-689298 [place] [address] 03-19-2023 14:00-0500 Heart rate 97 /min Dr. Luiz Avery Work Phone: 0(010)647-421760 [place] [address] 03-19-2023 14:00-0500 Respiratory rate 16 /min Dr. Luiz Avery Work Phone: 3(662)629-596960 [place] [address] 03-19-2023 14:00-0500 Systolic blood pressure 96 mm[Hg] Dr. Luiz Avery Work Phone: 0(132)845-264960 [place] [address] 03-19-2023 06:00-0500 Body mass index (BMI) [Ratio] 27.2 kg/m2 Dr. Luiz Avery Work Phone: 0(637)120-021860 [place] [address] 03-19-2023 06:00-0500 Body weight 69.[address] Luiz Avery Work Phone: 6(952)483-993960 [place] [address] 03-18-2023 09:24-0500 Inhaled oxygen flow rate 0 L/min Dr. Luiz Avery Work Phone: 8(498)933-988360 [place] [address] 03-17-2023 14:33-0500 Body height 160.[address] Luiz Avery Work Phone: 4(728)026-773960 [place] [address] 03-17-2023 08:00-0500 Body temperature 97.7 [degF] Dr. Luiz Avery Work Phone: 5(450)503-629760 [place] [address] 03-17-2023 08:00-0500 Diastolic blood pressure 67 mm[Hg] Dr. Luiz Avery Work Phone: 9(952)272-445460 [place] [address] 03-17-2023 08:00-0500 Heart rate 81 /min Dr. Luiz Avery Work Phone: 3(637)614-236960 [place] [address] 03-17-2023 08:00-0500 Inhaled oxygen flow rate 2 L/min Dr. Luiz Avery Work Phone: 5(261)492-010060 [place] [address] 03-17-2023 08:00-0500 Respiratory rate 18 /min Dr. Luiz Avery Work Phone: 0(499)400-956560 [place] [address] 03-17-2023 08:00-0500 SaO2% (BldA) [Mass fraction] 100 % Dr. Luiz Avery Work Phone: 8(224)265-569360 [place] [address] 03-17-2023 08:00-0500 Systolic blood pressure 103 mm[Hg] Dr. Luiz Avery Work Phone: 7(935)514-185660 [place] [address] 03-17-2023 06:00-0500 Body mass index (BMI) [Ratio] 27.3 kg/m2 Dr. Luiz vAery Work Phone: 8(636)907-009060 [place] [address] 03-17-2023 06:00-0500 Body weight [address] Luiz Avery Work Phone: 5(113)897-416860 [place] [address] 03-16-2023 21:56-0500 Body height 160.[address] Luiz Avery Work Phone: 4(072)785-730060 [place] [address] 03-16-2023 20:00-0500 Diastolic blood pressure 65 mm[Hg] Dr. Luiz Avery Work Phone: 0(570)811-563060 [place] [address] 03-16-2023 20:00-0500 Heart rate 89 /min Dr. Luiz Avery Work Phone: 4(807)780-046960 [place] [address] 03-16-2023 20:00-0500 Respiratory rate 20 /min Dr. Luiz Avery Work Phone: 1(240)961-354360 [place] [address] 03-16-2023 20:00-0500 SaO2% (BldA) [Mass fraction] 93 % Dr. Luiz Avery Work Phone: 2(605)930-479260 [place] [address] 03-16-2023 20:00-0500 Systolic blood pressure 115 mm[Hg] Dr. Luiz Avery Work Phone: 2(104)743-878760 [place] [address] 03-16-2023 12:43-0500 Body height 160.[address] Luiz Avery Work Phone: 6(523)193-959260 [place] [address] 03-16-2023 12:43-0500 Body mass index (BMI) [Ratio] 27.1 kg/m2 Dr. Luiz Avery Work Phone: [facility] 03-16-2023 12:43-0500 Body temperature 97.8 [degF] Dr. Luiz Avery Work Phone: 1(238)369-415698 [place] [address] 03-16-2023 12:43-0500 Body weight 69.[address] Luiz Avery Work Phone: 3(155)390-689360 [place] [address] 03-16-2023 11:48-0500 Body weight 70.94 kg Amalia Avery MD Work Phone: [facility] 03-16-2023 11:48-0500 Diastolic blood pressure 70 mm[Hg] Amalia Avrey MD Work Phone: 2(324)748-701704 [place] [address] 03-16-2023 11:48-0500 Heart rate 66 /min Amalia Avery MD Work Phone: 8(706)873-142404 [place] [address] 03-16-2023 11:48-0500 Respiratory rate 16 /min Amalia Avery MD Work Phone: 8(838)099-038460 [place] [address] 03-16-2023 11:48-0500 SaO2% (BldA) [Mass fraction] 98 % Amalia Avery MD Work Phone: 9(881)799-870060 [place] [address] 03-16-2023 11:48-0500 Systolic blood pressure 110 mm[Hg] Amalia Avery MD Work Phone: 5(497)037-777860 [place] [address] 03-14-2023 19:00-0500 Diastolic blood pressure 71 mm[Hg] Dr. Luiz Avery Work Phone: 9(100)121-480198 [place] [address] 03-14-2023 19:00-0500 Heart rate 21 /min Dr. Luiz Avery Work Phone: 7(618)363-982298 [place] [address] 03-14-2023 19:00-0500 Respiratory rate 16 /min Dr. Luiz Avery Work Phone: [facility] 03-14-2023 19:00-0500 SaO2% (BldA) [Mass fraction] 95 % Dr. Luiz Avery Work Phone: 4(134)123-859398 [place] [address] 03-14-2023 19:00-0500 Systolic blood pressure 108 mm[Hg] Dr. Luiz Avery Work Phone: 2(651)844-911498 [place] [address] 03-14-2023 14:56-0500 Body height 160.[address] Luiz Avery Work Phone: 2(133)429-161960 [place] [address] 03-14-2023 14:56-0500 Body temperature 97.4 [degF] Dr. Luiz Avery Work Phone: 8(128)487-189460 [place] [address] 02-09-2023 13:03-0400 Body height 160.[address] Luiz Avery Work Phone: 4(474)879-202760 [place] [address] 02-09-2023 13:03-0400 Body mass index (BMI) [Ratio] 28.3 kg/m2 Dr. Luiz Avery Work Phone: 0(266)509-934660 [place] [address] 02-09-2023 13:03-0400 Body weight 72.[address] Luiz Avery Work Phone: 1(178)239-795460 [place] [address] 02-09-2023 13:03-0400 Diastolic blood pressure 70 mm[Hg] Dr. Luiz Avery Work Phone: 3(142)697-719398 [place] [address] 02-09-2023 13:03-0400 Heart rate 111 /min Dr. Luiz Avery Work Phone: 3(368)688-168998 [place] [address] 02-09-2023 13:03-0400 Respiratory rate 18 /min Dr. Luiz Avery Work Phone: 7(576)158-939398 [place] [address] 02-09-2023 13:03-0400 SaO2% (BldA) [Mass fraction] 98 % Dr. Luiz Avery Work Phone: 6(888)831-443998 [place] [address] 02-09-2023 13:03-0400 Systolic blood pressure 103 mm[Hg] Dr. Luiz Avery Work Phone: 6(826)507-176559 [address] 01-09-2023 09:51-0400 Body mass index (BMI) [Ratio] 28.73 kg/m2 Janel Auguste CNP Work Phone: [facility] 01-09-2023 09:51-0400 Body weight 73.57 kg Janel Mayberry PROFESSOR OF CHEMICAL ENGINEERING - BRANCH OFFICE MANAGER Work Phone: [facility] 01-09-2023 09:51-0400 Diastolic blood pressure 53 mm[Hg] Janel Mayberry PROFESSOR OF CHEMICAL ENGINEERING - BRANCH OFFICE MANAGER Work Phone: [facility] 01-09-2023 09:51-0400 Heart rate 102 /min Janel Mayberry PROFESSOR OF CHEMICAL ENGINEERING - BRANCH OFFICE MANAGER Work Phone: [facility] 01-09-2023 09:51-0400 Systolic blood pressure 118 mm[Hg] Janel Mayberry PROFESSOR OF CHEMICAL ENGINEERING - BRANCH OFFICE MANAGER Work Phone: [facility] 12-30-2022 13:24-0400 Diastolic blood pressure 49 mm[Hg] Danielle Lai MD Work Phone: [facility] 12-30-2022 13:24-0400 Systolic blood pressure 94 mm[Hg] Danielle Lai MD Work Phone: [facility] 12-30-2022 13:00-0400 Heart rate 80 /min Danielle Lai MD Work Phone: [facility] 12-30-2022 11:00-0400 SaO2% (BldA) [Mass fraction] 100 % Danielle Lai MD Work Phone: [facility] 12-30-2022 08:40-0400 Body temperature 97.39 [degF] Danielle Lai MD Work Phone: [facility] 12-30-2022 08:40-0400 Respiratory rate 19 /min Danielle Lai MD Work Phone: [facility] 12-30-2022 05:00-0400 Body mass index (BMI) [Ratio] 28.91 kg/m2 Danielle Lai MD Work Phone: [facility] 12-30-2022 05:00-0400 Body weight 74.03 kg Danielle Lai MD Work Phone: [facility] 12-18-2022 14:46-0400 Body height 160 cm Danielle Lai MD Work Phone: [facility] 12-15-2022 00:33-0400 SaO2% (BldA) [Mass fraction] 98.5 % Danielle Lai MD Work Phone: [facility] 12-14-2022 15:58-0400 SaO2% (BldA) [Mass fraction] 98.7 % Danielle Lai MD Work Phone: [facility] 12-14-2022 12:44-0400 SaO2% (BldA) [Mass fraction] 99.0 % Danielle Lai MD Work Phone: [facility] 12-11-2022 18:15-0400 Diastolic blood pressure 77 mm[Hg] Dr. Luiz Avery Work Phone: [facility] 12-11-2022 18:15-0400 Heart rate 62 /min Dr. Luiz Avery Work Phone: [facility] 12-11-2022 18:15-0400 Respiratory rate 15 /min Dr. Luiz Avery Work Phone: [facility] 12-11-2022 18:15-0400 SaO2% (BldA) [Mass fraction] 98 % Dr. Luiz Avery Work Phone: [facility] 12-11-2022 18:15-0400 Systolic blood pressure 138 mm[Hg] Dr. Luiz Avery Work Phone: [facility] 12-11-2022 13:47-0400 Body mass index (BMI) [Ratio] 30.2 kg/m2 Dr. Luiz Avery Work Phone: [facility] 12-11-2022 13:47-0400 Body temperature 96.5 [degF] Dr. Luiz Avery Work Phone: [facility] 12-11-2022 13:47-0400 Body weight 77.[address] Luiz Avery Work Phone: [facility] 11-22-2022 10:13-0400 Body height 160.02 cm SENIOR MOBILE DEVELOPER-C Miles De La Torre SENIOR MOBILE DEVELOPER Work Phone: [facility] 11-22-2022 10:13-0400 Body weight 77.56 kg SENIOR MOBILE DEVELOPER-C Miles De La Torre SENIOR MOBILE DEVELOPER Work Phone: [facility] 11-21-2022 08:04-0400 Body mass index (BMI) [Ratio] 30.2 kg/m2 SENIOR MOBILE DEVELOPER-C Miles De La Torre SENIOR MOBILE DEVELOPER Work Phone: [facility] 11-14-2022 10:25-0400 Body mass index (BMI) [Ratio] 30.2 kg/m2 SENIOR MOBILE DEVELOPER-C Miles De La Torre SENIOR MOBILE DEVELOPER Work Phone: [facility] 11-14-2022 10:25-0400 Body weight 77.56 kg SENIOR MOBILE DEVELOPER-C Miles De La Torre SENIOR MOBILE DEVELOPER Work Phone: [facility] 11-14-2022 10:25-0400 Diastolic blood pressure 66 mm[Hg] SENIOR MOBILE DEVELOPER-C Miles De La Torre SENIOR MOBILE DEVELOPER Work Phone: [facility] 11-14-2022 10:25-0400 Heart rate 66 /min SENIOR MOBILE DEVELOPER-C Miles De La Torre SENIOR MOBILE DEVELOPER Work Phone: [facility] 11-14-2022 10:25-0400 Respiratory rate 18 /min SENIOR MOBILE DEVELOPER-C Miles De La Torre SENIOR MOBILE DEVELOPER Work Phone: [facility] 11-14-2022 10:25-0400 SaO2% (BldA) [Mass fraction] 92 % SENIOR MOBILE DEVELOPER-C Miles De La Torre SENIOR MOBILE DEVELOPER Work Phone: [facility] 11-14-2022 10:25-0400 Systolic blood pressure 115 mm[Hg] SENIOR MOBILE DEVELOPER-C Miles De La Torre SENIOR MOBILE DEVELOPER Work Phone: [facility] 11-14-2022 08:43-0400 Body weight 77.84 kg Silvia Hunter APRN.BRANCH OFFICE MANAGER Work Phone: [facility] 11-14-2022 08:43-0400 Diastolic blood pressure 66 mm[Hg] Silvia Podlogar PROFESSOR OF CHEMICAL ENGINEERING.BRANCH OFFICE MANAGER Work Phone: [facility] 11-14-2022 08:43-0400 Heart rate 57 /min Silvia Podlogar PROFESSOR OF CHEMICAL ENGINEERING.BRANCH OFFICE MANAGER Work Phone: [facility] 11-14-2022 08:43-0400 Respiratory rate 18 /min Silvia Podlogar PROFESSOR OF CHEMICAL ENGINEERING.BRANCH OFFICE MANAGER Work Phone: [facility] 11-14-2022 08:43-0400 SaO2% (BldA) [Mass fraction] 97 % Silvia Podlogar PROFESSOR OF CHEMICAL ENGINEERING.BRANCH OFFICE MANAGER Work Phone: [facility] 11-14-2022 08:43-0400 Systolic blood pressure 106 mm[Hg] Silvia Podlogar PROFESSOR OF CHEMICAL ENGINEERING.BRANCH OFFICE MANAGER Work Phone: [facility] 09-19-2022 13:14-0400 Body mass index (BMI) [Ratio] 30.4 kg/m2 SENIOR MOBILE DEVELOPER-C Miles De La Torre SENIOR MOBILE DEVELOPER Work Phone: [facility] 09-19-2022 13:14-0400 Body weight 78.01 kg SENIOR MOBILE DEVELOPER-C Miles De La Torre SENIOR MOBILE DEVELOPER Work Phone: [facility] 09-19-2022 13:14-0400 Diastolic blood pressure 70 mm[Hg] SENIOR MOBILE DEVELOPER-Cayetano De La Torre SENIOR MOBILE DEVELOPER Work Phone: [facility] 09-19-2022 13:14-0400 Heart rate 64 /min SENIOR MOBILE DEVELOPER-Cayetano De La Torre SENIOR MOBILE DEVELOPER Work Phone: [facility] 09-19-2022 13:14-0400 Respiratory rate 16 /min SENIOR MOBILE DEVELOPER-Cayetano De La Torre SENIOR MOBILE DEVELOPER Work Phone: [facility] 09-19-2022 13:14-0400 Systolic blood pressure 122 mm[Hg] SENIOR MOBILE DEVELOPERJesús De La Torre SENIOR MOBILE DEVELOPER Work Phone: [facility] 05-17-2022 08:01-0500 Body temperature 97.5 [degF] Amalia Avery MD Work Phone: [facility] 05-17-2022 08:01-0500 Body weight 75.75 kg Amalia Avery MD Work Phone: [facility] 05-17-2022 08:01-0500 Diastolic blood pressure 78 mm[Hg] Amalia Avery MD Work Phone: [facility] 05-17-2022 08:01-0500 Heart rate 74 /min Amalia Avery MD Work Phone: [facility] 05-17-2022 08:01-0500 Respiratory rate 20 /min Amalia Avery MD Work Phone: [facility] 05-17-2022 08:01-0500 SaO2% (BldA) [Mass fraction] 98 % Amalia Avery MD Work Phone: [facility] 05-17-2022 08:01-0500 Systolic blood pressure 120 mm[Hg] Amalia Avery MD Work Phone: [facility] 05-11-2022 12:42-0500 Body temperature 97.81 [degF] Laura Athy PA-C Work Phone: [facility] 05-11-2022 12:42-0500 Body weight 76.66 kg Laura Athy PA-C Work Phone: [facility] 05-11-2022 12:42-0500 Diastolic blood pressure 68 mm[Hg] Laura Athy PA-C Work Phone: [facility] 05-11-2022 12:42-0500 Heart rate 61 /min Laura Athy PA-C Work Phone: [facility] 05-11-2022 12:42-0500 Respiratory rate 18 /min Laura Athy PA-C Work Phone: [facility] 05-11-2022 12:42-0500 SaO2% (BldA) [Mass fraction] 97 % Laura Athy PA-C Work Phone: [facility] 05-11-2022 12:42-0500 Systolic blood pressure 124 mm[Hg] Laura Holbrook PA-C Work Phone: [facility] 05-05-2022 14:33-0500 Body height 160.02 cm SENIOR MOBILE DEVELOPER-C Miles De La Torre SENIOR MOBILE DEVELOPER Work Phone: [facility] 05-05-2022 14:29-0500 Body mass index (BMI) [Ratio] 30.1 kg/m2 SENIOR MOBILE DEVELOPER-C Miles De La Torre SENIOR MOBILE DEVELOPER Work Phone: [facility] 05-05-2022 14:29-0500 Body weight 77.11 kg SENIOR MOBILE DEVELOPER-C Miles De La Torre SENIOR MOBILE DEVELOPER Work Phone: [facility] 05-05-2022 14:29-0500 Diastolic blood pressure 72 mm[Hg] SENIOR MOBILE DEVELOPER-C Miles De La Torre SENIOR MOBILE DEVELOPER Work Phone: [facility] 05-05-2022 14:29-0500 Heart rate 71 /min SENIOR MOBILE DEVELOPER-C Miles De La Torre SENIOR MOBILE DEVELOPER Work Phone: [facility] 05-05-2022 14:29-0500 Respiratory rate 18 /min SENIOR MOBILE DEVELOPER-C Miles De La Torre SENIOR MOBILE DEVELOPER Work Phone: [facility] 05-05-2022 14:29-0500 SaO2% (BldA) [Mass fraction] 95 % SENIOR MOBILE DEVELOPER-C Miles De La Torre SENIOR MOBILE DEVELOPER Work Phone: [facility] 05-05-2022 14:29-0500 Systolic blood pressure 131 mm[Hg] SENIOR MOBILE DEVELOPER-C Miles De La Torre SENIOR MOBILE DEVELOPER Work Phone: [facility] 03-21-2022 15:30-0500 Body mass index (BMI) [Ratio] 30.1 kg/m2 SENIOR MOBILE DEVELOPER-C Miles De La Torre SENIOR MOBILE DEVELOPER Work Phone: [facility] 03-21-2022 15:30-0500 Body weight 77.11 kg SENIOR MOBILE DEVELOPER-C Miles De La Torre SENIOR MOBILE DEVELOPER Work Phone: [facility] 03-21-2022 15:30-0500 Diastolic blood pressure 62 mm[Hg] SENIOR MOBILE DEVELOPER-C Miles De La Torre SENIOR MOBILE DEVELOPER Work Phone: [facility] 03-21-2022 15:30-0500 Heart rate 67 /min SENIOR MOBILE DEVELOPER-C Miles De La Torre SENIOR MOBILE DEVELOPER Work Phone: [facility] 03-21-2022 15:30-0500 Respiratory rate 16 /min SENIOR MOBILE DEVELOPER-C Miles De La Torre SENIOR MOBILE DEVELOPER Work Phone: [facility] 03-21-2022 15:30-0500 Systolic blood pressure 115 mm[Hg] SENIOR MOBILE DEVELOPER-C Miles De La Torre SENIOR MOBILE DEVELOPER Work Phone: [facility] 02-14-2022 13:57-0400 Body mass index (BMI) [Ratio] 29.7 kg/m2 SENIOR MOBILE DEVELOPER-C Miles De La Torre SENIOR MOBILE DEVELOPER Work Phone: [facility] 02-14-2022 13:57-0400 Body weight 76.2 kg SENIOR MOBILE DEVELOPER-C Miles De La Torre SENIOR MOBILE DEVELOPER Work Phone: [facility] 02-14-2022 13:57-0400 Diastolic blood pressure 72 mm[Hg] SENIOR MOBILE DEVELOPER-C Miles De La Torre SENIOR MOBILE DEVELOPER Work Phone: [facility] 02-14-2022 13:57-0400 Heart rate 63 /min SENIOR MOBILE DEVELOPER-C Miles De La Torre SENIOR MOBILE DEVELOPER Work Phone: [facility] 02-14-2022 13:57-0400 Respiratory rate 16 /min SENIOR MOBILE DEVELOPER-C Miles De La Torre SENIOR MOBILE DEVELOPER Work Phone: [facility] 02-14-2022 13:57-0400 Systolic blood pressure 125 mm[Hg] SENIOR MOBILE DEVELOPER-C Miles De La Torre SENIOR MOBILE DEVELOPER Work Phone: [facility] 11-16-2021 08:35-0400 Body weight 75.75 kg Silvia Podlogar PROFESSOR OF CHEMICAL ENGINEERING.BRANCH OFFICE MANAGER Work Phone: [facility] 11-16-2021 08:35-0400 Diastolic blood pressure 66 mm[Hg] Silvia Podlogar PROFESSOR OF CHEMICAL ENGINEERING.BRANCH OFFICE MANAGER Work Phone: [facility] 11-16-2021 08:35-0400 Heart rate 69 /min Silvia Podlogar PROFESSOR OF CHEMICAL ENGINEERING.BRANCH OFFICE MANAGER Work Phone: [facility] 11-16-2021 08:35-0400 Respiratory rate 18 /min Silvia Podlogar PROFESSOR OF CHEMICAL ENGINEERING.BRANCH OFFICE MANAGER Work Phone: [facility] 11-16-2021 08:35-0400 SaO2% (BldA) [Mass fraction] 96 % Silvia Podlogar PROFESSOR OF CHEMICAL ENGINEERING.BRANCH OFFICE MANAGER Work Phone: [facility] 11-16-2021 08:35-0400 Systolic blood pressure 110 mm[Hg] Silvia Podlogar PROFESSOR OF CHEMICAL ENGINEERING.BRANCH OFFICE MANAGER Work Phone: [facility] Encounters Encounter Date Encounter Type Care Provider Facility Start: 02-03-2025 End: 02-03-[address] Luiz Avery MD Work Phone: -Laboratory Start: 02-03-2025 End: 02-03-[address] Christie Guzman DO -Laboratory Work Phone: Start: 02-03-2025 End: 02-03-2025 ambulatory Christie Gumzan Facility:[facility] Start: 01-20-2025 End: 01-20-[address] Luiz Avery MD Work Phone: -[facility] Start: 01-20-2025 End: 01-20-[address] Derek Brumfield MD -[facility] Work Phone: Start: 01-19-2025 End: 01-19-2025 Patient encounter procedure Heather Canseco -[facility] Work Phone: Start: 01-19-2025 End: 01-19-[address] Luiz Avery MD Work Phone: -[facility] Start: 01-07-2025 End: 01-07-[address] Luiz Avery MD Work Phone: -Laboratory Start: 01-07-2025 End: 01-07-[address] Christie Guzman DO -Laboratory Work Phone: Start: 01-07-2025 End: 01-07-2025 ambulatory Christie Guzman Facility:[facility] Start: 12-24-2024 End: 12-24-2024 Subsequent hospital visit by physician Xr [facility] Work Phone: Radiology Comment on above: Acute cough [R05.1] Start: 12-24-2024 End: 12-24-2024 ambulatory SILVIA PODLOGVAL Facility:[facility] Start: 12-24-2024 End: 12-24-2024 Patient encounter procedure Silvia Podlogval PROFESSOR OF CHEMICAL ENGINEERING.BRANCH OFFICE MANAGER Work Phone: [facility] Comment on above: Acute cough (Primary Dx); Postnasal drip Start: 12-04-2024 End: 12-04-[address] Luiz Avery MD Work Phone: -[facility] Start: 12-04-2024 End: 12-04-[address] Derek Brumfield MD -[facility] Work Phone: Start: 12-04-2024 End: 12-04-2024 ambulatory Luiz Avery Facility:[facility] Start: 12-01-2024 End: 12-01-2024 Patient encounter procedure Silvia Podlogval PROFESSOR OF CHEMICAL ENGINEERING.BRANCH OFFICE MANAGER Work Phone: [facility] Comment on above: Other congestive hea rt failure (HCC) (Primary Dx); Iron deficiency anemia, unspecified iron deficiency anemia type; Atrial fibrillation, unspecified type (HCC); watermaster (current) use of anticoagulants; watermaster current use of diuretic; CKD (chronic kidney disease) stage 4, GFR 15-29 ml/min (HCC); Ischemic cardiomyopathy; Presence of cardiac pacemaker; Dizziness and giddiness Start: 12-01-2024 End: 12-01-2024 ambulatory AMALIA AVERY Facility:[facility] Start: 11-21-2024 End: 11-21-[address] Luiz Avery MD Work Phone: -Radiology [facility] Start: 11-21-2024 End: 11-21-2024 Patient encounter procedure Kinga Eubanks PA -Radiology [facility] Work Phone: Start: 11-21-2024 End: 11-21-2024 ambulatory Luiz Avery Facility:[facility] Start: 11-08-2024 End: 11-08-[address] Luiz Avery MD Work Phone: -[facility] Start: 11-08-2024 End: 11-08-[address] Derek Brumfield MD -[facility] Work Phone: Start: 11-04-2024 End: 11-04-2024 Patient encounter procedure Rigoberto Morton DO -[facility] Work Phone: Start: 11-04-2024 End: 11-04-[address] Luiz Avery MD Work Phone: [facility] Start: 11-04-2024 End: 11-04-2024 ambulatory Rigoberto Morton Facility:[facility] Start: 10-29-2024 End: 10-29-2024 Patient encounter procedure Bart Gonzalez NP-[place] -[facility] Work Phone: Start: 10-29-2024 End: 10-29-[address] Luiz Avery MD Work Phone: -[facility] Start: 10-15-2024 End: 10-15-2024 ambulatory Jose Juan Lewis RN Cryptologic Linguist Management Comment on above: Bi-Weekly Outreach ( Recurring) for Chronic Disease Management Start: 10-02-2024 End: 10-02-2024 ambulatory Jose Juan Lewis RN Cryptologic Linguist Management Comment on above: Bi-Weekly Outreach ( Recurring) for Chronic Disease Management Outer Diameter Grinder - O ther (Chart review and outreach for CHF GDMT Care Path) Start: 10-01-2024 End: 10-01-[address] Luiz Avery MD Work Phone: [facility] Work Phone: Start: 10-01-2024 End: 10-01-[address] Christie Guzman DO -Laboratory Work Phone: Start: 10-01-2024 End: 10-01-2024 Patient encounter procedure Bart Gonzalez SENIOR MOBILE DEVELOPER-C -[facility] Work Phone: Start: 10-01-2024 End: 10-01-[address] Luiz Avery MD Work Phone: [facility] Work Phone: Start: 10-01-2024 End: 10-01-2024 ambulatory Christie Guzman Facility:[facility] Start: 09-05-2024 End: 09-05-2024 ambulatory Jose Juan Lewis RN Cryptologic Linguist Management Comment on above: Bi-Weekly Outreach ( Recurring) for Chronic Disease Management Start: 08-08-2024 End: 08-08-2024 ambulatory Derek Brumfield Facility:[facility] Start: 08-08-2024 End: 08-08-[address] Derek Brumfield MD -[facility] Work Phone: Start: 08-06-2024 End: 08-06-2024 ambulatory JoseJ uan Lewis RN Cryptologic Linguist Management Comment on above: Bi-Weekly Outreach ( Recurring) for Chronic Disease Management Start: 07-30-2024 End: 07-30-[address] Luiz Avery MD Work Phone: [facility] Work Phone: Start: 07-30-2024 End: 07-30-2024 Patient encounter procedure Kinga Eubanks PA -Laboratory Work Phone: Start: 07-30-2024 End: 07-30-2024 ambulatory Luiz Avery Facility:[facility] Start: 07-21-2024 End: 07-21-2024 ambulatory Jose Juan Lewis RN Cryptologic Linguist Management Comment on above: Bi-Weekly Outreach ( Recurring) for Chronic Disease Management Start: 07-07-2024 End: 07-07-2024 ambulatory Jose Juan Lewis RN Cryptologic Linguist Management Comment on above: Bi-Weekly Outreach ( Recurring) for Chronic Disease Management Start: 07-04-2024 End: 07-04-2024 Patient encounter procedure Silvia Hunter PROFESSOR OF CHEMICAL ENGINEERING.BRANCH OFFICE MANAGER Work Phone: [facility] [place] Comment on above: Benign hypertension (Primary Dx); Fibrosis of lung (HCC); Complete heart block (HCC); Stage 3b chronic kidney disease (HCC); GERD without esophagitis; Hyperlipidemia LDL goal <100; Chronic congestive heart failure, unspecified heart failure type (HCC) Start: 07-04-2024 End: 07-04-2024 ambulatory AMALIA AVERY Facility:[facility] Start: 06-26-2024 End: 06-26-[address] Luiz Avery MD Work Phone: [facility] Work Phone: Start: 06-26-2024 End: 06-26-[address] Christie GOMESLaboratory, Phy Office 3rd Arr Start: 06-26-2024 End: 06-26-2024 ambulatory Christie Guzman Facility:[facility] Start: 06-21-2024 End: 06-21-[address] Christie Fountain Work Phone: Start: 06-21-2024 End: 06-21-2024 ambulatory Christie Guzman Facility:[facility] Start: 06-19-2024 End: 06-19-2024 ambulatory Ward Morales RN Work Phone: Cryptologic Linguist Management Comment on above: Initial enrollment o zelda for Chronic Disease Management Start: 06-02-2024 End: 06-02-2024 ambulatory [facility] Start: 06-02-2024 End: 06-02-2024 Patient encounter procedure [facility] Comment on above: Population Health Na vigation Outreach ([employer] High Risk - Attempt 2) Start: 05-27-2024 End: 05-27-2024 ambulatory [facility] Start: 05-27-2024 End: 05-27-2024 Patient encounter procedure [facility] Comment on above: Population Health Na vigation Outreach ([employer] High Risk - Attempt 1//) Start: 05-19-2024 End: 05-19-2024 Patient encounter procedure Rigoberto Morton [facility] Work Phone: Start: 05-19-2024 End: 05-19-2024 ambulatory Luiz Avery Facility:[facility] Start: 05-16-2024 End: 05-16-2024 Patient encounter procedure Amalia Avery MD Work Phone: [facility] [place] Comment on above: Bacterial pneumonia (Primary Dx); Oral mucosal lesion; Unsteady gait when walking Start: 05-16-2024 End: 05-16-2024 ambulatory AMALIA AVERY Facility:[facility] Start: 05-10-2024 End: 05-10-2024 Subsequent hospital visit by physician Xr [facility] [place] Work Phone: Radiology Comment on above: Acute cough [R05.1] Start: 05-10-2024 End: 05-10-2024 ambulatory AMALIA AVERY Facility:[facility] Start: 05-10-2024 End: 05-10-2024 Patient encounter procedure Ari Reinoso APRN.BRANCH OFFICE MANAGER Work Phone: [facility] Comment on above: Acute cough (Primary Dx); Community acquired pneumonia, unspecified laterality Start: 05-09-2024 End: 05-09-2024 ambulatory Derek Brumfield Facility:[facility] Start: 05-09-2024 End: 05-09-[address] Derek Brumfield MD -[facility] Work Phone: Start: 01-04-2024 End: 01-04-2024 Patient encounter procedure Silvia Hunter APRN.BRANCH OFFICE MANAGER Work Phone: [facility] Comment on above: Benign hypertension (Primary Dx); GERD without esophagitis; Iron deficiency anemia, unspecified iron deficiency anemia type; Stage 3b chronic kidney disease (HCC); Ischemic cardiomyopathy; Complete heart block (HCC); Normally functioning cardiac pacemaker present; Chronic congestive heart failure, unspecified heart failure type (HCC); Hyperlipidemia LDL goal <100; Encounter for immunization Start: 10-02-2023 Telephone encounter Luiz Avery MD Work Phone: [phone] [place] [address] Start: 10-01-2023 End: 10-01-2023 Patient encounter procedure Amalia Avery MD Work Phone: [facility] Comment on above: Gastrointestinal hem orrhage associated with duodenal ulcer (Primary Dx); GERD without esophagitis; Iron deficiency anemia, unspecified iron deficiency anemia type; Benign hypertension; Stage 3b chronic kidney disease (HCC); Ischemic cardiomyopathy; Complete heart block (HCC); Normally functioning cardiac pacemaker present; Chronic congestive heart failure, unspecified heart failure type (HCC); Hyperlipidemia LDL goal <100 Start: 08-31-2023 End: 08-31-[address] Luiz Avery Work Phone: [facility] Work Phone: Start: 08-31-2023 End: 08-31-[address] Luiz Avery Work Phone: [facility] Work Phone: Start: 08-30-2023 Telephone encounter Luiz Avery MD Work Phone: [facility] Comment on above: Results Start: 08-10-2023 End: 08-10-[address] Luiz Avery Work Phone: [facility] Work Phone: Start: 08-08-2023 Telephone encounter Luiz Avery MD Work Phone: [facility] Comment on above: Results Start: 08-07-2023 End: 08-07-2023 Subsequent hospital visit by physician Xr [facility] Work Phone: Radiology Comment on above: Acute on chronic sys tolic heart failure (HCC) [I50.23] Start: 08-07-2023 End: 08-07-2023 Patient encounter procedure Amalia Avery MD Work Phone: [facility] Comment on above: Acute on chronic sys tolic heart failure (HCC) (Primary Dx); Shortness of breath at rest; Weight loss; Gastrointestinal hemorrhage associated with duodenal ulcer; Iron deficiency anemia, unspecified iron deficiency anemia type; Stage 3a chronic kidney disease (HCC); Stage 3b chronic kidney disease (HCC) Start: 08-06-2023 Telephone encounter Luiz Avery MD Work Phone: [facility] Comment on above: Orders Start: 08-04-2023 End: 08-04-[address] Luiz Avery Work Phone: [facility] Work Phone: Start: 08-01-2023 Telephone encounter Luiz Avery MD Work Phone: [facility] Comment on above: Patient Question Start: 07-30-2023 Telephone encounter Luiz Avery MD Work Phone: [facility] Comment on above: Patient Question Start: 07-19-2023 End: 07-19-[address] Luiz Avery Work Phone: [facility] Work Phone: Start: 07-19-2023 End: 07-19-[address] Luiz Avery Work Phone: [facility]Labor[facility], Phy Office 3rd Flr Start: 07-13-2023 End: 07-13-[address] Luiz Avery Work Phone: [facility] Work Phone: Start: 07-11-2023 Telephone encounter Luiz Avery MD Work Phone: [facility] Comment on above: Appointment Start: 07-10-2023 End: 07-10-2023 Subsequent hospital visit by physician [facility] Work Phone: Radiology Comment on above: Shortness of breath at rest [R06.02] Start: 07-10-2023 Telephone encounter Luiz Avery MD Work Phone: [facility] Comment on above: Results Start: 07-09-2023 End: 07-09-2023 Patient encounter procedure Amalia Avery MD Work Phone: [facility] Comment on above: Gastrointestinal hem orrhage associated with duodenal ulcer (Primary Dx); Shortness of breath at rest; Anemia, unspecified type; Pallor; Acute on chronic systolic heart failure (HCC); Fibrosis of lung (HCC); Stage 3a chronic kidney disease (HCC) Start: 07-03-2023 Telephone encounter Luiz Avery MD Work Phone: [facility] Comment on above: [facility] update (Pt SOB/anemia 7.7 hgb) Start: 06-28-2023 Telephone encounter Luiz Avery MD Work Phone: [facility] Comment on above: Patient Update; [facility] Start: 06-27-2023 Telephone encounter Luiz Avery MD Work Phone: [facility] Start: 06-27-2023 End: 06-27-2023 Emergency department patient visit Dr. Luiz Avery Work Phone: [facility] Work Phone: Start: 06-27-2023 End: 06-27-2023 Dr. Luiz Avery Work Phone: [facility] Work Phone: Start: 06-27-2023 End: 06-27-2023 Patient encounter procedure Amalia Avery MD Work Phone: [facility] Comment on above: Shortness of breath at rest (Primary Dx); Pallor; Gastrointestinal hemorrhage associated with duodenal ulcer; Anemia, unspecified type; Acute on chronic systolic heart failure (HCC); Ischemic cardiomyopathy; Acute pulmonary edema (HCC) Start: 06-25-2023 Telephone encounter Luiz Avery MD Work Phone: [facility] Comment on above: Patient Update Start: 06-18-2023 ambulatory Kelly Hair LPN [facility] Start: 06-18-2023 Telephone encounter Luiz Avery MD Work Phone: [facility] Comment on above: Home Health Orders Transition Of Care Start: 06-17-2023 Non-patient / Non-visit Dr. Nohemy Avery Work Phone: [facility] Work Phone: Start: 06-17-2023 Dr. Luiz Avery Work Phone: [facility] Work Phone: Start: 06-16-2023 Non-patient / Non-visit Dr. Nohemy Avery Work Phone: [facility] Start: 06-16-2023 Dr. Luiz Avery Work Phone: [facility] Start: 06-16-2023 Non-patient / Non-visit Dr. Nohemy Avery Work Phone: [facility] Work Phone: Start: 06-16-2023 Dr. Luiz Avery Work Phone: [facility] Work Phone: Start: 06-15-2023 Non-patient / Non-visit Dr. Nohemy Avery Work Phone: [facility] Start: 06-15-2023 Dr. Luiz Avery Work Phone: [facility] Start: 06-15-2023 Non-patient / Non-visit Dr. Nohemy Avery Work Phone: [facility] Work Phone: Start: 06-15-2023 Dr. Luiz Avery Work Phone: [facility] Work Phone: Start: 06-14-2023 Non-patient / Non-visit Dr. Nohemy Avery Work Phone: [facility] Start: 06-14-2023 Dr. Luiz Avery Work Phone: [facility] Start: 06-14-2023 Non-patient / Non-visit Dr. Nohemy Avery Work Phone: [facility] Work Phone: Start: 06-14-2023 Dr. Luiz Avery Work Phone: [facility] Work Phone: Start: 06-13-2023 Non-patient / Non-visit Dr. Nohemy Avery Work Phone: [facility] Start: 06-13-2023 Dr. Luiz Avery Work Phone: [facility] Start: 06-13-2023 Non-patient / Non-visit Dr. Nohemy Avery Work Phone: [facility] Work Phone: Start: 06-13-2023 Dr. Luiz Avery Work Phone: [facility] Work Phone: Start: 06-12-2023 End: 06-17-2023 Dr[facility] Start: 06-12-2023 End: 06-17-2023 Evaluation and management of inpatient Dr. Luiz [facility] Work [facility] Start: 05-21-2023 End: [facility] Start: 05-16-2023 End: 05-16-[address] Luiz Avery Work Phone: [facility] Work Phone: Start: 05-16-2023 End: 05-16-2023 Dr[facility] Lu[facility] Work Phone: Start: 05-11-2023 End: 05-11-[address] [facility] Work Phone: Start: 05-11-2023 End: 05-11-2023 Dr. Luiz Avery Work Phone: [facility] Work Phone: Start: 05-01-2023 End: 05-01-[address] Luiz Avery Work Phone: [facility] Work Phone: Start: 05-01-2023 End: 05-01-[address] [facility] Start: 05-01-2023 End: 05-01-2023 Dr[facility] Start: 05-01-2023 End: 05-01-[address] Luiz Avery Work Phone: [facility] Work Phone: Start: 05-01-2023 End: 05-01-2023 Dr. Luiz Avery Work Phone: [facility] Work Phone: Start: 04-05-2023 Telephone encounter Luiz Avery MD Work Phone: [facility] Comment on above: Results Start: 04-04-2023 End: 04-04-2023 Patient encounter procedure Amalia Avery MD Work Phone: [facility] Comment on above: Acute on chronic con gestive heart failure, unspecified heart failure type (HCC) (Primary Dx); Orthopnea; Stage 3a chronic kidney disease (HCC); Hypokalemia Start: 03-29-2023 End: 03-29-[address] Luiz Avery Work Phone: [facility] Work Phone: Start: 03-29-2023 End: 03-29-2023 Dr. Luiz Avery Work Phone: [facility] Work Phone: Start: 03-19-2023 Non-patient / Non-visit Dr. Nohemy Avery Work Phone: [facility] Work Phone: Start: 03-19-2023 Dr. Luiz Avery Work Phone: [facility] Work Phone: Start: 03-18-2023 Non-patient / Non-visit Dr. Nohemy Avery Work Phone: [facility] Start: 03-18-2023 Dr. Luiz Avery Work Phone: [facility] Start: 03-18-2023 Non-patient / Non-visit Dr. Nohemy Avery Work Phone: [facility] Work Phone: Start: 03-18-2023 Dr. Luiz Avery Work Phone: [facility] Work Phone: Start: 03-17-2023 Non-patient / Non-visit Dr. Nohemy Avery Work Phone: [facility] Work Phone: Start: 03-17-2023 Dr. Luiz Avery Work Phone: [facility] Work Phone: Start: 03-17-2023 Non-patient / Non-visit Dr. Nohemy Avery Work Phone: [facility] Start: 03-17-2023 Dr. Luiz Avery Work Phone: [facility] Start: 03-16-2023 End: 03-19-2023 Evaluation and management of inpatient Dr. Luiz Avery Work Phone: [facility] Work Phone: Start: 03-16-2023 End: 03-19-2023 Dr. Luiz Avery Work Phone: [facility] Work Phone: Start: 03-16-2023 End: 03-16-2023 Patient encounter procedure Amalia Avery MD Work Phone: [facility] Comment on above: Acute on chronic con gestive heart failure, unspecified heart failure type (HCC) (Primary Dx) Start: 03-14-2023 End: 03-14-2023 Emergency department patient visit Dr. Luiz Avery Work Phone: [facility] Work Phone: Start: 03-14-2023 End: 03-14-2023 Dr. Luiz Avery Work Phone: [facility] Work Phone: Start: 03-13-2023 End: 03-13-[address] Luiz Avery Work Phone: [facility] Work Phone: Start: 03-13-2023 End: 03-13-[address] [facility] Start: 03-13-2023 End: 03-13-2023 Dr[facility] Work Phone: [facility] [facility] Start: 03-13-2023 Telephone encounter Luiz Avery MD Work Phone: [facility] Comment on above: Patient Update Start: 03-06-2023 End: 03-06-[address] Luiz Avery Work Phone: [facility] Work Phone: Start: 03-06-2023 End: 03-06-[address] Luiz Avery Work Phone: [facility] Work Phone: Start: 03-06-2023 End: 03-06-2023 Dr. Luiz Avery Work Phone: [facility] Work Phone: Start: 03-01-2023 End: 03-01-[address] Luiz Avery Work Phone: [facility] Work Phone: Start: 03-01-2023 End: 03-01-[address] Luiz Avery Work Phone: [facility] Work Phone: Start: 03-01-2023 End: 03-01-2023 Dr. [facility] Work [facility]: Start: 02-28-[address] Luis Antonio Avery Work Phone: [facility] Work Phone: Start: 02-28-2023 Dr. Luiz Avery Work Phone: [facility] Work Phone: Start: 02-16-2023 Telephone encounter Janelstanislaw omer Kee PROFESSOR OF CHEMICAL ENGINEERING - BRANCH OFFICE MANAGER Work Phone: [facility] Comment on above: Post-op Follow-up Start: 02-09-2023 End: 02-09-[address] 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 Start: 12-14-2022 End: 12-30-2022 Evaluation and management of inpatient Danielle Lai MD Work Phone: [facility] Start: 12-11-2022 End: 12-11-2022 Emergency department patient visit Dr. Luiz [facility] Start: 12-11-2022 End: 12-11-2022 ambulatory DANIELLE LAI [facility] Start: 12-11-2022 End: 12-11-2022 Office outpatient visit 15 minutes Danielle Lai MD Work Phone: [facility] Comment on above: CAD, multiple vessel (Primary Dx) Start: 12-08-2022 End: 12-08-2022 ambulatory [facility] Start: 12-08-2022 End: 12-08-2022 Encounter for other preprocedural examination [facility] Start: 12-07-2022 End: 12-08-2022 ambulatory [facility] Start: 12-07-2022 End: 12-07-2022 Subsequent hospital visit by physician Danielle Lai MD Work Phone: [facility] Comment on above: Atherosclerotic hear t disease of morongo coronary artery without angina pectoris; Nonrheumatic mitral (valve) insufficiency Start: 12-04-2022 Admission to [facility] surgery kinsman Jim Florian PROFESSOR OF CHEMICAL ENGINEERING - BRANCH OFFICE MANAGER Work Phone: [facility] Comment on above: CAD in morongo artery (Primary Dx) Start: 12-04-2022 ambulatory Jim balbuena PROFESSOR OF CHEMICAL ENGINEERING - BRANCH OFFICE MANAGER Work Phone: [facility] Start: 12-01-2022 Telephone encounter Danielle diamond MD Work Phone: [facility] Comment on above: Surgery Scheduling Start: 11-29-2022 End: 11-29-2022 ambulatory AMALIA AVERY [facility] Start: 11-22-2022 Non-patient / Non-visit SENIOR MOBILE DEVELOPER-C Bev De La Torre SENIOR MOBILE DEVELOPER Work Phone: [facility] Start: 11-22-2022 End: 11-22-2022 Admission to same day surgery center SENIOR MOBILE DEVELOPERJesús De La Torre SENIOR MOBILE DEVELOPER Work Phone: [facility]Tricot Knitter/Special Procedures Work Phone: Start: 11-22-2022 End: 11-22-2022 ambulatory ALBER De La Torre NP Work Phone: [facility] Work Phone: Start: 11-14-2022 End: 11-14-2022 Patient encounter procedure SENIOR MOBILE DEVELOPERJesús De La Torre SENIOR MOBILE DEVELOPER Work Phone: [facility]Laboratory Work Phone: Start: 11-14-2022 End: 11-14-2022 Patient encounter procedure SENIOR MOBILE DEVELOPERJesús De La Torre SENIOR MOBILE DEVELOPER Work Phone: [facility] Work Phone: Start: 11-14-2022 End: 11-14-2022 Patient encounter procedure Silvia Hunter APRN.BRANCH OFFICE MANAGER Work Phone: [facility] Comment on above: Benign hypertension (Primary Dx); GERD without esophagitis; Hyperlipidemia LDL goal <100; Hypocalcemia; Complete heart block (HCC); Ischemic cardiomyopathy; Stage 3a chronic kidney disease (HCC) Start: 11-07-2022 End: 11-07-2022 Patient encounter procedure ALBER De La Torre SENIOR MOBILE DEVELOPER Work Phone: [facility]Rad[facility], [facility] Work Phone: Start: 09-22-2022 End: 09-22-2022 Patient encounter procedure ALBER De La Torre SENIOR MOBILE DEVELOPER Work Phone: [facility] Work Phone: Start: 09-19-2022 End: 09-19-2022 Patient encounter procedure ALBER De La Torre SENIOR MOBILE DEVELOPER Work Phone: [facility] Work Phone: Start: 06-02-2022 End: 06-05-2022 Nursing evaluation of patient and report Mi Nurse Work Phone: [facility] Comment on above: Need for vaccination (Primary Dx); Need for influenza vaccination Start: 06-02-2022 Non-patient / Non-visit SENIOR MOBILE DEVELOPER-Cayetano De La Torre SENIOR MOBILE DEVELOPER Work Phone: [facility] Start: 05-31-2022 Non-patient / Non-visit SENIOR MOBILE DEVELOPER-C Bev De La Torre SENIOR MOBILE DEVELOPER Work Phone: [facility] Start: 05-31-2022 End: 05-31-2022 ambulatory SENIOR MOBILE DEVELOPER-Cayetano De La Torre SENIOR MOBILE DEVELOPER Work Phone: [facility] Work Phone: Start: 05-31-2022 End: 05-31-2022 Patient encounter procedure SENIOR MOBILE DEVELOPER-Cayetano De La Torre SENIOR MOBILE DEVELOPER Work Phone: [facility]Cardiovascular Services Start: 05-29-2022 Telephone encounter Luiz Avery MD Work Phone: [facility] Comment on above: Results Start: 05-26-2022 End: 05-26-2022 Subsequent hospital visit by physician Xr [facility] Work Phone: Radiology Comment on above: Bacterial pneumonia [J15.9] Start: 05-18-2022 Telephone encounter Luiz Avery MD Work Phone: [facility] Comment on above: Results Start: 05-17-2022 End: 05-17-2022 Patient encounter procedure Amalia Avery MD Work Phone: [facility] Comment on above: Bacterial pneumonia (Primary Dx); Grief reaction; Benign hypertension; Hyperlipidemia LDL goal <100; Stage 3a chronic kidney disease (HCC); ASHD (arteriosclerotic heart disease); Ischemic cardiomyopathy; Complete heart block (HCC) Start: 05-11-2022 End: 05-11-2022 Subsequent hospital visit by physician Xr [facility] Work Phone: Radiology Comment on above: Viral URI with cough [J06.9] Start: 05-11-2022 End: 05-11-2022 Patient encounter procedure Laura Holbrook PA-C Work Phone: [facility] Comment on above: Pneumonia of both seth ngs due to infectious organism, unspecified part of lung (Primary Dx) Start: 05-05-2022 End: 05-05-2022 Patient encounter procedure SENIOR MOBILE DEVELOPERJesús De La Torre SENIOR MOBILE DEVELOPER Work Phone: [facility] Start: 03-21-2022 End: 03-21-2022 Patient encounter procedure SENIOR MOBILE DEVELOPER-Cayetano De La Torre SENIOR MOBILE DEVELOPER Work Phone: [facility] Start: 03-08-2022 End: 03-08-2022 Patient encounter procedure SENIOR MOBILE DEVELOPER-Cayetano De La Torre SENIOR MOBILE DEVELOPER Work Phone: [facility] Start: 02-14-2022 End: 02-14-2022 Patient encounter procedure SENIOR MOBILE DEVELOPER-Cayetano De La Torre SENIOR MOBILE DEVELOPER Work Phone: [facility] Start: 11-21-2021 Telephone encounter Silvia smith APRN.BRANCH OFFICE MANAGER Work Phone: [facility] Comment on above: Results Start: 11-16-2021 End: 11-16-2021 Patient encounter procedure Silvia Hunter APRN.BRANCH OFFICE MANAGER Work Phone: [facility] Comment on above: Encounter to [facility] with new doctor (Primary Dx); GERD without esophagitis; Hyperlipidemia LDL goal <100; Stage 3a chronic kidney disease (HCC); Benign hypertension; Complete heart block (HCC) Procedures Date Procedure Procedure Detail Performing Clinician Start: 12-24-2024 Radiologic exam chest 2 views Silvia smith APRN.BRANCH OFFICE MANAGER Work Phone: Start: 11-21-2024 X-ray of chest, PA and lateral views Dr. Luiz Avery MD Work Phone: Start: 11-04-[address] Luis Antonio Avery MD Work Phone: Start: 10-01-2024 Serum inorganic phosphate measurement Dr. Luiz Avery MD Work Phone: Start: 06-21-2024 Assay of phosphorus inorganic Dr. Satish Avery MD Work Phone: Start: 06-21-2024 Measurement of renal function Dr. Satish Avery MD Work Phone: Comment on above: GFR Calc Start: 05-10-2024 Radiologic exam chest 2 views Ari Reinoso PROFESSOR OF CHEMICAL ENGINEERING.BRANCH OFFICE MANAGER Work Phone: Start: 08-07-2023 Radiologic exam chest 2 views Luiz Avery MD Work Phone: Start: 07-10-2023 Radiologic exam chest 2 views Luiz Avery MD Work Phone: Start: 06-27-2023 CT angiography of chest with contrast Dr. Luiz Avery Work Phone: Start: 06-27-2023 SARS-CoV-2, Influenza & RSV (PCR) Dr. Nohemy Avery Work Phone: Start: 06-27-2023 Dr. Luiz Avery Work Phone: Start: 06-27-2023 Plain chest X-ray Dr. Luiz Avery Work Phone: Start: 06-15-[address] Bashir Avery Work Phone: Start: 06-15-2023 Plain chest X-ray Dr. Luiz Avery Work Phone: Start: 06-14-2023 Plain chest X-ray Dr. Luiz Avery Work Phone: Start: 06-13-2023 Computed tomography angiography of abdominal and/or pelvic blood vessel Dr. Luiz Avery Work Phone: Start: 03-16-2023 Plain chest X-ray Dr. Luiz Avery Work Phone: Start: 03-14-2023 Plain chest X-ray Dr. Luiz Avery Work Phone: Start: 03-14-[address] Luiz Avery Work Phone: Start: 01-09-2023 History of coronary artery bypass grafting S/P CABG (coronary artery bypass graft) Janel Mayberry PROFESSOR OF CHEMICAL ENGINEERING - BRANCH OFFICE MANAGER Work Phone: Start: 12-28-2022 Basic metabolic panel calcium total Janel Mayberry PROFESSOR OF CHEMICAL ENGINEERING - BRANCH OFFICE MANAGER Work Phone: Start: 12-26-2022 Basic metabolic panel calcium total Kenton Lorenzana PROFESSOR OF CHEMICAL ENGINEERING - BRANCH OFFICE MANAGER Work Phone: Start: 12-26-2022 Radiologic exam swallow function contrast study Kenton Lorenzana PROFESSOR OF CHEMICAL ENGINEERING - BRANCH OFFICE MANAGER Work Phone: Start: 12-25-2022 Basic metabolic panel calcium total Kenton Lorenzana PROFESSOR OF CHEMICAL ENGINEERING - BRANCH OFFICE MANAGER Work Phone: Start: 12-24-2022 Basic metabolic panel calcium total Jan Rebollar PROFESSOR OF CHEMICAL ENGINEERING - BRANCH OFFICE MANAGER Work Phone: Start: 12-23-2022 Basic metabolic panel calcium total Agustina Marsh MD Work Phone: Start: 12-23-2022 Basic metabolic panel calcium total Jan Rebollar PROFESSOR OF CHEMICAL ENGINEERING - BRANCH OFFICE MANAGER Work Phone: Start: 12-22-2022 Radiologic exam swallow function contrast study Kenton Lorenzana PROFESSOR OF CHEMICAL ENGINEERING - BRANCH OFFICE MANAGER Work Phone: Start: 12-22-2022 Basic metabolic panel calcium total Jan Rebollar PROFESSOR OF CHEMICAL ENGINEERING - BRANCH OFFICE MANAGER Work Phone: Start: 12-21-2022 Radiologic exam chest single view Jan Rebollar PROFESSOR OF CHEMICAL ENGINEERING - BRANCH OFFICE MANAGER Work Phone: Start: 12-21-2022 Potassium serum plasma/whole blood Maxx Rebollar PROFESSOR OF CHEMICAL ENGINEERING - BRANCH OFFICE MANAGER Work Phone: Start: 12-21-2022 Basic metabolic panel calcium total Jan Rebollar PROFESSOR OF CHEMICAL ENGINEERING - BRANCH OFFICE MANAGER Work Phone: Start: 12-20-2022 Potassium serum plasma/whole blood Danielle Lai MD Work Phone: Start: 12-20-2022 Radiologic exam chest single view Jan Rebollar PROFESSOR OF CHEMICAL ENGINEERING - BRANCH OFFICE MANAGER Work Phone: Start: 12-20-2022 Basic metabolic panel calcium total Jan Rebollar PROFESSOR OF CHEMICAL ENGINEERING - BRANCH OFFICE MANAGER Work Phone: Start: 12-19-2022 Radiologic exam abdomen 1 view Janel Jos Xiaorafael LANDRY - BRANCH OFFICE MANAGER Work Phone: Start: 12-19-2022 Radiologic exam chest single view Jan Rebollar APRN - BRANCH OFFICE MANAGER Work Phone: Start: 12-19-2022 Potassium serum plasma/whole blood Maxx Rebollar APRN - BRANCH OFFICE MANAGER Work Phone: Start: 12-19-2022 Basic metabolic panel calcium total Jan Rebollar APRN - BRANCH OFFICE MANAGER Work Phone: Start: 12-18-2022 Echo transthorc r-t 2d w/wo m-mode rec f-up/lmtd Janel Mayberry APRN - BRANCH OFFICE MANAGER Work Phone: Start: 12-18-2022 Radiologic exam chest single view Jan Rebollar APRN - BRANCH OFFICE MANAGER Work Phone: Start: 12-18-2022 Basic metabolic panel calcium total Jan Rebollar APRN - BRANCH OFFICE MANAGER Work Phone: Start: 12-18-2022 Compatibility each unit electronic Maxx Rebollar APRN - BRANCH OFFICE MANAGER Work Phone: Start: 12-17-2022 Radiologic exam swallow function contrast study Jan Rebollar APRN - BRANCH OFFICE MANAGER Work Phone: Start: 12-17-2022 Radiologic exam chest single view Jan Rebollar APRN - BRANCH OFFICE MANAGER Work Phone: Start: 12-17-2022 Basic metabolic panel calcium total Jan Rebollar APRN - BRANCH OFFICE MANAGER Work Phone: Start: 12-16-2022 Glucose quantitative blood xcpt reagent strip Danielle Lai MD Work Phone: Start: 12-16-2022 Radiologic exam chest single view Jan Rebollar APRN - BRANCH OFFICE MANAGER Work Phone: Start: 12-15-2022 End: 12-16-2022 Basic metabolic panel calcium total Jan Rebollar APRN - BRANCH OFFICE MANAGER Work Phone: Start: 12-15-2022 Blood count hematocrit Jan Rebollar APR N - BRANCH OFFICE MANAGER Work Phone: Start: 12-15-2022 Compatibility each unit electronic Klarissa Mayberry GRIS Auguste CNP Work Phone: Start: 12-15-2022 End: 12-15-2022 TRANSFUSE RED BLOOD CELLS Jan Keturah Auguste CNP Work Phone: Start: 12-15-2022 End: 12-15-2022 Basic metabolic panel calcium total Jan Keturah Auguste CNP Work Phone: Start: 12-15-2022 Glucose quantitative blood xcpt reagent strip Danielle Lai MD Work Phone: Start: 12-15-2022 Glucose quantitative blood xcpt reagent strip Danielle Lai MD Work Phone: Start: 12-15-2022 EXTUBATION Jan Auguste CNP Work Phone: Start: 12-15-2022 Glucose quantitative blood xcpt reagent strip Danielle Lai MD Work Phone: Start: 12-15-2022 Ecg routine ecg w/least 12 lds trcg only w/o i&r Jan Auguste CNP Work Phone: Start: 12-15-2022 Radiologic exam chest single view Jan Keturah Auguste CNP Work Phone: Start: 12-15-2022 End: 12-15-2022 Calcium ionized Jan Auguste CNP Work Phone: Start: 12-15-2022 End: 12-15-2022 Glucose quantitative blood xcpt reagent strip Danielle Lai MD Work Phone: Start: 12-15-2022 End: 12-15-2022 Basic metabolic panel calcium total Jan Auguste CNP Work Phone: Start: 12-15-2022 Blood gases any combination ph pco2 po2 co2 hco3 Jan Auguste CNP Work Phone: Start: 12-14-2022 End: 12-15-2022 Glucose quantitative blood xcpt reagent strip Danielle Lai MD Work Phone: Start: 12-14-2022 Glucose quantitative blood xcpt reagent strip Danielle Lai MD Work Phone: Start: 12-14-2022 End: 12-14-2022 Blood count hematocrit Janel Jos Auguste CNP Work Phone: Start: 12-14-2022 End: 12-14-2022 Glucose quantitative blood xcpt reagent strip Danielle Lai MD Work Phone: Start: 12-14-2022 Glucose quantitative blood xcpt reagent strip Danielle Lai MD Work Phone: Start: 12-14-2022 End: 12-14-2022 TRANSFUSE RED BLOOD CELLS Janel Jos Mayberry APRN - BRANCH OFFICE MANAGER Work Phone: Start: 12-14-2022 Glucose quantitative blood xcpt reagent strip Danielle Lai MD Work Phone: Start: 12-14-2022 Blood gases any combination ph pco2 po2 co2 hco3 Jan Auguste CNP Work Phone: Start: 12-14-2022 End: 12-14-2022 TRANSFUSE RED BLOOD CELLS Jan Auguste CNP Work Phone: Start: 12-14-2022 End: 12-14-2022 Glucose quantitative blood xcpt reagent strip Danielle Lai MD Work Phone: Start: 12-14-2022 Radiologic exam chest single view Jan Auguste CNP Work Phone: Start: 12-14-2022 Blood gases any combination ph pco2 po2 co2 hco3 Jan Auguste CNP Work Phone: Start: 12-14-2022 Blood count hematocrit Jan Auguste CNP Work Phone: Start: 12-14-2022 Ecg routine ecg w/least 12 lds trcg only w/o i&r Jan Auguste CNP Work Phone: Start: 12-14-2022 Blood gases any combination ph pco2 po2 co2 hco3 Danielle Lai MD Work Phone: Start: 12-14-2022 End: 12-14-2022 Basic metabolic panel calcium total Danielle Lai MD Work Phone: Start: 12-14-2022 Echo transesophag r-t 2d w/prb img acquisj i&r Danielle Lai MD Work Phone: Start: 12-14-2022 End: 12-14-2022 Cabg w/arterial graft three arterial grafts Danielle Lai MD Work Phone: Start: 12-14-2022 End: 12-14-2022 Echo transesophag r-t 2d w/prb img acquisj i&r Danielle Lai MD Work Phone: Start: 12-14-2022 End: 12-14-2022 Valvuloplasty mitral valve w/cardiac bypass Danielle Lai MD Work Phone: Start: 12-11-2022 CT of head without contrast Dr. Axel Avery Work Phone: Start: 11-07-2022 Plain chest X-ray SENIOR MOBILE DEVELOPER-C Miles De La Torre SENIOR MOBILE DEVELOPER Work Phone: Start: 06-05-2022 INFLUENZA SEASONAL QUADRIVALENT HIGH DOSE AGE 65+ Amalia Avery MD Work Phone: Start: 06-05-2022 [email or web address] COVID-19 BIVALENT BOOSTER VACCINE, AGE 12+ YR Amalia Avery MD Work Phone: Start: 05-26-2022 Radiologic exam chest 2 views Luiz Avery MD Work Phone: Start: 05-11-2022 Radiologic exam chest 2 views Laura R Ath y PEDRO PABLO Work Phone: Start: 12-19-2018 History of placement of stent for coronary artery disease History of coronary artery stent placement SENIOR MOBILE DEVELOPER-Cayetano De La Torre SENIOR MOBILE DEVELOPER Work Phone: Comment on above: PCI-NEGRO-Mid LAD w/ 3.0 x [address] and NEGRO-Prox LCx w/ 2.5 x 8 mm Resolute Stent 11/16/18; PCI-NEGRO-Mid RCA w/ 3.5 x 38 mm and 4.0 x 12 mm Synergy Stent 12/19/18 History of coronary artery bypass grafting S/P CABG (coronary artery bypass graft) Danielle Lai MD Work Phone: History of coronary artery bypass grafting S/P CABG x 2 Dr. Luiz Avery Work Phone: Comment on above: PEDRAZA to the LAD and SVG to the OM 12/17 Plan of Treatment Date Care Activity Detail Author Start: 09-30-2026 Diabetes Screening Diabetes Screening [facility] Start: 08-06-2026 Diabetes Screening Diabetes Screening [facility] Start: 07-08-2026 Diabetes Screening Diabetes Screening [facility] Start: 04-04-2026 Diabetes Screening Diabetes Screening [facility] Start: 12-08-2025 Diabetes Screening Diabetes Screening [facility] Start: 05-17-2025 DIABETES SCREEN DIABETES SCREEN [facility] Start: 05-17-2025 Diabetes Screening Diabetes Screening [facility] Start: 01-07-2025 End: 01-07-2025 Patient encounter procedure [facility] Comment on above: Annual Wellness Annual Wellness Pl ease address HCC Closure Start: 01-03-2025 Covid-19 Vaccine () Covid-19 Vaccine () [facility] Comment on above: Postponed from 12/30/2023 (Declined at t his time) Start: 01-03-2025 Covid-19 Vaccine () Covid-19 Vaccine () [facility] Comment on above: Postponed from 12/30/2023 (Declined at t his time) Start: 12-29-2024 Influenza vaccination Influenza Vaccine (#1) [facility] Start: 11-18-2024 DIABETES SCREEN DIABETES SCREEN [facility] Start: 09-30-2024 Covid-19 Vaccine () Covid-19 Vaccine () [facility] Comment on above: Postponed from 12/29/2022 (Declined at t his time) Start: 09-30-2024 RSV Vaccine (1 - 1-dose 60+ series) RSV Vaccine (1 - 1-dose 60+ series) [facility] Comment on above: Postponed from 1999 (Declined at t his time) Start: 09-30-2024 RSV Vaccine (1 - 1-dose 75+ series) RSV Vaccine (1 - 1-dose 75+ series) [facility] Comment on above: Postponed from 2014 (Declined at t his time) Start: 09-30-2024 Urine microalbumin profile DTaP,Tdap,Td Vaccine (1 - Tdap) [facility] Comment on above: Postponed from 1958 (Declined at t his time) Start: 07-04-2024 End: 07-04-2024 Patient encounter procedure 07/04/2024 8:20 AM EST Office Visit Family Kimmy Moreno [address] [place] [address] Silvia Hunter APRN.BRANCH OFFICE MANAGER [address] [place] [address] 6 month follow up Family Kimmy Moreno Comment on above: 6 month follow up Start: 04-30-2024 Advance Directive Discussion Advance Directive Discussion [facility] Start: 04-30-2024 Medicare Advantage Annual Wellness Visit Medicare Advantage Annual Wellness Visit [facility] Start: 01-04-2024 End: 01-04-2024 Patient encounter procedure 01/04/2024 8:00 AM EDT Office Visit Family Kimmy Moreno [address] [place] [address] Silvia Hunter APRN.BRANCH OFFICE MANAGER [address] [place] [address] 3 month follow up Family Kimmy Moreno Comment on above: 3 month follow up Start: 12-29-[address] [facility] Start: 12-29-[address] [facility] Start: 12-19-[address] [facility] Start: 12-19-2023 [facility] Start: 12-11-2023 End: 12-11-2023 Patient encounter procedure 12/11/2023 11:00 AM EDT Office Visit [facility] [address] [place] [address] Silvia Hunter APRN.BRANCH OFFICE MANAGER [address] [place] [address] 2 month follow up [facility] Kimmy Moreno Comment on above: 2 month follow up Start: 10-01-2023 End: 10-01-2023 Patient encounter procedure 10/01/2023 9:00 AM EDT Office Visit [facility] [address] [place] [address] Amalia Avery MD [address] [facility] [place] [address] 3 month follow up for GI bleed-provider requests 40 min [facility] [place] Comment on above: 3 month follow up for GI bleed-provider requests 40 min Start: 08-29-2023 End: 11-28-2023 CBC W Auto Differential panel - Blood CBC + DIFF Lab Routine Gastrointestinal hemorrhage associated with duodenal ulcer Anemia, unspecified type Expected: 08/29/2023, Expires: 11/28/2023 [facility] Work Phone: Comment on above: Expected: 08/29/2023, Expires: 4 Start: 08-29-2023 End: 11-28-2023 Ferritin [Mass/volume] in Serum or Plasma FERRITIN BLD Lab Routine Gastrointestinal hemorrhage associated with duodenal ulcer Anemia, unspecified type Expected: 08/29/2023, Expires: 11/28/2023 [facility] Work Phone: Comment on above: Expected: 08/29/2023, Expires: 4 Start: 08-29-2023 End: 11-28-2023 Iron and Iron binding capacity panel - Serum or Plasma IRON + TIBC Lab Routine Gastrointestinal hemorrhage associated with duodenal ulcer Anemia, unspecified type Expected: 08/29/2023, Expires: 11/28/2023 [facility] Work Phone: Comment on above: Expected: 08/29/2023, Expires: 4 Start: 08-06-2023 End: 11-05-2023 Comprehensive metabolic 2000 panel - Serum or Plasma COMP METABOLIC PANEL Lab Routine Stage 3a chronic kidney disease (HCC) Expected: 08/06/2023, Expires: 11/05/2023 [facility] Work Phone: Comment on above: Expected: 08/06/2023, Expires: Start: 06-27-2023 [facility] Start: 06-27-2023 [facility] Start: 06-17-2023 Patient discharge [facility] Start: 06-16-2023 Referral to service [facility] Start: 06-14-2023 Oxygen therapy [facility] Start: 06-14-2023 Esophagogastroduodenoscopy [facility] Start: 06-13-2023 Administration of blood product [facility] Start: 06-13-2023 Administration of blood product [facility] Start: 06-12-2023 Following clinical pathway protocol [facility] Start: 06-12-2023 Application of intermittent pneumatic compression device [facility] Start: 06-12-2023 Aspiration precautions [facility] Start: 06-12-2023 Elevation of head of bed [facility] Start: 06-12-2023 Insertion of catheter into peripheral vein [facility] Start: 06-12-2023 Maintenance therapy [facility] Start: 06-12-2023 Measuring intake and output [facility] Start: 06-12-2023 Providing care according to standard [facility] Start: 06-12-2023 Referral to gastroenterology service [facility] Start: 06-12-2023 Referral to occupational therapist [facility] Start: 06-12-2023 Referral to service [facility] Start: 06-12-2023 Vital signs measurements [facility] Start: 06-12-2023 [facility] Start: 06-12-2023 Verification routine [facility] Start: 06-12-2023 Admission procedure [facility] Start: 06-12-2023 Hospital admission, emergency, from emergency room, medical nature [facility] Start: 06-12-2023 Administration of blood product [facility] Start: 06-12-2023 [facility] Start: 06-12-2023 Patient referral to dietitian [facility] Start: 05-17-2023 DIABETES SCREEN DIABETES SCREEN [facility] Start: 05-17-2023 Urine microalbumin profile [facility] Comment on above: Postponed from 1959 (Declined at t his time) Start: 04-30-2023 Advance Directive Discussion Advance Directive Discussion [facility] Start: 04-30-2023 Behavioral Health Screening Behavioral Health Screening [facility] Start: 04-30-2023 Depression Assessment Depression Assessment [facility] Start: 03-19-2023 Patient discharge [facility] Start: 03-17-2023 Fluid restriction [facility] Start: 03-16-2023 End: 03-16-2023 Following clinical pathway protocol [facility] Start: 03-16-2023 Application of elastic bandage [facility] Start: 03-16-2023 Assessment of risk of venous thromboembolism [facility] Start: 03-16-2023 Elevation of affected extremity [facility] Start: 03-16-2023 Fall prevention [facility] Start: 03-16-2023 Incentive spirometry [facility] Start: 03-16-2023 Inhalation therapy procedure [facility] Start: 03-16-2023 Insertion of catheter into peripheral vein [facility] Start: 03-16-2023 Introduction of urinary catheter [facility] Start: 03-16-2023 Measuring intake and output [facility] Start: 03-16-2023 Notification of physician [facility] Start: 03-16-2023 Oxygen therapy [facility] Start: 03-16-2023 Patient education [facility] Start: 03-16-2023 Providing care according to standard [facility] Start: 03-16-2023 Provision of activity privileges [facility] Start: 03-16-2023 Referral to mold sander [facility] Start: 03-16-2023 Referral to occupational therapist [facility] Start: 03-16-2023 Referral to service [facility] Start: 03-16-2023 [facility] Start: 03-16-2023 Hospital admission, emergency, from emergency room, medical nature [facility] Start: 03-16-2023 Verification routine [facility] Start: 03-16-2023 Admission procedure [facility] Start: 03-16-2023 [facility] Start: 03-14-2023 [facility] Start: 03-14-2023 [facility] Start: 03-14-2023 Bacteria identified in Urine by Culture Urine Culture [facility] Start: 03-14-2023 Emergency dept visit high severity&threat funcj [facility] Start: 01-22-2023 End: 01-22-2023 Patient encounter procedure 01/22/2023 10:05 AM EDT Office Visit [facility] [address] [place] [phone] Janel Mayberry APRN - JOELLE [address] [place] [address] [place] [id number] [facility] Start: 01-09-2023 End: 01-09-2023 ambulatory [facility] Start: 12-29-2022 Covid-19 Vaccine ( season) Covid-19 Vaccine ( season) [facility] Start: 12-29-2022 Influenza vaccination [facility] Start: 12-29-2022 [facility] Start: 12-14-2022 End: 12-14-2022 Admission to same day surgery center 12/14/2022 7:00 AM EDT - 12/14/2022 12:00 PM EDT Surgery [facility] MA[facility] OR [address] [place] [phone] Danielle Lai MD [address] [place] [address] [id number] CABG, MITRAL VALVE REPAIR, ELA [[id number] (CPT )] [facility] Comment on above: CABG, MITRAL VALVE REPAIR, ELA [[id number] (C PT )] Start: 12-14-2022 End: 12-14-2022 Anesthesia consultation 12/14/2022 7:00 AM EDT Anesthesia Event [facility] [address] [place] [phone] Niru Sen, PROFESSOR OF CHEMICAL ENGINEERING - BRANCH OFFICE MANAGER [address] [place] [address] [facility] Start: 12-14-2022 End: 12-14-2022 Cabg w/arterial graft three arterial grafts CABG X3 ARTERIAL GRAFTS Atherosclerotic heart disease of morongo coronary artery without angina pectoris Nonrheumatic aortic (valve) stenosis 12/14/2022 7:00 AM EDT [facility] Operating Room Start: 12-14-2022 End: 12-14-2022 Echo transesophag r-t 2d w/prb img acquisj i&r Echocardiography transesophageal real-time Atherosclerotic heart disease of morongo coronary artery without angina pectoris Nonrheumatic aortic (valve) stenosis 12/14/2022 7:00 AM EDT [facility] Operating Room Start: 12-14-2022 Subsequent hospital visit by physician 12/14/2022 7:00 AM EDT Hospital Encounter [facility] [address] [facility] [place] [phone] Danielle Lai MD [address] [address] [facility] Start: 12-14-2022 End: 12-14-2022 Valvuloplasty mitral valve w/cardiac bypass VALVULOPLASTY MITRAL VALVE WITH CARDIOPULMONARY BYPASS Atherosclerotic heart disease of morongo coronary artery without angina pectoris Nonrheumatic aortic (valve) stenosis 12/14/2022 7:00 AM EDT [facility] Operating Room Start: 12-08-2022 End: 12-08-2022 Admission to [facility] 12/08/2022 12:30 PM EDT Pre-Admission Testing [facility] Pre-Admit Testing [address] [facility] [place] [address] Danielle Lai MD 75 [facility] [address] [place] [address] [id number] [facility] Pre-Admit Testing Start: 12-07-2022 Subsequent hospital visit by physician 12/07/2022 12:15 PM EDT Hospital Encounter [facility] [address] [place] [phone] Danielle Lai MD [address] [place] [address] [address] [place], [place] [phone] [facility] Start: 11-22-2022 Patient referral [facility] Work Phone: Start: 11-22-2022 Patient discharge [facility] Start: 11-18-2022 Hepatitis B surface antibody level LDL CHOLESTEROL [facility] Start: 11-14-2022 End: 01-14-2023 Comprehensive metabolic 2000 panel - Serum or Plasma COMP METABOLIC PANEL Lab Routine Hypocalcemia Expected: 11/14/2022, Expires: 01/14/2023 [facility] Work Phone: Comment on above: Expected: 11/14/2022, Expires: 3 Start: 11-14-2022 End: 01-14-2023 Lipid 1996 panel - Serum or Plasma LIPID PANEL BASIC Lab Routine Hyperlipidemia LDL goal <100 Expected: 11/14/2022, Expires: 01/14/2023 [facility] Work Phone: Comment on above: Expected: 11/14/2022, Expires: 3 Start: 09-30-2022 COVID-19 Vaccine (4 - Moderna series) COVID-19 Vaccine (4 - Moderna series) [facility] Start: 09-30-2022 COVID-19 VACCINE (5 - Moderna series) COVID-19 VACCINE (5 - Moderna series) [facility] Start: 05-25-2022 End: 06-17-2023 Radiologic exam chest 2 views XR CHEST 2V FRONTAL/LAT Radiology Routine Bacterial pneumonia Expected: 05/25/2022, Expires: 06/17/2023 [facility] Work Phone: Comment on above: Expected: 05/25/2022, Expires: 4 Start: 05-17-2022 End: 07-17-2022 Comprehensive metabolic 2000 panel - Serum or Plasma [facility] Work Phone: Comment on above: Expected: 05/17/2022, Expires: 3 Start: 05-11-2022 End: 05-25-2022 Influenza virus A and B RNA and SARS-CoV-2 (COVID-19) N gene panel - Respiratory specimen by MIKIE with probe detection [facility] Work Phone: Comment on above: Expected: 05/11/2022, Expires: 3 Start: 04-30-2022 ADVANCE DIRECTIVE DISCUSSION ADVANCE DIRECTIVE DISCUSSION [facility] Start: 04-30-2022 DEPRESSION ASSESSMENT DEPRESSION ASSESSMENT [facility] Start: 12-29-2021 Influenza vaccination INFLUENZA (#1) [facility] Start: 11-16-2021 End: 01-16-2022 Basic metabolic 2000 panel - Serum or Plasma BASIC METABOLIC PNL Lab Routine Stage 3a chronic kidney disease (HCC) Expected: 11/16/2021, Expires: 01/16/2022 [facility] Work Phone: Comment on above: Expected: 11/16/2021, Expires: 2 Start: 11-16-2021 End: 01-16-2022 Lipid 1996 panel - Serum or Plasma LIPID PANEL BASIC Lab Routine Hyperlipidemia LDL goal <100 Expected: 11/16/2021, Expires: 01/16/2022 [facility] Work Phone: Comment on above: Expected: 11/16/2021, Expires: 2 Start: 09-24-2021 COVID-19 VACCINE (4 - Booster for Moderna series) COVID-19 VACCINE (4 - Booster for Moderna series) [facility] Start: 07-22-2021 COVID-19 VACCINE (4 - Booster for Moderna series) COVID-19 VACCINE (4 - Booster for Moderna series) [facility] Start: 05-17-2021 Hepatitis B surface antibody level LDL CHOLESTEROL [facility] Start: 04-30-2021 ADVANCE DIRECTIVE DISCUSSION ADVANCE DIRECTIVE DISCUSSION [facility] Start: 2014 RSV Vaccine (1 - 1-dose 75+ series) RSV Vaccine (1 - 1-dose 75+ series) [facility] Start: 1999 RSV Vaccine (1 - 1-dose 60+ series) RSV Vaccine (1 - 1-dose 60+ series) [facility] Start: 1989 Zoster Vaccines (1 of 2) Zoster Vaccines (1 of 2) [facility] Start: 1989 [facility] Start: 1958 DTaP/Tdap/Td Vaccines (1 - Tdap) DTaP/Tdap/Td Vaccines (1 - Tdap) [facility] Start: 1958 Urine microalbumin profile [facility] Start: 1958 [facility] Start: 1957 Anxiety Screening Anxiety Screening [facility] Start: 1957 Depression Screening Depression Screening [facility] Start: 1951 Depression Screening Depression Screening [facility] Start: 1951 [facility] Start: [address] [facility] Start: 1939 Medicare Advantage Annual Wellness Visit (AWV) Medicare Advantage Annual Wellness Visit (AWV) [facility] Start: [address] [facility] Anion gap in Serum or Plasma [facility] BUN/Creatinine ratio [facility] Calcium [Mass/volume ] in Serum or Plasma [facility] Carbon dioxide, tota l [Moles/volume] in Central venous blood [facility] Catheterization of left heart [facility] Creatinine [Mass/vol ume] in Serum or Plasma [facility] End: 12-07-2022 CT Chest WO contrast [facility] Work Phone: Comment on above: Once for 1 Occurrences starting 12/08/19 23 until 12/07/2022 Glucose [Mass/volume ] in Serum or Plasma [facility] Measurement of renal function [facility] OUTSIDE PROCEDURE SCAN OUTSIDE P ROCEDURE SCAN Procedures Ordered: 12/06/2022 [facility] Comment on above: Ordered: 12/06/2022 Patient Education [facility] Work Phone: Patient referral [facility] Work Phone: Potassium measurement [facility] End: 12-14-2022 Prothrombin time (PT) in Blood by Coagulation assay [facility] Work Phone: Serum chloride measurement [facility] Sodium measurement [facility] Urea nitrogen [Mass/ volume] in Serum or Plasma [facility] Immunizations Immunization Date Immunization Notes Care Provider Fa cili 01-04-2024 influenza, high dose seasonal, preservative-free Silvia Podlogar PROFESSOR OF CHEMICAL ENGINEERING.BRANCH OFFICE MANAGER Work Phone: [facility] 01-04-2024 influenza virus vacc ine, unspecified formulation Silvia Podlogar PROFESSOR OF CHEMICAL ENGINEERING.BRANCH OFFICE MANAGER Work Phone: [facility] 03-17-2023 Influenza High-Dose Quadrivalent Dr. Luiz Avery Work Phone: [facility] 06-02-2022 COVID-19 booster vaccine, age 12+ yr, bivalent (PFIZER-BIONTECH) [facility] Work Phone: [facility] Work Phone: 06-02-2022 influenza, high-dose , quadrivalent vaccine (FLUZONE HIGH DOSE QUADRIVALENT) [facility] Work Phone: [facility] Work Phone: 06-02-2022 influenza virus vacc ine, unspecified formulation Jim Florian PROFESSOR OF CHEMICAL ENGINEERING - BRANCH OFFICE MANAGER Work Phone: [facility] 05-27-2021 COVID-19 vaccine, ag e 12+ yr (PFIZER-BIONTECH - SHABAZZ TOP) Silvia Podlogar PROFESSOR OF CHEMICAL ENGINEERING.BRANCH OFFICE MANAGER Work Phone: [facility] Work Phone: 07-09-2020 Covid (Moderna) SENIOR MOBILE DEVELOPERKalyaniC Miles De La Torre SENIOR MOBILE DEVELOPER Work Phone: [facility] 06-11-2020 Covid (Moderna) SENIOR MOBILE DEVELOPER-C Miles De La Torre SENIOR MOBILE DEVELOPER Work Phone: [facility] 03-06-2020 influenza, high-dose , quadrivalent vaccine (FLUZONE HIGH DOSE QUADRIVALENT) Sivlia Podlogar PROFESSOR OF CHEMICAL ENGINEERING.BRANCH OFFICE MANAGER Work Phone: [facility] 07-04-2016 pneumococcal polysaccharide vaccine, 23 valent Silvia Podlogar PROFESSOR OF CHEMICAL ENGINEERING.BRANCH OFFICE MANAGER Work Phone: [facility] 07-01-2015 pneumococcal conjuga te vaccine, 13 valent Silvia Podlogar PROFESSOR OF CHEMICAL ENGINEERING.BRANCH OFFICE MANAGER Work Phone: [facility] Payers Date Payer Category Payer Self-pay [id number] 2021 Medicare AETNA MEDICARE A ETNA MEDICARE PPO [id number] 2021-Present [phone] [address] [place] [address] [facility] [id number] 2021 Medicare [id number] 2021 Medicare (Managed Care) [employer] [place] JAREK [id number] 2014 Private Health Insurance [id number] Medicare [id number] Count Includes [facility] [id number]. 462 Unknown [id number] [id number]. 462 Unknown [id number] 2.16.840.1.446016.3.579.2. 462 Unknown [id number] 2.16.840.1.157203.3.579.2. 462 Unknown [id number] 2.16.840.1.505420.3.579.2. 462 Unknown [id number] 2.16.840.1.523307.3.579.2. 462 Unknown [id number] 2.840.1.634966.3.579.2. 462 Unknown [id number] 2.840.1.410887.3.579.2. 462 Unknown [id number] 2.840.1.524365.3.579.2. 462 Unknown [id number] 2.840.1.738079.3.579.2. 462 Unknown [id number] 2.840.1.358290.3.579.2. 462 Unknown [id number] 2.840.1.248009.3.579.2. 462 Unknown [id number] 2.840.1.773900.3.579.2. 462 Unknown [id number] 2.840.1.377646.3.579.2. 462 Unknown [id number] 2.840.1.088100.3.579.2. 462 Unknown [id number] 2.16840.1.894176.3.579.2. 462 Unknown [id number] 2.840.1.472651.3.579.2. 462 Unknown [id number] 2.16840.1.614337.3.579.2. 462 Unknown [id number] 2.16840.1.636568.3.579.2. 462 Unknown [id number]. 462 Social History Date Type Detail Facility Start: 05-11-2022 End: 07-13-2023 Tobacco smoking status NHIS Ex-smoker [facility] End: 04-30-1967 History of tobacco use Current smoker [facility] Work Phone: Start: 11-16-2021 End: 12-24-2024 Alcohol intake Current non-drinker of alcohol (finding) [facility] Start: 1940 Sex Assigned At Female [facility] Work Phone: Start: 10-29-2021 End: 01-22-2023 Exposure to SARS-CoV-2 (event) Unable to assess [facility] Work Phone: End: 04-30-1967 History of tobacco use Cigarette Smoker [facility] Start: 05-11-2022 End: 01-04-2024 Tobacco use and exposure Smokeless tobacco non-user [facility] Start: 05-05-2022 End: 07-13-2023 Tobacco smoking status ARIS Unknown if ever smoked [facility] Start: 11-16-2018 None [facility] Start: 11-16-2018 Spouse/ Signif icant Other [facility] Start: 11-16-2018 Non-smoker [facility] Start: 11-14-2022 End: 06-19-2024 History of Social function [facility] Start: 11-14-2022 End: 06-19-2024 Tobacco use panel [facility] Start: 03-31-2012 Adult Depression Screening Assessment 0 [facility] Start: 11-15-2020 Gender identity Identifies as female gender (finding) [facility] Work Phone: Start: 11-15-2020 Sexual orientation Heterosexual (fin ding) [facility] Work Phone: Start: 11-29-2022 End: 01-09-2023 Alcohol intake Lifetime non-drinker (finding) [facility] Start: 1940 Sex Assigned At Not on file [facility] Start: 11-21-2022 End: 01-09-2023 Exposure to SARS-CoV-2 (event) Not sure [facility] Within the last year , have you been afraid of your partner or ex-partner? No [facility] (I/We) worried whemin er (my/our) food would run out before (I/we) got money to buy more. Never true [facility] Start: 07-10-2024 End: 07-31-2024 Sex Female (finding) [facility] Medical Equipment Procedure Code Equipment Code Equipment Origin al Text Equipment Identifier Dates [id number] Start: 12-14-2022 [id number] Start: 12-14-2022 Goals Date Patient Goal Desired Activity /State Functional Status Date Assessment Result Facility 06-17-2023 Functional status Ambulates;Chair [facility] Work Phone: 03-19-2023 Functional status Chair [facility] Work Phone: 03-17-2023 Functional status Ambulates;Chair [facility] Work Phone: 07-31-2018 Are you deaf, or do you have serious difficulty hearing No 07/31/2018 11:25 AM Brittanie Membreno III, MD No [facility] 07-31-2018 Are you blind, or do you have serious difficulty seeing, even when wearing glasses No 07/31/2018 11:25 AM Brittanie Membreno III, MD [facility] 07-31-2018 Do you have serious difficulty walking or climbing stairs No 07/31/2018 11:25 AM Brittanie Membreno III, MD No [facility] 07-31-2018 Do you have difficul ty dressing or bathing No 07/31/2018 11:25 AM Brittanie Membreno III, MD No [facility] 07-31-2018 Because of a physica l, mental, or emotional condition, do you have difficulty doing errands alone such as visiting a physician's office or shopping No 07/31/2018 11:25 AM Brittanie Membreno III, MD [facility] Mental Status Date Assessment Result Facility 06-17-2023 Cognitive function Voice/Name [facility] Work Phone: 06-12-2023 Cognitive function Level Of Cons ciousness Awake;Alert [facility] Work Phone: 03-19-2023 Cognitive function Voice/Name [facility] Work Phone: 03-17-2023 Cognitive function Voice/Name [facility] Work Phone: 03-14-2023 Cognitive function Awake;Alert;A ppropriate;Fol lows Commands [facility] Work Phone: 07-31-2018 Because of a physica l, mental, or emotional condition, do you have serious difficulty concentrating, remembering, or making decisions No 07/31/2018 11:25 AM EDT Brittanie Garrido III, MD No [facility] Clinical Notes 04-12-2017 to 02-18-2025 Antonio Carolina (R) - 12/24/2024 8:50 AM EDTPatient Silvia Aldridge APRN.[facility] - 12/24/2024 8:30 AM EDTPatient Silvia Aldridge APRN.[facility] - 12/01/2024 7:24 AM EDT Note Date & Type Note Facility 02-18-2025 Note HNO ID: [id number] Author: ?, ?, ? Service: ? Author Type: ? Type: Progress Notes Filed: 02/18/2025 09:35 Note Text: POPULATION HEALTH NAVIGATION OUTREACH Action/I - HCC Flu: Overdue for dose 1 since 12/29/2024 Wellness: Never done Called Patient: Patient answered AND hung up , mychart sent Reason for Outreach Care Gap/HCC or Scheduling Wellness Visits Care Gaps due: Medicare Annual Wellness Visit Flu Vaccine Patient Contacted: Spoke to patient/parent/or legal guardian Patient identified by name and : No Navigation Signature: Alicia Gant February 18, 2025 9:20 AM [facility] 02-18-2025 Note Patient Outreach (EVERTON TNDOROTA) DAYANA QUIÑONES ([id number]) 1940 F Date Time Provider Department 02/18/25 AMALIA AVERY During your visit today, we recorded the following information about you: Alicia Gant 02/18/2025 9:35 AM Signed POPULATION HEALTH NAVIGATION OUTREACH Action/ - HCC Flu: Overdue for dose 1 since 12/29/2024 Wellness: Never done Called Patient: Patient answered AND hung up , mychart sent Reason for Outreach Care Gap/HCC or Scheduling Wellness Visits Care Gaps due: Medicare Annual Wellness Visit Flu Vaccine Patient Contacted: Spoke to patient/parent/or legal guardian Patient identified by name and : No Navigation Signature: Alicia Gant February 18, 2025 9:20 AM Allergies As of Date: 02/18/2025 Noted Allergy Reaction MORPHINE 01/11/2017 8 - GI Upset 11 - Vomiting Date Reviewed: 12/01/2024 Reviewed by: Kinga Chilel LPN - Fully Assessed Reason for Visit: Population Health Navigation Outreach [3910] Cmt: Erica Moreno Prescriptions as of 02/18/2025 - ferrous sulfate 325 mg (65 mg iron) tablet Take one tablet every other day - amiodarone (PACERONE) 200 mg tablet Take 1 tablet by mouth every afternoon. - furosemide (LASIX) 20 mg tablet Take one tablet daily - apixaban (ELIQUIS) 5 mg tab(s) Take 1 tablet by mouth two times a day. - acyclovir (ZOVIRAX) 800 mg tablet Take one tablet once a day - erythromycin (ROMYCIN) 5 mg/gram (0.5 %) ophthalmic ointment Use 1 application in both eyes daily at bedtime. - Cholecalciferol, Vitamin D3, 25 mcg (1,000 unit) cap Take 2 capsules by mouth once daily. - pantoprazole DR (PROTONIX) 40 mg tablet Take 1 tablet by mouth two times a day. - Vit A,C,Y-Cliy-Ryjwjl (ICAPS AREDS) 4,296 mcg-226 mg-90 mg cap [...] eye as directed. Every other day. - COMPOUNDED PRESCRIPTION 1 Drop. 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] 07/01/2015 Fibrocystic breast disease (FCBD) in female [N6*07/01/2015 Occult blood positive stool [R19.5] 12/21/2016 Neutrophilia [D72.828] 12/22/2016 12/14/2017 Lichen sclerosus et atrophicus [L90.0] 02/22/2017 BPPV (benign paroxysmal positional vertigo), un*04/11/2017 Acute renal failure superimposed on stage 3 chr*04/12/2017 04/26/2017 Stage 3b chronic kidney disease (HCC) [N18.32] 04/26/2017 Vitamin D deficiency [E55.9] 09/13/2017 Complete heart block (HCC) [I44.2] 07/31/2018 Adjustment disorder with anxious mood [F43.22] 07/31/2018 Normally functioning cardiac pacemaker present *11/01/2018 Arthritis of left ankle [M19.072] 11/01/2018 Closed fracture of body of sternum [S22.22XA] 02/10/2019 Obesity, Class I, BMI 30-34.9 [E66.811] 11/15/2020 Hyperlipidemia LDL goal <100 [E78.5] 11/15/2020 Ischemic cardiomyopathy [I25.5] 05/17/2022 Acute on chronic systolic heart failure (HCC) [*03/29/2023 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 Service: ? Author Type: ? Type: Progress Notes Filed: 01/19/2025 15:00 Note Text: POPULATION HEALTH NAVIGATION OUTREACH Action/FYI - 1 HCC Wellness: Never Done Flu: Due for dose 1 since 12/29/2024 Called Patient: Left Voicemail AND Sent [employer] Reason for Outreach Care Gap/HCC or Scheduling Wellness Visits Care Gaps due: Medicare Annual Wellness Visit Flu Vaccine Patient Contacted: Unable or unnecessary to reach patient: Left message IDEA SPHEREhart message sent HCC related Navigation Signature: Alicia Gant January 19, 2025 2:57 PM [facility] 01-19-2025 Note HNO ID: [id number] Author: MEGHANA DAVIES MA Service: ? Author Type: Sales Management Trainee Type: Progress Notes Filed: 01/19/2025 13:52 Note Text: POPULATION HEALTH NAVIGATION OUTREACH Action/ Patient is on cancellation call back list: AWV from 01/07/25 cancelled Spoke to patient. Declined to schedule. Patient states that she has some things going on with her pacemaker and will call back when those things settle down Reason for Outreach Care Gap/HCC or Scheduling Wellness Visits Care Gaps due: Medicare Annual Wellness Visit Flu Vaccine Patient Contacted: Spoke to patient/parent/or legal guardian Patient identified by name and : Yes Care Gap/HCC/Scheduling Wellness actions taken: Patient declined: Patient requested call back from navigator/ will call navigator back Navigation Signature: Meghana Davies MA January 19, 2025 1:49 PM [facility] 01-19-2025 Note Patient Outreach ([facility]) -- DAYANA QUIÑONES ([id number]) 1940 F Date Time Provider Department 01/19/25 AMALIA AVERY During your visit today, we recorded the following information about you: Alicia Gant 01/19/2025 3:00 PM Signed POPULATION HEALTH NAVIGATION OUTREACH Action/ - HCC Wellness: Never Done Flu: Due for dose 1 since 12/29/2024 Called Patient: Left Voicemail AND Sent [employer] Reason for Outreach Care Gap/HCC or Scheduling Wellness Visits Care Gaps due: Medicare Annual Wellness Visit Flu Vaccine Patient Contacted: Unable or unnecessary to reach patient: Left message IDEA SPHEREhart message sent HCC related Navigation Signature: Alicia Gant January 19, 2025 2:57 PM Allergies As of Date: 01/19/2025 Noted Allergy Reaction MORPHINE 01/11/2017 8 - GI Upset 11 - Vomiting Date Reviewed: 12/01/2024 Reviewed by: Kinga Chilel LPN - Fully Assessed Reason for Visit: Population Health Navigation Outreach [3910] Cmt: Erica Moreno Prescriptions as of 01/19/2025 - ferrous sulfate 325 mg (65 mg iron) tablet Take one tablet every other day - amiodarone (PACERONE) 200 mg tablet Take 1 tablet by mouth every afternoon. - furosemide (LASIX) 20 mg tablet Take one tablet daily - apixaban (ELIQUIS) 5 mg tab(s) Take 1 tablet by mouth two times a day. - acyclovir (ZOVIRAX) 800 mg tablet Take one tablet once a day - erythromycin (ROMYCIN) 5 mg/gram (0.5 %) ophthalmic ointment Use 1 application in both eyes daily at bedtime. - Cholecalciferol, Vitamin D3, 25 mcg (1,000 unit) cap Take 2 capsules by mouth once daily. - pantoprazole DR (PROTONIX) 40 mg tablet Take 1 tablet by mouth two times a day. - Vit A,C,M-Camn-Zwfuvu (ICAPS AREDS) 4,296 mcg-226 mg-90 mg cap [...] eye as directed. Every other day. - COMPOUNDED PRESCRIPTION 1 Drop. 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] 07/01/2015 Fibrocystic breast disease (FCBD) in female [N6*07/01/2015 Occult blood positive stool [R19.5] 12/21/2016 Neutrophilia [D72.828] 12/22/2016 12/14/2017 Lichen sclerosus et atrophicus [L90.0] 02/22/2017 BPPV (benign paroxysmal positional vertigo), un*04/11/2017 Acute renal failure superimposed on stage 3 chr*04/12/2017 04/26/2017 Stage 3b chronic kidney disease (HCC) [N18.32] 04/26/2017 Vitamin D deficiency [E55.9] 09/13/2017 Complete heart block (HCC) [I44.2] 07/31/2018 Adjustment disorder with anxious mood [F43.22] 07/31/2018 Normally functioning cardiac pacemaker present *11/01/2018 Arthritis of left ankle [M19.072] 11/01/2018 Closed fracture of body of sternum [S22.22XA] 02/10/2019 Obesity, Class I, BMI 30-34.9 [E66.811] 11/15/2020 Hyperlipidemia LDL goal <100 [E78.5] 11/15/2020 Ischemic cardiomyopathy [I25.5] 05/17/2022 Acute on chronic systolic heart failure (HCC) [*03/29/2023 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 FALL SCREENING: Has the patient had 2 falls in the last year or 1 fall with injury or currently using an Ambulatory Assistive Device (Walker, Cane, Wheelchair, Crutches, etc.)? Yes, Patient High Risk for Falls What interventions were put in place to prevent falls during this visit? Increased Observations by Caregivers PATIENT GENDER DATA: Assigned female at . status: : No status: NO. PATIENT RELEVANT IMPLANT DATA REVIEWED: Yes PATIENT PRESENTS WITH AN IMPLANTABLE OR ATTACHED LEACH CELL OPERATOR: No RADIOLOGY DEPARTMENT: General X-ray: Exam(s) Completed: Chest X-Ray PERIPHERAL IV DATA: Not applicable SIGNED BY: ILAN Hennessy) December 24, 2024 9:17 AM documented in this encounter [facility] 12-24-2024 Note HNO ID: [id number] Author: ANTONIO CAROLINA RT(R) Service: ? Author Type: Automotive Artist Type: Progress Notes Filed: 12/24/2024 09:18 Note Text: Radiology Service Progress Note PATIENT NAME: Dayana Quiñones DATE OF SERVICE: December 24, 2024 TIME: 9:17 AM PATIENT IDENTITY VERIFICATION COMPLETED USING TWO (2) IDENTIFIERS: Name and Date of confirmed by patient verbally. FALL SCREENING: Has the patient had 2 falls in the last year or 1 fall with injury or currently using an Ambulatory Assistive Device (Walker, Cane, Wheelchair, Crutches, etc.)? Yes, Patient High Risk for Falls What interventions were put in place to prevent falls during this visit? Increased Observations by Caregivers PATIENT GENDER DATA: Assigned female at . status: : No status: NO. PATIENT RELEVANT IMPLANT DATA REVIEWED: Yes PATIENT PRESENTS WITH AN IMPLANTABLE OR ATTACHED LEACH CELL OPERATOR: No RADIOLOGY DEPARTMENT: General X-ray: Exam(s) Completed: Chest X-Ray PERIPHERAL IV DATA: Not applicable SIGNED BY: RT Minoo(R) December 24, 2024 9:17 AM [facility] 12-24-2024 Instructions Silvia Hunter APRN.CNP - 12/24/2024 8:41 AM EDT Oral: (Mucinex) Immediate release: 200 to 400 mg every 4 hours as needed; maximum daily dose: 2.4 g. Extended release: 600 mg to 1.2 g every 12 hours as needed; maximum daily dose: 2.4 g. Start (Flonase) 2 sprays each nares daily. Rinse mouth after use documented in this encounter [facility] 12-24-2024 Note HNO ID: [id number] Author: SILVIA HUNTER APRN.JOELLE Service: ? Author Type: Nurse Practitioner Type: Progress Notes Filed: 12/24/2024 09:29 Note Text: 12/24/2024 Patient presents with: Cough: And nasal drainage x7 days Recording using [employer] software for draft documentation of the visit was discussed with the patient/authorized packaging sales representative; all questions welcomed and answered. Patient/authorized packaging sales representative agreed to proceed SUBJECTIVE: This is a 84 year old, accompanied by son, that is here today for Above Complaints. Cough and Rhinorrhea: - Dayana Quiñones has had a cough and rhinorrhea for 7 days. - Sputum production varies between clear and yellow. - Rhinorrhea is constant, with nasal discharge also varying between clear and yellow. - Dayana denies sinus pain or pressure. - Dayana denies fevers or chills. - Nocturnal symptoms absent; cough and rhinorrhea begin upon waking. - Dayana denies history of allergies. - Using Mucinex throat lozenges PRN. - Dayana denies sore throat. 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 Brumfield Benign hypertension 07/01/2015 BPPV (benign paroxysmal positional vertigo), unspecified laterality 04/11/2017 CKD (chronic kidney disease) stage 3, GFR 30-59 ml/min (HCC) Fibrocystic breast disease (FCBD) in female 07/01/2015 Gastroesophageal reflux disease 07/01/2015 Gastrointestinal bleed duodenal ulcer Herpes zoster keratoconjunctivitis 07/01/2015 Hyperlipidemia 2019 Ischemic cardiomyopathy Neutrophilia 12/22/2016 Normally functioning cardiac pacemaker present 11/01/2018 Paroxysmal atrial flutter (HCC) Presence of permanent cardiac pacemaker 2019 S/P CABG (coronary artery bypass graft) S/P MVR (mitral valve repair) Shingles 12/27/2014 ST elevation (STEMI) myocardial infarction involving left anterior descending coronary artery (HCC) 2019 ALLERGIES Morphine MEDICATIONS Current Outpatient Medications Medication Sig ferrous sulfate 325 mg (65 mg iron) tablet Take one tablet every other day amiodarone (PACERONE) 200 mg tablet Take 1 tablet by mouth every afternoon. furosemide (LASIX) 20 mg tablet Take one tablet daily apixaban (ELIQUIS) 5 mg tab(s) Take 1 tablet by mouth two times a day. acyclovir (ZOVIRAX) 800 mg tablet Take one tablet once a day erythromycin (ROMYCIN) 5 mg/gram (0.5 %) ophthalmic ointment Use 1 application in both eyes daily at bedtime. Cholecalciferol, Vitamin D3, 25 mcg (1,000 unit) cap Take 2 capsules by mouth once daily. pantoprazole DR (PROTONIX) 40 mg tablet Take 1 tablet by mouth two times a day. Vit A,C,A-Ourh-Qgzrkr (ICAPS AREDS) 4,296 mcg-226 mg-90 mg cap [...] allergies reviewed by this provider. SOCIAL HISTORY SOCIAL HISTORY[1] REVIEW OF SYSTEMS All other reviewed and negative other than HPI. OBJECTIVE: BP 118/64 Pulse 67 Temp 36 ?C (96.8 ?F) Resp 18 Wt 64.6 kg (142 lb 6.4 oz) SpO2 93% BMI 25.23 kg/m? . Vital signs reviewed by this provider. APPEARANCE Well appearing, alert, in no acute distress, well-hydrated, well nourished. EYES conjunctiva and sclera normal. EARS External ears normal, canals clear NOSE/SINUS Nares normal. Septum midline. Mucosa normal. No drainage or sinus tenderness. THROAT normal, no erythema NECK Supple, no adenopathy; thyroid symmetric, normal size, no bruits HEART RRR with normal S1 and S2, no murmurs, no gallops, no JVD appreciated LUNG clear to auscultation. No wheezes rhonchi or rales SKIN Skin color, texture, turgor normal, no suspicious rashes or lesions Depression Screening Never done Anxiety Screening Never done DTaP,Tdap,Td Vaccine(1 - Tdap) Never done RSV Vaccine(1 - 1-dose 75+ series) Never done Advance Directive Discussion Never done Medicare Advantage Annual Wellness Visit Never done Influenza Vaccine(1) due on 12/29/2024 Diabetes Screening due on 09/30/2026 Bone Density Screening Completed Pneumococcal Vaccine: 50+ Completed Shingrix Vaccine Discontinued 1. Acute cough (R05.1) 2. Postnasal drip (R09.82) - Cough with yellow and clear sputum for 7 days, associated with significant nasal drainage; no sinus pain, pressure, fever, or chills; no new or worsening dyspnea. - Exam: No sinus tenderness, no pharyngeal erythema, no chest rattling. - Likely secondary to postnasal drip. - Start Flonase nasal s (more content not included)... [facility] 12-24-2024 History of Present illness Narrative 12/24/2024 Patient presents with: Cough: And nasal drainage x7 days Recording using [employer] software for draft documentation of the visit was discussed with the patient/authorized packaging sales representative; all questions welcomed and answered. Patient/authorized packaging sales representative agreed to proceed SUBJECTIVE: This is a 84 year old, accompanied by son, that is here today for Above Complaints. Cough and Rhinorrhea: - Dayana Quiñones has had a cough and rhinorrhea for 7 days. - Sputum production varies between clear and yellow. - Rhinorrhea is constant, with nasal discharge also varying between clear and yellow. - Dayana denies sinus pain or pressure. - Dayana denies fevers or chills. - Nocturnal symptoms absent; cough and rhinorrhea begin upon waking. - Daynaa denies history of allergies. - Using Mucinex throat lozenges PRN. - Dayana denies sore throat. 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 Brumfield Benign hypertension 07/01/2015 BPPV (benign paroxysmal positional vertigo), unspecified laterality 04/11/2017 CKD (chronic kidney disease) stage 3, GFR 30-59 ml/min ([facility]) Fibrocystic breast disease (FCBD) in female 07/01/2015 Gastroesophageal reflux disease 07/01/2015 Gastrointestinal bleed duodenal ulcer Herpes zoster keratoconjunctivitis 07/01/2015 Hyperlipidemia 2019 Ischemic cardiomyopathy Neutrophilia 12/22/2016 Normally functioning cardiac pacemaker present 11/01/2018 Paroxysmal atrial flutter (HCC) Presence of permanent cardiac pacemaker 2018 S/P CABG (coronary artery bypass graft) S/P MVR (mitral valve repair) Shingles 12/27/2014 ST elevation (STEMI) myocardial infarction involving left anterior descending coronary artery (HCC) 2019 ALLERGIES Morphine MEDICATIONS Current Outpatient Medications Medication Sig ferrous sulfate 325 mg (65 mg iron) tablet Take one tablet every other day amiodarone (PACERONE) 200 mg tablet Take 1 tablet by mouth every afternoon. furosemide (LASIX) 20 mg tablet Take one tablet daily apixaban (ELIQUIS) 5 mg tab(s) Take 1 tablet by mouth two times a day. acyclovir (ZOVIRAX) 800 mg tablet Take one tablet once a day erythromycin (ROMYCIN) 5 mg/gram (0.5 %) ophthalmic ointment Use 1 application in both eyes daily at bedtime. Cholecalciferol, Vitamin D3, 25 mcg (1,000 unit) cap Take 2 capsules by mouth once daily. pantoprazole DR (PROTONIX) 40 mg tablet Take 1 tablet by mouth two times a day. Vit A,C,L-Ffic-Rawojj (ICAPS AREDS) 4,296 mcg-226 mg-90 mg cap [...] allergies reviewed by this provider. SOCIAL HISTORY SOCIAL HISTORY[1] REVIEW OF SYSTEMS All other reviewed and negative other than HPI. OBJECTIVE: BP 118/64 Pulse 67 Temp 36 C (96.8 F) Resp 18 Wt 64.6 kg (142 lb 6.4 oz) SpO2 93% BMI 25.23 kg/m . Vital signs reviewed by this provider. APPEARANCE Well appearing, alert, in no acute distress, well-hydrated, well nourished. EYES conjunctiva and sclera normal. EARS External ears normal, canals clear NOSE/SINUS Nares normal. Septum midline. Mucosa normal. No drainage or sinus tenderness. THROAT normal, no erythema NECK Supple, no adenopathy; thyroid symmetric, normal size, no bruits HEART RRR with normal S1 and S2, no murmurs, no gallops, no JVD appreciated LUNG clear to auscultation. No wheezes rhonchi or rales SKIN Skin color, texture, turgor normal, no suspicious rashes or lesions Depression Screening Never done Anxiety Screening Never done DTaP,Tdap,Td Vaccine(1 - Tdap) Never done RSV Vaccine(1 - 1-dose 75+ series) Never done Advance Directive Discussion Never done Medicare Advantage Annual Wellness Visit Never done Influenza Vaccine(1) due on 12/29/2024 Diabetes Screening due on 09/30/2026 Bone Density Screening Completed Pneumococcal Vaccine: 50+ Completed Shingrix Vaccine Discontinued 1. Acute cough (R05.1) 2. Postnasal drip (R09.82) - Cough with yellow and clear sputum for 7 days, associated with significant nasal drainage; no sinus pain, pressure, fever, or chills; no new or worsening dyspnea. - Exam: No sinus tenderness, no pharyngeal erythema, no chest rattling. - Likely secondary to postnasal drip. - Start Flonase nasal spray, 2 sprays per nostril daily; instructed to aim spray laterally to avoid septal irritation and rinse mouth after use to reduce risk of thrush. - Recommended Mucinex (guaifenesin) extended-release 600-1200 mg PO every 12 hours to thin secretions; advised to maintain adequate hydration. - Educated on reading medication labels to avoid duplicate ingredients and encouraged use of generics for cost savings. - Ordered chest X-ray to rule out pneumonia; will review results today and initiate treatment if indicated. Silvia Hunter APRN.CNP Prescription instructions reviewed with patient as applicable. Patient advised if symptoms do not improve or if symptoms worsen sooner, to contact their primary care physician. Potential red flag symptoms discussed with the patient. Reviewed appropriate action plan to take if red flag symptoms occur. Patient agreeable to treatment plan. 16258 OVERALL COMPLEXITY Problem Complexity: Low Data Level: Straightforward Risk Level: Moderate Overall MDM complexity (2/3 must be met or exceeded): Low PROBLEMS SECTION: 1. Acute cough - Acute, uncomplicated illness or injury 2. Postnasal drip - Acute, uncomplicated illness or injury Two or more acute, uncomplicated illnesses or injuries (Low complexity) Problem complexity level: Low DATA SECTION: - Review of prior external note(s) from each unique source: - Review of the result(s) of each unique test: - Ordering of each unique test: chest x-ray - Assessment requiring an independent historian(s): - Independent interpretation of a test performed by another physician/other qualified health medicare interviewer: - Discussion of management or test interpretation with external physician/other qualified health medicare interviewer/appropriate source: Data complexity level: Minimal; minimal or none RISKS SECTION: Prescription drug management (initiation of Flonase nasal spray) - Moderate complexity OTC medication recommendation (Mucinex/guaifenesin) - Low complexity Chest X-ray ordered - Minimal complexity Patient education (medication safety, hydration) - Minimal complexity Risks complexity level (highest from above): Moderate [1] Social History Tobacco Use Smoking status: Former Current packs/day: 0.00 Types: Cigarettes Quit date: 04/30/1967 Years since quittin.6 Smokeless tobacco: Never Vaping Use Vaping status: Never Used Substance Use Topics Alcohol use: No Drug use: Never documented in this encounter [facility] 12-01-2024 Instructions Silvia Hunter APRN.CNP - 12/01/2024 8:48 AM EDT - Continue taking your Lasix (20 mg) by mouth once daily to help manage fluid around your heart. - Keep taking your iron supplement every other day; a refill has been sent to [facility] in [place] so you won t run out before your next visit. - Take your cholesterol medicine each night as prescribed. - Continue your Eliquis for atrial fibrillation as directed by cardiology. - Do not restart Farxiga, as your kidney specialist discontinued it to protect your kidney function. - Follow up with Dr. Brumfield this for ongoing heart failure management. - Return to this clinic in December for your routine follow-up; we will check your cholesterol at that visit if it has not been done recently. documented in this encounter [facility] 12-01-2024 Note HNO ID: [id number] Author: SILVIA HUNTER APRN.JOELLE Service: ? Author Type: Nurse Practitioner Type: Progress Notes Filed: 12/01/2024 08:00 Note Text: 12/01/2024 Patient presents with: Follow Up: Dr. Brumfield wanted patient to be checked by PCP before seeing him. Recording using [employer] software for draft documentation of the visit was discussed with the patient/authorized packaging sales representative; all questions welcomed and answered. Patient/authorized packaging sales representative agreed to proceed SUBJECTIVE: This is a 84 year old, accompanied by son, that is here today for Above Complaints. Dyspnea: - Recent onset of dyspnea. - Recent CXR and blood work revealed pericardial effusion. - Lasix dosage increased to 40 mg, then decreased to 20 mg due to side effects. - Denies peripheral edema. Balance Issues: - Recent onset of balance issues. - Reports dizziness and lightheadedness. - no recent falls CHF: - Ejection fraction of 15% on last echocardiogram, approximately one year ago. - BNP levels elevated. - Pacemaker functioning appropriately. - Currently on Eliquis for AFib. - Mitral valve prolapse repair in 2022. - Taking iron supplements every other day. CKD: - Recent blood work showed progression from stage 3 to stage 4 CKD. - Farxiga discontinued on October 01 due to declining kidney function. - No discussions of dialysis at this time. 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 Brumfield Benign hypertension 07/01/2015 BPPV (benign paroxysmal positional vertigo), unspecified laterality 04/11/2017 CKD (chronic kidney disease) stage 3, GFR 30-59 ml/min (HCC) Fibrocystic breast disease (FCBD) in female 07/01/2015 Gastroesophageal reflux disease 07/01/2015 Gastrointestinal bleed duodenal ulcer Herpes zoster keratoconjunctivitis 07/01/2015 Hyperlipidemia 2019 Ischemic cardiomyopathy Neutrophilia 12/22/2016 Normally functioning cardiac pacemaker present 11/01/2018 Paroxysmal atrial flutter (HCC) Presence of permanent cardiac pacemaker 2018 S/P CABG (coronary artery bypass graft) S/P MVR (mitral valve repair) Shingles 12/27/2014 ST elevation (STEMI) myocardial infarction involving left anterior descending coronary artery (HCC) 2018 ALLERGIES Morphine MEDICATIONS Current Outpatient Medications Medication Sig amiodarone (PACERONE) 200 mg tablet Take 1 tablet by mouth every afternoon. furosemide (LASIX) 20 mg tablet Take one tablet daily apixaban (ELIQUIS) 5 mg tab(s) Take 1 tablet by mouth two times a day. acyclovir (ZOVIRAX) 800 mg tablet Take one tablet once a day Cholecalciferol, Vitamin D3, 25 mcg (1,000 unit) cap Take 2 capsules by mouth once daily. spironolactone (ALDACTONE) 25 mg tablet Take 25 mg by mouth once daily. (Patient taking differently: Take 12.5 mg by mouth once daily.) pantoprazole DR (PROTONIX) 40 mg tablet Take 1 tablet by mouth two times a day. carvedilol (COREG) 3.125 mg tablet Take 3.125 mg by mouth two times a day with meals. Vit A,C,X-Ghqk-Tiagbv (ICAPS AREDS) 4,296 mcg-226 mg-90 mg cap Take 1 capsule by mouth once daily. timolol maleate (TIMOPTIC) 0.5 % ophthalmic solution Use 1 Drop in the left eye twice daily. betamethasone dipropionate (DIPROSONE) 0.05 % cream Apply to affected area twice daily as needed. atorvastatin (LIPITOR) 20 mg tablet Take 20 mg by mouth daily at bedtime. COMPOUNDED PRESCRIPTION 1 Drop. Every other day-left eye ferrous sulfate 325 mg (65 mg iron) tablet Take one tablet every other day erythromycin (ROMYCIN) 5 mg/gram (0.5 %) ophthalmic ointment Use 1 application in both eyes daily at bedtime. Difluprednate 0.05 % drop Use 1 Drop in the left eye as directed. Every other day. No current facility-administered medications for this visit. Medications and allergies reviewed by this provider. SOCIAL HISTORY Social History Tobacco Use Smoking status: Former Current packs/day: 0.00 Types: Cigarettes Quit date: 04/30/1967 Years since quittin.6 Smokeless tobacco: Never Vaping Use Vaping status: Never Used Substance Use Topics Alcohol use: No Drug use: Never REVIEW OF SYSTEMS All other reviewed and negative other than HPI. OBJECTIVE: BP 108/66 Pulse (!) 59 Resp 18 Wt 65.3 kg (144 lb) SpO2 94% BMI 25.51 kg/m? . Vital signs reviewed by this provider. GENERAL: NAD, alert and oriented. SKIN: Unremarkable, no rash or skin lesions to exposed skin EYES:conjunctiva clear. LUNGS: Clear to auscultation bilaterally, no wheezes/rhonchi/rales. HEART: Regular rate and rhythm, no murmurs. No ectopy. EXTREMITIES: Normal, no deformities, no skin discoloration, no edema. Depression Screening Never done Anxiety Screening Never done DTaP,Tdap,Td Vaccine(1 - Tdap) Never done RSV Vaccine(1 - 1-dose 75+ series) Never done Advance Directive Discussion Never done Medicare Advantage Annual Wellness Vis (more content not included)... [facility] 12-01-2024 History of Present illness Narrative 12/01/2024 Patient presents with: Follow Up: Dr. Brumfield wanted patient to be checked by PCP before seeing him. Recording using [employer] software for draft documentation of the visit was discussed with the patient/authorized packaging sales representative; all questions welcomed and answered. Patient/authorized packaging sales representative agreed to proceed SUBJECTIVE: This is a 84 year old, accompanied by son, that is here today for Above Complaints. Dyspnea: - Recent onset of dyspnea. - Recent CXR and blood work revealed pericardial effusion. - Lasix dosage increased to 40 mg, then decreased to 20 mg due to side effects. - Denies peripheral edema. Balance Issues: - Recent onset of balance issues. - Reports dizziness and lightheadedness. - no recent falls CHF: - Ejection fraction of 15% on last echocardiogram, approximately one year ago. - BNP levels elevated. - Pacemaker functioning appropriately. - Currently on Eliquis for AFib. - Mitral valve prolapse repair in 2022. - Taking iron supplements every other day. CKD: - Recent blood work showed progression from stage 3 to stage 4 CKD. - Farxiga discontinued on October 01 due to declining kidney function. - No discussions of dialysis at this time. 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 Brumfield Benign hypertension 07/01/2015 BPPV (benign paroxysmal positional vertigo), unspecified laterality 04/11/2017 CKD (chronic kidney disease) stage 3, GFR 30-59 ml/min ([facility]) Fibrocystic breast disease (FCBD) in female 07/01/2015 Gastroesophageal reflux disease 07/01/2015 Gastrointestinal bleed duodenal ulcer Herpes zoster keratoconjunctivitis 07/01/2015 Hyperlipidemia 2019 Ischemic cardiomyopathy Neutrophilia 12/22/2016 Normally functioning cardiac pacemaker present 11/01/2018 Paroxysmal atrial flutter (HCC) Presence of permanent cardiac pacemaker 2019 S/P CABG (coronary artery bypass graft) S/P MVR (mitral valve repair) Shingles 12/27/2014 ST elevation (STEMI) myocardial infarction involving left anterior descending coronary artery (HCC) 2019 ALLERGIES Morphine MEDICATIONS Current Outpatient Medications Medication Sig amiodarone (PACERONE) 200 mg tablet Take 1 tablet by mouth every afternoon. furosemide (LASIX) 20 mg tablet Take one tablet daily apixaban (ELIQUIS) 5 mg tab(s) Take 1 tablet by mouth two times a day. acyclovir (ZOVIRAX) 800 mg tablet Take one tablet once a day Cholecalciferol, Vitamin D3, 25 mcg (1,000 unit) cap Take 2 capsules by mouth once daily. spironolactone (ALDACTONE) 25 mg tablet Take 25 mg by mouth once daily. (Patient taking differently: Take 12.5 mg by mouth once daily.) pantoprazole DR (PROTONIX) 40 mg tablet Take 1 tablet by mouth two times a day. carvedilol (COREG) 3.125 mg tablet Take 3.125 mg by mouth two times a day with meals. Vit A,C,H-Sbpq-Jfizjf (ICAPS AREDS) 4,296 mcg-226 mg-90 mg cap Take 1 capsule by mouth once daily. timolol maleate (TIMOPTIC) 0.5 % ophthalmic solution Use 1 Drop in the left eye twice daily. betamethasone dipropionate (DIPROSONE) 0.05 % cream Apply to affected area twice daily as needed. atorvastatin (LIPITOR) 20 mg tablet Take 20 mg by mouth daily at bedtime. COMPOUNDED PRESCRIPTION 1 Drop. Every other day-left eye ferrous sulfate 325 mg (65 mg iron) tablet Take one tablet every other day erythromycin (ROMYCIN) 5 mg/gram (0.5 %) ophthalmic ointment Use 1 application in both eyes daily at bedtime. Difluprednate 0.05 % drop Use 1 Drop in the left eye as directed. Every other day. No current facility-administered medications for this visit. Medications and allergies reviewed by this provider. SOCIAL HISTORY Social History Tobacco Use Smoking status: Former Current packs/day: 0.00 Types: Cigarettes Quit date: 04/30/1967 Years since quittin.6 Smokeless tobacco: Never Vaping Use Vaping status: Never Used Substance Use Topics Alcohol use: No Drug use: Never REVIEW OF SYSTEMS All other reviewed and negative other than HPI. OBJECTIVE: BP 108/66 Pulse (!) 59 Resp 18 Wt 65.3 kg (144 lb) SpO2 94% BMI 25.51 kg/m . Vital signs reviewed by this provider. GENERAL: NAD, alert and oriented. SKIN: Unremarkable, no rash or skin lesions to exposed skin EYES:conjunctiva clear. LUNGS: Clear to auscultation bilaterally, no wheezes/rhonchi/rales. HEART: Regular rate and rhythm, no murmurs. No ectopy. EXTREMITIES: Normal, no deformities, no skin discoloration, no edema. Depression Screening Never done Anxiety Screening Never done DTaP,Tdap,Td Vaccine(1 - Tdap) Never done RSV Vaccine(1 - 1-dose 75+ series) Never done Advance Directive Discussion Never done Medicare Advantage Annual Wellness Visit Never done Influenza Vaccine(1) due on 12/29/2024 Diabetes Screening due on 09/30/2026 Bone Density Screening Completed Pneumococcal Vaccine: 50+ Completed Shingrix Vaccine Discontinued 1. Other congestive heart failure (HCC) (I50.9) 2. Ischemic cardiomyopathy (I25.5) 3. Atrial fibrillation, unspecified type ([facility]) (I48.91) 4. Presence of cardiac pacemaker (Z95.0) 5. FDC (current) use of anticoagulants (Z79.01) 6. watermaster current use of diuretic (Z79.899) - Chronic systolic heart failure with ejection fraction 15% (most recent echo one year ago); BNP elevated but improved compared to previous years. - Dyspnea and balance issues likely secondary to low cardiac output and deconditioning. - Pacemaker functioning appropriately per recent cardiology note. - Reviewed cardiology notes from Dr. Brumfield dated October 29; patient to follow up with cardiology this . - Continue current medication regimen as managed by cardiology: Lasix 20 mg daily, Eliquis for atrial fibrillation. - Educated patient that symptoms are most likely cardiac in origin; no additional labs or interventions indicated at this time. - Follow-up in December. 7. CKD (chronic kidney disease) stage 4, GFR 15-29 ml/min ([facility]) (N18.4) - CKD stage 4 with GFR 15-29 ml/min; kidney function has declined over the past year. - Farxiga discontinued by nephrology due to worsening renal function. - No current discussion of dialysis; continue nephrology follow-up. - Educated patient on the importance of balancing heart failure and kidney management; acknowledged by patient. 8. Iron deficiency anemia, unspecified iron deficiency anemia type (D50.9) - Iron studies stable; no current anemia. - Continue iron supplementation every other day. - Sent prescription for iron to patient's pharmacy. 9. Dizziness and giddiness - ICD9: 780.4, ICD10: R42 - offered PT referral- declines at this time - continue to use cane when ambulating Silvia Longlogval, PROFESSOR OF CHEMICAL ENGINEERING.BRANCH OFFICE MANAGER Prescription instructions reviewed with patient as applicable. Patient advised if symptoms do not improve or if symptoms worsen sooner, to contact their primary care physician. Potential red flag symptoms discussed with the patient. Reviewed appropriate action plan to take if red flag symptoms occur. Patient agreeable to treatment plan. [id number] OVERALL COMPLEXITY Problem Complexity: High Data Level: Low Risk Level: Moderate Overall MDM complexity (2/3 must be met or exceeded): Moderate PROBLEMS SECTION: 1. Other congestive heart failure (HCC) - Chronic illness with severe exacerbation, progression, or side effects of treatment 2. Ischemic cardiomyopathy - Chronic illness with severe exacerbation, progression, or side effects of treatment 3. Atrial fibrillation, unspecified type (HCC) - Stable, Chronic Illness 4. Presence of cardiac pacemaker - Stable, Chronic Illness 5. watermaster (current) use of anticoagulants - Not applicable 6. FDC current use of diuretic - Not applicable 7. CKD (chronic kidney disease) stage 4, GFR 15-29 ml/min (HCC) - Chronic illness with severe exacerbation, progression, or side effects of treatment 8. Iron deficiency anemia, unspecified iron deficiency anemia type - Stable, Chronic Illness One or more chronic illnesses with severe exacerbation, progression, or side effects of treatment (High complexity) Problem complexity level: High DATA SECTION: - Review of prior external note(s) from each unique source: Yes, cardiology notes from Dr. Haq - Review of the result(s) of each unique test: - Ordering of each unique test: - Assessment requiring an independent historian(s): - Independent interpretation of a test performed by another physician/other qualified health medicare interviewer: - Discussion of management or test interpretation with external physician/other qualified health medicare interviewer/appropriate source: Data complexity level: Limited; meets Category 1 with any combination of two (review of prior external note) RISKS SECTION: Prescription drug management (continuation of Lasix and Eliquis for heart failure and atrial fibrillation) - Moderate complexity Prescription drug management (prescription for iron supplementation) - Moderate complexity Risks complexity level (highest from above): Moderate documented in this encounter [facility] 11-22-2024 Radiology Diagnostic study note [facility] Imaging Services [address], [place] [address] Chest PA and Lateral MR#: [id number] Acct: [id number] Name: DAYANA QUIÑONES Rep #: [id number] : 1940 F 84 From: Asia Johnson MD PCP: Dr. Luiz Avery MD Status: REG CL Study:Chest PA and Lateral Date of Exam: 11/21/24 Exam# [id number] Ordering Dr: Kinga Adames PA PA EXAM: XR Chest, 2 Views CLINICAL INDICATION: SHORTNESS OF BREATH TECHNIQUE: Frontal and lateral views of the chest. COMPARISON: No relevant prior studies available. FINDINGS: LUNGS AND PLEURAL SPACES: See below. HEART: Cardiomegaly with mild congestion. MEDIASTINUM: Unremarkable. Normal mediastinal contour. BONES/JOINTS: Unremarkable. No acute fracture. TUBES, LINES AND DEVICES: Left-sided cardiac pacemaker. RAD/Chest PA and Lateral IMPRESSION: Cardiomegaly with mild congestion. Reading Location: [id number] CC: Dr. 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 December 04, 2024 8:57am Chronic anemia chronic November 8:57am Essential (primary) hypertension chronic December 04, 2024 8:57am Paroxysmal atrial flutter chronic December 04, 2024 8:57am Presence of permanent cardiac pacemaker August 02, 2018 chronic December 04, 2024 8:57am Mobitz (type) II atrioventricular block chronic January 19, 2025 3:22pm Presence of permanent cardiac pacemaker August 02, 2018 chronic January 19, 2025 3:22pm [facility] Work Phone: 1(731) 210-773907-02-2025 Evaluation note* Diagnosis Onset Date Resolution Status Admit Date Non-ischemic cardiomyopathy acute October 29, 2024 11:06am S/P mitral valve repair acute 2024 11:06am 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 chronic October 11:06am Chronic anemia chronic October 29, 2024 11:06am Essential (primary) hypertension chronic October 29, 2024 11:06am Paroxysmal atrial flutter chronic October 29, 2024 11:06am Presence of permanent cardiac pacemaker August 02, 2018October 29, 2024 11:06am Anemia resolved November 04, 2024 8:22am GI bleed resolved November 04, 2024 8:22am Non-ischemic cardiomyopathy acute December 04, 2024 8:57am S/P mitral valve repair acute A ug2024 8:57am 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 chronic December 042024 8:57am Chronic anemia chronic November 8:57am Essential (primary) hypertension chronic December 04, 2024 8:57am Paroxysmal atrial flutter chronic December 04, 2024 8:57am Presence of permanent cardiac pacemaker August 02, 2018 chronic December 04 8:57am Mobitz (type) II atrioventricular block chronic January 19, 2025 3:22pm Presence of permanent cardiac pacemaker August 02, 2018 chronic December 3:22pm [employer] Work Phone: 1(942) 895-274806-18-2025 NoteHNO ID: [id number] Author: JOSE JUAN LEWIS RN Service: ? Author Type: Registered Nurse Type: Progress Notes Filed: 10/15/2024 16:21 Note Text: [facility] Care Path Telephonic Outreach Provider Action/FYI Patient identified by Name and Date of . Discussed care with patient. Patient reports she is doing well. Education topics completed. Patient had no questions or concerns. Patient will be graduated from [facility]. Patient aware moving forward she can contact [facility] for any needs or concerns. Program Details Chronic Disease Management Status: Enrolled Effective Dates: 06/19/2024 - present Responsible Staff: Jose Juan Lewis RN Support and Services: Hypertension, Congestive Heart Failure (CHF), Chronic Kidney Disease (CKD) Program Goals Targets Target Due Completed Completed By Outcome Comprehensive CHF education provided 09/16/2024 10/15/2024 Jose Juan Lewis RN Complete CKD lab care gaps addressed 09/16/2024 10/02/2024 Jose Juan Lewis RN Complete/Scheduled Comprehensive CKD education provided 09/16/2024 10/02/2024 Jose Juan Lewis RN Complete Comprehensive HTN education provided 09/16/2024 09/18/2024 Jose Juan Lewis RN Complete HTN lab care gaps addressed 09/16/2024 09/18/2024 Jose Juan Lewis RN Complete/Scheduled Annual Nephrology visit addressed 09/16/2024 07/07/2024 Jose Juan Lewis RN Complete/Scheduled Biannual Cardiology visit addressed 09/16/2024 07/07/2024 Jose Juan Lewis RN Complete/Scheduled Biannual PCP visit addressed 09/16/2024 07/07/2024 Jose Juan Lewis RN Complete/Scheduled Patient-stated goal addressed (add comment) 09/16/2024 07/07/2024 Jose Juan Lewis RN -- To get outside and enjoy the beautiful sunshine. General education provided (managing stress, where to go/how to contact, etc.) 07/17/2024 06/19/2024 Ward Morales RN Complete H@H number given Intake assessments completed: ADLs, Fall Risk, SDOH 07/17/2024 06/19/2024 Ward Morales RN Complete Annual Medicare Wellness visit addressed 09/16/2024 06/19/2024 Ward Morales RN Complete/Scheduled Scheduled for 01/07/25 Assessments CDM Assessment Medications: Do you have any questions about taking your medications or which medications you should be taking?: No Do you need any medication refills at this time, including any of the medication you might take only when needed?: No Social: It can be normal to feel anxious or down during a time like this. Would you like to talk to a mental health professional about how you have been feeling?: No Symptoms: Are you experiencing any new or worsening symptoms that you need to talk about today?: No ADLs No documentation this encounter Fall Risk No documentation this encounter SDOH No documentation this encounter Interventions The following were addressed during this visit: - Comprehensive CHF education provided - Month 3: Provide CHF Education: Activity Guidelines/Exercise - Bi-Weekly Outreach (Recurring) Disposition Based on internet marketing consultant, the following disposition is advised: No action needed Jose Juan Lewis RN October 15, 2024 4:20 [facility]2025 History of Present illness Narrative* Jose Juan Lewis RN - 10/15/2024 4:20 PM EDT Images from the original note were not included. CDM Care Path Telephonic Outreach Provider Action/FYI Patient identified by Name and Date of . Discussed care with patient. Patient reports she is doing well. Education topics completed. Patient had no questions or concerns. Patient will be graduated from [facility]. Patient aware moving forward she can contact [facility] for any needs or concerns. Program Details Chronic Disease Management Status: Enrolled Effective Dates: 06/19/2024 - present Responsible Staff: Jose Juan Lewis RN Support and Services: Hypertension, Congestive Heart Failure (CHF), Chronic Kidney Disease (CKD) Program Goals Targets Target Due Completed Completed By Outcome Comprehensive CHF education provided 09/16/2024 10/15/2024 Jose Juan Lewis RN Complete CKD lab care gaps addressed 09/16/2024 10/02/2024 Jose Juan Lewis RN Complete/Scheduled Comprehensive CKD education provided 09/16/2024 10/02/2024 Jose Juan Lewis RN Complete Comprehensive HTN education provided 09/16/2024 09/18/2024 Jose Juan Lewis RN Complete HTN lab care gaps addressed 09/16/2024 09/18/2024 Jose Juan Lewis RN Complete/Scheduled Annual Nephrology visit addressed 09/16/2024 07/07/2024 Jose Juan Lewis RN Complete/Scheduled Biannual Cardiology visit addressed 09/16/2024 07/07/2024 Jose Juan Lewis RN Complete/Scheduled Biannual PCP visit addressed 09/16/2024 07/07/2024 Jose Juan Lewis RN Complete/Scheduled Patient-stated goal addressed (add comment) 09/16/2024 07/07/2024 Jose Juan Lewis RN -- To get outside and enjoy the beautiful sunshine. General education provided (managing stress, where to go/how to contact, etc.) 07/17/2024 06/19/2024 Ward Morales RN Complete H@H number given Intake assessments completed: ADLs, Fall Risk, SDOH 07/17/2024 06/19/2024 Ward Morales RN Complete Annual Medicare Wellness visit addressed 09/16/2024 06/19/2024 Ward Morales RN Complete/Scheduled Scheduled for 01/07/25 Assessments CD Assessment Medications: Do you have any questions about taking your medications or which medications you should be taking?:No Do you need any medication refills at this time, including any of the medication you might take only when needed?: No Social: It can be normal to feel anxious or down during a time like this. Would you like to talk to a mental health professional about how you have been feeling?: No Symptoms: Are you experiencing any new or worsening symptoms that you need to talk about today?: No ADLs No documentation this encounter Fall Risk No documentation this encounter SDOH No documentation this encounter Interventions The following were addressed during this visit: - Comprehensive CHF education provided - Month 3: Provide CHF Education: Activity Guidelines/Exercise - Bi-Weekly Outreach (Recurring) Disposition Based on internet marketing consultant, the following disposition is advised: No action needed Jose Juan Lewis RN October 15, 2024 4:20 [facility] NotePatient Outreach ([facility]) DAYANA QUIÑONES ([id number]) 1940 F Date Time Provider Department 10/15/24 JOSE JUAN LEWIS [facility] During your visit today, we recorded the following information about you: Jose Juan Lewis RN 10/15/2024 4:21 PM Signed [facility] Care Path Telephonic Outreach Provider Action/FYI Patient identified by Name and Date of . Discussed care with patient. Patient reports she is doing well. Education topics completed. Patient had no questions or concerns. Patient will be graduated from [facility]. Patient aware moving forward she can contact [facility] for any needs or concerns. Program Details Chronic Disease Management Status: Enrolled Effective Dates: 06/19/2024 - present Responsible Staff: Jose Juan Lewis RN Support and Services: Hypertension, Congestive Heart Failure (CHF), Chronic Kidney Disease (CKD) Program Goals Targets Target Due Completed Completed By Outcome Comprehensive CHF education provided 09/16/2024 10/15/2024 Jose Juan Lewis RN Complete CKD lab care gaps addressed 09/16/2024 10/02/2024 Jose Juan Lewis RN Complete/Scheduled Comprehensive CKD education provided 09/16/2024 10/02/2024 Jose Juan Lewis RN Complete Comprehensive HTN education provided 09/16/2024 09/18/2024 Jose Juan Lewis RN Complete HTN lab care gaps addressed 09/16/2024 09/18/2024 Jose Juan Lewis RN Complete/Scheduled Annual Nephrology visit addressed 09/16/2024 07/07/2024 Jose Juan Lewis RN Complete/Scheduled Biannual Cardiology visit addressed 09/16/2024 07/07/2024 Jose Juan Lewis RN Complete/Scheduled Biannual PCP visit addressed 09/16/2024 07/07/2024 Jose Juan Lewis RN Complete/Scheduled Patient-stated goal addressed (add comment) 09/16/2024 07/07/2024 Jose Juan Lewis RN -- To get outside and enjoy the beautiful sunshine. General education provided (managing stress, where to go/how to contact, etc.) 07/17/2024 06/19/2024 Ward Morales RN Complete H@H number given Intake assessments completed: ADLs, Fall Risk, SDOH 07/17/2024 06/19/2024 Ward Morales RN Complete Annual Medicare Wellness visit addressed 09/16/2024 06/19/2024 Wrad Morales RN Complete/Scheduled Scheduled for 01/07/25 Assessments CDM Assessment Medications: Do you have any questions about taking your medications or which medications you should be taking?: No Do you need any medication refills at this time, including any of the medication you might take only when needed?: No Social: It can be normal to feel anxious or down during a time like this. Would you like to talk to a mental health professional about how you have been feeling?: No Symptoms: Are you experiencing any new or worsening symptoms that you need to talk about today?: No ADLs No documentation this encounter Fall Risk No documentation this encounter SDOH No documentation this encounter Interventions The following were addressed during this visit: - Comprehensive CHF education provided - Month 3: Provide CHF Education: Activity Guidelines/Exercise - Bi-Weekly Outreach (Recurring) Disposition Based on internet marketing consultant, the following disposition is advised: No action needed Jose Juan Lewis RN October 15, 2024 4:20 PM Allergies As of Date: 10/15/2024 Noted Allergy Reaction MORPHINE 01/11/2017 8 - GI Upset 11 - Vomiting Date Reviewed: 07/04/2024 Reviewed by: Kinga Chilel LPN - Fully Assessed Prescriptions as of 10/15/2024 - amiodarone (PACERONE) 200 mg tablet Take 1 tablet by mouth every afternoon. - ferrous sulfate 325 mg (65 mg iron) tablet Take one tablet every other day - furosemide (LASIX) 20 mg tablet Take one tablet daily - apixaban (ELIQUIS) 5 mg tab(s) Take 1 tablet by mouth two times a day. - acyclovir (ZOVIRAX) 800 mg tablet Take one tablet once a day - erythromycin (ROMYCIN) 5 mg/gram (0.5 %) ophthalmic ointment Use 1 application in both eyes daily at bedtime. - Cholecalciferol, Vitamin D3, 25 mcg (1,000 unit) cap Take 2 capsules by mouth once daily. - spironolactone (ALDACTONE) 25 mg tablet Take 25 mg by mouth once daily. - pantoprazole DR (PROTONIX) 40 mg tablet Take 1 tablet by mouth two times a day. - carvedilol (COREG) 3.125 mg tablet Take 3.125 mg by mouth two times a day with meals. - Vit A,C,G-Mztz-Lbvioz (ICAPS AREDS) 4,296 mcg-226 mg-90 mg cap Take 1 capsule by mouth once daily. - dapagliflozin propanediol (FARXIGA) 10 mg tablet Take 10 mg by mouth daily with breakfast. - timolol maleate (TIMOPTIC) 0.5 % ophthalmic [...] eye as directed. Every other day. - COMPOUNDED PRESCRIPTIO (more content not included)...[facility]06-05-2025 NoteHNO ID: [id number] Author: JOSE JUAN LEWIS RN Service: ? Author Type: Registered Nurse Type: Progress Notes Filed: 10/02/2024 14:28 Note Text: CDM Care Path Telephonic Outreach Provider Action/FYI Patient identified by Name and Date of . Discussed care with patient. Patient had appointment yesterday with her Cardiology group [facility] Cardiology. She also saw her Pecan Picker Dr. Guzman yesterday. Her Osteopathic Physician adjusted her water pill per patient due to recent dizziness. Patient has Cardiology follow up scheduled for 11-03-24. Patient does experience intermittent SOB but only with extreme activity. Patient does check weight at home and knows to contact her Osteopathic Physician for any weight gain of three pounds or more. Patient checks her blood pressure daily and it runs 101 to 115 systolic over 62 diastolic. Program Details Chronic Disease Management Status: Enrolled Effective Dates: 06/19/2024 - present Responsible Staff: Jose Juan Lewis RN Support and Services: Hypertension, Congestive Heart Failure (CHF), Chronic Kidney Disease (CKD) Program Goals Targets Target Due Completed Completed By Outcome Comprehensive CHF education provided 09/16/2024 -- -- -- CKD lab care gaps addressed 09/16/2024 10/02/2024 Jose Juan Lewis RN Complete/Scheduled Comprehensive CKD education provided 09/16/2024 10/02/2024 Jose Juan Lewis RN Complete Comprehensive HTN education provided 09/16/2024 09/18/2024 Jose Juan Lewis RN Complete HTN lab care gaps addressed 09/16/2024 09/18/2024 Jose Juan Lewis RN Complete/Scheduled Annual Nephrology visit addressed 09/16/2024 07/07/2024 Jose Juan Lewis RN Complete/Scheduled Biannual Cardiology visit addressed 09/16/2024 07/07/2024 Jose Juan Lewis RN Complete/Scheduled Biannual PCP visit addressed 09/16/2024 07/07/2024 Jose Juan Lewis RN Complete/Scheduled Patient-stated goal addressed (add comment) 09/16/2024 07/07/2024 Jose Juan Lewis RN -- To get outside and enjoy the beautiful sunshine. General education provided (managing stress, where to go/how to contact, etc.) 07/17/2024 06/19/2024 Ward Morales, RN Complete H@H number given Intake assessments completed: ADLs, Fall Risk, SDOH 07/17/2024 06/19/2024 Ward Morales RN Complete Annual Medicare Wellness visit addressed 09/16/2024 06/19/2024 Ward Morales RN Complete/Scheduled Scheduled for 01/07/25 Assessments [facility] Assessment Medications: Do you have any questions about taking your medications or which medications you should be taking?: No Do you need any medication refills at this time, including any of the medication you might take only when needed?: No Social: It can be normal to feel anxious or down during a time like this. Would you like to talk to a mental health professional about how you have been feeling?: No Symptoms: Are you experiencing any new or worsening symptoms that you need to talk about today?: Yes ADLs No documentation this encounter Fall Risk No documentation this encounter SDOH No documentation this encounter Interventions The following were addressed during this visit: - Month 2: Provide CHF Education: Diet Modifications - Month 2: Provide HTN Education: Sodium Controlled Diets - Month 2: Provide HTN Education: High Blood Pressure AND Nutrition - Comprehensive CKD education provided - CKD lab care gaps addressed - Month 1: Provide CKD Education: CKD Zones - Month 1: Provide CKD Education: About CKD - Month 2: Provide CKD Education: Renal Diet Basics - Month 2: Provide CKD Education: Controlling Potassium - Bi-Weekly Outreach (Recurring) Disposition Based on internet marketing consultant, the following disposition is advised: No action needed Jose Juan Lewis RN October 02, 2024 2:18 [facility]06-05-2025 History of Present illness Narrative* Jose Juan Lewis, RN - 10/02/2024 2:16 PM EDT Images from the original note were not included. CD Care Path Telephonic Outreach Provider Action/FYI Patient identified by Name and Date of . Discussed care with patient. Patient had appointment yesterday with her Cardiology group [facility] Cardiology. She also saw her Pecan Picker Dr. Guzman yesterday. Her Osteopathic Physician adjusted her water pill per patient due to recent dizziness. Patient has Cardiology follow up scheduled for 11-03-24. Patient does experience intermittent SOB but only with extreme activity. Patient does check weight at home and knows to contact her Osteopathic Physician for any weight gain of three pounds or more. Patient checks her blood pressure daily and it runs 101 to 115 systolic over 62 diastolic. Program Details Chronic Disease Management Status: Enrolled Effective Dates: 06/19/2024 - present Responsible Staff: Jose Juan Lewis RN Support and Services: Hypertension, Congestive Heart Failure (CHF), Chronic Kidney Disease (CKD) Program Goals Targets Target Due Completed Completed By Outcome Comprehensive CHF education provided 09/16/2024 -- -- -- CKD lab care gaps addressed 09/16/2024 10/02/2024 Jose Juan Lewis RN Complete/Scheduled Comprehensive CKD education provided 09/16/2024 10/02/2024 Jose Juan Lewis RN Complete Comprehensive HTN education provided 09/16/2024 09/18/2024 Jose Juan Lewis RN Complete HTN lab care gaps addressed 09/16/2024 09/18/2024 Jose Juan Lewis RN Complete/Scheduled Annual Nephrology visit addressed 09/16/2024 07/07/2024 Jose Juan Lewis RN Complete/Scheduled Biannual Cardiology visit addressed 09/16/2024 07/07/2024 Jose Juan Lewsi RN Complete/Scheduled Biannual PCP visit addressed 09/16/2024 07/07/2024 Jose Juan Lewis RN Complete/Scheduled Patient-stated goal addressed (add comment) 09/16/2024 07/07/2024 Jose Juan Lewis RN -- To get outside and enjoy the beautiful sunshine. General education provided (managing stress, where to go/how to contact, etc.) 07/17/2024 06/19/2024 Ward Morales RN Complete H@H number given Intake assessments completed: ADLs, Fall Risk, SDOH 07/17/2024 06/19/2024 Ward Morales RN Complete Annual Medicare Wellness visit addressed 09/16/2024 06/19/2024 Ward Morales RN Complete/Scheduled Scheduled for 01/07/25 Assessments [facility] Assessment Medications: Do you have any questions about taking your medications or which medications you should be taking?:No Do you need any medication refills at this time, including any of the medication you might take only when needed?: No Social: It can be normal to feel anxious or down during a time like this. Would you like to talk to a mental health professional about how you have been feeling?: No Symptoms: Are you experiencing any new or worsening symptoms that you need to talk about today?: Yes ADLs No documentation this encounter Fall Risk No documentation this encounter SDOH No documentation this encounter Interventions The following were addressed during this visit: - Month 2: Provide CHF Education: Diet Modifications - Month 2: Provide HTN Education: Sodium Controlled Diets - Month 2: Provide HTN Education: High Blood Pressure & Nutrition - Comprehensive CKD education provided - CKD lab care gaps addressed - Month 1: Provide CKD Education: CKD Zones - Month 1: Provide CKD Education: About CKD - Month 2: Provide CKD Education: Renal Diet Basics - Month 2: Provide CKD Education: Controlling Potassium - Bi-Weekly Outreach (Recurring) Disposition Based on internet marketing consultant, the following disposition is advised: No action needed Jose Juan Lewis RN October 02, 2024 2:18 PM [facility] NoteHNO ID: [id number] Author: JOSE JUAN LEWIS RN Service: ? Author Type: Registered Nurse Type: Progress Notes Filed: 10/02/2024 14:34 Note Text: Value based Operations Care Management Heart Failure Guideline Directed Medical Therapy (GDMT) Program Provider Action / FYI: Chart Review Guideline Directed Medical Therapy (GDMT) Program Last HF admission: 03-16-23 GDMT Score: 5 Last Echocardiogram: 11-12-23 Ejection Fraction: 15 Basic Metabolic Panel (BMP): Renal function panel [facility] 10-01-24 Estimated Glomerular Filtration Rate (eGFR): 28 N-terminal pro B-type natriuretic peptide (NT proBNP): 08-07-23 result was 6,563 Heart Failure (HF) Diagnosis: 03/29/23 Heart Failure Status: EF < 30 % eGFR < 30 and ambulatory GDMT score < 6 and Non Dialysis Action Taken: GDMT score is <=6 and EF <=40% - CHF GDMT Care Path in addition to CHF Care Path CHF GDMT Care Path Patient Outreach Date of contact: October 02, 2024 Outer Diameter Grinder: Jose Juan Lewis RN Contact Made and Method of Contact: First attempt Yes, phone call answered Karishma, this is Jose Juan Lewis RN, I am a nurse intensive care unit registered nurse calling from the [facility]. I'm calling on a recorded line for quality and assurance purposes. May I please speak with Dayana Quiñones? Is the patient available to speak with Web Services Developer? Yes Jose M Anne, I hope you are having a nice day. Is now a good time to talk for just a few minutes? Yes Great! To make sure I'm speaking with the right person; can you please confirm your full name and date of ? Patient identified by name and date of : Yes Thank you so much. I'd like to confirm who your heart doctor (mold sander) is, see if you have any upcoming appointments or if you need to schedule one, and check if you are due for any lab work or a heart ultrasound, which is called an echocardiogram. This is just part of making sure we're keeping a close eye on your heart and helping prevent any problems. Cardiology Information Do you currently see a heart doctor, also called a mold sander? Yes - Osteopathic Physician not at [facility] Osteopathic Physician: [facility] Dr. Brumfield or associate Last Cardiology Appointment: yesterday Does patient have upcoming cardiology appointment: Yes - Next cardiology appointment: 11-03-24 Cardiac Imaging and Laboratory Studies Was Echocardiogram Completed in the Last 2 Years: Yes Was BMP and NT proBNP Completed in the Last 2 Years: Yes Action Taken: No Action Taken Jose Juan Lewis RN October 02, 2024 2:07 [facility]06-05-2025 History of Present illness Narrative* Jose Juan Lewis RN - 10/02/2024 1:38 PM EDT Value based Operations Care Management Heart Failure Guideline Directed Medical Therapy (GDMT) Program Provider Action / FYI: Chart Review Guideline Directed Medical Therapy (GDMT) Program Last HF admission: 03-16-23 GDMT Score: 5 Last Echocardiogram: 11-12-23 Ejection Fraction: 15 Basic Metabolic Panel (BMP): Renal function panel [facility] 10-01-24 Estimated Glomerular Filtration Rate (eGFR): 28 N-terminal pro B-type natriuretic peptide (NT proBNP): 08-07-23 result was 6,563 Heart Failure (HF) Diagnosis: 03/29/23 Heart Failure Status: EF < 30 % eGFR < 30 and ambulatory GDMT score < 6 and Non Dialysis Action Taken: GDMT score is <=6 and EF <=40% - CHF GDMT Care Path in addition to CHF Care Path CHF GDMT Care Path Patient Outreach Date of contact: October 02, 2024 Outer Diameter Grinder: Jose Juan Lewis RN Contact Made and Method of Contact: First attempt Yes, phone call answered Karishma, this is Jose Juan Lewis, RN, I am a nurse intensive care unit registered nurse calling from the [facility]. I'm calling on a recorded line for quality and assurance purposes. May I please speak with Dayana Quiñones? Is the patient available to speak with Web Services Developer? Yes Hi Dayana, I hope you are having a nice day. Is now a good time to talk for just a few minutes? Yes Great! To make sure I'm speaking with the right person; can you please confirm your full name and date of ? Patient identified by name and date of : Yes Thank you so much. I'd like to confirm who your heart doctor (mold sander) is, see if you have any upcoming appointments or if you need to schedule one, and check if you are due for any lab work ora heart ultrasound, which is called an echocardiogram. This is just part of making sure we're keeping a close eye on your heart and helping prevent any problems. Cardiology Information Do you currently see a heart doctor, also called a mold sander? Yes - Osteopathic Physician not at [facility] Osteopathic Physician: [facility] Dr. Brumfield or associate Last Cardiology Appointment: yesterday Does patient have upcoming cardiology appointment: Yes - Next cardiology appointment: 11-03-24 Cardiac Imaging and Laboratory Studies Was Echocardiogram Completed in the Last 2 Years: Yes Was BMP and NT proBNP Completed in the Last 2 Years: Yes Action Taken: No Action Taken Jose Juan Lewis RN October 02, 2024 2:07 PM [facility] NotePatient Outreach ([facility]) NURIADAYANA ([id number]) 1940 F Date Time Provider Department 10/02/24 JOSE JUAN LEWIS During your visit today, we recorded the following information about you: Jose Juan Lewis, RN 10/02/2024 2:34 PM Addendum Value based Operations Care Management Heart Failure Guideline Directed Medical Therapy (GDMT) Program Provider Action / FYI: Chart Review Guideline Directed Medical Therapy (GDMT) Program Last HF admission: 03-16-23 GDMT Score: 5 Last Echocardiogram: 11-12-23 Ejection Fraction: 15 Basic Metabolic Panel (BMP): Renal function panel [facility] 10-01-24 Estimated Glomerular Filtration Rate (eGFR): 28 N-terminal pro B-type natriuretic peptide (NT proBNP): 08-07-23 result was 6,563 Heart Failure (HF) Diagnosis: 03/29/23 Heart Failure Status: EF < 30 % eGFR < 30 and ambulatory GDMT score < 6 and Non Dialysis Action Taken: GDMT score is <=6 and EF <=40% - CHF GDMT Care Path in addition to CHF Care Path CHF GDMT Care Path Patient Outreach Date of contact: October 02, 2024 Outer Diameter Grinder: Jose Juan Lewis RN Contact Made and Method of Contact: First attempt Yes, phone call answered Robertlo, this is Jose Juan Lewis, RN, I am a nurse intensive care unit registered nurse calling from the [facility]. I'm calling on a recorded line for quality and assurance purposes. May I please speak with Dayana Quiñones? Is the patient available to speak with Web Services Developer? Yes Jose M Anne, I hope you are having a nice day. Is now a good time to talk for just a few minutes? Yes Great! To make sure I'm speaking with the right person; can you please confirm your full name and date of ? Patient identified by name and date of : Yes Thank you so much. I'd like to confirm who your heart doctor (mold sander) is, see if you have any upcoming appointments or if you need to schedule one, and check if you are due for any lab work or a heart ultrasound, which is called an echocardiogram. This is just part of making sure we're keeping a close eye on your heart and helping prevent any problems. Cardiology Information Do you currently see a heart doctor, also called a mold sander? Yes - Osteopathic Physician not at [facility] Osteopathic Physician: [facility] Dr. Brumfield or associate Last Cardiology Appointment: yesterday Does patient have upcoming cardiology appointment: Yes - Next cardiology appointment: 11-03-24 Cardiac Imaging and Laboratory Studies Was Echocardiogram Completed in the Last 2 Years: Yes Was BMP and NT proBNP Completed in the Last 2 Years: Yes Action Taken: No Action Taken Jose Juan Lewis RN October 02, 2024 2:07 PM Allergies As of Date: 10/02/2024 Noted Allergy Reaction MORPHINE 01/11/2017 8 - GI Upset 11 - Vomiting Date Reviewed: 07/04/2024 Reviewed by: Kinga Chilel LPN - Fully Assessed Reason for Visit: Outer Diameter Grinder - Other [3047] Cmt: Chart review and outreach for CHF GDMT Care Path Prescriptions as of 10/02/2024 - amiodarone (PACERONE) 200 mg tablet Take 1 tablet by mouth every afternoon. - ferrous sulfate 325 mg (65 mg iron) tablet Take one tablet every other day - furosemide (LASIX) 20 mg tablet Take one tablet daily - apixaban (ELIQUIS) 5 mg tab(s) Take 1 tablet by mouth two times a day. - acyclovir (ZOVIRAX) 800 mg tablet Take one tablet once a day - erythromycin (ROMYCIN) 5 mg/gram (0.5 %) ophthalmic ointment Use 1 application in both eyes daily at bedtime. - Cholecalciferol, Vitamin D3, 25 mcg (1,000 unit) cap Take 2 capsules by mouth once daily. - spironolactone (ALDACTONE) 25 mg tablet Take 25 mg by mouth once daily. - pantoprazole DR (PROTONIX) 40 mg tablet Take 1 tablet by mouth two times a day. - carvedilol (COREG) 3.125 mg tablet Take 3.125 mg by mouth two times a day with meals. - Vit A,C,L-Fial-Dljdgp (ICAPS AREDS) 4,296 mcg-226 mg-90 mg cap Take 1 capsule by mouth once daily. - dapagliflozin propanediol (FARXIGA) 10 mg tablet Take 10 mg by mouth daily with breakfast. - timolol maleate (TIMOPTIC) 0.5 % ophthalmic [...] eye as directed. Every other day. - COMPOUNDED PRESCRIPTION 1 Drop. 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] 07/01/2015 Fibrocystic breast disease (FCBD) in female [N6*07/01/2015 Occult blood positive stool [R19.5] 12/21/2016 Neutrophilia [D72.828] 12/22/2016 12/14/2017 Lichen sclerosus et atrophicus [L90.0] 02/22/2017 BPPV (benign paroxys (more content not included)...[facility] 10-02-2024 NotePatient Outreach ([facility]) DAYANA QUIÑONES ([id number]) 1940 F Date Time Provider Department 10/02/24 JOSE JUAN LEWIS [facility] During your visit today, we recorded the following information about you: Jose Juan Lewis, RN 10/02/2024 2:28 PM Signed [facility] Care Path Telephonic Outreach Provider Action/FYI Patient identified by Name and Date of . Discussed care with patient. Patient had appointment yesterday with her Cardiology group [facility] Cardiology. She also saw her Pecan Picker Dr. Guzman yesterday. Her Osteopathic Physician adjusted her water pill per patient due to recent dizziness. Patient has Cardiology follow up scheduled for 11-03-24. Patient does experience intermittent SOB but only with extreme activity. Patient does check weight at home and knows to contact her Osteopathic Physician for any weight gain of three pounds or more. Patient checks her blood pressure daily and it runs 101 to 115 systolic over 62 diastolic. Program Details Chronic Disease Management Status: Enrolled Effective Dates: 06/19/2024 - present Responsible Staff: Jose Juan Lewis RN Support and Services: Hypertension, Congestive Heart Failure (CHF), Chronic Kidney Disease (CKD) Program Goals Targets Target Due Completed Completed By Outcome Comprehensive CHF education provided 09/16/2024 -- -- -- CKD lab care gaps addressed 09/16/2024 10/02/2024 Jose Juan Lewis RN Complete/Scheduled Comprehensive CKD education provided 09/16/2024 10/02/2024 Jose Juan Lewis RN Complete Comprehensive HTN education provided 09/16/2024 09/18/2024 Jose Juan Lewis RN Complete HTN lab care gaps addressed 09/16/2024 09/18/2024 Jose Juan Lewis RN Complete/Scheduled Annual Nephrology visit addressed 09/16/2024 07/07/2024 Jose Juan Lewis RN Complete/Scheduled Biannual Cardiology visit addressed 09/16/2024 07/07/2024 Jose Juan Lewis RN Complete/Scheduled Biannual PCP visit addressed 09/16/2024 07/07/2024 Jose Juan Lewis RN Complete/Scheduled Patient-stated goal addressed (add comment) 09/16/2024 07/07/2024 Jose Juan Lewis RN -- To get outside and enjoy the beautiful sunshine. General education provided (managing stress, where to go/how to contact, etc.) 07/17/2024 06/19/2024 Ward Morales RN Complete H@H number given Intake assessments completed: ADLs, Fall Risk, SDOH 07/17/2024 06/19/2024 Ward Morales RN Complete Annual Medicare Wellness visit addressed 09/16/2024 06/19/2024 Ward Morales RN Complete/Scheduled Scheduled for 01/07/25 Assessments CDM Assessment Medications: Do you have any questions about taking your medications or which medications you should be taking?: No Do you need any medication refills at this time, including any of the medication you might take only when needed?: No Social: It can be normal to feel anxious or down during a time like this. Would you like to talk to a mental health professional about how you have been feeling?: No Symptoms: Are you experiencing any new or worsening symptoms that you need to talk about today?: Yes ADLs No documentation this encounter Fall Risk No documentation this encounter SDOH No documentation this encounter Interventions The following were addressed during this visit: - Month 2: Provide CHF Education: Diet Modifications - Month 2: Provide HTN Education: Sodium Controlled Diets - Month 2: Provide HTN Education: High Blood Pressure AND Nutrition - Comprehensive CKD education provided - CKD lab care gaps addressed - Month 1: Provide CKD Education: CKD Zones - Month 1: Provide CKD Education: About CKD - Month 2: Provide CKD Education: Renal Diet Basics - Month 2: Provide CKD Education: Controlling Potassium - Bi-Weekly Outreach (Recurring) Disposition Based on internet marketing consultant, the following disposition is advised: No action needed Jose Juan Lewis RN October 02, 2024 2:18 PM Allergies As of Date: 10/02/2024 Noted Allergy Reaction MORPHINE 01/11/2017 8 - GI Upset 11 - Vomiting Date Reviewed: 07/04/2024 Reviewed by: Kinga Chilel LPN - Fully Assessed Prescriptions as of 10/02/2024 - amiodarone (PACERONE) 200 mg tablet Take 1 tablet by mouth every afternoon. - ferrous sulfate 325 mg (65 mg iron) tablet Take one tablet every other day - furosemide (LASIX) 20 mg tablet Take one tablet daily - apixaban (ELIQUIS) 5 mg tab(s) Take 1 tablet by mouth two times a day. - acyclovir (ZOVIRAX) 800 mg tablet Take one tablet once a day - erythromycin (ROMYCIN) 5 mg/gram (0.5 %) ophthalmic ointment Use 1 application in both eyes daily at bedtime. - Cholecalciferol, Vitamin D3, 25 mcg (1,000 unit) cap Take 2 capsules by mouth once daily. - spironolactone (ALDACTONE) 25 mg tablet Take 25 mg by mouth once daily. - pantoprazole DR (PROTONIX) 40 mg tablet Take 1 tablet by mouth two times a day. 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 October 01, 2024 8:28am Chronic anemia chronic October 01, 2024 8:28am Presence of permanent cardia c pacemaker August 02, 2018October 01, 2024 8:28am [facility] Work Phone: 1(317) 803-505706-04-2025 Evaluation note* Diagnosis Onset Date Resolution Status Admit Date Non-ischemic cardiomyopathy acute October 01, 2024 8:28am S/P mitral valve repair acute J [facility] 2024 8:28am 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 chronic October 01, 2024 8:28am Chronic anemia chronic October 01, 2024 8:28am Presence of permanent cardia c pacemaker August 02, 2018October 01, 2024 8:28am Non-ischemic cardiomyopathy acute October 29, 2024 11:06am S/P mitral valve repair acute J [facility] 2024 11:06am 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 October 29, 2024 11:06am Chronic anemia chronic October 29, 2024 11:06am Presence of permanent cardia c pacemaker August 02, 2018October 29, 2024 11:06am [facility] Work Phone: 1(497) 882-394706-04-2025 Evaluation note* Diagnosis Onset Date Resolution Status Admit Date Non-ischemic cardiomyopathy acute October 01, 2024 8:28am S/P mitral valve repair acute J [facility] 2024 8:28am 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 October 01, 2024 8:28am Chronic anemia chronic October 01, 2024 8:28am Presence of permanent cardia c pacemaker August 02, 2018October 01, 2024 8:28am Non-ischemic cardiomyopathy acute October 29, 2024 11:06am S/P mitral valve repair acute J denisa 2024 11:06am 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 October 29, 2024 11:06am Chronic anemia October 29, 2024 11:06am Essential (primary) hypertension October 29, 2024 11:06am Paroxysmal atrial flutter October 29, 2024 11:06am Presence of permanent cardia c pacemaker August 02, 2018October 29, 2024 11:06am [facility] Work Phone: 1(673) 881-308406-04-2025 Evaluation note* Diagnosis Onset Date Resolution Status Admit Date Non-ischemic cardiomyopathy acute October 01, 2024 8:28am S/P mitral valve repair acute J [facility] 2024 8:28am 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 chronic October 01, 2024 8:28am Chronic anemia chronic October 01, 2024 8:28am Presence of permanent cardia c pacemaker August 02, 2018October 01, 2024 8:28am Non-ischemic cardiomyopathy acute October 29, 2024 11:06am S/P mitral valve repair acute J denisa2024 11:06am 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 chronic October 29, 2024 11:06am Chronic anemia chronic October 29, 2024 11:06am Essential (primary) hypertension chronic October 29, 2024 11:06am Paroxysmal atrial flutter chronic October 29, 2024 11:06am Presence of permanent cardia c pacemaker August 02, 2018October 29, 2024 11:06am Anemia acute November 04, 2024 8:22am GI bleed acute November 04, 2024 8:22am [facility] Work Phone: 1([phone]) 691-625206-04-2025 Evaluation note* Diagnosis Onset Date Resolution Status Admit Date Non-ischemic cardiomyopathy acute October 01, 2024 8:28am S/P mitral valve repair acute J [facility] 2024 8:28am 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 chronic October 01, 2024 8:28am Chronic anemia chronic October 01, 2024 8:28am Presence of permanent cardia c pacemaker August 02, 2018October 01, 2024 8:28am Non-ischemic cardiomyopathy acute October 29, 2024 11:06am S/P mitral valve repair acute J denisa2024 11:06am 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 chronic October 29, 2024 11:06am Chronic anemia chronic October 29, 2024 11:06am Essential (primary) hypertension chronic October 29, 2024 11:06am Paroxysmal atrial flutter chronic October 29, 2024 11:06am Presence of permanent cardia c pacemaker August 02, 2018October 29, 2024 11:06am Anemia resolved November 04, 2024 8:22am GI bleed resolved November 04, 2024 8:22am [facility] Work Phone: 1([phone]) 592-158206-04-2025 Evaluation note* Diagnosis Onset Date Resolution Status Admit Date Non-ischemic cardiomyopathy acute October 01, 2024 8:28am S/P mitral valve repair acute J une 2024 8:28am 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 chronic September 8:28am Chronic anemia chronic October 01, 2024 8:28am Presence of permanent cardia c pacemaker August 02, 2018October 01, 2024 8:28am Non-ischemic cardiomyopathy acute October 29, 2024 11:06am S/P mitral valve repair acute J denisa 2024 11:06am 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 chronic October 11:06am Chronic anemia chronic October 29, 2024 11:06am Essential (primary) hypertension chronic October 29, 2024 11:06am Paroxysmal atrial flutter chronic October 29, 2024 11:06am Presence of permanent cardia c pacemaker August 02, 2018October 29, 2024 11:06am Anemia resolved November 04, 2024 8:22am GI bleed resolved November 04, 2024 8:22am Non-ischemic cardiomyopathy acute December 04, 2024 8:57am S/P mitral valve repair acute A ug2024 8:57am 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 chronic December 042024 8:57am Chronic anemia chronic November 8:57am Essential (primary) hypertension chronic December 04, 2024 8:57am Paroxysmal atrial flutter chronic December 04, 2024 8:57am Presence of permanent cardia c pacemaker August 02, 2018 chronic December 04, 2024 8:57am [facility] Work Phone: 1(511) 255-616206-04-2025 Evaluation note* Diagnosis Onset Date Resolution Status Admit Date Non-ischemic cardiomyopathy acute October 01, 2024 8:28am S/P mitral valve repair acute J une 2024 8:28am 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 chronic September 8:28am Chronic anemia chronic October 01, 2024 8:28am Presence of permanent cardiac pacemaker August 02, 2018 chronic October 01, 2024 8:28am Non-ischemic cardiomyopathy acute October 29, 2024 11:06am S/P mitral valve repair acute J denisa 2024 11:06am 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 chronic October 11:06am Chronic anemia chronic October 29, 2024 11:06am Essential (primary) hypertension chronic October 29, 2024 11:06am Paroxysmal atrial flutter chronic October 29, 2024 11:06am Presence of permanent cardiac pacemaker August 02, 2018 chronic October 29, 2024 11:06am Anemia resolved November 04, 2024 8:22am GI bleed resolved November 04, 2024 8:22am Non-ischemic cardiomyopathy acute December 04, 2024 8:57am S/P mitral valve repair acute A ug2024 8:57am 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 chronic December 042024 8:57am Chronic anemia chronic November 8:57am Essential (primary) hypertension chronic December 04, 2024 8:57am Paroxysmal atrial flutter chronic December 04, 2024 8:57am Presence of permanent cardiac pacemaker August 02, 2018 chronic December 04 8:57am Mobitz (type) II atrioventricular block chronic January 19, 2025 3:22pm Presence of permanent cardiac pacemaker August 02, 2018 chronic December 3:22pm [employer] Work Phone: 1(391) 816-307105-22-2025 NoteHNO ID: [id number] Author: JOSE JUAN LEWIS RN Service: ? Author Type: Registered Nurse Type: Progress Notes Filed: 09/18/2024 12:33 Note Text: [facility] Telephonic Outreach Provider Action/FYI Patient identified by Name and Date of . Discussed care with patient. Patient had low blood pressure 4 days ago. She had readings of 85/55 and a few hours later 85/60. Patient denied symptoms of SOB, dizziness, or lightheadedness. She just reports she felt tired. Patient did reach out to her Cardiology Provider to discuss. She reports they told her what to do if BP does not improve. BP the last 3 days are below: 09-16-24 106/69 pulse 61 09-17-24 102/58 pulse 63 09-18-24 114/63 pulse 61 She reports feeling better over the last 3 days. She is back to normal activities. Pulse ox 90 to 93 percent on RA. Patient checking weight daily and it has been steady. Red Flag symptoms addressed with patient and when to seek treatment. Program Details Chronic Disease Management Status: Enrolled Effective Dates: 06/19/2024 - present Responsible Staff: Jose Juan Lewis RN Support and Services: Hypertension, Congestive Heart Failure (CHF), Chronic Kidney Disease (CKD) Program Goals Targets Target Due Completed Completed By Outcome CKD lab care gaps addressed 09/16/2024 -- -- -- Comprehensive CHF education provided 09/16/2024 -- -- -- Comprehensive CKD education provided 09/16/2024 -- -- -- Comprehensive HTN education provided 09/16/2024 09/18/2024 Jose Juan Lewis RN Complete HTN lab care gaps addressed 09/16/2024 09/18/2024 Jose Juan Lewis RN Complete/Scheduled Annual Nephrology visit addressed 09/16/2024 07/07/2024 Jose Juan Lewis RN Complete/Scheduled Biannual Cardiology visit addressed 09/16/2024 07/07/2024 Jose Juan Lewis RN Complete/Scheduled Biannual PCP visit addressed 09/16/2024 07/07/2024 Jose Juan Lewis RN Complete/Scheduled Patient-stated goal addressed (add comment) 09/16/2024 07/07/2024 Jose Juan Lewis RN -- To get outside and enjoy the beautiful sunshine. General education provided (managing stress, where to go/how to contact, etc.) 07/17/2024 06/19/2024 Ward Morales RN Complete H@H number given Intake assessments completed: ADLs, Fall Risk, SDOH 07/17/2024 06/19/2024 Ward Morales RN Complete Annual Medicare Wellness visit addressed 09/16/2024 06/19/2024 Ward Morales RN Complete/Scheduled Scheduled for 01/07/25 Assessments CDM Assessment Medications: Do you have any questions about taking your medications or which medications you should be taking?: No Do you need any medication refills at this time, including any of the medication you might take only when needed?: No Social: It can be normal to feel anxious or down during a time like this. Would you like to talk to a mental health professional about how you have been feeling?: No Symptoms: Are you experiencing any new or worsening symptoms that you need to talk about today?: Yes ADLs No documentation this encounter Fall Risk No documentation this encounter SDOH No documentation this encounter Interventions The following were addressed during this visit: - Month 2: Provide CHF Education: Keeping Track of Your Weight - HTN lab care gaps addressed - Comprehensive HTN education provided - Month 3: Schedule/Order BMP Lab - Month 3: Schedule/Order Renal Panel Lab Biannually - Bi-Weekly Outreach (Recurring) Disposition Based on internet marketing consultant, the following disposition is advised: No action needed Jose Juan Lewis RN September 18, 2024 12:33 [facility]05-22-2025 NotePatient Outreach ([facility]) DAYANA QUIÑONES ([id number]) 1940 F Date Time Provider Department 09/18/24 JOSE JUAN LEWIS [facility] During your visit today, we recorded the following information about you: Jose Juan Lewis, RN 09/18/2024 12:33 PM Addendum [facility] Care Path Telephonic Outreach Provider Action/ Patient identified by Name and Date of . Discussed care with patient. Patient had low blood pressure 4 days ago. She had readings of 85/55 and a few hours later 85/60. Patient denied symptoms of SOB, dizziness, or lightheadedness. She just reports she felt tired. Patient did reach out to her Cardiology Provider to discuss. She reports they told her what to do if BP does not improve. BP the last 3 days are below: 09-16-24 106/69 pulse 61 09-17-24 102/58 pulse 63 09-18-24 114/63 pulse 61 She reports feeling better over the last 3 days. She is back to normal activities. Pulse ox 90 to 93 percent on RA. Patient checking weight daily and it has been steady. Red Flag symptoms addressed with patient and when to seek treatment. Program Details Chronic Disease Management Status: Enrolled Effective Dates: 06/19/2024 - present Responsible Staff: Jose Juan Lewis RN Support and Services: Hypertension, Congestive Heart Failure (CHF), Chronic Kidney Disease (CKD) Program Goals Targets Target Due Completed Completed By Outcome CKD lab care gaps addressed 09/16/2024 -- -- -- Comprehensive CHF education provided 09/16/2024 -- -- -- Comprehensive CKD education provided 09/16/2024 -- -- -- Comprehensive HTN education provided 09/16/2024 09/18/2024 Jose Juan Lewis RN Complete HTN lab care gaps addressed 09/16/2024 09/18/2024 Jose Juan Lewis RN Complete/Scheduled Annual Nephrology visit addressed 09/16/2024 07/07/2024 Jose Juan Lewis RN Complete/Scheduled Biannual Cardiology visit addressed 09/16/2024 07/07/2024 Jose Juan Lewis RN Complete/Scheduled Biannual PCP visit addressed 09/16/2024 07/07/2024 Jose Juan Lewis RN Complete/Scheduled Patient-stated goal addressed (add comment) 09/16/2024 07/07/2024 Jose Juan Lewis RN -- To get outside and enjoy the beautiful sunshine. General education provided (managing stress, where to go/how to contact, etc.) 07/17/2024 06/19/2024 Ward Morales RN Complete H@H number given Intake assessments completed: ADLs, Fall Risk, SDOH 07/17/2024 06/19/2024 Ward Morales RN Complete Annual Medicare Wellness visit addressed 09/16/2024 06/19/2024 Ward Morales RN Complete/Scheduled Scheduled for 01/07/25 Assessments CDM Assessment Medications: Do you have any questions about taking your medications or which medications you should be taking?: No Do you need any medication refills at this time, including any of the medication you might take only when needed?: No Social: It can be normal to feel anxious or down during a time like this. Would you like to talk to a mental health professional about how you have been feeling?: No Symptoms: Are you experiencing any new or worsening symptoms that you need to talk about today?: Yes ADLs No documentation this encounter Fall Risk No documentation this encounter SDOH No documentation this encounter Interventions The following were addressed during this visit: - Month 2: Provide CHF Education: Keeping Track of Your Weight - HTN lab care gaps addressed - Comprehensive HTN education provided - Month 3: Schedule/Order BMP Lab - Month 3: Schedule/Order Renal Panel Lab Biannually - Bi-Weekly Outreach (Recurring) Disposition Based on internet marketing consultant, the following disposition is advised: No action needed Jose Juan Lewis RN September 18, 2024 12:33 PM Allergies As of Date: 09/18/2024 Noted Allergy Reaction MORPHINE 01/11/2017 8 - GI Upset 11 - Vomiting Date Reviewed: 07/04/2024 Reviewed by: Kinga Chilel LPN - Fully Assessed Prescriptions as of 09/18/2024 - amiodarone (PACERONE) 200 mg tablet Take 1 tablet by mouth every afternoon. - ferrous sulfate 325 mg (65 mg iron) tablet Take one tablet every other day - furosemide (LASIX) 20 mg tablet Take one tablet daily - apixaban (ELIQUIS) 5 mg tab(s) Take 1 tablet by mouth two times a day. - acyclovir (ZOVIRAX) 800 mg tablet Take one tablet once a day - erythromycin (ROMYCIN) 5 mg/gram (0.5 %) ophthalmic ointment Use 1 application in both eyes daily at bedtime. - Cholecalciferol, Vitamin D3, 25 mcg (1,000 unit) cap Take 2 capsules by mouth once daily. - spironolactone (ALDACTONE) 25 mg tablet Take 25 mg by mouth once daily. - pantoprazole DR (PROTONIX) 40 mg tablet Take 1 tablet by mouth two times a day. - carvedilol (COREG) 3.125 mg tablet Take 3.125 mg by mouth two times a day with meals. - Vit A,C,C-Sokk-Ztoodh (ICAPS AREDS) 4,296 mcg-226 mg-90 mg cap Take 1 capsule by mouth once daily. - dapagliflozin propane (more content not included)...[facility] 09-05-2024 NoteHNO ID: [id number] Author: JOSE JUAN LEWIS RN Service: ? Author Type: Registered Nurse Type: Progress Notes Filed: 09/05/2024 16:34 Note Text: CDM Care Path Telephonic Outreach Provider Action/FYI Patient identified by Name and Date of . Discussed care with patient. Program Details Chronic Disease Management Status: Enrolled Effective Dates: 06/19/2024 - present Responsible Staff: Jose Juan Lewis RN Support and Services: Hypertension, Congestive Heart Failure (CHF), Chronic Kidney Disease (CKD) Program Goals Targets Target Due Completed Completed By Outcome CKD lab care gaps addressed 09/16/2024 -- -- -- Comprehensive CHF education provided 09/16/2024 -- -- -- Comprehensive CKD education provided 09/16/2024 -- -- -- Comprehensive HTN education provided 09/16/2024 -- -- -- HTN lab care gaps addressed 09/16/2024 -- -- -- Annual Nephrology visit addressed 09/16/2024 07/07/2024 Jose Juan Lewis RN Complete/Scheduled Biannual Cardiology visit addressed 09/16/2024 07/07/2024 Jose Juan Lewis RN Complete/Scheduled Biannual PCP visit addressed 09/16/2024 07/07/2024 Jose Juan Lewis RN Complete/Scheduled Patient-stated goal addressed (add comment) 09/16/2024 07/07/2024 Jose Juan Lewis RN -- To get outside and enjoy the beautiful sunshine. General education provided (managing stress, where to go/how to contact, etc.) 07/17/2024 06/19/2024 Ward Morales RN Complete H@H number given Intake assessments completed: ADLs, Fall Risk, SDOH 07/17/2024 06/19/2024 Ward Morales RN Complete Annual Medicare Wellness visit addressed 09/16/2024 06/19/2024 Ward Morales RN Complete/Scheduled Scheduled for 01/07/25 Assessments CDM Assessment Medications: Do you have any questions about taking your medications or which medications you should be taking?: No Do you need any medication refills at this time, including any of the medication you might take only when needed?: No Social: It can be normal to feel anxious or down during a time like this. Would you like to talk to a mental health professional about how you have been feeling?: No Symptoms: Are you experiencing any new or worsening symptoms that you need to talk about today?: No ADLs No documentation this encounter Fall Risk No documentation this encounter SDOH No documentation this encounter Interventions The following were addressed during this visit: - Month 1: Review Individual Blood Pressure Target (If established by provider) - Month 1: Provide HTN Education: What is High Blood Pressure - Month 1: Provide HTN Education: When to call your Doctor, When to seek Emergency Care - Month 3: Provide HTN Education: Understanding Medications - Month 3: Provide HTN Education: Medication Compliance - Bi-Weekly Outreach (Recurring) Disposition Based on internet marketing consultant, the following disposition is advised: No action needed Jose Juan Lewis RN September 05, 2024 4:23 [facility]05-09-2025 History of Present illness Narrative* Jose Juan Lewis RN - 09/05/2024 4:22 PM EDT Images from the original note were not included. CDM Care Path Telephonic Outreach Provider Action/FYI Patient identified by Name and Date of . Discussed care with patient. Program Details Chronic Disease Management Status: Enrolled Effective Dates: 06/19/2024 - present Responsible Staff: Jose Juan Lewis RN Support and Services: Hypertension, Congestive Heart Failure (CHF), Chronic Kidney Disease (CKD) Program Goals Targets Target Due Completed Completed By Outcome CKD lab care gaps addressed 09/16/2024 -- -- -- Comprehensive CHF education provided 09/16/2024 -- -- -- Comprehensive CKD education provided 09/16/2024 -- -- -- Comprehensive HTN education provided 09/16/2024 -- -- -- HTN lab care gaps addressed 09/16/2024 -- -- -- Annual Nephrology visit addressed 09/16/2024 07/07/2024 Jose Juan Lewis RN Complete/Scheduled Biannual Cardiology visit addressed 09/16/2024 07/07/2024 Jose Juan Lewis RN Complete/Scheduled Biannual PCP visit addressed 09/16/2024 07/07/2024 Jose Juan Lewis RN Complete/Scheduled Patient-stated goal addressed (add comment) 09/16/2024 07/07/2024 Jose Juan Lewis RN -- To get outside and enjoy the beautiful sunshine. General education provided (managing stress, where to go/how to contact, etc.) 07/17/2024 06/19/2024 Ward Morales RN Complete H@H number given Intake assessments completed: ADLs, Fall Risk, SDOH 07/17/2024 06/19/2024 Ward Morales RN Complete Annual Medicare Wellness visit addressed 09/16/2024 06/19/2024 Ward Morales RN Complete/Scheduled Scheduled for 01/07/25 Assessments CDM Assessment Medications: Do you have any questions about taking your medications or which medications you should be taking?:No Do you need any medication refills at this time, including any of the medication you might take only when needed?: No Social: It can be normal to feel anxious or down during a time like this. Would you like to talk to a mental health professional about how you have been feeling?: No Symptoms: Are you experiencing any new or worsening symptoms that you need to talk about today?: No ADLs No documentation this encounter Fall Risk No documentation this encounter SDOH No documentation this encounter Interventions The following were addressed during this visit: - Month 1: Review Individual Blood Pressure Target (If established by provider) - Month 1: Provide HTN Education: What is High Blood Pressure - Month 1: Provide HTN Education: When to call your Doctor, When to seek Emergency Care - Month 3: Provide HTN Education: Understanding Medications - Month 3: Provide HTN Education: Medication Compliance - Bi-Weekly Outreach (Recurring) Disposition Based on internet marketing consultant, the following disposition is advised: No action needed Jose Juan Lewis RN September 05, 2024 4:23 PM [facility] NotePatient Outreach ([facility]) DAYANA QUIÑONES ([id number]) 1940 F Date Time Provider Department 09/05/24 JOSE JUAN LEWIS [facility] During your visit today, we recorded the following information about you: Jose Juan Lewis RN 09/05/2024 4:34 PM Signed CDM Care Path Telephonic Outreach Provider Action/FYI Patient identified by Name and Date of . Discussed care with patient. Program Details Chronic Disease Management Status: Enrolled Effective Dates: 06/19/2024 - present Responsible Staff: Jose Juan Lewis, RN Support and Services: Hypertension, Congestive Heart Failure (CHF), Chronic Kidney Disease (CKD) Program Goals Targets Target Due Completed Completed By Outcome CKD lab care gaps addressed 09/16/2024 -- -- -- Comprehensive CHF education provided 09/16/2024 -- -- -- Comprehensive CKD education provided 09/16/2024 -- -- -- Comprehensive HTN education provided 09/16/2024 -- -- -- HTN lab care gaps addressed 09/16/2024 -- -- -- Annual Nephrology visit addressed 09/16/2024 07/07/2024 Jose Juan Lewis RN Complete/Scheduled Biannual Cardiology visit addressed 09/16/2024 07/07/2024 Jose Juan Lewis RN Complete/Scheduled Biannual PCP visit addressed 09/16/2024 07/07/2024 Jose Juan Lewis RN Complete/Scheduled Patient-stated goal addressed (add comment) 09/16/2024 07/07/2024 Jose Juan Lewis RN -- To get outside and enjoy the beautiful sunshine. General education provided (managing stress, where to go/how to contact, etc.) 07/17/2024 06/19/2024 Ward Morales RN Complete H@H number given Intake assessments completed: ADLs, Fall Risk, SDOH 07/17/2024 06/19/2024 Ward Morales RN Complete Annual Medicare Wellness visit addressed 09/16/2024 06/19/2024 Ward Morales RN Complete/Scheduled Scheduled for 01/07/25 Assessments CD Assessment Medications: Do you have any questions about taking your medications or which medications you should be taking?: No Do you need any medication refills at this time, including any of the medication you might take only when needed?: No Social: It can be normal to feel anxious or down during a time like this. Would you like to talk to a mental health professional about how you have been feeling?: No Symptoms: Are you experiencing any new or worsening symptoms that you need to talk about today?: No ADLs No documentation this encounter Fall Risk No documentation this encounter SDOH No documentation this encounter Interventions The following were addressed during this visit: - Month 1: Review Individual Blood Pressure Target (If established by provider) - Month 1: Provide HTN Education: What is High Blood Pressure - Month 1: Provide HTN Education: When to call your Doctor, When to seek Emergency Care - Month 3: Provide HTN Education: Understanding Medications - Month 3: Provide HTN Education: Medication Compliance - Bi-Weekly Outreach (Recurring) Disposition Based on internet marketing consultant, the following disposition is advised: No action needed Jose Juan Lewis RN September 05, 2024 4:23 PM Allergies As of Date: 09/05/2024 Noted Allergy Reaction MORPHINE 01/11/2017 8 - GI Upset 11 - Vomiting Date Reviewed: 07/04/2024 Reviewed by: Kinga Chilel LPN - Fully Assessed Prescriptions as of 09/05/2024 - amiodarone (PACERONE) 200 mg tablet Take 1 tablet by mouth every afternoon. - ferrous sulfate 325 mg (65 mg iron) tablet Take one tablet every other day - furosemide (LASIX) 20 mg tablet Take one tablet daily - apixaban (ELIQUIS) 5 mg tab(s) Take 1 tablet by mouth two times a day. - acyclovir (ZOVIRAX) 800 mg tablet Take one tablet once a day - erythromycin (ROMYCIN) 5 mg/gram (0.5 %) ophthalmic ointment Use 1 application in both eyes daily at bedtime. - Cholecalciferol, Vitamin D3, 25 mcg (1,000 unit) cap Take 2 capsules by mouth once daily. - spironolactone (ALDACTONE) 25 mg tablet Take 25 mg by mouth once daily. - pantoprazole DR (PROTONIX) 40 mg tablet Take 1 tablet by mouth two times a day. - carvedilol (COREG) 3.125 mg tablet Take 3.125 mg by mouth two times a day with meals. - Vit A,C,M-Gmph-Eyucdn (ICAPS AREDS) 4,296 mcg-226 mg-90 mg cap Take 1 capsule by mouth once daily. - dapagliflozin propanediol (FARXIGA) 10 mg tablet Take 10 mg by mouth daily with breakfast. - timolol maleate (TIMOPTIC) 0.5 % ophthalmic [...] eye as directed. Every other day. - COMPOUNDED PRESCRIPTION 1 Drop. Every other day-left eye Problem List As Of Date 09/05/2024 Noted Resolved Benign hypertension [I10] 07/01/2015 GERD without esophagitis [K21.9] (more content not included)... [facility]04-09-2025 NoteHNO ID: [id number] Author: JOSE JUAN LEWIS RN Service: ? Author Type: Registered Nurse Type: Progress Notes Filed: 08/06/2024 15:33 Note Text: [facility] Care Path Telephonic Outreach Provider Action/FYI Patient identified by Name and Date of . Discussed care with patient. Program Details Chronic Disease Management Status: Enrolled Effective Dates: 06/19/2024 - present Responsible Staff: Jose Juan Lewis RN Support and Services: Hypertension, Congestive Heart Failure (CHF), Chronic Kidney Disease (CKD) Program Goals Targets Target Due Completed Completed By Outcome CKD lab care gaps addressed 09/16/2024 -- -- -- Comprehensive CHF education provided 09/16/2024 -- -- -- Comprehensive CKD education provided 09/16/2024 -- -- -- Comprehensive HTN education provided 09/16/2024 -- -- -- HTN lab care gaps addressed 09/16/2024 -- -- -- Annual Nephrology visit addressed 09/16/2024 07/07/2024 Jose Juan Lewis RN Complete/Scheduled Biannual Cardiology visit addressed 09/16/2024 07/07/2024 Jose Juan Lewis RN Complete/Scheduled Biannual PCP visit addressed 09/16/2024 07/07/2024 Jose Juan Lewis RN Complete/Scheduled Patient-stated goal addressed (add comment) 09/16/2024 07/07/2024 Jose Juan Lewis RN -- To get outside and enjoy the beautiful sunshine. General education provided (managing stress, where to go/how to contact, etc.) 07/17/2024 06/19/2024 Ward Morales RN Complete H@H number given Intake assessments completed: ADLs, Fall Risk, SDOH 07/17/2024 06/19/2024 Ward Morales RN Complete Annual Medicare Wellness visit addressed 09/16/2024 06/19/2024 Ward Moarles RN Complete/Scheduled Scheduled for 01/07/25 Assessments CDM Assessment Medications: Do you have any questions about taking your medications or which medications you should be taking?: No Do you need any medication refills at this time, including any of the medication you might take only when needed?: No Social: It can be normal to feel anxious or down during a time like this. Would you like to talk to a mental health professional about how you have been feeling?: No Symptoms: Are you experiencing any new or worsening symptoms that you need to talk about today?: No ADLs No documentation this encounter Fall Risk No documentation this encounter SDOH No documentation this encounter Interventions The following were addressed during this visit: - Month 1: Provide CHF Education: Understanding Heart Failure - Month 1: Provide CHF Education: Heart Failure Zones - Bi-Weekly Outreach (Recurring) Disposition Based on internet marketing consultant, the following disposition is advised: No action needed Jose Juan Lewis RN August 06, 2024 3:33 [facility] History of Present illness Narrative* Jose Juan Lewis RN - 08/06/2024 3:32 PM EDT Images from the original note were not included. [facility] Care Path Telephonic Outreach Provider Action/FYI Patient identified by Name and Date of . Discussed care with patient. Program Details Chronic Disease Management Status: Enrolled Effective Dates: 06/19/2024 - present Responsible Staff: Jose Juan Lewis, RN Support and Services: Hypertension, Congestive Heart Failure (CHF), Chronic Kidney Disease (CKD) Program Goals Targets Target Due Completed Completed By Outcome CKD lab care gaps addressed 09/16/2024 -- -- -- Comprehensive CHF education provided 09/16/2024 -- -- -- Comprehensive CKD education provided 09/16/2024 -- -- -- Comprehensive HTN education provided 09/16/2024 -- -- -- HTN lab care gaps addressed 09/16/2024 -- -- -- Annual Nephrology visit addressed 09/16/2024 07/07/2024 Jose Juan Lewis RN Complete/Scheduled Biannual Cardiology visit addressed 09/16/2024 07/07/2024 Jose Juan Lewis RN Complete/Scheduled Biannual PCP visit addressed 09/16/2024 07/07/2024 Jose Juan Lewis RN Complete/Scheduled Patient-stated goal addressed (add comment) 09/16/2024 07/07/2024 Jose Juan Lewis RN -- To get outside and enjoy the beautiful sunshine. General education provided (managing stress, where to go/how to contact, etc.) 07/17/2024 06/19/2024 Ward Morales RN Complete H@H number given Intake assessments completed: ADLs, Fall Risk, SDOH 07/17/2024 06/19/2024 Ward Morales RN Complete Annual Medicare Wellness visit addressed 09/16/2024 06/19/2024 Ward Morales RN Complete/Scheduled Scheduled for 01/07/25 Assessments CDM Assessment Medications: Do you have any questions about taking your medications or which medications you should be taking?:No Do you need any medication refills at this time, including any of the medication you might take only when needed?: No Social: It can be normal to feel anxious or down during a time like this. Would you like to talk to a mental health professional about how you have been feeling?: No Symptoms: Are you experiencing any new or worsening symptoms that you need to talk about today?: No ADLs No documentation this encounter Fall Risk No documentation this encounter SDOH No documentation this encounter Interventions The following were addressed during this visit: - Month 1: Provide CHF Education: Understanding Heart Failure - Month 1: Provide CHF Education: Heart Failure Zones - Bi-Weekly Outreach (Recurring) Disposition Based on internet marketing consultant, the following disposition is advised: No action needed Jose Juan Lewis RN August 06, 2024 3:33 PM [facility] NotePatient Outreach ([facility]) DAYANA QUIÑONES ([id number]) 1940 F Date Time Provider Department 08/06/[facility] [place] visit today, we recorded the following information about you: Jose Juan Lewis, RN 08/06/2024 3:33 PM Signed [facility] Care Path Telephonic Outreach Provider Action/ Patient identified by Name and Date of . Discussed care with patient. Program Details Chronic Disease Management Status: Enrolled Effective Dates: 06/19/2024 - present Responsible Staff: Jose Juan Lewis, RN Support and Services: Hypertension, Congestive Heart Failure (CHF), Chronic Kidney Disease (CKD) Program Goals Targets Target Due Completed Completed By Outcome CKD lab care gaps addressed 09/16/2024 -- -- -- Comprehensive CHF education provided 09/16/2024 -- -- -- Comprehensive CKD education provided 09/16/2024 -- -- -- Comprehensive HTN education provided 09/16/2024 -- -- -- HTN lab care gaps addressed 09/16/2024 -- -- -- Annual Nephrology visit addressed 09/16/2024 07/07/2024 Jose Juan Lewis RN Complete/Scheduled Biannual Cardiology visit addressed 09/16/2024 07/07/2024 Jose Juan Lewis RN Complete/Scheduled Biannual PCP visit addressed 09/16/2024 07/07/2024 Jose Juan Lewis RN Complete/Scheduled Patient-stated goal addressed (add comment) 09/16/2024 07/07/2024 Jose Juan Lewis RN -- To get outside and enjoy the beautiful sunshine. General education provided (managing stress, where to go/how to contact, etc.) 07/17/2024 06/19/2024 Ward Morales, RN Complete H@H number given Intake assessments completed: ADLs, Fall Risk, SDOH 07/17/2024 06/19/2024 Ward Morales RN Complete Annual Medicare Wellness visit addressed 09/16/2024 06/19/2024 Ward Morales RN Complete/Scheduled Scheduled for 01/07/25 Assessments CDM Assessment Medications: Do you have any questions about taking your medications or which medications you should be taking?: No Do you need any medication refills at this time, including any of the medication you might take only when needed?: No Social: It can be normal to feel anxious or down during a time like this. Would you like to talk to a mental health professional about how you have been feeling?: No Symptoms: Are you experiencing any new or worsening symptoms that you need to talk about today?: No ADLs No documentation this encounter Fall Risk No documentation this encounter SDOH No documentation this encounter Interventions The following were addressed during this visit: - Month 1: Provide CHF Education: Understanding Heart Failure - Month 1: Provide CHF Education: Heart Failure Zones - Bi-Weekly Outreach (Recurring) Disposition Based on internet marketing consultant, the following disposition is advised: No action needed Jose Juan Lewis RN August 06, 2024 3:33 PM Allergies As of Date: 08/06/2024 Noted Allergy Reaction MORPHINE 01/11/2017 8 - GI Upset 11 - Vomiting Date Reviewed: 07/04/2024 Reviewed by: Kinga Chilel LPN - Fully Assessed Prescriptions as of 08/06/2024 - amiodarone (PACERONE) 200 mg tablet Take 1 tablet by mouth every afternoon. - ferrous sulfate 325 mg (65 mg iron) tablet Take one tablet every other day - furosemide (LASIX) 20 mg tablet Take one tablet daily - apixaban (ELIQUIS) 5 mg tab(s) Take 1 tablet by mouth two times a day. - acyclovir (ZOVIRAX) 800 mg tablet Take one tablet once a day - erythromycin (ROMYCIN) 5 mg/gram (0.5 %) ophthalmic ointment Use 1 application in both eyes daily at bedtime. - Cholecalciferol, Vitamin D3, 25 mcg (1,000 unit) cap Take 2 capsules by mouth once daily. - spironolactone (ALDACTONE) 25 mg tablet Take 25 mg by mouth once daily. - pantoprazole DR (PROTONIX) 40 mg tablet Take 1 tablet by mouth two times a day. - carvedilol (COREG) 3.125 mg tablet Take 3.125 mg by mouth two times a day with meals. - Vit A,C,W-Edvk-Wdlbaw (ICAPS AREDS) 4,296 mcg-226 mg-90 mg cap Take 1 capsule by mouth once daily. - dapagliflozin propanediol (FARXIGA) 10 mg tablet Take 10 mg by mouth daily with breakfast. - timolol maleate (TIMOPTIC) 0.5 % ophthalmic [...] eye as directed. Every other day. - COMPOUNDED PRESCRIPTION 1 Drop. 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 Author Type: Registered Nurse Type: Progress Notes Filed: 07/21/2024 16:41 Note Text: CDM Care Path Telephonic Outreach Provider Action/FYI Patient identified by Name and Date of . Discussed care with patient. Program Details Chronic Disease Management Status: Enrolled Effective Dates: 06/19/2024 - present Responsible Staff: Jose Juan Lewis, RN Support and Services: Hypertension, Congestive Heart Failure (CHF), Chronic Kidney Disease (CKD) Program Goals Targets Target Due Completed Completed By Outcome CKD lab care gaps addressed 09/16/2024 -- -- -- Comprehensive CHF education provided 09/16/2024 -- -- -- Comprehensive CKD education provided 09/16/2024 -- -- -- Comprehensive HTN education provided 09/16/2024 -- -- -- HTN lab care gaps addressed 09/16/2024 -- -- -- Annual Nephrology visit addressed 09/16/2024 07/07/2024 Jose Juan Lewis RN Complete/Scheduled Biannual Cardiology visit addressed 09/16/2024 07/07/2024 Jose Juan Lewis RN Complete/Scheduled Biannual PCP visit addressed 09/16/2024 07/07/2024 Jose Juan Lewis RN Complete/Scheduled Patient-stated goal addressed (add comment) 09/16/2024 07/07/2024 Jose Juan Lewis RN -- To get outside and enjoy the beautiful sunshine. General education provided (managing stress, where to go/how to contact, etc.) 07/17/2024 06/19/2024 Ward Morales RN Complete H@H number given Intake assessments completed: ADLs, Fall Risk, SDOH 07/17/2024 06/19/2024 Ward Morales RN Complete Annual Medicare Wellness visit addressed 09/16/2024 06/19/2024 Ward Morales RN Complete/Scheduled Scheduled for 01/07/25 Assessments CDM Assessment Medications: Do you have any questions about taking your medications or which medications you should be taking?: No Do you need any medication refills at this time, including any of the medication you might take only when needed?: No Social: It can be normal to feel anxious or down during a time like this. Would you like to talk to a mental health professional about how you have been feeling?: No Symptoms: Are you experiencing any new or worsening symptoms that you need to talk about today?: No ADLs No documentation this encounter Fall Risk No documentation this encounter SDOH No documentation this encounter Interventions The following were addressed during this visit: - Month 1: Provide General Education: Smoking Cessation - Bi-Weekly Outreach (Recurring) Disposition Based on internet marketing consultant, the following disposition is advised: No action needed Jose Juan Lewis RN July 21, 2024 4:39 PMCM[facility]03-24-2025 History of Present illness Narrative* Jose Juan Lewis RN - 07/21/2024 4:38 PM EDT Images from the original note were not included. [facility] Care Path Telephonic Outreach Provider Action/FYI Patient identified by Name and Date of . Discussed care with patient. Program Details Chronic Disease Management Status: Enrolled Effective Dates: 06/19/2024 - present Responsible Staff: Jose Juan Lewis RN Support and Services: Hypertension, Congestive Heart Failure (CHF), Chronic Kidney Disease (CKD) Program Goals Targets Target Due Completed Completed By Outcome CKD lab care gaps addressed 09/16/2024 -- -- -- Comprehensive CHF education provided 09/16/2024 -- -- -- Comprehensive CKD education provided 09/16/2024 -- -- -- Comprehensive HTN education provided 09/16/2024 -- -- -- HTN lab care gaps addressed 09/16/2024 -- -- -- Annual Nephrology visit addressed 09/16/2024 07/07/2024 Jose Juan Lewis RN Complete/Scheduled Biannual Cardiology visit addressed 09/16/2024 07/07/2024 Jose Juan Lewis RN Complete/Scheduled Biannual PCP visit addressed 09/16/2024 07/07/2024 Jose Juan Lewis RN Complete/Scheduled Patient-stated goal addressed (add comment) 09/16/2024 07/07/2024 Jose Juan Lewis RN -- To get outside and enjoy the beautiful sunshine. General education provided (managing stress, where to go/how to contact, etc.) 07/17/2024 06/19/2024 Ward Morales RN Complete H@H number given Intake assessments completed: ADLs, Fall Risk, SDOH 07/17/2024 06/19/2024 Ward Morales RN Complete Annual Medicare Wellness visit addressed 09/16/2024 06/19/2024 Ward Morales RN Complete/Scheduled Scheduled for 01/07/25 Assessments CDM Assessment Medications: Do you have any questions about taking your medications or which medications you should be taking?:No Do you need any medication refills at this time, including any of the medication you might take only when needed?: No Social: It can be normal to feel anxious or down during a time like this. Would you like to talk to a mental health professional about how you have been feeling?: No Symptoms: Are you experiencing any new or worsening symptoms that you need to talk about today?: No ADLs No documentation this encounter Fall Risk No documentation this encounter SDOH No documentation this encounter Interventions The following were addressed during this visit: - Month 1: Provide General Education: Smoking Cessation - Bi-Weekly Outreach (Recurring) Disposition Based on internet marketing consultant, the following disposition is advised: No action needed Jose Juan Lewis RN July 21, 2024 4:39 PM documented in [facility]Tr[facility] NotePatient Outreach ([facility]) DAYANA QUIÑONES ([id number]) 1940 F Date Time Provider Department 07/21/24 JOSE JUAN LEWIS [facility] During your visit today, we recorded the following information about you: Jose Juan Lewis, MANAS 07/21/2024 4:41 PM Signed [facility] Care Path Telephonic Outreach Provider Action/FYI Patient identified by Name and Date of . Discussed care with patient. Program Details Chronic Disease Management Status: Enrolled Effective Dates: 06/19/2024 - present Responsible Staff: Jose Juan Lewis, RN Support and Services: Hypertension, Congestive Heart Failure (CHF), Chronic Kidney Disease (CKD) Program Goals Targets Target Due Completed Completed By Outcome CKD lab care gaps addressed 09/16/2024 -- -- -- Comprehensive CHF education provided 09/16/2024 -- -- -- Comprehensive CKD education provided 09/16/2024 -- -- -- Comprehensive HTN education provided 09/16/2024 -- -- -- HTN lab care gaps addressed 09/16/2024 -- -- -- Annual Nephrology visit addressed 09/16/2024 07/07/2024 Jose Juan Lewis RN Complete/Scheduled Biannual Cardiology visit addressed 09/16/2024 07/07/2024 Jose Juan Lewis RN Complete/Scheduled Biannual PCP visit addressed 09/16/2024 07/07/2024 Jose Juan Lewis RN Complete/Scheduled Patient-stated goal addressed (add comment) 09/16/2024 07/07/2024 Jose Juan Lewis RN -- To get outside and enjoy the beautiful sunshine. General education provided (managing stress, where to go/how to contact, etc.) 07/17/2024 06/19/2024 Ward Morales RN Complete H@H number given Intake assessments completed: ADLs, Fall Risk, SDOH 07/17/2024 06/19/2024 Ward Morales RN Complete Annual Medicare Wellness visit addressed 09/16/2024 06/19/2024 Ward Morales RN Complete/Scheduled Scheduled for 01/07/25 Assessments CDM Assessment Medications: Do you have any questions about taking your medications or which medications you should be taking?: No Do you need any medication refills at this time, including any of the medication you might take only when needed?: No Social: It can be normal to feel anxious or down during a time like this. Would you like to talk to a mental health professional about how you have been feeling?: No Symptoms: Are you experiencing any new or worsening symptoms that you need to talk about today?: No ADLs No documentation this encounter Fall Risk No documentation this encounter SDOH No documentation this encounter Interventions The following were addressed during this visit: - Month 1: Provide General Education: Smoking Cessation - Bi-Weekly Outreach (Recurring) Disposition Based on internet marketing consultant, the following disposition is advised: No action needed Jose Juan Lewis RN July 21, 2024 4:39 PM Allergies As of Date: 07/21/2024 Noted Allergy Reaction MORPHINE 01/11/2017 8 - GI Upset 11 - Vomiting Date Reviewed: 07/04/2024 Reviewed by: Kinga Chilel LPN - Fully Assessed Prescriptions as of 07/21/2024 - amiodarone (PACERONE) 200 mg tablet Take 1 tablet by mouth every afternoon. - ferrous sulfate 325 mg (65 mg iron) tablet Take one tablet every other day - furosemide (LASIX) 20 mg tablet Take one tablet daily - apixaban (ELIQUIS) 5 mg tab(s) Take 1 tablet by mouth two times a day. - acyclovir (ZOVIRAX) 800 mg tablet Take one tablet once a day - erythromycin (ROMYCIN) 5 mg/gram (0.5 %) ophthalmic ointment Use 1 application in both eyes daily at bedtime. - Cholecalciferol, Vitamin D3, 25 mcg (1,000 unit) cap Take 2 capsules by mouth once daily. - spironolactone (ALDACTONE) 25 mg tablet Take 25 mg by mouth once daily. - pantoprazole DR (PROTONIX) 40 mg tablet Take 1 tablet by mouth two times a day. - carvedilol (COREG) 3.125 mg tablet Take 3.125 mg by mouth two times a day with meals. - Vit A,C,L-Rgqu-Xnrfow (ICAPS AREDS) 4,296 mcg-226 mg-90 mg cap Take 1 capsule by mouth once daily. - dapagliflozin propanediol (FARXIGA) 10 mg tablet Take 10 mg by mouth daily with breakfast. - timolol maleate (TIMOPTIC) 0.5 % ophthalmic [...] eye as directed. Every other day. - COMPOUNDED PRESCRIPTION 1 Drop. 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 Author Type: Registered Nurse Type: Progress Notes Filed: 07/07/2024 15:04 Note Text: [facility] Care Path Telephonic Outreach Provider Action/FYI Patient identified by Name and Date of . Discussed care with patient. Program Details Chronic Disease Management Status: Enrolled Effective Dates: 06/19/2024 - present Responsible Staff: Jose Juan Lewis RN Support and Services: Hypertension, Congestive Heart Failure (CHF), Chronic Kidney Disease (CKD) Program Goals Targets Target Due Completed Completed By Outcome CKD lab care gaps addressed 09/16/2024 -- -- -- Comprehensive CHF education provided 09/16/2024 -- -- -- Comprehensive CKD education provided 09/16/2024 -- -- -- Comprehensive HTN education provided 09/16/2024 -- -- -- HTN lab care gaps addressed 09/16/2024 -- -- -- Annual Nephrology visit addressed 09/16/2024 07/07/2024 Jose Juan Lewis RN Complete/Scheduled Biannual Cardiology visit addressed 09/16/2024 07/07/2024 Jose Juan Lewis RN Complete/Scheduled Biannual PCP visit addressed 09/16/2024 07/07/2024 Jose Juan Lewis RN Complete/Scheduled Patient-stated goal addressed (add comment) 09/16/2024 07/07/2024 Jose Juan Lewis RN -- To get outside and enjoy the beautiful sunshine. General education provided (managing stress, where to go/how to contact, etc.) 07/17/2024 06/19/2024 Ward Morales RN Complete H@H number given Intake assessments completed: ADLs, Fall Risk, SDOH 07/17/2024 06/19/2024 Ward Morales RN Complete Annual Medicare Wellness visit addressed 09/16/2024 06/19/2024 Ward Morales RN Complete/Scheduled Scheduled for 01/07/25 Assessments CDM Assessment Medications: Do you have any questions about taking your medications or which medications you should be taking?: No Do you need any medication refills at this time, including any of the medication you might take only when needed?: No Social: It can be normal to feel anxious or down during a time like this. Would you like to talk to a mental health professional about how you have been feeling?: No Symptoms: Are you experiencing any new or worsening symptoms that you need to talk about today?: No ADLs No documentation this encounter Fall Risk No documentation this encounter SDOH No documentation this encounter Interventions The following were addressed during this visit: - Biannual PCP visit addressed - Patient-stated goal addressed (add comment) - Schedule Biannual PCP Appointment - Schedule Annual Wellness Visit - Month 1: Provide General Education: Managing Stress AND Anxiety - Month 1: Provide General Education: Where to Go for Care - Month 1: Provide General Education: How to Contact Your Physician Team - Develop a Patient-Stated Goal (add to Target comments) - Bi-Weekly Outreach (Recurring) - Biannual Cardiology visit addressed - Month 1: Provide Heart Failure Video AND CHF JOSR Education - Schedule Biannual Cardiology Appointment - Annual Nephrology visit addressed - Month 1: Provide CKD Education: CKD JOSR Education - Month 3: Schedule Annual Nephrology Appointment Disposition Based on internet marketing consultant, the following disposition is advised: No action needed Patient takes BP, weight , and pulse ox daily. BP today 102/60 Pulse 82 with pulse ox 92 percent on RA. Weight 136.2 pounds. Jose Juan Lewis RN July 07, 2024 2:57 PMCMari[facility]03-10-2025 History of Present illness Narrative* Jose Juan Lewis RN - 07/07/2024 2:57 PM EDT Images from the original note were not included. [facility] Care Path Telephonic Outreach Provider Action/FYI Patient identified by Name and Date of . Discussed care with patient. Program Details Chronic Disease Management Status: Enrolled Effective Dates: 06/19/2024 - present Responsible Staff: Jose Juan Lewis, RN Support and Services: Hypertension, Congestive Heart Failure (CHF), Chronic Kidney Disease (CKD) Program Goals Targets Target Due Completed Completed By Outcome CKD lab care gaps addressed 09/16/2024 -- -- -- Comprehensive CHF education provided 09/16/2024 -- -- -- Comprehensive CKD education provided 09/16/2024 -- -- -- Comprehensive HTN education provided 09/16/2024 -- -- -- HTN lab care gaps addressed 09/16/2024 -- -- -- Annual Nephrology visit addressed 09/16/2024 07/07/2024 Jose Juan Lewis RN Complete/Scheduled Biannual Cardiology visit addressed 09/16/2024 07/07/2024 Jose Juan Lewis RN Complete/Scheduled Biannual PCP visit addressed 09/16/2024 07/07/2024 Jose Juan Lewis RN Complete/Scheduled Patient-stated goal addressed (add comment) 09/16/2024 07/07/2024 Jose Juan Lewis RN -- To get outside and enjoy the beautiful sunshine. General education provided (managing stress, where to go/how to contact, etc.) 07/17/2024 06/19/2024 Ward Morales RN Complete H@H number given Intake assessments completed: ADLs, Fall Risk, SDOH 07/17/2024 06/19/2024 Ward Morales RN Complete Annual Medicare Wellness visit addressed 09/16/2024 06/19/2024 Ward Morales RN Complete/Scheduled Scheduled for 01/07/25 Assessments CDM Assessment Medications: Do you have any questions about taking your medications or which medications you should be taking?:No Do you need any medication refills at this time, including any of the medication you might take only when needed?: No Social: It can be normal to feel anxious or down during a time like this. Would you like to talk to a mental health professional about how you have been feeling?: No Symptoms: Are you experiencing any new or worsening symptoms that you need to talk about today?: No ADLs No documentation this encounter Fall Risk No documentation this encounter SDOH No documentation this encounter Interventions The following were addressed during this visit: - Biannual PCP visit addressed - Patient-stated goal addressed (add comment) - Schedule Biannual PCP Appointment - Schedule Annual Wellness Visit - Month 1: Provide General Education: Managing Stress & Anxiety - Month 1: Provide General Education: Where to Go for Care - Month 1: Provide General Education: How to Contact Your Physician Team - Develop a Patient-Stated Goal (add to Target comments) - Bi-Weekly Outreach (Recurring) - Biannual Cardiology visit addressed - Month 1: Provide Heart Failure Video & CHF JOSR Education - Schedule Biannual Cardiology Appointment - Annual Nephrology visit addressed - Month 1: Provide CKD Education: CKD JOSR Education - Month 3: Schedule Annual Nephrology Appointment Disposition Based on internet marketing consultant, the following disposition is advised: No action needed Patient takes BP, weight , and pulse ox daily. BP today 102/60 Pulse 82 with pulse ox 92 percent on RA. Weight 136.2 pounds. Jose Juan Lewis RN July 07, 2024 2:57 PM [facility] NotePatient Outreach ([facility]) DAYANA QUIÑONES ([id number]) 1940 F Date Time Provider Department 07/07/24 JOSE JUAN LEWIS [facility] During your visit today, we recorded the following information about you: Jose Juan Lewis RN 07/07/2024 3:04 PM Addendum CDM Care Path Telephonic Outreach Provider Action/ Patient identified by Name and Date of . Discussed care with patient. Program Details Chronic Disease Management Status: Enrolled Effective Dates: 06/19/2024 - present Responsible Staff: Jose Juan Lewis RN Support and Services: Hypertension, Congestive Heart Failure (CHF), Chronic Kidney Disease (CKD) Program Goals Targets Target Due Completed Completed By Outcome CKD lab care gaps addressed 09/16/2024 -- -- -- Comprehensive CHF education provided 09/16/2024 -- -- -- Comprehensive CKD education provided 09/16/2024 -- -- -- Comprehensive HTN education provided 09/16/2024 -- -- -- HTN lab care gaps addressed 09/16/2024 -- -- -- Annual Nephrology visit addressed 09/16/2024 07/07/2024 Jose Juan Lewis RN Complete/Scheduled Biannual Cardiology visit addressed 09/16/2024 07/07/2024 Jose Juan Lewis RN Complete/Scheduled Biannual PCP visit addressed 09/16/2024 07/07/2024 Jose Juan Lewis RN Complete/Scheduled Patient-stated goal addressed (add comment) 09/16/2024 07/07/2024 Jose Juan Lewis RN -- To get outside and enjoy the beautiful sunshine. General education provided (managing stress, where to go/how to contact, etc.) 07/17/2024 06/19/2024 Ward Morales RN Complete H@H number given Intake assessments completed: ADLs, Fall Risk, SDOH 07/17/2024 06/19/2024 Ward Morales RN Complete Annual Medicare Wellness visit addressed 09/16/2024 06/19/2024 Ward Morales RN Complete/Scheduled Scheduled for 01/07/25 Assessments CDM Assessment Medications: Do you have any questions about taking your medications or which medications you should be taking?: No Do you need any medication refills at this time, including any of the medication you might take only when needed?: No Social: It can be normal to feel anxious or down during a time like this. Would you like to talk to a mental health professional about how you have been feeling?: No Symptoms: Are you experiencing any new or worsening symptoms that you need to talk about today?: No ADLs No documentation this encounter Fall Risk No documentation this encounter SDOH No documentation this encounter Interventions The following were addressed during this visit: - Biannual PCP visit addressed - Patient-stated goal addressed (add comment) - Schedule Biannual PCP Appointment - Schedule Annual Wellness Visit - Month 1: Provide General Education: Managing Stress AND Anxiety - Month 1: Provide General Education: Where to Go for Care - Month 1: Provide General Education: How to Contact Your Physician Team - Develop a Patient-Stated Goal (add to Target comments) - Bi-Weekly Outreach (Recurring) - Biannual Cardiology visit addressed - Month 1: Provide Heart Failure Video AND CHF JOSR Education - Schedule Biannual Cardiology Appointment - Annual Nephrology visit addressed - Month 1: Provide CKD Education: CKD JOSR Education - Month 3: Schedule Annual Nephrology Appointment Disposition Based on internet marketing consultant, the following disposition is advised: No action needed Patient takes BP, weight , and pulse ox daily. BP today 102/60 Pulse 82 with pulse ox 92 percent on RA. Weight 136.2 pounds. Jose Juan Lewis RN July 07, 2024 2:57 PM Allergies As of Date: 07/07/2024 Noted Allergy Reaction MORPHINE 01/11/2017 8 - GI Upset 11 - Vomiting Date Reviewed: 07/04/2024 Reviewed by: Kinga Chilel LPN - Fully Assessed Primary Visit Diagnosis:Stage 3b chronic kidney disease (HCC) [N18.32] Other Visit Diagnosis:Congestive heart failure, unspecified HF chronicity, unspecified heart failure type (HCC) [I50.9] Order(s):PT ED NEPHROLOGY [0220715] Order #: [id number]: 1 PT ED HEART AND VASCULAR [1004037] Order #: [id number]: 1 Prescriptions as of 07/07/2024 - amiodarone (PACERONE) 200 mg tablet Take 1 tablet by mouth every afternoon. - ferrous sulfate 325 mg (65 mg iron) tablet Take one tablet every other day - furosemide (LASIX) 20 mg tablet Take one tablet daily - apixaban (ELIQUIS) 5 mg tab(s) Take 1 tablet by mouth two times a day. - acyclovir (ZOVIRAX) 800 mg tablet Take one tablet once a day - erythromycin (ROMYCIN) 5 mg/gram (0.5 %) ophthalmic ointment Use 1 application in both eyes daily at bedtime. - Cholecalciferol, Vitamin D3, 25 mcg (1,000 unit) cap Take 2 capsules by mouth once daily. - spironolactone (ALDACTONE) 25 mg tablet Take 25 mg by mouth once daily. - pantoprazole DR (PROTONIX) 40 mg tablet Take 1 tablet by mouth two times a day. - carvedilol (COREG) 3.125 mg tablet Take 3.1 (more content not included)...[facility]03-07-2025 History of Present illness Narrative* Silvia Hunter APRN.JOELLE - 07/04/2024 8:20 AM EST 07/02/2024 Patient presents with: F/U 6 months SUBJECTIVE: This is a 84 year old, accompanied by son, that is here today for Above Complaints. Since last visit has been in good health without ER visits or hospitalizations HTN: Patient is compliant with meds Yes Monitors bp at home: Yes. Denies side effects: Yes. Chest pain: No. Dyspnea: No. Edema: No. Palpitations: No. Syncope: No. Headache: No. Dizziness: No. HYPERLIPIDEMIA: Patient is taking medications: Yes. Patient is watching diet: Yes. Patient denies myalgias: Yes. Patient denies gi upset: Yes CKD: Follows with Dr. Guzman, pyroglazer with last office visit last . No changes to currentregime. Eats low salt diet and avoids NSAID products. GERD: taking pantoprazole as prescribed without side effects. Works to control symptoms CAD/CHF/Heart block: Follows with [facility] cardiology with last appointment three months ago per patient. Was supposed to see them this month but appointment was canceled and rescheduled for September. Patientreports they decreased her Lasix from 40 mg to 20 mg due to she felt dizzy. Per patient feels improved. 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 Brumfield Benign hypertension 07/01/2015 BPPV (benign paroxysmal positional vertigo), unspecified laterality 04/11/2017 CKD (chronic kidney disease) stage 3, GFR 30-59 ml/min ([facility]) Fibrocystic breast disease (FCBD) in female 07/01/2015 Gastroesophageal reflux disease 07/01/2015 Gastrointestinal bleed duodenal ulcer Herpes zoster keratoconjunctivitis 07/01/2015 Hyperlipidemia 2019 Ischemic cardiomyopathy Neutrophilia 12/22/2016 Normally functioning cardiac pacemaker present 11/01/2018 Paroxysmal atrial flutter (HCC) Presence of permanent cardiac pacemaker 2019 S/P CABG (coronary artery bypass graft) S/P MVR (mitral valve repair) Shingles 12/27/2014 ST elevation (STEMI) myocardial infarction involving left anterior descending coronary artery (HCC)2019 ALLERGIES Morphine MEDICATIONS Current Outpatient Medications Medication Sig amiodarone (PACERONE) 200 mg tablet Take 1 tablet by mouth every afternoon. ferrous sulfate 325 mg (65 mg iron) tablet Take one tablet every other day furosemide (LASIX) 20 mg tablet Take one tablet daily apixaban (ELIQUIS) 5 mg tab(s) Take 1 tablet by mouth two times a day. acyclovir (ZOVIRAX) 800 mg tablet Take one tablet once a day erythromycin (ROMYCIN) 5 mg/gram (0.5 %) ophthalmic ointment Use 1 application in both eyes daily at bedtime. Cholecalciferol, Vitamin D3, 25 mcg (1,000 unit) cap Take 2 capsules by mouth once daily. spironolactone (ALDACTONE) 25 mg tablet Take 25 mg by mouth once daily. pantoprazole DR (PROTONIX) 40 mg tablet Take 1 tablet by mouth two times a day. carvedilol (COREG) 3.125 mg tablet Take 3.125 mg by mouth two times a day with meals. Vit A,C,C-Cdgg-Vaytdi (ICAPS AREDS) 4,296 mcg-226 mg-90 mg cap Take 1 capsule by mouth once daily. dapagliflozin propanediol (FARXIGA) 10 mg tablet Take 10 mg by mouth daily with breakfast. timolol maleate (TIMOPTIC) 0.5 % ophthalmic solution [...] Social History Tobacco Use Smoking status: Former Current packs/day: 0.00 Types: Cigarettes Quit date: 04/30/1967 Years since quittin.2 Smokeless tobacco: Never Vaping Use Vaping status: Never Used Substance Use Topics Alcohol use: No Drug use: Never REVIEW OF SYSTEMS All other reviewed and negative other than HPI. OBJECTIVE: BP 102/66 Pulse 60 Resp 18 Wt 63.1 kg (139 lb 3.2 oz) SpO2 98% BMI 24.66 kg/m . Vital signs reviewed by this provider. APPEARANCE Well appearing, alert, in no acute distress, well-hydrated, well nourished. EYES conjunctiva and sclera normal. HEART RRR with normal S1 and S2, no murmurs, no gallops, no JVD appreciated LUNG clear to auscultation. No wheezes, rhonchi or rales EXTREMITIES Extremities normal, No deformities, No skin discoloration, and No edema SKIN Skin color, texture, turgor normal, no suspicious rashes or lesions to exposed skin Depression Screening Never done Anxiety Screening Never done Advance Directive Discussion Never done DTaP,Tdap,Td Vaccine(1 - Tdap) due on 09/30/2024 RSV Vaccine(1 - 1-dose 75+ series) due on 09/30/2024 Covid-19 Vaccine( season) due on 01/03/2025 Diabetes Screening due on 09/30/2026 Bone Density Screening Completed Influenza Vaccine Completed Pneumococcal Vaccine: 50+ Completed Shingrix Vaccine Discontinued ASSESSMENT/PLAN: 1. Benign hypertension - ICD9: 401.1, ICD10: I10 (primary diagnosis) - Controlled - Continue current medications - Recommend home blood pressure monitoring, to bring results to next visit - Encouraged sodium restriction, DASH or Mediterranean diet - Recommend regular aerobic exercise - Follow up in 6 months for hypertension visit 2. 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 Complete heart block (HCC) - ICD9: 426.0, ICD10: I44.2 -stable - follow-up with cardiology as scheduled 4. Stage 3b chronic kidney disease (HCC) - ICD9: 585.3, ICD10: N18.32 - eGFR: 30 Stable - Counseled on avoiding NSAIDs, adequate hydration - Counseled on low sodium diet - ACEi/ARB prescribed: This patient does not have an active medication from one of the medication groupers. - SGLT2i prescribed: dapagliflozin propanediol - Follow up with kidney medicine 5. GERD without esophagitis - ICD9: 530.81, ICD10: K21.9 - stable on current regime 6. Hyperlipidemia LDL goal <100 - ICD9: 272.4, ICD10: E78.5 - Controlled - Continue current medications - Counseled on healthy diet and regular exercise - Follow up in 6 months, sooner should any other issues arise. 7. Chronic congestive heart failure, unspecified heart failure type (HCC) - ICD9: 428.0, ICD10: I50.9 - stable on current regime - follow-up with cardiology as scheduled Silvia Hunter APRN.CNP Prescription instructions reviewed with patient as applicable. Patient advised if symptoms do not improve or if symptoms worsen sooner, to contact their primary care physician. Potential red flag symptoms discussed with the patient. Reviewed appropriate action plan to take if red flag symptoms occur. Patient agreeable to treatment plan. Medical Decision Making: Problems: Moderate: 2+ stable chronic illnesses Risk: Moderate: Moderate risk from testing/treatment Medical Decision Making Level: 4 - Moderate documented in [facility]Tr[facility]25 NoteHNO ID: [id number] Author: SILVIA HUNTER APRN.CNP Service: ? Author Type: Nurse Practitioner Type: Progress Notes Filed: 07/04/2024 08:59 Note Text: 07/02/2024 Patient presents with: F/U 6 months SUBJECTIVE: This is a 84 year old, accompanied by son, that is here today for Above Complaints. Since last visit has been in good health without ER visits or hospitalizations HTN: Patient is compliant with meds Yes Monitors bp at home: Yes. Denies side effects: Yes. Chest pain: No. Dyspnea: No. Edema: No. Palpitations: No. Syncope: No. Headache: No. Dizziness: No. HYPERLIPIDEMIA: Patient is taking medications: Yes. Patient is watching diet: Yes. Patient denies myalgias: Yes. Patient denies gi upset: Yes CKD: Follows with Dr. Guzman, pyroglazer with last office visit last . No changes to current regime. Eats low salt diet and avoids NSAID products. GERD: taking pantoprazole as prescribed without side effects. Works to control symptoms CAD/CHF/Heart block: Follows with [facility] cardiology with last appointment three months ago per patient. Was supposed to see them this month but appointment was canceled and rescheduled for September. Patient reports they decreased her Lasix from 40 mg to 20 mg due to she felt dizzy. Per patient feels improved. 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 Brumfield Benign hypertension 07/01/2015 BPPV (benign paroxysmal positional vertigo), unspecified laterality 04/11/2017 CKD (chronic kidney disease) stage 3, GFR 30-59 ml/min (HCC) Fibrocystic breast disease (FCBD) in female 07/01/2015 Gastroesophageal reflux disease 07/01/2015 Gastrointestinal bleed duodenal ulcer Herpes zoster keratoconjunctivitis 07/01/2015 Hyperlipidemia 2019 Ischemic cardiomyopathy Neutrophilia 12/22/2016 Normally functioning cardiac pacemaker present 11/01/2018 Paroxysmal atrial flutter (HCC) Presence of permanent cardiac pacemaker 2019 S/P CABG (coronary artery bypass graft) S/P MVR (mitral valve repair) Alberto 12/27/2014 ST elevation (STEMI) myocardial infarction involving left anterior descending coronary artery (HCC) 2019 ALLERGIES Morphine MEDICATIONS Current Outpatient Medications Medication Sig amiodarone (PACERONE) 200 mg tablet Take 1 tablet by mouth every afternoon. ferrous sulfate 325 mg (65 mg iron) tablet Take one tablet every other day furosemide (LASIX) 20 mg tablet Take one tablet daily apixaban (ELIQUIS) 5 mg tab(s) Take 1 tablet by mouth two times a day. acyclovir (ZOVIRAX) 800 mg tablet Take one tablet once a day erythromycin (ROMYCIN) 5 mg/gram (0.5 %) ophthalmic ointment Use 1 application in both eyes daily at bedtime. Cholecalciferol, Vitamin D3, 25 mcg (1,000 unit) cap Take 2 capsules by mouth once daily. spironolactone (ALDACTONE) 25 mg tablet Take 25 mg by mouth once daily. pantoprazole DR (PROTONIX) 40 mg tablet Take 1 tablet by mouth two times a day. carvedilol (COREG) 3.125 mg tablet Take 3.125 mg by mouth two times a day with meals. Vit A,C,B-Hdpp-Afanft (ICAPS AREDS) 4,296 mcg-226 mg-90 mg cap Take 1 capsule by mouth once daily. dapagliflozin propanediol (FARXIGA) 10 mg tablet Take 10 mg by mouth daily with breakfast. timolol maleate (TIMOPTIC) 0.5 % ophthalmic solution [...] Social History Tobacco Use Smoking status: Former Current packs/day: 0.00 Types: Cigarettes Quit date: 04/30/1967 Years since quittin.2 Smokeless tobacco: Never Vaping Use Vaping status: Never Used Substance Use Topics Alcohol use: No Drug use: Never REVIEW OF SYSTEMS All other reviewed and negative other than HPI. OBJECTIVE: BP 102/66 Pulse 60 Resp 18 Wt 63.1 kg (139 lb 3.2 oz) SpO2 98% BMI 24.66 kg/m? . Vital signs reviewed by this provider. APPEARANCE Well appearing, alert, in no acute distress, well-hydrated, well nourished. EYES conjunctiva and sclera normal. HEART RRR with normal S1 and S2, no murmurs, no gallops, no JVD appreciated LUNG clear to auscultation. No wheezes, rhonchi or rales EXTREMITIES Extremities normal, No deformities, No skin discoloration, and No edema SKIN Skin color, texture, turgor normal, no suspicious rashes or lesions to exposed skin Depression Screening Never done Anxiety Screening Never done Advance Directive Discussion Never done DTaP,Tdap,Td Vaccine(1 - Tdap) due on 09/30/2024 RSV V (more content not included)...[facility]2025 NoteHNO ID: [id number] Author: WARD MORALES RN Service: ? Author Type: Registered Nurse Type: Progress Notes Filed: 06/19/2024 15:51 Note Text: CDM ENROLLMENT Provider Action / FYI: Patient identified by name and date of . Discussed care with patient. Program Details Chronic Disease Management Status: Identified Start Date: 06/19/2024 Responsible Staff: Jose Juan Lewis, MANAS Support and Services: Assessments CDM Assessment Medications: Do you have any questions about taking your medications or which medications you should be taking?: No Do you need any medication refills at this time, including any of the medication you might take only when needed?: No Social: It can be normal to feel anxious or down during a time like this. Would you like to talk to a mental health professional about how you have been feeling?: No Symptoms: Are you experiencing any new or worsening symptoms that you need to talk about today?: No ADLs Patients can perform the following activities without help: Dressing: Yes Bathing: Yes Doing laundry: Yes Climbing a flight of stairs: No Walking briskly: No Instrumental activities of daily living Do you drive a car?: Yes Do you need help from others to take care of things inside the house, for example: laundry, house cleaning, preparing meals?: No Do you need help from others with errands outside the house, for example: shopping for groceries or clothes, going medical appointments?: Yes Did you have the help you needed?: Yes Fall Risk One or more falls in the last year:: Yes Any near falls in the last year?: No Advised to use a cane or walker to get around safely:: Yes (cane when out in community) Feels unsteady when walking:: No (not when using cane) SDOH Financial Resource Strain How hard is it for you to pay for the very basics like food, housing, medical care, and heating?: Not hard at all Housing Stability In the last 12 months, was there a time when you were not able to pay the mortgage or rent on time?: No At any time in the past 12 months, were you homeless or living in a nursing home (including now)?: No Transportation Needs In the past 12 months, has lack of transportation kept you from medical appointments or from getting medications?: No In the past 12 months, has lack of transportation kept you from meetings, work, or from getting things needed for daily living?: No Food Insecurity Within the past 12 months, you worried that your food would run out before you got the money to buy more.: Never true Within the past 12 months, the food you bought just didn't last and you didn't have money to get more.: Never true Tobacco Use Patient reports that she quit smoking about 57 years ago. Her smoking use included cigarettes. She has never used smokeless tobacco. Interventions No checklist tasks for this episode were completed during this visit, and no tasks for this episode are pending completion. Ward Morales RN June 19, 2024 3:40 [facility]2025 History of Present illness Narrative* Ward Morales RN - 06/19/2024 3:33 PM EST CDM ENROLLMENT Provider Action / FYI: Patient identified by name and date of . Discussed care with patient. Program Details Chronic Disease Management Status: Identified Start Date: 06/19/2024 Responsible Staff: Jose Juan Lewis RN Support and Services: Assessments CDM Assessment Medications: Do you have any questions about taking your medications or which medications you should be taking?:No Do you need any medication refills at this time, including any of the medication you might take only when needed?: No Social: It can be normal to feel anxious or down during a time like this. Would you like to talk to a mental health professional about how you have been feeling?: No Symptoms: Are you experiencing any new or worsening symptoms that you need to talk about today?: No ADLs Patients can perform the following activities without help: Dressing: Yes Bathing: Yes Doing laundry: Yes Climbing a flight of stairs: No Walking briskly: No Instrumental activities of daily living Do you drive a car?: Yes Do you need help from others to take care of things inside the house, for example: laundry, house cleaning, preparing meals?: No Do you need help from others with errands outside the house, for example: shopping for groceries orclothes, going medical appointments?: Yes Did you have the help you needed?: Yes Fall Risk One or more falls in the last year:: Yes Any near falls in the last year?: No Advised to use a cane or walker to get around safely:: Yes (cane when out in community) Feels unsteady when walking:: No (not when using cane) SDOH Financial Resource Strain How hard is it for you to pay for the very basics like food, housing, medical care, and heating?: Not hard at all Housing Stability In the last 12 months, was there a time when you were not able to pay the mortgage or rent on time?: No At any time in the past 12 months, were you homeless or living in a nursing home (including now)?: No Transportation Needs In the past 12 months, has lack of transportation kept you from medical appointments or from getting medications?: No In the past 12 months, has lack of transportation kept you from meetings, work, or from getting things needed for daily living?: No Food Insecurity Within the past 12 months, you worried that your food would run out before you got the money to buymore.: Never true Within the past 12 months, the food you bought just didn't last and you didn't have money to get more.: Never true Tobacco Use Patient reports that she quit smoking about 57 years ago. Her smoking use included cigarettes. She has never used smokeless tobacco. Interventions No checklist tasks for this episode were completed during this visit, and no tasks for this episodeare pending completion. Ward Morales RN June 19, 2024 3:40 PM [facility]Tr[facility] [facility] NotePatient Outreach ([facility]) DAYANA QUIÑONES ([id number]) 1940 F Date Time Provider Department 06/19/[facility] [place] your visit today, we recorded the following information about you: Ward Morales RN 06/19/2024 3:51 PM Signed CDM ENROLLMENT Provider Action / FYI: Patient identified by name and date of . Discussed care with patient. Program Details Chronic Disease Management Status: Identified Start Date: 06/19/2024 Responsible Staff: Jose Juan Lewis RN Support and Services: Assessments CDM Assessment Medications: Do you have any questions about taking your medications or which medications you should be taking?: No Do you need any medication refills at this time, including any of the medication you might take only when needed?: No Social: It can be normal to feel anxious or down during a time like this. Would you like to talk to a mental health professional about how you have been feeling?: No Symptoms: Are you experiencing any new or worsening symptoms that you need to talk about today?: No ADLs Patients can perform the following activities without help: Dressing: Yes Bathing: Yes Doing laundry: Yes Climbing a flight of stairs: No Walking briskly: No Instrumental activities of daily living Do you drive a car?: Yes Do you need help from others to take care of things inside the house, for example: laundry, house cleaning, preparing meals?: No Do you need help from others with errands outside the house, for example: shopping for groceries or clothes, going medical appointments?: Yes Did you have the help you needed?: Yes Fall Risk One or more falls in the last year:: Yes Any near falls in the last year?: No Advised to use a cane or walker to get around safely:: Yes (cane when out in community) Feels unsteady when walking:: No (not when using cane) SDOH Financial Resource Strain How hard is it for you to pay for the very basics like food, housing, medical care, and heating?: Not hard at all Housing Stability In the last 12 months, was there a time when you were not able to pay the mortgage or rent on time?: No At any time in the past 12 months, were you homeless or living in a nursing home (including now)?: No Transportation Needs In the past 12 months, has lack of transportation kept you from medical appointments or from getting medications?: No In the past 12 months, has lack of transportation kept you from meetings, work, or from getting things needed for daily living?: No Food Insecurity Within the past 12 months, you worried that your food would run out before you got the money to buy more.: Never true Within the past 12 months, the food you bought just didn't last and you didn't have money to get more.: Never true Tobacco Use Patient reports that she quit smoking about 57 years ago. Her smoking use included cigarettes. She has never used smokeless tobacco. Interventions No checklist tasks for this episode were completed during this visit, and no tasks for this episode are pending completion. Ward Morales RN June 19, 2024 3:40 PM Allergies As of Date: 06/19/2024 Noted Allergy Reaction MORPHINE 01/11/2017 8 - GI Upset 11 - Vomiting Date Reviewed: 05/16/2024 Reviewed by: Kelly Hair LPN - Fully Assessed Prescriptions as of 06/19/2024 - amiodarone (PACERONE) 200 mg tablet Take 1 tablet by mouth every afternoon. - ferrous sulfate 325 mg (65 mg iron) tablet Take one tablet every other day - furosemide (LASIX) 20 mg tablet Take one tablet daily - apixaban (ELIQUIS) 5 mg tab(s) Take 1 tablet by mouth two times a day. - acyclovir (ZOVIRAX) 800 mg tablet Take one tablet once a day - erythromycin (ROMYCIN) 5 mg/gram (0.5 %) ophthalmic ointment Use 1 application in both eyes daily at bedtime. - Cholecalciferol, Vitamin D3, 25 mcg (1,000 unit) cap Take 2 capsules by mouth once daily. - spironolactone (ALDACTONE) 25 mg tablet Take 25 mg by mouth once daily. - pantoprazole DR (PROTONIX) 40 mg tablet Take 1 tablet by mouth two times a day. - carvedilol (COREG) 3.125 mg tablet Take 3.125 mg by mouth two times a day with meals. - Vit A,C,G-Taxk-Aotazu (ICAPS AREDS) 4,296 mcg-226 mg-90 mg cap Take 1 capsule by mouth once daily. - dapagliflozin propanediol (FARXIGA) 10 mg tablet Take 10 mg by mouth daily with breakfast. - timolol maleate (TIMOPTIC) 0.5 % ophthalmic [...] eye as directed. Every other day. - COMPOUNDED PRESCRIPTION 1 Drop. Every other day-left eye Problem List As Of Date 06/19/2024 Noted Resolved (more content not included)...[facility]02-03-2025 NoteHNO ID: [id number] Author: MEGHANA DAVIES MA Service: ? Author Type: Sales Management Trainee Type: Progress Notes Filed: 06/02/2024 10:20 Note Text: POPULATION HEALTH NAVIGATION OUTREACH Action/FYI Patient is on [employer] High Risk list for below and needs appointment to address: Depression Screening Anxiety Screening Advance Directive Discussion Hemoglobin A1C (%) Date Value 07/22/2018 5.9 Patient due for: Medicare Annual Wellness Visit Christina Active: Yes Spoke to patient. Scheduled with PCP team. Noted upcoming appointment to address due care gaps Follow up scheduled 06/2024. Reason for Outreach Care Gap/HCC or Scheduling Wellness Visits Care Gaps due: Medicare Annual Wellness Visit Patient Contacted: Spoke to patient/parent/or legal guardian Patient identified by name and : Yes Care Gap/HCC/Scheduling Wellness actions taken: Patient scheduled/pended orders: Medicare Annual Wellness Visit 07/04/2024 in [facility] with PODLOGARSILVIA - 6 month follow up, AWV due. Please address due care gaps 01/07/2025 in [facility] with PODLOGAR, SILVIA - Annual Wellness, Please address due care gaps Navigation Signature: Meghana Davies MA June 02, 2024 8:34 [facility]02-03-2025 History of Present illness Narrative* Meghana Davies MA - 06/02/2024 8:33 AM EST POPULATION HEALTH NAVIGATION OUTREACH Action/FYI Patient is on [employer] High Risk list for below and needs appointment to address: Depression Screening Anxiety Screening Advance Directive Discussion Hemoglobin A1C (%) Date Value 07/22/2018 5.9 Patient due for: Medicare Annual Wellness Visit Christina Active: Yes Spoke to patient. Scheduled with PCP team. Noted upcoming appointment to address due care gaps Follow up scheduled 06/2024. Reason for Outreach Care Gap/HCC or Scheduling Wellness Visits Care Gaps due: Medicare Annual Wellness Visit Patient Contacted: Spoke to patient/parent/or legal guardian Patient identified by name and : Yes Care Gap/HCC/Scheduling Wellness actions taken: Patient scheduled/pended orders: Medicare Annual Wellness Visit 07/04/2024 in [facility] with PODLOGARSILVIA - 6 month follow up, AWV due. Please address due care gaps 01/07/2025 in [facility] with PODLOGAR, SILVIA - Annual Wellness, Please address due care gaps Navigation Signature: Meghana Davies MA June 02, 2024 8:34 AM [facility] NotePatient Outreach (NETNAV) DAYANA QUIÑONES ([id number]) 1940 F Date Time Provider Department 06/02/24 MEGHANA DAVIES During your visit today, we recorded the following information about you: Meghana Davies MA 06/02/2024 10:20 AM Signed POPULATION HEALTH NAVIGATION OUTREACH Action/FYI Patient is on [employer] High Risk list for below and needs appointment to address: Depression Screening Anxiety Screening Advance Directive Discussion Hemoglobin A1C (%) Date Value 07/22/2018 5.9 Patient due for: Medicare Annual Wellness Visit Jaquihart Active: Yes Spoke to patient. Scheduled with PCP team. Noted upcoming appointment to address due care gaps Follow up scheduled 06/2024. Reason for Outreach Care Gap/HCC or Scheduling Wellness Visits Care Gaps due: Medicare Annual Wellness Visit Patient Contacted: Spoke to patient/parent/or legal guardian Patient identified by name and : Yes Care Gap/HCC/Scheduling Wellness actions taken: Patient scheduled/pended orders: Medicare Annual Wellness Visit 07/04/2024 in [facility] with SILVIA HUNTER - 6 month follow up, AWV due. Please address due care gaps 01/07/2025 in [facility] with SILVIA HUNTER - Annual Wellness, Please address due care gaps Navigation Signature: Meghana Davies MA June 02, 2024 8:34 AM Meghana Davies MA 01/19/2025 1:52 PM Signed POPULATION HEALTH NAVIGATION OUTREACH Action/FY Patient is on cancellation call back list: AWV from 01/07/25 cancelled Spoke to patient. Declined to schedule. Patient states that she has some things going on with her pacemaker and will call back when those things settle down Reason for Outreach Care Gap/HCC or Scheduling Wellness Visits Care Gaps due: Medicare Annual Wellness Visit Flu Vaccine Patient Contacted: Spoke to patient/parent/or legal guardian Patient identified by name and : Yes Care Gap/HCC/Scheduling Wellness actions taken: Patient declined: Patient requested call back from navigator/ will call navigator back Navigation Signature: Meghana Davies MA January 19, 2025 1:49 PM Allergies As of Date: 06/02/2024 Noted Allergy Reaction MORPHINE 01/11/2017 8 - GI Upset 11 - Vomiting Date Reviewed: 05/16/2024 Reviewed by: Kelly Hair LPN - Fully Assessed Reason for Visit: Population Health Navigation Outreach [3910] Cmt: A[employer]na High Risk - Attempt 2 Prescriptions as of 01/19/2025 - ferrous sulfate 325 mg (65 mg iron) tablet Take one tablet every other day - amiodarone (PACERONE) 200 mg tablet Take 1 tablet by mouth every afternoon. - furosemide (LASIX) 20 mg tablet Take one tablet daily - apixaban (ELIQUIS) 5 mg tab(s) Take 1 tablet by mouth two times a day. - acyclovir (ZOVIRAX) 800 mg tablet Take one tablet once a day - erythromycin (ROMYCIN) 5 mg/gram (0.5 %) ophthalmic ointment Use 1 application in both eyes daily at bedtime. - Cholecalciferol, Vitamin D3, 25 mcg (1,000 unit) cap Take 2 capsules by mouth once daily. - pantoprazole DR (PROTONIX) 40 mg tablet Take 1 tablet by mouth two times a day. - Vit A,C,F-Ppff-Adsbat (ICAPS AREDS) 4,296 mcg-226 mg-90 mg cap [...] eye as directed. Every other day. - COMPOUNDED PRESCRIPTION 1 Drop. 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 Author Type: Sales Management Trainee Type: Progress Notes Filed: 05/27/2024 13:10 Note Text: POPULATION HEALTH NAVIGATION OUTREACH Action/I Patient is on [employer] High Risk list for below and needs appointment to address: Depression Screening Anxiety Screening Advance Directive Discussion Hemoglobin A1C (%) Date Value 07/22/2018 5.9 Patient due for: Medicare Annual Wellness Visit MyChart Active: Yes Attempted to reach patient, phone rings then goes to busy signal - no voicemail, unable to leave message. Sent [employer] message. Follow up scheduled 06/2024. Updated notes to address due care gaps. Reason for Outreach Care Gap/HCC or Scheduling Wellness Visits Care Gaps due: Medicare Annual Wellness Visit Patient Contacted: Unable or unnecessary to reach patient: Unable to leave message [employer] message sent Updated appointment notes Navigation Signature: Meghana Davies MA May 27, 2024 1:07 [facility]01-28-2025 History of Present illness Narrative* Meghana Davies MA - 05/27/2024 1:06 PM EST POPULATION HEALTH NAVIGATION OUTREACH Action/FYI Patient is on [employer] High Risk list for below and needs appointment to address: Depression Screening Anxiety Screening Advance Directive Discussion Hemoglobin A1C (%) Date Value 07/22/2018 5.9 Patient due for: Medicare Annual Wellness Visit IDEA SPHEREhart Active: Yes Attempted to reach patient, phone rings then goes to busy signal - no voicemail, unable to leave message. Sent [employer] message. Follow up scheduled 06/2024. Updated notes to address due care gaps. Reason for Outreach Care Gap/HCC or Scheduling Wellness Visits Care Gaps due: Medicare Annual Wellness Visit Patient Contacted: Unable or unnecessary to reach patient: Unable to leave message [employer] message sent Updated appointment notes Navigation Signature: Meghana Davies MA May 27, 2024 1:07 PM documented in [facility]Tr[facility] NotePatient Outreach (NETNAV) DAYANA QUIÑONES ([id number]) 1940 F Date Time Provider Department 05/27/24 MEGHANA DAVIES NETNAV During your visit today, we recorded the following information about you: Meghana Davies MA 05/27/2024 1:10 PM Signed POPULATION HEALTH NAVIGATION OUTREACH Action/FYI Patient is on [employer] High Risk list for below and needs appointment to address: Depression Screening Anxiety Screening Advance Directive Discussion Hemoglobin A1C (%) Date Value 07/22/2018 5.9 Patient due for: Medicare Annual Wellness Visit MyChart Active: Yes Attempted to reach patient, phone rings then goes to busy signal - no voicemail, unable to leave message. Sent [employer] message. Follow up scheduled 06/2024. Updated notes to address due care gaps. Reason for Outreach Care Gap/HCC or Scheduling Wellness Visits Care Gaps due: Medicare Annual Wellness Visit Patient Contacted: Unable or unnecessary to reach patient: Unable to leave message [employer] message sent Updated appointment notes Navigation Signature: Meghana Davies MA May 27, 2024 1:07 PM Allergies As of Date: 05/27/2024 Noted Allergy Reaction MORPHINE 01/11/2017 8 - GI Upset 11 - Vomiting Date Reviewed: 05/16/2024 Reviewed by: Kelly Hair LPN - Fully Assessed Reason for Visit: Population Health Navigation Outreach [3910] Cmt: [employer] High Risk - Attempt 1 Prescriptions as of 05/27/2024 - amiodarone (PACERONE) 200 mg tablet Take 1 tablet by mouth every afternoon. - ferrous sulfate 325 mg (65 mg iron) tablet Take one tablet every other day - furosemide (LASIX) 20 mg tablet Take one tablet daily - apixaban (ELIQUIS) 5 mg tab(s) Take 1 tablet by mouth two times a day. - acyclovir (ZOVIRAX) 800 mg tablet Take one tablet once a day - erythromycin (ROMYCIN) 5 mg/gram (0.5 %) ophthalmic ointment Use 1 application in both eyes daily at bedtime. - Cholecalciferol, Vitamin D3, 25 mcg (1,000 unit) cap Take 2 capsules by mouth once daily. - spironolactone (ALDACTONE) 25 mg tablet Take 25 mg by mouth once daily. - pantoprazole DR (PROTONIX) 40 mg tablet Take 1 tablet by mouth two times a day. - carvedilol (COREG) 3.125 mg tablet Take 3.125 mg by mouth two times a day with meals. - Vit A,C,V-Rlwm-Kgkrmf (ICAPS AREDS) 4,296 mcg-226 mg-90 mg cap Take 1 capsule by mouth once daily. - dapagliflozin propanediol (FARXIGA) 10 mg tablet Take 10 mg by mouth daily with breakfast. - timolol maleate (TIMOPTIC) 0.5 % ophthalmic [...] eye as directed. Every other day. - COMPOUNDED PRESCRIPTION 1 Drop. Every other day-left eye Problem List As Of Date 05/27/2024 Noted Resolved Benign hypertension [I10] 07/01/2015 GERD without esophagitis [K21.9] 07/01/2015 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] 07/01/2015 Fibrocystic breast disease (FCBD) in female [N6*07/01/2015 Occult blood positive stool [R19.5] 12/21/2016 Neutrophilia [D72.828] 12/22/2016 12/14/2017 Lichen sclerosus et atrophicus [L90.0] [...] [S22.22XA] 02/10/2019 Obesity, Class I, BMI 30-34.9 [E66.811] 11/15/2020 Hyperlipidemia LDL goal <100 [E78.5] 11/15/2020 Ischemic cardiomyopathy [I25.5] 05/17/2022 Acute on chronic systolic heart failure (HCC) [*03/29/2023 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 Author Type: Physician Type: Progress Notes Filed: 05/17/2024 09:47 Note Text: Chief Complaint Patient presents with: Follow Up: EC visit 05/10/24 HPI Dayana Quiñones is a 84 year old female who presents here today for Above Complaints. Accompanied today by daughter. Patient evaluated in EC on 05/10 with following HPI: For the last two days pt has had a cough, hoarse voice, and chest congestion.; Review of Systems Constitutional: Negative for fever. HENT: Positive for sore throat and voice change. Negative for ear pain. Respiratory: Positive for cough. Diagnosed with pneumonia on CXR and started on Doxycycline BID x 5 days. Since discharge, patient has completed her abx and symptoms are improving, but she is not 100%. Cough has improved. Sore throat has resolved. Still has some hoarse voice. Denies fever/chills, SOB, wheezing, chest pain, chest congestion, headache, myalgias, nausea, vomiting, diarrhea. Notes some unsteady gait after her illness. Has cane and walker at home, but has not been using them. Past medical history, appointments, medications, allergies reviewed. 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 Brumfield Benign hypertension 07/01/2015 BPPV (benign paroxysmal positional vertigo), unspecified laterality 04/11/2017 CKD (chronic kidney disease) stage 3, GFR 30-59 ml/min ([facility]) Fibrocystic breast disease (FCBD) in female 07/01/2015 Gastroesophageal reflux disease 07/01/2015 Gastrointestinal bleed duodenal ulcer Herpes zoster keratoconjunctivitis 07/01/2015 Hyperlipidemia 2019 Ischemic [...] Patient Allergies ALLERGIES Allergen Reactions Morphine GI Upset, Vomiting Current Medications Current Outpatient Medications on File Prior to Visit Medication Sig amiodarone (PACERONE) 200 mg tablet Take 1 tablet by mouth every afternoon. ferrous sulfate 325 mg (65 mg iron) tablet Take one tablet every other day furosemide (LASIX) 20 mg tablet Take one tablet daily apixaban (ELIQUIS) 5 mg tab(s) Take 1 tablet by mouth two times a day. acyclovir (ZOVIRAX) 800 mg tablet Take one tablet once a day erythromycin (ROMYCIN) 5 mg/gram (0.5 %) ophthalmic ointment Use 1 application in both eyes daily at bedtime. Cholecalciferol, Vitamin D3, 25 mcg (1,000 unit) cap Take 2 capsules by mouth once daily. spironolactone (ALDACTONE) 25 mg tablet Take 25 mg by mouth once daily. carvedilol (COREG) 3.125 mg tablet Take 3.125 mg by mouth two times a day with meals. Vit A,C,H-Ptmg-Ukafwc (ICAPS AREDS) 4,296 mcg-226 mg-90 mg cap Take 1 capsule by mouth once daily. dapagliflozin propanediol (FARXIGA) 10 mg tablet Take 10 mg by mouth daily with breakfast. timolol maleate (TIMOPTIC) 0.5 % ophthalmic solution [...] PRESCRIPTION 1 Drop. Every other day-left eye pantoprazole DR (PROTONIX) 40 mg tablet Take 1 tablet by mouth two times a day. No current facility-administered medications on file prior to visit. Social History Social History Tobacco Use Smoking status: Former Current packs/day: 0.00 Types: Cigarettes Quit date: 04/30/1967 Years since quittin.0 Smokeless tobacco: Never Vaping Use Vaping status: Never Used Substance Use Topics Alcohol use: No Drug use: Never Review of Symptoms REVIEW OF SYSTEMS See HPI EXAM: BP 112/62 Pulse 68 Temp 36.6 ?C (97.9 ?F) Resp 16 Wt 62.7 kg (138 lb 3.2 oz) SpO2 98% BMI 24.48 kg/m? General Appearance: Well appearing, alert, in no acute distress, well-hydrated, well nourished.. Skin: Skin color, texture, (more content not included)...[facility]01-17-2025 History of Present illness Narrative* Amalia Avery MD - 05/16/2024 12:45 PM EST Chief Complaint Patient presents with: Follow Up: EC visit 05/10/24 HPI Dayana Quiñones is a 84 year old female who presents here today for Above Complaints. Accompanied today by daughter. Patient evaluated in EC on 05/10 with following HPI: For the last two days pt has had a cough, hoarse voice, and chest congestion.; Review of Systems Constitutional: Negative for fever. HENT: Positive for sore throat and voice change. Negative for ear pain. Respiratory: Positive for cough. Diagnosed with pneumonia on CXR and started on Doxycycline BID x 5 days. Since discharge, patient has completed her abx and symptoms are improving, but she is not 100%. Cough has improved. Sore throat has resolved. Still has some hoarse voice. Denies fever/chills, SOB, wheezing, chest pain, chest congestion, headache, myalgias, nausea, vomiting, diarrhea. Notes some unsteady gait after her illness. Has cane and walker at home, but has not been using them. Past medical history, appointments, medications, allergies reviewed. 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 Brumfield Benign hypertension 07/01/2015 BPPV (benign paroxysmal positional vertigo), unspecified laterality 04/11/2017 CKD (chronic kidney disease) stage 3, GFR 30-59 ml/min (HCC) Fibrocystic breast disease (FCBD) in female 07/01/2015 Gastroesophageal reflux disease 07/01/2015 Gastrointestinal bleed duodenal ulcer Herpes zoster keratoconjunctivitis 07/01/2015 Hyperlipidemia 2019 Ischemic cardiomyopathy Neutrophilia 12/22/2016 Normally functioning cardiac pacemaker present 11/01/2018 Paroxysmal atrial flutter (HCC) Presence of permanent cardiac pacemaker 2019 S/P CABG (coronary artery bypass graft) S/P MVR (mitral valve repair) Shingles 12/27/2014 ST elevation (STEMI) myocardial infarction involving left anterior descending coronary artery (HCC)2018 Previous Surgical History PAST SURGICAL HISTORY Procedure [...] Patient Allergies ALLERGIES Allergen Reactions Morphine GI Upset, Vomiting Current Medications Current Outpatient Medications on File Prior to Visit Medication Sig amiodarone (PACERONE) 200 mg tablet Take 1 tablet by mouth every afternoon. ferrous sulfate 325 mg (65 mg iron) tablet Take one tablet every other day furosemide (LASIX) 20 mg tablet Take one tablet daily apixaban (ELIQUIS) 5 mg tab(s) Take 1 tablet by mouth two times a day. acyclovir (ZOVIRAX) 800 mg tablet Take one tablet once a day erythromycin (ROMYCIN) 5 mg/gram (0.5 %) ophthalmic ointment Use 1 application in both eyes daily at bedtime. Cholecalciferol, Vitamin D3, 25 mcg (1,000 unit) cap Take 2 capsules by mouth once daily. spironolactone (ALDACTONE) 25 mg tablet Take 25 mg by mouth once daily. carvedilol (COREG) 3.125 mg tablet Take 3.125 mg by mouth two times a day with meals. Vit A,C,Q-Bieu-Vcwldh (ICAPS AREDS) 4,296 mcg-226 mg-90 mg cap Take 1 capsule by mouth once daily. dapagliflozin propanediol (FARXIGA) 10 mg tablet Take 10 mg by mouth daily with breakfast. timolol maleate (TIMOPTIC) 0.5 % ophthalmic solution [...] PRESCRIPTION 1 Drop. Every other day-left eye pantoprazole DR (PROTONIX) 40 mg tablet Take 1 tablet by mouth two times a day. No current facility-administered medications on file prior to visit. Social History Social History Tobacco Use Smoking status: Former Current packs/day: 0.00 Types: Cigarettes Quit date: 04/30/1967 Years since quittin.0 Smokeless tobacco: Never Vaping Use Vaping status: Never Used Substance Use Topics Alcohol use: No Drug use: Never Review of Symptoms REVIEW OF SYSTEMS See HPI EXAM: BP 112/62 Pulse 68 Temp 36.6 C (97.9 F) Resp 16 Wt 62.7 kg (138 lb 3.2 oz) SpO2 98% BMI24.48 kg/m General Appearance: Well appearing, alert, in no acute distress, well-hydrated, well nourished.. Skin: Skin color, texture, turgor normal, no suspicious rashes or lesions. Head: Normocephalic, no masses, lesions, tenderness or abnormalities. Nose/Sinuses: No sinus tenderness. Oropharynx: Negative findings: lips normal without lesions, gums healthy, teeth intact, non-carious, palate normal, tongue midline and normal, soft palate, uvula, and tonsils normal and Positive findings: lesion noted on left buccal mucosa near molars. Patient has been biting this area accidentallyfor the last 2 months. Neck: Supple, no adenopathy; thyroid symmetric, normal size, no bruits. Lungs: Lungs clear to auscultation. No wheezing, rhonchi, rales.. Heart: RRR without murmur, gallop, or rubs. No ectopy. Health Maintenance List Depression Screening Never done Anxiety Screening Never done Advance Directive Discussion Never done DTaP,Tdap,Td Vaccine(1 - Tdap) due on 09/30/2024 RSV Vaccine(1 - 1-dose 75+ series) due on 09/30/2024 Covid-19 Vaccine( season) due on 01/03/2025 Diabetes Screening due on 09/30/2026 Bone Density Screening Completed Influenza Vaccine Completed Pneumococcal Vaccine: 50+ Completed Shingrix Vaccine Discontinued ASSESSMENT/PLAN: 1. Bacterial pneumonia - ICD9: 482.9, ICD10: J15.9 (primary diagnosis) Symptoms improving. Completed doxycycline without side effects. May use OTC cough medicines prn formild cough. Red flags for re-assessment reviewed with patient in detail. 2. Oral mucosal lesion - ICD9: 528.9, ICD10: K13.70 Patient advised to chew on other side of her mouth to see if lesion will heal. If not, would have her follow up with her dentist for further evaluation. May need referral to oral surgeon for biopsy if not improving. 3. Unsteady gait when walking - ICD9: 781.2, ICD10: R26.81 Advised use of walker for the next couple of weeks until she gets her strength back from recent pneumonia. Offered PT referral which she refused. Call if not improving with resolution of symptoms. Discussed fall risk prevention and risks of falls. Amalia Avery MD [facility] History of Present illness Narrative* Antonio Carolina RT(R) - 05/10/2024 11:30 AM EST Radiology Service Progress Note PATIENT NAME: Dayana Quiñones DATE OF SERVICE: May 10, 2024 TIME: 11:28 AM PATIENT IDENTITY VERIFICATION COMPLETED USING TWO (2) IDENTIFIERS: Name and Date of confirmedby patient verbally. FALL SCREENING: Has the patient had 2 falls in the last year or 1 fall with injury or currently using an Ambulatory Assistive Device (Walker, Cane, Wheelchair, Crutches, etc.)? Yes, Patient High Riskfor Falls What interventions were put in place to prevent falls during this visit? Offered Assistance with Transfers/Clothing, Instructed Patient to Remain Seated (Not on Exam Table) Until Exam, and Increased Observations by Caregivers PATIENT GENDER DATA: Assigned female at . status: : No status:NO. PATIENT RELEVANT IMPLANT DATA REVIEWED: Yes PATIENT PRESENTS WITH AN IMPLANTABLE OR ATTACHED LEACH CELL OPERATOR: No RADIOLOGY DEPARTMENT: General X-ray: Exam(s) Completed: Chest X-Ray PERIPHERAL IV DATA: Not applicable SIGNED BY: RT Minoo(R) May 10, 2024 11:28 AM documented in this encounterTr[facility]-11-2025 NoteHNO ID: [id number] Author: ANTONIO CAROLINA RT(Oj) Service: ? Author Type: Automotive Artist Type: Progress Notes Filed: 05/10/2024 11:36 Note Text: Radiology Service Progress Note PATIENT NAME: Dayana Quiñones DATE OF SERVICE: May 10, 2024 TIME: 11:28 AM PATIENT IDENTITY VERIFICATION COMPLETED USING TWO (2) IDENTIFIERS: Name and Date of confirmed by patient verbally. FALL SCREENING: Has the patient had 2 falls in the last year or 1 fall with injury or currently using an Ambulatory Assistive Device (Walker, Cane, Wheelchair, Crutches, etc.)? Yes, Patient High Risk for Falls What interventions were put in place to prevent falls during this visit? Offered Assistance with Transfers/Clothing, Instructed Patient to Remain Seated (Not on Exam Table) Until Exam, and Increased Observations by Caregivers PATIENT GENDER DATA: Assigned female at . status: : No status: NO. PATIENT RELEVANT IMPLANT DATA REVIEWED: Yes PATIENT PRESENTS WITH AN IMPLANTABLE OR ATTACHED LEACH CELL OPERATOR: No RADIOLOGY DEPARTMENT: General X-ray: Exam(s) Completed: Chest X-Ray PERIPHERAL IV DATA: Not applicable SIGNED BY: RT Minoo(R) May 10, 2024 11:28 [facility]01-11-2025 NoteHNO ID: [id number] Author: ARI REINOSO APRN.JOELLE Service: ? Author Type: Nurse Practitioner Type: Progress Notes Filed: 05/10/2024 12:55 Note Text: This note was created using weave energyriter. Subjective Dayana Quiñones is a 84 year old female. HPI For the last two days pt has had a cough, hoarse voice, and chest congestion.; Review of Systems Constitutional: Negative for fever. HENT: Positive for sore throat and voice change. Negative for ear pain. Respiratory: Positive for cough. Objective BP 92/60 Pulse 60 Temp 36.6 ?C (97.9 ?F) Resp 18 Wt 62.1 kg (136 lb 14.5 oz) SpO2 96% BMI 24.25 kg/m? Physical Exam Vitals and nursing note reviewed. Constitutional: General: She is not in acute distress. Appearance: Normal appearance. She is not ill-appearing. HENT: Head: Normocephalic. Mouth/Throat: Mouth: Mucous membranes are moist. Pharynx: No oropharyngeal exudate or posterior oropharyngeal erythema. Eyes: Conjunctiva/sclera: Conjunctivae normal. Cardiovascular: Rate and Rhythm: Normal rate and regular rhythm. Pulmonary: Effort: Pulmonary effort is normal. Breath sounds: Normal breath sounds. Musculoskeletal: General: Normal range of motion. Cervical back: Normal range of motion. Skin: General: Skin is warm and dry. Neurological: General: No focal deficit present. Mental Status: She is alert. Psychiatric: Mood and Affect: Mood normal. Behavior: Behavior normal. Assessment and Plan ASSESSMENT/PLAN: 1. Acute cough - ICD9: 786.2, ICD10: R05.1 (primary diagnosis) As below - XR CHEST 2V FRONTAL/LAT 2. Community acquired pneumonia, unspecified laterality - ICD9: 486, ICD10: J18.9 Chest x-ray was somewhat nonspecific but did have concerns for possible consolidation in the right lower lobe. Patient was given prescription for antibiotic as noted below and recommended follow-up with PCP. - DOXYCYCLINE MONOHYDRATE 100 MG CAPSULE Ari Reinoso APRN.[facility]PM[facility]01-11-2025 History of Present illness Narrative* Ari Reinoso APRN.CNP - 05/10/2024 11:15 AM EST This note was created using NoteWriter. Subjective Dayana Quiñones is a 84 year old female. HPI For the last two days pt has had a cough, hoarse voice, and chest congestion.; Review of Systems Constitutional: Negative for fever. HENT: Positive for sore throat and voice change. Negative for ear pain. Respiratory: Positive for cough. Objective BP 92/60 Pulse 60 Temp 36.6 C (97.9 F) Resp 18 Wt 62.1 kg (136 lb 14.5 oz) SpO2 96% BMI24.25 kg/m Physical Exam Vitals and nursing note reviewed. Constitutional: General: She is not in acute distress. Appearance: Normal appearance. She is not ill-appearing. HENT: Head: Normocephalic. Mouth/Throat: Mouth: Mucous membranes are moist. Pharynx: No oropharyngeal exudate or posterior oropharyngeal erythema. Eyes: Conjunctiva/sclera: Conjunctivae normal. Cardiovascular: Rate and Rhythm: Normal rate and regular rhythm. Pulmonary: Effort: Pulmonary effort is normal. Breath sounds: Normal breath sounds. Musculoskeletal: General: Normal range of motion. Cervical back: Normal range of motion. Skin: General: Skin is warm and dry. Neurological: General: No focal deficit present. Mental Status: She is alert. Psychiatric: Mood and Affect: Mood normal. Behavior: Behavior normal. Assessment and Plan ASSESSMENT/PLAN: 1. Acute cough - ICD9: 786.2, ICD10: R05.1 (primary diagnosis) As below - XR CHEST 2V FRONTAL/LAT 2. Community acquired pneumonia, unspecified laterality - ICD9: 486, ICD10: J18.9 Chest x-ray was somewhat nonspecific but did have concerns for possible consolidation in the right lower lobe. Patient was given prescription for antibiotic as noted below and recommended follow-up with PCP. - DOXYCYCLINE MONOHYDRATE 100 MG CAPSULE Ari Reinoso APRN.JOELLE documented in this encounterTr[facility]-06-[facility] History of Present illness Narrative* PodSilvia garcia APRN.CNP - 01/04/2024 8:00 AM EDT 01/03/2024 Patient presents with: F/U 3 Month SUBJECTIVE: This is a 83 year old, accompanied by son, that is here today for Above Complaints. Since last office visit has been in good health without ER visits or hospitalizations. HTN: Patient is compliant with meds Yes Monitors bp at home: Yes. Denies side effects: Yes. Chest pain: No. Dyspnea: No. Edema: No. Palpitations: No. Syncope: No. Headache: No. Dizziness: No. HYPERLIPIDEMIA: Patient is taking medications: Yes. Patient is watching diet: Yes. Patient denies myalgias: Yes. Patient denies gi upset: Yes HEART: Sees [facility] for a hx of complete heart block, pacemaker, and CAD. Was restartedon Eliquis. Has follow-up next week. Denies bleeding symptoms,SOB, dyspnea, orthopnea, chest pain, palpitations or leg swelling CKD: follow-up with nephrology. No medication changes GERD: taking Protonix as prescribed by GI whom she followed up with for GI bleed. Denies hematochezia or melana PAST MEDICAL HISTORY 2019: Atherosclerotic heart disease of morongo coronary artery without angina pectoris Comment: Dr. Brumfield 07/01/2015: Benign hypertension 04/11/2017: BPPV (benign paroxysmal positional vertigo), unspecified laterality No date: CKD (chronic kidney disease) stage 3, GFR 30-59 ml/min ([facility]) 07/01/2015: Fibrocystic breast disease (FCBD) in female 07/01/2015: Gastroesophageal reflux disease No date: Gastrointestinal bleed Comment: duodenal ulcer 07/01/2015: Herpes zoster keratoconjunctivitis 2019: Hyperlipidemia No date: Ischemic cardiomyopathy 12/22/2016: Neutrophilia 11/01/2018: Normally functioning cardiac pacemaker present No date: Paroxysmal atrial flutter ([facility]) 2019: Presence of permanent cardiac pacemaker No date: S/P CABG (coronary artery bypass graft) No date: S/P MVR (mitral valve repair) 12/27/2014: Shingles 2019: ST elevation (STEMI) myocardial infarction involving left anterior descending coronary artery ([facility]) ALLERGIES Morphine MEDICATIONS Current Outpatient Medications Medication Sig furosemide (LASIX) 20 mg tablet Alteranate 40 mg every other day with 80mg per [facility] spironolactone (ALDACTONE) 25 mg tablet Take 25 mg by mouth once daily. pantoprazole DR (PROTONIX) 40 mg tablet Take 1 tablet by mouth two times a day. carvedilol (COREG) 3.125 mg tablet Take 3.125 mg by mouth two times a day with meals. digoxin (LANOXIN) 125 mcg (0.125 mg) tablet Take 125 mcg by mouth as directed. Patient takes 1 tab po every -- Vit A,C,I-Qbgd-Hflydo (ICAPS AREDS) 4,296 mcg-226 mg-90 mg cap Take 1 capsule by mouth once daily. dapagliflozin propanediol (FARXIGA) 10 mg tablet Take 10 mg by mouth daily with breakfast. timolol maleate (TIMOPTIC) 0.5 % ophthalmic solution [...] PRESCRIPTION 1 Drop. Every other day-left eye acyclovir (ZOVIRAX) 800 mg tablet Take 1 tablet by mouth twice daily. Take at first signs of outbreak. (Patient taking differently: Take 800 mg by mouth once daily. Take at first signs of outbreak.) No current facility-administered medications for this visit. Medications and allergies reviewed by this provider. SOCIAL HISTORY Social History Tobacco Use Smoking status: Former Current packs/day: 0.00 Types: Cigarettes Quit date: 04/30/1967 Years since quittin.7 Smokeless tobacco: Never Vaping Use Vaping status: Never Used Substance Use Topics Alcohol use: No Drug use: Never REVIEW OF SYSTEMS All other reviewed and negative other than HPI. OBJECTIVE: BP 112/62 Pulse 77 Resp 16 Wt 62.4 kg (137 lb 9.1 oz) SpO2 96% BMI 24.37 kg/m . Vital signs reviewed by this provider. APPEARANCE Well appearing, alert, in no acute distress, well-hydrated, well nourished. EYES PERRLA, conjunctiva and sclera normal. HEART RRR with normal S1 and S2, no gallops, no JVD appreciated+ 2/6 murmur head best LUSB LUNG clear to auscultation. No wheezes, rhonchi or rales EXTREMITIES Extremities normal, No deformities, No skin discoloration, and No edema SKIN Skin color, texture, turgor normal, no suspicious rashes or lesions to exposed skin Depression Screening Never done Anxiety Screening Never done Advance Directive Discussion Never done DTaP,Tdap,Td Vaccine(1 - Tdap) due on 09/30/2024 RSV Vaccine(1 - 1-dose 60+ series) due on 09/30/2024 Covid-19 Vaccine( season) due on 01/03/2025 Diabetes Screening due on 09/30/2026 Bone Density Screening Completed Influenza Vaccine Completed Pneumococcal Vaccine: 65+ Completed Shingrix Vaccine Discontinued ASSESSMENT/PLAN: 1. Benign hypertension - ICD9: 401.1, ICD10: I10 (primary diagnosis) - Controlled - Continue current medications - Recommend home blood pressure monitoring, to bring results to next visit - Encouraged sodium restriction, DASH or Mediterranean diet - Recommend regular aerobic exercise - Follow up in 6 months for hypertension visit 2. GERD without esophagitis - ICD9: 530.81, ICD10: K21.9 - stable on current regime 3. Iron deficiency anemia, unspecified iron deficiency anemia type - ICD9: 280.9, ICD10: D50.9 - stable - iron every other day - FERROUS SULFATE 325 MG (65 MG IRON) TABLET 4. Stage 3b chronic kidney disease (HCC) - ICD9: 585.3, ICD10: N18.32 - eGFR: 30 Stable - Counseled on avoiding NSAIDs, adequate hydration - Counseled on low sodium diet - Follow up with kidney medicine 5. Ischemic cardiomyopathy - ICD9: 414.8, ICD10: I25.5 - stable - follow-up with cardiology as scheduled 6. Complete heart block (HCC) - ICD9: 426.0, ICD10: I44.2 - stable - follow-up with cardiology as scheduled 7. Normally functioning cardiac pacemaker present - ICD9: V45.01, ICD10: Z95.0 - stable - follow-up with cardiology as scheduled 8. Chronic congestive heart failure, unspecified heart failure type (HCC) - ICD9: 428.0, ICD10: I50.9 - stable - follow-up with cardiology as scheduled 9. Hyperlipidemia LDL goal <100 - ICD9: 272.4, ICD10: E78.5 - Controlled - Continue current medications - Counseled on healthy diet and regular exercise - Follow up in 6 months, sooner should any other issues arise. 10. Encounter for immunization - ICD9: V03.89, ICD10: Z23 - INFLUENZA VACCINE, PRSV FREE, AGE 65+ YR, HIGH DOSE, TRIVALENT (FLUZONE HIGH-DOSE) Silvia Hunter APRN.BRANCH OFFICE MANAGER Prescription instructions reviewed with patient as applicable. Patient advised if symptoms do not improve or if symptoms worsen sooner, to contact their primary care physician. Potential red flag symptoms discussed with the patient. Reviewed appropriate action plan to take if red flag symptoms occur. Patient agreeable to treatment plan. Medical Decision Making: Problems: Moderate: 2+ stable chronic illnesses Risk: Moderate: Drug management Medical Decision Making Level: 4 - Moderate documented in this encounterTr[facility] Telephone encounter Note * Telephone Encounter - Bell Coleman LPN - 10/02/2023 4:26 PM EDT Spoke with Juani and information listed below given and Juani verbalizes understanding. Bell Coleman LPN [facility]06-04-[facility] Telephone encounter Note* Telephone Encounter - Bell Coleman LPN - 10/02/2023 4:26 PM EDT ----- Message from Amalia Avery MD sent at 10/02/2023 2:53 PM EDT ----- Kidney function stable in CKD stage IIIb range. Recommend low sodium diet <2,000 mg per day, avoidance of NSAIDs, and increased water intake. Keep f/u with nephrology. Anemia has resolved and her iron levels are well within the normal range. I would have her reduce her iron supplement to every other day and f/u with nephrology and Gi as scheduled before stopping completely. WBC and neutrophils very slightly elevated. If she develops symptoms of infection such as fever, cough, rash, nausea/vomiting, diarrhea, or abdominal pain please call the office. [facility]06-04-[facility] Miscellaneous Notes* Telephone Encounter - Bell Coleman LPN - 10/02/2023 4:26 PM EDT Spoke with Juani and information listed below given and Juani verbalizes understanding. Bell Coleman LPN * Telephone Encounter - Bell Coleman LPN - 10/02/2023 4:26 PM EDT ----- Message from Amalia Avery MD sent at 10/02/2023 2:53 PM EDT ----- Kidney function stable in CKD stage IIIb range. Recommend low sodium diet <2,000 mg per day, avoidance of NSAIDs, and increased water intake. Keep f/u with nephrology. Anemia has resolved and her iron levels are well within the normal range. I would have her reduce her iron supplement to every other day and f/u with nephrology and Gi as scheduled before stopping completely. WBC and neutrophils very slightly elevated. If she develops symptoms of infection such as fever, cough, rash, nausea/vomiting, diarrhea, or abdominal pain please call the office. documented in this encounterTr[facility]06-[facility] History of Present illness Narrative* Amalia Avery MD - 10/01/2023 9:07 AM EDT Chief Complaint Patient presents with: Follow Up: 3 month follow up -GI Bleed HPI Dayana Quiñones is a 83 year old female who presents here today for Above Complaints. Accompanied today by her son [place]. Previous HPI: Patient here today with concerns for recent weight loss. Since she increased her lasix from 40 mg daily to 40 mg BID by her mold sander on 07/24, her weight has dropped 10 lbs. States that she has been eating 3 meals per day and has been adhering to the lower sodium diet. Sticking to 1.5 L of fluids per day. Diuresing well with the lasix. Admits to lightheadedness and low BP with increased dose of lasix. Readings at home have typically been 90-100's/60-70's. Denies nausea, vomiting, diarrhea, syncope, orthopnea. Patient is supposed to be on the Lasix BID until 08/07. She has CMP ordered to be completed today. Next appointment with cardiology in August. Patient is tolerating PO iron supplement and has repeat labs ordered for 08/28. Denies hematochezia, melena, SOB, fatigue. Taking Protonix BID since her EGD. Has not followed up with GI still. Interim: Since last OV, patient states the has not had any recurrent GI bleed symptoms including hematochezia, melena, SOB, lightheadedness. She has appointment with Dr. Morton's office on 11/12. Complaint with PPI BID without recent GERD. Patient has f/u appointment with [facility] Cardiology on 10/21. States she has spoken with them on the phone for low BP and back in July they recommended she reduce her Lasix from 80 mg daily to 40 mg one day and 80 mg the next. Since lowering her dosage, she denies lightheadedness/dizziness or syncope. She states that the mold sander told her that her BP dropping into the 90's systolic was ok. At home, readings are typically 90's/60's. Weight stable from last OV and is checking daily weights.remains off of her anticoagulation and ASA for her history of recent GI bleed. Denies chest pain, SOB, LE edema, weight gain, palpitations. CKD: has f/u with nephrology on 11/12 for routine check. With higher dose lasix, will recheck labs today. Denies change in urinary symptoms aside from frequency with her lasix. Past medical history, appointments, medications, allergies reviewed. 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 Brumfield Benign hypertension 07/01/2015 BPPV (benign paroxysmal positional vertigo), unspecified laterality 04/11/2017 CKD (chronic kidney disease) stage 3, GFR 30-59 ml/min ([facility]) Fibrocystic breast disease (FCBD) in female 07/01/2015 Gastroesophageal reflux disease 07/01/2015 Herpes zoster keratoconjunctivitis 07/01/2015 Hyperlipidemia 2019 Ischemic cardiomyopathy Neutrophilia 12/22/2016 Normally functioning cardiac pacemaker present 11/01/2018 Paroxysmal atrial flutter (HCC) Presence of permanent cardiac pacemaker 2019 S/P CABG (coronary artery bypass graft) S/P MVR (mitral valve repair) Shingles 12/27/2014 ST elevation (STEMI) myocardial infarction involving left anterior descending coronary artery (HCC)2019 Previous Surgical History PAST SURGICAL HISTORY Procedure [...] on File Prior to Visit Medication Sig spironolactone (ALDACTONE) 25 mg tablet Take 25 mg by mouth once daily. pantoprazole DR (PROTONIX) 40 mg tablet Take 1 tablet by mouth two times a day. ferrous sulfate 325 mg (65 mg iron) tablet Take 1 tablet by mouth once daily. carvedilol (COREG) 3.125 mg tablet Take 3.125 mg by mouth two times a day with meals. digoxin (LANOXIN) 125 mcg (0.125 mg) tablet Take 125 mcg by mouth as directed. Patient takes 1 tab po every -- furosemide (LASIX) 20 mg tablet Take 0.5 tablets by mouth once daily. (Patient taking differently: Take 40 mg by mouth once daily. Alteranate 40 mg every other day with 80mg per [facility]) Vit A,C,W-Iwyq-Gzqekr (ICAPS AREDS) 4,296 mcg-226 mg-90 mg cap Take 1 capsule by mouth once daily. dapagliflozin propanediol (FARXIGA) 10 mg tablet Take 10 mg by mouth daily with breakfast. timolol maleate (TIMOPTIC) 0.5 % ophthalmic solution Use 1 Drop in the left eye twice daily. atorvastatin (LIPITOR) 20 mg tablet Take 20 mg by mouth daily at bedtime. Difluprednate 0.05 % drop Use 1 Drop in the left eye as directed. Every other day. acyclovir (ZOVIRAX) 800 mg tablet Take 1 tablet by mouth twice daily. Take at first signs of outbreak. (Patient taking differently: Take 800 mg by mouth once daily. Take at first signs of outbreak.) metoprolol succinate ER (TOPROL XL) 25 mg 24 hr tablet Take 25 mg by mouth two times a day. (Patient not taking: Reported on 07/09/2023) apixaban (ELIQUIS) 5 mg tab(s) Take 5 mg by mouth twice daily. (Patient not taking: Reported on 07/09/2023) betamethasone dipropionate (DIPROSONE) 0.05 % cream Apply to affected area twice daily as needed. COMPOUNDED PRESCRIPTION 1 Drop. Every other day-left eye aspirin, enteric coated (ASPIRIN, ENTERIC COATED) 81 mg EC tablet Take 81 mg by mouth once daily. (Patient not taking: Reported on 07/09/2023) No current facility-administered medications on file prior to visit. Social History Social History Tobacco Use Smoking status: Former Types: Cigarettes Quit date: 04/30/1967 Years since quittin.4 Smokeless tobacco: Never Vaping Use Vaping Use: Never used Substance Use Topics Alcohol use: No Drug use: Never Review of Symptoms REVIEW OF SYSTEMS GENERAL: No weight loss, malaise or fevers RESPIRATORY: Negative for cough, hemoptysis, wheezing, COPD, dyspnea or shortness of breath CARDIOVASCULAR: Negative for chest pain, leg swelling, hypertension, CHF or palpitations GI: No nausea, vomiting, or diarrhea SKIN: Negative for lesions, rash, and itching EXAM: BP 98/58 Pulse 78 Resp 16 Wt 60.1 kg (132 lb 9.6 oz) SpO2 96% BMI 23.49 kg/m General Appearance: Well appearing, alert, in [...] Good capillary refill. . Health Maintenance List DTaP,Tdap,Td Vaccine(1 - Tdap) Never done RSV Vaccine(1 - 1-dose 60+ series) Never done Covid-19 Vaccine(2022- season) due on 12/29/2022 Advance Directive Discussion Never done Behavioral Health Screening Never done Diabetes Screening due on 08/06/2026 Bone Density Screening Completed Influenza Vaccine Completed Pneumococcal Vaccine: 65+ Completed Shingrix Vaccine Discontinued Data reviewed Latest Ref Rng 07/09/2023 08/07/2023 08/29/2023 WBC 3.70 - 11.00 k/uL 9.80 8.96 RBC 3.90 - 5.20 m/uL 3.21 (L) 4.26 Hemoglobin 11.5 - 15.5 g/dL 8.5 (L) 11.5 Hematocrit 36.0 - 46.0 % 30.0 (L) 37.5 MCV 80.0 - 100.0 fL 93.5 88.0 MCH 26.0 - 34.0 pg 26.5 27.0 MCHC 30.5 - 36.0 g/dL 28.3 (L) 30.7 RDW-CV 11.5 - 15.0 % 18.2 (H) 22.9 (H) Platelet Count 150 - 400 k/uL 206 203 MPV 9.0 - 12.7 fL 11.7 11.1 Neut% % 72.4 75.3 Abs Neut (ANC) 1.45 - 7.50 k/uL 7.10 6.75 Lymph% % 15.2 12.7 Abs Lymph 1.00 - 4.00 k/uL 1.49 1.14 O'Brien% % 8.3 5.5 Abs O'Brien <0.87 k/uL 0.81 0.49 Eosin% % 3.1 5.7 Abs Eosin <0.46 k/uL 0.30 0.51 (H) Baso% % 0.7 0.6 Abs Baso <0.11 k/uL 0.07 0.05 Immature Gran % % 0.3 0.2 IMMATURE GRANS (ABS) <0.10 k/uL 0.03 <0.03 NRBC /100 WBC 0.2 0.0 Absolute nRBC <0.01 k/uL 0.02 (H) <0.01 DTYPE Auto Auto Protein, Total 6.3 - 8.0 g/dL 6.4 7.8 Albumin 3.9 - 4.9 g/dL 3.5 (L) 4.2 Calcium 8.5 - 10.2 mg/dL 8.8 10.0 Bilirubin, Total 0.2 - 1.3 mg/dL 0.9 0.7 Alkaline Phosphatase 34 - 123 U/L 109 126 (H) AST 13 - 35 U/L 37 (H) 29 ALT 7 - 38 U/L 22 15 Glucose 74 - 99 mg/dL 86 169 (H) BUN 7 - 21 mg/dL 15 30 (H) Creatinine 0.58 - 0.96 mg/dL 1.23 (H) 1.63 (H) Sodium 136 - 144 mmol/L 139 138 Potassium 3.7 - 5.1 mmol/L 4.3 4.0 Chloride 97 - 105 mmol/L 103 95 (L) CO2 22 - 30 mmol/L 22 27 Anion Gap 9 - 18 mmol/L 14 16 eGFR >=60 mL/min/1.73m 43 (L) 31 (L) Iron 41 - 186 ug/dL 303 (H) 61 TIBC 232 - 386 ug/dL 375 311 Transferrin Saturation 15.0 - 57.0 % 80.8 (H) 19.6 NT Pro BNP <450 pg/mL 10,678 (H) 6,563 (H) Ferritin 14.7 - 205.1 ng/mL 179.0 62.6 Legend: (L) Low (H) High ASSESSMENT/PLAN: 1. Gastrointestinal hemorrhage associated with duodenal ulcer - ICD9: 532.40, ICD10: K26.4 (primarydiagnosis) No recurrent symptoms of GI bleed. Repeat labs as ordered. F/u with GI as scheduled. Continue iron supplement until we get labs back. Continue PPI. Red flags for re-assessment reviewed with patient in detail. 2. GERD without esophagitis - ICD9: 530.81, ICD10: K21.9 - Continue treatment with Protonix 40 mg BID 3. Iron deficiency anemia, unspecified iron deficiency anemia type - ICD9: 280.9, ICD10: D50.9 - COMPLETE BLOOD COUNT AND DIFFERENTIAL - IRON AND TIBC - FERRITIN 4. Benign hypertension - ICD9: 401.1, ICD10: I10 - Controlled - Continue current medications - Recommend home blood pressure monitoring, to bring results to next visit - Encouraged sodium restriction, DASH or Mediterranean diet - Recommend regular aerobic exercise 5. Stage 3b chronic kidney disease (HCC) - ICD9: 585.3, ICD10: N18.32 Recheck CMP. - Counseled on avoiding NSAIDs, adequate hydration - Counseled on low sodium diet - Follow up with kidney medicine - COMPREHENSIVE METABOLIC PANEL 6. Ischemic cardiomyopathy - ICD9: 414.8, ICD10: I25.5 Asymptomatic on current regimen. No changes. Will f/u cardiology recommendations. 7. Complete heart block (HCC) - ICD9: 426.0, ICD10: I44.2 Asymptomatic on current regimen. No changes. Will f/u cardiology recommendations. 8. Normally functioning cardiac pacemaker present - ICD9: V45.01, ICD10: Z95.0 Asymptomatic on current regimen. No changes. Will f/u cardiology recommendations. 9. Chronic congestive heart failure, unspecified heart failure type (HCC) - ICD9: 428.0, ICD10: I50.9 Asymptomatic on current regimen. No changes. Will f/u cardiology recommendations. 10. Hyperlipidemia LDL goal <100 - ICD9: 272.4, ICD10: E78.5 - Continue current medications - Counseled on healthy diet and regular exercise Amalia Avery MD [facility] Telephone encounter Note * Telephone Encounter - Kelly Hair LPN - 08/30/2023 4:55 PM EDT Honed patient and updated her with provider's message & patient voiced understanding. Kelly Hair LPN [facility]05-02[facility]24 Miscellaneous Notes* Telephone Encounter - Kelly Hair LPN - 08/30/2023 4:55 PM EDT Honed patient and updated her with provider's message & patient voiced understanding. Kelly Hair LPN * Telephone Encounter - Amalia Avery MD - 08/30/2023 4:47 PM EDT I would have her try sugar free hard candy, lozenges or gum to help generate saliva and take regular sips of water. * Telephone Encounter - Joan Mi MA - 08/30/2023 4:34 PM EDT Patient informed and verbalized understanding. States she drinks plenty of water. Does not drink much caffeine. Admits to 1 cup of coffee maybe every other day. Says her mouth is so severely dry sometimes her tongue gets stuck to the roof of her mouth. Drinking water doesn't help. She'll take a sip of water and states within seconds her mouth is dry again. Inquiring about OTC lozenges or hard candies she could try to give her some moisture. Any recommendations? Joan Mi MA * Telephone Encounter - Amalia Avery MD - 08/30/2023 4:04 PM EDT I suspect her dry mouth is due to her two diuretics (lasix and aldactone). I would have her adhere to any fluid restrictions she has discussed with her mold sander and encourage her to drink water instead of caffeinated beverages like tea or coffee. * Telephone Encounter - Kelly Hair LPN - 08/30/2023 2:40 PM EDT Phoned patient and reviewed provider's message with her. Patient voiced understanding. Patient thenasked what she can take or do for continuous dry mouth. She reports she has to watch her fluid intake and doesn't know if maybe a medication could be the cause but figures there is something she can do. Advised her would check with provider and see what he recommends. She voiced understanding. * Telephone Encounter - Kelly Hair LPN - 08/30/2023 2:37 PM EDT ----- Message from Amalia Avery MD sent at 08/30/2023 2:19 PM EDT ----- Anemia has resolved. Iron levels and iron stores are both low normal. Continue iron supplement. Will discuss further at upcoming OV. [facility]Tr[facility] Telephone encounter Note * Telephone Encounter - Amalia Avery MD - 08/30/2023 4:47 PM EDT I would have her try sugar free hard candy, lozenges or gum to help generate saliva and take regular sips of water. [facility]05-02-[facility] Telephone encounter Note* Telephone Encounter - Joan Mi MA - 08/30/2023 4:34 PM EDT Patient informed and verbalized understanding. States she drinks plenty of water. Does not drink much caffeine. Admits to 1 cup of coffee maybe every other day. Says her mouth is so severely dry sometimes her tongue gets stuck to the roof of her mouth. Drinking water doesn't help. She'll take a sip of water and states within seconds her mouth is dry again. Inquiring about OTC lozenges or hard candies she could try to give her some moisture. Any recommendations? Joan Mi MA [facility]05-[facility] Telephone encounter Note* Telephone Encounter - Amalia Avery MD - 08/30/2023 4:04 PM EDT I suspect her dry mouth is due to her two diuretics (lasix and aldactone). I would have her adhere to any fluid restrictions she has discussed with her mold sander and encourage her to drink water instead of caffeinated beverages like tea or coffee. [facility] Telephone encounter Note* Telephone Encounter - Kelly Hair LPN - 08/30/2023 2:40 PM EDT Phoned patient and reviewed provider's message with her. Patient voiced understanding. Patient thenasked what she can take or do for continuous dry mouth. She reports she has to watch her fluid intake and doesn't know if maybe a medication could be the cause but figures there is something she can do. Advised her would check with provider and see what he recommends. She voiced understanding. [facility] Telephone encounter Note* Telephone Encounter - Kelly Hair LPN - 08/30/2023 2:37 PM EDT ----- Message from Amalia Avery MD sent at 08/30/2023 2:19 PM EDT ----- Anemia has resolved. Iron levels and iron stores are both low normal. Continue iron supplement. Will discuss further at upcoming OV. [facility]04-10[facility] Miscellaneous Notes* Telephone Encounter - Amalia Avery MD - 08/08/2023 9:21 AM EDT Her kidney function is most likely down due to increasing her lasix to BID. We discussed this yesterday. F/u with cardiology as discussed in office. * Telephone Encounter - Joyec Bates MA - 08/08/2023 9:02 AM EDT Patient notified and verbalized understanding. OV note, labs, and CXR faxed to [facility] Pt notes that she recently seen nephrology and Dr. Guzman said kidney's all ok. Please review and advise. Scan on 07/19/2023 11:06 PM by Provider, External, PEDRO PABLO: Miscellaneous Lab Joyce Bates MA * Telephone Encounter - Amalia Avery MD - 08/08/2023 8:02 AM EDT Kidney function is down compared to 1 month ago, but still in CKD stage IIIb range. BNP improving which is a sign of improving heart failure. Please fax results to [facility] mold sander's office along with my OV from yesterday and CXR results. documented in this encounterTr[facility]04-[facility] History of Present illness Narrative* Jenn Nunez RT(R) - 08/07/2023 4:40 PM EDT Radiology Service Progress Note PATIENT NAME: Dayana Quiñones DATE OF SERVICE: August 07, 2023 TIME: 4:32 PM PATIENT IDENTITY VERIFICATION COMPLETED USING TWO (2) IDENTIFIERS: Name and Date of confirmedby patient verbally. FALL SCREENING: Has the patient had 2 falls in the last year or 1 fall with injury or currently using an Ambulatory Assistive Device (Walker, Cane, Wheelchair, Crutches, etc.)? Yes, Patient High Riskfor Falls What interventions were put in place to prevent falls during this visit? Instructed Patient to Callfor Help if Needed, Offered Assistance with Transfers/Clothing, and Increased Observations by Caregivers PATIENT GENDER DATA: Female. status: : No status: NO. PATIENT RELEVANT IMPLANT DATA REVIEWED: Yes PATIENT PRESENTS WITH AN IMPLANTABLE OR ATTACHED LEACH CELL OPERATOR: No RADIOLOGY DEPARTMENT: General X-ray: Exam(s) Completed: Chest X-Ray PERIPHERAL IV DATA: Not applicable SIGNED BY: RT Tavia(R) August 07, 2023 4:32 PM documented in this encounterTr[facility]04-[facility]-20[facility] History of Present illness Narrative* Amalia Avery MD - 08/07/2023 3:31 PM EDT Chief Complaint Patient presents with: Weight Problem: Patient stated excessive weight loss Anemia: Patient concerned with iron furosemide concerns HPI Dayana Quiñones is a 83 year old female who presents here today for Above Complaints. Accompanied today by her son. Patient here today with concerns for recent weight loss. Since she increased her lasix from 40 mg daily to 40 mg BID by her mold sander on 07/24, her weight has dropped 10 lbs. States that she has been eating 3 meals per day and has been adhering to the lower sodium diet. Sticking to 1.5 L of fluids per day. Diuresing well with the lasix. Admits to lightheadedness and low BP with increased dose of lasix. Readings at home have typically been 90-100's/60-70's. Denies nausea, vomiting, diarrhea, syncope, orthopnea. Patient is supposed to be on the Lasix BID until 08/07. She has CMP ordered to be completed today. Next appointment with cardiology in August. Patient is tolerating PO iron supplement and has repeat labs ordered for 08/28. Denies hematochezia, melena, SOB, fatigue. Taking Protonix BID since her EGD. Has not followed up with GI still. Past medical history, appointments, medications, allergies reviewed. 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 Brumfield Benign hypertension 07/01/2015 BPPV (benign paroxysmal positional vertigo), unspecified laterality 04/11/2017 CKD (chronic kidney disease) stage 3, GFR 30-59 ml/min ([facility]) Fibrocystic breast disease (FCBD) in female 07/01/2015 Gastroesophageal reflux disease 07/01/2015 Herpes zoster keratoconjunctivitis 07/01/2015 Hyperlipidemia 2019 Ischemic cardiomyopathy Neutrophilia 12/22/2016 Normally functioning cardiac pacemaker present 11/01/2018 Paroxysmal atrial flutter (HCC) Presence of permanent cardiac pacemaker 2018 S/P CABG (coronary artery bypass graft) S/P MVR (mitral valve repair) Shingles 12/27/2014 ST elevation (STEMI) myocardial infarction involving left anterior descending coronary artery (HCC)2019 Previous Surgical History PAST SURGICAL HISTORY Procedure [...] on File Prior to Visit Medication Sig spironolactone (ALDACTONE) 25 mg tablet Take 25 mg by mouth once daily. ferrous sulfate 325 mg (65 mg iron) tablet Take 1 tablet by mouth once daily. carvedilol (COREG) 3.125 mg tablet Take 3.125 mg by mouth two times a day with meals. digoxin (LANOXIN) 125 mcg (0.125 mg) tablet Take 125 mcg by mouth as directed. Patient takes 1 tab po every -- furosemide (LASIX) 20 mg tablet Take 0.5 tablets by mouth once daily. (Patient taking differently: Take 40 mg by mouth two times a day.) Vit A,C,C-Olji-Wldkup (ICAPS AREDS) 4,296 mcg-226 mg-90 mg cap Take 1 capsule by mouth once daily. dapagliflozin propanediol (FARXIGA) 10 mg tablet Take 10 mg by mouth daily with breakfast. timolol maleate (TIMOPTIC) 0.5 % ophthalmic solution Use 1 Drop in the left eye twice daily. atorvastatin (LIPITOR) 20 mg tablet Take 20 mg by mouth daily at bedtime. Difluprednate 0.05 % drop Use 1 Drop in the left eye as directed. Every other day. acyclovir (ZOVIRAX) 800 mg tablet Take 1 tablet by mouth twice daily. Take at first signs of outbreak. (Patient taking differently: Take 800 mg by mouth once daily. Take at first signs of outbreak.) pantoprazole DR (PROTONIX) 40 mg tablet Take 40 mg by mouth once daily. (Patient not taking: Reported on 08/07/2023) metoprolol succinate ER (TOPROL XL) 25 mg 24 hr tablet Take 25 mg by mouth two times a day. (Patient not taking: Reported on 07/09/2023) apixaban (ELIQUIS) 5 mg tab(s) Take 5 mg by mouth twice daily. (Patient not taking: Reported on 07/09/2023) betamethasone dipropionate (DIPROSONE) 0.05 % cream Apply to affected area twice daily as needed. Cholecalciferol, Vitamin D3, 2,000 unit cap Take 1 capsule by mouth once daily. (Patient not taking: Reported on 07/09/2023) COMPOUNDED PRESCRIPTION 1 Drop. Every other day-left eye aspirin, enteric coated (ASPIRIN, ENTERIC COATED) 81 mg EC tablet Take 81 mg by mouth once daily. (Patient not taking: Reported on 07/09/2023) No current facility-administered medications on file prior to visit. Social History Social History Tobacco Use Smoking status: Former Types: Cigarettes Quit date: 04/30/1967 Years since quittin.3 Smokeless tobacco: Never Vaping Use Vaping Use: Never used Substance Use Topics Alcohol use: No Drug use: Never Review of Symptoms REVIEW OF SYSTEMS See HPI EXAM: BP 96/60 Pulse 89 Resp 16 Wt 60.2 kg (132 lb 12.8 oz) SpO2 97% BMI 23.52 kg/m General Appearance: Well appearing, alert, in [...] cyanosis. Good capillary refill. Health Maintenance List DTaP,Tdap,Td Vaccine(1 - Tdap) Never done RSV Vaccine(1 - 1-dose 60+ series) Never done Covid-19 Vaccine(2022- season) due on 12/29/2022 Advance Directive Discussion Never done Behavioral Health Screening Never done Diabetes Screening due on 07/08/2026 Bone Density Screening Completed Influenza Vaccine Completed Pneumococcal Vaccine: 65+ Completed Shingrix Vaccine Discontinued ASSESSMENT/PLAN: 1. Acute on chronic systolic heart failure (HCC) - ICD9: 428.23, ICD10: I50.23 (primary diagnosis) I suspect patient's weight loss is related to diuresis after increasing her lasix to BID. SOB improved. Denies orthopnea. Will recheck CMP, BNP, and CXR today and fax results to her mold sander's office. Continue lasix BID until instructed by their office to reduce her dosage. Continue sodium and fluid restrictions. Red flags for re-assessment reviewed with patient in detail. - NT PRO BNP - XR CHEST 2V FRONTAL/LAT 2. Shortness of breath at rest - ICD9: 786.05, ICD10: R06.02 Resolved. 3. Weight loss - ICD9: 783.21, ICD10: R63.4 See above. 4. Gastrointestinal hemorrhage associated with duodenal ulcer - ICD9: 532.40, ICD10: K26.4 No recurrent symptoms of bleeding. Continue protonix BID. F/u with GI as previously recommended. Continue daily iron supplement with recheck on 08/28 as ordered. 5. Iron deficiency anemia, unspecified iron deficiency anemia type - ICD9: 280.9, ICD10: D50.9 See above. Color improved today. 6. Stage 3a chronic kidney disease (HCC) - ICD9: 585.3, ICD10: N18.31 Recheck CMP. - Counseled on avoiding NSAIDs, adequate hydration - Counseled on low sodium diet I spent a total of 50 minutes on the date of the service which included preparing to see the patient, [id number] patient care, completing clinical documentation, obtaining and/or reviewing separately obtained history, performing a medically appropriate examination, counseling and educating the pat ient/family/caregiver, and ordering medications, tests, or procedures. Amalia Avery MD documented in this [facility]Tr[facility]04-[facility] Miscellaneous Notes* Telephone Encounter - Kelly Hair LPN - 08/06/2023 11:32 AM EDT Patient updated. Patient will have labs drawn after her 08/07/23 appointment with PCP. * Telephone Encounter - Amalia Avery MD - 08/06/2023 9:29 AM EDT CMP ordered. Make sure she tells the lab she has orders from today and 07/29 to be drawn. * Telephone Encounter - Sarah Castanon LPN - 08/06/2023 9:15 AM EDT [facility] calling and would like to add BMP to Lab work she is getting drawn tomorrow. Please file. documented in this encounterTr[facility]04-[facility] Evaluation note* Diagnosis Stage 3a chronic kidney disease (HCC)- Primary documented in this encounter [facility]04-[facility] Miscellaneous Notes* Telephone Encounter - Manasa Blackmon RN - 08/01/2023 5:24 PM EDT Spoke with patient's daughterJuani. Given message from provider's office. She verbalizes understanding. Appointment scheduled on 08/06 per daughter's request. Manasa Blackmon RN * Telephone Encounter - Amalia Avery MD - 08/01/2023 4:28 PM EDT Its very difficult for me to say what is causing this without doing an exam. Recommend OV to discuss weight loss. * Telephone Encounter - Manasa Blackmon RN - 08/01/2023 3:51 PM EDT Patient's daughter, Juani calling to let provider know that patient has lost 15# since her last OV on 07/09/23. She weighs 134 # today. No change in appetite but daughter says patient has very low energy. Does not want to get out of chair. No other symptoms. Dr. Brumfield increased her Lasix to 40 mg twice daily about one and a half weeks ago. Family is wondering if weight loss is due to increased diuretic or other reason? Asking for recommendation. Offered appointment but daughter declined. Manasa Blackmon RN documented in this encounterTr[facility]04-[facility]-2024 Miscellaneous Notes* Telephone Encounter - Amalia Avery MD - 07/30/2023 1:56 PM EDT Reviewed. * Telephone Encounter - Kelly Hair LPN - 07/30/2023 12:03 PM EDT Phoned patient and reviewed results and recommendations with her. Patient voiced understanding. Patient reported that she is currently taking 40 mg of lasix BID until the 10th per [facility]. She wanted you to be aware. * Telephone Encounter - Amalia Avery MD - 07/30/2023 10:56 AM EDT Her iron level was almost 2 times the normal amount on our labs, which is why I stopped her iron. Anemia was caused by GI bleed and if he bleed was stopped, her hemoglobin levels should continue to improve. Per Dr. Guzman's office visit, the iron levels completed at [facility] were still low around 20. Will restarther iron supplement now. Recheck levels in 1 month. * Telephone Encounter - Constanza Robles LPN - 07/30/2023 10:33 AM EDT Patient calling she has seen Dr Christie Guzman last week and she was asking why patient stopped taking the iron with her hemoglobin being still low? She was going to send copy of office notes to PCP office. Patient said she was to ask PCP about this? Please advise documented in this encounterTr[facility]03-13-2024 Miscellaneous Notes* Telephone Encounter - Laxmi Ugalde RN - 07/11/2023 11:27 AM EDT Daughter (Juani) calls to let provider know that she was able to get patient in with Dr. Brumfield on SundayJuly 12. Per previous TE notified Juani Sunday with Dr. Brumfield is ok. Laxmi Ugalde, RN documented in this encounterTr[facility]03-12-2024 Miscellaneous Notes* Telephone Encounter - Kelly Hair LPN - 07/10/2023 5:57 PM EDT Phoned patient's daughter Juani and reviewed results and recommendations with her. She reports she will contact patient/her mom and update her with results and Dr avery's recommendations. She will contact [facility] tomorrow to see if able to get in on or before Sunday. If unable to will call back in here and schedule follow up with Dr Avery. Forwarding records to Dr Brumfield's office as advised. * Telephone Encounter - Amalia Avery MD - 07/10/2023 5:09 PM EDT Despite her improving symptoms at yesterday's OV, her chest xray today shows signs of fluid overload related to CHF. Recommend she increase her Lasix to 40 mg daily (starting today) for the next 3 days and will need to schedule OV with cardiology for further management. If she cannot get in with them, I would recommend she f/u with our office in 2-3 days. Please fax xray results along with recent labs and recommendations to [facility] cardiology. documented in this encounterTr[facility]03-12-2024 History of Present illness Narrative* Antonio Carolina, RT(R) - 07/10/2023 3:30 PM EDT Radiology Service Progress Note PATIENT NAME: Dayana Quiñones DATE OF SERVICE: July 10, 2023 TIME: 3:31 PM PATIENT IDENTITY VERIFICATION COMPLETED USING TWO (2) IDENTIFIERS: Name and Date of confirmedby patient verbally. FALL SCREENING: Has the patient had 2 falls in the last year or 1 fall with injury or currently using an Ambulatory Assistive Device (Walker, Cane, Wheelchair, Crutches, etc.)? Yes, Patient High Riskfor Falls What interventions were put in place to prevent falls during this visit? Offered Assistance with Transfers/Clothing, Instructed Patient to Remain Seated (Not on Exam Table) Until Exam, and Increased Observations by Caregivers PATIENT GENDER DATA: Female. status: : No status: NO. PATIENT RELEVANT IMPLANT DATA REVIEWED: Yes PATIENT PRESENTS WITH AN IMPLANTABLE OR ATTACHED LEACH CELL OPERATOR: No RADIOLOGY DEPARTMENT: General X-ray: Exam(s) Completed: Chest X-Ray PERIPHERAL IV DATA: Not applicable SIGNED BY: RT Minoo(R) July 10, 2023 3:31 PM documented in this encounterTr[facility]03-12-2024 Miscellaneous Notes* Telephone Encounter - Kelly Hair LPN - 07/10/2023 12:35 PM EDT Labs forwarded to Dr Brumfield's office. * Telephone Encounter - Kelly Hair LPN - 07/10/2023 12:20 PM EDT Attempted to phone patient but got recording saying all circuits are busy. Contacted patient's daughter Juani who was already reviewing lab results. I went over results and recommendations with her. She asked that I forward the message to patient's Mychart and she would review results with her mom/patient. She reports her sister will bring patient in for CXR tonight after she gets off work. She stated if her mom has any questions they will call back in. * Telephone Encounter - Amalia Avery MD - 07/10/2023 9:28 AM EDT Improving anemia. Hemoglobin up from 7.7 to 8.5. her iron level is elevated and her ferritin level is in the normal range. I would have her discontinue the iron supplement at this time based on theseresults and follow up with GI as discussed in office. Kidney function stable on 10 mg lasix daily. Patient's blood work shows elevated BNP up from 1,040 in the ER to 10,678 on these labs. This was ordered to evaluate for signs of heart failure and fluid overload. She did not have any leg swelling on her exam yesterday and her weight was down 1 lb from 06/27. Lungs sounded clear and SOB had improved. She did have bilateral pleural effusions on CTA in the ER, so would recommend checking CXR todayto follow up on this based on this high BNP result. I would have her adhere to a low sodium diet less than 2,000 mg of sodium per day, check daily weights and call our office or her mold sander if she gains more than 2-3 lbs in 24 hours or more than 5 lbs total, and monitor for worsening swelling and SOB. Please fax results to Dr. Brumfield's office for review prior to her upcoming OV next week. documented in this encounterTr[facility]03-12-2024 Miscellaneous Notes* Telephone Encounter - Genesis Oliva RN - 07/10/2023 8:39 AM EDT Per providers nurse Pt came in for an OV and Pt will not be going to this facility. * Telephone Encounter - Amalia Avery MD - 07/03/2023 1:11 PM EST Will review and complete * Telephone Encounter - Kelly Hair LPN - 07/03/2023 1:06 PM EST Application with cover letter received on 07/02/23 and placed on provider's desk for review. * Telephone Encounter - Kelly Hair LPN - 06/29/2023 2:43 PM EST Again received a blank generic snf admission form w/o any information on facility or patient. Contacted [facility] and spoke with Rashida and advised her that I know we are waiting on form from their facility for patient, however, again informed her I can't be sure these are their forms or that they are for the patient as no cover letter or patient information accompanied the fax. Updatedpatient's daughter Juani of this as well. * Telephone Encounter - Kelly Hair LPN - 06/29/2023 9:09 AM EST Contacted patient's daughter to advise I had contacted [facility] yesterday due to nothing receivedyet. Requested when they forwarded paperwork that they include a cover letter. Advised her as of this time nothing received yet. She stated she would contact them again. * Telephone Encounter - Kelly Hair LPN - 06/28/2023 1:37 PM EST Reviewed incoming faxes and received a partial snf admission form that has no patient infolisted nor does it have any LTC info on it. Contacted [facility] and request they fax forms over along with a cover letter to ensure we have correct patient and LTC facility. * Telephone Encounter - Amalia Avery MD - 06/28/2023 1:28 PM EST Yesterday was not a physical, but I will work on the forms once they are faxed to our office. * Telephone Encounter - Genesis Oliva RN - 06/28/2023 12:07 PM EST Pts daughter called in and reports [facility] She is going to have them send over the form they need filled out to start the admission process.She said she didn't know if provider felt appointment yesterday was a physical, or if they would need to set up another appointment for her. Pt is asking if the form could be filled out as soon as possible to start the admission process. Please call daughter with update. documented in this encounterTr[facility]-11-[facility]24 History of Present illness Narrative* Amalia Avery MD - 07/09/2023 1:33 PM EDT Chief Complaint Patient presents with: Follow Up: SOB HPI Dayana Quiñones is a 83 year old female who presents here today for ER follow up and SOB. Accompanied today by daughter. Patient evaluated at [facility] on 06/27 after we sent her via car with her daughter for increasing SOB after recent hospitalization for GI bleed 2/2 duodenal ulcers and acute on chronic CHF exacerbation. Workup in the ER showed stable anemia with hemoglobin of 7.7. D dimer elevated with CTA chest negativefor PE but did show pulmonary fibrosis and bilateral pleural effusions, right worse than left. ER physician offered admission for transfusion and monitoring her status which she refused. Discharged home with recommendation to follow up with our office. Since discharge, patient has reached out to her mold sander and they recommended she continue to hold her Eliquis and has f/u with them on 07/19. They had her on lasix 20 mg and have since weaned herdown to 10 mg daily. Still has not scheduled OV with GI for repeat EGD and f/u on GI bleed 2/2 duodenal ulcers. We recommended she start on daily iron last week for her anemia which she has been taking without side effects. SOB does seem to be improving, but is still SOB with PT and walking down long hallway. Does not get SOB with ADLs. Checking her oxygen level at home which has been around 94-95%. Using walker for ambulation. Past medical history, appointments, medications, allergies reviewed. 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 [...] flutter (HCC) Presence of permanent cardiac pacemaker 2018 S/P CABG (coronary artery bypass graft) S/P MVR (mitral valve repair) Shingles 12/27/2014 ST elevation (STEMI) myocardial infarction involving left anterior descending coronary artery (HCC)2018 Previous Surgical History PAST SURGICAL HISTORY Procedure [...] mg tablet Take 3.125 mg by mouth two times a day with meals. digoxin (LANOXIN) 125 mcg (0.125 mg) tablet Take 125 mcg by mouth as directed. Patient takes 1 tab po every -- ferrous sulfate 325 mg (65 mg iron) tablet Take 1 tablet by mouth once daily. pantoprazole DR (PROTONIX) 40 mg tablet Take 40 mg by mouth once daily. furosemide (LASIX) 40 mg tablet Take 1 tablet by mouth once daily. (Patient taking differently: Take 20 mg by mouth once daily. Patient reports taking 1/2 tab (10mg) daily) Vit A,C,W-Ajwj-Mjdlsf (ICAPS AREDS) 4,296 mcg-226 mg-90 mg cap Take 1 capsule by mouth once daily. dapagliflozin propanediol (FARXIGA) 10 mg tablet Take 10 mg by mouth daily with breakfast. timolol maleate (TIMOPTIC) 0.5 % ophthalmic solution Use 1 Drop in the left eye twice daily. atorvastatin (LIPITOR) 20 mg tablet Take 20 mg by mouth daily at bedtime. COMPOUNDED PRESCRIPTION 1 Drop. Every other day-left eye acyclovir (ZOVIRAX) 800 mg tablet Take 1 tablet by mouth twice daily. Take at first signs of outbreak. (Patient taking differently: Take 800 mg by mouth once daily. Take at first signs of outbreak.) spironolactone (ALDACTONE) 25 mg tablet Take 1 tablet by mouth once daily. (Patient not taking: Reported on 07/09/2023) metoprolol succinate ER (TOPROL XL) 25 mg 24 hr tablet Take 25 mg by mouth two times a day. (Patient not taking: Reported on 07/09/2023) apixaban (ELIQUIS) 5 mg tab(s) Take 5 mg by mouth twice daily. (Patient not taking: Reported on 07/09/2023) betamethasone dipropionate (DIPROSONE) 0.05 % cream Apply to affected area twice daily as needed. Difluprednate 0.05 % drop Use 1 Drop in the left eye as directed. Every other day. Cholecalciferol, Vitamin D3, 2,000 unit cap Take 1 capsule by mouth once daily. (Patient not taking: Reported on 07/09/2023) aspirin, enteric coated (ASPIRIN, ENTERIC COATED) 81 mg EC tablet Take 81 mg by mouth once daily. (Patient not taking: Reported on 07/09/2023) No current facility-administered medications on file prior to visit. Social History Social History Tobacco Use Smoking status: Former Types: Cigarettes Quit date: 04/30/1967 Years since quittin.2 Smokeless tobacco: Never Vaping Use Vaping Use: Never used Substance Use Topics Alcohol use: No Drug use: Never Review of Symptoms REVIEW OF SYSTEMS GENERAL: No weight loss, malaise or fevers RESPIRATORY: Negative for cough, hemoptysis, wheezing, COPD. CARDIOVASCULAR: Negative for chest pain, leg swelling, hypertension, CHF or palpitations GI: No nausea, vomiting, or diarrhea SKIN: Negative for lesions, rash, and itching EXAM: BP 102/64 Pulse 69 Resp 20 Wt 67.8 kg (149 lb 6.4 oz) SpO2 97% BMI 26.47 kg/m General Appearance: Well appearing, alert, in no acute distress, well-hydrated, well nourished. Able to talk in complete sentences without SOB. Skin: Pallor appears improved. Patient has color in her cheeks today. Lungs: Lungs clear to auscultation. No wheezing, rhonchi, rales.. Heart: RRR without murmur, gallop, or rubs. No ectopy. Abdomen: Normal abdominal exam, Abdomen soft, non-tender. Bowel sounds normal. No masses, organomegaly. Extremities: No deformities, edema, skin discoloration, clubbing or cyanosis. Good capillary refill. . Health Maintenance List DTaP,Tdap,Td Vaccine(1 - Tdap) Never done RSV Vaccine(1 - 1-dose 60+ series) Never done Covid-19 Vaccine( - 2022- season) due on 12/29/2022 Advance Directive Discussion Never done Depression Assessment Never done Diabetes Screening due on 04/04/2026 Bone Density Screening Completed Influenza Vaccine Completed Pneumococcal Vaccine: 65+ Completed Shingrix Vaccine Discontinued Data reviewed Component Latest Ref Rng & Units 04/04/2023 04/19/2023 Protein, Total 6.3 - 8.0 g/dL 7.2 Albumin 3.9 - 4.9 g/dL 3.9 Calcium 8.5 - 10.2 mg/dL 9.5 Bilirubin, Total 0.2 - 1.3 mg/dL 1.0 Alkaline Phosphatase 34 - 123 U/L 103 AST 13 - 35 U/L 25 ALT 7 - 38 U/L 17 Glucose 74 - 99 mg/dL 80 BUN 7 - 21 mg/dL 27 (H) Creatinine 0.58 - 0.96 mg/dL 1.49 (H) Sodium 136 - 144 mmol/L 137 Potassium 3.7 - 5.1 mmol/L 4.6 3.8 Chloride 97 - 105 mmol/L 102 CO2 22 - 30 mmol/L 23 Anion Gap 9 - 18 mmol/L 12 eGFR >=60 mL/min/1.73m 34 (L) ASSESSMENT/PLAN: 1. Gastrointestinal hemorrhage associated with duodenal ulcer - ICD9: 532.40, ICD10: K26.4 (primarydiagnosis) SOB improving with iron supplement without recurrent BRBPR. Will have her f/u with GI as previouslyordered and recheck labs today. Remain off of anticoagulation per cardiology recommendations. Call with recurrent signs of bleeding, worsening SOB, lightheadedness/dizziness. - CBC + DIFF - COMP METABOLIC PANEL 2. Shortness of breath at rest - ICD9: 786.05, ICD10: R06.02 See above. 3. Anemia, unspecified type - ICD9: 285.9, ICD10: D64.9 See above. - IRON + TIBC - FERRITIN BLD 4. Pallor - ICD9: 782.61, ICD10: R23.1 See above. 5. Acute on chronic systolic heart failure (HCC) - ICD9: 428.23, ICD10: I50.23 No symptoms of recurrent CHF exacerbation today. Continue lasix as prescribed by cardiology. Recheck BNP. Will call with results. Red flags for re-assessment reviewed with patient in detail. - NT PRO BNP 6. 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 Stable. Will monitor. 7. Stage 3a chronic kidney disease (HCC) - ICD9: 585.3, ICD10: N18.31 - eGFR: 34 Stable, recheck CMP - Counseled on avoiding NSAIDs, adequate hydration - Counseled on low sodium diet Amalia Avery MD documented in this encounterTr[facility]03-05-2024 Miscellaneous Notes* Telephone Encounter - Amalia Avery MD - 07/03/2023 2:35 PM EST Reviewed. * Telephone Encounter - Kinga Chilel LPN - 07/03/2023 1:18 PM EST Patient telephoned and made aware of providers message below. Agreeable and voices understanding tonew medication. Will picker packer today and get started. Patient unable to come in until Saturday 07/08. Made aware of all symptoms to watch for and if has any to proceed to ER, voices understanding. Kinga Chilel LPN * Telephone Encounter - Amalia Avery MD - 07/03/2023 11:04 AM EST I sent her to the ER last week for SOB and anemia. Her hemoglobin at that time was stable and they did not transfuse her. I have no way to transfuse her here. I would recommend OV this week if she ishaving continued SOB related to her anemia. Will start her on daily iron supplement due to her recent GI bleed. If she has severe symptoms of SOB, chest pain, palpitations, syncope, lightheadedness, extreme fatigue, or recurrent bleeding I would have her return to the ER. * Telephone Encounter - Bell Coleman LPN - 07/03/2023 10:38 AM EST Kinga, BRANCH OFFICE MANAGER with [facility] calling to let you know pt keeps calling them and saying sheis short of breath. Kinga reports pt's still anemic and staying around 7.7. Does not want to increase Lasix, her BP is running low in the 100s. Kinga wondering if the SOB is due to the anemia. Please review. Kinga wondering if you are the one following pt's anemia and maybe pt needs to have a transfusion again. Please update Kinga. Bell Coleman LPN documented in this encounterTr[facility]03-01-2024 Miscellaneous Notes* Telephone Encounter - Kelly Hair LPN - 06/29/2023 2:41 PM EST Contacted patient's daughter Junai and reviewed this message and that info was forwarded to [facility] yesterday. Advised her I would reach out to them Sunday and see how they want patient toproceed regarding eliquis and ASA. She voiced understanding and will update patient as well and they will follow up. * Telephone Encounter - Amalia Avery MD - 06/27/2023 5:02 PM EST Called by Dr. Mon at [facility] ED regarding this patient. Workup in the ER was negative for recurrent GI bleed, PE, worsening anemia, COVID/flu and can be discharged home. Agree with this recommendation. Patient does not have f/u scheduled with GI for recent GI bleed so will place referral order. I would be hesitant to have her restart Eliquis this soon after GI bleed with significant hemorrhage. I will need to reach out to her mold sander to see if they would be agreeable to her continuing ASA and holding Eliquis until she can f/u with GI. documented in this encounterTr[facility]02-28-2024 Discharge summary Author Sherry Matta [facility] June 27, 2023 5:21pm Note Date/Time June 27, 2023 1:14pm [facility] Medical Records Department [address] [place] [id number] Emergency Department Summary 06/27/23 MR#: [id number] Acct: [id number] Name: DAYANA QUIÑONES Rep #:[id number] : 1940 83 From: Sherry White PCP: Dr. Luiz Avery MD Status :REG ER Location: ED HPI History of Present Illness Chief Complaint: Shortness of Breath Informant: patient and family Narrative Narrative: Patient is an 83-year-old female with history of coronary artery disease, diastolic heart failure and proximal atrial fibrillation with recent admission for bleeding ulcer requiring blood transfusion and hospital course complicated by episode of flash pulmonary edema requiring ICU stay. Patient was discharged home on 06/17 (10 days ago). She had outpatient follow-up today with her PCP. In the office she was noticed to be short of breath and very pale. She sent to the ER for further evaluation. Patient notes that she has been more short of breath over the past 3 days. States prior 2 days she is willing to improve throughout the day but today she has been short of breath all day. Denies any new swelling of her legs or cough. She denies any fever or chills. Denies any sick contacts. Notes that she has had some diarrhea which she attributes to hernew Protonix prescription but states her stools have been yellow. Denies any black or blood in her stool. Denies excess abdominal pain. Denies any chest pain. No other complaints or concerns at this time. Patient states that from the hospital she has been feeling weak but denies any particular dizziness or lightheadedness. PFSH REPLACED BY [facility] Medical History Acute kidney injury Anemia Anticoagulant long-term use Anxiety 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 Chronic anemia Essential (primary) hypertension Fractured sternum GI bleed HFrEF (heart failure with reduced ejection fraction) History of ST elevation myocardial infarction (STEMI) (11/16/18) History of vertigo Ischemic cardiomyopathy Medication induced coagulopathy Mobitz (type) II atrioventricular block Non-ischemic cardiomyopathy 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) Home Medications aspirin 81 mg chewable tablet 81 mg PO DAILY HEART HEALTH 12/08/16 [History Last Taken 06/16/23] erythromycin 5 mg/gram (0.5 %) eye ointment 1 applic LEFT EYE QHS EYE INFECTION 12/08/16 [History Last Taken 06/26/23] acyclovir 800 mg tablet 800 mg PO DAILY SHINGLES 09/11/19 [History Last Taken 06/27/23] difluprednate 0.05 % eye drops 1 drp ophthalmic (eye) QODAY SWELLING/PAIN 05/13/20 [History Last Taken 06/10/23] timolol maleate 0.5 % eye drops 1 drp ophthalmic (eye) BID GLAUCOMA 02/14/22 [History Last Taken 06/11/23] dapagliflozin propanediol 10 mg tablet (Farxiga) 10 mg PO DAILY BLOOD SUGARS #90tabs 09/19/22 [Rx Last Taken 06/27/23] apixaban 5 mg tablet (Eliquis) 5 mg PO BID BLOOD THINNER #180 tabs 02/09/23 [Rx Last Taken 06/16/23] atorvastatin 20 mg tablet 20 mg PO QHS CHOLESTEROL #90 tabs 02/09/23 [Rx Last Taken 06/26/23] carvedilol 3.125 mg tablet (Coreg) 3.125 mg PO BID HEART #180 tabs 05/16/23 [Rx Last Taken 06/27/23] furosemide 20 mg tablet 10 mg (1/2 x 20 mg) PO DAILY EDEMA #45 tabs 06/11/23 [Rx Last Taken 06/27/23] propylene glycol 0.6 % eye drops (Lubricant Eye (propylene glycol)) 1 drp EACH EYE DAILY PRN DRY EYE 06/12/23 [History Last Taken Unknown] vit C 250 mg-vit E 90 mg-zinc 40 mg-copper 1 ut-fqewol-xvhrtn capsule (PreserVision AREDS-2) 1 tab PO BID EYE HEALTH 06/12/23 [History Last Taken 06/27/23] pantoprazole 40 mg tablet,delayed release 40 mg PO BID GERD #60 tabs 06/17/23 [Rx Last Taken 06/27/23] valsartan 40 mg tablet (Diovan) 40 mg PO DAILY BLOOD PRESSURE #60 tabs 06/17/23[Rx Last Taken 06/27/23] digoxin 125 mcg (0.125 mg) tablet 125 mcg PO MOWEFR HEART FAILURE 06/27/23 [History Last Taken 06/27/23] Allergy/AdvReac Type Severity Reaction Status Date / Time morphine Allergy Vomiting Verified 06/27/23 12:42 sacubitril [From Entresto] AdvReac Intermediate Hypotension Verified 06/27/23 12:42 on lowest dose valsartan [From Entresto] AdvReac Intermediate Hypotension Verified 06/27/23 12:42 on lowest dose Family History Father Heart disease Mother Heart disease Chronic anemia Iron deficiency Surgical History History of coronary artery stent placement (12/19/18) History of left heart catheterization (06/21/20) Presence of permanent cardiac pacemaker (08/02/18) S/P CABG x 2 S/P mitral valve repair Social History household members: none Smoking Status: Former smoker how long ago did patient quit smoking: Quit in 1967. alcohol intake: never substance use type: does not use caffeine: Yes Type: coffee Number of servings: 2 ROS ROS ED Constitutional Constitutional ED: Denies chills or fever(s) Eyes Eyes: Denies change in vision Cardiovascular Cardiovascular: Denies chest pain Respiratory/Chest Respiratory/Chest: Reports dyspnea and dyspnea on exertion; Denies cough Gastrointestinal Gastrointestinal: Reports diarrhea; Denies abdominal pain, melena, nausea or vomiting Musculoskeletal Musculoskeletal: Denies arthralgias or myalgias Integumentary Denies rash Neurologic Neurologic: Reports weakness; Denies headache(s) Psychiatric Psychiatric: Denies anxiety Hematologic/Lymphatic Hematologic/Lymphatic: Denies easy bleeding or easy bruising EXAM Physical Exam Const Vital Signs: 06/27/23 12:43 06/27/23 12:45 06/27/23 16:23 Temperature 96.9 F L Temperature Source Temporal Pulse Rate 88 87 Respiratory Rate 20 H 21 H Respiratory Effort Short of Breath Respiratory Depth Normal Respiratory Pattern Normal Blood Pressure 101/48 L 99/48 L Blood Pressure Mean 65 65 Pulse Ox 100 97 Oxygen Delivery Method Room Air Room Air Room Air 06/27/23 16:23 06/27/23 16:30 06/27/23 16:40 Temperature Temperature Source Pulse Rate 91 79 79 Respiratory Rate 29 H 24 H 25 H Respiratory Effort Respiratory Depth Respiratory Pattern Blood Pressure 105/63 Blood Pressure Mean 76 Pulse Ox 97 97 98 Oxygen Delivery Method 06/27/23 16:45 06/27/23 16:50 Temperature Temperature Source Pulse Rate 81 81 Respiratory Rate 19 H 23 H Respiratory Effort Respiratory Depth Respiratory Pattern Blood Pressure 100/53 L Blood Pressure Mean 68 Pulse Ox 99 98 Oxygen Delivery Method Room Air Positive well nourished and well developed General Appearance ED: well developed, NAD and pallor HEENT Reports moist mucous membranes atraumatic Eyes PERRL and EOMs intact bilaterally General Eye ED: Yes pale conjunctiva; Negative for scleral icterus Neck supple and no JVD Resp clear to auscultation bilaterally Resp Narrative: Mild tachypnea. Good breath sounds throughout with no crackles appreciated. Cardio regular rate, regular rhythm and no murmurs GI non-tender and non-distended Palpation: soft; Negative for guarding Back/Spine no CVA tenderness Neuro oriented x3 Sensorium / Orientation: alert Motor Exam: Negative for general weakness Psych mental status grossly normal Skin no wounds General Skin Exam: pallor; Negative for jaundice MDM MDM MDM Narrative Medical decision making narrative: Patient presents for increased shortness of breath. Patient had a recent hospitalization for anemia associate with upper GI bleed and subsequently had exacerbation of heart failure/flash pulmonary edema. She notes for the past 2 to 3 days she has been more short of breath. Denies related to complaints at this time. Not having any new black or blood in her stool. Has been off of heranticoagulation. Was noted to be pale and short of breath at the office today for outpatient PCP follow-up was sent in for further evaluation. Patient's hemodynamically stable in the ER. BP is low normal, but this appears to be her baseline. Patient has a stable anemia with hemoglobin 7.7, it was 7.810 days ago when she was discharged from the hospital. She does not have a leukocytosis. Her platelets are normal. Given that I do not think symptomatic anemia as a cause of her acute onset of shortness of breath, I did add on a D-dimer which is elevated at 0.95. CTA is obtained to rule out PE. In addition her other labs are largely normal. Her BNP is elevated but significantly downtrending. She does have an elevation of her creatinine of 1.52 but this appears to be near herbaseline. 2 view chest x-ray viewed by myself as well as radiology shows slightincreased diffuse interstitial prominence compared to prior study with no other acute abnormality. Her CTA shows no evidence of PE with cardiomegaly, diffuse interstitial fibrosis worse at the lung bases and bilateral pleural effusions right greater than left. Patient is ambulate in the ER and does quite well withno desaturations. Her high sensitive troponin is normal. Her EKG is paced and does not show any acute strain pattern. I did discuss admitting the patient for transfusion, monitoring her fluid statusand seeing if further blood transfusion would improve her shortness of breath. Patient declined stating that she does not want to be admitted. Given that she does not have any hemodynamic stability, hypoxia and her hemoglobin is stable I think is reasonable to follow-up outpatient. I did call her PCP, Dr. Avrey, about her findings and he will continue to follow-up outpatient. Patient given return precautions. Her and her daughter verbalized agreement nursing of this plan. Discharged home in stable condition History & Record Review Additional record(s) reviewed:: Prior inpatient record (Prior admisison/Rylan elizabeth ) and Prior labs Lab Data Attestation: I reviewed the patient's lab results. Labs: Laboratory Results - last 24 hr 06/27/23 06/27/23 13:20 13:55 WBC 7.7 RBC 2.77 L Hgb 7.7 L Hct 25.7 L MCV 92.8 MCH 27.8 MCHC 30.0 L RDW Std Deviation 54.3 H RDW Coeff of Sakina 15.8 H Plt Count 301 MPV 10.3 Immature Gran % (Auto) 0.400 Neut % (Auto) 74.1 H Lymph % (Auto) 16.7 L O'Brien % (Auto) 5.3 Eos % (Auto) 2.7 Baso % (Auto) 0.8 Absolute Neuts (auto) 5.7 Absolute Lymphs (auto) 1.28 Nucleated RBC % 0 D-Dimer Quant (PE/DVT) 0.95 H* Sodium 140 Potassium 4.4 Chloride 109 H Carbon Dioxide 25.0 Anion Gap 6 BUN 20 H Creatinine 1.52 H Estim Creat Clear Calc 25.52 Est GFR (MDRD) Af Amer 42 L Est GFR (MDRD) Non-Af 35 L BUN/Creatinine Ratio 13.2 Glucose 134 H Calcium 8.9 Total Bilirubin 0.60 AST 17 ALT 12 L Alkaline Phosphatase 90 Troponin I High Sens 20 B-Natriuretic Peptide 1040.3 H Total Protein 6.2 L Albumin 2.8 L Globulin 3.4 Albumin/Globulin Ratio 0.8 L Blood Type O POSITIVE Antibody Screen NEGATIVE Radiography Diagnostic Testing: Clinical Impression(s) from Imaging Studies Chest X-Ray 06/27/23 13:35 IMPRESSION: Slight increased diffuse interstitial prominence compared to the prior study. No acute abnormality. Follow-up chest imaging to resolution recommended. Electronically Signed: Cale Garcia MD at 13:51 EST , Chest CTA 06/27/23 15:09 IMPRESSION: No evidence of pulmonary embolism. Cardiomegaly with prominence of the right atrium. Diffuse interstitial fibrosis worse at the lung bases. Bilateral pleural effusions right greater than left. Electronically Signed: Carl Hillman MD at 15:51 EST , Rhythm Strip Rhythm Strip: Paced Rate: 85 Ectopy: None EKG Initial EKG: Attestation: I personally reviewed and interpreted this EKG as follows: Interpretation: Paced Comments: Atrial sensed/ventricular paced rhythm at a rate of 85 bpm Left axis deviation Management Discussion w/another healthcare provider: PCP Discharge Plan Triage Chief Complaint: Shortness of Breath ED Provider: Sherry Matta Dx/Rx/DC Orders Clinical Impression: WIN (dyspnea on exertion), Chronic diastolic (congestive) heart failure, Anemia Instructions: ED Dyspnea Prescriptions: No Action acyclovir 800 mg tablet 800 mg PO DAILY difluprednate 0.05 % drops 1 drp OPHTHALMIC QODAY timolol maleate 0.5 % drops 1 drp ophthalmic (eye) BID Patient Comments: PT STATES SHE ONLY TAKES ON DAYS SHE DOESNT USE THE DUREZOL. DUREZOL IS USED EVRY OTHER DAY. Rx Instructions: INSTILL ONE DROP INTO THE LEFT EYE TWICE DAILY. dapagliflozin propanediol [Farxiga] 10 mg tablet 10 mg PO DAILY Qty: 90 3RF Eliquis 5 mg tablet 5 mg PO BID Qty: 180 3RF Hold Instructions: HOLD FOR 10 DAYS (06/17/23 - 06/27/23), THEN RESUME atorvastatin 20 mg tablet 20 mg PO QHS Qty: 90 3RF carvedilol [Coreg] 3.125 mg tablet 3.125 mg PO BID Qty: 180 3RF Rx Instructions: must administer with a meal/food erythromycin 1 APPLIC ointment 1 applic LEFT EYE QHS Rx Instructions: APPLY ONE APPLICATION TO LEFT EYE ONCE DAILY AT BEDTIME aspirin 81 MG tablet,chewable 81 mg PO DAILY Hold Instructions: HOLD FOR 10 DAYS (06/17/23 - 06/27/23), THEN RESUME Lubricant Eye (propyl glycol) 0.6 % drops 1 drp EACH EYE DAILY PRN (Reason: DRY EYE) PreserVision AREDS-2 250-90-40-1 mg capsule 1 tab PO BID pantoprazole 40 mg Tablet,Delayed Release (Dr/Ec) 40 mg PO BID Qty: 60 0RF valsartan [Diovan] 40 mg tablet 40 mg PO DAILY Qty: 60 0RF Rx Instructions: 1/day, if blood pressure remains above 90 systolic after 1 week, increase the medication to 1 twice a day digoxin 125 mcg (0.125 mg) tablet 125 mcg PO MOWEFR furosemide 20 mg tablet 10 mg PO DAILY Qty: 45 3RF Primary Care Provider: Luiz Avery Referrals: Luiz Avery MD [Primary Care Provider] - Activity Restrictions/Additional Instructions: If your oxygen goes below 90 at home or your symptoms progress or worsen please return to the emergency room. At this time everything appears stable and he didnot require admission. Please continue to follow-up outpatient with your mold sander and your primary care doctor. Disposition Disposition: Home, Self Care What to do if you have Problems For any increased pain, shortness of breath, bleeding, nausea or vomiting, chestpain, or any unexpected problems, contact your Primary Care Provider. Call [facility] ([phone]) or report to the closest Emergency Room. Call 911 if necessary. 06/27/23 1721 <Electronically signed by Sherry Matta DO> Cosigner Signature (if applicable): CC: Dr. Luiz Avery MD ~ Signed [facility] Work Phone: 1(115) 991-129402-28-2024 History of Present illness Narrative* Amalia Avery MD - 06/27/2023 10:41 AM EST Chief Complaint Patient presents with: Hospital F/U: [facility] discharged 06/17; has had some increased SOB today. Sister yesterday. HPI Dayana Quiñones is a 83 year old female who presents here today for Hospital Discharge Follow up. Accompanied today by her daughter. Patient admitted to [facility] from 06/12 to 06/17 after presenting to the ER with c/o weakness, dizziness and hematochezia x 1 week. Hemoglobin markedly low in the ER at 5.8 so she was transufsed and placed on PPI. Developed flash pulmonary edema requiring ICU admission. After recovering from this she had EGD which showed 3 bleeding angiodysplastic lesions in her duodenum treated with a heater probe. Advised to hold anticoagulation and ASA for 10 days after discharge. High risk for readmission due to CHF with EF 10-15%. Given rx for pantoprazole on discharge along with valsartan for uncontrolled HTN while admitted. Hemoglobin 7.8 on discharge. Today, patient is complaining of SOB at rest without chest pain, cough/wheezing, LE edema, hematochezia, melena, dizziness/lightheadedness, abdominal pain. Admits to loose stools with the Protonix, increased stomach sounds today, and weakness since she was discharged home. Patient states that she was contacted by her mold sander on 06/22 and told her to stop her Valsartan. She has been holding her anticoagulation as recommended. Patient has follow up appointment with cardiology on 07/19. Was not recommended to follow up with GIfor her GI bleed. Tolerating PO diet. Past medical history, appointments, medications, allergies reviewed. 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 [...] infarction involving left anterior descending coronary artery (HCC)2019 Previous Surgical History PAST SURGICAL HISTORY Procedure [...] on File Prior to Visit Medication Sig pantoprazole DR (PROTONIX) 40 mg tablet spironolactone (ALDACTONE) 25 mg tablet Take 1 tablet by mouth once daily. furosemide (LASIX) 40 mg tablet Take 1 tablet by mouth once daily. metoprolol succinate ER (TOPROL XL) 25 mg 24 hr tablet Take 25 mg by mouth two times a day. Vit A,C,E-Lset-Bnkpov (ICAPS AREDS) 4,296 mcg-226 mg-90 mg cap Take 1 capsule by mouth once daily. apixaban (ELIQUIS) 5 mg tab(s) Take 5 mg by mouth twice daily. dapagliflozin propanediol (FARXIGA) 10 mg tablet Take 10 mg by mouth daily with breakfast. timolol maleate (TIMOPTIC) 0.5 % ophthalmic solution [...] daily. Take at first signs of outbreak.) No current facility-administered medications on file prior to visit. Social History Social History Tobacco Use Smoking status: Former Types: Cigarettes Quit date: 04/30/1967 Years since quittin.1 Smokeless tobacco: Never Vaping Use Vaping Use: Never used Substance Use Topics Alcohol use: No Drug use: Never Review of Symptoms REVIEW OF SYSTEMS See HPI EXAM: BP 104/62 Pulse 75 Resp 16 Wt 68.4 kg (150 lb 12.8 oz) SpO2 99% BMI 26.71 kg/m General Appearance: Pale appearing. Seating upright in chair. SOB at rest having to stop to take breaths in the middle of her sentences. Skin: Pale appearing. Head: Normocephalic, no masses, lesions, tenderness or abnormalities. Eyes: Anicteric sclera. Pupils are equally round and reactive to light. Extraocular movements are intact. Oropharynx: Gums pale pink in color. Lungs: Lungs clear to auscultation. No wheezing, rhonchi, rales.. Heart: RRR without murmur, gallop, or rubs. No ectopy. Abdomen: Normal abdominal exam, Abdomen soft, non-tender. Bowel sounds normal. No masses, organomegaly. Extremities: No deformities, edema, skin discoloration, clubbing or cyanosis. Good capillary refill. . Health Maintenance List DTaP,Tdap,Td Vaccine(1 - Tdap) Never done RSV Vaccine(1 - 1-dose 60+ series) Never done Covid-19 Vaccine( season) due on 12/29/2022 Advance Directive Discussion Never done Depression Assessment Never done Diabetes Screening due on 04/04/2026 Bone Density Screening Completed Influenza Vaccine Completed Pneumococcal Vaccine: 65+ Completed Shingrix Vaccine Discontinued ASSESSMENT/PLAN: 1. Shortness of breath at rest - ICD9: 786.05, ICD10: R06.02 (primary diagnosis) Patient with worsening SOB on discharge which may be 2/2 recurrent GI bleed vs pulmonary embolism vs CHF. Recommended repeat evaluation in the ER today. Patient and daughter hesitant, but ultimately agreeable to emergent evaluation. Report called to Dr. Hdez at [facility] ED. Will f/u on discharge. 2. Pallor - ICD9: 782.61, ICD10: R23.1 See above 3. Gastrointestinal hemorrhage associated with duodenal ulcer - ICD9: 532.40, ICD10: K26.4 See above 4. Anemia, unspecified type - ICD9: 285.9, ICD10: D64.9 See above. 5. Acute on chronic systolic heart failure (HCC) - ICD9: 428.23, ICD10: I50.23 No LE edema or rales on exam today. Weight stable. 6. Ischemic cardiomyopathy - ICD9: 414.8, ICD10: I25.5 See above. Continue current regimen per cardiology. 7. Acute pulmonary edema (HCC) - ICD9: 518.4, ICD10: J81.0 See above. Continue current regimen per cardiology. I spent a total of 50 minutes on the date of the service which included preparing to see the patient, [id number] patient care, completing clinical documentation, obtaining and/or reviewing separately obtained history, performing a medically appropriate examination, counseling and educating the pat ient/family/caregiver, and ordering medications, tests, or procedures. Amalia Avery MD documented in this encounterTr[facility]02-26-2024 Miscellaneous Notes* Telephone Encounter - Kinga Chilel LPN - 06/25/2023 12:41 PM EST Nathalie telephoned and made aware of providers message. Kinga Chilel LPN * Telephone Encounter - Amalia Avery MD - 06/25/2023 12:06 PM EST Pulse ox today is good and BP in good range. If she has any more worsening of her SOB, new bleedingsymptoms, leg swelling, difficulty breathing when lying flat, or chest pain would have her return to the ER immediately. * Telephone Encounter - Shelby Hair RN - 06/25/2023 11:32 AM EST Nathalie [facility] Nurse calling with patient update for PCP. States she visited patient last Sunday and again today. Reports patient was a little SOB last Sunday, but today was noted to be more SOB. SpO2 was 95% on room air today. BP today was 109/60. No theresx's reported. HH Nurse wanted PCP to be aware. Nurse also reports: -Pt's blood thinner (Eliquis) on HOLD x 10 days, until she is further advised this Sunday by for follow-up appt on 06/27. Blood thinner held due to recent diagnosis of GI bleed at hospital, Hgb was 5.8 at that time. -States pt was put on Protonix by Dr. Morton recently -Patient sees [facility] 07/20/23. - Nurse states pt may be a little more SOB due to pt receiving recent news yesterday that her sister is being put on Hospice, pt didn't sleep last night due to emotions -Nurse reports pt's Valsartan was stopped this past Sunday due to low BP's last week. -lives alone, has Life Alert, reports pt is a compliant patient -Pt able to take own vitals and monitor them -PT to visit patient this afternoon and to call with update if pt worsens or if sx's have changed -patient has no change in weight and no change in swelling If PCP would like to advise or order anything, call Nurse Nathalie at [phone]. Thank you. documented in this encounterTr[facility]02-19-2024 Miscellaneous Notes* Telephone Encounter - Meghana Fabian APRN.JOELLE - 06/18/2023 12:30 PM EST Notified Amanda RN that Dr. Avery will follow patient for [facility]. * Telephone Encounter - Nathalie Lerma RN - 06/18/2023 11:58 AM EST Amanda MALAGONprepared foods associate from [facility] calls and states that patient was discharged from [facility] on 06/17/2023 with the diagnosis of GI Bleed. Amanda asking if provider willing to follow patient with orders for residential, physical therapy, and occupational therapy. If agreeable please give Amanda a call back . Thank you, Nathalie Lerma RN documented in this encounterTr[facility]02-19-2024 Miscellaneous Notes* Telephone Encounter - Janel Anthony - 06/18/2023 10:53 AM EST Opened in error documented in this encounterTrinity Health [facility]02-19-2024 History of Present illness Narrative* Kelly Hair LPN - 06/18/2023 10:31 AM EST TRANSITION CARE MANAGEMENT (TCM) INITIAL CONTACT Sales Management Trainee Outreach Provider Action/FYI- Contacted patient's daughter Juani to advise of appt time change- she stated she will let her Mom(patient) know. Initial contact with patient post discharge, spoke to daughter. Patient identified by name and . TRANSITION CARE MANAGEMENT INITIAL OUTREACH DOCUMENTATION: No flowsheet data found. SUMMARY: -Pt discharged from [facility] on 06/17/23. -Admitted for: 1)GI bleed with Melena 2) anemia 3)ischemic cardiomyopathy 4) type II non-STEMI 5) GI bleed from angiodysplastic lesions 6) hemorrhagic shock Do you have a hospital follow up appointment with your PCP? Appointment on 06/27/[address] Avery. Yes. Remind patient of appointment date, time, and location. If not within 14 calendar days of discharge - please reschedule accordingly. MEDICATIONS: Many patients have questions or concerns about their medications once they are home. Were you prescribed any new medications? Yes-pantoprazole 40mg BID and valsartan 40 mg daily Were you told to hold any medications? If yes, what are those medications? Hold eliquis 5mg po BID x 10days and hold ASA 81mg po daily x 10days Were any of your medications discontinued? If yes, what are those medications? Stop omeprazole 40 mg po daily, stop naproxen 220mg po BID PRN and Stop entresto 24-26 mg tab po BID Do you have any questions about getting or taking your medications? No Your discharge instructions/After visit Summary (AVS) are important in guiding you through the recovery process. Is there anything I might help you understand? Do you have all the necessary equipment and supplies at home? Medical records from recent hospitalization: Placed for provider to review * Kelly Hair LPN - 06/18/2023 10:28 AM EST Attempted to contact patient to schedule TCM for 40 min (blocked 40 min 06/27/23) wanting patient to come in at 10:40am instead of 9:40am. documented in this encounterTrinity [facility]02-18-2024 Discharge summary Author Ciera Hurst [facility] June 17, 2023 12:11pm Note Date/Time June 17, 2023 12:05pm [facility] Medical Records Department [address] [place] [address] Instructions for Home/Discharge Instructions 06/17/23 1204 MR#: [id number] Acct: [id number] Name: DAYANA QUIÑONES Rep #:[id number] 18 : 1940 83 From: Ciera Hurst DO PCP: Dr. Luiz Avery MD Status :ADM IN Discharge Instructions Diet Discharge Diet: No restrictions and - (Avoid excessive salt) Activity Discharge Activity: Return to Normal Activity Weight Bearing Status: Full weight bearing Follow Up Care Test Results: Test results from this visit will be discussed in further detail at your follow- up appointment, if applicable. Discharge Plan Admission Admit Date/Time: 06/12/23 22:30 Primary Reason for Your Visit: GI bleed, congestive heart failure Attending Provider: Ciera Hurst Primary Care Provider: Luiz Avery Consulting Providers: Parker Bergman; Deandre Lozano Instructions Additional Instructions / Restrictions: Do not take valsartan if your blood pressure is under 90 systolic Discharge Orders/Prescriptions Prescriptions: New pantoprazole 40 mg Tablet,Delayed Release (Dr/Ec) 40 mg PO BID Qty: 60 0RF valsartan [Diovan] 40 mg tablet 40 mg PO DAILY Qty: 60 0RF Rx Instructions: 1/day, if blood pressure remains above 90 systolic after 1 week, increase the medication to 1 twice a day Continued acyclovir 800 mg tablet 800 mg PO DAILY difluprednate 0.05 % drops 1 drp OPHTHALMIC Q OTHER DAY timolol maleate 0.5 % drops 1 drp ophthalmic (eye) BID Patient Comments: PT STATES SHE ONLY TAKES ON DAYS SHE DOESNT USE THE DUREZOL Rx Instructions: left eye Eye Health Plus Lutein 300 mcg-200 mg-27 mg-2 mg tablet 1 tab PO BID Farxiga 10 mg tablet 10 mg PO DAILY Qty: 90 3RF atorvastatin 20 mg tablet 20 mg PO QHS Qty: 90 3RF carvedilol [Coreg] 3.125 mg tablet 3.125 mg PO BID Qty: 180 3RF Rx Instructions: must administer with a meal/food digoxin 125 mcg (0.125 mg) tablet 125 mcg PO .COMPLEX Qty: 60 3RF Rx Instructions: 125 mcg orally M/W/F; erythromycin 1 APPLIC ointment 1 applic LEFT EYE QHS Patient Comments: left eye Lubricant Eye (propyl glycol) 0.6 % drops 1 drp EACH EYE DAILY PRN (Reason: DRY EYE) PreserVision AREDS-2 250-90-40-1 mg capsule 1 tab PO BID furosemide 20 mg tablet 10 mg PO DAILY Qty: 45 3RF Held Eliquis 5 mg tablet 5 mg PO BID Qty: 180 3RF Hold Instructions: Hold this medication for 10 days, then resume aspirin 81 MG tablet,chewable 81 mg PO DAILY@0800 Hold Instructions: Hold this medication for 10 days, then resume Discontinued omeprazole 40 MG capsule,delayed release(DR/EC) 40 mg PO DAILY Patient Comments: naproxen sodium 220 mg capsule 220 mg PO BID PRN (Reason: pain) Entresto 24-26 mg tablet 1 tab PO BID Referrals / Follow Up: Luiz Avery MD [Primary Care Provider] - In 1 Week (Please have Dr. Avery check a CBC and a BMP) Disposition Disposition (needs filled in before D/C Order can be placed): Home Health Service 06/17/23 1211<Electronically signed by Ciera Hurst DO>Ciera Hurst DO CC: Dr. Luiz Avery MD; Dr. Parker Bergman DO; Dr. Deandre Lozano DO ~ Signed [facility] Work Phone: 1(456) 278-554102-18-2024 Discharge summary Author Ciera Hurst [facility] June 17, 2023 1:07pm Note Date/Time June 17, 2023 12:11pm [facility] Medical Records Department [address] [place] [address] Discharge Summary 06/17/23 1211 MR#: [id number] Acct: [id number] Name: DAYANA QUIÑONES Rep #:[id number] 20 : 1940 83 From: Ciera Hurst DO PCP: Dr. Luiz Avery MD Status :ADM IN Location: ICU ICU02-1 Providers Date of Admission: 06/12/23 Date of Discharge: 06/17/23 Primary Care Physician: Dr. Luiz Avery MD Consultations 06/12/23 22:56 Consult: Gastroenterology Routine Consulting Provider: Jeremy Gastroenter[facility] Reason for Consult: GI Bleed with Melena EMERGENT Consult: No MD Notified: Yes Date Notified: 06/12/23 Time Notified: 09:17 Method of Notification: Text Reason For Visit: MELANOTIC STOOLS WITH ACUTE BLOOD LOSS ANEMIA REQ Diagnosis Discharge Diagnosis (1) GI bleed: Status: Acute Code(s): K92.2 - Gastrointestinal hemorrhage, unspecified Qualifiers: GI bleed type/associated pathology: melena Qualified Code(s): K92.1 - Melena (2) Anemia: Status: Acute Code(s): D64.9 - Anemia, unspecified Plan 1. 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 #3 ischemic cardiomyopathy-complicates care, medical course, recovery, and prognosis, patient will remain on her current medications including carvedilol and Lasix, patient is also on digoxin, patient did not tolerate Entresto #4 type II sie-[id number]-[id number] care, medical course, recovery, and prognosis #5 GI bleed-from angiodysplastic lesions in the duodenum, patient will be given a PPI #6 hemorrhagic shock-this is resolved at this time Total clinical time spent by myself addressing the patient's medical issues, reviewing all of her data, and collaborating with patient's care team: 35 minutes Medications at Discharge Home Medications aspirin 81 mg chewable tablet 81 mg PO DAILY@0800 circulation 12/08/16 erythromycin 5 mg/gram (0.5 %) eye ointment 1 applic LEFT EYE [facility] eye health 12/08/16 acyclovir 800 mg tablet 800 mg PO DAILY SHINGLES 09/11/19 difluprednate 0.05 % eye drops 1 drp ophthalmic (eye) Q OTHER DAY 05/13/20 timolol maleate 0.5 % eye drops 1 drp ophthalmic (eye) BID 02/14/22 vit A 300 mcg-C 200 mg-E 27 mg-lutein 2 mg and minerals tablet (Eye Health Plus Lutein) 1 tab PO BID 02/14/22 dapagliflozin propanediol 10 mg tablet (Farxiga) 10 mg PO DAILY #90 tabs 09/19/22 apixaban 5 mg tablet (Eliquis) 5 mg PO BID #180 tabs 02/09/23 atorvastatin 20 mg tablet 20 mg PO QHS #90 tabs 02/09/23 carvedilol 3.125 mg tablet (Coreg) 3.125 mg PO BID #180 tabs 05/16/23 digoxin 125 mcg (0.125 mg) tablet 125 mcg PO .COMPLEX #60 tabs 05/16/23 furosemide 20 mg tablet 10 mg (1/2 x 20 mg) PO DAILY #45 tabs 06/11/23 propylene glycol 0.6 % eye drops (Lubricant Eye (propylene glycol)) 1 drp EACH EYE DAILY PRN DRY EYE 06/12/23 vit C 250 mg-vit E 90 mg-zinc 40 mg-copper 1 [id number] capsule (PreserVision AREDS-2) 1 tab PO BID 06/12/23 pantoprazole 40 mg tablet,delayed release 40 mg PO BID #60 tabs 06/17/23 valsartan 40 mg tablet (Diovan) 40 mg PO DAILY #60 tabs 06/17/23 Hospital Course Operations None Procedures Blood transfusion and EGD Summary of Care Provided Minutes Spent on Discharge: 32 Hospital Course: This 83-year-old white female was seen in the emergency room [facility] with a chief complaint of generalized weakness and malaise she complained of dizziness, she denied falling. She admitted to black and bloody bowel movements over the last several days prior. Labs obtained in the emergency room showed a markedly low hemoglobin of 5.8, white count was normal, and her blood pressure was noted to be low. Patient was admitted to PCU, she was given blood transfusion, she was kept on a PPI, and she was seen in consultation by gastroenterology. Endoscopy was scheduled but unfortunately thepatient went into acute respiratory distress from flash pulmonary edema and she was transferred to the ICU for further care. Patient recovered uneventfully from her flash pulmonary edema and underwent an EGD which showed 3 bleeding angiodysplastic lesions in the duodenum. These were treated with a heater probe. On 06/17/2023, patient was seen and examined: On examination she appeared in goodhealth and spirits, she does not appear to be in any distress. Vital signs as documented. Skin warm and dry and without overt rashes. Neck without JVD, thyroid appears normal, trachea is midline, neck is supple. Lungs clear, normal air movement was noted. Heart exam notable for irregular rhythm, normal sounds and absence of murmurs, rubs or gallops. Abdomen unremarkable and without evidence of organomegaly, masses, or abdominal aortic enlargement, bowel sounds are present in all 4 quadrants, no abdominal tenderness was noted. Extremities nonedematous, no cyanosis was noted, no clubbing was noted. Neuro: Cranial nerves II through XII are grossly intact, no focal motor deficits were noted, sensation to light touch and pinprick is intact, motor exam 5/5 throughout. Psych: Patient is alert and oriented x3, she does not appear anxious or depressed, she does not appear agitated. Patient appears stable for discharge home on 06/17/2023, she is at a high risk for readmission due to severe cardiomyopathy with an EF of 10 to 15%. Patient was instructed not to resume her anticoagulation and aspirin for 10 days. I diddiscuss CODE STATUS briefly with the patient but she did not want to change her CODE STATUS and remained a full code during her hospitalization. Weight / BMI Weight Weight: 77.4 kg Body Mass Index (BMI) 30.2 ABG / Lab / Microbiology Data 06/17/23 09:05 06/16/23 05:20 Laboratory: Laboratory Results - last 24 hr 06/17/23 09:05: Hgb 7.8 L, Hct 24.6 L D/C Instructions Discharge Diet: No restrictions and - (Avoid excessive salt) Weight Bearing Status: Full weight bearing Meaningful Use Info Meaningful Use Diagnoses (Choose all that apply): None applicable Discharge Plan Admission Admit Date/Time: 06/12/23 22:30 Primary Reason for Your Visit: GI bleed, congestive heart failure Attending Provider: Ciera Hurst Primary Care Provider: Luiz Avery Consulting Providers: Parker Begrman; Jopperi,Deandre Instructions Additional Instructions / Restrictions: Do not take valsartan if your blood pressure is under 90 systolic Discharge Orders/Prescriptions Prescriptions: New pantoprazole 40 mg Tablet,Delayed Release (Dr/Ec) 40 mg PO BID Qty: 60 0RF valsartan [Diovan] 40 mg tablet 40 mg PO DAILY Qty: 60 0RF Rx Instructions: 1/day, if blood pressure remains above 90 systolic after 1 week, increase the medication to 1 twice a day Continued acyclovir 800 mg tablet 800 mg PO DAILY difluprednate 0.05 % drops 1 drp OPHTHALMIC Q OTHER DAY timolol maleate 0.5 % drops 1 drp ophthalmic (eye) BID Patient Comments: PT STATES SHE ONLY TAKES ON DAYS SHE DOESNT USE THE DUREZOL Rx Instructions: left eye Eye Health Plus Lutein 300 mcg-200 mg-27 mg-2 mg tablet 1 tab PO BID Farxiga 10 mg tablet 10 mg PO DAILY Qty: 90 3RF atorvastatin 20 mg tablet 20 mg PO QHS Qty: 90 3RF carvedilol [Coreg] 3.125 mg tablet 3.125 mg PO BID Qty: 180 3RF Rx Instructions: must administer with a meal/food digoxin 125 mcg (0.125 mg) tablet 125 mcg PO .COMPLEX Qty: 60 3RF Rx Instructions: 125 mcg orally M/W/; erythromycin 1 APPLIC ointment 1 applic LEFT EYE QHS Patient Comments: left eye Lubricant Eye (propyl glycol) 0.6 % drops 1 drp EACH EYE DAILY PRN (Reason: DRY EYE) PreserVision AREDS-2 250-90-40-1 mg capsule 1 tab PO BID furosemide 20 mg tablet 10 mg PO DAILY Qty: 45 3RF Held Eliquis 5 mg tablet 5 mg PO BID Qty: 180 3RF Hold Instructions: Hold this medication for 10 days, then resume aspirin 81 MG tablet,chewable 81 mg PO DAILY@0800 Hold Instructions: Hold this medication for 10 days, then resume Discontinued omeprazole 40 MG capsule,delayed release(DR/EC) 40 mg PO DAILY Patient Comments: naproxen sodium 220 mg capsule 220 mg PO BID PRN (Reason: pain) Entresto 24-26 mg tablet 1 tab PO BID Referrals / Follow Up: Luiz Avery MD [Primary Care Provider] - In 1 Week (Please have Dr. Bursley check a CBC and a BMP) Disposition Disposition (needs filled in before D/C Order can be placed): Home Health Service Charges/Coding Visit Charges Inpatient E&M: 34378 Disch Hosp >30min 06/17/23 1307 <Electronically signed by Ciera Hurst DO> Cosigner Signature (if applicable): CC: Dr. Luiz Avery MD; Dr. Ciera Hurst DO~ Signed [facility] Work Phone: [phone]) 509-675402-17-2024 Progress note Author Ciera Hurst [facility] June 16, 2023 5:57pm Note Date/Time June 16, 2023 2:30pm [facility] Medical Records Department [address] [place] [address] Progress Note - Hospitalist 06/16/23 1429 MR#: [id number] Acct: [id number] Name: DAYANA QUIÑONES Rep #:[id number] : 1940 83 From: Ciera Hurst DO PCP: Dr. Luiz Avery MD Status :ADM IN Location: ICU ICU02-1 Reason for Visit Reason for Visit: Diagnoses Anemia, unspecified (06/12/23) Coagulation defect, unspecified (06/12/23) Other cardiomyopathies (06/12/23) Melena (06/12/23) Adverse effect of unspecified drugs, medicaments and biological substances, initial encounter (06/12/23) watermaster (current) use of anticoagulants (06/12/23) Subjective Subjective Patient was seen and examined today, patient underwent an EGD today which showed3 bleeding angiodysplastic lesions in the duodenum which were treated with a heater probe. There was noted to be a mild Schatzki's ring. Objective Data Objective Data Vital Signs: Vital Signs Temp Pulse Resp BP Pulse Ox O2 Del Method O2 Flow Rate 98.5 F 91 18 86/42 L 95 Room Air 2 06/16/23 12:00 06/16/23 14:00 06/16/23 14:00 06/16/23 14:00 06/16/23 14:00 06/16/23 14:00 06/16/23 07:33 FiO2 21 06/14/23 16:04 Oxygen Flow Rate (L/min) 2 Oxygen Delivery Method Room Air Weight: 78.8 kg Body Mass Index (BMI) 30.7 Intake & Output: Intake and Output for Last 24 Hours 06/14/23 06/15/23 06/16/23 23:59 23:59 23:59 Intake Total 1526.33 / 1526.33 349.42 / 349.42 340 / 340 Output Total 2850 / 3850 3320 / 3420 475 / 475 Balance -1323.67 / -2323.67 -2970.58 / -3070.58 -135 / -135 Lab / Micro Data 06/16/23 05:20 06/16/23 05:20 Labs: Laboratory Results - last 24 hr 06/16/23 05:20: WBC 13.4 H, RBC 2.72 L, Hgb 7.9 L, Hct 25.5 L, MCV 93.8, MCH 29.0, MCHC 31.0 L, RDW Std Deviation 53.0 H, RDW Coeff of Sakina 15.9 H, Plt Count 209, MPV 10.2, Immature Gran % (Auto) 0.400, Neut % (Auto) 79.2 H, Lymph % (Auto) 10.1 L, O'Brien % (Auto) 7.3, Eos % (Auto) 2.6, Baso % (Auto) 0.4, Absolute Neuts (auto) 10.6 H, Absolute Lymphs (auto) 1.35, Nucleated RBC % 0, Sodium 144,Potassium 3.5, Chloride 112 H, Carbon Dioxide 28.0, Anion Gap 4 L, BUN 16, Creatinine 0.88, Estim Creat Clear Calc 47.30, Est GFR (MDRD) Af Amer 79, Est GFR (MDRD) Non-Af 65, BUN/Creatinine Ratio 18.2, Glucose 88, Calcium 8.3 L, Total Bilirubin 1.30 H, AST 18, ALT 13, Alkaline Phosphatase 71, Total Protein 5.4 L, Albumin 2.4 L, Globulin 3.0, Albumin/Globulin Ratio 0.8 L Physical Exam Const alert, oriented x3 and no apparent distress General Appearance: cooperative, well kempt and well developed Orientation / Consciousness: awake, oriented to person, oriented to place and oriented to time HEENT normocephalic, head/scalp atraumatic and moist oral mucous membranes Eyes PERRL, EOMs intact bilaterally and conjunctivae normal Neck supple, no JVD, thyroid normal and no carotid bruits General: trachea midline Resp normal respiratory effort, no retractions and no use of accessory muscles Resp Narrative: Inspiratory rales were noted at the bases bilaterally Auscultation: rales; Negative for rhonchi or wheezes Cardio regular rate, regular rhythm, S1 normal heart sound, S2 normal heart sound, no murmurs, no rub and no gallops GI normal to inspection, nondistended, normoactive bowel sounds, soft to palpation,non-tender and non-distended Extremity no clubbing, cyanosis or edema Skin no rashes or lesions noted General Skin Exam: no breakdown Neuro oriented x3, CN's II-XII intact bilaterally, no focal motor deficits and no sensory deficits noted Sensorium / Orientation: awake and alert Speech: speech normal Psych affect normal Assessment & Plan Assessment/Plan (1) GI bleed: QUALIFIERS: GI bleed type/associated pathology: melena Qualified Code(s): K92.1 - Melena (2) Anemia: PLAN: Plan 1. 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 #3 ischemic cardiomyopathy-complicates care, medical course, recovery, and prognosis, patient will remain on her current medications including carvedilol and Lasix, patient is also on digoxin, patient did not tolerate Entresto #4 type II jde-JQVPB-itoybooktwv care, medical course, recovery, and prognosis #5 GI bleed-from angiodysplastic lesions in the duodenum, patient will be given a PPI #6 hemorrhagic shock-this is resolved at this time Total clinical time spent by myself addressing the patient's medical issues, reviewing all of her data, and collaborating with patient's care team: 35 minutes Charges/Coding Visit Charges Inpatient E&M: 70840 Subs Hosp L2 06/16/23 3203 <Electronically signed by Ciera Hurst DO> Cosigner Signature (if applicable): CC: ~ Signed [facility] Work Phone: 1([phone]) 486-887102-17-2024 Progress note Author Rigoberto Morton [facility] June 16, 2023 4:27pm Note Date/Time June 16, 2023 4:27pm [facility] Medical Records Department [address] [place] [address] Progress Note - GI 06/16/23 1624 MR#: [id number] Acct: [id number] Name: DAYANA QUIÑONES Rep #:[id number] : 1940 83 From: Rigoberto Morton DO PCP: Dr. Luiz Avery MD Status :ADM IN Location: ICU ICU02-1 Subjective Subjective Patient underwent an upper endoscopy yesterday and was discovered to have some angiodysplastic lesions in the small bowel which were treated endoscopically. She has not had any signs or symptoms of bleeding today. Objective Data Objective Data Vital Signs: Vital Signs Temp Pulse Resp BP Pulse Ox O2 Del Method O2 Flow Rate 97.9 F 91 18 93/49 L 97 Room Air 2 06/16/23 15:00 06/16/23 15:00 06/16/23 15:00 06/16/23 15:00 06/16/23 15:00 06/16/23 15:10 06/16/23 07:33 FiO2 21 06/14/23 16:04 Oxygen Flow Rate (L/min) 2 Oxygen Delivery Method Room Air Weight: 173 lb 11.588 oz Body Mass Index (BMI) 30.7 Intake & Output: Intake and Output for Last 24 Hours 06/14/23 06/15/23 06/16/23 23:59 23:59 23:59 Intake Total 1526.33 / 1526.33 349.42 / 349.42 340 / 340 Output Total 2850 / 3850 3320 / 3420 475 / 475 Balance -1323.67 / -2323.67 -2970.58 / -3070.58 -135 / -135 Lab / Micro Data 06/16/23 05:20 06/16/23 05:20 Labs: Laboratory Results - last 24 hr 06/16/23 05:20: WBC 13.4 H, RBC 2.72 L, Hgb 7.9 L, Hct 25.5 L, MCV 93.8, MCH 29.0, MCHC 31.0 L, RDW Std Deviation 53.0 H, RDW Coeff of Sakina 15.9 H, Plt Count 209, MPV 10.2, Immature Gran % (Auto) 0.400, Neut % (Auto) 79.2 H, Lymph % (Auto) 10.1 L, O'Brien % (Auto) 7.3, Eos % (Auto) 2.6, Baso % (Auto) 0.4, Absolute Neuts (auto) 10.6 H, Absolute Lymphs (auto) 1.35, Nucleated RBC % 0, Sodium 144,Potassium 3.5, Chloride 112 H, Carbon Dioxide 28.0, Anion Gap 4 L, BUN 16, Creatinine 0.88, Estim Creat Clear Calc 47.30, Est GFR (MDRD) Af Amer 79, Est GFR (MDRD) Non-Af 65, BUN/Creatinine Ratio 18.2, Glucose 88, Calcium 8.3 L, Total Bilirubin 1.30 H, AST 18, ALT 13, Alkaline Phosphatase 71, Total Protein 5.4 L, Albumin 2.4 L, Globulin 3.0, Albumin/Globulin Ratio 0.8 L Physical Exam Const alert, oriented x3, no apparent distress, average body habitus and healthy appearing General Appearance: cooperative, well kempt and well developed Orientation / Consciousness: awake, oriented to person, oriented to place and oriented to time HEENT normocephalic, head/scalp atraumatic and moist oral mucous membranes Eyes PERRL, EOMs intact bilaterally and conjunctivae normal Neck supple, no JVD, thyroid normal and no carotid bruits General: trachea midline Resp normal respiratory effort, no retractions and no use of accessory muscles Resp Narrative: Patient has fine rales at the lung bases bilaterally, there is decreased breath sounds at the left lung base Auscultation: rales; Negative for rhonchi or wheezes Cardio regular rate, regular rhythm, S1 normal heart sound, S2 normal heart sound, no murmurs, no rub and no gallops GI normal to inspection, nondistended, normoactive bowel sounds, soft to palpation,non-tender and non-distended Extremity no clubbing, cyanosis or edema Skin no rashes or lesions noted General Skin Exam: no breakdown Neuro oriented x3, CN's II-XII intact bilaterally, moves all extremities, no focal motor deficits and no sensory deficits noted Sensorium / Orientation: awake and alert Speech: speech normal Psych affect normal Assessment & Plan Assessment/Plan (1) GI bleed: QUALIFIERS: GI bleed type/associated pathology: melena Qualified Code(s): K92.1 - Melena (2) Medication induced coagulopathy: (3) Non-ischemic cardiomyopathy: (4) Anticoagulant long-term use: PLAN: Plan 83-year-old with past medical history of CAD status post CABG x 2, status post mitral valve repair for mitral regurgitation status post ST segment elevation MIwith history of 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 Severe acute blood loss anemia requiring transfusion with a hemoglobin of 5.8 g/dL present on admission likely due to suspected PUD with melena . Transfuse 2 units of PRBC's began in the ER. Transfuse as necessary to keep hemoglobin > 7 g/dL. Continue IV Protonix drip and keep strict NPO. Patient will undergo an upper endoscopy to evaluate upper GI tract. She was explained alternatives, risk, benefits include not withstanding bleeding, infection, sepsis, perforation, need for more discharge and . She will have an ASA of 3. Patient brought back up to the floor is to be optimized. Patient had a panic attack prior to the procedure today. She was noted to be tachycardic. Hopefully if her cardiac issues can be addressed we can do the procedure tomorrow also we can know if it is safe for her to go back on anticoagulation and/or antiplatelet therapy in the near future. 06/16/23-patient is status post EGD and treatment of angiodysplastic lesions. Her blood pressure is still consistently low for some reason. She is not on anyblood pressure medicines and her Lasix has been held. Her hemoglobin seems to be stable at 7.9. I will check iron studies in particular iron transferrin saturation, reticulocyte count and ferritin to see if she would benefit from iron transfusions. Diet can be advanced as tolerated. If her hemoglobin goes down then she would likely need a colonoscopy and capsule endoscopy. Charges/Coding Visit Charges Inpatient E&M: 19024 Subs Hosp L3 06/16/23 9043 <Electronically signed by Rigoberto Friend > Cosigner Signature (if applicable): CC: ~ Signed [facility] Work Phone: 1(930) 730-685602-16-2024 Procedure [facility] 06-15-2023 Procedure [facility]02-16-2024 Progress note Author Ciera Hurst [facility] June 15, 2023 6:04pm Note Date/Time June 15, 2023 6:02pm [facility] Medical Records Department [address] [place] [address] Progress Note - Hospitalist 06/15/23 1751 MR#: [id number] Acct: [id number] Name: DAYANA QUIÑONES Rep #:[id number] : 1940 83 From: Ciera Hurst DO PCP: Dr. Luiz Avery MD Status :ADM IN Location: ICU ICU02-1 Reason for Visit Reason for Visit: Diagnoses Coagulation defect, unspecified (06/12/23) Other cardiomyopathies (06/12/23) Melena (06/12/23) Adverse effect of unspecified drugs, medicaments and biological substances, initial encounter (06/12/23) watermaster (current) use of anticoagulants (06/12/23) Subjective Subjective Patient was seen and examined today, her hemoglobin was 8.1, she is on room air,I did a repeat chest x-ray on her today and it shows improved CHF with some fluid at the left lung base. I talked with her family were in the room at the time of my examination, I asked her if she knew that she had impaired pumping function and she did, she stated that she went to an EP physician to talk about anICD', she decided against getting 1 put in. I also discussed her CODE STATUS with her, she is currently a full code and I said it ultimately was her decisionwhether she wanted to be a DNR CC arrest without intubation or keep the CODE STATUS as is, she was not able to give an answer to me so I have left her CODE STATUS as is. Objective Data Objective Data Vital Signs: Vital Signs Temp Pulse Resp BP Pulse Ox O2 Del Method O2 Flow Rate 100.3 F H 98 23 H 99/53 L 96 Room Air 4 06/15/23 17:00 06/15/23 17:00 06/15/23 17:00 06/15/23 17:00 06/15/23 17:00 06/15/23 17:00 06/14/23 13:45 FiO2 21 06/14/23 16:04 Oxygen Flow Rate (L/min) 4 Oxygen Delivery Method Room Air Weight: 76.8 kg Body Mass Index (BMI) 29.9 Intake & Output: Intake and Output for Last 24 Hours 06/13/23 06/14/23 06/15/23 23:59 23:59 23:59 Intake Total 1396.33 / 1396.33 1526.33 / 1526.33 186.17 / 186.17 Output Total 500 / 500 2850 / 3850 3175 / 3175 Balance 896.33 / 896.33 -1323.67 / -2323.67 -2988.83 / -2988.83 Lab / Micro Data 06/15/23 03:15 06/15/23 03:15 Labs: Laboratory Results - last 24 hr 06/14/23 20:30: Troponin I High Sens 248 H* 06/15/23 03:15: WBC 17.4 H, RBC 2.75 L, Hgb 8.1 L, Hct 25.2 L, MCV 91.6, MCH 29.5, MCHC 32.1, RDW Std Deviation 52.6 H, RDW Coeff of Sakina 16.0 H, Plt Count 198, MPV 10.5, Immature Gran % (Auto) 0.500, Neut % (Auto) 82.8 H, Lymph % (Auto) 7.9 L, O'Brien % (Auto) 7.1, Eos % (Auto) 1.4, Baso % (Auto) 0.3, Absolute Neuts (auto) 14.4 H, Absolute Lymphs (auto) 1.38, Nucleated RBC % 0, Sodium 143,Potassium 3.6, Chloride 112 H, Carbon Dioxide 25.0, Anion Gap 6, BUN 16, Creatinine 1.08 H, Estim Creat Clear Calc 38.91, Est GFR (MDRD) Af Amer 62, Est GFR (MDRD) Non-Af 51 L, BUN/Creatinine Ratio 14.8, Glucose 88, Calcium 8.4 L Radiography Diagnostic Testing: Radiology Impression Chest X-Ray 06/15/23 09:15 IMPRESSION: Moderate degree of improvement in the pulmonary edema. Residual changes persist worse at the left lung base. Electronically Signed: Carl Hillman MD at 9:54 EST , Physical Exam Const alert, oriented x3, no apparent distress, average body habitus and healthy appearing General Appearance: cooperative, well kempt and well developed Orientation / Consciousness: awake, oriented to person, oriented to place and oriented to time HEENT normocephalic, head/scalp atraumatic and moist oral mucous membranes Eyes PERRL, EOMs intact bilaterally and conjunctivae normal Neck supple, no JVD, thyroid normal and no carotid bruits General: trachea midline Resp normal respiratory effort, no retractions and no use of accessory muscles Resp Narrative: Patient has fine rales at the lung bases bilaterally, there is decreased breath sounds at the left lung base Auscultation: rales; Negative for rhonchi or wheezes Cardio regular rate, regular rhythm, S1 normal heart sound, S2 normal heart sound, no murmurs, no rub and no gallops GI normal to inspection, nondistended, normoactive bowel sounds, soft to palpation,non-tender and non-distended Extremity no clubbing, cyanosis or edema Skin no rashes or lesions noted General Skin Exam: no breakdown Neuro oriented x3, CN's II-XII intact bilaterally, moves all extremities, no focal motor deficits and no sensory deficits noted Sensorium / Orientation: awake and alert Speech: speech normal Psych affect normal Assessment & Plan Assessment/Plan (1) Anemia: PLAN: Plan 1. Acute anemia-secondary to blood loss requiring transfusion-etiology unclear at this point, patient will have an EGD performed today #2 acute on chronic congestive heart failure with decreased ejection fraction-patient's Lasix was held this morning due to her low blood pressure, it will be resumed when she comes back from her EGD. #3 ischemic cardiomyopathy-complicates care, medical course, recovery, and prognosis, patient will remain on her current medications including carvedilol and Lasix, patient is also on digoxin, patient did not tolerate Entresto #4 type II uea-EVCXZ-sgwuxpplnsy care, medical course, recovery, and prognosis #5 GI bleed-source unknown, patient's Eliquis has been on hold, she remains on aPPI #6 hemorrhagic shock-this is resolved at this time Total clinical time spent by myself addressing the patient's medical issues, reviewing all of her data, and collaborating with patient's care team: 35 minutes Charges/Coding Visit Charges Inpatient E&M: 65572 Subs Hosp L2 06/15/23 1804 <Electronically signed by Ciera Hurst DO> Cosigner Signature (if applicable): CC: ~ Signed [facility] Work Phone: 1(599) 870-666102-15-2024 Progress note Author Rigoberto Morton [facility] June 14, 2023 4:59pm Note Date/Time June 14, 2023 4:59pm [facility] Medical Records Department [address] [place] [address] Progress Note - GI 06/14/23 165 MR#: [id number] Acct: [id number] Name: DAYANA QUIÑONES Rep #:[id number] : 1940 83 From: Rigoberto Morton DO PCP: Dr. Luiz Avery MD Status :ADM IN Location: ICU ICU02-1 Subjective Subjective Patient was supposed to get an upper endoscopy today. However she was noted to be very out of it and very tearful prior to the procedure. Objective Data Objective Data Vital Signs: Vital Signs Temp Pulse Resp BP Pulse Ox O2 Del Method O2 Flow Rate 97.9 F 97 25 H 105/59 L 97 Bi-pap 4 06/14/23 16:00 06/14/23 16:04 06/14/23 16:04 06/14/23 16:00 06/14/23 16:04 06/14/23 16:00 06/14/23 13:45 FiO2 21 06/14/23 16:04 Oxygen Flow Rate (L/min) 4 Oxygen Delivery Method Bi-pap Weight: 177 lb 0.499 oz Body Mass Index (BMI) 31.4 Intake & Output: Intake and Output for Last 24 Hours 06/12/23 06/13/23 06/14/23 23:59 23:59 23:59 Intake Total 1001 / 1001 1396.33 / 1396.33 1526.33 / 1526.33 Output Total 500 / 500 2250 / 2250 Balance 1001 / 1001 896.33 / 896.33 -723.67 / -723.67 Lab / Micro Data 06/14/23 13:25 06/14/23 13:25 Labs: Laboratory Results - last 24 hr 06/14/23 03:30: WBC 11.9 H, RBC 2.75 L, Hgb 8.0 L, Hct 25.4 L, MCV 92.4, MCH 29.1, MCHC 31.5 L, RDW Std Deviation 53.4 H, RDW Coeff of Sakina 15.9 H, Plt Count 176, MPV 10.3, Immature Gran % (Auto) 0.500, Neut % (Auto) 69.7, Lymph % (Auto) 14.6 L, O'Brien % (Auto) 6.4, Eos % (Auto) 8.3 H, Baso % (Auto) 0.5, Absolute Neuts(auto) 8.3 H, Absolute Lymphs (auto) 1.74, Nucleated RBC % 0, Sodium 143, Potassium 4.2, Chloride 117 H, Carbon Dioxide 23.0, Anion Gap 3 L, BUN 19 H, Creatinine 1.01, Estim Creat Clear Calc 40.45, Est GFR (MDRD) Af Amer 67, Est GFR (MDRD) Non-Af 56 L, BUN/Creatinine Ratio 18.8, Glucose 99, Calcium 8.2 L, Phosphorus 2.5, Magnesium 2.0 06/14/23 11:45: Hgb 8.3 L, Hct 26.4 L 06/14/23 13:25: WBC 17.5 H, RBC 2.97 L, Hgb 8.9 L, Hct 28.5 L, MCV 96.0, MCH 30.0, MCHC 31.2 L, RDW Std Deviation 55.7 H, RDW Coeff of Sakina 15.9 H, Plt Count 211, MPV 10.4, Immature Gran % (Auto) 0.500, Neut % (Auto) 70.4 H, Lymph % (Auto) 18.1 L, O'Brien % (Auto) 4.8, Eos % (Auto) 5.7 H, Baso % (Auto) 0.5, Absolute Neuts (auto) 12.3 H, Absolute Lymphs (auto) 3.17, Nucleated RBC % 0, Sodium 144, Potassium 4.5, Chloride 118 H, Carbon Dioxide 16.0 L, Anion Gap 10, BUN 18, Creatinine 1.19 H, Estim Creat Clear Calc 35.31, Est GFR (MDRD) Af Amer 56 L, Est GFR (MDRD) Non-Af 46 L, BUN/Creatinine Ratio 15.1, Glucose 241 H, Calcium 8.3 L, Troponin I High Sens 48 06/14/23 15:10: Troponin I High Sens 103 H ABG Data ABG results: ABG 06/14/23 13:34 Specimen Type ART Sample Site Not entered pH 7.26 L Bicarbonate Actual 13.4 L Total CO2 14 Base Excess -14 L O2 Saturation 95 O2 % 4.0 ABG pCO2 30.2 L ABG pO2 86 O2 Delivery Device Cannula Vent Mode Not entered Radiography Diagnostic Testing: Radiology Impression Chest X-Ray 06/14/23 13:23 IMPRESSION: Findings in keeping with pulmonary edema. Electronically Signed: Carl Hillman MD at 14:41 EST , Physical Exam Const alert and no apparent distress HEENT head/scalp atraumatic and moist oral mucous membranes Resp normal respiratory effort, no retractions, no use of accessory muscles and clearto auscultation bilaterally Cardio regular rate, regular rhythm, S1 normal heart sound and S2 normal heart sound GI normal to inspection, nondistended, normoactive bowel sounds, soft to palpation,non-tender and non-distended Neuro Sensorium / Orientation: awake Assessment & Plan Assessment/Plan (1) GI bleed: QUALIFIERS: GI bleed type/associated pathology: melena Qualified Code(s): K92.1 - Melena (2) Medication induced coagulopathy: (3) Non-ischemic cardiomyopathy: (4) Anticoagulant long-term use: PLAN: Plan 83-year-old with past medical history of CAD status post CABG x 2, status post mitral valve repair for mitral regurgitation status post ST segment elevation MIwith history of 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 Severe acute blood loss anemia requiring transfusion with a hemoglobin of 5.8 g/dL present on admission likely due to suspected PUD with melena . Transfuse 2 units of PRBC's began in the ER. Transfuse as necessary to keep hemoglobin > 7 g/dL. Continue IV Protonix drip and keep strict NPO. Patient will undergo an upper endoscopy to evaluate upper GI tract. She was explained alternatives, risk, benefits include not withstanding bleeding, infection, sepsis, perforation, need for more discharge and . She will have an ASA of 3. Patient brought back up to the floor is to be optimized. Patient had a panic attack prior to the procedure today. She was noted to be tachycardic. Hopefully if her cardiac issues can be addressed we can do the procedure tomorrow also we can know if it is safe for her to go back on anticoagulation and/or antiplatelet therapy in the near future. Charges/Coding Visit Charges Inpatient E&M: 36453 Subs Hosp 06/14/23 7499 <Electronically signed by Rigoberto Morton DO> Cosigner Signature (if applicable): CC: ~ Signed [facility] Work Phone: [phone]) 674-111002-15-2024 Progress note Author Deandre Lozano [facility] June 14, 2023 1:53pm Note Date/Time June 14, 2023 1:53pm [facility] Medical Records Department [address] [place] [address] Progress Note - Hospitalist 06/14/23 1351 MR#: [id number] Acct: [id number] Name: DAYANA QUIÑONES Rep #:[id number] : 1940 83 From: Deandre Lozano DO PCP: Dr. Luiz Avery MD Status :ADM IN Location: ICU ICU02-1 Hospitalist Note Patient became short of breath before heading down to surgery. She also became very anxious. EGD was aborted before she can even make it down there. Patient was noted to be tachypneic with respiratory rate in 30s to 40s. Patient was on nasal cannula and was breathing 100% on nasal cannula. Chest x-ray showed pulmonary vascular congestion. IV fluids were discontinued and dose of IV furosemide 40 mg x 1 was ordered. Patient had an ABG that showed pH of 7.256, pCO2 of 30 and pO2 of 86. Patient will be placed on BiPAP and Colón catheter will be placed. Did discuss the case with the patient's daughter at bedside. It appears that the patient has acute heart failure. She was alarmed by that but knew that the patient did have a low ejection fraction. Explained to her that it is fluid buildup in the lungs. This is likely due to all the fluid thatshe received as well as blood products and the patient with known reduced ejection fraction. This is acute heart failure with reduced ejection fraction. Will continue with furosemide for now. Visit Charges Inpatient E&M: 86636 Subs Hosp L3 06/14/23 9222 <Electronically signed by Deandre Lozano DO> Cosigner Signature (if applicable): CC: ~ Signed [facility] Work Phone: [phone]) [phone] Progress note Author Deandre Baileyraven [facility] June 14, 2023 12:53pm Note Date/Time June 14, 2023 7:02am [facility] Medical Records Department [address] [place] [address] Progress Note - Hospitalist 06/14/23 0658 MR#: [id number] Acct: [id number] Name: DAYANA QUIÑONES Rep #:[id number] : 1940 83 From: Deandre Lozano DO PCP: Dr. Luiz Avery MD Status :ADM IN Location: ICU ICU02-1 Subjective Subjective Feeling well. Patient still had bowel movements with some blood but less than had been previously. Concerned about her weight gain. Denies any swelling in her lower extremities though does have some swelling in her hands. No shortnessof breath. Objective Data Objective Data Vital Signs: Vital Signs Temp Pulse Resp BP Pulse Ox O2 Del Method 36.4 C L 82 18 112/65 96 Room Air 06/14/23 00:00 06/14/23 06:00 06/14/23 06:00 06/14/23 06:00 06/14/23 06:00 06/14/23 06:00 Oxygen Delivery Method Room Air Weight: 80.3 kg Body Mass Index (BMI) 31.4 Intake & Output: Intake and Output for Last 24 Hours 06/12/23 06/13/23 06/14/23 23:59 23:59 23:59 Intake Total 1001 / 1001 1396.33 / 1396.33 836.0 / 836.0 Output Total 500 / 500 700 / 700 Balance 1001 / 1001 896.33 / 896.33 136.0 / 136.0 Lab / Micro Data 06/14/23 11:45 06/14/23 03:30 Labs: Laboratory Results - last 24 hr 06/12/23 15:35: Diff Path Review Reviewed 06/13/23 06:10: Sodium 148 H, Potassium 2.8 L, Chloride 120 H, Carbon Dioxide 19.0 L, Anion Gap 9, BUN 24 H, Creatinine 0.81, Estim Creat Clear Calc 50.44, Est GFR (MDRD) Af Amer 86, Est GFR (MDRD) Non-Af 71, BUN/Creatinine Ratio 29.5 H, Glucose 81, Calcium 6.3 L*, Phosphorus 2.4 L, Magnesium 1.0 L, TSH 0.84 06/13/23 14:55: WBC 11.3 H, RBC 2.89 L, Hgb 8.4 L, Hct 26.6 L, MCV 92.0, MCH 29.1, MCHC 31.6 L, RDW Std Deviation 52.7 H, RDW Coeff of Sakina 15.8 H, Plt Count 184, MPV 10.9, Immature Gran % (Auto) 0.400, Neut % (Auto) 77.5 H, Lymph % (Auto) 10.9 L, O'Brien % (Auto) 5.2, Eos % (Auto) 5.5 H, Baso % (Auto) 0.5, Absolute Neuts (auto) 8.7 H, Absolute Lymphs (auto) 1.23, Nucleated RBC % 0 06/13/23 15:20: Sodium 144, Potassium 3.4 L, Chloride 115 H, Carbon Dioxide 21.0, Anion Gap 8, BUN 21 H, Creatinine 1.12 H, Estim Creat Clear Calc 36.48, Est GFR (MDRD) Af Amer 60, Est GFR (MDRD) Non-Af 49 L, BUN/Creatinine Ratio 18.8, Glucose 184 H, Calcium 7.8 L, Phosphorus 2.6, Magnesium 1.5 L 06/14/23 03:30: WBC 11.9 H, RBC 2.75 L, Hgb 8.0 L, Hct 25.4 L, MCV 92.4, MCH 29.1, MCHC 31.5 L, RDW Std Deviation 53.4 H, RDW Coeff of Sakina 15.9 H, Plt Count 176, MPV 10.3, Immature Gran % (Auto) 0.500, Neut % (Auto) 69.7, Lymph % (Auto) 14.6 L, O'Brien % (Auto) 6.4, Eos % (Auto) 8.3 H, Baso % (Auto) 0.5, Absolute Neuts(auto) 8.3 H, Absolute Lymphs (auto) 1.74, Nucleated RBC % 0, Sodium 143, Potassium 4.2, Chloride 117 H, Carbon Dioxide 23.0, Anion Gap 3 L, BUN 19 H, Creatinine 1.01, Estim Creat Clear Calc 40.45, Est GFR (MDRD) Af Amer 67, Est GFR (MDRD) Non-Af 56 L, BUN/Creatinine Ratio 18.8, Glucose 99, Calcium 8.2 L, Phosphorus 2.5, Magnesium 2.0 Radiography Diagnostic Testing: Radiology Impression Abdomen/Pelvis CTA 06/13/23 09:21 IMPRESSION: Small bilateral pleural effusions with scarring at both lung bases. Large hiatal hernia. Small layering gallstones. Sigmoid diverticulosis without diverticulitis. Electronically Signed: Carl Hillman MD at 10:46 EST Reading Location ID and State: [address] [place] [address] , Service support , Physical Exam Const alert and no apparent distress HEENT head/scalp atraumatic and moist oral mucous membranes Resp normal respiratory effort, no retractions, no use of accessory muscles and clearto auscultation bilaterally Cardio regular rate, regular rhythm, S1 normal heart sound and S2 normal heart sound GI normal to inspection, nondistended, normoactive bowel sounds, soft to palpation,non-tender and non-distended Extremity General Extremity: edema bilateral upper extremity trace Neuro Sensorium / Orientation: awake and alert Assessment & Plan Assessment/Plan (1) GI bleed: QUALIFIERS: GI bleed type/associated pathology: melena Qualified Code(s): K92.1 - Melena PLAN: Plan acute blood loss anemia * requiring transfusion with a hemoglobin of 5.8 g/dL present on admission likely due to suspected PUD with melena * Improved to 8 after 3 units PRBCs, hold off any additional transfusions unless hemoglobin 7 or less. * Pantoprazole drip * apixaban on hold given GI bleed * etiology: diverticular v PUD v AVM v other GIB * unclear source * complicated by apixaban, which has been held. * GI on consult * CTA negative for source of bleeding. * Upper endoscopy today Hemorrhagic shock * 2/2 ABLA * improved with transfusions and IVF * sacubitril/valsartan, furosemide held. Hypokalemia/Hypomagnesemia * resolved after replacement Chronic conditions: * Chronic HFrEF: LVEF ~15% resume carvedilol and digoxin. * CAD; s/p ME with subsequent stents * History of Mobitz-II AV-block; s/p PPM * History of pulmonary fibrosis * History of vertigo - Give Antivert prn. * Generalized anxiety * OA * Paroxysmal atrial flutter: Apixaban currently on hold. Discussed with patient and her daughter, plan is to resume that at some point after bleeding is stopped DVT prophylaxis - SCD's only with active GI bleeding. Charges/Coding Visit Charges Inpatient E&M: 52609 Subs Hosp L2 06/14/23 1253 <Electronically signed by Deandre Lozano DO> Cosigner Signature (if applicable): CC: ~ Signed [facility] Work Phone: [phone] 736-343502-15-2024 Consult note Author Rigoberto Morton [facility] June 14, 2023 12:22pm Note Date/Time June 14, 2023 12:21pm [facility] Medical Records Department [address] [place] [address] Consultation - GI 06/13/23 1218 MR#: [id number] Acct: [id number] Name: DAYANA QUIÑONES Rep #:[id number] : 1940 83 From: Rigoberto Morton DO PCP: Dr. Luiz Avery MD Status :ADM IN Location: ICU ICU02-1 ADDENDUM by Rigoberto Morton DO on 06/14/23 at 1221 Visit Charges Inpatient E&M: 46413 Init Hosp L3 06/14/23 1221<Electronically signed by Rigoberto Morton DO> Cosigner Signature (if applicable): cc: Dr. Luiz Avery MD; Dr. Parker Bergman DO ~* Signed HPI Consult Data Date of Consult: 06/13/23 HPI Narrative Reason for Consultation: GI bleed HPI Narrative: DAYANA QUIÑONES, is a 83 F with a past medical history of essential hypertension, chronic anemia, CAD; s/p ME with subsequent stents, CAD; s/p CABG x2, chronic systolic and diastolic CHF; with LVEF ~15% on Eliquis, history of Mobitz-II AV- block; s/p PPM, history of pulmonary fibrosis, history of vertigo, generalized anxiety and OA who presents to [facility] ER complaining of GI bleeding. Ms. Quiñones reports her symptoms began approximately 5 days prior to admission with very dark stools that turned the water red in the toilet. She then continued to take her Eliquis and Entestro plus her Lasix with worsening dizziness with standing, generalized weakness and malaise with her blood pressure dropping to the ~80 mmHg systolic range. Then earlier today she fell when she was trying to walk across a room and she finally decided to come in for further evaluation and treatment. She denies associated fever, chills, nausea, vomiting, abdominal pain or chest pain. She admits to a remote history of colonoscopy but she denies a history of previous EGD. In the ER she was noted to have severe acute blood loss anemia requiring transfusion with a hemoglobin of 5.8 g/dL present on admission likely due to suspected PUD complicated by an adverse drug reaction to Eliquis and Entestro and she was then admitted to the ICU for ongoing care 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) Home Medications aspirin 81 mg chewable tablet 81 mg PO DAILY@0800 circulation 12/08/16 [History Last Taken 06/12/23] erythromycin 5 mg/gram (0.5 %) eye ointment 1 applic LEFT EYE QHS eye health 12/08/16 [History Last Taken 06/09/23] omeprazole 40 mg capsule,delayed release 40 mg PO DAILY acid reflux 12/08/16 [History Last Taken 06/12/23] acyclovir 800 mg tablet 800 mg PO DAILY SHINGLES 09/11/19 [History Last Taken 06/12/23] difluprednate 0.05 % eye drops 1 drp ophthalmic (eye) Q OTHER DAY 05/13/20 [History Last Taken 06/10/23] timolol maleate 0.5 % eye drops 1 drp ophthalmic (eye) BID 02/14/22 [History Last Taken 06/11/23] vit A 300 mcg-C 200 mg-E 27 mg-lutein 2 mg and minerals tablet (Eye Health Plus Lutein) 1 tab PO BID 02/14/22 [History Last Taken Unknown] dapagliflozin propanediol 10 mg tablet (Farxiga) 10 mg PO DAILY #90 tabs 09/19/22 [Rx Last Taken 06/12/23] apixaban 5 mg tablet (Eliquis) 5 mg PO BID #180 tabs 02/09/23 [Rx Last Taken 06/12/23] atorvastatin 20 mg tablet 20 mg PO QHS #90 tabs 02/09/23 [Rx Last Taken 06/11/23] carvedilol 3.125 mg tablet (Coreg) 3.125 mg PO BID #180 tabs 05/16/23 [Rx Last Taken 06/12/23] digoxin 125 mcg (0.125 mg) tablet 125 mcg PO .COMPLEX #60 tabs 05/16/23 [Rx Last Taken 06/11/23] furosemide 20 mg tablet 10 mg (1/2 x 20 mg) PO DAILY #45 tabs 06/11/23 [Rx Last Taken 06/12/23] sacubitril 24 mg-valsartan 26 mg tablet (Entresto) 1 tab PO BID 06/11/23 [History Last Taken 06/12/23] naproxen sodium 220 mg capsule 220 mg PO BID PRN pain 06/12/23 [History Last Taken 06/12/23] propylene glycol 0.6 % eye drops (Lubricant Eye (propylene glycol)) 1 drp EACH EYE DAILY PRN DRY EYE 06/12/23 [History Last Taken Unknown] vit C 250 mg-vit E 90 mg-zinc 40 mg-copper 1 [id number] capsule (PreserVision AREDS-2) 1 tab PO BID 06/12/23 [History Last Taken 06/12/23] Allergy/AdvReac Type Severity Reaction Status Date / Time morphine Allergy Vomiting Verified 05/16/23 12:56 sacubitril [From Entresto] AdvReac Intermediate Hypotension Verified 06/05/23 16:15 on lowest dose valsartan [From Entresto] AdvReac Intermediate Hypotension Verified 06/05/23 16:15 on lowest dose Family History Father Heart disease Mother Heart disease Chronic anemia Iron deficiency Surgical History History of coronary artery stent placement (12/19/18) History of left heart catheterization (06/21/20) Presence of permanent cardiac pacemaker (08/02/18) S/P CABG x 2 S/P mitral valve repair Social History household members: none Smoking Status: Former smoker how long ago did patient quit smoking: Quit in 1967. alcohol intake: never substance use type: does not use caffeine: Yes Type: coffee Number of servings: 2 ROS ROS Narrative Review of systems: Constitutional: No recent fevers or chills. She does have a general malaise andgeneralized weakness. EYE: No visual complaints or pain. ENT: No difficulty swallowing, runny nose or sore throat. CV: No chest pain or palpitations but she has been near syncopal. Respiratory: No dyspnea or difficulty taking breaths. GI: Positive for blood in stools as noted above in HPI. : No frequency, dysuria or hematuria reported. Musculoskeletal: No recent trauma or pain. Skin: No rash or abscess. Neuro: No focal or lateralizing weakness or numbness. Endocrine: No polyuria, polydipsia or polyphagia. 14 point ROS otherwise negative except for positives noted above in HPI. Physical Exam Const alert and no apparent distress HEENT head/scalp atraumatic and moist oral mucous membranes Resp normal respiratory effort, no retractions, no use of accessory muscles and clearto auscultation bilaterally Cardio regular rate, regular rhythm, S1 normal heart sound and S2 normal heart sound GI normal to inspection, nondistended, normoactive bowel sounds, soft to palpation,non-tender and non-distended Neuro Sensorium / Orientation: awake Lab / Micro Data 06/14/23 11:45 06/14/23 03:30 Labs: Laboratory Results - last 24 hr 06/12/23 15:35: Diff Path Review Reviewed 06/13/23 14:55: WBC 11.3 H, RBC 2.89 L, Hgb 8.4 L, Hct 26.6 L, MCV 92.0, MCH 29.1, MCHC 31.6 L, RDW Std Deviation 52.7 H, RDW Coeff of Sakina 15.8 H, Plt Count 184, MPV 10.9, Immature Gran % (Auto) 0.400, Neut % (Auto) 77.5 H, Lymph % (Auto) 10.9 L, O'Brien % (Auto) 5.2, Eos % (Auto) 5.5 H, Baso % (Auto) 0.5, Absolute Neuts (auto) 8.7 H, Absolute Lymphs (auto) 1.23, Nucleated RBC % 0 06/13/23 15:20: Sodium 144, Potassium 3.4 L, Chloride 115 H, Carbon Dioxide 21.0, Anion Gap 8, BUN 21 H, Creatinine 1.12 H, Estim Creat Clear Calc 36.48, Est GFR (MDRD) Af Amer 60, Est GFR (MDRD) Non-Af 49 L, BUN/Creatinine Ratio 18.8, Glucose 184 H, Calcium 7.8 L, Phosphorus 2.6, Magnesium 1.5 L 06/14/23 03:30: WBC 11.9 H, RBC 2.75 L, Hgb 8.0 L, Hct 25.4 L, MCV 92.4, MCH 29.1, MCHC 31.5 L, RDW Std Deviation 53.4 H, RDW Coeff of Sakina 15.9 H, Plt Count 176, MPV 10.3, Immature Gran % (Auto) 0.500, Neut % (Auto) 69.7, Lymph % (Auto) 14.6 L, O'Brien % (Auto) 6.4, Eos % (Auto) 8.3 H, Baso % (Auto) 0.5, Absolute Neuts(auto) 8.3 H, Absolute Lymphs (auto) 1.74, Nucleated RBC % 0, Sodium 143, Potassium 4.2, Chloride 117 H, Carbon Dioxide 23.0, Anion Gap 3 L, BUN 19 H, Creatinine 1.01, Estim Creat Clear Calc 40.45, Est GFR (MDRD) Af Amer 67, Est GFR (MDRD) Non-Af 56 L, BUN/Creatinine Ratio 18.8, Glucose 99, Calcium 8.2 L, Phosphorus 2.5, Magnesium 2.0 06/14/23 11:45: Hgb 8.3 L, Hct 26.4 L Assessment & Plan Assessment/Plan (1) GI bleed: QUALIFIERS: GI bleed type/associated pathology: melena Qualified Code(s): K92.1 - Melena (2) Medication induced coagulopathy: (3) Non-ischemic cardiomyopathy: (4) Anticoagulant long-term use: PLAN: Plan 83-year-old with past medical history of CAD status post CABG x 2, status post mitral valve repair for mitral regurgitation status post ST segment elevation MIwith 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 Severe acute blood loss anemia requiring transfusion with a hemoglobin of 5.8 g/dL present on admission likely due to suspected PUD with melena . Transfuse 2 units of PRBC's began in the ER. Transfuse as necessary to keep hemoglobin > 7 g/dL. Continue IV Protonix drip and keep strict NPO. Patient will undergo an upper endoscopy to evaluate upper GI tract. She was explained alternatives, risk, benefits include not withstanding bleeding, infection, sepsis, perforation, need for more discharge and . She will have an ASA of 3. 06/14/23 1221 <Electronically signed by Rigoberto Morton DO> Cosigner Signature (if applicable): CC: Dr. Luiz Avery MD; Dr. Parker Bergman DO~ Signed [facility] Work Phone: [phone] 411-377402-14-2024 Progress note Author Deandre Lozano [facility] June 13, 2023 3:00pm Note Date/Time June 13, 2023 7:22am [facility] Medical Records Department [address] [place] [address] Progress Note - Hospitalist 06/13/23706 MR#: [id number] Acct: [id number] Name: DAYANA QUIÑONES Rep #:[id number] : 1940 83 From: Deandre Lozano DO PCP: Dr. Luiz Avery MD Status :ADM IN Location: ICU ICU02-1 Reason for Visit Reason for Visit: Diagnoses Coagulation defect, unspecified (06/12/23) Other cardiomyopathies (06/12/23) Melena (06/12/23) Adverse effect of unspecified drugs, medicaments and biological substances, initial encounter (06/12/23) FDC (current) use of anticoagulants (06/12/23) Subjective Subjective No further melena. Though did have some hematochezia around 0600. Objective Data Objective Data Vital Signs: Vital Signs Temp Pulse Resp BP Pulse Ox O2 Del Method 36.2 C L 85 20 H 97/61 98 Room Air 06/13/23 06:00 06/13/23 07:00 06/13/23 07:00 06/13/23 07:00 06/13/23 07:00 06/13/23 07:00 Oxygen Delivery Method Room Air Weight: 75.9 kg Body Mass Index (BMI) 29.6 Intake & Output: Intake and Output for Last 24 Hours 06/11/23 06/12/23 06/13/23 23:59 23:59 23:59 Intake Total 1001 / 1001 2 / 2 Balance 1001 / 1001 2 / 2 Lab / Micro Data 06/13/23 06:10 06/13/23 06:10 Labs: Laboratory Results - last 24 hr 06/12/23 15:35: WBC 11.0, RBC 1.92 L, Hgb 5.8 L*, Hct 18.0 L, MCV 93.8, MCH 30.2, MCHC 32.2, RDW Std Deviation 53.3 H, RDW Coeff of Sakina 15.8 H, Plt Count 217, MPV 10.5, Immature Gran % (Auto) 0.300, Neut % (Auto) 76.3 H, Lymph % (Auto) 13.5 L, O'Brien % (Auto) 7.7, Eos % (Auto) 1.9, Baso % (Auto) 0.3, Absolute Neuts (auto) 8.4 H, Absolute Lymphs (auto) 1.48, Nucleated RBC % 0, Diff Path Review August, Platelet Estimate ADEQUATE, RBC Morphology N CHROM, Polychromasia RARE, Hypochromasia 2+, Anisocytosis RARE, Macrocytosis 1+, Ovalocytes RARE, PT 22.2 H, INR 1.9, APTT 35.3, Sodium 136, Potassium 3.7, Chloride 104, Carbon Dioxide 23.0, Anion Gap 9, BUN 35 H, Creatinine 1.43 H, Estim Creat Clear Calc 27.35, Est GFR (MDRD) Af Amer 45 L, Est GFR (MDRD) Non-Af 37 L, BUN/Creatinine Ratio 24.5 H, Glucose 118 H, Lactic Acid 2.5 H*, Calcium 7.9 L, Total Bilirubin 0.50, AST 17, ALT 9 L, Alkaline Phosphatase 88, Total Protein 5.6 L, Albumin 2.7 L, Globulin 2.9, Albumin/Globulin Ratio 0.9, Lipase 45, Digoxin 0.66 L, Blood Type O POSITIVE, Antibody Screen NEGATIVE, Crossmatch See Detail 06/12/23 15:50: Crossmatch See Detail 06/12/23 21:29: Lactic Acid 1.0 06/13/23 06:10: WBC 9.0, RBC 2.63 L, Hgb 7.9 L, Hct 24.0 L, MCV 91.3, MCH 30.0, MCHC 32.9, RDW Std Deviation 51.4 H, RDW Coeff of Sakina 15.5 H, Plt Count 141 L, MPV 10.4, Immature Gran % (Auto) 0.300, Neut % (Auto) 71.5 H, Lymph % (Auto) 14.0 L, O'Brien % (Auto) 6.8, Eos % (Auto) 6.8 H, Baso % (Auto) 0.6, Absolute Neuts(auto) 6.5, Absolute Lymphs (auto) 1.26, Nucleated RBC % 0, Sodium 148 H, Potassium 2.8 L, Chloride 120 H, Carbon Dioxide 19.0 L, Anion Gap 9, BUN 24 H, Creatinine 0.81, Estim Creat Clear Calc 50.44, Est GFR (MDRD) Af Amer 86, Est GFR (MDRD) Non-Af 71, BUN/Creatinine Ratio 29.5 H, Glucose 81, Calcium 6.3 L*, Phosphorus 2.4 L, Magnesium 1.0 L, TSH 0.84 Physical Exam Const alert and no apparent distress HEENT head/scalp atraumatic and moist oral mucous membranes Resp normal respiratory effort, no retractions, no use of accessory muscles and clearto auscultation bilaterally Cardio regular rate, regular rhythm, S1 normal heart sound and S2 normal heart sound GI normal to inspection, nondistended, normoactive bowel sounds, soft to palpation,non-tender and non-distended Neuro Sensorium / Orientation: awake Assessment & Plan Assessment/Plan (1) GI bleed: QUALIFIERS: GI bleed type/associated pathology: melena Qualified Code(s): K92.1 - Melena PLAN: Plan acute blood loss anemia * requiring transfusion with a hemoglobin of 5.8 g/dL present on admission likely due to suspected PUD with melena * Improved to 7.9 after 3 units PRBCs * Pantoprazole drip * apixaban on hold given GI bleed * etiology: diverticular v PUD v AVM v other * CTA AP showed diverticulosis, but no obvious source of bleeding. GIB * unclear source * complicated by apixaban, which has been held. Hemorrhagic shock * 2/2 ABLA * improved with transfusions and IVF * sacubitril/valsartan, furosemide held. Abnormal electrolytes. * recheck for accuracy. If persists then treat as appropriate. Chronic conditions: * Chronic HFrEF: LVEF ~15% meds held give hypotension. caution with IVF. * CAD; s/p ME with subsequent stents * History of Mobitz-II AV-block; s/p PPM * History of pulmonary fibrosis * History of vertigo - Give Antivert prn. * Generalized anxiety * OA * Paroxysmal atrial flutter: Apixaban currently on hold. Discussed with patient and her daughter, plan is to resume that at some point after bleeding is stopped DVT prophylaxis - SCD's only with active GI bleeding. DW pt's dtr at bedside. Greater than 55 minutes of which greater than 50% of time was counseling the patient and her daughter at bedside about the bleeding, potential etiologies, and the plan to resume apixaban after bleeding is confirmed to be stopped at some point. Charges/Coding Visit Charges Inpatient E&M: 97363 Subs Hosp L3 06/13/23 1500 <Electronically signed by Deandre Lozano DO> Cosigner Signature (if applicable): CC: ~ Signed [facility] Work Phone: [phone] History and physical note Author Parker Rosenbaum [facility] June 13, 2023 12:54am Note Date/Time June 12, 2023 10:12pm [facility] Medical Records Department [address] [place] [address] H&P Exam - Hospitalist 06/12/232202 MR#: [id number] Acct: [id number] Name: DAYANA QUIÑONES Rep #:[id number] : 1940 83 From: Parker Vale DO PCP: Dr. Luiz Avery MD Status :ADM IN Location: ICU ICU02-1 HPI - General General Date of Admission: 06/12/23 Date of Service: 06/12/23 Chief Complaint: GI Bleeding. HPI Narrative DAYANA QUIÑONES, is a 83 F with a past medical history of essential hypertension, chronic anemia, CAD; s/p ME with subsequent stents, CAD; s/p CABG x2, chronic systolic and diastolic CHF; with LVEF ~15% on Eliquis, history of Mobitz-II AV- block; s/p PPM, history of pulmonary fibrosis, history of vertigo, generalized anxiety and OA who presents to [facility] ER complaining of GI bleeding. Ms. Quiñones reports her symptoms began approximately 5 days prior to admission with very dark stools that turned the water red in the toilet. She then continued to take her Eliquis and Entestro plus her Lasix with worsening dizziness with standing, generalized weakness and malaise with her blood pressure dropping to the ~80 mmHg systolic range. Then earlier today she fellwhen she was trying to walk across a room and she finally decided to come in forfurther evaluation and treatment. She denies associated fever, chills, nausea, vomiting, abdominal pain or chest pain. She admits to a remote history of colonoscopy but she denies a history of previous EGD. In the ER she was noted to have severe acute blood loss anemia requiring transfusion with a hemoglobin of 5.8 g/dL present on admission likely due to suspected PUD complicated by an adverse drug reaction to Eliquis and Entestro and she was then admitted to the ICU for ongoing care for a stay that is expected to be greater than 48 hours. 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) Home Medications aspirin 81 mg chewable tablet 81 mg PO DAILY@0800 circulation 12/08/16 [History Last Taken 06/12/23] erythromycin 5 mg/gram (0.5 %) eye ointment 1 applic LEFT EYE Q eye health 12/08/16 [History Last Taken 06/09/23] omeprazole 40 mg capsule,delayed release 40 mg PO DAILY acid reflux 12/08/16 [History Last Taken 06/12/23] acyclovir 800 mg tablet 800 mg PO DAILY SHINGLES 09/11/19 [History Last Taken 06/12/23] difluprednate 0.05 % eye drops 1 drp ophthalmic (eye) Q OTHER DAY 05/13/20 [History Last Taken 06/10/23] timolol maleate 0.5 % eye drops 1 drp ophthalmic (eye) BID 02/14/22 [History Last Taken 06/11/23] vit A 300 mcg-C 200 mg-E 27 mg-lutein 2 mg and minerals tablet (Eye Health Plus Lutein) 1 tab PO BID 02/14/22 [History Last Taken Unknown] dapagliflozin propanediol 10 mg tablet (Farxiga) 10 mg PO DAILY #90 tabs 09/19/22 [Rx Last Taken 06/12/23] apixaban 5 mg tablet (Eliquis) 5 mg PO BID #180 tabs 02/09/23 [Rx Last Taken 06/12/23] atorvastatin 20 mg tablet 20 mg PO QHS #90 tabs 02/09/23 [Rx Last Taken 06/11/23] carvedilol 3.125 mg tablet (Coreg) 3.125 mg PO BID #180 tabs 05/16/23 [Rx Last Taken 06/12/23] digoxin 125 mcg (0.125 mg) tablet 125 mcg PO .COMPLEX #60 tabs 05/16/23 [Rx Last Taken 06/11/23] furosemide 20 mg tablet 10 mg (1/2 x 20 mg) PO DAILY #45 tabs 06/11/23 [Rx Last Taken 06/12/23] sacubitril 24 mg-valsartan 26 mg tablet (Entresto) 1 tab PO BID 06/11/23 [History Last Taken 06/12/23] naproxen sodium 220 mg capsule 220 mg PO BID PRN pain 06/12/23 [History Last Taken 06/12/23] propylene glycol 0.6 % eye drops (Lubricant Eye (propylene glycol)) 1 drp EACH EYE DAILY PRN DRY EYE 06/12/23 [History Last Taken Unknown] vit C 250 mg-vit E 90 mg-zinc 40 mg-copper 1 [id number] capsule (PreserVision AREDS-2) 1 tab PO BID 06/12/23 [History Last Taken 06/12/23] Allergy/AdvReac Type Severity Reaction Status Date / Time morphine Allergy Vomiting Verified 05/16/23 12:56 sacubitril [From Entresto] AdvReac Intermediate Hypotension Verified 06/05/23 16:15 on lowest dose valsartan [From Entresto] AdvReac Intermediate Hypotension Verified 06/05/23 16:15 on lowest dose Family History Father Heart disease Mother Heart disease Chronic anemia Iron deficiency Surgical History History of coronary artery stent placement (12/19/18) History of left heart catheterization (06/21/20) Presence of permanent cardiac pacemaker (08/02/18) S/P CABG x 2 S/P mitral valve repair Social History household members: none Smoking Status: Former smoker how long ago did patient quit smoking: Quit in 1967. alcohol intake: never substance use type: does not use caffeine: Yes Type: coffee Number of servings: 2 ROS ROS Narrative Review of systems: Constitutional: No recent fevers or chills. She does have a general malaise andgeneralized weakness. EYE: No visual complaints or pain. ENT: No difficulty swallowing, runny nose or sore throat. CV: No chest pain or palpitations but she has been near syncopal. Respiratory: No dyspnea or difficulty taking breaths. GI: Positive for blood in stools as noted above in HPI. : No frequency, dysuria or hematuria reported. Musculoskeletal: No recent trauma or pain. Skin: No rash or abscess. Neuro: No focal or lateralizing weakness or numbness. Endocrine: No polyuria, polydipsia or polyphagia. 14 point ROS otherwise negative except for positives noted above in HPI. Vital Signs Vital Signs Vital Signs: 06/12/23 14:51 06/12/23 15:01 06/12/23 15:09 Temperature 97.2 F L Temperature Source Temporal Pulse Rate 83 Respiratory Rate 24 H Respiratory Pattern Normal Blood Pressure 137/105 H 78/44 L Blood Pressure Mean 115 55 Blood Pressure Source Blood Pressure Position Blood Pressure Location Pulse Ox 100 Oxygen Delivery Method Room Air 06/12/23 15:22 06/12/23 15:45 06/12/23 16:00 Temperature Temperature Source Pulse Rate 88 80 Respiratory Rate 21 H 19 H Respiratory Pattern Blood Pressure 87/54 L 123/96 H 83/49 L Blood Pressure Mean 65 105 60 Blood Pressure Source Blood Pressure Position Blood Pressure Location Pulse Ox 100 98 Oxygen Delivery Method Room Air Room Air 06/12/23 16:31 06/12/23 17:18 06/12/23 17:33 Temperature 97.8 F 98.0 F Temperature Source Oral Oral Pulse Rate 86 85 88 Respiratory Rate 25 H 22 H 17 Respiratory Pattern Blood Pressure 83/40 L 74/49 L 75/57 L Blood Pressure Mean 54 57 63 Blood Pressure Source Monitor Blood Pressure Position Semi-Fowlers Blood Pressure Location Right Arm Pulse Ox 100 97 98 Oxygen Delivery Method Room Air Room Air Room Air 06/12/23 18:16 06/12/23 19:32 06/12/23 19:32 Temperature 97.9 F 97.9 F Temperature Source Temporal Temporal Pulse Rate 85 82 82 Respiratory Rate 18 17 17 Respiratory Pattern Blood Pressure 75/47 L 82/40 L 82/40 L Blood Pressure Mean 56 54 54 Blood Pressure Source Monitor Monitor Blood Pressure Position Semi-Fowlers Semi-Fowlers Blood Pressure Location Left Arm Left Arm Pulse Ox 96 97 97 Oxygen Delivery Method Room Air Room Air 06/12/23 19:47 06/12/23 15:04 06/12/23 15:06 Temperature 97.4 F L Temperature Source Temporal Pulse Rate 83 78 84 Respiratory Rate 20 H 14 15 Respiratory Pattern Blood Pressure 82/40 L 78/44 L Blood Pressure Mean 54 55 Blood Pressure Source Monitor Blood Pressure Position Semi-Fowlers Blood Pressure Location Left Arm Pulse Ox 97 Oxygen Delivery Method Room Air 06/12/23 15:10 06/12/23 15:15 06/12/23 15:20 Temperature Temperature Source Pulse Rate 83 86 87 Respiratory Rate 24 H 21 H 16 Respiratory Pattern Blood Pressure 87/54 L Blood Pressure Mean 60 Blood Pressure Source Blood Pressure Position Blood Pressure Location Pulse Ox Oxygen Delivery Method 06/12/23 15:24 06/12/23 15:31 06/12/23 15:32 Temperature Temperature Source Pulse Rate 87 84 Respiratory Rate 20 H 21 H Respiratory Pattern Blood Pressure 71/37 L 99/82 H Blood Pressure Mean 49 89 Blood Pressure Source Blood Pressure Position Blood Pressure Location Pulse Ox Oxygen Delivery Method 06/12/23 15:40 06/12/23 15:45 06/12/23 15:50 Temperature Temperature Source Pulse Rate 88 85 83 Respiratory Rate 23 H 29 H 27 H Respiratory Pattern Blood Pressure 123/96 H Blood Pressure Mean 105 Blood Pressure Source Blood Pressure Position Blood Pressure Location Pulse Ox Oxygen Delivery Method 06/12/23 16:00 06/12/23 16:10 06/12/23 16:15 Temperature Temperature Source Pulse Rate 81 83 83 Respiratory Rate 17 11 L 20 H Respiratory Pattern Blood Pressure 83/49 L 68/36 L Blood Pressure Mean 60 48 Blood Pressure Source Blood Pressure Position Blood Pressure Location Pulse Ox Oxygen Delivery Method 06/12/23 16:20 06/12/23 16:30 06/12/23 16:40 Temperature Temperature Source Pulse Rate 85 87 87 Respiratory Rate 21 H 19 H 21 H Respiratory Pattern Blood Pressure 72/21 L 83/40 L 72/39 L Blood Pressure Mean 36 53 51 Blood Pressure Source Blood Pressure Position Blood Pressure Location Pulse Ox Oxygen Delivery Method 06/12/23 16:50 06/12/23 17:00 06/12/23 17:10 Temperature Temperature Source Pulse Rate 87 87 85 Respiratory Rate 18 26 H 18 Respiratory Pattern Blood Pressure 75/38 L 72/50 L 74/49 L Blood Pressure Mean 51 59 56 Blood Pressure Source Blood Pressure Position Blood Pressure Location Pulse Ox Oxygen Delivery Method 06/12/23 17:20 06/12/23 17:25 06/12/23 17:30 Temperature Temperature Source Pulse Rate 86 86 89 Respiratory Rate 26 H 19 H 22 H Respiratory Pattern Blood Pressure 70/41 L 75/57 L Blood Pressure Mean 50 64 Blood Pressure Source Blood Pressure Position Blood Pressure Location Pulse Ox Oxygen Delivery Method 06/12/23 17:40 06/12/23 17:50 06/12/23 18:00 Temperature Temperature Source Pulse Rate 88 85 85 Respiratory Rate 24 H 18 24 H Respiratory Pattern Blood Pressure 75/47 L Blood Pressure Mean 54 Blood Pressure Source Blood Pressure Position Blood Pressure Location Pulse Ox Oxygen Delivery Method 06/12/23 18:10 06/12/23 18:12 06/12/23 18:14 Temperature Temperature Source Pulse Rate 82 84 87 Respiratory Rate 19 H 23 H 17 Respiratory Pattern Blood Pressure 70/34 L 78/44 L Blood Pressure Mean 43 55 Blood Pressure Source Blood Pressure Position Blood Pressure Location Pulse Ox Oxygen Delivery Method 06/12/23 18:20 06/12/23 18:30 06/12/23 18:40 Temperature Temperature Source Pulse Rate 85 84 88 Respiratory Rate 20 H 21 H 15 Respiratory Pattern Blood Pressure 76/45 L Blood Pressure Mean 56 Blood Pressure Source Blood Pressure Position Blood Pressure Location Pulse Ox Oxygen Delivery Method 06/12/23 18:50 06/12/23 19:00 06/12/23 19:10 Temperature Temperature Source Pulse Rate 87 88 89 Respiratory Rate 24 H 18 24 H Respiratory Pattern Blood Pressure 72/47 L Blood Pressure Mean 55 Blood Pressure Source Blood Pressure Position Blood Pressure Location Pulse Ox Oxygen Delivery Method 06/12/23 19:20 06/12/23 19:23 06/12/23 19:24 Temperature Temperature Source Pulse Rate 85 88 84 Respiratory Rate 19 H 22 H 12 Respiratory Pattern Blood Pressure 76/46 L 84/43 L Blood Pressure Mean 55 56 Blood Pressure Source Blood Pressure Position Blood Pressure Location Pulse Ox Oxygen Delivery Method 06/12/23 19:30 06/12/23 19:40 06/12/23 19:50 Temperature Temperature Source Pulse Rate 83 85 83 Respiratory Rate 19 H 17 17 Respiratory Pattern Blood Pressure 82/40 L Blood Pressure Mean 53 Blood Pressure Source Blood Pressure Position Blood Pressure Location Pulse Ox Oxygen Delivery Method 06/12/23 20:00 06/12/23 20:10 06/12/23 20:20 Temperature Temperature Source Pulse Rate 81 88 86 Respiratory Rate 20 H 18 26 H Respiratory Pattern Blood Pressure 81/44 L Blood Pressure Mean 57 Blood Pressure Source Blood Pressure Position Blood Pressure Location Pulse Ox Oxygen Delivery Method 06/12/23 20:30 Temperature Temperature Source Pulse Rate 89 Respiratory Rate 20 H Respiratory Pattern Blood Pressure 86/49 L Blood Pressure Mean 60 Blood Pressure Source Blood Pressure Position Blood Pressure Location Pulse Ox Oxygen Delivery Method Weight Weight: 152 lb 12.485 oz Body Mass Index (BMI) 27.0 Physical Exam Const alert, oriented x3, no apparent distress, average body habitus and healthy appearing Constitutional Narrative: Pale in appearance. General Appearance: cooperative HEENT normocephalic, head/scalp atraumatic, hearing grossly normal bilaterally and moist oral mucous membranes Eyes PERRL and EOMs intact bilaterally Neck no lymphadenopathy and supple Resp normal respiratory effort, no retractions, no use of accessory muscles and clearto auscultation bilaterally Cardio regular rate and regular rhythm GI normal to inspection, nondistended, normoactive bowel sounds, soft to palpation,non-tender and non-distended Extremity normal to inspection and full ROM Skin Skin Narrative: No evidence of rash. Positive pallor. Neuro oriented x3, CN's II-XII intact bilaterally, moves all extremities and no focal motor deficits Sensorium / Orientation: awake, alert, oriented to person, oriented to place andoriented to time Speech: speech normal Motor Exam: strength 5/5 throughout Psych affect normal Results Medical Records Data Attestation: I reviewed the patient's medical records Lab / Micro Data Attestation: I reviewed the patient's lab results. 06/12/23 15:35 06/12/23 15:35 Labs: Laboratory Results - last 24 hr 06/12/23 15:35: WBC 11.0, RBC 1.92 L, Hgb 5.8 L*, Hct 18.0 L, MCV 93.8, MCH 30.2, MCHC 32.2, RDW Std Deviation 53.3 H, RDW Coeff of Sakina 15.8 H, Plt Count 217, MPV 10.5, Immature Gran % (Auto) 0.300, Neut % (Auto) 76.3 H, Lymph % (Auto) 13.5 L, O'Brien % (Auto) 7.7, Eos % (Auto) 1.9, Baso % (Auto) 0.3, Absolute Neuts (auto) 8.4 H, Absolute Lymphs (auto) 1.48, Nucleated RBC % 0, Diff Path Review May foll, Platelet Estimate ADEQUATE, RBC Morphology N CHROM, Polychromasia RARE, Hypochromasia 2+, Anisocytosis RARE, Macrocytosis 1+, Ovalocytes RARE, PT 22.2 H, INR 1.9, APTT 35.3, Sodium 136, Potassium 3.7, Chloride 104, Carbon Dioxide 23.0, Anion Gap 9, BUN 35 H, Creatinine 1.43 H, Estim Creat Clear Calc 27.35, Est GFR (MDRD) Af Amer 45 L, Est GFR (MDRD) Non-Af37 L, BUN/Creatinine Ratio 24.5 H, Glucose 118 H, Lactic Acid 2.5 H*, Calcium 7.9 L, Total Bilirubin 0.50, AST 17, ALT 9 L, Alkaline Phosphatase 88, Total Protein 5.6 L, Albumin 2.7 L, Globulin 2.9, Albumin/Globulin Ratio 0.9, Lipase 45, Digoxin 0.66 L, Blood Type O POSITIVE, Antibody Screen NEGATIVE, Crossmatch See Detail 06/12/23 21:29: Lactic Acid 1.0 Assessment & Plan Assessment/Plan (1) GI bleed: QUALIFIERS: GI bleed type/associated pathology: melena Qualified Code(s): K92.1 - Melena (2) Medication induced coagulopathy: (3) Non-ischemic cardiomyopathy: (4) Anticoagulant long-term use: PLAN: Plan 1. Severe acute blood loss anemia requiring transfusion with a hemoglobin of 5.8 g/dL present on admission likely due to suspected PUD with melena - Admit toICU. Continue to transfuse 2 units of PRBC's begun in the ER. Transfuse as necessary to keep hemoglobin > 7 g/dL. Continue IV Protonix drip and keep strict NPO. Finally, we will consult the semiconductor processing technician on-call to see thispatient on-rounds in the AM for further recommendations with help appreciated inadvance. 2. Adverse drug reaction to Eliquis and Entestro complicating #1 - Hold Eliquisand all scheduled antihypertensives until further notice. 3. Chronic systolic and diastolic CHF; with LVEF ~15% on Eliquis compounding #1& #2 - Noted. Watch out for signs of CHF. 4. CAD; s/p ME with subsequent stents - Noted. 5. CAD; s/p CABG x2 - Noted. 6. History of Mobitz-II AV-block; s/p PPM - Noted. 7. History of pulmonary fibrosis - Noted. 8. History of vertigo - Give Antivert prn. 9. Generalized anxiety - Stable. 10. OA - Stable. 11. DVT prophylaxis - SCD's only with active GI bleeding. Total time: Approximately 55 minutes. Charges/Coding Visit Charges Inpatient E&M: 02957 Init Hosp L2 06/13/23 0054 <Electronically signed by Parker Bergman DO> Cosigner Signature (if applicable): CC: Dr. Luiz Avery MD; Dr. Parker Bergman DO~ Signed [facility] Work Phone: [phone] Discharge summary Author Tino Lewis [facility] June 12, 2023 9:24pm Note Date/Time June 12, 2023 3:35pm [facility] Medical Records Department [address] [place] [address] Emergency Department Summary 06/12/23 MR#: [id number] Acct: [id number] Name: DAYANA QUIÑONES Rep #:[id number] : 1940 83 From: Tino Lewis MD PCP: Dr. Luiz Avery MD Status :REG ER Location: ED HPI History of Present Illness Chief Complaint: Weakness Informant: patient and family Narrative Narrative: Patient is here because she does not feel well. Patient states that she got up this morning for breakfast and ate and felt okay. She took her Entresto and Lasix which are new meds that were just restarted at 10 AM. At 12 AM she got up and she was very dizzy. She denies falling or hurting herself. But her blood pressure is quite low. When specifically asked she admits that for the last 3 or so days she has had black and bloody bowel movements. She is on Eliquis. She is not having abdominal pain. She has no pain in any area. 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) Home Medications aspirin 81 mg chewable tablet 81 mg PO DAILY@0800 circulation 12/08/16 [History Last Taken 06/12/23] erythromycin 5 mg/gram (0.5 %) eye ointment 1 applic LEFT EYE QHS eye health 12/08/16 [History Last Taken 06/09/23] omeprazole 40 mg capsule,delayed release 40 mg PO DAILY acid reflux 12/08/16 [History Last Taken 06/12/23] acyclovir 800 mg tablet 800 mg PO DAILY SHINGLES 09/11/19 [History Last Taken 06/12/23] difluprednate 0.05 % eye drops 1 drp ophthalmic (eye) Q OTHER DAY 05/13/20 [History Last Taken 06/10/23] timolol maleate 0.5 % eye drops 1 drp ophthalmic (eye) BID 02/14/22 [History Last Taken 06/11/23] vit A 300 mcg-C 200 mg-E 27 mg-lutein 2 mg and minerals tablet (Eye Health Plus Lutein) 1 tab PO BID 02/14/22 [History Last Taken Unknown] dapagliflozin propanediol 10 mg tablet (Farxiga) 10 mg PO DAILY #90 tabs 09/19/22 [Rx Last Taken 06/12/23] apixaban 5 mg tablet (Eliquis) 5 mg PO BID #180 tabs 02/09/23 [Rx Last Taken 06/12/23] atorvastatin 20 mg tablet 20 mg PO QHS #90 tabs 02/09/23 [Rx Last Taken 06/11/23] carvedilol 3.125 mg tablet (Coreg) 3.125 mg PO BID #180 tabs 05/16/23 [Rx Last Taken 06/12/23] digoxin 125 mcg (0.125 mg) tablet 125 mcg PO .COMPLEX #60 tabs 05/16/23 [Rx Last Taken 06/11/23] furosemide 20 mg tablet 10 mg (1/2 x 20 mg) PO DAILY #45 tabs 06/11/23 [Rx Last Taken 06/12/23] sacubitril 24 mg-valsartan 26 mg tablet (Entresto) 1 tab PO BID 06/11/23 [History Last Taken 06/12/23] naproxen sodium 220 mg capsule 220 mg PO BID PRN pain 06/12/23 [History Last Taken 06/12/23] propylene glycol 0.6 % eye drops (Lubricant Eye (propylene glycol)) 1 drp EACH EYE DAILY PRN DRY EYE 06/12/23 [History Last Taken Unknown] vit C 250 mg-vit E 90 mg-zinc 40 mg-copper 1 [id number] capsule (PreserVision AREDS-2) 1 tab PO BID 06/12/23 [History Last Taken 06/12/23] Allergy/AdvReac Type Severity Reaction Status Date / Time morphine Allergy Vomiting Verified 05/16/23 12:56 sacubitril [From Entresto] AdvReac Intermediate Hypotension Verified 06/05/23 16:15 on lowest dose valsartan [From Entresto] AdvReac Intermediate Hypotension Verified 06/05/23 16:15 on lowest dose Family History Father Heart disease Mother Heart disease Chronic anemia Iron deficiency Surgical History History of coronary artery stent placement (12/19/18) History of left heart catheterization (06/21/20) Presence of permanent cardiac pacemaker (08/02/18) S/P CABG x 2 S/P mitral valve repair Social History household members: none Smoking Status: Former smoker how long ago did patient quit smoking: Quit in 1967. alcohol intake: never substance use type: does not use caffeine: Yes Type: coffee Number of servings: 2 ROS ROS ED ROS Narrative A complete review of systems was performed and is negative except as documented in the history of present illness. Some specific details below. Constitutional: No recent fevers or chills. She does have a general malaise andgeneralized weakness feeling. EYE: No visual complaints or pain. ENT: No difficulty swallowing. No swelling. No pain. No GERD. No vomiting. CV: No chest pain or palpitations. She has been near syncopal. Respiratory: No dyspnea. No hemoptysis. No difficulty taking breaths. GI: Please see history of present illness. But no pain. : No frequency dysuria or hematuria. Musculoskeletal: No recent trauma. No pains. Skin: No rash. Nondiaphoretic. Neuro: No focal or lateralizing weakness or numbness. Endocrine: No polyuria or polydipsia. EXAM Physical Exam Narrative Exam Narrative: CONSTITUTIONAL: Patient is pale in appearance. She does tell me the story clearly but is very slow with speech. But it is crystal-clear and there is no dysarthria or aphasia. HEENT: No notable trauma. Mucous membranes mildly dry. No sinus tenderness. No indication of pain with swallowing. EYES: No conjunctival injection. She does have very pale conjunctiva. CARDIOVASCULAR: Regular rate. Regular rhythm. No notable murmur. No JVD. Patient's not tachycardic but she is also on digoxin and carvedilol and timolol eyedrops. RESPIRATORY: No respiratory distress. Breathing is unlabored. No rales are heard and her saturations are 100% on room air showing no hypoxia. GASTROINTESTINAL: Not distended. Bowel sounds are normal. No tenderness. No guarding. No rebound. No palpable mass. No bruit. GENITOURINARY: No tenderness over the bladder. MUSCULOSKELETAL: Atraumatic. She does have pallor of palms. NEUROLOGICAL: Patient is alert and appropriate. No focal deficit noted. SKIN: She has pallor but no noted rashes. No diaphoresis. PSYCHIATRIC: Patient is calm. Mood is appropriate. Const Vital Signs: 06/12/23 14:51 06/12/23 15:01 06/12/23 15:09 Temperature 97.2 F L Temperature Source Temporal Pulse Rate 83 Respiratory Rate 24 H Respiratory Pattern Normal Blood Pressure 137/105 H 78/44 L Blood Pressure Mean 115 55 Blood Pressure Source Blood Pressure Position Blood Pressure Location Pulse Ox 100 Oxygen Delivery Method Room Air 06/12/23 15:22 06/12/23 15:45 06/12/23 16:00 Temperature Temperature Source Pulse Rate 88 80 Respiratory Rate 21 H 19 H Respiratory Pattern Blood Pressure 87/54 L 123/96 H 83/49 L Blood Pressure Mean 65 105 60 Blood Pressure Source Blood Pressure Position Blood Pressure Location Pulse Ox 100 98 Oxygen Delivery Method Room Air Room Air 06/12/23 16:31 06/12/23 17:18 06/12/23 17:33 Temperature 97.8 F 98.0 F Temperature Source Oral Oral Pulse Rate 86 85 88 Respiratory Rate 25 H 22 H 17 Respiratory Pattern Blood Pressure 83/40 L 74/49 L 75/57 L Blood Pressure Mean 54 57 63 Blood Pressure Source Monitor Blood Pressure Position Semi-Fowlers Blood Pressure Location Right Arm Pulse Ox 100 97 98 Oxygen Delivery Method Room Air Room Air Room Air 06/12/23 18:16 06/12/23 19:32 06/12/23 19:32 Temperature 97.9 F 97.9 F Temperature Source Temporal Temporal Pulse Rate 85 82 82 Respiratory Rate 18 17 17 Respiratory Pattern Blood Pressure 75/47 L 82/40 L 82/40 L Blood Pressure Mean 56 54 54 Blood Pressure Source Monitor Monitor Blood Pressure Position Semi-Fowlers Semi-Fowlers Blood Pressure Location Left Arm Left Arm Pulse Ox 96 97 97 Oxygen Delivery Method Room Air Room Air 06/12/23 19:47 06/12/23 15:04 06/12/23 15:06 Temperature 97.4 F L Temperature Source Temporal Pulse Rate 83 78 84 Respiratory Rate 20 H 14 15 Respiratory Pattern Blood Pressure 82/40 L 78/44 L Blood Pressure Mean 54 55 Blood Pressure Source Monitor Blood Pressure Position Semi-Fowlers Blood Pressure Location Left Arm Pulse Ox 97 Oxygen Delivery Method Room Air 06/12/23 15:10 06/12/23 15:15 06/12/23 15:20 Temperature Temperature Source Pulse Rate 83 86 87 Respiratory Rate 24 H 21 H 16 Respiratory Pattern Blood Pressure 87/54 L Blood Pressure Mean 60 Blood Pressure Source Blood Pressure Position Blood Pressure Location Pulse Ox Oxygen Delivery Method 06/12/23 15:24 06/12/23 15:31 06/12/23 15:32 Temperature Temperature Source Pulse Rate 87 84 Respiratory Rate 20 H 21 H Respiratory Pattern Blood Pressure 71/37 L 99/82 H Blood Pressure Mean 49 89 Blood Pressure Source Blood Pressure Position Blood Pressure Location Pulse Ox Oxygen Delivery Method 06/12/23 15:40 06/12/23 15:45 06/12/23 15:50 Temperature Temperature Source Pulse Rate 88 85 83 Respiratory Rate 23 H 29 H 27 H Respiratory Pattern Blood Pressure 123/96 H Blood Pressure Mean 105 Blood Pressure Source Blood Pressure Position Blood Pressure Location Pulse Ox Oxygen Delivery Method 06/12/23 16:00 06/12/23 16:10 06/12/23 16:15 Temperature Temperature Source Pulse Rate 81 83 83 Respiratory Rate 17 11 L 20 H Respiratory Pattern Blood Pressure 83/49 L 68/36 L Blood Pressure Mean 60 48 Blood Pressure Source Blood Pressure Position Blood Pressure Location Pulse Ox Oxygen Delivery Method 06/12/23 16:20 06/12/23 16:30 06/12/23 16:40 Temperature Temperature Source Pulse Rate 85 87 87 Respiratory Rate 21 H 19 H 21 H Respiratory Pattern Blood Pressure 72/21 L 83/40 L 72/39 L Blood Pressure Mean 36 53 51 Blood Pressure Source Blood Pressure Position Blood Pressure Location Pulse Ox Oxygen Delivery Method 06/12/23 16:50 06/12/23 17:00 06/12/23 17:10 Temperature Temperature Source Pulse Rate 87 87 85 Respiratory Rate 18 26 H 18 Respiratory Pattern Blood Pressure 75/38 L 72/50 L 74/49 L Blood Pressure Mean 51 59 56 Blood Pressure Source Blood Pressure Position Blood Pressure Location Pulse Ox Oxygen Delivery Method 06/12/23 17:20 06/12/23 17:25 06/12/23 17:30 Temperature Temperature Source Pulse Rate 86 86 89 Respiratory Rate 26 H 19 H 22 H Respiratory Pattern Blood Pressure 70/41 L 75/57 L Blood Pressure Mean 50 64 Blood Pressure Source Blood Pressure Position Blood Pressure Location Pulse Ox Oxygen Delivery Method 06/12/23 17:40 06/12/23 17:50 06/12/23 18:00 Temperature Temperature Source Pulse Rate 88 85 85 Respiratory Rate 24 H 18 24 H Respiratory Pattern Blood Pressure 75/47 L Blood Pressure Mean 54 Blood Pressure Source Blood Pressure Position Blood Pressure Location Pulse Ox Oxygen Delivery Method 06/12/23 18:10 06/12/23 18:12 06/12/23 18:14 Temperature Temperature Source Pulse Rate 82 84 87 Respiratory Rate 19 H 23 H 17 Respiratory Pattern Blood Pressure 70/34 L 78/44 L Blood Pressure Mean 43 55 Blood Pressure Source Blood Pressure Position Blood Pressure Location Pulse Ox Oxygen Delivery Method 06/12/23 18:20 06/12/23 18:30 06/12/23 18:40 Temperature Temperature Source Pulse Rate 85 84 88 Respiratory Rate 20 H 21 H 15 Respiratory Pattern Blood Pressure 76/45 L Blood Pressure Mean 56 Blood Pressure Source Blood Pressure Position Blood Pressure Location Pulse Ox Oxygen Delivery Method 06/12/23 18:50 06/12/23 19:00 06/12/23 19:10 Temperature Temperature Source Pulse Rate 87 88 89 Respiratory Rate 24 H 18 24 H Respiratory Pattern Blood Pressure 72/47 L Blood Pressure Mean 55 Blood Pressure Source Blood Pressure Position Blood Pressure Location Pulse Ox Oxygen Delivery Method 06/12/23 19:20 06/12/23 19:23 06/12/23 19:24 Temperature Temperature Source Pulse Rate 85 88 84 Respiratory Rate 19 H 22 H 12 Respiratory Pattern Blood Pressure 76/46 L 84/43 L Blood Pressure Mean 55 56 Blood Pressure Source Blood Pressure Position Blood Pressure Location Pulse Ox Oxygen Delivery Method 06/12/23 19:30 06/12/23 19:40 06/12/23 19:50 Temperature Temperature Source Pulse Rate 83 85 83 Respiratory Rate 19 H 17 17 Respiratory Pattern Blood Pressure 82/40 L Blood Pressure Mean 53 Blood Pressure Source Blood Pressure Position Blood Pressure Location Pulse Ox Oxygen Delivery Method 06/12/23 20:00 06/12/23 20:10 06/12/23 20:20 Temperature Temperature Source Pulse Rate 81 88 86 Respiratory Rate 20 H 18 26 H Respiratory Pattern Blood Pressure 81/44 L Blood Pressure Mean 57 Blood Pressure Source Blood Pressure Position Blood Pressure Location Pulse Ox Oxygen Delivery Method 06/12/23 20:30 Temperature Temperature Source Pulse Rate 89 Respiratory Rate 20 H Respiratory Pattern Blood Pressure 86/49 L Blood Pressure Mean 60 Blood Pressure Source Blood Pressure Position Blood Pressure Location Pulse Ox Oxygen Delivery Method MDM MDM MDM Narrative Medical decision making narrative: Patient CBC shows hemoglobin markedly low at 5.8 but preserved platelets and white count. Electrolytes show mild bump in BUN/creatinine she was given IV fluids here. This initially helped her pressure pending blood. Lactate was mildly up at 2.5. LFTs were normal. Digoxin level was slightly low. INR and PTT were normal She was given blood here. Her blood pressure is low at about 86/50. But when you look back on prior blood pressure it looks like her baseline is about 95-99 systolic. This is likely due to cardiomyopathy with an ejection fraction of 10 to 15%. This is likely why she was on Entresto and Lasix and trying to control her symptoms. Patient actually looks markedly better. She states she is not having pain or dyspnea. She is awake alert appropriate. Her color is better. She has not had a single bowel movement here. But with her her multiple bloody bowel movements over the weekend, low blood pressure, coagulopathy, cardiomyopathy I think ICU is appropriate for this lady as she is not completelystable at this point. Lab Data Attestation: I reviewed the patient's lab results. Labs: Laboratory Results - last 24 hr 06/12/23 15:35 WBC 11.0 RBC 1.92 L Hgb 5.8 L* Hct 18.0 L MCV 93.8 MCH 30.2 MCHC 32.2 RDW Std Deviation 53.3 H RDW Coeff of Sakina 15.8 H Plt Count 217 MPV 10.5 Immature Gran % (Auto) 0.300 Neut % (Auto) 76.3 H Lymph % (Auto) 13.5 L O'Brien % (Auto) 7.7 Eos % (Auto) 1.9 Baso % (Auto) 0.3 Absolute Neuts (auto) 8.4 H Absolute Lymphs (auto) 1.48 Nucleated RBC % 0 Diff Path Review May foll Platelet Estimate ADEQUATE RBC Morphology N CHROM Polychromasia RARE Hypochromasia 2+ Anisocytosis RARE Macrocytosis 1+ Ovalocytes RARE PT 22.2 H INR 1.9 APTT 35.3 Sodium 136 Potassium 3.7 Chloride 104 Carbon Dioxide 23.0 Anion Gap 9 BUN 35 H Creatinine 1.43 H Estim Creat Clear Calc 27.35 Est GFR (MDRD) Af Amer 45 L Est GFR (MDRD) Non-Af 37 L BUN/Creatinine Ratio 24.5 H Glucose 118 H Lactic Acid 2.5 H* Calcium 7.9 L Total Bilirubin 0.50 AST 17 ALT 9 L Alkaline Phosphatase 88 Total Protein 5.6 L Albumin 2.7 L Globulin 2.9 Albumin/Globulin Ratio 0.9 Lipase 45 Digoxin 0.66 L Blood Type O POSITIVE Antibody Screen NEGATIVE Crossmatch See Detail EKG Initial EKG: Comments: EKG shows paced rhythm with a rate of 86. Diffuse ST changes related to pacing. Critical Care Time Critical Care Time: Yes Critical care time (excluding procedures): 30-74 minutes, Including time spent:,Discussing w/Patient &/or Family/Food Operations Manager, Discussing w/Consultants, ArrangingAdmission or Transfer, Performing Direct Patient Care at Bedside and - (55 minutes, multiple rechecks, adding blood, consultants, documentation chart review) Discharge Plan Triage Chief Complaint: Weakness ED Provider: Tino Lewis Dx/Rx/DC Orders Clinical Impression: Medication induced coagulopathy, GI bleed, Anemia, Hypotension Prescriptions: No Action acyclovir 800 mg tablet 800 mg PO DAILY difluprednate 0.05 % drops 1 drp OPHTHALMIC Q OTHER DAY timolol maleate 0.5 % drops 1 drp ophthalmic (eye) BID Patient Comments: PT STATES SHE ONLY TAKES ON DAYS SHE DOESNT USE THE DUREZOL Rx Instructions: left eye Eye Health Plus Lutein 300 mcg-200 mg-27 mg-2 mg tablet 1 tab PO BID Farxiga 10 mg tablet 10 mg PO DAILY Qty: 90 3RF Eliquis 5 mg tablet 5 mg PO BID Qty: 180 3RF atorvastatin 20 mg tablet 20 mg PO QHS Qty: 90 3RF carvedilol [Coreg] 3.125 mg tablet 3.125 mg PO BID Qty: 180 3RF Rx Instructions: must administer with a meal/food digoxin 125 mcg (0.125 mg) tablet 125 mcg PO .COMPLEX Qty: 60 3RF Rx Instructions: 125 mcg orally M/W/F; omeprazole 40 MG capsule,delayed release(DR/EC) 40 mg PO DAILY Patient Comments: erythromycin 1 APPLIC ointment 1 applic LEFT EYE QHS Patient Comments: left eye aspirin 81 MG tablet,chewable 81 mg PO DAILY@0800 Lubricant Eye (propyl glycol) 0.6 % drops 1 drp EACH EYE DAILY PRN (Reason: DRY EYE) naproxen sodium 220 mg capsule 220 mg PO BID PRN (Reason: pain) PreserVision AREDS-2 250-90-40-1 mg capsule 1 tab PO BID Entresto 24-26 mg tablet 1 tab PO BID furosemide 20 mg tablet 10 mg PO DAILY Qty: 45 3RF Primary Care Provider: Luiz Avery Referrals: Luiz Avery MD [Primary Care Provider] - Disposition Disposition: Acute Care Hospital [facility] What to do if you have Problems For any increased pain, shortness of breath, bleeding, nausea or vomiting, chestpain, or any unexpected problems, contact your Primary Care Provider. Call [facility] ([phone]) or report to the closest Emergency Room. Call 911 if necessary. 06/12/232123 <Electronically signed by Tino Lewis MD> Cosigner Signature (if applicable): CC: Dr. Luiz Avery MD ~ Signed [facility] Work Phone: [phone]) 578-544302-13-2024 Discharge summary Author Tino Lewis [facility] June 12, 2023 9:24pm Note Date/Time June 12, 2023 3:35pm [facility] Medical Records Department [address] [place] [address] Emergency Department Summary 06/12/23 MR#: [id number] Acct: [id number] Name: DAYANA QUIÑONES Rep #:[id number] : 1940 83 From: Tino Lewis MD PCP: Dr. Luiz Avery MD Status :REG ER Location: ED HPI History of Present Illness Chief Complaint: Weakness Informant: patient and family Narrative Narrative: Patient is here because she does not feel well. Patient states that she got up this morning for breakfast and ate and felt okay. She took her Entresto and Lasix which are new meds that were just restarted at 10 AM. At 12 AM she got up and she was very dizzy. She denies falling or hurting herself. But her blood pressure is quite low. When specifically asked she admits that for the last 3 or so days she has had black and bloody bowel movements. She is on Eliquis. She is not having abdominal pain. She has no pain in any area. 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) Home Medications aspirin 81 mg chewable tablet 81 mg PO DAILY@0800 circulation 12/08/16 [History Last Taken 06/12/23] erythromycin 5 mg/gram (0.5 %) eye ointment 1 applic LEFT EYE Q eye health 12/08/16 [History Last Taken 06/09/23] omeprazole 40 mg capsule,delayed release 40 mg PO DAILY acid reflux 12/08/16 [History Last Taken 06/12/23] acyclovir 800 mg tablet 800 mg PO DAILY SHINGLES 09/11/19 [History Last Taken 06/12/23] difluprednate 0.05 % eye drops 1 drp ophthalmic (eye) Q OTHER DAY 05/13/20 [History Last Taken 06/10/23] timolol maleate 0.5 % eye drops 1 drp ophthalmic (eye) BID 02/14/22 [History Last Taken 06/11/23] vit A 300 mcg-C 200 mg-E 27 mg-lutein 2 mg and minerals tablet (Eye Health Plus Lutein) 1 tab PO BID 02/14/22 [History Last Taken Unknown] dapagliflozin propanediol 10 mg tablet (Farxiga) 10 mg PO DAILY #90 tabs 09/19/22 [Rx Last Taken 06/12/23] apixaban 5 mg tablet (Eliquis) 5 mg PO BID #180 tabs 02/09/23 [Rx Last Taken 06/12/23] atorvastatin 20 mg tablet 20 mg PO QHS #90 tabs 02/09/23 [Rx Last Taken 06/11/23] carvedilol 3.125 mg tablet (Coreg) 3.125 mg PO BID #180 tabs 05/16/23 [Rx Last Taken 06/12/23] digoxin 125 mcg (0.125 mg) tablet 125 mcg PO .COMPLEX #60 tabs 05/16/23 [Rx Last Taken 06/11/23] furosemide 20 mg tablet 10 mg (1/2 x 20 mg) PO DAILY #45 tabs 06/11/23 [Rx Last Taken 06/12/23] sacubitril 24 mg-valsartan 26 mg tablet (Entresto) 1 tab PO BID 06/11/23 [History Last Taken 06/12/23] naproxen sodium 220 mg capsule 220 mg PO BID PRN pain 06/12/23 [History Last Taken 06/12/23] propylene glycol 0.6 % eye drops (Lubricant Eye (propylene glycol)) 1 drp EACH EYE DAILY PRN DRY EYE 06/12/23 [History Last Taken Unknown] vit C 250 mg-vit E 90 mg-zinc 40 mg-copper 1 [id number] capsule (PreserVision AREDS-2) 1 tab PO BID 06/12/23 [History Last Taken 06/12/23] Allergy/AdvReac Type Severity Reaction Status Date / Time morphine Allergy Vomiting Verified 05/16/23 12:56 sacubitril [From Entresto] AdvReac Intermediate Hypotension Verified 06/05/23 16:15 on lowest dose valsartan [From Entresto] AdvReac Intermediate Hypotension Verified 06/05/23 16:15 on lowest dose Family History Father Heart disease Mother Heart disease Chronic anemia Iron deficiency Surgical History History of coronary artery stent placement (12/19/18) History of left heart catheterization (06/21/20) Presence of permanent cardiac pacemaker (08/02/18) S/P CABG x 2 S/P mitral valve repair Social History household members: none Smoking Status: Former smoker how long ago did patient quit smoking: Quit in 1967. alcohol intake: never substance use type: does not use caffeine: Yes Type: coffee Number of servings: 2 ROS ROS ED ROS Narrative A complete review of systems was performed and is negative except as documented in the history of present illness. Some specific details below. Constitutional: No recent fevers or chills. She does have a general malaise andgeneralized weakness feeling. EYE: No visual complaints or pain. ENT: No difficulty swallowing. No swelling. No pain. No GERD. No vomiting. CV: No chest pain or palpitations. She has been near syncopal. Respiratory: No dyspnea. No hemoptysis. No difficulty taking breaths. GI: Please see history of present illness. But no pain. : No frequency dysuria or hematuria. Musculoskeletal: No recent trauma. No pains. Skin: No rash. Nondiaphoretic. Neuro: No focal or lateralizing weakness or numbness. Endocrine: No polyuria or polydipsia. EXAM Physical Exam Narrative Exam Narrative: CONSTITUTIONAL: Patient is pale in appearance. She does tell me the story clearly but is very slow with speech. But it is crystal-clear and there is no dysarthria or aphasia. HEENT: No notable trauma. Mucous membranes mildly dry. No sinus tenderness. No indication of pain with swallowing. EYES: No conjunctival injection. She does have very pale conjunctiva. CARDIOVASCULAR: Regular rate. Regular rhythm. No notable murmur. No JVD. Patient's not tachycardic but she is also on digoxin and carvedilol and timolol eyedrops. RESPIRATORY: No respiratory distress. Breathing is unlabored. No rales are heard and her saturations are 100% on room air showing no hypoxia. GASTROINTESTINAL: Not distended. Bowel sounds are normal. No tenderness. No guarding. No rebound. No palpable mass. No bruit. GENITOURINARY: No tenderness over the bladder. MUSCULOSKELETAL: Atraumatic. She does have pallor of palms. NEUROLOGICAL: Patient is alert and appropriate. No focal deficit noted. SKIN: She has pallor but no noted rashes. No diaphoresis. PSYCHIATRIC: Patient is calm. Mood is appropriate. Const Vital Signs: 06/12/23 14:51 06/12/23 15:01 06/12/23 15:09 Temperature 97.2 F L Temperature Source Temporal Pulse Rate 83 Respiratory Rate 24 H Respiratory Pattern Normal Blood Pressure 137/105 H 78/44 L Blood Pressure Mean 115 55 Blood Pressure Source Blood Pressure Position Blood Pressure Location Pulse Ox 100 Oxygen Delivery Method Room Air 06/12/23 15:22 06/12/23 15:45 06/12/23 16:00 Temperature Temperature Source Pulse Rate 88 80 Respiratory Rate 21 H 19 H Respiratory Pattern Blood Pressure 87/54 L 123/96 H 83/49 L Blood Pressure Mean 65 105 60 Blood Pressure Source Blood Pressure Position Blood Pressure Location Pulse Ox 100 98 Oxygen Delivery Method Room Air Room Air 06/12/23 16:31 06/12/23 17:18 06/12/23 17:33 Temperature 97.8 F 98.0 F Temperature Source Oral Oral Pulse Rate 86 85 88 Respiratory Rate 25 H 22 H 17 Respiratory Pattern Blood Pressure 83/40 L 74/49 L 75/57 L Blood Pressure Mean 54 57 63 Blood Pressure Source Monitor Blood Pressure Position Semi-Fowlers Blood Pressure Location Right Arm Pulse Ox 100 97 98 Oxygen Delivery Method Room Air Room Air Room Air 06/12/23 18:16 06/12/23 19:32 06/12/23 19:32 Temperature 97.9 F 97.9 F Temperature Source Temporal Temporal Pulse Rate 85 82 82 Respiratory Rate 18 17 17 Respiratory Pattern Blood Pressure 75/47 L 82/40 L 82/40 L Blood Pressure Mean 56 54 54 Blood Pressure Source Monitor Monitor Blood Pressure Position Semi-Fowlers Semi-Fowlers Blood Pressure Location Left Arm Left Arm Pulse Ox 96 97 97 Oxygen Delivery Method Room Air Room Air 06/12/23 19:47 06/12/23 15:04 06/12/23 15:06 Temperature 97.4 F L Temperature Source Temporal Pulse Rate 83 78 84 Respiratory Rate 20 H 14 15 Respiratory Pattern Blood Pressure 82/40 L 78/44 L Blood Pressure Mean 54 55 Blood Pressure Source Monitor Blood Pressure Position Semi-Fowlers Blood Pressure Location Left Arm Pulse Ox 97 Oxygen Delivery Method Room Air 06/12/23 15:10 06/12/23 15:15 06/12/23 15:20 Temperature Temperature Source Pulse Rate 83 86 87 Respiratory Rate 24 H 21 H 16 Respiratory Pattern Blood Pressure 87/54 L Blood Pressure Mean 60 Blood Pressure Source Blood Pressure Position Blood Pressure Location Pulse Ox Oxygen Delivery Method 06/12/23 15:24 06/12/23 15:31 06/12/23 15:32 Temperature Temperature Source Pulse Rate 87 84 Respiratory Rate 20 H 21 H Respiratory Pattern Blood Pressure 71/37 L 99/82 H Blood Pressure Mean 49 89 Blood Pressure Source Blood Pressure Position Blood Pressure Location Pulse Ox Oxygen Delivery Method 06/12/23 15:40 06/12/23 15:45 06/12/23 15:50 Temperature Temperature Source Pulse Rate 88 85 83 Respiratory Rate 23 H 29 H 27 H Respiratory Pattern Blood Pressure 123/96 H Blood Pressure Mean 105 Blood Pressure Source Blood Pressure Position Blood Pressure Location Pulse Ox Oxygen Delivery Method 06/12/23 16:00 06/12/23 16:10 06/12/23 16:15 Temperature Temperature Source Pulse Rate 81 83 83 Respiratory Rate 17 11 L 20 H Respiratory Pattern Blood Pressure 83/49 L 68/36 L Blood Pressure Mean 60 48 Blood Pressure Source Blood Pressure Position Blood Pressure Location Pulse Ox Oxygen Delivery Method 06/12/23 16:20 06/12/23 16:30 06/12/23 16:40 Temperature Temperature Source Pulse Rate 85 87 87 Respiratory Rate 21 H 19 H 21 H Respiratory Pattern Blood Pressure 72/21 L 83/40 L 72/39 L Blood Pressure Mean 36 53 51 Blood Pressure Source Blood Pressure Position Blood Pressure Location Pulse Ox Oxygen Delivery Method 06/12/23 16:50 06/12/23 17:00 06/12/23 17:10 Temperature Temperature Source Pulse Rate 87 87 85 Respiratory Rate 18 26 H 18 Respiratory Pattern Blood Pressure 75/38 L 72/50 L 74/49 L Blood Pressure Mean 51 59 56 Blood Pressure Source Blood Pressure Position Blood Pressure Location Pulse Ox Oxygen Delivery Method 06/12/23 17:20 06/12/23 17:25 06/12/23 17:30 Temperature Temperature Source Pulse Rate 86 86 89 Respiratory Rate 26 H 19 H 22 H Respiratory Pattern Blood Pressure 70/41 L 75/57 L Blood Pressure Mean 50 64 Blood Pressure Source Blood Pressure Position Blood Pressure Location Pulse Ox Oxygen Delivery Method 06/12/23 17:40 06/12/23 17:50 06/12/23 18:00 Temperature Temperature Source Pulse Rate 88 85 85 Respiratory Rate 24 H 18 24 H Respiratory Pattern Blood Pressure 75/47 L Blood Pressure Mean 54 Blood Pressure Source Blood Pressure Position Blood Pressure Location Pulse Ox Oxygen Delivery Method 06/12/23 18:10 06/12/23 18:12 06/12/23 18:14 Temperature Temperature Source Pulse Rate 82 84 87 Respiratory Rate 19 H 23 H 17 Respiratory Pattern Blood Pressure 70/34 L 78/44 L Blood Pressure Mean 43 55 Blood Pressure Source Blood Pressure Position Blood Pressure Location Pulse Ox Oxygen Delivery Method 06/12/23 18:20 06/12/23 18:30 06/12/23 18:40 Temperature Temperature Source Pulse Rate 85 84 88 Respiratory Rate 20 H 21 H 15 Respiratory Pattern Blood Pressure 76/45 L Blood Pressure Mean 56 Blood Pressure Source Blood Pressure Position Blood Pressure Location Pulse Ox Oxygen Delivery Method 06/12/23 18:50 06/12/23 19:00 06/12/23 19:10 Temperature Temperature Source Pulse Rate 87 88 89 Respiratory Rate 24 H 18 24 H Respiratory Pattern Blood Pressure 72/47 L Blood Pressure Mean 55 Blood Pressure Source Blood Pressure Position Blood Pressure Location Pulse Ox Oxygen Delivery Method 06/12/23 19:20 06/12/23 19:23 06/12/23 19:24 Temperature Temperature Source Pulse Rate 85 88 84 Respiratory Rate 19 H 22 H 12 Respiratory Pattern Blood Pressure 76/46 L 84/43 L Blood Pressure Mean 55 56 Blood Pressure Source Blood Pressure Position Blood Pressure Location Pulse Ox Oxygen Delivery Method 06/12/23 19:30 06/12/23 19:40 06/12/23 19:50 Temperature Temperature Source Pulse Rate 83 85 83 Respiratory Rate 19 H 17 17 Respiratory Pattern Blood Pressure 82/40 L Blood Pressure Mean 53 Blood Pressure Source Blood Pressure Position Blood Pressure Location Pulse Ox Oxygen Delivery Method 06/12/23 20:00 06/12/23 20:10 06/12/23 20:20 Temperature Temperature Source Pulse Rate 81 88 86 Respiratory Rate 20 H 18 26 H Respiratory Pattern Blood Pressure 81/44 L Blood Pressure Mean 57 Blood Pressure Source Blood Pressure Position Blood Pressure Location Pulse Ox Oxygen Delivery Method 06/12/23 20:30 Temperature Temperature Source Pulse Rate 89 Respiratory Rate 20 H Respiratory Pattern Blood Pressure 86/49 L Blood Pressure Mean 60 Blood Pressure Source Blood Pressure Position Blood Pressure Location Pulse Ox Oxygen Delivery Method MDM MDM MDM Narrative Medical decision making narrative: Patient CBC shows hemoglobin markedly low at 5.8 but preserved platelets and white count. Electrolytes show mild bump in BUN/creatinine she was given IV fluids here. This initially helped her pressure pending blood. Lactate was mildly up at 2.5. LFTs were normal. Digoxin level was slightly low. INR and PTT were normal She was given blood here. Her blood pressure is low at about 86/50. But when you look back on prior blood pressure it looks like her baseline is about 95-99 systolic. This is likely due to cardiomyopathy with an ejection fraction of 10 to 15%. This is likely why she was on Entresto and Lasix and trying to control her symptoms. Patient actually looks markedly better. She states she is not having pain or dyspnea. She is awake alert appropriate. Her color is better. She has not had a single bowel movement here. But with her her multiple bloody bowel movements over the weekend, low blood pressure, coagulopathy, cardiomyopathy I think ICU is appropriate for this lady as she is not completelystable at this point. Lab Data Attestation: I reviewed the patient's lab results. Labs: Laboratory Results - last 24 hr 06/12/23 15:35 WBC 11.0 RBC 1.92 L Hgb 5.8 L* Hct 18.0 L MCV 93.8 MCH 30.2 MCHC 32.2 RDW Std Deviation 53.3 H RDW Coeff of Sakina 15.8 H Plt Count 217 MPV 10.5 Immature Gran % (Auto) 0.300 Neut % (Auto) 76.3 H Lymph % (Auto) 13.5 L O'Brien % (Auto) 7.7 Eos % (Auto) 1.9 Baso % (Auto) 0.3 Absolute Neuts (auto) 8.4 H Absolute Lymphs (auto) 1.48 Nucleated RBC % 0 Diff Path Review May foll Platelet Estimate ADEQUATE RBC Morphology N CHROM Polychromasia RARE Hypochromasia 2+ Anisocytosis RARE Macrocytosis 1+ Ovalocytes RARE PT 22.2 H INR 1.9 APTT 35.3 Sodium 136 Potassium 3.7 Chloride 104 Carbon Dioxide 23.0 Anion Gap 9 BUN 35 H Creatinine 1.43 H Estim Creat Clear Calc 27.35 Est GFR (MDRD) Af Amer 45 L Est GFR (MDRD) Non-Af 37 L BUN/Creatinine Ratio 24.5 H Glucose 118 H Lactic Acid 2.5 H* Calcium 7.9 L Total Bilirubin 0.50 AST 17 ALT 9 L Alkaline Phosphatase 88 Total Protein 5.6 L Albumin 2.7 L Globulin 2.9 Albumin/Globulin Ratio 0.9 Lipase 45 Digoxin 0.66 L Blood Type O POSITIVE Antibody Screen NEGATIVE Crossmatch See Detail EKG Initial EKG: Comments: EKG shows paced rhythm with a rate of 86. Diffuse ST changes related to pacing. Critical Care Time Critical Care Time: Yes Critical care time (excluding procedures): 30-74 minutes, Including time spent:,Discussing w/Patient &/or Family/Food Operations Manager, Discussing w/Consultants, ArrangingAdmission or Transfer, Performing Direct Patient Care at Bedside and - (55 minutes, multiple rechecks, adding blood, consultants, documentation chart review) Discharge Plan Triage Chief Complaint: Weakness ED Provider: Tino Lewis Dx/Rx/DC Orders Clinical Impression: Medication induced coagulopathy, GI bleed, Anemia, Hypotension Prescriptions: No Action acyclovir 800 mg tablet 800 mg PO DAILY difluprednate 0.05 % drops 1 drp OPHTHALMIC Q OTHER DAY timolol maleate 0.5 % drops 1 drp ophthalmic (eye) BID Patient Comments: PT STATES SHE ONLY TAKES ON DAYS SHE DOESNT USE THE DUREZOL Rx Instructions: left eye Eye Health Plus Lutein 300 mcg-200 mg-27 mg-2 mg tablet 1 tab PO BID Farxiga 10 mg tablet 10 mg PO DAILY Qty: 90 3RF Eliquis 5 mg tablet 5 mg PO BID Qty: 180 3RF atorvastatin 20 mg tablet 20 mg PO QHS Qty: 90 3RF carvedilol [Coreg] 3.125 mg tablet 3.125 mg PO BID Qty: 180 3RF Rx Instructions: must administer with a meal/food digoxin 125 mcg (0.125 mg) tablet 125 mcg PO .COMPLEX Qty: 60 3RF Rx Instructions: 125 mcg orally M/W/F; omeprazole 40 MG capsule,delayed release(DR/EC) 40 mg PO DAILY Patient Comments: erythromycin 1 APPLIC ointment 1 applic LEFT EYE QHS Patient Comments: left eye aspirin 81 MG tablet,chewable 81 mg PO DAILY@0800 Lubricant Eye (propyl glycol) 0.6 % drops 1 drp EACH EYE DAILY PRN (Reason: DRY EYE) naproxen sodium 220 mg capsule 220 mg PO BID PRN (Reason: pain) PreserVision AREDS-2 250-90-40-1 mg capsule 1 tab PO BID Entresto 24-26 mg tablet 1 tab PO BID furosemide 20 mg tablet 10 mg PO DAILY Qty: 45 3RF Primary Care Provider: Luiz Avery Referrals: Luiz Avery MD [Primary Care Provider] - Disposition Disposition: Acute Care Hospital [facility] What to do if you have Problems For any increased pain, shortness of breath, bleeding, nausea or vomiting, chestpain, or any unexpected problems, contact your Primary Care Provider. Call [facility] ([phone]) or report to the closest Emergency Room. Call 911 if necessary. 06/12/232123 <Electronically signed by Tino Lewis MD> Cosigner Signature (if applicable): CC: Dr. Luiz Avery MD ~ Signed [facility] Work Phone: [phone]) 174-609712-07-2023 Miscellaneous Notes* Telephone Encounter - Kelly Hair LPN - 04/05/2023 4:24 PM EST Phoned patient and reviewed provider's message with her. Patient stated she will Contact Dr Thomas dobbins if she can get in with her since she doesn't want to travel out of town. Advised patient to contact us if unable to be seen within 2 weeks so lab recheck can be ordered by PCP. Patient voiced understanding. * Telephone Encounter - Amalia Avery MD - 04/05/2023 4:16 PM EST Her potassium level was on higher end of normal. I would have her stop the potassium supplement with the addition of the aldactone. If she gets an appointment with nephrology in the next couple weeksI would have them get it drawn there with any other testing they order. If appointment is farther out than that, I would order another level in about 2 weeks. I would have her continue the Farxiga as it does offer some kidney protection. * Telephone Encounter - Kelly Hair LPN - 04/05/2023 11:08 AM EST Patient is asking if she needs to continue potassium? Also asking if the farxiga is actually helping with her kidney disease since the advertisement on TV states that it does? Patient will contact scheduling desk to see about scheduling nephrology appt. She stated if [facility] doesn't have someone local she will likely opt for Dr Guzman since she wants to stay local. * Telephone Encounter - Amalia Avery MD - 04/05/2023 9:02 AM EST Patient with CKD in stage IIIb range. Worsened slightly compared to last check. With her needing additional diuretics, would refer her to nephrology to help manage her kidney function in combination with CHF. Recommend low sodium diet <2,000 mg per day, avoidance of NSAIDs. [facility] History of Present illness Narrative* Amalia Avery MD - 04/04/2023 8:04 AM EST Chief Complaint Patient presents with: Hospital F/U HPI Dayana Quiñones is a 83 year old female who presents here today for Hospital Discharge Follow up. Accompanied today by her daughter. Patient admitted to [facility] from 03/16 to 03/19 for CHF exacerbation after presenting to ER with worsening dyspnea for 1 week prior to admission. Echo during this hospitalization showed significant reduction of EF from 30% to 10- 15%. Treated with IV lasix, started on aldactone and SOB improved. Fitted for Lifevest prior to discharge. Recommended f/u with our office for hypokalemia and hospital followup. 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 Vit A,C,S-Hplm-Lnwspg (ICAPS AREDS) 4,296 mcg-226 mg-90 mg cap [...] Never done Depression Assessment Never done Covid-19 Vaccine( - 2022- season) due on 12/29/2022 DTaP,Tdap,Td Vaccine(1 - Tdap) due on 05/17/2023 Diabetes Screening due on 12/08/2025 Bone Density Screening Completed Influenza Vaccine Completed Pneumococcal Vaccine: 65+ Completed Shingrix Vaccine Discontinued ASSESSMENT/PLAN: 1. Acute on chronic congestive heart failure, unspecified heart failure type (HCC) - ICD9: 428.0, ICD10: I50.9 (primary diagnosis) Symptoms have improved with addition of aldactone to current regimen. Continue LifeVest, sodium andfluid restrictions. Will recheck CMP today as requested. [...] above. Amalia Avery MD [facility] Discharge summary Author Nicolás Howell [facility] March 19, 2023 4:42pm Note Date/Time March 19, 2023 4:39pm [facility] Medical Records Department [address] [place] [address] Discharge Summary 03/19/23 1631 MR#: [id number] Acct: [id number] Name: DAYANA QUIÑONES Rep #:[id number] : 1940 83 From: Nicolás valdez MD PCP: Dr. Luiz Avery MD Status :ADM IN Location: [place] [address] Providers Date of Admission: 03/16/23 Primary Care Physician: Dr. Luiz Avery MD Consultations 03/16/23 21:50 Consult: Cardiology Routine Consulting Provider: Rashid Hankins Reason for Consult: HFrEF exac, recent CABG EMERGENT Consult: No MD Notified: Yes Date Notified: 03/16/23 Time Notified: 17:39 Method of Notification: Verbal Reason For Visit: HF EXACERBATION Diagnosis Discharge Diagnosis (1) S/P CABG x 2: Status: Chronic Code(s): Z95.1 - Presence of aortocoronary bypass graft (2) S/P mitral valve repair: Status: Acute Code(s): Z98.890 - Other specified postprocedural states (3) Fatigue: Status: Acute Code(s): R53.83 - Other fatigue (4) Ischemic cardiomyopathy: Status: Acute Code(s): I25.5 - Ischemic cardiomyopathy (5) SOB (shortness of breath): Status: Acute Code(s): R06.02 - Shortness of breath (6) 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: Status: Chronic Code(s): I25.10 - Atherosclerotic heart disease of morongo coronary artery without angina pectoris (7) History of coronary artery stent placement: Status: Resolved Code(s): Z95.5 - Presence of coronary angioplasty implant and graft (8) Mobitz (type) II atrioventricular block: Status: Chronic Code(s): I44.1 - Atrioventricular block, second degree (9) Hypokalemia: Status: Acute Code(s): E87.6 - Hypokalemia (10) WIN (dyspnea on exertion): Status: Acute Code(s): R06.09 - Other forms of dyspnea (11) Anticoagulant long-term use: Status: Acute Code(s): Z79.01 - watermaster (current) use of anticoagulants Medications at Discharge Home Medications aspirin 81 mg chewable tablet 81 mg PO DAILY@0800 circulation 12/08/16 erythromycin 5 mg/gram (0.5 %) eye ointment 1 applic LEFT EYE QHS eye health 12/08/16 omeprazole 40 mg capsule,delayed release 40 mg PO DAILY acid reflux 12/08/16 meclizine 25 mg tablet 25 mg PO TID PRN PRN Dizziness 08/01/18 acyclovir 800 mg tablet 800 mg PO DAILY 09/11/19 difluprednate 0.05 % eye drops 1 drp ophthalmic (eye) Q OTHER DAY 05/13/20 timolol maleate 0.5 % eye drops 1 drp ophthalmic (eye) BID 02/14/22 vit A 300 mcg-C 200 mg-E 27 mg-lutein 2 mg and minerals tablet (Eye Health Plus Lutein) 1 tab PO BID 02/14/22 dapagliflozin propanediol 10 mg tablet (Farxiga) 10 mg PO DAILY #90 tabs 09/19/22 apixaban 5 mg tablet (Eliquis) 5 mg PO BID #180 tabs 02/09/23 atorvastatin 20 mg tablet 20 mg PO QHS #90 tabs 02/09/23 sacubitril 24 mg-valsartan 26 mg tablet (Entresto) 1 tab PO BID #180 tabs 02/09/23 metoprolol succinate 25 mg tablet,extended release 24 hr 25 mg PO BID This is a dose increase #180 tabs 02/19/23 furosemide 20 mg tablet 40 mg (2 x 20 mg) PO DAILY #90 tabs 03/06/23 potassium chloride 20 mEq tablet,extended release 20 meq PO DAILY #90 tabs 03/14/23 cholecalciferol (vitamin D3) 50 mcg (2,000 unit) tablet (Vitamin D3) 2,000 unit PO DAILY 03/16/23 spironolactone 25 mg tablet 25 mg PO DAILY #30 tabs 03/19/23 Hospital Course Operations None Procedures 2-D Echocardiogram Summary of Care Provided Minutes Spent on Discharge: 40 Hospital Course: Per HPI: The patient is an 83 y/o F w/ PMHx: HTN, HLD, PAF, Chronic HFrEF/Ischemic cardiomyopathy (EF 11/2022 30%), Hx mobitz type II block s/p pacemaker placement, Valvular heart disease s/p MV repair, CAD s/p PCI and recent CABG x 2 11/2022, Chronic normocytic anemia, CKD stage III unclear subtypeper GFR trending, Pulmonary Fibrosis who presents to the [facility] ED on 03/16/23 withhistory of ongoing persistent dyspnea worse over the last week with ED presentation 2 days prior to current presentation with increase of her Lasix, doubling however she still remains significantly dyspneic worse with exertion with orthopnea and mild increase swelling to her legs although no pitting edema prompting referral to the ED for evaluation. Patient denies any associated chest discomfort with her current presentation. In the ED included T97.8, heart rate 98, BP 109/69, respiratory rate 20, 99% on room air, CBC with WC 9.0, hemoglobin 11.6, MCV 92.8, platelet 192 without marked shift, BMP with potassium2.8, BUN/creatinine 24/1.48, glucose 109, BNP one 513.1, chest x-ray with chronic fibrotic changes with no interval change from previous x-ray, EKG paced. In the ED patient administered Lasix 60 mg IV x1 as well as potassium chloride 40 mill equivalent p.o. x1. Hospital Course: 1. Acute on chronic systolic CHF exacerbation/CAD status post stent and CABG/HTN/HLD/A-fib?83-year-old presented to the hospital with ongoing dyspnea that have been worse over the last week or 2 prior to admission. Echocardiogramduring this admission demonstrated a significant reduction in her EF from 30% down to 10 to 15%. She was placed on IV Lasix as well as p.o. Aldactone and hershortness of breath has improved. She is on an SGLT2 inhibitor as well and cardiology recommended fitting for a LifeVest which is occurring this afternoon prior to discharge. She did have episodes of hypokalemia and I requested that she follow-up with her PCP to monitor her potassium as an outpatient as well as her renal function and in the meantime to hold her potassium supplementation. Ialso recommended 1500 to 1800 cc fluid restriction. Cardiology feels that as she has had previous cardiac surgery at [facility] that they will set up a referral for possible AICD at that institution. I discussed with her the plan for discharge today she expressed understanding of the risk and benefits of going home and would like to go home today. 2. Chronic kidney disease stage III, chronic normocytic anemia, Mobitz type II AV block, GERD are all chronic medical conditions which complicate her care. Her home medications were continued where appropriate Physical Exam Narrative General: Alert, Oriented x3, Cooperative, No apparent distress HEENT: Atraumatic, PERRLA, EOMI, Normocephalic Oral: Moist Mucosa Neck: Supple, No JVD Lungs: Diminished, Normal air movement, No rhonchi, No wheeze, No rales Cardiovascular: Regular rate, Regular Rhythm, Normal S1, Normal S2, No murmurs Abdomen: Soft, Non Tender, Non-Distended, No Hepato-splenomegaly Extremities: Trace edema, Capillary Refill Less than 3 Seconds Skin: No rashes, No breakdown Musculoskeletal: No Tenderness to Palpation of Joints or Extremities Neurological: Cranial nerves II-XII grossly intact, Motor Exam 5/5 strength throughout, Sensory exam intact to light touch and pain Psych/Mental Status: Normal Affect, Appropriate Weight / BMI Weight Weight: 153 lb 10.595 oz Body Mass Index (BMI) 27.2 ABG / Lab / Microbiology Data 03/17/23 06:35 03/19/23 05:24 Laboratory: Laboratory Results - last 24 hr 03/19/23 05:24: Sodium 141, Potassium 3.7, Chloride 106, Carbon Dioxide 26.0, Anion Gap 9, BUN 29 H, Creatinine 1.27 H, Estim Creat Clear Calc 27.28, Est GFR (MDRD) Af Amer 52 L, Est GFR (MDRD) Non-Af 43 L, BUN/Creatinine Ratio 22.8 H, Glucose 94, Calcium 8.7 D/C Instructions Discharge Diet: Low fat / Low cholesterol and 6 Cup Fluid Restriction Call your doctor if you observe: Fever of 101 or Higher, Shortness of breath, Dizziness, Fainting spells, Swelling in the ankles, Chest pain and Increased palpitations (irregular heartbeat) Meaningful Use Info Meaningful Use Diagnoses (Choose all that apply): None applicable Discharge Plan Admission Admit Date/Time: 03/16/23 17:34 Attending Provider: Nicolás Howell Primary Care Provider: Luiz Avery Consulting Providers: Rashid Hankins; Willa Garcia; eDandre Lozano Instructions Additional Instructions / Restrictions: Your new medication Aldactone/spironolactone can cause an elevation in your potassium so I recommend holding your potassium supplement until you follow-up with your PCP in about a week or so to check your BMP to monitor your electrolytes and kidney function. Discharge Orders/Prescriptions Prescriptions: New spironolactone 25 mg Tablet 25 mg PO DAILY Qty: 30 0RF Continued acyclovir 800 mg tablet 800 mg PO DAILY difluprednate 0.05 % drops 1 drp OPHTHALMIC Q OTHER DAY Patient Comments: INSTILL 1 DROP INTO LEFT EYE THREE TIMES A WEEK timolol maleate 0.5 % drops 1 drp ophthalmic (eye) BID Rx Instructions: left eye Eye Health Plus Lutein 300 mcg-200 mg-27 mg-2 mg tablet 1 tab PO BID Farxiga 10 mg tablet 10 mg PO DAILY Qty: 90 3RF Eliquis 5 mg tablet 5 mg PO BID Qty: 180 3RF atorvastatin 20 mg tablet 20 mg PO QHS Qty: 90 3RF Entresto 24-26 mg tablet 1 tab PO BID Qty: 180 3RF Hold Instructions: hypotension omeprazole 40 MG capsule,delayed release(DR/EC) 40 mg PO DAILY Patient Comments: erythromycin 1 APPLIC ointment 1 applic LEFT EYE QHS Patient Comments: left eye aspirin 81 MG tablet,chewable 81 mg PO DAILY@0800 meclizine 25 MG tablet 25 mg PO TID PRN PRN (Reason: Dizziness) cholecalciferol (vitamin D3) [Vitamin D3] 50 mcg (2,000 unit) tablet 2,000 unit PO DAILY metoprolol succinate 25 mg tablet extended release 24 hr 25 mg PO BID Qty: 180 3RF furosemide 20 mg tablet 40 mg PO DAILY Qty: 90 3RF potassium chloride 20 mEq tablet extended release 20 meq PO DAILY Qty: 90 3RF Referrals / Follow Up: Luiz Avery MD [Primary Care Provider] - Within 1 Week Kinga Eubanks PA [Med Staff - [facility]] - Within 1 Month Disposition Disposition (needs filled in before D/C Order can be placed): Home, Self Care Charges/Coding Visit Charges Inpatient E&M: 14302 Disch Hosp >30min 03/19/23 1642 <Electronically signed by Nicolás Howell MD> Cosigner Signature (if applicable): CC: Dr. Luiz Avery MD; Dr. Nicolás Howell MD~ Signed [facility] Work Phone: 1(344) 257-564111-20-2023 Discharge summary Author Nicolás Howell [facility] March 19, 2023 4:31pm Note Date/Time March 19, 2023 4:17pm [facility] Medical Records Department [address] [place] [id number] Instructions for Home/Discharge Instructions 03/19/23 1616 MR#: [id number] Acct: [id number] Name: DAYANA QUIÑONES Rep #:[id number] : 1940 83 From: Nicolás valdez MD PCP: Dr. Luiz Avery MD Status :ADM IN Discharge Instructions Diet Discharge Diet: Low fat / Low cholesterol Activity Discharge Activity: Return to Normal Activity Dressing / Incision Call your doctor if you observe: Fever of 101 or Higher, Shortness of breath, Dizziness, Fainting spells, Swelling in the ankles, Chest pain and Increased palpitations (irregular heartbeat) Follow Up Care Test Results: Test results from this visit will be discussed in further detail at your follow- up appointment, if applicable. Discharge Plan Admission Admit Date/Time: 03/16/23 17:34 Attending Provider: Nicolás Howell Primary Care Provider: Luiz Avery Consulting Providers: Rashid Hankins; Willa Garcia; Deandre Lozano Instructions Additional Instructions / Restrictions: Your new medication Aldactone/spironolactone can cause an elevation in your potassium so I recommend holding your potassium supplement until you follow-up with your PCP in about a week or so to check your BMP to monitor your electrolytes and kidney function. Discharge Orders/Prescriptions Prescriptions: New spironolactone 25 mg Tablet 25 mg PO DAILY Qty: 30 0RF Continued acyclovir 800 mg tablet 800 mg PO DAILY difluprednate 0.05 % drops 1 drp OPHTHALMIC Q OTHER DAY Patient Comments: INSTILL 1 DROP INTO LEFT EYE THREE TIMES A WEEK timolol maleate 0.5 % drops 1 drp ophthalmic (eye) BID Rx Instructions: left eye Eye Health Plus Lutein 300 mcg-200 mg-27 mg-2 mg tablet 1 tab PO BID Farxiga 10 mg tablet 10 mg PO DAILY Qty: 90 3RF Eliquis 5 mg tablet 5 mg PO BID Qty: 180 3RF atorvastatin 20 mg tablet 20 mg PO QHS Qty: 90 3RF Entresto 24-26 mg tablet 1 tab PO BID Qty: 180 3RF Hold Instructions: hypotension omeprazole 40 MG capsule,delayed release(DR/EC) 40 mg PO DAILY Patient Comments: erythromycin 1 APPLIC ointment 1 applic LEFT EYE QHS Patient Comments: left eye aspirin 81 MG tablet,chewable 81 mg PO DAILY@0800 meclizine 25 MG tablet 25 mg PO TID PRN PRN (Reason: Dizziness) cholecalciferol (vitamin D3) [Vitamin D3] 50 mcg (2,000 unit) tablet 2,000 unit PO DAILY metoprolol succinate 25 mg tablet extended release 24 hr 25 mg PO BID Qty: 180 3RF furosemide 20 mg tablet 40 mg PO DAILY Qty: 90 3RF potassium chloride 20 mEq tablet extended release 20 meq PO DAILY Qty: 90 3RF Referrals / Follow Up: Luiz Avery MD [Primary Care Provider] - Within 1 Week Kinga Eubanks PA [Med Staff - [facility]] - Within 1 Month Disposition Disposition (needs filled in before D/C Order can be placed): Home, Self Care 03/19/23 1631<Electronically signed by Nicolás Howell MD>Nicolás Howell MD CC: Dr. Willa Garcia MD; Dr. Luiz Avery MD; Dr. Deandre Lozano DO; Dr. Rashid Hankins MD ~ Signed [facility] Work Phone: [phone]) 792-372911-20-2023 Progress note Author Kinga Eubanks [facility] March 19, 2023 2:02pm Note Date/Time March 19, 2023 2:02pm [facility] Medical Records Department [address] [place] [address] Progress Note 03/19/23 1400 MR#: [id number] Acct: [id number] Name: DAYANA QUIÑONES Rep #:[id number] : 1940 83 From: Kinga CRAWFORD PCP: Dr. Luiz Avery MD Status :ADM IN Location: [place] [address] Progress Note Discussed echo with pt. Discussed pursuing a life vest, she is agreeable with this. Will fax order forms. Also discussed a referral to [facility]. Since pt recently had cardiac surgery at [facility] fro her valve, will refer to Ep at [facility]. This will be done in our office. 03/19/23 1402 <Electronically signed by Kinga CRAWFORD PA> Kinga CRAWFORD Cosigner Signature (if applicable): CC: ~ Signed [facility] Work Phone: 1(512) 856-945211-19-2023 Progress note Author Rashid Haknins [facility] March 18, 2023 4:10pm Note Date/Time March 18, 2023 4:11pm [facility] Medical Records Department [address] [place] [address] Progress Note - Cardiology 03/18/23 1601 MR#: [id number] Acct: [id number] Name: DAYANA QUIÑONES Rep #:[id number] : 1940 83 From: Rashid Hankins MD PCP: Dr. Luiz Avery MD Status :ADM IN Location: [place] [address] Subjective Subjective No events noted from last night Objective Data Vital Signs: Vital Signs Temp Pulse Resp BP Pulse Ox O2 Del Method O2 Flow Rate 97.5 F L 88 16 99/66 98 Room Air 0 03/18/23 12:04 03/18/23 12:04 03/18/23 12:04 03/18/23 13:19 03/18/23 12:04 03/18/23 12:04 03/18/23 09:24 Oxygen Flow Rate (L/min) [ 0 AMBULATING on Room Air] Oxygen Flow Rate (L/min) [At 0 REST on Room Air] Oxygen Flow Rate (L/min) 2 Oxygen Delivery Method Room Air Weight: 155 lb 6.814 oz Body Mass Index (BMI) 27.5 Intake & Output: Intake and Output for Last 24 Hours 03/16/23 03/17/23 03/18/23 23:59 23:59 23:59 Intake Total 270 / 270 200 / 200 Output Total 400 / 400 Balance -130 / -130 200 / 200 Lab / Micro Data 03/17/23 06:35 03/18/23 05:26 Labs: Laboratory Results - last 24 hr 03/18/23 05:26: Sodium 141, Potassium 3.3 L, Chloride 105, Carbon Dioxide 29.0, Anion Gap 7, BUN 25 H, Creatinine 1.26 H, Estim Creat Clear Calc 27.49, Est GFR (MDRD) Af Amer 52 L, Est GFR (MDRD) Non-Af 43 L, BUN/Creatinine Ratio 19.8, Glucose 89, Calcium 8.0 L Rhythm Strip Rhythm Strip: Paced Rate: 85 Ectopy: None Cardiology Labs/Tests 03/18/23 05:26: Sodium 141, Potassium 3.3 L, Chloride 105, Carbon Dioxide 29.0, Anion Gap 7, BUN 25 H, Creatinine 1.26 H, Est GFR (MDRD) Af Amer 52 L, Est GFR (MDRD) Non-Af 43 L, BUN/Creatinine Ratio 19.8, Glucose 89, Calcium 8.0 L Rhythm: EKG: ECHO: Stress Test: Cardiac Cath: PCI: CT Surgery: Holter monitor: EPS: PPM: CXR: Chest CT Scan: Assessment & Plan Assessment/Plan (1) S/P CABG x 2: (2) S/P mitral valve repair: (3) Fatigue: (4) Ischemic cardiomyopathy: (5) SOB (shortness of breath): (6) 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 Brumfiled/primary mold sander. Today I reviewed all the record of this patient which includes a cardiac telemetry currently as well as current cardiac medication Also discussed with hospitalist the cardiac care plan Patient had a history of ischemic cardiomyopathy Aortocoronary bypass surgery History of prior angioplasty and stent. History of a pacemaker/has Mobitz type II AV block Valvular heart disease status post mitral valve repair which was done in December 14, 2022 Hypertension Hyperlipidemia CKD stage III Chronic normocytic anemia. And GERD The echocardiogram showed severe LV dysfunction Cardiac care plan recommendation 1. On review of telemetry today she had a paced cardiac rhythm also discussed recent cardiac evaluation by echocardiogram Which showed severe LV dysfunction 2. We will continue on GDMT I added Aldactone to the current treatment Patient currently on anticoagulation for paroxysmal A-fib. And continue to monitor electrolytes potassium renal function Not a candidate for Entresto at this point with reduced GFR and creatinine of 1.26 3. Patient to be set up for a LifeVest And follow-up as an outpatient with the cardiology And also discussed upgrading of the pacemaker to ICD BiV pacer which can be set up as an outpatient. From cardiac standpoint if she remains stable clinically she can be discharged home Rashid Hankins MD,[facility] 03/18/23 1610 <Electronically signed by Rashid Hankins MD> Cosigner Signature (if applicable): CC: ~ Signed [facility] Work Phone: 1(725) 201-179711-19-2023 Progress note Author Deandre Lozano [facility] March 18, 2023 1:01pm Note Date/Time March 18, 2023 9:23am [facility] Medical Records Department [address] [place] [address] Progress Note - Hospitalist 03/18/23 0920 MR#: [id number] Acct: [id number] Name: DAYANA QUIÑONES Rep #:[id number] : 1940 83 From: Deandre Lozano DO PCP: Dr. Luiz Avery MD Status :ADM IN Location: [place] [address] Reason for Visit Reason for Visit: Diagnoses Hypokalemia (03/16/23) Essential (primary) hypertension (03/16/23) Atherosclerotic heart disease of morongo coronary artery without angina pectoris (03/16/23) Old myocardial infarction (03/16/23) Unspecified atrial flutter (03/16/23) Chronic diastolic (congestive) heart failure (03/16/23) Heart failure, unspecified (03/16/23) Pulmonary fibrosis, unspecified (03/16/23) Other specified health status (03/16/23) Presence of aortocoronary bypass graft (03/16/23) Presence of coronary angioplasty implant and graft (03/16/23) Other specified postprocedural states (03/16/23) Subjective Subjective Better today. Denies shortness of breath. Objective Data Objective Data Vital Signs: Vital Signs Temp Pulse Resp BP Pulse Ox O2 Del Method O2 Flow Rate 36.5 C L 83 12 112/78 96 Room Air 2 03/18/23 07:53 03/18/23 07:53 03/18/23 07:53 03/18/23 07:53 03/18/23 07:53 03/18/23 08:10 03/17/23 08:12 Oxygen Flow Rate (L/min) 2 Oxygen Delivery Method Room Air Weight: 70.5 kg Body Mass Index (BMI) 27.5 Intake & Output: Intake and Output for Last 24 Hours 03/16/23 03/17/23 03/18/23 23:59 23:59 23:59 Intake Total 270 / 270 Output Total 400 / 400 Balance -130 / -130 Lab / Micro Data 03/17/23 06:35 03/18/23 05:26 Labs: Laboratory Results - last 24 hr 03/18/23 05:26: Sodium 141, Potassium 3.3 L, Chloride 105, Carbon Dioxide 29.0, Anion Gap 7, BUN 25 H, Creatinine 1.26 H, Estim Creat Clear Calc 27.49, Est GFR (MDRD) Af Amer 52 L, Est GFR (MDRD) Non-Af 43 L, BUN/Creatinine Ratio 19.8, Glucose 89, Calcium 8.0 L Radiography Diagnostic Testing: Radiology Impression Echocardiogram 03/16/23 21:50 Interpretation Summary The estimated ejection fraction is 10-15 %. Acute LV systolic dysfunction Worsening of LV systolic function is noted from last echocardiogram in December 20 Mitral annuloplasty ring noted Mild to moderate MR Mild TR Contrast echo using Definity Ordering Physician: Willa Garcia Performed By: Michael Walls RCS Rhythm Strip Rhythm Strip: Paced Rate: 85 Ectopy: None Physical Exam Const alert and no apparent distress Resp normal respiratory effort and no retractions Cardio regular rate, regular rhythm, S1 normal heart sound and S2 normal heart sound GI normal to inspection, nondistended, normoactive bowel sounds, soft to palpation and non-tender Neuro Sensorium / Orientation: awake and alert Psych affect normal Assessment & Plan Assessment/Plan (1) CHF exacerbation: PLAN: acute HFrEF Most recent ECHO noted 11/2022 from [facility] with CABG with EF noted 30%, will repeat. Cardiology consulted, pending. With metoprolol succinate, Chest x-ray shows pulmonary vascular congestion with elevated BNP of over thousand. Weight is at 70 kg which is actually down from where she was back in January where it was a 72.5. Echo shows an EF of 10 to 15%. Mild to moderate mitral regurgitation, mild tricuspid regurgitation. Echo from December 18 at outside hospital showed an EF of 30%. This is worse from then Cardiology following: [place] not to be a candidate for Entresto nor REMI inhibitorsat this time. Spironolactone added by cardiology. Discussed with the patient about the importance of fluid restriction as well as sodium restriction. Patient endorsesthat she was not abiding by a fluid restricted diet beforehand. Given worsening EF, pt will need to have pacemaker changed to AICD. Timing of the procedure per cardiology. I attempted to reach Dr. Hankins about this. (2) Hypokalemia: PLAN: improved. replace PLAN: Plan Chronic conditions: * CAD: s/p PCI NEGRO to the RCA 11/2018 and CABG times with PEDRAZA to LAD and SVG to OM1, will continue asa, eliquis, entresto, metoprolol home regimen. * Hypertension: Continue home regimen including Entresto, metoprolol, IV Lasix, PRN hydralazine. Given low normal BP will prioritize IV diuretics at this time. * Hyperlipidemia: Continue home statin regimen. AM FLP. * PAF: We will continue patient home metoprolol and Eliquis regimen. * Valvular Heart Disease: s/p mitral valve repair 12/14/2022 with 28 ring with left atrial appendage ligation and atrial clip, most recent ECHO from 11/2022 with left third percent with moderate mitral regurgitation, repeat echo requested as noted. * Chronic Kidney Disease Stage III unclear subtype per GFR trending: Admission BUN/Cr 24/1.48, baseline renal function primarily 1.2-1.5, repeat BMP in AM. * Chronic normocytic anemia: Admission hemoglobin 11.6, MCV 92.8, baseline hemoglobin appears more recently 11-12 range, stable, continue to trend. * History of Mobitz type II AV block: Status post pacemaker placement, most recent pacer check noted 03/06/2023 stable. * GERD: We will continue home meds DVT Prophylaxis: We will continue patient home Eliquis regimen. CODE status: Full Charges/Coding Visit Charges Inpatient E&M: 74815 Subs Hosp L2 03/18/23 1247 <Electronically signed by Deandre Lozano DO> Cosigner Signature (if applicable): CC: ~ Signed ADDENDUM by Dr. Deandre Lozano DO on 03/18/[address] Hankins. Patient stay overnight and be evaluated for getting a LifeVest before discharge. She would then follow-up with cardiology to see about having her pacer transition over to an AICD. 03/18/23 1301<Electronically signed by Deandre Lozano DO> Cosigner Signature (if applicable): cc: ~* Signed [facility] Work Phone: 1(534) 433-684911-18-2023 Progress note Author Deandre Lozano [facility] March 17, 2023 2:24pm Note Date/Time March 17, 2023 9:11am [facility] Medical Records Department [address] [place] [address] Progress Note - Hospitalist 03/17/23907 MR#: [id number] Acct: [id number] Name: NURIADAYANATARAS PRUETT Rep #:[id number] : 1940 83 From: Deandre Lozano DO PCP: Dr. Luiz Avery MD Status :ADM IN Location: [place] [address] Subjective Subjective Breathing well. Concerned about fluid around her heart. Objective Data Objective Data Vital Signs: Vital Signs Temp Pulse Resp BP Pulse Ox O2 Del Method O2 Flow Rate 36.5 C L 81 18 103/67 100 Room Air 2 03/17/23 08:00 03/17/23 08:00 03/17/23 08:00 03/17/23 08:00 03/17/23 08:00 03/17/23 08:08 03/17/23 08:00 Oxygen Flow Rate (L/min) 2 Oxygen Delivery Method Room Air Weight: 70 kg Body Mass Index (BMI) 27.3 Intake & Output: Intake and Output for Last 24 Hours 03/15/23 03/16/23 03/17/23 23:59 23:59 23:59 Output Total 400 / 400 Balance -400 / -400 Lab / Micro Data 03/17/23 06:35 03/17/23 06:35 Labs: Laboratory Results - last 24 hr 03/16/23 00:35: Troponin I High Sens 26 03/16/23 13:15: WBC 9.0, RBC 3.73 L, Hgb 11.6 L, Hct 34.6 L, MCV 92.8, MCH 31.1,MCHC 33.5 D, RDW Std Deviation 52.0 H, RDW Coeff of Sakina 15.3 H, Plt Count 182, MPV 11.8, Immature Gran % (Auto) 0.400, Neut % (Auto) 73.8 H, Lymph % (Auto) 17.7 L, O'Brien % (Auto) 6.6, Eos % (Auto) 1.2, Baso % (Auto) 0.3, Absolute Neuts (auto) 6.6, Absolute Lymphs (auto) 1.59, Nucleated RBC % 0, Sodium 140, Potassium 2.8 L, Chloride 103, Carbon Dioxide 26.0, Anion Gap 11, BUN 24 H, Creatinine1.48 H, Estim Creat Clear Calc 23.41, Est GFR (MDRD) Af Amer 43 L, Est GFR (MDRD) Non-Af 36 L, BUN/Creatinine Ratio 16.2, Glucose 109 H, Calcium 8.1 L, B-Natriuretic Peptide 1513.1 H 03/16/23 17:18: Magnesium 2.1 03/17/23 02:33: Troponin I High Sens 25 03/17/23 06:35: WBC 8.6, RBC 3.67 L, Hgb 11.1 L, Hct 35.8 L, MCV 97.5 D, MCH 30.2, MCHC 31.0 L D, RDW Std Deviation 55.3 H, RDW Coeff of Sakina 15.6 H, Plt Count 165, MPV 11.7, Immature Gran % (Auto) 0.200, Neut % (Auto) 72.4 H, Lymph %(Auto) 17.8 L, O'Brien % (Auto) 6.6, Eos % (Auto) 2.4, Baso % (Auto) 0.6, Absolute Neuts (auto) 6.2, Absolute Lymphs (auto) 1.53, Nucleated RBC % 0, Sodium 139, Potassium 3.4 L, Chloride 105, Carbon Dioxide 27.0, Anion Gap 7, BUN 22 H, Creatinine 1.38 H, Estim Creat Clear Calc 25.10, Est GFR (MDRD) Af Amer 47 L, Est GFR (MDRD) Non-Af 39 L, BUN/Creatinine Ratio 15.9, Glucose 102, Calcium 7.9 L, Total Bilirubin 1.10 H, AST 44 H, ALT 44, Alkaline Phosphatase 136 H, Troponin I High Sens 24, Total Protein 6.5, Albumin 3.0 L, Globulin 3.5, Albumin/Globulin Ratio 0.9, Triglycerides 67, Cholesterol 73, LDL Cholesterol 22, VLDL Cholesterol 13, HDL Cholesterol 38 L, TSH 1.06 Radiography Diagnostic Testing: Radiology Impression Chest X-Ray 03/16/23 16:10 IMPRESSION: No interval change. Electronically Signed: Carson Edmonds MD at 16:33 EST , Rhythm Strip Rhythm Strip: Paced Rate: 85 Ectopy: None Physical Exam Const alert and no apparent distress Cardio regular rate, regular rhythm, S1 normal heart sound and S2 normal heart sound GI normal to inspection, nondistended, normoactive bowel sounds, soft to palpation,non-tender and non-distended Extremity normal to inspection Neuro Sensorium / Orientation: awake and alert Assessment & Plan Assessment/Plan (1) CHF exacerbation: PLAN: acute HFrEF Most recent ECHO noted 11/2022 from OSH with CABG with EF noted 30%, will repeat. Cardiology consulted, pending. With metoprolol succinate, Chest x-ray shows pulmonary vascular congestion with elevated BNP of over thousand. Weight is at 70 kg which is actually down from where she was back in January where it was a 72.5. Echo shows an EF of 10 to 15%. Mild to moderate mitral regurgitation, mild tricuspid regurgitation. Echo from December 18 at outside hospital showed an EF of 30%. This is worse from then Cardiology following: [place] not to be a candidate for Entresto nor REMI inhibitorsat this time. (2) Hypokalemia: PLAN: improved. replace PLAN: Plan Chronic conditions: * CAD: s/p PCI NEGRO to the RCA 11/2018 and CABG times with PEDRAZA to LAD a nd SVG to OM1, will continue asa, eliquis, entresto, metoprolol home regimen. * Hypertension: Continue home regimen including Entresto, metoprolol, IV Lasix, PRN hydralazine. Given low normal BP will prioritize IV diuretics at this time. * Hyperlipidemia: Continue home statin regimen. AM FLP. * PAF: We will continue patient home metoprolol and Eliquis regimen. * Valvular Heart Disease: s/p mitral valve repair 12/14/2022 with 28 ring with left atrial appendage ligation and atrial clip, most recent ECHO from 11/2022 with left third percent with moderate mitral regurgitation, repeat echo requested as noted. * Chronic Kidney Disease Stage III unclear subtype per GFR trending: Admission BUN/Cr 24/1.48, baseline renal function primarily 1.2-1.5, repeat BMP in AM. * Chronic normocytic anemia: Admission hemoglobin 11.6, MCV 92.8, baseline hemoglobin appears more recently 11-12 range, stable, continue to trend. * History of Mobitz type II AV block: Status post pacemaker placement, most recent pacer check noted 03/06/2023 stable. * GERD: We will continue home meds DVT Prophylaxis: We will continue patient home Eliquis regimen. CODE status: Full Charges/Coding Visit Charges Inpatient E&M: 27071 Subs Hosp L2 03/17/23 1424 <Electronically signed by Deandre Lozano DO> Cosigner Signature (if applicable): CC: ~ Signed [facility] Work Phone: 1(739) 777-849111-18-2023 Consult note Author Rashid Hankins [facility] March 17, 2023 2:11pm Note Date/Time March 17, 2023 2:11pm [facility] Medical Records Department [address] [place] [address] Consultation - Cardiology 03/17/23 1400 MR#: [id number] Acct: [id number] Name: DAYANA QUIÑONES Rep #:[id number] : 1940 83 From: Rashid Hankins MD PCP: Dr. Luiz Avery MD Status :ADM IN Location: [place] [address] Assessment & Plan Assessment/Plan (1) 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: (2) History of ST elevation myocardial infarction (STEMI): (3) Old anteroseptal myocardial infarction: (4) History of coronary artery stent placement: (5) Essential (primary) hypertension: (6) Chronic diastolic (congestive) heart failure: (7) Pulmonary fibrosis: (8) Paroxysmal atrial flutter: (9) S/P CABG x 2: (10) S/P mitral valve repair: (11) CHF exacerbation: PLAN: Plan 83-year-old patient with extensive cardiac history Patient had a history of STEMI/anteroseptal ME 2018 she had PCI stent of mid LAD as well she had a PCI and stent of the left circumflex Patient in November 2022 underwent carotid bypass surgery x2 with PEDRAZA to LAD and SVG to OM1 As well she has mitral valve repair and left atrial appendage ligation This presentation is symptoms of shortness of breath patient also had a history of paroxysmal A-fib and has a pacemaker. I reviewed all the current evaluation here in this admission including her current lab result cardiac telemetry the EKG she had a paced cardiac rhythm. And her presentation is due to acute on chronic systolic heart failure On repeat echocardiogram she had worsening of her LV systolic function Ejection fraction in the range of 10-15%. Cardiac care plan recommendations; 1. I noted she had elevated creatinine 1.38 She is not a candidate for Entresto or REMI inhibitor at this point We will continue on beta-amaury for rate control diuretic to monitor electrolytes and renal function. Patient will follow-up with her primary mold sander Dr. Brumfield With the plan of upgrading her pacemaker to BiV ICD And maximizing her medical therapy/GDMT Rashid Hankins MD,[facility] HPI Consult Data Date of Consult: 03/17/23 HPI Narrative Reason for Consultation: CAD status post CABG HPI Narrative: DAYANA QUIÑONES, is a 83 F who presents REPLACED BY [facility] Medical History (Updated 03/17/23 @ 09:[address] Deandre Lozano, DO) Acute kidney injury Anxiety 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 Chronic anemia Essential (primary) hypertension Fractured sternum HFrEF (heart failure with reduced ejection fraction) History of ST elevation myocardial infarction (STEMI) (11/16/18) History of vertigo Ischemic cardiomyopathy Mobitz (type) II atrioventricular block 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) Home Medications aspirin 81 mg chewable tablet 81 mg PO DAILY@0800 circulation 12/08/16 [History Last Taken 11/22/22] erythromycin 5 mg/gram (0.5 %) eye ointment 1 applic LEFT EYE Q eye health 12/08/16 [History Last Taken 07/31/18] omeprazole 40 mg capsule,delayed release 40 mg PO DAILY acid reflux 12/08/16 [History Last Taken 11/22/22] meclizine 25 mg tablet 25 mg PO TID PRN PRN Dizziness 08/01/18 [History Last Taken Unknown] acyclovir 800 mg tablet 800 mg PO DAILY 09/11/19 [History Last Taken 11/22/22] difluprednate 0.05 % eye drops 1 drp ophthalmic (eye) Q OTHER DAY 05/13/20 [History Last Taken Unknown] timolol maleate 0.5 % eye drops 1 drp ophthalmic (eye) BID 02/14/22 [History Last Taken Unknown] vit A 300 mcg-C 200 mg-E 27 mg-lutein 2 mg and minerals tablet (Eye Health Plus Lutein) 1 tab PO BID 02/14/22 [History Last Taken Unknown] dapagliflozin propanediol 10 mg tablet ([facility]) 10 mg PO DAILY #90 tabs 09/19/22 [Rx Last Taken 11/22/22] apixaban 5 mg tablet (Eliquis) 5 mg PO BID #180 tabs 02/09/23 [Rx Last Taken Unknown] atorvastatin 20 mg tablet 20 mg PO QHS #90 tabs 02/09/23 [Rx Last Taken Unknown] sacubitril 24 mg-valsartan 26 mg tablet (Entresto) 1 tab PO BID #180 tabs 02/09/23 [Rx Last Taken Unknown] metoprolol succinate 25 mg tablet,extended release 24 hr 25 mg PO BID This is a dose increase #180 tabs 02/19/23 [Rx Last Taken Unknown] furosemide 20 mg tablet 40 mg (2 x 20 mg) PO DAILY #90 tabs 03/06/23 [Rx Last Taken Unknown] potassium chloride 20 mEq tablet,extended release 20 meq PO DAILY #90 tabs 03/14/23 [Rx Last Taken Unknown] cholecalciferol (vitamin D3) 50 mcg (2,000 unit) tablet (Vitamin D3) 2,000 unit PO DAILY 03/16/23 [History Last Taken Unknown] Allergy/AdvReac Type Severity Reaction Status Date / Time morphine Allergy Vomiting Verified 03/16/23 12:43 Family History (Updated 03/16/23 @ 20:[address] Willa Garcia MD) Father Heart disease Mother Heart disease Chronic anemia Iron deficiency Surgical History History of coronary artery stent placement (12/19/18) History of left heart catheterization (06/21/20) Presence of permanent cardiac pacemaker (08/02/18) S/P CABG x 2 S/P mitral valve repair Social History (Updated 03/16/23 @ 20:[address] Willa Garcia MD) household members: none Smoking Status: Former smoker how long ago did patient quit smoking: Quit in 1967. alcohol intake: never substance use type: does not use caffeine: Yes Type: coffee Number of servings: 2 Physical Exam Cardio Cardio Narrative: Seen and examined at bedside along with the nursing staff Sitting out in a chair Cardiac exam S1-S2 is regular Chest exam mildly diminished air entry bilateral. Examination lower extremity bilateral lower extremity edema Risk Stratification Risk Stratification Applicable: No Objective Data Vital Signs: Vital Signs Temp Pulse Resp BP Pulse Ox O2 Del Method O2 Flow Rate 97.1 F L 92 18 98/65 99 Room Air 2 03/17/23 13:43 03/17/23 13:43 03/17/23 13:43 03/17/23 13:43 03/17/23 13:43 03/17/23 13:46 03/17/23 08:12 Oxygen Flow Rate (L/min) 2 Oxygen Delivery Method Room Air Weight: 154 lb 5.177 oz Body Mass Index (BMI) 27.3 Intake & Output: Intake and Output for Last 24 Hours 03/15/23 03/16/23 03/17/23 23:59 23:59 23:59 Intake Total 240 / 240 Output Total 400 / 400 Balance -160 / -160 Lab / Micro Data 03/17/23 06:35 03/17/23 06:35 Labs: Laboratory Results - last 24 hr 03/16/23 00:35: Troponin I High Sens 26 03/16/23 13:15: WBC 9.0, RBC 3.73 L, Hgb 11.6 L, Hct 34.6 L, MCV 92.8, MCH 31.1,MCHC 33.5 D, RDW Std Deviation 52.0 H, RDW Coeff of Sakina 15.3 H, Plt Count 182, MPV 11.8, Immature Gran % (Auto) 0.400, Neut % (Auto) 73.8 H, Lymph % (Auto) 17.7 L, O'Brien % (Auto) 6.6, Eos % (Auto) 1.2, Baso % (Auto) 0.3, Absolute Neuts (auto) 6.6, Absolute Lymphs (auto) 1.59, Nucleated RBC % 0, Sodium 140, Potassium 2.8 L, Chloride 103, Carbon Dioxide 26.0, Anion Gap 11, BUN 24 H, Creatinine 1.48 H, Estim Creat Clear Calc 23.41, Est GFR (MDRD) Af Amer 43 L, EstGFR (MDRD) Non-Af 36 L, BUN/Creatinine Ratio 16.2, Glucose 109 H, Calcium 8.1 L,B-Natriuretic Peptide 1513.1 H 03/16/23 17:18: Magnesium 2.1 03/17/23 02:33: Troponin I High Sens 25 03/17/23 06:35: WBC 8.6, RBC 3.67 L, Hgb 11.1 L, Hct 35.8 L, MCV 97.5 D, MCH 30.2, MCHC 31.0 L D, RDW Std Deviation 55.3 H, RDW Coeff of Sakina 15.6 H, Plt Count 165, MPV 11.7, Immature Gran % (Auto) 0.200, Neut % (Auto) 72.4 H, Lymph %(Auto) 17.8 L, O'Brien % (Auto) 6.6, Eos % (Auto) 2.4, Baso % (Auto) 0.6, Absolute Neuts (auto) 6.2, Absolute Lymphs (auto) 1.53, Nucleated RBC % 0, Sodium 139, Potassium 3.4 L, Chloride 105, Carbon Dioxide 27.0, Anion Gap 7, BUN 22 H, Creatinine 1.38 H, Estim Creat Clear Calc 25.10, Est GFR (MDRD) Af Amer 47 L, Est GFR (MDRD) Non-Af 39 L, BUN/Creatinine Ratio 15.9, Glucose 102, Calcium 7.9 L, Total Bilirubin 1.10 H, AST 44 H, ALT 44, Alkaline Phosphatase 136 H, Troponin I High Sens 24, Total Protein 6.5, Albumin 3.0 L, Globulin 3.5, Albumin/Globulin Ratio 0.9, Triglycerides 67, Cholesterol 73, LDL Cholesterol 22, VLDL Cholesterol 13, HDL Cholesterol 38 L, TSH 1.06 Rhythm Strip Rhythm Strip: Paced Rate: 85 Ectopy: None Cardiology Labs/Tests 03/16/23 13:15: WBC 9.0, RBC 3.73 L, Hgb 11.6 L, Hct 34.6 L, MCV 92.8, MCH 31.1,MCHC 33.5 D, Plt Count 182, MPV 11.8, Immature Gran % (Auto) 0.400, Neut % (Auto) 73.8 H, Lymph % (Auto) 17.7 L, O'Brien % (Auto) 6.6, Eos % (Auto) 1.2, Baso % (Auto) 0.3, Absolute Neuts (auto) 6.6, Nucleated RBC % 0, Sodium 140, Potassium 2.8 L, Chloride 103, Carbon Dioxide 26.0, Anion Gap 11, BUN 24 H, Creatinine 1.48 H, Est GFR (MDRD) Af Amer 43 L, Est GFR (MDRD) Non-Af 36 L, BUN/Creatinine Ratio 16.2, Glucose 109 H, Calcium 8.1 L, B-Natriuretic Peptide 1513.1 H 03/16/23 17:18: Magnesium 2.1 03/17/23 06:35: WBC 8.6, RBC 3.67 L, Hgb 11.1 L, Hct 35.8 L, MCV 97.5 D, MCH 30.2, MCHC 31.0 L D, Plt Count 165, MPV 11.7, Immature Gran % (Auto) 0.200, Neut% (Auto) 72.4 H, Lymph % (Auto) 17.8 L, O'Brien % (Auto) 6.6, Eos % (Auto) 2.4, Baso % (Auto) 0.6, Absolute Neuts (auto) 6.2, Nucleated RBC % 0, Sodium 139, Potassium 3.4 L, Chloride 105, Carbon Dioxide 27.0, Anion Gap 7, BUN 22 H, Creatinine 1.38 H, Est GFR (MDRD) Af Amer 47 L, Est GFR (MDRD) Non-Af 39 L, BUN/Creatinine Ratio 15.9, Glucose 102, Calcium 7.9 L, Total Bilirubin 1.10 H, Triglycerides 67, Cholesterol 73, LDL Cholesterol 22, VLDL Cholesterol 13, HDL Cholesterol 38 L Rhythm: EKG: ECHO: Stress Test: Cardiac Cath: PCI: CT Surgery: Holter monitor: EPS: PPM: CXR: Chest CT Scan: Radiography Diagnostic Testing: Radiology Impression Chest X-Ray 03/16/23 16:10 IMPRESSION: No interval change. Electronically Signed: Carson Edmonds MD at 16:33 EST , Echocardiogram 03/16/23 21:50 Interpretation Summary The estimated ejection fraction is 10-15 %. Acute LV systolic dysfunction Worsening of LV systolic function is noted from last echocardiogram in December 20 Mitral annuloplasty ring noted Mild to moderate MR Mild TR Contrast echo using Definity Ordering Physician: Willa Garcia Performed By: Michael Walls RCS 03/17/23 1411 <Electronically signed by Rashid Hankins MD> Cosigner Signature (if applicable): CC: Dr. Willa Garcia MD; Dr. Luiz Avery MD; Dr. Rashid Hankins MD~ Signed [facility] Work Phone: 1(186) 189-574711-17-2023 History and physical note Author [facility] March 16, 2023 9:01pm Note Date/Time March 16, 2023 8:48pm [facility] Medical Records Department [address] [place] [id number] H&P Exam - Hospitalist 03/16/23 1734 MR#: [id number] Acct: [id number] Name: DAYANA QUIÑONES Rep #:[id number] : 1940 83 From: Willa Garcia MD PCP: Dr. Luiz Avery MD Status :ADM IN Location: [place] [address] HPI - General General Date of Admission: 03/16/23 Date of Service: 03/16/23 Chief Complaint: Increased BL LE swellling, orthopnea, dyspnea worse with exertion. HPI Narrative The patient is an 83 y/o F w/ PMHx: HTN, HLD, PAF, Chronic HFrEF/Ischemic cardiomyopathy (EF 11/2022 30%), Hx mobitz type II block s/p pacemaker placement,Valvular heart disease s/p MV repair, CAD s/p PCI and recent CABG x 2 11/2022, Chronic normocytic anemia, CKD stage III unclear subtype per GFR trending, Pulmonary Fibrosis who presents to the [facility] ED on 03/16/23 with history of ongoing persistent dyspnea worse over the last week with ED presentation 2 days prior to current presentation with increase of her Lasix, doubling however she still remains significantly dyspneic worse with exertion with orthopnea and mildincrease swelling to her legs although no pitting edema prompting referral to the ED for evaluation. Patient denies any associated chest discomfort with her current presentation. In the ED included T97.8, heart rate 98, BP 109/69, respiratory rate 20, 99% on room air, CBC with WC 9.0, hemoglobin 11.6, MCV 92.8, platelet 192 without marked shift, BMP with potassium 2.8, BUN/creatinine 24/1.48, glucose 109, BNP one 513.1, chest x- ray with chronic fibrotic changes with no interval change from previous x-ray, EKG paced. In the ED patient administered Lasix 60 mg IV x1 as well as potassium chloride 40 mill equivalent p.o. x1. REPLACED BY [facility] Medical History (Updated 03/16/23 @ 20:[address] Willa Garcia MD) Acute kidney injury Anxiety 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 Chronic anemia Essential (primary) hypertension Fractured sternum HFrEF (heart failure with reduced ejection fraction) History of ST elevation myocardial infarction (STEMI) (11/16/18) History of vertigo Ischemic cardiomyopathy Mobitz (type) II atrioventricular block 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) Home Medications aspirin 81 mg chewable tablet 81 mg PO DAILY@0800 circulation 12/08/16 [History Last Taken 11/22/22] erythromycin 5 mg/gram (0.5 %) eye ointment 1 applic LEFT EYE Q eye health 12/08/16 [History Last Taken 07/31/18] omeprazole 40 mg capsule,delayed release 40 mg PO DAILY acid reflux 12/08/16 [History Last Taken 11/22/22] meclizine 25 mg tablet 25 mg PO TID PRN PRN Dizziness 08/01/18 [History Last Taken Unknown] acyclovir 800 mg tablet 800 mg PO DAILY 09/11/19 [History Last Taken 11/22/22] difluprednate 0.05 % eye drops 1 drp ophthalmic (eye) Q OTHER DAY 05/13/20 [History Last Taken Unknown] timolol maleate 0.5 % eye drops 1 drp ophthalmic (eye) BID 02/14/22 [History Last Taken Unknown] vit A 300 mcg-C 200 mg-E 27 mg-lutein 2 mg and minerals tablet (Eye [facility] Plus Lutein) 1 tab PO BID 02/14/22 [History Last Taken Unknown] dapagliflozin propanediol 10 mg tablet (Farxiga) 10 mg PO DAILY #90 tabs 09/19/22 [Rx Last Taken 11/22/22] apixaban 5 mg tablet (Eliquis) 5 mg PO BID #180 tabs 02/09/23 [Rx Last Taken Unknown] atorvastatin 20 mg tablet 20 mg PO QHS #90 tabs 02/09/23 [Rx Last Taken Unknown] sacubitril 24 mg-valsartan 26 mg tablet (Entresto) 1 tab PO BID #180 tabs 02/09/23 [Rx Last Taken Unknown] metoprolol succinate 25 mg tablet,extended release 24 hr 25 mg PO BID This is a dose increase #180 tabs 02/19/23 [Rx Last Taken Unknown] furosemide 20 mg tablet 40 mg (2 x 20 mg) PO DAILY #90 tabs 03/06/23 [Rx Last Taken Unknown] potassium chloride 20 mEq tablet,extended release 20 meq PO DAILY #90 tabs 03/14/23 [Rx Last Taken Unknown] cholecalciferol (vitamin D3) 50 mcg (2,000 unit) tablet (Vitamin D3) 2,000 unit PO DAILY 03/16/23 [History Last Taken Unknown] Allergy/AdvReac Type Severity Reaction Status Date / Time morphine Allergy Vomiting Verified 03/16/23 12:43 Family History (Updated 03/16/23 @ 20:[address] Willa Garcia MD) Father Heart disease Mother Heart disease Chronic anemia Iron deficiency Surgical History History of coronary artery stent placement (12/19/18) History of left heart catheterization (06/21/20) Presence of permanent cardiac pacemaker (08/02/18) S/P CABG x 2 S/P mitral valve repair Social History (Updated 03/16/23 @ 20:[address] Willa Garcia MD) household members: none Smoking Status: Former smoker how long ago did patient quit smoking: Quit in 1967. alcohol intake: never substance use type: does not use caffeine: Yes Type: coffee Number of servings: 2 ROS ROS Narrative Admission Review of Systems: CONSTITUTIONAL: No weight loss, fever, chills, + weakness or fatigue. HEENT: Eyes: No visual loss, blurred vision, double vision or yellow sclerae. Ears, Nose, Throat: No hearing loss, sneezing, congestion, runny nose or sore throat. SKIN: No rash or itching, lesions, wounds. CARDIOVASCULAR: + Mild edema, peripherally, orthopnea. No chest pain, chest pressure or chest discomfort, palpitations, syncopal events. RESPIRATORY: + Shortness of breath. No cough or sputum, wheezing, hemoptysis. GASTROINTESTINAL: No anorexia, nausea, vomiting or diarrhea, abdominal pain, melena, BRBPR. GENITOURINARY: No dysuria, frequency, urgency or retention. NEUROLOGICAL: No headache, dizziness, syncope, paralysis, ataxia, numbness or tingling in the extremities, focal weakness, change in bowel or bladder control,seizure. MUSCULOSKELETAL: + muscle, back pain, joint pain or stiffness. HEMATOLOGIC: + anemia, easy bleeding/bruising. LYMPHATICS: No enlarged nodes. No history of splenectomy. PSYCHIATRIC: No history of depression or anxiety. ENDOCRINOLOGIC: No reports of sweating, cold or heat intolerance. No polyuria orpolydipsia. ALLERGIES: No history of asthma, hives, eczema or rhinitis. Vital Signs Vital Signs Vital Signs: 03/16/23 12:43 03/16/23 13:18 03/16/23 16:40 Temperature 97.8 F Temperature Source Temporal Pulse Rate 98 90 Respiratory Rate 20 H 18 Respiratory Effort Normal Respiratory Depth Normal Respiratory Pattern Normal Blood Pressure 109/69 110/70 Blood Pressure Mean 82 83 Pulse Ox 99 95 Oxygen Delivery Method Room Air Room Air Room Air Weight Weight: 153 lb 6.4 oz Body Mass Index (BMI) 27.1 Physical Exam Narrative Physical Examination: General: Awake, alert, oriented x 3 and cooperative, seated upright in the ED bed, fatigued appearing. Skin: Normal color, normal turgor, no icterus, no cyanosis except occasional staged ecchymoses. HEENT: AT/NC, EOMI, PERRLA, MMM, no carotid bruits, no severe markedly elevated JVD noted. Lungs: Initial, bases, appropriate effort, mild crackles, very minor rales at the bases, no rhonchi or wheezing. This is not Heart: Regular rate/rhythm/paced; no gallop, rub audible, + SM. Abdomen: Soft, overweight, NTTP, ND, normal BS, no HSM. Extremities: No cyanosis, no clubbing, mild not markedly pitting pedal to distalshin edema. Neurological: Patient awake, alert, oriented as noted, cognitive function intact; pupils equally reactive to light and accommodation, cranial nerves II-XII grossly normal, moving all 4 extremities, no focal deficits, strength moderatelyglobally decreased secondary to acute presentation and underlying comorbidities. Psychiatric: Affect appears fatigued otherwise normal, no acute evidence of depressive or anxiety feelings. Results Lab / Micro Data 03/16/23 13:15 03/16/23 13:15 Labs: Laboratory Results - last 24 hr 03/16/23 13:15: WBC 9.0, RBC 3.73 L, Hgb 11.6 L, Hct 34.6 L, MCV 92.8, MCH 31.1,MCHC 33.5 D, RDW Std Deviation 52.0 H, RDW Coeff of Sakina 15.3 H, Plt Count 182, MPV 11.8, Immature Gran % (Auto) 0.400, Neut % (Auto) 73.8 H, Lymph % (Auto) 17.7 L, O'Brien % (Auto) 6.6, Eos % (Auto) 1.2, Baso % (Auto) 0.3, Absolute Neuts (auto) 6.6, Absolute Lymphs (auto) 1.59, Nucleated RBC % 0, Sodium 140, Potassium 2.8 L, Chloride 103, Carbon Dioxide 26.0, Anion Gap 11, BUN 24 H, Creatinine 1.48 H, Estim Creat Clear Calc 23.41, Est GFR (MDRD) Af Amer 43 L, Est GFR (MDRD) Non-Af 36 L, BUN/Creatinine Ratio 16.2, Glucose 109 H, Calcium 8.1 L, B-Natriuretic Peptide 1513.1 H Imagaing Radiology Impression Chest X-Ray 03/16/23 16:10 IMPRESSION: No interval change. Electronically Signed: Carson Edmonds MD at 16:33 EST , Assessment & Plan Assessment/Plan (1) CHF exacerbation: (2) Failure of outpatient treatment: PLAN: Plan The patient is an 83 y/o F w/ PMHx: HTN, HLD, PAF, Chronic HFrEF/Ischemic cardiomyopathy (EF 11/2022 30%), Hx mobitz type II block s/p pacemaker placement, Valvular heart disease s/p MV repair, CAD s/p PCI and recent CABG x 2 11/2022, Chronic normocytic anemia, CKD stage III unclear subtype per GFR trending, Pulmonary Fibrosis who presents to the [facility] ED on 03/16/23 with history of ongoing persistent dyspnea worse over the last week with ED presentation 2 days prior to current presentation with increase of her Lasix, doubling however she still remains significantly dyspneic worse with exertion with orthopnea and mildincrease swelling to her legs although no pitting edema prompting referral to the ED for evaluation. #1. Acute Decompensated HFrEF Exacerbation/ischemic Cardiomyopathy: Patient administered IV lasix in the ED, will admit to PCU, maintain on cardiac telemetry, obtain cardiac enzyme series, obtain serial EKGs, continue IV lasix diuresis as BP allows given low normal range, monitor I/Os, maintain on intake restriction, continue medical therapy, obtain TSH and magnesium level. Most recent ECHO noted 11/2022 from OSH with CABG with EF noted 30%, will repeat. Cardiology consulted, pending. Place BL LE remi wraps although edema not severe. #2. Hypokalemia: Admission K+ 2.8, magnesium level requested, supplementation given, repeat level in AM. #3. CAD: s/p PCI NEGRO to the RCA 11/2018 and CABG times with PEDRAZA to LADand SVG to OM1, will continue asa, eliquis, entresto, metoprolol home regimen. #4. Hypertension: Continue home regimen including Entresto, metoprolol, IV Lasix, PRN hydralazine. Given low normal BP will prioritize IV diuretics at this time. #5. Hyperlipidemia: Continue home statin regimen. AM FLP. #6. PAF: We will continue patient home metoprolol and Eliquis regimen. #7. Valvular Heart Disease: s/p mitral valve repair 12/14/2022 with 28 ring withleft atrial appendage ligation and atrial clip, most recent ECHO from 11/2022 with left third percent with moderate mitral regurgitation, repeat echo requested as noted. #8. Chronic Kidney Disease Stage III unclear subtype per GFR trending: Admission BUN/Cr 24/1.48, baseline renal function primarily 1.2-1.5, repeat BMP in AM. #9. Chronic normocytic anemia: Admission hemoglobin 11.6, MCV 92.8, baseline hemoglobin appears more recently 11-12 range, stable, continue to trend. #10. History of Mobitz type II AV block: Status post pacemaker placement, most recent pacer check noted 03/06/2023 stable. #11. GERD: We will continue home #12. DVT Prophylaxis: We will continue patient home Eliquis regimen. #13. CODE status: Patient ELSIE is her daughter's (2) and living will is currently in place. Discussed CODE status at length including difference betweenFULL code, DNR-CCA and DNR-CC status. Following discussions about the differences in these status, requested Full Code status. Advanced Care Planning Face to Face Time: 16 minutes. Charges/Coding Visit Charges Inpatient E&M: 67425 Init Hosp L3 Procedures Hospitalists Procedures: 27133 Advncd Care Plan 30 Min 03/16/232100 <Electronically signed by Willa Garcia MD> Cosigner Signature (if applicable): CC: Dr. Willa Garcia MD; Dr. Luiz Avery MD~ Signed [facility] Work Phone: [phone]) 556-808111-17-2023 Discharge summary Author Sherry [facility] March 16, 2023 5:45pm Note Date/Time March 16, 2023 5:33pm [facility] Medical Records Department [address] [place] [address] Emergency Department Summary 03/16/23 MR#: [id number] Acct: [id number] Name: DAYANA QUIÑONES Rep #:[id number] : 1940 83 From: Sherry White PCP: Dr. Luiz Avery MD Status :REG ER Location: ED HPI History of Present Illness Chief Complaint: Shortness of Breath Informant: patient Narrative Narrative: Patient is an 83-year-old female with history of pacemaker with Mobitz type II block, coronary artery disease status post CABG performed at [facility] 2 months ago, ischemic cardiomyopathy, atrial fibrillation (on Eliquis) presenting with worsening shortness of breath and fatigue. Patient was seen andevaluated by myself in the ER 2 days ago for similar symptoms of worsening dyspnea on exertion and now orthopnea/paroxysmal nocturnal dyspnea. I had offered admission 2 days ago but patient wanted to try doubling up her Lasix (80mg total daily) for the past 2 days but nots she was more symptomatic last nightand woke up short of breath and even after moving to a recliner was still short of breath. She saw her PCP today and when asked if she felt safe going home she immediately said no but states that actually she does feel safe going home but was very worried about having another night like last night with her breathing. No other complaints at this time. 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 Chronic diastolic (congestive) heart failure Essential (primary) hypertension Fractured sternum History of ST elevation myocardial infarction (STEMI) (11/16/18) History of vertigo Ischemic cardiomyopathy Mobitz (type) II atrioventricular block 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) Home Medications aspirin 81 mg chewable tablet 81 mg PO DAILY@0800 circulation 12/08/16 [History Last Taken 11/22/22] erythromycin 5 mg/gram (0.5 %) eye ointment 1 applic LEFT EYE [facility] eye health 12/08/16 [History Last Taken 07/31/18] omeprazole 40 mg capsule,delayed release 40 mg PO DAILY acid reflux 12/08/16 [History Last Taken 11/22/22] meclizine 25 mg tablet 25 mg PO TID PRN PRN Dizziness 08/01/18 [History Last Taken Unknown] acyclovir 800 mg tablet 800 mg PO DAILY 09/11/19 [History Last Taken 11/22/22] difluprednate 0.05 % eye drops 1 drp ophthalmic (eye) Q OTHER DAY 05/13/20 [History Last Taken Unknown] timolol maleate 0.5 % eye drops 1 drp ophthalmic (eye) BID 02/14/22 [History Last Taken Unknown] vit A 300 mcg-C 200 mg-E 27 mg-lutein 2 mg and minerals tablet (Eye Health Plus Lutein) 1 tab PO BID 02/14/22 [History Last Taken Unknown] dapagliflozin propanediol 10 mg tablet (Farxiga) 10 mg PO DAILY #90 tabs 09/19/22 [Rx Last Taken 11/22/22] apixaban 5 mg tablet (Eliquis) 5 mg PO BID #180 tabs 02/09/23 [Rx Last Taken Unknown] atorvastatin 20 mg tablet 20 mg PO QHS #90 tabs 02/09/23 [Rx Last Taken Unknown] sacubitril 24 mg-valsartan 26 mg tablet (Entresto) 1 tab PO BID #180 tabs 02/09/23 [Rx Last Taken Unknown] metoprolol succinate 25 mg tablet,extended release 24 hr 25 mg PO BID This is a dose increase #180 tabs 02/19/23 [Rx Last Taken Unknown] furosemide 20 mg tablet 40 mg (2 x 20 mg) PO DAILY #90 tabs 03/06/23 [Rx Last Taken Unknown] potassium chloride 20 mEq tablet,extended release 20 meq PO DAILY #90 tabs 03/14/23 [Rx Last Taken Unknown] cholecalciferol (vitamin D3) 50 mcg (2,000 unit) tablet (Vitamin D3) 2,000 unit PO DAILY 03/16/23 [History Last Taken Unknown] Allergy/AdvReac Type Severity Reaction Status Date / Time morphine Allergy Vomiting Verified 03/16/23 12:43 Family History Father Heart disease Surgical History History of coronary artery stent placement (12/19/18) History of left heart catheterization (06/21/20) Presence of permanent cardiac pacemaker (08/02/18) S/P CABG x 2 S/P mitral valve repair Social History Smoking Status: Former smoker how long ago did patient quit smokin alcohol intake: never substance use type: does not use caffeine: Yes Type: coffee Number of servings: 2 ROS ROS ED Constitutional Constitutional ED: Denies chills or fever(s) Cardiovascular Cardiovascular: Reports orthopnea and paroxysmal nocturnal dyspnea; Denies chestpain or palpitations Respiratory/Chest Respiratory/Chest: Reports cough, dyspnea on exertion, orthopnea and paroxysmal nocturnal dyspnea Gastrointestinal Gastrointestinal: Denies abdominal pain, nausea or vomiting Musculoskeletal Musculoskeletal: Denies arthralgias or myalgias Integumentary Denies rash Neurologic Neurologic: Denies headache(s) Hematologic/Lymphatic Hematologic/Lymphatic: Reports easy bleeding and easy bruising EXAM Physical Exam Const Vital Signs: 03/16/23 12:43 03/16/23 13:18 03/16/23 16:40 Temperature 97.8 F Temperature Source Temporal Pulse Rate 98 90 Respiratory Rate 20 H 18 Respiratory Effort Normal Respiratory Depth Normal Respiratory Pattern Normal Blood Pressure 109/69 110/70 Blood Pressure Mean 82 83 Pulse Ox 99 95 Oxygen Delivery Method Room Air Room Air Room Air Positive well nourished and well developed General Appearance ED: well developed and NAD; Negative for pallor HEENT Reports moist mucous membranes Eyes PERRL and EOMs intact bilaterally Neck supple and no JVD Resp Resp Narrative: Diminished breath sounds and crackles most pronounced at the right base Cardio regular rate Rhythm: abnormal rhythm GI non-tender and non-distended Extremity Extremity Narrative: 1+ pretibial edema General Extremety ED: Negative for tenderness Neuro oriented x3 Sensorium / Orientation: alert Motor Exam: Negative for general weakness Psych mental status grossly normal Skin no wounds General Skin Exam: Negative for jaundice or pallor MDM MDM MDM Narrative Medical decision making narrative: Patient is evaluated for worsening shortness of breath despite being on a doubledose of Lasix for 2 days now. She appears nontoxic in no acute distress. Vitalsigns are normal. Blood pressure is a little on the low side but this appears to be baseline for patient. Differential includes CHF exacerbation, exacerbation of pulmonary fibrosis, ACS,TRINI, pneumonia and failure of outpatient treatment While patient not requiring supplemental oxygen her BNP is up trending. It is from 14 100-15 100 despite increasing her Lasix. This is concerning for failureof outpatient treatment given that she is increased her Lasix is having worsening symptoms. Her creatinine is not significantly changed from 2 days agoat 1.48 (mildly improved). CBC otherwise unremarkable. She does not have a fever leukocytosis and low suspicion for pneumonia or acute infiltrate. I do not think she requires antibiotics. Hemoglobin stable from her baseline is at 11.6. She is not having any chest pain and I do not think she requires a troponin. She does have hypokalemia with a potassium of 2.8. We will add on magnesium andgive oral potassium replacement in the ER. EKG does show ventricular paced rhythm. Discussed with patient that I am worried that she is worsening despite optimizing outpatient treatment and would benefit from admission for IV Lasix and cardiac consult. She is agreeable. Is given 60 mg IV Lasix in the ER and case discussed with hospitalist, Dr. Garcia. History & Record Review Additional record(s) reviewed:: Prior ED visit and Prior labs Lab Data Attestation: I reviewed the patient's lab results. Labs: Laboratory Results - last 24 hr 03/16/23 13:15 WBC 9.0 RBC 3.73 L Hgb 11.6 L Hct 34.6 L MCV 92.8 MCH 31.1 MCHC 33.5 D RDW Std Deviation 52.0 H RDW Coeff of Sakina 15.3 H Plt Count 182 MPV 11.8 Immature Gran % (Auto) 0.400 Neut % (Auto) 73.8 H Lymph % (Auto) 17.7 L O'Brien % (Auto) 6.6 Eos % (Auto) 1.2 Baso % (Auto) 0.3 Absolute Neuts (auto) 6.6 Absolute Lymphs (auto) 1.59 Nucleated RBC % 0 Sodium 140 Potassium 2.8 L Chloride 103 Carbon Dioxide 26.0 Anion Gap 11 BUN 24 H Creatinine 1.48 H Estim Creat Clear Calc 23.41 Est GFR (MDRD) Af Amer 43 L Est GFR (MDRD) Non-Af 36 L BUN/Creatinine Ratio 16.2 Glucose 109 H Calcium 8.1 L B-Natriuretic Peptide 1513.1 H Radiography Chest X-Ray - ED: 2 View, Read by ED Physician, Read by Radiologist and Chronic Changes Diagnostic Testing: Clinical Impression(s) from Imaging Studies Chest X-Ray 03/16/23 16:10 IMPRESSION: No interval change. Electronically Signed: Carson Edmonds MD at 16:33 EST , Rhythm Strip Rhythm Strip: Paced Rate: 85 Ectopy: None EKG Initial EKG: Attestation: I personally reviewed and interpreted this EKG as follows: Interpretation: Paced Comments: Ventricular paced rhythm at a rate of 85 beats per minutes No significant change compared to prior EKGs Differential Diagnosis Chest pain/SOB: pulmonary embolism Reason(s) PE less likely: Positive for patient taking oral anticoagulants and pneumonia Reason(s) pneumonia less likely: Positive for no infiltrate on CXR, no elevation in WBC count, no noted fever andsymptoms not consistent with acute infection Management Discussion w/another healthcare provider: Hospitalist Discharge Plan Triage Chief Complaint: Shortness of Breath ED Provider: Sherry Matta Dx/Rx/DC Orders Clinical Impression: WIN (dyspnea on exertion), Anticoagulant long-term use, CHF exacerbation, Failure of outpatient treatment Prescriptions: No Action acyclovir 800 mg tablet 800 mg PO DAILY difluprednate 0.05 % drops 1 drp OPHTHALMIC Q OTHER DAY Patient Comments: INSTILL 1 DROP INTO LEFT EYE THREE TIMES A WEEK timolol maleate 0.5 % drops 1 drp ophthalmic (eye) BID Rx Instructions: left eye [facility] Plus Lutein 300 mcg-200 mg-27 mg-2 mg tablet 1 tab PO BID Farxiga 10 mg tablet 10 mg PO DAILY Qty: 90 3RF Eliquis 5 mg tablet 5 mg PO BID Qty: 180 3RF atorvastatin 20 mg tablet 20 mg PO QHS Qty: 90 3RF Entresto 24-26 mg tablet 1 tab PO BID Qty: 180 3RF Hold Instructions: hypotension omeprazole 40 MG capsule,delayed release(DR/EC) 40 mg PO DAILY Patient Comments: erythromycin 1 APPLIC ointment 1 applic LEFT EYE QHS Patient Comments: left eye aspirin 81 MG tablet,chewable 81 mg PO DAILY@0800 meclizine 25 MG tablet 25 mg PO TID PRN PRN (Reason: Dizziness) cholecalciferol (vitamin D3) [Vitamin D3] 50 mcg (2,000 unit) tablet 2,000 unit PO DAILY metoprolol succinate 25 mg tablet extended release 24 hr 25 mg PO BID Qty: 180 3RF furosemide 20 mg tablet 40 mg PO DAILY Qty: 90 3RF potassium chloride 20 mEq tablet extended release 20 meq PO DAILY Qty: 90 3RF Primary Care Provider: Luiz Avery Referrals: Luiz Avery MD [Primary Care Provider] - Disposition Disposition: Acute Care Hospital [facility] What to do if you have Problems For any increased pain, shortness of breath, bleeding, nausea or vomiting, chestpain, or any unexpected problems, contact your Primary Care Provider. Call [facility] ([phone]) or report to the closest Emergency Room. Call 911 if necessary. 03/16/23 1745 <Electronically signed by Sherry Matta DO> Cosigner Signature (if applicable): CC: Dr. Luiz Avery MD ~ Signed [facility] Work Phone: 1(422) 305-902011-17-2023 Discharge summary Author Sherry Matta [facility] March 16, 2023 5:45pm Note Date/Time March 16, 2023 5:33pm [facility] Medical Records Department [address] [place] [address] Emergency Department Summary 03/16/23 MR#: [id number] Acct: [id number] Name: DAYANA QUIÑONES Rep #:[id number] : 1940 83 From: Sherry White PCP: Dr. Luiz Avery MD Status :REG ER Location: ED HPI History of Present Illness Chief Complaint: Shortness of Breath Informant: patient Narrative Narrative: Patient is an 83-year-old female with history of pacemaker with Mobitz type II block, coronary artery disease status post CABG performed at [facility] 2 months ago, ischemic cardiomyopathy, atrial fibrillation (on Eliquis) presenting with worsening shortness of breath and fatigue. Patient was seen andevaluated by myself in the ER 2 days ago for similar symptoms of worsening dyspnea on exertion and now orthopnea/paroxysmal nocturnal dyspnea. I had offered admission 2 days ago but patient wanted to try doubling up her Lasix (80mg total daily) for the past 2 days but nots she was more symptomatic last nightand woke up short of breath and even after moving to a recliner was still short of breath. She saw her PCP today and when asked if she felt safe going home she immediately said no but states that actually she does feel safe going home but was very worried about having another night like last night with her breathing. No other complaints at this time. 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 Chronic diastolic (congestive) heart failure Essential (primary) hypertension Fractured sternum History of ST elevation myocardial infarction (STEMI) (11/16/18) History of vertigo Ischemic cardiomyopathy Mobitz (type) II atrioventricular block 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) Home Medications aspirin 81 mg chewable tablet 81 mg PO DAILY@0800 circulation 12/08/16 [History Last Taken 11/22/22] erythromycin 5 mg/gram (0.5 %) eye ointment 1 applic LEFT EYE QHS eye health 12/08/16 [History Last Taken 07/31/18] omeprazole 40 mg capsule,delayed release 40 mg PO DAILY acid reflux 12/08/16 [History Last Taken 11/22/22] meclizine 25 mg tablet 25 mg PO TID PRN PRN Dizziness 08/01/18 [History Last Taken Unknown] acyclovir 800 mg tablet 800 mg PO DAILY 09/11/19 [History Last Taken 11/22/22] difluprednate 0.05 % eye drops 1 drp ophthalmic (eye) Q OTHER DAY 05/13/20 [History Last Taken Unknown] timolol maleate 0.5 % eye drops 1 drp ophthalmic (eye) BID 02/14/22 [History Last Taken Unknown] vit A 300 mcg-C 200 mg-E 27 mg-lutein 2 mg and minerals tablet (Eye Health Plus Lutein) 1 tab PO BID 02/14/22 [History Last Taken Unknown] dapagliflozin propanediol 10 mg tablet (Farxiga) 10 mg PO DAILY #90 tabs 09/19/22 [Rx Last Taken 11/22/22] apixaban 5 mg tablet (Eliquis) 5 mg PO BID #180 tabs 02/09/23 [Rx Last Taken Unknown] atorvastatin 20 mg tablet 20 mg PO QHS #90 tabs 02/09/23 [Rx Last Taken Unknown] sacubitril 24 mg-valsartan 26 mg tablet (Entresto) 1 tab PO BID #180 tabs 02/09/23 [Rx Last Taken Unknown] metoprolol succinate 25 mg tablet,extended release 24 hr 25 mg PO BID This is a dose increase #180 tabs 02/19/23 [Rx Last Taken Unknown] furosemide 20 mg tablet 40 mg (2 x 20 mg) PO DAILY #90 tabs 03/06/23 [Rx Last Taken Unknown] potassium chloride 20 mEq tablet,extended release 20 meq PO DAILY #90 tabs 03/14/23 [Rx Last Taken Unknown] cholecalciferol (vitamin D3) 50 mcg (2,000 unit) tablet (Vitamin D3) 2,000 unit PO DAILY 03/16/23 [History Last Taken Unknown] Allergy/AdvReac Type Severity Reaction Status Date / Time morphine Allergy Vomiting Verified 03/16/23 12:43 Family History Father Heart disease Surgical History History of coronary artery stent placement (12/19/18) History of left heart catheterization (06/21/20) Presence of permanent cardiac pacemaker (08/02/18) S/P CABG x 2 S/P mitral valve repair Social History Smoking Status: Former smoker how long ago did patient quit smokin alcohol intake: never substance use type: does not use caffeine: Yes Type: coffee Number of servings: 2 ROS ROS ED Constitutional Constitutional ED: Denies chills or fever(s) Cardiovascular Cardiovascular: Reports orthopnea and paroxysmal nocturnal dyspnea; Denies chestpain or palpitations Respiratory/Chest Respiratory/Chest: Reports cough, dyspnea on exertion, orthopnea and paroxysmal nocturnal dyspnea Gastrointestinal Gastrointestinal: Denies abdominal pain, nausea or vomiting Musculoskeletal Musculoskeletal: Denies arthralgias or myalgias Integumentary Denies rash Neurologic Neurologic: Denies headache(s) Hematologic/Lymphatic Hematologic/Lymphatic: Reports easy bleeding and easy bruising EXAM Physical Exam Const Vital Signs: 03/16/23 12:43 03/16/23 13:18 03/16/23 16:40 Temperature 97.8 F Temperature Source Temporal Pulse Rate 98 90 Respiratory Rate 20 H 18 Respiratory Effort Normal Respiratory Depth Normal Respiratory Pattern Normal Blood Pressure 109/69 110/70 Blood Pressure Mean 82 83 Pulse Ox 99 95 Oxygen Delivery Method Room Air Room Air Room Air Positive well nourished and well developed General Appearance ED: well developed and NAD; Negative for pallor HEENT Reports moist mucous membranes Eyes PERRL and EOMs intact bilaterally Neck supple and no JVD Resp Resp Narrative: Diminished breath sounds and crackles most pronounced at the right base Cardio regular rate Rhythm: abnormal rhythm GI non-tender and non-distended Extremity Extremity Narrative: 1+ pretibial edema General Extremety ED: Negative for tenderness Neuro oriented x3 Sensorium / Orientation: alert Motor Exam: Negative for general weakness Psych mental status grossly normal Skin no wounds General Skin Exam: Negative for jaundice or pallor MDM MDM MDM Narrative Medical decision making narrative: Patient is evaluated for worsening shortness of breath despite being on a doubledose of Lasix for 2 days now. She appears nontoxic in no acute distress. Vitalsigns are normal. Blood pressure is a little on the low side but this appears to be baseline for patient. Differential includes CHF exacerbation, exacerbation of pulmonary fibrosis, ACS,TRINI, pneumonia and failure of outpatient treatment While patient not requiring supplemental oxygen her BNP is up trending. It is from 14 100-15 100 despite increasing her Lasix. This is concerning for failureof outpatient treatment given that she is increased her Lasix is having worsening symptoms. Her creatinine is not significantly changed from 2 days agoat 1.48 (mildly improved). CBC otherwise unremarkable. She does not have a fever leukocytosis and low suspicion for pneumonia or acute infiltrate. I do not think she requires antibiotics. Hemoglobin stable from her baseline is at 11.6. She is not having any chest pain and I do not think she requires a troponin. She does have hypokalemia with a potassium of 2.8. We will add on magnesium andgive oral potassium replacement in the ER. EKG does show ventricular paced rhythm. Discussed with patient that I am worried that she is worsening despite optimizing outpatient treatment and would benefit from admission for IV Lasix and cardiac consult. She is agreeable. Is given 60 mg IV Lasix in the ER and case discussed with hospitalist, Dr. Garcia. History & Record Review Additional record(s) reviewed:: Prior ED visit and Prior labs Lab Data Attestation: I reviewed the patient's lab results. Labs: Laboratory Results - last 24 hr 03/16/23 13:15 WBC 9.0 RBC 3.73 L Hgb 11.6 L Hct 34.6 L MCV 92.8 MCH 31.1 MCHC 33.5 D RDW Std Deviation 52.0 H RDW Coeff of Sakina 15.3 H Plt Count 182 MPV 11.8 Immature Gran % (Auto) 0.400 Neut % (Auto) 73.8 H Lymph % (Auto) 17.7 L O'Brien % (Auto) 6.6 Eos % (Auto) 1.2 Baso % (Auto) 0.3 Absolute Neuts (auto) 6.6 Absolute Lymphs (auto) 1.59 Nucleated RBC % 0 Sodium 140 Potassium 2.8 L Chloride 103 Carbon Dioxide 26.0 Anion Gap 11 BUN 24 H Creatinine 1.48 H Estim Creat Clear Calc 23.41 Est GFR (MDRD) Af Amer 43 L Est GFR (MDRD) Non-Af 36 L BUN/Creatinine Ratio 16.2 Glucose 109 H Calcium 8.1 L B-Natriuretic Peptide 1513.1 H Radiography Chest X-Ray - ED: 2 View, Read by ED Physician, Read by Radiologist and Chronic Changes Diagnostic Testing: Clinical Impression(s) from Imaging Studies Chest X-Ray 03/16/23 16:10 IMPRESSION: No interval change. Electronically Signed: Carson Edmonds MD at 16:33 EST , Rhythm Strip Rhythm Strip: Paced Rate: 85 Ectopy: None EKG Initial EKG: Attestation: I personally reviewed and interpreted this EKG as follows: Interpretation: Paced Comments: Ventricular paced rhythm at a rate of 85 beats per minutes No significant change compared to prior EKGs Differential Diagnosis Chest pain/SOB: pulmonary embolism Reason(s) PE less likely: Positive for patient taking oral anticoagulants and pneumonia Reason(s) pneumonia less likely: Positive for no infiltrate on CXR, no elevation in WBC count, no noted fever andsymptoms not consistent with acute infection Management Discussion w/another healthcare provider: Hospitalist Discharge Plan Triage Chief Complaint: Shortness of Breath ED Provider: Sherry Matta Dx/Rx/DC Orders Clinical Impression: WIN (dyspnea on exertion), Anticoagulant long-term use, CHF exacerbation, Failure of outpatient treatment Prescriptions: No Action acyclovir 800 mg tablet 800 mg PO DAILY difluprednate 0.05 % drops 1 drp OPHTHALMIC Q OTHER DAY Patient Comments: INSTILL 1 DROP INTO LEFT EYE THREE TIMES A WEEK timolol maleate 0.5 % drops 1 drp ophthalmic (eye) BID Rx Instructions: left eye Eye Health Plus Lutein 300 mcg-200 mg-27 mg-2 mg tablet 1 tab PO BID Farxiga 10 mg tablet 10 mg PO DAILY Qty: 90 3RF Eliquis 5 mg tablet 5 mg PO BID Qty: 180 3RF atorvastatin 20 mg tablet 20 mg PO QHS Qty: 90 3RF Entresto 24-26 mg tablet 1 tab PO BID Qty: 180 3RF Hold Instructions: hypotension omeprazole 40 MG capsule,delayed release(DR/EC) 40 mg PO DAILY Patient Comments: erythromycin 1 APPLIC ointment 1 applic LEFT EYE QHS Patient Comments: left eye aspirin 81 MG tablet,chewable 81 mg PO DAILY@0800 meclizine 25 MG tablet 25 mg PO TID PRN PRN (Reason: Dizziness) cholecalciferol (vitamin D3) [Vitamin D3] 50 mcg (2,000 unit) tablet 2,000 unit PO DAILY metoprolol succinate 25 mg tablet extended release 24 hr 25 mg PO BID Qty: 180 3RF furosemide 20 mg tablet 40 mg PO DAILY Qty: 90 3RF potassium chloride 20 mEq tablet extended release 20 meq PO DAILY Qty: 90 3RF Primary Care Provider: Luiz Avery Referrals: Luiz Avery MD [Primary Care Provider] - Disposition Disposition: Acute Care Hospital [facility] What to do if you have Problems For any increased pain, shortness of breath, bleeding, nausea or vomiting, chestpain, or any unexpected problems, contact your Primary Care Provider. Call [facility] ([phone]) or report to the closest Emergency Room. Call 911 if necessary. 03/16/231744 <Electronically signed by Sherry Matta DO> Cosigner Signature (if applicable): CC: Dr. Luiz Avery MD ~ Signed [facility] Work Phone: 1(246) 697-355711-17-2023 History and physical note Author Willa Garica [facility] March 16, 2023 9:01pm Note Date/Time March 16, 2023 8:48pm [facility] Medical Records Department [address] [place] [address] H&P Exam - Hospitalist 03/16/23 173 MR#: [id number] Acct: [id number] Name: DAYANA QUIÑONES SEBLE Rep #:[id number] : 1940 83 From: Willa Garcia MD PCP: Dr. Luiz Avery MD Status :ADM IN Location: [facility]273- 1 HPI - General General Date of Admission: 03/16/23 Date of Service: 03/16/23 Chief Complaint: Increased BL LE swellling, orthopnea, dyspnea worse with exertion. HPI Narrative The patient is an 83 y/o F w/ PMHx: HTN, HLD, PAF, Chronic HFrEF/Ischemic cardiomyopathy (EF 11/2022 30%), Hx mobitz type II block s/p pacemaker placement,Valvular heart disease s/p MV repair, CAD s/p PCI and recent CABG x 2 11/2022, Chronic normocytic anemia, CKD stage III unclear subtype per GFR trending, Pulmonary Fibrosis who presents to the [facility] ED on 03/16/23 with history of ongoing persistent dyspnea worse over the last week with ED presentation 2 days prior to current presentation with increase of her Lasix, doubling however she still remains significantly dyspneic worse with exertion with orthopnea and mildincrease swelling to her legs although no pitting edema prompting referral to the ED for evaluation. Patient denies any associated chest discomfort with her current presentation. In the ED included T97.8, heart rate 98, BP 109/69, respiratory rate 20, 99% on room air, CBC with WC 9.0, hemoglobin 11.6, MCV 92.8, platelet 192 without marked shift, BMP with potassium 2.8, BUN/creatinine 24/1.48, glucose 109, BNP one 513.1, chest x- ray with chronic fibrotic changes with no interval change from previous x-ray, EKG paced. In the ED patient administered Lasix 60 mg IV x1 as well as potassium chloride 40 mill equivalent p.o. x1. REPLACED BY [facility] Medical History (Updated 03/16/23 @ 20:[address] Willa Garcia MD) Acute kidney injury Anxiety 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 Chronic anemia Essential (primary) hypertension Fractured sternum HFrEF (heart failure with reduced ejection fraction) History of ST elevation myocardial infarction (STEMI) (11/16/18) History of vertigo Ischemic cardiomyopathy Mobitz (type) II atrioventricular block 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) Home Medications aspirin 81 mg chewable tablet 81 mg PO DAILY@0800 circulation 12/08/16 [History Last Taken 11/22/22] erythromycin 5 mg/gram (0.5 %) eye ointment 1 applic LEFT EYE QHS eye health 12/08/16 [History Last Taken 07/31/18] omeprazole 40 mg capsule,delayed release 40 mg PO DAILY acid reflux 12/08/16 [History Last Taken 11/22/22] meclizine 25 mg tablet 25 mg PO TID PRN PRN Dizziness 08/01/18 [History Last Taken Unknown] acyclovir 800 mg tablet 800 mg PO DAILY 09/11/19 [History Last Taken 11/22/22] difluprednate 0.05 % eye drops 1 drp ophthalmic (eye) Q OTHER DAY 05/13/20 [History Last Taken Unknown] timolol maleate 0.5 % eye drops 1 drp ophthalmic (eye) BID 02/14/22 [History Last Taken Unknown] vit A 300 mcg-C 200 mg-E 27 mg-lutein 2 mg and minerals tablet (Eye Health Plus Lutein) 1 tab PO BID 02/14/22 [History Last Taken Unknown] dapagliflozin propanediol 10 mg tablet (Farxiga) 10 mg PO DAILY #90 tabs 09/19/22 [Rx Last Taken 11/22/22] apixaban 5 mg tablet (Eliquis) 5 mg PO BID #180 tabs 02/09/23 [Rx Last Taken Unknown] atorvastatin 20 mg tablet 20 mg PO QHS #90 tabs 02/09/23 [Rx Last Taken Unknown] sacubitril 24 mg-valsartan 26 mg tablet (Entresto) 1 tab PO BID #180 tabs 02/09/23 [Rx Last Taken Unknown] metoprolol succinate 25 mg tablet,extended release 24 hr 25 mg PO BID This is a dose increase #180 tabs 02/19/23 [Rx Last Taken Unknown] furosemide 20 mg tablet 40 mg (2 x 20 mg) PO DAILY #90 tabs 03/06/23 [Rx Last Taken Unknown] potassium chloride 20 mEq tablet,extended release 20 meq PO DAILY #90 tabs 03/14/23 [Rx Last Taken Unknown] cholecalciferol (vitamin D3) 50 mcg (2,000 unit) tablet (Vitamin D3) 2,000 unit PO DAILY 03/16/23 [History Last Taken Unknown] Allergy/AdvReac Type Severity Reaction Status Date / Time morphine Allergy Vomiting Verified 03/16/23 12:43 Family History (Updated 03/16/23 @ 20:[address] Willa Garcia MD) Father Heart disease Mother Heart disease Chronic anemia Iron deficiency Surgical History History of coronary artery stent placement (12/19/18) History of left heart catheterization (06/21/20) Presence of permanent cardiac pacemaker (08/02/18) S/P CABG x 2 S/P mitral valve repair Social History (Updated 03/16/23 @ 20:[address] Willa Garcia MD) household members: none Smoking Status: Former smoker how long ago did patient quit smoking: Quit in 1967. alcohol intake: never substance use type: does not use caffeine: Yes Type: coffee Number of servings: 2 ROS ROS Narrative Admission Review of Systems: CONSTITUTIONAL: No weight loss, fever, chills, + weakness or fatigue. HEENT: Eyes: No visual loss, blurred vision, double vision or yellow sclerae. Ears, Nose, Throat: No hearing loss, sneezing, congestion, runny nose or sore throat. SKIN: No rash or itching, lesions, wounds. CARDIOVASCULAR: + Mild edema, peripherally, orthopnea. No chest pain, chest pressure or chest discomfort, palpitations, syncopal events. RESPIRATORY: + Shortness of breath. No cough or sputum, wheezing, hemoptysis. GASTROINTESTINAL: No anorexia, nausea, vomiting or diarrhea, abdominal pain, melena, BRBPR. GENITOURINARY: No dysuria, frequency, urgency or retention. NEUROLOGICAL: No headache, dizziness, syncope, paralysis, ataxia, numbness or tingling in the extremities, focal weakness, change in bowel or bladder control,seizure. MUSCULOSKELETAL: + muscle, back pain, joint pain or stiffness. HEMATOLOGIC: + anemia, easy bleeding/bruising. LYMPHATICS: No enlarged nodes. No history of splenectomy. PSYCHIATRIC: No history of depression or anxiety. ENDOCRINOLOGIC: No reports of sweating, cold or heat intolerance. No polyuria orpolydipsia. ALLERGIES: No history of asthma, hives, eczema or rhinitis. Vital Signs Vital Signs Vital Signs: 03/16/23 12:43 03/16/23 13:18 03/16/23 16:40 Temperature 97.8 F Temperature Source Temporal Pulse Rate 98 90 Respiratory Rate 20 H 18 Respiratory Effort Normal Respiratory Depth Normal Respiratory Pattern Normal Blood Pressure 109/69 110/70 Blood Pressure Mean 82 83 Pulse Ox 99 95 Oxygen Delivery Method Room Air Room Air Room Air Weight Weight: 153 lb 6.4 oz Body Mass Index (BMI) 27.1 Physical Exam Narrative Physical Examination: General: Awake, alert, oriented x 3 and cooperative, seated upright in the ED bed, fatigued appearing. Skin: Normal color, normal turgor, no icterus, no cyanosis except occasional staged ecchymoses. HEENT: AT/NC, EOMI, PERRLA, MMM, no carotid bruits, no severe markedly elevated JVD noted. Lungs: Initial, bases, appropriate effort, mild crackles, very minor rales at the bases, no rhonchi or wheezing. This is not Heart: Regular rate/rhythm/paced; no gallop, rub audible, + SM. Abdomen: Soft, overweight, NTTP, ND, normal BS, no HSM. Extremities: No cyanosis, no clubbing, mild not markedly pitting pedal to distalshin edema. Neurological: Patient awake, alert, oriented as noted, cognitive function intact; pupils equally reactive to light and accommodation, cranial nerves II-XII grossly normal, moving all 4 extremities, no focal deficits, strength moderatelyglobally decreased secondary to acute presentation and underlying comorbidities. Psychiatric: Affect appears fatigued otherwise normal, no acute evidence of depressive or anxiety feelings. Results Lab / Micro Data 03/16/23 13:15 03/16/23 13:15 Labs: Laboratory Results - last 24 hr 03/16/23 13:15: WBC 9.0, RBC 3.73 L, Hgb 11.6 L, Hct 34.6 L, MCV 92.8, MCH 31.1,MCHC 33.5 D, RDW Std Deviation 52.0 H, RDW Coeff of Sakina 15.3 H, Plt Count 182, MPV 11.8, Immature Gran % (Auto) 0.400, Neut % (Auto) 73.8 H, Lymph % (Auto) 17.7 L, O'Brien % (Auto) 6.6, Eos % (Auto) 1.2, Baso % (Auto) 0.3, Absolute Neuts (auto) 6.6, Absolute Lymphs (auto) 1.59, Nucleated RBC % 0, Sodium 140, Potassium 2.8 L, Chloride 103, Carbon Dioxide 26.0, Anion Gap 11, BUN 24 H, Creatinine 1.48 H, Estim Creat Clear Calc 23.41, Est GFR (MDRD) Af Amer 43 L, Est GFR (MDRD) Non-Af 36 L, BUN/Creatinine Ratio 16.2, Glucose 109 H, Calcium 8.1 L, B-Natriuretic Peptide 1513.1 H Imagaing Radiology Impression Chest X-Ray 03/16/23 16:10 IMPRESSION: No interval change. Electronically Signed: Carson Edmonds MD at 16:33 EST , Assessment & Plan Assessment/Plan (1) CHF exacerbation: (2) Failure of outpatient treatment: PLAN: Plan The patient is an 83 y/o F w/ PMHx: HTN, HLD, PAF, Chronic HFrEF/Ischemic cardiomyopathy (EF 11/2022 30%), Hx mobitz type II block s/p pacemaker placement, Valvular heart disease s/p MV repair, CAD s/p PCI and recent CABG x 2 11/2022, Chronic normocytic anemia, CKD stage III unclear subtype per GFR trending, Pulmonary Fibrosis who presents to the [facility] ED on 03/16/23 with history of ongoing persistent dyspnea worse over the last week with ED presentation 2 days prior to current presentation with increase of her Lasix, doubling however she still remains significantly dyspneic worse with exertion with orthopnea and mildincrease swelling to her legs although no pitting edema prompting referral to the ED for evaluation. #1. Acute Decompensated HFrEF Exacerbation/ischemic Cardiomyopathy: Patient administered IV lasix in the ED, will admit to PCU, maintain on cardiac telemetry, obtain cardiac enzyme series, obtain serial EKGs, continue IV lasix diuresis as BP allows given low normal range, monitor I/Os, maintain on intake restriction, continue medical therapy, obtain TSH and magnesium level. Most recent ECHO noted 11/2022 from OSH with CABG with EF noted 30%, will repeat. Cardiology consulted, pending. Place BL LE remi wraps although edema not severe. #2. Hypokalemia: Admission K+ 2.8, magnesium level requested, supplementation given, repeat level in AM. #3. CAD: s/p PCI NEGRO to the RCA 11/2018 and CABG times with PEDRAZA to LADand SVG to OM1, will continue asa, eliquis, entresto, metoprolol home regimen. #4. Hypertension: Continue home regimen including Entresto, metoprolol, IV Lasix, PRN hydralazine. Given low normal BP will prioritize IV diuretics at this time. #5. Hyperlipidemia: Continue home statin regimen. AM FLP. #6. PAF: We will continue patient home metoprolol and Eliquis regimen. #7. Valvular Heart Disease: s/p mitral valve repair 12/14/2022 with 28 ring withleft atrial appendage ligation and atrial clip, most recent ECHO from 11/2022 with left third percent with moderate mitral regurgitation, repeat echo requested as noted. #8. Chronic Kidney Disease Stage III unclear subtype per GFR trending: Admission BUN/Cr 24/1.48, baseline renal function primarily 1.2-1.5, repeat BMP in AM. #9. Chronic normocytic anemia: Admission hemoglobin 11.6, MCV 92.8, baseline hemoglobin appears more recently 11-12 range, stable, continue to trend. #10. History of Mobitz type II AV block: Status post pacemaker placement, most recent pacer check noted 03/06/2023 stable. #11. GERD: We will continue home #12. DVT Prophylaxis: We will continue patient home Eliquis regimen. #13. CODE status: Patient ELSIE is her daughter's (2) and living will is currently in place. Discussed CODE status at length including difference betweenFULL code, DNR-CCA and DNR-CC status. Following discussions about the differences in these status, requested Full Code status. Advanced Care Planning Face to Face Time: 16 minutes. Charges/Coding Visit Charges Inpatient E&M: 45177 Init Hosp L3 Procedures Hospitalists Procedures: 06111 Advncd Care Plan 30 Min 03/16/23 2101 <Electronically signed by Willa Garcia MD> Cosigner Signature (if applicable): CC: Dr. Willa Garcia MD; Dr. Luiz Avery MD~ Signed [facility] Work Phone: 1(769) 216-712111-17-2023 History of Present illness Narrative* Amalia Avery MD - 03/16/2023 11:46 AM EST Chief Complaint Patient presents with: ER F/U Fatigue Blood Pressure: Patient reports has been running low and that [facility] has been adjusting medications HPI Dayana Quiñones is a 83 year old female who presents here today for ER Follow Up. Accompanied todayby her daughter. Patient evaluated at [facility] ED on 03/14 after calling in to our office with complaint of BP 90/72 withlightheadedness/dizziness, SOB, feeling off balance, vomiting x1. Initial [...] try lasix 80 mg BID as her cardiologistrecommended. Discharged home. Since discharge, patient has been checking her BP at home with automatic arm cuff and has continuedto get BP's in the 90's systolic. Does check it while seated upright on her couch. Admits to orthopnea and SOB last night until this morning, shaking, malaise, lightheadedness/dizziness. Denies LE swelling, chest pain, palpations, nausea, vomiting. Taking Lasix 40 mg BID instead of daily x 3 days as directed by her mold sander. Diuresing well on higher dosage of Lasix. Daily weight at home has been stable around [address] Brumfield's office on 03/13, but has not spoke to their officesince discharge. Admits to eating canned soups about 3 times per week, wolof bread pizza occasionally. Does not addsalt to her food. 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 [...] infarction involving left anterior descending coronary artery (HCC)2019 Previous Surgical History PAST SURGICAL HISTORY Procedure [...] home. Daughter will drive her to the [facility] ED. Report sent via ER Passport. Will f/u on discharge. - XR CHEST 2V FRONTAL/LAT - CBC + DIFF - COMP METABOLIC PANEL - NT PRO BNP I spent a total of 50 minutes on the date of the service which included preparing to see the patient, [id number] patient care, completing clinical documentation, obtaining and/or reviewing separately obtained history, performing a medically appropriate examination, counseling and educating the pat ient/family/caregiver, ordering medications, tests, or procedures, and communicating with other HCPs (not separately reported). Amalia Avery MD documented in this [facility]Tr[facility]11-16-2023 Miscellaneous Notes* Telephone Encounter - Amalia Avery MD - 03/15/2023 11:11 AM EST Reviewed. * Telephone Encounter - Kelly Hair LPN - 03/15/2023 8:36 AM EST Patient was seen in the ER 03/14/23. ER summary placed on provider's desk for review. Patient has 03/16/[address] Avery. * Telephone Encounter - Constanza Robles LPN - 03/14/2023 2:21 PM EST Patient daughter Radha calling back wants mother to hear notes from Dr Avery. Went over informationbelow and daughter wanted information put on mother my chart so she could access it for the [facility] ER.Copy and pasted to mother my chart as requested. Daughter plans to take mother to [facility] ER now. * Telephone Encounter - Masha Pulliam RN - 03/14/2023 1:54 PM EST Attempted to call the patient back twice with no answer. With concern about the patient, called heremergency contact who is her daughter Radha. Explained [...] mother and get her to the ER. * Telephone Encounter - Amalia Avery MD - 03/14/2023 1:28 PM EST She needs to got to the ER [...] from this. Go to the ER now. * Telephone Encounter - Genesis Oliva RN - 03/14/2023 1:05 PM EST Pt called and is notified of providers message and instructions. Pt voices understanding. She states Cardiology had her stop the Spirolactone about 2 weeks ago and the Entresto she stopped a week agoTday 03/13/23. She reports that when she stopped the [...] lab results. Please call and advise. Genesis Oliva RN * Telephone Encounter - Amalia Avery MD - 03/14/2023 11:10 AM EST Cardiology does not have her taking Hyzaar on their med list. They have her on Metoprolol 25 mg daily instead of Cozaar. They do have her on Entresto as well as lasix 20 mg daily and spironolactone 25 mg daily. Please confirm med list with patient. If accurate, would have her hold her lasix at thistime to try to improve BP. If she has persistently low BP with lightheadedness/dizziness, SOB, passing out, nausea/vomiting/diarrhea would recommend ER evaluation. * Telephone Encounter - Kinga Chilel LPN - 03/14/2023 10:01 AM EST Patient telephoned. Will keep appointment for 03/16. Yesterday around 10am was BP 90/72 P 90. Has not taken yet today. Labs from 03/13 printed off and placed on PCP desk. Below is all recent cardiology appointments. Scan on 02/10/2023 1:58 PM by ProviderRadha PAKalyaniC: Consultation - Cardiology Scan on 01/03/2023 9:11 AM by ProviderRadha PAKalyaniC: Miscellaneous Clinical Documents Scan on 11/27/2022 2:25 PM by ProviderRadha PA-C: Cardiac Cath Scan on 11/14/2022 3:18 PM by ProviderRadha PA-C: Consultation - Cardiology * Telephone Encounter - Amalia Avery MD - 03/13/2023 3:29 PM EST Please obtain recent records from Dr. Brumfield's office. Keep f/u on 03/16. Has patient checked BP today? If so, what was the reading? * Telephone Encounter - Nathalie Lerma RN - 03/13/2023 1:32 PM EST Patient calls and states that she has been feeling tired and fatigued. Patient's blood pressure hasbeen low with systolic being in the 90s. [...] discuss. Nathalie Lerma RN documented in this encounterTr[facility]11-15-2023 Discharge summary Author Sherry [facility] March 14, 2023 7:18pm Note Date/Time March 14, 2023 5:10pm [facility] Medical Records Department [address] [place] [address] Emergency Department Summary 03/14/23 MR#: [id number] Acct: [id number] Name: DAYANA QUIÑONES Rep #:[id number] : 1940 83 From: Sherry White PCP: Dr. Luiz Avery MD Status :REG ER Location: ED HPI History of Present Illness Chief Complaint: General Illness Informant: patient Narrative Narrative: Patient is 83-year-old female with history of pacemaker, Mobitz type II block, coronary artery disease with CABG performed at [facility] approximately 8 weeks ago and ischemic cardiomyopathy presenting with worsening fatigue, exercise intolerance no orthopnea. Patient states that she felt fine after her surgery and spent 8 weeks at rehab facility [facility]. The first week that she washome she was feeling good but then over the past 2 weeks she feels she is been going downhill. Denies any weight change. Notes that her mold sander been working on titrating her medicine. She states she feels exhausted all the time and has no energy. She states her breathing feels different and she gets short of breath with minimal exertion. She denies any dizziness but does have associated lightheadedness. States she feels that she has a hard time walking because her legs just feel weak. States her blood pressures been lower than normal in the 90s systolic. Denies any chest pain. Over the past week has developed difficulty sleeping. She states she is waking up having a hard time breathing and having to go into the chair. She did have blood work yesterday and her PCP recommend she come to the ER but she is not entirely sure why. She denies any fever or chills. Denies any productive cough. Denies any swelling of her legs or recent weight change. Denies any diarrhea, constipation or melanotic stools. Is on Eliquis. 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 Chronic diastolic (congestive) heart failure Essential (primary) hypertension Fractured sternum History of ST elevation myocardial infarction (STEMI) (11/16/18) History of vertigo Ischemic cardiomyopathy Mobitz (type) II atrioventricular block 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) Home Medications aspirin 81 mg chewable tablet 81 mg PO DAILY@0800 circulation 12/08/16 [History Last Taken 11/22/22] erythromycin 5 mg/gram (0.5 %) eye ointment 1 applic LEFT EYE [facility] eye health 12/08/16 [History Last Taken 07/31/18] omeprazole 40 mg capsule,delayed release 40 mg PO DAILY acid reflux 12/08/16 [History Last Taken 11/22/22] meclizine 25 mg tablet 25 mg PO TID PRN PRN Dizziness 08/01/18 [History Last Taken Unknown] acyclovir 800 mg tablet 800 mg PO DAILY 09/11/19 [History Last Taken 11/22/22] difluprednate 0.05 % eye drops 1 drp ophthalmic (eye) Q OTHER DAY 05/13/20 [History Last Taken Unknown] timolol maleate 0.5 % eye drops 1 drp ophthalmic (eye) BID 02/14/22 [History Last Taken Unknown] vit A 300 mcg-C 200 mg-E 27 mg-lutein 2 mg and minerals tablet ([facility] Plus Lutein) 1 tab PO BID 02/14/22 [History Last Taken Unknown] dapagliflozin propanediol 10 mg tablet (Farxiga) 10 mg PO DAILY #90 tabs 09/19/22 [Rx Last Taken 11/22/22] apixaban 5 mg tablet (Eliquis) 5 mg PO BID #180 tabs 02/09/23 [Rx Last Taken Unknown] atorvastatin 20 mg tablet 20 mg PO QHS #90 tabs 02/09/23 [Rx Last Taken Unknown] sacubitril 24 mg-valsartan 26 mg tablet (Entresto) 1 tab PO BID #180 tabs 02/09/23 [Rx Last Taken Unknown] metoprolol succinate 25 mg tablet,extended release 24 hr 25 mg PO BID This is a dose increase #180 tabs 02/19/23 [Rx Last Taken Unknown] furosemide 20 mg tablet 40 mg (2 x 20 mg) PO DAILY #90 tabs 03/06/23 [Rx Last Taken Unknown] potassium chloride 20 mEq tablet,extended release 20 meq PO DAILY #90 tabs 03/14/23 [Rx Last Taken Unknown] Allergy/AdvReac Type Severity Reaction Status Date / Time morphine Allergy Vomiting Verified 03/14/23 14:58 Family History Father Heart disease Surgical History History of coronary artery stent placement (12/19/18) History of left heart catheterization (06/21/20) Presence of permanent cardiac pacemaker (08/02/18) S/P CABG x 2 S/P mitral valve repair Social History Smoking Status: Former smoker how long ago did patient quit smokin alcohol intake: never substance use type: does not use caffeine: Yes Type: coffee Number of servings: 2 ROS ROS ED Constitutional Constitutional ED: Reports other Details: Fatigue ; Denies chills or fever(s) Eyes Eyes: Denies change in vision ENT ENT ED: Denies sore throat Cardiovascular Cardiovascular: Reports paroxysmal nocturnal dyspnea; Denies chest pain or palpitations Respiratory/Chest Respiratory/Chest: Reports cough, dyspnea, dyspnea on exertion and paroxysmal nocturnal dyspnea Gastrointestinal Gastrointestinal: Denies abdominal pain, nausea or vomiting Genitourinary Genitourinary ED: Reports dysuria, urinary frequency and other Details: atributes frequency to being on a diuretic ; Denies hematuria Musculoskeletal Musculoskeletal: Denies arthralgias or myalgias Integumentary Denies rash Neurologic Neurologic: Reports weakness; Denies headache(s) or paresthesias Psychiatric Psychiatric: Denies anxiety Hematologic/Lymphatic Hematologic/Lymphatic: Reports easy bleeding and easy bruising EXAM Physical Exam Const Vital Signs: 03/14/23 14:56 03/14/23 16:41 03/14/23 17:33 Temperature 97.4 F L Temperature Source Temporal Pulse Rate 88 Pulse Rate [Lying] 90 Pulse Rate [Sitting (for 1 minute prior to obtaining)] 86 Pulse Rate [Standing (for 1 minute prior to obtaining)] 93 Respiratory Rate 16 Respiratory Effort Short of Breath Respiratory Pattern Normal Blood Pressure 110/70 Blood Pressure [Lying] 88/71 L Blood Pressure [Sitting (for 1 minute prior to obtaining)] 106/70 Blood Pressure [Standing (for 1 minute prior to obtaining)] 111/63 Blood Pressure Mean 83 Blood Pressure Mean [Lying] 76 Blood Pressure Mean [Sitting (for 1 minute prior to obtaining)] 82 Blood Pressure Mean [Standing (for 1 minute prior to obtaining)] 79 Pulse Ox 98 Oxygen Delivery Method Room Air 03/14/23 16:56 03/14/23 18:00 Temperature Temperature Source Pulse Rate 88 81 Pulse Rate [Lying] Pulse Rate [Sitting (for 1 minute prior to obtaining)] Pulse Rate [Standing (for 1 minute prior to obtaining)] Respiratory Rate 16 16 Respiratory Effort Respiratory Pattern Blood Pressure 98/66 112/78 Blood Pressure [Lying] Blood Pressure [Sitting (for 1 minute prior to obtaining)] Blood Pressure [Standing (for 1 minute prior to obtaining)] Blood Pressure Mean 76 89 Blood Pressure Mean [Lying] Blood Pressure Mean [Sitting (for 1 minute prior to obtaining)] Blood Pressure Mean [Standing (for 1 minute prior to obtaining)] Pulse Ox 96 93 Oxygen Delivery Method Room Air Room Air Positive well nourished General Appearance ED: NAD HEENT Reports moist mucous membranes Eyes PERRL Neck supple Neck Narrative: minimal JVD Chest Wall inspection of chest normal and palpation of chest normal Resp normal respiratory effort Resp Narrative: Crackles present bilateral Cardio regular rate and regular rhythm; Negative for no murmurs GI normal to inspection, nondistended, normoactive bowel sounds and non-tender Extremity normal to inspection General Extremety ED: Negative for edema or tenderness General Extremity: Negative for edema Neuro oriented x3 Sensorium / Orientation: alert Motor Exam: Negative for general weakness Psych mental status grossly normal Skin no rashes or lesions noted MDM MDM MDM Narrative Medical decision making narrative: For what sounds like increased absent on exertion and proximal nocturnal dyspnea. Significant cardiac history with recent CABG. Has been titrating medications outpatient. Blood pressure is mildly soft in the ER but she is not hypotensive. She is asymptomatic at rest. Orthostatics are normal. She is nothypoxic and on ambulation trial stays at 95%. No signs of infection and does not have any bacteria in her urine. As she is having some mild symptoms will send off for culture out of abundance of caution. Is a troponin is normal at 28. Given that she generally having chest pain do not think she requires further cardiac work-up. Her creatinine is mildly improved today at 1.46 but still mildly elevated. It is not significantly worsening more importantly. Her BNP is mildly uptrending. I did offer admission for IV diuresis and monitoring given her borderline soft blood pressures with mild bump in her creatinine. Medical decision made and patient elects for outpatient treatment at this time. She states that she would like to try her cardiology plan of 80 mg oral Lasix twice a day. She also states that she has an THROUGH OPERATOR scheduled to come out to her house to check her vital signs and keep an eye on her. Counseled on close return precautions and that if her symptoms worsen she might need to come into the hospital. She does verbalize agreement understanding of this. Daughter is at the bedside is also agreeable. Lab Data Attestation: I reviewed the patient's lab results. Labs: Laboratory Results - last 24 hr 03/14/23 03/14/23 16:40 17:24 WBC 8.6 RBC 3.74 L Hgb 11.2 L Hct 35.2 L MCV 94.1 MCH 29.9 MCHC 31.8 L RDW Std Deviation 53.0 H RDW Coeff of Sakina 15.4 H Plt Count 183 MPV 11.2 Immature Gran % (Auto) 0.500 Neut % (Auto) 71.5 H Lymph % (Auto) 18.9 L O'Brien % (Auto) 6.9 Eos % (Auto) 1.7 Baso % (Auto) 0.5 Absolute Neuts (auto) 6.2 Absolute Lymphs (auto) 1.63 Nucleated RBC % 0 Sodium 143 Potassium 3.5 Chloride 106 Carbon Dioxide 27.0 Anion Gap 10 BUN 24 H Creatinine 1.46 H Est GFR (MDRD) Af Amer 44 L Est GFR (MDRD) Non-Af 36 L BUN/Creatinine Ratio 16.4 Glucose 104 Calcium 7.4 L Troponin I High Sens 28 B-Natriuretic Peptide 1419.1 H Urine Color Yellow Urine Clarity Clear Urine pH 6.0 Ur Specific [place] 1.010 Urine Protein 15 H Urine Glucose (UA) 250 H Urine Ketones Negative Urine Occult Blood 10 H Urine Nitrite Negative Urine Bilirubin Negative Urine Urobilinogen Normal Ur Leukocyte Esterase 100 H Urine RBC 0 SEEN Urine WBC 0-5 SEEN Ur Squamous Epith Cells 0-5 SEEN Urine Bacteria 0 SEEN Urine Mucus 0 SEEN Radiography Chest X-Ray - ED: 2 View, Read by ED Physician, Read by Radiologist, Cardiomegaly and CHF Diagnostic Testing: Clinical Impression(s) from Imaging Studies Chest X-Ray 03/14/23 16:45 IMPRESSION: Mild CHF improved. Status post sternotomy and atrial appendage clip. Electronically Signed: Yair Benítez MD at 17:20 EST , Discharge Plan Triage Chief Complaint: General Illness ED Provider: Sherry Matta Dx/Rx/DC Orders Clinical Impression: CHF exacerbation, WIN (dyspnea on exertion) Instructions: ED Heart Failure, Congestive (CHF), ED Dyspnea Prescriptions: No Action acyclovir 800 mg tablet 800 mg PO DAILY difluprednate 0.05 % drops 1 drp OPHTHALMIC Q OTHER DAY Patient Comments: INSTILL 1 DROP INTO LEFT EYE THREE TIMES A WEEK timolol maleate 0.5 % drops 1 drp ophthalmic (eye) BID Rx Instructions: left eye Eye [facility] Plus Lutein 300 mcg-200 mg-27 mg-2 mg tablet 1 tab PO BID Farxiga 10 mg tablet 10 mg PO DAILY Qty: 90 3RF Eliquis 5 mg tablet 5 mg PO BID Qty: 180 3RF atorvastatin 20 mg tablet 20 mg PO QHS Qty: 90 3RF Entresto 24-26 mg tablet 1 tab PO BID Qty: 180 3RF Hold Instructions: hypotension omeprazole 40 MG capsule,delayed release(DR/EC) 40 mg PO DAILY Patient Comments: erythromycin 1 APPLIC ointment 1 applic LEFT EYE QHS Patient Comments: left eye aspirin 81 MG tablet,chewable 81 mg PO DAILY@0800 meclizine 25 MG tablet 25 mg PO TID PRN PRN (Reason: Dizziness) metoprolol succinate 25 mg tablet extended release 24 hr 25 mg PO BID Qty: 180 3RF furosemide 20 mg tablet 40 mg PO DAILY Qty: 90 3RF potassium chloride 20 mEq tablet extended release 20 meq PO DAILY Qty: 90 3RF Primary Care Provider: Luiz Avery Referrals: Luiz Avery MD [Primary Care Provider] - Activity Restrictions/Additional Instructions: Your urine is not consistent with UTI however we will send it for culture just to be thorough. Your creatinine is mildly improved today. Please follow-up as previously scheduled on Sunday with your care doctor. Please take the 3 days ofincreased Lasix as discussed with your cardiology office. If your symptoms worsen, you feel you are going to pass out, have difficulty breathing or any other concerns please return to the emergency room. Disposition Disposition: Home, Self Care What to do if you have Problems For any increased pain, shortness of breath, bleeding, nausea or vomiting, chestpain, or any unexpected problems, contact your Primary Care Provider. Call [facility] ([phone]) or report to the closest Emergency Room. Call 911 if necessary. 03/14/231917 <Electronically signed by Sherry Matta DO> Cosigner Signature (if applicable): CC: Dr. Luiz Avery MD ~ Signed [facility] Work Phone: 1(554) 634-443410-20-2023 Telephone encounter Note* Telephone Encounter - Janel Mayberry, GRIS - BRANCH OFFICE MANAGER - 02/16/2023 4:[address] [facility]: [facility] [employer] [facility] [address] [facility] [address] Dept: [phone] Dept Loc: [phone] Visit type: Established patient - Virtual Reason for Visit: Post-op Follow-up Surgery/Procedure: 12/14/22: CABGx2 (PEDRAZA LAD, SVG to OM1) MVRepair (28 ring) LAAL with atriclip with Dr. Lai POD#64 Day from Discharge (12/30/22) #48 -Reviewed current meds Continue as ordered -Surgical Incisions: Per patient-healing appropriately, well approximated, no s/s of infection -Physical therapy as outlined in discharge instructions: Will discuss with Dr. Brumfield's office if she would like to do cardiac rehab in [place] -Acute Post-Operative Pain Tx plan: OTC as [...] 20 minutes. The patient was offered and advisedvideo for a more comprehensive evaluation, but the patient declined or was unable to use video. Patient location: Patient Location: Home. This patient encounter is appropriate and reasonable underthe circumstances: transportation issues . The patient has [...] call 911 if the patient deems either nec essary. The patient stated that they are currently in the state [facility]. If the patient is a minor,permission has been obtained by the parent or guardian for the patient to receive medical care at this visit. Patient identification was verified at the start of the visit: yes Total time spent on this encounter: 40 minutes Subjective: HPI: 82-year-old female seen in outpatient setting for surgical evaluation due to progressive shortness of breath with exertion. Patient with significant cardiac history: CAD (ME-October 2018-NEGRO to LADand LCx; November 2018-NEGRO to RCA), paroxysmal atrial [...] recently went home from her daughters house. Shefelt very good at her daughters, is more tired since going to her own home. Notes she has had many visitors this past week. She was seen at Dr. Snyder office, continues on GDMT regimen. They are planning a heart monitor for her. She states overall she is doing well. Walking and getting around withou t issue. Denies chest pain, SOB, leg swelling, or incisional issues. She is pleased with her care at [facility], but wishes to do any further follow up in [place] with Dr. Brumfield's office. Objective: Physical exam deferred due to virtual visit-with audio (telephone) capabilities only Labs/Imaging/Testing: reviewed EMR, see A&P for pertinent diagnostic results related to office visit Disclaimer INFORMED CONSENT:The nature and purpose of the proposed treatment or procedure have been discussed.The risks and benefits of the proposed treatment [...] This note may have been dictated using [employer] Practice Edition 2.6 and/or [employer] Voice Recognition Feature. The document was proofread, however unrecognized voice recognition hiv/aids care nurse errors may be present. [id number] Miscellaneous Notes* Telephone Encounter - GRIS Peguero CNP - 02/16/2023 4:[address] [facility]: [facility] [employer] [facility] [address] [facility] [address] Dept: [phone] Dept Loc: [phone] Visit type: Established patient - Virtual Reason for Visit: Post-op Follow-up Surgery/Procedure: 12/14/22: CABGx2 (PEDRAZA LAD, SVG to OM1) MVRepair (28 ring) LAAL with atriclip with Dr. Lai POD#64 Day from Discharge (12/30/22) #48 -Reviewed current meds Continue as ordered -Surgical Incisions: Per patient-healing appropriately, well approximated, no s/s of infection -Physical therapy as outlined in discharge instructions: Will discuss with Dr. Brumfield's office if she would like to do cardiac rehab in [place] -Acute Post-Operative Pain Tx plan: OTC as [...] 20 minutes. The patient was offered and advisedvideo for a more comprehensive evaluation, but the patient declined or was unable to use video. Patient location: [place] Patient Location: Home. This patient encounter is appropriate and reasonable underthe circumstances: transportation issues . The patient has [...] call 911 if the patient deems either nec essary. The patient stated that they are currently in the [facility]. If the patient is a minor,permission has been obtained by the parent or guardian for the patient to receive medical care at this visit. Patient identification was verified at the start of the visit: yes Total time spent on this encounter: 40 minutes Subjective: HPI: 82-year-old female seen in outpatient setting for surgical evaluation due to progressive shortness of breath with exertion. Patient with significant cardiac history: CAD (ME-October 2018-NEGRO to LADand LCx; November 2018-NEGRO to RCA), paroxysmal atrial [...] recently went home from her daughters house. Shefelt very good at her daughters, is more tired since going to her own home. Notes she has had many visitors this past week. She was seen at Dr. Snyder office, continues on GDMT regimen. They are planning a heart monitor for her. She states overall she is doing well. Walking and getting around withou t issue. Denies chest pain, SOB, leg swelling, or incisional issues. She is pleased with her care at [facility], but wishes to do any further follow up in [place] with Dr. Brumfield's office. Objective: Physical exam deferred due to virtual visit-with audio (telephone) capabilities only Labs/Imaging/Testing: reviewed EMR, see A&P for pertinent diagnostic results related to office visit Disclaimer INFORMED CONSENT:The nature and purpose of the proposed treatment or procedure have been discussed.The risks and benefits of the proposed treatment [...] This note may have been dictated using [employer] Practice Edition 2.6 and/or [employer] Voice Recognition Feature. The document was proofread, however unrecognized voice recognition hiv/aids care nurse errors may be present. documented in this [facility]09-12-2023 History of Present illness Narrative* GRIS Peguero CNP - 01/09/2023 10:00 AM EDT Images from the original note were not included. [facility]: [facility] [employer] [facility] [address] [facility] [address] Dept: [phone] Dept Loc: [phone] Visit type: Established patient Reason for Visit: Post-op Assessment and Plan 1. 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 Ischemic cardiomyopathy 3. Mitral valve insufficiency, unspecified etiology 4. S/P CABG (coronary artery bypass graft) 5. S/P MVR (mitral valve repair) 12/14/22: CABGx2 (PEDRAZA LAD, SVG to OM1) MVRepair (28 ring) LAAL with atriclip with Dr. Lai POD#26 Day from Discharge (12/30/22) #10 -Reviewed [...] exertion. Patient with significant cardiac history: CAD (ME-October 2018-NEGRO to LADand LCx; November 2018-NEGRO to RCA), paroxysmal atrial [...] is staying with her daughter & son-in-law. Sheis doing a 5min walk 3x daily and [...] change, appetite change and fatigue. Negative for diaphoresisand fever. Respiratory: Negative for cough, shortness of [...] tablet (25 mg) by mouth daily. Do notcrush or chew. 30 tablet 2 NON FORMULARY Eye health complex omeprazole (PriLOSEC) [address] capsule Take 40 mg by mouth in the morning. potassium chloride (Klor-Con) 20 MEQ packet Take 20 mEq by mouth daily. Hold while not taking lasix(3 days). Restart to take daily on 01/02/23. 30 packet 2 spironolactone (Aldactone) 25 MG tablet Take 1 tablet (25 mg) by mouth daily. Do not start before December 31, 2022. 30 tablet 2 timolol (Timoptic) 0.5 % ophthalmic solution Administer 1 drop into the left eye in the morning and1 drop in the evening. acetaminophen (Tylenol) 500 [...] (5 mg) by mouth every 6 hours asneeded for moderate pain (4-6) or severe pain (7-10) for up to 5 days. 20 tablet 0 No facility-administered medications prior to visit. Past Medical History: Diagnosis Date Anxiety Atherosclerosis of coronary artery bypass graft of morongo heart without angina pectoris Chronic kidney disease GERD (gastroesophageal reflux disease) Hypertension Ischemic cardiomyopathy Mobitz type II atrioventricular block STEMI (ST elevation myocardial infarction) ([facility]) 11/16/2018 Stroke ([facility]) Vertigo Objective Patient reported: No flowsheet data [...] pertinent diagnostic results related to office visit RGIS Peguero CNP documented in this [facility]09-02-2023 NotePatient Choice Patient Name: DAYANA QUIÑONES Date of : 1940 All Providers Sent Referral Name: [facility] Phone: [phone] Address: [address] [place], [place] [address]-02-2023 Miscellaneous Notes* Care Coordination - Unknown Case Management - 12/30/2022 3:03 PM EDT Patient Choice Patient Name: DAYANA QUIÑONES Date of : 1940 All Providers Sent Referral Name: [facility] Phone: [phone] Address: [address] [place] [address] * Home Care - Quin Mondragon RN - 12/29/2022 11:32 AM EDT Start PACC Note Home Health Referral Educated patient and dtr on Home Care and services available. Patient offered choice of available HHC and agreeable to RN PT OT services with [facility]. Care Types: None Isolation [...] is noted as yes - consider a ACID PLANT HELPER evaluation once the patient returns home. START PATIENT REGISTRATION INFORMATION Order Information Order Signing Physician: Danielle Lai MD Service Ordered RN ?: Yes Service Ordered PT ?: Yes Service Ordered OT ?: Yes Service Ordered ST ?: No Service Ordered ACID PLANT HELPER?:No Service Ordered NYLON WINDER?: No Following Physician: Dr Danielle Lai Following Physician Overseeing Physician: Dr Danielle Lai (Required for Residents only) Agreeable to Follow? Yes Date/Time of Call 12/29/22 11:32 AM Care Coordination Same Day SOC?: No Primary Care Physician: Amalia Avery MD Primary Care Physician Primary Care Physician Address: [address] [place] [address] / [facility] [address] Visit Instructions: N/A Service Discharge Location Type: Home with Home Health Care Service Facility Name: N/A Service Floor Facility: N/A Service Room No: N/A Demographics Patient Last Name: Nuria Patient First Name: Dayana Language/Communication Barrier: n/a Service Address: [address] [place] [address] Service City: [facility] ST: [place] Service ZIP: [address] Service Other phone numbers: Telephone Information: Emergency Contact: Extended Emergency Contact Information Primary Emergency Contact: Radha Huizar Mobile Relation: Daughter Secondary Emergency Contact: Masha Dickey Mobile Relation: Daughter Admission Information Admit Date: 12/14/2022 Patient status at discharge: Inpatient Admitting Diagnosis Atherosclerotic heart disease of morongo coronary artery without angina pectoris[I25.10] Nonrheumatic aortic (valve) stenosis [I35.0] CAD in morongo artery [I25.10] Caregiver Information Caregiver First Name: n/a Caregiver Last Name: n/a Caregiver Relationship to Patient n/a Caregiver Phone Number: n/a Caregiver Notes: N/A Repligen-Tech List No END PATIENT REGISTRATION INFORMATION Pt Home Health goal rehab at [facility] home COVID Status 1. Do you have [...] denied - going to stay with dtr-Juani [phone] Discharge Date: 12/30/22 Referral Source-PACC: (Hospital/Unit): [facility] / T1-114/T1-114 A End PACC Note * Care Coordination - Jessica Jaramillo RN - 12/29/2022 11:19 AM EDT Images from the original note were not included. Care Management Progress Note P2P completed and upheld, offered appeal but will take 72 business hours. Spoke with patient's daughter Juani over the phone, based on updated PT recommendations agreeable topatient discharging to her home with [facility]. DME orders received, MURGUIA PACC updated, plan [...] RN 12/15/2022 10:02 AM 12/19/2022 Jan Rebollar PROFESSOR OF CHEMICAL ENGINEERING - [facility] 12/14/2022 1:03 PM 12/19/2022 Jan Rebollar PROFESSOR OF CHEMICAL ENGINEERING - [facility] 12/14/2022 1:00 PM 12/21/2022 Jim Florian PROFESSOR OF CHEMICAL ENGINEERING - [facility] 12/14/2022 5:47 AM Length of Stay (Days): 15 GMLOS: 5.9 * Care Coordination - Jessica Jaramillo RN - 12/28/2022 2:38 PM EDT Notified by [facility] liaison patient insurance [employer] Medicare has denied admission to [facility] but offering aP2P. CTS SENIOR MOBILE DEVELOPER attempted to schedule [id number] to leave a message. Updated patient at bedside and daughter Juani over the phone, discussed potential back up plan with each as well. Will await P2P. * Care Coordination - Jessica Jaramillo RN - 12/28/2022 10:22 AM EDT Images from the original note were not included. Care Management Progress Note Patient remains on HLU s/p MV repair and CABG x 2 POD # 14. Medically ready for discharge, precert to [facility] pending. Discharge Milestones and Delays Expected Date/Time: [...] RN 12/15/2022 10:02 AM 12/19/2022 Jan Rebollar PROFESSOR OF CHEMICAL ENGINEERING - BRANCH OFFICE MANAGER 12/14/2022 1:03 PM 12/19/2022 Jan Rebollar APRN - BRANCH OFFICE MANAGER 12/14/2022 1:00 PM 12/21/2022 Jim Florian PROFESSOR OF CHEMICAL ENGINEERING - BRANCH OFFICE MANAGER 12/14/2022 5:47 AM Length of Stay (Days): 14 GMLOS: 5.9 * Care Coordination - Jessica Jaramillo RN - 12/27/2022 10:34 AM EDT Images from the original note were not included. Care Management Progress Note Patient remains on HLU s/p MV repair and CABG x 2 POD # 13. Precert started to [facility] 12/26. Discharge Milestones and Delays Expected Date/Time: [...] 10:02 AM 12/19/2022 Jan Rebollar APRN - BRANCH OFFICE MANAGER 12/14/2022 1:03 PM 12/19/2022 Jan Rebollar APRN - BRANCH OFFICE MANAGER 12/14/2022 1:00 PM 12/21/2022 Jim Florian APRN - BRANCH OFFICE MANAGER 12/14/2022 5:47 AM Length of Stay (Days): 13 GMLOS: 5.9 * Care Coordination - Jessica Jaramillo RN - 12/26/2022 11:51 AM EDT Images from the original note [...] 10:02 AM 12/19/2022 Jan Rebollar APRN - BRANCH OFFICE MANAGER 12/14/2022 1:03 PM 12/19/2022 Jan Rebollar APRN - BRANCH OFFICE MANAGER 12/14/2022 1:00 PM 12/21/2022 Jim Florian APRN - BRANCH OFFICE MANAGER 12/14/2022 5:47 AM Length of Stay (Days): 12 GMLOS: 5.9 * Care Coordination - Jessica Jaramillo RN - 12/25/2022 1:06 PM EDT Images from the original note were not included. Care Management Progress Note Patient remains on HLU s/p MV repair and CABG x 2 POD # 11. On Ra, BP on low side but stable, pacedrhythm, awaiting speech re-eval, and PTOT recommending IPR. [...] 10:02 AM 12/19/2022 Jan Rebollar APRN - BRANCH OFFICE MANAGER 12/14/2022 1:03 PM 12/19/2022 Jan Rebollar APRN - BRANCH OFFICE MANAGER 12/14/2022 1:00 PM 12/21/2022 Jim Florian APRN - BRANCH OFFICE MANAGER 12/14/2022 5:47 AM Length of Stay (Days): 11 GMLOS: 5.9 * Care Coordination - Jessica Jaramillo RN - 12/22/2022 12:16 PM EDT Images from the original note were not included. Care Management Progress Note Patient remains on HLU s/p MV repair and CABG x 2 POD # 8. VSS, on RA, V-paced on tele, titrate BB,heart failure signed off, MBSS completed-speech to complete [...] 10:02 AM 12/19/2022 Jan Rebollar APRN - BRANCH OFFICE MANAGER 12/14/2022 1:03 PM 12/19/2022 Jan Rebollar APRN - JOELLE 12/14/2022 1:00 PM 12/21/2022 Jim Florian APRN - BRANCH OFFICE MANAGER 12/14/2022 5:47 AM Length of Stay (Days): 8 GMLOS: 5.9 * Care Coordination - Jessica Jaramillo RN - 12/21/2022 11:40 AM EDT Images from the original note [...] 10:02 AM 12/19/2022 Jan Rebollar APRN - BRANCH OFFICE MANAGER 12/14/2022 1:03 PM 12/19/2022 Jan Rebollar APRN - BRANCH OFFICE MANAGER 12/14/2022 1:00 PM 12/21/2022 Jim Florian APRN - BRANCH OFFICE MANAGER 12/14/2022 5:47 AM Length of Stay (Days): 7 GMLOS: 5.9 * Care Plan - Kenton Smith RN - 12/20/2022 11:45 AM EDT Problem: Pain - Adult Goal: Verbalizes/displays adequate [...] Interventions Goal: Assess Nutritional Intake Outcome: Progressing * Care Coordination - Naheed Fernandez RN - 12/20/2022 10:49 AM EDT Images from the original note were not included. Care Management Progress Note Chart reviewed. Pt remains on HLU s/p CABGx2. TANDEM MILL OPERATOR following, recommending NPO, dobhoff in place, repeat MBSS at end of week. Ongoing medication adjustments. Discharge Plan: PT recommending IPR, pt wants daughters to decide facility, spoke with daughter Juani over the phone, Radha and Juani would like referral to [facility]. Referral placed in [facility], liaison notified. TCC [...] Length of Stay (Days): 6 GMLOS: 5.9 * Care Coordination - Naheed Fernandez RN - 12/19/2022 3:06 PM EDT Images from the original note were not included. Care Management Progress Note Chart reviewed. Pt remains on HLU s/p CABGx2. TANDEM MILL OPERATOR following, dobhoff while NPO. Discharge Plan: PT [...] 1:00 PM 12/21/2022 Jim Florian APRN - BRANCH OFFICE MANAGER 12/14/2022 5:47 AM Length of Stay (Days): 5 GMLOS: 5.9 * Care Coordination - Jessica Jaramillo RN - 12/15/2022 2:28 PM EDT Care Managment Initial Assessment Date: 12/15/2022 Patient Name: Dayana Quiñones : 1940 Patient Information Source of Information: Patient, 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 Name/Contact Information: daughter Juani at bedside Cognition/Language: WFL - Within Functional Limits Permission given to speak with patient packaging sales representative/caregiver as indicated: Yes Confirmation of Payer with patient/family: Yes Payer Name: Erica [place]: No Confirmation of Primary Care Physician: Confirmed [...] Plan Patient expects to be discharged to: daughter Juani's house in [place] Discharge Planning Actions: Continue to follow Patient's [...] therapy-daughter aware of both options and agreeable. MURGUIA following. Jessica Jaramillo RN * Home Care - Quin Mondragon RN - 12/14/2022 10:28 AM EDT Operating Theatre Technician following case for Discharge Needs. * Op Note - Danielle Lai MD - 12/14/2022 7:07 AM EDT Date of service: 12/14/2022 Preoperative diagnosis: Coronary [...] Left atrial appendage clip placement Surgeon: Danielle Lai MD Log Driver: Genesis Chacon SA Estimated blood loss: Unable [...] placed supine on the operating table. An endotrachealtube was placed, an arterial line was placed, [...] aorta was cross-clamped. The superior and inferior v ekaterina cava were encircled snared with umbilical tapes [...] to the right to fully expose the leftatrial appendage. A 35 mm clip was deployed [...] pledgets were visible when the valve was seatedprior to securing the Cor Knots. The intra-atrial [...] mild MR post mitral ring placement Danielle Lai MD Cardiothoracic Surgery documented in this [facility]09-02-2023 Nurse Note* Lisa Bustamante RN - 12/30/2022 2:48 PM EDT RN reviewed discharge instructions and medications with patient, and patient's family, at the bedside. Both patient and patient's family verbalized understanding and stated no further questions at this time. IV removed & belongings packed. Patient dressed and wheeled out to car for discharge home now. documented in this [facility]09-02-2023 NoteDischarge Summary: Cardiothoracic Surgery Dayana Quiñonse, 82 y.o., 1940 ADMIT DATE: 12/14/2022 DISCHARGE DATE: 12/30/2022 DISCHARGING SURGEON: Danielle Lai MD, Office Number: [phone] PRIMARY CARE PHYSICIAN: Amalia Avery MD TREATMENT TEAM: Osteopathic Physician: Dr. Brumfield VISIT STATUS: Admission CODE STATUS: Full Code SURGERY: 12/14/22: CABGx2 (PEDRAZA LAD, SVG to OM1) MVRepair (28 ring) LAAL with atriclip with Dr. Lai HOSPITAL COURSE: 82-year-old female seen in outpatient setting for surgical evaluation due to progressive shortness of breath with exertion. Patient with significant cardiac history: CAD (ME-October 2018-NEGRO to LAD and LCx; November 2018-NEGRO [...] CKD, Mild CKD GERD S/p PPM 08/02/2018 ([facility]) Hx Stroke Paroxsymal Afib/mobitz type II AV [...] Your Medications [facility] [address] [place] [address] [address] [facility] [address] [facility] [place] [address] furosemide 40 MG tablet potassium chloride 20 MEQ packet These medications were sent to [address] [address] acetaminophen 500 MG tablet metoprolol succinate XL 25 MG 24 hr tablet oxyCODONE 5 MG immediate release tablet spironolactone 25 MG tablet DIET: Adult diet Easy to Chew BMI CLASSIFICATION:Overweight (BMI 25.0-29.9) ACTIVITY: activity as tolerated, strict post-sternotomy/post-thoracotomy sternal precautions as outlined in the home going instructions, and no driving or operating heavy jj (more content not included)...[facility] 12-30-2022 Hospital course Narrative* Kenton Lorenzana APRN - JOELLE - 12/30/2022 6:35 AM EDT Discharge Summary: Cardiothoracic Surgery Dayana Quiñones, 82 y.o., 1940 ADMIT DATE: 12/14/2022 DISCHARGE DATE: 12/30/2022 DISCHARGING SURGEON: Danielle Lai MD, Office Number: [phone] PRIMARY CARE PHYSICIAN: Amalia Avery MD TREATMENT TEAM: Osteopathic Physician: Dr. Brumfield VISIT STATUS: Admission CODE STATUS: Full Code SURGERY: 12/14/22: CABGx2 (PEDRAZA LAD, SVG to OM1) MVRepair (28 ring) LAAL with atriclip with Dr. Lai HOSPITAL COURSE: 82-year-old female seen in outpatient setting for surgical evaluation due to progressive shortness of breath with exertion. Patient with significant cardiac history: CAD (ME-October 2018-NEGRO to LAD and LCx; November 2018-NEGRO to RCA), paroxysmal atrial fibrillation, HFrEF-30%, 2+ MR, Surgery was discussed and patient consented to intervention. She underwent surgery on 12/14/22. She required vasopressorsupport for multiple days post-op. Eventually weaned off and started on Heart Failure GDMT. She hadswallowing difficulties and had a Dobhoff with tube [...] TRINI on CKD GERD S/p PPM 08/02/2018 ([facility]) Hx Stroke Paroxsymal Afib/mobitz type II AV [...] for moderate pain (4-6) or severe pain (7-10)for up to 5 days. potassium chloride 20 [...] Your Medications These medications were sent to [facility] [place], [place] - [address] [place] [address] furosemide 40 MG tablet potassium chloride 20 MEQ packet These medications were sent to [facility] [address] [place] [address] [address] [facility] [address] [facility] [address] acetaminophen 500 MG tablet metoprolol succinate XL [...] call with questions, activity, restrictions, and limitations wasprovided to the patient or their family. We greatly appreciate the opportunity to participate in the care of your patient. If you have any additional questions or concerns regarding any aspects of their care or management please do not hesitate to contact us. SIGNED: GRIS Lal CNP 12/30/2022, 12:18 PM documented in this [facility]09-01-2023 History of Present illness Narrative* OMARI Sosa - 12/29/2022 2:04 PM EDT Images from the original note were not included. Speech-Language Pathology SPEECH LANGUAGE PATHOLOGY [facility] Dysphagia Treatment Note Patient Name: Dayana Quiñones [...] liquids. Speech therapy to follow. Continue acute TANDEM MILL OPERATOR therapy per initial plan of care and established goals. Recommend Easy to chew solids and Thin liquids and meds as tolerated and the following precautions: - Slow rate of intake - Small bites/sips - Swallow x 2 per bolus D/C Recommendations: ongoing speech therapy at next level of care Education Education Given: swallowing strategies, diet recommendations, education of oropharyngeal/oral motorexercise for strengthening Given To: patient and RN Response: verbalizes understanding Goals Patient Stated Goal: To go home Encounter Problems Encounter Problems (Active) Swallowing Patient will complete oropharyngeal strengthening exercises to improve swallow function (Progressing) Start: 12/17/22 Expected End: 01/01/23 Patient will tolerate the least restrictive diet consistency to allow for safe consumption of dailymeals (Progressing) Start: 12/18/22 Expected End: 01/01/23 Patient [...] Expected End: 12/30/22 Resolved: 12/17/22 Therapy Time TANDEM MILL OPERATOR Individual Minutes Time In: 1340 Time Out: 1400 Minutes: 20 OMARI Sosa * Jovi Kruger, PRODUCTION MACHINIST - 12/29/2022 11:37 AM EDT Physical Therapy Facility/Department: [facility] Physical Therapy Daily Treatment Note NAME: Dayana [...] x2 daily. Pt able to stand from reclinerand toilet w/ CGA for safety only today. Pt able to ambulate w/ rollator w/o LOB or path deviationsnoted. Pt able to negotiate x4 steps w/ step-to pattern; CGA for balance. Pt should progress to Home w/ 24hr assist and Home PT post Disch. Performance Deficits/Impairments: Decreased functional mobility , Decreased ADL status, Decreased cognition, Decreased safe awareness, Decreased strength, Decreased endurance, Decreased posture, Decreased balance Decision Making: Medium Complexity Patient Diagnosis(es): The primary encounter diagnosis was 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 A diagnosis of Coronary artery disease involving coronary bypass graft of morongo heart with angina pectoris with documented spasm ([facility]) was also pertinent to this visit. has a past medical history of Anxiety, Atherosclerosis of coronary artery bypass graft of morongo heart without angina pectoris, Chronic kidney disease, GERD (gastroesophageal reflux disease), Hypertension, Ischemic cardiomyopathy, Mobitz type II atrioventricular block, STEMI (ST elevation myocardial infarction) ([facility]) (11/16/2018), Stroke (HCC), and Vertigo. has a past surgical history [...] side step/step-to pattern; was more comfortable w/ sidestep pattern and BUE support on rail. Balance [...] in order to improve independence and prepare forout of bed mobility. (Not Addressed) Start: 12/19/22 Expected End: 01/02/23 Patient will complete sit to stand transfer with supervision to none in order to improve safety andprepare for out of bed mobility. (Progressing) Start: [...] precautions. Therapy Time Individual Co-treatment Time In 841 Time Out 921 Minutes 40 Timed Code Treatment Minutes: 40 Minutes (FA x2; GT x1) Jovi Kruger PTA * Janel Mayberry APRN - JOELLE - 12/29/2022 11:28 AM EDT Images from the original note were not included. Cardiothoracic Surgery/[facility] Progress Note PATIENT NAME: Dayana Quiñones DATE: 12/29/22 HPI: 82-year-old female seen in outpatient setting for surgical evaluation due to progressive shortness of breath with exertion. Patient with significant cardiac history: CAD (ME-October 2018-NEGRO to LAD and LCx; November 2018-NEGRO to RCA), paroxysmal atrial fibrillation, HFrEF-30%, 2+ MR, Surgery was discussed and patient consented to intervention. Surgery/Procedure: 12/14/22: CABGx2 (PEDRAZA LAD, SVG to OM1) MVRepair (28 ring) LAAL with atriclip with Dr. Lai Interval History: 12/29/22, POD# 15: VSS overnight, Vpaced rhythm, on RA. She is resting in chair, continues to improve daily. Denied IPR precert- discussed with patient and daughter, will plan for d/c home tomorrow. Review of Systems Constitutional: Positive for activity change, appetite change and fatigue. Negative for diaphoresisand fever. 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 Osteopathic Physician: Dr. Brumfield * Jovi Kruger, ROSALVA - 12/28/2022 2:56 PM EDT Physical Therapy Facility/Department: [facility] Physical Therapy Daily Treatment Note NAME: Dayana [...] The primary encounter diagnosis was 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 A diagnosis of Coronary artery disease involving coronary bypass graft of morongo heart with angina pectoris with documented spasm (HCC) was also pertinent to this visit. has a past medical history of Anxiety, Atherosclerosis of coronary artery bypass graft of morongo heart without angina pectoris, Chronic kidney disease, GERD (gastroesophageal reflux disease), Hypertension, Ischemic cardiomyopathy, Mobitz type II atrioventricular block, STEMI (ST elevation myocardial infarction) ([facility]) (11/16/2018), Stroke ([facility]), and Vertigo. has a past surgical history [...] today d/t Pt just ambulating in AM. [id number], [id number] (30min total) Subjective Subjective: Pt in chair, [...] Call light within reach, Gait belt, Patient atrisk for falls, Left in chair, No alarms engaged upon entry into room, Nurse notified Outcomes Score AM-PAC Score AM-PAC Inpatient Mobility Raw Score (No Stairs) : 15 Goals Encounter Problems Encounter Problems (Active) Cardiac Patient will perform bed mobility with supervision in order to improve independence and prepare forout of bed mobility. (Not Addressed) Start: 12/19/22 Expected End: 01/02/23 Patient will complete sit to stand transfer with supervision to none in order to improve safety andprepare for out of bed mobility. (Progressing) Start: [...] (TP x1; GT x1) Jovi Kruger PTA * OMARI Maciel - 12/28/2022 10:37 AM EDT Images from the original note were not included. Speech-Language Pathology SPEECH LANGUAGE PATHOLOGY [facility] Dysphagia Treatment Note Patient Name: Dayana Quiñones [...] a total of 9. Patient completed the [place] a total of 9. Patient reports completing effortful swallow in sets of 5 x 3 times daily. Instructed the patient to increase repetitions to 10 daily x 3. Patient is agreeable to same. Plan & Recommendations Plan: Continue acute TANDEM MILL OPERATOR therapy per initial plan of care and [...] consistency to allow for safe consumption of dailymeals (Progressing) Start: 12/18/22 Expected End: 01/01/23 Patient [...] Expected End: 12/30/22 Resolved: 12/17/22 Therapy Time TANDEM MILL OPERATOR Individual Minutes Time In: 1015 Time Out: 1035 Minutes: 20 OMARI Maciel * Janel Mayberry APRN - BRANCH OFFICE MANAGER - 12/28/2022 6:30 AM EDT Images from the original note were not included. Cardiothoracic Surgery/[facility] Progress Note PATIENT NAME: Dayana Quiñones DATE: 12/28/22 HPI: 82-year-old female seen in outpatient setting for surgical evaluation due to progressive shortness of breath with exertion. Patient with significant cardiac history: CAD (ME-October 2018-NEGRO to LAD and LCx; November 2018-NEGRO to RCA), paroxysmal atrial fibrillation, HFrEF-30%, 2+ MR, Surgery was discussed and patient consented to intervention. Surgery/Procedure: 12/14/22: CABGx2 (PEDRAZA LAD, SVG to OM1) MVRepair (28 ring) LAAL with atriclip with Dr. Lai Interval History: 12/28/22, POD# 14: VSS overnight, V-paced rhythm, on RA. She is resting up in chair, doing well with no acute concerns. She is medically ready for discharge pending precert. Review of Systems Constitutional: Positive for activity change, appetite change and fatigue. Negative for diaphoresisand fever. 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 Osteopathic Physician: Dr. Brumfield * Jovi Kruger, PRODUCTION MACHINIST - 12/27/2022 4:37 PM EDT Physical Therapy Facility/Department: [facility] Physical Therapy Daily Treatment Note NAME: Dayana Quiñones : 1940 Date of Service: 12/27/2022 Discharge Recommendations: IP Rehab PT Equipment Recommendations Equipment Needed: No Other: tbd Assessment Requires PT Follow-Up: Yes Assessment: Pt slowly progressing towards PT goals. Pt required MIn x1 to stand from chair and fromtoilet today. 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 A diagnosis of Coronary artery disease involving coronary bypass graft of morongo heart with angina pectoris with documented spasm ([facility]) was also pertinent to this visit. has a past medical history of Anxiety, Atherosclerosis of coronary artery bypass graft of morongo heart without angina pectoris, Chronic kidney disease, GERD (gastroesophageal reflux disease), Hypertension, Ischemic cardiomyopathy, Mobitz type II atrioventricular block, STEMI (ST elevation myocardial infarction) ([facility]) (11/16/2018), Stroke ([facility]), and Vertigo. has a past surgical history [...] she has anxiety/fear about hurting my chest incision, and asked several times(~ 8) during P&C Ex if they will hurt my surgery Subjective Subjective: Pt in chair, agreeable to PT. nsg cleared pt for PT. Pt requesting to use bathroom before ambulation in hallway today Patient Stated Goal: to get stronger and go to rehab Pain Assessment Pain Assessment: (pt only notes arthritic pain during UE ROM Ex.) Cognition/Orientation Overall Cognitive Status: WF Arousal/Alertness: Appropriate responses to stimuli Following Commands: [...] Call light within reach, Gait belt, Patient atrisk for falls, Left in chair, Nurse notified, No alarms engaged upon entry into room Outcomes Score AM-PAC Score AM-PAC Inpatient Mobility Raw Score (No Stairs) : 15 Goals Encounter Problems Encounter Problems (Active) Cardiac Patient will perform bed mobility with supervision in order to improve independence and prepare forout of bed mobility. (Not Addressed) Start: 12/19/22 Expected End: 01/02/23 Patient will complete sit to stand transfer with supervision to none in order to improve safety andprepare for out of bed mobility. (Progressing) Start: [...] TP x1; GT x1) Jovi Kruger PTA * Rosalia Ferro, TANDEM MILL OPERATOR - 12/27/2022 11:21 AM EDT Images from the original note were not included. Speech-Language Pathology SPEECH LANGUAGE PATHOLOGY [facility] Dysphagia Treatment Note Patient Name: Dayana Quiñones Evaluation Date: 12/27/2022 Date of : 1940 Admission Date: 12/14/2022 5:46 AM Age: 82 y.o. Room/Bed: T1-114/T1-114 A Subjective Patient alert and cooperative. Seen upright in bedside chair. No visitors at bedside. Spoke with RN Renny who cleared pt for treatment. Pain: RN managing pain. PPE Worn: gloves Objective & Assessment Dysphagia Treatment # of Activities: 1 Dysphagia Activity 1: Assess toelrance of upgraded diet Dysphagia Activity 2: Instruct swallow strategies Dysphagia Activity 3: Assess dual textured menu items Discussed the results and recommendations from the MBSS completed 12/26/2022. Reinforced need to usesmall sip size with thin liquids. Reinforced effortful swallow x 2 technique. Assessed patient withdual textured menu item (cold cereal + milk). Patient tolerated same without evidence of airway penetration. Patient able to complete previously instructed oropharyngeal strengthening exercises. Same had beenerased from the white board. Re-wrote same on the white board for patient cue to complete exercisesdaily. Patient shows concern for eating the wrong item or swallowing the wrong way. Provided encouragementand reinforced patient progress with the dysphagia plan of care thus far. Answered all patient questions. Patient demonstrates good comprehension. Will attempt to assess patient taking PO meds with water next session. Currently taking same in an applesauce bolus. Plan & Recommendations Plan: Diet has not been upgraded in Epic. Please change the diet to Easy to Chew with THIN Liquids. Continue acute TANDEM MILL OPERATOR therapy per initial plan of care and [...] consistency to allow for safe consumption of dailymeals (Progressing) Start: 12/18/22 Expected End: 01/01/23 Patient [...] Expected End: 12/30/22 Resolved: 12/17/22 Therapy Time TANDEM MILL OPERATOR Individual Minutes Time In: 1035 Time Out: 1115 Minutes: 40 OMARI Maciel * Rossi Bell APRN - JOELLE - 12/27/2022 11:07 AM EDT Images from the original note were not included. [facility] Wound Care Progress Note Dayana Quiñones AGE: 82 y.o. GENDER: female : 1940 Subjective: HISTORY of PRESENT ILLNESS HPI Dayana Quiñones is a 82 y.o. female who presents for a wound follow up. HPI: Ms. Quiñones is a 82-year-old female seen in outpatient setting for surgical evaluation due to progressive shortness of breath with exertion. Patient with significant cardiac history: CAD (ME-October 2018-NEGRO to LAD and LCx; November 2018- NEGRO to RCA), paroxysmal atrial fibrillation, HFrEF-30%, 2+ MR. Patient underwent CABG, MVR, left atrial appendage and ELA on 12/14/22. Wound Care consulted for right chest and left leg. Patient sitting up in chair at time of visit. PAST MEDICAL HISTORY Past Medical History: Diagnosis Date Anxiety Atherosclerosis of coronary artery bypass graft of morongo heart without angina pectoris Chronic kidney disease GERD (gastroesophageal reflux disease) Hypertension Ischemic cardiomyopathy Mobitz type II atrioventricular block STEMI (ST elevation myocardial infarction) (HCC) 11/16/2018 Stroke ([facility]) Vertigo PAST SURGICAL HISTORY Past Surgical History: [...] into the left eye in the morning and1 drop in the evening. apixaban (Eliquis) 5 MG tablet Take 5 mg by mouth 2 times daily. REVIEW OF SYSTEMS Pertinent items are noted in HPI. Objective: BP 99/58 Pulse 77 Temp 36.4 C (97.6 F) (Temporal) Resp 18 Ht 1.6 m (5' 3) Wt 76.6 kg (168 lb 14 oz) [...] tear - Apply skin prep then leave CENTRAL OFFICE INSTALLER daily and PRN Left calf: Surgical - Leave CENTRAL OFFICE INSTALLER - monitor for any s/s of infection Nutritional support Wound Care to follow Recommend to follow up at [facility] wound care center after hospital discharge. Any questions or concerns please secure chat [facility] wound/ostomy. Thank you for the consult! I personally obtained the chang and critical portions of the history and physical exam. I reviewed the labs, imaging studies, and electronic medical record. I reviewed the chart documentation and discussed the patient with treatment team members. I have edited the note to reflect my clinical findingsand my assessment and plan. Please note, the time of this note does not reflect the time I saw thispatient today, but the time of this documentaton. [...] Decision making for today's visit and to reflectmy own independent evaluation of this patient. * Janel GRIS Sherman CNP - 12/27/2022 6:11 AM EDT Images from the original note were not included. Cardiothoracic Surgery/[facility] Progress Note PATIENT NAME: Dayana Quiñones DATE: 12/27/22 HPI: 82-year-old female seen in outpatient setting for surgical evaluation due to progressive shortness of breath with exertion. Patient with significant cardiac history: CAD (ME-October 2018-NEGRO to LAD and LCx; November 2018-NEGRO to RCA), paroxysmal atrial fibrillation, HFrEF-30%, 2+ MR, Surgery was discussed and patient consented to intervention. Surgery/Procedure: 12/14/22: CABGx2 (PEDRAZA LAD, SVG to OM1) MVRepair (28 ring) LAAL with atriclip with Dr. Lai Interval History: 12/27/22, POD# 13: VSS overnight, V-paced rhythm, on RA. Resting in chair, no acute concerns today.MBS completed yesterday, okay to advance diet. Review of Systems Constitutional: Positive for activity change, appetite change and fatigue. Negative for diaphoresisand fever. Respiratory: Negative for cough, shortness of [...] TRINI on CKD GERD S/p PPM 08/02/2018 (EXENDIS) Hx Stroke Paroxsymal Afib/mobitz type II AV block Anxiety Dysphagia Post operative Pulm Management: Normal Post-operative Course Acute blood loss anemia/consumptive thrombocytopenia Plan: Patient Status: Telemetry Continue current med regimen - ASA/Statin - Toprol-XL 50 mg daily - Lasix 40mg & K supp - Eliquis 5mg BID (preop med for Afib) - Entresto, Farxiga, & Aldactone TANDEM MILL OPERATOR following - [facility] yesterday - Recs: Easy to chew & [...] EF: 30% (12/18/22) Blood Conservation: Transfused post-op. Osteopathic Physician: Dr. Brumfield * Nathalie Hackett, RD - 12/26/2022 3:25 PM EDT Nutrition Assessment Type and Reason for Visit: [...] aging) Fluid Accumulation: No significant fluid accumulation Manager Terminal Strength: Not Performed Nutrition Assessment: Pt with PMH including anxiety, CAD, CKD, GERD, HTN, ischemic cardiomyopathy, Mobitz type II atrioventricular block, STEMI, stroke, paroxysmal atrial fibrillation, HFrEF-30%, 2+ MR, and vertigo presented on 12/14/22 for CABGx2 and MVRepair. Extubated on POD#1 (12/15). +Dysphonia. TANDEM MILL OPERATOR following with finding of dysphagia, initally recommended NPO with DHT placed and TF intitated on 12/19. Passed speecheval for soft and bite sized/mildly thick liquids on 12/22. TF cancelled 12/25. Continued on soft andbite sized/mildly thick liquids diet today. Pt interview is brief as transportation arrives to takept for MBSS. She indicates she is eating [...] On: Kcal/kg Weight Used for Energy Requirements: Reynolds Weight for Energy Calculation (kg): 52.3 kg Total Energy Requirements (kcals/day): 1308-1569kcals/day Weight Used for Protein Requirements: Reynolds Weight in Kg Used for Protein Requirements: [...] - Soft and Bite Sized; Mildly Thick (Machias) Current Oral Intake Average Meal Intake: (tolerating some food items on current diet) Average Supplements Intake: None Ordered Anthropometric Measures: Height: 160 cm (5' 3) Current Body Weight: 76.4 kg (168 lb 6.9 oz) (standing scale 12/26) Weight Source: Not Specified Admission Body Weight: 76.7 kg (169 lb) (stated 12/14) Usual Body Weight: 77.6 kg (171 lb) (only weight noted per chart review is from 11/14/22: 171#) % Weight Change (Calculated): 0.6 Reynolds Body Weight (lbs) (Calculated): 115 lbs Reynolds Body Weight (Kg) (Calculated): 52 kg % Reynolds Body Weight (Calculated): 149.6 % BMI (kg/m2) [...] to determine Nathalie Hackett RD, LD Contact: *[phone] or via [employer] chat * Dania Granados, PRODUCTION MACHINIST - 12/26/2022 2:38 PM EDT Physical Therapy Facility/Department: [facility] Physical Therapy Daily Treatment Note NAME: Dayana Quiñones : 1940 Date of Service: 12/26/2022 Discharge Recommendations: IP Rehab PT Equipment Recommendations Equipment Needed: No Other: tbd Assessment Assessment: Overall, pt. 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 A diagnosis of Coronary artery disease involving coronary bypass graft of morongo heart with angina pectoris with documented spasm ([facility]) was also pertinent to this visit. has a past medical history of Anxiety, Atherosclerosis of coronary artery bypass graft of morongo heart without angina pectoris, Chronic kidney disease, GERD (gastroesophageal reflux disease), Hypertension, Ischemic cardiomyopathy, Mobitz type II atrioventricular block, STEMI (ST elevation myocardial infarction) ([facility]) (11/16/2018), Stroke ([facility]), and Vertigo. has a past surgical history [...] incision/surgery and moobility is encouraged during recovery andto get back to healty lifestyle. MANAS Lawson cleared Patient Stated Goal: Pain Assessment Pain Assessment: No/denies pain (feeling good) Cognition/Orientation Overall Cognitive Status: WFL Arousal/Alertness: Appropriate responses to stimuli Following Commands: Follows multistep commands with increased time Attention Span: (SPOKANE noted) Memory: (overall, pt. compliant with sternal [...] pt. able to self manage bebe-care with setup Exercises Comments: P&C all X10- focus on [...] Call light within reach, Gait belt, Patient atrisk for falls, Left in chair, Nurse notified, No alarms engaged upon entry into room Restraints Restraints Initially in Place: No AM-PAC Score AM-PAC Inpatient Mobility Raw Score (No Stairs) : 15 Goals Encounter Problems Encounter Problems (Active) Cardiac Patient will perform bed mobility with supervision in order to improve independence and prepare forout of bed mobility. (Progressing) Start: 12/19/22 Expected End: 01/02/23 Patient will complete sit to stand transfer with supervision to none in order to improve safety andprepare for out of bed mobility. (Progressing) Start: [...] 1313 Time Out 1345 Minutes 32 Dania Granados, PRODUCTION MACHINIST * Chery Hughes, LEE - 12/26/2022 10:01 AM EDT Images from the original note were not included. Occupational Therapy OCCUPATIONAL THERAPY [facility] Treatment Note Patient Name: Dayana Quiñones Date [...] Code Treatment Minutes: (Funct--1; Self--1) ROSA Gao * OMARI Curran - 12/26/2022 9:49 AM EDT Images from the original note were not included. Speech-Language Pathology SPEECH LANGUAGE PATHOLOGY [facility] Dysphagia Treatment Note Patient Name: Dayana Quiñones Evaluation Date: 12/26/2022 Date of : 1940 Admission Date: 12/14/2022 5:46 AM Age: 82 y.o. [facility] Subjective Patient alert and cooperative. Seen upright in bedside chair. Answers all basic questions with clear vocal quality. Follows all basic commands. No visitors at bedside. Spoke with MANAS Lawson who cleared pt for treatment. Current Diet: Dietary Orders (From admission, onward) Start Ordered 12/25/221532 Adult diet Dysphagia - Soft and Bite Sized; Mildly Thick (Machias) Diet effective now Comments: Meds whole in puree. Question Answer Comment Diet type Dysphagia - Soft and Bite Sized Fluid consistency Mildly Thick (Machias) 12/25/221532 Aspiration Precautions: - Supervision with PO - Alternate solid and liquids - Swallow x 2 per bolus - Effortful swallow Oxygen: Oxygen Therapy: None (Room air) Pain: RN managing pain. PPE Worn: gloves Objective & Assessment Dysphagia Treatment # of Activities: 1 Dysphagia Activity 1: Assess dietary tolerance Patient's NG tube is out with patient reporting no further globus sensation with swallow. Patient'sdry swallow is palpated to be clinically timely [...] per dysphagia plan of care. Continue acute TANDEM MILL OPERATOR therapy per initial plan of care and [...] consistency to allow for safe consumption of dailymeals (Progressing) Start: 12/18/22 Expected End: 01/01/23 Patient [...] Expected End: 12/30/22 Resolved: 12/17/22 Therapy Time TANDEM MILL OPERATOR Individual Minutes Time In: 910 Time Out: 930 Minutes: 20 OMARI Curran * Kenton Lorenzana, PROFESSOR OF CHEMICAL ENGINEERING - BRANCH OFFICE MANAGER - 12/26/2022 5:55 AM EDT Images from the original note were not included. Cardiothoracic Surgery/[facility] Progress Note PATIENT NAME: Dayana Quiñones DATE: 12/26/22 HPI: 82-year-old female seen in outpatient setting for surgical evaluation due to progressive shortness of breath with exertion. Patient with significant cardiac history: CAD (ME-October 2018-NEGRO to LAD and LCx; November 2018-NEGRO to RCA), paroxysmal atrial fibrillation, HFrEF-30%, 2+ MR, Surgery was discussed and patient consented to intervention. Surgery/Procedure: 12/14/22: CABGx2 (PEDRAZA LAD, SVG to OM1) MVRepair (28 ring) LAAL with atriclip with Dr. Lai Interval History: 12/26/22, POD# 12. Afebrile, paced [...] TRINI on CKD GERD S/p PPM 08/02/2018 ([facility]) Hx Stroke Paroxsymal Afib/mobitz type II AV [...] EF: 30% (12/18/22) Blood Conservation: Transfused post-op. Osteopathic Physician: Dr. Brumfield * OMARI Sosa - 12/25/2022 2:41 PM EDT Images from the original note were not included. Speech-Language Pathology SPEECH LANGUAGE PATHOLOGY [facility] Dysphagia Treatment Note Patient Name: Dayana Quiñones Evaluation Date: 12/25/2022 Date of : 1940 Admission Date: 12/14/2022 5:46 AM Age: 82 y.o. Room/Bed: [facility] A Subjective Patient alert and cooperative. Seen [...] continue dysphagia POC for tolerance. Continue acute TANDEM MILL OPERATOR therapy per initial plan of care and established goals. Recommend Soft and bite-sized solids and Mildly thick liquids and meds whole in puree, as toleratedand the following precautions: - Supervision with PO [...] consistency to allow for safe consumption of dailymeals (Progressing) Start: 12/18/22 Expected End: 01/01/23 Patient [...] Expected End: 12/30/22 Resolved: 12/17/22 Therapy Time TANDEM MILL OPERATOR Individual Minutes Time In: 1420 Time Out: 1440 Minutes: 20 OMARI Sosa * Jovi BautistaFaith Kruger, PRODUCTION MACHINIST - 12/25/2022 2:38 PM EDT Physical Therapy Facility/Department: [facility] Physical Therapy Daily Treatment Note NAME: Dayana [...] The primary encounter diagnosis was 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 A diagnosis of Coronary artery disease involving coronary bypass graft of morongo heart with angina pectoris with documented spasm (HCC) was also pertinent to this visit. has a past medical history of Anxiety, Atherosclerosis of coronary artery bypass graft of morongo heart without angina pectoris, Chronic kidney disease, GERD (gastroesophageal reflux disease), Hypertension, Ischemic cardiomyopathy, Mobitz type II atrioventricular block, STEMI (ST elevation myocardial infarction) (HCC) (11/16/2018), Stroke ([facility]), and Vertigo. has a past surgical history [...] Attention Span: Attends with cues to redirect (SPOKANE??) Memory: Decreased recall of precautions Safety Judgement: [...] Call light within reach, Gait belt, Patient atrisk for falls, Left in chair, Nurse notified, No alarms engaged upon entry into room Outcomes Score AM-PAC Score AM-PAC Inpatient Mobility Raw Score (No Stairs) : 15 Goals Encounter Problems Encounter Problems (Active) Cardiac Patient will perform bed mobility with supervision in order to improve independence and prepare forout of bed mobility. (Not Addressed) Start: 12/19/22 Expected End: 01/02/23 Patient will complete sit to stand transfer with supervision to none in order to improve safety andprepare for out of bed mobility. (Progressing) Start: [...] (TP x1; GT x1) Jovi Kruger PTA * Floridalma Hudson NP - 12/25/2022 11:03 AM EDT Images from the original note were not included. [facility] Wound Care Progress Note Dayana Quiñones AGE: 82 y.o. GENDER: female : 1940 Subjective: HISTORY of PRESENT ILLNESS HPI Dayana Quiñones is a 82 y.o. female who presents for a wound follow up. HPI: Ms. Quiñones is a 82-year-old female seen in outpatient setting for surgical evaluation due to progressive shortness of breath with exertion. Patient with significant cardiac history: CAD (ME-October 2018-NEGRO to LAD and LCx; November 2018- NEGRO to RCA), paroxysmal atrial fibrillation, HFrEF-30%, 2+ MR. Patient underwent CABG, MVR, left atrial appendage and ELA on 12/14/22. Wound Care consulted for right chest and left leg. Patient sitting up in bed side chair at time of visit- PAST MEDICAL HISTORY Past Medical History: Diagnosis Date Anxiety Atherosclerosis of coronary artery bypass graft of morongo heart without angina pectoris Chronic kidney disease GERD (gastroesophageal reflux disease) Hypertension Ischemic cardiomyopathy Mobitz type II atrioventricular block STEMI (ST elevation myocardial infarction) ([facility]) 11/16/2018 Stroke ([facility]) Vertigo PAST SURGICAL HISTORY Past Surgical History: [...] into the left eye in the morning and1 drop in the evening. apixaban (Eliquis) 5 MG tablet Take 5 mg by mouth 2 times daily. REVIEW OF SYSTEMS Pertinent items are noted in HPI. Objective: BP 114/50 (BP Location: Left arm, Patient Position: Sitting) Pulse 87 Temp 36.6 C (97.9 F) (Temporal) Resp 18 Ht 1.6 m (5' 3) Wt 77.4 kg (170 lb 10.2 oz) [...] to follow Recommend to follow up at [facility] wound care center after hospital discharge. Any questions or concerns please secure chat [facility] wound/ostomy. Thank you for the consult! I personally obtained the chang and critical portions of the history and physical exam. I reviewed the labs, imaging studies, and electronic medical record. I reviewed the chart documentation and discussed the patient with treatment team members. I have edited the note to reflect my clinical findingsand my assessment and plan. Please note, the time of this note does not reflect the time I saw thispatient today, but the time of this documentaton. [...] Decision making for today's visit and to reflectmy own independent evaluation of this patient. * Kenton Lorenzana, GRIS - BRANCH OFFICE MANAGER - 12/25/2022 5:51 AM EDT Images from the original note were not included. Cardiothoracic Surgery/[facility] Progress Note PATIENT NAME: Dayana Quiñones DATE: 12/25/22 HPI: 82-year-old female seen in outpatient setting for surgical evaluation due to progressive shortness of breath with exertion. Patient with significant cardiac history: CAD (ME-October 2018-NEGRO to LAD and LCx; November 2018-NEGRO to RCA), paroxysmal atrial fibrillation, HFrEF-30%, 2+ MR, Surgery was discussed and patient consented to intervention. Surgery/Procedure: 12/14/22: CABGx2 (PEDRAZA LAD, SVG to OM1) MVRepair (28 ring) LAAL with atriclip with Dr. Lai Interval History: 12/25/22, POD# 11: Afebrile, paced [...] TRINI on CKD GERD S/p PPM 08/02/2018 ([facility]) Hx Stroke Paroxsymal Afib/mobitz type II AV [...] EF: 30% (12/18/22) Blood Conservation: Transfused post-op. Osteopathic Physician: Dr. Brumfield * GRIS Birmingham CNP - 12/24/2022 11:46 AM EDT Images from the original note were not included. Cardiothoracic Surgery/[facility] Progress Note PATIENT NAME: Dayana Quiñones DATE: 12/24/22 HPI: 82-year-old female seen in outpatient setting for surgical evaluation due to progressive shortness of breath with exertion. Patient with significant cardiac history: CAD (ME-October 2018-NEGRO to LAD and LCx; November 2018-NEGRO to RCA), paroxysmal atrial fibrillation, HFrEF-30%, 2+ MR, Surgery was discussed and patient consented to intervention. Surgery/Procedure: 12/14/22: CABGx2 (PEDRAZA LAD, SVG to OM1) MVRepair (28 ring) LAAL with atriclip with Dr. Lai Interval History: 12/24/22, POD# 10 - no changes overnight VSS, pain well controlled. Slight TRINI Review of Systems Constitutional: Positive for activity change, appetite change and fatigue. Negative for diaphoresisand fever. Respiratory: Positive for shortness of breath. [...] TRINI on CKD GERD S/p PPM 08/02/2018 ([facility]) Hx Stroke Paroxsymal Afib/mobitz type II AV [...] goal rate 35 ml/hr Insulin per Endo TANDEM MILL OPERATOR following - NPO, with dobbhoff TF - [...] 30% 11/22/22 Blood Conservation: multiple units postop Osteopathic Physician: Dr. Brumfield * Greg Mejía, PT - 12/23/2022 2:51 PM EDT Physical Therapy Facility/Department: [facility] Physical Therapy Daily [...] The primary encounter diagnosis was 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 A diagnosis of Coronary artery disease involving coronary bypass graft of morongo heart with angina pectoris with documented spasm (HCC) was also pertinent to this visit. has a past medical history of Anxiety, Atherosclerosis of coronary artery bypass graft of morongo heart without angina pectoris, Chronic kidney disease, GERD (gastroesophageal reflux disease), Hypertension, Ischemic cardiomyopathy, Mobitz type II atrioventricular block, STEMI (ST elevation myocardial infarction) (HCC) (11/16/2018), Stroke ([facility]), and Vertigo. has a past surgical history [...] eventually go home to her dtr's in [place]. Cognition/Orientation Overall Cognitive Status: WFL Overall Orientation [...] Call light within reach, Gait belt, Patient atrisk for falls, Left in chair, Nurse notified Restraints Restraints Initially in Place: No Outcomes Score AM-PAC Score AM-PAC Inpatient Mobility Raw Score (No Stairs) : 15 Goals Encounter Problems Encounter Problems (Active) Cardiac Patient will perform bed mobility with supervision in order to improve independence and prepare forout of bed mobility. (Not Addressed) Start: 12/19/22 Expected End: 01/02/23 Patient will complete sit to stand transfer with supervision to none in order to improve safety andprepare for out of bed mobility. (Progressing) Start: [...] goggles, and gloves for entire patient encounter. * OMARI Maciel - 12/23/2022 12:03 PM EDT Images from the original note were not included. Speech-Language Pathology SPEECH LANGUAGE PATHOLOGY [facility] Dysphagia Treatment Note Patient Name: Dayana Quiñones [...] allows patient who have been identified by TANDEM MILL OPERATOR to participate in ice chips/or sips of water between meals when they are NPO or on thickened liquids. Free water Protocol (FWP) assist with decreased dehydration risk, improved compliance with modifieddiet during meals, and improved quality of life. Necessary Guidelines for Increased SAFETY Of FWP 1. 30 minutes before or after a meal if applicable. 2. Thorough oral care prior to any ice chips/sips of WATER. ([place] teeth, rinse with mouth wash, cleanse oral cavity with swab/toothette) 3. Most upright sitting, no straws, small single sips/ice chips (other strategies as stated) Plan & Recommendations Plan: Please continue Dobbhoff TF. Please facilitate proper implementation of the Free Water protocol including appropriate mouth care. Please turn TF off early 12/24/22 to promote an appetite. Speechtherapy will provide a training tray for additional practice and hopefully move forward with a dietat that time. D/C Recommendations: to be determined [...] consistency to allow for safe consumption of dailymeals Start: 12/18/22 Expected End: 01/01/23 Patient will [...] Expected End: 12/30/22 Resolved: 12/17/22 Therapy Time TANDEM MILL OPERATOR Individual Minutes Time In: 1110 Time Out: 1140 Minutes: 30 OMARI Maciel * Jim Florian APRN - BRANCH OFFICE MANAGER - 12/23/2022 10:45 AM EDT Images from the original note were not included. Cardiothoracic Surgery/[facility] Progress Note PATIENT NAME: Dayana Quiñones DATE: 12/23/22 HPI: 82-year-old female seen in outpatient setting for surgical evaluation due to progressive shortness of breath with exertion. Patient with significant cardiac history: CAD (ME-October 2018-NEGRO to LAD and LCx; November 2018-NEGRO to RCA), paroxysmal atrial fibrillation, HFrEF-30%, 2+ MR, Surgery was discussed and patient consented to intervention. Surgery/Procedure: 12/14/22: CABGx2 (PDERAZA LAD, SVG to OM1) MVRepair (28 ring) LAAL with atriclip with Dr. Lai Interval History: 12/23/22, POD# 9 no acute changes overnight - christo TF - motivated to get better Review of Systems Constitutional: Positive for activity change, appetite change and fatigue. Negative for diaphoresisand fever. Respiratory: Positive for shortness of breath. [...] BMP: Recent Labs 12/21/22 0030 12/21/22 0445 12/22/225 12/23/22 0037 12/23/22 0549 NA 145 -- [...] not displayed. 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 Brumfield Associated attestation - Rhett Scott DO - 12/23/2022 11:54 AM EDT This patient was seen and personally examined by me. Labs, imaging studies and electronic medical record reviewed. See [x]progress note []H&P []Consult documented by [x]ice house supervisor / JACEY which reflects my hpi, pmh, psh, ros, fh, sh as well with my additions, as I discussed with the [x]ice house supervisor / JACEY. For my exam, assessment and plan see below. Please see full note for additional information, physical exam. Discussed with: [x]Residents/JACEY [x]Patient/Family [x]RN [] Available Consultants []SW/TCC []Other Personally Reviewed: [x]Epic notes [x]Radiology studies [x]Labs []EKG []Other Chang Changes to plan: with limited assessment and plan: Agree with plan outlined below. Dispo planning. TANDEM MILL OPERATOR therpay/pt/ot. * Jovi Kruger PTA - 12/22/2022 3:41 PM EDT Physical Therapy Facility/Department: [facility] Physical Therapy Daily Treatment Note NAME: Dayana [...] The primary encounter diagnosis was 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 A diagnosis of Coronary artery disease involving coronary bypass graft of morongo heart with angina pectoris with documented spasm ([facility]) was also pertinent to this visit. has a past medical history of Anxiety, Atherosclerosis of coronary artery bypass graft of morongo heart without angina pectoris, Chronic kidney disease, GERD (gastroesophageal reflux disease), Hypertension, Ischemic cardiomyopathy, Mobitz type II atrioventricular block, STEMI (ST elevation myocardial infarction) ([facility]) (11/16/2018), Stroke ([facility]), and Vertigo. has a past surgical history [...] Comment Comments: OT present for eval/Tx upon PRODUCTION MACHINIST arrival Subjective Subjective: Pt in bed, agreeable to PT. nsg cleared pt for PT Patient Stated Goal: To get stronger, to eventually go home to her dtr's in [place]. Pain Assessment Pain Assessment: (Pt only c/o [...] Call light within reach, Gait belt, Patient atrisk for falls, Left in chair, Nurse notified, No alarms engaged upon entry into room Outcomes Score AM-PAC Score AM-PAC Inpatient Mobility Raw Score (No Stairs) : 14 Goals Encounter Problems Encounter Problems (Active) Cardiac Patient will perform bed mobility with supervision in order to improve independence and prepare forout of bed mobility. (Progressing) Start: 12/19/22 Expected End: 01/02/23 Patient will complete sit to stand transfer with supervision to none in order to improve safety andprepare for out of bed mobility. (Progressing) Start: [...] 14 Minutes (gt x1) Jovi Kruger PTA * Genesis Goldstein - 12/22/2022 3:13 PM EDT Occupational Therapy Facility/Department: Occupational Therapy Initial Evaluation NAME: Dayana Quiñones [...] Recommend IP rehab. If pt is homegoing, rec ommend 24 hour assist. Prognosis: Good Decision Making: Medium Complexity Activity Tolerance Activity Tolerance: Patient Tolerated treatment well, Patient limited by fatigue Patient Diagnosis(es): The primary encounter diagnosis was 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 A diagnosis of Coronary artery disease involving coronary bypass graft of morongo heart with angina pectoris with documented spasm ([facility]) was also pertinent to this visit. has a past medical history of Anxiety, Atherosclerosis of coronary artery bypass graft of morongo heart without angina pectoris, Chronic kidney disease, GERD (gastroesophageal reflux disease), Hypertension, Ischemic cardiomyopathy, Mobitz type II atrioventricular block, STEMI (ST elevation myocardial infarction) ([facility]) (11/16/2018), Stroke ([facility]), and Vertigo. has a past surgical history [...] With device?: No Transfer Assistance: Independent Active Anchor Tack Puller: Yes Additional Comments: pt plans to go [...] Plan of Care supervision is transferred to [facility] Occupational Therapist. Goals and/or treatment plan was established in collaboration with patient/family/other representatives. Genesis Goldstein S/OT * Floridalma Hudson NP - 12/22/2022 12:01 PM EDT Patient out of room. Wound care will continue to follow. * Jim Florian APRN - JOELLE - 12/22/2022 7:47 AM EDT Images from the original note were not included. Cardiothoracic Surgery/[facility] Progress Note PATIENT NAME: Dayana Quiñones DATE: 12/22/22 HPI: 82-year-old female seen in outpatient setting for surgical evaluation due to progressive shortness of breath with exertion. Patient with significant cardiac history: CAD (ME-October 2018-NEGRO to LAD and LCx; November 2018-NEGRO to RCA), paroxysmal atrial fibrillation, HFrEF-30%, 2+ MR, Surgery was discussed and patient consented to intervention. Surgery/Procedure: 12/14/22: CABGx2 (PEDRAZA LAD, SVG to OM1) MVRepair (28 ring) LAAL with atriclip with Dr. Lai Interval History: 12/22/22, POD# 8: No acute changes overnight - labs stable CXR unchanged - Pain well controlled - pt christo TF Review of Systems Constitutional: Positive for activity change, appetite change and fatigue. Negative for diaphoresisand fever. Respiratory: Positive for shortness of breath. 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 Appears to have mode [...] goal rate 35 ml/hr Insulin per Endo TANDEM MILL OPERATOR following - NPO, with dobbhoff TF PT/OT: [...] 30% 11/22/22 Blood Conservation: multiple units postop Osteopathic Physician: Dr. Brumfield Associated attestation - Rhett Scott DO - 12/22/2022 7:30 PM EDT This patient was seen and personally examined by me. Labs, imaging studies and electronic medical record reviewed. See [x]progress note []H&P []Consult documented by [x]ice house supervisor / JACEY which reflects my hpi, pmh, psh, ros, fh, sh as well with my additions, as I discussed with the [x]ice house supervisor / JACEY. For my exam, assessment and plan see below. Please see full note for additional information, physical exam. Discussed with: [x]Residents/JACEY [x]Patient/Family [x]RN [] Available Consultants []SW/TCC []Other Personally Reviewed: [x]Epic notes [x]Radiology studies [x]Labs []EKG []Other Chang Changes to plan: with limited assessment and plan: agree with documentation by JACEY Chiqui below * OMARI Maciel - 12/21/2022 3:04 PM EDT Images from the original note were not included. Speech-Language Pathology SPEECH LANGUAGE PATHOLOGY [facility] Dysphagia Treatment Note Patient Name: Dayana Quiñones Evaluation Date: 12/21/2022 Date of : 1940 Admission Date: 12/14/2022 5:46 AM Age: 82 y.o. Room/Bed: [facility] A Subjective Patient alert and cooperative. Seen upright in bedside chair. No visitors at bedside. Spoke with MANAS Gusman who cleared pt for treatment. Pain: RN managing pain. PPE Worn: gloves Objective & Assessment Dysphagia Treatment # of Activities: 3 Dysphagia Activity 1: oropharyngeal strengthening Dysphagia Activity 2: Free Water Dysphagia Activity 3: PO trials Patient reports that she has not brushed her teeth since yesterday but has ice chips on the bedsidetable. Completed PO trials. Patient consumed 2 ounces [...] with additional pharyngeal strengthening exercise (Hosea maneuver). Patientcompletes same x 7 but requires cued to maintain laryngeal lift for 2 seconds. Patient is independent with Carlene and effortful swallow exercises. Assisted patient to brush teeth and use mouthwash so that she can safely continue the Free Water Protocol . FREE WATER PROTOCOL IS RECOMMENDED FOR THIS PATIENT The free water protocol allows patient who have been identified by TANDEM MILL OPERATOR to participate in ice chips/or sips of water between meals when they are NPO or on thickened liquids. Free water Protocol (FWP) assist with decreased dehydration risk, improved compliance with modifieddiet during meals, and improved quality of life. Necessary Guidelines for Increased SAFETY Of FWP 1. 30 minutes before or after a meal if applicable. 2. Thorough oral care prior to any ice chips/sips of WATER. ([place] teeth, rinse with mouth wash, cleanse oral [...] consistency to allow for safe consumption of dailymeals Start: 12/18/22 Expected End: 01/01/23 Patient will [...] Expected End: 12/30/22 Resolved: 12/17/22 Therapy Time TANDEM MILL OPERATOR Individual Minutes Time In: 1435 Time Out: 1500 Minutes: 25 OMARI Maciel * Nathalie Hackett RD - 12/21/2022 2:51 PM EDT Nutrition Assessment Type and Reason for Visit: [...] loss Fluid Accumulation: No significant fluid accumulation Manager Terminal Strength: Not Performed Nutrition Assessment: Pt with PMH including anxiety, CAD, CKD, GERD, HTN, ischemic cardiomyopathy, Mobitz type II atrioventricular block, STEMI, stroke, paroxysmal atrial fibrillation, HFrEF-30%, 2+ MR, and vertigo presented on 12/14/22 for CABGx2 and MVRepair. Extubated on POD#1 (12/15). +Dysphonia. TANDEM MILL OPERATOR following with finding of dysphagia, recommendation for NPO. DHT placed and TF intitated on 12/19. TF running at goal.(Glucerna 1.5 at 35 ml/hr) Estimated Daily Nutrient Needs: Energy Requirements Based On: Kcal/kg Weight Used for Energy Requirements: Reynolds Weight for Energy Calculation (kg): 52.3 kg Total Energy Requirements (kcals/day): 1308-1569kcals/day Weight Used for Protein Requirements: Reynolds Weight in Kg Used for Protein Requirements: [...] NPO Anthropometric Measures: Height: 160 cm (5' 3) Current Body Weight: 76.3 kg (168 lb 3.4 oz) (12/21) Weight Source: Not Specified Admission Body Weight: 76.7 kg (169 lb) (stated 12/14) Usual Body Weight: 77.6 kg (171 lb) (only weight noted per chart review is from 11/14/22: 171#) % Weight Change (Calculated): 0.6 Reynolds Body Weight (lbs) (Calculated): 115 lbs Reynolds Body Weight (Kg) (Calculated): 52 kg % Reynolds Body Weight (Calculated): 149.6 % BMI (kg/m2) [...] to determine Nathalie Hackett RD, LD Contact: *[phone] or via [employer] chat * Jovi Kruger PTA - 12/21/2022 1:42 PM EDT Physical Therapy Facility/Department: [facility] Physical Therapy Daily Treatment Note NAME: Dayana [...] The primary encounter diagnosis was 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 A diagnosis of Coronary artery disease involving coronary bypass graft of morongo heart with angina pectoris with documented spasm ([facility]) was also pertinent to this visit. has a past medical history of Anxiety, Atherosclerosis of coronary artery bypass graft of morongo heart without angina pectoris, Chronic kidney disease, GERD (gastroesophageal reflux disease), Hypertension, Ischemic cardiomyopathy, Mobitz type II atrioventricular block, STEMI (ST elevation myocardial infarction) ([facility]) (11/16/2018), Stroke ([facility]), and Vertigo. has a past surgical history [...] eventually go home to her dtr's in [place]. Pain Assessment Pain Assessment: (Pt reported no [...] Call light within reach, Gait belt, Patient atrisk for falls, Left in chair, Nurse notified, No alarms engaged upon entry into room Outcomes Score AM-PAC Score AM-PAC Inpatient Mobility Raw Score (No Stairs) : 13 Goals Encounter Problems Encounter Problems (Active) Cardiac Patient will perform bed mobility with supervision in order to improve independence and prepare forout of bed mobility. (Not Addressed) Start: 12/19/22 Expected End: 01/02/23 Patient will complete sit to stand transfer with supervision to none in order to improve safety andprepare for out of bed mobility. (Progressing) Start: [...] (FA x1; TP x1) Jovi Kruger PTA * Zainab Brooks MD - 12/21/2022 8:[address] [facility] [place] [facility] Cardiology /Electrophysiology Progress Note HPI / Interval History: Dayana Quiñones is a 82 y.o. female with hx of pAF, CAD (ME-October 2018-NEGRO to LAD and LCx; November 2018-NEGRO to RCA), ICM/HFrEF presenting for CABG. She underwent CABG on 12/14/22: CABGx2 (PEDRAZA LAD, SVG to OM1) MV Repair (28 ring) LAAL with atriclip. She reports feeling more SOB today when she was transferred from bed to chair. Denies dizziness overnight. Assessment/Plan HFrEF (30%) ICM She appears more SOB this morning. JVP slightly increased to [id number]. Decreased air entry on theleft lung - Continue low dose entresto BID [...] dose Entresto, spironolactone, farxiga -will sign off * Janel Mayberry, PROFESSOR OF CHEMICAL ENGINEERING - BRANCH OFFICE MANAGER - 12/21/2022 6:48 AM EDT Images from the original note were not included. Cardiothoracic Surgery/[facility] Progress Note PATIENT NAME: Dayana Quiñones DATE: 12/21/22 HPI: 82-year-old female seen in outpatient setting for surgical evaluation due to progressive shortness of breath with exertion. Patient with significant cardiac history: CAD (ME-October 2018-NEGRO to LAD and LCx; November 2018-NEGRO to RCA), paroxysmal atrial fibrillation, HFrEF-30%, 2+ MR, Surgery was discussed and patient consented to intervention. Surgery/Procedure: 12/14/22: CABGx2 (PEDRAZA LAD, SVG to OM1) MVRepair (28 ring) LAAL with atriclip with Dr. Lai Interval History: 12/21/22, POD# 7: VSS overnight, V-paced rhythm on tele. On RA. She is resting in chair this morning. SOB with ambulation. We discussed her ongoing dysphagia- she denies having a problem with chokingprior to surgery. Review of Systems Constitutional: Positive for activity change, appetite change and fatigue. Negative for diaphoresisand fever. Respiratory: Positive for shortness of breath. 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 Brumfield Associated attestation - Rhett Scott DO - 12/21/2022 5:04 PM EDT This patient was seen and personally examined by me. Labs, imaging studies and electronic medical record reviewed. See [x]progress note []H&P []Consult documented by [x]ice house supervisor / JACEY which reflects my hpi, pmh, psh, ros, fh, sh as well with my additions, as I discussed with the [x]ice house supervisor / JACEY. For my exam, assessment and plan see below. Please see full note for additional information, physical exam. Discussed with: [x]Residents/JACEY [x]Patient/Family [x]RN [] Available Consultants []SW/TCC []Other Personally Reviewed: [x]Epic notes [x]Radiology studies [x]Labs []EKG []Other POD 7, CABG , MV repair, Dr Lai. No acute events. HFrEF . Dysphagia. TANDEM MILL OPERATOR DHT. Progressing appropriately * OMARI Maciel - 12/20/2022 11:33 AM EDT Images from the original note were not included. Speech-Language Pathology SPEECH LANGUAGE PATHOLOGY [facility] Dysphagia Treatment Note Patient Name: Dayana Quiñones [...] Patient uses a chin tuck and an effortfulswallow for each bolus. Patient also uses re-swallow [...] allows patient who have been identified by TANDEM MILL OPERATOR to participate in ice chips/or sips of water between meals when they are NPO or on thickened liquids. Free water Protocol (FWP) assist with decreased dehydration risk, improved compliance with modifieddiet during meals, and improved quality of life. Necessary Guidelines for Increased SAFETY Of FWP 1. 30 minutes before or after a meal if applicable. 2. Thorough oral care prior to any ice chips/sips of WATER. ([place] teeth, rinse with mouth wash, cleanse oral cavity with swab/toothette) 3. Most upright sitting, no straws, small single sips/ice chips (other strategies as stated) Plan & Recommendations Plan: Continue Dobbhoff TF. OK for Free Water protocol. Continue acute TANDEM MILL OPERATOR therapy per initial plan of care and established goals. D/C Recommendations: to be determined Education Education Given: potential for additional diagnostic testing, education of oropharyngeal/oral motorexercise for strengthening Given To: patient and family - provided written instructions as well Response: verbalizes understanding Goals Patient Stated Goal: To resume a PO diet Encounter Problems Encounter Problems (Active) Swallowing Patient will complete oropharyngeal strengthening exercises to improve swallow function (Progressing) Start: 12/17/22 Expected End: 01/01/23 Patient will tolerate the least restrictive diet consistency to allow for safe consumption of dailymeals Start: 12/18/22 Expected End: 01/01/23 Patient will [...] Expected End: 12/30/22 Resolved: 12/17/22 Therapy Time TANDEM MILL OPERATOR Individual Minutes Time In: 1105 Time Out: 1130 Minutes: 25 OMARI Maciel * Jovi Kruger PTA - 12/20/2022 10:59 AM EDT Physical Therapy Facility/Department: [facility] Physical Therapy Daily Treatment Note NAME: Dayana [...] The primary encounter diagnosis was 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 A diagnosis of Coronary artery disease involving coronary bypass graft of morongo heart with angina pectoris with documented spasm ([facility]) was also pertinent to this visit. has a past medical history of Anxiety, Atherosclerosis of coronary artery bypass graft of morongo heart without angina pectoris, Chronic kidney disease, GERD (gastroesophageal reflux disease), Hypertension, Ischemic cardiomyopathy, Mobitz type II atrioventricular block, STEMI (ST elevation myocardial infarction) ([facility]) (11/16/2018), Stroke ([facility]), and Vertigo. has a past surgical history [...] think I had an aciident in the chair. Pt agreeable to PT. nsg cleared Pt for PT. Patient Stated Goal: To get stronger, to eventually go home to her dtr's in [place]. Pain Assessment Pain Assessment: (Pt reported no [...] for static standing balance for pericare from PRODUCTION MACHINIST/RN, x3 rep Exercises Knee Long Arc Quad: [...] Call light within reach, Gait belt, Patient atrisk for falls, Left in chair, Nurse notified, No alarms engaged upon entry into room Restraints Restraints Initially in Place: No Outcomes Score AM-PAC Score AM-PAC Inpatient Mobility Raw Score (No Stairs) : 12 Goals Encounter Problems Encounter Problems (Active) Cardiac Patient will perform bed mobility with supervision in order to improve independence and prepare forout of bed mobility. (Not Addressed) Start: 12/19/22 Expected End: 01/02/23 Patient will complete sit to stand transfer with supervision to none in order to improve safety andprepare for out of bed mobility. (Progressing) Start: [...] 24 Minutes (FA x2) Jovi Kruger PTA * Janel Mayberry, GRIS - BRANCH OFFICE MANAGER - 12/20/2022 6:18 AM EDT Images from the original note were not included. Cardiothoracic Surgery/[facility] Progress Note PATIENT NAME: Dayana Quiñones DATE: 12/20/22 HPI: 82-year-old female seen in outpatient setting for surgical evaluation due to progressive shortness of breath with exertion. Patient with significant cardiac history: CAD (ME-October 2018-NEGRO to LAD and LCx; November 2018-NEGRO to RCA), paroxysmal atrial fibrillation, HFrEF-30%, 2+ MR, Surgery was discussed and patient consented to intervention. Surgery/Procedure: 12/14/22: CABGx2 (PEDRAZA LAD, SVG to OM1) MVRepair (28 ring) LAAL with atriclip with Dr. Lai Interval History: 12/20/22, POD# 6: VSS, AV paced rhythm. On RA. She is resting in chair, tolerating TF. Had multipleBMs overnight. Cr stabilized at 1.12. Review of Systems Constitutional: Positive for activity change, appetite change and fatigue. Negative for diaphoresisand fever. Respiratory: Positive for shortness of breath. 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 Brumfield Associated attestation - Rhett Scott DO - 12/20/2022 4:00 PM EDT This patient was seen and personally examined by me. Labs, imaging studies and electronic medical record reviewed. See [x]progress note []H&P []Consult documented by [x]ice house supervisor / JACEY which reflects my hpi, pmh, psh, ros, fh, sh as well with my additions, as I discussed with the [x]ice house supervisor / JACEY. For my exam, assessment and [...] po GDMT, AC. DHT ongoing eval with TANDEM MILL OPERATOR MBSS. Stable oxygenation and ventilation * OMARI Maciel - 12/19/2022 12:29 PM EDT Images from the original note were not included. Speech-Language Pathology SPEECH LANGUAGE PATHOLOGY [facility] Dysphagia Treatment Note Patient Name: Dayana [...] and then 3 Carlene after the ice iscleared from the oral cavity. Patient completes this sequence x 3. FREE WATER PROTOCOL IS RECOMMENDED FOR THIS PATIENT The free water protocol allows patient who have been identified by TANDEM MILL OPERATOR to participate in ice chips/or sips of water between meals when they are NPO or on thickened liquids. Free water Protocol (FWP) assist with decreased dehydration risk, improved compliance with modifieddiet during meals, and improved quality of life. Necessary Guidelines for Increased SAFETY Of FWP 1. 30 minutes before or after a meal if applicable. 2. Thorough oral care prior to any ice chips/sips of WATER. ([place] teeth, rinse with mouth wash, cleanse oral cavity with swab/toothette) 3. Most upright sitting, no straws, small single sips/ice chips (other strategies as stated) Plan & Recommendations Plan: Continue acute TANDEM MILL OPERATOR therapy per initial plan of care and [...] consistency to allow for safe consumption of dailymeals Start: 12/18/22 Expected End: 01/01/23 Patient will [...] Expected End: 12/30/22 Resolved: 12/17/22 Therapy Time TANDEM MILL OPERATOR Individual Minutes Time In: 1145 Time Out: 1200 Minutes: 15 OMARI Maciel * Rowena Saldaña, PT - 12/19/2022 10:29 AM EDT Physical Therapy Facility/Department: [facility] Physical Therapy Initial Evaluation NAME: Dayana Quiñones [...] The primary encounter diagnosis was 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 A diagnosis of Coronary artery disease involving coronary bypass graft of morongo heart with angina pectoris with documented spasm ([facility]) was also pertinent to this visit. has a past medical history of Anxiety, Atherosclerosis of coronary artery bypass graft of morongo heart without angina pectoris, Chronic kidney disease, GERD (gastroesophageal reflux disease), Hypertension, Ischemic cardiomyopathy, Mobitz type II atrioventricular block, STEMI (ST elevation myocardial infarction) ([facility]) (11/16/2018), Stroke ([facility]), and Vertigo. has a past surgical history [...] with PT to see pt. Pt reporting guido rojo complaint. Patient Stated Goal: To get stronger, to eventually go home to her dtr's in [place]. Social/Functional History Social/Functional History Lives With: Alone Type of Home: House Home Layout: One level Home Access: Stairs to enter with rails Entrance Stairs - Number of Steps: 3 Home Equipment: (Dtr may have a FWW) ADL Assistance: Independent Homemaking Assistance: Independent Ambulation Assistance: Independent With device?: No Transfer Assistance: Independent Active Anchor Tack Puller: Yes Additional Comments: Lives alone, limited support in the area for homegoing. But per pt repots, shemay go to her dtr's in [place] at [facility] with 1 story set up and level [...] 2 (seated rest break in chair in [place] prior to returning to room) Comments 1: [...] in order to improve independence and prepare forout of bed mobility. Start: 12/19/22 Expected End: 01/02/23 Patient will complete sit to stand transfer with supervision to none in order to improve safety andprepare for out of bed mobility. Start: 12/19/22 [...] understanding Therapy Time Individual Co-treatment Time In 908 Time Out 0935 Minutes 26 Patient s Physical Therapy Plan of Care supervision is transferred to [facility] Re[facility] Department Physical Therapist. Rowena Saldaña PT * Janel Mayberry APRN - BRANCH OFFICE MANAGER - 12/19/2022 6:28 AM EDT Images from the original note were not included. Cardiothoracic Surgery/[facility] Progress Note PATIENT NAME: Dayana Quiñones DATE: 12/19/22 HPI: 82-year-old female seen in outpatient setting for surgical evaluation due to progressive shortness of breath with exertion. Patient with significant cardiac history: CAD (ME-October 2018-NEGRO to LAD and LCx; November 2018-NEGRO to RCA), paroxysmal atrial fibrillation, HFrEF-30%, 2+ MR, Surgery was discussed and patient consented to intervention. Surgery/Procedure: 12/14/22: CABGx2 (PEDRAZA LAD, SVG to OM1) MVRepair (28 ring) LAAL with atriclip with Dr. Lai Interval History: 12/19/22, POD# 5: VSS, AV paced rhythm. On 2L NC. TANDEM MILL OPERATOR following, continue NPO, plan to repeat MBSS [...] change, appetite change and fatigue. Negative for diaphoresisand fever. Respiratory: Positive for shortness of breath. 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 Brumfield Associated attestation - Rhett Scott DO - 12/19/2022 5:38 PM EDT This patient was seen and personally examined by me. Labs, imaging studies and electronic medical record reviewed. See [x]progress note []H&P []Consult documented by [x]ice house supervisor / JACEY which reflects my hpi, pmh, psh, ros, fh, sh as well with my additions, as I discussed with the [x]ice house supervisor / JACEY. For my exam, assessment and plan see below. Please see full note for additional information, physical exam. Discussed with: [x]Residents/JACEY [x]Patient/Family [x]RN [] Available Consultants []SW/TCC []Other Personally Reviewed: [x]Epic notes [x]Radiology studies [x]Labs []EKG []Other Chang Changes to plan: with limited assessment and plan: No acute events. NPO , TANDEM MILL OPERATOR. DHT placement. Planned repeat MBSS. Echo HFrEF 30, rvsp 35 A/P CAD s/p CABG Severe MR s/p MVRepair HFrEF 30 Trini on ckd Ppm Afib, Dysphagia. Plan:Resumed po GDMT, AC. DHT placement due to dyphagia, ongoing eval with TANDEM MILL OPERATOR . Stable oxygenationand ventilation. * OMARI Maciel - 12/18/2022 12:25 PM EDT Images from the original note were not included. Speech-Language Pathology SPEECH LANGUAGE PATHOLOGY [facility] Dysphagia Treatment Note Patient Name: Dayana Quiñones [...] allows patient who have been identified by TANDEM MILL OPERATOR to participate in ice chips/or sips of water between meals when they are NPO or on thickened liquids. Free water Protocol (FWP) assist with decreased dehydration risk, improved compliance with modifieddiet during meals, and improved quality of life. Necessary Guidelines for Increased SAFETY Of FWP 1. 30 minutes before or after a meal if applicable. 2. Thorough oral care prior to any ice chips/sips of WATER. ([place] teeth, rinse with mouth wash, cleanse oral [...] repeat the MBSS on . Continue acute TANDEM MILL OPERATOR therapy per initial plan of care and [...] consistency to allow for safe consumption of dailymeals Start: 12/18/22 Expected End: 01/01/23 Patient will [...] Expected End: 12/30/22 Resolved: 12/17/22 Therapy Time TANDEM MILL OPERATOR Individual Minutes Time In: 1145 Time Out: 1210 Minutes: 25 OMARI Maciel * Janel Mayberry, GRIS - BRANCH OFFICE MANAGER - 12/18/2022 6:04 AM EDT Images from the original note were not included. Cardiothoracic Surgery/[facility] Progress Note PATIENT NAME: Dayana Quiñones DATE: 12/18/22 HPI: 82-year-old female seen in outpatient setting for surgical evaluation due to progressive shortness of breath with exertion. Patient with significant cardiac history: CAD (ME-October 2018-NEGRO to LAD and LCx; November 2018-NEGRO to RCA), paroxysmal atrial fibrillation, HFrEF-30%, 2+ MR, Surgery was discussed and patient consented to intervention. Surgery/Procedure: 12/14/22: CABGx2 (PEDRAZA LAD, SVG to OM1) MVRepair (28 ring) LAAL with atriclip with Dr. Lai Interval History: 12/18/22, POD# 4: VSS overnight, paced rhythm. On 2L NC. Cr improving 1.27 today. Incontinent of urine overnight. Failed barium swallow- continue NPO per TANDEM MILL OPERATOR. Needs BM. Review of Systems Constitutional: Positive for activity change, appetite change and fatigue. Negative for diaphoresisand fever. Respiratory: Positive for shortness of breath. 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 Brumfield Associated attestation - Rhett Scott DO - 12/18/2022 4:20 PM EDT This patient was seen and personally examined by me. Labs, imaging studies and electronic medical record reviewed. See [x]progress note []H&P []Consult documented by [x]ice house supervisor / JACEY which reflects my hpi, pmh, psh, ros, fh, sh as well with my additions, as I discussed with the [x]ice house supervisor / JACEY. For my exam, assessment and [...] reactive -Thrombocytopenia - consumptive -ABLA -ILD Plan: TANDEM MILL OPERATOR eval. NPO, MBSS, , OP strengthening. Npo [...] at least 35 minutes so far today. * Jolanta Clemens RD - 12/17/2022 2:11 PM EDT Nutrition Assessment Type and Reason for Visit: Initial (tech referral for CABG and dysphagia) Nutrition Recommendations/Plan: 1. Pt is currently NPO. Pt is POD #3 CABGx2 (PEDRAZA LAD, SVG to OM1) MVRepair (28 ring) LAAL with atriclip on 12/14/22. Pt was extubated on 12/15 and TANDEM MILL OPERATOR recommending NPO. Pt went for MBSS today with continued NPO recommendations. Recommend pt not be without nutrition source for >72 hours if medically able. --> if pt is able to be cleared for oral diet, consider goal of Low Fat/Low Chol/High Fiber/ABI given recent cardiac operation. Pt with surgical wounds to sternum and left pretibial- would benefitfrom ONS such as Arnoldo vs Ensure to promote wound healing pending pt preference. If pt is not cleared for thin liquids could always consider Magic Cup as well. --> should nutrition via alternate route be required, consider goal EN: Glucerna 1.5 @ goal rateof 35mls/hr to provide 1260kcals, 69gm protein, 637mL free fluid (24kcals/kg, 1.3gm/kg IBW). Pt does not have DM history however currently with increased needs for protein as well as need for optimalBG control to aide in surgical wound healing. 2. Will continue to monitor tolerance of nutrition once initiated via appropriate route. 3. Did not feel now was appropriate time for education given that pt was sleeping soundly and currently without means of nutrition- will monitor throughout admit for more appropriate time for cardiacdiet education if warranted. 4. Will continue to [...] had full liquids ordered on 12/15 however TANDEM MILL OPERATOR recs NPO and diet was changed back, failed MBSS today) Weight Loss: No significant weight loss (pt weight has been stable PRODUCTION MACHINIST- pt CBW 172# no method on 12/17, was 169# stated on 12/14 presentation, only weight noted per chart review is from 11/14/22: 171#) Body Fat Loss: (pt appears appropriately nourished for age, did not complete NFPE as pt was restingsoundly) Muscle Mass Loss: (pt appears appropriately nourished for age, did not complete NFPE as pt was resting soundly) Fluid Accumulation: No significant fluid accumulation Manager Terminal Strength: Not Performed Nutrition Assessment: pt with PMH significant for GERD, anxiety, CKD, HTN, stroke and CAD s/p acute ME who presented to [facility] ED on 12/14/22 for planned procedure, [...] diagnosis of diabetes thus signed off 12/16, TANDEM MILL OPERATOR was consulted and completed assessment 12/15 and noted s/s oropharyngeal dysphagia + overt clinical s/s pulmonary compromise with PO thusrecommended NPO, TANDEM MILL OPERATOR re-assessed on 12/16 and recommended continued NPO with completion of MBSS which was done today with recs noted for NPO with TANDEM MILL OPERATOR to instruct patient on Free Water Protocol with ice chips and water via teaspoon with double swallow and intermittent cough and re- swallow, noted epicardial wire and chest tubes removed today without difficulty per SENIOR MOBILE DEVELOPER documentation, in terms of nutrition pt has been NPO throughout admit (briefly full liquids were provided on 12/15 but then modified to NPO s/p TANDEM MILL OPERATOR recs), at time of presentation to room pt daughter is at bedside and pt is sleeping soundly, daughter states that she just recently arrived and was awaiting an update from staff about events of today, pt daughter confirms pt has no food allergies, at baseline does not have chewing/swallowing issues, pt weight has been stable PRODUCTION MACHINIST- pt CBW 172# no method on 12/17, was 169# stated on 12/14 presentation, only weight noted per chart review is from 11/14/22: 171#, will monitor. Estimated Daily Nutrient Needs: Energy Requirements Based On: Kcal/kg Weight Used for Energy Requirements: Reynolds Weight for Energy Calculation (kg): 52.3 kg Total Energy Requirements (kcals/day): 1308-1569kcals/day Weight Used for Protein Requirements: Reynolds Weight in Kg Used for Protein Requirements: 52.3 kg Estimated Total Protein (g/day): 63-73gm pro/day, monitor renal function- pt with increased needs d/t surgical wound healing Estimated Daily Total Fluid (ml/day): per MD Recommendations Nutrition Related Findings: Lam = 16, +I/O, missing teeth, lives alone PRODUCTION MACHINIST- daughter involved, active bowel sounds, no BM noted all admit, failed MBSS today Wound Type: Surgical Incision (sternal and left pretibial incisions) Current Nutrition Therapies: NPO diet Current Oral Intake Average Meal Intake: NPO Average Supplements Intake: NPO Anthropometric Measures: Height: 160 cm (5' 3) Current Body Weight: 78 kg (172 lb) (no method 12/17) Weight Source: Not Specified Admission Body Weight: 76.7 kg (169 lb) (stated 12/14) Usual Body Weight: 77.6 kg (171 lb) (only weight noted per chart review is from 11/14/22: 171#) % Weight Change (Calculated): 0.6 Reynolds Body Weight (lbs) (Calculated): 115 lbs Reynolds Body Weight (Kg) (Calculated): 52 kg % Reynolds Body Weight (Calculated): 149.6 % BMI (kg/m2) [...] determine Jolanta Clemens RD Contact: available via [employer] or *[phone] * Jan Rebollar APRN - BRANCH OFFICE MANAGER - 12/17/2022 11:33 AM EDT <5cc noted since epicardial wire pull Chest tubes assessed: no air leak, subcutaneous air noted. Chest tubes removed without difficulty and dressing applied. Patient tolerated well. Patient and nurse educated on possible complications toobserve for. Will continue to monitor. * GRIS Baca CNP - 12/17/2022 10:23 AM EDT Patient in bed, VSS. Epicardial pacing wire pulled without difficulty per protocol. Patient and nurse educated on possible complications. Patient tolerated well. Will continue to monitor. BP cycling. Chest tubes still in place. * GRIS Baca CNP - 12/17/2022 5:55 AM EDT Images from the original note were not included. Cardiothoracic Surgery/[facility] Progress Note PATIENT NAME: Dayana Quiñones DATE: 12/17/22 HPI: 82-year-old female seen in outpatient setting for surgical evaluation due to progressive shortness of breath with exertion. Patient with significant cardiac history: CAD (ME-October 2018-NEGRO to LAD and LCx; November 2018-NEGRO to RCA), paroxysmal atrial fibrillation, HFrEF-30%, 2+ MR, Surgery was discussed and patient consented to intervention. Surgery/Procedure: 12/14/22: CABGx2 (PEDRAZA LAD, SVG to OM1) MVRepair (28 ring) LAAL with atriclip with Dr. Lai on 12/14/22 Interval History: 12/17/22, POD# 3: Weaned off all vasoactives. [place] removed; VSS. SCr downtrending. 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 Pacing wires -->will discuss with Dr. Lai PT/OT: will need evaled Speech: NPO and [...] 30% 11/22/22 Blood Conservation: multiple units postoperatively Osteopathic Physician: Dr. Brumfield Associated attestation - Russ Montero MD - 12/17/2022 12:17 PM EDT I have personally seen the patient and examined along with the JACEY/resident team. I personally obtained the chang and relevent portions of the history and performed physical exam. I reviewed the chart including MAR , labs and radiology and discussed the patient's plan of action with the resident/JACEY.This note reflects my plan of care as [...] support systems, review of data including imaging andlabs, discussions with other team members, patient's family and physicians. * Quin Blair - 12/16/2022 1:18 PM EDT .Nutrition rescreen completed. Patient referred to the Dietitian. CABG, dysphagia.SHARON Reyes * Juju Murphy, OMARI - 12/16/2022 10:06 AM EDT Images from the original note were not included. Speech-Language Pathology SPEECH LANGUAGE PATHOLOGY [facility] Dysphagia Treatment Note Patient Name: Dayana Quiñones Evaluation Date: 12/16/2022 Date of : 1940 Admission Date: 12/14/2022 5:46 AM Age: 82 y.o. Room/Bed: T1-114/T1-114 A Subjective Patient alert and cooperative. Seen upright in bed. Answers all basic questions with weak vocal quality. Follows all basic commands. Visitors at bedside - daughter. Spoke with MANAS Jacobson who cleared pt for treatment. Current Diet: [...] if a safe diet level. Continue acute TANDEM MILL OPERATOR therapy per initial plan of care and [...] Start: 12/16/22 Expected End: 12/30/22 Therapy Time TANDEM MILL OPERATOR Individual Minutes Time In: 0950 Time Out: 1002 Minutes: 12 OMARI Curran * Janel Zambrano, PROFESSOR OF CHEMICAL ENGINEERING - BRANCH OFFICE MANAGER - 12/16/2022 8:38 AM EDT Department of Internal Medicine Division of Endocrinology, Diabetes, & Metabolism Endocrinology Note Patient Name: Dayana Quiñones : 1940 AGE: 82 y.o. Room/Bed: T1114/T1114 A Admission Date: 12/14/2022 Visit Date: 12/16/2022 Reason for Endocrine Consult: post op heart Provider/Team Requesting Consult: cts PCP: Amalia Avery MD Outpt Mail Inserter: No ASSESSMENT: Stress hyperglycemia Cad s/p cabgx2 [...] results, and Other Clinical Notes at the timeof today's encounter. Labs: No components found for: [...] found for: CHOLHDLRATIO No results found for: [id number] No results found for: TSH, C3WZGEW, H2IFUNC, THYROIDAB Radiology reportsas per the Radiologist Radiology: ECG 12 lead Result Date: 12/14/2022 Atrial-ventricular dual-paced rhythm History/Other: 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 Chronic kidney disease [...] patient. In addition, I have reviewed the resident's/BEAD BUILDER/SENIOR MOBILE DEVELOPER's care plan and agree with those findings [...] imaging are reviewed as detailed in the resident's/BEAD BUILDER/SENIOR MOBILE DEVELOPER's note * Jan Rebollar, GRIS - BRANCH OFFICE MANAGER - 12/16/2022 5:53 AM EDT Images from the original note were not included. Cardiothoracic Surgery/[facility] Progress Note PATIENT NAME: Dayana Quiñones DATE: 12/16/22 HPI: 82-year-old female seen in outpatient setting for surgical evaluation due to progressive shortness of breath with exertion. Patient with significant cardiac history: CAD (ME-October 2018-NEGRO to LAD and LCx; November 2018-NEGRO to RCA), paroxysmal atrial fibrillation, HFrEF-30%, 2+ MR, Surgery was discussed and patient consented to intervention. Surgery/Procedure: 12/14/22: CABGx2 (PEDRAZA LAD, SVG to OM1) MVRepair (28 ring) LAAL with atriclip with Dr. 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 Brumfield Associated attestation - Russ Montero MD - 12/16/2022 3:40 PM EDT I have personally seen the patient and examined along with the JACEY/resident team. I personally obtained the chang and relevent portions of the history and performed physical exam. I reviewed the chart including MAR , labs and radiology and discussed the patient's plan of action with the resident/JACEY.This note reflects my plan of care as [...] medications -NPO with meds crushed in puree, TANDEM MILL OPERATOR to follow -Continue aggressive pulmonary hygiene measures -Mobilize out of bed once HDS -Remainder as per JACEY documentation. Excluding procedures, the total critical care time invested in the care of this patient with life threatening/unstable organ failure today is at least 35 minutes. This includes direct patient contact, review of medical record, management of life support systems, review of data including imaging andlabs, discussions with other team members, patient's family and physicians. * Jessica Linares, OMARI - 12/15/2022 2:22 PM EDT Images from the original note were not included. Speech-Language Pathology SPEECH LANGUAGE PATHOLOGY [facility] Bedside Swallow Evaluation Patient Name: Dayana Quiñones [...] PRN Pt would benefit from skilled acute TANDEM MILL OPERATOR services to address safety for PO. Frequency: [...] be evaluated. Dysphagia History: No history of TANDEM MILL OPERATOR services in EMR with retrospective chart review [...] Atherosclerosis of coronary artery bypass graft of morongo heart without angina pectoris Chronic kidney disease GERD (gastroesophageal reflux disease) Hypertension Ischemic cardiomyopathy Mobitz type II atrioventricular block STEMI (ST elevation myocardial infarction) ([facility]) 11/16/2018 Stroke ([facility]) Vertigo Past Surgical History: Past Surgical History: Procedure Laterality Date BACK SURGERY fusion CARDIAC PACEMAKER PLACEMENT 08/02/2018 CORONARY STENT PLACEMENT 12/19/2018 total of 4 on different occasions Admission Diagnosis: Patient Active Problem List Diagnosis Date Noted CAD in morongo artery 12/14/2022 History of Present Illness: Assessment [...] and percutaneous coronary intervention with medications. A surgicalrevascularization is recommended in her case. On my review of the coronary angiogram, she does havegood targets and will need 2 vessel bypass [...] clinically appears adequate and delayed per palpation. 3- 4 swallows palpatedper bolus, likely indicative of impaired pharyngeal clearance. [...] Start: 12/15/22 Expected End: 12/29/22 Therapy Time TANDEM MILL OPERATOR Individual Minutes Time In: 1400 Time Out: 1415 Minutes: 15 OMARI Sosa * Antonio Hannon, PROFESSOR OF CHEMICAL ENGINEERING - BRANCH OFFICE MANAGER - 12/15/2022 11:57 AM EDT Department of Internal Medicine Division of Endocrinology, Diabetes, & Metabolism Endocrinology Note Patient Name: Dayana Quiñones : 1940 AGE: 82 y.o. [facility] Admission Date: 12/14/2022 Visit Date: 12/15/2022 Reason for Endocrine Consult: post op heart Provider/Team Requesting Consult: cts PCP: Amalia Avery MD Outpt Mail Inserter: No ASSESSMENT: Stress hyperglycemia Cad s/p cabgx2 [...] sulfate OR magnesium sulfate, norepinephrine, ondansetron ODT ORondansetron, oxyCODONE OR oxyCODONE, potassium chloride OR potassium chloride 20 mEq in sodium chloride 0.9 % 250 mL IVPB OR potassium chloride 40 mEq in sodium chloride 0.9 % 500 mL IVPB, potassium chloride CR, sodium chloride, sodium chloride, sodium chloride, sodium chloride 0.9% Diagnostic Workup: I reviewed pertinent Laboratory results, Radiographic results, and Other Clinical Notes at the timeof today's encounter. Labs: No components found for: [...] found for: CHOLHDLRATIO No results found for: [id number] No results found for: TSH, Y2AAQUX, S7DMBJT, THYROIDAB Radiology reportsas per the Radiologist Radiology: ECG 12 lead Result Date: 12/14/2022 Atrial-ventricular dual-paced rhythm History/Other: 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 Chronic kidney disease [...] patient. In addition, I have reviewed the resident's/BEAD BUILDER/SENIOR MOBILE DEVELOPER's care plan and agree with those findings I have performed a substantive portion of the the medical decision making. My findings are as follows: Insulin drip rate 1.5 unit/hr Vitals: BP (!) 112/47 (BP Location: Left arm, Patient Position: Lying) Pulse 60 Temp 37 C (98.6F) (Temporal) Resp 24 Ht 5' 3 (1.6 [...] imaging are reviewed as detailed in the resident's/BEAD BUILDER/SENIOR MOBILE DEVELOPER's note * Perry Booth RCP - 12/15/2022 7:22 AM EDT PS 10/+6 trial started at [address] Montero. * Jan Rebollar APRN - BRANCH OFFICE MANAGER - 12/15/2022 5:59 AM EDT Images from the original note were not included. Cardiothoracic Surgery/[facility] Progress Note PATIENT NAME: Dayana Quiñones DATE: 12/15/22 HPI: 82-year-old female seen in outpatient setting for surgical evaluation due to progressive shortness of breath with exertion. Patient with significant cardiac history: CAD (ME-October 2018-NEGRO to LAD and LCx; November 2018-NEGRO to RCA), paroxysmal atrial fibrillation, HFrEF-30%, 2+ MR, Surgery was discussed and patient consented to intervention. Surgery/Procedure: 12/14/22: CABGx2 (PEDRAZA LAD, SVG to OM1) MVRepair (28 ring) LAAL with atriclip with Dr. Lai on 12/14/22 Interval History: 12/15/22, POD# 1: remained intubated - alert following commands on minimal vent settings. Fluid bolus given overnight 25 albumin/250 LR. Calcium replaced x2- recheck pending. 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 Brumfield Associated attestation - Russ Montero MD - 12/15/2022 5:41 PM EDT I have personally seen the patient and examined along with the JACEY/resident team. I personally obtained the chang and relevent portions of the history and performed physical exam. I reviewed the chart including MAR , labs and radiology and discussed the patient's plan of action with the resident/JACEY.This note reflects my plan of care as [...] support systems, review of data including imaging andlabs, discussions with other team members, patient's family and physicians. * GRIS Bojorquez CRNA - 12/14/2022 8:32 AM EDT * GRIS Bojorquez CRNA - 12/14/2022 8:31 AM EDT documented in this encounterSAdena Fayette Medical [id number] NoteStart PACC Note Home Health Referral Educated patient and dtr on Home Care and services available. Patient offered choice of available HHC and agreeable to RN PT OT services with [facility]. Care Types: None Isolation Precautions: No active [...] is noted as yes - consider a ACID PLANT HELPER evaluation once the patient returns home. START PATIENT REGISTRATION INFORMATION Order Information Order Signing Physician: Danielle Lai MD Service Ordered RN ?: Yes Service Ordered PT ?: Yes Service Ordered OT ?: Yes Service Ordered ST ?: No Service Ordered ACID PLANT HELPER?:No Service Ordered NYLON WINDER?: No Following Physician: Dr Danielle Lai Following Physician Overseeing Physician: Dr Danielle Lai (Required for Residents only) Agreeable to Follow? Yes Date/Time of Call 12/29/22 11:32 AM Care Coordination Same Day SOC?: No Primary Care Physician: Amalia Avery MD Primary Care Physician Primary Care Physician Address: [address] [place] [address] Visit Instructions: N/A Service Discharge Location Type: Home with Home Health Care Service Facility Name: N/A Service Floor Facility: N/A Service Room No: N/A Demographics Patient Last Name: Nuria Patient First Name: Dayana Language/Communication Barrier: n/a Service Address: [address] [place] [address] Service City: [facility] ST: [place] Service ZIP: [address] Service Other phone numbers: Telephone Information: Emergency Contact: Extended Emergency Contact Information Primary Emergency Contact: Radha Huizar Mobile Relation: Daughter Secondary Emergency Contact: Masha Dickey Mobile Relation: Daughter Admission Information Admit Date: 12/14/2022 Patient status at discharge: Inpatient Admitting Diagnosis Atherosclerotic heart disease of morongo coronary artery without angina pectoris [I25.10] Nonrheumatic aortic (valve) stenosis [I35.0] CAD in morongo artery [I25.10] Caregiver Information Caregiver First Name: n/a Caregiver Last Name: n/a Caregiver Relationship to Patient n/a Caregiver Phone Number: n/a Caregiver Notes: N/A Repligen-Riskalyze List No END PATIENT REGISTRATION INFORMATION Pt Home Health [facility] home COVID Status 1. Do you have [...] denied - going to stay with dtr-Juani [phone] Discharge Date: 12/30/22 Referral Source-PACC: (Hospital/Unit): [facility] / T1-114/T1114 A End PACC [facility]09-01-2023 NoteCardiothoracic Surgery/[facility] Progress Note PATIENT NAME: Dayana Quiñones DATE: 12/29/22 HPI: 82-year-old female seen in outpatient setting for surgical evaluation due to progressive shortness of breath with exertion. Patient with significant cardiac history: CAD (ME-October 2018-NEGRO to LAD and LCx; November 2018-NEGRO to RCA), paroxysmal atrial fibrillation, HFrEF-30%, 2+ MR, Surgery was discussed and patient consented to intervention. Surgery/Procedure: 12/14/22: CABGx2 (PEDRAZA LAD, SVG to OM1) MVRepair (28 ring) LAAL with atriclip with Dr. 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 Osteopathic Physician: Dr. Brumfield [facility] [id number] NoteCare Management Progress Note P2P completed and upheld, offered appeal but will take 72 business hours. Spoke with patient's daughter Juani over the phone, based on updated PT recommendations agreeable to patient discharging to her home with [facility]. DME orders received, [facility] updated, plan dc tomorrow, patient updated. [...] Fernandez RN 12/20/2022 8:15 AM 12/21/2022 Naheed eFrnandez RN 12/19/2022 7:30 AM 12/19/2022 Naheed Fernandez RN 12/18/2022 10:11 AM 12/19/2022 Jessica Jaramillo RN 12/15/2022 10:02 AM 12/19/2022 Jan Rebollar APRN - [facility] 12/14/2022 1:03 PM 12/19/2022 Jan Rebollar APRN - [facility] MANAGER 12/14/2022 1:00 PM 12/21/2022 Jim Florian APRN - [facility] 12/14/2022 5:47 AM Length of Stay (Days): 15 GMLOS: 5.9 [facility]09-01-2023 Hospital Discharge instructions* Discharge Instructions* Janel Mayberry, PROFESSOR OF CHEMICAL ENGINEERING - [facility] - 12/29/2022 11:33 AM EDT Images from the original note were not included. [facility]: Cardiothoracic Surgery [address] [facility] #[phone] Notify us if the following occur - [...] 6 weeks (a gallon of milk weighs 8pounds). - Do not drive until you have [...] but do not pull yourself up with yourarms. - Shower daily. Do not take your [...] use any lotions, or powders, or ointments. * Discharge Instr - Other Orders* Quin Mondragon RN - 12/29/2022 1:20 PM EDT Discharging to Facility/ Agency Name: [facility] * Discharge Instr - ANU* Alicia Laurent RN - 12/30/2022 1:03 PM EDT documented in this [facility]08-31-2023 NoteCare Management Progress Note Patient remains on HLU [...] - JOELLE 12/14/2022 1:00 PM 12/21/2022 Jim Bautista Chiqui, PROFESSOR OF CHEMICAL ENGINEERING - BRANCH OFFICE MANAGER 12/14/2022 5:47 AM Length of Stay (Days): 14 GMLOS: 5.9 [facility]08-31-2023 NoteCardiothoracic Surgery/CCM Progress Note PATIENT NAME: Dayana Quiñones DATE: 12/28/22 HPI: 82-year-old female seen in outpatient setting for surgical evaluation due to progressive shortness of breath with exertion. Patient with significant cardiac history: CAD (ME-October 2018-NEGRO to LAD and LCx; November 2018-NEGRO to RCA), paroxysmal atrial fibrillation, HFrEF-30%, 2+ MR, Surgery was discussed and patient consented to intervention. Surgery/Procedure: 12/14/22: CABGx2 (PEDRAZA LAD, SVG to OM1) MVRepair (28 ring) LAAL with atriclip with Dr. 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 Osteopathic Physician: Dr. Brumfield [facility] [id number] [facility] Wound Care Progress Note Dayana Quiñones AGE: 82 y.o. GENDER: female : 1940 Subjective: HISTORY of PRESENT ILLNESS HPI Dayana Quiñones is a 82 y.o. female who presents for a wound follow up. HPI: Ms. Quiñones is a 82-year-old female seen in outpatient setting for surgical evaluation due to progressive shortness of breath with exertion. Patient with significant cardiac history: CAD (ME-October 2018-NEGRO to LAD and LCx; November 2018-NEGRO to RCA), paroxysmal atrial fibrillation, HFrEF-30%, 2+ MR. Patient underwent CABG, MVR, left atrial appendage and ELA on 12/14/22. Wound Care consulted for right chest and left leg. Patient sitting up in chair at time of visit. PAST MEDICAL HISTORY Past Medical History: Diagnosis Date Anxiety Atherosclerosis of coronary artery bypass graft of morongo heart without angina pectoris Chronic kidney disease GERD (gastroesophageal reflux disease) Hypertension Ischemic cardiomyopathy Mobitz type II atrioventricular block STEMI (ST elevation myocardial infarction) ([facility]) 11/16/2018 Stroke ([facility]) Vertigo PAST SURGICAL HISTORY Past Surgical History: [...] (Temporal) Resp 18 Ht 1.6 m (5' 3) Wt 76.6 kg (168 lb 14 oz) [...] tear - Apply skin prep then leave CENTRAL OFFICE INSTALLER daily and PRN Left calf: Surgical - Leave CENTRAL OFFICE INSTALLER - monitor for any s/s of infection Nutritional support Wound Care to follow Recommend to follow up at [facility] wound care center after hospital discharge. Any questions or concerns please secure chat [facility] wound/ostomy. Thank you for the consult! I personally [...] to provide important historical (more content not included)...[facility] [id number] NoteCare Management Progress Note Patient remains on HLU s/p MV repair and CABG x 2 POD # 13. Precert started to [facility] 12/26. Discharge Milestones and Delays Expected Date/Time: [...] Length of Stay (Days): 13 GMLOS: 5.9 [facility]08-30-2023 NoteCardiothoracic Surgery/CCM Progress Note PATIENT NAME: Dayana Quiñones DATE: 12/27/22 HPI: 82-year-old female seen in outpatient setting for surgical evaluation due to progressive shortness of breath with exertion. Patient with significant cardiac history: CAD (ME-October 2018-NEGRO to LAD and LCx; November 2018-NEGRO to RCA), paroxysmal atrial fibrillation, HFrEF-30%, 2+ MR, Surgery was discussed and patient consented to intervention. Surgery/Procedure: 12/14/22: CABGx2 (PEDRAZA LAD, SVG to OM1) MVRepair (28 ring) LAAL with atriclip with Dr. 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 Osteopathic Physician: Dr. Brumfield [facility]08-29-2023 NoteSPEECH LANGUAGE PATHOLOGY MODIFIED BARIUM SWALLOW STUDY Patient Name: Dayana Quiñones : 1940 Today's Date: 12/26/2022 Visit Info / [facility] ADMISSION DATE: 12/14/2022 ADMITTING DIAGNOSIS: has CAD in morongo artery on their problem list. General Information Radiologist: Dr. Bettencourt / Jos Verdugo Date of Onset: 12/14/2022 Date of [...] will complete a Soft & Bite-Sized with Machias training meal with above strategies. Continue Free Water Protocol. Current Diet Solid Consistency: Dysphagia Soft and Bite-Sized (Dysphagia III) Current Diet Liquid Consistency: Mildly Thick (Machias) Patient complaints: Hopeful to resume a regular diet Referring Diagnosis: SOB ; CABG Consistencies Administered: Reg solid, Machias cup, Thin cup, Thin straw Procedure Method: Self feed, Cup, Straw Patient Position: Lateral Patient Degrees: 90 Patient was referred for a MBSS to assess the efficiency of her swallow function, rule out aspiration and make recommendations regarding safe dietary consistencies, effective compensatory strategies, and safe eating environment. Past Medical History: Diagnosis Date Anxiety Atherosclerosis of coronary artery bypass graft of morongo heart without angina pectoris Chronic kidney disease GERD (gastroesophageal reflux disease) Hypertension Ischemic cardiomyopathy Mobitz type II atrioventricular block STEMI (ST elevation myocardial infarction) ([facility]) 11/16/2018 Stroke ([facility]) Vertigo Past Surgical History: Procedure Laterality Date BACK SURGERY fusion CARDIAC PACEMAKER PLACEMENT 08/02/2018 CORONARY STENT PLACEMENT 12/19/2018 total of 4 on different occasions Subjective General Chart Reviewed: Yes HPI: 82-year-old female seen in outpatient setting for surgical evaluation due to progressive shortness of breath with exertion. Patient with significant cardiac history: CAD (ME-October 2018-NEGRO to LAD and LCx; November 2018-NEGRO to RCA), paroxysmal atrial fibrillation, HFrE (more content not included)...[facility]08-29-2023 Procedure note* OMARI Maciel - 12/26/2022 3:34 PM EDT Images from the original note were not included. SPEECH LANGUAGE PATHOLOGY MODIFIED BARIUM SWALLOW STUDY Patient Name: Dayana Quiñones : 1940 Today's Date: 12/26/2022 Visit Info / [facility] ADMISSION DATE: 12/14/2022 ADMITTING DIAGNOSIS: has CAD in morongo artery on their problem list. General Information Radiologist: Dr. Bettencourt / Jos Verdugo Date of Onset: 12/14/2022 Date of Prior Study: 12/15/2022 Type of Study: Repeat MBS Results of Prior Study: Oral Phase: Impaired Oral Phase Oral Phase: Pt with mildly prolonged mastication & oral prep transit with mild- mod oral residuals with solids. Pt also with [...] with dry cookie), trace to mod pharyngeal wa ll residualss (greatest with larger bite of puree) & trace-mild pyriform residuals. Pt did haveimproved pharyngeal clearance & airway closure with effortful [...] will complete a Soft & Bite-Sized with Machias training meal with above strategies. Continue Free Water Protocol. Current Diet Solid Consistency: Dysphagia Soft and Bite-Sized (Dysphagia III) Current Diet Liquid Consistency: Mildly Thick (Machias) Patient complaints: Hopeful to resume a regular diet Referring Diagnosis: SOB ; CABG Consistencies Administered: Reg solid, Machias cup, Thin cup, Thin straw Procedure Method: Self feed, Cup, Straw Patient Position: Lateral Patient Degrees: 90 Patient was referred for a MBSS to assess the efficiency of her swallow function, rule out aspiration and make recommendations regarding safe dietary consistencies, effective compensatory strategies,and safe eating environment. Past Medical History: Diagnosis Date Anxiety Atherosclerosis of coronary artery bypass graft of morongo heart without angina pectoris Chronic kidney disease GERD (gastroesophageal reflux disease) Hypertension Ischemic cardiomyopathy Mobitz type II atrioventricular block STEMI (ST elevation myocardial infarction) ([facility]) 11/16/2018 Stroke ([facility]) Vertigo Past Surgical History: Procedure Laterality Date BACK SURGERY fusion CARDIAC PACEMAKER PLACEMENT 08/02/2018 CORONARY STENT PLACEMENT 12/19/2018 total of 4 on different occasions Subjective General Chart Reviewed: Yes HPI: 82-year-old female seen in outpatient setting for surgical evaluation due to progressive shortness of breath with exertion. Patient with significant cardiac history: CAD (ME-October 2018-NEGRO to LAD and LCx; November 2018-NEGRO to RCA), paroxysmal atrial fibrillation, HFrEF-30%, 2+ MR, Surgery was discussed and patient consented to intervention. Surgery/Procedure: 12/14/22: CABGx2 (PEDRAZA LAD, SVG to OM1) MVRepair (28 ring) LAAL with atriclip with Dr. Lai Interval History: 12/26/22, POD# 12. Afebrile, paced [...] same. (Calcifications of the larynx makes definition ofvocal cord penetration more difficult.) There is no [...] strengthening. Plan & Recommendations Recommendations/Treatment: Recommendations/Treat Requires TANDEM MILL OPERATOR Intervention: Yes Speech therapy is recommended during this hospitalization, Ongoing speech therapy is recommended atnext level of care Solid consistency: Easy to [...] Patient/Family education, Effortful swallow, Pharyngeal exercises, Carlene, Brunson Water Protocol Education Given: safety, goals explained, [...] consistency to allow for safe consumption of dailymeals (Progressing) Start: 12/18/22 Expected End: 01/01/23 Patient [...] Expected End: 12/30/22 Resolved: 12/17/22 Therapy Time TANDEM MILL OPERATOR Individual Minutes Time In: 1455 Time Out: 1515 Minutes: 20 Rosalia Ferro MS, CCC/TANDEM MILL OPERATOR * OMARI Rodriguez - 12/22/2022 12:04 PM EDT Images from the original note were not included. SPEECH LANGUAGE PATHOLOGY MODIFIED BARIUM SWALLOW STUDY Patient Name: Dayana Quiñones : 1940 Today's Date: 12/22/2022 Visit Info / [facility] ADMISSION DATE: 12/14/2022 ADMITTING DIAGNOSIS: has CAD in morongo artery on their problem list. General Information [...] a weak, ineffective cough. Recommend NPO with TANDEM MILL OPERATOR to instruct patient on Free Water Protocol with ice chips and water via teaspoon with double swallow and intermittent cough and re-swallow. Type of Study: Repeat MBS Current Diet Solid Consistency: NPO Current Diet Liquid Consistency: NPO, Other (comments) (Free water protocol) Patient complaints: thirsty Referring Diagnosis: dysphagia s/p CABG & MVR Consistencies Administered: Reg solid, Dysphagia Pureed (Dysphagia I), Machias cup, Machias teaspoon,Thin cup, Thin teaspoon (mixed with nectar) Procedure Method: Cup, Feed by clinician, Self feed, Spoon Patient Position: Lateral Patient was referred for a to assess the efficiency of her swallow function, rule out aspiration and make recommendations regarding safe dietary consistencies, effective compensatory strategies, and safe eating environment. Past Medical History: Diagnosis Date Anxiety Atherosclerosis of coronary artery bypass graft of morongo heart without angina pectoris Chronic kidney disease GERD (gastroesophageal reflux disease) Hypertension Ischemic cardiomyopathy Mobitz type II atrioventricular block STEMI (ST elevation myocardial infarction) ([facility]) 11/16/2018 Stroke ([facility]) Vertigo Past Surgical History: Procedure Laterality Date BACK SURGERY fusion CARDIAC PACEMAKER PLACEMENT 08/02/2018 CORONARY STENT PLACEMENT 12/19/2018 total of 4 on different occasions Subjective General Chart Reviewed: Yes Subjective Subjective: Alert & cooperative with Dobhoff in place & no order to remove as well as no notes from recent TANDEM MILL OPERATOR indicating need to remove so proceeded with MBSS Behavior/Cognition Behavior/Cognition: Alert, Cooperative, Pleasant mood Assessment Oral Preparation / Oral Phase: Oral Preparation / Oral Phase Oral Phase: Impaired Oral Phase Oral Phase: Pt with mildly prolonged mastication & oral prep transit with mild- mod oral residuals with solids. Pt also with [...] with dry cookie), trace to mod pharyngeal wa ll residualss (greatest with larger bite of puree) & trace-mild pyriform residuals. Pt did haveimproved pharyngeal clearance & airway closure with effortful [...] will complete a Soft & Bite-Sized with Machias training meal with above strategies. Continue Free Water Protocol. Plan & Recommendations Recommendations/Treatment: Recommendations/Treat Requires TANDEM MILL OPERATOR Intervention: Yes Referral To: GI Recommendations: F/U MBS Recommendations comment: Pt will likely need a follow up study prior to full upgrade to thin. Will be completing a training meal to ensure strategy use as well as does not fatigue for full meal priorto diet advancement. Pt may also need GI [...] for all oral intake, Remain upright for 30-45minutes after meals, No straws Therapeutic Interventions: Bolus control exercises, Diet tolerance monitoring, Tongue base strengthening, Patient/Family education, Effortful swallow, Pharyngeal exercises, Carlene Brunson Water Protocol Education Given: safety, goals explained, [...] consistency to allow for safe consumption of dailymeals Start: 12/18/22 Expected End: 01/01/23 Patient will [...] Expected End: 12/30/22 Resolved: 12/17/22 Therapy Time TANDEM MILL OPERATOR Individual Minutes Time In: 1010 Time Out: 1050 Minutes: 40 Ariadne Sainz MA, [facility]-TANDEM MILL OPERATOR * OMARI Logan - 12/17/2022 11:59 AM EDT Images from the original note were not included. SPEECH LANGUAGE PATHOLOGY MODIFIED BARIUM SWALLOW STUDY Patient Name: Dayana Quiñones : 1940 Today's Date: 12/17/2022 Visit Info / [facility] ADMISSION DATE: 12/14/2022 ADMITTING DIAGNOSIS: has CAD in morongo artery on their problem list. General Information Radiologist: Dr. Roberts Date of Onset: 12/14/2022 Type of Study: Initial MBS Current Diet Solid Consistency: NPO Current Diet Liquid Consistency: NPO Patient complaints: They won't let me have anything to drink Consistencies Administered: Reg solid, Dysphagia Pureed (Dysphagia I), Machias cup, Thin cup, Thin teaspoon, Thin straw Patient Position: Lateral Patient was referred for a modified barium swallow study to assess the efficiency of her swallow function, rule out aspiration and make recommendations regarding safe dietary consistencies, effectivecompensatory strategies, and safe eating environment. Past Medical History: Diagnosis Date Anxiety Atherosclerosis of coronary artery bypass graft of morongo heart without angina pectoris Chronic kidney disease GERD (gastroesophageal reflux disease) Hypertension Ischemic cardiomyopathy Sctotie type II atrioventricular block STEMI (ST elevation myocardial infarction) ([facility]) 11/16/2018 Stroke ([facility]) Vertigo Past Surgical History: Procedure Laterality Date BACK SURGERY fusion CARDIAC PACEMAKER PLACEMENT 08/02/2018 CORONARY STENT PLACEMENT 12/19/2018 total of 4 on different occasions Dayana Quiñones is a 82 y.o. female referred by Dr. Brumfield for CABG and MVR. Per note, pt has history of CAD s/p acute ME and underwent dug-eluting stent to LAD as well as leftcircumflex artery. In November 2018, she underwent a drug- eluting stent to the right coronary artery.In April 2020, she presented with chest pain and SOB. She underwent a stress test which demonstrated anteroapical ischemia. She also underwent a heart catheterization which demonstrated preserved EF of 60%, patent stents in the ostial left circumflex 70% stenosis. Medical therapy was recommended.Echocardiogram done in May 2021 demonstrated an EF [...] a weak, ineffective cough. Recommend NPO with TANDEM MILL OPERATOR to instruct patient on Free Water Protocol with ice chips and water via teaspoon with double swallow and intermittent cough and re-swallow. Plan & Recommendations Recommendations/Treatment: Recommendations/Treat Requires TANDEM MILL OPERATOR Intervention: Yes D/C Recommendations: Ongoing speech therapy [...] End: 12/30/22 OMARI Logan documented in this [facility]08-29-2023 NoteCare Management Progress Note Patient remains on HLU s/p MV repair and CABG x 2 POD # 12. VSS, on RA, paced on tele, passed speech eval-NG removed-now on soft bite sized diet with mildly thick liquids and PT recommending IPR-awaiting updated OT note in order to start precert to [facility]. Spoke with patient at bedside and daughter [...] 12/15/2022 10:02 AM 12/19/2022 Jan Rebollar APRN [facility] 12/14/2022 1:03 PM 12/19/2022 Jan Rebollar APRN [facility] 12/14/2022 1:00 PM 12/21/2022 Jim Florian APRN - [facility] 12/14/2022 5:47 AM Length of Stay (Days): 12 GMLOS: 5.9 [facility]08-29-2023 NoteCardiothoracic Surgery/CCM Progress Note PATIENT NAME: Dayana Quiñones DATE: 12/26/22 HPI: 82-year-old female seen in outpatient setting for surgical evaluation due to progressive shortness of breath with exertion. Patient with significant cardiac history: CAD (ME-October 2018-NEGRO to LAD and LCx; November 2018-NEGRO to RCA), paroxysmal atrial fibrillation, HFrEF-30%, 2+ MR, Surgery was discussed and patient consented to intervention. Surgery/Procedure: 12/14/22: CABGx2 (PEDRAZA LAD, SVG to OM1) MVRepair (28 ring) LAAL with atriclip with Dr. Lai Interval History: 12/26/22, POD# 12. Afebrile, paced [...] TRINI on CKD GERD S/p PPM 08/02/2018 ([facility]) Hx Stroke Paroxsymal Afib/mobitz type II AV [...] EF: 30% (12/18/22) Blood Conservation: Transfused post-op. Osteopathic Physician: Dr. Brumfield [facility]08-28-2023 NoteCare Management Progress Note Patient remains on HLU [...] GRIS Baca CNP 12/14/2022 1:03 PM 12/19/2022 Jan Rebollar, PROFESSOR OF CHEMICAL ENGINEERING - BRANCH OFFICE MANAGER 12/14/2022 1:00 PM 12/21/2022 Jim Florian, PROFESSOR OF CHEMICAL ENGINEERING - BRANCH OFFICE MANAGER 12/14/2022 5:47 AM Length of Stay (Days): 11 GMLOS: 5.9 [facility] [id number] [facility] Wound Care Progress Note Dayana Quiñones AGE: 82 y.o. GENDER: female : 1940 Subjective: HISTORY of PRESENT ILLNESS HPI Dayana Quiñones is a 82 y.o. female who presents for a wound follow up. HPI: Ms. Quiñones is a 82-year-old female seen in outpatient setting for surgical evaluation due to progressive shortness of breath with exertion. Patient with significant cardiac history: CAD (ME-October 2018-NEGRO to LAD and LCx; November 2018-NEGRO to RCA), paroxysmal atrial fibrillation, HFrEF-30%, 2+ MR. Patient underwent CABG, MVR, left atrial appendage and ELA on 12/14/22. Wound Care consulted for right chest and left leg. Patient sitting up in bed side chair at time of visit- PAST MEDICAL HISTORY Past Medical History: Diagnosis Date Anxiety Atherosclerosis of coronary artery bypass graft of morongo heart without angina pectoris Chronic kidney disease GERD (gastroesophageal reflux disease) Hypertension Ischemic cardiomyopathy Mobitz type II atrioventricular block STEMI (ST elevation myocardial infarction) ([facility]) 11/16/2018 Stroke ([facility]) Vertigo PAST SURGICAL HISTORY Past Surgical History: [...] (Temporal) Resp 18 Ht 1.6 m (5' 3) Wt 77.4 kg (170 lb 10.2 oz) [...] and PRN Left calf: Surgical - Leave CENTRAL OFFICE INSTALLER - monitor for any s/s of infection Nutritional support Wound Care to follow Recommend to follow up at [facility] wound care center after hospital discharge. Any questions or concerns please secure chat [facility] wound/ostomy. Thank you for the consult! I personally [...] the time of this documentaton. Portions of th (more content not included)...[facility]08-28-2023 Note Cardiothoracic Surgery/CCM Progress Note PATIENT NAME: Dayana Quiñones DATE: 12/25/22 HPI: 82-year-old female seen in outpatient setting for surgical evaluation due to progressive shortness of breath with exertion. Patient with significant cardiac history: CAD (ME-October 2018-NEGRO to LAD and LCx; November 2018-NEGRO to RCA), paroxysmal atrial fibrillation, HFrEF-30%, 2+ MR, Surgery was discussed and patient consented to intervention. Surgery/Procedure: 12/14/22: CABGx2 (PEDRAZA LAD, SVG to OM1) MVRepair (28 ring) LAAL with atriclip with Dr. aLi Interval History: 12/25/22, POD# 11: Afebrile, paced [...] TRINI on CKD GERD S/p PPM 08/02/2018 ([facility]) Hx Stroke Paroxsymal Afib/mobitz type II AV [...] EF: 30% (12/18/22) Blood Conservation: Transfused post-op. Osteopathic Physician: Dr. Brumfield [facility]08-27-2023 NoteCardiothoracic Surgery/[facility] Progress Note PATIENT NAME: Dayana Quiñones DATE: 12/24/22 HPI: 82-year-old female seen in outpatient setting for surgical evaluation due to progressive shortness of breath with exertion. Patient with significant cardiac history: CAD (ME-October 2018-NEGRO to LAD and LCx; November 2018-NEGRO to RCA), paroxysmal atrial fibrillation, HFrEF-30%, 2+ MR, Surgery was discussed and patient consented to intervention. Surgery/Procedure: 12/14/22: CABGx2 (PEDRAZA LAD, SVG to OM1) MVRepair (28 ring) LAAL with atriclip with Dr. 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 Brumfield [facility] [id number] NoteCare Management Progress Note Patient remains on HLU [...] 1:00 PM 12/21/2022 Jim Florian APRN - BRANCH OFFICE MANAGER 12/14/2022 5:47 AM Length of Stay (Days): 8 GMLOS: 5.9 [facility]08-25-2023 NoteSPEECH LANGUAGE PATHOLOGY MODIFIED BARIUM SWALLOW STUDY Patient Name: Dayana Quiñones : 1940 Today's Date: 12/22/2022 Visit Info / [facility] ADMISSION DATE: 12/14/2022 ADMITTING DIAGNOSIS: has CAD in morongo artery on their problem list. General Information [...] a weak, ineffective cough. Recommend NPO with TANDEM MILL OPERATOR to instruct patient on Free Water Protocol with ice chips and water via teaspoon with double swallow and intermittent cough and re-swallow. Type of Study: Repeat MBS Current Diet Solid Consistency: NPO Current Diet Liquid Consistency: NPO, Other (comments) (Free water protocol) Patient complaints: thirsty Referring Diagnosis: dysphagia s/p CABG & MVR Consistencies Administered: Reg solid, Dysphagia Pureed (Dysphagia I), Machias cup, Machias teaspoon, Thin cup, Thin teaspoon (mixed with nectar) Procedure Method: Cup, Feed by clinician, Self feed, Spoon Patient Position: Lateral Patient was referred for a to assess the efficiency of her swallow function, rule out aspiration and make recommendations regarding safe dietary consistencies, effective compensatory strategies, and safe eating environment. Past Medical History: Diagnosis Date Anxiety Atherosclerosis of coronary artery bypass graft of morongo heart without angina pectoris Chronic kidney disease GERD (gastroesophageal reflux disease) Hypertension Ischemic cardiomyopathy Mobitz type II atrioventricular block STEMI (ST elevation myocardial infarction) (HCC) 11/16/2018 Stroke ([facility]) Vertigo Past Surgical History: Procedure Laterality Date BACK SURGERY fusion CARDIAC PACEMAKER PLACEMENT 08/02/2018 CORONARY STENT PLACEMENT 12/19/2018 total of 4 on different occasions Subjective General Chart Reviewed: Yes Subjective Subjective: Alert & cooperative with Dobhoff in place & no order to remove as well as no notes from recent TANDEM MILL OPERATOR indicating need to remove so proceeded with [...] may need further G (more content not included)...[facility]08-24-2023 NoteCare Management Progress Note Patient remains on HLU [...] RN 12/15/2022 10:02 AM 12/19/2022 Jan Rebollar, PROFESSOR OF CHEMICAL ENGINEERING [facility] 12/14/2022 1:03 PM 12/19/2022 Jan Rebollar APRN [facility] 12/14/2022 1:00 PM 12/21/2022 Jim Florian PROFESSOR OF CHEMICAL ENGINEERING [facility] 12/14/2022 5:47 AM Length of Stay (Days): 7 GMLOS: 5.9 [facility]08-24-2023 [facility] [facility] Cardiology /Electrophysiology Progress Note HPI / Interval History: Dayana Quiñones is a 82 y.o. female with hx of pAF, CAD (ME-October 2018-NEGRO to LAD and LCx; November 2018-NEGRO to RCA), ICM/HFrEF presenting for CABG. She underwent CABG on 12/14/22: CABGx2 (PEDRAZA LAD, SVG to OM1) MV Repair (28 ring) LAAL with atriclip. She reports feeling more SOB today when she was transferred from bed to chair. Denies dizziness overnight. Assessment/Plan HFrEF (30%) ICM She appears more SOB this morning. JVP slightly increased to [id number]. Decreased air entry on the left lung [...] Interpretation Summary Left Ventricl (more content not included)...[facility]08-23-2023 NoteCare Management Progress Note Chart reviewed. Pt remains on HLU s/p CABGx2. TANDEM MILL OPERATOR following, recommending NPO, dobhoff in place, repeat MBSS at end of week. Ongoing medication adjustments. Discharge Plan: PT recommending IPR, pt wants daughters to decide facility, spoke with daughter Juani over the phone, Radha and Juani would like referral to [facility]. Referral placed in [facility], liaison notified. TCC [...] AM Length of Stay (Days): 6 GMLOS: 5.9[facility]08-23-2023 Consult note* Zainab Brooks MD - 12/20/2022 12:12 PM EDTAssociated Order(s): IP CONSULT TO CARDIOLOGY [facility] [place] [facility] Cardiology /Electrophysiology Consult Note Reason for Consult/Chief Complaint: GDMT and HF optimization Referring provider: Dr. Lai Established mold sander: Dr. Dunn ([facility]) History of Present Illness: Dayana Quiñones is a 82 y.o. female with hx of pAF, CAD (ME-October 2018-NEGRO to LAD and LCx; November 2018-NEGRO [...] Thought content normal. Laboratory Tests: Recent Labs 12/18/22 0306 12/19/22 0152 12/19/22 0421 12/20/22 0213 NA 144 143 -- 142 K 4.0 3.4* 4.6 3.2* CL 105 101 -- 102 CO2 25 28 -- 27 BUN 48* 48* -- 56* CREATININE 1.27* 1.12* -- 1.12* EGFR 42.0* 48.9* -- 48.9* No results for input(s): CKTOTAL, CKMB, CKMBINDEX, TROPONINI in the last 72 hours. Recent Labs 12/18/22 03012/19/22 0152 12/20/22 0213 WBC 13.0* 13.3* 14.9* [...] clinical findings and my assessment and plan. * Floridalma Hudson NP - 12/20/2022 10:40 AM EDTAssociated Order(s): IP WOUND CARE NURSE CONSULT TO EVAL Images from the original note were not included. [facility] Wound Care CONSULT Note Dayana Quiñones AGE: 82 y.o. GENDER: female : 1940 Subjective: HISTORY of PRESENT ILLNESS HPI Dayana Quiñones is a 82 y.o. female who presents for a wound consult. HPI: Ms. Quiñones is a 82-year-old female seen in outpatient setting for surgical evaluation due to progressive shortness of breath with exertion. Patient with significant cardiac history: CAD (ME-October 2018-NEGRO to LAD and LCx; November 2018- NEGRO to RCA), paroxysmal atrial fibrillation, HFrEF-30%, 2+ MR. Patient underwent CABG, MVR, left atrial appendage and ELA on 12/14/22. Wound Care consulted for right chest and left leg. PAST MEDICAL HISTORY Past Medical History: Diagnosis Date Anxiety Atherosclerosis of coronary artery bypass graft of morongo heart without angina pectoris Chronic kidney disease GERD (gastroesophageal reflux disease) Hypertension Ischemic cardiomyopathy Mobitz type II atrioventricular block STEMI (ST elevation myocardial infarction) ([facility]) 11/16/2018 Stroke ([facility]) Vertigo PAST SURGICAL HISTORY Past Surgical History: [...] into the left eye in the morning and1 drop in the evening. apixaban (Eliquis) 5 MG tablet Take 5 mg by mouth 2 times daily. REVIEW OF SYSTEMS Pertinent items are noted in HPI. Objective: BP 117/51 (BP Location: Left arm, Patient Position: Sitting) Pulse 70 Temp 36.2 C (97.1 F) (Temporal) Resp 20 Ht 1.6 m (5' 3) Wt 76.6 kg (168 lb 14 oz) SpO2 95% PF 55 L/min BMI 29.91kg/m PHYSICAL EXAM General appearance: in no apparent [...] tear - Apply skin prep then leave CENTRAL OFFICE INSTALLER daily and PRN Left calf: Surgical - Leave CENTRAL OFFICE INSTALLER - monitor for any s/s of infection Nutritional support Wound Care to follow Recommend to follow up at [facility] wound care center after hospital discharge. Any questions or concerns please secure chat [facility] wound/ostomy. Thank you for the consult! I personally obtained the chang and critical portions of the history and physical exam. I reviewed the labs, imaging studies, and electronic medical record. I reviewed the chart documentation and discussed the patient with treatment team members. I have edited the note to reflect my clinical findingsand my assessment and plan. Please note, the time of this note does not reflect the time I saw thispatient today, but the time of this documentaton. [...] Decision making for today's visit and to reflectmy own independent evaluation of this patient. * Antonio Hannon APRN - BRANCH OFFICE MANAGER - 12/14/2022 2:10 PM EDTAssociated Order(s): IP CONSULT TO ENDOCRINOLOGY Department of Internal Medicine Division of Endocrinology, Diabetes, & Metabolism Endocrinology Note Patient Name: Dayana Quiñones : 1940 AGE: 82 y.o. Room/Bed: T1114/T1114 A Admission Date: 12/14/2022 Visit Date: 12/14/2022 Reason for Endocrine Consult: post op heart Provider/Team Requesting Consult: cts PCP: Amalia Avery MD Outpt Mail Inserter: No ASSESSMENT: Stress hyperglycemia Cad s/p cabgx2 [...] furosemide (LASIX) 40 mg, Oral, Daily NON FORMULA [facility] omeprazole (PRILOSEC) 40 mg, [...] results, and Other Clinical Notes at the timeof today's encounter. Labs: No components found for: [...] found for: CHOLHDLRATIO No results found for: DRLX31VLP No results found for: TSH, I9IWNIL, T8WFAKV, THYROIDAB Radiology reportsas per the Radiologist Radiology: ECG 12 lead Result Date: 12/14/2022 Atrial-ventricular dual-paced rhythm History/Other: 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 Chronic kidney disease [...] patient. In addition, I have reviewed the resident's/BEAD BUILDER/SENIOR MOBILE DEVELOPER's care plan and agree with those findings [...] imaging are reviewed as detailed in the resident's/BEAD BUILDER/SENIOR MOBILE DEVELOPER's note * GRIS Baca CNP - 12/14/2022 1:00 PM EDT Images from the original note were not included. [facility]: Critical Care Consultation Note Date: 12/14/22 PATIENT NAME: Dayana Quiñones : 1940 (82 y.o.) Reason for Consult: Critical Care & Vent Management Osteopathic Physician: Dr. Brumfield ([place]) PCP: Dr. Amalia Avery HPI: 82-year-old female seen in outpatient setting for surgical evaluation due to progressive shortness of breath with exertion. Patient with significant cardiac history: CAD (ME-October 2018-NEGRO to LAD and LCx; November 2018-NEGRO to RCA), paroxysmal atrial fibrillation, HFrEF-30%, 2+ MR, Surgery was discussed and patient consented to intervention. Surgery: 12/14/22: CABGx2 (PEDRAZA LAD, SVG to OM1) MVRepair (28 ring) LAAL with atriclip with Dr. Lai on 12/14/22 Interval History: 12/14/22: POD #0: [...] Atherosclerosis of coronary artery bypass graft of morongo heart without angina pectoris, Chronic kidney disease, GERD (gastroesophageal reflux disease), Hypertension, Ischemic cardiomyopathy, Mobitz type II atrioventricular block, STEMI (ST elevation myocardial infarction) (HCC) (11/16/2018), Stroke ([facility]), and Vertigo. Past Surgical History: has a [...] to affected area daily 12/04/22 12/04/23 Yes Milan Florian, PROFESSOR OF CHEMICAL ENGINEERING - BRANCH OFFICE MANAGER carvedilol (Coreg) 12.5 MG tablet Take 1 [...] into the left eye in the morning and1 drop in the evening. 11/16/21 Yes Historical Provider, apixaban (Eliquis) 5 MG tablet Take 5 mg by mouth 2 times daily. 09/19/22 Historical Provider, ERYTHROMYCIN EX Apply topically. 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 documented in this [facility]08-22-2023 NoteCare Management Progress Note Chart reviewed. Pt remains on HLU s/p CABGx2. TANDEM MILL OPERATOR following, dobhoff while NPO. Discharge Plan: PT [...] AM Length of Stay (Days): 5 GMLOS: [address] [place], [place] 3788508-20-2023 NoteNutrition Assessment Type and Reason for Visit: Initial (tech referral for CABG and dysphagia) Nutrition Recommendations/Plan: 1. Pt is currently NPO. Pt is POD #3 CABGx2 (PEDRAZA LAD, SVG to OM1) MVRepair (28 ring) LAAL with atriclip on 12/14/22. Pt was extubated on 12/15 and TANDEM MILL OPERATOR recommending NPO. Pt went for MBSS today [...] had full liquids ordered on 12/15 however TANDEM MILL OPERATOR recs NPO and diet was changed back, failed MBSS today) Weight Loss: No significant weight loss (pt weight has been stable PRODUCTION MACHINIST- pt CBW 172# no method on 12/17, [...] soundly) Fluid Accumulation: No significant fluid accumulation Manager Terminal Strength: Not Performed Nutrition Assessment: pt with PMH significant for GERD, anxiety, CKD, HTN, stroke and CAD s/p acute ME who presented to [facility] ED on 12/14/22 for planned procedure, [...] on 12/14/22, pt was successfully extubated to ND on 12/15, Endo was consulted due to post op heart and was managing insulin gtt- noted 12/16 blood glucose readings have been reasonable without requiring insulin and no previous diagnosis of diabetes thus signed off 12/16, TANDEM MILL OPERATOR was consulted and completed assessment 12/15 and noted s/s oropharyngeal dysphagia + overt clinical s/s pulmonary compromise with PO thus recommended NPO, TANDEM MILL OPERATOR re-assessed on 12/16 and recommended continued NPO with completion of MBSS which was done today with recs noted for NPO with TANDEM MILL OPERATOR to instruct patient on Free Water Protocol with ice chips and water via teaspoon with double swallow and intermittent cough and re-swallow, noted epicardial wire and chest tubes removed today without difficulty per SENIOR MOBILE DEVELOPER documentation, in terms of nutrition pt has been NPO throughout admit (briefly full liquids were provided on 12/15 but then modified to NPO s/p TANDEM MILL OPERATOR recs), at time of presentation to room pt daughter is at bedside and pt is sleeping soundly, daughter states that she just recently arrived and was awaiting an update from staff about events of today, pt daughter confirms pt has (more content not included)...[facility] [id number] NoteSPEECH LANGUAGE PATHOLOGY MODIFIED BARIUM SWALLOW STUDY Patient Name: Dayana Quiñones : 1940 Today's Date: 12/17/2022 Visit Info / H ADMISSION DATE: 12/14/2022 ADMITTING DIAGNOSIS: has CAD in morongo artery on their problem list. General Information Radiologist: Dr. Roberts Date of Onset: 12/14/2022 Type of Study: Initial MBS Current Diet Solid Consistency: NPO Current Diet Liquid Consistency: NPO Patient complaints: They won't let me have anything to drink Consistencies Administered: Reg solid, Dysphagia Pureed (Dysphagia I), Machias cup, Thin cup, Thin teaspoon, Thin straw Patient Position: Lateral Patient was referred for a modified barium swallow study to assess the efficiency of her swallow function, rule out aspiration and make recommendations regarding safe dietary consistencies, effective compensatory strategies, and safe eating environment. Past Medical History: Diagnosis Date Anxiety Atherosclerosis of coronary artery bypass graft of morongo heart without angina pectoris Chronic kidney disease GERD (gastroesophageal reflux disease) Hypertension Ischemic cardiomyopathy Mobitz type II atrioventricular block STEMI (ST elevation myocardial infarction) ([facility]) 11/16/2018 Stroke ([facility]) Vertigo Past Surgical History: Procedure Laterality Date BACK SURGERY fusion CARDIAC PACEMAKER PLACEMENT 08/02/2018 CORONARY STENT PLACEMENT 12/19/2018 total of 4 on different occasions Dayana Quiñones is a 82 y.o. female referred by Dr. Brumfield for CABG and MVR. Per note, pt has history of CAD s/p acute ME and underwent dug-eluting stent to LAD as [...] a weak, ineffective cough. Recommend NPO with TANDEM MILL OPERATOR to instruct patient on Free Water Protocol with ice chips and water via teaspoon with double swallow and intermittent cough and re-swallow. Plan & Recommendations Recommendations/Treatment: Recommendations/Treat Requires TANDEM MILL OPERATOR Intervention: Yes D/C Recommendations: Ongoing speech therapy [...] appropriate (Initiated) Start: 12/16/22 Expected End: 12/30/22 Bela Sewell [facility] [id number] NoteCentral Venous Line: Date/Time: 12/14/2022 7:45 AM A [...] site was prepped with Chlorhexidine. Size: 8 Guamanian Catheter type: introducer Number of Lumens: single [...] anesthesiologist Anesthesiologist: Rom Snider DO Performed by: Ciera Molina APRN [facility] Authorized by: Ciera Molina APRN [facility] [id number] NotePatient: Dayana Quiñones Procedure Summary Date: 12/14/22 Room / Location: [facility] Operating Room Anesthesia Start: 0708 Anesthesia Stop: 1304 Procedures: CABG, MITRAL VALVE REPAIR, LEFT ATRIAL APPENDAGE CLIP, ELA (Chest) Echocardiography transesophageal real-time VALVULOPLASTY MITRAL VALVE WITH CARDIOPULMONARY BYPASS (Chest) Diagnosis: Atherosclerotic heart disease of morongo coronary artery without angina pectoris Nonrheumatic aortic (valve) stenosis (Atherosclerotic heart disease of morongo coronary artery without angina pectoris [I25.10]) (Nonrheumatic aortic (valve) stenosis [I35.0]) Surgeons: Danielle Lai MD Responsible Provider: Rom Snider DO Anesthesia [...] discharged once all PACU criteria has been met.[facility] [id number] NotePatient: Dayana Quiñones Procedure Summary Date: 12/14/22 Room / Location: [facility] Operating Room Anesthesia Start: 0708 Anesthesia Stop: 1304 Procedures: CABG, MITRAL VALVE REPAIR, LEFT ATRIAL APPENDAGE CLIP, ELA (Chest) Echocardiography transesophageal real-time VALVULOPLASTY MITRAL VALVE WITH CARDIOPULMONARY BYPASS (Chest) Diagnosis: Atherosclerotic heart disease of morongo coronary artery without angina pectoris Nonrheumatic aortic (valve) stenosis (Atherosclerotic heart disease of morongo coronary artery without angina pectoris [I25.10]) (Nonrheumatic aortic (valve) stenosis [I35.0]) Surgeons: Danielle Lai MD Responsible Provider: Rom Snider DO Anesthesia [...] Allowed opportunity for questions and acknowledgement of understanding.[facility]08-17-2023 NoteAirway Date/Time: 12/14/2022 7:29 AM Urgency: scheduled General Information and Staff Patient location during procedure: Procedural Anesthesiologist: Rom Snider DO Resident/BARKING MACHINE FEEDER: GRIS Bojorquez CRNA Performed: anesthesiologist Performed by: [...] approach: 2 Number of other approaches attempted: [address] [place], [place] [address]-17-2023 Note Arterial Line: Date/Time: 12/14/2022 7:29 AM [...] procedure well with no complications. Staffing Performed: BARKING MACHINE FEEDER Resident/BARKING MACHINE FEEDER: GRIS Bojorquez CRNA Performed by: GRIS Bojorquez CRNA Authorized by: GRIS Bojorquez CRNAAsc[facility] St. [facility]-2023 NoteH&P reviewed. The patient was examined and there are no changes to the H&P. [facility]08-17-2023 History and physical note* Danielle Lai MD - 12/14/2022 6:58 AM EDT H&P reviewed. The patient was examined and there are no changes to the H&P. Source Note - Danielle Lai MD - 11/29/2022 11:00 AM EDT Images from the original note were not included. [facility] [address] [facility] [address] Dept: [phone] Dept Loc: [phone] Visit type: New Reason for Visit: CAD, [...] and percutaneous coronary intervention with medications. A surgicalrevascularization is recommended in her case. On my review of the coronary angiogram, she does havegood targets and will need 2 vessel bypass [...] been on medications for 2-3 months without reliefof her symptoms. She is cell compensated. She [...] or ischemia or arrhythmia, and . Danielle Lai MD Cardiothoracic Surgery History of Present Illness Dayana Quiñones is a 82 y.o. female referred by Dr. Brumfield for CABG and MVR. Per note, pt has history of CAD s/p acute ME and underwent dug-eluting stent to LAD as well as leftcircumflex artery. In November 2018, she underwent a drug- eluting stent to the right coronary artery.In April 2020, she presented with chest pain and SOB. She underwent a stress test which demonstrated anteroapical ischemia. She also underwent a heart catheterization which demonstrated preserved EF of 60%, patent stents in the ostial left circumflex 70% stenosis. Medical therapy was recommended.Echocardiogram done in May 2021 demonstrated an EF [...] Atherosclerosis of coronary artery bypass graft of morongo heart without angina pectoris Hypertension Ischemic cardiomyopathy Mobitz type II atrioventricular block STEMI (ST elevation myocardial infarction) ([facility]) 11/16/2018 Vertigo Past Surgical History Past Surgical [...] 1 drop into the left eye every otherday., Disp: , Rfl: furosemide (Lasix) 40 MG tablet, Take 40 mg by mouth daily., Disp: , Rfl: omeprazole (PriLOSEC) [address] capsule, Take 40 mg by mouth in the morning., Disp: , Rfl: sacubitril-valsartan (Entresto) 24-26 MG tablet, Take 1 tablet by mouth in the morning and 1 tabletin the evening., Disp: , Rfl: timolol (Timoptic) [...] the proposed treatment or procedure have been discussed.The risks and benefits of the proposed treatment [...] This note may have been dictated using [employer] Edition 2.6 and/or [employer] Voice Recognition Feature. The document was proofread, however unrecognized voice recognition hiv/aids care nurse errors may be present. * Niru Sen APRN - JOELLE - 12/08/2022 12:30 PM EDT Images from the original note were not included. Comprehensive Pre Surgical History and Physical ? Name: Dayana Quiñones : 1940 (Age-82 y.o.) Date of Service: Pt seen/examined on 12/08/2022 Procedure Information Date/Time: 12/14/22 0700 Procedures: CABG, MITRAL VALVE REPAIR, ELA (Chest) Echocardiography transesophageal real-time VALVULOPLASTY MITRAL VALVE WITH CARDIOPULMONARY BYPASS (Chest) Location: [facility] Operating Room Surgeons: Danielle Lai MD Chief Complaint: Atherosclerotic heart disease of morongo coronary artery without angina pectoris Nonrheumatic aortic (valve) stenosis ASSESSMENT/PLAN: Patient is considered intermediate risk for this high risk procedure/surgery () with no reducible risk factors. Based on the above evaluation, the benefits of the planned procedure likely exceed the risks. The patient is medically optimized to proceed with the planned procedure without any further c ardiopulmonary testing. 1) Atherosclerotic heart disease of morongo coronary artery without angina pectoris Nonrheumatic aortic (valve) stenosis - Managed per surgery 2) CAD/ Pacemaker/ CHF/ HLD/ HTN Eliquis (surgeon instructed to hold 5 days) ASA 81 mg (per M Chiqui PROFESSOR OF CHEMICAL ENGINEERING orders- hold DOS) Lipitor Coreg Entresto Lasix [...] we are asked to see/evaluate by Elieser Lai for pre-operative evaluation prior toabove procedure. ? Denies history of TIA, CVA Past Medical History: Past Medical History: No date: Anxiety No date: Atherosclerosis of coronary artery bypass graft of morongo heart without angina pectoris No date: Chronic kidney disease No date: GERD (gastroesophageal reflux disease) No date: Hypertension No date: Ischemic cardiomyopathy No date: Mobitz type II atrioventricular block 11/16/2018: STEMI (ST elevation myocardial infarction) ([facility]) No date: Stroke ([facility]) No date: Vertigo Past Surgical History: Past [...] daily 12/04/22 12/04/23 Jim Florian APRN - JOELLE carvedilol (Coreg) 12.5 MG tablet Take 1 tablet by mouth in the morning and 1 tablet in the evening. Take with meals. 11/14/22 Historical Provider, chlorhexidine (Peridex) 0.12 % solution Use 15 mL in the mouth or throat Once for 1 dose. Swish for30 seconds and spit out the night before [...] into the left eye in the morning and1 drop in the evening. 11/16/21 Historical Provider, CHRONIC NARCOTIC USE: No Allergies: Morphine If patient has opioid allergy, is it okay to take Acetaminophen: Yes Social History: TOBACCO: reports that she quit smoking about 55 years ago. Her smoking use included cigarettes. Renuka never used smokeless tobacco. ETOH: reports no [...] 533 ms Heart Rate: 67 bpm P [place]: 215 degrees QRS [place]: -42 degrees T Wave [place]: 105 degrees Cath report from 11/22/22 METS <4 Electronically signed by: Nriu Sen APRN - BRANCH OFFICE MANAGER Date: 12/08/2022 at 1:53 PM documented in this [facility]08-14-2023 History of Present illness Narrative* Danielle Lai MD - 12/11/2022 9:00 AM EDT Patient was seen today via Telehealth by agreement and consent. I used the following Telehealth technology: Audio capability only. Total length of call 20 minutes. The patient was offered and advisedvideo for a more comprehensive evaluation, but the [...] stated that they are currently in the [facility]. If the patientis a minor, permission has been obtained by the parent or guardian for the patient to receive medical care at this visit. Discussed her CT scans No findings to preclude surgical intervention She understands Danielle Lai MD Cardiothoracic Surgery documented in this [facility]08-14-2023 Telephone encounter Note* Telephone Encounter - Yelena Mills RN - 12/11/2022 8:47 AM EDT Called pt insurance company and verified authorization for surgery scheduled for 12/14/22. Pt has been approved for inpatient surgery from 12/14-12/18/22. Authorization number is [id number]. Pt notified. [id number] Miscellaneous Notes* Telephone Encounter - Yelena Mills RN - 12/11/2022 8:47 AM EDT Called pt insurance company and verified authorization for surgery scheduled for 12/14/22. Pt has been approved for inpatient surgery from 12/14-12/18/22. Authorization number is [id number]. Pt notified. * Telephone Encounter - Nicolás Mcgowan - 12/08/2022 4:08 PM EDT Pt is calling to ask if the surgery has been pre approved through her insurance. * Telephone Encounter - Yaenli Medrano - 12/01/2022 2:01 PM EDT Prep for Procedure Order Request: 12/01/22 Surgeon: Dr. Lai Surgery/Procedure: CABG, mitral valve repair & ELA Plan Admit: Yes PAT Appointment: 12/08/22 at 12:30 PM Date if yes: Date of Surgery/Procedure: 12/15/22 at 7:00 AM Medication needed held: [] None [x] Other: Eliquis Medication needed prescribed: [] None [x] Nasal ointment and mouth rinse [] Other: [facility] documented in this encounterSAdena Fayette Medical [id number] Telephone encounter Note* Telephone Encounter - Nicolás Mcgowan - 12/08/2022 4:08 PM EDT Pt is calling to ask if the surgery has been pre approved through her insurance. [id number] NotePatient: Dayana Quiñones Procedure Information Date/Time: 12/14/22 0700 Procedures: CABG, MITRAL VALVE REPAIR, ELA (Chest) Echocardiography transesophageal real-time VALVULOPLASTY MITRAL VALVE WITH CARDIOPULMONARY BYPASS (Chest) Location: [facility] OR [facility] Operating Room Surgeons: Danielle Lai MD Relevant Problems Anesthesia (within normal limits) Cardio (+) CAD in morongo artery Past Medical History: Past Medical History: No date: Anxiety No date: Atherosclerosis of coronary artery bypass graft of morongo heart without angina pectoris No date: Hypertension No date: Ischemic cardiomyopathy No date: Mobitz type II atrioventricular block 11/16/2018: STEMI (ST elevation myocardial infarction) ([facility]) No date: Vertigo Past Surgical History: Past [...] PAT protocol A-V dual-paced complexes w/ some [facility]08-11-2023 NoteComprehensive Pre Surgical History and Physical ? Name: Dayana Quiñones : 1940 (Age-82 y.o.) Date of Service: Pt seen/examined on 12/08/2022 Procedure Information Date/Time: 12/14/22 0700 Procedures: CABG, MITRAL VALVE REPAIR, ELA (Chest) Echocardiography transesophageal real-time VALVULOPLASTY MITRAL VALVE WITH CARDIOPULMONARY BYPASS (Chest) Location: [address] Operating Room Surgeons: Danielle Lai MD Chief Complaint: Atherosclerotic heart disease of morongo coronary artery without angina pectoris Nonrheumatic aortic (valve) stenosis ASSESSMENT/PLAN: Patient is considered intermediate risk for this high risk procedure/surgery () with no reducible risk factors. Based on the above evaluation, the benefits of the planned procedure likely exceed the risks. The patient is medically optimized to proceed with the planned procedure without any further cardiopulmonary testing. 1) Atherosclerotic heart disease of morongo coronary artery without angina pectoris Nonrheumatic aortic (valve) stenosis - Managed per surgery 2) CAD/ Pacemaker/ CHF/ HLD/ HTN Eliquis (surgeon instructed to hold 5 days) ASA 81 mg (per M Chiqui PROFESSOR OF CHEMICAL ENGINEERING orders- hold DOS) Lipitor Coreg Entresto Lasix [...] we are asked to see/evaluate by Elieser Lai for pre-operative evaluation prior to above procedure. ? Denies history of TIA, CVA Past Medical History: Past Medical History: No date: Anxiety No date: Atherosclerosis of coronary artery bypass graft of morongo heart without angina pectoris No date: Chronic kidney disease No date: GERD (gastroesophageal reflux disease) No date: Hypertension No date: Ischemic cardiomyopathy No date: Mobitz type II atrioventricular block 11/16/2018: STEMI (ST elevation myocardial infarction) ([facility]) No date: Stroke ([facility]) No date: Vertigo Past Surgical History: Past [...] daily 12/04/22 12/04/23 Jim Florian APRN - BRANCH OFFICE MANAGER carvedilol (Coreg) 12.5 MG tablet Take 1 [...] ETOH: reports no hi (more content not included)...[facility] 12-08-2022 NoteComprehensive Pre Surgical History and Physical ? Name: Dayana Quiñones : 1940 (Age-82 y.o.) Date of Service: Pt seen/examined on 12/08/2022 Procedure Information Date/Time: 12/14/22 0700 Procedures: CABG, MITRAL VALVE REPAIR, ELA (Chest) Echocardiography transesophageal real-time VALVULOPLASTY MITRAL VALVE WITH CARDIOPULMONARY BYPASS (Chest) Location: [facility] OR [address] [place] [address] Operating Room Surgeons: Danielle Lai MD Chief Complaint: Atherosclerotic heart disease of morongo coronary artery without angina pectoris Nonrheumatic aortic (valve) stenosis ASSESSMENT/PLAN: Patient is considered intermediate risk for this high risk procedure/surgery () with no reducible risk factors. Based on the above evaluation, the benefits of the planned procedure likely exceed the risks. The patient is medically optimized to proceed with the planned procedure without any further cardiopulmonary testing. 1) Atherosclerotic heart disease of morongo coronary artery without angina pectoris Nonrheumatic aortic (valve) stenosis - Managed per surgery 2) CAD/ Pacemaker/ CHF/ HLD/ HTN Eliquis (surgeon instructed to hold 5 days) ASA 81 mg (per M Chiqui PROFESSOR OF CHEMICAL ENGINEERING orders- hold DOS) Lipitor Coreg Entresto Lasix [...] we are asked to see/evaluate by Elieser Lai for pre-operative evaluation prior to above procedure. ? Denies history of TIA, CVA Past Medical History: Past Medical History: No date: Anxiety No date: Atherosclerosis of coronary artery bypass graft of morongo heart without angina pectoris No date: Chronic kidney disease No date: GERD (gastroesophageal reflux disease) No date: Hypertension No date: Ischemic cardiomyopathy No date: Mobitz type II atrioventricular block 11/16/2018: STEMI (ST elevation myocardial infarction) ([facility]) No date: Stroke ([facility]) No date: Vertigo Past Surgical History: Past [...] to affected area daily 12/04/22 12/04/23 Jim Florina, PROFESSOR OF CHEMICAL ENGINEERING - BRANCH OFFICE MANAGER carvedilol (Coreg) 12.5 MG tablet Take 1 [...] ETOH: reports no hi (more content not included)...[facility] 12-08-2022 Bhupinder Bradley Asantae rep, notified of patient having pacemaker and surgery procedure, date and time. Surgery scheduling also notified of patients pacemaker.[facility]08-04-2023 NotePrep for Procedure Order Request: 12/01/22 Surgeon: Dr. Lai Surgery/Procedure: CABG, mitral valve repair & ELA Plan Admit: Yes PAT Appointment: 12/08/22 at 12:30 PM Date if yes: Date of Surgery/Procedure: 12/15/22 at 7:00 AM Medication needed held: [] None [x] Other: Eliquis Medication needed prescribed: [] None [x] Nasal ointment and mouth rinse [] Other: [facility]08-04-2023 Telephone encounter Note* Telephone Encounter - Yaneli Medrano - 12/01/2022 2:01 PM EDT Prep for Procedure Order Request: 12/01/22 Surgeon: Dr. Lai Surgery/Procedure: CABG, mitral valve repair & ELA Plan Admit: Yes PAT Appointment: 12/08/22 at 12:30 PM Date if yes: Date of Surgery/Procedure: 12/15/22 at 7:00 AM Medication needed held: [] None [x] Other: Eliquis Medication needed prescribed: [] None [x] Nasal ointment and mouth rinse [] Other: [id number] Miscellaneous Notes* Telephone Encounter - Yaneli Medrano - 12/01/2022 2:01 PM EDT Prep for Procedure Order Request: 12/01/22 Surgeon: Dr. Lai Surgery/Procedure: CABG, mitral valve repair & ELA Plan Admit: Yes PAT Appointment: 12/08/22 at 12:30 PM Date if yes: Date of Surgery/Procedure: 12/15/22 at 7:00 AM Medication needed held: [] None [x] Other: Eliquis Medication needed prescribed: [] None [x] Nasal ointment and mouth rinse [] Other: [facility] documented in this [facility]08-02-2023 NoteOrders Placed This Encounter Procedures CT chest wo IV contrast Standing Status: Future Standing Expiration Date: 11/30/2023 Order Specific Question: Record Decision Support information? Answer: No Order Specific Question: Decision Support Exception Answer: Emergency Medical Condition (MA) [1][facility] [id number] NoteSUMHANNIBAL REGION[facility] SUR[facility] [address] [facility] [address] Dept: [phone] Dept Loc: [phone] Visit type: New Reason for Visit: CAD, [...] or ischemia or arrhythmia, and . Danielle Lai MD Cardiothoracic Surgery History of Present Illness Dayaan Quiñones is a 82 y.o. female referred by Dr. Brumfield for CABG and MVR. Per note, pt has history of CAD s/p acute ME and underwent dug-eluting stent to LAD as [...] Atherosclerosis of coronary artery bypass graft of morongo heart without angina pectoris Hypertension Ischemic cardiomyopathy Mobitz type II atrioventricular block STEMI (ST elevation myocardial infarction) ([facility]) 11/16/2018 Vertigo Past Surgical History Past Surgical [...] Rfl: timolol (Timoptic) 0. (more content not included)...[facility] 11-14-2022 History of Present illness Narrative* Silvia Hunter APRN.BRANCH OFFICE MANAGER - 11/14/2022 8:45 AM EDT 11/14/2022 Patient presents with: Follow Up: 6 month SUBJECTIVE: This is a 82 year old that is here today for Above Complaints. HTN: Patient is compliant with meds Yes Monitors bp at home: Yes. 101/66 today. Ranges from 120-130/60's Denies side effects: Yes. Chest pain: No. Dyspnea: No. Edema: No. Palpitations: No. Syncope: No. Headache: No. Dizziness: No. HEART: Sees [facility] for a hx of complete heart block, pacemaker, and CAD. Last visit on09/19/2022 with follow-up scheduled for today. Reports she [...] HISTORY Diagnosis Date Atherosclerotic heart disease of morongo coronary artery without angina pectoris 2018 Dr. [...] (HCC) Presence of permanent cardiac pacemaker 2019 Alberto 12/27/2014 ST elevation (STEMI) myocardial infarction involving left anterior descending coronary artery (HCC)2019 ALLERGIES Morphine MEDICATIONS Current Outpatient Medications Medication [...] oz) SpO2 97% BMI 30.40 kg/m . Vitalsigns reviewed by this provider. APPEARANCE Well appearing, [...] in 6 months sooner if needed Silvia Hunter APRN.BRANCH OFFICE MANAGER Prescription instructions reviewed with patient as applicable. [...] which included preparing to see the patient, [id number] patient care, completing clinical documentation, obtaining and/or reviewing separately obtained history, performing a medically appropriate examination, counseling and educating the pat ient/family/caregiver, and ordering medications, tests, or procedures. documented in this encounterTr[facility]02-03-2023 History of Present illness Narrative* Yaneli Malagon LPN - 06/02/2022 11:20 AM EST Patient presents for flu and COVID vaccines. Denies any problems at this time. Tolerated injectionswell. Yaneli Malagon LPN documented in this encounterTrinity [facility] Campus01-30-2023 Miscellaneous Notes* Telephone Encounter - Kelly Hair LPN - 05/29/2022 2:59 PM EST Phoned patient and advised her of provider's message. She stated Dr Gan said Dr Brumfield should be handling the issue. I advised patient that a pulmonary issue typically would be pulmonology that handles the issue. Patient stated she will follow up with Brissa's office and if he advises her to followup with Dr Gan then she will. Advised her xray is being forwarded to Dr Gan's office. Patient voiced understanding. * Telephone Encounter - Amalia Avery MD - 05/29/2022 1:09 PM EST I see she met with pulmonology and they did obtain PFTs. Looks like she was evaluated for SOB and referred back to cardiology. They do not make mention of pulmonary fibrosis. They wanted to see her back in 3 months. Recommend she schedule f/u appointment. Please fax imaging results to her ibm websphere portal developer's office. * Telephone Encounter - Genesis Oliva RN - 05/29/2022 11:20 AM EST Pt called and is notified of providers results and instructions. Pt states she saw pulmonary about a year ago for the same issue and Dr Gan told her that her mold sander had to take care of everything. She states she has been working with Dr Brumfiled and Bart Gonzalez SENIOR MOBILE DEVELOPER. They are trying to change her blood thinner. Faxed x-ray of chest to Dr Brumfield at [phone]. Pt doesn't know if she went to see Pulmonary again if she would get any different results. Genesis Oliva RN * Telephone Encounter - Amalia Avery MD - 05/29/2022 8:23 AM EST Patient's chest xray is stable with evidence of pulmonary fibrosis and mildly enlarged heart. No evidence of pneumonia. Further workup would include pulmonary function testing and referral to pulmonology. documented in this encounterTrinity [facility]01-27-2023 History of Present illness Narrative* Isis Herbert, RT(R) - 05/26/2022 1:00 PM EST Radiology Service Progress Note PATIENT NAME: Dayana Quiñones DATE OF SERVICE: May 26, 2022 TIME: 12:52 PM PATIENT IDENTITY VERIFICATION COMPLETED USING TWO (2) IDENTIFIERS: Name and Date of confirmedby patient verbally. FALL SCREENING: Has the patient had 2 falls in the last year or 1 fall with injury or currently using an Ambulatory Assistive Device (Walker, Cane, Wheelchair, Crutches, etc.)? No PATIENT GENDER DATA: Female. status: : No status: NO. PATIENT RELEVANT IMPLANT DATA REVIEWED: Not Applicable RADIOLOGY DEPARTMENT: General X-ray: Exam(s) Completed: Chest X-Ray PERIPHERAL IV DATA: Not applicable SIGNED BY: RT Harpreet(R) May 26, 2022 12:52 PM documented in this encounterTrinity [facility]01-19-2023 Miscellaneous Notes* Telephone Encounter - Kelly Hair LPN - 05/18/2022 3:24 PM EST Phoned patient and reviewed provider's message with her multiple times until she was comfortable with understanding recommendations. * Telephone Encounter - Amalia Avery MD - 05/18/2022 2:14 PM EST If her cough continues, I would get repeat CXR next week. If cough resolves, will wait until 2/3 orcancel CXR. * Telephone Encounter - Shelby Hair RN - 05/18/2022 1:50 PM EST Pt and daughter returned call-on phone together. Provider's message given below. Pt states she will be coming in on 06/02/22 for immunizations and asking if Dr. Avery is okay with her having the repeat CXR then? Please advise pt's daughter Radha. Thank you. * Telephone Encounter - Kelly Hair LPN - 05/18/2022 9:09 AM EST Phoned patient and no answer or VM. Will attempt to contact patient again later. * Telephone Encounter - Amalia Avery MD - 05/18/2022 9:06 AM EST Patient with very slight elevation in her WBC and neutrophil count still from recent pneumonia. Herlungs sounded clear yesterday and symptoms were improving. I will order a repeat CXR to be completed in 1 week to confirm resolution of this pneumonia. Call if symptoms worsening. Other labs stable. documented in this encounterTrinity [facility]01-18-2023 History of Present illness Narrative* Amalia Avery MD - 05/17/2022 8:04 AM EST Chief Complaint Patient presents with: Follow Up: 6 month follow up Follow up to pneumonia HPI Dayana Quiñones is a 82 year old female who presents here today for Above Complaints.. Patient evaluated at on 05/11 and treated for pneumonia with Augmentin and Doxycycline with following HPI: Patient presents with cough chest congestion and shortness of breath over the past 4 days. No feverthat she knows of. No vomiting or diarrhea. Her is now coughing but she thinks he probably caught it from her. No vomiting or diarrhea. She did just see her mold sander a week ago and had a good [...] Sleeping 6-7 hours at night. Not eating asmuch. Pushing PO fluids. ASHD: managed by Dr. Brumfield's office. No changes to her regimen at last appointment on 05/05. Ordered echo to follow up on her ischemic cardiomyopathy with last EF 30% in 2021. Rescheduled to next week.Taking ASA and plavix without bruising or bleeding. Asymptomatic on medical management. BP controlled on current regimen. Past medical history, appointments, medications, allergies reviewed. Previous Medical History PAST MEDICAL HISTORY Diagnosis Date Atherosclerotic heart disease of morongo coronary artery without angina pectoris 2018 Benign hypertension 07/01/2015 BPPV (benign paroxysmal positional vertigo), unspecified laterality 04/11/2017 CKD (chronic kidney disease) stage 3, GFR 30-59 ml/min ([facility]) Fibrocystic breast disease (FCBD) in female 07/01/2015 Gastroesophageal reflux disease 07/01/2015 Herpes zoster keratoconjunctivitis 07/01/2015 Hyperlipidemia 2019 Neutrophilia 12/22/2016 Normally functioning cardiac pacemaker present 11/01/2018 Presence of permanent cardiac pacemaker 2019 Shingles 12/27/14 ST elevation (STEMI) myocardial infarction involving left anterior descending coronary artery (HCC)2019 Previous Surgical History PAST SURGICAL HISTORY Procedure [...] she is not hungry. Call if depression symptomsworsen. 3. Benign hypertension - ICD9: 401.1, ICD10: [...] above. Amalia Avery MD documented in this encounterTr[facility]01-12-2023 History of Present illness Narrative* Laura Holbrook PA-C - 05/11/2022 2:16 PM EST This note was created using weave energyriter. Subjective Dayana Quiñones is a 82 year old female Patient presents with cough chest congestion and shortness of breath over the past 4 days. No feverthat she knows of. No vomiting or diarrhea. Her is now coughing but she thinks he probably caught it from her. No vomiting or diarrhea. She did just see her mold sander a week ago and had a good [...] HISTORY Diagnosis Date Atherosclerotic heart disease of morongo coronary artery without angina pectoris 2018 Benign hypertension 07/01/2015 BPPV (benign paroxysmal positional vertigo), unspecified laterality 04/11/2017 CKD (chronic kidney disease) stage 3, GFR 30-59 ml/min ([facility]) Fibrocystic breast disease (FCBD) in female 07/01/2015 Gastroesophageal reflux disease 07/01/2015 Herpes zoster keratoconjunctivitis 07/01/2015 Hyperlipidemia 2019 Neutrophilia 12/22/2016 Normally functioning cardiac pacemaker present 11/01/2018 Presence of permanent cardiac pacemaker 2019 Shingles 12/27/14 ST elevation (STEMI) myocardial infarction involving left anterior descending coronary artery (HCC)2019 Current Outpatient Medications Medication Sig Dispense Refill [...] ROUTINE Laura Holbrook PA-C documented in this encounterTrinity [facility]07-25-2022 Miscellaneous Notes* Telephone Encounter - Kinga Chilel LPN - 11/21/2021 10:05 AM EDT Patient telephoned and message below regarding results given. Voices understanding. PCP changed. Kinga Chilel LPN * Telephone Encounter - Silvia Hunter APRN.CNP - 11/21/2021 7:58 AM EDT Please call patient and let her know he kidney function is still decreased but improved from May. Continue to avoid NSAID use, eat low fat diet and stay well hydrated. The rest of her blood workis normal. Continue current medications and follow-up as scheduled. Please change PCP to Dr. Avery. Thanks, Silvia Hunter APRN.CNP documented in this encounterTrinity [facility]07-20-2022 History of Present illness Narrative* Silvia Hunter APRN.CNP - 11/16/2021 8:34 AM EDT 11/16/2021 Patient presents with: Transition Of Care [...] No. Headache: No. Dizziness: No. HEART: Sees [facility] for a hx of complete heart block, pacemaker, and CAD. Last visit in with follow-up in February, scheduled. At her last visit coreg was increased to twicea day. 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 Benign hypertension 07/01/2015 BPPV (benign paroxysmal positional vertigo), unspecified laterality 04/11/2017 CKD (chronic kidney disease) stage 3, GFR 30-59 ml/min ([facility]) Fibrocystic breast disease (FCBD) in female 07/01/2015 Gastroesophageal reflux disease 07/01/2015 Herpes zoster keratoconjunctivitis 07/01/2015 Hyperlipidemia 2019 Neutrophilia 12/22/2016 Normally functioning cardiac pacemaker present 11/01/2018 Presence of permanent cardiac pacemaker 2019 Shingles 12/27/14 ST elevation (STEMI) myocardial infarction involving left anterior descending coronary artery (HCC)2019 ALLERGIES Morphine MEDICATIONS Current Outpatient Medications Medication [...] starch, healthy oil intake (olive oil), healthy protein(fish) along the lines of the Mediterranean diet. 6. Complete heart block (HCC) - ICD9: 426.0, ICD10: I44.2 - follow-up with cardiology as scheduled Silvia Hunter APRN.CNP Prescription instructions reviewed with patient as applicable. Patient advised if symptoms do not improve or if symptoms worsen sooner, to contact their primary care physician. Potential red flag symptoms discussed with the patient. Reviewed appropriate action plan to take if red flag symptoms occur. Patient agreeable to treatment plan. documented in this encounterTrinity [facility]04-05-2019 Evaluation note* Diagnosis Onset Date Resolution Status 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 chronic Dyspnea chronic Essential (primary) hypertension chronic Presence of permanent cardiac pacemaker August 02 chronic Chronic diastolic (congestive) heart failure chronic Mobitz (type) II atrioventricular block chronic Presence of permanent cardiac pacemaker August 02 chronic 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 chronic Dyspnea chronic Essential (primary) hypertension chronic Presence of permanent cardiac pacemaker August 02 chronic Ischemic cardiomyopathy acut e Paroxysmal atrial flutter [place] 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 chronic Essential (primary) hypertension chronic Presence of permanent cardiac pacemaker August 02 chronic [facility] Work Phone: [phone] Evaluation note* Diagnosis Onset Date Resolution Status Ischemic cardiomyopathy acut e Paroxysmal atrial flutter [place] S/P mitral valve repair acut e Essential (primary) hypertension chronic Presence of permanent cardiac pacemaker August 02 chronic S/P CABG x 2 chronic History of coronary artery stent placement November resolved Ischemic cardiomyopathy acut e Paroxysmal atrial flutter [place] Mobitz (type) II atrioventricular block chronic Presence of permanent cardiac pacemaker August 02 chronic Anticoagulant long-term use acute WIN (dyspnea on exertion) [place] Failure of outpatient treatment acute CHF exacerbation chronic [facility] Work Phone: [phone]) 163-647404-05-2019 Evaluation note* Diagnosis Onset Date Resolution Status Ischemic cardiomyopathy acut e Paroxysmal atrial flutter [place] S/P mitral valve repair acut e Essential (primary) hypertension chronic Presence of permanent cardiac pacemaker Violeta 5th, 201 9 chronic S/P CABG x 2 chronic History of coronary artery stent placement November resolved Ischemic cardiomyopathy acut e Paroxysmal atrial flutter [place] Mobitz (type) II atrioventricular block chronic Presence of permanent cardiac pacemaker August 02 chronic Anticoagulant long-term use acute WIN (dyspnea on exertion) [place] Failure of outpatient treatment acute Hypokalemia acute CHF exacerbation chronic [facility] Work Phone: [phone] Evaluation note* Diagnosis Onset Date Resolution Status Ischemic cardiomyopathy acut e Paroxysmal atrial flutter [place] S/P mitral valve repair acut e Essential (primary) hypertension chronic Presence of permanent cardiac pacemaker August 02 chronic S/P CABG x 2 chronic History of coronary artery stent placement November resolved Ischemic cardiomyopathy acut e Paroxysmal atrial flutter [place] Mobitz (type) II atrioventricular block chronic Presence of permanent cardiac pacemaker August 02 chronic Anticoagulant long-term use acute WIN (dyspnea on exertion) [place] Failure of outpatient treatment acute Fatigue acute Hypokalemia acute Ischemic cardiomyopathy acut e Paroxysmal atrial flutter [place] Pulmonary fibrosis acute S/P mitral valve repair acut e SOB (shortness of breath) [place] 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 chronic CHF exacerbation chronic Chronic diastolic (congestive) heart failure chronic Essential (primary) hypertension chronic 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, 2018 chronic S/P CABG x 2 chronic History of coronary artery stent placement November resolved History of ST elevation myoc ardial infarction (STEMI) November 16, 2018 resolved [facility] Work Phone: [phone] 978-842004-05-2019 Evaluation note* Diagnosis Onset Date Resolution Status Ischemic cardiomyopathy acut e Paroxysmal atrial flutter [place] S/P mitral valve repair acut e Essential (primary) hypertension chronic Presence of permanent cardiac pacemaker August 02 chronic S/P CABG x 2 chronic History of coronary artery stent placement November resolved Ischemic cardiomyopathy acut e Paroxysmal atrial flutter [place] Mobitz (type) II atrioventricular block chronic Presence of permanent cardiac pacemaker August 02 chronic Anticoagulant long-term use acute WIN (dyspnea on exertion) [place] Failure of outpatient treatment acute Fatigue acute Ischemic cardiomyopathy acut e Paroxysmal atrial flutter [place] Pulmonary fibrosis acute S/P mitral valve repair acut e SOB (shortness of breath) [place] 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 chronic CHF exacerbation chronic Chronic diastolic (congestive) heart failure chronic Essential (primary) hypertension chronic 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, 2018 chronic S/P CABG x 2 chronic History of coronary artery stent placement November resolved History of ST elevation myoc ardial infarction (STEMI) November 16, 2018 resolved Non-ischemic cardiomyopathy acute S/P mitral valve repair acut e 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 chronic Presence of permanent cardiac pacemaker August 02 chronic S/P CABG x 2 chronic [facility] Work Phone: [phone] Evaluation note* Diagnosis Onset Date Resolution Status Ischemic cardiomyopathy acut e Paroxysmal atrial flutter [place] Mobitz (type) II atrioventricular block chronic Presence of permanent cardiac pacemaker August 02 chronic Anticoagulant long-term use acute WIN (dyspnea on exertion) [place] Failure of outpatient treatment acute Fatigue acute Ischemic cardiomyopathy acut e Paroxysmal atrial flutter [place] Pulmonary fibrosis acute S/P mitral valve repair acut e SOB (shortness of breath) [place] 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 chronic CHF exacerbation chronic Chronic diastolic (congestive) heart failure chronic Essential (primary) hypertension chronic 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, 2018 chronic S/P CABG x 2 chronic History of coronary artery stent placement November resolved History of ST elevation myoc ardial infarction (STEMI) November 16, 2018 resolved Non-ischemic cardiomyopathy acute S/P mitral valve repair acut e 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 chronic Presence of permanent cardiac pacemaker August 02 chronic S/P CABG x 2 chronic Non-ischemic cardiomyopathy acute S/P mitral valve repair acut e 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 chronic Presence of permanent cardiac pacemaker August 02 chronic S/P CABG x 2 chronic Anemia acute Anticoagulant long-term use acute GI bleed acute Hypotension acute Medication induced coagulopathy acute Non-ischemic cardiomyopathy acute [facility] Work Phone: [phone] Evaluation note* Diagnosis Onset Date Resolution Status Ischemic cardiomyopathy acut e Paroxysmal atrial flutter [place] Mobitz (type) II atrioventricular block chronic Presence of permanent cardiac pacemaker August 02 chronic WIN (dyspnea on exertion) [place] Failure of outpatient treatment acute Fatigue acute Ischemic cardiomyopathy acut e Paroxysmal atrial flutter [place] Pulmonary fibrosis acute S/P mitral valve repair acut e SOB (shortness of breath) [place] 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 chronic CHF exacerbation chronic Chronic diastolic (congestive) heart failure chronic Essential (primary) hypertension chronic 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, 2018 chronic S/P CABG x 2 chronic History of coronary artery stent placement November resolved History of ST elevation myoc ardial infarction (STEMI) November 16, 2018 resolved Non-ischemic cardiomyopathy acute S/P mitral valve repair acut e 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 chronic Presence of permanent cardiac pacemaker August 02 chronic S/P CABG x 2 chronic Non-ischemic cardiomyopathy acute S/P mitral valve repair acut e 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 chronic Presence of permanent cardiac pacemaker August 02 chronic S/P CABG x 2 chronic Non-ischemic cardiomyopathy acute Hypotension resolved [facility] Work Phone: [phone] Evaluation note* Diagnosis Onset Date Resolution Status Non-ischemic cardiomyopathy acute S/P mitral valve repair acut e 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 chronic Presence of permanent cardiac pacemaker August 02 chronic S/P CABG x 2 chronic Non-ischemic cardiomyopathy acute S/P mitral valve repair acut e 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 chronic Presence of permanent cardiac pacemaker August 02 chronic S/P CABG x 2 chronic Non-ischemic cardiomyopathy acute Hypotension resolved Non-ischemic cardiomyopathy acute S/P mitral valve repair acut e 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 chronic Chronic anemia chronic Presence of permanent cardiac pacemaker August 02 chronic S/P CABG x 2 chronic [facility] Work Phone: [phone] Evaluation note* Diagnosis Onset Date Resolution Status Non-ischemic cardiomyopathy acute S/P mitral valve repair acut e 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 chronic Presence of permanent cardiac pacemaker August 02 chronic S/P CABG x 2 chronic Non-ischemic cardiomyopathy acute Hypotension resolved Non-ischemic cardiomyopathy acute S/P mitral valve repair acut e 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 chronic Chronic anemia chronic Presence of permanent cardiac pacemaker August 02 9 chronic S/P CABG x 2 chronic [facility] Work Phone: [phone] History of Past illness Narrative* Problem Noted Date Resolved Date Acute renal failure superimp osed on stage 3 chronic kidney disease 04/12/2017 04/26/2017 Neutrophilia 12/22/2016 12/14/2017 documented as of this encounter (statuses as of 11/16/2021) [facility]12[facility]14[facility]2017 History of Past illness Narrative* Problem Noted Date Resolved Date Acute renal failure superimp osed on stage 3 chronic kidney disease 04/12/2017 04/26/2017 Neutrophilia 12/22/2016 12/14/2017 documented as of this encounter (statuses as of 11/21/2021) [facility]2017 History of Past illness Narrative* Problem Noted Date Resolved Date Acute renal failure superimp osed on stage 3 chronic kidney disease 04/12/2017 04/26/2017 Neutrophilia 12/22/2016 12/14/2017 documented as of this encounter (statuses as of 05/11/2022) [facility]2017 History of Past illness Narrative* Problem Noted Date Resolved Date Acute renal failure superimp osed on stage 3 chronic kidney disease 04/12/2017 04/26/2017 Neutrophilia 12/22/2016 12/14/2017 documented as of this encounter (statuses as of 05/17/2022) [facility]2017 History of Past illness Narrative* Problem Noted Date Resolved Date Acute renal failure superimp osed on stage 3 chronic kidney disease 04/12/2017 04/26/2017 Neutrophilia 12/22/2016 12/14/2017 documented as of this encounter (statuses as of 05/18/2022) [facility]2017 History of Past illness Narrative* Problem Noted Date Resolved Date Acute renal failure superimp osed on stage 3 chronic kidney disease 04/12/2017 04/26/2017 Neutrophilia 12/22/2016 12/14/2017 documented as of this encounter (statuses as of 06/05/2022) [facility]2017 History of Past illness Narrative* Problem Noted Date Resolved Date Acute renal failure superimp osed on stage 3 chronic kidney disease 04/12/2017 04/26/2017 Neutrophilia 12/22/2016 12/14/2017 documented as of this encounter (statuses as of 06/15/2022) [facility]2017 History of Past illness Narrative* Problem Noted Date Diagnosed Date Resolved Date Acute renal failure superimp osed on stage 3 chronic kidney disease 04/12/2017 04/26/2017 Neutrophilia 12/22/2016 12/14/2017 documented as of this encounter (statuses as of 11/14/2022) [facility]2017 History of Past illness Narrative* Problem Noted Date Diagnosed Date Resolved Date Acute renal failure superimp osed on stage 3 chronic kidney disease 04/12/2017 04/26/2017 Neutrophilia 12/22/2016 12/14/2017 documented as of this encounter (statuses as of 03/15/2023) [facility]2017 History of Past illness Narrative* Problem Noted Date Diagnosed Date Resolved Date Acute renal failure superimp osed on stage 3 chronic kidney disease 04/12/2017 04/26/2017 Neutrophilia 12/22/2016 12/14/2017 documented as of this encounter (statuses as of 03/17/2023) [facility] History of Past illness Narrative* Problem Noted Date Diagnosed Date Resolved Date Acute renal failure superimp osed on stage 3 chronic kidney disease 04/12/2017 04/26/2017 Neutrophilia 12/22/2016 12/14/2017 documented as of this encounter (statuses as of 04/04/2023) [facility] History of Past illness Narrative* Problem Noted Date Diagnosed Date Resolved Date Acute renal failure superimp osed on stage 3 chronic kidney disease 04/12/2017 04/26/2017 Neutrophilia 12/22/2016 12/14/2017 documented as of this encounter (statuses as of 04/06/2023) [facility]2017 History of Past illness Narrative* Problem Noted Date Diagnosed Date Resolved Date Acute renal failure superimp osed on stage 3 chronic kidney disease 04/12/2017 04/26/2017 Neutrophilia 12/22/2016 12/14/2017 documented as of this encounter (statuses as of 06/18/2023) [facility] History of Past illness Narrative* Problem Noted Date Diagnosed Date Resolved Date Acute renal failure superimp osed on stage 3 chronic kidney disease 04/12/2017 04/26/2017 Neutrophilia 12/22/2016 12/14/2017 documented as of this encounter (statuses as of 06/18/2023) [address]14-2017 History of Past illness Narrative* Problem Noted Date Diagnosed Date Resolved Date Acute renal failure superimp osed on stage 3 chronic kidney disease 04/12/2017 04/26/2017 Neutrophilia 12/22/2016 12/14/2017 documented as of this encounter (statuses as of 06/27/2023) [facility]2017 History of Past illness Narrative* Problem Noted Date Diagnosed Date Resolved Date Acute renal failure superimp osed on stage 3 chronic kidney disease 04/12/2017 04/26/2017 Neutrophilia 12/22/2016 12/14/2017 documented as of this encounter (statuses as of 06/27/2023) [address]14-2017 History of Past illness Narrative* Problem Noted Date Diagnosed Date Resolved Date Acute renal failure superimp osed on stage 3 chronic kidney disease 04/12/2017 04/26/2017 Neutrophilia 12/22/2016 12/14/2017 documented as of this encounter (statuses as of 07/05/2023) [facility]2017 History of Past illness Narrative* Problem Noted Date Diagnosed Date Resolved Date Acute renal failure superimp osed on stage 3 chronic kidney disease 04/12/2017 04/26/2017 Neutrophilia 12/22/2016 12/14/2017 documented as of this encounter (statuses as of 07/09/2023) [facility]2017 History of Past illness Narrative* Problem Noted Date Diagnosed Date Resolved Date Acute renal failure superimp osed on stage 3 chronic kidney disease 04/12/2017 04/26/2017 Neutrophilia 12/22/2016 12/14/2017 documented as of this encounter (statuses as of 07/10/2023) [facility]2017 History of Past illness Narrative* Problem Noted Date Diagnosed Date Resolved Date Acute renal failure superimp osed on stage 3 chronic kidney disease 04/12/2017 04/26/2017 Neutrophilia 12/22/2016 12/14/2017 documented as of this encounter (statuses as of 07/11/2023) [address]14-2017 History of Past illness Narrative* Problem Noted Date Diagnosed Date Resolved Date Acute renal failure superimp osed on stage 3 chronic kidney disease 04/12/2017 04/26/2017 Neutrophilia 12/22/2016 12/14/2017 documented as of this encounter (statuses as of 07/11/2023) [facility]2017 History of Past illness Narrative* Problem Noted Date Diagnosed Date Resolved Date Acute renal failure superimp osed on stage 3 chronic kidney disease 04/12/2017 04/26/2017 Neutrophilia 12/22/2016 12/14/2017 documented as of this encounter (statuses as of 07/11/2023) [facility]2017 History of Past illness Narrative* Problem Noted Date Diagnosed Date Resolved Date Acute renal failure superimp osed on stage 3 chronic kidney disease 04/12/2017 04/26/2017 Neutrophilia 12/22/2016 12/14/2017 documented as of this encounter (statuses as of 07/19/2023) [facility]2017 History of Past illness Narrative* Problem Noted Date Diagnosed Date Resolved Date Acute renal failure superimp osed on stage 3 chronic kidney disease 04/12/2017 04/26/2017 Neutrophilia 12/22/2016 12/14/2017 documented as of this encounter (statuses as of 08/02/2023) [facility]2017 History of Past illness Narrative* Problem Noted Date Diagnosed Date Resolved Date Acute renal failure superimp osed on stage 3 chronic kidney disease 04/12/2017 04/26/2017 Neutrophilia 12/22/2016 12/14/2017 documented as of this encounter (statuses as of 08/06/2023) [facility]2017 History of Past illness Narrative* Problem Noted Date Diagnosed Date Resolved Date Acute renal failure superimp osed on stage 3 chronic kidney disease 04/12/2017 04/26/2017 Neutrophilia 12/22/2016 12/14/2017 documented as of this encounter (statuses as of 08/08/2023) [facility]2017 History of Past illness Narrative* Problem Noted Date Diagnosed Date Resolved Date Acute renal failure superimp osed on stage 3 chronic kidney disease 04/12/2017 04/26/2017 Neutrophilia 12/22/2016 12/14/2017 documented as of this encounter (statuses as of 08/08/2023) [facility]2017 History of Past illness Narrative* Problem Noted Date Diagnosed Date Resolved Date Acute renal failure superimp osed on stage 3 chronic kidney disease 04/12/2017 04/26/2017 Neutrophilia 12/22/2016 12/14/2017 documented as of this encounter (statuses as of 08/10/2023) [facility]2017 History of Past illness Narrative* Problem Noted Date Diagnosed Date Resolved Date Acute renal failure superimp osed on stage 3 chronic kidney disease 04/12/2017 04/26/2017 Neutrophilia 12/22/2016 12/14/2017 documented as of this encounter (statuses as of 08/15/2023) [facility] Diagnosis Encounter to establish care with new doctor- Primary Other reasons for seeking consultation GERD without esophagitis Esophageal reflux Hyperlipidemia LDL goal <100 Other and unspecified hyperlipidemia Stage 3a chronic kidney disease (HCC) Benign hypertension Essential hypertension, benign Complete heart block (HCC) Atrioventricular block, complete [facility] Diagnosis Pneumonia of both lungs due to infectious organism, unspecified part of lung- [facility] Bacterial [facility]- Primary Bacterial pneumonia, unspecified Grief reaction Adjustment disorder with depressed mood Benign hypertension Essential hypertension, benign Hyperlipidemia LDL goal <100 Other and unspecified hyperlipidemia Stage 3a chronic kidney disease (HCC) ASHD (arteriosclerotic heart disease) Coronary atherosclerosis of unspecified type of vessel, [place] or graft Ischemic cardiomyopathy Other specified forms of chronic ischemic heart disease Complete heart block (HCC) Atrioventricular block, complete [facility] Bacterial pneumonia- Primary Bacterial pneumonia, unspecified [facility] Need for vaccination- Primary Need for prophylactic vaccination and inoculation against unspecified single disease Need for influenza vaccination Need for prophylactic vaccination and inoculation against influenza [facility] Diagnosis 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 [facility] Diagnosis Benign hypertension- Primary Essential hypertension, benign GERD without esophagitis Esophageal reflux Hyperlipidemia LDL goal <100 Other and unspecified hyperlipidemia Hypocalcemia Complete heart block (HCC) Atrioventricular block, complete Ischemic cardiomyopathy Other specified forms of chronic ischemic heart disease Stage 3a chronic kidney disease (HCC) [facility] Diagnosis Onset Date Resolution Status Ischemic cardiomyopathy acut e Paroxysmal atrial flutter [place] 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 chronic Essential (primary) hypertension chronic Presence of permanent cardiac pacemaker August 02 chronic Ischemic cardiomyopathy acut e Paroxysmal atrial flutter [place] Mobitz (type) II atrioventricular block chronic Presence of permanent cardiac pacemaker August 02 chronic Fatigue acute Ischemic cardiomyopathy acut e Paroxysmal atrial flutter [place] SOB (shortness of breath) [place] Essential (primary) hypertension chronic Presence of permanent cardiac pacemaker August 02 chronic History of coronary artery stent placement November resolved [facility] Work Phone: Evaluation note* Diagnosis CAD in [place] artery- Primary Atherosclerotic heart disease of [place] coronary artery without angina pectoris Nonrheumatic aortic (valve) stenosis [facility] Atherosclerotic heart disease of [place] coronary artery without angina pectoris Nonrheumatic mitral (valve) insufficiency Atherosclerotic heart disease of [place] coronary artery without angina pectoris Nonrheumatic aortic (valve) stenosis [facility] Diagnosis CAD, multiple vessel- Primary Atherosclerotic heart disease of [place] coronary artery without angina pectoris Nonrheumatic aortic (valve) stenosis [facility] Diagnosis CAD in [place] artery- Primary CAD in [place] artery Coronary artery disease involving coronary bypass graft of [place] heart with angina pectoris with documented spasm (HCC) S/P CABG (coronary artery bypass graft) Postsurgical aortocoronary bypass status [facility] Diagnosis Coronary artery disease involving [place] coronary artery of [place] heart with angina pectoris (HCC)- Primary Ischemic cardiomyopathy Other specified forms of chronic ischemic heart disease Mitral valve insufficiency, unspecified etiology S/P CABG (coronary artery bypass graft) Postsurgical aortocoronary bypass status S/P MVR (mitral valve repair) [facility] Diagnosis Onset Date Resolution Status Fatigue acute Ischemic cardiomyopathy acut e Paroxysmal atrial flutter [place] SOB (shortness of breath) [place] Essential (primary) hypertension chronic Presence of permanent cardiac pacemaker August 02 chronic History of coronary artery stent placement November resolved Ischemic cardiomyopathy acut e Paroxysmal atrial flutter [place] S/P mitral valve repair acut e Essential (primary) hypertension chronic Presence of permanent cardiac pacemaker August 02 chronic S/P CABG x 2 chronic History of coronary artery stent placement November resolved [facility] Work Phone: Evaluation note* Diagnosis Onset Date Resolution Status Fatigue acute Ischemic cardiomyopathy acut e Paroxysmal atrial flutter [place] SOB (shortness of breath) [place] Essential (primary) hypertension chronic Presence of permanent cardiac pacemaker August 02 chronic History of coronary artery stent placement November resolved Ischemic cardiomyopathy acut e Paroxysmal atrial flutter [place] S/P mitral valve repair acut e Essential (primary) hypertension chronic Presence of permanent cardiac pacemaker August 02 chronic S/P CABG x 2 chronic History of coronary artery stent placement November resolved Ischemic cardiomyopathy acut e Paroxysmal atrial flutter [place] Mobitz (type) II atrioventricular block chronic Presence of permanent cardiac pacemaker August 02 chronic [facility] Work Phone: Evaluation note* Diagnosis Acute on chronic congestive heart failure, unspecified heart failure type (HCC)- Primary [facility] Diagnosis Acute on chronic congestive heart failure, unspecified heart failure type (HCC)- Primary Orthopnea Stage 3a chronic kidney disease ([facility]) Hypokalemia Hypopotassemia [facility]* Diagnosis Stage 3b chronic kidney disease (HCC)- Primary [facility]* Diagnosis Shortness of breath at rest- Primary Pallor Gastrointestinal hemorrhage associated with duodenal ulcer Anemia, unspecified type Acute on chronic systolic heart failure (HCC) Acute on chronic systolic heart failure Ischemic cardiomyopathy Other specified forms of chronic ischemic heart disease Acute pulmonary edema (HCC) Acute edema of lung, unspecified [facility] Diagnosis Gastrointestinal hemorrhage associated with duodenal ulcer- Primary Shortness of breath at rest Anemia, unspecified type Pallor Acute on chronic systolic heart failure (HCC) Acute on chronic systolic heart failure 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 Stage 3a chronic kidney disease (HCC) [facility] Diagnosis Shortness of breath at rest- Primary [facility]* Diagnosis Gastrointestinal hemorrhage associated with duodenal ulcer- Primary [facility]* Diagnosis Acute on chronic systolic heart failure (HCC)- Primary Acute on chronic systolic heart failure Shortness of breath at rest Weight loss Loss of weight Gastrointestinal hemorrhage associated with duodenal ulcer Iron deficiency anemia, unspecified iron deficiency anemia type Stage 3a chronic kidney disease (HCC) Stage 3b chronic kidney disease (HCC) [facility]* Diagnosis Gastrointestinal hemorrhage associated with duodenal ulcer- Primary Anemia, unspecified type [facility]* Diagnosis Gastrointestinal hemorrhage associated with duodenal ulcer- Primary GERD without esophagitis Esophageal reflux Iron deficiency anemia, unspecified iron deficiency anemia type Benign hypertension Essential hypertension, benign Stage 3b chronic kidney disease (HCC) Ischemic cardiomyopathy Other specified forms of chronic ischemic heart disease Complete heart block (HCC) Atrioventricular block, complete Normally functioning cardiac pacemaker present Cardiac pacemaker in situ Chronic congestive heart failure, unspecified heart failure type (HCC) Hyperlipidemia LDL goal <100 Other and unspecified hyperlipidemia [facility]* Diagnosis Benign hypertension- Primary Essential hypertension, benign GERD without esophagitis Esophageal reflux Iron deficiency anemia, unspecified iron deficiency anemia type Stage 3b chronic kidney disease (HCC) Ischemic cardiomyopathy Other specified forms of chronic ischemic heart disease Complete heart block (HCC) Atrioventricular block, complete Normally functioning cardiac pacemaker present Cardiac pacemaker in situ Chronic congestive heart failure, unspecified heart failure type (HCC) Hyperlipidemia LDL goal <100 Other and unspecified hyperlipidemia Encounter for immunization Need for other specified prophylactic vaccination against single bacterial disease [facility]* Diagnosis Shortness of breath at rest [facility]* Diagnosis Acute on chronic systolic heart failure (HCC) Acute on chronic systolic heart failure [facility]* Diagnosis Bacterial pneumonia Bacterial pneumonia, unspecified [facility]* Diagnosis Viral URI with cough Acute upper respiratory infections of unspecified site [facility]* Diagnosis Acute cough- Primary Community acquired pneumonia, unspecified laterality Acute cough [facility]* Diagnosis Acute cough [facility]* Diagnosis Bacterial pneumonia- Primary Bacterial pneumonia, unspecified Oral mucosal lesion Other and unspecified diseases of the oral soft tissues Unsteady gait when walking [facility] Diagnosis Benign hypertension- Primary Essential hypertension, benign 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 Complete heart block (HCC) Atrioventricular block, complete Stage 3b chronic kidney disease (HCC) GERD without esophagitis Esophageal reflux Hyperlipidemia LDL goal <100 Other and unspecified hyperlipidemia Chronic congestive heart failure, unspecified heart failure type (HCC) [facility]* Diagnosis Stage 3b chronic kidney disease (HCC)- Primary Congestive heart failure, unspecified HF chronicity, unspecified heart failure type ([facility]) [facility]* Diagnosis Onset Date Resolution Status Admit Date Non-ischemic cardiomyopathy acute October 01, 2024 8:28am S/P mitral valve repair acute J 2024 8:28am 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 chronic October 01, 2024 8:28am Chronic anemia chronic October 01, 2024 8:28am Presence of permanent cardia c pacemaker August 02, 2018 chronic October 01, 2024 8:28am [facility] Work Phone: Evaluation note* Diagnosis Other congestive heart failure (HCC)- Primary Congestive heart failure, unspecified Iron deficiency anemia, unspecified iron deficiency anemia type Atrial fibrillation, unspecified type (HCC) watermaster (current) use of anticoagulants Long-term (current) use of anticoagulants FDC current use of diuretic CKD (chronic kidney disease) stage 4, GFR 15-29 ml/min (HCC) Chronic kidney disease, Stage IV (severe) Ischemic cardiomyopathy Other specified forms of chronic ischemic heart disease Presence of cardiac pacemaker Cardiac pacemaker in situ Dizziness and giddiness [facility]* Diagnosis Acute cough- Primary Postnasal drip Acute cough [facility] Acute [facility] Cardiovascular/Thoracic Surgery Location: None Selected [facility] Work Phone: Hospital Discharge instructions Additional Instructions Your urine is not consistent with UTI however we will send it for culture just to be thorough. Your creatinine is mildly improved today. Please follow-up as previously scheduled on Sunday with your care doctor. Please take the 3 days of increased Lasix as discussed with your cardiology office. If your symptoms worsen, you feel you are going to pass out, have difficulty breathing or any other concerns please return to the emergency room.[facility] Work Phone: Hospital Discharge instructions Additional Instructions If your oxygen goes below 90 at home or your symptoms progress or worsen please return to the emergency room. At this time everything appears stable and he did not require admission. Please continue to follow-up outpatient with your mold sander and your primary care doctor.[facility] Work Phone: Reason for referral (narrative)No reason for referral information availableWooACMC Healthcare System Work Phone: Summary Purpose Family History Relationship Condition Age at Onset Recorded Date/T cara father Cardiac disease Unknown Relationship Condition Age at Onset Recorded Date/T cara father Cardiac disease Unknown mother Cardiac disease Unknown Chronic anemia Unknown Iron deficiency Unknown Advance Directives Advance Directive Response Recorded Date/ Time Advance Directives Yes May 8:22am Living Will Yes January 01 7:28am Power of Diet Assistant No January 01, 2021 7:28am Advance Directive Response Recorded Date/ Time Advance Directives on File No November 22, 2022 10:13am Name of Medical Power of Diet Assistant Masha Dickey- Ciarra November 22, 2022 10:13am Advance Directives Yes November 22 10:13am Living Will Yes November 22, 2022 10:13am Power of Diet Assistant Yes November 22 10:13am Latest Code Status on File Code Status Date Activated Date Inactivated Comments Full Code 12/14/2022 5:47 AM 12/30/2022 5:08 PM Documents on File Type Date Recorded 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 Expl anation Advance Directives and Livin g Will 01/01/2023 11:02 AM Latest Code Status on File Code Status Date Activated Date Inactivated Comments Full Code 12/14/2022 5:47 AM 12/30/2022 5:08 PM Advance Directive Response Recorded Date/ Time Advance Directives Yes November 22 9:13am Living Will No December 11 3:23pm Power of Diet Assistant No December 11, 2 023 3:23pm Advance Directives on File No November 22, 2022 9:13am Name of Medical Power of Diet Assistant Masha Sauer Daughter November 22, 2022 9:13am Advance Directive Response Recorded Date/ Time Advance Directives Yes November 22 9:13am Living Will No March 14, 023 4:41pm Power of Diet Assistant No March 14, 2023 4:41pm Advance Directives on File No November 22, 2022 9:13am Name of Medical Power of Diet Assistant Masha Sauer Daughter November 22, 2022 9:13am Advance Directive Response Recorded Date/ Time Advance Directives Yes November 22 9:13am Living Will No March 16 023 1:17pm Power of Diet Assistant No March 16, 2023 1:17pm Advance Directives on File No November 22, 2022 9:13am Name of Medical Power of Diet Assistant Masha Sauer Daughter November 22, 2022 9:13am Advance Directive Response Recorded Date/ Time Name of Medical Power of Diet Assistant radha spencer and masha dickey March 16, 2023 10:05pm Advance Directives Yes November 22 9:13am Living Will Yes March 16 023 10:05pm Power of Diet Assistant Yes March 16, 2023 10:05pm Advance Directives on File No November 22, 2022 9:13am Name of Medical Power of Diet Assistant Masha Sauer Daughter November 22, 2022 9:13am Advance Directive Response Recorded Date/ Time Advance Directives Yes May 01, 2023 10:28am Living Will Yes May 01 10:28am Power of Diet Assistant Yes May 01 024 10:28am Name of Medical Power of Diet Assistant radha spencer and masha dickey March 16, 2023 10:05pm Advance Directive Response Recorded Date/ Time Name of Medical Power of Diet Assistant radha spencer and masha dickey March 16, 2023 10:05pm Name of Medical Power of Diet Assistant . June 12, 2023 3:01pm Advance Directives Yes May 01, 2023 10:28am Living Will Yes June 12, 024 3:01pm Power of Diet Assistant Yes June 12, 2023 3:01pm Advance Directive Response Recorded Date/ Time Name of Medical Power of Diet Assistant radha tolentino March 16, 2023 10:05pm Name of Medical Power of Diet Assistant Radha Roach June 12, 2023 11:09pm Advance Directives Yes May 01, 2023 10:28am Living Will Yes June 12 11:09pm Power of Diet Assistant Yes June 12, 2023 11:09pm Advance Directive Response Recorded Date/ Time Name of Medical Power of Diet Assistant radha tolentino March 16, 2023 10:05pm Name of Medical Power of Diet Assistant Radha Roach June 12, 2023 11:09pm Advance Directives Yes May 01, 2023 10:28am Living Will No June 27 12:45pm Power of Diet Assistant No June 27, 2023 12:45pm Advance Directive Response Recorded Date/ Time Name of Medical Power of Diet Assistant Radha Roach June 13, 2023 12:09am Advance Directives Yes May 01, 2023 11:28am Living Will No June 27 1:45pm Power of Diet Assistant No June 27, 2023 1:45pm Advance Directive Response Recorded Date/ Time Living Will No June 27 1:45pm Power of Diet Assistant No June 27, 2023 1:45pm Advance Directives Yes May 01, 2023 11:28am Advance Directive Response Recorded Date/ Time Living Will No June 27 1:45pm Do you have a Healthcare Power of Diet Assistant? No June 27, 2023 1:45pm Advance Directives Yes May 01, 2023 11:28am Advance Directive Response Recorded Date/ Time Advance Directives Yes May 01, 2023 11:28am Health Concerns Infection Onset Date Last Indicated Resolved Time COVID-19 Rule-Out 05/11/2022 05/11/2022 Chief Complaint and Reason for Visit Chief Complaint 6 M FU 3 mos remote PPM f/u 1 M FU 6 wk fu DYSPNEA/[id number] Amb Documentation Reason for Visit Atherosclerosis of c oronary artery of [place] heart without angina pectoris Dyspnea Essential (primary) hypertension Presence of permanent cardiac pacemaker Chronic diastolic (congestive) heart failure Mobitz (type) II atrioventricular block Presence of permanent cardiac pacemaker 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 Dyspnea Essential (primary) hypertension Presence of permanent cardiac pacemaker Ischemic cardiomyopathy Paroxysmal atrial flutter 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 Essential (primary) hypertension Presence of permanent cardiac pacemaker Chief Complaint 1 Y FU 3 mos remote PPM f/u Fibrosis of lung, Ischemic cardiomyopathy FU PER MMM SOB, FATIGUE, AND CORENARY ARTERY DISEASE Reason for Visit Ischemic cardiomyopa thy Paroxysmal atrial flutter 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 Essential (primary) hypertension Presence of permanent cardiac pacemaker Ischemic cardiomyopathy Paroxysmal atrial flutter Mobitz (type) II atrioventricular block Presence of permanent cardiac pacemaker Fatigue Ischemic cardiomyopathy Paroxysmal atrial flutter SOB (shortness of breath) Essential (primary) hypertension Presence of permanent cardiac pacemaker History of coronary artery stent placement Chief Complaint Fibrosis of lung, Is chemic cardiomyopathy FU PER MMM SOB, FATIGUE, AND CORENARY ARTERY DISEASE FALL S/P [facility] Unspecified atrial flutter Reason for Visit Fatigue Ischemic cardiomyopathy Paroxysmal atrial flutter SOB (shortness of breath) Essential (primary) hypertension Presence of permanent cardiac pacemaker History of coronary artery stent placement Ischemic cardiomyopathy Paroxysmal atrial flutter S/P mitral valve repair Essential (primary) hypertension 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 History of coronary artery stent placement Chief Complaint FU PER MMM SOB, FATIGUE, AND CORENARY ARTERY DISEASE FALL S/P [facility] Unspecified atrial flutter Overdue for in office check E ORDERS Reason for Visit Fatigue Ischemic cardiomyopathy Paroxysmal atrial flutter SOB (shortness of breath) Essential (primary) hypertension Presence of permanent cardiac pacemaker History of coronary artery stent placement Ischemic cardiomyopathy Paroxysmal atrial flutter S/P mitral valve repair Essential (primary) hypertension 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 History of coronary artery stent placement Ischemic cardiomyopathy Paroxysmal atrial flutter Mobitz (type) II atrioventricular block Presence of permanent cardiac pacemaker Chief Complaint FU PER MMM SOB, FATIGUE, AND CORENARY ARTERY DISEASE FALL S/P [facility] Unspecified atrial flutter Overdue for in office check E ORDERS GENERAL ILLNESS Reason for Visit Fatigue Ischemic cardiomyopathy Paroxysmal atrial flutter SOB (shortness of breath) Essential (primary) hypertension Presence of permanent cardiac pacemaker History of coronary artery stent placement Ischemic cardiomyopathy Paroxysmal atrial flutter S/P mitral valve repair Essential (primary) hypertension 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 History of coronary artery stent placement Ischemic cardiomyopathy Paroxysmal atrial flutter Mobitz (type) II atrioventricular block Presence of permanent cardiac pacemaker Chief Complaint SOB, FATIGUE, AND CO RENARY ARTERY DISEASE FALL S/P [facility] Unspecified atrial flutter Overdue for in office check E ORDERS GENERAL ILLNESS HF EXACERBATION Reason for Visit Ischemic cardiomyopa thy Paroxysmal atrial flutter S/P mitral valve repair Essential (primary) hypertension 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 History of coronary artery stent placement Ischemic cardiomyopathy Paroxysmal atrial flutter Mobitz (type) II atrioventricular block Presence of permanent cardiac pacemaker Anticoagulant long-term use WIN (dyspnea on exertion) Failure of outpatient treatment CHF exacerbation Chief Complaint SOB, FATIGUE, AND CO RENARY ARTERY DISEASE FALL S/P [facility] Unspecified atrial flutter Overdue for in office check E ORDERS GENERAL ILLNESS HF EXACERBATION Reason for Visit Ischemic cardiomyopa thy Paroxysmal atrial flutter S/P mitral valve repair Essential (primary) hypertension 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 History of coronary artery stent placement Ischemic cardiomyopathy Paroxysmal atrial flutter Mobitz (type) II atrioventricular block Presence of permanent cardiac pacemaker Anticoagulant long-term use WIN (dyspnea on exertion) Failure of outpatient treatment Hypokalemia CHF exacerbation Chief Complaint SOB, FATIGUE, AND CO RENARY ARTERY DISEASE FALL S/P [facility] Unspecified atrial flutter Overdue for in office check E ORDERS GENERAL ILLNESS HF EXACERBATION HF EXACERBATION HF EXACERBATION HF EXACERBATION HF EXACERBATION HF EXACERBATION Reason for Visit Ischemic cardiomyopa thy Paroxysmal atrial flutter S/P mitral valve repair Essential (primary) hypertension 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 History of coronary artery stent placement Ischemic cardiomyopathy Paroxysmal atrial flutter Mobitz (type) II atrioventricular block Presence of permanent cardiac pacemaker Anticoagulant long-term use WIN (dyspnea on exertion) Failure of outpatient treatment Fatigue Hypokalemia Ischemic cardiomyopathy Paroxysmal atrial flutter Pulmonary fibrosis S/P mitral valve repair SOB (shortness of breath) 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 CHF exacerbation Chronic diastolic (congestive) heart failure Essential (primary) hypertension Mobitz (type) II atrioventricular block 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 History of coronary artery stent placement History of ST elevation myocardial infarction (STEMI) Chief Complaint S/P [facility] Unspecified atrial flutter Pacer Check Remote Overdue for in office check E ORDERS GENERAL ILLNESS HF EXACERBATION HF EXACERBATION HF EXACERBATION HF EXACERBATION HF EXACERBATION HF EXACERBATION Pacer Check Remote CHF symptoms per Uriel BHAKTA Reason for Visit Ischemic cardiomyopa thy Paroxysmal atrial flutter S/P mitral valve repair Essential (primary) hypertension 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 History of coronary artery stent placement Ischemic cardiomyopathy Paroxysmal atrial flutter Mob[place] (type) II atrioventricular block Presence of permanent cardiac pacemaker Anticoagulant long-term use WIN (dyspnea on exertion) Failure of outpatient treatment Fatigue Ischemic cardiomyopathy Paroxysmal atrial flutter Pulmonary fibrosis S/P mitral valve repair SOB (shortness of breath) 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 CHF exacerbation Chronic diastolic (congestive) heart failure Essential (primary) hypertension Mobitz (type) II atrioventricular block 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 History of coronary artery stent placement History of ST elevation myocardial infarction (STEMI) Non-ischemic cardiomyopathy S/P mitral valve repair 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 Chief Complaint Unspecified atrial f lutter Pacer Check Remote Overdue for in office check E ORDERS GENERAL ILLNESS HF EXACERBATION HF EXACERBATION HF EXACERBATION HF EXACERBATION HF EXACERBATION HF EXACERBATION Pacer Check Remote CHF symptoms per Uriel BHAKTA Pacer Check Remote 3 M FU GI BLEED Reason for Visit Ischemic cardiomyopa thy Paroxysmal atrial flutter Mobitz (type) II atrioventricular block Presence of permanent cardiac pacemaker Anticoagulant long-term use WIN (dyspnea on exertion) Failure of outpatient treatment Fatigue Ischemic cardiomyopathy Paroxysmal atrial flutter Pulmonary fibrosis S/P mitral valve repair SOB (shortness of breath) 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 CHF exacerbation Chronic diastolic (congestive) heart failure Essential (primary) hypertension Mobitz (type) II atrioventricular block 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 History of coronary artery stent placement History of ST elevation myocardial infarction (STEMI) Non-ischemic cardiomyopathy S/P mitral valve repair 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 Non-ischemic cardiomyopathy S/P mitral valve repair 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 Anemia Anticoagulant long-term use GI bleed Hypotension Medication induced coagulopathy Non-ischemic cardiomyopathy Chief Complaint Unspecified atrial f lutter Pacer Check Remote Overdue for in office check E ORDERS GENERAL ILLNESS HF EXACERBATION HF EXACERBATION HF EXACERBATION HF EXACERBATION HF EXACERBATION HF EXACERBATION Pacer Check Remote CHF symptoms per Uriel Jenkins EORDER Pacer Check Remote 3 M FU MELANOTIC STOOLS WITH ACUTE BLOOD LOSS ANEMIA REQ MELANOTIC STOOLS WITH ACUTE BLOOD LOSS ANEMIA REQ MELANOTIC STOOLS WITH ACUTE BLOOD LOSS ANEMIA REQ MELANOTIC STOOLS WITH ACUTE BLOOD LOSS ANEMIA REQ MELANOTIC STOOLS WITH ACUTE BLOOD LOSS ANEMIA REQ MELANOTIC STOOLS WITH ACUTE BLOOD LOSS ANEMIA REQ MELANOTIC STOOLS WITH ACUTE BLOOD LOSS ANEMIA REQ MELANOTIC STOOLS WITH ACUTE BLOOD LOSS ANEMIA REQ MELANOTIC STOOLS WITH ACUTE BLOOD LOSS ANEMIA REQ Reason for Visit Ischemic cardiomyopa thy Paroxysmal atrial flutter Mobitz (type) II atrioventricular block Presence of permanent cardiac pacemaker Anticoagulant long-term use WIN (dyspnea on exertion) Failure of outpatient treatment Fatigue Ischemic cardiomyopathy Paroxysmal atrial flutter Pulmonary fibrosis S/P mitral valve repair SOB (shortness of breath) 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 CHF exacerbation Chronic diastolic (congestive) heart failure Essential (primary) hypertension Mobitz (type) II atrioventricular block 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 History of coronary artery stent placement History of ST elevation myocardial infarction (STEMI) Non-ischemic cardiomyopathy S/P mitral valve repair 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 Non-ischemic cardiomyopathy S/P mitral valve repair 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 Anemia Anticoagulant long-term use GI bleed Hypotension Medication induced coagulopathy Non-ischemic cardiomyopathy Chief Complaint Unspecified atrial f lutter Pacer Check Remote Overdue for in office check E ORDERS GENERAL ILLNESS HF EXACERBATION HF EXACERBATION HF EXACERBATION HF EXACERBATION HF EXACERBATION HF EXACERBATION Pacer Check Remote CHF symptoms per Uriel Jenkins EORDER Pacer Check Remote 3 M FU MELANOTIC STOOLS WITH ACUTE BLOOD LOSS ANEMIA REQ MELANOTIC STOOLS WITH ACUTE BLOOD LOSS ANEMIA REQ MELANOTIC STOOLS WITH ACUTE BLOOD LOSS ANEMIA REQ MELANOTIC STOOLS WITH ACUTE BLOOD LOSS ANEMIA REQ MELANOTIC STOOLS WITH ACUTE BLOOD LOSS ANEMIA REQ MELANOTIC STOOLS WITH ACUTE BLOOD LOSS ANEMIA REQ MELANOTIC STOOLS WITH ACUTE BLOOD LOSS ANEMIA REQ MELANOTIC STOOLS WITH ACUTE BLOOD LOSS ANEMIA REQ MELANOTIC STOOLS WITH ACUTE BLOOD LOSS ANEMIA REQ SOB Reason for Visit Ischemic cardiomyopa thy Paroxysmal atrial flutter Mobitz (type) II atrioventricular block Presence of permanent cardiac pacemaker WIN (dyspnea on exertion) Failure of outpatient treatment Fatigue Ischemic cardiomyopathy Paroxysmal atrial flutter Pulmonary fibrosis S/P mitral valve repair SOB (shortness of breath) 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 CHF exacerbation Chronic diastolic (congestive) heart failure Essential (primary) hypertension Mobitz (type) II atrioventricular block 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 History of coronary artery stent placement History of ST elevation myocardial infarction (STEMI) Non-ischemic cardiomyopathy S/P mitral valve repair 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 Non-ischemic cardiomyopathy S/P mitral valve repair 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 Non-ischemic cardiomyopathy Hypotension Chief Complaint Pacer Check Remote CHF symptoms per Uriel BHAKTA Pacer Check Remote 3 M FU MELANOTIC STOOLS WITH ACUTE BLOOD LOSS ANEMIA REQ MELANOTIC STOOLS WITH ACUTE BLOOD LOSS ANEMIA REQ MELANOTIC STOOLS WITH ACUTE BLOOD LOSS ANEMIA REQ MELANOTIC STOOLS WITH ACUTE BLOOD LOSS ANEMIA REQ MELANOTIC STOOLS WITH ACUTE BLOOD LOSS ANEMIA REQ MELANOTIC STOOLS WITH ACUTE BLOOD LOSS ANEMIA REQ MELANOTIC STOOLS WITH ACUTE BLOOD LOSS ANEMIA REQ MELANOTIC STOOLS WITH ACUTE BLOOD LOSS ANEMIA REQ MELANOTIC STOOLS WITH ACUTE BLOOD LOSS ANEMIA REQ SOB PCP req: CHF on CXR Reason for Visit Non-ischemic cardiom yopathy S/P mitral valve repair 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 Non-ischemic cardiomyopathy S/P mitral valve repair 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 Non-ischemic cardiomyopathy Hypotension Non-ischemic cardiomyopathy S/P mitral valve repair 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 Chronic anemia 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 Chief Complaint Pacer Check Remote 3 M FU MELANOTIC STOOLS WITH ACUTE BLOOD LOSS ANEMIA REQ MELANOTIC STOOLS WITH ACUTE BLOOD LOSS ANEMIA REQ MELANOTIC STOOLS WITH ACUTE BLOOD LOSS ANEMIA REQ MELANOTIC STOOLS WITH ACUTE BLOOD LOSS ANEMIA REQ MELANOTIC STOOLS WITH ACUTE BLOOD LOSS ANEMIA REQ MELANOTIC STOOLS WITH ACUTE BLOOD LOSS ANEMIA REQ MELANOTIC STOOLS WITH ACUTE BLOOD LOSS ANEMIA REQ MELANOTIC STOOLS WITH ACUTE BLOOD LOSS ANEMIA REQ MELANOTIC STOOLS WITH ACUTE BLOOD LOSS ANEMIA REQ SOB PCP req: CHF on CXR Pacer Check Remote Pacer Check Remote INT LABS Reason for Visit Non-ischemic cardiom yopathy S/P mitral valve repair 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 Non-ischemic cardiomyopathy Hypotension Non-ischemic cardiomyopathy S/P mitral valve repair 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 Chronic anemia 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 Chief Complaint Admit Date Pacer Check Remote May 09, 2024 2 :22am 6 M FU May 19, 2024 8 :19am Reason for Visit Admit Date Anemia May 19, 2024 8 :19am GI bleed May 19, 2024 8 :19am Chief Complaint Admit Date Pacer Check Remote May 09, 2024 2 :22am 6 M FU May 19, 2024 8 :19am E ORDER July 30, 2024 8:18 am Chief Complaint Admit Date E ORDER July 30, 2024 8:18 am Pacer Check Remote August 08, 2024 2:2 1am 6 M FU October 01, 2024 8:28a m Reason for Visit Admit Date Non-ischemic cardiomyopathy October 01 8:28am S/P mitral valve repair October 01, 2024 8 :28am 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 October 01, 2024 8:28am Chronic anemia October 01, 2024 8:28a m Presence of permanent cardiac pacemaker October 01, 2024 8:28am Chief Complaint Admit Date E ORDER July 30, 2024 8:18 am Pacer Check Remote August 08, 2024 2:2 1am 6 M FU October 01, 2024 8:28a m 4 WK FU October 29, 2024 11:06 am Reason for Visit Admit Date Non-ischemic cardiomyopathy October 01 8:28am S/P mitral valve repair October 01, 2024 8 :28am 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 October 01, 2024 8:28am Chronic anemia October 01, 2024 8:28a m Presence of permanent cardiac pacemaker October 01, 2024 8:28am Non-ischemic cardiomyopathy October 29 11:06am S/P mitral valve repair October 29, 2024 1 1:06am 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 October 29, 2024 11:06am Chronic anemia October 29, 2024 11:06 am Presence of permanent cardiac pacemaker October 29, 2024 11:06am Chief Complaint Admit Date E ORDER July 30, 2024 8:18 am Pacer Check Remote August 08, 2024 2:2 1am 6 M FU October 01, 2024 8:28a m 4 WK October 29, 2024 11:06 am 6 M FU November 04, 2024 8:22a m Reason for Visit Admit Date Non-ischemic cardiomyopathy October 01 8:28am S/P mitral valve repair October 01, 2024 8 :28am 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 October 01, 2024 8:28am Chronic anemia October 01, 2024 8:28a m Presence of permanent cardiac pacemaker October 01, 2024 8:28am Non-ischemic cardiomyopathy October 29 11:06am S/P mitral valve repair October 29, 2024 1 1:06am 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 October 29, 2024 11:06am Chronic anemia October 29, 2024 11:06 am Essential (primary) hypertension October 11:06am Paroxysmal atrial flutter October 29, 2024 11:06am Presence of permanent cardiac pacemaker October 29, 2024 11:06am Chief Complaint Admit Date E ORDER July 30, 2024 8:18 am Pacer Check Remote August 08, 2024 2:2 1am 6 M FU October 01, 2024 8:28a m 4 WK October 29, 2024 11:06 am 6 M FU November 04, 2024 8:22a m E ORDERS November 04, 2024 9:14a m Reason for Visit Admit Date Non-ischemic cardiomyopathy October 01 8:28am S/P mitral valve repair October 01, 2024 8 :28am 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 October 01, 2024 8:28am Chronic anemia October 01, 2024 8:28a m Presence of permanent cardiac pacemaker October 01, 2024 8:28am Non-ischemic cardiomyopathy October 29 11:06am S/P mitral valve repair October 29, 2024 1 1:06am 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 October 29, 2024 11:06am Chronic anemia October 29, 2024 11:06 am Essential (primary) hypertension October 11:06am Paroxysmal atrial flutter October 29, 2024 11:06am Presence of permanent cardiac pacemaker October 29, 2024 11:06am Anemia November 04, 2024 8:22a m GI bleed November 04, 2024 8:22a m Chief Complaint Admit Date E ORDER July 30, 2024 8:18 am Pacer Check Remote August 08, 2024 2:2 1am 6 M FU October 01, 2024 8:28a m 4 WK FU October 29, 2024 11:06 am 6 M FU November 04, 2024 8:22a m E ORDERS November 04, 2024 9:14a m Pacer Check Remote November 08, 2024 10:1 2am Chief Complaint Admit Date Pacer Check Remote August 08, 2024 2:2 1am 6 M FU October 01, 2024 8:28a m 4 WK FU October 29, 2024 11:06 am 6 M FU November 04, 2024 8:22a m E ORDERS November 04, 2024 9:14a m Pacer Check Remote November 08, 2024 10:1 2am EORDER December 04, 2024 8:3 6am 1 Y FU December 04, 2024 8:5 7am Chief Complaint Admit Date 6 M FU October 01, 2024 8:28a m 4 WK FU October 29, 2024 11:06 am 6 M FU November 04, 2024 8:22a m E ORDERS November 04, 2024 9:14a m Pacer Check Remote November 08, 2024 10:1 2am EORDER December 04, 2024 8:3 6am 1 Y FU December 04, 2024 8:5 7am Reason for Visit Admit Date Non-ischemic cardiomyopathy October 01 8:28am S/P mitral valve repair October 01, 2024 8 :28am 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 October 01, 2024 8:28am Chronic anemia October 01, 2024 8:28a m Presence of permanent cardiac pacemaker October 01, 2024 8:28am Non-ischemic cardiomyopathy October 29 11:06am S/P mitral valve repair October 29, 2024 1 1:06am 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 October 29, 2024 11:06am Chronic anemia October 29, 2024 11:06 am Essential (primary) hypertension October 11:06am Paroxysmal atrial flutter October 29, 2024 11:06am Presence of permanent cardiac pacemaker October 29, 2024 11:06am Anemia November 04, 2024 8:22a m GI bleed November 04, 2024 8:22a m Non-ischemic cardiomyopathy December 04, 2024 8:57am S/P mitral valve repair December 04, 2024 8:57am 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 December 04, 2024 8:57am Chronic anemia December 04, 2024 8:5 7am Essential (primary) hypertension December 04, 2024 8:57am Paroxysmal atrial flutter December 04 8:57am Presence of permanent cardiac pacemaker December 04, 2024 8:57am Chief Complaint Admit Date 6 M FU October 01, 2024 8:28a m 4 WK FU October 29, 2024 11:06 am 6 M FU November 04, 2024 8:22a m E ORDERS November 04, 2024 9:14a m Pacer Check Remote November 08, 2024 10:1 2am EORDER December 04, 2024 8:3 6am 1 Y FU December 04, 2024 8:5 7am Pacer update w/ [employer] Septem 2024 3:22pm Reason for Visit Admit Date Non-ischemic cardiomyopathy October 01 8:28am S/P mitral valve repair October 01, 2024 8 :28am 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 October 01, 2024 8:28am Chronic anemia October 01, 2024 8:28a m Presence of permanent cardiac pacemaker October 01, 2024 8:28am Non-ischemic cardiomyopathy October 29 11:06am S/P mitral valve repair October 29, 2024 1 1:06am 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 October 29, 2024 11:06am Chronic anemia October 29, 2024 11:06 am Essential (primary) hypertension October 11:06am Paroxysmal atrial flutter October 29, 2024 11:06am Presence of permanent cardiac pacemaker October 29, 2024 11:06am Anemia November 04, 2024 8:22a m GI bleed November 04, 2024 8:22a m Non-ischemic cardiomyopathy December 04, 2024 8:57am S/P mitral valve repair December 04, 2024 8:57am 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 December 04, 2024 8:57am Chronic anemia December 04, 2024 8:5 7am Essential (primary) hypertension December 04, 2024 8:57am Paroxysmal atrial flutter December 04 8:57am Presence of permanent cardiac pacemaker December 04, 2024 8:57am Mobitz (type) II atrioventricular block January 19, 2025 3:22pm Presence of permanent cardiac pacemaker January 19, 2025 3:22pm Chief Complaint Admit Date 6 M FU October 01, 2024 8:28a m 4 WK October 29, 2024 11:06 am 6 M FU November 04, 2024 8:22a m E ORDERS November 04, 2024 9:14a m Pacer Check Remote November 08, 2024 10:1 2am EORDER December 04, 2024 8:3 6am 1 Y FU December 04, 2024 8:5 7am Pacer update w/ [employer] Septem joe 2024 3:22pm Pacer Check Remote January 20, 2025 9:00am Chief Complaint Admit Date 4 WK FU October 29, 2024 11:06 am 6 M FU November 04, 2024 8:22a m E ORDERS November 04, 2024 9:14a m Pacer Check Remote November 08, 2024 10:1 2am EORDER December 04, 2024 8:3 6am 1 Y December 04, 2024 8:5 7am Pacer update w/ [employer] Septem 2024 3:22pm Pacer Check Remote January 20, 2025 2:21am Pacer Check Remote January 20, 2025 9:00am Reason for Visit Admit Date Non-ischemic cardiomyopathy October 29 11:06am S/P mitral valve repair October 29, 2024 1 1:06am 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 October 29, 2024 11:06am Chronic anemia October 29, 2024 11:06 am Essential (primary) hypertension October 11:06am Paroxysmal atrial flutter October 29, 2024 11:06am Presence of permanent cardiac pacemaker October 29, 2024 11:06am Anemia November 04, 2024 8:22a m GI bleed November 04, 2024 8:22a m Non-ischemic cardiomyopathy December 04, 2024 8:57am S/P mitral valve repair December 04, 2024 8:57am 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 December 04, 2024 8:57am Chronic anemia December 04, 2024 8:5 7am Essential (primary) hypertension December 04, 2024 8:57am Paroxysmal atrial flutter December 04 8:57am Presence of permanent cardiac pacemaker December 04, 2024 8:57am Mobitz (type) II atrioventricular block January 19, 2025 3:22pm Presence of permanent cardiac pacemaker January 19, 2025 3:22pm Chief Complaint Admit Date 6 M FU November 04, 2024 8:22a m E ORDERS November 04, 2024 9:14a m Pacer Check Remote November 08, 2024 10:1 2am EORDER December 04, 2024 8:3 6am 1 Y FU December 04, 2024 8:5 7am Pacer update w/ [employer] Sept 2024 3:22pm Pacer Check Remote January 20, 2025 2:21am Pacer Check Remote January 20, 2025 9:00am Reason for Visit Admit Date Anemia November 04, 2024 8:22a m GI bleed November 04, 2024 8:22a m Non-ischemic cardiomyopathy December 04, 2024 8:57am S/P mitral valve repair December 04, 2024 8:57am 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 December 04, 2024 8:57am Chronic anemia December 04, 2024 8:5 7am Essential (primary) hypertension December 04, 2024 8:57am Paroxysmal atrial flutter December 04 8:57am Presence of permanent cardiac pacemaker December 04, 2024 8:57am Mobitz (type) II atrioventricular block January 19, 2025 3:22pm Presence of permanent cardiac pacemaker January 19, 2025 3:22pm Reason for Referral Specialty Diagnoses / Procedures Referred By Contac t Referred To Contact Pulmonary and Critical Care Medicine Diagnoses Pulmonary fibrosis (HCC) Procedures CONSULT TO PULM/CRITICAL CARE OFFICE/OUTPATIENT [facility] 60-74 MINUTES Amalia Avery MD [address] [place] [address] Referral ID Status Reason Start Date Expiration Date Visits Requested Visits Authorized [id number] Pending Review PCP Requested Referral 05/29/2022 05/29/2023 1 1 Specialty Diagnoses / Procedures Referred By Contac t Referred To Contact Radiology Diagnoses Atherosclerotic heart disease of [place] coronary artery without angina pectoris Nonrheumatic mitral (valve) insufficiency Procedures CT chest wo IV contrast Danielle Lai MD [address] [place] [address] [address] [place] [address] Referral ID Status Reason Start Date Expiration Date Visits Re quested Visits Authorized [id number] Closed 11/29/2022 05/28/2023 1 1 Specialty Diagnoses / Procedures Referred By Contac t Referred To Contact Nephrology Diagnoses Stage 3b chronic kidney disease (HCC) Procedures CONSULT TO NEPHROLOGY OFFICE/OUTPATIENT [facility] 60-74 MINUTES Amalia Avery MD [address] [place] [address] Referral ID Status Reason Start Date Expiration Date Visits Requested Visits Authorized [id number] Pending Review PCP Requested Referral 04/05/2023 04/04/2024 1 1 Specialty Diagnoses / Procedures Referred By Contac t Referred To Contact Gastroenterology Diagnoses Gastrointestinal hemorrhage associated with duodenal ulcer Procedures CONSULT TO GASTROENTEROLOGY OFFICE/OUTPATIENT [facility] 60 MINUTES Amalia Avery MD [address] [place] [address] Referral ID Status Reason Start Date Expiration Date Visits Requested Visits Authorized [id number] Authorized PCP Requested Referral 06/27/2023 06/26/2024 1 1 Additional Source Comments INFORMATION SOURCE (unrecogn ized section and content) DATE CREATED AUTHOR 03/11/2019 [facility] DATE CREATED AUTHOR AUTHOR'S ORGANIZ ATION 06/03/2023 [facility] DATE CREATED AUTHOR AUTHOR'S ORGANIZ ATION 02/16/[address] [facility] DATE CREATED AUTHOR AUTHOR'S ORGANIZ ATION 02/19/2025 [facility] Source Comments (unrecognize d section and content) In the event this informatio n is protected by the Federal Confidentiality of Alcohol and Drug Abuse Patient Records regulations: The Federal rules restrict any use of the information to criminally investigate or prosecute any alcohol or drug abuse patient.[facility] the event this information is protected by the Federal Confidentiality of Alcohol and Drug Abuse Patient Records regulations: The Federal rules restrict any use of the information to criminally investigate or prosecute any alcohol or drug abuse patient.[facility] the event this information is protected by the Federal Confidentiality of Alcohol and Drug Abuse Patient Records regulations: The Federal rules restrict any use of the information to criminally investigate or prosecute any alcohol or drug abuse patient.[facility] the event this information is protected by the Federal Confidentiality of Alcohol and Drug Abuse Patient Records regulations: The Federal rules restrict any use of the information to criminally investigate or prosecute any alcohol or drug abuse patient.[facility]In the event this information is protected by the Federal Confidentiality of Alcohol and Drug Abuse Patient Records regulations: The Federal rules restrict any use of the information to criminally investigate or prosecute any alcohol or drug abuse patient.[facility] the event this information is protected by the Federal Confidentiality of Alcohol and Drug Abuse Patient Records regulations: The Federal rules restrict any use of the information to criminally investigate or prosecute any alcohol or drug abuse patient.[facility] CampusIn the event this information is protected by the Federal Confidentiality of Alcohol and Drug Abuse Patient Records regulations: The Federal rules restrict any use of the information to criminally investigate or prosecute any alcohol or drug abuse patient.[facility] CampusIn the event this information is protected by the Federal Confidentiality of Alcohol and Drug Abuse Patient Records regulations: The Federal rules restrict any use of the information to criminally investigate or prosecute any alcohol or drug abuse patient.[facility] the event this information is protected by the Federal Confidentiality of Alcohol and Drug Abuse Patient Records regulations: The Federal rules restrict any use of the information to criminally investigate or prosecute any alcohol or drug abuse patient.[facility] the event this information is protected by the Federal Confidentiality of Alcohol and Drug Abuse Patient Records regulations: The Federal rules restrict any use of the information to criminally investigate or prosecute any alcohol or drug abuse patient.[facility] the event this information is protected by the Federal Confidentiality of Alcohol and Drug Abuse Patient Records regulations: The Federal rules restrict any use of the information to criminally investigate or prosecute any alcohol or drug abuse patient.[facility] CampusIn the event this information is protected by the Federal Confidentiality of Alcohol and Drug Abuse Patient Records regulations: The Federal rules restrict any use of the information to criminally investigate or prosecute any alcohol or drug abuse patient.[facility] CampusIn the event this information is protected by the Federal Confidentiality of Alcohol and Drug Abuse Patient Records regulations: The Federal rules restrict any use of the information to criminally investigate or prosecute any alcohol or drug abuse patient.[facility] CampusIn the event this information is protected by the Federal Confidentiality of Alcohol and Drug Abuse Patient Records regulations: The Federal rules restrict any use of the information to criminally investigate or prosecute any alcohol or drug abuse patient.[facility] CampusIn the event this information is protected by the Federal Confidentiality of Alcohol and Drug Abuse Patient Records regulations: The Federal rules restrict any use of the information to criminally investigate or prosecute any alcohol or drug abuse patient.[facility] CampusIn the event this information is protected by the Federal Confidentiality of Alcohol and Drug Abuse Patient Records regulations: The Federal rules restrict any use of the information to criminally investigate or prosecute any alcohol or drug abuse patient.[facility] CampusIn the event this information is protected by the Federal Confidentiality of Alcohol and Drug Abuse Patient Records regulations: The Federal rules restrict any use of the information to criminally investigate or prosecute any alcohol or drug abuse patient.[facility] CampusIn the event this information is protected by the Federal Confidentiality of Alcohol and Drug Abuse Patient Records regulations: The Federal rules restrict any use of the information to criminally investigate or prosecute any alcohol or drug abuse patient.[facility] CampusIn the event this information is protected by the Federal Confidentiality of Alcohol and Drug Abuse Patient Records regulations: The Federal rules restrict any use of the information to criminally investigate or prosecute any alcohol or drug abuse patient.[facility] CampusIn the event this information is protected by the Federal Confidentiality of Alcohol and Drug Abuse Patient Records regulations: The Federal rules restrict any use of the information to criminally investigate or prosecute any alcohol or drug abuse patient.[facility] CampusIn the event this information is protected by the Federal Confidentiality of Alcohol and Drug Abuse Patient Records regulations: The Federal rules restrict any use of the information to criminally investigate or prosecute any alcohol or drug abuse patient.[facility] CampusIn the event this information is protected by the Federal Confidentiality of Alcohol and Drug Abuse Patient Records regulations: The Federal rules restrict any use of the information to criminally investigate or prosecute any alcohol or drug abuse patient.[facility] CampusIn the event this information is protected by the Federal Confidentiality of Alcohol and Drug Abuse Patient Records regulations: The Federal rules restrict any use of the information to criminally investigate or prosecute any alcohol or drug abuse patient.[facility] CampusIn the event this information is protected by the Federal Confidentiality of Alcohol and Drug Abuse Patient Records regulations: The Federal rules restrict any use of the information to criminally investigate or prosecute any alcohol or drug abuse patient.[facility] CampusIn the event this information is protected by the Federal Confidentiality of Alcohol and Drug Abuse Patient Records regulations: The Federal rules restrict any use of the information to criminally investigate or prosecute any alcohol or drug abuse patient.[facility] CampusIn the event this information is protected by the Federal Confidentiality of Alcohol and Drug Abuse Patient Records regulations: The Federal rules restrict any use of the information to criminally investigate or prosecute any alcohol or drug abuse patient.[facility] CampusIn the event this information is protected by the Federal Confidentiality of Alcohol and Drug Abuse Patient Records regulations: The Federal rules restrict any use of the information to criminally investigate or prosecute any alcohol or drug abuse patient.[facility] CampusIn the event this information is protected by the Federal Confidentiality of Alcohol and Drug Abuse Patient Records regulations: The Federal rules restrict any use of the information to criminally investigate or prosecute any alcohol or drug abuse patient.[facility] CampusIn the event this information is protected by the Federal Confidentiality of Alcohol and Drug Abuse Patient Records regulations: The Federal rules restrict any use of the information to criminally investigate or prosecute any alcohol or drug abuse patient.[facility] CampusIn the event this information is protected by the Federal Confidentiality of Alcohol and Drug Abuse Patient Records regulations: The Federal rules restrict any use of the information to criminally investigate or prosecute any alcohol or drug abuse patient.[facility] CampusIn the event this information is protected by the Federal Confidentiality of Alcohol and Drug Abuse Patient Records regulations: The Federal rules restrict any use of the information to criminally investigate or prosecute any alcohol or drug abuse patient.[facility] CampusIn the event this information is protected by the Federal Confidentiality of Alcohol and Drug Abuse Patient Records regulations: The Federal rules restrict any use of the information to criminally investigate or prosecute any alcohol or drug abuse patient.[facility] CampusIn the event this information is protected by the Federal Confidentiality of Alcohol and Drug Abuse Patient Records regulations: The Federal rules restrict any use of the information to criminally investigate or prosecute any alcohol or drug abuse patient.[facility] CampusIn the event this information is protected by the Federal Confidentiality of Alcohol and Drug Abuse Patient Records regulations: The Federal rules restrict any use of the information to criminally investigate or prosecute any alcohol or drug abuse patient.[facility] CampusIn the event this information is protected by the Federal Confidentiality of Alcohol and Drug Abuse Patient Records regulations: The Federal rules restrict any use of the information to criminally investigate or prosecute any alcohol or drug abuse patient.[facility] CampusIn the event this information is protected by the Federal Confidentiality of Alcohol and Drug Abuse Patient Records regulations: The Federal rules restrict any use of the information to criminally investigate or prosecute any alcohol or drug abuse patient.[facility] CampusIn the event this information is protected by the Federal Confidentiality of Alcohol and Drug Abuse Patient Records regulations: The Federal rules restrict any use of the information to criminally investigate or prosecute any alcohol or drug abuse patient.[facility] CampusIn the event this information is protected by the Federal Confidentiality of Alcohol and Drug Abuse Patient Records regulations: The Federal rules restrict any use of the information to criminally investigate or prosecute any alcohol or drug abuse patient.[facility] CampusIn the event this information is protected by the Federal Confidentiality of Alcohol and Drug Abuse Patient Records regulations: The Federal rules restrict any use of the information to criminally investigate or prosecute any alcohol or drug abuse patient.[facility] CampusIn the event this information is protected by the Federal Confidentiality of Alcohol and Drug Abuse Patient Records regulations: The Federal rules restrict any use of the information to criminally investigate or prosecute any alcohol or drug abuse patient.[facility] CampusIn the event this information is protected by the Federal Confidentiality of Alcohol and Drug Abuse Patient Records regulations: The Federal rules restrict any use of the information to criminally investigate or prosecute any alcohol or drug abuse patient.[facility] CampusIn the event this information is protected by the Federal Confidentiality of Alcohol and Drug Abuse Patient Records regulations: The Federal rules restrict any use of the information to criminally investigate or prosecute any alcohol or drug abuse patient.[facility] CampusIn the event this information is protected by the Federal Confidentiality of Alcohol and Drug Abuse Patient Records regulations: The Federal rules restrict any use of the information to criminally investigate or prosecute any alcohol or drug abuse patient.[facility] CampusIn the event this information is protected by the Federal Confidentiality of Alcohol and Drug Abuse Patient Records regulations: The Federal rules restrict any use of the information to criminally investigate or prosecute any alcohol or drug abuse patient.[facility] CampusIn the event this information is protected by the Federal Confidentiality of Alcohol and Drug Abuse Patient Records regulations: The Federal rules restrict any use of the information to criminally investigate or prosecute any alcohol or drug abuse patient.[facility] CampusIn the event this information is protected by the Federal Confidentiality of Alcohol and Drug Abuse Patient Records regulations: The Federal rules restrict any use of the information to criminally investigate or prosecute any alcohol or drug abuse patient.[facility] CampusIn the event this information is protected by the Federal Confidentiality of Alcohol and Drug Abuse Patient Records regulations: The Federal rules restrict any use of the information to criminally investigate or prosecute any alcohol or drug abuse patient.[facility] CampusIn the event this information is protected by the Federal Confidentiality of Alcohol and Drug Abuse Patient Records regulations: The Federal rules restrict any use of the information to criminally investigate or prosecute any alcohol or drug abuse patient.[facility] CampusIn the event this information is protected by the Federal Confidentiality of Alcohol and Drug Abuse Patient Records regulations: The Federal rules restrict any use of the information to criminally investigate or prosecute any alcohol or drug abuse patient.[facility] CampusIn the event this information is protected by the Federal Confidentiality of Alcohol and Drug Abuse Patient Records regulations: The Federal rules restrict any use of the information to criminally investigate or prosecute any alcohol or drug abuse patient.[facility] CampusIn the event this information is protected by the Federal Confidentiality of Alcohol and Drug Abuse Patient Records regulations: The Federal rules restrict any use of the information to criminally investigate or prosecute any alcohol or drug abuse patient.[facility] CampusIn the event this information is protected by the Federal Confidentiality of Alcohol and Drug Abuse Patient Records regulations: The Federal rules restrict any use of the information to criminally investigate or prosecute any alcohol or drug abuse patient.[facility] CampusIn the event this information is protected by the Federal Confidentiality of Alcohol and Drug Abuse Patient Records regulations: The Federal rules restrict any use of the information to criminally investigate or prosecute any alcohol or drug abuse patient.[facility] CampusIn the event this information is protected by the Federal Confidentiality of Alcohol and Drug Abuse Patient Records regulations: The Federal rules restrict any use of the information to criminally investigate or prosecute any alcohol or drug abuse patient.[facility] CampusIn the event this information is protected by the Federal Confidentiality of Alcohol and Drug Abuse Patient Records regulations: The Federal rules restrict any use of the information to criminally investigate or prosecute any alcohol or drug abuse patient.[facility] Reason for Visit (unrecogniz ed section and content) Reason Comments Transition Of Care Refill Request Reason Comments Results Reason Comments Cough Pt reported nasal /c hest congestion x4 days. 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10] Nonrheumatic aortic (valve) stenosis [I35.0] Procedures WY CABG W/ARTERIAL GRAFT THREE ARTERIAL GRAFTS WY ECHO TRANSESOPHAG R-T 2D W/PRB IMG ACQUISJ I&R WY VALVULOPLASTY MITRAL VALVE W/CARDIAC BYPASS CABG, MITRAL VALVE REPAIR, ELA Echocardiography transesophageal real-time VALVULOPLASTY MITRAL VALVE WITH CARDIOPULMONARY BYPASS Danielle Lai MD [address] [place] [address] [address] [place] [address] [address] [place] [address] Referral ID Status Reason Start Date Expiration Date Visits Re quested Visits Authorized [id number] 1 Reason Comments Post-op Reason Onset Date Comments Post-op Follow-up 02/16/2023 Reason Comments Patient Update Reason Comments ER F/U Fatigue Blood Pressure Patient reports has been running low and that [facility] has been adjusting medications Reason Comments Hospital F/U Reason Comments Home Health Orders Reason Comments Hospital F/U [facility] discharged 06/17; has had some increased SOB today. Sister yesterday. Reason Comments [facility] update Pt SOB/anemia 7.7 hgb Reason Comments Follow Up SOB Reason Comments Patient Update [facility] Reason Comments Appointment Reason Onset Date Comments Transition Of Care 06/18/2023 Reason Comments Patient Question Reason Comments Orders Reason Comments Weight Problem Patient stated exces sive weight loss Anemia Patient concerned wi th iron furosemide concerns Reason Comments Follow Up 3 month follow up -G I Bleed Reason Comments F/U 3 Month Reason Comments Cough Chest congestion x2 days, hoarse voice Reason Comments Follow Up EC visit 05/10/24 Reason Onset Date Comments Population Health Navigation Outreach 05/27/2024 [employer] High Risk - Attempt 1 Reason Onset Date Comments Population Health Navigation Outreach 06/02/2024 [employer] High Risk - Attempt 2 Reason Comments F/U 6 months Reason Onset Date Comments 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 Brumfield wanted pat ient to be checked by PCP before seeing him. Reason Comments Cough And nasal drainage x 7 days Care Teams (unrecognized sec tion and content) Dewatering Filtering Supervisor Relationship Specialty Start Date End Date Miles De La Torre, GRIS.BRANCH OFFICE MANAGER, DNP [address] [place] [address] PCP - General Family Practice 01/04/21 Brissa, Derek S [address] [place] [address] Cardiology 03/11/19 Dewatering Filtering Supervisor Relationship Specialty Start Date End Date Amalia Avery MD [address] [facility] [place] [address] PCP - General Family Practice 11/16/21 Brissa, Derek S [address] [place] [address] Cardiology 03/11/19 Dewatering Filtering Supervisor Relationship Specialty Start Date End Date Amalia Avery MD [address] [facility] [place] [address] PCP - General Family Medicine 11/16/21 Brissa, Clancy S [address] [place] [address] Cardiology 03/11/19 Dewatering Filtering Supervisor Relationship Specialty Start Date End Date Amalia Avery MD [address] [place] [address] PCP - General Family Medicine 11/16/21 Brissa, Derek S [address] [place] [address] Cardiology 03/11/19 Dewatering Filtering Supervisor Relationship Specialty Start Date End Date Amalia Avery MD [address] [place] [address] PCP - General Family Medicine 11/16/21 Brissa, Clancy S [address] [place] [address] Cardiology 03/11/19 Dewatering Filtering Supervisor Relationship Specialty Start Date End Date Amalia Avery MD [address] [place] [address] PCP - General Family Medicine 11/16/21 Brissa, Clancy S [address] [phone] Cardiology 03/11/19 Team Status: Active Member Role Status Dates Dr. Brittanie Garrido III, MD Family Provider Active Dr. Luiz Avery MD Primary Care Provider Acti ve Team Status: Inactive Member Role Status Dates Miles De La Torre SENIOR MOBILE DEVELOPER, SENIOR MOBILE DEVELOPER-C Primary Care Provider, Referring Provider Active Bart Gonzalez SENIOR MOBILE DEVELOPER, SENIOR MOBILE DEVELOPER-C Attending Provider Active Team Status: Inactive Member Role Status Dates Miles De La Torre SENIOR MOBILE DEVELOPER, SENIOR MOBILE DEVELOPER-C Primary Care Provider Active Heather Canseco Active Dr. Derek Brumfield MD Attending Provider, Referring Pro vider Active Team Status: Active Member Role Status Dates Dr. Luiz Avery MD Primary Care Provider Acti ve Dr. Derek Brumfield MD Attending Provider Active Team Status: Active Member Role Status Dates Dr. Luiz Avery MD Primary Care Provider Acti ve Bart Gonzalez SENIOR MOBILE DEVELOPER, SENIOR MOBILE DEVELOPER-C Attending Provider Active Team Status: Inactive Member Role Status Dates Bart Gonzalez SENIOR MOBILE DEVELOPER, SENIOR MOBILE DEVELOPER-C Attending Provider, Referring Pro vider Active Dr. Luiz Avery MD Primary Care Provider Acti ve Dewatering Filtering Supervisor Relationship Specialty Start Date End Date Amalia Avery MD [address] [place], [place] [id number] PCP - General Family Medicine 11/16/21 Brissa, Clancy S [address] [phone]- Cardiology 03/11/19 Dewatering Filtering Supervisor Relationship Specialty Start Date End Date Amalia Avery MD [address] [place], [place] [id number] PCP - General Family Medicine 11/16/21 Brissa, Derek S [address] [phone] Cardiology 03/11/19 Team Status: Inactive Member Role Status Dates Miles De La Torre SENIOR MOBILE DEVELOPER, SENIOR MOBILE DEVELOPER-C Referring Provider Active Dr. Derek Brumfield MD Attending Provider Active Dr. Luiz LEARY MD Primary Care Provider A ctive Team Status: Inactive Member Role Status Dates Heather Canseco Active Dr. Luiz Avery MD Primary Care Provider Acti ve Dr. Derek Brumfield MD Attending Provider, Referring Pro vider Active Team Status: Inactive Member Role Status Dates Dr. Luiz Avery MD Primary Care Provider, Ref erring Provider Active Kinga Eubanks PA, PA Attending Provider Active Team Status: Inactive Member Role Status Dates Dr. Luiz Avery MD Primary Care Provider Acti ve Dr. Derek Brumfield MD Attending Provider, Referring Pro vider Active Team Status: Inactive Member Role Status Dates Dr. Luiz Avery MD Primary Care Provider Acti ve Kinga Eubanks PA, PA Attending Provider, Referr ing Provider Active Dewatering Filtering Supervisor Relationship Specialty Start Date End Date Amalia Avery MD [address] [place] [address] PCP - General Family Medicine 11/23/22 Dewatering Filtering Supervisor Relationship Specialty Start Date End Date Amalia Avery MD [address] [place] [address] PCP - General Family Medicine 11/23/22 Dewatering Filtering Supervisor Relationship Specialty Start Date End Date Amalia Avery MD [address] [place] [address] PCP - General Family Medicine 11/23/22 Dewatering Filtering Supervisor Relationship Specialty Start Date End Date Amalia Avery MD [address] [place] [address] PCP - General Family Medicine 11/23/22 Dewatering Filtering Supervisor Relationship Specialty Start Date End Date Amalia Avery MD [address] [place] [address] PCP - General Family Medicine 11/23/22 Dewatering Filtering Supervisor Relationship Specialty Start Date End Date Amalia Avery MD [address] [place] [address] PCP - General Family Medicine 11/23/22 Dewatering Filtering Supervisor Relationship Specialty Start Date End Date Amalia Avery MD [address] [place] [address] PCP - General Family Medicine 11/23/22 Dewatering Filtering Supervisor Relationship Specialty Start Date End Date Amalia Avery MD [address] [place] [address] PCP - General Family Medicine 11/23/22 Team Status: Active Member Role Status Dates Dr. Luiz Avery MD Primary Care Provider Acti ve Dr. Derek Brumfield MD Attending Provider, Referring Pro vider Active Team Status: Inactive Member Role Status Dates Dr. Luiz Avery MD Primary Care Provider Acti ve Dr. Kobi Manuel DO Attending Provider, Emergency Pro vider Active Team Status: Inactive Member Role Status Dates Dr. Luiz Avery MD Primary Care Provider Acti ve Yumiko Mejias SENIOR MOBILE DEVELOPER, SENIOR MOBILE DEVELOPER-C Attending Provider, Referring P carol Active Team Status: Active Member Role Status Dates Dr. Luiz Avery MD Primary Care Provider, Att ending Provider Active Dr. Derek Brumfield MD Referring Provider Active Team Status: Inactive Member Role Status Dates Dr. Luiz LEARY MD Referring Provider Acti ve Heather Canseco Attending Provider Active Dr. Luiz Avery MD Primary Care Provider Acti ve Team Status: Active Member Role Status Dates Dr. Luiz Avery MD Primary Care Provider Acti ve Yumiko Mejias SENIOR MOBILE DEVELOPER, SENIOR MOBILE DEVELOPER-C Attending Provider Active Team Status: Inactive Member Role Status Dates Dr. Luiz Avery MD Primary Care Provider Acti ve Dr. Sherry Matta , Emergency Provider Active Dewatering Filtering Supervisor Relationship Specialty Start Date End Date Amalia Avery MD [address] [place] [address] PCP - General Family Medicine 11/16/21 Derek Brumfield MD [address] [facility] [address] [place] [address] Cardiology 03/11/19 Team Status: Active Member Role Status Dates Dr. Luiz Avery MD Primary Care Provider Acti ve Dr. Sherry Matta , Emergency Provider Active Dr. Willa Garcia MD Admit Provider, Attending Prov ider Active Dewatering Filtering Supervisor Relationship Specialty Start Date End Date mAalia Avery MD [address] [place] [address] PCP - General Family Medicine 11/16/21 Derek Brumfield MD [address] [facility] [address] [place] [address] Cardiology 03/11/19 Team Status: Inactive Member Role Status Dates Dr. Luiz Avery MD Primary Care Provider Acti ve Yumiko Mejias SENIOR MOBILE DEVELOPER, SENIOR MOBILE DEVELOPER-C Attending Provider Active Team Status: Active Member Role Status Dates Dr. Luiz Avery MD Primary Care Provider Acti ve Dr. Sherry Matta , Emergency Provider Active Dr. Willa Garcia MD Admit Provider, Other Provider Active Dr. Rashid Hankins MD Other Provider Active Dr. Deandre Lozano , DO Attending Provider Active Team Status: Active Member Role Status Dates Dr. Luiz Avery MD Primary Care Provider Acti ve Dr. Rashid Hankins MD Attending Provider Active Team Status: Active Member Role Status Dates Dr. Luiz Avery MD Primary Care Provider Acti ve Dr. Sherry Matta , Emergency Provider Active Dr. Willa Garcia MD Admit Provider, Other Provider Active Dr. Rashid Hankins MD Other Provider Active Dr. Deandre Lozano DO Attending Provider, Other Provid er Active Team Status: Active Member Role Status Dates Dr. Luiz Avery MD Primary Care Provider Acti ve Dr. Sherry Matta , DO Emergency Provider Active Dr. Willa Garcia MD Admit Provider, Other Provider Active Dr. Rashid Hankins MD Attending Provider, Other Provid er Active Dr. Deandre Lozano DO Other Provider Active Team Status: Active Member Role Status Dates Dr. Luiz Avery MD Primary Care Provider Acti ve Dr. Sherry Matta , Emergency Provider Active Dr. Willa Garcia MD Admit Provider, Other Provider Active Dr. Rashid Hankins MD Other Provider Active Dr. Nicolás Howell MD Other Provider Active Dr. Deandre Lozano DO Other Provider Active Kinga Eubanks PA, PA Attending Provider Active Team Status: Active Member Role Status Dates Dr. Luiz Avery MD Primary Care Provider Acti ve Dr. Sherry Matta , Emergency Provider Active Dr. Willa Garcia MD Admit Provider, Other Provider Active Dr. Rashid Hankins MD Other Provider Active Dr. Nicolás Howell MD Attending Provider, Other Provider Active Dr. Deandre Lozano DO Other Provider Active Team Status: Inactive Member Role Status Dates Dr. Luiz Avery MD Primary Care Provider Acti ve Dr. Sherry Matta DO Attending Provider, Emergency P carol Active Team Status: Inactive Member Role Status Dates Dr. Luiz Avery MD Primary Care Provider Acti ve Dr. Sherry Matta DO Emergency Provider Active Dr. Willa Garcia MD Admit Provider, Other Provider Active Dr. Rashid Hankins MD Other Provider Active Dr. Nicolás Howell MD Attending Provider Active Dr. Deandre Lozano DO Other Provider Active Dewatering Filtering Supervisor Relationship Specialty Start Date End Date Amalia Avery MD [address] [place] [address] PCP - General Family Medicine 11/16/21 Derek Brumfield MD [address] [email or web address] [address] [place], [place] [address] Cardiology 03/11/19 Dewatering Filtering Supervisor Relationship Specialty Start Date End Date Amalia Avery MD [address] [place], [place] [id number] PCP - General Family Medicine 11/16/21 Derek Brumfield MD [address] [facility] [[email or web address] [address] [place], [place] [id number] Cardiology 03/11/19 Team Status: Active Member Role Status Dates Dr. Luiz Avery MD Primary Care Provider Acti ve Dr. Rashid Hankins MD Attending Provider, Referring Pr ovider Active Team Status: Active Member Role Status Dates Dr. Luiz Avery MD Primary Care Provider Acti ve Dr. Sherry Matta DO Emergency Provider Active Dr. Willa Garcia MD Admit Provider, Other Provider Active Dr. Rashid Hankins MD Attending Provider , Referring Provider, Other Provider Active Dr. Deandre Lozano DO Other Provider Active Team Status: Inactive Member Role Status Dates Dr. Luiz Avery MD Primary Care Provider Acti ve Dr. Derek Brumfield MD Attending Provider Active Team Status: Active Member Role Status Dates Dr. Luiz Avery MD Primary Care Provider Acti ve Dr. Tino Lewis MD Emergency Provider Active Dr. Parker Bergman DO Admit Provider, Attending Pr ovider Active Team Status: Active Member Role Status Dates Dr. Luiz Avery MD Primary Care Provider Acti ve Dr. Tino Lewis MD Emergency Provider Active Dr. Parker Bergman DO Admit Provider, Other Provid er Active Dr. Deandre Lozano DO Attending Provider, Other Provid er Active Team Status: Active Member Role Status Dates Dr. Luiz Avery MD Primary Care Provider Acti ve Dr. Tino Lewis MD Emergency Provider Active Dr. Parker Bergman DO Admit Provider, Other Provid er Active Dr. Deandre Jopperi , DO Other Provider Active Dr. Rigoberto Morton , DO Attending Provider Active Team Status: Active Member Role Status Dates Dr. Luiz Avery MD Primary Care Provider Acti ve Dr. Tino Lewis MD Emergency Provider Active Dr. Parker Bergman , DO Admit Provider, Other Provid er Active Dr. Ciera Hurst , DO Other Provider Active Dr. Deandre Lozano , DO Other Provider Active Dr. Rigoberto Morton , DO Attending Provider Active Team Status: Active Member Role Status Dates Dr. Luiz Avery MD Primary Care Provider Acti ve Dr. Rigoberto Morton , DO Attending Provider Active Team Status: Active Member Role Status Dates Dr. Luiz Avery MD Primary Care Provider Acti ve Dr. Tino Lewis MD Emergency Provider Active Dr. Parker Bergman , DO Admit Provider, Other Provid er Active Dr. Ciera Hurst , DO Attending Provider, Other Pro vider Active Dr. Deandre Lozano , DO Other Provider Active Team Status: Inactive Member Role Status Dates Dr. Luiz Avery MD Primary Care Provider Acti ve Dr. Tino Lewis MD Emergency Provider Active Dr. Parker Bergman , DO Admit Provider, Other Provid er Active Dr. Ciera Hurst , DO Attending Provider Active Dr. Deandre Lozano , DO Other Provider Active Dewatering Filtering Supervisor Relationship Specialty Start Date End Date mAalia Avery MD [address] [place] [address] PCP - General Family Medicine 11/16/21 Derek Brumfield MD [address] [place] [address] Cardiology 03/11/19 Dewatering Filtering Supervisor Relationship Specialty Start Date End Date Amalia Avery MD [address] [place] [address] PCP - General Family Medicine 11/16/21 Derek Brumfield MD [address] [address] Cardiology 03/11/19 Team Status: Active Member Role Status Dates Dr. Luiz Aevry MD Primary Care Provider Acti ve Dr. Tino Lewis MD Emergency Provider Active Dr. Parker Bergman , DO Admit Provider, Other Provid er Active Dr. Deandre Lozano , DO Other Provider Active Dr. Rigoberto Morton , DO Attending Provider Active Dr. Ciera Hurst , DO Referring Provider Active Team Status: Active Member Role Status Dates Dr. Luiz Avery MD Primary Care Provider Acti ve Dr. Tino Lewis MD Emergency Provider Active Dr. Parker Bergman , DO Admit Provider, Other Provid er Active Dr. Ciera Hurst , DO Referring Provider, Other Pro vider Active Dr. Deandre Lozano , DO Other Provider Active Dr. Rigoberto Morton , DO Attending Provider Active Team Status: Active Member Role Status Dates Dr. Luiz Avery MD Primary Care Provider Acti ve Dr. Rigoberto Morton , DO Attending Provider Active Dr. Ciera Hurst , DO Referring Provider Active Dewatering Filtering Supervisor Relationship Specialty Start Date End Date Amalia Avery MD [address] [place] [address] PCP - General Family Medicine 11/16/21 Derek Brumfield MD [address] [address] Cardiology 03/11/19 Dewatering Filtering Supervisor Relationship Specialty Start Date End Date Amalia Avery MD [address] [place] [address] PCP - General Family Medicine 11/16/21 Derek Brumfield MD [address] [address] Cardiology 03/11/19 Dewatering Filtering Supervisor Relationship Specialty Start Date End Date Amalia Avery MD [address] [place] [address] PCP - General Family Medicine 11/16/21 Derek Brumfield MD [address] [address] Cardiology 03/11/19 Dewatering Filtering Supervisor Relationship Specialty Start Date End Date Amalia Avery MD [address] [place] [address] PCP - General Family Medicine 11/16/21 Derek Brumfield MD [address] [address] Cardiology 03/11/19 Dewatering Filtering Supervisor Relationship Specialty Start Date End Date Amalia Avery MD [address] [place] [address] PCP - General Family Medicine 11/16/21 Derek Brumfield MD [address] [address] Cardiology 03/11/19 Dewatering Filtering Supervisor Relationship Specialty Start Date End Date Amalia Avery MD [address] [place] [address] PCP - General Family Medicine 11/16/21 Derek Brumfield MD [address] [address] Cardiology 03/11/19 Dewatering Filtering Supervisor Relationship Specialty Start Date End Date Amalia Avery MD [address] [place] [address] PCP - General Family Medicine 11/16/21 Derek Brumfield MD [address] [place] [address], [place] [address] Cardiology 03/11/19 Team Status: Inactive Member Role Status Dates Dr. Luiz Avery MD Primary Care Provider Acti ve Dr. Christie Guzman DO Attending Provider Active Dewatering Filtering Supervisor Relationship Specialty Start Date End Date Amalia Avery MD [address] [place] [address] PCP - General Family Medicine 11/16/21 Derek Brumfield MD [address] [place] [address] Cardiology 03/11/19 Dewatering Filtering Supervisor Relationship Specialty Start Date End Date Amalia Avery MD [address] [place] [address] PCP - General Family Medicine 11/16/21 Derek Brumfield MD [address] [place] [address], [place] [address] Cardiology 03/11/19 Dewatering Filtering Supervisor Relationship Specialty Start Date End Date Amalia Avery MD [address] [place] [address] PCP - General Family Medicine 11/16/21 Derek Brumfield MD [address] [place] [address] Cardiology 03/11/19 Team Status: Inactive Member Role Status Dates Dr. Luiz Avery MD Primary Care Provider Chester Gonzalez SENIOR MOBILE DEVELOPER, SENIOR MOBILE DEVELOPER-C Attending Provider, Referring Pro vider Active Dewatering Filtering Supervisor Relationship Specialty Start Date End Date Amalia Avery MD [address] [place] [address] PCP - General Family Medicine 11/16/21 Derek Brumfield MD [address] [facility] [address] [place] [address] Cardiology 03/11/19 Dewatering Filtering Supervisor Relationship Specialty Start Date End Date Amalia Avery MD [address] [place] [address] PCP - General Family Medicine 11/16/21 Derek Brumfield MD [address] [place] [address] Cardiology 03/11/19 Dewatering Filtering Supervisor Relationship Specialty Start Date End Date Amalia Avery MD [address] [place] [address] PCP - General Family Medicine 11/16/21 Derek Brumfield MD [address] [facility] [address] [address] Cardiology 03/11/19 Dewatering Filtering Supervisor Relationship Specialty Start Date End Date Amalia Avery MD [address] [place] [address] PCP - General Family Medicine 11/16/21 Derek Brumfield MD [address] [place] [address] Cardiology 03/11/19 Dewatering Filtering Supervisor Relationship Specialty Start Date End Date Amalia Avery MD [address] [place] [address] PCP - General Family Medicine 11/16/21 Derek Brumfield MD [address] [place] [address] Cardiology 03/11/19 Dewatering Filtering Supervisor Relationship Specialty Start Date End Date Amalia Avery MD [address] [place] [address] PCP - General Family Medicine 11/16/21 Derek Brumfield MD [address] [place] [address] Cardiology 03/11/19 Dewatering Filtering Supervisor Relationship Specialty Start Date End Date Amalia vAery MD [address] [place] [address] PCP - General Family Medicine 11/16/21 Derek Brumfield MD [address] [address] Cardiology 03/11/19 PodSilvia garcia APRN.CNP [address] [place] [address] Plant [facility] Family [facility] 04/05/24 Dewatering Filtering Supervisor Relationship Specialty Start Date End Date Amalia Avery MD [address] [place] [address] PCP - General Family Medicine 11/16/21 Derek Brumfield MD [address] [place] [address] Cardiology 03/11/19 Podlogar, Silvia, PROFESSOR OF CHEMICAL ENGINEERING.BRANCH OFFICE MANAGER [address] [place] [address] Plant Assigner Family [facility] 04/05/24 Dewatering Filtering Supervisor Relationship Specialty Start Date End Date Amalia Avery MD [address] [place] [address] PCP - General Family Medicine 11/16/21 Derek Brumfield MD [address] [place] [address], [place] [address] Cardiology 03/11/19 Podlogar, Silvia, PROFESSOR OF CHEMICAL ENGINEERING.BRANCH OFFICE MANAGER [address] [place] [address] Plant Assigner [facility] 04/05/24 Dewatering Filtering Supervisor Relationship Specialty Start Date End Date Amalia Avery MD [address] [place] [address] PCP - General Family Medicine 11/16/21 Derek Brumfield MD [address] [place] [address] Cardiology 03/11/19 Podlogar, Silvia, PROFESSOR OF CHEMICAL ENGINEERING.BRANCH OFFICE MANAGER [address] [place] [address] Plant Assigner Family Medicine 04/05/24 Dewatering Filtering Supervisor Relationship Specialty Start Date End Date Amalia Avery MD [address] [place] [address] PCP - General Family Medicine 11/16/21 Derek Brumfield MD [address] [place] [address] Cardiology 03/11/19 Podlogar, Silvia, PROFESSOR OF CHEMICAL ENGINEERING.BRANCH OFFICE MANAGER [address] [place] [address] Plant Assigner Family [facility] 04/05/24 Jose Juan Lewis, signal personReliability Engineer 06/19/24 Dewatering Filtering Supervisor Relationship Specialty Start Date End Date Amalia Avery MD [address] [place] [address] PCP - General Family Medicine 11/16/21 Derek Brumfield MD [address] [place] [address], [place] [address] Cardiology 03/11/19 Podlogar, Silvia, PROFESSOR OF CHEMICAL ENGINEERING.BRANCH OFFICE MANAGER [address] [place] [address] Plant Assigner Family Medicine 04/05/24 Jose Juan Lewis, signal personReliability Engineer 06/19/24 Dewatering Filtering Supervisor Relationship Specialty Start Date End Date Amalia Avery MD [address] [place] [address] PCP - General Family Medicine 11/16/21 Derek Brumfield MD [address] [facility] [address] [place] [address] Cardiology 03/11/19 Podlogar, Silvia, PROFESSOR OF CHEMICAL ENGINEERING.BRANCH OFFICE MANAGER [address] [place] [address] Plant Assigner Family [facility] 04/05/24 Jose Juan Lewis, signal personReliability Engineer 06/19/24 Dewatering Filtering Supervisor Relationship Specialty Start Date End Date Amalia Avery MD [address] [place] [address] PCP - General Family Medicine 11/16/21 Derek Brumfield MD [address] [facility] [address] [place] [address] Cardiology 03/11/19 Podlogar, Silvia, PROFESSOR OF CHEMICAL ENGINEERING.BRANCH OFFICE MANAGER [address] [place] [address] [facility]24 Jose Juan Lewis, signal personReliability Engineer 06/19/24 Meghana Fabian, PROFESSOR OF CHEMICAL ENGINEERING.BRANCH OFFICE MANAGER [address] [place] [address] [facility] 07/[facility]/24 Team Status: Active Member Role Status Dates Dr. Luiz Avery MD Primary Care Provider Acti ve Team Status: Inactive Member Role Status Dates Dr. Luiz Avery MD Primary Care Provider Acti ve Start: May 09, 2024 End: May 09, 2024 Dr. Derek Brumfield MD Attending Provider Active S tart: May 09, 2024 End: May 09, 2024 Dr. Derek Brumfield MD Referring Provider Active S tart: May 09, 2024 End: May 09, 2024 Team Status: Inactive Member Role Status Dates Dr. Luiz Avery MD Primary Care Provider Acti ve Start: May 19, 2024 End: May 19, 2024 Dr. Luiz Avery MD Referring Provider Active Start: May 19, 2024 End: May 19, 2024 Dr. Rigoberto Mroton DO Attending Provider Active Start: May 19, 2024 End: May 19, 2024 Team Status: Inactive Member Role Status Dates Dr. Luiz Avery MD Primary Care Provider Acti ve Start: June 21, 2024 End: June 21, 2024 Dr. Christie Guzman DO Attending Provider Active Start: June 21, 2024 End: June 21, 2024 Dr. Christie Guzman DO Referring Provider Active Start: June 21, 2024 End: June 21, 2024 Team Status: Inactive Member Role Status Dates Dr. Luiz Avery MD Primary Care Provider Acti ve Start: June 26, 2024 End: June 26, 2024 Dr. Christie Guzman DO Attending Provider Active Start: June 26, 2024 End: June 26, 2024 Team Status: Inactive Member Role Status Dates Dr. Luiz Avery MD Primary Care Provider Acti ve Start: July 30, 2024 End: July 30, 2024 Kinga CRAWFORD, PA Attending Provider Active Start: July 30, 2024 End: July 30, 2024 Kinga Eubanks PA, PA Referring Provider Active Start: July 30, 2024 End: July 30, 2024 Dewatering Filtering Supervisor Relationship Specialty Start Date End Date Amalia Avery MD [address] [place] [address] PCP - General Family Medicine 11/16/21 Derek Brumfield MD [address] [id number] Cardiology 03/11/19 PodlogarSilvia APRN.CNP [address] [place], [place] [address] Plant Assigner [facility] 04/05/24 Jose Juan Lewis, signal personReliability Engineer 06/19/24 Team Status: Inactive Member Role Status Dates Dr. Luiz Avery MD Primary Care Provider Acti ve Start: August 08, 2024 End: August 08, 2024 Dr. Derek Brumfield MD Attending Provider Active S tart: August 08, 2024 End: August 08, 2024 Dr. Derek Brumfield MD Referring Provider Active S tart: August 08, 2024 End: August 08, 2024 Team Status: Inactive Member Role Status Dates Dr. Luiz Avery MD Primary Care Provider Acti ve Start: October 01, 2024 End: October 01, 2024 Dr. Luiz Avery MD Referring Provider Active Start: October 01, 2024 End: October 01, 2024 Bart Gonzalez SENIOR MOBILE DEVELOPER, SENIOR MOBILE DEVELOPER-C Attending Provider Active S tart: October 01, 2024 End: October 01, 2024 Team Status: Inactive Member Role Status Dates Dr. Luiz Avery MD Primary Care Provider Acti ve Start: October 01, 2024 End: October 01, 2024 Dr. Christie Guzman DO Attending Provider Active Start: October 01, 2024 End: October 01, 2024 Dr. Christie Guzman DO Referring Provider Active Start: October 01, 2024 End: October 01, 2024 Dewatering Filtering Supervisor Relationship Specialty Start Date End Date Amalia Avery MD [address] [place] [address] PCP - General Family Medicine 11/16/21 Derek Brumfield MD [address] [place] [id number] Cardiology 03/11/19 PodlogarSilvia APRN.BRANCH OFFICE MANAGER [address] [place], [place] [address] Plant Assigner Family [facility] 04/05/24 Jose Juan Lewis, signal personReliability Engineer 06/19/24 Meghana Fabian APRN.BRANCH OFFICE MANAGER [address] [place] [address] [facility] Family Medicine 10/09/24 Team Status: Active Member Role/Relationship Status Dates Dr. Luiz Avery MD Primary Care Provider Acti ve Team Status: Inactive Member Role/Relationship Status Dates Dr. Luiz Avery MD Primary Care Provider Acti ve Start: July 30, 2024 End: July 30, 2024 Kinga Eubanks PA, PA Attending Provider Active Start: July 30, 2024 End: July 30, 2024 Kinga Eubanks PA, PA Referring Provider Active Start: July 30, 2024 End: July 30, 2024 Team Status: Inactive Member Role/Relationship Status Dates Dr. Luiz Avery MD Primary Care Provider Acti ve Start: August 08, 2024 End: August 08, 2024 Dr. Derek Brumfield MD Attending Provider Active S tart: August 08, 2024 End: August 08, 2024 Dr. Derek Brumfield MD Referring Provider Active S tart: August 08, 2024 End: August 08, 2024 Team Status: Inactive Member Role/Relationship Status Dates Dr. Luiz Avery MD Primary Care Provider Acti ve Start: October 01, 2024 End: October 01, 2024 Dr. Luiz Avery MD Referring Provider Active Start: October 01, 2024 End: October 01, 2024 Bart Gonzalez SENIOR MOBILE DEVELOPER, SENIOR MOBILE DEVELOPER-C Attending Provider Active S tart: October 01, 2024 End: October 01, 2024 Team Status: Inactive Member Role/Relationship Status Dates Dr. Luiz Avery MD Primary Care Provider Acti ve Start: October 01, 2024 End: October 01, 2024 Dr. Christie Guzman DO Attending Provider Active Start: October 01, 2024 End: October 01, 2024 Dr. Christie Guzman DO Referring Provider Active Start: October 01, 2024 End: October 01, 2024 Team Status: Inactive Member Role/Relationship Status Dates Dr. Luiz Avery MD Primary Care Provider Acti ve Start: October 29, 2024 End: October 29, 2024 Dr. Luiz Avery MD Referring Provider Active Start: October 29, 2024 End: October 29, 2024 Bart H Roof SENIOR MOBILE DEVELOPER, SENIOR MOBILE DEVELOPER-C Attending Provider Active S tart: October 29, 2024 End: October 29, 2024 Team Status: Inactive Member Role/Relationship Status Dates Dr. Luiz Avery MD Primary Care Provider Acti ve Start: November 04, 2024 End: November 04, 2024 Dr. Luiz Avery MD Referring Provider Active Start: November 04, 2024 End: November 04, 2024 Dr. Rigoberto Morton DO Attending Provider Active Start: November 04, 2024 End: November 04, 2024 Team Status: Inactive Member Role/Relationship Status Dates Dr. Luiz Avery MD Primary Care Provider Acti ve Start: November 04, 2024 End: November 04, 2024 Dr. Rigoberto Morton DO Attending Provider Active Start: November 04, 2024 End: November 04, 2024 Dr. Rigoberto Morton DO Referring Provider Active Start: November 04, 2024 End: November 04, 2024 Team Status: Inactive Member Role/Relationship Status Dates Dr. Luiz Avery MD Primary Care Provider Acti ve Start: November 08, 2024 End: November 08, 2024 Dr. Derek Brumfield MD Attending Provider Active S tart: November 08, 2024 End: November 08, 2024 Team Status: Inactive Member Role/Relationship Status Dates Dr. Luiz Avery MD Primary Care Provider Acti ve Start: November 21, 2024 End: November 21, 2024 Kinga CRAWFORD PA Attending Provider Active Start: November 21, 2024 End: November 21, 2024 Kinga CRAWFORD PA Referring Provider Active Start: November 21, 2024 End: November 21, 2024 Dewatering Filtering Supervisor Relationship Specialty Start Date End Date Amalia Avery MD [address] [place], [place] [id number] PCP - General Family Medicine 11/16/21 Derek Brumfield MD [address] [id number] Cardiology 03/11/19 Podlogar, Silvia, PROFESSOR OF CHEMICAL ENGINEERING.BRANCH OFFICE MANAGER [address] [place] [address] [facility] 04/05/24 Meghana Fabian APRN.BRANCH OFFICE MANAGER [address] [place] [address] [facility] 10/09/24 Team Status: Inactive Member Role/Relationship Status Dates Dr. Luiz Avery MD Primary Care Provider Acti ve Start: August 08, 2024 End: August 08, 2024 Dr. Derek Brumfield MD Attending Provider Active S tart: August 08, 2024 End: August 08, 2024 Dr. Derek Brumfield MD Referring Provider Active S tart: August 08, 2024 End: August 08, 2024 Team Status: Inactive Member Role/Relationship Status Dates Dr. Luiz Avery MD Primary Care Provider Acti ve Start: October 01, 2024 End: October 01, 2024 Dr. Luiz Avery MD Referring Provider Active Start: October 01, 2024 End: October 01, 2024 Bart Gonzalez SENIOR MOBILE DEVELOPER, SENIOR MOBILE DEVELOPER-C Attending Provider Active S tart: October 01, 2024 End: October 01, 2024 Team Status: Inactive Member Role/Relationship Status Dates Dr. Luiz Avery MD Primary Care Provider Acti ve Start: October 01, 2024 End: October 01, 2024 Dr. Christie Guzman DO Attending Provider Active Start: October 01, 2024 End: October 01, 2024 Dr. Christie Guzman DO Referring Provider Active Start: October 01, 2024 End: October 01, 2024 Team Status: Inactive Member Role/Relationship Status Dates Dr. Luiz Avery MD Primary Care Provider Acti ve Start: October 29, 2024 End: October 29, 2024 Dr. Luiz Avery MD Referring Provider Active Start: October 29, 2024 End: October 29, 2024 Bart Gonzalez SENIOR MOBILE DEVELOPER, SENIOR MOBILE DEVELOPER-C Attending Provider Active S tart: October 29, 2024 End: October 29, 2024 Team Status: Inactive Member Role/Relationship Status Dates Dr. Luiz Avery MD Primary Care Provider Acti ve Start: November 04, 2024 End: November 04, 2024 Dr. Luiz Avery MD Referring Provider Active Start: November 04, 2024 End: November 04, 2024 Dr. Rigoberto Morton DO Attending Provider Active Start: November 04, 2024 End: November 04, 2024 Team Status: Inactive Member Role/Relationship Status Dates Dr. Luiz Avery MD Primary Care Provider Acti ve Start: November 04, 2024 End: November 04, 2024 Dr. Rigoberto Mroton DO Attending Provider Active Start: November 04, 2024 End: November 04, 2024 Dr. Rigoberto Morton DO Referring Provider Active Start: November 04, 2024 End: November 04, 2024 Team Status: Inactive Member Role/Relationship Status Dates Dr. Luiz Avery MD Primary Care Provider Acti ve Start: November 08, 2024 End: November 08, 2024 Dr. Derek Brumfield MD Attending Provider Active S tart: November 08, 2024 End: November 08, 2024 Dr. Derek Brumfield MD Referring Provider Active S tart: November 08, 2024 End: November 08, 2024 Team Status: Inactive Member Role/Relationship Status Dates Dr. Luiz Avery MD Primary Care Provider Acti ve Start: November 21, 2024 End: November 21, 2024 Kinga Eubanks PA, PA Attending Provider Active Start: November 21, 2024 End: November 21, 2024 Kinga Eubanks PA, PA Referring Provider Active Start: November 21, 2024 End: November 21, 2024 Team Status: Active Member Role/Relationship Status Dates Dr. Luiz Avery MD Primary Care Provider Acti ve Start: December 04, 2024 Dr. Derek Brumfield MD Attending Provider Active S tart: December 04, 2024 Dr. Derek Brumfield MD Referring Provider Active S tart: December 04, 2024 Team Status: Inactive Member Role/Relationship Status Dates Dr. Luiz Avery MD Primary Care Provider Acti ve Start: December 04, 2024 End: December 04, 2024 Dr. Luiz Avery MD Referring Provider Active Start: December 04, 2024 End: December 04, 2024 Dr. Derek Brumfield MD Attending Provider Active S tart: December 04, 2024 End: December 04, 2024 Team Status: Inactive Member Role/Relationship Status Dates Dr. Luiz Avery MD Primary Care Provider Acti ve Start: October 01, 2024 End: October 01, 2024 Dr. Luiz Avery MD Referring Provider Active Start: October 01, 2024 End: October 01, 2024 Bart Gonzalez SENIOR MOBILE DEVELOPER, SENIOR MOBILE DEVELOPER-C Attending Provider Active S tart: October 01, 2024 End: October 01, 2024 Team Status: Inactive Member Role/Relationship Status Dates Dr. Luiz Avery MD Primary Care Provider Acti ve Start: October 01, 2024 End: October 01, 2024 Dr. Christie Guzman DO Attending Provider Active Start: October 01, 2024 End: October 01, 2024 Dr. Christie Guzman DO Referring Provider Active Start: October 01, 2024 End: October 01, 2024 Team Status: Inactive Member Role/Relationship Status Dates Dr. Luiz Avery MD Primary Care Provider Acti ve Start: October 29, 2024 End: October 29, 2024 Dr. Luiz Avery MD Referring Provider Active Start: October 29, 2024 End: October 29, 2024 Bart Gonzalez SENIOR MOBILE DEVELOPER, SENIOR MOBILE DEVELOPER-C Attending Provider Active S tart: October 29, 2024 End: October 29, 2024 Team Status: Inactive Member Role/Relationship Status Dates Dr. Luiz Avery MD Primary Care Provider Acti ve Start: November 04, 2024 End: November 04, 2024 Dr. Luiz Avery MD Referring Provider Active Start: November 04, 2024 End: November 04, 2024 Dr. Rigoberto Morton DO Attending Provider Active Start: November 04, 2024 End: November 04, 2024 Team Status: Inactive Member Role/Relationship Status Dates Dr. Luiz Avery MD Primary Care Provider Acti ve Start: November 04, 2024 End: November 04, 2024 Dr. Rigoberto Morton DO Attending Provider Active Start: November 04, 2024 End: November 04, 2024 Dr. Rigoberto Morton DO Referring Provider Active Start: November 04, 2024 End: November 04, 2024 Team Status: Inactive Member Role/Relationship Status Dates Dr. Luiz Avery MD Primary Care Provider Acti ve Start: November 08, 2024 End: November 08, 2024 Dr. Derek Brumfield MD Attending Provider Active S tart: November 08, 2024 End: November 08, 2024 Dr. Derek Brumfield MD Referring Provider Active S tart: November 08, 2024 End: November 08, 2024 Team Status: Inactive Member Role/Relationship Status Dates Dr. Luiz Avery MD Primary Care Provider Acti ve Start: November 21, 2024 End: November 21, 2024 Kinga Eubanks PA, PA Attending Provider Active Start: November 21, 2024 End: November 21, 2024 Kinga Eubanks PA, PA Referring Provider Active Start: November 21, 2024 End: November 21, 2024 Team Status: Inactive Member Role/Relationship Status Dates Dr. Luiz Avery MD Primary Care Provider Acti ve Start: December 04, 2024 End: December 04, 2024 Dr. Derek Brumfield MD Attending Provider Active S tart: December 04, 2024 End: December 04, 2024 Dr. Derek Brumfield MD Referring Provider Active S tart: December 04, 2024 End: December 04, 2024 Team Status: Inactive Member Role/Relationship Status Dates Dr. Luiz Avery MD Primary Care Provider Acti ve Start: December 04, 2024 End: December 04, 2024 Dr. Luiz Avery MD Referring Provider Active Start: December 04, 2024 End: December 04, 2024 Dr. Derek Brumfield MD Attending Provider Active S tart: December 04, 2024 End: December 04, 2024 Dewatering Filtering Supervisor Relationship Specialty Start Date End Date Amalia Avery MD [address] [place] [address] PCP - General Family Medicine 11/16/21 Derek Brumfield MD [address] [id number] Cardiology 03/11/19 PodlogarSilvia APRN.CNP [address] [place], [place] [id number] [facility] 04/05/24 Meghana Fabian APRN.BRANCH OFFICE MANAGER [address] [place], [place] [id number] [facility] 10/09/24 Dewatering Filtering Supervisor Relationship Specialty Start Date End Date Amalia Avery MD [address] [place], [place] [id number] PCP - General Family Medicine 11/16/21 [place] [address] [place] [address] [id number] Cardiology 03/11/19 Podlogar, GRIS Vega.BRANCH OFFICE MANAGER [address] [place] [id number] [facility] 04/05/24 Meghana Fabian, PROFESSOR OF CHEMICAL ENGINEERING.BRANCH OFFICE MANAGER [address] [place] [address] [id number] [facility] 10/09/24 Team Status: Active Member Role/Relationship Status Dates Dr. Luiz Avery MD Primary care physician Act duglas Team Status: Inactive Member Role/Relationship Status Dates Dr. Luiz Avery MD Primary care physician Act duglas Start: October 01, 2024 End: October 01, 2024 Dr. Luiz Avery MD Referring Provider Active Start: October 01, 2024 End: October 01, 2024 Bart Gonzalez SENIOR MOBILE DEVELOPER, SENIOR MOBILE DEVELOPER-C Attending physician Active Start: October 01, 2024 End: October 01, 2024 Team Status: Inactive Member Role/Relationship Status Dates Dr. Luiz Avery MD Primary care physician Act duglas Start: October 01, 2024 End: October 01, 2024 Dr. Christie Guzman DO Attending physician Active Start: October 01, 2024 End: October 01, 2024 Dr. Christie Guzman DO Referring Provider Active Start: October 01, 2024 End: October 01, 2024 Team Status: Inactive Member Role/Relationship Status Dates Dr. Luiz Avery MD Primary care physician Act duglas Start: October 29, 2024 End: October 29, 2024 Dr. Luiz Avery MD Referring Provider Active Start: October 29, 2024 End: October 29, 2024 Bart Gonzalez SENIOR MOBILE DEVELOPER, SENIOR MOBILE DEVELOPER-C Attending physician Active Start: October 29, 2024 End: October 29, 2024 Team Status: Inactive Member Role/Relationship Status Dates Dr. Luiz Avery MD Primary care physician Act duglas Start: November 04, 2024 End: November 04, 2024 Dr. Luiz Avery MD Referring Provider Active Start: November 04, 2024 End: November 04, 2024 Dr. Rigoberto Morton DO Attending physician Active Start: November 04, 2024 End: November 04, 2024 Team Status: Inactive Member Role/Relationship Status Dates Dr. Luiz Avery MD Primary care physician Act duglas Start: November 04, 2024 End: November 04, 2024 Dr. Rigoberto Morton DO Attending physician Active Start: November 04, 2024 End: November 04, 2024 Dr. Rigoberto Morton DO Referring Provider Active Start: November 04, 2024 End: November 04, 2024 Team Status: Inactive Member Role/Relationship Status Dates Dr. Luiz Avery MD Primary care physician Act duglas Start: November 08, 2024 End: November 08, 2024 Dr. Derek Brumfield MD Attending physician Active Start: November 08, 2024 End: November 08, 2024 Dr. Derek Brumfield MD Referring Provider Active S tart: November 08, 2024 End: November 08, 2024 Team Status: Inactive Member Role/Relationship Status Dates Dr. Luiz Avery MD Primary care physician Act duglas Start: November 21, 2024 End: November 21, 2024 Kinga Eubanks PA, PA Attending physician Active Start: November 21, 2024 End: November 21, 2024 Kinga Eubanks PA, PA Referring Provider Active Start: November 21, 2024 End: November 21, 2024 Team Status: Inactive Member Role/Relationship Status Dates Dr. Luiz Avery MD Primary care physician Act duglas Start: December 04, 2024 End: December 04, 2024 Dr. Derek Brumfield MD Attending physician Active Start: December 04, 2024 End: December 04, 2024 Dr. Derek Brumfield MD Referring Provider Active S tart: December 04, 2024 End: December 04, 2024 Team Status: Inactive Member Role/Relationship Status Dates Dr. Luiz Avery MD Primary care physician Act duglas Start: December 04, 2024 End: December 04, 2024 Dr. Luiz Avery MD Referring Provider Active Start: December 04, 2024 End: December 04, 2024 Dr. Derek Brumfield MD Attending physician Active Start: December 04, 2024 End: December 04, 2024 Team Status: Inactive Member Role/Relationship Status Dates Dr. Luiz Avery MD Primary care physician Act duglas Start: January 07, 2025 End: January 07, 2025 Dr. Christie Guzman DO Attending physician Active Start: January 07, 2025 End: January 07, 2025 Dr. Christie Guzman DO Referring Provider Active Start: January 07, 2025 End: January 07, 2025 Team Status: Inactive Member Role/Relationship Status Dates Dr. Luiz Avery MD Primary care physician Act duglas Start: January 19, 2025 End: January 19, 2025 Dr. Luiz Avery MD Referring Provider Active Start: January 19, 2025 End: January 19, 2025 Heather Canseco Attending physician Active Start: January 19, 2025 End: January 19, 2025 Team Status: Inactive Member Role/Relationship Status Dates Dr. Luiz Avery MD Primary care physician Act duglas Start: January 20, 2025 End: January 20, 2025 Dr. Derek Brumfield MD Attending physician Active Start: January 20, 2025 End: January 20, 2025 Team Status: Inactive Member Role/Relationship Status Dates Dr. Luiz Avery MD Primary care physician Act duglas Start: October 29, 2024 End: October 29, 2024 Dr. Luiz Avery MD Referring Provider Active Start: October 29, 2024 End: October 29, 2024 Bart Gonzalez SENIOR MOBILE DEVELOPER, SENIOR MOBILE DEVELOPER-C Attending physician Active Start: October 29, 2024 End: October 29, 2024 Team Status: Inactive Member Role/Relationship Status Dates Dr. Luiz Avery MD Primary care physician Act duglas Start: November 04, 2024 End: November 04, 2024 Dr. Luiz Avery MD Referring Provider Active Start: November 04, 2024 End: November 04, 2024 Dr. Rigoberto Morton DO Attending physician Active Start: November 04, 2024 End: November 04, 2024 Team Status: Inactive Member Role/Relationship Status Dates Dr. Luiz Avery MD Primary care physician Act duglas Start: November 04, 2024 End: November 04, 2024 Dr. Rigoberto Morton DO Attending physician Active Start: November 04, 2024 End: November 04, 2024 Dr. Rigoberto Morton DO Referring Provider Active Start: November 04, 2024 End: November 04, 2024 Team Status: Inactive Member Role/Relationship Status Dates Dr. Luiz Avery MD Primary care physician Act dulgas Start: November 08, 2024 End: November 08, 2024 Dr. Derek Brumfield MD Attending physician Active Start: November 08, 2024 End: November 08, 2024 Dr. Derek Brumfield MD Referring Provider Active S tart: November 08, 2024 End: November 08, 2024 Team Status: Inactive Member Role/Relationship Status Dates Dr. Luiz Avery MD Primary care physician Act duglas Start: November 21, 2024 End: November 21, 2024 Kinga CRAWFORD PA Attending physician Active Start: November 21, 2024 End: November 21, 2024 Kinga CRAWFORD PA Referring Provider Active Start: November 21, 2024 End: November 21, 2024 Team Status: Inactive Member Role/Relationship Status Dates Dr. Luiz Avery MD Primary care physician Act duglas Start: December 04, 2024 End: December 04, 2024 Dr. Derek Brumfield MD Attending physician Active Start: December 04, 2024 End: December 04, 2024 Dr. Derek Brumfield MD Referring Provider Active S tart: December 04, 2024 End: December 04, 2024 Team Status: Inactive Member Role/Relationship Status Dates Dr. Luiz Avery MD Primary care physician Act duglas Start: December 04, 2024 End: December 04, 2024 Dr. Luiz Avery MD Referring Provider Active Start: December 04, 2024 End: December 04, 2024 Dr. Derek Brumfield MD Attending physician Active Start: December 04, 2024 End: December 04, 2024 Team Status: Inactive Member Role/Relationship Status Dates Dr. Luiz Avery MD Primary care physician Act duglas Start: January 07, 2025 End: January 07, 2025 Dr. Christie Guzman DO Attending physician Active Start: January 07, 2025 End: January 07, 2025 Dr. Christie Guzman DO Referring Provider Active Start: January 07, 2025 End: January 07, 2025 Team Status: Inactive Member Role/Relationship Status Dates Dr. Luiz Avery MD Primary care physician Act duglas Start: January 19, 2025 End: January 19, 2025 Dr. Derek Brumfield MD Attending physician Active Start: January 19, 2025 End: January 19, 2025 Dr. Derek Brumfield MD Referring Provider Active S tart: January 19, 2025 End: January 19, 2025 Team Status: Inactive Member Role/Relationship Status Dates Dr. Luiz Avery MD Primary care physician Act duglas Start: January 20, 2025 End: January 20, 2025 Dr. Derek Brumfield MD Attending physician Active Start: January 20, 2025 End: January 20, 2025 Dr. Derek Brumfield MD Referring Provider Active S tart: January 20, 2025 End: January 20, 2025 Team Status: Inactive Member Role/Relationship Status Dates Dr. Luiz Avery MD Primary care physician Act duglas Start: January 20, 2025 End: January 20, 2025 Dr. Derek Brumfield MD Attending physician Active Start: January 20, 2025 End: January 20, 2025 Team Status: Inactive Member Role/Relationship Status Dates Dr. Luiz Avery MD Primary care physician Act duglas Start: February 03, 2025 End: February 03, 2025 Dr. Christie Guzman DO Attending physician Active Start: February 03, 2025 End: February 03, 2025 Dr. Christie Guzman DO Referring Provider Active Start: February 03, 2025 End: February 03, 2025 Team Status: Inactive Member Role/Relationship Status Dates Dr. Luiz Avery MD Primary care physician Act duglas Start: November 04, 2024 End: November 04, 2024 Dr. Luiz Avery MD Referring Provider Active Start: November 04, 2024 End: November 04, 2024 Dr. Rigoberto Morton DO Attending physician Active Start: November 04, 2024 End: November 04, 2024 Team Status: Inactive Member Role/Relationship Status Dates Dr. Luiz Avery MD Primary care physician Act duglas Start: November 04, 2024 End: November 04, 2024 Dr. Rigoberto Morton DO Attending physician Active Start: November 04, 2024 End: November 04, 2024 Dr. Rigoberto Morton DO Referring Provider Active Start: November 04, 2024 End: November 04, 2024 Team Status: Inactive Member Role/Relationship Status Dates Dr. Luiz Avery MD Primary care physician Act duglas Start: November 08, 2024 End: November 08, 2024 Dr. Derek Brumfield MD Attending physician Active Start: November 08, 2024 End: November 08, 2024 Dr. Derek Brumfield MD Referring Provider Active S tart: November 08, 2024 End: November 08, 2024 Team Status: Inactive Member Role/Relationship Status Dates Dr. Luiz Avery MD Primary care physician Act duglas Start: November 21, 2024 End: November 21, 2024 Kinga CRAWFORD PA Attending physician Active Start: November 21, 2024 End: November 21, 2024 Kinga CRAWFORD, PA Referring Provider Active Start: November 21, 2024 End: November 21, 2024 Team Status: Inactive Member Role/Relationship Status Dates Dr. Luiz Avery MD Primary care physician Act duglas Start: December 04, 2024 End: December 04, 2024 Dr. Derek Brumfield MD Attending physician Active Start: December 04, 2024 End: December 04, 2024 Dr. Derek Brumfield MD Referring Provider Active S tart: December 04, 2024 End: December 04, 2024 Team Status: Inactive Member Role/Relationship Status Dates Dr. Luiz Avery MD Primary care physician Act duglas Start: December 04, 2024 End: December 04, 2024 Dr. Luiz Avery MD Referring Provider Active Start: December 04, 2024 End: December 04, 2024 Dr. Derek Brumfield MD Attending physician Active Start: December 04, 2024 End: December 04, 2024 Team Status: Inactive Member Role/Relationship Status Dates Dr. Luiz Avery MD Primary care physician Act duglas Start: January 07, 2025 End: January 07, 2025 Dr. Christie Guzman DO Attending physician Active Start: January 07, 2025 End: January 07, 2025 Dr. Christie Guzman DO Referring Provider Active Start: January 07, 2025 End: January 07, 2025 Team Status: Inactive Member Role/Relationship Status Dates Dr. Luiz Avery MD Primary care physician Act duglas Start: January 19, 2025 End: January 19, 2025 Dr. Derek Brumfield MD Attending physician Active Start: January 19, 2025 End: January 19, 2025 Dr. Derek Brumfield MD Referring Provider Active S tart: January 19, 2025 End: January 19, 2025 Team Status: Inactive Member Role/Relationship Status Dates Dr. Luiz Avery MD Primary care physician Act duglas Start: January 20, 2025 End: January 20, 2025 Dr. Derek Brumfield MD Attending physician Active Start: January 20, 2025 End: January 20, 2025 Dr. Derek Brumfield MD Referring Provider Active S tart: January 20, 2025 End: January 20, 2025 Team Status: Inactive Member Role/Relationship Status Dates Dr. Luiz Avery MD Primary care physician Act duglas Start: January 20, 2025 End: January 20, 2025 Dr. Derek Brumfield MD Attending physician Active Start: January 20, 2025 End: January 20, 2025 Team Status: Inactive Member Role/Relationship Status Dates Dr. Luiz Avery MD Primary care physician Act duglas Start: February 03, 2025 End: February 03, 2025 Dr. Christie Guzman DO Attending physician Active Start: February 03, 2025 End: February 03, 2025 Dr. Christie Guzman DO Referring Provider Active Start: February 03, 2025 End: February 03, 2025 Goals (unrecognized section and content) Goals may be documented in a n alternate sectionGoals may be documented in an alternate sectionGoals may be documented in an alternate sectionGoals may be documented in an alternate sectionGoals may be documented in an alternate sectionGoals may be documented in an alternate sectionGoals may be documented in an alternate sectionGoals may be documented in an alternate sectionGoals may be documented in an alternate sectionGoals may be documented in an alternate sectionGoals may be documented in an alternate sectionGoals may be documented in an alternate sectionGoals may be documented in an alternate sectionGoals may be documented in an alternate sectionGoals may be documented in an alternate sectionGoals may be documented in an alternate sectionGoals may be documented in an alternate sectionGoals may be documented in an alternate sectionGoals may be documented in an alternate sectionGoals may be documented in an alternate sectionGoals may be documented in an alternate sectionGoals may be documented in an alternate sectionGoals may be documented in an alternate section Scheduled Active and Recently Administ ered Medications (unrecognized section and content) Medication Order 12/28/2022 12/29/2022 12/30/2022 apixaban (Eliquis) tablet 5 mg 5 mg, Oral, 2 times daily, First dose on 12/20/22 at 1145, Anticoagulant 0804 (Given - Provider: Parker Mari RN)2003 (Given - Provider: Jessy Malik RN) 0902 (Given - Provider: Alicia Laurent RN)193 (Given - Provider: Jessy Malik RN) 0840 (Given - Provider: Lisa Bustamante RN) aspirin chewable tablet 81 mg 81 mg, Oral, Daily, First dose on 12/16/22 at 0900 0804 (Given - Provider: Parker Mari RN) 0902 (Given - Provider: Alicia Laurent RN) 0840 (Given - Provider: Lisa Bustamante, MANAS) dapagliflozin (Farxiga) tablet 10 mg 10 mg, Oral, Daily, First dose on Katey 12/21/22 at 0900 0804 (Given - Provider: Parker Mari RN) 0902 (Given - Provider: Alicia Laurent RN) 0840 (Given - Provider: Lisa Bustamante RN) difluprednate (Durezol) 0.05 % ophthalmic solution 1 drop 1 drop, Left Eye, Every other day, First dose on 12/17/22 at 0900, Instill one drop into left eye every other day, Drug Name: Difluprednate Ophthalmic Emulsion 0.05%, Form: solution, Length of Therapy: Indefinite, How soon needed? (normally 72 hrs needed to procure): 0-24 hrs, Reason for Non-Formulary: Not on [facility] formulary 09 (Given - Provider: Alicia Laurent RN) erythromycin (Romycin) 5 MG/GM ophthalmic ointment Left Eye, Nightly, First dose on 12/16/22 at 2100, Instill a small amount of ointment into left eye at bedtime, Drug Name: Erythromycin Ophthalmic Ointment GROUP [facility], Form: ointment, Length of Therapy: Indefinite, How soon needed? (normally 72 hrs needed to procure): 0-24 hrs, Reason for Non-Formulary: not [facility] 2003 (Given - Provider: Jessy Malik RN) 1934 (Given - Provider: Jessy Malik RN) furosemide (Lasix) tablet 40 mg 40 mg, Oral, Daily, First dose on Katey 12/21/22 at 0900 0804 (Given - Provider: Parker Mari RN) 0902 (Given - Provider: Alicia Laurent RN) 0840 (Given - Provider: Lisa Bustamante RN) metoprolol succinate XL (Toprol-XL) 24 hr tablet 50 mg 50 mg, Oral, Daily, First dose (after last modification) on Sun12/22/22 at 2100, Do not crush or chew. 2003 (Given - Provider: Jessy Malik RN) 1934 (Given - Provider: Jessy Malik RN) pantoprazole (ProtoNix) 40 mg in sodium chloride (PF) 0.9 % 10 mL injection 40 mg, IntraVENous, Administer over 2 Minutes, Daily before breakfast, First dose on 12/18/22 at 0700, Reconstitute with 10 ml NS. Vial expires 2 hrs after reconstitution. 0531 (Given - Provider: Jessy Malik RN) 0518 (Given - Provider: Jessy Malik RN) 0528 (Given - Provider: Jessy Malik RN) polyethylene glycol (PEG) 3350 (Miralax) packet 17 g 17 g, Oral, Daily, First dose on Sun12/14/22 at 1315, Phase II/On Unit, Bowel Regimen - for prevention of constipation. 0900 (Dose Auto Held) 0900 (Dose Auto Held) 0900 (Dose Auto Held)1703 (Unheld by provider - Provider: Automatic Discharge Provider) potassium chloride (Klor-Con) packet 20 mEq 20 mEq, Oral, 2 times daily, First dose on Sun12/20/22 at 0900, Dissolve each packet in 4 ounces of water = 5 mEq per 1 oz fluid. 0804 (Given - Provider: Parker Mari RN)2003 (Given - Provider: Jessy Malik RN) 901 (Given - Provider: Alicia Laurent RN)1933 (Given - Provider: Jessy Malik RN) 08 (Given - Provider: Lisa Bustamante RN) rosuvastatin (Crestor) tablet 40 mg 40 mg, Oral, Daily, First dose on Sun12/15/22 at 2100 2003 (Given - Provider: Jessy Malik RN) 1934 (Given - Provider: Jessy Malik RN) sacubitril-valsartan (Entresto) 24-26 MG per tablet 1 tablet 1 tablet, Oral, 2 times daily, First dose on Sun12/20/22 at 2100, Hold for SBP<90 Contraindicated in combination with REMI inhibitors. Ensure a minimum of 36 hours between any REMI inhibitor dose and sacubitril-valsartan. 0804 (Given - Provider: Parker Mari RN)2003 (Given - Provider: Jessy Malik RN) 901 (Given - Provider: Alicia Laurent RN)1933 (Given - Provider: Jessy Malik RN) 0839 (Given - Provider: iLsa Bustamante RN) senna-docusate sodium (Senokot-S) 8.6-50 MG tablet 2 tablet 2 tablet, Oral, Nightly, First dose on Sun12/14/22 at 2100, Phase II/On Unit, Bowel Regimen - for prevention of constipation. 2003 (Given - Provider: Jessy Malik RN) 1933 (Given - Provider: Jessy Malik RN) sodium chloride 0.9% (NS) flush 10 mL 10 mL, IntraVENous, Every 12 hours scheduled (2 times per day), First dose on Sun12/14/22 at 2100, Phase II/On Unit 08 (Given - Provider: Parker Mari RN)2029 (Given - Provider: Jessy Malik RN) 09 (Given - Provider: Alicia Laurent RN)2029 (Given - Provider: Jessy Malik RN) 0839 (Given - Provider: Lisa Bustamante RN) spironolactone (Aldactone) tablet 25 mg 25 mg, Oral, Daily, First dose on Sun12/21/22 at 0900 0804 (Given - Provider: Parker Mari RN) 09 (Given - Provider: Alicia Laurent RN) 0840 (Given - Provider: Lisa Bustamante RN) timolol (Timoptic) 0.5 % ophthalmic solution 1 drop 1 drop, Left Eye, 2 times daily, First dose on Sun12/16/22 at 1115 0803 (Given - Provider: Parker Mari RN)2003 (Given - Provider: Jessy Malik RN) 902 (Given - Provider: Alicia Laurent RN)193 (Given - Provider: Jessy Malik RN) 0840 (Given - Provider: Lisa Bustamante RN) PRN Medication Order 12/28/2022 12/29/2022 12/30/2022 acetaminophen (Tylenol) tablet 1,000 mg 1,000 mg, Oral, Every 8 hours PRN, mild pain (1-3), Starting on Sun12/27/22 at 1030 calcium gluconate 2000 mg in 100 mL IVPB premix 2,000 mg, IntraVENous, at 50 mL/hr, Administer over 2 Hours, PRN, ionized calcium less than 4.3, Starting on Sun12/14/22 at 1310, Phase II/On Unit, Give 2000 mg for ionized calcium less than 4.3 premix bag dextrose 5 % infusion 100 mL/hr, IntraVENous, PRN, Blood sugar less than 70mg/dL, Starting on Sun12/14/22 at 1310, Phase II/On Unit, Start infusion following administration of dextrose 50% or glucagon. dextrose 50 % solution 12.5 g 12.5 g, IntraVENous, PRN, low blood sugar, Blood glucose less than 70 mg/dL and patient NOT ALERT or NPO., Starting on Sun12/14/22 at 1310, Phase II/On Unit, If patient [...] does not have IV access., Starting on Sun12/14/22 at 1310, Phase II/On Unit, After administration, attempt intravenous access and start D5W at 100 mL/hr. Repeat blood glucose in 15 minutes x2 and notify provider. glucose oral gel 15 g 15 g, Oral, As needed, low blood sugar, Starting on Sun12/14/22 at 1310, Phase II/On Unit, If blood [...] needed, wheezing, shortness of breath, Starting on Sun12/14/22 at 1310, Phase II/On Unit magnesium hydroxide (Milk of Magnesia) 400 MG/5ML suspension 30 mL 30 mL, Oral, Daily PRN, constipation, Starting on Katey 12/14/22 at 1310, Phase II/On Unit, 1st line for treatment of constipation - give scheduled if no bowel movement in past 24 hours magnesium sulfate IVPB 4,000 mg(Linked Group 1) 4,000 mg, IntraVENous, at 25 mL/hr, Administer over 4 Hours, As needed, Per Magnesium Replacement Protocol, Starting on Katey 12/14/22 at 1310, Phase II/On Unit, Mg Lab [...] Katey 12/14/22 at 1310, Phase II/On Unit, Mg Lab [...] hours PRN, moderate pain (4-6), Starting on Sun12/14/22 at 1310, Phase II/On Unit potassium chloride [...] Starting on Sun12/14/22 at 1310, Phase II/On Unit
Mg Lab [...] Starting on Sun12/14/22 at 1310, Phase II/On Unit
Mg Lab [...] BE BASED ON THE PRIMARY CLINICAL RECORDS. [facility]. provides no warranty or guarantee of the accuracy or completeness of information in this document.
[2025-04-24 11:49] LABS: Anion Gap 9 (7-18); BUN 22 mg/dL (4-19); BUN/Creat Ratio 13.0 RATIO (10-20); Calcium,Total 9.3 mg/dL (7.6-11.0); Carbon Dioxide 26.8 mmol/L (20.0-29.0); Chloride 102 mmol/L (96-106); Glucose 91 mg/dL (70-99); Potassium 4.3 mmol/L (3.5-5.1)
== END | disposition home or self-care (01) ==
LOC: LAB 10:45
PROVIDERS: PCP Family Medicine; Referring Provider Physician Assistant Medical; Visit Provider Physician Assistant Medical
DX: I50.32 Chronic diastolic (congestive) heart failure (principal)
CPT/HCPCS: 36415; 80048